=== PATIENT | female | born 1960 | race Caucasian/White ===

== ENCOUNTER 2023-03-24 12:40 | Outpatient (OUT) | payer OTHER, SELFPAY ==
[2023-03-24 17:20] LABS: Free T4 1.27 ng/dL (0.76-1.46)
[2023-03-24 17:22] LABS: Alanine Aminotransferase 15 U/L (14-59); Albumin Globulin Ratio 0.7; Albumin Level 3.2 g/dL (3.4-5.0); Alkaline Phosphatase 167 U/L (46-116); Aspartate Amino Transferase 15 U/L (15-37); Bilirubin Direct 0.1 mg/dL (0.0-0.2); Bilirubin Total 0.4 mg/dL (0.2-1.0); Globulin 4.4 g/dL; Thyroid Stimulating Hormone 2.628 uIU/mL (0.358-3.740); Total Protein 7.6 g/dL (6.4-8.2)
[2023-03-26 05:07] LABS: HBsAg Screen Negative (Negative); HCV Ab Non Reactive (Non Reactive); Hep A Ab, IgM Negative (Negative); Hep B Core Ab, IgM Negative (Negative)
== END 2023-03-24 12:41 | disposition home or self-care (01) ==
PROVIDERS: PCP Nurse Practitioner; Visit Provider Nurse Practitioner
DX: R74.8 Abnormal levels of other serum enzymes (principal); E03.9 Hypothyroidism, unspecified; Z20.5 Contact with and (suspected) exposure to viral hepatitis
CPT/HCPCS: 36415; 80074; 80076; 84439; 84443

== ENCOUNTER 2023-04-05 08:38 | Outpatient (OUT) | payer OTHER, SELFPAY ==
--- NOTE | 2023-04-05 08:41 | US_ITS ---
The [address] [address] Patient Name: FAUSTO KRISHNAMURTHY MRN: [id number] date: 1960 Sex: F Assigned Patient Location: US Current Patient Location: US Accession/Order Number: [id number] Exam Date: 04/05/2023 08:45 Report Date: 04/05/2023 10:21 At the request of: KATINA CORDON Procedure: US right upper quadrant EXAMINATION: US right upper quadrant HISTORY: Elevated Alkaline Phosphatase Level R74.8 COMPARISON: No relevant comparison available. TECHNIQUE: Transabdominal evaluation of the right upper quadrant. FINDINGS: LIVER: Normal size and echotexture. Color Doppler demonstrates patent hepatic veins. PORTAL VEIN: Duplex Doppler demonstrates normal hepatopetal flow pattern with flow velocity averaging 24 cm/s. GALLBLADDER: Cholecystectomy. BILIARY: No abnormal dilation or stones. Common bile duct diameter is within normal limits. PANCREASE: No visible mass, abnormal atrophy, or duct dilation. KIDNEY: No hydronephrosis. No visible mass or stones. Size: 10.2 x 4.7 x 4.9 cm IMPRESSION: 1. Unremarkable post cholecystectomy right upper quadrant ultrasound. Electronically authenticated by: HANNAH MOORE Date: 04/05/2023 10:21
== END 2023-04-05 08:39 | disposition home or self-care (01) ==
LOC: US 08:39
PROVIDERS: PCP Nurse Practitioner; Visit Provider Nurse Practitioner
DX: R74.8 Abnormal levels of other serum enzymes (principal); Z90.49 Acquired absence of other specified parts of digestive tract
CPT/HCPCS: 76705

== ENCOUNTER 2023-06-03 10:10 | Outpatient (REF) | payer OTHER, SELFPAY ==
[2023-06-03 15:14] LABS: SARS-CoV-2 Ag NEGATIVE (NEGATIVE)
[2023-06-03 15:28] LABS: Influenza Virus A Antigen Negative; Influenza Virus B Antigen Negative; Internal Control Within Normal Limits
[2023-06-03 19:03] LABS: SARS-CoV-2 NAA NOT DETECTED (NOT DETECTE)
== END 2023-06-03 10:11 | disposition home or self-care (01) ==
LOC: LAB 10:10
PROVIDERS: PCP Nurse Practitioner; Visit Provider Internal Medicine
DX: R05.1 Acute cough (principal)
CPT/HCPCS: 87635; 87804; 87811; U0003

== ENCOUNTER 2023-09-06 12:44 | Outpatient (REF) | payer OTHER, SELFPAY ==
[2023-09-06 14:27] LABS: SARS-CoV-2 Ag NEGATIVE (NEGATIVE)
[2023-09-06 15:55] LABS: SARS-CoV-2 NAA NOT DETECTED (NOT DETECTE)
--- OUTSIDE RECORDS SUMMARY | 2023-09-15 05:27 | XMS_ITS | CCD ---
Author Name Unknown Address [id number] [place] [address] Organization [facility] Care Team Providers Care Manager Transportation Planning Name Role Phone YANELIS, ESEQUIEL C Unavailable Unavailable ZAID MICHAELS Unavailable Unavail able YANELIS, ESEQUIEL C Unavailable Unavailable YANELIS, ESEQUIEL C Unavailable Unavailable YANELIS, ESEQUIEL C Unavailable Unavailable IVAN HYDE) Unavailable Unavail able IVAN HYDE) Unavailable Unavail able RIVERA PATRICIA) Unavailable Unavailable YANELIS, ESEQUIEL C Unavailable Unavailable YANELIS, ESEQUIEL C Unavailable Unavailable THOMAS DELGADILLO Unavailable Unavailable IMCA Unavailable Unavailable THOMAS DELGADILLO Unavailable Unavailable IMCA Unavailable Unavailable Aguila Malagon Unavailable Unavailable THOMAS DELGADILLO Unavailable Unavailable THOMAS DELGADILLO Unavailable Unavailable Aguila Malagon Unavailable Unavailable THOMAS DELGADILLO Unavailable Unavailmaddie Mills MD, [facility] Primary Care Provider ROSS, DARA Primary Care Unavailable ROSS, DARA Primary Care Unavailable ROSS, DARA Primary Care Unavailable ROSS, DARA Primary Care Unavailable ROSS, DARA Primary Care Unavailable RAFAEL WASHINGTON Referring Unavailab le ROSS, DARA Primary Care Unavailable ROSS, DARA Primary Care Unavailable ROSS, DARA Primary Care Unavailable ROSS, DARA Primary Care Unavailable ROSS, DARA Primary Care Unavailable ROSS, DARA Primary Care Unavailable ROSS, DARA Primary Care Unavailable ROSS, DARA Primary Care Unavailable ROSS, DARA Primary Care Unavailable ROSS, DARA Primary Care Unavailable ROSS, DARA Primary Care Unavailable ROSS, DARA Primary Care Unavailable ROSS, DARA Primary Care Unavailable ROSS, DARA Primary Care Unavailable ROSS, DARA Primary Care Unavailable ROSS, DARA Primary Care Unavailable ROSS, DARA Primary Care Unavailable ROSS, DARA Primary Care Unavailable RAFAEL WASHINGTON Referring Unavailab le ROSS, DARA Primary Care Unavailable ROSS, DARA Primary Care Unavailable Dara Mills Unavailable Unavailable Unavailable Aichholkali, Veronique Randee Unavailable Felix, Dr. Rafael Acevedo Attending [place], Dr. Rafael Acevedo Referring [place], Dr. Dara Chino Primary Care Unavailab citlalli [place], Dr. Rafael Acevedo Attending [place], Dr. Dara Chino Primary Care Unavailab citlalli [place], Dr. Rafael Acevedo Attending [facility] pablo [place], Dr. Rafael Acevedo Referring [place], Dr. Dara Chino Primary Care Unavailab le SAMSA ., OLIVER Admitting Unavailable SAMSA ., OLIVER Attending Unavailable AICHHOLZ, ACCOUNTANT SYSTEMS VERONIQUE Primary Care Unavailable DR HANNAH MOORE Consulting Unavailable SAMSA ., OLIVER Consulting Unavailable AICHHOLZ, ACCOUNTANT SYSTEMS VERONIQUE Admitting Unavailable AICHHOLZ, ACCOUNTANT SYSTEMS VERONIQUE Attending Unavailable AICHHOLZ, ACCOUNTANT SYSTEMS VERONIQUE Primary Care Unavailable AICHHOLZ, ACCOUNTANT SYSTEMS VERONIQUE Consulting Unavailable AICHHOLZ, ACCOUNTANT SYSTEMS VERONIQUE Admitting Unavailable AICHHOLZ, ACCOUNTANT SYSTEMS VERONIQUE Attending Unavailable AICHHOLZ, ACCOUNTANT SYSTEMS VERONIQUE Primary Care Unavailable AICHHOLZ, ACCOUNTANT SYSTEMS VERONIQUE Consulting Unavailable AICHHOLZ, ACCOUNTANT SYSTEMS VERONIQUE Primary Care Unavailable MARIANO SAAB Admitting Unavailable MARIANO SAAB Attending Unavailable SHILA CALLOWAY Consulting Unavailabl e Allergies Allergy Classification Reported Allergen(s) Allergy Type Date of Onset Reaction(s) Facility Sulfonamides (antibiotic) (6 sources) Sulfonamides (Antibiotic) Drug Allergy 1 [facility] (3 sources) Sulfonamides (Antibiotic); Translations: [SULFA (SULFONAMIDE ANTIBIOTICS)] Propensity to adverse reactions to drug (disorder) 7 [facility] Repository (13 sources) Sulfonamides (Antibiotic) Propensity to adverse reactions to drug 1 [facility] (4 sources) Sulfamethoxazole; Translations: [sulfa] Drug Allergy Itching [facility] 250 DO Work Phone: (1 source) Sulfonamides (Antibiotic) Drug allergy (disorder) 3 [place] Repository Medications Current Medications Medication Drug Class(es) Dates Sig (Normalized) Sig (Original) dicyclomine hydrochloride 10 mg oral capsule (19 sources) Anticholinergic Start: 03-19-2021 dicyclomine (BENTYL) 10 MG capsule 10 mg every 6 hours as needed 0 03/19/2021 Active 24 hr nicotine 0.583 mg/hr transdermal system (19 sources) Cholinergic Nicotinic Agonist apply 1 dose transdermal route every twenty-four hours nicotine (NICODERM CQ) 14 MG/24HR Place 1 patch onto the skin every 24 hours 0 Active predniSONE 20 mg oral tablet (19 sources) take 1 tablet by mouth once daily predniSONE (DELTASONE) 20 MG tablet Take 20 mg by mouth daily 3 tabs for 3 days, 2 tabs for 3 days, then 1 tab for 3 days 0 Active ticagrelor 90 mg oral tablet (19 sources) Start: 03-21-2021 take 1 tablet by mouth twice daily ticagrelor (BRILINTA) 90 MG TABS tablet Take 90 mg by mouth 2 times daily 0 03/21/2021 Active Completed/Discontinued Medications Medication Drug Class(es) Dates Sig (Normalized) Sig (Original) [id number] 200 actuat albuterol 0.09 mg/actuat metered dose inhaler (20 sources) beta2-Adrenergic Agonist Start: 07-03-2021 take 2 puff(s) by inhalation every four hours as needed Albuterol Sulfate HFA 108 (90 Base) MCG/ACT Inhalation Aerosol Solution INHALE 2 PUFFS EVERY 4 HOURS NEEDED FOR SHORTNESS OF BREATH Quantity: 18 Refills: 0 Ordered: 03-Jul-2021 DO Start : 03-Jul-2021 Active Start: 07-03-2021 take 2 puff(s) by in halation every four hours as needed Albuterol Sulfate HFA 108 (90 Base) MCG/ACT Inhalation Aerosol Solution INHALE 2 PUFFS EVERY 4 HOURS NEEDED FOR SHORTNESS OF BREATH Quantity: 18 Refills: 0 Ordered: 03-Jul-2021 DO Start : 03-Jul-2021 Active Start: 07-04-2020 Albuterol Sulf ate (2.5 MG/3ML) 0.083% Inhalation Nebulization Solution USE ONE VIAL IN NEBULIZER 4 TIMES DAILY Quantity: 360 Refills: 0 Ordered: 30-Jun-2021 DO Start : 04-Jul-2020 Active take 2 puff(s) by in halation every six hours as needed for wheezing albuterol sulfate HFA 108 (90 Base) MCG/ACT inhaler Inhale 2 puffs into the lungs every 6 hours as needed for Wheezing 0 Active aspirin 81 mg delayed release oral tablet (20 sources) Platelet Aggregation Inhibitor, Nonsteroidal Anti-inflammatory Drug take 1 tablet by mouth once daily Aspirin EC 81 MG Oral Tablet Delayed Release TAKE 1 TABLET DAILY. Quantity: 90 Refills: 3 Ordered: 06-Oct-2022 Rafael [place] DO Active atorvastatin 80 mg oral tablet (20 sources) HMG-CoA Reductase Inhibitor Start: take 1 tablet by mouth at bedtime Atorvastatin Calcium 80 MG Oral Tablet TAKE 1 TABLET Bedtime Quantity: 30 Refills: 0 Ordered: 06-Oct-2022 Rafael [place] DO Start : 21-Mar-2021 Active 60 actuat budesonide 0.16 mg/actuat / formoterol fumarate 0.0045 mg/actuat metered dose inhaler (20 sources) Corticosteroid, beta2-Adrenergic Agonist Start: take 2 puff(s) by mouth twice daily Symbicort 160-4.5 MCG/ACT Inhalation Aerosol INHALE 2 PUFFS TWICE A DAY -RINSE MOUTH AFTER USE Quantity: 10 Refills: 0 Ordered: 03-Jul-2021 DO Start : 03-Jul-2021 Active cimetidine 200 mg oral tablet (20 sources) Histamine-2 Receptor Antagonist Start: take 1 tablet by mouth twice daily as needed Cimetidine 200 MG Oral Tablet TAKE 1 TABLET TWICE DAILY NEEDED. Quantity: 0 Refills: 0 Ordered: 16-Jun-2021 DO Start : 25-Feb-2021 Active Start: 06-17-2020 take 1 tablet by kirill th once daily cimetidine (TAGAMET) 200 MG tablet Take 200 mg by mouth daily 0 06/17/2020 Active clopidogrel 75 mg oral tablet (2 sources) P2Y12 Platelet Inhibitor Start: 10-16-2021 take 1 tablet by mouth once daily Clopidogrel Bisulfate 75 MG Oral Tablet TAKE 1 TABLET Daily Quantity: 30 Refills: 0 Ordered: 29-Sep-2022 Daria Bolton Start : 16-Oct-2021 Active empagliflozin 25 mg oral tablet (20 sources) Sodium-Glucose Cotransporter 2 Inhibitor Start: 07-02-2022 take 1 tablet by mouth once daily Jardiance 25 MG Oral Tablet TAKE ONE TABLET BY MOUTH ONCE DAILY Quantity: 28 Refills: 0 Ordered: 04-Aug-2022 DO Start : 02-Jul-2022 Active Start: 03-19-2021 take 1 tablet by kirill th once daily Jardiance 10 MG Oral Tablet TAKE ONE TABLET BY MOUTH DAILY Quantity: 28 Refills: 0 Ordered: 07-Jul-2021 DO Start : 06-May-2021 Active levothyroxine sodium 0.125 mg oral tablet (20 sources) l-Thyroxine Start: 06-18-2022 take 1 tablet by mouth once daily in the morning Levothyroxine Sodium 125 MCG Oral Tablet TAKE ONE TABLET BY MOUTH ONCE DAILY IN THE MORNING 2 HOURS PRIOR TO ANY OTHER FOOD, DRINK, OR MEDICINE Quantity: 28 Refills: 0 Ordered: 04-Aug-2022 DO Start : 18-Jun-2022 Active Start: 10-08-2021 take 1 tablet by kirill th once daily Levothyroxine Sodium 112 MCG Oral Tablet TAKE ONE TABLET BY MOUTH DAILY Quantity: 19 Refills: 0 Ordered: 10-Oct-2021 DO Start : 08-Oct-2021 Active Start: 03-19-2021 levothyroxine (SYNTHROID) 100 MCG tablet Take 112 mcg by mouth daily 0 03/19/2021 Active lisinopril 2.5 mg oral tablet (20 sources) Angiotensin Converting Enzyme Inhibitor Start: 03-21-2021 take 1 tablet by mouth once daily Lisinopril 2.5 MG Oral Tablet TAKE 1 TABLET Daily Quantity: 30 Refills: 0 Ordered: 06-Oct-2022 Rafael [place] DO Start : 21-Mar-2021 Active metoprolol tartrate 25 mg oral tablet (20 sources) beta-Adrenergic Gary Start: 03-21-2021 take 1 tablet by mouth twice daily Metoprolol Tartrate 25 MG Oral Tablet TAKE 1 TABLET Twice daily Quantity: 60 Refills: 0 Ordered: 06-Oct-2022 Rafael [place] DO Start : 21-Mar-2021 Active Start: 03-21-2021 take 1 tablet by kirill th once daily metoprolol tartrate (LOPRESSOR) 25 MG tablet Take 25 mg by mouth daily 0 03/21/2021 Active montelukast 10 mg oral tablet (20 sources) Leukotriene Receptor Antagonist Start: 07-07-2022 take 1 tablet by mouth once daily Montelukast Sodium 10 MG Oral Tablet TAKE ONE TABLET BY MOUTH DAILY Quantity: 28 Refills: 0 Ordered: 31-Aug-2022 DO Start : 07-Jul-2022 Active Start: 03-19-2021 take 1 tablet by kirill th once daily montelukast (SINGULAIR) 10 MG tablet Take 10 mg by mouth daily 0 03/19/2021 Active nitroglycerin 0.4 mg sublingual tablet (20 sources) Nitrate Vasodilator Start: 03-21-2021 Nitroglycerin 0.4 MG Sublingual Tablet Sublingual PLACE 1 TABLET UNDER YOUR TONGUE EVERY 5 MINUTES NEEDED FOR CHEST PAIN FOR 3 DOSES ONLY. IF NO RELIEF, CALL 911 Quantity: 25 Refills: 0 Ordered: 21-Mar-2021 DO Start : 21-Mar-2021 Active pantoprazole 40 mg delayed release oral tablet (20 sources) Proton Pump Inhibitor Start: 07-30-2022 take 1 tablet by mouth every twelve hours Pantoprazole Sodium 40 MG Oral Tablet Delayed Release TAKE ONE TABLET BY MOUTH EVERY 12 HOURS Quantity: 56 Refills: 0 Ordered: 31-Aug-2022 DO Start : 30-Jul-2022 Active Start: 03-19-2021 take 1 tablet by kirill th twice daily pantoprazole (PROTONIX) 40 MG tablet Take 40 mg by mouth 2 times daily 0 03/19/2021 Active pioglitazone 15 mg oral tablet (4 sources) Peroxisome Proliferator Receptor alpha Agonist, Peroxisome Proliferator Receptor gamma Agonist, Thiazolidinedione Start: 10-08-2021 take 1 tablet by mouth once daily Pioglitazone HCl - 15 MG Oral Tablet TAKE ONE TABLET BY MOUTH ONCE DAILY Quantity: 19 Refills: 0 Ordered: 10-Oct-2021 DO Start : 08-Oct-2021 Active sucralfate 1000 mg oral tablet (20 sources) Aluminum Complex Start: 03-19-2021 take 1 tablet by mouth three times daily Sucralfate 1 GM Oral Tablet TAKE ONE TABLET BY MOUTH THREE TIMES A DAY Quantity: 84 Refills: 0 Ordered: 04-Aug-2021 DO Start : 30-Jul-2021 Active Problems Active Problems Problem Classification Problem Date Documented Date Episodic/Chronic Acute myocardial infarction (3 sources) Myocardial infarction; Translations: [Acute myocardial infarction of unspecified site, episode of care unspecified] Chronic Chronic obstructive pulmonary disease and bronchiectasis (5 sources) Chronic obstructive pulmonary disease, unspecified; Translations: [Chronic obstructive lung disease] Onset: 07-26-2017 Chronic Coronary atherosclerosis and other heart disease (5 sources) Coronary arteriosclerosis; Translations: [Coronary atherosclerosis of unspecified type of vessel, douglas or graft] Chronic Diabetes mellitus without complication (5 sources) Diabetes mellitus; Translations: [Diabetes mellitus without mention of complication, type II or unspecified type, not stated as uncontrolled] Onset: 01-20-2023 Chronic Disorders of lipid metabolism (4 sources) Hyperlipidemia; Translations: [Other and unspecified hyperlipidemia] Chronic Disorders of teeth and jaw (5 sources) Dental abscess; Translations: [Periapical abscess without sinus] Onset: 01-19-2023 Episodic Esophageal disorders (1 source) Gastro-esophageal reflux disease without esophagitis; Translations: [GERD WITHOUT ESOPHAGITIS] Onset: 01-20-2023 Chronic Essential hypertension (4 sources) Benign essential hypertension; Translations: [Benign essential hypertension] Chronic Menopausal disorders (1 source) Hormone replacement therapy; Translations: [HORMONE REPLACEMENT THERAPY] Onset: 01-20-2023 Episodic Osteoarthritis (1 source) Primary osteoarthritis, right ankle and foot; Translations: [Primary osteoarthritis, right ankle and foot] Onset: 03-17-2018 Chronic Other aftercare (1 source) Other casino cage manager (current) drug therapy; Translations: [OTH GARMENT TAG STRINGER CURRENT DRUG THERAPY] Onset: 01-20-2023 Episodic Other connective tissue disease (1 source) Peroneal tendinitis, right leg; Translations: [Peroneal tendinitis, right leg] Onset: 03-17-2018 Episodic Other female genital disorders (1 source) 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; Translations: [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] Onset: 07-26-2017 Chronic Other nervous system disorders (1 source) Atypical facial pain; Translations: [ATYPICAL FACIAL PAIN] Onset: 01-20-2023 Episodic Other nutritional; endocrine; and metabolic disorders (3 sources) Obesity; Translations: [Obesity, unspecified] Chronic Other nutritional; endocrine; and metabolic disorders (1 source) Overweight in adulthood with body mass index of 25 or more but less than 30; Translations: [Overweight] Episodic Substance-related disorders (8 sources) Smokes tobacco daily; Translations: [Tobacco use disorder] Onset: 09-01-2022 Chronic Comment on above: 6 CIGS A DAY; Thyroid disorders (9 sources) Hypothyroidism; Translations: [Unspecified acquired hypothyroidism] Onset: 06-17-2022 Ch ronic Unclassified (2 sources) Unknown / UNK(Unknown) Onset: 06-07-2017 Past or Other Problems Problem Classification Problem Date Documented Da te Episodic/Chronic Unclassified (1 source) Peroneal tendinitis, right leg Onset: 03-17-2018 Results Test Name Value Interpretation Reference Range Facil ity Office Visit (Cardiology)on 10-06-2022 Follow-up visit Diagnoses/Problems Assessed History of PTCA (V45.82) (Z98.61) CAD (coronary artery disease) (414.00) (I25.10) Hyperlipidemia (272.4) (E78.5) Diabetes mellitus (250.00) (E11.9) COPD (chronic obstructive pulmonary disease) (496) (J44.9) Overweight with body mass index (BMI) of 29 to 29.9 in adult (278.02,V85.25) (E66.3,Z68.29) Current every day smoker (305.1) (F17.200) 6 CIGS A DAY History of AK (myocardial infarction) (412) (I25.2) Benign essential hypertension (401.1) (I10) Dental abscess (522.5) (K04.7) Orders Benign essential hypertension Renew: Lisinopril 2.5 MG Oral Tablet; TAKE 1 TABLET Daily Benign essential hypertension, CAD (coronary artery disease) Renew: Metoprolol Tartrate 25 MG Oral Tablet; TAKE 1 TABLET Twice daily CAD (coronary artery disease) Renew: Aspirin EC 81 MG Oral Tablet Delayed Release; TAKE 1 TABLET DAILY Hyperlipidemia Renew: Atorvastatin Calcium 80 MG Oral Tablet; TAKE 1 TABLET Bedtime Overweight with body mass index (BMI) of 29 to 29.9 in adult Healthy Weight Tips; Status:Complete - Retrospective Authorization; Done: 06Oct2022 Some eating tips that can help you lose weight.; Status:Complete - Retrospective Authorization; Done: 06Oct2022 SocHx: Current every day smoker You need to stop smoking. Though it is not easy, more than half of all adult smokers have quit. We encourage you to write down all the reasons you should quit smoking and set a quit date for yourself. Ask us how we can help. You may also call 6-358-ZXNH-NOW for free resources and assistance.; Status:Complete - Retrospective Authorization; Done: 06Oct2022 Tobacco Use Screening; Status:Complete; Done: 06Oct2022 Patient Instructions Please bring all medicines, vitamins, and herbal supplements with you when you come to the office. Prescriptions will not be filled unless you are compliant with your follow up appointments or have a follow up appointment scheduled as per instruction of your physician. Refills should be requested at the time of your visit. Patient is cleared for an oral procedure from a cardiac standpoint. Follow up in 1 year Chief Complaint FAUSTO CORRIGAN is being seen for a 6 month follow-up of. Patient is a 62-year-old female returns for follow-up and doing well other than issues with ongoing dental abscess and the need for removal of 5 teeth. She has a history of previous inferior AK in February 2021 (late presenting AK) with PCI of the RCA at that time. She also has underlying diabetes, hypertension, hyperlipidemia, obesity and ongoing tobacco counseled her for 3 to 5 minutes today on tobacco cessation and importantly regards to healing and dental hygiene. She has no angina, hospitalizations or heart failure Remains on appropriate guideline directed medical therapies however at this time would be most appropriate to come off her clopidogrel as its been over a year and a half. Will follow-up in 1 year, recommend tobacco cessation strongly, discontinue clopidogrel Surgical History Problems History of Appendectomy History of Cardiac catheterization with stent placement History of Cholecystectomy History of Complete colonoscopy History of Foot surgery History of Hysterectomy History of Kidney surgery History of Knee surgery Current Meds Medication NameInstruction Albuterol Sulfate (2.5 MG/3ML) 0.083% Inhalation Nebulization SolutionUSE ONE VIAL IN NEBULIZER 4 TIMES DAILY Albuterol Sulfate HFA 108 (90 Base) MCG/ACT Inhalation Aerosol SolutionINHALE 2 PUFFS EVERY 4 HOURS NEEDED FOR SHORTNESS OF BREATH Aspirin EC 81 MG Oral Tablet Delayed ReleaseTAKE 1 TABLET DAILY. Atorvastatin Calcium 80 MG Oral TabletTAKE 1 TABLET Bedtime Cimetidine 200 MG Oral TabletTAKE 1 TABLET TWICE DAILY NEEDED. Clopidogrel Bisulfate 75 MG Oral TabletTAKE 1 TABLET Daily Jardiance 25 MG Oral TabletTAKE ONE TABLET BY MOUTH ONCE DAILY Levothyroxine Sodium 125 MCG Oral TabletTAKE ONE TABLET BY MOUTH ONCE DAILY IN THE MORNING 2 HOURS PRIOR TO ANY OTHER FOOD, DRINK, OR MEDICINE Lisinopril 2.5 MG Oral TabletTAKE 1 TABLET Daily Metoprolol Tartrate 25 MG Oral TabletTAKE 1 TABLET Twice daily Montelukast Sodium 10 MG Oral TabletTAKE ONE TABLET BY MOUTH DAILY Nitroglycerin 0.4 [address]t Sub[address]ual[address] 1 TABLET UNDER YOUR TONGUE EVERY 5 MINUTES NEEDED FOR CHEST PAIN FOR 3 DOSES ONLY. IF NO RELIEF, CALL 911 Pantoprazole Sodium 40 MG Oral Tablet Delayed ReleaseTAKE ONE TABLET BY MOUTH EVERY 12 HOURS Pioglitazone HCl - 15 MG Oral TabletTAKE ONE TABLET BY MOUTH ONCE DAILY Sucralfate 1 GM Oral TabletTAKE ONE TABLET BY MOUTH THREE TIMES A DAY Symbicort 160-4.5 MCG/ACT Inhalation AerosolINHALE 2 PUFFS TWICE A DAY -RINSE MOUTH AFTER USE Patient did not bring medication list or bottles. Updated verbally with patient Allergies Medication sulfa Allergy; Itching; Updated By: Elsa Ambrocio; 10/06/2022 1:37:01 PM Social History Problems Caffeine use (V49.89) (Z78.9) POP DAILY Current (more content not included)... Normal [employer] Tobacco Screening.on 023 Adult depression screening assessment No -[facility] 250 DO Work Phone: Fall risk assessment c) Not medically indicated [facility] 250 DO Work Phone: Tobacco use status [facility] a) Yes [facility] 250 DO Work Phone: Tobacco Screening. Yes [facility] 250 DO Work Phone: CT LUNG CANCER SCREENINGon 1 11-02-2021 CT LUNG CANCER SCREENING EXAMINATION: CT LUNG CANCER SCREENING HISTORY: Nicotine dependence COMPARISON: CT chest 09/04/2021 TECHNIQUE: Axial, Coronal, and Sagittal images were created without the administration of IV contrast material. Dose reduction techniques were achieved by using automated exposure control and/or adjustment of mA and/or kV according to patient size and/or use of iterative reconstruction technique. FINDINGS: LUNGS: Mild emphysematous changes and a few scattered areas of mild scarring. No mass, suspicious nodules, or infiltrates. PLEURA: No mass, effusion, or pneumothorax. VASCULATURE: No abnormality. LARRY: No mass or pathologic adenopathy. MEDIASTINUM: No mass or pathologic adenopathy. CARDIAC: No enlargement, pericardial thickening, or significant calcification. AORTA: No aneurysm or dissection. CHEST WALL: No mass or axillary adenopathy BONES: No bone lesion or fracture. LIMITED ABDOMEN: No suspicious findings. Limited images of the upper abdomen. OTHER: Negative. IMPRESSION: 1. Lung-RADS 2- Benign Appearance or Behavior. Nodules with a very low likelihood of becoming a clinically active cancer due to size or lack of growth. Follow-up CT Chest in 1 year. Electronically authenticated by: HANNAH MOORE Date: 2022-09-01 10:57 Normal [facility] l CBC AUTO DIFFon 06-17-2022 BASO # 0.1 103/ul Normal 0.0-0.1 [facility] Comment on above: Performed By: #### C BC #### [facility] [address] [place] [address] Dr. Oneal Vieyra Basophils/100 WBC (Bld) 0.5 % Normal 0.2-2.0 [facility] Comment on above: Performed By: #### C BC #### [facility] [address] [address] [address] Oneal Vieyra EO # 0.1 103/ul Normal 0.0-0.7 [facility] Comment on above: Performed By: #### C BC #### [facility] [address] [place] [address] Dr. Oneal Vieyra Eosinophils/100 WBC (Bld) 1.3 % Normal 0.9-7.0 [place] Comment on above: Performed By: #### C BC #### [facility] [address] [address] [address] Oneal Vieyra Erythrocyte distribution wid th (RBC) [Ratio] 13.4 % Normal 11.0-15.0 [facility] Comment on above: Performed By: #### C BC #### [facility] [address] [place] [address] Dr. Oneal Vieyra Hematocrit (Bld) [Volume fraction] 51.8 % Critically high 36.0-48.0 [facility] Comment on above: Performed By: #### C BC #### [facility] [address] [address] [address] Oneal Vieyra Hemoglobin (Bld) [Mass/Vol] 16.1 g/dL Critically high 12. 0-16.0 [place] Comment on above: Performed By: #### C BC #### [facility] [address] [address] [address] Oneal Vieyra IG # 0.03 10e3/ul Normal 0.00-0.03 [place] Comment on above: Performed By: #### C BC #### [facility] [address] [address] [address] Oneal Vieyra IG % 0.3 % Normal 0.0-0.5 [facility] Comment on above: Performed By: #### C BC #### [facility] [address] [place] [address] Dr. Oneal Vieyra LYMPH # 3.7 103/ul Normal 1.2-3.8 [facility] Comment on above: Performed By: #### C BC #### [facility] [address] [place] [address] Dr. Oneal Vieyra Lymphocytes/100 WBC (Bld) 34.5 % Normal 20.5-60.0 [place] Comment on above: Performed By: #### C BC #### [facility] [address] [place] [address] Dr. Oneal Vieyra MANUAL DIFF REQ NO Normal [facility] Comment on above: Performed By: #### C BC #### [facility] [address] [place] [address] Dr. Oneal Vieyra MCH (RBC) [Entitic mass] 29.7 pg Normal 26.7-34.0 [facility] Comment on above: Performed By: #### C BC #### [facility] [address] [place] [address] Dr. Oneal Vieyra MCHC (RBC) [Mass/Vol] 31.1 g/dL Normal 29.9-35.2 [facility] Comment on above: Performed By: #### C BC #### [facility] [address] [place] [address] Dr. Oneal Vieyra MCV (RBC) [Entitic vol] 95.6 fL Normal 81.0-99.0 [facility] Comment on above: Performed By: #### C BC #### [facility] [address] [place] [address] Dr. Oneal Vieyra MONO # 0.8 103/ul Normal 0.3-0.[address] [facility] Comment on above: Performed By: #### C BC #### [facility] [address] [place] [address] Dr. Oneal Vieyra Monocytes/100 WBC (Bld) 7.6 % Normal 1.7-12.0 [facility] Comment on above: Performed By: #### C BC #### [facility] [address] [place] [address] Dr. Oneal Vieyra NEUT # 5.9 103/ul Normal 1.4-6.[address] [facility] Comment on above: Performed By: #### C BC #### [facility] [address] [place] [address] Dr. Oneal Vieyra Neutrophils/100 WBC (Bld) 55.8 % Normal 43.0-75.0 [place] Comment on above: Performed By: #### C BC #### [facility] [address] [place] [address] Dr. Oneal Vieyra Platelet mean volume (Bld) [ Entitic vol] 12.1 fL Normal 9.5-13.5 [facility] Comment on above: Performed By: #### C BC #### [facility] [address] [place] [address] Dr. Oneal Vieyra PLT 224 103/ul Normal 150-450 [facility] Comment on above: Performed By: #### C BC #### [facility] [address] [place] [address] Dr. Oneal Vieyra RBC 5.42 106/ul Critically high 4.20-5.40 [facility] Comment on above: Performed By: #### C BC #### [facility] [address] [place] [address] Dr. Oneal Vieyra WBC 10.6 103/ul Normal 4.0-11.0 [place] Comment on above: Performed By: #### C BC #### [facility] [address] [place] [address] Dr. Oneal Vieyra FREE T4on 06-17-2022 Free T4 [Mass/Vol] 0.98 ng/dL Normal 0.76-1.46 [facility] Comment on above: Performed By: #### F T4 #### [facility] [address] [place] [address] Dr. Oneal Vieyra GLYCOHEMOGLOBIN A1Con 2021 ADA RECOMMENDATION SEE BELOW Normal [facility] Comment on above: Result Comment: ADA RECOMMENDED LIMIT 4.0 - 6.0 ADA THERAPEUTIC TARGET < 7.0 ACTION SUGGESTED > 7.0 Performed By: #### A 1C #### [facility] [address] [place] [address] Dr. Oneal Vieyra Glucose [Mass/Vol] 146 mg/dL Normal [facility] Comment on above: Performed By: #### A 1C #### [facility] [address] [place] [address] Dr. Oneal Vieyra HbA1c (Bld) [Mass fraction] 6.7 % Critically high 4.5 -6.2 [place] Comment on above: Performed By: #### A 1C #### [facility] [address] [place] [address] Dr. Oneal Vieyra LIPID PROFILEon 06-17-2022 CHOL-HDL RATIO NORM SEE BELOW Normal [facility] Comment on above: Result Comment: 3.3 - 4.4 LOW RISK 4.4 - 7.1 AVERAGE RISK 7.1 - 11.0 MODERATE RISK >11.0 HIGH RISK Performed By: #### L IPID, TSH, CMP #### [facility] [address] [place] [address] Dr. Oneal Vieyra Cholesterol [Mass/Vol] 161 mg/dL Normal <=200 [facility] Comment on above: Performed By: #### L IPID, TSH, CMP #### [facility] [address] [address] [address] Oneal Vieyra Cholesterol in HDL [Mass/Vol] 33 mg/dL Critically low 40 -60 [place] Comment on above: Performed By: #### L IPID, TSH, CMP #### [facility] [address] [address] [address] Oneal Vieyra Cholesterol in LDL [Mass/Vol] 63.8 mg/dL Normal [facility] Comment on above: Performed By: #### L IPID, TSH, CMP #### [facility] [address] [address] [address] Oneal Vieyra Cholesterol.total/Cholestero l in HDL [Mass ratio] 4.9 {ratio} Normal [facility] Comment on above: Performed By: #### L IPID, TSH, CMP #### [facility] [address] [address] [address] Oneal Vieyra HDL NORMAL > or = 60 mg/dl - LO W CARDIOVASCULAR RISK <40 mg/dl - HIGH CARDIOVASCULAR RISK Normal [place] Comment on above: Performed By: #### L IPID, TSH, CMP #### [facility] [address] [address] [address] Oneal Vieyra LDL CALC NORMAL SEE BELOW Normal [facility] Comment on above: Result Comment: <100 mg/dl OPTIMAL 100 - 129 mg/dl NEAR OR ABOVE OPTIMAL 130 - 159 mg/dl BORDERLINE HIGH 160 - 189 mg/dl HIGH >190 mg/dl VERY HIGH Performed By: #### L IPID, TSH, CMP #### [facility] [address] [address] [address] Oneal Vieyra Triglyceride [Mass/Vol] 321 mg/dL Critically high <=150 [facility] Comment on above: Performed By: #### L IPID, TSH, CMP #### [facility] [address] [address] [address] Oneal Vieyra VLDL CALC 64.2 mg/dL Normal [facility] Comment on above: Performed By: #### L IPID, TSH, CMP #### [facility] [address] [address] [address] Oneal Vieyra PROF 14(COMP METB)on 022 Albumin [Mass/Vol] 3.7 g/dL Normal 3.4-5.0 [facility] Comment on above: Performed By: #### L IPID, TSH, CMP #### [facility] [address] [address] [address] Oneal Vieyra Albumin/Globulin [Mass ratio] 0.9 {ratio} Normal [place] Comment on above: Performed By: #### L IPID, TSH, CMP #### [facility] [address] [address] [address] Oneal Vieyra ALP [Catalytic activity/Vol] 171 U/L Critically high 46 -116 [place] Comment on above: Performed By: #### L IPID, TSH, CMP #### [facility] [address] [address] [address] Oneal Vieyra ALT [Catalytic activity/Vol] 19 U/L Normal 14-59 [place] Comment on above: Performed By: #### L IPID, TSH, CMP #### [facility] [address] [address] [address] Oneal Vieyra Anion gap [Moles/Vol] 5.6 mmol/L Normal [place] Comment on above: Performed By: #### L IPID, TSH, CMP #### [facility] [address] [address] [address] Oneal Vieyra AST [Catalytic activity/Vol] 13 U/L Critically low 15- 37 [place] Comment on above: Performed By: #### L IPID, TSH, CMP #### [facility] [address] [address] [address] Oneal Vieyra Bilirubin [Mass/Vol] 0.5 mg/dL Normal 0.2-1.0 [place] Comment on above: Performed By: #### L IPID, TSH, CMP #### [facility] [address] [address] [address] Oneal Vieyra Calcium [Mass/Vol] 9.1 mg/dL Normal 8.5-10.1 [facility] Comment on above: Performed By: #### L IPID, TSH, CMP #### [facility] [address] [address] [address] Oneal Vieyra Chloride [Moles/Vol] 105 mmol/L Normal 98-107 [place] Comment on above: Performed By: #### L IPID, TSH, CMP #### [facility] [address] [place] [address] Dr. Oneal Vieyra CO2 [Moles/Vol] 35.3 mmol/L Critically high 21.0-32.0 [place] Comment on above: Performed By: #### L IPID, TSH, CMP #### [facility] [address] [place] [address] Dr. Oneal Vieyra Creatinine [Mass/Vol] 0.88 mg/dL Normal 0.55-1.02 [place] Comment on above: Performed By: #### L IPID, TSH, CMP #### [facility] [address] [place] [address] Dr. Oneal Vieyra EGFR-AF LAO >60 Normal >=60 [facility] Comment on above: Performed By: #### L IPID, TSH, CMP #### [facility] [address] [place] [address] Dr. Oneal Vieyra EGFR-NON AF LAO >60 Normal >=60 [place] Comment on above: Performed By: #### L IPID, TSH, CMP #### [facility] [address] [place] [address] Dr. Oneal Vieyra Globulin (S) [Mass/Vol] 4.3 g/dL Normal [facility] Comment on above: Performed By: #### L IPID, TSH, CMP #### [facility] [address] [place] [address] Dr. Oneal Vieyra Glucose [Mass/Vol] 93 mg/dL Normal 74-106 [facility] Comment on above: Performed By: #### L IPID, TSH, CMP #### [facility] [address] [place] [address] Dr. Oneal Vieyra Potassium [Moles/Vol] 3.9 mmol/L Normal 3.5-5.1 [facility] Comment on above: Performed By: #### L IPID, TSH, CMP #### [facility] [address] [place] [address] Dr. Oneal Vieyra Protein [Mass/Vol] 8.0 g/dL Normal 6.4-8.2 [facility] Comment on above: Performed By: #### L IPID, TSH, CMP #### [facility] [address] [place] [address] Dr. Oneal Vieyra Sodium [Moles/Vol] 142 mmol/L Normal 136-145 [facility] Comment on above: Performed By: #### L IPID, TSH, CMP #### [facility] [address] [place] [address] Dr. Oneal Vieyra Urea nitrogen [Mass/Vol] 15.0 mg/dL Normal 7.0-18.0 [place] Comment on above: Performed By: #### L IPID, TSH, CMP #### [facility] [address] [place] [address] Dr. Oneal Vieyra Urea nitrogen/Creatinine [Mass ratio] 17.0 mg/mg Normal [place] Comment on above: Performed By: #### L IPID, TSH, CMP #### [facility] [address] [place] [address] Dr. Oneal Vieyra TSHon 06-17-2022 TSH 9.403 uIU/mL Critically high 0.358-3.740 [facility] Comment on above: Performed By: #### L IPID, TSH, CMP #### [facility] [address] [place] [address] Dr. Oneal Vieyra UA RANDOM W/MICROSCOPICon BACTERIA NONE SEEN Normal NONE SEEN [facility] Comment on above: Performed By: #### U AMIC #### [facility] [address] [place] [address] Dr. Oneal Vieyra Bilirubin Ql (U) Negative Normal NEGATIVE [facility] Comment on above: Performed By: #### U AMIC #### [facility] [address] [address] [address] Oneal Vieyra CAST NONE SEEN Normal NONE SEEN [facility] Comment on above: Performed By: #### U AMIC #### [facility] [address] [address] [address] Oneal Vieyra Clarity (U) CLEAR Normal CLEAR [facility] Comment on above: Performed By: #### U AMIC #### [facility] [address] [address] [address] Oneal Vieyra Color (U) LT. YELLOW Normal YELLOW [facility] Comment on above: Performed By: #### U AMIC #### [facility] [address] [place] [address] Dr. Oneal Vieyra Crystals LM Nom (Urine sed) NONE SEEN Normal NONE SEE N [facility] Comment on above: Performed By: #### U AMIC #### [facility] [address] [place] [address] Dr. Oneal Vieyra Epithelial cells LM Ql (Urine sed) FEW Abnormal N ONE SEEN /RARE [facility] Comment on above: Performed By: #### U AMIC #### [facility] [address] [place] [address] Dr. Oneal Vieyra Glucose Ql (U) >1000 Abnormal NEGATIVE [facility] Comment on above: Performed By: #### U AMIC #### [facility] [address] [place] [address] Dr. Oneal Vieyra Hemoglobin Ql (U) SMALL Abnormal NEGATIVE [facility] Comment on above: Performed By: #### U AMIC #### [facility] [address] [place] [address] Dr. Oneal Vieyra Ketones Ql (U) Negative Normal NEGATIVE [facility] Comment on above: Performed By: #### U AMIC #### [facility] [address] [place] [address] Dr. Oneal Vieyra LEUKOCYTES Negative Normal NEGATIVE [facility] Comment on above: Performed By: #### U AMIC #### [facility] [address] [place] [address] Dr. Oneal Vieyra MUCOUS NONE SEEN Normal NONE SEEN [facility] Comment on above: Performed By: #### U AMIC #### [facility] [address] [place] [address] Dr. Oneal Vieyra Nitrite Ql (U) Negative Normal NEGATIVE [facility] Comment on above: Performed By: #### U AMIC #### [facility] [address] [place] [address] Dr. Oneal Vieyra pH (U) 6.0 [pH] Normal 5-9 [facility] Comment on above: Performed By: #### U AMIC #### [facility] [address] [place] [address] Dr. Oneal Vieyra RBC 0-2 Normal 0-2 [facility] Comment on above: Performed By: #### U AMIC #### [facility] [address] [place] [address] Dr. Oneal Vieyra SPEC GRAVITY <=1.005 Abnormal 1.005-<=1.025 [facility] Comment on above: Performed By: #### U AMIC #### [facility] [address] [place] [address] Dr. Oneal Vieyra UA PROTEIN Negative Normal NEGATIVE/ TRACE [facility] Comment on above: Performed By: #### U AMIC #### [facility] [address] [place] [address] Dr. Oneal Vieyra Urobilinogen Qn (U) 0.2 {Ashwini'U}/dL Normal 0.2 - 1. 0 [facility] Comment on above: Performed By: #### U AMIC #### [facility] [address] [place] [address] Dr. Oneal Vieyra WBC NONE SEEN Normal NONE SEEN [facility] Comment on above: Performed By: #### U AMIC #### [facility] [address] [place] [address] Dr. Oneal Vieyra MICROALBUMIN, RAND URon 06-1 mALB <1.3 Normal <=30.[address] [facility] Comment on above: Performed By: #### M ALBR #### [facility] [address] [place] [address] Dr. Oneal Vieyra UA RANDOM W/MICROSCOPICon BACTERIA NONE SEEN Normal NONE SEEN [facility] Comment on above: Performed By: #### U AMIC #### [facility] [address] [place] [address] Dr. Oneal Vieyra Bilirubin Ql (U) Negative Normal NEGATIVE [facility] Comment on above: Performed By: #### U AMIC #### [facility] [address] [place] [address] Dr. Oneal Vieyra CAST NONE SEEN Normal NONE SEEN [facility] Comment on above: Performed By: #### U AMIC #### [facility] [address] [place] [address] Dr. Oneal Vieyra Clarity (U) CLEAR Normal CLEAR [facility] Comment on above: Performed By: #### U AMIC #### [facility] [address] [place] [address] Dr. Oneal Vieyra Color (U) YELLOW Normal YELLOW [facility] Comment on above: Performed By: #### U AMIC #### [facility] [address] [place] [address] Dr. Oneal Vieyra Crystals LM Nom (Urine sed) NONE SEEN Normal NONE SEE N [facility] Comment on above: Performed By: #### U AMIC #### [facility] [address] [place] [address] Dr. Oneal Vieyra Epithelial cells LM Ql (Urine sed) FEW Abnormal N ONE SEEN /RARE [facility] Comment on above: Performed By: #### U AMIC #### [facility] [address] [place] [address] Dr. Oneal Vieyra Glucose Ql (U) >1000 Abnormal NEGATIVE [facility] Comment on above: Performed By: #### U AMIC #### [facility] [address] [place] [address] Dr. Oneal Vieyra Hemoglobin Ql (U) SMALL Abnormal NEGATIVE [facility] Comment on above: Performed By: #### U AMIC #### [facility] [address] [address] [address] Oneal Vieyra Ketones Ql (U) Negative Normal NEGATIVE [facility] Comment on above: Performed By: #### U AMIC #### [facility] [address] [place] [address] Dr. Oneal Vieyra LEUKOCYTES Negative Normal NEGATIVE [facility] Comment on above: Performed By: #### U AMIC #### [facility] [address] [address] [address] Oneal Vieyra MUCOUS NONE SEEN Normal NONE SEEN [facility] Comment on above: Performed By: #### U AMIC #### [facility] [address] [place] [address] Dr. Oneal Vieyra Nitrite Ql (U) Negative Normal NEGATIVE [facility] Comment on above: Performed By: #### U AMIC #### [facility] [address] [place] [address] Dr. Oneal Vieyra pH (U) 5.5 [pH] Normal 5-[address] [facility] Comment on above: Performed By: #### U AMIC #### [facility] [address] [place] [address] Dr. Oneal Vieyra RBC 0-2 Normal 0-[address] [facility] Comment on above: Performed By: #### U AMIC #### [facility] [address] [place] [address] Dr. Oneal Vieyra SPEC GRAVITY 1.020 Normal 1.005-<=1.025 [facility] Comment on above: Performed By: #### U AMIC #### [facility] [address] [place] [address] Dr. Oneal Vieyra UA PROTEIN Negative Normal NEGATIVE/ TRACE [facility] Comment on above: Performed By: #### U AMIC #### [facility] [address] [place] [address] Dr. Oneal Vieyra Urobilinogen Qn (U) 0.2 {Ashwini'U}/dL Normal 0.2 - 1. 0 [facility] Comment on above: Performed By: #### U AMIC #### [facility] [address] [place], [place] [address] Dr. Oneal Vieyra WBC NONE SEEN Normal NONE SEEN [facility] Comment on above: Performed By: #### U AMIC #### [facility] [address] [place], [place] [address] Dr. Oneal Vieyra Office Visit (Cardiology)on 10-16-2021 Follow-up visit Diagnoses/Problems Assessed CAD (coronary artery disease) (414.00) (I25.10) STEMI (ST elevation myocardial infarction) (410.90) (I21.3) Hyperlipidemia (272.4) (E78.5) Benign essential hypertension (401.1) (I10) Current every day smoker (305.1) (F17.200) 6 CIGS A DAY Class 1 obesity with body mass index (BMI) of 30.0 to 30.9 in adult (278.00,V85.30) (E66.9,Z68.30) Orders CAD (coronary artery disease) Start: Clopidogrel Bisulfate 75 MG Oral Tablet (Plavix); TAKE 1 TABLET DAILY. ( first dose is 300 mg a total of 4 tablets) Class 1 obesity with body mass index (BMI) of 30.0 to 30.9 in adult Healthy Weight Tips; Status:Complete - Retrospective Authorization; Done: 16Oct2021 SocHx: Current every day smoker Tobacco Use Screening; Status:Complete; Done: 16Oct2021 QUITTING SMOKING OR TOBACCO USE - PATIENT AND FAMILY EDUCATION; Status:Active - Retrospective Authorization; Requested for:16Oct2021; Tobacco Use Screening; Status:Complete; Done: 16Oct2021 Unlinked Stop: Brilinta 90 MG Oral Tablet Patient Instructions By signing my name below, I, Carlos Fan LPN, attest that this documentation has been prepared under the direction and in the presence of Dr. Rafael Washington DO. All medical record entries made by the Manuelibsathya were at my direction and personally dictated by me. I have reviewed the chart and agree that the record accurately reflects my personal performance of the history, physical exam, discussion and plan. Please bring all medicines, vitamins, and herbal supplements with you when you come to the office. Prescriptions will not be filled unless you are compliant with your follow up appointments or have a follow up appointment scheduled as per instruction of your physician. Refills should be requested at the time of your visit. Follow up in 6 months Chief Complaint FAUSTO CORRIGAN is being seen for a 6 month follow-up of. Patient is a 61-year-old female who returns for follow-up. She had inferior ST elevation [place] with primary revascularization of the RCA in February 2021. This is my first time seeing her back since her event she did see nurse practitioner once. She does have issues with Brilinta associated dyspnea/shortness of breath. She has underlying hypertension, diabetes mellitus, hyperlipidemia, obesity and current smoker approximately 2 to 3 cigarettes daily. We counseled her for 3 minutes in smoking cessation. She otherwise remains relatively sedentary, she has 8 sessions of cardiac rehab left. Recommendations, continue current therapies, switch from Brilinta to clopidogrel given her significant dyspnea, we will follow-up in 6 months Surgical History Problems History of Appendectomy History of Cardiac catheterization with stent placement History of Cholecystectomy History of Complete colonoscopy History of Foot surgery History of Hysterectomy History of Kidney surgery History of Knee surgery Current Meds Medication NameInstruction Albuterol Sulfate (2.5 MG/3ML) 0.083% Inhalation Nebulization SolutionUSE ONE VIAL IN NEBULIZER 4 TIMES DAILY Albuterol Sulfate HFA 108 (90 Base) MCG/ACT Inhalation Aerosol SolutionINHALE 2 PUFFS EVERY 4 HOURS NEEDED FOR SHORTNESS OF BREATH Aspirin EC 81 MG Oral Tablet Delayed ReleaseTAKE 1 TABLET DAILY. Atorvastatin Calcium 80 MG Oral TabletTAKE ONE TABLET BY MOUTH IN THE EVENING FOR 30 DAYS Brilinta 90 MG Oral TabletTAKE1 ONE TABLET BY MOUTH TWICE A DAY FOR 90 DAYS Cimetidine 200 MG Oral TabletTAKE 1 TABLET TWICE DAILY NEEDED. Jardiance 10 MG Oral TabletTAKE ONE TABLET BY MOUTH DAILY Levothyroxine Sodium 112 MCG Oral TabletTAKE ONE TABLET BY MOUTH DAILY Lisinopril 2.5 MG Oral TabletTAKE ONE TABLET BY MOUTH DAILY FOR 30 DAYS Metoprolol Tartrate 25 MG Oral TabletTAKE ONE TABLET BY MOUTH TWICE A DAY FOR 30 DAYS Nitroglycerin 0.4 MG Sublingual Tablet SublingualPLACE 1 TABLET UNDER YOUR TONGUE EVERY 5 MINUTES NEEDED FOR CHEST PAIN FOR 3 DOSES ONLY. IF NO RELIEF, CALL 911 Pioglitazone HCl - 15 MG Oral TabletTAKE ONE TABLET BY MOUTH ONCE DAILY Sucralfate 1 GM Oral TabletTAKE ONE TABLET BY MOUTH THREE TIMES A DAY Symbicort 160-4.5 MCG/ACT Inhalation AerosolINHALE 2 PUFFS TWICE A DAY -RINSE MOUTH AFTER USE Allergies Medication sulfa Allergy; Recorded By: Nelson Marquez; 09/03/2021 11:27:12 AM Social History Problems Caffeine use (V49.89) (Z78.9) POP DAILY Current every day smoker (305.1) (F17.200) 6 CIGS A DAY No alcohol use No illicit drug use Vitals Vital Signs Recorded: 16Oct2021 11:41AM Heart Rate65, L Brachial Artery [id number], LUE, Sitting [id number], LUE, Sitting Height5 ft 1 in Mirljz753 lb BMI Ovmebpdmte25.04 kg/m2 BSA Calculated1.71 Tobacco Usea) Yes Patient encouraged to stop using tobacco productsYes Fall Screeningc) Not medically indicated Physical Exam Constitutional: alert and in no acute distress. Neck: neck is supple, symmetric, trachea midline, no masses and no thyromegaly . (more content not included)... Normal [employer] Tobacco Screening.on 022 Fall risk assessment c) Not medically indicated -[facility] [employer] DO Work Phone: Tobacco use status [facility] a) Yes [facility] DO Work Phone: Tobacco Screening. Yes -[facility] [employer] DO Work Phone: Basic Metabolic Panelon 02-26 Calcium [Mass/Vol] 8.6 mg/dL Normal 8.2-10.2 [facility] Comment on above: Performed By: #### C K, BMP, SCAN CBC, PTT, BNP, PT, TROP #### [facility] [address] [place] [address] [place] Chloride [Moles/Vol] 105 mmol/L Normal 95-114 [facility] Comment on above: Performed By: #### C K, BMP, SCAN CBC, PTT, BNP, PT, TROP #### [facility] [address] [place] [address] [place] CO2 [Moles/Vol] 21.2 mmol/L Low 22.0-30.0 [facility] Comment on above: Performed By: #### C K, BMP, SCAN CBC, PTT, BNP, PT, TROP #### [facility] [address] Creatinine [Mass/Vol] 1.26 mg/dL High 0.44-1.03 [facility] Comment on above: Performed By: #### C K, BMP, SCAN CBC, PTT, BNP, PT, TROP #### [address] Creatinine Clr Calc Pharmacy 43.69 [facility] Comment on above: Result Comment: PERF ORMED BY: [place] [address] PATHOLOGIST PEANUT SALTER GIA SHAH M.D. Performed By: #### C K, BMP, SCAN CBC, PTT, BNP, PT, TROP #### [address] Estimated GFR ( [place] 53 [facility] Comment on above: Result Comment: GFR estimated reference range: According to KDOQI guidelines, <60 ml/min/1.73m2 is sufficient to diagnose a patient with chronic kidney disease. Performed By: #### C K, BMP, SCAN CBC, PTT, BNP, PT, TROP #### [address] Estimated GFR (Non- Am 44 [facility] Comment on above: Performed By: #### C K, BMP, SCAN CBC, PTT, BNP, PT, TROP #### [address] Glucose [Mass/Vol] 116 mg/dL High 70-100 [facility] Comment on above: Result Comment: [place] om Glucose Reference Range is dependent on time and content of last meal. Glucose of more than 200 mg/dL in a nonstressed, ambulatory subject supports the diagnosis of Diabetes Mellitus. ADA recommended reference range Performed By: #### C K, BMP, SCAN CBC, PTT, BNP, PT, TROP #### [facility] [address] Potassium [Moles/Vol] 3.3 mmol/L Low 3.5-5.1 [facility] Comment on above: Performed By: #### C K, BMP, SCAN CBC, PTT, BNP, PT, TROP #### [facility] [address] Sodium [Moles/Vol] 139 mmol/L Normal 136-146 [facility] Comment on above: Performed By: #### C K, BMP, SCAN CBC, PTT, BNP, PT, TROP #### [facility] [address] Urea nitrogen [Mass/Vol] 20 mg/dL Normal 9-23 [facility] Comment on above: Performed By: #### C K, BMP, SCAN CBC, PTT, BNP, PT, TROP #### [facility] [address] Creatine Kinaseon 03-21-2021 CK [Catalytic activity/Vol] 87 U/L Normal 22-269 [facility] Comment on above: Performed By: #### C K, BMP, SCAN CBC, PTT, BNP, PT, TROP #### [address] Creatinine Kinase MBon 03-21 CK.MB [Mass/Vol] 1.6 ng/mL Normal 0.6-6.3 [facility] Comment on above: Performed By: #### C K, BMP, SCAN CBC, PTT, BNP, PT, TROP #### [address] CKMB Relative Index 1.8 % Normal 0.00-2.50 [facility] Comment on above: Performed By: #### C K, BMP, SCAN CBC, PTT, BNP, PT, TROP #### [facility] 1[address] [place] [address] [place] ECG 12 lead ECGon 03-21-2021 ECG 12 lead ECG [facility] [place] [address] [place] [address] Electrocardiograph Report Signed Patient: Fausto Corrigan MR#: [id number] 0 : 1960 Acct:[id number] Age/Sex: 60 / F ADM Date: 03/19/21 Loc: Room: [address] [place] [address] Type: DIS IN Attending Dr: Kal Kellogg MD Ordering Provider: Sofia Washington DO Date of Service: 03/21/21 ECG/ECG 12 lead ECG: Post Angioplasty Procedure in AM Copies to: Test Reason : Blood Pressure : / mmHG Vent. Rate : 061 BPM Atrial Rate : 061 BPM P-R Int : 198 ms QRS Dur : 082 ms QT Int : 454 ms P-R-T Axes : 048 017 -32 degrees QTc Int : 457 ms Normal sinus rhythm Possible Inferior infarct (cited on or before 19-MAR-2021) T wave abnormality, consider anterior ischemia Abnormal ECG When compared with ECG of 20-MAR-2021 14:36, (Unconfirmed) ID interval has decreased Confirmed by CHRISTA BAEZA DO ([id number]) on 03/21/2021 4:10:41 PM Referred By: Electronically Signed By:CHRISTA BAEZA DO Transcribed By: MUS Dictated By: Christa Baeza DO 03/21/21 0802 Signed By: 03/21/21 1610 Normal [facility] Scan and CBCon 03-21-2021 Basophils (Bld) [#/Vol] 0.1 10*3/uL Normal 0.0-0.2 [facility] Comment on above: Performed By: #### C K, BMP, SCAN CBC, PTT, BNP, PT, TROP #### [facility] [address] [place] [id number] [place] Basophils/100 WBC (Bld) 0.5 % Normal . [facility] Comment on above: Performed By: #### C K, BMP, SCAN CBC, PTT, BNP, PT, TROP #### [facility] [address] [place] [address] [place] Eosinophils (Bld) [#/Vol] 0.3 10*3/uL Normal 0.0-0.45 [facility] Comment on above: Performed By: #### C K, BMP, SCAN CBC, PTT, BNP, PT, TROP #### [address] Eosinophils/100 WBC (Bld) 2.6 % Normal . [facility] Comment on above: Performed By: #### C K, BMP, SCAN CBC, PTT, BNP, PT, TROP #### [address] Erythrocyte distribution wid th (RBC) [Ratio] 13.3 % Normal 11.9-15.3 [facility] Comment on above: Performed By: #### C K, BMP, SCAN CBC, PTT, BNP, PT, TROP #### [address] Hematocrit (Bld) [Volume fraction] 39.1 % Normal 34.0-46.4 [facility] Comment on above: Performed By: #### C K, BMP, SCAN CBC, PTT, BNP, PT, TROP #### [address] Hemoglobin (Bld) [Mass/Vol] 13.2 g/dL Normal 11.8-15. 4 [facility] Comment on above: Performed By: #### C K, BMP, SCAN CBC, PTT, BNP, PT, TROP #### [address] Lymphocytes (Bld) [#/Vol] 4.6 10*3/uL Normal 1.00-4.8 [facility] Comment on above: Performed By: #### C K, BMP, SCAN CBC, PTT, BNP, PT, TROP #### [address] Lymphocytes/100 WBC (Bld) 37.3 % Normal . [facility] Comment on above: Performed By: #### C K, BMP, SCAN CBC, PTT, BNP, PT, TROP #### [address] MCH (RBC) [Entitic mass] 31.1 pg Normal 24.7-34.3 [facility] Comment on above: Performed By: #### C K, BMP, SCAN CBC, PTT, BNP, PT, TROP #### [address] MCV (RBC) [Entitic vol] 92.2 fL Normal 80-100 [facility] Comment on above: Performed By: #### C K, BMP, SCAN CBC, PTT, BNP, PT, TROP #### [address] Mean Corpuscular HGB Conc 33.8 g/dL Normal 32.0-35.0 [facility] Comment on above: Performed By: #### C K, BMP, SCAN CBC, PTT, BNP, PT, TROP #### [address] Monocytes (Bld) [#/Vol] 1.0 10*3/uL High 0.0-0.8 [facility] Comment on above: Performed By: #### C K, BMP, SCAN CBC, PTT, BNP, PT, TROP #### [address] Monocytes/100 WBC (Bld) 8.0 % Normal . [facility] Comment on above: Performed By: #### C K, BMP, SCAN CBC, PTT, BNP, PT, TROP #### [address] Neutrophils (Bld) [#/Vol] 6.4 10*3/uL Normal 1.8-7.7 [facility] Comment on above: Performed By: #### C K, BMP, SCAN CBC, PTT, BNP, PT, TROP #### [address] Neutrophils/100 WBC (Bld) 51.6 % Normal . [facility] Comment on above: Performed By: #### C K, BMP, SCAN CBC, PTT, BNP, PT, TROP #### [address] Nucleated RBC/100 WBC (Bld) [Ratio] 0.2 % Normal 0-0.5 [facility] Comment on above: Performed By: #### C K, BMP, SCAN CBC, PTT, BNP, PT, TROP #### [address] Platelet Estimate Normal Normal Normal [facility] Comment on above: Performed By: #### C K, BMP, SCAN CBC, PTT, BNP, PT, TROP #### [address] Platelet mean volume (Bld) [Entitic vol] 9.3 fL Normal 6.3-10.7 [facility] Comment on above: Performed By: #### C K, BMP, SCAN CBC, PTT, BNP, PT, TROP #### [address] Platelet Morphology Normal Normal Normal [facility] Comment on above: Result Comment: PERF ORMED BY: [place] [address] PATHOLOGIST PEANUT SALTER GIA SHAH M.D. Performed By: #### C K, BMP, SCAN CBC, PTT, BNP, PT, TROP #### [address] Platelets (Bld) [#/Vol] 250 10*3/uL Normal 150-450 [facility] Comment on above: Performed By: #### C K, BMP, SCAN CBC, PTT, BNP, PT, TROP #### [address] RBC (Bld) [#/Vol] 4.24 10*6/uL Normal 3.60-5.00 [facility] Comment on above: Performed By: #### C K, BMP, SCAN CBC, PTT, BNP, PT, TROP #### [address] RBC morphology finding Nom (Bld) Normal Normal [facility] Comment on above: Performed By: #### C K, BMP, SCAN CBC, PTT, BNP, PT, TROP #### [address] [place] [address] [place] WBC (Bld) [#/Vol] 12.3 10*3/uL High 4.5-11.0 [facility] Comment on above: Performed By: #### C K, BMP, SCAN CBC, PTT, BNP, PT, TROP #### [address] Troponin I(TnI)on 03-21-2021 Troponin I.cardiac [Mass/Vol] 3.93 ng/mL Off scale high 0-0.02 [facility] Comment on above: Result Comment: [place] Cut off value > or equal to 0.03 ng/mL in conjunction with clinical conditions of myocardial infarction. (www.escardio.org/guidelines) PERFORMED BY: [place] [address] PATHOLOGIST PEANUT SALTER GIA SHAH M.D. Performed By: #### C K, BMP, SCAN CBC, PTT, BNP, PT, TROP #### [address] Troponin I.cardiac [Mass/Vol] 3.98 ng/mL Off scale high 0-0.02 [facility] Comment on above: Result Comment: [place] Cut off value > or equal to 0.03 ng/mL in conjunction with clinical conditions of myocardial infarction. (www.escardio.org/guidelines) PERFORMED BY: [place] [address] PATHOLOGIST PEANUT SALTER GIA SHAH M.D. Performed By: #### C K, BMP, SCAN CBC, PTT, BNP, PT, TROP #### [address] Basic Metabolic Panelon 02-26 Calcium [Mass/Vol] 9.1 mg/dL Normal 8.2-10.2 [facility] Comment on above: Performed By: #### C K, BMP, SCAN CBC, PTT, BNP, PT, TROP #### [address] Chloride [Moles/Vol] 102 mmol/L Normal 95-114 [facility] Comment on above: Performed By: #### C K, BMP, SCAN CBC, PTT, BNP, PT, TROP #### [facility] [address] CO2 [Moles/Vol] 23.3 mmol/L Normal 22.0-30.0 [facility] Comment on above: Performed By: #### C K, BMP, SCAN CBC, PTT, BNP, PT, TROP #### [facility] [address] Creatinine [Mass/Vol] 1.15 mg/dL High 0.44-1.03 [facility] Comment on above: Performed By: #### C K, BMP, SCAN CBC, PTT, BNP, PT, TROP #### [facility] [address] Creatinine Clr Calc Pharmacy 47.09 [facility] Comment on above: Performed By: #### C K, BMP, SCAN CBC, PTT, BNP, PT, TROP #### [facility] [address] Estimated GFR ( [place] 59 [facility] Comment on above: Result Comment: GFR estimated reference range: According to KDOQI guidelines, <60 ml/min/1.73m2 is sufficient to diagnose a patient with chronic kidney disease. Performed By: #### C K, BMP, SCAN CBC, PTT, BNP, PT, TROP #### [facility] [address] [place] [address] Estimated GFR (Non- Am 48 [facility] Comment on above: Performed By: #### C K, BMP, SCAN CBC, PTT, BNP, PT, TROP #### [facility] [address] Glucose [Mass/Vol] 161 mg/dL High 70-100 [facility] Comment on above: Result Comment: [place] Glucose Reference Range is dependent on time and content of last meal. Glucose of more than 200 mg/dL in a nonstressed, ambulatory subject supports the diagnosis of Diabetes Mellitus. ADA recommended reference range Performed By: #### C K, BMP, SCAN CBC, PTT, BNP, PT, TROP #### [address] Potassium [Moles/Vol] 3.1 mmol/L Low 3.5-5.1 [facility] Comment on above: Performed By: #### C K, BMP, SCAN CBC, PTT, BNP, PT, TROP #### [address] Sodium [Moles/Vol] 136 mmol/L Normal 136-146 [facility] Comment on above: Performed By: #### C K, BMP, SCAN CBC, PTT, BNP, PT, TROP #### [address] Urea nitrogen [Mass/Vol] 26 mg/dL High 9-23 [facility] Comment on above: Performed By: #### C K, BMP, SCAN CBC, PTT, BNP, PT, TROP #### [address] Coagulation Profileon 2020 aPTT Coag (Bld) [Time] 37.6 s High 25.1-36.5 [facility] Comment on above: Result Comment: PERF ORMED BY: [place] [address] PATHOLOGIST PEANUT SALTER GIA SHAH M.D. Performed By: #### C K, BMP, SCAN CBC, PTT, BNP, PT, TROP #### [address] INR Coag (PPP) [Relative time] 1.1 {INR} Normal [facility] Comment on above: Result Comment: INR Therapeutic Range A) Pre- and Peroperative OAT started two weeks before surgery. NOT HIP SURGERY: 1.5 - 2.5 HIP SURGERY: 2 - 3 B) Primary and secondary prevention of venous THROMBOSIS: 2 - 3 C) Active venous thrombosis, pulmonary embolism and prevention of recurrent venous thrombosis: 2 - 3 D) Prevention of arterial thromboembolism including patients with mechanical heart valves: 3 - 4.5 Performed By: #### C K, BMP, SCAN CBC, PTT, BNP, PT, TROP #### [address] PT Coag (PPP) [Time] 12.2 s Normal 9.0-12.9 [facility] Comment on above: Performed By: #### C K, BMP, SCAN CBC, PTT, BNP, PT, TROP #### [address] Creatine Kinaseon 03-20-2021 CK [Catalytic activity/Vol] 91 U/L Normal 22-269 [facility] Comment on above: Order Comment: NOTIF IED,[id number] Performed By: #### C K, BMP, SCAN CBC, PTT, BNP, PT, TROP #### [address] CK [Catalytic activity/Vol] 108 U/L Normal -269 [facility] Comment on above: Performed By: #### C K, BMP, SCAN CBC, PTT, BNP, PT, TROP #### [address] CK [Catalytic activity/Vol] 101 U/L Normal -[address] [place] [address] Comment on above: Performed By: #### C K, BMP, SCAN CBC, PTT, BNP, PT, TROP #### [address] Creatinine Kinase MBon 03-20 CK.MB [Mass/Vol] 1.9 ng/mL Normal 0.6-6.3 [facility] Comment on above: Order Comment: NOTIF IED,[id number] Performed By: #### C K, BMP, SCAN CBC, PTT, BNP, PT, TROP #### [place] [address] [place] CKMB Relative Index 2.0 % Normal 0.00-2.50 [facility] Comment on above: Order Comment: NOTIF IED,[id number] Performed By: #### C K, BMP, SCAN CBC, PTT, BNP, PT, TROP #### [place] [address] [place] CK.MB [Mass/Vol] 2.5 ng/mL Normal 0.6-6.3 [facility] Comment on above: Performed By: #### C K, BMP, SCAN CBC, PTT, BNP, PT, TROP #### [facility] [address] CKMB Relative Index 2.3 % Normal 0.00-2.50 [facility] Comment on above: Performed By: #### C K, BMP, SCAN CBC, PTT, BNP, PT, TROP #### [facility] [address] CK.MB [Mass/Vol] 3.1 ng/mL Normal 0.6-6.3 [facility] Comment on above: Performed By: #### C K, BMP, SCAN CBC, PTT, BNP, PT, TROP #### [facility] [address] CKMB Relative Index 3.0 % High 0.00-2.50 [facility] Comment on above: Performed By: #### C K, BMP, SCAN CBC, PTT, BNP, PT, TROP #### [facility] [address] ECG 12 lead ECGon 03-20-2021 ECG 12 lead ECG [facility] [place] [address] Electrocardiograph Report Signed Patient: Fausto Corrigan MR#: [id number] 0 : 1960 Acct:[id number] Age/Sex: 60 / F ADM Date: 03/19/21 Loc: Room: [address] [place] [address] Type: DIS IN Attending Dr: Kal Kellogg MD Ordering Provider: Kal Kellogg MD Date of Service: 03/20/21 ECG/ECG 12 lead ECG: pt evalulation Copies to: Test Reason : Blood Pressure : / mmHG Vent. Rate : 077 BPM Atrial Rate : 077 BPM P-R Int : 246 ms QRS Dur : 076 ms QT Int : 438 ms P-R-T Axes : 040 006 -27 degrees QTc Int : 495 ms Sinus rhythm with 1st degree AV block Possible Inferior infarct , age undetermined T wave abnormality, consider anterior ischemia Abnormal ECG No previous ECGs available Confirmed by CHRISTA BAEZA DO ([id number]) on 03/22/2021 5:05:35 PM Referred By: Electronically Signed By:CHRISTA BAEZA DO Transcribed By: MUS Dictated By: Christa Baeza DO 03/20/21 1436 Signed By: 03/22/21 1705 Normal [facility] Magnesiumon 03-20-2021 Magnesium [Mass/Vol] 2.0 mg/dL Normal 1.6-2.6 [facility] Comment on above: Result Comment: PERF ORMED BY: [place] [address] PATHOLOGIST PEANUT SALTER GIA SHAH M.D. Performed By: #### C K, BMP, SCAN CBC, PTT, BNP, PT, TROP #### [address] Partial Thromboplastin Timeo n 03-20-2021 aPTT Coag (Bld) [Time] 44.7 s High 25.1-36.5 [facility] Comment on above: Order Comment: List the anticoagulant: HEPARIN, UNFRACTIONATED Result Comment: PERF ORMED BY: [place] [address] PATHOLOGIST PEANUT SALTER GIA SHAH M.D. Performed By: #### C K, BMP, SCAN CBC, PTT, BNP, PT, TROP #### [facility] [address] [place] [address] Scan and CBCon 03-20-2021 Basophils (Bld) [#/Vol] 0.1 10*3/uL Normal 0.0-0.2 [facility] Comment on above: Performed By: #### C K, BMP, SCAN CBC, PTT, BNP, PT, TROP #### [facility] [address] [place] [address] Basophils/100 WBC (Bld) 0.6 % Normal . [facility] Comment on above: Performed By: #### C K, BMP, SCAN CBC, PTT, BNP, PT, TROP #### [address] Eosinophils (Bld) [#/Vol] 0.3 10*3/uL Normal 0.0-0.45 [facility] Comment on above: Performed By: #### C K, BMP, SCAN CBC, PTT, BNP, PT, TROP #### [address] Eosinophils/100 WBC (Bld) 1.8 % Normal . [facility] Comment on above: Performed By: #### C K, BMP, SCAN CBC, PTT, BNP, PT, TROP #### [address] Erythrocyte distribution wid th (RBC) [Ratio] 13.2 % Normal 11.9-15.3 [facility] Comment on above: Performed By: #### C K, BMP, SCAN CBC, PTT, BNP, PT, TROP #### [address] Hematocrit (Bld) [Volume fraction] 42.5 % Normal 34.0-46.4 [facility] Comment on above: Performed By: #### C K, BMP, SCAN CBC, PTT, BNP, PT, TROP #### [address] Hemoglobin (Bld) [Mass/Vol] 14.5 g/dL Normal 11.8-15. 4 [facility] Comment on above: Performed By: #### C K, BMP, SCAN CBC, PTT, BNP, PT, TROP #### [address] Lymphocytes (Bld) [#/Vol] 5.2 10*3/uL High 1.00-4.8 [facility] Comment on above: Performed By: #### C K, BMP, SCAN CBC, PTT, BNP, PT, TROP #### [address] Lymphocytes/100 WBC (Bld) 31.5 % Normal . [facility] Comment on above: Performed By: #### C K, BMP, SCAN CBC, PTT, BNP, PT, TROP #### [address] MCH (RBC) [Entitic mass] 31.1 pg Normal 24.7-34.3 [facility] Comment on above: Performed By: #### C K, BMP, SCAN CBC, PTT, BNP, PT, TROP #### [address] MCV (RBC) [Entitic vol] 90.8 fL Normal 80-100 [facility] Comment on above: Performed By: #### C K, BMP, SCAN CBC, PTT, BNP, PT, TROP #### [address] Mean Corpuscular HGB Conc 34.2 g/dL Normal 32.0-35.0 [facility] Comment on above: Performed By: #### C K, BMP, SCAN CBC, PTT, BNP, PT, TROP #### [address] Monocytes (Bld) [#/Vol] 1.1 10*3/uL High 0.0-0.8 [facility] Comment on above: Performed By: #### C K, BMP, SCAN CBC, PTT, BNP, PT, TROP #### [place] [address] [place] Monocytes/100 WBC (Bld) 6.7 % Normal . [facility] Comment on above: Performed By: #### C K, BMP, SCAN CBC, PTT, BNP, PT, TROP #### [place] [address] [place] Neutrophils (Bld) [#/Vol] 9.8 10*3/uL High 1.8-7.7 [facility] Comment on above: Performed By: #### C K, BMP, SCAN CBC, PTT, BNP, PT, TROP #### [place] [address] [place] Neutrophils/100 WBC (Bld) 59.4 % Normal . [facility] Comment on above: Performed By: #### C K, BMP, SCAN CBC, PTT, BNP, PT, TROP #### [facility] [address] [place] [address] [place] Nucleated RBC/100 WBC (Bld) [Ratio] 0.2 % Normal 0-0.5 [facility] Comment on above: Performed By: #### C K, BMP, SCAN CBC, PTT, BNP, PT, TROP #### [facility] [address] Platelet Estimate Normal Normal Normal [facility] Comment on above: Performed By: #### C K, BMP, SCAN CBC, PTT, BNP, PT, TROP #### [facility] [address] Platelet mean volume (Bld) [Entitic vol] 9.4 fL Normal 6.3-10.7 [facility] Comment on above: Performed By: #### C K, BMP, SCAN CBC, PTT, BNP, PT, TROP #### [facility] [address] Platelet Morphology Normal Normal Normal [facility] Comment on above: Result Comment: PERF ORMED BY: [place] [address] PATHOLOGIST PEANUT SALTER GIA SHAH M.D. Performed By: #### C K, BMP, SCAN CBC, PTT, BNP, PT, TROP #### [facility] [address] [place] [address] [place] Platelets (Bld) [#/Vol] 305 10*3/uL Normal 150-450 [facility] Comment on above: Performed By: #### C K, BMP, SCAN CBC, PTT, BNP, PT, TROP #### [facility] [address] [place] [address] [place] RBC (Bld) [#/Vol] 4.68 10*6/uL Normal 3.60-5.00 [facility] Comment on above: Performed By: #### C K, BMP, SCAN CBC, PTT, BNP, PT, TROP #### [facility] [address] RBC morphology finding Nom (Bld) Normal Normal [facility] Comment on above: Performed By: #### C K, BMP, SCAN CBC, PTT, BNP, PT, TROP #### [facility] [address] WBC (Bld) [#/Vol] 16.5 10*3/uL High 4.5-11.0 [facility] Comment on above: Performed By: #### C K, BMP, SCAN CBC, PTT, BNP, PT, TROP #### [facility] [address] Troponin I(TnI)on 03-20-2021 Troponin I.cardiac [Mass/Vol] 4.57 ng/mL Off scale high 0-0.02 [facility] Comment on above: Order Comment: NOTIF IED,[id number],[id number] Result Comment: [place] Cut off value > or equal to 0.03 ng/mL in conjunction with clinical conditions of myocardial infarction. (www.escardio.org/guidelines) PERFORMED BY: [place] [address] PATHOLOGIST PEANUT SALTER GIA SHAH M.D. Performed By: #### C K, BMP, SCAN CBC, PTT, BNP, PT, TROP #### [address] Troponin I.cardiac [Mass/Vol] 5.16 ng/mL Off scale high 0-0.02 [facility] Comment on above: Result Comment: [place] Cut off value > or equal to 0.03 ng/mL in conjunction with clinical conditions of myocardial infarction. (www.escardio.org/guidelines) PERFORMED BY: [place] [address] PATHOLOGIST PEANUT SALTER GIA SHAH M.D. Performed By: #### C K, BMP, SCAN CBC, PTT, BNP, PT, TROP #### [facility] [address] Troponin I.cardiac [Mass/Vol] 4.93 ng/mL Off scale high 0-0.02 [facility] Comment on above: Result Comment: [place] Cut off value > or equal to 0.03 ng/mL in conjunction with clinical conditions of myocardial infarction. (www.escardio.org/guidelines) PERFORMED BY: [place] [address] PATHOLOGIST PEANUT SALTER GIA SHAH M.D. Performed By: #### C K, BMP, SCAN CBC, PTT, BNP, PT, TROP #### [address] XR chest 1V portableon 03-20 XR chest 1V portable [facility] [place] [address] [place] [address] XRay Report Signed Patient: Fausto Corrigan MR#: [id number] 0 : 1960 Acct:[id number] Age/Sex: 60 / F ADM Date: 03/19/21 Loc: Room: [address] [place] [address] Type: ADM IN Attending Dr: Kal Kellogg MD Ordering Provider: Layne Simon DO Date of Service: 03/19/21 XR/XR chest 1V portable: Recheck/Abnormal Lab/Rx Copies to: DO Kal Young MD Plain film chestsingle view HISTORY:Elevated cardiac enzymes. COMPARISON:None FINDINGS: The cardiac, mediastinal and hilar silhouettes are within normal limits. No acute lung process, pleural effusion or pneumothorax identified. Bony structures are intact. XR/XR chest 1V portable IMPRESSION: No acute process. Impression dictated by: Robel Roland M.D.03/20/2021 8:58 AM Dictation Location: [place] [address] Transcribed By: [facility] 03/20/21857 Dictated By: Robel Roland DO 03/20/21856 Signed By: 03/20/2158 Normal [facility] B-Type Natriuretic Peptideon 03-19-2021 Natriuretic peptide B (Bld) [Mass/Vol] 117.0 pg/mL High 5-100 [facility] Comment on above: Result Comment: PERF ORMED BY: [place] [address] PATHOLOGIST PEANUT SALTER GIA SHAH M.D. Performed By: #### C K, BMP, SCAN CBC, PTT, BNP, PT, TROP #### [facility] [address] Basic Metabolic Panelon 02-26 Calcium [Mass/Vol] 9.9 mg/dL Normal 8.2-10.2 [facility] Comment on above: Performed By: #### C K, BMP, SCAN CBC, PTT, BNP, PT, TROP #### [facility] [address] Chloride [Moles/Vol] 95 mmol/L Normal 95-114 [facility] Comment on above: Performed By: #### C K, BMP, SCAN CBC, PTT, BNP, PT, TROP #### [facility] [address] CO2 [Moles/Vol] 28.2 mmol/L Normal 22.0-30.0 [facility] Comment on above: Performed By: #### C K, BMP, SCAN CBC, PTT, BNP, PT, TROP #### [facility] [address] Creatinine [Mass/Vol] 1.41 mg/dL High 0.44-1.03 [facility] Comment on above: Performed By: #### C K, BMP, SCAN CBC, PTT, BNP, PT, TROP #### [facility] [address] Creatinine Clr Calc Pharmacy 38.52 Normal [facility] Comment on above: Result Comment: PERF ORMED BY: [place] [address] PATHOLOGIST PEANUT SALTER GIA SHAH M.D. Performed By: #### C K, BMP, SCAN CBC, PTT, BNP, PT, TROP #### [address] [address] [place] Estimated GFR ( [place] 46 [facility] Comment on above: Result Comment: GFR estimated reference range: According to KDOQI guidelines, <60 ml/min/1.73m2 is sufficient to diagnose a patient with chronic kidney disease. Performed By: #### C K, BMP, SCAN CBC, PTT, BNP, PT, TROP #### [facility] [address] Estimated GFR (Non- Am 38 [facility] Comment on above: Performed By: #### C K, BMP, SCAN CBC, PTT, BNP, PT, TROP #### [facility] [address] Glucose [Mass/Vol] 143 mg/dL High 70-100 [facility] Comment on above: Result Comment: [place] Glucose Reference Range is dependent on time and content of last meal. Glucose of more than 200 mg/dL in a nonstressed, ambulatory subject supports the diagnosis of Diabetes Mellitus. ADA recommended reference range Performed By: #### C K, BMP, SCAN CBC, PTT, BNP, PT, TROP #### [facility] [address] Potassium [Moles/Vol] 3.4 mmol/L Low 3.5-5.1 [facility] Comment on above: Performed By: #### C K, BMP, SCAN CBC, PTT, BNP, PT, TROP #### [facility] [address] Sodium [Moles/Vol] 139 mmol/L Normal 136-146 [facility] Comment on above: Performed By: #### C K, BMP, SCAN CBC, PTT, BNP, PT, TROP #### [facility] [address] Urea nitrogen [Mass/Vol] 28 mg/dL High - [facility] Comment on above: Performed By: #### C K, BMP, SCAN CBC, PTT, BNP, PT, TROP #### [facility] [address] COVID-19 Antigenon 1 COVID-19 Antigen Healthcare Worker?: N Kristan Reference Kristan Reference Negative SARS-CoV+SARS-CoV-2 (COVID-19) Ag [Presence] in Respiratory specimen by Rapid immunoassay Negative for SARS Antigen by KOLTON COVID19 Blank Space Kristan Disclaimer Negative results, from patients with symptom Kristan Disclaimer onset beyond five days, should be treated as Kristan Disclaimer presumptive and confirmation with a molecular Kristan Disclaimer assay, if necessary, for patient management, Kristan Disclaimer may be performed. Negative results do not rule Kristan Disclaimer out COVID-19 and should not be used as the sole Kristan Disclaimer basis for treatment or patient management Kristan Disclaimer decisions, including infection control decisions. Kristan Disclaimer Negative results should be considered in the Kristan Disclaimer context of a patient's recent exposures, history Kristan Disclaimer and the presence of clinical signs and symptoms Kristan Disclaimer consistent with COVID-19. COVID19 Blank Space Kristan Disclaimer The Kristan SARS Antigen KOLTON does not differentiate Kristan Disclaimer between SARS-CoV and SARS-CoV-2. COVID19 Blank Space Kristan Disclaimer This test was developed and its performance Kristan Disclaimer characteristic determined by [employer] and Kristan Disclaimer validated at [facility]. This Kristan Disclaimer test has not been FDA cleared or approved. This Kristan Disclaimer test has been authorized by FDA under an Emergency Use Kristan Disclaimer Authorization (EUA). This test has been validated Kristan Disclaimer in accordance with the FDA's Guidance Document (Policy Kristan Disclaimer for Diagnostics Testing in Laboratories Certified to Kristan Disclaimer Perform High Complexity Testing under CLIA prior to Kristan Disclaimer Emergency Use Authorization for Coronavirus Kristan Disclaimer isease-2018 during the Public Health Emergency) Kristan Disclaimer issued on December 28, 2019. This test is only authorized Kristan Disclaimer for the duration of time the declaration that Kristan Disclaimer circumstances exist justifying the authorization of Kristan Disclaimer the emergency use of in vitro diagnostic tests for Kristan Disclaimer detection of SARS-CoV-2 virus and/or diagnosis of Kristan Disclaimer COVID-19 infection under section 564(b)(1) of the Kristan Disclaimer Act, 21 U.S.C. 360bbb-3(b)(1), unless the Kristan Disclaimer authorization is terminated or revoked sooner. PERFORMED BY: [place] [address] PATHOLOGIST PEANUT SALTER GIA SHAH M.D. Normal [facility] Comment on above: Performed By: #### C OVID 19 [facility] [place], COVID-19 KRISTAN #### [address] COVID-19 [facility] SARS-CoV-2 (COVID-19) RNA SHERRIE+probe Ql (Unsp spec) Negative Normal Negative [facility] Comment on above: Order Comment: Healt hcare Worker?: N Result Comment: Testing for SARS-CoV-2 by RT-PCR This test was developed and its performance characteristics determined by [employer] and validated at the [facility]. This test has not been FDA cleared or approved. This test has been authorized by FDA under an Emergency Use Authorization (EUA). This test has been validated in accordance with the FDA's Guidance Document (Policy for Diagnostics Testing in Laboratories Certified to Perform High Complexity Testing under CLIA prior to Emergency Use Authorization for Coronavirus Disease-2019 during the Public Health Emergency) issued on December 28, 2019. This test is only authorized for the duration of time the declaration that circumstances exist justifying the authorization of the emergency use of in vitro diagnostic tests for detection of SARS-CoV-2 virus and/or diagnosis of COVID-19 infection under section 564(b)(1) of the Act, 21 U.S.C. 360bbb-3(b)(1), unless the authorization is terminated or revoked sooner. PERFORMED BY: [place] [address] PATHOLOGIST PEANUT SALTER GIA SHAH M.D. Performed By: #### C OVID 19 [facility] [place], COVID-19 KRISTAN #### [address] Creatine Kinaseon 03-19-2021 CK [Catalytic activity/Vol] 123 U/L Normal 22-269 [facility] Comment on above: Performed By: #### C K, BMP, SCAN CBC, PTT, BNP, PT, TROP #### [facility] [address] [place] [address] ECG 12 lead ECGon 03-19-2021 ECG 12 lead ECG [facility] Main [place] [address] [place] [address] Electrocardiograph Report Signed Patient: Fausto Corrigan MR#: [id number] 0 : 1960 Acct:[id number] Age/Sex: 60 / F ADM Date: 03/19/21 Loc: Room: [address] [place] [address] Type: ADM IN Attending Dr: Kal Kellogg MD Ordering Provider: Chano Lawton Jr, MD Date of Service: 03/19/21 ECG/ECG 12 lead ECG: Recheck/Abnormal Lab/Rx Copies to: Test Reason : Blood Pressure : / mmHG Vent. Rate : 067 BPM Atrial Rate : 067 BPM P-R Int : 178 ms QRS Dur : 080 ms QT Int : 404 ms P-R-T Axes : 052 020 050 degrees QTc Int : 426 ms Normal sinus rhythm Inferior infarct , possibly acute ACUTE AK / STEMI Consider right ventricular involvement in acute inferior infarct Abnormal ECG When compared with ECG of 19-MAR-2021 20:15, (Unconfirmed) No significant change was found Confirmed by LAYNE SIMON DO ([id number]) on 03/20/2021 2:13:27 AM Referred By: Electronically Signed By:LAYNE SIMON DO Transcribed By: LAURA Dictated By: Layne Simon DO 03/19/212021 Signed By: 03/20/21212 [facility] ECG 12 lead ECG [facility] Main [address] [address] Electrocardiograph Report Signed Patient: Fausto Corrigan MR#: [id number] 0 : 1960 Acct:[id number] Age/Sex: 60 / F ADM Date: 03/19/21 Loc: Room: [address] [place] [address] Type: ADM IN Attending Dr: Kal Kellogg MD Ordering Provider: Layne Simon DO Date of Service: 03/19/21 ECG/ECG 12 lead ECG: Recheck/Abnormal Lab/Rx Copies to: Test Reason : Blood Pressure : 136/065 mmHG Vent. Rate : 067 BPM Atrial Rate : 067 BPM P-R Int : 178 ms QRS Dur : 080 ms QT Int : 442 ms P-R-T Axes : 048 027 037 degrees QTc Int : 467 ms Normal sinus rhythm ST elevation, consider inferior injury or acute infarct ACUTE AK / STEMI Consider right ventricular involvement in acute inferior infarct Abnormal ECG No previous ECGs available Confirmed by LAYNE SIMON DO ([id number]) on 03/20/2021 2:13:27 AM Referred By: Electronically Signed By:LAYNE SIMON DO Transcribed By: LAURA Dictated By: Layne Simon DO 03/19/212014 Signed By: 03/20/21212 [facility] Partial Thromboplastin Timeo n 03-19-2021 aPTT Coag (Bld) [Time] 29.7 s Normal 25.1-36.5 [facility] Comment on above: Result Comment: PERF ORMED BY: [place] [id number] PATHOLOGIST PEANUT SALTER GIA SHHA M.D. Performed By: #### C K, BMP, SCAN CBC, PTT, BNP, PT, TROP #### [address] Prothrombin Time INRon 03-19 INR Coag (PPP) [Relative time] 1.1 {INR} Normal [facility] Comment on above: Result Comment: INR Therapeutic Range A) Pre- and Peroperative OAT started two weeks before surgery. NOT HIP SURGERY: 1.5 - 2.5 HIP SURGERY: 2 - 3 B) Primary and secondary prevention of venous THROMBOSIS: 2 - 3 C) Active venous thrombosis, pulmonary embolism and prevention of recurrent venous thrombosis: 2 - 3 D) Prevention of arterial thromboembolism including patients with mechanical heart valves: 3 - 4.5 Performed By: #### C K, BMP, SCAN CBC, PTT, BNP, PT, TROP #### [address] PT Coag (PPP) [Time] 12.2 s Normal 9.0-12.9 [facility] Comment on above: Performed By: #### C K, BMP, SCAN CBC, PTT, BNP, PT, TROP #### [address] Scan and CBCon 03-19-2021 Basophils (Bld) [#/Vol] 0.2 10*3/uL Normal 0.0-0.2 [facility] Comment on above: Performed By: #### C K, BMP, SCAN CBC, PTT, BNP, PT, TROP #### [address] Basophils/100 WBC (Bld) 0.9 % Normal . [facility] Comment on above: Performed By: #### C K, BMP, SCAN CBC, PTT, BNP, PT, TROP #### [address] Eosinophils (Bld) [#/Vol] 0.4 10*3/uL Normal 0.0-0.45 [facility] Comment on above: Performed By: #### C K, BMP, SCAN CBC, PTT, BNP, PT, TROP #### [address] Eosinophils/100 WBC (Bld) 2.1 % Normal . [facility] Comment on above: Performed By: #### C K, BMP, SCAN CBC, PTT, BNP, PT, TROP #### [address] Erythrocyte distribution wid th (RBC) [Ratio] 13.3 % Normal 11.9-15.3 [facility] Comment on above: Performed By: #### C K, BMP, SCAN CBC, PTT, BNP, PT, TROP #### [address] Hematocrit (Bld) [Volume fraction] 46.2 % Normal 34.0-46.4 [facility] Comment on above: Performed By: #### C K, BMP, SCAN CBC, PTT, BNP, PT, TROP #### [address] Hemoglobin (Bld) [Mass/Vol] 15.7 g/dL High 11.8-15. 4 [facility] Comment on above: Performed By: #### C K, BMP, SCAN CBC, PTT, BNP, PT, TROP #### [address] Lymphocytes (Bld) [#/Vol] 5.0 10*3/uL High 1.00-4.8 [facility] Comment on above: Performed By: #### C K, BMP, SCAN CBC, PTT, BNP, PT, TROP #### [address] Lymphocytes/100 WBC (Bld) 27.2 % Normal . [facility] Comment on above: Performed By: #### C K, BMP, SCAN CBC, PTT, BNP, PT, TROP #### [address] MCH (RBC) [Entitic mass] 31.2 pg Normal 24.7-34.3 [facility] Comment on above: Performed By: #### C K, BMP, SCAN CBC, PTT, BNP, PT, TROP #### [facility] [address] MCV (RBC) [Entitic vol] 91.8 fL Normal 80-100 [facility] Comment on above: Performed By: #### C K, BMP, SCAN CBC, PTT, BNP, PT, TROP #### [address] Mean Corpuscular HGB Conc 34.0 g/dL Normal 32.0-35.0 [facility] Comment on above: Performed By: #### C K, BMP, SCAN CBC, PTT, BNP, PT, TROP #### [address] Monocytes (Bld) [#/Vol] 1.4 10*3/uL High 0.0-0.8 [facility] Comment on above: Performed By: #### C K, BMP, SCAN CBC, PTT, BNP, PT, TROP #### [address] Monocytes/100 WBC (Bld) 7.5 % Normal . [facility] Comment on above: Performed By: #### C K, BMP, SCAN CBC, PTT, BNP, PT, TROP #### [address] Neutrophils (Bld) [#/Vol] 11.5 10*3/uL High 1.8-7.7 [facility] Comment on above: Performed By: #### C K, BMP, SCAN CBC, PTT, BNP, PT, TROP #### [address] Neutrophils/100 WBC (Bld) 62.3 % Normal . [facility] Comment on above: Performed By: #### C K, BMP, SCAN CBC, PTT, BNP, PT, TROP #### [address] Nucleated RBC/100 WBC (Bld) [Ratio] 0.2 % Normal 0-0.5 [facility] Comment on above: Performed By: #### C K, BMP, SCAN CBC, PTT, BNP, PT, TROP #### [facility] [address] Platelet Estimate Normal Normal Normal [facility] Comment on above: Performed By: #### C K, BMP, SCAN CBC, PTT, BNP, PT, TROP #### [facility] [address] Platelet mean volume (Bld) [Entitic vol] 9.6 fL Normal 6.3-10.7 [facility] Comment on above: Performed By: #### C K, BMP, SCAN CBC, PTT, BNP, PT, TROP #### [facility] [address] Platelet Morphology Normal Normal Normal [facility] Comment on above: Result Comment: PERF ORMED BY: [place] [address] PATHOLOGIST PEANUT SALTER GIA SHAH M.D. Performed By: #### C K, BMP, SCAN CBC, PTT, BNP, PT, TROP #### [facility] [address] Platelets (Bld) [#/Vol] 313 10*3/uL Normal 150-450 [facility] Comment on above: Performed By: #### C K, BMP, SCAN CBC, PTT, BNP, PT, TROP #### [facility] [address] RBC (Bld) [#/Vol] 5.03 10*6/uL High 3.60-5.00 [facility] Comment on above: Performed By: #### C K, BMP, SCAN CBC, PTT, BNP, PT, TROP #### [facility] [address] RBC morphology finding Nom (Bld) Normal Normal [facility] Comment on above: Performed By: #### C K, BMP, SCAN CBC, PTT, BNP, PT, TROP #### [facility] [address] WBC (Bld) [#/Vol] 18.4 10*3/uL High 4.5-11.0 [facility] Comment on above: Performed By: #### C K, BMP, SCAN CBC, PTT, BNP, PT, TROP #### [facility] [address] [place] [id number] [facility] Kristan Ag Negativeon 03-19-20 Kristan Ag Negative Negative Normal Negative [facility] Comment on above: Result Comment: This is a duplicate Kristan SARS Antigen (KOLTON) result to be used for statistical tracking purpose only. PERFORMED BY: [place] [address] PATHOLOGIST PEANUT SALTER GIA SHAH M.D. Performed By: #### C OVID 19 [facility] [place], COVID-19 KRISTAN #### [address] Troponin I(TnI)on 03-19-2021 Troponin I.cardiac [Mass/Vol] 4.25 ng/mL Off scale high 0-0.02 [facility] Comment on above: Result Comment: Crit ical value result called at 2209 on 03/19/21 [place] Cut off value > or equal to 0.03 ng/mL in conjunction with clinical conditions of myocardial infarction. ([email or web address].org/guidelines) PERFORMED BY: [place] [address] PATHOLOGIST PEANUT SALTER GIA SHAH M.D. Performed By: #### C K, BMP, SCAN CBC, PTT, BNP, PT, TROP #### [place] [id number] [facility] Gastroenterology Office/Clin ic Noteon 02-26-2021 Gastroenterology Office/Clinic Note Chief Complaint Sick call - Diarrhea, sharp pains in intestines HPI Staff This is a 60 year old female who presents today for a sick call for diarrhea and sharp pain in intestines. History of Present Illness The patient or their guardian verbally consented to allow [facility] Joanne to record this visit. The 60-year-old white female presents today for a sick call. She was last seen in 05/2020 for heartburn which was not improving with Tagamet and antacids. She was to have an EGD performed, but she improved and cancelled the EGD. Today the patient is complaining because she was placed on metformin and she reports that every time she eats and takes the metformin, her ulcer will flair up. The patient describes burning pain in the epigastric area and diarrhea that is painful. The patient states she if she stops the metformin with symptoms subside. She also notes bright red blood in her stool after taking Imodium to try and stop the diarrhea. She denies dysphagia. The patient also had a screening colonoscopy done at an outside facility. The patient was placed on Carafate in the past. Review of Systems PHQ Score Initial Depression Screen Score: 0 Constitutional: no fever, no chills, no sweats, no weakness Skin: no Jaundice, no rash, no lesions, no petechiae ENMT: no ear pain, no sore throat, no congestion, no hoarseness Respiratory: no shortness of breath, no cough, no orthopnea, no wheezing Cardiovascular: no chest pain, no palpitations, no edema Gastrointestinal: no nausea, no vomiting, no diarrhea, no constipation, no GI bleeding, no abdominal pain, no dysphagia, no bloating, no heartburn Genitourinary: no dysuria, no hematuria, no discharge, no pain Musculoskeletal: no back pain, no trauma Neurologic: no numbness, no sleeping problems Additional ROS info: Except as noted in the above Review of Systems and in the History of Present Illness all other systems have been reviewed and are negative or noncontributory. Physical Exam Vitals & Measurements T: 36 ?C (Temporal Artery) HR: 65(Peripheral) RR: 18 BP: 119/76 HT: 154 cm HT: 154.0 cm WT: 75.4 kg WT: 75.4 kg BMI: 31.79 Constitutional: Appearance: well developed Skin: Inspection: no rashes, ulcers, icterus, or telangiectasias. Eyes: Conjunctivae/lids: normal conjunctivae and lids. ENMT: Hearing: within normal limits. Lips/Teeth/Gums: normal oral mucosa Neck: Neck: normal motion, central trachea Respiratory: Percussion: thorax normoresonant. Auscultation: normal breath sounds; no rubs, wheezes, rale or ronchi. Cardiovascular: Auscultation: normal rhythm, S1 and S2; no rubs, murmurs or gallop. Peripheral: no edema Gastrointestinal/Abdomen: Abdomen: normal consistency and bowel sounds; no tenderness or masses. Liver/Spleen: normal size and consistency, not palpable. Rectal: deferred Musculoskeletal: Gait/station: normal gait Assessment/Plan 1. Epigastric pain (R10.13: Epigastric pain) Patient was advised to discontinue the use of metformin and speak with her PCP about other options. 2. Heartburn (R12: Heartburn) See #1 3. Diarrhea (R19.7: Diarrhea, unspecified) I will order a stool test to rule out infection. She will follow up in 2 weeks. 4. Rectal bleed (K62.5: Hemorrhage of anus and rectum) See #3 ATTESTATION: Documentation services were performed by ARMEN after patient consented to recording for virtual bilingual customer service specialist and provider reviewed before signing. ARMEN: Lianne Jensen Follow-up With When Contact Information ROM RENNER, JOSE Graham, LASHAY Within 2 weeks [facility] [address] [place] [address] [place] [address]- Additional Instructions: Problem List/Past Medical History Ongoing Smoker Historical No qualifying data Procedure/Surgical History Colonoscopy, EGD - Esophagogastroduodenoscopy, Gall bladder, Hysterectomy. Medications atorvastatin, Oral, Daily cimetidine 200 mg oral tablet, 200 mg= 1 tab(s), Oral, BID, 11 refills Lipitor, Oral, Daily metformin, Oral Percocet 2.5 mg-325 mg oral tablet, Oral, q6hr Allergies sulfa drugs (Hives) Social History Tobacco 4 or less cigarettes(less than 1/4 pack)/day in last 30 days, Smoker, current status unknown Tobacco Use:. Cigarettes, Yes, 02/25/2021 Family History Diabetes mellitus type 1: Mother and Father. Primary malignant neoplasm of prostate: Father. Normal [facility] Comment on above: Result Comment: Elec tronically Signed By: Lianne Jensen\.br\Date and Time Signed: 02/25/21 15:53 EDT\.br\Electronically Co-Signed By: Gladys CUETO MD\.br\Date and Time Co-Signed: 02/26/21 12:32 EDT Ambulatory Clinical Summaryo n 02-25-2021 Ambulatory Clinical Summary {[id number] Zaira kilgore [facility] Coding Summary.on 07-15-2020 Coding Summary. CODING DATE: 020 FINAL [facility] DSC STATUS: Home (Routine DC) PAYOR: Medicaid ADMIT DX: REASON FOR VISIT DX: Z01.812 Encounter for preprocedural laboratory examination FINAL DX: PRINCIPAL: Z01.812 Encounter for preprocedural laboratory examination SECONDARY: Z11.59 Encounter for screening for other viral diseases R12 Heartburn PYMT PROC APC STAT DESCRIPTION DOCTOR NAME DATE NOTE: The code number assigned matches the documented diagnosis and / or procedure in the patient's chart. However, the narrative phrase printed from the coding software may appear abbreviated, or result in slightly different terminology. Coded By: Saima Hayes CphT Date Saved: 07/15/2020 12:25 pm Normal [facility] Priority Order-Isra 2019 Priority Order-STAT Comment Invalid Interpretation Code [facility] Comment on above: Result Comment: Rece ived Performed at: [facility] [place] [id number] MD Fredy Larson Performed By: #### S ARS-CoV-2, SHERRIE, [id number] #### [facility] [address] [place] [address] SARS-CoV-2, NAAon 06-25-2020 SARS-CoV-2 (COVID-19) RNA SHERRIE+probe Ql (Resp) Not detected Invalid Interpretation Code Not Detected [facility] Comment on above: Result Comment: This nucleic acid amplification test was developed and its performance characteristics determined by [employer]. Nucleic acid amplification tests include PCR and TMA. This test has not been FDA cleared or approved. This test has been authorized by FDA under an Emergency Use Authorization (EUA). This test is only authorized for the duration of time the declaration that circumstances exist justifying the authorization of the emergency use of in vitro diagnostic tests for detection of SARS-CoV-2 virus and/or diagnosis of COVID-19 infection under section 564(b)(1) of the Act, 21 U.S.C. 360bbb-3(b) (1), unless the authorization is terminated or revoked sooner. When diagnostic testing is negative, the possibility of a false negative result should be considered in the context of a patient's recent exposures and the presence of clinical signs and symptoms consistent with COVID-19. An individual without symptoms of COVID-19 and who is not shedding SARS-CoV-2 virus would expect to have a negative (not detected) result in this assay. Performed at: [facility] [address] [place] [id number] MD Fredy Larson Performed By: #### S ARS-CoV-2, SHERRIE, [id number] #### [facility] [address] [place] [address] [place] 06-20-2020 Consent [id number] CD:127 Normal [facility] Pre-Certification Formon Pre-Certification Form [id number]:127 [facility] Physician Orderon 06-19-2020 Physician Order [id number]:127 Normal [facility] Ambulatory Clinical Summaryo n 06-17-2020 Ambulatory Clinical Summary {[id number]}CD:[id number] Zaira kilgore [facility] Gastroenterology Office/Clin ic Noteon 06-17-2020 Gastroenterology Office/Clinic Note Chief Complaint GERD HPI Staff This is a 59 year old female who presents today for a referral from [place] for GERD. History of Present Illness 59 years old white female was referred to me to be evaluated for heartburn and reflux symptoms, her heartburn did not respond to any of the PPI but into improved with Tagamet, reports no dysphagia, no melena, occasional rectal bleeding, no fever chills, she had last colonoscopy done at outside facility few years ago and she was told that she is not due for it yet, no fever chills, no melena, occasional rectal bleeding Review of Systems PHQ Score Initial Depression Screen Score: 0 Constitutional: no fever, no chills, no sweats, no weakness Skin: no Jaundice, no rash, no lesions, no petechiae ENMT: no ear pain, no sore throat, no congestion, no hoarseness Respiratory: no shortness of breath, no cough, no orthopnea, no wheezing Cardiovascular: no chest pain, no palpitations, no edema Gastrointestinal: no nausea, no vomiting, no diarrhea, no Constipation noGI bleeding no abd pain no dysphagia no bloating no heartburn Genitourinary: no dysuria, no hematuria, no discharge, no pain Musculoskeletal: no back pain, no trauma Neurologic: no numbness, no sleeping problems Additional ROS info: Except as noted in the above Review of Systems and in the History of Present Illness all other systems have been reviewed and are negative or noncontributory. Physical Exam Vitals & Measurements T: 35.9 ?C (Temporal Artery) HR: 75(Peripheral) RR: 16 BP: 139/90 HT: 154.0 cm HT: 154 cm WT: 71.9 kg WT: 71.9 kg BMI: 30.32 Constitutional: Appearance: well developed Skin: Inspection: no rashes, ulcers, icterus , or telangiectasias. Eyes: Conjunctivae/lids: normal conjunctivae and lids. ENMT: Hearing: within normal limits. Lips/Teeth/Gums: normal oral mucosa Neck: Neck: normal motion, central trachea. Respiratory: Percussion: thorax normoresonant. Auscultation: normal breath sounds; no rubs, wheezes, rale or ronchi. Cardiovascular: Auscultation: normal rhythm, S1 and S2; no rubs, murmurs or gallop. Peripheral: no edema Gastrointestinal/Abdomen: Abdomen: normal consistency and bowel sounds; no tenderness or masses. Liver/Spleen: normal size and consistency, not palpable. Rectal: deferred Musculoskeletal: Gait/station: normal gait Assessment/Plan 1. Heartburn (R12: Heartburn) Not improving with BARAK, better with Tagamet, will proceed with EGD given her prior history of ulcer disease and will take samples of gastric mucosa to evaluate for H. pylori Ordered: EGD Endoscopy (Hospital Procedure) 2. Screen for colon cancer (Z12.11: Encounter for screening for malignant neoplasm of colon) Done at outside facility, not due 3. Smoker (F17.200: Nicotine dependence, unspecified, uncomplicated) We strongly recommend to quit tobacco use. Cigarette smoking harms nearly every organ of the body, causes many diseases, and reduces the health of smokers in general. Quitting smoking lowers your risk for smoking-related diseases and can add years to your life. We encourage you to visit www.smokefree.gov access to helpful resources including free telephone support. If you decide on prescription treatment to help you quit, we would be happy to provide these. Orders: cimetidine, 200 mg = 1 tab(s), Oral, BID, # 60 tab(s), Refills(s) 11, Pharmacy: [id number], 154, cm, 06/17/20 12:27:00 EDT, Height/Length Dosing, 71.9, kg, 06/17/20 12:27:00 EDT, Weight Dosing Follow-up With When Contact Information Gladys CUETO MD Within 2 weeks [facility] [address] [place] [address]- Additional Instructions: Patient Education Heartburn Problem List/Past Medical History Ongoing Smoker Historical No qualifying data Procedure/Surgical History Colonoscopy, EGD - Esophagogastroduodenoscopy, Gall bladder, Hysterectomy. Medications atorvastatin, Oral, Daily cimetidine 200 mg oral tablet, 200 mg= 1 tab(s), Oral, BID, 11 refills Lipitor, Oral, Daily Percocet 2.5 mg-325 mg oral tablet, Oral, q6hr Allergies sulfa drugs (Hives) Social History Tobacco 4 or less cigarettes(less than 1/4 pack)/day in last 30 days, Smoker, current status unknown Tobacco Use:. Cigarettes, Yes, 06/17/2020 Family History Diabetes mellitus type 1: Mother and Father. Primary malignant neoplasm of prostate: Father. Normal [facility] Comment on above: Result Comment: Elec tronically Signed By: Gladys CUETO MD\.br\Date and Time Signed: 06/17/20 13:06 EDT Patient Educationon 06-17-20 20 Patient Education Family Medicine Heartburn Heartburn is a painful, burning sensation in the chest. It may feel worse in certain positions, such as lying down or bending over. It is caused by stomach acid backing up into the tube that carries food from the mouth down to the stomach (lower esophagus ). CAUSES ? Large meals. ? Certain foods and drinks. ? Exercise. ? Increased acid production. ? Being overweight or obese. ? Certain medicines. SYMPTOMS ? Burning pain in the chest or lower throat. ? Bitter taste in the mouth. ? Coughing. DIAGNOSIS If the usual treatments for heartburn do not improve your symptoms, then tests may be done to see if there is another condition present. Possible tests may include: ? X-rays. ? Endoscopy. This is when a tube with a light and a camera on the end is used to examine the esophagus and the stomach. ? A test to measure the amount of acid in the esophagus (pH test). ? A test to see if the esophagus is working properly (esophageal manometry). ? Blood, breath, or stool tests to check for bacteria that cause ulcers. TREATMENT ? Your caregiver may tell you to use certain vwnb-xuq-apqtrjh medicines (antacids, acid reducers) for mild heartburn. ? Your caregiver may prescribe medicines to decrease the acid in your stomach or protect your stomach lining. ? Your caregiver may recommend certain diet changes. ? For severe cases, your caregiver may recommend that the head of your bed be elevated on blocks. (Sleeping with more pillows is not an effective treatment as it only changes the position of your head and does not improve the main problem of stomach acid refluxing into the esophagus.) HOME CARE INSTRUCTIONS ? Take all medicines as directed by your caregiver. ? Raise the head of your bed by putting blocks under the legs if instructed to by your caregiver. ? Do not exercise right after eating. ? Avoid eating 2 or 3 hours before bed. Do not lie down right after eating. ? Eat small meals throughout the day instead of 3 large meals. ? Stop smoking if you smoke. ? Maintain a healthy weight. ? Identify foods and beverages that make your symptoms worse and avoid them. Foods you may want to avoid include: ? Peppers. ? Chocolate. ? High-fat foods, including fried foods. ? Spicy foods. ? Garlic and onions. ? [place] fruits, including oranges, grapefruit, jacqui, and limes. ? Food containing tomatoes or tomato products. ? Mint. ? Carbonated drinks, caffeinated drinks, and alcohol. ? Vinegar. SEEK IMMEDIATE MEDICAL CARE IF: ? You have severe chest pain that goes down your arm or into your jaw or neck. ? You feel sweaty, dizzy, or lightheaded. ? You are short of breath. ? You vomit blood. ? You have difficulty or pain with swallowing. ? You have bloody or black, tarry stools. ? You have episodes of heartburn more than 3 times a week for more than 2 weeks. MAKE SURE YOU: ? Understand these instructions. ? Will watch your condition. ? Will get help right away if you are not doing well or get worse. Document Released: 01/30/2010 Document Revised: 12/05/2012 Document Reviewed: 02/28/2012 ExitCare? Patient Information ?2013 [employer]. [facility] Formson 06-12-2020 Forms [id number]: 127 [facility] CNOVon 03-17-2018 [facility] Office Visit (AGHWW1) --------FAUSTO CORRIGAN ([id number]) 1960 [facility] Time Provider Department03/17/18 1:30 PM THOMAS DELGADILLO AGHWW1 During your visit today, we recorded the following information about you: Respiration Weight Height 12/minute 73 kg 1.499 Juan A Delgadillo DPM 04/17/2018 9:37 AM SignedCC: Ankle pain right ankleHPI: This 57 year old female with PMH indicated below presents complaining ofright ankle pain x 1 year. States that the outside of the ankle hurts. Patientadmits to feelings of instability. Patient admits to history of ankle sprainsin the past. Patient denies popping and clicking sensations. Patient admits toto taking any analgesics. States that pain is greatest to the outside of theankle, and rated as 6/10 and worst after prolonged WB. No acute trauma.Patient denies any catching or locking of the ankle. Patient states she had acalcaneal fracture about 6 years ago and was told she may need further surgeryin the future. Denies any other pedal complaints.PAST MEDICAL HISTORYDiagnosis Date- COPD (chronic obstructive pulmonary disease) (HCC)- Diverticulitis- Fistula- GERD (gastroesophageal reflux disease)- HTN (hypertension)- Hyperthyroidism- PUD (peptic ulcer disease)Current Outpatient Prescriptions:albuterol HFA (PROVENTIL HFA, VENTOLIN HFA) 90 mcg/actuation inhaler Inhale 1-2Puffs as instructed every 4 hours as needed for Wheezing/Shortness of Breath.Disp: 1 Inhaler Rfl: 2albuterol (PROVENTIL) 2.5 mg /3 mL (0.083 %) nebulizer solution inhale contentsof 1 vial in nebulizer four times a day if needed Disp: Rfl: 0doxycycline hyclate (VIBRAMYCIN) 100 mg capsule Take 100 mg by mouth twicedaily. Disp: Rfl: 0predniSONE (DELTASONE) 10 mg tablet take 4 tablets by mouth once daily for 3days then 3 tablets once... (REFER TO PRESCRIPTION NOTES). Disp: Rfl: 0atenolol-chlorthalidone (TENORETIC) 50-25 mg per tablet Take 1 tablet by mouthonce daily. Disp: Rfl: 0fluticasone-salmeterol (ADVAIR) 500-50 mcg/dose dsdv Inhale 1 Puff asinstructed twice daily. Rinse mouth out after use Disp: 1 Inhaler Rfl: 11albuterol HFA (PROVENTIL HFA) 90 mcg/actuation inhaler Inhale 2 Puffs asinstructed every 4 hours as needed (for shortness of breath and wheezing.).Disp: 1 Inhaler Rfl: 5oxyCODONE-acetaminophen (PERCOCET) 5-325 mg tablet Take 1 tablet by mouth every4 hours as needed. Disp: Rfl:acetaminophen (TYLENOL EXTRA STRENGTH) 500 mg tablet Take 1,000 mg by mouthevery 8 hours as needed. Disp: Rfl:ranitidine (ZANTAC) 150 mg tablet Take 150 mg by mouth twice daily. Disp: Rfl:docusate sodium (STOOL SOFTENER) 100 mg capsule Take 100 mg by mouth threetimes daily. Disp: Rfl:No current facility-administered medications for this visit.ALLERGIESAllergen Reactions- Sulfa (Sulfonamide * Hives, AnaphylaxisPAST SURGICAL HISTORYProcedure Laterality Date- PAST SURGICAL HISTORY OF CHERI- PAST SURGICAL HISTORY OF gullbladder removed- PAST SURGICAL HISTORY OF rt rotator cuff repair- PAST SURGICAL HISTORY OF appendix removed- PAST SURGICAL HISTORY OF wisdom teeth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 hours as needed. Disp: Rfl:acetaminophen (TYLENOL EXTRA STRENGTH) 500 mg tablet Take 1,000 mg by mouthevery 8 hours as needed. Disp: Rfl:ranitidine (ZANTAC) 150 mg tablet Take 150 mg by mouth twice daily. Disp: Rfl:docusate sodium (STOOL SOFTENER) 100 mg capsule Take 100 mg by mouth threetimes daily. Disp: Rfl:No current facility-administered medications for this visit.ALLERGIESAllergen Reactions- Sulfa (Sulfonamide * Hives, AnaphylaxisREVIEW OF SYSTEMSGeneral: No weight loss, malaise or fevers.Neuro: No history of TIA's, stroke, VEGETABLE WORKER tumor, impaired sensorium, hemiplegia,paraplegia or quadriplegia. No neurological symptoms or problems.Respiratory: COPD on nebulizersCardiovascular: No history of HTN requiring medication, no history of angina,CHF, AK, cardiac surgery or stents. Denies rest pain, gangrene orrevascularization/amputation for PVD. No history of cardiovascular symptoms orproblems.GI: Peptic Ulcer Disease on ZantacGU: No history of UTI in past 6 weeks. No history of renal failure. Notcurrently on or requiring dialysis. No history of symptoms or problems.ADOLESCENT COORDINATOR: No vaginal bleeding due to menopause and no abnormal vaginal discharge.,LMP: N/AEndocrine: No history of diabetes. Has not taken steroids within the past 30days. No history of endocrinological symptoms or problems.Hematology: No history of bleeding or clotting disorder. No history ofhematological symptoms or problems.Oncology: No history of CA metastasis, chemo within 30 days, or radiotherapywithin 90 days. No history of oncological symptoms or problems.Psych: No history of psychiatric symptoms or problems.Skin: Negative for lesions, rash, and itching.PHYSICAL EXAMVITALS: BP 120/69 Pulse 75 Temp (Src) 97.6 (Oral) Ht 5' 0ANDquot; (1.52m) Wt 161 lb (73.0kg) SpO2 96% BMI 31.44 kg/(m2).General: Alert and orientedSkin: Normal color, no rash, no lesions.HEENT: EOM, pupils equal, round and reactive.Cardiovascular: Normal S1 ANDamp; S2, no rubs, murmurs or gallops. No JVD. Pulseregular.Lungs: Normal breath sounds, no wheezes or crackles.Abdomen: Soft, non-tender, no rigidity.Extremities: No deformity, no edema or tenderness, no joint swelling orclubbing.Neurological: Normal cognition and motor skills.Pulses: Carotid and radial pulses normal +2.ASSESSMENTMsChrista Corrigan is a 57 year old female referred to me for preoperative evaluation.Patient has the following medical comorbidities which might affect theperioperative course:COPD- on PrednisoneRecent URI -HTNDiverticulitisPatient's RCRI (Revised Cardiac Risk Index: CAD/CHF/Stroke or TIA/SCrANDgt;2/DMon Insulin/High Risk Surgery) score is 0 and is at low risk for major adversecardiac events in the perioperative period.Diagnostic tests reviewed for today's visit:Most recent labsPLAN/RECOMMENDATIONSCARDIAC: Patient is at optimal cardiac condition for scheduled surgery / procedure.PULMONARY: Patient is at optimal Pulmonary status for scheduled surgery / procedure.Slightly higher risk of pulmonary complications because of COPDVASCULAR/ANTICOAGULATION: VTE prophylaxis as deemed appropriate by the surgical service.ENDOCRINOLOGY - On Prednisone now and had a course of steroids recently -recommend stress dose steroids - Hydrocortisone 50 mg IV before induction andQ8 for 24 hoursEKG- Normal Sinus RhythmPatient is optimally prepared for surgery.ADDENDUM: Labs are back - reviewed - WBC count 13.36 - pt on Steroids.Otherwise labs unremarkable- pt is optimally prepared for SurgeryPatient Instructions: As per patient instructions section.I have discussed the above recommendations with the patient in detail, in frankand lay terms, and provided a written summary of instructions as needed. Wehave discussed that no surgery is without risk, but that the goal ofpreoperative assessment is to optimize that risk, and that was clearlyunderstood by the patient. I have given ample opportunity for the patient toask questions, and answered all questions to their stated satisfaction.SIGNATURE: Rivera Patricia MD PATIENT NAME: Fausto Salcido: July 25, 2017 : 1:49 Sarah Kirkpatrick MACHINE ENGINEER 07/26/2017 4:05 PM Beni Corrigan is a 57 year old female here today for visit in IMPACTReferring Surgeon: Dr. Fernandez of Surgery: 08/03/2017Planned Surgery/Procedure: Sigmoid Colectomy w/ Treverergies have been reviewed and verified. They include the following:Sulfa (Sulfonamide Antibiotics)Social HistorySubstance Use Topics- Smoking status: Former Smoker Years: 20.00 Types: Cigarettes Start date: 06/07/1997 Quit date: 06/26/2017- Smokeless tobacco: Never Used Comment: smokes 3-4 daily- Alcohol use NoMedications reviewed and updated: Armida Patricia MD 07/26/2017 4:05 PM Signed [facility]Patient Instructions for SurgeryFOOD INSTRUCTIONS:NO solid food or non-clear liquids for 8 hours prior to the arrival time foryour surgery. Unless you are instructed otherwise, you are allowed to drink upto 12 ounces of clear liquids (e.g. water, black tea/coffee, fruit juicewithout pulp, Chelsie Rossy, etc.) up until 2 hours prior to the arrival time forsurgery.MEDICATION INSTRUCTIONS: Prior to Surgery:Do not take the following medications for 7 days prior to surgery: - any NSAID's (e.g. Motrin, Aleve, Arthrotec, Naproxen,etc) - any herbal preparations - Aspirin or aspirin containing products - PlavixDo not take any Vitamin E / multivitamins for 10-14 days before surgeryYou are allowed to take Tylenol if needed until the day of surgery.MEDICATION INSTRUCTIONS: Day/Morning of Surgery:Do not take any medications.If you have any questions or concerns regarding today's visit please do nothesitate to contact the [facility] at [phone] or [phone], [phone].Signature: Rivera Patricia MDDate: July 26, 2017Referring Provider: ESEQUIEL THOMAS [[id number]]Allergies As of Date: 07/26/2017 Noted Allergy ReactionSULFA (SULFONAMIDE ANTIBIOTICS) 06/07/2017 4 - Hives 10 - AnaphylaxisDate Reviewed: 07/26/2017Reviewed by: Sis Kirkpatrick LPN - Fully AssessedPrimary Visit Diagnosis:Chronic obstructive pulmonary disease, unspecified COPD type ([facility]) [J44.9] Other Visit Diagnoses:Pre-operative examination [Z01.818] Upper respiratory tract infection, unspecified type [J06.9] PUD (peptic ulcer disease) [K27.9]Prescriptions as of 07/26/2017 Sig: ALBUTEROL SULFATE 2.5 MG/3 ML* inhale contents of 1 vial in * DOXYCYCLINE HYCLATE 100 MG CA* Take 100 mg by mouth twice da* PREDNISONE 10 MG TABLET take 4 tablets by mouth once * ATENOLOL 50 MG- CHLORTHALIDONE* Take 1 tablet by mouth once d* FLUTICASONE 500 MCG-SALMETERO* Inhale 1 Puff as instructed t* ALBUTEROL SULFATE HFA 90 MCG/* Inhale 2 Puffs as instructed * OXYCODONE-ACETAMINOPHEN 5 MG-* Take 1 tablet by mouth every * ACETAMINOPHEN 500 MG TABLET Take 1,000 mg by mouth every * RANITIDINE 150 MG TABLET Take 150 mg by mouth twice da* DOCUSATE SODIUM 100 MG CAPSULE Take 100 mg by mouth three ti*Medication notes this encounter DOXYCYCLINE HYCLATE 100 MG CAPSULE >> Sis Kirkpatrick [facility] 07/26/2017 3:41 PM >> SIS JOSUE* WedJul 26, 2017 3:41 PM PREDNISONE 10 MG TABLET >> Sis Kirkpatrick [facility] 07/26/2017 3:41 PM >> SIS JOSUE* WedJul 26, 2017 3:41 PM ATENOLOL 50 MG-CHLORTHALIDONE 25 MG TABLET >> Sis Kirkpatrick [facility] 07/26/2017 3:41 PM >> SIS JOSUE WedJul 26, 2017 3:41 PM OXYCODONE-ACETAMINOPHEN 5 MG-325 MG TABLET >> Sis Kirkpatrick [facility] 07/26/2017 3:41 PM >> SIS JOSUE* WedJul 26, 2017 3:41 PM DOCUSATE SODIUM 100 MG CAPSULE >> Sis Kirkpatrick [facility] 07/26/2017 3:41 PM >> SIS JOSUE WedJul 26, 2017 3:41 PMProblem List As Of Date 07/26/2017 Noted Resolved 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 Other instructions from your clinician: [facility] Patient Instructions for Surgery FOOD INSTRUCTIONS: NO solid food or non-clear liquids for 8 hours prior to the arrival time for your surgery. Unless you are instructed otherwise, you are allowed to drink up to 12 ounces of clear liquids (e.g. water, black tea/coffee, fruit juice without pulp, Chelsie Rossy, etc.) up until 2 hours prior to the arrival time for surgery. MEDICATION INSTRUCTIONS: Prior to Surgery: Do not take the following medications for 7 days prior to surgery: - any NSAID's (e.g. Motrin, Aleve, Arthrotec, Naproxen,etc) - any herbal preparations - Aspirin or aspirin containing products - Plavix Do not take any Vitamin E / multivitamins for 10-14 days before surgery You are allowed to take Tylenol if needed until the day of surgery. MEDICATION INSTRUCTIONS: Day/Morning of Surgery: Do not take any medications. If you have any questions or concerns regarding today's visit please do not hesitate to contact the [facility] center at [phone] or [phone], ext [phone]. Signature: Rivera Patricia MD Date: July 26, 2017Encounter Number: [id number] Status:Closed by RIVERA PATRICIA MD on 07/26/17 Normal [facility] CNOV Office Visit (ENDOMN) --------FAUSTO CORRIGAN ([id number]) 1960 [facility] Time Provider Vzaysnqbfs82/30/17 1:20 PM IVAN HYDE) ENDOMN During your visit today, we recorded the following information about you: Weight 73 kgToshia Javed, RN, RN 07/26/2017 2:21 PM SignedThank you for choosing the [facility] Department of Endocrinology,Diabetes and Metabolism. Being able to provide excellent health care hasallowed us to be # 3 in the country according to USNews ANDamp; World Report.Did you know that you need to call 48 hours in advance of your scheduled visit,if you are unable to make your appointment? The [facility]In[facility] thanks you for your commitment, because patients not showing to theirappointment results in a lost opportunity for patients to receive [facility] care at the [facility].To Cancel an appointment, please choose one of the following: - Call the Appointment Call Center at [phone] - From [facility], Go to Appointments ? Cancel ApptsIf cancelling, consider your need to reschedule to prevent further delays inyour care.To Schedule an appointment, please choose one of the following: - Call the Appointment Call Center at [phone] - From [facility], Go to Appointments ? Request an Samara Hyde MD 07/27/2017 11:34 PM SignedDIABETES INITIAL CONSULTPATIENT NAME: Fausto CorriganMRN: [id number] DATE: 07/26/2017SERVICE TIME:REASON FOR CONSULT: DM Type 2REQUESTING PHYSICIAN:Ivan Hyde MD[address] [address]YABYXBD CARE PHYSICIAN: No PcpSUBJECTIVEHISTORY OF PRESENT ILLNESS: Ms. Corrigan is a 57 year old female presenting as anew patient to me regarding DM Type 2. She was initially diagnosed withprediabetes in 2008 . She does have a family history of diabetes mellitus inher Mother. The patient has no known microvascular complications of diabetes.Fausto has no know macrovascular complications of diabetes.. She is notcurrently on pharmacologic therapy for diabetes. She had been treated withmetformin. Regarding symptoms of hyperglycemia, she is not experiencing anysymptoms such as polyuria, polydipsia, nocturia or rapid weight loss or blurryvision.She is taking a tapering course of prednisonepredniSONE (DELTASONE) 10 mg tablet 0 06/28/2017 ?? Sig: take 4 tablets by mouth once daily for 3 days then 3 tablets oncePAST MEDICAL HISTORYDiagnosis Date- COPD (chronic obstructive pulmonary disease) (HCC)- Diverticulitis- Fistula- GERD (gastroesophageal reflux disease)- HTN (hypertension)- Hyperthyroidism- PUD (peptic ulcer disease)PAST SURGICAL HISTORYProcedure Laterality Date- PAST SURGICAL HISTORY OF CHERI- PAST SURGICAL HISTORY OF gullbladder removed- PAST SURGICAL HISTORY OF rt rotator cuff repair- PAST SURGICAL HISTORY OF appendix removed- PAST SURGICAL HISTORY OF wisdom teeth removed- PAST SURGICAL HISTORY OF Right knee repair and foot repair, MVAFAMILY HISTORYProblem Relation Age of Onset- Cancer Father- Heart Disease [OTHER] Father- HTN [OTHER] Father- Cancer Mother- heart disease [OTHER] MotherSocial HistorySubstance Use Topics- Smoking status: Former Smoker Years: 20.00 Types: Cigarettes Start date: 06/07/1997 Quit date: 06/26/2017- Smokeless tobacco: Never Used Comment: smokes 3-4 daily- Alcohol use NoCURRENT MEDICATION:Current Outpatient Prescriptions:albuterol (PROVENTIL) 2.5 mg /3 mL (0.083 %) nebulizer solution inhale contentsof 1 vial in nebulizer four times a day if needed Disp: Rfl: 0doxycycline hyclate (VIBRAMYCIN) 100 mg capsule Take 100 mg by mouth twicedaily. Disp: Rfl: 0predniSONE (DELTASONE) 10 mg tablet take 4 tablets by mouth once daily for 3days then 3 tablets once... (REFER TO PRESCRIPTION NOTES). Disp: Rfl: 0atenolol-chlorthalidone (TENORETIC) 50-25 mg per tablet Take 1 tablet by mouthonce daily. Disp: Rfl: 0fluticasone-salmeterol (ADVAIR) 500-50 mcg/dose dsdv Inhale 1 Puff asinstructed twice daily. Rinse mouth out after use Disp: 1 Inhaler Rfl: 11albuterol HFA (PROVENTIL HFA) 90 mcg/actuation inhaler Inhale 2 Puffs asinstructed every 4 hours as needed (for shortness of breath and wheezing.).Disp: 1 Inhaler Rfl: 5oxyCODONE-acetaminophen (PERCOCET) 5-325 mg tablet Take 1 tablet by mouth every4 hours as needed. Disp: Rfl:acetaminophen (TYLENOL EXTRA STRENGTH) 500 mg tablet Take 1,000 mg by mouthevery 8 hours as needed. Disp: Rfl:ranitidine (ZANTAC) 150 mg tablet Take 150 mg by mouth twice daily. Disp: Rfl:docusate sodium (STOOL SOFTENER) 100 mg capsule Take 100 mg by mouth threetimes daily. Disp: Rfl:No current facility- administered medications for this visit.Allergies As of Date: 07/26/2017Allergen Noted ReactionSULFA (SULFONAMIDE ANTIBIOTICS) 06/07/2017 Hives and AnaphylaxisFully Assessed 07/26/2017General: no fever, chills or acute changes in weight in the last 6 monthsSkin: no rashes, pruritis or dry skinEyes: no blurred or double vision or eye painCardiac: denies chest pain, heart palpitations or orthopneaPulmonary: dyspneaGI: denies nausea, vomiting, diarrhea or constipationNeuro: denies numbnes/tingling in hands or feet and denies seizuresMusc: denies history of upper or lower extremity weaknessEndocrine: denies polyuria, polydipsia, nocturia, blurry vision or excessivefatigueHematology: Negative for anemia, easy bleeding and bruising.OBJECTIVEPHYSICAL EXAM:Wt 73 kg (161 lb) BMI 31.61 kg/t3Qmryahp: Well appearing, alert, in no acute distress, well-hydrated, wellnourished.Skin: skin color, texture, turgor normal, no rashes or lesions.Head: normocephalic, no masses, lesions, tenderness or abnormalities.Eyes: Anicteric sclera. Pupils are equally round and reactive to light.Extraocular movements are intact.Oropharynx: Lips, mucosa, and tongue normal, teeth and gums normal, oropharynxnormalNeck: Supple, no adenopathy; thyroid symmetric, normal size, no bruitsHeart: RRR without murmur, gallop, or rubs. No ectopyAbdomen: soft, non-tender, positive bowel soundsExtremities: no edema, no calluses or ulcers present.Peripheral Pulses: posterior tibial and doralis pedis pulses 2+ and symmetricalDATA:Diagnostic tests reviewed for today's visit:Results for FAUSTO CORRIGAN ( ) as of 07/27/2017 23:27 Ref. Range 07/26/2017 10:48Sodium Latest Ref Range: 136 - 144 mmol/L 139Potassium Latest Ref Range: 3.7 - 5.1 mmol/L 3.9Chloride Latest Ref Range: 97 - 105 mmol/L 96 (L)CO2 Latest Ref Range: 22 - 30 mmol/L 25BUN Latest Ref Range: 7 - 21 mg/dL 20Creatinine Latest Ref Range: 0.58 - 0.96 mg/dL 0.98 (H)Glucose Latest Ref Range: 74 - 99 mg/dL 133 (H)Protein, Total Latest Ref Range: 6.3 - 8.0 g/dL 7.5Calcium Latest Ref Range: 8.5 - 10.2 mg/dL 9.8Albumin Latest Ref Range: 3.9 - 4.9 g/dL 4.3Bilirubin, Total Latest Ref Range: 0.2 - 1.3 mg/dL 0.2Alkaline Phosphatase Latest Ref Range: 32 - 117 U/L 96ALT Latest Ref Range: 7 - 38 U/L 19AST Latest Ref Range: 13 - 35 U/L 16Anion Gap Latest Ref Range: 9 - 18 mmol/L 18eGFR- Unknown ANDgt;60eGFR-All Other Races Latest Units: . 59IMPRESSION/RECOMMENDATIONSFausto Corrigan is a very pleasant 57 year old yo female with hx of:1.- DMT2 for the last 8 years. She will start taking it again metformin 500mg twice a day. She has medication at home. Of importance is that today herfasting blood sugar was 1 33 mg/dL. We ordered a hemoglobin A1c which has notbeen done. We will see her back in 6 weeks a repeat hemoglobin A1c. Her bloodsugars should improve once she is off steroids.SIGNATURE: BIJU AlmanzarATE: July 26, 2017TIME: 2:32 PMReferring Provider: IVAN HYDE) [[id number]]Allergies As of Date: 07/26/2017 Noted Allergy ReactionSULFA (SULFONAMIDE ANTIBIOTICS) 06/07/2017 4 - Hives 10 - AnaphylaxisDate Reviewed: 07/26/2017Reviewed by: Sis Kirkpatrick [facility] - Fully AssessedReason for Visit: Diabetes [34]Primary Visit Diagnosis:Uncontrolled type 2 diabetes mellitus without complication, without long-term current use of insulin ([facility]) [E11.65]Order(s):HB A1C B/O [9751430] Order #: [id number] TSH BLD [SQTSH] Order #: [id number] FUTUREPrescriptions as of 07/26/2017 Sig: ALBUTEROL SULFATE 2.5 MG/3 ML* inhale contents of 1 vial in * DOXYCYCLINE HYCLATE 100 MG CA* Take 100 mg by mouth twice da* PREDNISONE 10 MG TABLET take 4 tablets by mouth once * ATENOLOL 50 MG-CHLORTHALIDONE* Take 1 tablet by mouth once d* FLUTICASONE 500 MCG-SALMETERO* Inhale 1 Puff as instructed t* ALBUTEROL SULFATE HFA 90 MCG/* Inhale 2 Puffs as instructed * OXYCODONE-ACETAMINOPHEN 5 MG-* Take 1 tablet by mouth every * ACETAMINOPHEN 500 MG TABLET Take 1,000 mg by mouth every * RANITIDINE 150 MG TABLET Take 150 mg by mouth twice da* DOCUSATE SODIUM 100 MG CAPSULE Take 100 mg by mouth three ti*Problem List As Of Date 07/26/2017 Noted Resolved 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 Other instructions from your clinician: Thank you for choosing the [facility] Department of Endocrinology, Diabetes and Metabolism. Being able to provide excellent health care has allowed us to be # 3 in the country according to [employer]. Did you know that you need to call 48 hours in advance of your scheduled visit, if you are unable to make your appointment? The Endocrinology and Metabolism [place] thanks you for your commitment, because patients not showing to their appointment results in a lost opportunity for patients to receive [employer] health care at the [facility]. To Cancel an appointment, please choose one of the following: - Call the Appointment Call Center at [phone] - From [place], Go to Appointments ? Cancel Appts If cancelling, consider your need to reschedule to prevent further delays in your care. To Schedule an appointment, please choose one of the following: - Call the Appointment Call Center at [phone] - From [place], Go to Appointments ? Request an ApptEncounter Number: [id number] Status:Closed by IVAN HYDE MD on 07/27/17 Normal [facility] CNOV Office Visit (LUCIA) --------FAUSTO CORRIGAN ([id number]) 1960 [facility] Time Provider Ubttcpurqk92/30/17 9:50 AM AIMEE HERNANDEZ During your visit today, we recorded the following information about you: Temperature Pulse Respiration Blood pressure 98.5 degrees 74/minute 20/minute 116/67 Weight Height 73 kg 1.524 Jo Hernandez MD 07/26/2017 3:23 PM SignedRespiratory InstitutePulmonary ConsultationCC: Pre- operative evaluationConsultation requested by Dr. Thomas for a pre-operative pulmonary evaluation.My final recommendations will be communicated to the requesting health careprovider by way of the shared medical record for internal providers or lettervia the [facility] for external providers.HISTORY OF PRESENT ILLNESSFausto Corrigan is a 57 year old female with a history of COPD who presents for apre-op evaluation for a sigmoid colectomy w/ colorectal anastomosis for repairof colovaginal fistula.Pt previously has had her COPD treated by her family physician. Not on anyinhalers currently but been on different ones before. Recently notes she has 4grandchildren and gets infections from them a lot. Recent bronchitis started amonth ago. Was just prescribed course of steroid/antibiotic for the bronchitis.Was given a course about a month ago as well but didn't get better. Usuallygets bronchitis 2x a year especially when the weather changes. Surgery waspostponed to August 24 due to the illness.Previously been on inhalers which include advair, symbicort, spiriva and saidthey helped. Also has history of asthma as a child. Gets bronchitis 2 a year.Gets sinus infections too with bad postnasal gtt. Takes OTC zyrtec for sinuses.Has tried nasal sprays before but doesn't have good response. She notesallergies to pollen, possibly dust. Never been tested before. Doesn't want nick tested today. She has a dog but denies that she is allergic.Changes in the seasons really bother her breathing. Also has GERD - on zantacNebulizer using 2 times a day just started because sick. Not on inhalerscurrently right now but been on them before and felt like that helpedHistory pneumonia 14 years ago requiring hospitalization. Up to date onpneumonia shots. Declines flu shot today.PAST MEDICAL/SURGICAL/SOCIAL HISTORYPAST MEDICAL HISTORYDiagnosis Date- COPD (chronic obstructive pulmonary disease) (HCC)- Diverticulitis- Fistula- GERD (gastroesophageal reflux disease)- HTN (hypertension)- Hyperthyroidism- PUD (peptic ulcer disease)PAST SURGICAL HISTORYProcedure Laterality Date- PAST SURGICAL HISTORY OF CHERI- PAST SURGICAL HISTORY OF gullbladder removed- PAST SURGICAL HISTORY OF rt rotator cuff repair- PAST SURGICAL HISTORY OF appendix removed- PAST SURGICAL HISTORY OF wisdom teeth removed- PAST SURGICAL HISTORY OF Right knee repair and foot repair, MVAFAMILY HISTORYProblem Relation Age of Onset- Cancer Father- Heart Disease [OTHER] Father- HTN [OTHER] Father- Cancer Mother- heart disease [OTHER] MotherMom - pancreatic cancer, never smoker but had emphysemaAunt - breast cancerFather - bladder cancer, had emphysemaSister - house fire, got emphysemaSocial History Marital status: Spouse name: Years of education: Number of children:Social History Main Topics Smoking status: Former Smoker Packs/day: 0.00 Years: 20.00 Types: Cigarettes Start date: 06/07/1997 Quit date: 06/26/2017 Smokeless status: Never Used Comment: smokes 3-4 daily Alcohol use: No Drug use: NoPrivate home paraprofessional for elderly peopleGets sick a lot from themPreviously 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 Disp: Rfl: 0predniSONE (DELTASONE) 10 mg tablet take 4 tablets by mouth once daily for 3days then 3 tablets once... (REFER TO PRESCRIPTION NOTES). Disp: Rfl: 0atenolol-chlorthalidone (TENORETIC) 50-25 mg per tablet Take 1 tablet by mouthonce daily. Disp: Rfl: 0oxyCODONE-acetaminophen (PERCOCET) 5-325 mg tablet Take 1 tablet by mouth every4 hours as needed. Disp: Rfl:acetaminophen (TYLENOL EXTRA STRENGTH) 500 mg tablet Take 1,000 mg by mouthevery 8 hours as needed. Disp: Rfl:ranitidine (ZANTAC) 150 mg tablet Take 150 mg by mouth twice daily. Disp: Rfl:docusate sodium (STOOL SOFTENER) 100 mg capsule Take 100 mg by mouth threetimes daily. Disp: Rfl:fluticasone-salmeterol (ADVAIR) 500-50 mcg/dose dsdv Inhale 1 Puff asinstructed twice daily. Rinse mouth out after use Disp: 1 Inhaler Rfl: 11albuterol HFA (PROVENTIL HFA) 90 mcg/actuation inhaler Inhale 2 Puffs asinstructed every 4 hours as needed (for shortness of breath and wheezing.).Disp: 1 Inhaler Rfl: 5No current facility- administered medications for this visit.ALLERGIESAllergen Reactions- Sulfa (Sulfonamide * Hives, AnaphylaxisREVIEW OF SYSTEMSReview of SystemsGENERAL:Negative for malaise, significant weight loss and feverHEENT:Negative for frequent or significant headaches, significant changes invision or vision problems, significant ear problems or hearing loss, see HPINECK:Negative for lumps, goiter, pain and significant neck swellingRESPIRATORY: see HPICARDIOVASCULAR: Negative for chest pain, leg swelling and palpitationsGASTROINTESTINAL: Negative for abdominal discomfort, change in bowel habitsGENITOURINARY: Negative for dysuria, frequency and incontinenceMUSCULOSKELETAL: Negative for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 or rubs. No ectopyAbdomen: soft, non-tender, positive bowel soundsExtremities: no edema, no calluses or ulcers present.Peripheral Pulses: posterior tibial and doralis pedis pulses 2+ andsymmetricalDATA:Diagnostic tests reviewed for today's visit:Results for FAUSTO CORRIGAN ( ) as of 07/27/2017 23:27 Ref. Range 07/26/2017 10:48Sodium Latest Ref Range: 136 - 144 mmol/L 139Potassium Latest Ref Range: 3.7 - 5.1 mmol/L 3.9Chloride Latest Ref Range: 97 - 105 mmol/L 96 (L)CO2 Latest Ref Range: 22 - 30 mmol/L 25BUN Latest Ref Range: 7 - 21 mg/dL 20Creatinine Latest Ref Range: 0.58 - 0.96 mg/dL 0.98 (H)Glucose Latest Ref Range: 74 - 99 mg/dL 133 (H)Protein, Total Latest Ref Range: 6.3 - 8.0 g/dL 7.5Calcium Latest Ref Range: 8.5 - 10.2 mg/dL 9.8Albumin Latest Ref Range: 3.9 - 4.9 g/dL 4.3Bilirubin, Total Latest Ref Range: 0.2 - 1.3 mg/dL 0.2Alkaline Phosphatase Latest Ref Range: 32 - 117 U/L 96ALT Latest Ref Range: 7 - 38 U/L 19AST Latest Ref Range: 13 - 35 U/L 16Anion Gap Latest Ref Range: 9 - 18 mmol/L 18eGFR- Unknown >60eGFR-All Other Races Latest Units: . 59IMPRESSION/RECOMMENDATIONSFausto Corrigan is a very pleasant 57 year old yo female with hx of:1.- DMT2 for the last 8 years. She will start taking it again [id number] mg twice a day. She has medication at home. Of importance is thattoday her fasting blood sugar was 1 33 mg/dL. We ordered a hemoglobin A7rcpxyw has not been done. We will see her back in 6 weeks a repeathemoglobin A1c. Her blood sugars should improve once she is off steroids.SIGNATURE: Ivan Hyde, MDDATE: July 26, 2017TIME: 2:32 PM Normal [facility] PROGRESS HNO ID: [id number] thor: Cristina Vernon RtService: (none)Author Type: (none)Type: Progress NotesFiled: 07/26/2017 1:40 PMNote Text: Radiology Service Progress NotePATIENT NAME: Fausto CorriganMRN: [id number] OF SERVICE: July 26, 2017TIME: 1:40 PMPATIENT IDENTITY VERIFICATION COMPLETED USING TWO (2) METHODS: Patientconfirmed name verbally and Date of .PATIENT GENDER DATA: MalePATIENT RELEVANT IMPLANT DATA REVIEWED: Not ApplicableRADIOLOGY DEPARTMENT: General X-ray: Exam(s) Completed: Chest X-RayPERIPHERAL IV DATA: Not applicableSIGNED BY: Cristina Vernon RtOct2016 1:40 PM Normal [facility] PROGRESS HNO ID: [id number] thor: Aimee Gonzalez: (none)Author Type: PhysicianType: Progress NotesFiled: 07/26/2017 3:23 PMNote Text:Respiratory InstitutePulmonary ConsultationCC: Pre-operative evaluationConsultation requested by Dr. Thomas for a pre-operative pulmonaryevaluation. My final recommendations will be communicated to city hospital care provider by way of the shared medical record forinternal providers or letter via the [employer] forexternal providers.HISTORY OF PRESENT ILLNESSFausto Corrigan is a 57 year old female with a history of COPD who presentsfor a pre-op evaluation for a sigmoid colectomy w/ colorectal anastomosisfor repair of colovaginal fistula.Pt previously has had her COPD treated by her family physician. Not on anyinhalers currently but been on different ones before. Recently notes shehas 4 grandchildren and gets infections from them a lot. Recent bronchitisstarted a month ago. Was just prescribed course of steroid/antibiotic forthe bronchitis. Was given a course about a month ago as well but didn'tget better. Usually gets bronchitis 2x a year especially when the weatherchanges. Surgery was postponed to August 24 due to the illness.Previously been on inhalers which include advair, symbicort, spiriva andsaid they helped. Also has history of asthma as a child. Gets bronchitis 2a year. Gets sinus infections too with bad postnasal gtt. Takes OTC zyrtecfor sinuses. Has tried nasal sprays before but doesn't have good response.She notes allergies to pollen, possibly dust. Never been tested before.Doesn't want to be tested today. She has a dog but denies that she isallergic.Changes in the seasons really bother her breathing. Also has GERD - onzantacNebulizer using 2 times a day just started because sick. Not on inhalerscurrently right now but been on them before and felt like that helpedHistory pneumonia 14 years ago requiring hospitalization. Up to date onpneumonia shots. Declines flu shot today.PAST MEDICAL/SURGICAL/SOCIAL HISTORYPAST MEDICAL HISTORYDiagnosis Date- COPD (chronic obstructive pulmonary disease) (HCC)- Diverticulitis- Fistula- GERD (gastroesophageal reflux disease)- HTN (hypertension)- Hyperthyroidism- PUD (peptic ulcer disease)PAST SURGICAL HISTORYProcedure Laterality Date- PAST SURGICAL HISTORY OF CHERI- PAST SURGICAL HISTORY OF gullbladder removed- PAST SURGICAL HISTORY OF rt rotator cuff repair- PAST SURGICAL HISTORY OF appendix removed- PAST SURGICAL HISTORY OF wisdom teeth removed- PAST SURGICAL HISTORY OF Right knee repair and foot repair, MVAFAMILY HISTORYProblem Relation Age of Onset- Cancer Father- Heart Disease [OTHER] Father- HTN [OTHER] Father- Cancer Mother- heart disease [OTHER] MotherMom - pancreatic cancer, never smoker but had emphysemaAunt - breast cancerFather - bladder cancer, had emphysemaSister - house fire, got emphysemaSocial History Marital status: Spouse name: Years of education: Number of children:Social History Main Topics Smoking status: Former Smoker Packs/day: 0.00 Years: 20.00 Types: Cigarettes Start date: 06/07/1997 Quit date: 06/26/2017 Smokeless status: Never Used Comment: smokes 3-4 daily Alcohol use: No Drug use: NoPrivate home paraprofessional for elderly peopleGets sick a lot from themPreviously 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 Disp: Rfl: 0predniSONE (DELTASONE) 10 mg tablet take 4 tablets by mouth once daily for3 days then 3 tablets once... (REFER TO PRESCRIPTION NOTES). Disp: Rfl:0atenolol-chlorthalidone (TENORETIC) 50-25 mg per tablet Take 1 tablet bymouth once daily. Disp: Rfl: 0oxyCODONE-acetaminophen (PERCOCET) 5-325 mg tablet Take 1 tablet by mouthevery 4 hours as needed. Disp: Rfl:acetaminophen (TYLENOL EXTRA STRENGTH) 500 mg tablet Take 1,000 mg bymouth every 8 hours as needed. Disp: Rfl:ranitidine (ZANTAC) 150 mg tablet Take 150 mg by mouth twice daily. Disp:Rfl:docusate sodium (STOOL SOFTENER) 100 mg capsule Take 100 mg by mouth threetimes daily. Disp: Rfl:fluticasone-salmeterol (ADVAIR) 500-50 mcg/dose dsdv Inhale 1 Puff asinstructed twice daily. Rinse mouth out after use Disp: 1 Inhaler Rfl: 11albuterol HFA (PROVENTIL HFA) 90 mcg/actuation inhaler Inhale 2 Puffs asinstructed every 4 hours as needed (for shortness of breath andwheezing.). Disp: 1 Inhaler Rfl: 5No current facility-administered medications for this visit.ALLERGIESAllergen Reactions- Sulfa (Sulfonamide * Hives, AnaphylaxisREVIEW OF SYSTEMSReview of SystemsGENERAL:Negative for malaise, significant weight loss and feverHEENT:Negative for frequent or significant headaches, significant changesin vision or vision problems, significant ear problems or hearing loss,see HPINECK:Negative for lumps, goiter, pain and significant neck swellingRESPIRATORY: see HPICARDIOVASCULAR: Negative for chest pain, leg swelling and palpitationsGASTROINTESTINAL: Negative for abdominal discomfort, change in bowelhabitsGENITOURINARY: Negative for dysuria, frequency and incontinenceMUSCULOSKELETAL: Negative for small joint pain or swelling, notes chronicback painNEUROLOGIC:Negative for focal numbness or weakness, headaches anddizziness.SKIN:Negative for lesions, rash, and itching.PSYCHIATRIC: Negative for sleep disturbance, mood disorder and recentpsychosocial stressors.HEMATOLOGIC/LYMPHATIC/IMMUNOLOGIC: Negative for prolonged bleeding,bruising easily, and swollen nodes.ENDOCRINE: Negative for cold or heat intolerance, polyuria, polydipsia andgoiter.PHYSICAL EXAMBP 116/67 Pulse 74 Temp (Src) 98.5 (Temporal Artery) Resp 20 Ht 5'0 (1.52m) Wt 161 lb (73.0kg) SpO2 93% BMI 31.44 kg/(m2).Physical ExamGeneral appearance: cooperative, in no acute distress, alertSkin: Skin color, texture, turgor normal. No rashes or lesionsHead: Normocephalic. No masses, lesions, tenderness or abnormalitiesEyes: Conjunctivae/corneas clear. Pupils are equally round and reactive tolight. Extraocular movements are intact.Nose/Sinuses: negativeOropharynx: Lips, mucosa, and tongue normal. Teeth and gums normal.Oropharynx normal.Neck: Neck supple, no adenopathy; thyroid symmetric, normal sizeLungs: Mild bibasilar crackles, no wheezing or rhonchi, decreased breathsounds bilaterallyHeart: negative. RRR without murmur, gallop, or rubs. No ectopy.Abdomen: Abdomen soft, non-tender. Bowel sounds normal. No masses,organomegalyExtremities: Extremities normal. No deformities, edema, or skindiscoloration. Good capillary refill.Peripheral pulses: NormalNeuro: Gait normal. Reflexes normal and symmetric. Sensation grosslyintact.DIAGNOSTIC REVIEWI personally reviewed the labs, PFTs and radiographsRadiology:PFT:SPIROMETRY WITH DILATOR IF OBSTRUCTED ([id number]) - ordered on 07/26/17 [facility] [address] [place] [address] Test Date: 0299-98-68Ljp Name: FAUSTO CORRIGAN Department: Room:Gender: Female Green Ware Caster: DIO VDOB: 1960 Requested By:Order Number: [id number] Reading MD: Interpretive StatementsTest no. 2 07/26/2017 12:14:11PM PRE/POST- ATS acceptability andrepeatabilitystandards for spirometry met.Medications and Allergies were reviewed forpossibledrug interactions per policy MM-102. No contraindications orsensitivities werenoted. Respiratory meds taken in past 72H: Albuterol / 16 hours beforetesting. 4 puffs albuterol (360 mcg) delivered by MDI via valved holding chamber, HRpre=80/min, HRpost= 72/min. /JAQUAN//DIO nguyen??IMPRESSION: [facility] Respiratory [place] Pulmonary Function Lab Pred LLN ULN Pre % Post % %chgDate [id number] 11:44AM 12:10PM Heig ht 152.4 152.4Weight 72.6 72.6 FVC 2.96 2.35 3.57 2.11 71 2.13 72 1FEV 1 2.32 1.80 2.83 1.43 62 1.53 66 7FEV1%F 79.12 69.33 88.92 67.67 86 71.55 90 6FEV 2 2.33 1.59 3.07 1.65 71 1.75 75 6FEV 3 2.58 1.96 3.20 1.78 69 1.88 73 5FEV3%E 94.92 89.56 100.3 84.50 89 87.97 93 4MEF 50 3.10 1.93 4.28 1.06 34 1.36 4429FIF 50 1.99 2.7179B64/75 2.34 1.25 3.42 0.67 29 0.84 3625FE%FIF 53.13 61.7834UQI2 1.95 2.05 5PEF 5.36 3.63 7.09 4.30 80 5.37 76360BTW 10.82 10.59-2FETPEF 0.08 0.04-56VBe%FV 4.39 3.07 -30VBEex 0.09 0.07-29 VC MAX 2.96 2.35 3.57 2.11 71 2.13 72 1 Cardiac:DUONG WHITFIELD AND Ab Shekhar is a 57 year old female with:(Z01.818) Pre-op evaluation (primary encounter diagnosis)(J44.9) COPD with chronic bronchitis (HCC)(J30.9) Allergic rhinitis, unspecified chronicity, unspecifiedseasonality, unspecified trigger(Z87.891) Former smoker(N82.4) Colovaginal fistula1) Preoperative Risk Calculation:The features of this patient's history that contribute to the pulmonaryrisk assessment include: age, COPD, general anesthesia, surgery >2 hoursShe has an intermediate risk (44 points) of post-operative pulmonarycomplications based on the ARISCAT Index. The validated risk calculatorprovides a risk estimate of post-op pulmonary complications and isanticipated to aid in surgical decision-making and informed patientconsent. However risk can be accepted given the potential benefit of thisintervention and it is not prohibitive. The absolute assessment ofrisk/benefit of the procedure is deferred to the primary team'sevaluation.0 to 25 points: Low risk: 1.6% pulmonary complication rate26 to 44 points: Intermediate risk: 13.3% pulmonary complication rate45 to 123 points: High risk: 42.1% pulmonary complication rateGiven the type of surgery and the patient's history of comorbidconditions, the patient has a 4.2%% chance of postoperative respiratoryfailure (Gurinder Respiratoray Failure Index. OLAF Fairchild. Nancie Afel4558; 232: 242). THaving a respiratory infection within the past month increases the risk. Iagree with postponing surgery until Aug 24 to reduce her risk.RECOMMENDATIONS:In order to minimize the risk of complications and optimize pulmonarystatus, we recommend the following:-Encourage aggressive incentive spirometry hourly both ayse-operativelyand post-operatively as tolerated-Early ambulation and physical therapy as tolerated eict-olrcbmnswkj-Hexsbbty narcotics as much as possible-Bronchodilators as needed for wheezing or shortness of breath-Ideally we recommend smoking cessation for >4 weeks before anyintervention-Please feel free to call the Pulmonary Consultation service to assist inthe postoperative pulmonary care if needed.2) COPD, grade C FEV1 62% - No comorbid diastolic dysfunction that she is aware of - Prescribed Advair given her hx of allergic rhinitis and hx of asthma asa child - Continue ASCENCION nebulizer prn - Prescribed rescue inhaler - Up to date on pneumonia shots - Pt declines flu shot today3) Allergic rhinitis - Discussed nasal sprays / rinses and RAST testing. Pt declined allergytesting today. Will continue to take OTC treatment. - Frequent episodes of bronchitis / sinusitis - will consider humoralimmune panel testing in future4) Former smoker - Encouraged continued cessation5) Lung cancer screening - Discussed with her consideration of lung cancer screening. Pt is notinterested today.Discussed with the patient who agrees to the plan.Will follow up day prior to her surgery Aug 23 to make sure she'sfeeling better and recovered from illnessAmy Santana, MDPulmonary and Critical Care MedicineRespiratory InstituteGrand Lake Joint Township [facility] Type and SCR (30D)on 017 ABO/RH(D) Positive Normal [facility] Comment on above: Performed By: #### T SCR30 ####[facility] [address] [place], [place] [phone] Antibody Screen Negative Normal [facility] Comment on above: Performed By: #### T SCR30 ####[facility] [address] [place], [place] [phone] XR CHEST 2V FRONTAL/LATon XR CHEST 2V FRONTAL/LAT * * *Final Report* * *DATE OF EXAM: Jul 26 2017 12:26PM AOX 5291 - XR CHEST 2V FRONTAL/LAT / REASON: Chronic obstructive pulmonary disease, unspecified * * * * Physician Interpretation * * * * EXAMINATION: CHEST RADIOGRAPH (2 VIEW FRONTAL and LATERAL)Clinical History: Chronic obstructive pulmonary disease, unspecifiedM: XC2_3Comparison: CT abdomen and pelvis 04/15/2017RESULT:Lines, tubes, and devices: None.Lungs and pleura: No focal consolidation. There is mild prominence of the interstitial markings of the lungs bilaterally, which may be due to airway inflammatory changes. No pneumothorax or pleural effusion.Cardiomediastinal silhouette: Normal cardiomediastinal silhouette.Other: Mild degenerative changes of the thoracic spine. Surgical clips in the upper abdomen suggest prior cholecystectomy.IMPRESSION:No acute radiographic abnormality.Wire Stitcher Operator: PAUL Transcribe Date/Time: Jul 26 2017 2:28PDictated by : FABY SWANSON MDThigrady examination was interpreted and the report reviewed and electronically signed by: CORNELIUS BEAR MD on Jul 26 2017 4:55PM [id number] Normal [facility] HISTORY PHYSICALon HISTORY PHYSICAL HNO ID: [id number] thor: Rivera Mcgovern) BhallaService: (none)Author Type: PhysicianType: HANDPFiled: 07/26/2017 8:42 PMNote Text:HISTORY AND PHYSICAL EXAMINATION (IMPACT)SERVICE DATE: 07/25/2017SERVICE TIME: 1:49 PMPRIMARY CARE PHYSICIAN: No PcpCHIEF COMPLAINT/HISTORY OF PRESENT ILLNESS:Ms. Corrigan is a 57 year old female referred to me for preoperativeevaluation. My final recommendations will be communicated back to therequesting physician/surgeon by the way of the shared medical record.Referring Surgeon: Dr. Esequiel Fernandez of Surgery: 08/03/2017Planned Surgery/Procedure:COLECTOMY SIGMOID W/ COLORECTAL ANASTOMOSISIndication for Planned Surgery / Procedure: Diverticulitis large intestinew perforation and colovaginal fistulaRefer to Assessment section for details of any comorbidities.Patient is Able to Perform the Following Physical Activity:Climb a flight of stairs or walk up a hill (5.50 METs)Patient denies any chest pain or undue shortness of breath with the abovephysical activity.Patient's functional class is II based on self-reported physical activity.Significant Anesthesia Considerations: None. PAST MEDICAL/SURGICAL/FAMILY/SOCIAL HISTORYPAST MEDICAL HISTORYDiagnosis Date- COPD (chronic obstructive pulmonary disease) (HCC)- Diverticulitis- Fistula- GERD (gastroesophageal reflux disease)- HTN (hypertension)- Hyperthyroidism- PUD (peptic ulcer disease)PAST SURGICAL HISTORYProcedure Laterality Date- PAST SURGICAL HISTORY OF CHERI- PAST SURGICAL HISTORY OF gullbladder removed- PAST SURGICAL HISTORY OF rt rotator cuff repair- PAST SURGICAL HISTORY OF appendix removed- PAST SURGICAL HISTORY OF wisdom teeth removed- PAST SURGICAL HISTORY OF Right knee repair and foot repair, MVAFAMILY HISTORYProblem Relation Age of Onset- Cancer Father- Heart Disease [OTHER] Father- HTN [OTHER] Father- Cancer Mother- heart disease [OTHER] MotherSOCIAL HISTORYSocial History Marital status: Spouse name: Years of education: Number of children:Social History Main Topics Smoking status: Former Smoker Packs/day: 0.00 Years: 20.00 Types: Cigarettes Start date: 06/07/1997 Quit date: 06/26/2017 Smokeless status: Never Used Comment: smokes 3-4 daily Alcohol use: No Drug use: NoMEDICATIONS/ALLERGIESCurrent Outpatient Prescriptions:albuterol (PROVENTIL) 2.5 mg /3 mL (0.083 %) nebulizer solution inhalecontents of 1 vial in nebulizer four times a day if needed Disp: Rfl: 0doxycycline hyclate (VIBRAMYCIN) 100 mg capsule Take 100 mg by mouth twicedaily. Disp: Rfl: 0predniSONE (DELTASONE) 10 mg tablet take 4 tablets by mouth once daily for3 days then 3 tablets once... (REFER TO PRESCRIPTION NOTES). Disp: Rfl:0atenolol-chlorthalidone (TENORETIC) 50-25 mg per tablet Take 1 tablet bymouth once daily. Disp: Rfl: 0fluticasone-salmeterol (ADVAIR) 500-50 mcg/dose dsdv Inhale 1 Puff asinstructed twice daily. Rinse mouth out after use Disp: 1 Inhaler Rfl: 11albuterol HFA (PROVENTIL HFA) 90 mcg/actuation inhaler Inhale 2 Puffs asinstructed every 4 hours as needed (for shortness of breath andwheezing.). Disp: 1 Inhaler Rfl: 5oxyCODONE-acetaminophen (PERCOCET) 5-325 mg tablet Take 1 tablet by mouthevery 4 hours as needed. Disp: Rfl:acetaminophen (TYLENOL EXTRA STRENGTH) 500 mg tablet Take 1,000 mg bymouth every 8 hours as needed. Disp: Rfl:ranitidine (ZANTAC) 150 mg tablet Take 150 mg by mouth twice daily. Disp:Rfl:docusate sodium (STOOL SOFTENER) 100 mg capsule Take 100 mg by mouth threetimes daily. Disp: Rfl:No current facility-administered medications for this visit.ALLERGIESAllergen Reactions- Sulfa (Sulfonamide * Hives, AnaphylaxisREVIEW OF SYSTEMSGeneral: No weight loss, malaise or fevers.Neuro: No history of TIA's, stroke, VEGETABLE WORKER tumor, impaired sensorium,hemiplegia, paraplegia or quadriplegia. No neurological symptoms orproblems.Respiratory: COPD on nebulizersCardiovascular: No history of HTN requiring medication, no history ofangina, CHF, AK, cardiac surgery or stents. Denies rest pain, gangrene orrevascularization/amputation for PVD. No history of cardiovascularsymptoms or problems.GI: Peptic Ulcer Disease on ZantacGU: No history of UTI in past 6 weeks. No history of renal failure. Notcurrently on or requiring dialysis. No history of symptoms or problems.ADOLESCENT COORDINATOR: No vaginal bleeding due to menopause and no abnormal vaginaldischarge., LMP: N/AEndocrine: No history of diabetes. Has not taken steroids within the past30 days. No history of endocrinological symptoms or problems.Hematology: No history of bleeding or clotting disorder. No history ofhematological symptoms or problems.Oncology: No history of CA metastasis, chemo within 30 days, orradiotherapy within 90 days. No history of oncological symptoms orproblems.Psych: No history of psychiatric symptoms or problems.Skin: Negative for lesions, rash, and itching.PHYSICAL EXAMVITALS: BP 120/69 Pulse 75 Temp (Src) 97.6 (Oral) Ht 5' 0 (1.52m) Wt 161 lb (73.0kg) SpO2 96% BMI 31.44 kg/(m2).General: Alert and orientedSkin: Normal color, no rash, no lesions.HEENT: EOM, pupils equal, round and reactive.Cardiovascular: Normal S1 AND S2, no rubs, murmurs or gallops. No JVD. Pulseregular.Lungs: Normal breath sounds, no wheezes or crackles.Abdomen: Soft, non-tender, no rigidity.Extremities: No deformity, no edema or tenderness, no joint swelling orclubbing.Neurological: Normal cognition and motor skills.Pulses: Carotid and radial pulses normal +2.ASSESSMENTMsChrista Corrigan is a 57 year old female referred to me for preoperativeevaluation. Patient has the following medical comorbidities which mightaffect the perioperative course:COPD- on PrednisoneRecent URI -HTNDiverticulitisPatient's RCRI (Revised Cardiac Risk Index: CAD/CHF/Stroke or TIA/SCr>2/DMon Insulin/High Risk Surgery) score is 0 and is at low risk for majoradverse cardiac events in the perioperative period.Diagnostic tests reviewed for today's visit:Most recent labsPLAN/RECOMMENDATIONSCARDIAC: Patient is at optimal cardiac condition for scheduled surgery /procedure.PULMONARY: Patient is at optimal Pulmonary status for scheduled surgery /procedure.Slightly higher risk of pulmonary complications because of COPDVASCULAR/ANTICOAGULATION: VTE prophylaxis as deemed appropriate by the surgical service.ENDOCRINOLOGY - On Prednisone now and had a course of steroids recently -recommend stress dose steroids - Hydrocortisone 50 mg IV before inductionand Q8 for 24 hoursEKG- Normal Sinus RhythmPatient is optimally prepared for surgery.ADDENDUM: Labs are back - reviewed - WBC count 13.36 - pt on Steroids.Otherwise labs unremarkable- pt is optimally prepared for SurgeryPatient Instructions: As per patient instructions section.I have discussed the above recommendations with the patient in detail, infrank and lay terms, and provided a written summary of instructions asneeded. We have discussed that no surgery is without risk, but that thegoal of preoperative assessment is to optimize that risk, and that wasclearly understood by the patient. I have given ample opportunity for thepatient to ask questions, and answered all questions to their statedsatisfaction.SIGNATURE: Rivera Patricia MD PATIENT NAME: Fausto CorriganDATE: July 25, 2017 : 1:49 PM Normal [facility] 06-08-2017 HOSP Patient Update (CORSMN) --------FAUSTO CORRIGAN ([id number]) 1960 FDate Time Provider Department06/08/17 ESEQUIEL THOMAS During your visit today, we recorded the following information about you:Allergies As of Date: 06/08/2017 Noted Allergy ReactionSULFA (SULFONAMIDE ANTIBIOTICS) 06/07/2017 4 - Hives 10 - AnaphylaxisDate Reviewed: 06/07/2017Reviewed by: Nicolle (Josr) JOSR Moncada - Fully AssessedPrimary Visit Diagnosis: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]Order(s):SURGICAL REQUEST - ELECTIVE [[id number]] Order #: [id number]: 1 PER WHAT TO EXPECT DURING YOUR HOSPITAL STAY [[id number]] Order #: [id number]: 1 CBC [SQCBC] Order #: [id number] FUTURE COMP METABOLIC PANEL [SQCMP] Order #: [id number] FUTURE CONFIRM BLOOD TYPE [SQCONABO] Order #: [id number] FUTURE TYPE + SCREEN,30 DAY [AJGMLY23] Order #: [id number] FUTURE ECG COMPLETE W INTERPRETATION [ECG01] Order #: [id number] FUTURE REFER FOR ADMIT INTERVIEW [6467769] Order #: [id number] HANDP FOR SURGERY [Z2120LLH] Order #: [id number] CONSULT TO PATIENT EDUCATION [180689] Order #: [id number]: 1 CONSULT TO ANESTHESIOLOGY [9002] Order #: [id number]: 1 CONSULT TO INT MED-IMPACT [[id number]] Order #: [id number]: 1 CONSULT TO PULMONARY MEDICINE [1881515] Order #: [id number]: 1 CONSULT TO ENDOCRINOLOGY [9007] Order #: [id number]: 1Prescriptions as of 06/08/2017 Sig: OXYCODONE-ACETAMINOPHEN 5 MG-* Take 1 tablet by mouth every * ACETAMINOPHEN 500 MG TABLET Take 1,000 mg by mouth every * RANITIDINE 150 MG TABLET Take 150 mg by mouth twice da* DOCUSATE SODIUM 100 MG CAPSULE Take 100 mg by mouth three ti*Problem List As Of Date 06/08/2017 Noted Resolved 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Follow-up and Disposition History RecordedEncounter Number: [id number] Status:Closed by ESEQUIEL THOMAS MD, FACS on 06/09/17 [facility] CNOVon 06-07-2017 CNOV Office Visit (TOMAS) --------FAUSTO CORRIGAN ([id number]) 1960 [facility] Time Provider Department06/07/17 1:20 PM ESEQUIEL THOMAS During your visit today, we recorded the following information about you: Temperature Pulse Blood pressure Weight 97.8 degrees 79/minute 119/76 73.5 kg Height 1.537 Geovany Thomas MD FACS 06/07/2017 3:44 PM SignedNew Patient ConsultREASON FOR Rafia Corrigan is a 56 year old female who is scheduled for a consult at [facility] for Consult (Colovaginal Fistula). My finalrecommendations will be communicated back to the requesting physician by theway of the shared medical record, fax, or via [place] MailHistory of Present Illness:56 year old female with yellow/brown colored drainage from vagina x 2 months.She has a history of diverticular disease and recently developed a pelvicabscess followed by colonoscopy and CT scan which still demonstrated theabscess and free intraperitoneal air.She is taking stool softener's tid. Bowel function is once every 3 days, softformed stool. 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 is a user of tobacco also. He does not use a filter.FUNCTIONAL STATUS: Do moderate work around the house such as vacuuming,sweeping floors, or carrying in groceries (3.50 METs)PAST MEDICAL HISTORYDiagnosis Date- Diverticulitis- Fistula- GERD (gastroesophageal reflux disease)- HyperthyroidismPAST SURGICAL HISTORYProcedure Laterality Date- PAST SURGICAL HISTORY OF CHERI- PAST SURGICAL HISTORY OF gullbladder removed- PAST SURGICAL HISTORY OF rt rotator cuff repair- PAST SURGICAL HISTORY OF appendix removed- PAST SURGICAL HISTORY OF wisdom teeth removedFAMILY HISTORYProblem Relation Age of Onset- Cancer Father- Heart Disease [OTHER] Father- HTN [OTHER] Father- Cancer Mother- heart disease [OTHER] MotherSocial HistorySubstance Use Topics- Smoking status: Current Every Day Smoker Years: 20.00 Types: Cigarettes Start date: 06/07/1997- Smokeless tobacco: Never Used Comment: smokes 3-4 daily- Alcohol use NoThe patient has the following:Problem List (None)MEDICATIONSCurrent Outpatient Prescriptions:oxyCODONE-acetaminophen (PERCOCET) 5-325 mg tablet Take 1 tablet by mouth every4 hours as needed. Disp: Rfl:acetaminophen (TYLENOL EXTRA STRENGTH) 500 mg tablet Take 1,000 mg by mouthevery 8 hours as needed. Disp: Rfl:ranitidine (ZANTAC) 150 mg tablet Take 150 mg by mouth twice daily. Disp: Rfl:No current facility- administered medications for this visit.CURRENT ALLERGIESALLERGIESAllergen Reactions- Sulfa (Sulfonamide * Hives, AnaphylaxisREVIEW OF SYSTEMSPAIN ASSESSMENT: PainPain Score: 4/10Pain Location: AbdomenDescription: SoreDuration Amount of Time: 3Duration Units: MonthsFrequency: IntermittentIntervention: RepositionGeneral: MalaiseNeuro: No history of TIA's, stroke, VEGETABLE WORKER tumor, impaired sensorium, hemiplegia,paraplegia or quadraplegia. No neurological symptoms or problems.Respiratory: COPDCardiovascular: Hx HTNGI: Positive for GERD, PUD, Heartburn, Abdominal pain, Diverticulitis, Historyof polypsGU: No history of UTI in past 6 weeks. No history of renal failure. Notcurrently on or requiring dialysis. No history of symptoms or problems.ADOLESCENT COORDINATOR: yellow/brown drainage from vagina x2 months : N/AEndocrine: Diabetes Mellitus with diet controlHematology: No history of bleeding or clotting disorder. Pt is not takinganti-coagulation or platelet medications. No history of hematological symptomsor problems.Oncology: No history of CA metastasis, chemo within 30 days, or radiotherapywithin 90 days. Has not lost 10% of body wt in 6 months. No history ofoncological symptoms or problems.Psych: No history of psychiatric symptoms or problems.Musculoskeletal: Back painSkin: Negative for lesions, rash and itching.Anemia: NoPHYSICAL EXAMINATIONBP 119/76 Pulse 79 Temp (Src) 97.8 (Oral) Ht 5' .5ANDquot; (1.54m) Wt 162lb (73.5kg) SpO2 95% BMI 31.11 kg/(m2).General Appearance: OverweightSkin: Skin color, texture, turgor normal, no suspicious rashes or lesionsHead: Normocephalic, no masses, lesions, tenderness or abnormalitiesOropharynx: Dentures and Lips, mucosa, and tongue normal, teeth and gumsnormal, oropharynx normalNeck: Supple, no adenopathy; thyroid symmetric, normal size, no bruitsLungs: Shortness of breath:Heart: Not examinedExtremities: No deformities, edema, skin discoloration, clubbing or cyanosis.Good capillary refill.Neuro: DeferredAbdomen: Normal abdominal examAnorectal: She would not tolerate anorectal examination or endoscopy.Anoscopy:The patient was placed in left lateral position. After digital exam with alubricated finger, the scope was easily inserted.Diagnostic tests reviewed for today's visit:Colonoscopy Report . She wasexamined to 30 cm when with stricturing and tortuosity. The scope could not beadvanced further.CT imaging evidence of severe sigmoid diverticular disease with perforation andattachment to the vagina.AssessmentASSESSMENTSigmoid diverticular disease with fistulization into the vagina.RECOMMENDATIONAfter preoperative preparation, she needs a sigmoid colectomy and colorectalanastomosis and possibly a temporary diverting ostomy. . She will need preoperative assessment of lungs by the pulmonary doctors andshe should be seen by anesthesia preoperatively.Esequiel Thomas MD FACSDATE: 06/07/17TIME: 2:32 PMReferring Provider: ZAID MICHAELS [[id number]]Allergies As of Date: 06/07/2017 Noted Allergy ReactionSULFA (SULFONAMIDE ANTIBIOTICS) 06/07/2017 4 - Hives 10 - AnaphylaxisDate Reviewed: 06/07/2017Reviewed by: Nicolle (Josr) JOSR Moncada - Fully AssessedReason for Visit: Consult [173] Cmt: Colovaginal FistulaPrimary Visit Diagnosis:Diverticulitis large intestine w perforation and colovaginal fistula [K57.32]Prescriptions as of 06/07/2017 Sig: OXYCODONE-ACETAMINOPHEN 5 MG-* Take 1 tablet by mouth every * ACETAMINOPHEN 500 MG TABLET Take 1,000 mg by mouth every * RANITIDINE 150 MG TABLET Take 150 mg by mouth twice da* DOCUSATE SODIUM 100 MG CAPSULE Take 100 mg by mouth three ti*Problem List As Of Date: 06/07/2017(None) Status:Closed by ESEQUIEL THOMAS MD, FACS on 06/07/17 [facility] HISTORY PHYSICALon HISTORY PHYSICAL HNO ID: [id number] thor: Esequiel Goodwin: (none)Author Type: PhysicianType: HANDPFiled: 06/07/2017 3:44 PMNote Text:New Patient ConsultREASON FOR Rafia Corrigan is a 56 year old female who is scheduled for a consult at [facility] for Consult (Colovaginal Fistula). Myfinal recommendations will be communicated back to the requestingphysician by the way of the shared medical record, fax, or via [place] MailHistory of Present Illness:56 year old female with yellow/brown colored drainage from vagina x 2months.She has a history of diverticular disease and recently developed a pelvicabscess followed by colonoscopy and CT scan which still demonstrated theabscess and free intraperitoneal air.She is taking stool softener's tid. Bowel function is once every 3 days,soft formed stool. Denies rectal bleeding.She had a hysterectomy a long time ago.She has no urinary symptoms and has no history of urinary symptoms.C/o abdominal pain during BMs.She does have COPD from halfway smoking, but says she only has 3-4cigarettes a day at the present time. is a user of tobacco also. He does not use a filter.FUNCTIONAL STATUS: Do moderate work around the house such as vacuuming,sweeping floors, or carrying in groceries (3.50 METs)PAST MEDICAL HISTORYDiagnosis Date- Diverticulitis- Fistula- GERD (gastroesophageal reflux disease)- HyperthyroidismPAST SURGICAL HISTORYProcedure Laterality Date- PAST SURGICAL HISTORY OF CHERI- PAST SURGICAL HISTORY OF gullbladder removed- PAST SURGICAL HISTORY OF rt rotator cuff repair- PAST SURGICAL HISTORY OF appendix removed- PAST SURGICAL HISTORY OF wisdom teeth removedFAMILY HISTORYProblem Relation Age of Onset- Cancer Father- Heart Disease [OTHER] Father- HTN [OTHER] Father- Cancer Mother- heart disease [OTHER] MotherSocial HistorySubstance Use Topics- Smoking status: Current Every Day Smoker Years: 20.00 Types: Cigarettes Start date: 06/07/1997- Smokeless tobacco: Never Used Comment: smokes 3-4 daily- Alcohol use NoThe patient has the following:Problem List (None)MEDICATIONSCurrent Outpatient Prescriptions:oxyCODONE-acetaminophen (PERCOCET) 5-325 mg tablet Take 1 tablet by mouthevery 4 hours as needed. Disp: Rfl:acetaminophen (TYLENOL EXTRA STRENGTH) 500 mg tablet Take 1,000 mg bymouth every 8 hours as needed. Disp: Rfl:ranitidine (ZANTAC) 150 mg tablet Take 150 mg by mouth twice daily. Disp:Rfl:No current facility-administered medications for this visit.CURRENT ALLERGIESALLERGIESAllergen Reactions- Sulfa (Sulfonamide * Hives, AnaphylaxisREVIEW OF SYSTEMSPAIN ASSESSMENT: PainPain Score: 4/10Pain Location: AbdomenDescription: SoreDuration Amount of Time: 3Duration Units: MonthsFrequency: IntermittentIntervention: RepositionGeneral: MalaiseNeuro: No history of TIA's, stroke, VEGETABLE WORKER tumor, impaired sensorium,hemiplegia, paraplegia or quadraplegia. No neurological symptoms orproblems.Respiratory: COPDCardiovascular: Hx HTNGI: Positive for GERD, PUD, Heartburn, Abdominal pain, Diverticulitis,History of polypsGU: No history of UTI in past 6 weeks. No history of renal failure. Notcurrently on or requiring dialysis. No history of symptoms or problems.ADOLESCENT COORDINATOR: yellow/brown drainage from vagina x2 months : N/AEndocrine: Diabetes Mellitus with diet controlHematology: No history of bleeding or clotting disorder. Pt is not takinganti-coagulation or platelet medications. No history of hematologicalsymptoms or problems.Oncology: No history of CA metastasis, chemo within 30 days, orradiotherapy within 90 days. Has not lost 10% of body wt in 6 months. Nohistory of oncological symptoms or problems.Psych: No history of psychiatric symptoms or problems.Musculoskeletal: Back painSkin: Negative for lesions, rash and itching.Anemia: NoPHYSICAL EXAMINATIONBP 119/76 Pulse 79 Temp (Src) 97.8 (Oral) Ht 5' .5 (1.54m) Wt 162lb (73.5kg) SpO2 95% BMI 31.11 kg/(m2).General Appearance: OverweightSkin: Skin color, texture, turgor normal, no suspicious rashes or lesionsHead: Normocephalic, no masses, lesions, tenderness or abnormalitiesOropharynx: Dentures and Lips, mucosa, and tongue normal, teeth and gumsnormal, oropharynx normalNeck: Supple, no adenopathy; thyroid symmetric, normal size, no bruitsLungs: Shortness of breath:Heart: Not examinedExtremities: No deformities, edema, skin discoloration, clubbing orcyanosis. Good capillary refill.Neuro: DeferredAbdomen: Normal abdominal examAnorectal: She would not tolerate anorectal examination or endoscopy.Anoscopy:The patient was placed in left lateral position. After digital exam witha lubricated finger, the scope was easily inserted.Diagnostic tests reviewed for today's visit:Colonoscopy Report . She wasexamined to 30 cm when with stricturing and tortuosity. The scope couldnot be advanced further.CT imaging evidence of severe sigmoid diverticular disease withperforation and attachment to the vagina.AssessmentASSESSMENTSigmoid diverticular disease with fistulization into the vagina.RECOMMENDATIONAfter preoperative preparation, she needs a sigmoid colectomy andcolorectal anastomosis and possibly a temporary diverting ostomy. . She will need preoperative assessment of lungs by the pulmonary doctorsand she should be seen by anesthesia preoperatively.Esequiel Thomas MD FACSDATE: 06/07/17TIME: 2:32 PM Normal [facility] SR-CT ABD/PELVIS W CON IMPOR Ton 04-15-2017 SR-CT ABD/PELVIS W CON IMPORT Images were obtained outside of [facility] [id number] Normal [facility] Vital Signs Date Time Vital Sign Value Performing Clinician Todd bishop 10-06-2022 13:45-0500 Body height 154.94 cm Veronique Jeff Vicentemaria teresakali Work Phone: [facility] [employer] DO Work Phone: 10-06-2022 13:45-0500 Body mass index (BMI) [Ratio] 29.29 kg/m2 Veronique Harris Work Phone: [facility] [employer] 250 DO Work Phone: 10-06-2022 13:45-0500 Body surface area Derived from formula 1.7 m2 Veronique Harris Work Phone: [facility] [employer] 250 DO Work Phone: 10-06-2022 13:45-0500 Body weight 70.31 kg Veronique Harris Work Phone: [facility] 250 DO Work Phone: 10-06-2022 13:45-0500 Diastolic blood pressure 80 mm[Hg] Veronique Jeff Vicentemaria teresakali Work Phone: [facility] [facility] 250 DO Work Phone: 10-06-2022 13:45-0500 Heart rate 72 /min Veronique Randee Zhangdontezana Work Phone: [facility] 250 DO Work Phone: 10-06-2022 13:45-0500 Systolic blood pressure 142 mm[Hg] Veronique Harris Work Phone: [facility] 250 DO Work Phone: 10-16-2021 11:41-0500 Body height 154.94 cm Dara Mills Work Phone: [facility] 250 DO Work Phone: 10-16-2021 11:41-0500 Body mass index (BMI) [Ratio] 30.04 kg/m2 Dara Mills Work Phone: [facility] 250 DO Work Phone: 10-16-2021 11:41-0500 Body surface area Derived from formula 1.71 m2 Dara Mills Work Phone: [facility] 250 DO Work Phone: 10-16-2021 11:41-0500 Body weight 72.12 kg Dara Mills Work Phone: [facility] 250 DO Work Phone: 10-16-2021 11:41-0500 Diastolic blood pressure 82 mm[Hg] Dara Mills Work Phone: [facility] 250 DO Work Phone: 10-16-2021 11:41-0500 Heart rate 65 /min Dara Mills Work Phone: [facility] 250 DO Work Phone: 10-16-2021 11:41-0500 Systolic blood pressure 136 mm[Hg] Dara Mills Work Phone: [facility] 250 DO Work Phone: 04-08-2021 11:18-0400 Body height 152.4 cm [facility] [employer] Work Phone: 04-08-2021 11:18-0400 Body mass index (BMI) [Ratio] 30.66 kg/m2 [facility] [employer] Phone: 04-08-2021 11:18-0400 Body weight 71.22 kg [facility] [employer] Work Phone: 04-08-2021 11:18-0400 Diastolic blood pressure 82 mm[Hg] [facility] [employer] Phone: 04-08-2021 11:18-0400 Heart rate 64 /min [facility] [employer] Phone: 04-08-2021 11:18-0400 Respiratory rate 18 /min [facility] [employer] Work Phone: 04-08-2021 11:18-0400 SaO2% (BldA) [Mass fraction] 97 % [facility] [employer] Phone: 04-08-2021 11:18-0400 Systolic blood pressure 144 mm[Hg] [facility] [employer] Phone: Encounters Encounter Date Encounter Type Care Provider Facility Start: 01-19-2023 End: 01-19-2023 ambulatory BORA HARRIS Facility:[facility] Start: 10-06-2022 Office outpatient vi sit 25 minutes [facility] Work Phone: Start: 10-06-[address] Rafael Washington Facility: Start: 09-23-2022 Rx Renewal [facility] Work [facility]: Start: 09-01-2022 End: 09-02-2022 ambulatory OLIVER ALVARADO . Facility:[facility] Start: 10-12-[address] Rafael Washington Facility: Start: 06-17-2022 End: 06-18-2022 ambulatory [employer] VERONIQUE HARRIS Facility:[facility] Start: 03-12-2022 End: 03-13-2022 ambulatory [employer] VERONIQUE HARRIS Facility:[facility] Start: 10-16-[address] Rafael Washington Facility: Start: 10-16-2021 Office outpatient vi sit 15 minutes Dara Sathya Mills Work Phone: [facility] 250 DO Work Phone: Start: 08-18-2021 End: 08-19-2021 [facility] Start: 07-31-2021 End: 08-01-2021 [facility]ulatory [facility] Start: 07-31-2021 End: 07-31-2021 Subsequent hospital visit by physician [facility] Rm 1 [facility] Comment on above: Arrived Start: 07-30-2021 End: 07-31-2021 ambulatory [facility] Start: 07-30-2021 End: 07-30-2021 Subsequent hospital visit by physician [facility] Comment on above: Arrived Start: 07-21-2021 End: 07-22-2021 ambulatory [facility] Start: 07-21-2021 End: 07-21-2021 Subsequent hospital visit by physician [facility] Rm 1 [facility] Comment on above: Arrived Start: 07-17-2021 End: 07-18-2021 ambulatory [facility] Start: 07-17-2021 End: 07-17-2021 Subsequent hospital visit by physician [facility] Rm 1 [facility] Comment on above: Arrived Start: 07-10-2021 End: 07-11-2021 [facility]ulatory [facility] Start: 07-10-2021 End: 07-10-2021 Subsequent hospital visit by physician [facility] Cardiop[facility] Rm 1 [facility] Comment on above: Arrived Start: 07-09-2021 End: 07-10-2021 ambulatory [facility] Start: 07-09-2021 End: 07-09-2021 Subsequent hospital visit by physician [facility] Cardiop[facility] Rehab Rm 1 [facility] Comment on above: Arrived Start: 07-07-2021 End: 07-07-2021 Subsequent hospital visit by physician [facility]iop[facility] Re[facility] Rm 1 [facility] Comment on above: Arrived Start: 07-02-2021 End: 07-03-2021 ambulatory [facility] Start: 07-02-2021 End: 07-02-2021 Subsequent hospital visit by physician [facility] R[facility] Comment on above: Arrived Start: 05-29-2021 End: 05-30-2021 ambulatory [facility] Start: 05-28-2021 End: 05-29-2021 ambulatory [facility] Start: 05-28-2021 End: 05-28-2021 Subsequent hospital visit by physician [facility] Comment on above: Arrived Start: 05-26-2021 End: 05-27-2021 ambulatory [facility] Start: 05-26-2021 End: 05-26-2021 Subsequent hospital visit by physician [facility] Rm [facility] Comment on above: Arrived Start: 05-22-2021 End: 05-23-2021 ambulatory [facility] Start: 05-22-2021 End: 05-22-2021 Subsequent hospital visit by physician [facility] Re[facility] Rm 2 [facility] Comment on above: Arrived Start: 05-19-2021 End: 05-20-2021 ambulatory [facility] Start: 05-19-2021 End: 05-19-2021 Subsequent hospital visit by physician [facility] Rm 2 [facility] Comment on above: Arrived Start: 05-15-2021 End: 05-16-2021 ambulatory [facility] Start: 05-15-2021 End: 05-15-2021 Subsequent hospital visit by physician [facility] Cardiop[facility] Re[facility] Rm 2 [facility] Comment on above: Arrived Start: 05-12-2021 End: 05-13-2021 ambulatory [facility] Start: 05-08-2021 End: 05-09-2021 ambulatory [facility] Start: 05-08-2021 End: 05-08-2021 Subsequent hospital visit by physician [facility] Rm 2 [facility] Comment on above: Arrived Start: 05-07-2021 End: 05-08-2021 ambulatory [facility] Start: 05-05-2021 End: 05-06-2021 ambulatory [facility] Start: 05-01-2021 End: 05-02-2021 ambulatory [facility] Start: 04-28-2021 End: 04-29-2021 ambulatory [facility] Start: 04-28-2021 End: 04-28-2021 Subsequent hospital visit by physician [facility] Rm 2 [facility] Comment on above: Arrived Start: 04-23-2021 End: 04-24-2021 ambulatory [facility] Start: 04-23-2021 End: 04-23-2021 Subsequent hospital visit by physician [facility]iop[facility] Rm 2 [facility] Comment on above: Arrived Start: 04-21-2021 End: 04-22-2021 ambulatory [facility] Start: 04-21-2021 End: 04-21-2021 Subsequent hospital visit by physician [facility]iop[facility] Rm 2 [facility] Comment on above: Arrived Start: 04-14-2021 End: 04-15-2021 ambulatory [facility] Start: 04-14-2021 End: 04-14-2021 Subsequent hospital visit by physician [facility] Cardiop[facility] Re[facility] Rm 2 [facility] Comment on above: Arrived Start: 04-10-2021 End: 04-11-2021 ambulatory [facility] Start: 04-08-2021 End: 04-09-2021 ambulatory [facility] Start: 04-08-2021 End: 04-08-2021 Subsequent hospital visit by physician Josue [facility] Cardiac Rehab Comment on above: Arrived Start: 05-19-2018 Patient encounter THOMAS DELGADILLO Facility:[facility] Start: 03-17-2018 End: 03-17-2018 Patient encounter THOMAS DELGADILLO Facility:[facility] Start: 02-03-2018 Patient encounter THOMAS DELGADILLO Facility:[facility] Start: 07-26-2017 End: 07-26-2017 Ambulatory ESEQUIEL C YANELIS [facility] Start: 07-26-2017 End: 07-26-2017 Ambulatory IVAN MCGOVERN) BARRETT [facility] Start: 07-26-2017 End: 07-27-2017 Ambulatory ESEQUIEL C YANELIS [facility] Start: 07-26-2017 End: 07-26-2017 Ambulatory ESEQUIEL C YANELIS [facility] [place] Start: 06-07-2017 End: 06-07-2017 Ambulatory ESEQUIEL C YANELIS [facility] [place] Procedures Date Procedure Procedure Detail Performing Clinician Appendectomy Dara Mills Work Phone: Cardiac catheterization Amelia Mills Work Phone: Cholecystectomy Dara rasmussen Work Phone: History of percutane ous transluminal coronary angioplasty History of PTCA Dara Mills Work Phone: Hysterectomy Dara Mills Work Phone: Kidney operation Dara martinez Work Phone: Operative procedure on foot Dara Mills Work Phone: Operative procedure on knee Dara Mills Work Phone: Total colonoscopy Dara boyce Work Phone: Plan of Treatment Date Care Activity Detail Author Start: 10-06-2023 FUV, Provider: Rafael Washington, Status: Pen, Time: 10:30 AM FUV, Provider: Rafael Washington, Status: Pen, Time: 10:30 AM [facility] 250 DO Work Phone: Start: 10-06-2022 FUV, Provider: Rafael Washington, Status: Pen, Time: 1:20 PM FUV, Provider: Rafael Washington, Status: Pen, Time: 1:20 PM [facility] 250 DO Work Phone: Start: 04-14-2022 FUV, Provider: Rafael Washington, Status: Pen, Time: 11:20 AM FUV, Provider: Rafael Washington, Status: Pen, Time: 11:20 AM [facility] 250 DO Work Phone: Start: 08-18-2021 End: 08-18-2021 Patient encounter procedure 08/18/2021 Appointment Cardiac Rehabilitation [facility] Start: 08-18-2021 End: 08-18-2021 Patient encounter procedure 08/18/2021 Appointment Cardiac Rehabilitation [facility] Start: 08-14-2021 End: 08-14-2021 Patient encounter procedure 08/14/2021 Appointment Cardiac Rehabilitation [facility] Start: 08-14-2021 End: 08-14-2021 Patient encounter procedure 08/14/2021 Appointment Cardiac Rehabilitation [facility] Start: 08-13-2021 End: 08-13-2021 Patient encounter procedure 08/13/2021 Appointment Cardiac Rehabilitation [facility] Start: 08-13-2021 End: 08-13-2021 Patient encounter procedure 08/13/2021 Appointment Cardiac Rehabilitation [facility] Start: 08-11-2021 End: 08-11-2021 Patient encounter procedure 08/11/2021 Appointment Cardiac Rehabilitation [facility] Start: 08-11-2021 End: 08-11-2021 Patient encounter procedure 08/11/2021 Appointment Cardiac Rehabilitation [facility] Start: 08-07-2021 End: 08-07-2021 Patient encounter procedure 08/07/2021 Appointment Cardiac Rehabilitation [facility] Start: 08-07-2021 End: 08-07-2021 Patient encounter procedure 08/07/2021 Appointment Cardiac Rehabilitation [facility] Start: 08-06-2021 End: 08-06-2021 Patient encounter procedure 08/06/2021 Appointment Cardiac Rehabilitation [facility] Start: 08-06-2021 End: 08-06-2021 Patient encounter procedure 08/06/2021 Appointment Cardiac Rehabilitation [facility] Start: 08-04-2021 End: 08-04-2021 Patient encounter procedure 08/04/2021 Appointment Cardiac Rehabilitation [facility] Start: 08-04-2021 End: 08-04-2021 Patient encounter procedure 08/04/2021 Appointment Cardiac Rehabilitation [facility] Start: 07-31-2021 End: 07-31-2021 Patient encounter procedure 07/31/2021 Appointment Cardiac Rehabilitation [facility] Start: 07-31-2021 End: 07-31-2021 Patient encounter procedure 07/31/2021 Appointment Cardiac Rehabilitation [facility] Start: 07-30-2021 End: 07-30-2021 Patient encounter procedure 07/30/2021 Appointment Cardiac Rehabilitation [facility] Start: 07-30-2021 End: 07-30-2021 Patient encounter procedure 07/30/2021 Appointment Cardiac Rehabilitation [facility] Start: 07-28-2021 End: 07-28-2021 Patient encounter procedure 07/28/2021 Appointment Cardiac Rehabilitation [facility] Start: 07-28-2021 End: 07-28-2021 Patient encounter procedure 07/28/2021 Appointment Cardiac Rehabilitation [facility] Start: 2021 End: 2021 Patient encounter procedure 2021 Appointment Cardiac Rehabilitation [facility] Start: 2021 End: 2021 Patient encounter procedure 2021 Appointment Cardiac Rehabilitation [facility] Start: 07-23-2021 End: 07-23-2021 Patient encounter procedure 07/23/2021 Appointment Cardiac Rehabilitation [facility] Start: 07-23-2021 End: 07-23-2021 Patient encounter procedure 07/23/2021 Appointment Cardiac Rehabilitation [facility] Start: 07-21-2021 End: 07-21-2021 Patient encounter procedure 07/21/2021 Appointment Cardiac Rehabilitation [facility] Start: 07-17-2021 End: 07-17-2021 Patient encounter procedure 07/17/2021 Appointment Cardiac Rehabilitation [facility] Start: 07-16-2021 End: 07-16-2021 Patient encounter procedure 07/16/2021 Appointment Cardiac Rehabilitation [facility] Start: 07-14-2021 End: 07-14-2021 Patient encounter procedure 07/14/2021 Appointment Cardiac Rehabilitation [facility] Start: 07-10-2021 End: 07-10-2021 Patient encounter procedure 07/10/2021 Appointment Cardiac Rehabilitation [facility] Start: 07-09-2021 End: 07-09-2021 Patient encounter procedure 07/09/2021 Appointment Cardiac Rehabilitation [facility] Start: 07-07-2021 End: 07-07-2021 Patient encounter procedure 07/07/2021 Appointment Cardiac Rehabilitation [facility] Start: 07-03-2021 End: 07-03-2021 Patient encounter procedure 07/03/2021 Appointment Cardiac Rehabilitation [facility] Start: 07-02-2021 End: 07-02-2021 Patient encounter procedure 07/02/2021 Appointment Cardiac Rehabilitation [facility] Start: 06-30-2021 End: 06-30-2021 Patient encounter procedure 06/30/2021 Appointment Cardiac Rehabilitation [facility] Start: 06-26-2021 End: 06-26-2021 Patient encounter procedure 06/26/2021 Appointment Cardiac Rehabilitation [facility] Start: 06-25-2021 End: 06-25-2021 Patient encounter procedure 06/25/2021 Appointment Cardiac Rehabilitation [facility] Start: 06-23-2021 End: 06-23-2021 Patient encounter procedure 06/23/2021 Appointment Cardiac Rehabilitation [facility] Start: 06-19-2021 End: 06-19-2021 Patient encounter procedure 06/19/2021 Appointment Cardiac Rehabilitation [facility] Start: 06-18-2021 End: 06-18-2021 Patient encounter procedure 06/18/2021 Appointment Cardiac Rehabilitation [facility] Start: 06-16-2021 End: 06-16-2021 Patient encounter procedure 06/16/2021 Appointment Cardiac Rehabilitation [facility] Start: 06-12-2021 End: 06-12-2021 Patient encounter procedure 06/12/2021 Appointment Cardiac Rehabilitation [facility] Start: 06-11-2021 End: 06-11-2021 Patient encounter procedure 06/11/2021 Appointment Cardiac Rehabilitation [facility] Start: 06-09-2021 End: 06-09-2021 Patient encounter procedure 06/09/2021 Appointment Cardiac Rehabilitation [facility] Start: 06-05-2021 End: 06-05-2021 Patient encounter procedure 06/05/2021 Appointment Cardiac Rehabilitation [facility] Start: 06-04-2021 End: 06-04-2021 Patient encounter procedure 06/04/2021 Appointment Cardiac Rehabilitation [facility] Start: 06-02-2021 End: 06-02-2021 Patient encounter procedure 06/02/2021 Appointment Cardiac Rehabilitation [facility] Start: 05-29-2021 End: 05-29-2021 Patient encounter procedure 05/29/2021 Appointment Cardiac Rehabilitation [facility] Start: 05-28-2021 Influenza vaccination Flu vaccine (#1) [employer] Phone: Start: 05-28-2021 End: 05-28-2021 Patient encounter procedure 05/28/2021 Appointment Cardiac Rehabilitation [facility] Start: 05-26-2021 End: 05-26-2021 Patient encounter procedure 05/26/2021 Appointment Cardiac Rehabilitation [facility] Start: 05-22-2021 End: 05-22-2021 Patient encounter procedure 05/22/2021 Appointment Cardiac Rehabilitation [facility] Start: 05-21-2021 End: 05-21-2021 Patient encounter procedure 05/21/2021 Appointment Cardiac Rehabilitation [facility] Start: 05-19-2021 End: 05-19-2021 Patient encounter procedure 05/19/2021 Appointment Cardiac Rehabilitation [facility] Start: 05-15-2021 End: 05-15-2021 Patient encounter procedure 05/15/2021 Appointment Cardiac Rehabilitation [facility] Start: 05-14-2021 End: 05-14-2021 Patient encounter procedure 05/14/2021 Appointment Cardiac Rehabilitation [facility] Start: 05-12-2021 End: 05-12-2021 Patient encounter procedure 05/12/2021 Appointment Cardiac Rehabilitation [facility] Start: 05-08-2021 End: 05-08-2021 Patient encounter procedure 05/08/2021 Appointment Cardiac Rehabilitation [facility] Start: 05-07-2021 End: 05-07-2021 Patient encounter procedure 05/07/2021 Appointment Cardiac Rehabilitation [facility] Start: 05-05-2021 End: 05-05-2021 Patient encounter procedure 05/05/2021 Appointment Cardiac Rehabilitation [facility] Start: 05-01-2021 End: 05-01-2021 Patient encounter procedure 05/01/2021 Appointment Cardiac Rehabilitation [facility] Start: 04-30-2021 End: 04-30-2021 Patient encounter procedure 04/30/2021 Appointment Cardiac Rehabilitation [facility] Start: 04-28-2021 End: 04-28-2021 Patient encounter procedure 04/28/2021 Appointment Cardiac Rehabilitation [facility] Start: 04-24-2021 End: 04-24-2021 Patient encounter procedure 04/24/2021 Appointment Cardiac Rehabilitation [facility] Start: 04-23-2021 End: 04-23-2021 Patient encounter procedure 04/23/2021 Appointment Cardiac Rehabilitation [facility] Start: 04-21-2021 End: 04-21-2021 Patient encounter procedure 04/21/2021 Appointment Cardiac Rehabilitation [facility] Start: 04-17-2021 End: 04-17-2021 Patient encounter procedure 04/17/2021 Appointment Cardiac Rehabilitation [facility] Start: 04-16-2021 End: 04-16-2021 Patient encounter procedure 04/16/2021 Appointment Cardiac Rehabilitation [facility] Start: 04-14-2021 End: 04-14-2021 Patient encounter procedure 04/14/2021 Appointment Cardiac Rehabilitation [facility] Start: 04-10-2021 End: 04-10-2021 Patient encounter procedure 04/10/2021 Appointment Cardiac Rehabilitation [facility] Start: 2012 Screening for malignant neoplasm of breast Breast cancer screen [employer] Phone: Start: 2012 Shingles Vaccine (1 of 2) Shingles Vaccine (1 of 2) [employer] Phone: Start: 2007 Screening for malignant neoplasm of colon Colon cancer screen colonoscopy [employer] Phone: Start: 2002 Diabetes screen Diabetes screen [employer] Phone: Start: 1992 Screening for malignant neoplasm of cervix [employer] Phone: Start: 1983 Screening for malignant neoplasm of cervix [employer] Phone: Start: 1981 DTaP/Tdap/Td vaccine (1 - Tdap) DTaP/Tdap/Td vaccine (1 - Tdap) [employer] Phone: Start: 1977 HIV screening HIV screen [employer] Phone: Start: 1974 COVID-19 Vaccine (1) COVID-19 Vaccine (1) [employer] Phone: Start: 1972 Lipid panel Lipid screen [employer] Phone: Start: 1968 Pneumococcal 0-64 years Vaccine (1 of 2 - PPSV23) Pneumococcal 0-64 years Vaccine (1 of 2 - PPSV23) [employer] Phone: Start: 1962 Creatinine measurement Creatinine monitoring [employer] Phone: Start: 1960 Hepatitis C screening Hepatitis C screen [employer] Phone: Start: 1960 Potassium monitoring Potassium monitoring [employer] Phone: CARDIAC PHASE II [employer] Phone: Comment on above: Ordered: 05/26/2021 Ordered: 05/28/2021 Ordered: 07/02/2021 Payers Date Payer Category Payer Unknown [id number] 2.16.8 40.1.352350.3.579.2.173 1962 Unknown [id number] 2.16.8 40.1.037980.3.579.2.173 1962 Unknown [id number] 2.16.8 40.1.404398.3.579.2.173 1962 Unknown [id number] 2.16.8 40.1.892612.3.579.2.173 1962 Unknown [id number] 2.16.8 40.1.491072.3.579.2.173 1962 Unknown [id number] 2.16.8 40.1.640383.3.579.2.173 1962 Unknown [id number] 2.16.8 40.1.642619.3.579.2.173 1962 Unknown [id number] 2.16.8 40.1.406304.3.579.2.173 1962 Unknown [id number] 2.16.8 40.1.051739.3.579.2.173 1962 Unknown [id number] 2.16.8 40.1.604815.3.579.2.173 1962 Unknown [id number] 2.16.8 40.1.974061.3.579.2.173 1962 Unknown [id number] 2.16.8 40.1.193726.3.579.2.173 1962 Unknown [id number] 2.16.8 40.1.278624.3.579.2.173 1962 Unknown [id number] 2.16.8 40.1.835809.3.579.2.173 1962 Unknown [id number] 2.16.8 40.1.351748.3.579.2.173 1962 Unknown [id number] 2.16.8 40.1.686190.3.579.2.173 1962 Unknown [id number] 2.16.8 40.1.938474.3.579.2.173 1962 Unknown [id number] 2.16.8 40.1.207134.3.579.2.173 1962 Unknown [id number] 2.16.8 40.1.883096.3.579.2.173 1962 Unknown [id number] 2.16.8 40.1.442209.3.579.2.173 1962 Unknown [id number] 2.16.8 40.1.864221.3.579.2.173 1962 Unknown [id number] 2.16.8 40.1.831017.3.579.2.173 1962 Unknown [id number] 2.16.8 40.1.046931.3.579.2.173 1962 Unknown [id number] 2.16.8 40.1.438065.3.579.2.173 1962 Unknown [id number] 2.16.8 40.1.157429.3.579.2.173 1962 Unknown [id number] 2.16. 840.1.430213.3.579.2.356 1962 Unknown [id number] 2.16. 840.1.926248.3.579.2.356 1962 Unknown [id number] 2.16. 840.1.068001.3.579.2.356 1962 Unknown [id number] 2.16.84 0.1.613885.3.579.2.593 1962 Unknown [id number] 2.16.84 0.1.363018.3.579.2.593 1962 Unknown [id number] 2.16.84 0.1.300474.3.579.2.593 1962 Unknown [id number] 2.16.84 0.1.208684.3.579.2.593 1959 Medicaid [id number] 1959 Unknown [id number] Unknown Social History Date Type Detail Facility Start: 04-08-2021 [facility] [employer] Phone: History of tobacco use Cigarette Smoker M [employer] Start: 04-08-2021 Cigarettes smoked current (pack per day) - Reported [employer] Phone: Comment on above: POP DAILY; 6 CIGS A DAY; Start: 04-08-2021 Tobacco use and exposure Never used [employer] Start: 04-08-2021 Alcohol intake Ex-drinker (finding) [employer] Phone: Start: 04-08-2021 Tobacco Comment 2 cigs a day [email or web address] Phone: Start: 1960 Sex Assigned At Not on file [email or web address] Phone: History of Present illness Narrative 04-08-2021 Dana Romero RN - 04/08/2021 11:00 AM EDT Note Date & Type Note Facility 04-08-2021 History of Present illness Narrative Cardiac Rehab Initial History and Assessment Fausto Corrigan 1960 04/08/2021 Primary Diagnosis: s/p PTCA Living Will: No On File: N/A Durable Power of Peg Driver:No Medical History Past Medical History: Diagnosis Date Arthritis Asthma Back injury CAD (coronary artery disease) COPD (chronic obstructive pulmonary disease) (HCC) Diabetes mellitus (HCC) Hyperlipidemia Hypertension STEMI (ST elevation myocardial infarction) (HCC) Thyroid disease Past Surgical History: Procedure Laterality Date APPENDECTOMY CARDIAC SURGERY 03/20/2021 PTCA CHOLECYSTECTOMY FRACTURE SURGERY HYSTERECTOMY Family History History reviewed. No pertinent family history. Symptoms: 1. Angina [x] None [] Tightness [] Shortness of Breath [] Pressure [] Nausea [] Sharp, Stabbing [] Pallor [] Indigestion, Heartburn [] Sweaty Where was discomfort located? Precipitating Factors? Relieved by: 2. Arrhythmia [x] None [] Irregular Beats (skips) [] Pacer [] Atrial Fibrillation [] AICD On any Medications? 3. Congestive Heart Failure [x] None [] Pedal Edema [] Unusual weight gain [] SOB with mild exertion [] Fatigue 4. Vascular [x] None [] Carotid Narrowing [] R [] L [] Peripheral claudication [] R [] L 5. Musculoskeletal [] None [x] Back Pain Where? Lumbar spine [x] Joint discomfort Where? Rt foot/ ankle Socio-Economic Marital Status: Nutrition Appetite: [] Too Good [x] Good [] Poor Diet: heart healthy diet but does not follow Eating out 0 times/wk Alcohol Consumption: [] Yes [x] No Type: Frequency: Caffeine: [x] Yes [] No Type: soda Amount: 2 per day Water intake per day: little Vitamins/Natural herbal products: none Psychological [] Depression [] Tearful [] Fearful [] Cheerful [x] Anxious [] Motivated [x] Overwhelmed Treatment: none Diabetes [x] Yes [] No How lon+ years Latest BS: does not check Frequency of Checks: does not check Medication: jardiance Stress Source: caregiver, health, family issues Relaxation techniques: watch TV Hobbies: on-line games; baking Level of Education [] 8th Grade [] Associates [] Masters [x] High School [] Bachelor [] Other: Depression Screening: NONE [] Have you been feeling sad...down in the dumps? [] Have you lost interest in your job, sports, hobbies, friends? [] Do you often feel tired? [] Do you have trouble sleeping or do you sleep too much? [] Have you been gaining or losing weight? [] Do you often feel down on yourself, that everything is your fault? [] Do you have troubled making decisions or concentrating on your work? [] Do you often feel agitated or like you can barely move? [] Do you ever feel that life isn't worth living? *If greater than 5 symptoms listed, aids social worker notified. Cardiac Rehab Pre - Test 1. The heart is a muscle that acts like a pump to deliver oxygen and blood to the rest of the body. [x] True [] False 2. Healing from the damage of a heart attach is complete in two weeks. [] True [x] False 3. Smoking has no direct effect on the heart - it only effects your lungs. [x] True [] False 4. Using all the salt you want is acceptable for all heart patients. [x] True [] False 5. Chest pain that is relieved by rest or nitroglycerine is called Angina. [x] True [] False 6. Shortness of breath, indigestion, sweating, tightness or pain in your chest are symptoms of a heart attack. [x] True [] False 7. Swelling of the feet and ankles only means you've been on your feet too much. [] True [x] False 8. Saturated fats raised your blood cholesterol level more than anything else in your diet. [x] True [] False 9. High Blood pressure can take care of itself by rest alone. [] True [x] False 10. Walking is one of the best exercises for heart attack patients. [x] True [] False Physical Findings BP: (!) 144/82 Pulse: 64 Resp: 18 SpO2: 97 % Lungs clear. Heart tones regular. Denies chest pain. Reports dyspnea with exertion. Goals: -increased stamina/strength to 30-50 total exercise by increasing 1-2 level/wk and 1-2 min/wk to achieve THR and RPE 12-16 on Emili RPE scale -introduce weights/ therabands 2-4# for 5-10 reps -manage BP better -improved cholesterol and Triglycerides -develop regular exercise 30 min daily -smoking cessation documented in this encounter [employer] Phone: Summary Purpose Family History No Family History Records FoundUnknown Family Member Name Dates Details FH: diabetes mellitus: Mikele r, Father(V18.0, Z83.3) Status:Active Family history of malignant neoplasm: Mother, Father(V16.9, Z80.9) Status:Active Heart problem: Mother, Fathe r Status:Active Unknown Family Member Name Dates Details FH: diabetes mellitus: Mikele r, Father(V18.0, Z83.3) Status:Active Family history of malignant neoplasm: Mother, Father(V16.9, Z80.9) Status:Active Heart problem: Mother, Fathe r Status:Active Unknown Family Member Name Dates Details FH: diabetes mellitus: Eva lopez, Father(V18.0, Z83.3) Status:Active Family history of malignant neoplasm: Mother, Father(V16.9, Z80.9) Status:Active Heart problem: Anel Lyons r Status:Active Unknown Family Member Name Dates Details FH: diabetes mellitus: Eva r, Father(V18.0, Z83.3) Status:Active Family history of malignant neoplasm: Mother, Father(V16.9, Z80.9) Status:Active Heart problem: Anel Lyons r Status:Active Advance Directives No Advanced Directives Records FoundNo Advanced Directives Records FoundNo Advanced Directives Records FoundNo Advanced Directives Records FoundNo Advanced Directives Records FoundNo Advanced Directives Records FoundNo Advanced Directives Records FoundNo Advanced Directives Records FoundNo Advanced Directives Records Found Chief Complaint * FAUSTO CORRIGAN is being seen for a 6 month follow-up of. * Patient is a 61-year-old female who returns for follow-up. She had inferior ST elevation AK with primary revascularization of the RCA in February 2021. This is my first time seeing her back since her event she did see nurse practitioner once. She does have issues with Brilinta associated dyspnea/shortness of breath. * She has underlying hypertension, diabetes mellitus, hyperlipidemia, obesity and current smoker approximately 2 to 3 cigarettes daily. We counseled her for 3 minutes in smoking cessation. * She otherwise remains relatively sedentary, she has 8 sessions of cardiac rehab left. * Recommendations, continue current therapies, switch from Brilinta to clopidogrel given her significant dyspnea, we will follow-up in 6 months * FAUSTO CORRIGAN is being seen for a 6 month follow-up of. * Patient is a 62-year-old female returns for follow-up and doing well other than issues with ongoingdental abscess and the need for removal of 5 teeth. She has a history of previous inferior AK in February 2021 (late presenting AK) with PCI of the RCA at that time. She also has underlying diabetes, hype rtension, hyperlipidemia, obesity and ongoing tobacco counseled her for 3 to 5 minutes today on tobacco cessation and importantly regards to healing and dental hygiene. * She has no angina, hospitalizations or heart failure * Remains on appropriate guideline directed medical therapies however at this time would be most appropriate to come off her clopidogrel as its been over a year and a half. * Will follow-up in 1 year, recommend tobacco cessation strongly, discontinue clopidogrel Additional Source Comments INFORMATION SOURCE (unrecogn ized section and content) DATE CREATED AUTHOR 03/22/2018 [facility] DATE CREATED AUTHOR AUTHOR'S ORGANIZ ATION 04/18/2018 [facility] DATE CREATED AUTHOR AUTHOR'S ORGANIZ ATION 04/18/2018 [facility] DATE CREATED AUTHOR AUTHOR'S ORGANIZ ATION 04/08/2021 [facility] DATE CREATED AUTHOR AUTHOR'S ORGANIZ ATION 08/21/2021 [facility] DATE CREATED AUTHOR AUTHOR'S ORGANIZ ATION 10/19/2021 [facility] DATE CREATED AUTHOR AUTHOR'S ORGANIZ ATION 10/06/2022 [facility] DATE CREATED AUTHOR AUTHOR'S ORGANIZ ATION 10/07/2022 [employer] DATE CREATED AUTHOR AUTHOR'S ORGANIZ ATION 01/21/2023 [facility] FOR RECORDS PERTAINING TO PATIENTS WHO ARE OR HAVE BEEN ENROLLED IN A CHEMICAL DEPENDENCY/SUBSTANCEABUSE PROGRAM, SOME INFORMATION MAY BE OMITTED. This clinical summary was aggregated from multiple sources. Caution should be exercised in using it in the provision of clinical care. This summary normalizes information from multiple sources, and as a consequence, information in this document may materially change the coding, format and clinical context of patient data. In addition, data may be omitted in some cases. CLINICAL DECISIONS SHOULD BE BASED ON THE PRIMARY CLINICAL RECORDS. [employer] provides no warranty or guarantee of the accuracy or completeness of information in this document.
== END 2023-09-06 12:45 | disposition home or self-care (01) ==
LOC: LAB 12:44
PROVIDERS: PCP Nurse Practitioner; Visit Provider Nurse Practitioner
DX: Z20.822 Contact with and (suspected) exposure to COVID-19 (principal)
CPT/HCPCS: 87635; 87811

== ENCOUNTER 2023-09-10 10:15 | Outpatient (OUT) | payer OTHER, SELFPAY ==
--- NOTE | 2023-09-10 10:34 | CT_ITS ---
[address] [address] Patient Name: FAUSTO KRISHNAMURTHY MRN: [id number] date: 1960 Sex: F Assigned Patient Location: CT Current Patient Location: Accession/Order Number: [id number] Exam Date: 09/10/2023 10:28 Report Date: 09/13/2023 09:44 At the request of: OLIVER ALVARADO Procedure: CT lung screening low-dose EXAMINATION: CT lung screening low-dose HISTORY: Screening For Respiratory Malignancy Z12.2, Nicotine Depende COMPARISON: 09/01/2022 TECHNIQUE: Axial, Coronal, and Sagittal images were created without the administration of IV contrast material. Dose reduction techniques were achieved by using automated exposure control and/or adjustment of mA and/or kV according to patient size and/or use of iterative reconstruction technique. FINDINGS: LUNGS: Mild stable emphysematous changes with an apical predominance. Again demonstrated are multiple areas of patchy solid and semisolid opacities scattered throughout both lungs the largest being ill-defined groundglass opacities in the left lower lobe measuring 5.2 x 5.4 cm on axial image #88. There is been interval development of a new 1.3 cm solid/semisolid nodule in the right lower lobe axial image #77 PLEURA: No mass, effusion, or pneumothorax. VASCULATURE: No abnormality. LARRY: No mass or pathologic adenopathy. MEDIASTINUM: No mass or pathologic adenopathy. CARDIAC: No enlargement. No pericardial effusion. Mild to moderate coronary atherosclerosis AORTA: No aortic aneurysm CHEST WALL: No mass or axillary adenopathy BONES: No bone lesion or fracture. LIMITED ABDOMEN: Clips from cholecystectomy OTHER: Negative. CT/CT lung screening low-dose IMPRESSION: 1.3 cm right lower lobe nodule. Further evaluation required LUNG SCREENING: Lung-RADS Category 4B- Suspicious. Findings for which additional diagnostic testing and/ or tissue sampling is recommended. Chest CT with or without contrast, PET/CT and/ or tissue sampling depending on the * probability of malignancy and comorbidities. PET/CT may be used when there is a >= 8 mm solid component. Electronically authenticated by: LEV CARDONA Date: 09/13/2023 09:44
== END 2023-09-10 10:16 | disposition home or self-care (01) ==
LOC: CT 10:15
PROVIDERS: PCP Nurse Practitioner; Visit Provider Internal Medicine
DX: R91.1 Solitary pulmonary nodule (principal); F17.219 Nicotine dependence, cigarettes, with unspecified nicotine-induced disorders; Z12.2 Encounter for screening for malignant neoplasm of respiratory organs
CPT/HCPCS: 71271

== ENCOUNTER 2023-11-24 10:21 | Outpatient (OUT) | payer OTHER, SELFPAY ==
--- OUTSIDE RECORDS SUMMARY | 2023-11-24 10:34 | XMS_ITS | CCD ---
Author Name Unknown Address [id number] [place] [address] Organization [facility] Care Team Providers Care Chestnut Tanner Name Role Phone YANELIS, ESEQUIEL C Unavailable [...] Unavailable Unavailmaddie Mills MD, [facility] Primary Care Provider ROSS, DARA Primary Care [...] Care Unavailable RAFAEL WASHINGTON Referring Unavailab le PARISH, DARA Primary Care Unavailable PARISH, DARA Primary Care Unavailable Dara Mills E Unavailable Unavailable Unavailable Aichholz, Veronique Randee Unavailable Felix, Dr. Rafael Acevedo Attending Pelon Washington, Dr. Rafael Acevedo Referring Pelon Mills, Dr. Draa Chino Primary Care Unavailab citlalli Washington, Dr. Rafael Acevedo Attending Unava ilshay Mills, Dr. Dara Chino Primary Care Unavailab citlalli Washington, Dr. Rafael Acevedo Attending Unava pablo Washington, Dr. Rafael Acevedo Referring Unava pablo Mills, Dr. Dara Chino Primary Care Unavailab le SAMSA ., OLIVER Admitting Unavailable SAMSA ., OLIVER Attending Unavailable AICHHOLZ, PACK CHANGER VERONIQUE Primary Care Unavailable ZIEBDIEGO, DR HANNAH [employer] Unavailable SAMSA ., OLIVER Consulting Unavailable AICHHOLZ, PACK CHANGER VERONIQUE Admitting Unavailable AICHHOLZ, PACK CHANGER VERONIQUE Attending Unavailable AICHHOLZ, PACK CHANGER VERONIQUE Primary Care Unavailable AICHHOLZ, PACK CHANGER VERONIQUE Consulting Unavailable AICHHOLZ, PACK CHANGER VERONIQUE Admitting Unavailable AICHHOLZ, PACK CHANGER VERONIQUE Attending Unavailable AICHHOLZ, PACK CHANGER VERONIQUE Primary Care Unavailable AICHHOLZ, PACK CHANGER VERONIQUE Consulting Unavailable AICHHOLZ, PACK CHANGER VERONIQUE Primary Care Unavailable KAISER, MARIANO Admitting Unavailable KAISER, MARIANO Attending Unavailable JANET .SHILA Consulting Unavailabl e Allergies Allergy Classification Reported Allergen(s) Allergy Type Date of Onset Reaction(s) Facility Sulfonamides (antibiotic) (6 sources) Sulfonamides (Antibiotic) Drug Allergy 1 [facility] (3 sources) Sulfonamides (Antibiotic); Translations: [SULFA (SULFONAMIDE ANTIBIOTICS)] Propensity to adverse reactions to drug (disorder) 7 [facility] (13 sources) Sulfonamides (Antibiotic) Propensity to adverse reactions to drug 1 [facility] (4 sources) Sulfamethoxazole; Translations: [sulfa] Drug Allergy Itching [place] [address] DO Work Phone: (1 source) Sulfonamides (Antibiotic) Drug allergy (disorder) 3 [facility] Repository Medications Current Medications Medication Drug Class(es) [...] Drug Class(es) Dates Sig (Normalized) Sig (Original) [id number] 200 actuat albuterol 0.09 mg/actuat metered dose [...] Daily Quantity: 30 Refills: 0 Ordered: 29-Sep-2022 Lawrence Catalan APRN-Daria SAHNI Start : 16-Oct-2021 Active empagliflozin 25 mg [...] [Coronary atherosclerosis of unspecified type of vessel, [place] or graft] Chronic Diabetes mellitus without complication [...] 03-17-2018 Chronic Other aftercare (1 source) 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; Translations: [OTH RETIREMENT CURRENT DRUG THERAPY] Onset: 01-20-2023 Episodic Other [...] Hypothyroidism; Translations: [Unspecified acquired hypothyroidism] Onset: 06-17-2022 Chronic Unclassified (2 sources) Unknown / UNK(Unknown) Onset: 06-07-2017 Past or Other Problems Problem Classification Problem Date Documented Da te Episodic/Chronic Unclassified (1 source) Peroneal tendinitis, right leg Onset: 03-17-2018 Results Test Name Value Interpretation Reference Range Facility Office Visit (Cardiology)on 10-06-2022 Follow-up visit Diagnoses/Problems Assessed History of PTCA (V45.82) (Z98.61) CAD (coronary artery disease) (414.00) (I25.10) Hyperlipidemia (272.4) (E78.5) Diabetes mellitus (250.00) (E11.9) COPD (chronic obstructive pulmonary disease) (496) (J44.9) Overweight with body mass index (BMI) of 29 to 29.9 in adult (278.02,V85.25) (E66.3,Z68.29) Current every day smoker (305.1) (F17.200) 6 CIGS A DAY History of WI (myocardial infarction) (412) (I25.2) Benign essential hypertension [...] we can help. You may also call 8-458-HSCE-NOW for free resources and assistance.; Status:Complete - [...] She has a history of previous inferior WI in February 2021 (late presenting WI) with PCI of the RCA at that [...] DAILY Current (more content not included)... Normal [facility] Scre[facility].on 023 Adult depression screening assessment No -[facility] [address] DO Work Phone: Fall risk assessment c) Not medically indicated MP-No rth [place] [facility] [employer] 250 DO Work Phone: Tobacco use status CP a) Yes -[facility] [place] [address] DO Work Phone: Tobacco Screening. Yes [facility] [place] 250 DO Work Phone: CT LUNG CANCER [...] HANNAH MOORE Date: 2022-09-01 10:57 Normal [facility] CBC AUTO DIFFon 06-17-2022 BASO # 0.1 103/ul Normal 0.0-0.1 [facility] Comment on above: Performed By: #### C BC #### [facility] [address] [place] [address] Dr. Oneal Vieyra Basophils/100 WBC (Bld) 0.5 % Normal 0.2-2.0 [facility] Comment on above: Performed By: #### C BC #### [facility] [address] [address] [address] Oneal Vieyra EO # 0.1 103/ul Normal 0.0-0.7 [facility] Comment on above: Performed By: #### C BC #### [facility] [address] [place] [address] Dr. Oneal Vieyra Eosinophils/100 WBC (Bld) 1.3 % Normal 0.9-7.0 [facility] Comment on above: Performed By: #### C BC #### [facility] [address] [place] [address] Dr. Oneal Vieyra Erythrocyte distribution width (RBC) [Ratio] 13.4 % Normal 11.0-15.0 [facility] Comment on above: Performed By: #### C BC #### [facility] [address] [place] [address] Dr. Oneal Vieyra Hematocrit (Bld) [Volume fraction] 51.8 % Critically high 36.0-48.0 [facility] Comment on above: Performed By: #### C BC #### [facility] [address] [place] [address] Dr. Oneal Vieyra Hemoglobin (Bld) [Mass/Vol] 16.1 g/dL Critically high 12.0-16.0 [facility] Comment on above: Performed By: #### C BC #### [facility] [address] [place] [address] Dr. Oneal Vieyra IG # 0.03 10e3/ul Normal 0.00-0.03 [facility] Comment on above: Performed By: #### C BC #### [facility] [address] [place] [address] Dr. Oneal Vieyra IG % 0.3 % Normal 0.0-0.5 [facility] Comment on above: Performed By: #### C BC #### [facility] [address] [place] [address] Dr. Oneal Vieyra LYMPH # 3.7 103/ul Normal 1.2-3.8 [facility] Comment on above: Performed By: #### C BC #### [facility] [address] [place] [address] Dr. Oneal Vieyra Lymphocytes/100 WBC (Bld) 34.5 % Normal 20.5-60.0 [facility] Comment on above: Performed By: #### C BC #### [facility] [address] [place] [address] Dr. Oneal Vieyra MANUAL DIFF REQ NO Normal [facility] Comment on above: Performed By: #### C BC #### [facility] [address] [place] [address] Dr. Oneal Vieyra MCH (RBC) [Entitic mass] 29.7 pg Normal 26.7-34.0 [facility] Comment on above: Performed By: #### C BC #### [facility] [address] [place] [address] Dr. Oneal Vieyra MCHC (RBC) [Mass/Vol] 31.1 g/dL Normal 29.9-35.2 [facility] Comment on above: Performed By: #### C BC #### [facility] [address] [address] [address] Oneal Vieyra MCV (RBC) [Entitic vol] 95.6 fL Normal 81.0-99.0 [facility] Comment on above: Performed By: #### C BC #### [facility] [address] [address] [address] Oneal Vieyra MONO # 0.8 103/ul Normal 0.3-0.8 [facility] Comment on above: Performed By: #### C BC #### [facility] [address] [address] [address] Oneal Vieyra Monocytes/100 WBC (Bld) 7.6 % Normal 1.7-12.0 [facility] Comment on above: Performed By: #### C BC #### [facility] [address] [place] [address] Dr. Oneal Vieyra NEUT # 5.9 103/ul Normal 1.4-6.5 [facility] Comment on above: Performed By: #### C BC #### [facility] [address] [place] [address] Dr. Oneal Vieyra Neutrophils/100 WBC (Bld) 55.8 % Normal 43.0-75.0 [facility] Comment on above: Performed By: #### C BC #### [facility] [address] [place] [address] Dr. Oneal Vieyra Platelet mean volume (Bld) [Entitic vol] 12.1 fL Normal 9.5-13.5 [facility] Comment on above: Performed By: #### C BC #### [facility] [address] [place] [address] Dr. Oneal Vieyra PLT 224 103/ul Normal 150-450 [facility] Comment on above: Performed By: #### C BC #### [facility] [address] [place] [address] Dr. Oneal Vieyra RBC 5.42 106/ul Critically high 4.20-5.40 [facility] Comment on above: Performed By: #### C BC #### [facility] [address] [place] [address] Dr. Oneal Vieyra WBC 10.6 103/ul Normal 4.0-11.0 [facility] Comment on above: Performed By: #### C BC #### [facility] [address] [place] [address] Dr. Oneal Vieyra FREE T4on 06-17-2022 Free T4 [Mass/Vol] 0.98 ng/dL Normal 0.76-1.46 [facility] Comment on above: Performed By: #### F T4 #### [facility] [address] [place] [address] Dr. Oneal Vieyra GLYCOHEMOGLOBIN A1Con 2021 ADA RECOMMENDATION SEE BELOW Normal [facility] Comment on above: Result Comment: ADA RECOMMENDED LIMIT 4.0 - 6.0 ADA THERAPEUTIC TARGET < 7.0 ACTION SUGGESTED > 7.0 Performed By: #### A 1C #### [facility] [address] [place] [address] Dr. Oneal Vieyra Glucose [Mass/Vol] 146 mg/dL Normal [facility] Comment on above: Performed By: #### A 1C #### [facility] [address] [place] [address] Dr. Oneal Vieyra HbA1c (Bld) [Mass fraction] 6.7 % Critically high 4.5-6.2 [facility] Comment on above: Performed By: #### A 1C #### [facility] [address] [place] [address] Dr. Oneal Vieyra LIPID PROFILEon 06-17-2022 CHOL-HDL RATIO NORM SEE BELOW Normal [facility] Comment on above: Result Comment: 3.3 - 4.4 LOW RISK 4.4 - 7.1 AVERAGE RISK 7.1 - 11.0 MODERATE RISK >11.0 HIGH RISK Performed By: #### L IPID, TSH, CMP #### [facility] [address] [place] [address] Dr. Oneal Vieyra Cholesterol [Mass/Vol] 161 mg/dL Normal <=200 [facility] Comment on above: Performed By: #### L IPID, TSH, CMP #### [facility] [address] [place] [address] Dr. Oneal Vieyra Cholesterol in HDL [Mass/Vol] 33 mg/dL Critically low 40-60 [facility] Comment on above: Performed By: #### L IPID, TSH, CMP #### [facility] [address] [address] [address] Oneal Vieyra Cholesterol in LDL [Mass/Vol] 63.8 mg/dL Normal [facility] Comment on above: Performed By: #### L IPID, TSH, CMP #### [facility] [address] [address] [address] Oneal Vieyra Cholesterol.total/ Cholesterol in HDL [Mass ratio] 4.9 {ratio} Normal [facility] Comment on above: Performed By: #### L IPID, TSH, CMP #### [facility] [address] [place] [address] Dr. Oneal Vieyra HDL NORMAL > or = 60 mg/dl - LO W CARDIOVASCULAR RISK <40 mg/dl - HIGH CARDIOVASCULAR RISK Normal [facility] Comment on above: Performed By: #### L IPID, TSH, CMP #### [facility] [address] [place] [address] Dr. Oneal Vieyra LDL CALC NORMAL SEE BELOW Normal [facility] Comment on above: Result Comment: <100 mg/dl OPTIMAL 100 - 129 mg/dl NEAR OR ABOVE OPTIMAL 130 - 159 mg/dl BORDERLINE HIGH 160 - 189 mg/dl HIGH >190 mg/dl VERY HIGH Performed By: #### L IPID, TSH, CMP #### [facility] [address] [address] [address] Oneal Vieyra Triglyceride [Mass/Vol] 321 mg/dL Critically high <=150 [facility] Comment on above: Performed By: #### L IPID, TSH, CMP #### [facility] [address] [place] [address] Dr. Oneal Vieyra VLDL CALC 64.2 mg/dL Normal [facility] Comment on above: Performed By: #### L IPID, TSH, CMP #### [facility] [address] [place] [address] Dr. Oneal Vieyra PROF 14(COMP METB)on 022 Albumin [Mass/Vol] 3.7 g/dL Normal 3.4-5.0 [facility] Comment on above: Performed By: #### L IPID, TSH, CMP #### [facility] [address] [address] [address] Oneal Vieyra Albumin/Globulin [Mass ratio] 0.9 {ratio} Normal [facility] Comment on above: Performed By: #### L IPID, TSH, CMP #### [facility] [address] [address] [address] Oneal Vieyra ALP [Catalytic activity/Vol] 171 U/L Critically high 46-116 [facility] Comment on above: Performed By: #### L IPID, TSH, CMP #### [facility] [address] [place] [address] Dr. Oneal Vieyra ALT [Catalytic activity/Vol] 19 U/L Normal 14-59 [facility] Comment on above: Performed By: #### L IPID, TSH, CMP #### [facility] [address] [address] [address] Oneal Vieyra Anion gap [Moles/Vol] 5.6 mmol/L Normal [facility] Comment on above: Performed By: #### L IPID, TSH, CMP #### [facility] [address] [place] [address] Dr. Oneal Vieyra AST [Catalytic activity/Vol] 13 U/L Critically low 15-37 [facility] Comment on above: Performed By: #### L IPID, TSH, CMP #### [facility] [address] [place] [address] Dr. Oneal Vieyra Bilirubin [Mass/Vol] 0.5 mg/dL Normal 0.2-1.0 [facility] Comment on above: Performed By: #### L IPID, TSH, CMP #### [facility] [address] [place] [address] Dr. Oneal Vieyra Calcium [Mass/Vol] 9.1 mg/dL Normal 8.5-10.1 [facility] Comment on above: Performed By: #### L IPID, TSH, CMP #### [facility] [address] [address] [address] Oneal Vieyra Chloride [Moles/Vol] 105 mmol/L Normal 98-107 [facility] Comment on above: Performed By: #### L IPID, TSH, CMP #### [facility] [address] [address] [address] Oneal Vieyra CO2 [Moles/Vol] 35.3 mmol/L Critically high 21.0-32.0 [facility] Comment on above: Performed By: #### L IPID, TSH, CMP #### [facility] [address] [address] [address] Oneal Vieyra Creatinine [Mass/Vol] 0.88 mg/dL Normal 0.55-1.02 [facility] Comment on above: Performed By: #### L IPID, TSH, CMP #### [facility] [address] [address] [address] Oneal Vieyra EGFR-AF SCOTTISH >60 Normal >=60 [facility] Comment on above: Performed By: #### L IPID, TSH, CMP #### [facility] [address] [address] [address] Oneal Vieyra EGFR-NON AF SCOTTISH >60 Normal >=60 [facility] Comment on above: Performed By: #### L IPID, TSH, CMP #### [facility] [address] [address] [address] Oneal Vieyra Globulin (S) [Mass/Vol] 4.3 g/dL Normal [facility] Comment on above: Performed By: #### L IPID, TSH, CMP #### [facility] [address] [address] [address] Oneal Vieyra Glucose [Mass/Vol] 93 mg/dL Normal 74-106 [facility] Comment on above: Performed By: #### L IPID, TSH, CMP #### [facility] [address] [address] [address] Oneal Vieyra Potassium [Moles/Vol] 3.9 mmol/L Normal 3.5-5.1 [facility] Comment on above: Performed By: #### L IPID, TSH, CMP #### [facility] [address] [place] [address] Dr. Oneal Vieyra Protein [Mass/Vol] 8.0 g/dL Normal 6.4-8.2 [facility] Comment on above: Performed By: #### L IPID, TSH, CMP #### [facility] [address] [place] [address] Dr. Oneal Vieyra Sodium [Moles/Vol] 142 mmol/L Normal 136-145 [facility] Comment on above: Performed By: #### L IPID, TSH, CMP #### [facility] [address] [place] [address] Dr. Oneal Vieyra Urea nitrogen [Mass/Vol] 15.0 mg/dL Normal 7.0-18.0 [facility] Comment on above: Performed By: #### L IPID, TSH, CMP #### [facility] [address] [place] [address] Dr. Oneal Vieyra Urea nitrogen/Creatinin e [Mass ratio] 17.0 mg/mg Normal [facility] Comment on above: Performed By: #### L IPID, TSH, CMP #### [facility] [address] [place] [address] Dr. Oneal Vieyra TSHon 06-17-2022 TSH 9.403 uIU/mL Critically high 0.358-3.740 [facility] Comment on above: Performed By: #### L IPID, TSH, CMP #### [facility] [address] [place] [address] Dr. Oneal Vieyra UA RANDOM W/MICROSCOPICon BACTERIA NONE SEEN Normal NONE SEEN [facility] Comment on above: Performed By: #### U AMIC #### [facility] [address] [place] [address] Dr. Oneal Vieyra Bilirubin Ql (U) Negative Normal NEGATIVE [facility] Comment on above: Performed By: #### U AMIC #### [facility] [address] [place] [address] Dr. Oneal Vieyra CAST NONE SEEN Normal NONE SEEN [facility] Comment on above: Performed By: #### U AMIC #### [facility] [address] [address] [address] Oneal Vieyra Clarity (U) CLEAR Normal CLEAR [facility] Comment on above: Performed By: #### U AMIC #### [facility] [address] [address] [address] Oneal Vieyra Color (U) LT. YELLOW Normal YELLOW [facility] Comment on above: Performed By: #### U AMIC #### [facility] [address] [address] [address] Oneal Vieyra Crystals LM Nom (Urine sed) NONE SEEN Normal NONE SEEN [facility] Comment on above: Performed By: #### U AMIC #### [facility] [address] [place] [address] Dr. Oneal Vieyra Epithelial cells LM Ql (Urine sed) FEW Abnormal NONE SEEN /RARE [facility] Comment on above: Performed By: #### U AMIC #### [facility] [address] [address] [address] Oneal Vieyra Glucose Ql (U) >1000 Abnormal NEGATIVE [facility] Comment on above: Performed By: #### U AMIC #### [facility] [address] [address] [address] Oneal Vieyra Hemoglobin Ql (U) SMALL Abnormal NEGATIVE [facility] Comment on above: Performed By: #### U AMIC #### [facility] [address] [address] [address] Oneal Vieyra Ketones Ql (U) Negative Normal NEGATIVE [facility] Comment on above: Performed By: #### U AMIC #### [facility] [address] [address] [address] Oneal Vieyra LEUKOCYTES Negative Normal NEGATIVE [facility] Comment on above: Performed By: #### U AMIC #### [facility] [address] [address] [address] Oneal Vieyra MUCOUS NONE SEEN Normal NONE SEEN [facility] Comment on above: Performed By: #### U AMIC #### [facility] [address] [address] [address] Oneal Vieyra Nitrite Ql (U) Negative Normal NEGATIVE [facility] Comment on above: Performed By: #### U AMIC #### [facility] [address] [place] [address] Dr. Oneal Vieyra pH (U) 6.0 [pH] Normal 5-9 [facility] Comment on above: Performed By: #### U AMIC #### [facility] [address] [place] [address] Dr. Oneal Vieyra RBC 0-2 Normal 0-2 [facility] Comment on above: Performed By: #### U AMIC #### [facility] [address] [place] [address] Dr. Oneal Vieyra SPEC GRAVITY <=1.005 Abnormal 1.005-<=1.0 25 [facility] Comment on above: Performed By: #### U AMIC #### [facility] [address] [place] [address] Dr. Oneal Vieyra UA PROTEIN Negative Normal NEGATIVE/ TRACE [facility] Comment on above: Performed By: #### U AMIC #### [facility] [address] [place] [address] Dr. Oneal Vieyra Urobilinogen Qn (U) 0.2 {Ashwini'U}/dL Normal 0.2 - 1.0 [facility] Comment on above: Performed By: #### U AMIC #### [facility] [address] [place] [address] Dr. Oneal Vieyra WBC NONE SEEN Normal NONE SEEN [facility] Comment on above: Performed By: #### U AMIC #### [facility] [address] [place] [address] Dr. Oneal Vieyra MICROALBUMIN, RAND URon 02-25 mALB <1.3 Normal <=30.0 [facility] Comment on above: Performed By: #### M ALBR #### [facility] [address] [place] [address] Dr. Oneal Vieyra UA RANDOM W/MICROSCOPICon BACTERIA NONE SEEN Normal NONE SEEN [facility] Comment on above: Performed By: #### U AMIC #### [facility] [facility] [address] [address] [address] Oneal Vieyra Bilirubin Ql (U) Negative Normal NEGATIVE [facility] Comment on above: Performed By: #### U AMIC #### [facility] [address] [address] [address] Oneal Vieyra CAST NONE SEEN Normal NONE SEEN [facility] Comment on above: Performed By: #### U AMIC #### [facility] [address] [address] [address] Oneal Vieyra Clarity (U) CLEAR Normal CLEAR [facility] Comment on above: Performed By: #### U AMIC #### [facility] [address] [place] [address] Dr. Oneal Vieyra Color (U) YELLOW Normal YELLOW [facility] Comment on above: Performed By: #### U AMIC #### [facility] [address] [address] [address] Oneal Vieyra Crystals LM Nom (Urine sed) NONE SEEN Normal NONE SEEN [facility] Comment on above: Performed By: #### U AMIC #### [facility] [address] [address] [address] Oneal Vieyra Epithelial cells LM Ql (Urine sed) FEW Abnormal NONE SEEN /RARE [facility] Comment on above: Performed By: #### U AMIC #### [facility] [address] [address] [address] Oneal Vieyra Glucose Ql (U) >1000 Abnormal NEGATIVE [facility] Comment on above: Performed By: #### U AMIC #### [facility] [address] [address] [address] Oneal Vieyra Hemoglobin Ql (U) SMALL Abnormal NEGATIVE [facility] Comment on above: Performed By: #### U AMIC #### [facility] [address] [place] [address] Dr. Oneal Vieyra Ketones Ql (U) Negative Normal NEGATIVE [facility] Comment on above: Performed By: #### U AMIC #### [facility] [address] [address] [address] Oneal Vieyra LEUKOCYTES Negative Normal NEGATIVE [facility] Comment on above: Performed By: #### U AMIC #### [facility] [address] [place] [address] Dr. Oneal Vieyra MUCOUS NONE SEEN Normal NONE SEEN [facility] Comment on above: Performed By: #### U AMIC #### [facility] [address] [address] [address] Oneal Vieyra Nitrite Ql (U) Negative Normal NEGATIVE [facility] Comment on above: Performed By: #### U AMIC #### [facility] [address] [place] [address] Dr. Oneal Vieyra pH (U) 5.5 [pH] Normal 5-9 [facility] Comment on above: Performed By: #### U AMIC #### [facility] [address] [place] [address] Dr. Oneal Vieyra RBC 0-2 Normal 0-2 [facility] Comment on above: Performed By: #### U AMIC #### [facility] [address] [place] [address] Dr. Oneal Vieyra SPEC GRAVITY 1.020 Normal 1.005-<=1.0 25 [facility] Comment on above: Performed By: #### U AMIC #### [facility] [address] [place] [address] Dr. Oneal Vieyra UA PROTEIN Negative Normal NEGATIVE/ TRACE [facility] Comment on above: Performed By: #### U AMIC #### [facility] [address] [place] [address] Dr. Oneal Vieyra Urobilinogen Qn (U) 0.2 {Ashwini'U}/dL Normal 0.2 - 1.0 [facility] Comment on above: Performed By: #### U AMIC #### [facility] [address] [place] [address] Dr. Oneal Vieyra WBC NONE SEEN Normal NONE SEEN [facility] Comment on above: Performed By: #### U AMIC #### [facility] [address] [address] [address] Oneal Vieyra Office Visit (Cardiology)on 10-16-2021 [...] Instructions By signing my name below, I, Manuel Fan LPNibsathya, attest that this documentation has been prepared under the direction and in the presence of Dr. Rafael Washington DO. All medical record entries made by the Scribe were at my direction and personally dictated [...] for follow-up. She had inferior ST elevation [place] with primary revascularization of the RCA in [...] 16Oct2021 11:41AM Heart Rate65, L Brachial Artery Astpbdsy025, LUE, Sitting Gjltswqjf62, LUE, Sitting Height5 ft 1 in Rthuvo455 lb BMI Eefnfzzwmp51.04 kg/m2 BSA Calculated1.71 Tobacco Usea) Yes Patient encouraged to stop using tobacco productsYes Fall Screeningc) Not medically indicated Physical Exam Constitutional: alert and in no acute distress. Neck: neck is supple, symmetric, trachea midline, no masses and no thyromegaly . (more content not included)... Normal [employer] Tobacco Screening.on 022 Fall risk assessment c) Not medically indicated MP-[facility] [place] [employer] 250 DO Work Phone: Tobacco use status CP a) Yes [facility] [employer] [place] 250 DO Work Phone: Tobacco Screening. Yes MP-[facility] [employer] [place] 250 DO Work Phone: Basic Metabolic Panelon 02-26 Calcium [Mass/Vol] 8.6 mg/dL Normal 8.2-10.2 [facility] Comment on above: Performed By: #### C K, BMP, SCAN CBC, PTT, BNP, PT, TROP #### [facility] [address] [id number] [place] Chloride [Moles/Vol] 105 mmol/L Normal 95-114 [facility] Comment on above: Performed By: #### C K, BMP, SCAN CBC, PTT, BNP, PT, TROP #### [facility] [address] [place] [address] [place] CO2 [Moles/Vol] 21.2 mmol/L Low 22.0-30.0 [facility] Comment on above: Performed By: #### C K, BMP, SCAN CBC, PTT, BNP, PT, TROP #### [facility] [address] [id number] [place] Creatinine [Mass/Vol] 1.26 mg/dL High 0.44-1.03 [facility] Comment on above: Performed By: #### C K, BMP, SCAN CBC, PTT, BNP, PT, TROP #### [facility] [address] Creatinine Clr Calc Pharmacy 43.69 [facility] Comment on above: Result Comment: PERF ORMED BY: [place] [address] PATHOLOGIST TRANSFER AND LINE UP WORKER GIA SHAH M.D. Performed By: #### C K, BMP, SCAN CBC, PTT, BNP, PT, TROP #### [facility] [address] Estimated GFR ( [place] 53 [facility] Comment on above: Result Comment: GFR estimated reference range: According to KDOQI guidelines, <60 ml/min/1.73m2 is sufficient to diagnose a patient with chronic kidney disease. Performed By: #### C K, BMP, SCAN CBC, PTT, BNP, PT, TROP #### [facility] [address] Estimated GFR (Non- Am 44 [facility] Comment on above: Performed By: #### C K, BMP, SCAN CBC, PTT, BNP, PT, TROP #### [address] Glucose [Mass/Vol] 116 mg/dL High 70-100 [facility] Comment on above: Result Comment: [place] Glucose Reference Range is dependent on time and content of last meal. Glucose of more than 200 mg/dL in a nonstressed, ambulatory subject supports the diagnosis of Diabetes Mellitus. ADA recommended reference range Performed By: #### C K, BMP, SCAN CBC, PTT, BNP, PT, TROP #### [address] Potassium [Moles/Vol] 3.3 mmol/L Low 3.5-5.1 [facility] Comment on above: Performed By: #### C K, BMP, SCAN CBC, PTT, BNP, PT, TROP #### [facility] [address] Sodium [Moles/Vol] 139 mmol/L Normal 136-146 [facility] Comment on above: Performed By: #### C K, BMP, SCAN CBC, PTT, BNP, PT, TROP #### [address] Urea nitrogen [Mass/Vol] 20 mg/dL Normal 9-23 [facility] Comment on above: Performed By: #### C K, BMP, SCAN CBC, PTT, BNP, PT, TROP #### [address] Creatine Kinaseon 03-21-2021 CK [Catalytic activity/Vol] 87 U/L Normal 22-269 [facility] Comment on above: Performed By: #### C K, BMP, SCAN CBC, PTT, BNP, PT, TROP #### [address] Creatinine Kinase MBon 03-21 CK.MB [Mass/Vol] 1.6 ng/mL Normal 0.6-6.3 [facility] Comment on above: Performed By: #### C K, BMP, SCAN CBC, PTT, BNP, PT, TROP #### [address] CKMB Relative Index 1.8 % Normal 0.00-2.50 [facility] Comment on above: Performed By: #### C K, BMP, SCAN CBC, PTT, BNP, PT, TROP #### [address] ECG 12 lead ECGon 03-21-2021 ECG 12 lead ECG [facility] [place] [address] [place] [address] Electrocardiograph Report Signed Patient: Fausto Corrigan MR#: [id number] 0 : 1960 Acct:[id number] Age/Sex: 60 / F ADM Date: 03/19/21 Loc: Room: [address] [place] [address] Type: DIS IN Attending Dr: Kal Kellogg [...] compared with ECG of 20-MAR-2021 14:36, (Unconfirmed) [place] interval has decreased Confirmed by CHRISTA BAEZA DO ([id number]) on 03/21/2021 4:10:41 PM Referred By: Electronically Signed By:CHRISTA BAEZA DO Transcribed By: MUS Dictated By: Christa Baeza DO 03/21/21 0802 Signed By: 03/21/21 1610 Normal [facility] Scan and CBCon 03-21-2021 Basophils (Bld) [#/Vol] 0.1 10*3/uL Normal 0.0-0.2 [facility] Comment on above: Performed By: #### C K, BMP, SCAN CBC, PTT, BNP, PT, TROP #### [facility] [address] [place] [address] Basophils/100 WBC (Bld) 0.5 % Normal . [facility] Comment on above: Performed By: #### C K, BMP, SCAN CBC, PTT, BNP, PT, TROP #### [facility] [address] [place] [address] Eosinophils (Bld) [#/Vol] 0.3 10*3/uL Normal 0.0-0.45 [facility] Comment on above: Performed By: #### C K, BMP, SCAN CBC, PTT, BNP, PT, TROP #### [facility] [address] [place] [address] Eosinophils/100 WBC (Bld) 2.6 % Normal . [facility] Comment on above: Performed By: #### C K, BMP, SCAN CBC, PTT, BNP, PT, TROP #### [address] Erythrocyte distribution width (RBC) [Ratio] 13.3 % Normal 11.9-15.3 [facility] Comment on above: Performed By: #### C K, BMP, SCAN CBC, PTT, BNP, PT, TROP #### [address] Hematocrit (Bld) [Volume fraction] 39.1 % Normal 34.0-46.4 [facility] Comment on above: Performed By: #### C K, BMP, SCAN CBC, PTT, BNP, PT, TROP #### [address] Hemoglobin (Bld) [Mass/Vol] 13.2 g/dL Normal 11.8-15.4 [facility] Comment on above: Performed By: #### C K, BMP, SCAN CBC, PTT, BNP, PT, TROP #### [address] Lymphocytes (Bld) [#/Vol] 4.6 10*3/uL Normal 1.00-4.8 [facility] Comment on above: Performed By: #### C K, BMP, SCAN CBC, PTT, BNP, PT, TROP #### [address] Lymphocytes/100 WBC (Bld) 37.3 % Normal . [facility] Comment on above: Performed By: #### C K, BMP, SCAN CBC, PTT, BNP, PT, TROP #### [address] MCH (RBC) [Entitic mass] 31.1 pg Normal 24.7-34.3 [facility] Comment on above: Performed By: #### C K, BMP, SCAN CBC, PTT, BNP, PT, TROP #### [address] MCV (RBC) [Entitic vol] 92.2 fL Normal 80-100 [facility] Comment on above: Performed By: #### C K, BMP, SCAN CBC, PTT, BNP, PT, TROP #### [address] Mean Corpuscular HGB Conc 33.8 g/dL Normal 32.0-35.0 [facility] Comment on above: Performed By: #### C K, BMP, SCAN CBC, PTT, BNP, PT, TROP #### [address] Monocytes (Bld) [#/Vol] 1.0 10*3/uL High 0.0-0.8 [facility] Comment on above: Performed By: #### C K, BMP, SCAN CBC, PTT, BNP, PT, TROP #### [address] Monocytes/100 WBC (Bld) 8.0 % Normal . [facility] Comment on above: Performed By: #### C K, BMP, SCAN CBC, PTT, BNP, PT, TROP #### [address] Neutrophils (Bld) [#/Vol] 6.4 10*3/uL Normal 1.8-7.7 [facility] Comment on above: Performed By: #### C K, BMP, SCAN CBC, PTT, BNP, PT, TROP #### [address] Neutrophils/100 WBC (Bld) 51.6 % Normal . [facility] Comment on above: Performed By: #### C K, BMP, SCAN CBC, PTT, BNP, PT, TROP #### [address] Nucleated RBC/100 WBC (Bld) [Ratio] 0.2 % Normal 0-0.5 [facility] Comment on above: Performed By: #### C K, BMP, SCAN CBC, PTT, BNP, PT, TROP #### [address] Platelet Estimate Normal Normal Normal [facility] Comment on above: Performed By: #### C K, BMP, SCAN CBC, PTT, BNP, PT, TROP #### [address] Platelet mean volume (Bld) [Entitic vol] 9.3 fL Normal 6.3-10.7 [facility] Comment on above: Performed By: #### C K, BMP, SCAN CBC, PTT, BNP, PT, TROP #### [address] Platelet Morphology Normal Normal Normal [facility] Comment on above: Result Comment: PERF ORMED BY: [place] [address] PATHOLOGIST TRANSFER AND LINE UP WORKER GIA SHAH M.D. Performed By: #### C K, BMP, SCAN CBC, PTT, BNP, PT, TROP #### [address] Platelets (Bld) [#/Vol] 250 10*3/uL Normal 150-450 [facility] Comment on above: Performed By: #### C K, BMP, SCAN CBC, PTT, BNP, PT, TROP #### [address] RBC (Bld) [#/Vol] 4.24 10*6/uL Normal 3.60-5.00 [facility] Comment on above: Performed By: #### C K, BMP, SCAN CBC, PTT, BNP, PT, TROP #### [address] RBC morphology finding Nom (Bld) Normal Normal [facility] Comment on above: Performed By: #### C K, BMP, SCAN CBC, PTT, BNP, PT, TROP #### [address] WBC (Bld) [#/Vol] 12.3 10*3/uL High 4.5-11.0 [facility] Comment on above: Performed By: #### C K, BMP, SCAN CBC, PTT, BNP, PT, TROP #### [address] Troponin I(TnI)on 03-21-2021 Troponin I.cardiac [Mass/Vol] 3.93 ng/mL Off scale high 0-0.02 [facility] Comment on above: Result Comment: [place] Cut off value > or equal to 0.03 ng/mL in conjunction with clinical conditions of myocardial infarction. (www.escardio.org/guidelines) PERFORMED BY: [place] [address] PATHOLOGIST TRANSFER AND LINE UP WORKER GIA SHAH M.D. Performed By: #### C K, BMP, SCAN CBC, PTT, BNP, PT, TROP #### [address] Troponin I.cardiac [Mass/Vol] 3.98 ng/mL Off scale high 0-0.02 [facility] Comment on above: Result Comment: [place] Cut off value > or equal to 0.03 ng/mL in conjunction with clinical conditions of myocardial infarction. (www.escardio.org/guidelines) PERFORMED BY: [place] [address] PATHOLOGIST TRANSFER AND LINE UP WORKER GIA SHAH M.D. Performed By: #### C K, BMP, SCAN CBC, PTT, BNP, PT, TROP #### [address] Basic Metabolic Panelon 02-26 Calcium [Mass/Vol] 9.1 mg/dL Normal 8.2-10.2 [facility] Comment on above: Performed By: #### C K, BMP, SCAN CBC, PTT, BNP, PT, TROP #### [address] Chloride [Moles/Vol] 102 mmol/L Normal 95-114 [facility] Comment on above: Performed By: #### C K, BMP, SCAN CBC, PTT, BNP, PT, TROP #### [address] CO2 [Moles/Vol] 23.3 mmol/L Normal 22.0-30.0 [facility] Comment on above: Performed By: #### C K, BMP, SCAN CBC, PTT, BNP, PT, TROP #### [facility] [address] Creatinine [Mass/Vol] 1.15 mg/dL High 0.44-1.03 [facility] Comment on above: Performed By: #### C K, BMP, SCAN CBC, PTT, BNP, PT, TROP #### [facility] [address] [place] [address] [place] Creatinine Clr Calc Pharmacy 47.09 [facility] Comment on above: Performed By: #### C K, BMP, SCAN CBC, PTT, BNP, PT, TROP #### [facility] [address] Estimated GFR ( [place] 59 [facility] Comment on above: Result Comment: GFR estimated reference range: According to KDOQI guidelines, <60 ml/min/1.73m2 is sufficient to diagnose a patient with chronic kidney disease. Performed By: #### C K, BMP, SCAN CBC, PTT, BNP, PT, TROP #### [facility] [address] Estimated GFR (Non- Am 48 [facility] Comment on above: Performed By: #### C K, BMP, SCAN CBC, PTT, BNP, PT, TROP #### [address] Glucose [Mass/Vol] 161 mg/dL High 70-100 [facility] Comment on above: Result Comment: [place] om Glucose Reference Range is dependent on time and content of last meal. Glucose of more than 200 mg/dL in a nonstressed, ambulatory subject supports the diagnosis of Diabetes Mellitus. ADA recommended reference range Performed By: #### C K, BMP, SCAN CBC, PTT, BNP, PT, TROP #### [address] Potassium [Moles/Vol] 3.1 mmol/L Low 3.5-5.1 [facility] Comment on above: Performed By: #### C K, BMP, SCAN CBC, PTT, BNP, PT, TROP #### [address] Sodium [Moles/Vol] 136 mmol/L Normal 136-146 [facility] Comment on above: Performed By: #### C K, BMP, SCAN CBC, PTT, BNP, PT, TROP #### [facility] [address] Urea nitrogen [Mass/Vol] 26 mg/dL High 9-23 [facility] Comment on above: Performed By: #### C K, BMP, SCAN CBC, PTT, BNP, PT, TROP #### [facility] [address] Coagulation Profileon 2020 aPTT Coag (Bld) [Time] 37.6 s High 25.1-36.5 [facility] Comment on above: Result Comment: PERF ORMED BY: [place] [address] PATHOLOGIST TRANSFER AND LINE UP WORKER GIA SHAH M.D. Performed By: #### C K, BMP, SCAN CBC, PTT, BNP, PT, TROP #### [address] INR Coag (PPP) [Relative time] 1.1 {INR} Normal [facility] Comment on above: Result Comment: INR [...] SCAN CBC, PTT, BNP, PT, TROP #### [facility] [address] PT Coag (PPP) [Time] 12.2 s Normal 9.0-12.9 [facility] Comment on above: Performed By: #### C K, BMP, SCAN CBC, PTT, BNP, PT, TROP #### [address] Creatine Kinaseon 03-20-2021 CK [Catalytic activity/Vol] 91 U/L Normal -[address] [place] [address] Comment on above: Order Comment: NOTIF IEDNAZ Performed By: #### C K, BMP, SCAN CBC, PTT, BNP, PT, TROP #### [facility] [address] [place] [address] [place] CK [Catalytic activity/Vol] 108 U/L Normal [address] [place] [address] Comment on above: Performed By: #### C K, BMP, SCAN CBC, PTT, BNP, PT, TROP #### [facility] [address] [place] [address] [place] CK [Catalytic activity/Vol] 101 U/L Normal [address] [place] [address] Comment on above: Performed By: #### C K, BMP, SCAN CBC, PTT, BNP, PT, TROP #### [facility] [address] [place] [address] [place] Creatinine Kinase MBon 03-20 CK.MB [Mass/Vol] 1.9 ng/mL Normal 0.6-6.3 [facility] Comment on above: Order Comment: NOTIF IEDNAZ Performed By: #### C K, BMP, SCAN CBC, PTT, BNP, PT, TROP #### [facility] [address] [place] [address] [place] CKMB Relative Index 2.0 % Normal 0.00-2.50 [facility] Comment on above: Order Comment: NOTIF IEDNAZ Performed By: #### C K, BMP, SCAN CBC, PTT, BNP, PT, TROP #### [facility] [address] [place] [address] [place] CK.MB [Mass/Vol] 2.5 ng/mL Normal 0.6-6.3 [facility] Comment on above: Performed By: #### C K, BMP, SCAN CBC, PTT, BNP, PT, TROP #### [place] [id number] [place] CKMB Relative Index 2.3 % Normal 0.00-2.50 [facility] Comment on above: Performed By: #### C K, BMP, SCAN CBC, PTT, BNP, PT, TROP #### [facility] [address] CK.MB [Mass/Vol] 3.1 ng/mL Normal 0.6-6.3 [facility] Comment on above: Performed By: #### C K, BMP, SCAN CBC, PTT, BNP, PT, TROP #### [facility] [address] CKMB Relative Index 3.0 % High 0.00-2.50 [facility] Comment on above: Performed By: #### C K, BMP, SCAN CBC, PTT, BNP, PT, TROP #### [facility] [address] ECG 12 lead ECGon 03-20-2021 ECG 12 lead ECG [facility] [place] [address] [place] [address] Electrocardiograph Report Signed Patient: Fausto Corrigan MR#: [id number] 0 : 1960 Acct:[id number] Age/Sex: 60 / F ADM Date: 03/19/21 Loc: Room: [address] [place] [address] Type: DIS IN Attending Dr: Kal Kellogg [...] 03/20/21 1436 Signed By: 03/22/21 1705 Normal [facility] Magnesiumon 03-20-2021 Magnesium [Mass/Vol] 2.0 mg/dL Normal 1.6-2.6 [facility] Comment on above: Result Comment: PERF ORMED BY: [place] [address] PATHOLOGIST TRANSFER AND LINE UP WORKER GIA SHAH M.D. Performed By: #### C K, BMP, SCAN CBC, PTT, BNP, PT, TROP #### [address] Partial Thromboplastin Timeo n 03-20-2021 aPTT Coag (Bld) [Time] 44.7 s High 25.1-36.5 [facility] Comment on above: Order Comment: List the anticoagulant: HEPARIN, UNFRACTIONATED Result Comment: PERF ORMED BY: [place] [address] PATHOLOGIST TRANSFER AND LINE UP WORKER GIA SHAH M.D. Performed By: #### C K, BMP, SCAN CBC, PTT, BNP, PT, TROP #### [address] Scan and CBCon 03-20-2021 Basophils (Bld) [#/Vol] 0.1 10*3/uL Normal 0.0-0.2 [facility] Comment on above: Performed By: #### C K, BMP, SCAN CBC, PTT, BNP, PT, TROP #### [address] Basophils/100 WBC (Bld) 0.6 % Normal . [facility] Comment on above: Performed By: #### C K, BMP, SCAN CBC, PTT, BNP, PT, TROP #### [address] Eosinophils (Bld) [#/Vol] 0.3 10*3/uL Normal 0.0-0.45 [facility] Comment on above: Performed By: #### C K, BMP, SCAN CBC, PTT, BNP, PT, TROP #### [place] [id number] [place] Eosinophils/100 WBC (Bld) 1.8 % Normal . [facility] Comment on above: Performed By: #### C K, BMP, SCAN CBC, PTT, BNP, PT, TROP #### [address] Erythrocyte distribution width (RBC) [Ratio] 13.2 % Normal 11.9-15.3 [facility] Comment on above: Performed By: #### C K, BMP, SCAN CBC, PTT, BNP, PT, TROP #### [address] Hematocrit (Bld) [Volume fraction] 42.5 % Normal 34.0-46.4 [facility] Comment on above: Performed By: #### C K, BMP, SCAN CBC, PTT, BNP, PT, TROP #### [address] Hemoglobin (Bld) [Mass/Vol] 14.5 g/dL Normal 11.8-15.4 [facility] Comment on above: Performed By: #### C K, BMP, SCAN CBC, PTT, BNP, PT, TROP #### [address] Lymphocytes (Bld) [#/Vol] 5.2 10*3/uL High 1.00-4.8 [facility] Comment on above: Performed By: #### C K, BMP, SCAN CBC, PTT, BNP, PT, TROP #### [address] Lymphocytes/100 WBC (Bld) 31.5 % Normal . [facility] Comment on above: Performed By: #### C K, BMP, SCAN CBC, PTT, BNP, PT, TROP #### [address] MCH (RBC) [Entitic mass] 31.1 pg Normal 24.7-34.3 [facility] Comment on above: Performed By: #### C K, BMP, SCAN CBC, PTT, BNP, PT, TROP #### [address] MCV (RBC) [Entitic vol] 90.8 fL Normal 80-100 [facility] Comment on above: Performed By: #### C K, BMP, SCAN CBC, PTT, BNP, PT, TROP #### [address] Mean Corpuscular HGB Conc 34.2 g/dL Normal 32.0-35.0 [facility] Comment on above: Performed By: #### C K, BMP, SCAN CBC, PTT, BNP, PT, TROP #### [address] Monocytes (Bld) [#/Vol] 1.1 10*3/uL High 0.0-0.8 [facility] Comment on above: Performed By: #### C K, BMP, SCAN CBC, PTT, BNP, PT, TROP #### [address] Monocytes/100 WBC (Bld) 6.7 % Normal . [facility] Comment on above: Performed By: #### C K, BMP, SCAN CBC, PTT, BNP, PT, TROP #### [address] Neutrophils (Bld) [#/Vol] 9.8 10*3/uL High 1.8-7.7 [facility] Comment on above: Performed By: #### C K, BMP, SCAN CBC, PTT, BNP, PT, TROP #### [address] Neutrophils/100 WBC (Bld) 59.4 % Normal . [facility] Comment on above: Performed By: #### C K, BMP, SCAN CBC, PTT, BNP, PT, TROP #### [place] [id number] [place] Nucleated RBC/100 WBC (Bld) [Ratio] 0.2 % Normal 0-0.5 [facility] Comment on above: Performed By: #### C K, BMP, SCAN CBC, PTT, BNP, PT, TROP #### [place] [address] Platelet Estimate Normal Normal Normal [facility] Comment on above: Performed By: #### C K, BMP, SCAN CBC, PTT, BNP, PT, TROP #### [address] Platelet mean volume (Bld) [Entitic vol] 9.4 fL Normal 6.3-10.7 [facility] Comment on above: Performed By: #### C K, BMP, SCAN CBC, PTT, BNP, PT, TROP #### [address] Platelet Morphology Normal Normal Normal [facility] Comment on above: Result Comment: PERF ORMED BY: [place] [address] PATHOLOGIST TRANSFER AND LINE UP WORKER GIA SHAH M.D. Performed By: #### C K, BMP, SCAN CBC, PTT, BNP, PT, TROP #### [address] Platelets (Bld) [#/Vol] 305 10*3/uL Normal 150-450 [facility] Comment on above: Performed By: #### C K, BMP, SCAN CBC, PTT, BNP, PT, TROP #### [address] RBC (Bld) [#/Vol] 4.68 10*6/uL Normal 3.60-5.00 [facility] Comment on above: Performed By: #### C K, BMP, SCAN CBC, PTT, BNP, PT, TROP #### [address] RBC morphology finding Nom (Bld) Normal Normal [facility] Comment on above: Performed By: #### C K, BMP, SCAN CBC, PTT, BNP, PT, TROP #### [address] WBC (Bld) [#/Vol] 16.5 10*3/uL High 4.5-11.0 [facility] Comment on above: Performed By: #### C K, BMP, SCAN CBC, PTT, BNP, PT, TROP #### [facility] [address] Troponin I(TnI)on 03-20-2021 Troponin I.cardiac [Mass/Vol] 4.57 ng/mL Off scale high 0-0.02 [facility] Comment on above: Order Comment: NOTIF IED,KAH,1455 Result Comment: [place] Cut off value > or equal to 0.03 ng/mL in conjunction with clinical conditions of myocardial infarction. (www.escardio.org/guidelines) PERFORMED BY: [place] [address] PATHOLOGIST TRANSFER AND LINE UP WORKER GIA SHAH M.D. Performed By: #### C K, BMP, SCAN CBC, PTT, BNP, PT, TROP #### [place] [id number] [place] Troponin I.cardiac [Mass/Vol] 5.16 ng/mL Off scale high 0-0.02 [facility] Comment on above: Result Comment: [place] Cut off value > or equal to 0.03 ng/mL in conjunction with clinical conditions of myocardial infarction. (www.escardio.org/guidelines) PERFORMED BY: [place] [address] PATHOLOGIST TRANSFER AND LINE UP WORKER GIA SHAH M.D. Performed By: #### C K, BMP, SCAN CBC, PTT, BNP, PT, TROP #### [place] [address] [place] Troponin I.cardiac [Mass/Vol] 4.93 ng/mL Off scale high 0-0.02 [facility] Comment on above: Result Comment: [place] Cut off value > or equal to 0.03 ng/mL in conjunction with clinical conditions of myocardial infarction. (www.escardio.org/guidelines) PERFORMED BY: [place] [address] PATHOLOGIST TRANSFER AND LINE UP WORKER GIA SHAH M.D. Performed By: #### C K, BMP, SCAN CBC, PTT, BNP, PT, TROP #### [facility] [address] [place], [place] [id number] [facility] XR chest 1V portableon 03-20 XR chest 1V portable [facility] Main [place] [address] [place], [place] [id number] XRay Report Signed Patient: Fausto Corrigan MR#: [id number] 0 : 1960 Acct:[id number] Age/Sex: 60 / F ADM Date: 03/19/21 Loc: Room: [address] [place] [address] Type: ADM IN Attending Dr: Kal Kellogg [...] Robel Roland M.D.03/20/2021 8:58 AM Dictation Location: [place] [address] Transcribed By: [facility] 03/20/21 0858 Dictated By: Robel Roland DO 03/20/21 0857 Signed By: 03/20/21 0858 Normal [facility] B-Type Natriuretic Peptideon 03-19-2021 Natriuretic peptide B (Bld) [Mass/Vol] 117.0 pg/mL High 5-100 [facility] Comment on above: Result Comment: PERF ORMED BY: [place] [address] PATHOLOGIST TRANSFER AND LINE UP WORKER GIA SHAH M.D. Performed By: #### C K, BMP, SCAN CBC, PTT, BNP, PT, TROP #### [facility] [address] [place], [place] [id number] [facility] Basic Metabolic Panelon 02-26 Calcium [Mass/Vol] 9.9 mg/dL Normal 8.2-10.2 [facility] Comment on above: Performed By: #### C K, BMP, SCAN CBC, PTT, BNP, PT, TROP #### [address] Chloride [Moles/Vol] 95 mmol/L Normal 95-114 [facility] Comment on above: Performed By: #### C K, BMP, SCAN CBC, PTT, BNP, PT, TROP #### [address] CO2 [Moles/Vol] 28.2 mmol/L Normal 22.0-30.0 [facility] Comment on above: Performed By: #### C K, BMP, SCAN CBC, PTT, BNP, PT, TROP #### [address] Creatinine [Mass/Vol] 1.41 mg/dL High 0.44-1.03 [facility] Comment on above: Performed By: #### C K, BMP, SCAN CBC, PTT, BNP, PT, TROP #### [address] Creatinine Clr Calc Pharmacy 38.52 [facility] Comment on above: Result Comment: PERF ORMED BY: [place] [address] PATHOLOGIST TRANSFER AND LINE UP WORKER GIA SHAH M.D. Performed By: #### C K, BMP, SCAN CBC, PTT, BNP, PT, TROP #### [address] Estimated GFR ( [place] 46 [facility] Comment on above: Result Comment: GFR estimated reference range: According to KDOQI guidelines, <60 ml/min/1.73m2 is sufficient to diagnose a patient with chronic kidney disease. Performed By: #### C K, BMP, SCAN CBC, PTT, BNP, PT, TROP #### [address] Estimated GFR (Non- Am 38 [facility] Comment on above: Performed By: #### C K, BMP, SCAN CBC, PTT, BNP, PT, TROP #### [facility] [address] Glucose [Mass/Vol] 143 mg/dL High 70-100 [facility] Comment on above: Result Comment: [place] Glucose Reference Range is dependent on time and content of last meal. Glucose of more than 200 mg/dL in a nonstressed, ambulatory subject supports the diagnosis of Diabetes Mellitus. ADA recommended reference range Performed By: #### C K, BMP, SCAN CBC, PTT, BNP, PT, TROP #### [facility] [address] Potassium [Moles/Vol] 3.4 mmol/L Low 3.5-5.1 [facility] Comment on above: Performed By: #### C K, BMP, SCAN CBC, PTT, BNP, PT, TROP #### [address] Sodium [Moles/Vol] 139 mmol/L Normal 136-146 [facility] Comment on above: Performed By: #### C K, BMP, SCAN CBC, PTT, BNP, PT, TROP #### [facility] [address] Urea nitrogen [Mass/Vol] 28 mg/dL High 9-23 [facility] Comment on above: Performed By: #### C K, BMP, SCAN CBC, PTT, BNP, PT, TROP #### [address] COVID-19 Antigenon 1 COVID-19 Antigen Healthcare [...] its performance Kristan Disclaimer characteristic determined by [employer] and Kristan Disclaimer validated at [facility]. This Kristan Disclaimer test has not [...] Emergency Use Authorization for Coronavirus Kristan Disclaimer iseas during the Public Health Emergency) Kristan Disclaimer [...] is terminated or revoked sooner. PERFORMED BY: [facility] [address] [facility] [place] [id number] PATHOLOGIST TRANSFER AND LINE UP WORKER GIA SHAH M.D. Normal [facility] Comment on above: Performed By: #### C OVID 19 FR, SOFIANEG, COVID-19 KRISTAN #### [facility] [address] [place] [address] [facility] COVID-19 [facility] 03-19-2021 SARS-CoV-2 (COVID-19) RNA SHERRIE+probe Ql (Unsp spec) Negative Normal Negative [facility] Comment on above: Order Comment: Healt hcare Worker?: N Result Comment: Testing for SARS-CoV-2 by RT-PCR This test was developed and its performance characteristics determined by [employer]) and validated at the [facility]. This test has not been FDA [...] is terminated or revoked sooner. PERFORMED BY: [facility] [address] [facility] [place] [address] PATHOLOGIST TRANSFER AND LINE UP WORKER GIA SHAH M.D. Performed By: #### C OVID 19 [facility], SOFIANEG, COVID-19 KRISTAN #### [facility] [address] [place] [id number] [place] Creatine Kinaseon 03-19-2021 CK [Catalytic activity/Vol] 123 U/L Normal 22-269 [facility] Comment on above: Performed By: #### C K, BMP, SCAN CBC, PTT, BNP, PT, TROP #### [facility] [address] [place] [id number] [place] ECG 12 lead ECGon 03-19-2021 ECG 12 lead ECG [place] [address] Electrocardiograph Report Signed Patient: Fausto Corrigan MR#: [id number] 0 : 1960 Acct:[id number] Age/Sex: 60 / F ADM Date: 03/19/21 Loc: Room: [address] [place] [address] Type: ADM IN Attending Dr: Kal Kellogg [...] rhythm Inferior infarct , possibly acute ACUTE WI / STEMI Consider right ventricular involvement in acute inferior infarct Abnormal ECG When compared with ECG of 19-MAR-2021 20:15, (Unconfirmed) No significant change was found Confirmed by LAYNE SIMON DO ([id number]) on 03/20/2021 2:13:27 AM Referred By: Electronically Signed By:LAYNE SIMON DO Transcribed By: MUS Dictated By: Layne Simon DO 03/19/212021 Signed By: 03/20/21 0213 Normal [facility] ECG 12 lead ECG [facility] Main [place] [id number] Electrocardiograph Report Signed Patient: Fausto Corrigan MR#: [id number] 0 : 1960 Acct:[id number] Age/Sex: 60 / F ADM Date: 03/19/21 Loc: Room: [address] [place] [address] Type: ADM IN Attending Dr: Kal Kellogg [...] consider inferior injury or acute infarct ACUTE WI / STEMI Consider right ventricular involvement in acute inferior infarct Abnormal ECG No previous ECGs available Confirmed by LAYNE SIMON DO ([id number]) on 03/20/2021 2:13:27 AM Referred By: Electronically Signed By:LAYNE SIMON DO Transcribed By: MUS Dictated By: Layne Simon DO 03/19/212014 Signed By: 03/20/21 0213 [facility] Partial Thromboplastin Timeo n 03-19-2021 aPTT Coag (Bld) [Time] 29.7 s Normal 25.1-36.5 [facility] Comment on above: Result Comment: PERF ORMED BY: [place] [address] PATHOLOGIST TRANSFER AND LINE UP WORKER GIA SHAH M.D. Performed By: #### C K, BMP, SCAN CBC, PTT, BNP, PT, TROP #### [facility] [address] Prothrombin Time INRon 03-19 INR Coag (PPP) [Relative time] 1.1 {INR} Normal [facility] Comment on above: Result Comment: INR [...] SCAN CBC, PTT, BNP, PT, TROP #### [address] PT Coag (PPP) [Time] 12.2 s Normal 9.0-12.9 [facility] Comment on above: Performed By: #### C K, BMP, SCAN CBC, PTT, BNP, PT, TROP #### [address] Scan and CBCon 03-19-2021 Basophils (Bld) [#/Vol] 0.2 10*3/uL Normal 0.0-0.2 [facility] Comment on above: Performed By: #### C K, BMP, SCAN CBC, PTT, BNP, PT, TROP #### [address] Basophils/100 WBC (Bld) 0.9 % Normal . [facility] Comment on above: Performed By: #### C K, BMP, SCAN CBC, PTT, BNP, PT, TROP #### [address] Eosinophils (Bld) [#/Vol] 0.4 10*3/uL Normal 0.0-0.45 [facility] Comment on above: Performed By: #### C K, BMP, SCAN CBC, PTT, BNP, PT, TROP #### [address] Eosinophils/100 WBC (Bld) 2.1 % Normal . [facility] Comment on above: Performed By: #### C K, BMP, SCAN CBC, PTT, BNP, PT, TROP #### [address] Erythrocyte distribution width (RBC) [Ratio] 13.3 % Normal 11.9-15.3 [facility] Comment on above: Performed By: #### C K, BMP, SCAN CBC, PTT, BNP, PT, TROP #### [address] Hematocrit (Bld) [Volume fraction] 46.2 % Normal 34.0-46.4 [facility] Comment on above: Performed By: #### C K, BMP, SCAN CBC, PTT, BNP, PT, TROP #### [address] Hemoglobin (Bld) [Mass/Vol] 15.7 g/dL High 11.8-15.4 [facility] Comment on above: Performed By: #### C K, BMP, SCAN CBC, PTT, BNP, PT, TROP #### [address] Lymphocytes (Bld) [#/Vol] 5.0 10*3/uL High 1.00-4.8 [facility] Comment on above: Performed By: #### C K, BMP, SCAN CBC, PTT, BNP, PT, TROP #### [address] Lymphocytes/100 WBC (Bld) 27.2 % Normal . [facility] Comment on above: Performed By: #### C K, BMP, SCAN CBC, PTT, BNP, PT, TROP #### [address] MCH (RBC) [Entitic mass] 31.2 pg Normal 24.7-34.3 [facility] Comment on above: Performed By: #### C K, BMP, SCAN CBC, PTT, BNP, PT, TROP #### [address] MCV (RBC) [Entitic vol] 91.8 fL Normal 80-100 [facility] Comment on above: Performed By: #### C K, BMP, SCAN CBC, PTT, BNP, PT, TROP #### [address] Mean Corpuscular HGB Conc 34.0 g/dL Normal 32.0-35.0 [facility] Comment on above: Performed By: #### C K, BMP, SCAN CBC, PTT, BNP, PT, TROP #### [facility] [address] Monocytes (Bld) [#/Vol] 1.4 10*3/uL High 0.0-0.8 [facility] Comment on above: Performed By: #### C K, BMP, SCAN CBC, PTT, BNP, PT, TROP #### [address] Monocytes/100 WBC (Bld) 7.5 % Normal . [facility] Comment on above: Performed By: #### C K, BMP, SCAN CBC, PTT, BNP, PT, TROP #### [address] Neutrophils (Bld) [#/Vol] 11.5 10*3/uL High 1.8-7.7 [facility] Comment on above: Performed By: #### C K, BMP, SCAN CBC, PTT, BNP, PT, TROP #### [address] Neutrophils/100 WBC (Bld) 62.3 % Normal . [facility] Comment on above: Performed By: #### C K, BMP, SCAN CBC, PTT, BNP, PT, TROP #### [address] Nucleated RBC/100 WBC (Bld) [Ratio] 0.2 % Normal 0-0.5 [facility] Comment on above: Performed By: #### C K, BMP, SCAN CBC, PTT, BNP, PT, TROP #### [address] Platelet Estimate Normal Normal Normal [facility] Comment on above: Performed By: #### C K, BMP, SCAN CBC, PTT, BNP, PT, TROP #### [address] Platelet mean volume (Bld) [Entitic vol] 9.6 fL Normal 6.3-10.7 [facility] Comment on above: Performed By: #### C K, BMP, SCAN CBC, PTT, BNP, PT, TROP #### [address] Platelet Morphology Normal Normal Normal [facility] Comment on above: Result Comment: PERF ORMED BY: [place] [address] PATHOLOGIST TRANSFER AND LINE UP WORKER GIA SHAH M.D. Performed By: #### C K, BMP, SCAN CBC, PTT, BNP, PT, TROP #### [address] Platelets (Bld) [#/Vol] 313 10*3/uL Normal 150-450 [facility] Comment on above: Performed By: #### C K, BMP, SCAN CBC, PTT, BNP, PT, TROP #### [address] RBC (Bld) [#/Vol] 5.03 10*6/uL High 3.60-5.00 [facility] Comment on above: Performed By: #### C K, BMP, SCAN CBC, PTT, BNP, PT, TROP #### [address] RBC morphology finding Nom (Bld) Normal Normal [facility] Comment on above: Performed By: #### C K, BMP, SCAN CBC, PTT, BNP, PT, TROP #### [address] WBC (Bld) [#/Vol] 18.4 10*3/uL High 4.5-11.0 [facility] Comment on above: Performed By: #### C K, BMP, SCAN CBC, PTT, BNP, PT, TROP #### [address] Kristan Ag Negativeon 03-19-20 21 Kristan Ag Negative Negative Normal Negative [facility] Comment on above: Result Comment: This is a duplicate Kristan SARS Antigen ([place]) result to be used for statistical tracking purpose only. PERFORMED BY: [place] [address] PATHOLOGIST TRANSFER AND LINE UP WORKER GIA SHAH M.D. Performed By: #### C OVID 19 [facility], [place], COVID-19 KRISTAN #### [facility] [address] [place] [id number] [facility] Troponin I(TnI)on 03-19-2021 Troponin I.cardiac [Mass/Vol] 4.25 ng/mL Off scale high 0-0.02 [facility] Comment on above: Result Comment: Crit ical value result called at 2209 on 03/19/21 [place] Cut off value > or equal to 0.03 ng/mL in conjunction with clinical conditions of myocardial infarction. (www.escardio.org/guidelines) PERFORMED BY: [facility] [address] [place] [address] PATHOLOGIST TRANSFER AND LINE UP WORKER GIA SHAH M.D. Performed By: #### C K, BMP, SCAN CBC, PTT, BNP, PT, TROP #### [facility] [address] [place] [id number] [facility] Gastroenterology Office/Clin ic Noteon 02-26-2021 Gastroenterology Office/Clinic Note Chief Complaint Sick call - Diarrhea, sharp pains in intestines HPI Staff This is a 60 year old female who presents today for a sick call for diarrhea and sharp pain in intestines. History of Present Illness The patient or their guardian verbally consented to allow Yolande Rubio to record this visit. The 60-year-old white [...] after patient consented to recording for virtual clinical appeals specialist and provider reviewed before signing. ARMEN: Lianne Jensen Follow-up With When Contact Information ROM RENNER, Gladys, JOSE, LASHAY Within 2 weeks [facility] [address] [place] [address]- Additional Instructions: Problem List/Past Medical History Ongoing [...] Primary malignant neoplasm of prostate: Father. Normal [facility] Comment on above: Result Comment: Elec tronically Signed By: Lianne Jensen\.br\Date and Time Signed: 02/25/21 15:53 EDT\.br\Electronically Co-Signed By: Gladys CUETO MD\.br\Date and Time Co-Signed: 02/26/21 12:32 EDT Ambulatory Clinical Summaryo n 02-25-2021 Ambulatory Clinical Summary {[id number]}CD:[id number] [facility] Coding Summary.on 07-15-2020 Coding Summary. CODING DATE: 020 FINAL [facility] STATUS: Home (Routine DC) PAYOR: Medicaid ADMIT [...] CphT Date Saved: 07/15/2020 12:25 pm Normal [facility] Priority Order-Isra 2019 Priority Order-STAT Comment Invalid Interpretation Code [facility] Comment on above: Result Comment: Rece ived Performed at: [facility] [address] [place], [place] [id number] MD Fredy Larson Performed By: #### S ARS-CoV-2, SHERRIE, [id number] #### [facility] [address] [place] [address] SARS-CoV-2, NAAon 06-25-2020 SARS-CoV-2 (COVID-19) RNA SHERRIE+probe Ql (Resp) Not detected Invalid Interpretation Code Not Detected [facility] Comment on above: Result Comment: This nucleic acid amplification test was developed and its performance characteristics determined by [employer]. Nucleic acid amplification tests include PCR and [...] detected) result in this assay. Performed at: [facility] [address] [facility] [place] [id number] MD Fredy Larson Performed By: #### S ARS-CoV-2, SHERRIE, [id number] #### [facility] [address] [place] [address] [place] 06-20-2020 Consent [id number]:127 Normal [facility] Pre-Certification Formon Pre-Certification Form [id number]#1.00CD:127 Normal [facility] Physician Orderon 06-19-2020 Physician Order [id number]#1.00CD:127 Normal [facility] Ambulatory Clinical Summaryo n 06-17-2020 Ambulatory Clinical Summary {[id number]}CD:[id number] 68 Normal [facility] Gastroenterology Office/Clin ic Noteon 06-17-2020 Gastroenterology Office/Clinic [...] BID, # 60 tab(s), Refills(s) 11, Pharmacy: [facility], 154, cm, 06/17/20 12:27:00 EDT, Height/Length Dosing, 71.9, kg, 06/17/20 12:27:00 EDT, Weight Dosing Follow-up With When Contact Information Gladys CUETO MD Within 2 weeks [facility] [address] [place] [address]- Additional Instructions: Patient Education Heartburn Problem List/Past [...] Primary malignant neoplasm of prostate: Father. Normal [facility] Comment on above: Result Comment: Elec tronically [...] caregiver may tell you to use certain tqlf-ehx-smeqell medicines (antacids, acid reducers) for mild heartburn. [...] Spicy foods. ? Garlic and onions. ? Yancey fruits, including oranges, grapefruit, jacqui, and limes. [...] Document Reviewed: 02/28/2012 ExitCare? Patient Information ?2013 [employer], [employer]. [facility] Formson 06-12-2020 Forms [id number]#1.00CD:127 [facility] CNOVon 03-17-2018 CNOV Office Visit (AGHWW1) ----FAUSTO CORRIGAN ([id number]) 1960 FDate Time Provider Department03/17/18 1:30 PM THOMAS DELGADILLO [...] 3-4 daily Alcohol use: No Drug use: John OF [employer] noteMSK: + as noted in HPI.Physical Examination:On [...] Protective sensation intact at all pedalsites via Esmond Gabrielle 5.07 monofilament bilateral. Proprioception intactat the hallux bilateral. No clonus noted. Babinski reflex not elicitedbilateral.Derm: Skin texture and turgor within normal limits. Toenails normal inappearance. Webspaces 1-4 clean, dry, intact bilateral. No rashes,subcutaneous nodules, or open lesions noted. No ecchymosis. No fractureblisters. No cellulitis, no lymphangitis, no SSI. 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]Order(s):XR FOOT GENERAL 3V AP/LAT/OBL RT [[id number]] Order #: [id number] CONSULT TO ORTHOTIC/PROSTHETIC [[id number]] Order #: [id number]: 1Prescriptions as of 03/17/2018 Sig: ALBUTEROL SULFATE [...] (around 05/17/2018).Follow-up and Disposition History RecordedEncounter Number: [id number] Status:Closed by THOMAS DELGADILLO DPM on 04/17/18 [facility] PROGRESSon 03-17-2018 Protein HNO ID: [id number] thor: Thomas Jiang: (none)Author Type: PhysicianType: Progress [...] 3-4 daily Alcohol use: No Drug use: John OF [employer] noteMSK: + as noted in HPI.Physical Examination:On General Observation: Patient is a pleasant, cooperative, well wosksfrwc76 year oldadult female. The patient is alert [...] Protective sensation intact at allpedal sites via Esmond Gabrielle 5.07 monofilament bilateral.Proprioception intact at the hallux bilateral. No clonus noted. Babinskireflex not elicited bilateral.Derm: Skin texture and turgor within normal limits. Toenails normal inappearance. Webspaces 1-4 clean, dry, intact bilateral. No rashes,subcutaneous nodules, or open lesions noted. No ecchymosis. No fractureblisters. No cellulitis, no lymphangitis, no SSI. No hyperkeratotictissue.Musculo skeletal/Orthopaedic:Positiv e pain noted to palpation along the peroneal [...] anticipated course of treatment.Rx for SAAFO from [facility] was given, patient to obtain and use to see [facility] pain Follow up in 2 monthsYosi Yu DPM PGY2I personally saw and evaluated the patient. I reviewed the resident'snote. I agree with the resident's assessment and plan unless otherwisenoted.Thomas Delgadillo DPM, FACFAS Normal [facility] Migue 09-01-2017 CNPN Telephone (PULMMN) ----FAUSTO CORRIGAN ([id number]) 1960 [facility] Time Provider Xjfdtvryny66/6/17 AIMEE HERNANDEZ During your visit today, we recorded the following information about you:Krista Wojciech 09/01/2017 10:30 AM SignedPatient called to tell [...] - AnaphylaxisDate Reviewed: 07/26/2017Reviewed by: Sis Kirkpatrick [facility] - Fully AssessedReason for Visit: Insurance Authorization [[id number]] Cmt: pt called requesting prior auth for [...] Breath. Status:Closed by KRISTA LAGOS on 09/01/17 [facility] 08-18-2017 CNCO Letter TextNovember 2016Fausto Corrigan[address] [address]Qwrq Ms. Fausto Corrigan,It was a pleasure to see you in the Department of Pulmonary Medicine on07/26/2017.Attached please find a copy of your Visit Summary.I appreciate having the opportunity to see you. If I can be of furtherassistance to you, or if you have any questions regarding this report, pleasefeel free to contact my office.Sincerely,NATE Chaparro/Aidenment: Visit Summary Normal [facility] CBCon 07-26-2017 Erythrocyte distribution width Auto Ratio (RBC) 12.9 % Normal 11.5-15.0 [facility] Comment on above: Performed By: #### C BC, CMP ####[facility], [place] [phone] Erythrocytes (RBC) 10*6/uL Normal <0.01 [facility] Comment on above: Performed By: #### C BC, CMP ####[facility], [place] [phone] Erythrocytes (RBC) 5.08 10*6/uL Normal 3.90-5.20 [facility] Comment on above: Performed By: #### C BC, CMP ####[facility] [address]CW[address], [place] [phone] Hematocrit (HCT) 47.7 % High 36.0-46.0 [facility] Comment on above: Performed By: #### C BC, CMP ####[facility] [address]CWilder, [place] [phone] Hemoglobin mass conc (Bld) 15.3 g/dL Normal 11.5-15.5 [facility] Comment on above: Performed By: #### C BC, CMP ####[facility], [place] [phone] MCH 30.1 pG Normal 26.0-34.0 [facility] Comment on above: Performed By: #### C MAYANK, CMP ####[facility], [place] [phone] MCHC mass conc (RBC) 32.1 g/dL Normal 30.5-36.0 [facility] Comment on above: Performed By: #### C MAYANK, CMP ####[place] [address], [place] [phone] MCV 93.9 fL Normal 80.0-100.0 [facility] Comment on above: Performed By: #### C MAYANK, CMP ####[facility], [place] [phone] Platelet mean volume (PMV) 11.9 fL Normal 9.0-12.7 [facility] Comment on above: Performed By: #### C MAYANK, CMP ####[address] [place] [phone] Platelets 283 10*3/uL Normal 150-400 [facility] Comment on above: Performed By: #### C MAYANK, CMP ####[place] [address] [place] [phone] WBC (Leukocytes) 13.36 10*3/uL High 3.70-11.[address] [facility] Comment on above: Performed By: #### Andrzej TALLEY, CMP ####[facility] [place] [address] Av[place] [phone] CNOVon 07-26-2017 CNOV Office Visit (PSSCMN) ----FAUSTO CORRIGAN ([id number]) 1960 FDate Time Provider Ibvjkvxdlg20/30/17 3:30 PM [facility] PSSCMN During your visit today, we recorded the following information about you: Pulse Blood pressure Weight Height 75/minute 120/69 73 kg 1.52 Shannan Sosa DO 07/26/2017 5:18 PM SignedANESTHESIA PRE-OPERATIVE ASSESSMENT (PACE)SERVICE DATE: 07/26/2017SERVICE TIME: 4:56 PMASSESSMENT ANDamp; PLAN:Fausto Corrigan is a 57 year old female scheduled for sigmoid colectomy w/ BLADE BONER perSurgery Request Case in MAIN on 08/03/17.PMH:COPD [...] lb 15 oz) SpO2 96% BMI 31.6 kg/r4Ufots signs completed by: IMPACTWeight acquired: per HANDamp;P. [...] 4:26 PM PAGER/CONTACT #:Referring Provider: ESEQUIEL THOMAS [[id number]]Allergies As of Date: 07/26/2017 Noted Allergy ReactionSULFA (SULFONAMIDE ANTIBIOTICS) 06/07/2017 4 - Hives 10 - AnaphylaxisDate Reviewed: 07/26/2017Reviewed by: Sis [facility] - Fully AssessedPrimary Visit Diagnosis:Pre-op evaluation [Z01.818]Prescriptions [...] Cosign Required by: James Vogel III[] Normal [facility] CNOV Office Visit (IMPAMN) ----FAUSTO CORRIGAN ([id number]) 1960 FDate Time Provider Qrvjdshrvk17/30/17 2:15 PM RIVERA PATRICIA) IMPAMN During your visit today, we recorded the following information about you: Temperature Pulse Blood pressure Weight 97.6 degrees 75/minute 120/69 73 kg Height 1.524 Alejandra Patricia MD 07/26/2017 8:42 PM AddendumHISTORY AND PHYSICAL EXAMINATION (IMPACT)SERVICE DATE: 07/25/2017SERVICE TIME: 1:49 PMPRIMARY CARE PHYSICIAN: Yamileth PcpCHIEF COMPLAINT/HISTORY OF PRESENT ILLNESS:Ms. Corrigan is [...] self-reported physical activity.Significant Anesthesia Considerations: None. PAST MEDICAL/SURGICAL/FAMILY/SOCI AL HISTORYPAST MEDICAL HISTORYDiagnosis Date- COPD (chronic obstructive [...] 3-4 daily Alcohol use: No Drug use: NoMEDICATIONS/ALLERGIESCurre nt Outpatient Prescriptions:albuterol (PROVENTIL) 2.5 mg /3 mL [...] or fevers.Neuro: No history of TIA's, stroke, TANK TESTER tumor, impaired sensorium, hemiplegia,paraplegia or quadriplegia. No neurological symptoms or problems.Respiratory: COPD on nebulizersCardiovascular: No history of HTN requiring medication, no history of angina,CHF, WI, cardiac surgery or stents. Denies rest pain, gangrene orrevascularization/amputati on for PVD. No history of cardiovascular symptoms orproblems.GI: Peptic Ulcer Disease on ZantacGU: No history of UTI in past 6 weeks. No history of renal failure. Notcurrently on or requiring dialysis. 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 due to menopause and [...] period.Diagnostic tests reviewed for today's visit:Most recent labsPLAN/RECOMMENDATIONSCARD IAC: Patient is at optimal cardiac condition for scheduled surgery / procedure.PULMONARY: Patient is at optimal Pulmonary status for scheduled surgery / procedure.Slightly higher risk of pulmonary complications because of COPDVASCULAR/ANTICOAGULATION : VTE prophylaxis as deemed appropriate by the [...] July 25, 2017 : 1:49 Sarah Kirkpatrick LPN 07/26/2017 4:05 PM SignedFausto Corrigan is a 57 year old female here today for visit in [facility] Surgeon: Dr. Fernandez of Surgery: 08/03/2017Planned Surgery/Procedure: Sigmoid Colectomy w/ CRAAllergies have been reviewed and verified. They include the following:Sulfa (Sulfonamide Antibiotics)Social HistorySubstance Use Topics- Smoking status: Former Smoker Years: 20.00 Types: Cigarettes Start date: 06/07/1997 Quit date: 06/26/2017- Smokeless tobacco: Never Used Comment: smokes 3-4 daily- Alcohol use NoMedications reviewed and updated: Armida Patricia MD 07/26/2017 4:05 PM Signed [facility] Instructions for SurgeryFOOD INSTRUCTIONS:NO solid food or [...] visit please do nothesitate to contact the [facility] at [phone] or [phone], [phone].Signature: Rivera Patricia MDDate: July 26, 2017Referring Provider: ESEQUIEL THOMAS [[id number]]Allergies As of Date: 07/26/2017 Noted Allergy ReactionSULFA (SULFONAMIDE ANTIBIOTICS) 06/07/2017 4 - Hives 10 - AnaphylaxisDate Reviewed: 07/26/2017Reviewed by: Sis Kirkpatrick LPN - Fully AssessedPrimary Visit Diagnosis:Chronic obstructive pulmonary disease, unspecified COPD type ([facility]) [J44.9] Other Visit Diagnoses:Pre-operative examination [Z01.818] Upper [...] HYCLATE 100 MG CAPSULE >> Sis Kirkpatrick LPN 07/26/2017 3:41 PM >> SIS JOSUE Jul 26, 2017 3:41 PM PREDNISONE 10 MG TABLET >> Sis Kirkpatrick CONCRETE ANALYST 07/26/2017 3:41 PM >> SIS JOSUE L* WedJul 26, 2017 3:41 PM ATENOLOL 50 MG-CHLORTHALIDONE 25 MG TABLET >> Sis Kirkpatrick CONCRETE ANALYST 07/26/2017 3:41 PM >> SIS JOSUE L* WedJul 26, 2017 3:41 PM OXYCODONE-ACETAMINOPHEN 5 MG-325 MG TABLET >> Sis D Samira Kirkpatrick CONCRETE ANALYST 07/26/2017 3:41 PM >> SIS JOSUE D L* WedJul 26, 2017 3:41 PM DOCUSATE SODIUM 100 MG CAPSULE >> Sis Kirkpatrick CONCRETE ANALYST 07/26/2017 3:41 PM >> SIS JOSUE L* WedJul 26, 2017 3:41 PMProblem List As Of Date 07/26/2017 Noted Resolved 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 Other instructions from your clinician: [facility] Patient Instructions for Surgery FOOD INSTRUCTIONS: NO solid food or non-clear liquids for 8 hours prior to the arrival time for your surgery. Unless you are instructed otherwise, you are allowed to drink up to 12 ounces of clear liquids (e.g. water, black tea/coffee, fruit juice without pulp, Chelsei Rossy, etc.) up until 2 hours prior [...] please do not hesitate to contact the [facility] at [phone] or [phone], ext [phone]. Signature: Rivera Patricia MD Date: July 26, 2017Encounter Number: [id number] Status:Closed by RIVERA PATRICIA MD on 07/26/17 [facility] CNOV Office Visit (ENDOMN) ----FAUSTO CORRIGAN ([id number]) 1960 FDate Time Provider Efkupnclzm14/30/17 1:20 PM IVAN HYDE) ENDOMN During your visit today, we recorded the following information about you: Weight 73 kgToshia Javed, RN, RN 07/26/2017 2:21 PM SignedThank you for choosing the [facility] Department of Endocrinology,Diabetes and Metabolism. Being [...] a lost opportunity for patients to receive [facility] care at the [facility].To Cancel an appointment, please choose one of the following: - Call the Appointment Call Center at [phone] - From Karaz, Go to Appointments ? Cancel ApptsIf cancelling, consider your need to reschedule to prevent further delays inyour care.To Schedule an appointment, please choose one of the following: - Call the Appointment Call Center at [phone] - From Karaz, Go to Appointments ? Request an Samara Hyde MD 07/27/2017 11:34 PM SignedDIABERICHI INITIAL CONSULTPATIENT NAME: Fausto CorriganMRN: [id number] DATE: 07/26/2017SERVICE TIME:REASON FOR CONSULT: DM Type 2REQUESTING PHYSICIAN:Ivan Hyde MD[address] [address]JAIRCOV CARE PHYSICIAN: No PcpSUBJECTIVEHISTORY OF PRESENT ILLNESS: [...] EXAM:Wt 73 kg (161 lb) BMI 31.61 kg/e2Vrvuizy: Well appearing, alert, in no acute distress, [...] Unknown ANDgt;60eGFR-All Other Races Latest Units: . 59IMPRESSION/RECOMMENDATIONS Fausto Corrigan is a very pleasant 57 year [...] 26, 2017TIME: 2:32 PMReferring Provider: IVAN HYDE) [[id number]]Allergies As of Date: 07/26/2017 Noted Allergy ReactionSULFA (SULFONAMIDE ANTIBIOTICS) 06/07/2017 4 - Hives 10 - AnaphylaxisDate Reviewed: 07/26/2017Reviewed by: Sis [facility] - Fully AssessedReason for Visit: Diabetes [34]Primary Visit Diagnosis:Uncontrolled type 2 diabetes mellitus without complication, without long-term current use of insulin ([facility]) [E11.65]Order(s):HB A1C B/O [9205434] Order #: [id number] TSH BLD [SQTSH] Order #: [id number] FUTUREPrescriptions as of 07/26/2017 Sig: ALBUTEROL SULFATE [...] your clinician: Thank you for choosing the [facility] Department of Endocrinology, Diabetes and Metabolism. Being able to provide excellent health care has allowed us to be # 3 in the country according to [employer]. Did you know that you need to call 48 hours in advance of your scheduled visit, if you are unable to make your appointment? The Endocrinology and Metabolism Allison thanks you for your commitment, because patients not showing to their appointment results in a lost opportunity for patients to receive [facility] care at the [facility]. To Cancel an appointment, please choose one of the following: - Call the Appointment Call Center at [phone] - From Karaz, Go to Appointments ? Cancel Appts If cancelling, consider your need to reschedule to prevent further delays in your care. To Schedule an appointment, please choose one of the following: - Call the Appointment Call Center at [phone] - From Karaz, Go to Appointments ? Request an ApptEncounter Number: [id number] Status:Closed by IVAN HYDE MD on 07/27/17 [facility] CNOV Office Visit (PULMMN) ----FAUSTO CORRIGAN ([id number]) 1960 [facility] Time Provider Ujfgbehnir63/30/17 9:50 AM AIMEE HERNANDEZ During your visit today, we recorded the following information about you: Temperature Pulse Respiration Blood pressure 98.5 degrees 74/minute 20/minute 116/67 Weight Height 73 kg 1.524 Jo Hernandez MD 07/26/2017 3:23 PM SignedSanta Fe Indian Hospitaliratory InstitutePulmonary ConsultationCC: Pre-operative evaluationConsultation requested by Dr. Thomas for a pre-operative pulmonary evaluation.My final recommendations will be communicated to the requesting health careprovider by way of the shared medical record for internal providers or lettervia the [employer] for external providers.HISTORY OF PRESENT ILLNESSFausto [...] Alcohol use: No Drug use: NoPrivate home connect lpn for elderly peopleGets sick a lot from themPreviously worked in [employer], making plastic parts, [place] plasticwith some occupational exposure from thatOff an on [...] and wheezing.).Disp: 1 Inhaler Rfl: 5No current facility-administered medications for this visit.ALLERGIESAllergen Reactions- Sulfa (Sulfonamide * Hives, AnaphylaxisREVIEW OF SYSTEMSReview of SystemsGENERAL:Negative for malaise, significant weight loss and feverHEENT:Negative for frequent or significant headaches, significant changes invision or vision problems, significant ear problems or hearing loss, see HPINECK:Negative for lumps, goiter, pain and significant neck swellingRESPIRATORY: see HPICARDIOVASCULAR: Negative for chest pain, leg swelling and palpitationsGASTROINTESTINAL : Negative for abdominal discomfort, change in bowel habitsGENITOURINARY: Negative for dysuria, frequency and incontinenceMUSCULOSKELETAL: Negative for small joint pain or swelling, notes chronic backpainNEUROLOGIC:Negative for focal numbness or weakness, headaches and dizziness.SKIN:Negative for lesions, rash, and itching.PSYCHIATRIC: Negative for sleep disturbance, mood disorder and recentpsychosocial stressors.HEMATOLOGIC/LYMPHA TIC/IMMUNOLOGIC:Negative for prolonged bleeding, bruisingeasily, and swollen nodes.ENDOCRINE: [...] REVIEWI personally reviewed the labs, PFTs and radiographsRadiology:PFT:SPI ROMETRY WITH DILATOR IF OBSTRUCTED ([id number]) - ordered on 07/26/17 [facility] [address], [address] [place] [address] Test Date: [id number] Name: FAUSTO CORRIGAN Department: Room: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 2 07/26/2017 12:14:11PM PRE/POST- ATS acceptability and repeatabilitystandards for spirometry met.Medications and Allergies were reviewed forpossibledrug interactions per policy MM-102. No contraindications or sensitivities werenoted. Respiratory meds taken in past 72H: Albuterol / 16 hours before testing. 4 puffs albuterol (360 mcg) delivered by MDI via valved holding chamber, HRpre=80/min, HRpost= 72/min. /JAQUAN//DIO nguyen??IMPRESSION: [facility] Respiratory Allison Pulmonary Function Lab Pred LLN ULN Pre % Post % % chgDate [id number] 11:44AM 12:10PM Height 152.4 152.4Weight 72.6 72.6 FVC 2.96 2.35 [...] 2.35 3.57 2.11 71 2.13 72 1 Cardia c:EKG - NSRASSESSMENT AND PLANViola Corrigan is a 57 year old female [...] of postoperative respiratory failure (GurinderRespiratoray Failure Index. OLAF [place]. Nancie Surg 2000; 232: 242). THaving a respiratory infection within the past month increases the risk. Iagree with postponing surgery until Aug 24 to reduce her risk.RECOMMENDATIONS:In order to minimize the risk of complications and optimize pulmonary status,we recommend the following:-Encourage aggressive incentive spirometry hourly both ayse-operatively andpost-operatively as tolerated-Early ambulation and physical therapy as tolerated oncz-ktahuovwgrs-Srfxcebf narcotics as much as possible-Bronchodilators as needed [...] make sure she's feelingbetter and recovered from illnessMARIO ALBERTO Chaparroulmonary and Critical Care MedicineSanta Fe Indian Hospitaliratory InstituteOhiohealth [facility] HospitalAimee Hernandez MD 07/26/2017 1:35 PM AddendumConsider lung cancer screening in the futureI would like to see you the day before your surgery to make sure you're feelingbetterPlease get the 6 minute walk test the same dayReferring Provider: ESEQUIEL THOMAS [[id number]]Allergies As of Date: 07/26/2017 Noted Allergy ReactionSULFA (SULFONAMIDE ANTIBIOTICS) 06/07/2017 4 - Hives 10 - AnaphylaxisDate Reviewed: 07/26/2017Reviewed by: Toshia (Rn) TIA Javed - Fully AssessedReason for Visit: Consult [502]Primary Visit Diagnosis:Pre-op evaluation [Z01.818] Other Visit Diagnoses:COPD with chronic bronchitis (HCC) [J44.9] Allergic rhinitis, unspecified chronicity, unspecified seasonality, unspecified trigger [J30.9] Former smoker [Z87.891] 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]Order(s):fluticasone- salmeterol (ADVAIR) 500-50 mcg/dose dsdvInhale 1 Puff as instructed twice daily. Rinse mouth out after useDisp: 1 InhalerRfl: 11 albuterol HFA (PROVENTIL HFA) 90 mcg/actuation inhalerInhale 2 Puffs as instructed every 4 hours as needed (for shortness of breath and wheezing.).Disp: 1 InhalerRfl: 5 SIX MINUTE WALK [[id number]] Order #: [id number] FUTUREPrescriptions as of 07/26/2017 Sig: ALBUTEROL SULFATE [...] %) SOLUTION FOR NEBULIZATION >> Gabby Spears TREVOR 07/26/2017 12:51 PM >> CHUYITA MURRAY GABBY [facility] Jul 26, 2017 12:51 PM Received from: External Pharmacy DOXYCYCLINE HYCLATE 100 MG CAPSULE >> Gabby Spears TREVOR 07/26/2017 12:51 PM >> CHUYITA MURRAY GABBY [facility] Jul 26, 2017 12:51 PM Received from: External Pharmacy Received Sig: take 1 capsule by mouth twicea day PREDNISONE 10 MG TABLET >> Gabby Shresthagrady MURRAY 07/26/2017 12:51 PM >> SPEARS TREVORGABBY Jul 26, 2017 12:51 PM Received from: External Pharmacy ATENOLOL 50 MG-CHLORTHALIDONE 25 MG TABLET >> Gabby Shresthagrady MURRAY 07/26/2017 12:52 PM >> SPEARS TREVORGABBY Jul 26, 2017 12:52 PM Received from: External Pharmacy Received Sig: take 1 tablet by mouth oncedaily OXYCODONE-ACETAMINOPHEN 5 MG-325 MG TABLET >> Gabby Shresthagrady MURRAY 07/26/2017 12:50 PM >> SPEARS TREVORGABBY Jul 26, 2017 12:50 PM Pt. Takes as needed DOCUSATE SODIUM 100 MG CAPSULE >> Gabby Spears TREVOR 07/26/2017 12:49 PM >> GABBY SPEARS MA [...] (on 08/23/2017).Follow-up and Disposition History RecordedEncounter Number: [id number] Status:Closed by AIMEE HERNANDEZ MD on 07/26/17 Normal [facility] Comp Metabolic Panelon 07-26 Alanine aminotransferase (ALT) 19 U/L Normal 7-38 [facility] Comment on above: Performed By: #### C BC, CMP ####[facility] [phone] Albumin 4.3 g/dL Normal 3.9-4.9 [facility] Comment on above: Performed By: #### C BC, CMP ####[place] [address] [place] [phone] Alkaline phosphatase (ALP) 96 U/L Normal 32-117 [facility] Comment on above: Performed By: #### C BC, CMP ####[facility] [place] [phone] Anion gap 18 mmol/L Normal 9-18 [facility] Comment on above: Performed By: #### C BC, CMP ####[facility] [place] [phone] Aspartate aminotransferase (AST) 16 U/L Normal 13-35 [facility] Comment on above: Performed By: #### C BC, CMP ####[facility] [address] AvJeff[place], [place] [phone] Bilirubin (total) 0.2 mg/dL Normal 0.2-1.3 [facility] Comment on above: Performed By: #### C BC, CMP ####[facility]Jeff[place], [place] [phone] Calcium 9.8 mg/dL Normal 8.5-10.2 [facility] Comment on above: Performed By: #### C BC, CMP ####[facility], [place] [phone] Chloride 96 mmol/L Low 97-105 [facility] Comment on above: Performed By: #### C BC, CMP ####[facility], [place] [phone] CO2 25 mmol/L Normal 22-30 [facility] Comment on above: Performed By: #### C BC, CMP ####[facility], [place] [phone] Creatinine 0.98 mg/dL High 0.58-0.96 [facility] Comment on above: Performed By: #### C BC, CMP ####[place] [address] [address], [place] [phone] eGFR (non-black) 59 . Normal [facility] Comment on above: Result Comment: eGFR [...] GFR. Performed By: #### C BC, CMP ####[place] [address]CW[address], [place] [phone] eGFR (non-black) mL/min/{1.73_m2} Normal [facility] Comment on above: Performed By: #### C BC, CMP ####[facility], [place] [phone] Glucose mass conc 133 mg/dL High 74-99 [facility] Comment on above: Result Comment: The [place] Diabetes Association (ADA) provides guidance for cutoff [...] Standards of Medical Care in Diabetes 2016, [place] Diabetes Association. Diabetes Care. 2016.39(Suppl 1). Performed By: #### C BC, CMP ####[place] [phone] Potassium molar conc 3.9 mmol/L Normal 3.7-5.1 [facility] Comment on above: Performed By: #### C BC, CMP ####[place] [address] [address] [place] [phone] Protein 7.5 g/dL Normal 6.3-8.0 [facility] Comment on above: Performed By: #### C BC, CMP ####[place] [address] [place] [phone] Sodium 139 mmol/L Normal 136-144 [facility] Comment on above: Performed By: #### C BC, CMP ####[place] [address] [place] [phone] Urea nitrogen 20 mg/dL Normal 7-21 [facility] Comment on above: Performed By: #### C BC, CMP ####[place] [address] [place] [phone] Confirm Blood Typeon 017 ABO/RH(D) Positive Normal [facility] Comment on above: Performed By: #### C ONABO ####[facility] [place], [place] [phone] OBSOLETEon 07-26-2017 OBSOLETE Procedure (PULLMN) ----FAUSTO CORRIGAN ([id number]) 1960 FDate Time Provider Kzjyxizhfz12/30/17 9:00 AM PULM FCT LAB MAIN 6 ADDON PULLMN During your visit today, we recorded the following information about you:Referring Provider: ESEQUIEL THOMAS [[id number]]Allergies As of Date: 07/26/2017 Noted Allergy ReactionSULFA (SULFONAMIDE ANTIBIOTICS) 06/07/2017 4 - Hives 10 - AnaphylaxisDate Reviewed: 06/07/2017Reviewed by: Nicolle (Josr) JOSR Moncada - Fully AssessedReason for Visit: Spirometry [191]Primary Visit Diagnosis:Dyspnea, unspecified type [R06.00] Other Visit Diagnosis:Chronic obstructive pulmonary disease, unspecified COPD type (HCC) [J44.9]Order(s):SPIROMETRY WITH DILATOR IF OBSTRUCTED [[id number]] Order #: [id number]. #:[id number] ons as of 07/26/2017 Sig: OXYCODONE-ACETAMINOPHEN 5 MG-* [...] More... Status:Closed by ABIMAEL KENDALL on 07/26/17 [facility] PROGRESSon 07-26-2017 PROGRESS HNO ID: [id number] thor: Geoffrey (Star) NicholeuvenService: (none)Author Type: ResidentType: Progress NotesFiled: 07/26/2017 5:18 [...] lb 15 oz) SpO2 96% BMI 31.6 kg/v2Ygzpf signs completed by: IMPACTWeight acquired: per HANDP. [...] pulm recommendations so pulmonary status can be furtheroptimized.OPTIMIZATIO N STATUS: Pt currently not optimized per pulmonary. Pulmrecommends postponing surgery till and cont prednisone, doxy andinhaler use. Pulm to re-eval day before surgery. Agree with pulmonaryrecommendations. Pt is at higher risk of pulmonary complications post opincluding possibility of difficult extubation.SIGNATURE: Geoffrey Sosa DO PATIENT NAME: Fausto CorriganDATE: July 26, 2017 : 4:26 PM PAGER/CONTACT #: [facility] PROGRESS HNO ID: [id number] thor: Sis Hogan [facility] HospitalNService: (none)Author Type: (none)Type: Progress NotesFiled: 07/26/2017 4:05 [...] Alcohol use NoMedications reviewed and updated: Armida [facility] Normal [facility] PROGRESS HNO ID: [id number] thor: Ivan Sheffield) Dontrell: (none)Author Type: PhysicianType: Progress NotesFiled: 07/27/2017 11:34 PMNote Text:DIABETES INITIAL CONSULTPATIENT NAME: Fausto CorriganMRN: [id number] DATE: 07/26/2017SERVICE TIME:REASON FOR CONSULT: DM Type 2REQUESTING PHYSICIAN:Ivan Hyde MD[address] [facility] [id number] [address]IJUTLVI CARE PHYSICIAN: No PcpSUBJECTIVEHISTORY OF PRESENT ILLNESS: [...] EXAM:Wt 73 kg (161 lb) BMI 31.61 kg/d7Bqkshgn: Well appearing, alert, in no acute distress, [...] posterior tibial and doralis pedis pulses 2+ andsymmetricalDATA:Diagnosti c tests reviewed for today's visit:Results for FAUSTO [...] Unknown >60eGFR-All Other Races Latest Units: . 59IMPRESSION/RECOMMENDATIONS Fausto Corrigan is a very pleasant 57 year old yo female with hx of:1.- DMT2 for the last 8 years. She will start taking it again pyjkmuwnc916 mg twice a day. She has medication at home. Of importance is thattoday her fasting blood sugar was 1 33 mg/dL. We ordered a hemoglobin S9jrpdut has not been done. We will see her back in 6 weeks a repeathemoglobin A1c. Her blood sugars should improve once she is off steroids.SIGNATURE: Ivan Hyde, MDDATE: July 26, 2017TIME: 2:32 PM [facility] PROGRESS HNO ID: [id number] thor: Cristina Vernon RtService: (none)Author Type: (none)Type: Progress NotesFiled: 07/26/2017 1:40 PMNote Text: Radiology Service Progress NotePATIENT NAME: Fausto CorriganMRN: [id number] OF SERVICE: July 26, 2017TIME: 1:40 PMPATIENT IDENTITY VERIFICATION COMPLETED USING TWO (2) METHODS: Patientconfirmed name verbally and Date of .PATIENT GENDER DATA: MalePATIENT RELEVANT IMPLANT DATA REVIEWED: Not ApplicableRADIOLOGY DEPARTMENT: General X-ray: Exam(s) Completed: Chest X-RayPERIPHERAL IV DATA: Not applicableSIGNED BY: Cristina Vernon RtOctober 2016 1:40 PM [facility] PRO[facility]ESS HNO ID: [id number] thor: Aimee Gonzalez: (none)Author Type: PhysicianType: Progress NotesFiled: 07/26/2017 3:23 PMNote Text:Respiratory InstitutePulmonary ConsultationCC: Pre-operative evaluationConsultation requested by Dr. Thomas for a pre-operative pulmonaryevaluation. 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, [employer] with some occupational exposure from thatOff an [...] Negative for chest pain, leg swelling and palpitationsGASTROINTESTINAL : Negative for abdominal discomfort, change in bowelhabitsGENITOURINARY: Negative for dysuria, frequency and incontinenceMUSCULOSKELETAL: Negative for small joint pain or swelling, notes chronicback painNEUROLOGIC:Negative for focal numbness or weakness, headaches anddizziness.SKIN:Negative for lesions, rash, and itching.PSYCHIATRIC: Negative for sleep disturbance, mood disorder and recentpsychosocial stressors.HEMATOLOGIC/LYMPHA TIC/IMMUNOLOGIC:Negative for prolonged bleeding,bruising easily, and swollen nodes.ENDOCRINE: [...] Abdomen soft, non-tender. Bowel sounds normal. No masses,organomegalyExtremiti es: Extremities normal. No deformities, edema, or skindiscoloration. Good capillary refill.Peripheral pulses: NormalNeuro: Gait normal. Reflexes normal and symmetric. 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 2 07/26/2017 12:14:11PM PRE/POST- ATS acceptability andrepeatabilitystandards for spirometry met.Medications and Allergies were reviewed forpossibledrug interactions per policy MM-102. No contraindications orsensitivities werenoted. Respiratory meds taken in past 72H: Albuterol / 16 hours beforetesting. 4 puffs albuterol (360 mcg) delivered by MDI via valved holding chamber, HRpre=80/min, HRpost= 72/min. /JAQUAN//DIO i??IMPRESSION: [facility] Respiratory Allison Pulmonary Function Lab Pred LLN ULN Pre % Post % %chgDate [id number] 862351Oomz 11:44AM 12:10PM Height 152.4 152.4Weight 72.6 72.6 FVC 2.96 2.35 [...] 4.28 1.06 34 1.36 4429FIF 50 1.99 2.7792E52/75 2.34 1.25 3.42 0.67 29 0.84 3625FE%FIF 53.13 61.0047ZEL3 1.95 2.05 5PEF 5.36 3.63 7.09 4.30 80 5.37 28826VQQ 10.82 10.59-2FETPEF 0.08 0.04-56VBe%FV 4.39 3.07 -30VBEex 0.09 0.07-29 VC MAX 2.96 2.35 3.57 2.11 71 2.13 72 1 Luiz c:EKG - NSRASSEKINJAL AND Scarrose Shekhar is a 57 year old female [...] of postoperative respiratoryfailure (Gurinder Respiratoray Failure Index. Gurinder, AM. Nancie Tqeg0729; 232: 242). THaving a respiratory infection within the past month increases the risk. Iagree with postponing surgery until Aug 24 to reduce her risk.RECOMMENDATIONS:In order to minimize the risk of complications and optimize pulmonarystatus, we recommend the following:-Encourage aggressive incentive spirometry hourly both ayse-operativelyand post-operatively as tolerated-Early ambulation and physical therapy as tolerated cgrc-dlbgrxlssda-Savfzocx narcotics as much as possible-Bronchodilators as needed [...] illnessAmy Santana, MDPulmonary and Critical Care MedicineRespiratory InstituteOhiohealth Mansfield Hospital Normal [facility] Type and SCR (30D)on 017 ABO/RH(D) Positive [facility] Comment on above: Performed By: #### T SCR30 ####[facility] [address] [place], [place] [phone] Antibody Screen Negative Normal [facility] Comment on above: Performed By: #### T SCR30 ####[facility] [address] [place], [place] [phone] XR CHEST 2V FRONTAL/LATon XR CHEST 2V [...] clips in the upper abdomen suggest prior cholecystectomy.IMPRESSION:N o acute radiographic abnormality.Customer Operations Intern : PSCB Transcribe Date/Time: Jul 26 2017 2:28PDictated by : FABY SWANSON MDThigrady examination was interpreted and the report reviewed and electronically signed by: CORNELIUS BEAR MD on Jul 26 2017 4:55PM [id number] Normal [facility] HISTORY PHYSICALon HISTORY PHYSICAL HNO ID: [id number] thor: Rivera Sheffield) BhallaService: (none)Author Type: PhysicianType: HANDPFiled: 07/26/2017 8:42 [...] self-reported physical activity.Significant Anesthesia Considerations: None. PAST MEDICAL/SURGICAL/FAMILY/SOCI AL HISTORYPAST MEDICAL HISTORYDiagnosis Date- COPD (chronic obstructive [...] 3-4 daily Alcohol use: No Drug use: NoMEDICATIONS/ALLERGIESCurre nt Outpatient Prescriptions:albuterol (PROVENTIL) 2.5 mg /3 mL [...] or fevers.Neuro: No history of TIA's, stroke, TANK TESTER tumor, impaired sensorium,hemiplegia, paraplegia or quadriplegia. No neurological symptoms orproblems.Respiratory: COPD on nebulizersCardiovascular: No history of HTN requiring medication, no history ofangina, CHF, WI, cardiac surgery or stents. Denies rest pain, gangrene orrevascularization/amputati on for PVD. No history of cardiovascularsymptoms or problems.GI: Peptic Ulcer Disease on ZantacGU: No history of UTI in past 6 weeks. No history of renal failure. Notcurrently on or requiring dialysis. 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 due to menopause and [...] period.Diagnostic tests reviewed for today's visit:Most recent labsPLAN/RECOMMENDATIONSCARD IAC: Patient is at optimal cardiac condition for scheduled surgery /procedure.PULMONARY: Patient is at optimal Pulmonary status for scheduled surgery /procedure.Slightly higher risk of pulmonary complications because of COPDVASCULAR/ANTICOAGULATION : VTE prophylaxis as deemed appropriate by the [...] questions, and answered all questions to their statedsatisfaction.SIGNATURE : Rivera Patricia MD PATIENT NAME: Fausto CorriganDATE: July 25, 2017 : 1:49 PM [facility] HOSPon 06-08-2017 HOSP Patient Update (CORN) ----FAUSTO CORRIGAN ([id number]) 1960 FDate Time Provider Department06/08/17 ESEQUIEL THOMAS During your visit today, we recorded the following information about you:Allergies As of Date: 06/08/2017 Noted Allergy ReactionSULFA (SULFONAMIDE ANTIBIOTICS) 06/07/2017 4 - Hives 10 - AnaphylaxisDate Reviewed: 06/07/2017Reviewed by: Nicolle (Josr) JOSR Moncada - Fully AssessedPrimary Visit Diagnosis: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]Order(s):SURGICAL REQUEST - ELECTIVE [[id number]] Order #: [id number]: 1 PER WHAT TO EXPECT DURING YOUR HOSPITAL STAY [4240130] Order #: [id number]: 1 CBC [SQCBC] Order #: [id number] FUTURE COMP METABOLIC PANEL [SQCMP] Order #: [id number] FUTURE CONFIRM BLOOD TYPE [SQCONABO] Order #: [id number] FUTURE TYPE + SCREEN,30 DAY [RXJFDW06] Order #: [id number] FUTURE ECG COMPLETE W INTERPRETATION [ECG01] Order #: [id number] FUTURE REFER FOR ADMIT INTERVIEW [9868137] Order #: [id number] HANDP FOR SURGERY [Q2415PCB] Order #: [id number] CONSULT TO PATIENT EDUCATION [19991031] Order #: [id number]: 1 CONSULT TO ANESTHESIOLOGY [9001] Order #: [id number]: 1 CONSULT TO INT MED-IMPACT [5349863] Order #: [id number]: 1 CONSULT TO PULMONARY MEDICINE [2956192] Order #: [id number]: 1 CONSULT TO ENDOCRINOLOGY [9006] Order #: [id number]: 1Prescriptions as of 06/08/2017 Sig: OXYCODONE-ACETAMINOPHEN 5 [...] FOR* More...Follow-up and Disposition History RecordedEncounter Number: [id number] Status:Closed by ESEQUIEL THOMAS MD, FACS on 06/09/17 [facility] CNOVon 06-07-2017 CNOV Office Visit (TOMAS) ----FAUSTO CORRIGAN ([id number]) 1960 FDate Time Provider Department06/07/17 1:20 PM ESEQUIEL THOMAS During your visit today, we recorded the following information about you: Temperature Pulse Blood pressure Weight 97.8 degrees 79/minute 119/76 73.5 kg Height 1.537 Geovany Thomas MD FACS 06/07/2017 3:44 PM SignedNew Patient ConsultREASON FOR Rafia Corrigan is a 56 year old female who is scheduled for a consult at [facility] for Consult (Colovaginal Fistula). 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 Disp: Rfl:acetaminophen (TYLENOL EXTRA STRENGTH) 500 mg tablet Take 1,000 mg by mouthevery 8 hours as needed. Disp: Rfl:ranitidine (ZANTAC) 150 mg tablet Take 150 mg by mouth twice daily. Disp: Rfl:No current facility-administered medications for this visit.CURRENT ALLERGIESALLERGIESAllergen Reactions- Sulfa (Sulfonamide * Hives, AnaphylaxisREVIEW OF SYSTEMSPAIN ASSESSMENT: PainPain Score: 4/10Pain Location: AbdomenDescription: SoreDuration Amount of Time: 3Duration Units: MonthsFrequency: IntermittentIntervention: RepositionGeneral: MalaiseNeuro: No history of TIA's, stroke, TANK TESTER tumor, impaired sensorium, hemiplegia,paraplegia or quadraplegia. No neurological symptoms or problems.Respiratory: COPDCardiovascular: Hx HTNGI: Positive for GERD, PUD, Heartburn, Abdominal pain, Diverticulitis, Historyof polypsGU: No history of UTI in past 6 weeks. No history of renal failure. Notcurrently on or requiring dialysis. 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 . She will need preoperative assessment of lungs by the pulmonary doctors andshe should be seen by anesthesia preoperatively.Esequiel Thomas MD FACSDATE: 06/07/17TIME: 2:32 PMReferring Provider: [facility] [[id number]]Allergies As of Date: 06/07/2017 Noted Allergy ReactionSULFA (SULFONAMIDE ANTIBIOTICS) 06/07/2017 4 - Hives 10 - AnaphylaxisDate Reviewed: 06/07/2017Reviewed by: Nicolle GoinsJosr) JOSR Moncada - Fully AssessedReason for Visit: [...] by ESEQUIEL THOMAS MD, FACS on 06/07/17 [facility] HISTORY PHYSICALon HISTORY PHYSICAL HNO ID: [id number] thor: Esequiel Goodwin: (none)Author Type: PhysicianType: HANDPFiled: 06/07/2017 3:44 PMNote Text:New Patient ConsultREASON FOR Rafia Corrigan is a 56 year old female who is scheduled for a consult at [facility] for Consult (Colovaginal Fistula). [...] pain during BMs.She does have COPD from correction smoking, but says she only has 3-4cigarettes [...] patient has the following:Problem List (None)MEDICATIONSCurrent Outpatient Prescriptions:oxyCODONE-acet aminophen (PERCOCET) 5-325 mg tablet Take 1 tablet [...] RepositionGeneral: MalaiseNeuro: No history of TIA's, stroke, TANK TESTER tumor, impaired sensorium,hemiplegia, paraplegia or quadraplegia. No neurological symptoms orproblems.Respiratory: COPDCardiovascular: Hx HTNGI: Positive for GERD, PUD, Heartburn, Abdominal pain, Diverticulitis,History of polypsGU: No history of UTI in past 6 weeks. No history of renal failure. Notcurrently on or requiring dialysis. 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 . She will need preoperative assessment of lungs by the pulmonary doctorsand she should be seen by anesthesia preoperatively.Esequiel Thomas MD FACSDATE: 06/07/17TIME: 2:32 PM [facility] SR-CT ABD/PELVIS W CON IMPOR Ton 04-15-2017 SR-CT ABD/PELVIS W CON IMPORT Images were obtained outside of [facility] [id number] Normal [facility] Vital Signs Date Time Vital Sign Value Performing Clinician Faci lity 10-06-2022 13:45-0500 Body height 154.94 cm Veronique Harris Work Phone: [facility] DO Work Phone: 10-06-2022 13:45-0500 Body mass index (BMI) [Ratio] 29.29 kg/m2 Veronique Mosherholkali Work Phone: [facility] DO Work Phone: 10-06-2022 13:45-0500 Body surface area Derived from formula 1.7 m2 Veronique Mosherholkali Work Phone: [facility] DO Work Phone: 10-06-2022 13:45-0500 Body weight 70.31 kg Veronique Mosherholkali Work Phone: [facility] DO Work Phone: 10-06-2022 13:45-0500 Diastolic blood pressure 80 mm[Hg] Veronique Mosherholkali Work Phone: [facility] DO Work Phone: 10-06-2022 13:45-0500 Heart rate 72 /min Veronique Mosherholkali Work Phone: [facility] DO Work Phone: 10-06-2022 13:45-0500 Systolic blood pressure 142 mm[Hg] Veronique Mosherholkali Work Phone: [facility] DO Work Phone: 10-16-2021 11:41-0500 Body height 154.94 cm Dara Mills Work Phone: [facility] DO Work Phone: 10-16-2021 11:41-0500 Body mass index (BMI) [Ratio] 30.04 kg/m2 Dara Mills Work Phone: [facility] DO Work Phone: 10-16-2021 11:41-0500 Body surface area Derived from formula 1.71 m2 Dara Mills Work Phone: [facility] DO Work Phone: 10-16-2021 11:41-0500 Body weight 72.12 kg Dara Mills Work Phone: [facility] DO Work Phone: 10-16-2021 11:41-0500 Diastolic blood pressure 82 mm[Hg] Dara Mills Work Phone: [facility] DO Work Phone: 10-16-2021 11:41-0500 Heart rate 65 /min Dara Mills Work Phone: [facility] DO Work Phone: 10-16-2021 11:41-0500 Systolic blood pressure 136 mm[Hg] Dara Mills Work Phone: [facility] DO Work Phone: 04-08-2021 11:18-0400 [facility]: 04-08-2021 11:18-0400 Body mass index (BMI) [Ratio] 30.66 kg/m2 [facility] Work [facility]: 04-08-2021 11:18-0400 Body weight 71.22 kg [facility] Work Phone: 04-08-2021 11:18-0400 Diastolic blood pressure 82 mm[Hg] [facility] Work [facility]: 04-08-2021 11:18-0400 Heart rate 64 /min [facility] Work Phone: 04-08-2021 11:18-0400 Respiratory rate 18 /min [facility] Work Phone: 04-08-2021 11:18-0400 SaO2% (BldA) [Mass fraction] 97 % [facility] Work Phone: 04-08-2021 11:18-0400 Systolic blood pressure 144 mm[Hg] [facility] Work Phone: Encounters Encounter Date Encounter Type Care Provider Facility Start: 01-19-2023 End: 01-19-2023 ambulatory BORA HARRIS Facility:[facility] Start: 10-06-2022 Office outpatient vi sit 25 minutes Veronique Harris Work Phone: [facility] DO Work Phone: Start: 10-06-[address] Rafael Washington Facility: Start: 09-23-2022 Rx Renewal Dara Mills Work Phone: [facility] DO Work Phone: Start: 09-01-2022 End: 09-02-2022 ambulatory OLIVER ALVARADO . Facility:[facility] Start: 07-08-[address] Rafael Washington Facility: Start: 06-17-2022 End: 06-18-2022 ambulatory PACK CHANGER VERONIQUE TIAGOChongDANNI Facility:[facility] Start: 03-12-2022 End: 03-13-2022 ambulatory BORA AMBRIZ TIAGOChongDANNI Facility:[facility] Start: 10-16-[address] Rafael Washington Facility: Start: 10-16-2021 Office outpatient vi sit 15 minutes Dara Mills Work Phone: [facility] DO Work Phone: Start: 08-18-2021 End: 08-19-2021 [facility]ulatory [facility] Start: 07-31-2021 End: 08-01-2021 ambulatory [facility] Start: 07-31-2021 End: 07-31-2021 Subsequent hospital visit by physician [facility] Rm 1 [facility] Comment on above: Arrived Start: 07-30-2021 End: 07-31-2021 ambulatory [facility] Start: 07-30-2021 End: 07-30-2021 Subsequent hospital visit by physician [facility] Rm 1 [facility] Comment on above: Arrived Start: 07-21-2021 End: 07-22-2021 ambulatory [facility] Start: 07-21-2021 End: 07-21-2021 Subsequent hospital visit by physician [facility] Rm 1 [facility] Comment on above: Arrived Start: 07-17-2021 End: 07-18-2021 ambulatory [facility] Start: 07-17-2021 End: 07-17-2021 Subsequent hospital visit by physician [facility] Rm 1 [facility] Comment on above: Arrived Start: 07-10-2021 End: 07-11-2021 ambulatory [facility] Start: 07-10-2021 End: 07-10-2021 Subsequent hospital visit by physician [facility] Rm 1 [facility] Comment on above: Arrived Start: 07-09-2021 End: 07-10-2021 ambulatory [facility] Start: 07-09-2021 End: 07-09-2021 Subsequent hospital visit by physician [facility] Rm 1 [facility] Comment on above: Arrived Start: 07-07-2021 End: 07-07-2021 Subsequent hospital visit by physician [facility] Rm 1 [facility] Comment on above: Arrived Start: 07-02-2021 End: 07-03-2021 ambulatory [facility] Start: 07-02-2021 End: 07-02-2021 Subsequent hospital visit by physician [facility] Rm 2 [facility] Comment on above: Arrived Start: 05-29-2021 End: 05-30-2021 ambulatory [facility] Start: 05-28-2021 End: 05-29-2021 ambulatory [facility] Start: 05-28-2021 End: 05-28-2021 Subsequent hospital visit by physician [facility] Rm 2 [facility] Comment on above: Arrived Start: 05-26-2021 End: 05-27-2021 ambulatory [facility] Start: 05-26-2021 End: 05-26-2021 Subsequent hospital visit by physician [facility] Rm 2 [facility] Card[facility] Comment on above: Arrived Start: 05-22-2021 End: 05-23-2021 ambulatory [facility] Start: 05-22-2021 End: 05-22-2021 Subsequent hospital visit by physician [facility] Rm 2 [facility] Comment on above: Arrived Start: 05-19-2021 End: 05-20-2021 ambulatory [facility] Start: 05-19-2021 End: 05-19-2021 Subsequent hospital visit by physician [facility] Rm 2 [facility] Card[facility] Comment on above: Arrived Start: 05-15-2021 End: 05-16-2021 ambulatory [facility] Start: 05-15-2021 End: 05-15-2021 Subsequent hospital visit by physician [facility] Rm 2 [facility] Card[facility] Comment on above: Arrived Start: 05-12-2021 End: 05-13-2021 ambulatory [facility] Start: 05-08-2021 End: 05-09-2021 ambulatory [facility] Start: 05-08-2021 End: 05-08-2021 Subsequent hospital visit by physician [facility] Rm 2 [facility] Card[facility] Re[facility] Comment on above: Arrived Start: 05-07-2021 End: 05-08-2021 ambulatory [facility] Start: 05-05-2021 End: 05-06-2021 ambulatory [facility] Start: 05-01-2021 End: 05-02-2021 ambulatory [facility] Start: 04-28-2021 End: 04-29-2021 ambulatory [facility] Start: 04-28-2021 End: 04-28-2021 Subsequent hospital visit by physician [facility] Rm 2 [facility] Card[facility] Comment on above: Arrived Start: 04-23-2021 End: 04-24-2021 ambulatory [facility] Start: 04-23-2021 End: 04-23-2021 Subsequent hospital visit by physician [facility] on above: Arrived Start: 04-21-2021 End: 04-22-2021 ambulatory [facility] Start: 04-21-2021 End: 04-21-2021 Subsequent hospital visit by physician [facility] Comment on above: Arrived Start: 04-14-2021 End: 04-15-2021 [facility]ulatory [facility] Start: 04-14-2021 End: 04-14-2021 Subsequent hospital visit by physician [facility] Cardiopulm Rehab Rm 2 [facility] Comment on above: Arrived Start: 04-10-2021 End: 04-11-2021 ambulatory [facility] Start: 04-08-2021 End: 04-09-2021 ambulatory [facility] Start: 04-08-2021 End: 04-08-2021 Subsequent hospital visit by physician [facility] Cr Education Room [facility] Card[facility] Re[facility] Comment on above: Arrived Start: 05-19-2018 Patient encounter THOMAS DELGADILLO Facility:[facility] Start: 03-17-2018 End: 03-17-2018 Patient encounter THOMAS DELGADILLO Facility:[facility] Start: 02-03-2018 Patient encounter THOMAS DELGADILLO Facility:[facility] Start: 07-26-2017 End: 07-26-2017 Ambulatory ESEQUIEL THOMAS [facility] Start: 07-26-2017 End: 07-26-2017 Ambulatory IVAN HYDE [facility] Start: 07-26-2017 End: 07-27-2017 Ambulatory ESEQUIEL THOMAS [facility] Start: 07-26-2017 End: 07-26-2017 Ambulatory ESEQUIEL THOMAS [facility] Start: 06-07-2017 End: 06-07-2017 Ambulatory ESEQUIEL Donnelly YANELIS [facility] Procedures Date Procedure Procedure Detail Performing Clinician Appendectomy Dara Mills Work Phone: Cardiac catheterization [facility] Work Phone: Cholecystectomy Dara Morris s Work Phone: History of percutane ous transluminal coronary angioplasty History of PTCA Dara Mills Work Phone: Hysterectomy Dara Mills Work Phone: Kidney operation Dara Cook ss Work Phone: Operative procedure on foot Dara Mills Work Phone: Operative procedure on knee Dara Mills Work Phone: Total colonoscopy Dara E R oss Work Phone: Plan of Treatment Date Care Activity Detail Author Start: 10-06-2023 FUV, Provider: Rafael Washington, Status: Pen, Time: 10:30 AM FUV, Provider: Rafael Washington, Status: Pen, Time: 10:30 AM [facility] DO Work Phone: Start: 10-06-2022 FUV, Provider: Rafael Washington, Status: Pen, Time: 1:20 PM FUV, Provider: Rafael Washington, Status: Pen, Time: 1:20 PM [facility] 250 DO Work Phone: Start: 04-14-2022 FUV, Provider: Rafael Washington, Status: Pen, Time: 11:20 AM FUV, Provider: Rafael Washington, Status: Pen, Time: 11:20 AM [facility] 250 DO Work Phone: Start: 08-18-2021 End: 08-18-2021 Patient encounter procedure 08/18/2021 Appointment Cardiac Rehabilitation [facility] Cardiac Rehab Start: 08-18-2021 End: 08-18-2021 Patient encounter procedure 08/18/2021 Appointment Cardiac Rehabilitation [facility] Cardiac Rehab Start: 08-14-2021 End: 08-14-2021 Patient encounter procedure 08/14/2021 Appointment [facility] Rehabilitation [facility] Cardiac Rehab Start: 08-14-2021 End: 08-14-2021 Patient encounter procedure 08/14/2021 Appointment [facility]iac Rehabilitation [facility] Cardiac Rehab Start: 08-13-2021 End: 08-13-2021 Patient encounter procedure 08/13/2021 Appointment Cardiac Rehabilitation [facility] Cardiac Rehab Start: 08-13-2021 End: 08-13-2021 Patient encounter procedure 08/13/2021 Appointment [facility]iac Rehabilitation [facility] Cardiac Rehab Start: 08-11-2021 End: 08-11-2021 Patient encounter procedure 08/11/2021 Appointment [facility]iac Rehabilitation [facility] Cardiac Rehab Start: 08-11-2021 End: 08-11-2021 Patient encounter procedure 08/11/2021 Appointment [facility]iac Rehabilitation [facility] Cardiac Rehab Start: 08-07-2021 End: 08-07-2021 Patient encounter procedure 08/07/2021 Appointment Cardiac Rehabilitation [facility] Cardiac Rehab Start: 08-07-2021 End: 08-07-2021 Patient encounter procedure 08/07/2021 Appointment Cardiac Rehabilitation [facility] Cardiac Rehab Start: 08-06-2021 End: 08-06-2021 Patient encounter procedure 08/06/2021 Appointment [facility] Rehabilitation [facility] Cardiac Rehab Start: 08-06-2021 End: 08-06-2021 Patient encounter procedure 08/06/2021 Appointment [facility] Card[facility] Re[facility] Start: 08-04-2021 End: 08-04-2021 Patient encounter procedure 08/04/2021 Appointment [facility] Rehabilitation [facility] Cardiac Rehab Start: 08-04-2021 End: 08-04-2021 Patient encounter procedure 08/04/2021 Appointment [facility] Rehabilitation [facility] Cardiac Rehab Start: 07-31-2021 End: 07-31-2021 Patient encounter procedure 07/31/2021 Appointment [facility] Rehabilitation [facility] Cardiac Rehab Start: 07-31-2021 End: 07-31-2021 Patient encounter procedure 07/31/2021 Appointment [facility] Cardiac Rehab Start: 07-30-2021 End: 07-30-2021 Patient encounter procedure 07/30/2021 Appointment [facility] Rehabilitation [facility] Cardiac Rehab Start: 07-30-2021 End: 07-30-2021 Patient encounter procedure 07/30/2021 Appointment [facility]iac Rehabilitation [facility] Cardiac Rehab Start: 07-28-2021 End: 07-28-2021 Patient encounter procedure 07/28/2021 Appointment [facility] Cardiac Re[facility] Start: 07-28-2021 End: 07-28-2021 Patient encounter procedure 07/28/2021 Appointment [facility] Cardiac Rehab Start: 2021 End: 2021 Patient encounter procedure 2021 Appointment [facility] Cardiac Rehab Start: 2021 End: 2021 Patient encounter procedure 2021 Appointment [facility] Card[facility] Re[facility] Start: 07-23-2021 End: 07-23-2021 Patient encounter procedure 07/23/2021 Appointment [facility] Card[facility] Re[facility] Start: 07-23-2021 End: 07-23-2021 Patient encounter procedure 07/23/2021 Appointment [facility] Card[facility] Start: 07-21-2021 End: 07-21-2021 Patient encounter procedure 07/21/2021 Appointment [facility] Card[facility] Re[facility] Start: 07-17-2021 End: 07-17-2021 Patient encounter procedure 07/17/2021 Appointment [facility] Card[facility] Re[facility] Start: 07-16-2021 End: 07-16-2021 Patient encounter procedure 07/16/2021 Appointment [facility] Rehabilitation [facility] Card[facility] Re[facility] Start: 07-14-2021 End: 07-14-2021 Patient encounter procedure 07/14/2021 Appointment [facility]iac Rehabilitation [facility] Card[facility] Re[facility] Start: 07-10-2021 End: 07-10-2021 Patient encounter procedure 07/10/2021 Appointment [facility]iac Rehabilitation [facility] Card[facility] Re[facility] Start: 07-09-2021 End: 07-09-2021 Patient encounter procedure 07/09/2021 Appointment [facility]iac Rehabilitation [facility] Cardiac Re[facility] Start: 07-07-2021 End: 07-07-2021 Patient encounter procedure 07/07/2021 Appointment [facility]iac Rehabilitation [facility] Cardiac Rehab Start: 07-03-2021 End: 07-03-2021 Patient encounter procedure 07/03/2021 Appointment [facility] Rehabilitation [facility] Cardiac Re[facility] Start: 07-02-2021 End: 07-02-2021 Patient encounter procedure 07/02/2021 Appointment [facility] Card[facility] Re[facility] Start: 06-30-2021 End: 06-30-2021 Patient encounter procedure 06/30/2021 Appointment [facility]iac Rehabilitation [facility] Card[facility] Re[facility] Start: 06-26-2021 End: 06-26-2021 Patient encounter procedure 06/26/2021 Appointment [facility]iac Rehabilitation [facility] Card[facility] Re[facility] Start: 06-25-2021 End: 06-25-2021 Patient encounter procedure 06/25/2021 Appointment [facility]iac Rehabilitation [facility] Card[facility] Re[facility] Start: 06-23-2021 End: 06-23-2021 Patient encounter procedure 06/23/2021 Appointment [facility] Card[facility] Start: 06-19-2021 End: 06-19-2021 Patient encounter procedure 06/19/2021 Appointment [facility] Card[facility] Re[facility] Start: 06-18-2021 End: 06-18-2021 Patient encounter procedure 06/18/2021 Appointment [facility] Card[facility] Start: 06-16-2021 End: 06-16-2021 Patient encounter procedure 06/16/2021 Appointment [facility] Card[facility] Re[facility] Start: 06-12-2021 End: 06-12-2021 Patient encounter procedure 06/12/2021 Appointment [facility] Card[facility] Start: 06-11-2021 End: 06-11-2021 Patient encounter procedure 06/11/2021 Appointment [facility] Card[facility] Re[facility] Start: 06-09-2021 End: 06-09-2021 Patient encounter procedure 06/09/2021 Appointment [facility] Card[facility] Re[facility] Start: 06-05-2021 End: 06-05-2021 Patient encounter procedure 06/05/2021 Appointment [facility] Card[facility] Re[facility] Start: 06-04-2021 End: 06-04-2021 Patient encounter procedure 06/04/2021 Appointment [facility] Card[facility] Re[facility] Start: 06-02-2021 End: 06-02-2021 Patient encounter procedure 06/02/2021 Appointment [facility] Card[facility] Re[facility] Start: 05-29-2021 End: 05-29-2021 Patient encounter procedure 05/29/2021 Appointment [facility] Card[facility] Re[facility] Start: 05-28-2021 Influenza vaccination Flu vaccine (# 1) [employer] Phone: Start: 05-28-2021 End: 05-28-2021 Patient encounter procedure 05/28/2021 Appointment [facility] Cardiac Rehab Start: 05-26-2021 End: 05-26-2021 Patient encounter procedure 05/26/2021 Appointment [facility] Card[facility] Re[facility] Start: 05-22-2021 End: 05-22-2021 Patient encounter procedure 05/22/2021 Appointment [facility] Card[facility] Re[facility] Start: 05-21-2021 End: 05-21-2021 Patient encounter procedure 05/21/2021 Appointment [facility] Card[facility] Re[facility] Start: 05-19-2021 End: 05-19-2021 Patient encounter procedure 05/19/2021 Appointment [facility] Card[facility] Re[facility] Start: 05-15-2021 End: 05-15-2021 Patient encounter procedure 05/15/2021 Appointment [facility] Card[facility] Re[facility] Start: 05-14-2021 End: 05-14-2021 Patient encounter procedure 05/14/2021 Appointment [facility] Card[facility] Re[facility] Start: 05-12-2021 End: 05-12-2021 Patient encounter procedure 05/12/2021 Appointment [facility] Card[facility] Re[facility] Start: 05-08-2021 End: 05-08-2021 Patient encounter procedure 05/08/2021 Appointment [facility] Card[facility] Start: 05-07-2021 End: 05-07-2021 Patient encounter procedure 05/07/2021 Appointment [facility] Card[facility] Re[facility] Start: 05-05-2021 End: 05-05-2021 Patient encounter procedure 05/05/2021 Appointment [facility] Card[facility] Start: 05-01-2021 End: 05-01-2021 Patient encounter procedure 05/01/2021 Appointment [facility] Card[facility] Start: 04-30-2021 End: 04-30-2021 Patient encounter procedure 04/30/2021 Appointment [facility] Card[facility] Start: 04-28-2021 End: 04-28-2021 Patient encounter procedure 04/28/2021 Appointment [facility] Rehabilitation [facility] Card[facility] Start: 04-24-2021 End: 04-24-2021 Patient encounter procedure 04/24/2021 Appointment [facility] Card[facility] Start: 04-23-2021 End: 04-23-2021 Patient encounter procedure 04/23/2021 Appointment Cardiac Rehabilitation [facility] Card[facility] Re[facility] Start: 04-21-2021 End: 04-21-2021 Patient encounter procedure 04/21/2021 Appointment Cardiac Rehabilitation [facility] Card[facility] Re[facility] Start: 04-17-2021 End: 04-17-2021 Patient encounter procedure 04/17/2021 Appointment Card[facility] Rehabilitation [facility] Card[facility] Re[facility] Start: 04-16-2021 End: 04-16-2021 Patient encounter procedure 04/16/2021 Appointment Cardiac Rehabilitation [facility] Card[facility] Re[facility] Start: 04-14-2021 End: 04-14-2021 Patient encounter procedure 04/14/2021 Appointment Cardiac Rehabilitation [facility] Cardiac Re[facility] Start: 04-10-2021 End: 04-10-2021 Patient encounter procedure 04/10/2021 Appointment [facility] Cardiac Rehab Start: 2012 Screening for malign ant neoplasm of breast Breast cancer screen [employer] Phone: Start: 2012 Shingles Vaccine (1 of 2) Shingles Vaccine (1 of 2) [employer] Phone: Start: 2007 Screening for malign ant neoplasm of colon Colon cancer screen colonoscopy [employer] Phone: Start: 2002 Diabetes screen Diabetes screen [employer] Phone: Start: 1992 Screening for malign ant neoplasm of cervix [employer] Phone: Start: 1983 Screening for malign ant neoplasm of cervix [employer] Phone: Start: 1981 DTaP/Tdap/Td vaccine (1 - Tdap) DTaP/Tdap/Td vaccine (1 - Tdap) [facility] [email or web address] Phone: Start: 1977 HIV screening HIV screen [facility] Work Phone: Start: 1974 COVID-19 Vaccine (1) COVID-19 Vaccin e (1) [facility] [email or web address] Phone: Start: 1972 Lipid panel Lipid screen [facility] Work Phone: Start: 1968 Pneumococcal 0-64 ye ars Vaccine (1 of 2 - PPSV23) Pneumococcal 0-64 years Vaccine (1 of 2 - PPSV23) [facility] [email or web address] Phone: Start: 1962 Creatinine measurement Creatinine mo nitoring [facility] [email or web address] Phone: Start: 1962 Hepatitis C screening Hepatitis C sc reen [facility] [email or web address] Phone: Start: 1962 Potassium monitoring Potassium monit oring [facility] [email or web address] Phone: CARDIAC PHASE II [facility] Work Phone: Comment on above: Ordered: 05/26/2021 Ordered: 05/28/2021 Ordered: 07/02/2021 Payers Date Payer Category Payer Unknown [id number] 2.16.8 [id number] 1960 Unknown [id number] 2.16.8 40.1.300741.3.579.2.173 1962 Unknown [id number] 2.16.8 40.1.796909.3.579.2.173 1962 Unknown [id number] 2.16.8 40.1.010330.3.579.2.173 1962 Unknown [id number] 2.16.8 40.1.561238.3.579.2.173 1962 Unknown [id number] 2.16.8 40.1.379908.3.579.2.173 1962 Unknown [id number] 2.16.8 40.1.208158.3.579.2.173 1962 Unknown [id number] 2.16.8 40.1.517228.3.579.2.173 1962 Unknown [id number] 2.16.8 40.1.882816.3.579.2.173 1962 Unknown [id number] 2.16.8 40.1.618662.3.579.2.173 1962 Unknown [id number] 2.16.8 40.1.304948.3.579.2.173 1962 Unknown [id number] 2.16.8 40.1.424213.3.579.2.173 1962 Unknown [id number] 2.16.8 40.1.527271.3.579.2.173 1962 Unknown [id number] 2.16.8 40.1.442913.3.579.2.173 1962 Unknown [id number] 2.16.8 40.1.843557.3.579.2.173 1962 Unknown [id number] 2.16.8 40.1.968854.3.579.2.173 1962 Unknown [id number] 2.16.8 40.1.239372.3.579.2.173 1962 Unknown [id number] 2.16.8 40.1.395522.3.579.2.173 1962 Unknown [id number] 2.16.8 40.1.714356.3.579.2.173 1962 Unknown [id number] 2.16.8 40.1.738405.3.579.2.173 1962 Unknown [id number] 2.16.8 40.1.919171.3.579.2.173 1962 Unknown [id number] 2.16.8 40.1.911238.3.579.2.173 1962 Unknown [id number] 2.16.8 40.1.785748.3.579.2.173 1962 Unknown [id number] 2.16.8 40.1.754426.3.579.2.173 1962 Unknown [id number] 2.16.8 40.1.533640.3.579.2.173 1962 Unknown [id number] 2.16. 840.1.606602.3.579.2.356 1962 Unknown [id number] 2.16. 840.1.928592.3.579.2.356 1962 Unknown [id number] 2.16. 840.1.980759.3.579.2.356 1962 Unknown [id number] 2.16.84 0.1.910355.3.579.2.593 1962 Unknown [id number] 2.16.84 0.1.252864.3.579.2.593 1962 Unknown [id number] 2.16.84 0.1.841103.3.579.2.593 1962 Unknown [id number] 2.16.84 0.1.959233.3.579.2.593 1959 Medicaid [id number] 1959 Unknown [id number] Unknown Social History Date Type Detail Facility Start: 04-08-2021 [facility] day [facility]oker [employer] Phone: History of tobacco use Cigarette Smoker [employer] Start: 04-08-2021 Cigarettes smoked current (pack per day) - Reported [employer] Phone: Comment on above: POP DAILY; 6 CIGS A DAY; Start: 04-08-2021 Tobacco use and exposure Never used [facility] Start: 04-08-2021 Alcohol intake Ex-drinker (finding) [employer] Work Phone: Start: 04-08-2021 Tobacco Comment 2 cigs a day [facility] Work Phone: Start: 1960 Sex Assigned At Not on file [facility] Phone: History of Present illness Narrative 04-08-2021 Dana Romero RN - 04/08/2021 11:00 AM EDT Note Date & Type Note Facility 04-08-2021 History of Present illness Narrative Cardiac Rehab Initial History and Assessment Fausto Shekhar 1960 04/08/2021 Primary Diagnosis: s/p PTCA Living Will: No On File: N/A 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 *If greater than 5 symptoms listed, child protective services social worker notified. Cardiac Rehab Pre - [...] daily -smoking cessation documented in this encounter [employer] Phone: Summary Purpose Family History No Family History Records FoundUnknown Family Member Name Dates Details FH: diabetes mellitus: Eva r, Father(V18.0, Z83.3) Status:Active Family history of malignant neoplasm: Mother, Father(V16.9, Z80.9) Status:Active Heart problem: MotherAnel r Status:Active Unknown Family Member Name Dates Details FH: diabetes mellitus: Mikele r, Father(V18.0, Z83.3) Status:Active Family history of malignant neoplasm: Mother, Father(V16.9, Z80.9) Status:Active Heart problem: Mother Fatbryant r Status:Active Unknown Family Member Name Dates Details FH: diabetes mellitus: Mikele r, Father(V18.0, Z83.3) Status:Active Family history of malignant neoplasm: Mother, Father(V16.9, Z80.9) Status:Active Heart problem: Mother, Fathe r Status:Active Unknown Family Member Name Dates Details FH: diabetes mellitus: Mikele r, Father(V18.0, Z83.3) Status:Active Family history of malignant neoplasm: Mother, Father(V16.9, Z80.9) Status:Active Heart problem: Mother, Fathe r Status:Active Advance Directives No Advanced Directives [...] for follow-up. She had inferior ST elevation [place] with primary revascularization of the RCA in [...] She has a history of previous inferior [place] in February 2021 (late presenting [place]) with PCI of the RCA at that [...] section and content) DATE CREATED AUTHOR 03/22/2018 [facility] DATE CREATED AUTHOR AUTHOR'S ORGANIZ ATION 04/18/2018 [facility] DATE CREATED AUTHOR AUTHOR'S ORGANIZ ATION 04/18/[address] [facility] [place] [facility] DATE CREATED AUTHOR AUTHOR'S ORGANIZ ATION 04/08/2021 [facility] DATE CREATED AUTHOR AUTHOR'S ORGANIZ ATION 08/21/2021 [facility] DATE CREATED AUTHOR AUTHOR'S ORGANIZ ATION 10/19/2021 [facility] DATE CREATED AUTHOR AUTHOR'S ORGANIZ ATION 10/06/2022 [facility] DATE CREATED AUTHOR AUTHOR'S ORGANIZ ATION 10/07/2022 [employer] DATE CREATED AUTHOR AUTHOR'S ORGANIZ ATION 01/21/2023 [facility] FOR RECORDS PERTAINING TO PATIENTS [...] BE BASED ON THE PRIMARY CLINICAL RECORDS. [facility]. provides no warranty or guarantee of the accuracy or completeness of information in this document.
[2023-11-24 10:43] LABS: Basophils Percent Auto 0.4 % (0.2-2.0); Eosinophils Absolute Auto 0.1 10^3/uL (0.0-0.7); Eosinophils Percent Auto 1.1 % (0.9-7.0); Hematocrit 47.2 % (36.0-48.0); Hemoglobin 14.9 g/dL (12.0-16.0); Immature Granulocytes Abs Auto 0.03 10^3/uL (0.00-0.03); Immature Granulocytes Pct Auto 0.3 % (0.0-0.5); Lymphocytes Absolute Auto 2.6 10^3/uL (1.2-3.8); Lymphocytes Percent Auto 28.8 % (20.5-60.0); Mean Corpuscular HGB Conc 31.6 g/dL (29.9-35.2); Mean Corpuscular Hemoglobin 29.9 pg (26.7-34.0); Mean Corpuscular Volume 94.8 fL (81.0-99.0); Mean Platelet Volume 11.4 fL (9.5-13.5); Monocytes Absolute Auto 0.9 10^3/uL (0.3-0.8); Monocytes Percent Auto 10.1 % (1.7-12.0); Neutrophils Absolute Auto 5.3 10^3/uL (1.4-6.5); Neutrophils Percent Auto 59.3 % (43.0-75.0); Platelet Count 243 10^3/uL (150-450); Red Blood Count 4.98 10^6/uL (4.20-5.40)
[2023-11-24 11:11] LABS: Bilirubin Urine NEGATIVE (NEGATIVE); Blood Urine LARGE (NEGATIVE); Clarity Urine CLEAR (CLEAR); Glucose Urine UA >=1000 mg/dL (NEGATIVE); Ketones Urine NEGATIVE (NEGATIVE); Leukocyte Esterase Urine SMALL (NEGATIVE); Nitrite Urine NEGATIVE (NEGATIVE); Protein Urine TRACE mg/dL (NEG/TRACE); Specific Gravity Urine 1.015 (1.005-1.025); pH Urine 6.5 (5.0-9.0)
[2023-11-24 11:16] LABS: Color Urine YELLOW (YELLOW); Urine Microscopic Indicated YES
[2023-11-24 11:19] LABS: Bacteria Urine SMALL #/HPF (NONE SEEN); Mucus Urine NONE SEEN (NONE SEEN); RBC Urine 20-50 #/HPF (0-2); Squamous Epithelial Cell Urine FEW #/LPF (NONE/RARE)
[2023-11-24 11:20] LABS: Cast Seen? NONE SEEN #/LPF (NONE SEEN); Crystals Seen? None Seen #/HPF (None Seen)
[2023-11-24 12:13] LABS: Creatinine Urine Random 177.03 mg/dL (20.00-300.00); Microalbum Creatinine Ratio Ur 25.4 mg/g (0.0-29.9); Microalbumin Urine Random 4.5 mg/dL (<=30.0)
[2023-11-24 12:21] LABS: Alanine Aminotransferase 24 U/L (14-59); Albumin Globulin Ratio 0.6; Albumin Level 2.9 g/dL (3.4-5.0); Alkaline Phosphatase 182 U/L (46-116); Anion Gap 10.1; Aspartate Amino Transferase 21 U/L (15-37); BUN Creatinine Ratio 17.6; Bilirubin Total 0.6 mg/dL (0.2-1.0); Calcium 8.8 mg/dL (8.5-10.1); Carbon Dioxide 31.8 mmol/L (21.0-32.0); Chloride 102 mmol/L (98-107); Chol HDL Ratio 4.2; Cholesterol 157 mg/dL (<=200); Estimated GFR (African America >60 (>=60); Estimated GFR (Non-African Ame >60 (>=60); Globulin 4.9 g/dL; Glucose 112 mg/dL (74-106); HDL Cholesterol 37 mg/dL (40-60); Sodium 141 mmol/L (136-145); TSH W/ REFLEX FT4 1.955 uIU/mL (0.358-3.740); Total Protein 7.8 g/dL (6.4-8.2); Triglycerides 107 mg/dL (<=150); VLDL CHOLESTEROL 21.4 mg/dL
[2023-11-24 13:21] LABS: Estimated Average Glucose 137 mg/dL; Glycohemoglobin A1C 6.4 % (4.5-6.2)
[2023-11-24 14:40] LABS: Potassium 2.9 mmol/L (3.5-5.1)
== END 2023-11-24 10:22 | disposition home or self-care (01) ==
LOC: LAB 10:22
PROVIDERS: PCP Nurse Practitioner; Visit Provider Nurse Practitioner
DX: K21.9 Gastro-esophageal reflux disease without esophagitis (principal); E11.9 Type 2 diabetes mellitus without complications; E03.8 Other specified hypothyroidism; I25.10 Atherosclerotic heart disease of native coronary artery without angina pectoris
CPT/HCPCS: 36415; 80053; 80061; 81001; 82043; 82570; 83036; 84443; 85025

== ENCOUNTER 2024-03-09 11:33 | Outpatient (OUT) | payer OTHER, SELFPAY ==
--- OUTSIDE RECORDS SUMMARY | 2024-03-09 11:54 | XMS_ITS | CCD ---
Author Organization [facility] Care Team Providers Care Steel Manager Name Role Phone YANELIS, ESEQUIEL C Unavailable [...] Unavailable THOMAS DELGADILLO Unavailable Unavailmaddie Mills MD, [facility] Primary Care Provider ROSS, DARA [...] Care Unavailable ROSS, DARA Primary Care Unavailable Ross, Dara E Unavailable Unavailable Unavailable Aichholz, Veronique Randee Unavailable Felix, Dr. Rafael Acevedo Attending Pelon [place], Dr. Rafael Acevedo Referring [place], Dr. Dara Chino Primary Care Unavailab citlalli [place], Dr. Rafael Acevedo Attending [place], Dr. Dara Chino Primary Care Unavailab citlalli [place], Dr. Rafael Acevedo Attending [place], Dr. Rafael Acevedo Referring [place], Dr. Dara Chino Primary Care Unavailab le SAMSA ., OLIVER Admitting Unavailable SAMSA ., OLIVER Attending Unavailable AICHHOLZ, BAND EDGER VERONIQUE Primary Care Unavailable DR HANNAH MOORE Consulting Unavailable SAMSA ., OLIVER Consulting Unavailable AICHHOLZ, BAND EDGER VERONIQUE Admitting Unavailable AICHHOLZ, BAND EDGER VERONIQUE Attending Unavailable AICHHOLZ, BAND EDGER VERONIQUE Primary Care Unavailable AICHHOLZ, BAND EDGER VERONIQUE Consulting Unavailable AICHHOLZ, BAND EDGER VERONIQUE Admitting Unavailable AICHHOLZ, BAND EDGER VERONIQUE Attending Unavailable AICHHOLZ, BAND EDGER VERONIQUE Primary Care Unavailable AICHHOLZ, BAND EDGER VERONIQUE Consulting Unavailable AICHHOLZ, BAND EDGER VERONIQUE Primary Care Unavailable MARIANO SAAB Admitting Unavailable MARIANO SAAB Attending Unavailable SHILA CALLOWAY Consulting Unavailabl e PROVIDER, UNKNOWN Admitting Unavailable LILLIAN QUICK Attending Unavailable Allergies Allergy Classification Reported Allergen(s) Allergy Type Date of Onset Reaction(s) Facility Sulfonamides (antibiotic) (6 sources) Sulfonamides (Antibiotic) Drug Allergy 1 [facility] (3 sources) Sulfonamides (Antibiotic); Translations: [SULFA (SULFONAMIDE ANTIBIOTICS)] Propensity to adverse reactions to drug (disorder) 7 [facility] Repository (13 sources) Sulfonamides (Antibiotic) Propensity to adverse reactions to drug 1 [facility] (4 sources) Sulfamethoxazole; Translations: [sulfa] Drug Allergy Itching [facility] 250 DO Work Phone: (1 source) Sulfonamides (Antibiotic) Drug allergy (disorder) 3 [facility] Repository Medications Current Medications Medication Drug Class(es) [...] Drug Class(es) Dates Sig (Normalized) Sig (Original) [id number] 200 actuat albuterol 0.09 mg/actuat metered dose [...] [Coronary atherosclerosis of unspecified type of vessel, [place] or graft] Chronic Diabetes mellitus without complication [...] 03-17-2018 Chronic Other aftercare (1 source) Other snf (current) drug therapy; Translations: [OTH WOOL HAT FLANGER CURRENT DRUG THERAPY] Onset: 01-20-2023 Episodic Other [...] (F17.200) 6 CIGS A DAY History of [place] (myocardial infarction) (412) (I25.2) Benign essential hypertension [...] we can help. You may also call 5-117-UJFU-NOW for free resources and assistance.; Status:Complete - Retrospective Authorization; Done: [id number] Tobacco Use Screening; Status:Complete; Done: [id number] Patient Instructions Please bring all medicines, vitamins, [...] She has a history of previous inferior [place] in February 2021 (late presenting [place]) with PCI of the RCA at that [...] DAILY Current (more content not included)... [facility] Tobacco Screening.on 023 Adult depression screening assessment No [facility] 250 DO Work Phone: Fall risk assessment c) Not medically indicated [facility] [place] [facility] 250 DO Work Phone: Tobacco use status [facility] a) Yes -[facility] 250 DO Work Phone: Tobacco Screening. Yes [facility] 250 DO Work Phone: CT LUNG CANCER [...] HANNAH MOORE Date: 2022-09-01 10:57 Normal [facility] CBC AUTO DIFFon 06-17-2022 BASO # 0.1 103/ul Normal 0.0-0.1 [facility] Comment on above: Performed By: #### C BC #### [facility] [address] [place] [address] Dr. Oneal Vieyra Basophils/100 WBC (Bld) 0.5 % Normal 0.2-2.0 [facility] Comment on above: Performed By: #### C BC #### [facility] [address] [place] [address] Dr. Oneal Vieyra EO # 0.1 103/ul Normal 0.0-0.7 [facility] Comment on above: Performed By: #### C BC #### [facility] [address] [place] [address] Dr. Oneal Vieyra Eosinophils/100 WBC (Bld) 1.3 % Normal 0.9-7.0 [facility] Comment on above: Performed By: #### C BC #### [facility] [address] [place] [address] Dr. Oneal Vieyra Erythrocyte distribution width (RBC) [Ratio] 13.4 % Normal 11.0-15.0 [facility] Comment on above: Performed By: #### C BC #### [facility] [address] [place] [address] Dr. Oneal Vieyra Hematocrit (Bld) [Volume fraction] 51.8 % Critically high 36.0-48.0 [facility] Comment on above: Performed By: #### C BC #### [facility] [address] [place] [address] Dr. Oneal Vieyra Hemoglobin (Bld) [Mass/Vol] 16.1 g/dL Critically high 12.0-16.0 [facility] Comment on above: Performed By: #### C BC #### [facility] [address] [place] [address] Dr. Oneal Vieyra IG # 0.03 10e3/ul Normal 0.00-0.03 [facility] Comment on above: Performed By: #### C BC #### [facility] [address] [place] [address] Dr. Oneal Vieyra IG % 0.3 % Normal 0.0-0.5 [facility] Comment on above: Performed By: #### C BC #### [facility] [address] [place] [address] Dr. Oneal Vieyra LYMPH # 3.7 103/ul Normal 1.2-3.8 [facility] Comment on above: Performed By: #### C BC #### [facility] [address] [place] [address] Dr. Oneal Vieyra Lymphocytes/100 WBC (Bld) 34.5 % Normal 20.5-60.0 [facility] Comment on above: Performed By: #### C BC #### [facility] [address] [place] [address] Dr. Oneal Vieyra MANUAL DIFF REQ NO Normal [facility] Comment on above: Performed By: #### C BC #### [facility] [address] [place] [address] Dr. Oneal Vieyra MCH (RBC) [Entitic mass] 29.7 pg Normal 26.7-34.0 [facility] Comment on above: Performed By: #### C BC #### [facility] [address] [place] [address] Dr. Oneal Vieyra MCHC (RBC) [Mass/Vol] 31.1 g/dL Normal 29.9-35.2 [facility] Comment on above: Performed By: #### C BC #### [facility] [address] [place] [address] Dr. Oneal Vieyra MCV (RBC) [Entitic vol] 95.6 fL Normal 81.0-99.0 [facility] Comment on above: Performed By: #### C BC #### [facility] [address] [place] [address] Dr. Oneal Vieyra MONO # 0.8 103/ul Normal 0.3-0.8 [facility] Comment on above: Performed By: #### C BC #### [facility] [address] [address] [address] Oneal Vieyra Monocytes/100 WBC (Bld) 7.6 % Normal 1.7-12.0 [facility] Comment on above: Performed By: #### C BC #### [facility] [address] [place] [address] Dr. Oneal Vieyra NEUT # 5.9 103/ul Normal 1.4-6.5 [facility] Comment on above: Performed By: #### C BC #### [facility] [address] [place] [address] Dr. Oneal Vieyra Neutrophils/100 WBC (Bld) 55.8 % Normal 43.0-75.0 [facility] Comment on above: Performed By: #### C BC #### [facility] [address] [place] [address] Dr. Oneal Vieyra Platelet mean volume (Bld) [Entitic vol] 12.1 fL Normal 9.5-13.5 [facility] Comment on above: Performed By: #### C BC #### [facility] [address] [place] [address] Dr. Oneal Vieyra PLT 224 103/ul Normal 150-450 [facility] Comment on above: Performed By: #### C BC #### [facility] [address] [place], [place] [id number] Dr. Oneal Vieyra RBC 5.42 106/ul Critically high 4.20-5.40 [facility] Comment on above: Performed By: #### C BC #### [facility] [address] [place] [address] Dr. Oneal Vieyra WBC 10.6 103/ul Normal 4.0-11.0 [facility] Comment on above: Performed By: #### C BC #### [facility] [address] [address] [address] Oneal Vieyra FREE T4on 06-17-2022 Free T4 [Mass/Vol] 0.98 ng/dL Normal 0.76-1.46 [facility] Comment on above: Performed By: #### F T4 #### [facility] [address] [address] [address] Oneal Vieyra GLYCOHEMOGLOBIN A1Con 2021 ADA RECOMMENDATION SEE BELOW Normal [facility] Comment on above: Result Comment: ADA RECOMMENDED LIMIT 4.0 - 6.0 ADA THERAPEUTIC TARGET < 7.0 ACTION SUGGESTED > 7.0 Performed By: #### A 1C #### [facility] [address] [place] [address] Dr. Oneal Vieyra Glucose [Mass/Vol] 146 mg/dL Normal [facility] Comment on above: Performed By: #### A 1C #### [facility] [address] [place] [address] Dr. Oneal Vieyra HbA1c (Bld) [Mass fraction] 6.7 % Critically high 4.5-6.2 [facility] Comment on above: Performed By: #### A 1C #### [facility] [address] [place] [address] Dr. Oneal Vieyra LIPID PROFILEon 06-17-2022 CHOL-HDL RATIO NORM SEE BELOW Normal [facility] Comment on above: Result Comment: 3.3 - 4.4 LOW RISK 4.4 - 7.1 AVERAGE RISK 7.1 - 11.0 MODERATE RISK >11.0 HIGH RISK Performed By: #### L IPID, TSH, CMP #### [facility] [address] [place] [address] Dr. Oneal Vieyra Cholesterol [Mass/Vol] 161 mg/dL Normal <=200 [facility] Comment on above: Performed By: #### L IPID, TSH, CMP #### [facility] [address] [place] [address] Dr. Oneal Vieyra Cholesterol in HDL [Mass/Vol] 33 mg/dL Critically low 40-60 [facility] Comment on above: Performed By: #### L IPID, TSH, CMP #### [facility] [address] [address] [address] Oneal Vieyra Cholesterol in LDL [Mass/Vol] 63.8 mg/dL Normal [facility] Comment on above: Performed By: #### L IPID, TSH, CMP #### [facility] [address] [address] [address] Oneal Vieyra Cholesterol.total/ Cholesterol in HDL [Mass ratio] 4.9 {ratio} Normal [facility] Comment on above: Performed By: #### L IPID, TSH, CMP #### [facility] [address] [place] [address] Dr. Oneal Vieyra HDL NORMAL > or = 60 mg/dl - LO W CARDIOVASCULAR RISK <40 mg/dl - HIGH CARDIOVASCULAR RISK Normal [facility] Comment on above: Performed By: #### L IPID, TSH, CMP #### [facility] [address] [place] [address] Dr. Oneal Vieyra LDL CALC NORMAL SEE BELOW Normal [facility] Comment on above: Result Comment: <100 mg/dl OPTIMAL 100 - 129 mg/dl NEAR OR ABOVE OPTIMAL 130 - 159 mg/dl BORDERLINE HIGH 160 - 189 mg/dl HIGH >190 mg/dl VERY HIGH Performed By: #### L IPID, TSH, CMP #### [facility] [address] [address] [address] Oneal Vieyra Triglyceride [Mass/Vol] 321 mg/dL Critically high <=150 [facility] Comment on above: Performed By: #### L IPID, TSH, CMP #### [facility] [address] [address] [address] Oneal Vieyra VLDL CALC 64.2 mg/dL Normal [facility] Comment on above: Performed By: #### L IPID, TSH, CMP #### [facility] [address] [address] [address] Oneal Vieyra PROF 14(COMP METB)on 022 Albumin [Mass/Vol] 3.7 g/dL Normal 3.4-5.0 [facility] Comment on above: Performed By: #### L IPID, TSH, CMP #### [facility] [address] [place] [address] Dr. Oneal Vieyra Albumin/Globulin [Mass ratio] 0.9 {ratio} Normal [facility] Comment on above: Performed By: #### L IPID, TSH, CMP #### [facility] [address] [place] [address] Dr. Oneal Vieyra ALP [Catalytic activity/Vol] 171 U/L Critically high 46-116 [facility] Comment on above: Performed By: #### L IPID, TSH, CMP #### [facility] [address] [place] [address] Dr. Oneal Vieyra ALT [Catalytic activity/Vol] 19 U/L Normal 14-59 [facility] Comment on above: Performed By: #### L IPID, TSH, CMP #### [facility] [address] [place] [address] Dr. Oneal Vieyra Anion gap [Moles/Vol] 5.6 mmol/L Normal [facility] Comment on above: Performed By: #### L IPID, TSH, CMP #### [facility] [address] [place] [address] Dr. Oneal Vieyra AST [Catalytic activity/Vol] 13 U/L Critically low 15-37 [facility] Comment on above: Performed By: #### L IPID, TSH, CMP #### [facility] [address] [place] [address] Dr. Oneal Vieyra Bilirubin [Mass/Vol] 0.5 mg/dL Normal 0.2-1.0 [facility] Comment on above: Performed By: #### L IPID, TSH, CMP #### [facility] [address] [place] [address] Dr. Oneal Vieyra Calcium [Mass/Vol] 9.1 mg/dL Normal 8.5-10.1 [facility] Comment on above: Performed By: #### L IPID, TSH, CMP #### [facility] [address] [place] [address] Dr. Oneal Vieyra Chloride [Moles/Vol] 105 mmol/L Normal 98-107 [facility] Comment on above: Performed By: #### L IPID, TSH, CMP #### [facility] [address] [address] [address] Oneal Vieyra CO2 [Moles/Vol] 35.3 mmol/L Critically high 21.0-32.0 [facility] Comment on above: Performed By: #### L IPID, TSH, CMP #### [facility] [address] [address] [address] Oneal Vieyra Creatinine [Mass/Vol] 0.88 mg/dL Normal 0.55-1.02 [facility] Comment on above: Performed By: #### L IPID, TSH, CMP #### [facility] [address] [address] [address] Oneal iVeyra EGFR-AF PAKISTANI >60 Normal >=60 [facility] Comment on above: Performed By: #### L IPID, TSH, CMP #### [facility] [address] [address] [address] Oneal Vieyra EGFR-NON AF PAKISTANI >60 Normal >=60 [facility] Comment on above: Performed By: #### L IPID, TSH, CMP #### [facility] [address] [address] [address] Oneal Vieyra Globulin (S) [Mass/Vol] 4.3 g/dL Normal [facility] Comment on above: Performed By: #### L IPID, TSH, CMP #### [facility] [address] [address] [address] Oneal Vieyra Glucose [Mass/Vol] 93 mg/dL Normal 74-106 [facility] Comment on above: Performed By: #### L IPID, TSH, CMP #### [facility] [address] [address] [address] Oneal iVeyra Potassium [Moles/Vol] 3.9 mmol/L Normal 3.5-5.1 [facility] Comment on above: Performed By: #### L IPID, TSH, CMP #### [facility] [address] [place] [address] Dr. Oneal Vieyra Protein [Mass/Vol] 8.0 g/dL Normal 6.4-8.2 [facility] Comment on above: Performed By: #### L IPID, TSH, CMP #### [facility] [address] [place] [address] Dr. Oneal Vieyra Sodium [Moles/Vol] 142 mmol/L Normal 136-145 [facility] Comment on above: Performed By: #### L IPID, TSH, CMP #### [facility] [address] [place] [address] Dr. Oneal Vieyra Urea nitrogen [Mass/Vol] 15.0 mg/dL Normal 7.0-18.0 [facility] Comment on above: Performed By: #### L IPID, TSH, CMP #### [facility] [address] [place] [address] Dr. Oneal Vieyra Urea nitrogen/Creatinin e [Mass ratio] 17.0 mg/mg Normal [facility] Comment on above: Performed By: #### L IPID, TSH, CMP #### [facility] [address] [place] [address] Dr. Oneal Vieyra TSHon 06-17-2022 TSH 9.403 uIU/mL Critically high 0.358-3.740 [facility] Comment on above: Performed By: #### L IPID, TSH, CMP #### [facility] [address] [place] [address] Dr. Oneal Vieyra UA RANDOM W/MICROSCOPICon BACTERIA NONE SEEN Normal NONE SEEN [facility] Comment on above: Performed By: #### U AMIC #### [facility] [address] [place] [address] Dr. Oneal Vieyra Bilirubin Ql (U) Negative Normal NEGATIVE [facility] Comment on above: Performed By: #### U AMIC #### [facility] [address] [place] [address] Dr. Oneal Vieyra CAST NONE SEEN Normal NONE SEEN [facility] Comment on above: Performed By: #### U AMIC #### [facility] [address] [address] [address] Oneal Vieyra Clarity (U) CLEAR Normal CLEAR [facility] Comment on above: Performed By: #### U AMIC #### [facility] [address] [place] [address] Dr. Oneal Vieyra Color (U) LT. YELLOW Normal YELLOW [facility] Comment on above: Performed By: #### U AMIC #### [facility] [address] [address] [address] Oneal Vieyra Crystals LM Nom (Urine sed) NONE SEEN Normal NONE SEEN [facility] Comment on above: Performed By: #### U AMIC #### [facility] [address] [place] [address] Dr. Oneal Vieyra Epithelial cells LM Ql (Urine sed) FEW Abnormal NONE SEEN /RARE [facility] Comment on above: Performed By: #### U AMIC #### [facility] [address] [address] [address] Oneal Vieyra Glucose Ql (U) >1000 Abnormal NEGATIVE [facility] Comment on above: Performed By: #### U AMIC #### [facility] [address] [place] [address] Dr. Oneal Vieyra Hemoglobin Ql (U) SMALL Abnormal NEGATIVE [facility] Comment on above: Performed By: #### U AMIC #### [facility] [address] [address] [address] Oneal Vieyra Ketones Ql (U) Negative Normal NEGATIVE [facility] Comment on above: Performed By: #### U AMIC #### [facility] [address] [place] [address] Dr. Oneal Vieyra LEUKOCYTES Negative Normal NEGATIVE [facility] Comment on above: Performed By: #### U AMIC #### [facility] [address] [place] [address] Dr. Oneal Vieyra MUCOUS NONE SEEN Normal NONE SEEN [facility] Comment on above: Performed By: #### U AMIC #### [facility] [address] [place] [address] Dr. Oneal Vieyra Nitrite Ql (U) Negative Normal NEGATIVE [facility] Comment on above: Performed By: #### U AMIC #### [facility] [address] [place] [address] Dr. Oneal Vieyra pH (U) 6.0 [pH] Normal 5-9 [facility] Comment on above: Performed By: #### U AMIC #### [facility] [address] [place] [address] Dr. Oneal Vieyra RBC 0-2 Normal 0-2 [facility] Comment on above: Performed By: #### U AMIC #### [facility] [address] [place] [address] Dr. Oneal Vieyra SPEC GRAVITY <=1.005 Abnormal 1.005-<=1.0 25 [facility] Comment on above: Performed By: #### U AMIC #### [facility] [address] [place] [address] Dr. Oneal Vieyra UA PROTEIN Negative Normal NEGATIVE/ TRACE [facility] Comment on above: Performed By: #### U AMIC #### [facility] [address] [place] [address] Dr. Oneal Vieyra Urobilinogen Qn (U) 0.2 {Ashwini'U}/dL Normal 0.2 - 1.0 [facility] Comment on above: Performed By: #### U AMIC #### [facility] [address] [place] [address] Dr. Oneal Vieyra WBC NONE SEEN Normal NONE SEEN [facility] Comment on above: Performed By: #### U AMIC #### [facility] [address] [place] [address] Dr. Oneal Vieyra MICROALBUMIN, RAND URon - mALB <1.3 Normal <=30.0 [facility] Comment on above: Performed By: #### M ALBR #### [facility] [address] [place] [address] Dr. Oneal Vieyra UA RANDOM W/MICROSCOPICon BACTERIA NONE SEEN Normal NONE SEEN [facility] Comment on above: Performed By: #### U AMIC #### [facility] [address] [address] [address] Oneal Vieyra Bilirubin Ql (U) Negative Normal NEGATIVE [facility] Comment on above: Performed By: #### U AMIC #### [facility] [address] [address] [address] Oneal Vieyra CAST NONE SEEN Normal NONE SEEN [facility] Comment on above: Performed By: #### U AMIC #### [facility] [address] [address] [address] Oneal Vieyra Clarity (U) CLEAR Normal CLEAR [facility] Comment on above: Performed By: #### U AMIC #### [facility] [address] [address] [address] Oneal Vieyra Color (U) YELLOW Normal YELLOW [facility] Comment on above: Performed By: #### U AMIC #### [facility] [address] [address] [address] Oneal Vieyra Crystals LM Nom (Urine sed) NONE SEEN Normal NONE SEEN [facility] Comment on above: Performed By: #### U AMIC #### [facility] [address] [address] [address] Oneal Vieyra Epithelial cells LM Ql (Urine sed) FEW Abnormal NONE SEEN /RARE [facility] Comment on above: Performed By: #### U AMIC #### [facility] [address] [address] [address] Oneal Vieyra Glucose Ql (U) >1000 Abnormal NEGATIVE [facility] Comment on above: Performed By: #### U AMIC #### [facility] [address] [address] [address] Oneal Vieyra Hemoglobin Ql (U) SMALL Abnormal NEGATIVE [facility] Comment on above: Performed By: #### U AMIC #### [facility] [address] [address] [address] Oneal Vieyra Ketones Ql (U) Negative Normal NEGATIVE [facility] Comment on above: Performed By: #### U AMIC #### [facility] [address] [address] [address] Oneal Vieyra LEUKOCYTES Negative Normal NEGATIVE [facility] Comment on above: Performed By: #### U AMIC #### [facility] [address] [place] [address] Dr. Oneal Vieyra MUCOUS NONE SEEN Normal NONE SEEN [facility] Comment on above: Performed By: #### U AMIC #### [facility] [address] [place] [address] Dr. Oneal Vieyra Nitrite Ql (U) Negative Normal NEGATIVE [facility] Comment on above: Performed By: #### U AMIC #### [facility] [address] [place] [address] Dr. Oneal Vieyra pH (U) 5.5 [pH] Normal 5-9 [facility] Comment on above: Performed By: #### U AMIC #### [facility] [address] [place] [address] Dr. Oneal Vieyra RBC 0-2 Normal 0-2 [facility] Comment on above: Performed By: #### U AMIC #### [facility] [address] [place] [address] Dr. Oneal Vieyra SPEC GRAVITY 1.020 Normal 1.005-<=1.0 25 [facility] Comment on above: Performed By: #### U AMIC #### [facility] [address] [place] [address] Dr. Oneal Vieyra UA PROTEIN Negative Normal NEGATIVE/ TRACE [facility] Comment on above: Performed By: #### U AMIC #### [facility] [address] [place] [address] Dr. Oneal Vieyra Urobilinogen Qn (U) 0.2 {Ashwini'U}/dL Normal 0.2 - 1.0 [facility] Comment on above: Performed By: #### U AMIC #### [facility] [address] [place] [address] Dr. Oneal Vieyra WBC NONE SEEN Normal NONE SEEN [facility] Comment on above: Performed By: #### U AMIC #### [facility] [address] [place] [address] Dr. Oneal Vieyra Office Visit (Cardiology)on 10-16-2021 [...] Instructions By signing my name below, I, Eldon Anthony LPNScribe, attest that this documentation has been prepared [...] for follow-up. She had inferior ST elevation [place] with primary revascularization of the RCA in [...] 16Oct2021 11:41AM Heart Rate65, L Brachial Artery Afebrwkb652, LUE, Sitting Dqinsrvvy09, LUE, Sitting Height5 ft 1 in Gvmxlz850 lb BMI Jwozfvpsaa31.04 kg/m2 BSA Calculated1.71 Tobacco Usea) Yes Patient encouraged to stop using tobacco productsYes Fall Screeningc) Not medically indicated Physical Exam Constitutional: alert and in no acute distress. Neck: neck is supple, symmetric, trachea midline, no masses and no thyromegaly . (more content not included)... Normal [facility] Tobacco Screening.on 022 Fall risk assessment c) Not medically indicated [facility] [place] [facility] [place] [address] DO Work Phone: Tobacco use status CPHS a) Yes [facility] [address] DO Work Phone: Tobacco Screening. Yes [facility] [address] DO Work Phone: Basic Metabolic Panelon 02-26 Calcium [Mass/Vol] 8.6 mg/dL Normal 8.2-10.2 [facility] Comment on above: Performed By: #### C K, BMP, SCAN CBC, PTT, BNP, PT, TROP #### [facility] [address] Chloride [Moles/Vol] 105 mmol/L Normal 95-114 [facility] Comment on above: Performed By: #### C K, BMP, SCAN CBC, PTT, BNP, PT, TROP #### [facility] [address] [id number] [place] CO2 [Moles/Vol] 21.2 mmol/L Low 22.0-30.0 [facility] Comment on above: Performed By: #### C K, BMP, SCAN CBC, PTT, BNP, PT, TROP #### [facility] [address] [id number] [facility] Creatinine [Mass/Vol] 1.26 mg/dL High 0.44-1.03 [facility] Comment on above: Performed By: #### C K, BMP, SCAN CBC, PTT, BNP, PT, TROP #### [facility] [address] Creatinine Clr Calc Pharmacy 43.69 [facility] Comment on above: Result Comment: PERF ORMED BY: [place] [address] PATHOLOGIST MANAGER HOSPITAL[employer] GIA SHAH M.D. Performed By: #### C K, BMP, SCAN CBC, PTT, BNP, PT, TROP #### [facility] [address] Estimated GFR ( [place] 53 [facility] Comment on above: Result Comment: GFR estimated reference range: According to KDOQI guidelines, <60 ml/min/1.73m2 is sufficient to diagnose a patient with chronic kidney disease. Performed By: #### C K, BMP, SCAN CBC, PTT, BNP, PT, TROP #### [facility] [address] Estimated GFR (Non- Am 44 [facility] Comment on above: Performed By: #### C K, BMP, SCAN CBC, PTT, BNP, PT, TROP #### [address] Glucose [Mass/Vol] 116 mg/dL High 70-100 [facility] Comment on above: Result Comment: [place] om Glucose Reference Range is dependent on time and content of last meal. Glucose of more than 200 mg/dL in a nonstressed, ambulatory subject supports the diagnosis of Diabetes Mellitus. ADA recommended reference range Performed By: #### C K, BMP, SCAN CBC, PTT, BNP, PT, TROP #### [address] Potassium [Moles/Vol] 3.3 mmol/L Low 3.5-5.1 [facility] Comment on above: Performed By: #### C K, BMP, SCAN CBC, PTT, BNP, PT, TROP #### [facility] [address] Sodium [Moles/Vol] 139 mmol/L Normal 136-146 [facility] Comment on above: Performed By: #### C K, BMP, SCAN CBC, PTT, BNP, PT, TROP #### [facility] [address] Urea nitrogen [Mass/Vol] 20 mg/dL Normal 9-23 [facility] Comment on above: Performed By: #### C K, BMP, SCAN CBC, PTT, BNP, PT, TROP #### [facility] [address] Creatine Kinaseon 03-21-2021 CK [Catalytic activity/Vol] 87 U/L Normal 22-269 [facility] Comment on above: Performed By: #### C K, BMP, SCAN CBC, PTT, BNP, PT, TROP #### [facility] [address] Creatinine Kinase MBon 03-21 CK.MB [Mass/Vol] 1.6 ng/mL Normal 0.6-6.3 [facility] Comment on above: Performed By: #### C K, BMP, SCAN CBC, PTT, BNP, PT, TROP #### [facility] [address] CKMB Relative Index 1.8 % Normal 0.00-2.50 [facility] Comment on above: Performed By: #### C K, BMP, SCAN CBC, PTT, BNP, PT, TROP #### [facility] [address] ECG 12 lead ECGon 03-21-2021 ECG 12 lead ECG [facility] [place] [address] Electrocardiograph Report Signed Patient: Fausto Corrigan MR#: [id number] 0 : 1960 Acct:[id number] Age/Sex: 60 / F ADM Date: 03/19/21 Loc: Room: [address] [place] [address] Type: DIS IN Attending Dr: Kal Kellogg [...] compared with ECG of 20-MAR-2021 14:36, (Unconfirmed) ND interval has decreased Confirmed by CHRISTA BAEZA DO ([id number]) on 03/21/2021 4:10:41 PM Referred By: Electronically Signed By:CHRISTA BAEZA DO Transcribed By: MUS Dictated By: Christa Baeza DO 03/21/21 0802 Signed By: 03/21/21 1610 Normal [facility] Scan and CBCon 03-21-2021 Basophils (Bld) [#/Vol] 0.1 10*3/uL Normal 0.0-0.2 [facility] Comment on above: Performed By: #### C K, BMP, SCAN CBC, PTT, BNP, PT, TROP #### [facility] [address] Basophils/100 WBC (Bld) 0.5 % Normal . [facility] Comment on above: Performed By: #### C K, BMP, SCAN CBC, PTT, BNP, PT, TROP #### [facility] [address] Eosinophils (Bld) [#/Vol] 0.3 10*3/uL Normal 0.0-0.45 [facility] Comment on above: Performed By: #### C K, BMP, SCAN CBC, PTT, BNP, PT, TROP #### [facility] [address] [place] [address] [place] Eosinophils/100 WBC (Bld) 2.6 % Normal . [facility] Comment on above: Performed By: #### C K, BMP, SCAN CBC, PTT, BNP, PT, TROP #### [facility] [address] [place] [address] [place] Erythrocyte distribution width (RBC) [Ratio] 13.3 % Normal 11.9-15.3 [facility] Comment on above: Performed By: #### C K, BMP, SCAN CBC, PTT, BNP, PT, TROP #### [address] Hematocrit (Bld) [Volume fraction] 39.1 % Normal 34.0-46.4 [facility] Comment on above: Performed By: #### C K, BMP, SCAN CBC, PTT, BNP, PT, TROP #### [address] Hemoglobin (Bld) [Mass/Vol] 13.2 g/dL Normal 11.8-15.4 [facility] Comment on above: Performed By: #### C K, BMP, SCAN CBC, PTT, BNP, PT, TROP #### [address] Lymphocytes (Bld) [#/Vol] 4.6 10*3/uL Normal 1.00-4.8 [facility] Comment on above: Performed By: #### C K, BMP, SCAN CBC, PTT, BNP, PT, TROP #### [address] Lymphocytes/100 WBC (Bld) 37.3 % Normal . [facility] Comment on above: Performed By: #### C K, BMP, SCAN CBC, PTT, BNP, PT, TROP #### [address] MCH (RBC) [Entitic mass] 31.1 pg Normal 24.7-34.3 [facility] Comment on above: Performed By: #### C K, BMP, SCAN CBC, PTT, BNP, PT, TROP #### [address] MCV (RBC) [Entitic vol] 92.2 fL Normal 80-100 [facility] Comment on above: Performed By: #### C K, BMP, SCAN CBC, PTT, BNP, PT, TROP #### [address] Mean Corpuscular HGB Conc 33.8 g/dL Normal 32.0-35.0 [facility] Comment on above: Performed By: #### C K, BMP, SCAN CBC, PTT, BNP, PT, TROP #### [facility] [address] Monocytes (Bld) [#/Vol] 1.0 10*3/uL High 0.0-0.8 [facility] Comment on above: Performed By: #### C K, BMP, SCAN CBC, PTT, BNP, PT, TROP #### [address] Monocytes/100 WBC (Bld) 8.0 % Normal . [facility] Comment on above: Performed By: #### C K, BMP, SCAN CBC, PTT, BNP, PT, TROP #### [address] Neutrophils (Bld) [#/Vol] 6.4 10*3/uL Normal 1.8-7.7 [facility] Comment on above: Performed By: #### C K, BMP, SCAN CBC, PTT, BNP, PT, TROP #### [address] Neutrophils/100 WBC (Bld) 51.6 % Normal . [facility] Comment on above: Performed By: #### C K, BMP, SCAN CBC, PTT, BNP, PT, TROP #### [place] [address] [place] Nucleated RBC/100 WBC (Bld) [Ratio] 0.2 % Normal 0-0.5 [facility] Comment on above: Performed By: #### C K, BMP, SCAN CBC, PTT, BNP, PT, TROP #### [address] Platelet Estimate Normal Normal Normal [facility] Comment on above: Performed By: #### C K, BMP, SCAN CBC, PTT, BNP, PT, TROP #### [place] [address] [place] Platelet mean volume (Bld) [Entitic vol] 9.3 fL Normal 6.3-10.7 [facility] Comment on above: Performed By: #### C K, BMP, SCAN CBC, PTT, BNP, PT, TROP #### [address] Platelet Morphology Normal Normal Normal [facility] Comment on above: Result Comment: PERF ORMED BY: [place] [address] PATHOLOGIST MANAGER HOSPITAL[employer] GIA SHAH M.D. Performed By: #### C K, BMP, SCAN CBC, PTT, BNP, PT, TROP #### [address] Platelets (Bld) [#/Vol] 250 10*3/uL Normal 150-450 [facility] Comment on above: Performed By: #### C K, BMP, SCAN CBC, PTT, BNP, PT, TROP #### [address] RBC (Bld) [#/Vol] 4.24 10*6/uL Normal 3.60-5.00 [facility] Comment on above: Performed By: #### C K, BMP, SCAN CBC, PTT, BNP, PT, TROP #### [address] RBC morphology finding Nom (Bld) Normal Normal [facility] Comment on above: Performed By: #### C K, BMP, SCAN CBC, PTT, BNP, PT, TROP #### [address] WBC (Bld) [#/Vol] 12.3 10*3/uL High 4.5-11.0 [facility] Comment on above: Performed By: #### C K, BMP, SCAN CBC, PTT, BNP, PT, TROP #### [address] Troponin I(TnI)on 03-21-2021 Troponin I.cardiac [Mass/Vol] 3.93 ng/mL Off scale high 0-0.02 [facility] Comment on above: Result Comment: [place] Cut off value > or equal to 0.03 ng/mL in conjunction with clinical conditions of myocardial infarction. (www.escardio.org/guidelines) PERFORMED BY: [place] [address] PATHOLOGIST MANAGER HOS[employer]ITAL[employer] GIA SHAH M.D. Performed By: #### C K, BMP, SCAN CBC, PTT, BNP, PT, TROP #### [address] Troponin I.cardiac [Mass/Vol] 3.98 ng/mL Off scale high 0-0.02 [facility] Comment on above: Result Comment: [place] Cut off value > or equal to 0.03 ng/mL in conjunction with clinical conditions of myocardial infarction. (www.escardio.org/guidelines) PERFORMED BY: [place] [address] PATHOLOGIST MANAGER HOSPITAL[employer] GIA SHAH M.D. Performed By: #### C K, BMP, SCAN CBC, PTT, BNP, PT, TROP #### [address] Basic Metabolic Panelon 06-2 Calcium [Mass/Vol] 9.1 mg/dL Normal 8.2-10.2 [facility] Comment on above: Performed By: #### C K, BMP, SCAN CBC, PTT, BNP, PT, TROP #### [address] Chloride [Moles/Vol] 102 mmol/L Normal 95-114 [facility] Comment on above: Performed By: #### C K, BMP, SCAN CBC, PTT, BNP, PT, TROP #### [address] CO2 [Moles/Vol] 23.3 mmol/L Normal 22.0-30.0 [facility] Comment on above: Performed By: #### C K, BMP, SCAN CBC, PTT, BNP, PT, TROP #### [address] [place] [address] [place] Creatinine [Mass/Vol] 1.15 mg/dL High 0.44-1.03 [facility] Comment on above: Performed By: #### C K, BMP, SCAN CBC, PTT, BNP, PT, TROP #### [facility] [address] Creatinine Clr Calc Pharmacy 47.09 [facility] Comment on above: Performed By: #### C K, BMP, SCAN CBC, PTT, BNP, PT, TROP #### [facility] [address] Estimated GFR ( [place] 59 [facility] Comment on above: Result Comment: GFR estimated reference range: According to KDOQI guidelines, <60 ml/min/1.73m2 is sufficient to diagnose a patient with chronic kidney disease. Performed By: #### C K, BMP, SCAN CBC, PTT, BNP, PT, TROP #### [address] Estimated GFR (Non- Am 48 [facility] Comment on above: Performed By: #### C K, BMP, SCAN CBC, PTT, BNP, PT, TROP #### [address] Glucose [Mass/Vol] 161 mg/dL High 70-100 [facility] Comment on above: Result Comment: [place] om Glucose Reference Range is dependent on time and content of last meal. Glucose of more than 200 mg/dL in a nonstressed, ambulatory subject supports the diagnosis of Diabetes Mellitus. ADA recommended reference range Performed By: #### C K, BMP, SCAN CBC, PTT, BNP, PT, TROP #### [address] Potassium [Moles/Vol] 3.1 mmol/L Low 3.5-5.1 [facility] Comment on above: Performed By: #### C K, BMP, SCAN CBC, PTT, BNP, PT, TROP #### [facility] [address] Sodium [Moles/Vol] 136 mmol/L Normal 136-146 [facility] Comment on above: Performed By: #### C K, BMP, SCAN CBC, PTT, BNP, PT, TROP #### [address] Urea nitrogen [Mass/Vol] 26 mg/dL High 9-23 [facility] Comment on above: Performed By: #### C K, BMP, SCAN CBC, PTT, BNP, PT, TROP #### [address] Coagulation Profileon 2020 aPTT Coag (Bld) [Time] 37.6 s High 25.1-36.5 [facility] Comment on above: Result Comment: PERF ORMED BY: [place] [address] PATHOLOGIST MANAGER HOSPITAL[employer] GIA SHAH M.D. Performed By: #### C K, BMP, SCAN CBC, PTT, BNP, PT, TROP #### [address] INR Coag (PPP) [Relative time] 1.1 {INR} Normal [facility] Comment on above: Result Comment: INR [...] SCAN CBC, PTT, BNP, PT, TROP #### [address] PT Coag (PPP) [Time] 12.2 s Normal 9.0-12.9 [facility] Comment on above: Performed By: #### C K, BMP, SCAN CBC, PTT, BNP, PT, TROP #### [address] Creatine Kinaseon 03-20-2021 CK [Catalytic activity/Vol] 91 U/L Normal 22-269 [facility] Comment on above: Order Comment: NOTIF IED,KAH,[id number] Performed By: #### C K, BMP, SCAN CBC, PTT, BNP, PT, TROP #### [facility] [address] [place] [address] [place] CK [Catalytic activity/Vol] 108 U/L Normal 22-[address] [place] [address] Comment on above: Performed By: #### C K, BMP, SCAN CBC, PTT, BNP, PT, TROP #### [facility] [address] CK [Catalytic activity/Vol] 101 U/L Normal [address] [place] [address] Comment on above: Performed By: #### C K, BMP, SCAN CBC, PTT, BNP, PT, TROP #### [place] [address] [place] Creatinine Kinase MBon 03-20 CK.MB [Mass/Vol] 1.9 ng/mL Normal 0.6-6.3 [facility] Comment on above: Order Comment: NOTIF IED,KAH,[id number] Performed By: #### C K, BMP, SCAN CBC, PTT, BNP, PT, TROP #### [facility] [address] [place] [address] CKMB Relative Index 2.0 % Normal 0.00-2.50 [facility] Comment on above: Order Comment: NOTIF IED,KAH,[id number] Performed By: #### C K, BMP, SCAN CBC, PTT, BNP, PT, TROP #### [facility] [address] [place] [address] [place] CK.MB [Mass/Vol] 2.5 ng/mL Normal 0.6-6.3 [facility] Comment on above: Performed By: #### C K, BMP, SCAN CBC, PTT, BNP, PT, TROP #### [address] CKMB Relative Index 2.3 % Normal 0.00-2.50 [facility] Comment on above: Performed By: #### C K, BMP, SCAN CBC, PTT, BNP, PT, TROP #### [place] [address] CK.MB [Mass/Vol] 3.1 ng/mL Normal 0.6-6.3 [facility] Comment on above: Performed By: #### C K, BMP, SCAN CBC, PTT, BNP, PT, TROP #### [facility] [address] CKMB Relative Index 3.0 % High 0.00-2.50 [facility] Comment on above: Performed By: #### C K, BMP, SCAN CBC, PTT, BNP, PT, TROP #### [facility] [address] ECG 12 lead ECGon 03-20-2021 ECG 12 lead ECG [facility] [place] [address] [place] [address] Electrocardiograph Report Signed Patient: Fausto Corrigan MR#: [id number] 0 : 1960 Acct:[id number] Age/Sex: 60 / F ADM Date: 03/19/21 Loc: Room: [address] [place] [address] Type: DIS IN Attending Dr: Kal Kellogg [...] ECG No previous ECGs available Confirmed by CHIRSTA BAEZA DO ([id number]) on 03/22/2021 5:05:35 PM Referred By: Electronically Signed By:CHRISTA BAEZA DO Transcribed By: MUS Dictated By: Christa Baeza DO 03/20/21 1436 Signed By: 03/22/21 1701 Normal [facility] Magnesiumon 03-20-2021 Magnesium [Mass/Vol] 2.0 mg/dL Normal 1.6-2.6 [facility] Comment on above: Result Comment: PERF ORMED BY: [place] [address] PATHOLOGIST MANAGER [employer]OS[employer]ITAL[employer] GIA SHAH M.D. Performed By: #### C K, BMP, SCAN CBC, PTT, BNP, PT, TROP #### [address] Partial Thromboplastin Timeo n 03-20-2021 aPTT Coag (Bld) [Time] 44.7 s High 25.1-36.5 [facility] Comment on above: Order Comment: List the anticoagulant: HEPARIN, UNFRACTIONATED Result Comment: PERF ORMED BY: [place] [address] PATHOLOGIST MANAGER [facility]OSPITAL[employer] GIA SHAH M.D. Performed By: #### C K, BMP, SCAN CBC, PTT, BNP, PT, TROP #### [address] Scan and CBCon 03-20-2021 Basophils (Bld) [#/Vol] 0.1 10*3/uL Normal 0.0-0.2 [facility] Comment on above: Performed By: #### C K, BMP, SCAN CBC, PTT, BNP, PT, TROP #### [address] Basophils/100 WBC (Bld) 0.6 % Normal . [facility] Comment on above: Performed By: #### C K, BMP, SCAN CBC, PTT, BNP, PT, TROP #### [address] Eosinophils (Bld) [#/Vol] 0.3 10*3/uL Normal 0.0-0.45 [facility] Comment on above: Performed By: #### C K, BMP, SCAN CBC, PTT, BNP, PT, TROP #### [address] Eosinophils/100 WBC (Bld) 1.8 % Normal . [facility] Comment on above: Performed By: #### C K, BMP, SCAN CBC, PTT, BNP, PT, TROP #### [address] Erythrocyte distribution width (RBC) [Ratio] 13.2 % Normal 11.9-15.3 [facility] Comment on above: Performed By: #### C K, BMP, SCAN CBC, PTT, BNP, PT, TROP #### [address] Hematocrit (Bld) [Volume fraction] 42.5 % Normal 34.0-46.4 [facility] Comment on above: Performed By: #### C K, BMP, SCAN CBC, PTT, BNP, PT, TROP #### [address] Hemoglobin (Bld) [Mass/Vol] 14.5 g/dL Normal 11.8-15.4 [facility] Comment on above: Performed By: #### C K, BMP, SCAN CBC, PTT, BNP, PT, TROP #### [address] Lymphocytes (Bld) [#/Vol] 5.2 10*3/uL High 1.00-4.8 [facility] Comment on above: Performed By: #### C K, BMP, SCAN CBC, PTT, BNP, PT, TROP #### [address] Lymphocytes/100 WBC (Bld) 31.5 % Normal . [facility] Comment on above: Performed By: #### C K, BMP, SCAN CBC, PTT, BNP, PT, TROP #### [address] MCH (RBC) [Entitic mass] 31.1 pg Normal 24.7-34.3 [facility] Comment on above: Performed By: #### C K, BMP, SCAN CBC, PTT, BNP, PT, TROP #### [address] MCV (RBC) [Entitic vol] 90.8 fL Normal 80-100 [facility] Comment on above: Performed By: #### C K, BMP, SCAN CBC, PTT, BNP, PT, TROP #### [address] Mean Corpuscular HGB Conc 34.2 g/dL Normal 32.0-35.0 [facility] Comment on above: Performed By: #### C K, BMP, SCAN CBC, PTT, BNP, PT, TROP #### [address] Monocytes (Bld) [#/Vol] 1.1 10*3/uL High 0.0-0.8 [facility] Comment on above: Performed By: #### C K, BMP, SCAN CBC, PTT, BNP, PT, TROP #### [address] Monocytes/100 WBC (Bld) 6.7 % Normal . [facility] Comment on above: Performed By: #### C K, BMP, SCAN CBC, PTT, BNP, PT, TROP #### [address] Neutrophils (Bld) [#/Vol] 9.8 10*3/uL High 1.8-7.7 [facility] Comment on above: Performed By: #### C K, BMP, SCAN CBC, PTT, BNP, PT, TROP #### [address] Neutrophils/100 WBC (Bld) 59.4 % Normal . [facility] Comment on above: Performed By: #### C K, BMP, SCAN CBC, PTT, BNP, PT, TROP #### [place] [address] [place] Nucleated RBC/100 WBC (Bld) [Ratio] 0.2 % Normal 0-0.5 [facility] Comment on above: Performed By: #### C K, BMP, SCAN CBC, PTT, BNP, PT, TROP #### [address] Platelet Estimate Normal Normal Normal [facility] Comment on above: Performed By: #### C K, BMP, SCAN CBC, PTT, BNP, PT, TROP #### [address] Platelet mean volume (Bld) [Entitic vol] 9.4 fL Normal 6.3-10.7 [facility] Comment on above: Performed By: #### C K, BMP, SCAN CBC, PTT, BNP, PT, TROP #### [address] Platelet Morphology Normal Normal Normal [facility] Comment on above: Result Comment: PERF ORMED BY: [place] [address] PATHOLOGIST MANAGER [employer]ITAL[employer] GIA SHAH M.D. Performed By: #### C K, BMP, SCAN CBC, PTT, BNP, PT, TROP #### [address] Platelets (Bld) [#/Vol] 305 10*3/uL Normal 150-450 [facility] Comment on above: Performed By: #### C K, BMP, SCAN CBC, PTT, BNP, PT, TROP #### [address] RBC (Bld) [#/Vol] 4.68 10*6/uL Normal 3.60-5.00 [facility] Comment on above: Performed By: #### C K, BMP, SCAN CBC, PTT, BNP, PT, TROP #### [address] RBC morphology finding Nom (Bld) Normal Normal [facility] Comment on above: Performed By: #### C K, BMP, SCAN CBC, PTT, BNP, PT, TROP #### [address] WBC (Bld) [#/Vol] 16.5 10*3/uL High 4.5-11.0 [facility] Comment on above: Performed By: #### C K, BMP, SCAN CBC, PTT, BNP, PT, TROP #### [address] Troponin I(TnI)on 03-20-2021 Troponin I.cardiac [Mass/Vol] 4.57 ng/mL Off scale high 0-0.02 [facility] Comment on above: Order Comment: NAZ GONZALEZ,[id number] Result Comment: [place] Cut off value > or equal to 0.03 ng/mL in conjunction with clinical conditions of myocardial infarction. (www.escardio.org/guidelines) PERFORMED BY: [place] [address] PATHOLOGIST MANAGER [employer]OSPITAL[employer] GIA SHAH M.D. Performed By: #### C K, BMP, SCAN CBC, PTT, BNP, PT, TROP #### [address] Troponin I.cardiac [Mass/Vol] 5.16 ng/mL Off scale high 0-0.02 [facility] Comment on above: Result Comment: [place] Cut off value > or equal to 0.03 ng/mL in conjunction with clinical conditions of myocardial infarction. (www.escardio.org/guidelines) PERFORMED BY: [place] [address] PATHOLOGIST MANAGER HOSPITAL[employer] GIA SHAH M.D. Performed By: #### C K, BMP, SCAN CBC, PTT, BNP, PT, TROP #### [address] Troponin I.cardiac [Mass/Vol] 4.93 ng/mL Off scale high 0-0.02 [facility] Comment on above: Result Comment: [place] Cut off value > or equal to 0.03 ng/mL in conjunction with clinical conditions of myocardial infarction. (www.escardio.org/guidelines) PERFORMED BY: [place] [address] PATHOLOGIST MANAGER HOSPITALITY GIA SHAH M.D. Performed By: #### C K, BMP, SCAN CBC, PTT, BNP, PT, TROP #### [address] XR chest 1V portableon 03-20 XR chest 1V portable [facility] Main [place] [address] [id number] XRay Report Signed Patient: Fausto Corrigan MR#: [id number] 0 : 1960 Acct:[id number] Age/Sex: 60 / F ADM Date: 03/19/21 Loc: Room: [address] [place] [address] Type: ADM IN Attending Dr: Kal Kellogg [...] Robel Roland M.D.03/20/2021 8:58 AM Dictation Location: [place] [address] Transcribed By: [facility] 03/20/21 0858 Dictated By: Robel Roland DO 03/20/21 0857 Signed By: 03/20/21 0858 Normal [facility] B-Type Natriuretic Peptideon 03-19-2021 Natriuretic peptide B (Bld) [Mass/Vol] 117.0 pg/mL High 5-100 [facility] Comment on above: Result Comment: PERF ORMED BY: [place] [address] PATHOLOGIST MANAGER HOSPITALITY GIA SHAH M.D. Performed By: #### C K, BMP, SCAN CBC, PTT, BNP, PT, TROP #### [place] [id number] [facility] Basic Metabolic Panelon 02-26 Calcium [Mass/Vol] 9.9 mg/dL Normal 8.2-10.2 [facility] Comment on above: Performed By: #### C K, BMP, SCAN CBC, PTT, BNP, PT, TROP #### [address] Chloride [Moles/Vol] 95 mmol/L Normal 95-114 [facility] Comment on above: Performed By: #### C K, BMP, SCAN CBC, PTT, BNP, PT, TROP #### [address] CO2 [Moles/Vol] 28.2 mmol/L Normal 22.0-30.0 [facility] Comment on above: Performed By: #### C K, BMP, SCAN CBC, PTT, BNP, PT, TROP #### [address] Creatinine [Mass/Vol] 1.41 mg/dL High 0.44-1.03 [facility] Comment on above: Performed By: #### C K, BMP, SCAN CBC, PTT, BNP, PT, TROP #### [address] Creatinine Clr Calc Pharmacy 38.52 [facility] Comment on above: Result Comment: PERF ORMED BY: [place] [address] PATHOLOGIST MANAGER HOSPITALITY GIA SHAH M.D. Performed By: #### C K, BMP, SCAN CBC, PTT, BNP, PT, TROP #### [address] Estimated GFR ( [place] 46 [facility] Comment on above: Result Comment: GFR estimated reference range: According to KDOQI guidelines, <60 ml/min/1.73m2 is sufficient to diagnose a patient with chronic kidney disease. Performed By: #### C K, BMP, SCAN CBC, PTT, BNP, PT, TROP #### [address] Estimated GFR (Non- Am 38 [facility] Comment on above: Performed By: #### C K, BMP, SCAN CBC, PTT, BNP, PT, TROP #### [address] Glucose [Mass/Vol] 143 mg/dL High 70-100 [facility] Comment on above: Result Comment: [facility] Glucose Reference Range is dependent on time and content of last meal. Glucose of more than 200 mg/dL in a nonstressed, ambulatory subject supports the diagnosis of Diabetes Mellitus. ADA recommended reference range Performed By: #### C K, BMP, SCAN CBC, PTT, BNP, PT, TROP #### [facility] [address] Potassium [Moles/Vol] 3.4 mmol/L Low 3.5-5.1 [facility] Comment on above: Performed By: #### C K, BMP, SCAN CBC, PTT, BNP, PT, TROP #### [address] Sodium [Moles/Vol] 139 mmol/L Normal 136-146 [facility] Comment on above: Performed By: #### C K, BMP, SCAN CBC, PTT, BNP, PT, TROP #### [address] Urea nitrogen [Mass/Vol] 28 mg/dL High 9-23 [facility] Comment on above: Performed By: #### C K, BMP, SCAN CBC, PTT, BNP, PT, TROP #### [address] COVID-19 Antigenon 1 COVID-19 Antigen Healthcare [...] Kristan Disclaimer decisions, including infection control decisions. Krsitan Disclaimer Negative results should be considered in [...] its performance Kristan Disclaimer characteristic determined by [employer] and Kristan Disclaimer validated at [facility]. This Kristan Disclaimer test has not [...] is terminated or revoked sooner. PERFORMED BY: [address] [place] [address] PATHOLOGIST MANAGER HOSPITALITY GIA SHAH M.D. Normal [facility] Comment on above: Performed By: #### C OVID 19 [facility] [place] [place], [place], COVID-19 KRISTAN #### [address] [address] [facility] COVID-19 FRon 03-19-2021 SARS-CoV-2 (COVID-19) RNA SHERRIE+probe Ql (Unsp spec) Negative Normal Negative [facility] Comment on above: Order Comment: Healt hcare Worker?: N Result Comment: Testing for SARS-CoV-2 by RT-PCR This test was developed and its performance characteristics determined by [employer] and validated at the [facility]. This test has not been FDA [...] is terminated or revoked sooner. PERFORMED BY: [address] [address] PATHOLOGIST MANAGER HOSPITALITY GIA SHAH M.D. Performed By: #### C OVID 19 [facility] [place] [place], [place], COVID-19 KRISTAN #### [address] [place] [address] [facility] Creatine Kinaseon 03-19-2021 CK [Catalytic activity/Vol] 123 U/L Normal 22-269 [facility] Comment on above: Performed By: #### C K, BMP, SCAN CBC, PTT, BNP, PT, TROP #### [facility] [address] [place], [place] [phone] [facility] ECG 12 lead ECGon 03-19-2021 ECG 12 lead ECG [facility] [place] [address] Electrocardiograph Report Signed Patient: Fausto Corrigan MR#: [id number] 0 : 1960 Acct:[id number] Age/Sex: 60 / F ADM Date: 03/19/21 Loc: Room: [address] [place] [address] Type: ADM IN Attending Dr: Kal Kellogg [...] rhythm Inferior infarct , possibly acute ACUTE [place] / STEMI Consider right ventricular involvement in acute inferior infarct Abnormal ECG When compared with ECG of 19-MAR-2021 20:15, (Unconfirmed) No significant change was found Confirmed by LAYNE SIMON DO ([id number]) on 03/20/2021 2:13:27 AM Referred By: Electronically Signed By:LAYNE SIMON DO Transcribed By: MUS Dictated By: Layne Simon DO 03/19/212021 Signed By: 03/20/21 0213 Normal [facility] ECG 12 lead ECG [facility] Main [place] [id number] Electrocardiograph Report Signed Patient: Fausto Corrigan MR#: [id number] 0 : 1960 Acct:[id number] Age/Sex: 60 / F ADM Date: 03/19/21 Loc: Room: [address] [place] [address] Type: ADM IN Attending Dr: Kal Kellogg [...] consider inferior injury or acute infarct ACUTE WV / STEMI Consider right ventricular involvement in acute inferior infarct Abnormal ECG No previous ECGs available Confirmed by LAYNE SIMON DO ([id number]) on 03/20/2021 2:13:27 AM Referred By: Electronically Signed By:LAYNE SIMON DO Transcribed By: MUS Dictated By: Layne Simon DO 03/19/212014 Signed By: 03/20/21 0213 Normal [facility] Partial Thromboplastin Timeo n 03-19-2021 aPTT Coag (Bld) [Time] 29.7 s Normal 25.1-36.5 [facility] Comment on above: Result Comment: PERF ORMED BY: [place] [address] PATHOLOGIST MANAGER HOSPITALITY GIA SHAH M.D. Performed By: #### C K, BMP, SCAN CBC, PTT, BNP, PT, TROP #### [facility] [address] [place] [address] Prothrombin Time INRon 03-19 INR Coag (PPP) [Relative time] 1.1 {INR} Normal [facility] Comment on above: Result Comment: INR [...] SCAN CBC, PTT, BNP, PT, TROP #### [address] PT Coag (PPP) [Time] 12.2 s Normal 9.0-12.9 [facility] Comment on above: Performed By: #### C K, BMP, SCAN CBC, PTT, BNP, PT, TROP #### [address] Scan and CBCon 03-19-2021 Basophils (Bld) [#/Vol] 0.2 10*3/uL Normal 0.0-0.2 [facility] Comment on above: Performed By: #### C K, BMP, SCAN CBC, PTT, BNP, PT, TROP #### [address] Basophils/100 WBC (Bld) 0.9 % Normal . [facility] Comment on above: Performed By: #### C K, BMP, SCAN CBC, PTT, BNP, PT, TROP #### [address] Eosinophils (Bld) [#/Vol] 0.4 10*3/uL Normal 0.0-0.45 [facility] Comment on above: Performed By: #### C K, BMP, SCAN CBC, PTT, BNP, PT, TROP #### [address] Eosinophils/100 WBC (Bld) 2.1 % Normal . [facility] Comment on above: Performed By: #### C K, BMP, SCAN CBC, PTT, BNP, PT, TROP #### [address] Erythrocyte distribution width (RBC) [Ratio] 13.3 % Normal 11.9-15.3 [facility] Comment on above: Performed By: #### C K, BMP, SCAN CBC, PTT, BNP, PT, TROP #### [address] Hematocrit (Bld) [Volume fraction] 46.2 % Normal 34.0-46.4 [facility] Comment on above: Performed By: #### C K, BMP, SCAN CBC, PTT, BNP, PT, TROP #### [address] Hemoglobin (Bld) [Mass/Vol] 15.7 g/dL High 11.8-15.4 [facility] Comment on above: Performed By: #### C K, BMP, SCAN CBC, PTT, BNP, PT, TROP #### [address] Lymphocytes (Bld) [#/Vol] 5.0 10*3/uL High 1.00-4.8 [facility] Comment on above: Performed By: #### C K, BMP, SCAN CBC, PTT, BNP, PT, TROP #### [address] Lymphocytes/100 WBC (Bld) 27.2 % Normal . [facility] Comment on above: Performed By: #### C K, BMP, SCAN CBC, PTT, BNP, PT, TROP #### [address] MCH (RBC) [Entitic mass] 31.2 pg Normal 24.7-34.3 [facility] Comment on above: Performed By: #### C K, BMP, SCAN CBC, PTT, BNP, PT, TROP #### [address] MCV (RBC) [Entitic vol] 91.8 fL Normal 80-100 [facility] Comment on above: Performed By: #### C K, BMP, SCAN CBC, PTT, BNP, PT, TROP #### [address] Mean Corpuscular HGB Conc 34.0 g/dL Normal 32.0-35.0 [facility] Comment on above: Performed By: #### C K, BMP, SCAN CBC, PTT, BNP, PT, TROP #### [address] [address] [place] Monocytes (Bld) [#/Vol] 1.4 10*3/uL High 0.0-0.8 [facility] Comment on above: Performed By: #### C K, BMP, SCAN CBC, PTT, BNP, PT, TROP #### [address] Monocytes/100 WBC (Bld) 7.5 % Normal . [facility] Comment on above: Performed By: #### C K, BMP, SCAN CBC, PTT, BNP, PT, TROP #### [address] Neutrophils (Bld) [#/Vol] 11.5 10*3/uL High 1.8-7.7 [facility] Comment on above: Performed By: #### C K, BMP, SCAN CBC, PTT, BNP, PT, TROP #### [address] Neutrophils/100 WBC (Bld) 62.3 % Normal . [facility] Comment on above: Performed By: #### C K, BMP, SCAN CBC, PTT, BNP, PT, TROP #### [address] Nucleated RBC/100 WBC (Bld) [Ratio] 0.2 % Normal 0-0.5 [facility] Comment on above: Performed By: #### C K, BMP, SCAN CBC, PTT, BNP, PT, TROP #### [address] Platelet Estimate Normal Normal Normal [facility] Comment on above: Performed By: #### C K, BMP, SCAN CBC, PTT, BNP, PT, TROP #### [address] Platelet mean volume (Bld) [Entitic vol] 9.6 fL Normal 6.3-10.7 [facility] Comment on above: Performed By: #### C K, BMP, SCAN CBC, PTT, BNP, PT, TROP #### [address] Platelet Morphology Normal Normal Normal [facility] Comment on above: Result Comment: PERF ORMED BY: [place] [address] PATHOLOGIST MANAGER HOSPITALITY GIA SHAH M.D. Performed By: #### C K, BMP, SCAN CBC, PTT, BNP, PT, TROP #### [address] Platelets (Bld) [#/Vol] 313 10*3/uL Normal 150-450 [facility] Comment on above: Performed By: #### C K, BMP, SCAN CBC, PTT, BNP, PT, TROP #### [address] RBC (Bld) [#/Vol] 5.03 10*6/uL High 3.60-5.00 [facility] Comment on above: Performed By: #### C K, BMP, SCAN CBC, PTT, BNP, PT, TROP #### [address] RBC morphology finding Nom (Bld) Normal Normal [facility] Comment on above: Performed By: #### C K, BMP, SCAN CBC, PTT, BNP, PT, TROP #### [address] WBC (Bld) [#/Vol] 18.4 10*3/uL High 4.5-11.0 [facility] Comment on above: Performed By: #### C K, BMP, SCAN CBC, PTT, BNP, PT, TROP #### [address] Kristan Ag Negativeon 03-19-20 21 Kristan Ag Negative Negative Normal Negative [facility] Comment on above: Result Comment: This is a duplicate Kristan SARS Antigen (KOLTON) result to be used for statistical tracking purpose only. PERFORMED BY: [place] [address] PATHOLOGIST MANAGER HOSPITALITY GIA SHAH M.D. Performed By: #### C OVID 19 [facility], [place], COVID-19 KRISTAN #### [facility] [address] [id number] [facility] Troponin I(TnI)on 03-19-2021 Troponin I.cardiac [Mass/Vol] 4.25 ng/mL Off scale high 0-0.02 [facility] Comment on above: Result Comment: Crit ical value result called at 2209 on 03/19/21 [place] Cut off value > or equal to 0.03 ng/mL in conjunction with clinical conditions of myocardial infarction. (www.escardio.org/guidelines) PERFORMED BY: [facility] [address] [facility] [address] PATHOLOGIST MANAGER HOSPITALITY GIA SHAH M.D. Performed By: #### C K, BMP, SCAN CBC, PTT, BNP, PT, TROP #### [facility] [address] [place] [address] [facility] Gastroenterology Office/Clin ic Noteon 02-26-2021 Gastroenterology Office/Clinic [...] after patient consented to recording for virtual internal controls specialist and provider reviewed before signing. ARMEN: Lianne Jensen Follow-up With When Contact Information ROM RENNER, JOSE Graham, LASHAY Within 2 weeks [facility] [address] [place] [address]- Additional Instructions: Problem List/Past Medical History Ongoing [...] Father. Primary malignant neoplasm of prostate: Father. [facility] Comment on above: Result Comment: Elec tronically Signed By: Lianne Jensen\.br\Date and Time Signed: 02/25/21 15:53 EDT\.br\Electronically Co-Signed By: Gladys CUETO MD\.br\Date and Time Co-Signed: 02/26/21 12:32 EDT Ambulatory Clinical Summaryo n 02-25-2021 Ambulatory Clinical Summary {[id number]}CD:6143 68 [facility] Coding Summary.on 07-15-2020 Coding Summary. CODING DATE: 020 [facility] STATUS: Home (Routine DC) PAYOR: Medicaid ADMIT [...] CphT Date Saved: 07/15/2020 12:25 pm Normal [facility] Priority Order-Isra 2019 Priority Order-STAT Comment Invalid Interpretation Code [facility] Comment on above: Result Comment: Rece ived Performed at: [facility] [address] [place], [place] [id number] MD Fredy Larson Performed By: #### S ARS-CoV-2, SHERRIE, [id number] #### [facility] [address] [place] [address] SARS-CoV-2, NAAon 06-25-2020 SARS-CoV-2 (COVID-19) RNA SHERRIE+probe Ql (Resp) Not detected Invalid Interpretation Code Not Detected [facility] Comment on above: Result Comment: This nucleic acid amplification test was developed and its performance characteristics determined by [employer]. Nucleic acid amplification tests include PCR and [...] detected) result in this assay. Performed at: [facility] [address] [facility] [place] [id number] MD Fredy Larson Performed By: #### S ARS-CoV-2, SHERRIE, [id number] #### [facility] [address] [place] [place] [address] Consenton 06-20-2020 Consent [id number]:127 Normal [facility] Pre-Certification Formon Pre-Certification Form [id number]#[id number]:127 Normal [facility] Physician Orderon 06-19-2020 Physician Order [id number]#1.00CD:127 Normal [facility] Ambulatory Clinical Summaryo n 06-17-2020 Ambulatory Clinical Summary {[id number]}CD:6143 68 Normal [facility] Gastroenterology Office/Clin ic Noteon 06-17-2020 [...] Information Gladys CUETO MD Within 2 weeks [facility] [address] [place] [address]- Additional Instructions: Patient Education Heartburn Problem List/Past [...] Primary malignant neoplasm of prostate: Father. Normal [facility] Comment on above: Result Comment: Elec tronically Signed By: Gladys CUETO MD\.br\Date and Time Signed: 06/17/20 13:06 EDT Patient Educationon 06-17-20 Patient Education Family Medicine Heartburn Heartburn is [...] caregiver may tell you to use certain syir-qie-iubmxhy medicines (antacids, acid reducers) for mild heartburn. [...] Spicy foods. ? Garlic and onions. ? [place]acao fruits, including oranges, grapefruit, jacqui, and limes. [...] Document Reviewed: 02/28/2012 ExitCare? Patient Information ?2013 [employer]. [facility] Formson 06-12-2020 Forms [id number]#1.00CD:127 [facility] CNOVon 03-17-2018 CNOV Office Visit (AGHWW1) ----FAUSTO CORRIGAN ([id number]) 1960 FDate Time Provider Department03/17/18 1:30 PM [...] Alcohol use: No Drug use: John OF [place] - It's what's in store noteMSK: + as noted in HPI.Physical Examination:On [...] Protective sensation intact at all pedalsites via Aurora Gabrielle 5.07 monofilament bilateral. 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]Order(s):XR FOOT GENERAL 3V AP/LAT/OBL RT [[id number]] Order #: [id number] CONSULT TO ORTHOTIC/PROSTHETIC [[id number]] Order #: [id number]: 1Prescriptions as of 03/17/2018 Sig: ALBUTEROL SULFATE [...] (around 05/17/2018).Follow-up and Disposition History RecordedEncounter Number: [id number] Status:Closed by THOMAS DELGADILLO DPM on 04/17/18 Normal [facility] PROGRESSon 03-17-2018 Protein HNO ID: [id number] thor: Thomas Jiang: (none)Author Type: PhysicianType: Progress [...] 3-4 daily Alcohol use: No Drug use: [facility] OF [place] - It's what's in store noteMSK: + as noted in HPI.Physical Examination:On General Observation: Patient is a pleasant, cooperative, well uumtlodpj15 year oldadult female. The patient is alert [...] Protective sensation intact at allpedal sites via Aurora Gabrielle 5.07 monofilament bilateral.Proprioception intact at the [...] anticipated course of treatment.Rx for SAAFO from [employer] was given, patient to obtain and use to see [facility] Follow up in 2 monthsYosi Yu DPM PGY2I personally saw and evaluated the patient. I reviewed the resident'snote. I agree with the resident's assessment and plan unless otherwisenoted.Thomas Delgadillo DPM, FACFAS Normal [facility] 09-01-2017 CNPN Telephone (PULMMN) ----FAUSTO CORRIGAN ([id number]) 1960 [facility] Time Provider Unxdvmfoim62/6/17 AIMEE HERNANDEZ During your visit today, we [...] 07/26/2017Reviewed by: Sis Kirkpatrick LPN - Fully AssessedReason for Visit: Insurance Authorization [[id number]] Cmt: pt called requesting prior auth for [...] Breath. Status:Closed by KRISTA LAGOS on 09/01/17 [facility] CNCO Letter TextNov2016[place] [address] [place] [address]Rfab Ms. Fausto Corrigan,It was a pleasure to see you in the Department of Pulmonary Medicine on07/26/2017.Attached please find a copy of your Visit Summary.I appreciate having the opportunity to see you. If I can be of furtherassistance to you, or if you have any questions regarding this report, pleasefeel free to contact my office.Sincerely,NATE Chaparro/Aidenment: Visit Summary Normal [facility] CBCon 07-26-2017 Erythrocyte distribution width Auto Ratio (RBC) 12.9 % Normal 11.5-15.0 [facility] Comment on above: Performed By: #### C BC, CMP ####[place] [address] [address], [place] [phone] Erythrocytes (RBC) 10*6/uL Normal <0.01 [facility] Comment on above: Performed By: #### C BC, CMP ####[place] [address] [address], [place] [phone] Erythrocytes (RBC) 5.08 10*6/uL Normal 3.90-5.20 [facility] Comment on above: Performed By: #### C BC, CMP ####[place] [address] [place], [place] [phone] Hematocrit (HCT) 47.7 % High 36.0-46.0 [facility] Comment on above: Performed By: #### C BC, CMP ####[facility] [place], [place] [phone] Hemoglobin mass conc (Bld) 15.3 g/dL Normal 11.5-15.5 [facility] Comment on above: Performed By: #### C BC, CMP ####[place] [address]CF[address], [place] [phone] MCH 30.1 pG Normal 26.0-34.0 [facility] Comment on above: Performed By: #### C BC, CMP ####[place] [address] [address]BijanFlor[address], [place] [phone] MCHC mass conc (RBC) 32.1 g/dL Normal 30.5-36.0 [facility] Comment on above: Performed By: #### C MAYANK, CMP ####[place] [address] [address] [place], [place] [phone] MCV 93.9 fL Normal 80.0-100.0 [facility] Comment on above: Performed By: #### C MAYANK, CMP ####[address], [place] [phone] Platelet mean volume (PMV) 11.9 fL Normal 9.0-12.7 [facility] Comment on above: Performed By: #### C MAYANK, CMP ####[facility] [place] [address] [phone] Platelets 283 10*3/uL Normal 150-400 [facility] Comment on above: Performed By: #### C MAYANK, CMP ####[facility] [place], [place] [phone] WBC (Leukocytes) 13.36 10*3/uL High 3.70-11.00 [facility] Comment on above: Performed By: #### Andrzej TALLEY, CMP ####[facility] [place], [place] [phone] CNOVon 07-26-2017 CNOV Office Visit (PSSCMN) ----FAUSTO CORRIGAN ([id number]) 1960 FDate Time Provider Dlpkmpsftp66/30/17 3:30 PM [facility] PSSCM[facility] During your visit today, we recorded the following information about you: Pulse Blood pressure Weight Height 75/minute 120/69 73 kg 1.52 Shannan Sosa DO 07/26/2017 5:18 PM SignedANESTHESIA PRE-OPERATIVE ASSESSMENT (PACE)SERVICE DATE: 07/26/2017SERVICE TIME: 4:56 PMASSESSMENT ANDamp; PLAN:Fausto Corrigan is a 57 year old female scheduled for sigmoid colectomy w/ 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 [...] 4:26 PM PAGER/CONTACT #:Referring Provider: ESEQUIEL THOMAS [[id number]]Allergies As of Date: 07/26/2017 Noted Allergy ReactionSULFA (SULFONAMIDE ANTIBIOTICS) 06/07/2017 4 - Hives 10 - AnaphylaxisDate Reviewed: 07/26/2017Reviewed by: Sis Kirkpatrick FUSE COILER - Fully AssessedPrimary Visit Diagnosis:Pre-op evaluation [Z01.818]Prescriptions [...] Cosign Required by: James Vogel III[] Normal [facility] CNOV Office Visit (IMPAMN) ----FAUSTO CORRIGAN ([id number]) 1960 [facility] Time Provider Iwkothztmu26/30/17 2:15 PM RIVERA PATRICIA) IMPAMN During your [...] or fevers.Neuro: No history of TIA's, stroke, LASER TECHNICIAN tumor, impaired sensorium, hemiplegia,paraplegia or quadriplegia. No neurological symptoms or problems.Respiratory: COPD on nebulizersCardiovascular: No history of HTN requiring medication, no history of angina,CHF, [place], cardiac surgery or stents. Denies rest pain, gangrene orrevascularization/amputati on for PVD. No history of cardiovascular symptoms orproblems.GI: Peptic Ulcer Disease on ZantacGU: No history of UTI in past 6 weeks. No history of renal failure. Notcurrently on or requiring dialysis. No history of symptoms or problems.OPERATIONS ENGINEER: No vaginal bleeding due to menopause and [...] old [facility] Sur[facility]: Dr. Fernandez of Surgery: 08/03/2017Planned Surgery/Procedure: Sigmoid Colectomy w/ CRAAllergies have been reviewed and verified. They include the following:Sulfa (Sulfonamide Antibiotics)Social HistorySubstance Use Topics- Smoking status: Former Smoker Years: 20.00 Types: Cigarettes Start date: 06/07/1997 Quit date: 06/26/2017- Smokeless tobacco: Never Used Comment: smokes 3-4 daily- Alcohol use NoMedications reviewed and updated: Armida Patricia MD 07/26/2017 4:05 PM Signed [facility]Patient Instructions for SurgeryFOOD INSTRUCTIONS:NO solid food [...] visit please do nothesitate to contact the [facility] at [phone] or [phone], [phone].Signature: Rivera Patricia MDDate: July 26, 2017Referring Provider: ESEQUIEL THOMAS [[id number]]Allergies As of Date: 07/26/2017 Noted Allergy ReactionSULFA (SULFONAMIDE ANTIBIOTICS) 06/07/2017 4 - Hives 10 - AnaphylaxisDate Reviewed: 07/26/2017Reviewed by: Sis Kirkpatrick LPN - Fully AssessedPrimary Visit Diagnosis:Chronic obstructive pulmonary disease, unspecified COPD type ([facility]) [J44.9] Other Visit Diagnoses:Pre-operative examination [Z01.818] [...] PREDNISONE 10 MG TABLET >> Sis Kirkpatrick LPN 07/26/2017 3:41 PM >> SIS JOSUE L* WedJul 26, 2017 3:41 PM ATENOLOL 50 MG-CHLORTHALIDONE 25 MG TABLET >> Sis Kirkpatrick FUSE COILER 07/26/2017 3:41 PM >> SIS JOSUE D L* WedJul 26, 2017 3:41 PM OXYCODONE-ACETAMINOPHEN 5 MG-325 MG TABLET >> Sis Mcleanter FUSE COILER 07/26/2017 3:41 PM >> SIS JOSUE D L* WedJul 26, 2017 3:41 PM DOCUSATE SODIUM 100 MG CAPSULE >> Sis Kirkpatrick FUSE COILER 07/26/2017 3:41 PM >> SIS JOSUE L* WedJul 26, 2017 3:41 PMProblem List As Of Date 07/26/2017 Noted Resolved 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 Other instructions from your clinician: [facility] Patient Instructions for Surgery FOOD INSTRUCTIONS: [...] please do not hesitate to contact the [facility] at [phone] or [phone], ext [phone]. Signature: Rivera Patricia MD Date: July 26, 2017Encounter Number: [id number] Status:Closed by RIVERA PATRICIA MD on 07/26/17 [facility] CNOV Office Visit (ENDOMN) ----[facility]UST[facility] CORRIGAN ([id number]) 1960 [facility] Vpqlcuhmdw54/30/17 1:20 PM IVAN HYDE) ENDOMN During your visit today, we recorded the following information about you: Weight 73 kgToshia Javed, RN, RN 07/26/2017 2:21 PM SignedThank you for choosing the [facility] Department of Endocrinology,Diabetes and Metabolism. Being [...] a lost opportunity for patients to receive [facility] care at the [facility].To Cancel an appointment, please choose one of the following: - Call the Appointment Call Center at [phone] - From [employer], Go to Appointments ? Cancel ApptsIf cancelling, consider your need to reschedule to prevent further delays inyour care.To Schedule an appointment, please choose one of the following: - Call the Appointment Call Center at [phone] - From [employer], Go to Appointments ? Request an Samara Hyde MD 07/27/2017 11:34 PM SignedDIABETES INITIAL CONSULTPATIENT NAME: Fausto CorriganMRN: [id number] DATE: 07/26/2017SERVICE TIME:REASON FOR CONSULT: DM Type 2REQUESTING PHYSICIAN:Ivan Hyde MD[address] [address]URHCHTQ CARE PHYSICIAN: No PcpSUBJECTIVEHISTORY OF PRESENT ILLNESS: [...] EXAM:Wt 73 kg (161 lb) BMI 31.61 kg/s8Rhdnvkn: Well appearing, alert, in no acute distress, [...] improve once she is off steroids.SIGNATURE: Ivan Hyde MDDATE: July 26, 2017TIME: 2:32 PMReferring Provider: IVAN HYDE) [[id number]]Allergies As of Date: 07/26/2017 Noted Allergy ReactionSULFA (SULFONAMIDE ANTIBIOTICS) 06/07/2017 4 - Hives 10 - AnaphylaxisDate Reviewed: 07/26/2017Reviewed by: Sis [facility] - Fully AssessedReason for Visit: Diabetes [34]Primary Visit Diagnosis:Uncontrolled type 2 diabetes mellitus without complication, without long-term current use of insulin ([facility]) [E11.65]Order(s):HB A1C B/O [7812514] Order #: [id number] TSH BLD [SQTSH] Order #: [id number] FUTUREPrescriptions as of 07/26/2017 Sig: ALBUTEROL SULFATE [...] your clinician: Thank you for choosing the [facility] Department of Endocrinology, Diabetes and Metabolism. Being able to provide excellent health care has allowed us to be # 3 in the country according to [employer]. Did you know that you need to call 48 hours in advance of your scheduled visit, if you are unable to make your appointment? The Endocrinology and Metabolism [place] thanks you for your commitment, because patients not showing to their appointment results in a lost opportunity for patients to receive [facility] health care at the [facility]. To Cancel an appointment, please choose one of the following: - Call the Appointment Call Center at [phone] - From [place], Go to Appointments ? Cancel Appts If cancelling, consider your need to reschedule to prevent further delays in your care. To Schedule an appointment, please choose one of the following: - Call the Appointment Call Center at [phone] - From [place], Go to Appointments ? Request an ApptEncounter Number: [id number] Status:Closed by IVAN HYDE MD on 07/27/17 [facility] CNOV Office Visit (PULMMN) ----FAUSTO CORRIGAN ([id number]) 1960 [facility] Time Provider Tjpqhekgif61/30/17 9:50 AM AIMEE HERNANDEZ During your visit today, we recorded the following information about you: Temperature Pulse Respiration Blood pressure 98.5 degrees 74/minute 20/minute 116/67 Weight Height 73 kg 1.524 Jo Hernandez MD 07/26/2017 3:23 PM SignedAdvanced Care Hospital Of Southern New Mexicoiratory InstitutePulmonary ConsultationCC: Pre-operative evaluationConsultation requested by Dr. 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 2 07/26/2017 12:14:11PM PRE/POST- ATS acceptability and repeatabilitystandards for spirometry met.Medications and Allergies were reviewed forpossibledrug interactions per policy MM-102. No contraindications or sensitivities werenoted. Respiratory meds taken in past 72H: Albuterol / 16 hours before testing. 4 puffs albuterol (360 mcg) delivered by MDI via valved holding chamber, HRpre=80/min, HRpost= 72/min. /JAQUAN//DIO nguyen??IMPRESSION: [facility] [place] Pulmonary Function Lab Pred LLN ULN Pre % Post % % chgDate 920076 627809Vncn 11:44AM 12:10PM Height 152.4 152.4Weight 72.6 72.6 [...] tolerated-Early ambulation and physical therapy as tolerated mrmo-tggepzybdww-Qblvzxlk narcotics as much as possible-Bronchodilators as needed [...] make sure she's feelingbetter and recovered from illnessAmy Santana, MDPulmonary and Critical Care MedicineRespiratory InstituteMorrow County HospitalAimee Hernandez MD 07/26/2017 1:35 PM AddendumConsider lung cancer screening in the futureI would like to see you the day before your surgery to make sure you're feelingbetterPlease get the 6 minute walk test the same dayReferring Provider: ESEQUIEL THOMAS [[id number]]Allergies As of Date: 07/26/2017 Noted Allergy ReactionSULFA [...] wheezing.).Disp: 1 InhalerRfl: 5 SIX MINUTE WALK [3912217] Order #: [id number] FUTUREPrescriptions as of 07/26/2017 Sig: ALBUTEROL SULFATE [...] Gabby Spears TREVOR 07/26/2017 12:51 PM >> GABBY SPEARS MA Jul 26, 2017 12:51 PM Received from: External Pharmacy DOXYCYCLINE HYCLATE 100 MG CAPSULE >> Gabby Spears TREVOR 07/26/2017 12:51 PM >> GABBY SPEARS MA Jul 26, 2017 12:51 PM Received from: External Pharmacy Received Sig: take 1 capsule by mouth twicea day PREDNISONE 10 MG TABLET >> Gabby Shresthagrady MURRAY 07/26/2017 12:51 PM >> CHUYITA TREVORGABBY Jul 26, 2017 12:51 PM Received from: External Pharmacy ATENOLOL 50 MG-CHLORTHALIDONE 25 MG TABLET >> Gabby Spears TREVOR 07/26/2017 12:52 PM >> SPEARS TREVORGABBY Jul 26, 2017 12:52 PM Received from: External Pharmacy Received Sig: take 1 tablet by mouth oncedaily OXYCODONE-ACETAMINOPHEN 5 MG-325 MG TABLET >> Gabby Spears TREVOR 07/26/2017 12:50 PM >> SPEARS TREVORGABBY Jul [...] (on 08/23/2017).Follow-up and Disposition History RecordedEncounter Number: [id number] Status:Closed by AIMEE HERNANDEZ MD on 07/26/17 [facility] Comp Metabolic Panelon 07-26 Alanine aminotransferase (ALT) 19 U/L Normal 7-38 [facility] Comment on above: Performed By: #### C BC, CMP ####[facility] [place], [place] [phone] Albumin 4.3 g/dL Normal 3.9-4.9 [facility] Comment on above: Performed By: #### C BC, CMP ####[place] [address] [address] [place], [place] [phone] Alkaline phosphatase (ALP) 96 U/L Normal 32-117 [facility] Comment on above: Performed By: #### C BC, CMP ####[place] [address] [address] [place], [place] [phone] Anion gap 18 mmol/L Normal 9-18 [facility] Comment on above: Performed By: #### C BC, CMP ####[place] [address] [address] [place], [place] [phone] Aspartate aminotransferase (AST) 16 U/L Normal 13-35 [facility] Comment on above: Performed By: #### C BC, CMP ####[facility] [place] [phone] Bilirubin (total) 0.2 mg/dL Normal 0.2-1.3 [facility] Comment on above: Performed By: #### C BC, CMP ####[facility]CF[address], [place] [phone] Calcium 9.8 mg/dL Normal 8.5-10.2 [facility] Comment on above: Performed By: #### C BC, CMP ####[place] [address], [place] [phone] Chloride 96 mmol/L Low 97-105 [facility] Comment on above: Performed By: #### C MAYANK, CMP ####[address] [phone] CO2 25 mmol/L Normal 22-30 [facility] Comment on above: Performed By: #### C MAYANK, CMP ####[address] [phone] Creatinine 0.98 mg/dL High 0.58-0.96 [facility] Comment on above: Performed By: #### C MAYANK, CMP ####[address] [phone] eGFR (non-black) 59 . Normal [facility] Comment on above: Result Comment: eGFR (Estimated [...] reflect actual GFR. Performed By: #### C MAYANK, CMP ####[address] [phone] eGFR (non-black) mL/min/{1.73_m2} Normal [facility] Comment on above: Performed By: #### C MAYANK, CMP ####[address] [phone] Glucose mass conc 133 mg/dL High 74-99 [facility] Comment on above: Result Comment: The [place] Diabetes Association (ADA) provides guidance for cutoff [...] Standards of Medical Care in Diabetes 2016, [place] Diabetes Association. Diabetes Care. 2016.39(Suppl 1). Performed By: #### C BC, CMP ####[place] [address] [address] [place] [phone] Potassium molar conc 3.9 mmol/L Normal 3.7-5.1 [facility] Comment on above: Performed By: #### C MAYANK, CMP ####[place] [address] [address] [place] [phone] Protein 7.5 g/dL Normal 6.3-8.0 [facility] Comment on above: Performed By: #### C BC, CMP ####[place] [address] [place] [phone] Sodium 139 mmol/L Normal 136-144 [facility] Comment on above: Performed By: #### C BC, CMP ####[place] [address] [address] [place], [place] [phone] Urea nitrogen 20 mg/dL Normal 7-21 [facility] Comment on above: Performed By: #### C BC, CMP ####[place] [address] [place] [phone] Confirm Blood Typeon 017 ABO/RH(D) Positive Normal [facility] Comment on above: Performed By: #### C ONABO ####[facility] [place], [place] [phone] OBSOLETEon 07-26-2017 OBSOLETE Procedure (PULLMN) ----FAUSTO CORRIGAN ([id number]) 1960 FDate Time Provider Bkbdwjwrbe22/30/17 9:00 AM PULM FCT LAB MAIN 6 ADDON PULLMN During your visit today, we recorded the following information about you:Referring Provider: ESEQUIEL THOMAS [[id number]]Allergies As of Date: 07/26/2017 Noted Allergy ReactionSULFA (SULFONAMIDE ANTIBIOTICS) 06/07/2017 4 - Hives 10 - AnaphylaxisDate Reviewed: 06/07/2017Reviewed by: Nicolle (Josr) JOSR Moncada - Fully AssessedReason for Visit: Spirometry [191]Primary Visit Diagnosis:Dyspnea, unspecified type [R06.00] Other Visit Diagnosis:Chronic obstructive pulmonary disease, unspecified COPD type (HCC) [J44.9]Order(s):SPIROMETRY WITH DILATOR IF OBSTRUCTED [[id number]] Order #: [id number]. #:[id number] ons as of 07/26/2017 Sig: OXYCODONE-ACETAMINOPHEN 5 [...] More... Status:Closed by ABIMAEL KENDALL on 07/26/17 [facility] PROGRESSon 07-26-2017 PROGRESS HNO ID: [id number] thor: Geoffrey (Res) JasonenService: (none)Author Type: ResidentType: [...] lb 15 oz) SpO2 96% BMI 31.6 kg/z6Xqumq signs completed by: IMPACTWeight acquired: per HANDP. [...] 26, 2017 : 4:26 PM PAGER/CONTACT #: Kendra [facility] PROGRESS HNO ID: [id number] thor: Sis Kirkpatrick NService: (none)Author Type: (none)Type: Progress NotesFiled: 07/26/2017 4:05 [...] Alcohol use NoMedications reviewed and updated: [facility] PROGRESS HNO ID: [id number] thor: Ivan Sheffield) Dontrell: (none)Author Type: PhysicianType: Progress NotesFiled: 07/27/2017 11:34 PMNote Text:DIABETES INITIAL CONSULTPATIENT NAME: Fausto CorriganMRN: [id number] DATE: 07/26/2017SERVICE TIME:REASON FOR CONSULT: DM Type 2REQUESTING PHYSICIAN:Ivan Hyde MD[address] [facility] [place] [address]ZRNKBON CARE PHYSICIAN: No PcpSUBJECTIVEHISTORY OF PRESENT ILLNESS: [...] EXAM:Wt 73 kg (161 lb) BMI 31.61 kg/b2Pdjksje: Well appearing, alert, in no acute distress, [...] years. She will start taking it again zowwllzzz786 mg twice a day. She has medication at home. Of importance is thattoday her fasting blood sugar was 1 33 mg/dL. We ordered a hemoglobin Q2fvpugb has not been done. We will see her back in 6 weeks a repeathemoglobin A1c. Her blood sugars should improve once she is off steroids.SIGNATURE: Ivan Hyde, MDDATE: July 26, 2017TIME: 2:32 PM [facility] PROGRESS HNO ID: [id number] thor: Cristina Vernon RtService: (none)Author Type: (none)Type: Progress NotesFiled: 07/26/2017 1:40 PMNote Text: Radiology Service Progress NotePATIENT NAME: Fausto CorriganMRN: [id number] OF SERVICE: July 26, 2017TIME: 1:40 PMPATIENT IDENTITY VERIFICATION COMPLETED USING TWO (2) METHODS: Patientconfirmed name verbally and Date of .PATIENT GENDER DATA: MalePATIENT RELEVANT IMPLANT DATA REVIEWED: Not ApplicableRADIOLOGY DEPARTMENT: General X-ray: Exam(s) Completed: Chest X-RayPERIPHERAL IV DATA: Not applicableSIGNED BY: Cristina Vernon RtOct2016 1:40 PM [facility] PROGRESS HNO ID: [id number] thor: Aimee Gonzalez: (none)Author Type: PhysicianType: Progress NotesFiled: 07/26/2017 3:23 PMNote Text:Respiratory InstitutePulmonary ConsultationCC: Pre-operative evaluationConsultation requested by Dr. Thomas for a pre-operative pulmonaryevaluation. 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 2 07/26/2017 12:14:11PM PRE/POST- ATS acceptability andrepeatabilitystandards for spirometry met.Medications and Allergies were reviewed forpossibledrug interactions per policy MM-102. No contraindications orsensitivities werenoted. Respiratory meds taken in past 72H: Albuterol / 16 hours beforetesting. 4 puffs albuterol (360 mcg) delivered by MDI via valved holding chamber, HRpre=80/min, HRpost= 72/min. /JAQUAN//DIO i??IMPRESSION: [facility] Respiratory [place] Pulmonary Function Lab Pred LLN ULN Pre % Post % %chgDate 433901 770189Tozd 11:44AM 12:10PM Height 152.4 152.4Weight 72.6 72.6 [...] 4.28 1.06 34 1.36 4429FIF 50 1.99 2.3791B12/75 2.34 1.25 3.42 0.67 29 0.84 3625FE%FIF 53.13 61.8862WEB1 1.95 2.05 5PEF 5.36 3.63 7.09 4.30 80 5.37 36776KGW 10.82 10.59-2FETPEF 0.08 0.04-56VBe%FV 4.39 3.07 -30VBEex 0.09 0.07-29 VC MAX 2.96 2.35 3.57 2.11 71 2.13 72 1 Luiz c:EKG - NSRASSESSMENT AND Ab Corrigan is a 57 year old female [...] (Gurinder Respiratoray Failure Index. Gurinder, AM. Nancie Sjwj5176; 232: 242). THaving a respiratory infection within the past month increases the risk. Iagree with postponing surgery until Aug 24 to reduce her risk.RECOMMENDATIONS:In order to minimize the risk of complications and optimize pulmonarystatus, we recommend the following:-Encourage aggressive incentive spirometry hourly both ayse-operativelyand post-operatively as tolerated-Early ambulation and physical therapy as tolerated kmgi-hxdcpvrkouh-Psllikbf narcotics as much as possible-Bronchodilators as needed [...] illnessAmy Santana, MDPulmonary and Critical Care MedicineRespiratory InstituteMorrow County Hospital [facility] Type and SCR (30D)on 017 ABO/RH(D) Positive [facility] Comment on above: Performed By: #### T SCR30 ####[facility] [address] [place], [place] [phone] Antibody Screen Negative Normal [facility] Comment on above: Performed By: #### T SCR30 ####[facility] [address] [place], [place] [phone] XR CHEST 2V FRONTAL/LATon XR CHEST 2V [...] abdomen suggest prior cholecystectomy.IMPRESSION:N o acute radiographic abnormality.Fire And Explosion Investigator : PAUL Transcribe Date/Time: Jul 26 2017 2:28PDictated by : FABY SWANSON MDThigrady examination was interpreted and the report reviewed and electronically signed by: CORNELIUS BEAR MD on Jul 26 2017 4:55PM [id number] Normal [facility] HISTORY PHYSICALon HISTORY PHYSICAL HNO ID: [id number] thor: Rivera Sheffield) CassiaaService: (none)Author Type: PhysicianType: HANDPFiled: 07/26/2017 8:42 PMNote [...] or fevers.Neuro: No history of TIA's, stroke, LASER TECHNICIAN tumor, impaired sensorium,hemiplegia, paraplegia or quadriplegia. No neurological symptoms orproblems.Respiratory: COPD on nebulizersCardiovascular: No history of HTN requiring medication, no history ofangina, CHF, [place], cardiac surgery or stents. Denies rest pain, gangrene orrevascularization/amputati on for PVD. No history of cardiovascularsymptoms or problems.GI: Peptic Ulcer Disease on ZantacGU: No history of UTI in past 6 weeks. No history of renal failure. Notcurrently on or requiring dialysis. 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]Order(s):SURGICAL REQUEST - ELECTIVE [[id number]] Order #: [id number]: 1 PER WHAT TO EXPECT DURING YOUR HOSPITAL STAY [1127775] Order #: [id number]: 1 CBC [SQCBC] Order #: [id number] FUTURE COMP METABOLIC PANEL [SQCMP] Order #: [id number] FUTURE CONFIRM BLOOD TYPE [SQCONABO] Order #: [id number] FUTURE TYPE + SCREEN,30 DAY [WQLRCR26] Order #: [id number] FUTURE ECG COMPLETE W INTERPRETATION [ECG01] Order #: [id number] FUTURE REFER FOR ADMIT INTERVIEW [7774571] Order #: [id number] HANDP FOR SURGERY [Q9751QNN] Order #: [id number] CONSULT TO PATIENT EDUCATION [19991031] Order #: [id number]: 1 CONSULT TO ANESTHESIOLOGY [9001] Order #: [id number]: 1 CONSULT TO INT MED-IMPACT [7629147] Order #: [id number]: 1 CONSULT TO PULMONARY MEDICINE [4217773] Order #: [id number]: 1 CONSULT TO ENDOCRINOLOGY [9006] Order #: [id number]: 1Prescriptions as of 06/08/2017 Sig: OXYCODONE-ACETAMINOPHEN 5 [...] FOR* More...Follow-up and Disposition History RecordedEncounter Number: [id number] Status:Closed by ESEQUIEL THOMAS MD, FACS on 06/09/17 [facility] CNOVon 06-07-2017 CNOV Office Visit (TOMAS) ----FAUSTO CORRIGAN ([id number]) 1960 FDa Time Provider Department06/07/17 1:20 PM ESEQUIEL THOMAS During your visit today, we recorded the following information about you: Temperature Pulse Blood pressure Weight 97.8 degrees 79/minute 119/76 73.5 kg Height 1.537 Geovany Thomas MD FACS 06/07/2017 3:44 PM SignedNew Patient ConsultREASON FOR Rafia Corrigan is a 56 year old female who is scheduled for a consult at [facility] of [facility]aid Michaels for Consult (Colovaginal [...] pain during BMs.She does have COPD from snf smoking, but says she only has 3-4 [...] RepositionGeneral: MalaiseNeuro: No history of TIA's, stroke, LASER TECHNICIAN tumor, impaired sensorium, hemiplegia,paraplegia or quadraplegia. No neurological symptoms or problems.Respiratory: COPDCardiovascular: Hx HTNGI: Positive for GERD, PUD, Heartburn, Abdominal pain, Diverticulitis, Historyof polypsGU: No history of UTI in past 6 weeks. No history of renal failure. Notcurrently on or requiring dialysis. No history of symptoms or problems.OPERATIONS ENGINEER: yellow/brown drainage from vagina x2 months : [...] FACSDATE: 06/07/17TIME: 2:32 PMReferring Provider: ZAID MICHAELS [[id number]]Allergies As of Date: 06/07/2017 Noted Allergy ReactionSULFA (SULFONAMIDE ANTIBIOTICS) 06/07/2017 4 - Hives 10 - AnaphylaxisDate Reviewed: 06/07/2017Reviewed by: Nicolle Lamb) JOSR Moncada - Fully AssessedReason for Visit: [...] ESEQUIEL THOMAS MD, FACS on 06/07/17 Normal [facility] HISTORY PHYSICALon HISTORY PHYSICAL HNO ID: [id number] thor: Esequiel Goodwin: (none)Author Type: PhysicianType: HANDPFiled: 06/07/2017 3:44 PMNote Text:New Patient ConsultREASON FOR Rafia Corrigan is a 56 year old female who is scheduled for a consult at [facility] of [facility]aid Michaels for Consult (Colovaginal [...] pain during BMs.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 No neurological symptoms orproblems.Respiratory: COPDCardiovascular: Hx HTNGI: Positive for GERD, PUD, Heartburn, Abdominal pain, Diverticulitis,History of polypsGU: No history of UTI in past 6 weeks. No history of renal failure. Notcurrently on or requiring dialysis. No history of symptoms or problems.OPERATIONS ENGINEER: yellow/brown drainage from vagina x2 months : [...] Thomas MD FACSDATE: 06/07/17TIME: 2:32 PM [facility] SR-CT ABD/PELVIS W CON IMPOR Ton 04-15-2017 SR-CT ABD/PELVIS W CON IMPORT Images were obtained outside of [facility] [id number] [facility] Vital Signs Date Time Vital Sign Value Performing Clinician Faci alfonsoy 01-10-2023 13:45-0500 Body height 154.94 cm Veronique Zhanghholnorma Work Phone: [facility] 250 DO Work Phone: 10-06-2022 13:45-0500 Body mass index (BMI) [Ratio] 29.29 kg/m2 Veronique Jeff Aichholz Work Phone: [facility] 250 DO Work Phone: 10-06-2022 13:45-0500 Body surface area Derived from formula 1.7 m2 Veronique Jeff Aichholz Work Phone: [facility] 250 DO Work Phone: 10-06-2022 13:45-0500 Body weight 70.31 kg Veronique Zhanghholz Work Phone: [facility] 250 DO Work Phone: 10-06-2022 13:45-0500 Diastolic blood pressure 80 mm[Hg] Veronique Zhanghholz Work Phone: [facility] 250 DO Work Phone: 10-06-2022 13:45-0500 Heart rate 72 /min Veronique Zhanghholz Work Phone: [facility] 250 DO Work Phone: 10-06-2022 13:45-0500 Systolic blood pressure 142 mm[Hg] Veronique Jeff Aichholz Work Phone: [facility] 250 DO Work Phone: 10-16-2021 11:41-0500 Body height 154.94 cm Dara Mills Work Phone: [facility] 250 DO Work Phone: 10-16-2021 11:41-0500 Body mass index (BMI) [Ratio] 30.04 kg/m2 Dara Mills Work Phone: [facility] 250 DO Work Phone: 10-16-2021 11:41-0500 Body surface area Derived from formula 1.71 m2 Dara Mills Work Phone: [facility] 250 DO Work Phone: 10-16-2021 11:41-0500 Body weight 72.12 kg Dara Mills Work Phone: [facility] 250 DO Work Phone: 10-16-2021 11:41-0500 Diastolic blood pressure 82 mm[Hg] Dara Mills Work Phone: [facility] 250 DO Work Phone: 10-16-2021 11:41-0500 Heart rate 65 /min Dara Mills Work Phone: [facility] 250 DO Work Phone: 10-16-2021 11:41-0500 Systolic blood pressure 136 mm[Hg] Dara Mills Work Phone: [facility] 250 DO Work Phone: 04-08-2021 11:18-0400 Body height 152.4 cm [facility] Work Phone: 04-08-2021 11:18-0400 Body mass index (BMI) [Ratio] 30.66 kg/m2 [facility] Work Phone: 04-08-2021 11:18-0400 Body weight 71.22 kg [facility] Work Phone: 04-08-2021 11:18-0400 Diastolic blood pressure 82 mm[Hg] [facility] Work Phone: 04-08-2021 11:18-0400 Heart rate 64 /min [facility] Work Phone: 04-08-2021 11:18-0400 Respiratory rate 18 /min [facility] Work Phone: 04-08-2021 11:18-0400 SaO2% (BldA) [Mass fraction] 97 % [facility] Work Phone: 04-08-2021 11:18-0400 Systolic blood pressure 144 mm[Hg] [facility] Work Phone: Encounters Encounter Date Encounter Type Care Provider Facility Start: 01-17-2024 ambulatory UNKNOWN PROVIDER Facili ty:[facility] Start: 01-19-2023 End: 01-19-2023 ambulatory BORA ZAMANSAVANNAHNorma Facility:[facility] Start: 10-06-2022 Office outpatient vi sit 25 minutes Veronique ZhangJust Eatdanni Work Phone: [facility] 250 DO Work Phone: Start: 10-06-[address] Rafael Washington Facility: Start: 09-23-2022 Rx Renewal Dara Mills Work Phone: [facility] 250 DO Work Phone: Start: 09-01-2022 End: 09-02-2022 ambulatory OLIVER ALVARADO . Facility:[facility] Start: 07-08-[address] Rafael Washington Facility: Start: 06-17-2022 End: 06-18-2022 ambulatory BAND EDGER VERONIQUE CORDON Facility:[facility] Start: 03-12-2022 End: 03-13-2022 ambulatory BORA AMBRIZ TIAGOChongDANNI Facility:[facility] Start: 10-16-[address] Rafael Washington Facility: Start: 10-16-2021 Office outpatient vi sit 15 minutes Dara Mills Work Phone: [facility] 250 DO Work Phone: Start: 08-18-2021 End: 08-19-2021 ambulatory [facility] Start: 07-31-2021 End: 08-01-2021 ambulatory [facility] Start: 07-31-2021 End: 07-31-2021 Subsequent hospital visit by physician [facility] Comment on above: Arrived Start: 07-30-2021 End: 07-31-2021 ambulatory [facility] Start: 07-30-2021 End: 07-30-2021 Subsequent hospital visit by physician [facility] Rm 1 [facility] Comment on above: Arrived Start: 07-21-2021 End: 07-22-2021 ambulatory [facility] Start: 07-21-2021 End: 07-21-2021 Subsequent hospital visit by physician [facility] Rm 1 [facility] Comment on above: Arrived Start: 07-17-2021 End: 07-18-2021 ambulatory [facility] Start: 07-17-2021 End: 07-17-2021 Subsequent hospital visit by physician [facility] Rm 1 [facility] Comment on above: Arrived Start: 07-10-2021 End: 07-11-2021 ambulatory [facility] Start: 07-10-2021 End: 07-10-2021 Subsequent hospital visit by physician [facility] Rm 1 [facility] Comment on above: Arrived Start: 07-09-2021 End: 07-10-2021 ambulatory [facility] Start: 07-09-2021 End: 07-09-2021 Subsequent hospital visit by physician [facility] Rm 1 [facility] Comment on above: Arrived Start: 07-07-2021 End: 07-07-2021 Subsequent hospital visit by physician [facility] Rm 1 [facility] Comment on above: Arrived Start: 07-02-2021 End: 07-03-2021 ambulatory [facility] Start: 07-02-2021 End: 07-02-2021 Subsequent hospital visit by physician [facility] Rm 2 [facility] Card[facility] Re[facility] Comment on above: Arrived Start: 05-29-2021 End: 05-30-2021 ambulatory [facility] Start: 05-28-2021 End: 05-29-2021 ambulatory [facility] Start: 05-28-2021 End: 05-28-2021 Subsequent hospital visit by physician [facility] Rm 2 [facility] Cardiac Rehab Comment on above: Arrived Start: 05-26-2021 End: 05-27-2021 ambulatory [facility] Start: 05-26-2021 End: 05-26-2021 Subsequent hospital visit by physician [facility] Rm 2 [facility] Card[facility] Re[facility] Comment on above: Arrived Start: 05-22-2021 End: 05-23-2021 ambulatory [facility] Start: 05-22-2021 End: 05-22-2021 Subsequent hospital visit by physician [facility] Rm 2 [facility] Card[facility] Re[facility] Comment on above: Arrived Start: 05-19-2021 End: 05-20-2021 ambulatory [facility] Start: 05-19-2021 End: 05-19-2021 Subsequent hospital visit by physician [facility] Rm 2 [facility] Cardiac Rehab Comment on above: Arrived Start: 05-15-2021 End: 05-16-2021 ambulatory [facility] Start: 05-15-2021 End: 05-15-2021 Subsequent hospital visit by physician [facility] Rm 2 [facility] Cardiac Rehab Comment on above: Arrived Start: 05-12-2021 End: 05-13-2021 ambulatory [facility] Start: 05-08-2021 End: 05-09-2021 ambulatory [facility] Start: 05-08-2021 End: 05-08-2021 Subsequent hospital visit by physician [facility] Rm 2 [facility] Cardiac Rehab Comment on above: Arrived Start: 05-07-2021 End: 05-08-2021 ambulatory [facility] Start: 05-05-2021 End: 05-06-2021 ambulatory [facility] Start: 05-01-2021 End: 05-02-2021 ambulatory [facility] Start: 04-28-2021 End: 04-29-2021 ambulatory [facility] Start: 04-28-2021 End: 04-28-2021 Subsequent hospital visit by physician [facility] Rm 2 [facility] Cardiac Rehab Comment on above: Arrived Start: 04-23-2021 End: 04-24-2021 ambulatory [facility] Start: 04-23-2021 End: 04-23-2021 Subsequent hospital visit by physician [facility]m 2 [facility] Comment on above: Arrived Start: 04-21-2021 End: 04-22-2021 ambulatory [facility] Start: 04-21-2021 End: 04-21-2021 Subsequent hospital visit by physician [facility] Rm 2 [facility] Comment on above: Arrived Start: 04-14-2021 End: 04-15-2021 ambulatory [facility] Start: 04-14-2021 End: 04-14-2021 Subsequent hospital visit by physician [facility] Rm 2 [facility] Comment on above: Arrived Start: 04-10-2021 End: 04-11-2021 ambulatory [facility] Start: 04-08-2021 End: 04-09-2021 ambulatory [facility] Start: 04-08-2021 End: 04-08-2021 Subsequent hospital visit by physician [facility] Cr Education Room [facility] Comment on above: Arrived Start: 05-19-2018 Patient encounter THOMAS DELGADILLO Facility:[facility] Start: 03-17-2018 End: 03-17-2018 Patient encounter THOMAS DELGADILLO Facility:[facility] Start: 02-03-2018 Patient encounter THOMAS DELGADILLO Facility:[facility] Start: 07-26-2017 End: 07-26-2017 Ambulatory ESEQUIEL THOMAS [facility] Start: 07-26-2017 End: 07-26-2017 Ambulatory IVAN HYDE [facility] Start: 07-26-2017 End: 07-27-2017 Ambulatory ESEQUIEL THOMAS [facility] Start: 07-26-2017 End: 07-26-2017 Ambulatory ESEQUIEL THOMAS [facility] Start: 06-07-2017 End: 06-07-2017 Ambulatory ESEQUIEL Donnelly YANELIS [facility] Procedures Date Procedure Procedure Detail Performing Clinician [...] Rafael Washington, Status: Pen, Time: 10:30 AM [facility] 250 DO Work Phone: Start: 10-06-2022 FUV, Provider: Rafael Washington, Status: Pen, Time: 1:20 PM FUV, Provider: Rafael Washington, Status: Pen, Time: 1:20 PM [facility] 250 DO Work Phone: Start: 04-14-2022 FUV, Provider: Rafael Washington, Status: Pen, Time: 11:20 AM [facility], Provider: Rafael Washington, Status: Pen, Time: 11:20 AM [facility] 250 DO Work Phone: Start: 08-18-2021 End: 08-18-2021 Patient encounter procedure 08/18/2021 Appointment Cardiac Rehabilitation [facility] Start: 08-18-2021 End: 08-18-2021 Patient encounter procedure 08/18/2021 Appointment Cardiac Rehabilitation [facility] Start: 08-14-2021 End: 08-14-2021 Patient encounter procedure 08/14/2021 Appointment Cardiac Rehabilitation [facility] Start: 08-14-2021 End: 08-14-2021 Patient encounter procedure 08/14/2021 Appointment Cardiac Rehabilitation [facility] Start: 08-13-2021 End: 08-13-2021 Patient encounter procedure 08/13/2021 Appointment Cardiac Rehabilitation [facility] Start: 08-13-2021 End: 08-13-2021 Patient encounter procedure 08/13/2021 Appointment Cardiac Rehabilitation [facility] Start: 08-11-2021 End: 08-11-2021 Patient encounter procedure 08/11/2021 Appointment Cardiac Rehabilitation [facility] Start: 08-11-2021 End: 08-11-2021 Patient encounter procedure 08/11/2021 Appointment Cardiac Rehabilitation [facility] Start: 08-07-2021 End: 08-07-2021 Patient encounter procedure 08/07/2021 Appointment Cardiac Rehabilitation [facility] Start: 08-07-2021 End: 08-07-2021 Patient encounter procedure 08/07/2021 Appointment Cardiac Rehabilitation [facility] Start: 08-06-2021 End: 08-06-2021 Patient encounter procedure 08/06/2021 Appointment Cardiac Rehabilitation [facility] Start: 08-06-2021 End: 08-06-2021 Patient encounter procedure 08/06/2021 Appointment Cardiac Rehabilitation [facility] Start: 08-04-2021 End: 08-04-2021 Patient encounter procedure 08/04/2021 Appointment Cardiac Rehabilitation [facility] Start: 08-04-2021 End: 08-04-2021 Patient encounter procedure 08/04/2021 Appointment [facility]iac Rehabilitation [facility] Start: 07-31-2021 End: 07-31-2021 Patient encounter procedure 07/31/2021 Appointment Cardiac Rehabilitation [facility] Start: 07-31-2021 End: 07-31-2021 Patient encounter procedure 07/31/2021 Appointment Cardiac Rehabilitation [facility] Start: 07-30-2021 End: 07-30-2021 Patient encounter procedure 07/30/2021 Appointment [facility]iac Rehabilitation [facility] Start: 07-30-2021 End: 07-30-2021 Patient encounter procedure 07/30/2021 Appointment [facility]iac Rehabilitation [facility] Start: 07-28-2021 End: 07-28-2021 Patient encounter procedure 07/28/2021 Appointment Cardiac Rehabilitation [facility] Start: 07-28-2021 End: 07-28-2021 Patient encounter procedure 07/28/2021 Appointment [facility]iac Rehabilitation [facility] Start: 2021 End: 2021 Patient encounter procedure 2021 Appointment [facility]iac [facility] Start: 2021 End: 2021 Patient encounter procedure 2021 Appointment Cardiac Rehabilitation [facility] Start: 07-23-2021 End: 07-23-2021 Patient encounter procedure 07/23/2021 Appointment Cardiac Rehabilitation [facility] Start: 07-23-2021 End: 07-23-2021 Patient encounter procedure 07/23/2021 Appointment Cardiac Rehabilitation [facility] Start: 07-21-2021 End: 07-21-2021 Patient encounter procedure 07/21/2021 Appointment Cardiac Rehabilitation [facility] Start: 07-17-2021 End: 07-17-2021 Patient encounter procedure 07/17/2021 Appointment Cardiac Rehabilitation [facility] Start: 07-16-2021 End: 07-16-2021 Patient encounter procedure 07/16/2021 Appointment Cardiac Rehabilitation [facility] Start: 07-14-2021 End: 07-14-2021 Patient encounter procedure 07/14/2021 Appointment Cardiac Rehabilitation [facility] Start: 07-10-2021 End: 07-10-2021 Patient encounter procedure 07/10/2021 Appointment Cardiac Rehabilitation [facility] Start: 07-09-2021 End: 07-09-2021 Patient encounter procedure 07/09/2021 Appointment Cardiac Rehabilitation [facility] Start: 07-07-2021 End: 07-07-2021 Patient encounter procedure 07/07/2021 Appointment Cardiac Rehabilitation [facility] Start: 07-03-2021 End: 07-03-2021 Patient encounter procedure 07/03/2021 Appointment Cardiac Rehabilitation [facility] Start: 07-02-2021 End: 07-02-2021 Patient encounter procedure 07/02/2021 Appointment Cardiac Rehabilitation [facility] Start: 06-30-2021 End: 06-30-2021 Patient encounter procedure 06/30/2021 Appointment Cardiac Rehabilitation [facility] Start: 06-26-2021 End: 06-26-2021 Patient encounter procedure 06/26/2021 Appointment Cardiac Rehabilitation [facility] Start: 06-25-2021 End: 06-25-2021 Patient encounter procedure 06/25/2021 Appointment Cardiac Rehabilitation [facility] Start: 06-23-2021 End: 06-23-2021 Patient encounter procedure 06/23/2021 Appointment Cardiac Rehabilitation [facility] Start: 06-19-2021 End: 06-19-2021 Patient encounter procedure 06/19/2021 Appointment Cardiac Rehabilitation [facility] Start: 06-18-2021 End: 06-18-2021 Patient encounter procedure 06/18/2021 Appointment Cardiac Rehabilitation [facility] Start: 06-16-2021 End: 06-16-2021 Patient encounter procedure 06/16/2021 Appointment Cardiac Rehabilitation [facility] Start: 06-12-2021 End: 06-12-2021 Patient encounter procedure 06/12/2021 Appointment Cardiac Rehabilitation [facility] Start: 06-11-2021 End: 06-11-2021 Patient encounter procedure 06/11/2021 Appointment Cardiac Rehabilitation [facility] Start: 06-09-2021 End: 06-09-2021 Patient encounter procedure 06/09/2021 Appointment Cardiac Rehabilitation [facility] Start: 06-05-2021 End: 06-05-2021 Patient encounter procedure 06/05/2021 Appointment Cardiac Rehabilitation [facility] Start: 06-04-2021 End: 06-04-2021 Patient encounter procedure 06/04/2021 Appointment Cardiac Rehabilitation [facility] Start: 06-02-2021 End: 06-02-2021 Patient encounter procedure 06/02/2021 Appointment Cardiac Rehabilitation [facility] Start: 05-29-2021 End: 05-29-2021 Patient encounter procedure 05/29/2021 Appointment Cardiac Rehabilitation [facility] Start: 05-28-2021 Influenza vaccination Flu vaccine (# 1) [facility] Phone: Start: 05-28-2021 End: 05-28-2021 Patient encounter procedure 05/28/2021 Appointment Cardiac Rehabilitation [facility] Start: 05-26-2021 End: 05-26-2021 Patient encounter procedure 05/26/2021 Appointment Cardiac Rehabilitation [facility] Start: 05-22-2021 End: 05-22-2021 Patient encounter procedure 05/22/2021 Appointment Cardiac Rehabilitation [facility] Start: 05-21-2021 End: 05-21-2021 Patient encounter procedure 05/21/2021 Appointment Cardiac Rehabilitation [facility] Start: 05-19-2021 End: 05-19-2021 Patient encounter procedure 05/19/2021 Appointment Cardiac Rehabilitation [facility] Start: 05-15-2021 End: 05-15-2021 Patient encounter procedure 05/15/2021 Appointment Cardiac Rehabilitation [facility] Start: 05-14-2021 End: 05-14-2021 Patient encounter procedure 05/14/2021 Appointment Cardiac Rehabilitation [facility] Start: 05-12-2021 End: 05-12-2021 Patient encounter procedure 05/12/2021 Appointment Cardiac Rehabilitation [facility] Start: 05-08-2021 End: 05-08-2021 Patient encounter procedure 05/08/2021 Appointment Cardiac Rehabilitation [facility] Start: 05-07-2021 End: 05-07-2021 Patient encounter procedure 05/07/2021 Appointment Cardiac Rehabilitation [facility] Start: 05-05-2021 End: 05-05-2021 Patient encounter procedure 05/05/2021 Appointment Cardiac Rehabilitation [facility] Start: 05-01-2021 End: 05-01-2021 Patient encounter procedure 05/01/2021 Appointment Cardiac Rehabilitation [facility] Start: 04-30-2021 End: 04-30-2021 Patient encounter procedure 04/30/2021 Appointment Cardiac Rehabilitation [facility] Start: 04-28-2021 End: 04-28-2021 Patient encounter procedure 04/28/2021 Appointment Cardiac Rehabilitation [facility] Start: 04-24-2021 End: 04-24-2021 Patient encounter procedure 04/24/2021 Appointment Cardiac Rehabilitation [facility] Start: 04-23-2021 End: 04-23-2021 Patient encounter procedure 04/23/2021 Appointment Cardiac Rehabilitation [facility] Start: 04-21-2021 End: 04-21-2021 Patient encounter procedure 04/21/2021 Appointment Cardiac Rehabilitation [facility] Start: 04-17-2021 End: 04-17-2021 Patient encounter procedure 04/17/2021 Appointment Cardiac Rehabilitation [facility] Start: 04-16-2021 End: 04-16-2021 Patient encounter procedure 04/16/2021 Appointment Cardiac Rehabilitation [facility] Start: 04-14-2021 End: 04-14-2021 Patient encounter procedure 04/14/2021 Appointment Cardiac Rehabilitation [facility] Start: 04-10-2021 End: 04-10-2021 Patient encounter procedure 04/10/2021 Appointment Cardiac Rehabilitation [facility] Start: 2012 Screening for malign ant neoplasm of breast Breast cancer screen [facility] Phone: Start: 2012 Shingles Vaccine (1 of 2) Shingles Vaccine (1 of 2) [facility] Phone: Start: 2007 Screening for malign ant neoplasm of colon Colon cancer screen colonoscopy [facility] Phone: Start: 2002 Diabetes screen Diabetes screen [facility] Phone: Start: 1992 Screening for malign ant neoplasm of cervix [facility] Phone: Start: 1983 Screening for malign ant neoplasm of cervix [facility] Phone: Start: 1981 DTaP/Tdap/Td vaccine (1 - Tdap) DTaP/Tdap/Td vaccine (1 - Tdap) [facility] [address] Phone: Start: 1977 HIV screening HIV screen [facility] Work Phone: Start: 1974 COVID-19 Vaccine (1) COVID-19 Vaccin e (1) [facility] [address] Phone: Start: 1972 Lipid panel Lipid screen [facility] Work Phone: Start: 1968 Pneumococcal 0-64 ye ars Vaccine (1 of 2 - PPSV23) Pneumococcal 0-64 years Vaccine (1 of 2 - PPSV23) [facility] [address] Phone: Start: 1962 Creatinine measurement Creatinine mo nitoring [facility] [address] Phone: Start: 1962 Hepatitis C screening Hepatitis C sc reen [facility] [address] Phone: Start: 1962 Potassium monitoring Potassium monit oring [facility] [address] Phone: CARDIAC PHASE II [facility] Work Phone: Comment on above: Ordered: 05/26/2021 Ordered: 05/28/2021 Ordered: 07/02/2021 Payers Date Payer Category Payer Unknown [id number] 2.16.8 [id number] 1962 Unknown [id number] 2.16.8 [id number] 1962 Unknown [id number] 2.16.8 40.1.909751.3.579.2.173 1962 Unknown [id number] 2.16.8 40.1.533246.3.579.2.173 1962 Unknown [id number] 2.16.8 40.1.690650.3.579.2.173 1962 Unknown [id number] 2.16.8 40.1.354008.3.579.2.173 1962 Unknown [id number] 2.16.8 40.1.752508.3.579.2.173 1962 Unknown [id number] 2.16.8 40.1.784920.3.579.2.173 1962 Unknown [id number] 2.16.8 40.1.066868.3.579.2.173 1962 Unknown [id number] 2.16.8 40.1.019624.3.579.2.173 1962 Unknown [id number] 2.16.8 40.1.935706.3.579.2.173 1962 Unknown [id number] 2.16.8 40.1.503818.3.579.2.173 1962 Unknown [id number] 2.16.8 40.1.371710.3.579.2.173 1962 Unknown [id number] 2.16.8 40.1.434573.3.579.2.173 1962 Unknown [id number] 2.16.8 40.1.813082.3.579.2.173 1962 Unknown [id number] 2.16.8 40.1.471362.3.579.2.173 1962 Unknown [id number] 2.16.8 40.1.437401.3.579.2.173 1962 Unknown [id number] 2.16.8 40.1.885440.3.579.2.173 1962 Unknown [id number] 2.16.8 40.1.743277.3.579.2.173 1962 Unknown [id number] 2.16.8 40.1.101988.3.579.2.173 1962 Unknown [id number] 2.16.8 40.1.817002.3.579.2.173 1962 Unknown [id number] 2.16.8 40.1.614380.3.579.2.173 1962 Unknown [id number] 2.16.8 40.1.888252.3.579.2.173 1962 Unknown [id number] 2.16.8 40.1.107709.3.579.2.173 1962 Unknown [id number] 2.16.8 40.1.595415.3.579.2.173 1962 Unknown [id number] 2.16. 840.1.702759.3.579.2.356 1962 Unknown [id number] 2.16. 840.1.991261.3.579.2.356 1962 Unknown [id number] 2.16. 840.1.002051.3.579.2.356 1962 Unknown [id number] 2.16.84 0.1.481208.3.579.2.593 1962 Unknown [id number] 2.16.84 0.1.053895.3.579.2.593 1962 Unknown [id number] 2.16.84 0.1.731902.3.579.2.593 1962 Unknown [id number] 2.16.84 0.1.484422.3.579.2.593 1962 Unknown [id number] 2.16. 840.1.415995.3.579.2.732 1959 Medicaid [id number] 1959 Unknown [id number] Unknown Social History Date Type Detail Facility Start: 04-08-2021 Tobacco smoking stat [facility] Current every day smoker [facility] Phone: History of tobacco use Cigarette Smoker [facility] [employer] Start: 04-08-2021 Cigarettes smoked current (pack per day) - Reported [facility] Phone: Comment on above: POP DAILY; 6 CIGS A DAY; Start: 04-08-2021 Tobacco use and exposure Never used [employer] Start: 04-08-2021 Alcohol intake Ex-drinker (finding) [employer] Work Phone: Start: 04-08-2021 Tobacco Comment 2 cigs a day [employer] Work Phone: Start: 1960 Sex Assigned At Not on file M [employer] Work Phone: History of Present illness Narrative 04-08-2021 Dana Romero RN - 04/08/2021 11:00 AM EDT Note Date & Type Note Facility 04-08-2021 History of Present illness Narrative Cardiac Rehab Initial History and Assessment Fausto Amayates 1960 04/08/2021 Primary Diagnosis: s/p PTCA Living Will: No On File: N/A Durable Power of Stacker:No Medical History Past Medical History: Diagnosis Date [...] living? *If greater than 5 symptoms listed, psychotherapist social worker notified. Cardiac Rehab Pre - [...] daily -smoking cessation documented in this encounter [employer] Phone: Summary Purpose Family History No Family [...] Mother, Father(V16.9, Z80.9) Status:Active Heart problem: MotherAnel Status:Active Advance Directives No Advanced Directives Records [...] for follow-up. She had inferior ST elevation [place] with primary revascularization of the RCA in [...] She has a history of previous inferior [place] in February 2021 (late presenting [place]) with PCI of the RCA at that [...] section and content) DATE CREATED AUTHOR 03/22/2018 [facility] DATE CREATED AUTHOR AUTHOR'S ORGANIZ ATION 04/18/2018 [facility] DATE CREATED AUTHOR AUTHOR'S ORGANIZ ATION 04/18/2018 [facility] DATE CREATED AUTHOR AUTHOR'S ORGANIZ ATION 04/08/2021 Douglas Montoya [facility] DATE CREATED AUTHOR AUTHOR'S ORGANIZ ATION 08/21/2021 [facility] DATE CREATED AUTHOR AUTHOR'S ORGANIZ ATION 10/19/2021 [facility] DATE CREATED AUTHOR AUTHOR'S ORGANIZ ATION 10/06/2022 [facility] DATE CREATED AUTHOR AUTHOR'S ORGANIZ ATION 10/07/2022 [employer] DATE CREATED AUTHOR AUTHOR'S ORGANIZ ATION 01/21/2023 [facility] DATE CREATED AUTHOR AUTHOR'S ORGANIZ ATION 01/18/2024 [employer] FOR RECORDS PERTAINING TO PATIENTS WHO ARE [...] BE BASED ON THE PRIMARY CLINICAL RECORDS. [facility]. provides no warranty or guarantee of the accuracy or completeness of information in this document.
[2024-03-09 12:14] LABS: Alanine Aminotransferase 18 U/L (14-59); Albumin Globulin Ratio 0.7; Alkaline Phosphatase 146 U/L (46-116); Anion Gap 11.2; Aspartate Amino Transferase 11 U/L (15-37); BUN Creatinine Ratio 15.6; Bilirubin Total 0.5 mg/dL (0.2-1.0); Calcium 8.7 mg/dL (8.5-10.1); Carbon Dioxide 29.5 mmol/L (21.0-32.0); Chloride 105 mmol/L (98-107); Estimated GFR (African America >60 (>=60); Estimated GFR (Non-African Ame 59 (>=60); Globulin 4.4 g/dL; Glucose 121 mg/dL (74-106); Potassium 3.7 mmol/L (3.5-5.1); Sodium 142 mmol/L (136-145); Total Protein 7.4 g/dL (6.4-8.2)
== END 2024-03-09 11:34 | disposition home or self-care (01) ==
LOC: LAB 11:34
PROVIDERS: PCP Nurse Practitioner; Visit Provider Nurse Practitioner
DX: R74.8 Abnormal levels of other serum enzymes (principal); E87.6 Hypokalemia
CPT/HCPCS: 36415; 80053

== ENCOUNTER 2024-04-06 22:02 | Emergency (ER) | payer OTHER, SELFPAY ==
[2024-04-06 22:09] VITALS: BP 167/71; PULSE 78; TEMP 36.6; O2SAT 97; BMI 24.4
--- NOTE | 2024-04-06 22:35 | ED_ITS ---
HPI HPI - Extremity Injury (Upper) General Chief Complaint: Extremity Injury, Upper Stated Complaint: upper extremity injury Time Seen by Provider: 04/06/24 22:21 Source: patient Mode of arrival: walk-in Limitations: no limitations History of Present Illness HPI narrative: presents complaining of pain right shoulder for past month. Not able to recall any specific injury. Able to use the shoulder but has most of the pain when pulling on the shoulder. no numbness or weakness. No other complaint. Related Data Allergies Allergy/AdvReac Type Severity Reaction Status Date / Time Sulfa (Sulfonamide Allergy Anaphylaxis Verified 04/06/24 22:08 Antibiotics) Opioid HPI Opioid Management Most Recent Pain and Opioid Data: No Data to Display Review of Systems ROS Status of ROS 10 or more systems reviewed and unremark able except as noted in history and below Exam Constitutional Vital Signs, click to edit/add: Last Vital Signs Temp 97.8 F 04/06/24 22:09 Pulse 78 04/06/24 22:09 Resp 18 04/06/24 22:09 BP 167/71 H 04/06/24 22:09 Pulse Ox 97 04/06/24 22:09 O2 Del Method Room Air 04/06/24 22:09 Common normals: no apparent distress, average body habitus, oriented x3, no limitations, healthy appearing, alert and well nourished [facility] Common normals: normocephalic and head/scalp atraumatic Eye Common normals: EOMs intact bilaterally and conjunctivae normal Respiratory Common normals: normal respiratory effort, no retractions, no use of accessory muscles and clear to auscultation bilaterally Cardio Common normals: regular rate, regular rhythm and S1 normal heart sound Extremity Common normals: normal to inspection Other: mild tenderness right shoulder. No deformity. FROM Neuro Common normals: oriented x3, CN's II-XII intact bilaterally, moves all extremities and no focal motor deficits Psych Appearance: grossly normal Course Vital Signs Vital signs: Vital Signs Temperature 97.8 F 04/06/24 22:09 Pulse Rate 78 04/06/24 22:09 Respiratory Rate 18 04/06/24 22:09 Blood Pressure 167/71 H 04/06/24 22:09 Pulse Oximetry 97 04/06/24 22:09 Oxygen Delivery Method Room Air 04/06/24 22:09 Temperature 97.8 F 04/06/24 22:09 Pulse Rate 78 04/06/24 22:09 Respiratory Rate 18 04/06/24 22:09 Blood Pressure 167/71 H 04/06/24 22:09 Pulse Oximetry 97 04/06/24 22:09 Oxygen Delivery Method Room Air 04/06/24 22:09 MDM - Extremity Injury (Upper) MDM Narrative Medical decision making narrative: presents with ongoing pain right shoulder for past month. not able to recall injury. Able to use the shoulder but uncomfortable. xray with evidence of DJD. Patient informed of the diagnosis and advised to follow up with ortho due to her ongoing complaint of pain Imaging Data Abdominal x-ray: Radiologist's impression: N: [id number] date: 1960 Sex: F Assigned Patient Location: ER Current Patient Location: ER Accession/Order Number: [id number] Exam Date: 04/06/2024 22:48 Report Date: 04/06/2024 23:19 At the request of: MARIANO SAAB Procedure: XR shoulder RT min 2V EXAM: XR shoulder RT min 2V HISTORY: pain COMPARISON: None. FINDINGS/IMPRESSION: 1. No acute fracture or dislocation. 2. Mild degeneration of the acromioclavicular joint. 3. Visualized portion of the right lung is clear. Electronically authenticated by: GIBRAN VAZQUEZ Date: 04/06/2024 23:19 Discharge Plan Discharge Stand Alone Forms: Portal Instructions Chief Complaint: Extremity Injury, Upper Clinical Impression: Arthritis of shoulder Patient Disposition: Home, Self-Care Print Language: American Instructions: Arthritis (ED) Additional Instructions: follow up with Dr shaw Referrals: Veronique Harris NP [Primary Care Provider] - 1 week
--- NOTE | 2024-04-06 22:35 | XR_ITS ---
[address] [address] Patient Name: FAUSTO KRISHNAMURTHY MRN: [id number] date: 1960 Sex: F Assigned Patient Location: ER Current Patient Location: ER Accession/Order Number: [id number] Exam Date: 04/06/2024 22:48 Report Date: 04/06/2024 23:19 At the request of: MARIANO SABA Procedure: XR shoulder RT min 2V EXAM: XR shoulder RT min 2V HISTORY: pain COMPARISON: None. FINDINGS/IMPRESSION: 1. No acute fracture or dislocation. 2. Mild degeneration of the acromioclavicular joint. 3. Visualized portion of the right lung is clear. Electronically authenticated by: GIBRAN VAZQUEZ Date: 04/06/2024 23:19
== END 2024-04-06 23:42 | disposition home or self-care (01) ==
PROVIDERS: Emergency Provider Internal Medicine; PCP Nurse Practitioner
DX: M19.011 Primary osteoarthritis, right shoulder (principal)
CPT/HCPCS: 73030; 99283

== ENCOUNTER 2024-04-12 11:40 | Outpatient (OUT) | payer OTHER, SELFPAY ==
--- OUTSIDE RECORDS SUMMARY | 2024-04-12 11:58 | XMS_ITS | CCD ---
Author Organization 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 Role Phone YANELIS, ESEQUIEL C Unavailable [...] Unavailable THOMAS DELGADILLO Unavailable Unavailmaddie Mills MD, [facility] Primary Care Provider [phone] ROSS, DARA Primary Care Unavailable ROSS, DARA [...] Unavailable SAMSA ., OLIVER Attending Unavailable AICHHOLZ, SALES ASSISTANT VERONIQUE Primary Care Unavailable DR HANNAH MOORE Consulting Unavailable SAMSA ., OLIVER Consulting Unavailable AICHHOLZ, SALES ASSISTANT VERONIQUE Admitting Unavailable AICHHOLZ, SALES ASSISTANT VERONIQUE Attending Unavailable AICHHOLZ, SALES ASSISTANT VERONIQUE Primary Care Unavailable AICHHOLZ, SALES ASSISTANT VERONIQUE Consulting Unavailable AICHHOLZ, SALES ASSISTANT VERONIQUE Admitting Unavailable AICHHOLZ, SALES ASSISTANT VERONIQUE Attending Unavailable AICHHOLZ, SALES ASSISTANT VERONIQUE Primary Care Unavailable AICHHOLZ, SALES ASSISTANT VERONIQUE Consulting Unavailable AICHHOLZ, SALES ASSISTANT VERONIQUE Primary Care Unavailable MARIANO SAAB Admitting Unavailable MARIANO SAAB Attending Unavailable SHILA CALLOWAY Consulting Unavailabl e PROVIDER, UNKNOWN Admitting Unavailable LILLIAN QUICK Attending Unavailable AICHHOLZ, VERONIQUE Attending Unavailable Allergies Allergy Classification Reported Allergen(s) Allergy Type Date of Onset Reaction(s) Facility Sulfonamides (antibiotic) (6 sources) Sulfonamides (Antibiotic) Drug Allergy 1 [facility] (3 sources) Sulfonamides (Antibiotic); Translations: [SULFA (SULFONAMIDE ANTIBIOTICS)] Propensity to adverse reactions to drug (disorder) 7 [facility] (13 sources) Sulfonamides (Antibiotic) Propensity to adverse reactions to drug 1 [facility] (4 sources) Sulfamethoxazole; Translations: [sulfa] Drug Allergy Itching [place] [address] DO Work Phone: (1 source) Sulfonamides (Antibiotic) Drug allergy (disorder) 3 [facility] Repository Medications Current Medications Medication Drug Class(es) [...] Drug Class(es) Dates Sig (Normalized) Sig (Original) [id number] 200 actuat albuterol 0.09 mg/actuat metered dose [...] [Coronary atherosclerosis of unspecified type of vessel, [place] or graft] Chronic Diabetes mellitus without complication [...] 03-17-2018 Chronic Other aftercare (1 source) Other terminologist (current) drug therapy; Translations: [OTH HALF-WAY CURRENT DRUG THERAPY] Onset: 01-20-2023 Episodic Other [...] (F17.200) 6 CIGS A DAY History of NM (myocardial infarction) (412) (I25.2) Benign essential hypertension [...] we can help. You may also call 3-533-XKKL-NOW for free resources and assistance.; Status:Complete - Retrospective Authorization; Done: [id number] Tobacco Use Screening; Status:Complete; Done: [id number] Patient Instructions Please bring all medicines, vitamins, [...] She has a history of previous inferior NM in February 2021 (late presenting NM) with PCI of the RCA at that [...] DAILY Current (more content not included)... Normal [email or web address] Tobacco Screening.on 023 Adult depression screening assessment No -[facility] [employer] 250 DO Work Phone: Fall risk assessment c) Not medically indicated MP-No rth [facility] 250 DO Work Phone: Tobacco use status CPHS a) Yes -[facility] [employer] [place] 250 DO Work Phone: Tobacco Screening. Yes [facility] 250 DO Work Phone: [...] HANNAH MOORE Date: 2022-09-01 10:57 Normal [facility] CBC AUTO DIFFon 06-17-2022 BASO # 0.1 103/ul Normal 0.0-0.1 [facility] Comment on above: Performed By: #### C BC #### [facility] Laboratory [address] [place] [address] Dr. Oneal Vieyra Basophils/100 WBC (Bld) 0.5 % Normal 0.2-2.0 [facility] Comment on above: Performed By: #### C BC #### [facility] Laboratory [address] [address] [address] Oneal Vieyra EO # 0.1 103/ul Normal 0.0-0.7 [facility] Comment on above: Performed By: #### C BC #### [facility] Laboratory [address] [place] [address] Dr. Oneal Vieyra Eosinophils/100 WBC (Bld) 1.3 % Normal 0.9-7.0 [facility] Comment on above: Performed By: #### C BC #### [facility] [address] [place] [address] Dr. Oneal Vieyra Erythrocyte distribution width (RBC) [Ratio] 13.4 % Normal 11.0-15.0 [facility] Comment on above: Performed By: #### C BC #### [facility] Laboratory [address] [place] [address] Dr. Oneal Vieyra Hematocrit (Bld) [Volume fraction] 51.8 % Critically high 36.0-48.0 [facility] Comment on above: Performed By: #### C BC #### [facility] Laboratory [address] [place] [address] Dr. Oneal Vieyra Hemoglobin (Bld) [Mass/Vol] 16.1 g/dL Critically high 12.0-16.0 [facility] Comment on above: Performed By: #### C BC #### [facility] [address] [place] [address] Dr. Oneal Vieyra IG # 0.03 10e3/ul Normal 0.00-0.03 [facility] Comment on above: Performed By: #### C BC #### [facility] [address] [place] [address] Dr. Oneal Vieyra IG % 0.3 % Normal 0.0-0.5 [facility] Comment on above: Performed By: #### C BC #### [facility] [address] [place] [address] Dr. Oneal Vieyra LYMPH # 3.7 103/ul Normal 1.2-3.8 [facility] Comment on above: Performed By: #### C BC #### [facility] [address] [place] [address] Dr. Oneal Vieyra Lymphocytes/100 WBC (Bld) 34.5 % Normal 20.5-60.0 [facility] Comment on above: Performed By: #### C BC #### [facility] [address] [place] [address] Dr. Oneal Vieyra MANUAL DIFF REQ NO Normal [facility] Comment on above: Performed By: #### C BC #### [facility] [address] [place] [address] Dr. Oneal Vieyra MCH (RBC) [Entitic mass] 29.7 pg Normal 26.7-34.0 [facility] Comment on above: Performed By: #### C BC #### [facility] [address] [place] [address] Dr. Oneal Vieyra MCHC (RBC) [Mass/Vol] 31.1 g/dL Normal 29.9-35.2 [facility] Comment on above: Performed By: #### C BC #### [facility] [address] [place] [address] Dr. Oneal Vieyra MCV (RBC) [Entitic vol] 95.6 fL Normal 81.0-99.0 [facility] Comment on above: Performed By: #### C BC #### [facility] [address] [place] [address] Dr. Oneal Vieyra MONO # 0.8 103/ul Normal 0.3-0.8 [facility] Comment on above: Performed By: #### C BC #### [facility] [address] [place] [address] Dr. Oneal Vieyra Monocytes/100 WBC (Bld) 7.6 % Normal 1.7-12.0 [facility] Comment on above: Performed By: #### C BC #### [facility] [address] [place] [address] Dr. Oneal Vieyra NEUT # 5.9 103/ul Normal 1.4-6.5 [facility] Comment on above: Performed By: #### C BC #### [facility] [address] [place] [address] Dr. Oneal Vieyra Neutrophils/100 WBC (Bld) 55.8 % Normal 43.0-75.0 [facility] Comment on above: Performed By: #### C BC #### [facility] [address] [place] [address] Dr. Oneal Vieyra Platelet mean volume (Bld) [Entitic vol] 12.1 fL Normal 9.5-13.5 [facility] Comment on above: Performed By: #### C BC #### [facility] [address] [place] [address] Dr. Oneal Vieyra PLT 224 103/ul Normal 150-450 [facility] Comment on above: Performed By: #### C BC #### [facility] [address] [place] [address] Dr. Oneal Vieyra RBC 5.42 106/ul Critically high 4.20-5.40 [facility] Comment on above: Performed By: #### C BC #### [facility] [address] [place] [address] Dr. Oneal Vieyra WBC 10.6 103/ul Normal 4.0-11.0 [facility] Comment on above: Performed By: #### C BC #### [facility] [address] [place] [address] Dr. Oneal Vieyra FREE T4on 06-17-2022 Free T4 [Mass/Vol] 0.98 ng/dL Normal 0.76-1.46 [facility] Comment on above: Performed By: #### F T4 #### [facility] [address] [place] [address] Dr. Oneal Vieyra GLYCOHEMOGLOBIN A1Con 2021 ADA RECOMMENDATION SEE BELOW Normal [facility] Comment on above: Result Comment: ADA RECOMMENDED LIMIT 4.0 - 6.0 ADA THERAPEUTIC TARGET < 7.0 ACTION SUGGESTED > 7.0 Performed By: #### A 1C #### [facility] [address] [place] [address] Dr. Oneal Vieyra Glucose [Mass/Vol] 146 mg/dL Normal [facility] Comment on above: Performed By: #### A 1C #### [facility] [address] [place] [address] Dr. Oneal Vieyra HbA1c (Bld) [Mass fraction] 6.7 % Critically high 4.5-6.2 [facility] Comment on above: Performed By: #### A 1C #### [facility] [address] [place] [address] Dr. Oneal Vieyra LIPID PROFILEon 06-17-2022 CHOL-HDL RATIO NORM SEE BELOW Normal [facility] Comment on above: Result Comment: 3.3 - 4.4 LOW RISK 4.4 - 7.1 AVERAGE RISK 7.1 - 11.0 MODERATE RISK >11.0 HIGH RISK Performed By: #### L IPID, TSH, CMP #### [facility] [address] [place] [address] Dr. Oneal Vieyra Cholesterol [Mass/Vol] 161 mg/dL Normal <=200 [facility] Comment on above: Performed By: #### L IPID, TSH, CMP #### [facility] [address] [place] [address] Dr. Oneal Vieyra Cholesterol in HDL [Mass/Vol] 33 mg/dL Critically low 40-60 [facility] Comment on above: Performed By: #### L IPID, TSH, CMP #### [facility] [address] [address] [address] Oneal Vieyra Cholesterol in LDL [Mass/Vol] 63.8 mg/dL Normal [facility] Comment on above: Performed By: #### L IPID, TSH, CMP #### [facility] [address] [address] [address] Oneal Vieyra Cholesterol.total/ Cholesterol in HDL [Mass ratio] 4.9 {ratio} Normal [facility] Comment on above: Performed By: #### L IPID, TSH, CMP #### [facility] [address] [address] [address] Oneal Vieyra HDL NORMAL > or = 60 mg/dl - LO W CARDIOVASCULAR RISK <40 mg/dl - HIGH CARDIOVASCULAR RISK Normal [facility] Comment on above: Performed By: #### L IPID, TSH, CMP #### [facility] [address] [address] [address] Oneal Vieyra LDL CALC NORMAL SEE BELOW Normal [facility] Comment on above: Result Comment: <100 mg/dl OPTIMAL 100 - 129 mg/dl NEAR OR ABOVE OPTIMAL 130 - 159 mg/dl BORDERLINE HIGH 160 - 189 mg/dl HIGH >190 mg/dl VERY HIGH Performed By: #### L IPID, TSH, CMP #### [facility] [address] [address] [address] Oneal Vieyra Triglyceride [Mass/Vol] 321 mg/dL Critically high <=150 [facility] Comment on above: Performed By: #### L IPID, TSH, CMP #### [facility] [address] [address] [address] Oneal Vieyra VLDL CALC 64.2 mg/dL Normal [facility] Comment on above: Performed By: #### L IPID, TSH, CMP #### [facility] [address] [address] [address] Oneal Vieyra PROF 14(COMP METB)on 09-21-2 022 Albumin [Mass/Vol] 3.7 g/dL Normal 3.4-5.0 [facility] Comment on above: Performed By: #### L IPID, TSH, CMP #### [facility] [address] [address] [address] Oneal Vieyra Albumin/Globulin [Mass ratio] 0.9 {ratio} Normal [facility] Comment on above: Performed By: #### L IPID, TSH, CMP #### [facility] [address] [address] [address] Oneal Vieyra ALP [Catalytic activity/Vol] 171 U/L Critically high 46-116 [facility] Comment on above: Performed By: #### L IPID, TSH, CMP #### [facility] [address] [place] [address] Dr. Oneal Vieyra ALT [Catalytic activity/Vol] 19 U/L Normal 14-59 [facility] Comment on above: Performed By: #### L IPID, TSH, CMP #### [facility] [address] [place] [address] Dr. Oneal Vieyra Anion gap [Moles/Vol] 5.6 mmol/L Normal [facility] Comment on above: Performed By: #### L IPID, TSH, CMP #### [facility] [address] [place] [address] Dr. Oneal Vieyra AST [Catalytic activity/Vol] 13 U/L Critically low 15-37 [facility] Comment on above: Performed By: #### L IPID, TSH, CMP #### [facility] [address] [place] [address] Dr. Oneal Vieyra Bilirubin [Mass/Vol] 0.5 mg/dL Normal 0.2-1.0 [facility] Comment on above: Performed By: #### L IPID, TSH, CMP #### [facility] [address] [place] [address] Dr. Oneal Vieyra Calcium [Mass/Vol] 9.1 mg/dL Normal 8.5-10.1 [facility] Comment on above: Performed By: #### L IPID, TSH, CMP #### [facility] [address] [address] [address] Oneal Vieyra Chloride [Moles/Vol] 105 mmol/L Normal 98-107 [facility] Comment on above: Performed By: #### L IPID, TSH, CMP #### [facility] [address] [address] [address] Oneal Vieyra CO2 [Moles/Vol] 35.3 mmol/L Critically high 21.0-32.0 [facility] Comment on above: Performed By: #### L IPID, TSH, CMP #### [facility] [address] [address] [address] Oneal Vieyra Creatinine [Mass/Vol] 0.88 mg/dL Normal 0.55-1.02 [facility] Comment on above: Performed By: #### L IPID, TSH, CMP #### [facility] [address] [place] [address] Dr. Oneal Vieyra EGFR-AF SAMMARINESE >60 Normal >=60 [facility] Comment on above: Performed By: #### L IPID, TSH, CMP #### [facility] [address] [place] [address] Dr. Oneal Vieyra EGFR-NON AF SAMMARINESE >60 Normal >=60 [facility] Comment on above: Performed By: #### L IPID, TSH, CMP #### [facility] [address] [place] [address] Dr. Oneal Vieyra Globulin (S) [Mass/Vol] 4.3 g/dL Normal [facility] Comment on above: Performed By: #### L IPID, TSH, CMP #### [facility] [address] [address] [address] Oneal Vieyra Glucose [Mass/Vol] 93 mg/dL Normal 74-106 [facility] Comment on above: Performed By: #### L IPID, TSH, CMP #### [facility] [address] [address] [address] Oneal Vieyra Potassium [Moles/Vol] 3.9 mmol/L Normal 3.5-5.1 [facility] Comment on above: Performed By: #### L IPID, TSH, CMP #### [facility] [address] [place] [address] Dr. Oneal Vieyra Protein [Mass/Vol] 8.0 g/dL Normal 6.4-8.2 [facility] Comment on above: Performed By: #### L IPID, TSH, CMP #### [facility] [address] [place] [address] Dr. Oneal Vieyra Sodium [Moles/Vol] 142 mmol/L Normal 136-145 [facility] Comment on above: Performed By: #### L IPID, TSH, CMP #### [facility] [address] [place] [address] Dr. Oneal Vieyra Urea nitrogen [Mass/Vol] 15.0 mg/dL Normal 7.0-18.0 [facility] Comment on above: Performed By: #### L IPID, TSH, CMP #### [facility] [address] [place] [address] Dr. Oneal Vieyra Urea nitrogen/Creatinin e [Mass ratio] 17.0 mg/mg Normal [facility] Comment on above: Performed By: #### L IPID, TSH, CMP #### [facility] [address] [place] [address] Dr. Oneal Vieyra TSHon 06-17-2022 TSH 9.403 uIU/mL Critically high 0.358-3.740 [facility] Comment on above: Performed By: #### L IPID, TSH, CMP #### [facility] [address] [place] [address] Dr. Oneal Vieyra UA RANDOM W/MICROSCOPICon BACTERIA NONE SEEN Normal NONE SEEN [facility] Comment on above: Performed By: #### U AMIC #### [facility] [address] [place] [address] Dr. Oneal Vieyra Bilirubin Ql (U) Negative Normal NEGATIVE [facility] Comment on above: Performed By: #### U AMIC #### [facility] [address] [place] [address] Dr. Oneal Vieyra CAST NONE SEEN Normal NONE SEEN [facility] Comment on above: Performed By: #### U AMIC #### [facility] [address] [address] [address] Oneal Vieyra Clarity (U) CLEAR Normal CLEAR [facility] Comment on above: Performed By: #### U AMIC #### [facility] [address] [address] [address] Oneal Vieyra Color (U) LT. YELLOW Normal YELLOW [facility] Comment on above: Performed By: #### U AMIC #### [facility] [address] [address] [address] Oneal Vieyra Crystals LM Nom (Urine sed) NONE SEEN Normal NONE SEEN [facility] Comment on above: Performed By: #### U AMIC #### [facility] [address] [place] [address] Dr. Oneal Vieyra Epithelial cells LM Ql (Urine sed) FEW Abnormal NONE SEEN /RARE [facility] Comment on above: Performed By: #### U AMIC #### [facility] [address] [place] [address] Dr. Oneal Vieyra Glucose Ql (U) >1000 Abnormal NEGATIVE [facility] Comment on above: Performed By: #### U AMIC #### [facility] [address] [address] [address] Oneal Vieyra Hemoglobin Ql (U) SMALL Abnormal NEGATIVE [facility] Comment on above: Performed By: #### U AMIC #### [facility] [address] [address] [address] Oneal Vieyra Ketones Ql (U) Negative Normal NEGATIVE [facility] Comment on above: Performed By: #### U AMIC #### [facility] [address] [address] [address] Oneal Vieyra LEUKOCYTES Negative Normal NEGATIVE [facility] Comment on above: Performed By: #### U AMIC #### [facility] [address] [place] [address] Dr. Oneal Vieyra MUCOUS NONE SEEN Normal NONE SEEN [facility] Comment on above: Performed By: #### U AMIC #### [facility] [address] [address] [address] Oneal Vieyra Nitrite Ql (U) Negative Normal NEGATIVE [facility] Comment on above: Performed By: #### U AMIC #### [facility] [address] [place] [address] Dr. Oneal Vieyra pH (U) 6.0 [pH] Normal 5-9 [facility] Comment on above: Performed By: #### U AMIC #### [facility] [address] [address] [address] Oneal Vieyra RBC 0-2 Normal 0-2 [facility] Comment on above: Performed By: #### U AMIC #### [facility] [address] [place] [address] Dr. Oneal Vieyra SPEC GRAVITY <=1.005 Abnormal 1.005-<=1.0 25 [facility] Comment on above: Performed By: #### U AMIC #### [facility] [address] [place] [address] Dr. Oneal Vieyra UA PROTEIN Negative Normal NEGATIVE/ TRACE [facility] Comment on above: Performed By: #### U AMIC #### [facility] [address] [place] [address] Dr. Oneal Vieyra Urobilinogen Qn (U) 0.2 {Ashwini'U}/dL Normal 0.2 - 1.0 [facility] Comment on above: Performed By: #### U AMIC #### [facility] [address] [place] [address] Dr. Oneal Vieyra WBC NONE SEEN Normal NONE SEEN [facility] Comment on above: Performed By: #### U AMIC #### [facility] [address] [place] [address] Dr. Oneal Vieyra MICROALBUMIN, RAND URon 02-25 mALB <1.3 Normal <=30.0 [facility] Comment on above: Performed By: #### M ALBR #### [facility] [address] [place] [address] Dr. Oneal Vieyra UA RANDOM W/MICROSCOPICon BACTERIA NONE SEEN Normal NONE SEEN [facility] Comment on above: Performed By: #### U AMIC #### [facility] [address] [address] [address] Oneal Vieyra Bilirubin Ql (U) Negative Normal NEGATIVE [facility] Comment on above: Performed By: #### U AMIC #### [facility] [address] [address] [address] Oneal Vieyra CAST NONE SEEN Normal NONE SEEN [facility] Comment on above: Performed By: #### U AMIC #### [facility] [address] [address] [address] Oneal Vieyra Clarity (U) CLEAR Normal CLEAR [facility] Comment on above: Performed By: #### U AMIC #### [facility] [address] [place] [address] Dr. Oneal Vieyra Color (U) YELLOW Normal YELLOW [facility] Comment on above: Performed By: #### U AMIC #### [facility] [address] [address] [address] Oneal Vieyra Crystals LM Nom (Urine sed) NONE SEEN Normal NONE SEEN [facility] Comment on above: Performed By: #### U AMIC #### [facility] [address] [address] [address] Oneal Vieyra Epithelial cells LM Ql (Urine sed) FEW Abnormal NONE SEEN /RARE [facility] Comment on above: Performed By: #### U AMIC #### [facility] [address] [address] [address] Oneal Vieyra Glucose Ql (U) >1000 Abnormal NEGATIVE [facility] Comment on above: Performed By: #### U AMIC #### [facility] [address] [address] [address] Oneal Vieyra Hemoglobin Ql (U) SMALL Abnormal NEGATIVE [facility] Comment on above: Performed By: #### U AMIC #### [facility] [address] [address] [address] Oneal Vieyra Ketones Ql (U) Negative Normal NEGATIVE [facility] Comment on above: Performed By: #### U AMIC #### [facility] [address] [address] [address] Oneal Vieyra LEUKOCYTES Negative Normal NEGATIVE [facility] Comment on above: Performed By: #### U AMIC #### [facility] [address] [address] [address] Oneal Vieyra MUCOUS NONE SEEN Normal NONE SEEN [facility] Comment on above: Performed By: #### U AMIC #### [facility] [address] [address] [address] Oneal Vieyra Nitrite Ql (U) Negative Normal NEGATIVE [facility] Comment on above: Performed By: #### U AMIC #### [facility] [address] [address] [address] Oneal Vieyra pH (U) 5.5 [pH] Normal 5-9 [facility] Comment on above: Performed By: #### U AMIC #### [facility] [address] [place] [address] Dr. Oneal Vieyra RBC 0-2 Normal 0-2 [facility] Comment on above: Performed By: #### U AMIC #### [facility] [address] [place] [address] Dr. Oneal Vieyra SPEC GRAVITY 1.020 Normal 1.005-<=1.0 25 [facility] Comment on above: Performed By: #### U AMIC #### [facility] [address] [place] [address] Dr. Oneal Vieyra UA PROTEIN Negative Normal NEGATIVE/ TRACE [facility] Comment on above: Performed By: #### U AMIC #### [facility] [address] [place] [address] Dr. Oneal Vieyra Urobilinogen Qn (U) 0.2 {Ashwini'U}/dL Normal 0.2 - 1.0 [facility] Comment on above: Performed By: #### U AMIC #### [facility] [address] [place] [address] Dr. Oneal Vieyra WBC NONE SEEN Normal NONE SEEN [facility] Comment on above: Performed By: #### U AMIC #### [facility] [address] [place], [place] [address] Dr. Oneal Vieyra Office Visit (Cardiology)on 10-16-2021 [...] for follow-up. She had inferior ST elevation NM with primary revascularization of the RCA in [...] 16Oct2021 11:41AM Heart Rate65, L Brachial Artery Nssjtxxy180, LUE, Sitting Fwqnnqerv20, LUE, Sitting Height5 ft 1 in Glkxyd744 lb BMI Dxdqxnkmpl93.04 kg/m2 BSA Calculated1.71 Tobacco Usea) Yes Patient encouraged to stop using tobacco productsYes Fall Screeningc) Not medically indicated Physical Exam Constitutional: alert and in no acute distress. Neck: neck is supple, symmetric, trachea midline, no masses and no thyromegaly . (more content not included)... Normal [employer] Tobacco Screening.on 022 Fall risk assessment c) Not medically indicated [facility] [facility] [place] [facility] [place] [address] [place] Work Phone: Tobacco use status CPHS a) Yes -[facility] [place] [address] [place] Work Phone: Tobacco Screening. Yes MP-[facility] [address] DO Work Phone: Basic Metabolic Panelon 02-26 Calcium [Mass/Vol] 8.6 mg/dL Normal 8.2-10.2 [facility] Comment on above: Performed By: #### C K, BMP, SCAN CBC, PTT, BNP, PT, TROP #### [facility] [address] [id number] [place] Chloride [Moles/Vol] 105 mmol/L Normal 95-114 [facility] Comment on above: Performed By: #### C K, BMP, SCAN CBC, PTT, BNP, PT, TROP #### [facility] [address] [place] [address] [place] CO2 [Moles/Vol] 21.2 mmol/L Low 22.0-30.0 [facility] Comment on above: Performed By: #### C K, BMP, SCAN CBC, PTT, BNP, PT, TROP #### [facility] [address] [id number] [place] Creatinine [Mass/Vol] 1.26 mg/dL High 0.44-1.03 [facility] Comment on above: Performed By: #### C K, BMP, SCAN CBC, PTT, BNP, PT, TROP #### [facility] [address] Creatinine Clr Calc Pharmacy 43.69 [facility] Comment on above: Result Comment: PERF ORMED BY: [place] [address] PATHOLOGIST SERVICE WORKER HELPER GIA SHAH M.D. Performed By: #### C K, BMP, SCAN CBC, PTT, BNP, PT, TROP #### [facility] [address] Estimated GFR ( [place] 53 [facility] Comment on above: Result Comment: GFR estimated reference range: According to KDOQI guidelines, <60 ml/min/1.73m2 is sufficient to diagnose a patient with chronic kidney disease. Performed By: #### C K, BMP, SCAN CBC, PTT, BNP, PT, TROP #### [facility] [address] Estimated GFR (Non- Am 44 [facility] Comment on above: Performed By: #### C K, BMP, SCAN CBC, PTT, BNP, PT, TROP #### [address] Glucose [Mass/Vol] 116 mg/dL High 70-100 [facility] Comment on above: Result Comment: Wendel Glucose Reference Range is dependent on time and content of last meal. Glucose of more than 200 mg/dL in a nonstressed, ambulatory subject supports the diagnosis of Diabetes Mellitus. ADA recommended reference range Performed By: #### C K, BMP, SCAN CBC, PTT, BNP, PT, TROP #### [address] Potassium [Moles/Vol] 3.3 mmol/L Low 3.5-5.1 [facility] Comment on above: Performed By: #### C K, BMP, SCAN CBC, PTT, BNP, PT, TROP #### [facility] [address] Sodium [Moles/Vol] 139 mmol/L Normal 136-146 [facility] Comment on above: Performed By: #### C K, BMP, SCAN CBC, PTT, BNP, PT, TROP #### [facility] [address] Urea nitrogen [Mass/Vol] 20 mg/dL Normal 9-23 [facility] Comment on above: Performed By: #### C K, BMP, SCAN CBC, PTT, BNP, PT, TROP #### [facility] [address] Creatine Kinaseon 03-21-2021 CK [Catalytic activity/Vol] 87 U/L Normal 22-269 [facility] Comment on above: Performed By: #### C K, BMP, SCAN CBC, PTT, BNP, PT, TROP #### [facility] [address] Creatinine Kinase MBon 03-21 CK.MB [Mass/Vol] 1.6 ng/mL Normal 0.6-6.3 [facility] Comment on above: Performed By: #### C K, BMP, SCAN CBC, PTT, BNP, PT, TROP #### [facility] [address] CKMB Relative Index 1.8 % Normal 0.00-2.50 [facility] Comment on above: Performed By: #### C K, BMP, SCAN CBC, PTT, BNP, PT, TROP #### [place] [address] [place] ECG 12 lead ECGon 03-21-2021 ECG 12 lead ECG [facility] [place] [address] [place] [address] Electrocardiograph Report Signed Patient: Fausto Corrigan MR#: [id number] 0 : 1960 Acct:[id number] Age/Sex: 60 / F ADM Date: 03/19/21 Loc: Room: [address] [place] [address] Type: DIS IN Attending Dr: Kal Kellogg [...] 03/21/21 0802 Signed By: 03/21/21 1610 Normal [facility] Scan and CBCon 03-21-2021 Basophils (Bld) [#/Vol] 0.1 10*3/uL Normal 0.0-0.2 [facility] Comment on above: Performed By: #### C K, BMP, SCAN CBC, PTT, BNP, PT, TROP #### [facility] [address] [place] [address] Basophils/100 WBC (Bld) 0.5 % Normal . [facility] Comment on above: Performed By: #### C K, BMP, SCAN CBC, PTT, BNP, PT, TROP #### [facility] [address] [place] [address] Eosinophils (Bld) [#/Vol] 0.3 10*3/uL Normal 0.0-0.45 [facility] Comment on above: Performed By: #### C K, BMP, SCAN CBC, PTT, BNP, PT, TROP #### [facility] [address] [place] [address] Eosinophils/100 WBC (Bld) 2.6 % Normal . [facility] Comment on above: Performed By: #### C K, BMP, SCAN CBC, PTT, BNP, PT, TROP #### [facility] [address] [place] [address] [place] Erythrocyte distribution width (RBC) [Ratio] 13.3 % Normal 11.9-15.3 [facility] Comment on above: Performed By: #### C K, BMP, SCAN CBC, PTT, BNP, PT, TROP #### [address] Hematocrit (Bld) [Volume fraction] 39.1 % Normal 34.0-46.4 [facility] Comment on above: Performed By: #### C K, BMP, SCAN CBC, PTT, BNP, PT, TROP #### [address] Hemoglobin (Bld) [Mass/Vol] 13.2 g/dL Normal 11.8-15.4 [facility] Comment on above: Performed By: #### C K, BMP, SCAN CBC, PTT, BNP, PT, TROP #### [address] Lymphocytes (Bld) [#/Vol] 4.6 10*3/uL Normal 1.00-4.8 [facility] Comment on above: Performed By: #### C K, BMP, SCAN CBC, PTT, BNP, PT, TROP #### [address] Lymphocytes/100 WBC (Bld) 37.3 % Normal . [facility] Comment on above: Performed By: #### C K, BMP, SCAN CBC, PTT, BNP, PT, TROP #### [address] MCH (RBC) [Entitic mass] 31.1 pg Normal 24.7-34.3 [facility] Comment on above: Performed By: #### C K, BMP, SCAN CBC, PTT, BNP, PT, TROP #### [address] MCV (RBC) [Entitic vol] 92.2 fL Normal 80-100 [facility] Comment on above: Performed By: #### C K, BMP, SCAN CBC, PTT, BNP, PT, TROP #### [address] [place] [address] [place] Mean Corpuscular HGB Conc 33.8 g/dL Normal 32.0-35.0 [facility] Comment on above: Performed By: #### C K, BMP, SCAN CBC, PTT, BNP, PT, TROP #### [address] Monocytes (Bld) [#/Vol] 1.0 10*3/uL High 0.0-0.8 [facility] Comment on above: Performed By: #### C K, BMP, SCAN CBC, PTT, BNP, PT, TROP #### [address] Monocytes/100 WBC (Bld) 8.0 % Normal . [facility] Comment on above: Performed By: #### C K, BMP, SCAN CBC, PTT, BNP, PT, TROP #### [address] Neutrophils (Bld) [#/Vol] 6.4 10*3/uL Normal 1.8-7.7 [facility] Comment on above: Performed By: #### C K, BMP, SCAN CBC, PTT, BNP, PT, TROP #### [address] Neutrophils/100 WBC (Bld) 51.6 % Normal . [facility] Comment on above: Performed By: #### C K, BMP, SCAN CBC, PTT, BNP, PT, TROP #### [address] Nucleated RBC/100 WBC (Bld) [Ratio] 0.2 % Normal 0-0.5 [facility] Comment on above: Performed By: #### C K, BMP, SCAN CBC, PTT, BNP, PT, TROP #### [address] Platelet Estimate Normal Normal Normal [facility] Comment on above: Performed By: #### C K, BMP, SCAN CBC, PTT, BNP, PT, TROP #### [address] [id number] [place] Platelet mean volume (Bld) [Entitic vol] 9.3 fL Normal 6.3-10.7 [facility] Comment on above: Performed By: #### C K, BMP, SCAN CBC, PTT, BNP, PT, TROP #### [address] Platelet Morphology Normal Normal Normal [facility] Comment on above: Result Comment: PERF ORMED BY: [place] [address] PATHOLOGIST SERVICE WORKER HELPER GIA SHAH M.D. Performed By: #### C K, BMP, SCAN CBC, PTT, BNP, PT, TROP #### [address] Platelets (Bld) [#/Vol] 250 10*3/uL Normal 150-450 [facility] Comment on above: Performed By: #### C K, BMP, SCAN CBC, PTT, BNP, PT, TROP #### [address] RBC (Bld) [#/Vol] 4.24 10*6/uL Normal 3.60-5.00 [facility] Comment on above: Performed By: #### C K, BMP, SCAN CBC, PTT, BNP, PT, TROP #### [address] RBC morphology finding Nom (Bld) Normal Normal [facility] Comment on above: Performed By: #### C K, BMP, SCAN CBC, PTT, BNP, PT, TROP #### [address] WBC (Bld) [#/Vol] 12.3 10*3/uL High 4.5-11.0 [facility] Comment on above: Performed By: #### C K, BMP, SCAN CBC, PTT, BNP, PT, TROP #### [address] Troponin I(TnI)on 03-21-2021 Troponin I.cardiac [Mass/Vol] 3.93 ng/mL Off scale high 0-0.02 [facility] Comment on above: Result Comment: MILLA NM Cut off value > or equal to 0.03 ng/mL in conjunction with clinical conditions of myocardial infarction. (www.escardio.org/guidelines) PERFORMED BY: [place] [address] PATHOLOGIST SERVICE WORKER HELPER GIA SHAH M.D. Performed By: #### C K, BMP, SCAN CBC, PTT, BNP, PT, TROP #### [address] Troponin I.cardiac [Mass/Vol] 3.98 ng/mL Off scale high 0-0.02 [facility] Comment on above: Result Comment: MILLA NM Cut off value > or equal to 0.03 ng/mL in conjunction with clinical conditions of myocardial infarction. (www.escardio.org/guidelines) PERFORMED BY: [place] [address] PATHOLOGIST SERVICE WORKER HELPER GIA SHAH M.D. Performed By: #### C K, BMP, SCAN CBC, PTT, BNP, PT, TROP #### [address] Basic Metabolic Panelon 06-2 Calcium [Mass/Vol] 9.1 mg/dL Normal 8.2-10.2 [facility] Comment on above: Performed By: #### C K, BMP, SCAN CBC, PTT, BNP, PT, TROP #### [address] Chloride [Moles/Vol] 102 mmol/L Normal 95-114 [facility] Comment on above: Performed By: #### C K, BMP, SCAN CBC, PTT, BNP, PT, TROP #### [address] CO2 [Moles/Vol] 23.3 mmol/L Normal 22.0-30.0 [facility] Comment on above: Performed By: #### C K, BMP, SCAN CBC, PTT, BNP, PT, TROP #### [facility] [address] Creatinine [Mass/Vol] 1.15 mg/dL High 0.44-1.03 [facility] Comment on above: Performed By: #### C K, BMP, SCAN CBC, PTT, BNP, PT, TROP #### [facility] [address] Creatinine Clr Calc Pharmacy 47.09 [facility] Comment on above: Performed By: #### C K, BMP, SCAN CBC, PTT, BNP, PT, TROP #### [facility] [address] Estimated GFR ( [place] 59 [facility] Comment on above: Result Comment: GFR estimated reference range: According to KDOQI guidelines, <60 ml/min/1.73m2 is sufficient to diagnose a patient with chronic kidney disease. Performed By: #### C K, BMP, SCAN CBC, PTT, BNP, PT, TROP #### [facility] [address] Estimated GFR (Non- Am 48 [facility] Comment on above: Performed By: #### C K, BMP, SCAN CBC, PTT, BNP, PT, TROP #### [address] Glucose [Mass/Vol] 161 mg/dL High 70-100 [facility] Comment on above: Result Comment: Wendel Glucose Reference Range is dependent on time and content of last meal. Glucose of more than 200 mg/dL in a nonstressed, ambulatory subject supports the diagnosis of Diabetes Mellitus. ADA recommended reference range Performed By: #### C K, BMP, SCAN CBC, PTT, BNP, PT, TROP #### [facility] [address] Potassium [Moles/Vol] 3.1 mmol/L Low 3.5-5.1 [facility] Comment on above: Performed By: #### C K, BMP, SCAN CBC, PTT, BNP, PT, TROP #### [facility] [address] [place] [address] [place] Sodium [Moles/Vol] 136 mmol/L Normal 136-146 [facility] Comment on above: Performed By: #### C K, BMP, SCAN CBC, PTT, BNP, PT, TROP #### [facility] [address] Urea nitrogen [Mass/Vol] 26 mg/dL High 9-23 [facility] Comment on above: Performed By: #### C K, BMP, SCAN CBC, PTT, BNP, PT, TROP #### [address] Coagulation Profileon 2020 aPTT Coag (Bld) [Time] 37.6 s High 25.1-36.5 [facility] Comment on above: Result Comment: PERF ORMED BY: [place] [address] PATHOLOGIST SERVICE WORKER HELPER GIA SHAH M.D. Performed By: #### C K, BMP, SCAN CBC, PTT, BNP, PT, TROP #### [address] INR Coag (PPP) [Relative time] 1.1 {INR} Normal [facility] Comment on above: Result Comment: INR Therapeutic [...] SCAN CBC, PTT, BNP, PT, TROP #### [address] PT Coag (PPP) [Time] 12.2 s Normal 9.0-12.9 [facility] Comment on above: Performed By: #### C K, BMP, SCAN CBC, PTT, BNP, PT, TROP #### [address] Creatine Kinaseon 03-20-2021 CK [Catalytic activity/Vol] 91 U/L Normal -269 [facility] Comment on above: Order Comment: NOTIF IED,KAH,[id number] Performed By: #### C K, BMP, SCAN CBC, PTT, BNP, PT, TROP #### [address] CK [Catalytic activity/Vol] 108 U/L Normal 22-269 [facility] Comment on above: Performed By: #### C K, BMP, SCAN CBC, PTT, BNP, PT, TROP #### [address] CK [Catalytic activity/Vol] 101 U/L Normal 22-269 [facility] Comment on above: Performed By: #### C K, BMP, SCAN CBC, PTT, BNP, PT, TROP #### [place] [address] [place] Creatinine Kinase MBon 03-20 CK.MB [Mass/Vol] 1.9 ng/mL Normal 0.6-6.3 [facility] Comment on above: Order Comment: NOTIF IED,,1455 Performed By: #### C K, BMP, SCAN CBC, PTT, BNP, PT, TROP #### [place] [address] [place] CKMB Relative Index 2.0 % Normal 0.00-2.50 [facility] Comment on above: Order Comment: NOTIF IED,KAH,[id number] Performed By: #### C K, BMP, SCAN CBC, PTT, BNP, PT, TROP #### [place] [address] [place] CK.MB [Mass/Vol] 2.5 ng/mL Normal 0.6-6.3 [facility] Comment on above: Performed By: #### C K, BMP, SCAN CBC, PTT, BNP, PT, TROP #### [place] [address] [place] CKMB Relative Index 2.3 % Normal 0.00-2.50 [facility] Comment on above: Performed By: #### C K, BMP, SCAN CBC, PTT, BNP, PT, TROP #### [facility] [address] CK.MB [Mass/Vol] 3.1 ng/mL Normal 0.6-6.3 [facility] Comment on above: Performed By: #### C K, BMP, SCAN CBC, PTT, BNP, PT, TROP #### [facility] [address] CKMB Relative Index 3.0 % High 0.00-2.50 [facility] Comment on above: Performed By: #### C K, BMP, SCAN CBC, PTT, BNP, PT, TROP #### [facility] [address] ECG 12 lead ECGon 03-20-2021 ECG 12 lead ECG [facility] [place] [address] [place] [address] Electrocardiograph Report Signed Patient: Fausto Corrigan MR#: [id number] 0 : 1960 Acct:[id number] Age/Sex: 60 / F ADM Date: 03/19/21 Loc: Room: [address] [place] [address] Type: DIS IN Attending Dr: Kal Kellogg [...] 03/20/21 1436 Signed By: 03/22/21 1705 Normal [facility] Magnesiumon 03-20-2021 Magnesium [Mass/Vol] 2.0 mg/dL Normal 1.6-2.6 [facility] Comment on above: Result Comment: PERF ORMED BY: [place] [address] PATHOLOGIST SERVICE WORKER HELPER GIA SHAH M.D. Performed By: #### C K, BMP, SCAN CBC, PTT, BNP, PT, TROP #### [address] Partial Thromboplastin Timeo n 03-20-2021 aPTT Coag (Bld) [Time] 44.7 s High 25.1-36.5 [facility] Comment on above: Order Comment: List the anticoagulant: HEPARIN, UNFRACTIONATED Result Comment: PERF ORMED BY: [place] [address] PATHOLOGIST SERVICE WORKER HELPER GIA SHAH M.D. Performed By: #### C K, BMP, SCAN CBC, PTT, BNP, PT, TROP #### [address] Scan and CBCon 03-20-2021 Basophils (Bld) [#/Vol] 0.1 10*3/uL Normal 0.0-0.2 [facility] Comment on above: Performed By: #### C K, BMP, SCAN CBC, PTT, BNP, PT, TROP #### [address] Basophils/100 WBC (Bld) 0.6 % Normal . [facility] Comment on above: Performed By: #### C K, BMP, SCAN CBC, PTT, BNP, PT, TROP #### [place] [address] [place] Eosinophils (Bld) [#/Vol] 0.3 10*3/uL Normal 0.0-0.45 [facility] Comment on above: Performed By: #### C K, BMP, SCAN CBC, PTT, BNP, PT, TROP #### [place] [address] [place] Eosinophils/100 WBC (Bld) 1.8 % Normal . [facility] Comment on above: Performed By: #### C K, BMP, SCAN CBC, PTT, BNP, PT, TROP #### [address] Erythrocyte distribution width (RBC) [Ratio] 13.2 % Normal 11.9-15.3 [facility] Comment on above: Performed By: #### C K, BMP, SCAN CBC, PTT, BNP, PT, TROP #### [address] Hematocrit (Bld) [Volume fraction] 42.5 % Normal 34.0-46.4 [facility] Comment on above: Performed By: #### C K, BMP, SCAN CBC, PTT, BNP, PT, TROP #### [address] Hemoglobin (Bld) [Mass/Vol] 14.5 g/dL Normal 11.8-15.4 [facility] Comment on above: Performed By: #### C K, BMP, SCAN CBC, PTT, BNP, PT, TROP #### [address] Lymphocytes (Bld) [#/Vol] 5.2 10*3/uL High 1.00-4.8 [facility] Comment on above: Performed By: #### C K, BMP, SCAN CBC, PTT, BNP, PT, TROP #### [address] Lymphocytes/100 WBC (Bld) 31.5 % Normal . [facility] Comment on above: Performed By: #### C K, BMP, SCAN CBC, PTT, BNP, PT, TROP #### [address] MCH (RBC) [Entitic mass] 31.1 pg Normal 24.7-34.3 [facility] Comment on above: Performed By: #### C K, BMP, SCAN CBC, PTT, BNP, PT, TROP #### [address] MCV (RBC) [Entitic vol] 90.8 fL Normal 80-100 [facility] Comment on above: Performed By: #### C K, BMP, SCAN CBC, PTT, BNP, PT, TROP #### [address] Mean Corpuscular HGB Conc 34.2 g/dL Normal 32.0-35.0 [facility] Comment on above: Performed By: #### C K, BMP, SCAN CBC, PTT, BNP, PT, TROP #### [address] Monocytes (Bld) [#/Vol] 1.1 10*3/uL High 0.0-0.8 [facility] Comment on above: Performed By: #### C K, BMP, SCAN CBC, PTT, BNP, PT, TROP #### [address] Monocytes/100 WBC (Bld) 6.7 % Normal . [facility] Comment on above: Performed By: #### C K, BMP, SCAN CBC, PTT, BNP, PT, TROP #### [address] Neutrophils (Bld) [#/Vol] 9.8 10*3/uL High 1.8-7.7 [facility] Comment on above: Performed By: #### C K, BMP, SCAN CBC, PTT, BNP, PT, TROP #### [address] Neutrophils/100 WBC (Bld) 59.4 % Normal . [facility] Comment on above: Performed By: #### C K, BMP, SCAN CBC, PTT, BNP, PT, TROP #### [place] [address] [place] Nucleated RBC/100 WBC (Bld) [Ratio] 0.2 % Normal 0-0.5 [facility] Comment on above: Performed By: #### C K, BMP, SCAN CBC, PTT, BNP, PT, TROP #### [address] Platelet Estimate Normal Normal Normal [facility] Comment on above: Performed By: #### C K, BMP, SCAN CBC, PTT, BNP, PT, TROP #### [address] Platelet mean volume (Bld) [Entitic vol] 9.4 fL Normal 6.3-10.7 [facility] Comment on above: Performed By: #### C K, BMP, SCAN CBC, PTT, BNP, PT, TROP #### [address] Platelet Morphology Normal Normal Normal [facility] Comment on above: Result Comment: PERF ORMED BY: [place] [address] PATHOLOGIST SERVICE WORKER HELPER GIA SHAH M.D. Performed By: #### C K, BMP, SCAN CBC, PTT, BNP, PT, TROP #### [address] Platelets (Bld) [#/Vol] 305 10*3/uL Normal 150-450 [facility] Comment on above: Performed By: #### C K, BMP, SCAN CBC, PTT, BNP, PT, TROP #### [address] RBC (Bld) [#/Vol] 4.68 10*6/uL Normal 3.60-5.00 [facility] Comment on above: Performed By: #### C K, BMP, SCAN CBC, PTT, BNP, PT, TROP #### [address] RBC morphology finding Nom (Bld) Normal Normal [facility] Comment on above: Performed By: #### C K, BMP, SCAN CBC, PTT, BNP, PT, TROP #### [address] WBC (Bld) [#/Vol] 16.5 10*3/uL High 4.5-11.0 [facility] Comment on above: Performed By: #### C K, BMP, SCAN CBC, PTT, BNP, PT, TROP #### [place] [address] [place] Troponin I(TnI)on 03-20-2021 Troponin I.cardiac [Mass/Vol] 4.57 ng/mL Off scale high 0-0.02 [facility] Comment on above: Order Comment: NOTIF IED,KAH,[id number] Result Comment: MILLA NM Cut off value > or equal to 0.03 ng/mL in conjunction with clinical conditions of myocardial infarction. (www.escardio.org/guidelines) PERFORMED BY: [place] [address] PATHOLOGIST SERVICE WORKER HELPER GIA SHAH M.D. Performed By: #### C K, BMP, SCAN CBC, PTT, BNP, PT, TROP #### [place] [address] [place] Troponin I.cardiac [Mass/Vol] 5.16 ng/mL Off scale high 0-0.02 [facility] Comment on above: Result Comment: MILLA NM Cut off value > or equal to 0.03 ng/mL in conjunction with clinical conditions of myocardial infarction. (www.escardio.org/guidelines) PERFORMED BY: [place] [address] PATHOLOGIST SERVICE WORKER HELPER GIA SHAH M.D. Performed By: #### C K, BMP, SCAN CBC, PTT, BNP, PT, TROP #### [place] [address] [place] Troponin I.cardiac [Mass/Vol] 4.93 ng/mL Off scale high 0-0.02 [facility] Comment on above: Result Comment: MILLA NM Cut off value > or equal to 0.03 ng/mL in conjunction with clinical conditions of myocardial infarction. (www.escardio.org/guidelines) PERFORMED BY: [place] [address] PATHOLOGIST SERVICE WORKER HELPER GIA SHAH M.D. Performed By: #### C K, BMP, SCAN CBC, PTT, BNP, PT, TROP #### [address] [place] [address] [facility] XR chest 1V portableon 03-20 XR chest 1V portable [facility] Main [place] [address] [place], [place] [id number] XRay Report Signed Patient: Fausto Corrigan MR#: [id number] 0 : 1960 Acct:[id number] Age/Sex: 60 / F ADM Date: 03/19/21 Loc: Room: [address] [place] [address] Type: ADM IN Attending Dr: Kal Kellogg [...] Robel Roland M.D.03/20/2021 8:58 AM Dictation Location: [place] [address] Transcribed By: [facility] 03/20/21 0858 Dictated By: Robel Roland DO 03/20/21 0857 Signed By: 03/20/21 0858 Normal [facility] B-Type Natriuretic Peptideon 03-19-2021 Natriuretic peptide B (Bld) [Mass/Vol] 117.0 pg/mL High 5-100 [facility] Comment on above: Result Comment: PERF ORMED BY: [place] [address] PATHOLOGIST SERVICE WORKER HELPER GIA SHAH M.D. Performed By: #### C K, BMP, SCAN CBC, PTT, BNP, PT, TROP #### [facility] [address] [place], [place] [phone] [facility] Basic Metabolic Panelon 02-26 Calcium [Mass/Vol] 9.9 mg/dL Normal 8.2-10.2 [facility] Comment on above: Performed By: #### C K, BMP, SCAN CBC, PTT, BNP, PT, TROP #### [address] Chloride [Moles/Vol] 95 mmol/L Normal 95-114 [facility] Comment on above: Performed By: #### C K, BMP, SCAN CBC, PTT, BNP, PT, TROP #### [address] CO2 [Moles/Vol] 28.2 mmol/L Normal 22.0-30.0 [facility] Comment on above: Performed By: #### C K, BMP, SCAN CBC, PTT, BNP, PT, TROP #### [address] Creatinine [Mass/Vol] 1.41 mg/dL High 0.44-1.03 [facility] Comment on above: Performed By: #### C K, BMP, SCAN CBC, PTT, BNP, PT, TROP #### [address] Creatinine Clr Calc Pharmacy 38.52 [facility] Comment on above: Result Comment: PERF ORMED BY: [place] [address] PATHOLOGIST SERVICE WORKER HELPER GIA SHAH M.D. Performed By: #### C K, BMP, SCAN CBC, PTT, BNP, PT, TROP #### [address] Estimated GFR ( [place] 46 [facility] Comment on above: Result Comment: GFR estimated reference range: According to KDOQI guidelines, <60 ml/min/1.73m2 is sufficient to diagnose a patient with chronic kidney disease. Performed By: #### C K, BMP, SCAN CBC, PTT, BNP, PT, TROP #### [address] Estimated GFR (Non- Am 38 [facility] Comment on above: Performed By: #### C K, BMP, SCAN CBC, PTT, BNP, PT, TROP #### [facility] [address] Glucose [Mass/Vol] 143 mg/dL High 70-100 [facility] Comment on above: Result Comment: [facility] Glucose Reference Range is dependent on time and content of last meal. Glucose of more than 200 mg/dL in a nonstressed, ambulatory subject supports the diagnosis of Diabetes Mellitus. ADA recommended reference range Performed By: #### C K, BMP, SCAN CBC, PTT, BNP, PT, TROP #### [facility] [address] Potassium [Moles/Vol] 3.4 mmol/L Low 3.5-5.1 [facility] Comment on above: Performed By: #### C K, BMP, SCAN CBC, PTT, BNP, PT, TROP #### [facility] [address] Sodium [Moles/Vol] 139 mmol/L Normal 136-146 [facility] Comment on above: Performed By: #### C K, BMP, SCAN CBC, PTT, BNP, PT, TROP #### [facility] [address] Urea nitrogen [Mass/Vol] 28 mg/dL High 9-23 [facility] Comment on above: Performed By: #### C K, BMP, SCAN CBC, PTT, BNP, PT, TROP #### [address] COVID-19 Antigenon 1 COVID-19 Antigen Healthcare [...] its performance Kristan Disclaimer characteristic determined by [employer] and Kristan Disclaimer validated at [facility]. This Kristan Disclaimer test has not been [...] is terminated or revoked sooner. PERFORMED BY: [facility] 1111 [facility] [place] [address] PATHOLOGIST SERVICE WORKER HELPER GIA SHAH M.D. Normal [facility] Comment on above: Performed By: #### C OVID 19 FR, SOFIANEG, COVID-19 KRISTAN #### [facility] [address] [place] [address] [facility]-19-2021 SARS-CoV-2 (COVID-19) RNA SHERRIE+probe Ql (Unsp spec) Negative Normal Negative [facility] Comment on above: Order Comment: Healt hcare Worker?: N Result Comment: Testing for SARS-CoV-2 by RT-PCR This test was developed and its performance characteristics determined by [employer]) and validated at the [facility]. This test has not been FDA cleared [...] is terminated or revoked sooner. PERFORMED BY: [facility] 1111 [facility] INSANEDaw[place] [address] PATHOLOGIST SERVICE WORKER HELPER GIA SHAH M.D. Performed By: #### C OVID 19 [facility], SOFIANEG, COVID-19 KRISTAN #### [facility] [address] [place] [phone] [place] Creatine Kinaseon 03-19-2021 CK [Catalytic activity/Vol] 123 U/L Normal 22-269 [facility] Comment on above: Performed By: #### C K, BMP, SCAN CBC, PTT, BNP, PT, TROP #### [facility] [address] [place] [phone] [place] ECG 12 lead ECGon 03-19-2021 ECG 12 lead ECG [facility] [place] [address] Electrocardiograph Report Signed Patient: Fausto Corrigan MR#: [id number] 0 : 1960 Acct:[id number] Age/Sex: 60 / F ADM Date: 03/19/21 Loc: Room: [address] [place] [address] Type: ADM IN Attending Dr: Kal Kellogg [...] rhythm Inferior infarct , possibly acute ACUTE NM / STEMI Consider right ventricular involvement in acute inferior infarct Abnormal ECG When compared with ECG of 19-MAR-2021 20:15, (Unconfirmed) No significant change was found Confirmed by LAYNE SIMON DO ([id number]) on 03/20/2021 2:13:27 AM Referred By: Electronically Signed By:LAYNE SIMON DO Transcribed By: MUS Dictated By: Layne Simon DO 03/19/212021 Signed By: 03/20/21 0213 [facility] ECG 12 lead ECG [facility] Main [place] [id number] Electrocardiograph Report Signed Patient: Fausto Corrigan MR#: [id number] 0 : 1960 Acct:[id number] Age/Sex: 60 / F ADM Date: 03/19/21 Loc: Room: [address] [place] [address] Type: ADM IN Attending Dr: Kal Kellogg [...] consider inferior injury or acute infarct ACUTE NM / STEMI Consider right ventricular involvement in acute inferior infarct Abnormal ECG No previous ECGs available Confirmed by LAYNE SIMON DO ([id number]) on 03/20/2021 2:13:27 AM Referred By: Electronically Signed By:LAYNE SIMON DO Transcribed By: MUS Dictated By: Layne Simon DO 03/19/212014 Signed By: 03/20/21 0213 [facility] Partial Thromboplastin Timeo n 03-19-2021 aPTT Coag (Bld) [Time] 29.7 s Normal 25.1-36.5 [facility] Comment on above: Result Comment: PERF ORMED BY: [place] [address] PATHOLOGIST SERVICE WORKER HELPER GIA SHAH M.D. Performed By: #### C K, BMP, SCAN CBC, PTT, BNP, PT, TROP #### [facility] [address] [place] [address] Prothrombin Time INRon 03-19 INR Coag (PPP) [Relative time] 1.1 {INR} Normal [facility] Comment on above: Result Comment: INR Therapeutic [...] SCAN CBC, PTT, BNP, PT, TROP #### [address] PT Coag (PPP) [Time] 12.2 s Normal 9.0-12.9 [facility] Comment on above: Performed By: #### C K, BMP, SCAN CBC, PTT, BNP, PT, TROP #### [address] Scan and CBCon 03-19-2021 Basophils (Bld) [#/Vol] 0.2 10*3/uL Normal 0.0-0.2 [facility] Comment on above: Performed By: #### C K, BMP, SCAN CBC, PTT, BNP, PT, TROP #### [address] Basophils/100 WBC (Bld) 0.9 % Normal . [facility] Comment on above: Performed By: #### C K, BMP, SCAN CBC, PTT, BNP, PT, TROP #### [address] Eosinophils (Bld) [#/Vol] 0.4 10*3/uL Normal 0.0-0.45 [facility] Comment on above: Performed By: #### C K, BMP, SCAN CBC, PTT, BNP, PT, TROP #### [address] Eosinophils/100 WBC (Bld) 2.1 % Normal . [facility] Comment on above: Performed By: #### C K, BMP, SCAN CBC, PTT, BNP, PT, TROP #### [address] Erythrocyte distribution width (RBC) [Ratio] 13.3 % Normal 11.9-15.3 [facility] Comment on above: Performed By: #### C K, BMP, SCAN CBC, PTT, BNP, PT, TROP #### [place] [address] Hematocrit (Bld) [Volume fraction] 46.2 % Normal 34.0-46.4 [facility] Comment on above: Performed By: #### C K, BMP, SCAN CBC, PTT, BNP, PT, TROP #### [address] Hemoglobin (Bld) [Mass/Vol] 15.7 g/dL High 11.8-15.4 [facility] Comment on above: Performed By: #### C K, BMP, SCAN CBC, PTT, BNP, PT, TROP #### [address] Lymphocytes (Bld) [#/Vol] 5.0 10*3/uL High 1.00-4.8 [facility] Comment on above: Performed By: #### C K, BMP, SCAN CBC, PTT, BNP, PT, TROP #### [address] Lymphocytes/100 WBC (Bld) 27.2 % Normal . [facility] Comment on above: Performed By: #### C K, BMP, SCAN CBC, PTT, BNP, PT, TROP #### [address] MCH (RBC) [Entitic mass] 31.2 pg Normal 24.7-34.3 [facility] Comment on above: Performed By: #### C K, BMP, SCAN CBC, PTT, BNP, PT, TROP #### [address] MCV (RBC) [Entitic vol] 91.8 fL Normal 80-100 [facility] Comment on above: Performed By: #### C K, BMP, SCAN CBC, PTT, BNP, PT, TROP #### [address] Mean Corpuscular HGB Conc 34.0 g/dL Normal 32.0-35.0 [facility] Comment on above: Performed By: #### C K, BMP, SCAN CBC, PTT, BNP, PT, TROP #### [address] Monocytes (Bld) [#/Vol] 1.4 10*3/uL High 0.0-0.8 [facility] Comment on above: Performed By: #### C K, BMP, SCAN CBC, PTT, BNP, PT, TROP #### [address] Monocytes/100 WBC (Bld) 7.5 % Normal . [facility] Comment on above: Performed By: #### C K, BMP, SCAN CBC, PTT, BNP, PT, TROP #### [address] Neutrophils (Bld) [#/Vol] 11.5 10*3/uL High 1.8-7.7 [facility] Comment on above: Performed By: #### C K, BMP, SCAN CBC, PTT, BNP, PT, TROP #### [address] Neutrophils/100 WBC (Bld) 62.3 % Normal . [facility] Comment on above: Performed By: #### C K, BMP, SCAN CBC, PTT, BNP, PT, TROP #### [address] Nucleated RBC/100 WBC (Bld) [Ratio] 0.2 % Normal 0-0.5 [facility] Comment on above: Performed By: #### C K, BMP, SCAN CBC, PTT, BNP, PT, TROP #### [address] Platelet Estimate Normal Normal Normal [facility] Comment on above: Performed By: #### C K, BMP, SCAN CBC, PTT, BNP, PT, TROP #### [address] Platelet mean volume (Bld) [Entitic vol] 9.6 fL Normal 6.3-10.7 [facility] Comment on above: Performed By: #### C K, BMP, SCAN CBC, PTT, BNP, PT, TROP #### [address] Platelet Morphology Normal Normal Normal [facility] Comment on above: Result Comment: PERF ORMED BY: [place] [address] PATHOLOGIST SERVICE WORKER HELPER GIA SHAH M.D. Performed By: #### C K, BMP, SCAN CBC, PTT, BNP, PT, TROP #### [address] Platelets (Bld) [#/Vol] 313 10*3/uL Normal 150-450 [facility] Comment on above: Performed By: #### C K, BMP, SCAN CBC, PTT, BNP, PT, TROP #### [address] RBC (Bld) [#/Vol] 5.03 10*6/uL High 3.60-5.00 [facility] Comment on above: Performed By: #### C K, BMP, SCAN CBC, PTT, BNP, PT, TROP #### [address] RBC morphology finding Nom (Bld) Normal Normal [facility] Comment on above: Performed By: #### C K, BMP, SCAN CBC, PTT, BNP, PT, TROP #### [address] WBC (Bld) [#/Vol] 18.4 10*3/uL High 4.5-11.0 [facility] Comment on above: Performed By: #### C K, BMP, SCAN CBC, PTT, BNP, PT, TROP #### [address] Kristan Ag Negativeon 03-19-20 21 Kristan Ag Negative Negative Normal Negative [facility] Comment on above: Result Comment: This is a duplicate Kristan SARS Antigen (KOLTON) result to be used for statistical tracking purpose only. PERFORMED BY: [place] [address] PATHOLOGIST SERVICE WORKER HELPER GIA SHAH M.D. Performed By: #### C OVID 19 [facility], SOFIANEG, COVID-19 KRISTAN #### [facility] [address] [place] [phone] [facility] Troponin I(TnI)on 03-19-2021 Troponin I.cardiac [Mass/Vol] 4.25 ng/mL Off scale high 0-0.02 [facility] Comment on above: Result Comment: Crit ical value result called at 2209 on 03/19/21 MILLA NM Cut off value > or equal to 0.03 ng/mL in conjunction with clinical conditions of myocardial infarction. (www.escardio.org/guidelines) PERFORMED BY: [facility] [address] [facility] [place] [address] PATHOLOGIST SERVICE WORKER HELPER GIA SHAH M.D. Performed By: #### C K, BMP, SCAN CBC, PTT, BNP, PT, TROP #### [facility] [address] [place] [phone] [facility] Gastroenterology Office/Clin ic Noteon 02-26-2021 Gastroenterology [...] after patient consented to recording for virtual credit operations specialist and provider reviewed before signing. ARMEN: Lianne Jensen Follow-up With When Contact Information ROM RENNER, Gladys, JOSE, MED Within [address] [facility] [address] [place] [address]- Additional Instructions: Problem List/Past Medical History Ongoing [...] Primary malignant neoplasm of prostate: Father. Normal [facility] Comment on above: Result Comment: Elec tronically Signed By: Lianne Jensen\.br\Date and Time Signed: 02/25/21 15:53 EDT\.br\Electronically Co-Signed By: Gladys CUETO MD\.br\Date and Time Co-Signed: 02/26/21 12:32 EDT Ambulatory Clinical Summaryo n 02-25-2021 Ambulatory Clinical Summary {[id number]}CD:6143 68 Normal [facility] Coding Summary.on 07-15-2020 Coding Summary. CODING DATE: 020 FINAL [facility] DSC STATUS: Home (Routine DC) PAYOR: [...] CphT Date Saved: 07/15/2020 12:25 pm Normal [facility] Priority Order-Isra 2019 Priority Order-STAT Comment Invalid Interpretation Code [facility] Comment on above: Result Comment: Rece ived Performed at: [facility] [address] [place], [place] [id number] MD Fredy Larson Performed By: #### S ARS-CoV-2, SHERRIE, [id number] #### [facility] [address] [place] [address] SARS-CoV-2, NAAon 06-25-2020 SARS-CoV-2 (COVID-19) RNA SHERRIE+probe Ql (Resp) Not detected Invalid Interpretation Code Not Detected [facility] Comment on above: Result Comment: This nucleic acid amplification test was developed and its performance characteristics determined by [employer]. Nucleic acid amplification tests include PCR and [...] detected) result in this assay. Performed at: [facility] [address] [facility] [place] [id number] MD Fredy Larson Performed By: #### S ARS-CoV-2, SHERRIE, [id number] #### [facility] [address] [place] [address] Consenton 06-20-2020 Consent [id number]#1.00CD:127 Normal [facility] Pre-Certification Formon Pre-Certification Form [id number]#1.00CD:127 Normal [facility] Physician Orderon 06-19-2020 Physician Order [id number]#1.00CD:127 Normal [facility] Ambulatory Clinical Summaryo n 06-17-2020 Ambulatory Clinical Summary {[id number]}CD:6143 68 Normal [facility] Gastroenterology Office/Clin ic Noteon 06-17-2020 Gastroenterology Office/Clinic Note Chief Complaint GERD HPI Staff This is a 59 year old female who presents today for a referral from [facility] for GERD. History of Present Illness [...] 60 tab(s), Refills(s) 11, Pharmacy: [facility], 154, cm, 06/17/20 12:27:00 EDT, Height/Length Dosing, 71.9, kg, 06/17/20 12:27:00 EDT, Weight Dosing Follow-up With When Contact Information Gladys CUETO MD Within [address] [facility] [address] [place] [address]- Additional Instructions: Patient Education Heartburn Problem List/Past [...] Primary malignant neoplasm of prostate: Father. Normal [facility] Comment on above: Result Comment: Elec [...] caregiver may tell you to use certain qwbz-bmb-oknkiao medicines (antacids, acid reducers) for mild heartburn. [...] Spicy foods. ? Garlic and onions. ? [place] fruits, including oranges, grapefruit, jacqui, and limes. [...] 12/05/2012 Document Reviewed: 02/28/2012 [employer]Care? Patient Information ?2014 [employer] [facility] Formson 06-12-2020 Forms [id number]#1.00CD:127 [facility] CNOVon 03-17-2018 CNOV Office Visit (AGHWW1) ----FAUSTO CORRIGAN ([id number]) 1960 FDate Time Provider Department03/17/18 1:30 PM [...] Alcohol use: No Drug use: John OF Gusto noteMSK: + as noted in HPI.Physical Examination:On [...] Protective sensation intact at all pedalsites via [place] Gabrielle 5.07 monofilament bilateral. 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]Order(s):XR FOOT GENERAL 3V AP/LAT/OBL RT [[id number]] Order #: [id number] CONSULT TO ORTHOTIC/PROSTHETIC [[id number]] Order #: [id number]: 1Prescriptions as of 03/17/2018 Sig: ALBUTEROL SULFATE [...] (around 05/17/2018).Follow-up and Disposition History RecordedEncounter Number: [id number] Status:Closed by THOMAS DELGADILLO DPM on 04/17/18 [facility] PROGRESSon 03-17-2018 Protein HNO ID: [id number] thor: Thomas Jiang: (none)Author Type: PhysicianType: Progress [...] Alcohol use: No Drug use: John OF Gusto noteMSK: + as noted in HPI.Physical Examination:On General Observation: Patient is a pleasant, cooperative, well elrsygbcl69 year oldadult female. The patient is alert [...] Protective sensation intact at allpedal sites via [place] Gabrielle 5.07 monofilament bilateral.Proprioception intact at the [...] anticipated course of treatment.Rx for SAAFO from [facility] was given, patient to obtain and use to see [facility] pain Follow up in 2 monthsYosi Yu DPM PGY2I personally saw and evaluated the patient. I reviewed the resident'snote. I agree with the resident's assessment and plan unless otherwisenoted.Thomas Delgadillo DPM, FACFAS [facility] ----FAUSTO CORRIGAN ([id number]) 1960 [facility] Time Provider Eiglpnnhno02/6/17 AIMEE HERNANDEZ During your visit today, we recorded the following information about you:Krista Lagos 09/01/2017 10:30 AM SignedPatient called to tell us that her pharmacist told her to get a prior auth forher Provenleonila.Krista Lagos 09/01/2017 11:00 AM SignedSpoke to Pharmacy. [...] - AnaphylaxisDate Reviewed: 07/26/2017Reviewed by: Sis Kirkpatrick SEVERITY OF ILLNESS COORDINATOR - Fully AssessedReason for Visit: Insurance Authorization [[id number]] Cmt: pt called requesting prior auth for [...] Breath. Status:Closed by KRISTA LAGOS on 09/01/17 [facility] 08-18-2017 CNCO Letter TextNovember 2016Fausto Corrigan8196 [facility] [address] [address]Unvj Ms. Fausto Corrigan,It was a pleasure to see you in the Department of Pulmonary Medicine on07/26/2017.Attached please find a copy of your Visit Summary.I appreciate having the opportunity to see you. If I can be of furtherassistance to you, or if you have any questions regarding this report, pleasefeel free to contact my office.Sincerely,NATE Chaparro/Aidenment: Visit Summary Normal [facility] CBCon 07-26-2017 Erythrocyte distribution width Auto Ratio (RBC) 12.9 % Normal 11.5-15.0 [facility] Comment on above: Performed By: #### C BC, CMP ####[facility], [place] [phone] Erythrocytes (RBC) 10*6/uL Normal <0.01 [facility] Comment on above: Performed By: #### C BC, CMP ####[facility], [place] [phone] Erythrocytes (RBC) 5.08 10*6/uL Normal 3.90-5.20 [facility] Comment on above: Performed By: #### C BC, CMP ####[facility] [address], [place] [phone] Hematocrit (HCT) 47.7 % High 36.0-46.0 [facility] Comment on above: Performed By: #### C BC, CMP ####[facility] [address], [place] [phone] Hemoglobin mass conc (Bld) 15.3 g/dL Normal 11.5-15.5 [facility] Comment on above: Performed By: #### C BC, CMP ####[facility] [address], [place] [phone] MCH 30.1 pG Normal 26.0-34.0 [facility] Comment on above: Performed By: #### C BC, CMP ####[facility], [place] [phone] MCHC mass conc (RBC) 32.1 g/dL Normal 30.5-36.0 [facility] Comment on above: Performed By: #### C MAYANK, CMP ####[facility], [place] [phone] MCV 93.9 fL Normal 80.0-100.0 [facility] Comment on above: Performed By: #### C MAYANK, CMP ####[facility], [place] [phone] Platelet mean volume (PMV) 11.9 fL Normal 9.0-12.7 [facility] Comment on above: Performed By: #### Andrzej TALLEY, CMP ####[place] [address], [place] [phone] Platelets 283 10*3/uL Normal 150-400 [facility] Comment on above: Performed By: #### C MAYANK, CMP ####[facility], [place] [phone] WBC (Leukocytes) 13.36 10*3/uL High 3.70-11.00 [facility] Comment on above: Performed By: #### Andrzej TALLEY, CMP ####[facility], [place] [phone] CNOVon 07-26-2017 CNOV Office Visit (PSSCMN) ----FAUSTO CORRIGAN ([id number]) 1960 FDate Time Provider Vxvhepnavj33/30/17 3:30 PM [facility] MAIN PSSCMN During your visit today, we recorded the following information about you: Pulse Blood pressure Weight Height 75/minute 120/69 73 kg 1.52 Shannan Sosa DO 07/26/2017 5:18 PM SignedANESTHESIA PRE-OPERATIVE ASSESSMENT (PACE)SERVICE DATE: 07/26/2017SERVICE TIME: 4:56 PMASSESSMENT ANDamp; PLAN:Fausto Corrigan is a 57 year old female scheduled for sigmoid colectomy w/ CAREER CENTER ADVISOR perSurgery Request Case in MAIN on 08/03/17.PMH:COPD [...] lb 15 oz) SpO2 96% BMI 31.6 kg/d5Ookdd signs completed by: IMPACTWeight acquired: per HANDamp;P. [...] 2017 : 4:26 PM PAGER/CONTACT #:Referring Provider: ESEQUEIL THOMAS [[id number]]Allergies As of Date: 07/26/2017 Noted Allergy ReactionSULFA (SULFONAMIDE ANTIBIOTICS) 06/07/2017 4 - Hives 10 - AnaphylaxisDate Reviewed: 07/26/2017Reviewed by: Sis Hogan [facility] - Fully AssessedPrimary Visit Diagnosis:Pre-op evaluation [Z01.818]Prescriptions [...] Cosign Required by: James Vogel III[] Normal [facility] CNOV Office Visit (IMPAMN) ----FAUSTO CORRIGAN ([id number]) 1960 [facility] Qlhjglksrx85/30/17 2:15 PM RIVERA PATRICIA) IMPAMN During your [...] or fevers.Neuro: No history of TIA's, stroke, FAILURE ANALYSIS TECHNICIAN tumor, impaired sensorium, hemiplegia,paraplegia or quadriplegia. No neurological symptoms or problems.Respiratory: COPD on nebulizersCardiovascular: No history of HTN requiring medication, no history of angina,CHF, NM, cardiac surgery or stents. Denies rest pain, gangrene orrevascularization/amputati on for PVD. No history of cardiovascular symptoms orproblems.GI: Peptic Ulcer Disease on ZantacGU: No history of UTI in past 6 weeks. No history of renal failure. Notcurrently on or requiring dialysis. No history of symptoms or problems.RISK MANAGER: No vaginal bleeding due to menopause and [...] old [facility]: Dr. Fernandez of Surgery: 08/03/2017Planned Surgery/Procedure: Sigmoid Colectomy w/ CRAAllergies have been reviewed and verified. They include the following:Sulfa (Sulfonamide Antibiotics)Social HistorySubstance Use Topics- Smoking status: Former Smoker Years: 20.00 Types: Cigarettes Start date: 06/07/1997 Quit date: 06/26/2017- Smokeless tobacco: Never Used Comment: smokes 3-4 daily- Alcohol use NoMedications reviewed and updated: Armida Patricia MD 07/26/2017 4:05 PM Signed [facility]Patient Instructions for SurgeryFOOD INSTRUCTIONS:NO solid food [...] visit please do nothesitate to contact the [facility] at [phone] or [phone], [phone].Signature: Rivera Patricia MDDate: July 26, 2017Referring Provider: ESEQUIEL THOMAS [[id number]]Allergies As of Date: 07/26/2017 Noted Allergy ReactionSULFA (SULFONAMIDE ANTIBIOTICS) 06/07/2017 4 - Hives 10 - AnaphylaxisDate Reviewed: 07/26/2017Reviewed by: Sis Kirkpatrick LPN - Fully AssessedPrimary Visit Diagnosis:Chronic obstructive pulmonary disease, unspecified COPD type ([facility]) [J44.9] Other Visit Diagnoses:Pre-operative examination [Z01.818] [...] PM PREDNISONE 10 MG TABLET >> Sis D Samira Kirkpatrick SEVERITY OF ILLNESS COORDINATOR 07/26/2017 3:41 PM >> DIEGO JOSUEICA D L* WedJul 26, 2017 3:41 PM ATENOLOL 50 MG-CHLORTHALIDONE 25 MG TABLET >> Sis D Samira Mcleanter SEVERITY OF ILLNESS COORDINATOR 07/26/2017 3:41 PM >> SAMIRA RADHA SIS D L* WedJul 26, 2017 3:41 PM OXYCODONE-ACETAMINOPHEN 5 MG-325 MG TABLET >> Sis D Samira Mcleanter SEVERITY OF ILLNESS COORDINATOR 07/26/2017 3:41 PM >> SAMIRA RADHA SIS D L* WedJul 26, 2017 3:41 PM DOCUSATE SODIUM 100 MG CAPSULE >> Sis D Samira Kirkpatrick SEVERITY OF ILLNESS COORDINATOR 07/26/2017 3:41 PM >> SAMIRA DIEGO KIRKPATRICKICA D L* WedJul 26, 2017 3:41 PMProblem List As Of Date 07/26/2017 Noted Resolved 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 Other instructions from your clinician: [facility] Patient Instructions for Surgery FOOD INSTRUCTIONS: [...] please do not hesitate to contact the [facility] at [phone] or [phone], ext [phone]. Signature: Rivera Patricia MD Date: July 26, 2017Encounter Number: [id number] Status:Closed by RIVERA PATRICIA MD on 07/26/17 Normal [facility] CNOV Office Visit (ENDOMN) ----FAUSTO CORRIGAN ([id number]) 1960 FDate Time Provider Wwkxedjodr68/30/17 1:20 PM IVAN HYDE) ENDOMN During your visit today, we recorded the following information about you: Weight 73 kgToshia Javed, RN, RN 07/26/2017 2:21 PM SignedThank you for choosing the [facility] Department of Endocrinology,Diabetes and Metabolism. Being able [...] a lost opportunity for patients to receive [facility] care at the [facility].To Cancel an appointment, please choose one of the following: - Call the Appointment Call Center at [phone] - From [employer], Go to Appointments ? Cancel ApptsIf cancelling, consider your need to reschedule to prevent further delays inyour care.To Schedule an appointment, please choose one of the following: - Call the Appointment Call Center at [phone] - From [employer], Go to Appointments ? Request an Samara Hyde MD 07/27/2017 11:34 PM SignedDIABETES INITIAL CONSULTPATIENT NAME: Fausto CorriganMRN: [id number] DATE: 07/26/2017SERVICE TIME:REASON FOR CONSULT: DM Type 2REQUESTING PHYSICIAN:Ivan Hyde MD[address] [address]WPYDUTI CARE PHYSICIAN: No PcpSUBJECTIVEHISTORY OF PRESENT ILLNESS: [...] EXAM:Wt 73 kg (161 lb) BMI 31.61 kg/u8Kpnlumm: Well appearing, alert, in no acute distress, [...] 26, 2017TIME: 2:32 PMReferring Provider: IVAN HYDE) [[id number]]Allergies As of Date: 07/26/2017 Noted Allergy ReactionSULFA (SULFONAMIDE ANTIBIOTICS) 06/07/2017 4 - Hives 10 - AnaphylaxisDate Reviewed: 07/26/2017Reviewed by: Sis Kirkpatrick [facility] - Fully AssessedReason for Visit: Diabetes [34]Primary Visit Diagnosis:Uncontrolled type 2 diabetes mellitus without complication, without long-term current use of insulin ([facility]) [E11.65]Order(s):HB A1C B/O [5032086] Order #: [id number] TSH BLD [SQTSH] Order #: [id number] FUTUREPrescriptions as of 07/26/2017 Sig: ALBUTEROL SULFATE [...] your clinician: Thank you for choosing the [facility] Department of Endocrinology, Diabetes and Metabolism. Being able to provide excellent health care has allowed us to be # 3 in the country according to [employer]. Did you know that you need to call 48 hours in advance of your scheduled visit, if you are unable to make your appointment? The [facility]inology [facility] [place] thanks you for your commitment, because patients not showing to their appointment results in a lost opportunity for patients to receive [facility] health care at the [facility]. To Cancel an appointment, please choose one of the following: - Call the Appointment Call Center at [phone] - From [facility], Go to Appointments ? Cancel Appts If cancelling, consider your need to reschedule to prevent further delays in your care. To Schedule an appointment, please choose one of the following: - Call the Appointment Call Center at [phone] - From [facility], Go to Appointments ? Request an ApptEncounter Number: [id number] Status:Closed by IVAN HYDE MD on 07/27/17 Normal [facility] CNOV Office Visit (PULMMN) ----FAUSTO CORRIGAN ([id number]) 1960 [facility] Time Provider Magfpqgbng00/30/17 9:50 AM AIMEE HERNANDEZ During your visit today, we recorded the following information about you: Temperature Pulse Respiration Blood pressure 98.5 degrees 74/minute 20/minute 116/67 Weight Height 73 kg 1.524 Jo Hernandez MD 07/26/2017 3:23 PM SignedCarlsbad Medical Centeriratory InstitutePulmonary ConsultationCC: Pre-operative evaluationConsultation requested by Dr. 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 2 07/26/2017 12:14:11PM PRE/POST- ATS acceptability and repeatabilitystandards for spirometry met.Medications and Allergies were reviewed forpossibledrug interactions per policy MM-102. No contraindications or sensitivities werenoted. Respiratory meds taken in past 72H: Albuterol / 16 hours before testing. 4 puffs albuterol (360 mcg) delivered by MDI via valved holding chamber, HRpre=80/min, HRpost= 72/min. /JAQUAN//DIO nguyen??IMPRESSION: [facility] [place] Pulmonary Function Lab Pred LLN JUAN Pre % Post % % chgDate 991299 993356Snqr 11:44AM 12:10PM Height 152.4 152.4Weight 72.6 72.6 [...] 72 1 Cardia c:EKG - NSRASSESSMENT AND PLANFausto Amayates is a 57 year old female with:(Z01.818) [...] tolerated-Early ambulation and physical therapy as tolerated qhge-dnbdyhortfn-Eltyrjzk narcotics as much as possible-Bronchodilators as needed [...] from illnessMARIO ALBERTO Chaparroulmonary and Critical Care MedicineRespiratory InstituteRegency Hospital [facility] WestAimee Hernandez MD 07/26/2017 1:35 PM AddendumConsider lung cancer screening in the futureI would like to see you the day before your surgery to make sure you're feelingbetterPlease get the 6 minute walk test the same dayReferring Provider: ESEQUIEL THOMAS [[id number]]Allergies As of Date: 07/26/2017 Noted Allergy ReactionSULFA [...] wheezing.).Disp: 1 InhalerRfl: 5 SIX MINUTE WALK [6120148] Order #: [id number] FUTUREPrescriptions as of 07/26/2017 Sig: ALBUTEROL SULFATE [...] 07/26/2017 12:51 PM >> GABBY SPEARS MA [facility] Jul 26, 2017 12:51 PM Received from: External Pharmacy Received Sig: take 1 capsule by mouth twicea day PREDNISONE 10 MG TABLET >> Gabby Spears TREVOR 07/26/2017 12:51 PM >> SPEARS TREVORGABBY Jul 26, 2017 12:51 PM Received from: External Pharmacy ATENOLOL 50 MG-CHLORTHALIDONE 25 MG TABLET >> Gabby Spears TREVOR 07/26/2017 12:52 PM >> CHUYITA MURRAYGABBY [facility] Jul 26, 2017 12:52 PM Received from: External Pharmacy Received Sig: take 1 tablet by mouth oncedaily OXYCODONE-ACETAMINOPHEN 5 MG-325 MG TABLET >> Gabby Spears TREVOR 07/26/2017 12:50 PM >> SPEARS TREVORGABBY Jul 26, 2017 12:50 PM Pt. Takes as needed DOCUSATE SODIUM 100 MG CAPSULE >> Gabby Spears TREVOR 07/26/2017 12:49 PM >> CHUYITA MURRAY GABBY [facility] Jul 26, 2017 12:49 PM Pt. Taking [...] (on 08/23/2017).Follow-up and Disposition History RecordedEncounter Number: [id number] Status:Closed by AIMEE HERNANDEZ MD on 07/26/17 Normal [facility] Comp Metabolic Panelon 07-26 Alanine aminotransferase (ALT) 19 U/L Normal 7-38 [facility] Comment on above: Performed By: #### C BC, CMP ####[facility] [place] [phone] Albumin 4.3 g/dL Normal 3.9-4.9 [facility] Comment on above: Performed By: #### C MAYANK, CMP ####[facility] [place] [phone] Alkaline phosphatase (ALP) 96 U/L Normal 32-117 [facility] Comment on above: Performed By: #### C BC, CMP ####[facility] [place] [phone] Anion gap 18 mmol/L Normal 9-18 [facility] Comment on above: Performed By: #### C BC, CMP ####[facility] [address]CCynthia [place] [phone] Aspartate aminotransferase (AST) 16 U/L Normal 13-35 [facility] Comment on above: Performed By: #### C BC, CMP ####[facility] [address]CCynthia V[place] [phone] Bilirubin (total) 0.2 mg/dL Normal 0.2-1.3 [facility] Comment on above: Performed By: #### C BC, CMP ####[facility] [address] AveCPolaris, [place] [phone] Calcium 9.8 mg/dL Normal 8.5-10.2 [facility] Comment on above: Performed By: #### C BC, CMP ####[facility], [place] [phone] Chloride 96 mmol/L Low 97-105 [facility] Comment on above: Performed By: #### C BC, CMP ####[facility], [place] [phone] CO2 25 mmol/L Normal 22-30 [facility] Comment on above: Performed By: #### C MAYANK, CMP ####[place] [address] [address], [place] [phone] Creatinine 0.98 mg/dL High 0.58-0.96 [facility] Comment on above: Performed By: #### C MAYANK, CMP ####[place] [address] [address], [place] [phone] eGFR (non-black) 59 . Normal [facility] Comment on above: Result Comment: [...] GFR. Performed By: #### C MAYANK, CMP ####[facility], [place] [phone] eGFR (non-black) mL/min/{1.73_m2} Normal [facility] Comment on above: Performed By: #### C BC, CMP ####[address] [phone] Glucose mass conc 133 mg/dL High 74-99 [facility] Comment on above: Result Comment: The [place] Diabetes Association (ADA) provides guidance for cutoff [...] Standards of Medical Care in Diabetes 2016, [place] Diabetes Association. Diabetes Care. 2016.39(Suppl 1). Performed By: #### C BC, CMP ####[facility] [phone] Potassium molar conc 3.9 mmol/L Normal 3.7-5.1 [facility] Comment on above: Performed By: #### C BC, CMP ####[place] [address] [address] [phone] Protein 7.5 g/dL Normal 6.3-8.0 [facility] Comment on above: Performed By: #### C BC, CMP ####[facility] [place] [phone] Sodium 139 mmol/L Normal 136-144 [facility] Comment on above: Performed By: #### C BC, CMP ####[facility] [phone] Urea nitrogen 20 mg/dL Normal 7-21 [facility] Comment on above: Performed By: #### C BC, CMP ####[facility] [phone] Confirm Blood Typeon 017 ABO/RH(D) Positive Normal [facility] Comment on above: Performed By: #### C ONABO ####[facility] [phone] OBSOLETEon 07-26-2017 OBSOLETE Procedure (PULLMN) ----YESSYFAUSTO ([id number]) 1960 FDate Time Provider Ajfjruqffv95/30/17 9:00 AM PULM FCT LAB MAIN 6 ADDON PULLMN During your visit today, we recorded the following information about you:Referring Provider: ESEQUIEL THOMAS [[id number]]Allergies As of Date: 07/26/2017 Noted Allergy ReactionSULFA (SULFONAMIDE ANTIBIOTICS) 06/07/2017 4 - Hives 10 - AnaphylaxisDate Reviewed: 06/07/2017Reviewed by: Nicolle (Spray Drier Operator) JOSR Moncada - Fully AssessedReason for Visit: Spirometry [191]Primary Visit Diagnosis:Dyspnea, unspecified type [R06.00] Other Visit Diagnosis:Chronic obstructive pulmonary disease, unspecified COPD type ([facility]) [J44.9]Order(s):SPIROMETRY WITH DILATOR IF OBSTRUCTED [1208632] Order #: [id number]. #:[id number] ons as of 07/26/2017 Sig: OXYCODONE-ACETAMINOPHEN 5 [...] More... Status:Closed by ABIMAEL KENDALL on 07/26/17 [facility] PROGRESSon 07-26-2017 PROGRESS HNO ID: [id number] thor: Geoffrey (Res) NicholeuvenService: (none)Author Type: ResidentType: Progress NotesFiled: 07/26/2017 [...] lb 15 oz) SpO2 96% BMI 31.6 kg/j3Mrabq signs completed by: IMPACTWeight acquired: per HANDP. [...] 2017 : 4:26 PM PAGER/CONTACT #: Kendra [facility] PROGRESS HNO ID: [id number] thor: Sis [facility] County HospitalNService: (none)Author Type: (none)Type: Progress NotesFiled: 07/26/2017 [...] use NoMedications reviewed and updated: Armida Kirkpatrick SEVERITY OF ILLNESS COORDINATOR Normal [facility] PROGRESS HNO ID: [id number] thor: Ivan Sheffield) Dontrell: (none)Author Type: PhysicianType: Progress NotesFiled: 07/27/2017 11:34 PMNote Text:DIABETES INITIAL CONSULTPATIENT NAME: Fausto CorriganMRN: [id number] DATE: 07/26/2017SERVICE TIME:REASON FOR CONSULT: DM Type 2REQUESTING PHYSICIAN:Ivan Hyde MD[address]K[place]BPVTKS [place] [address]QURPMGG CARE PHYSICIAN: No PcpSUBJECTIVEHISTORY OF PRESENT ILLNESS: [...] EXAM:Wt 73 kg (161 lb) BMI 31.61 kg/e2Amgalym: Well appearing, alert, in no acute distress, [...] years. She will start taking it again mnbagsdwf817 mg twice a day. She has medication at home. Of importance is thattoday her fasting blood sugar was 1 33 mg/dL. We ordered a hemoglobin W6mnvuju has not been done. We will see her back in 6 weeks a repeathemoglobin A1c. Her blood sugars should improve once she is off steroids.SIGNATURE: Ivan Hyde, MDDATE: July 26, 2017TIME: 2:32 PM Normal [facility] PROGRESS HNO ID: [id number] thor: Cristina Vernon RtService: (none)Author Type: (none)Type: Progress NotesFiled: 07/26/2017 1:40 PMNote Text: Radiology Service Progress NotePATIENT NAME: Fausto CorriganMRN: [id number] OF SERVICE: July 26, 2017TIME: 1:40 PMPATIENT IDENTITY VERIFICATION COMPLETED USING TWO (2) METHODS: Patientconfirmed name verbally and Date of .PATIENT GENDER DATA: MalePATIENT RELEVANT IMPLANT DATA REVIEWED: Not ApplicableRADIOLOGY DEPARTMENT: General X-ray: Exam(s) Completed: Chest X-RayPERIPHERAL IV DATA: Not applicableSIGNED BY: Cristina Vernon RtOctober 2016 1:40 PM Normal [facility] PROGRESS HNO ID: [id number] thor: Aimee Gonzalez: (none)Author Type: PhysicianType: Progress NotesFiled: 07/26/2017 3:23 PMNote Text:Respiratory InstitutePulmonary ConsultationCC: Pre-operative evaluationConsultation requested by Dr. Thomas for a pre-operative pulmonaryevaluation. 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 2 07/26/2017 12:14:11PM PRE/POST- ATS acceptability andrepeatabilitystandards for spirometry met.Medications and Allergies were reviewed forpossibledrug interactions per policy MM-102. No contraindications orsensitivities werenoted. Respiratory meds taken in past 72H: Albuterol / 16 hours beforetesting. 4 puffs albuterol (360 mcg) delivered by MDI via valved holding chamber, HRpre=80/min, HRpost= 72/min. /JAQUAN//DIO nguyen??IMPRESSION: [facility] [place] Pulmonary Function Lab Pred LLN ULN Pre % Post % %chgDate 947647 096203Dzfg 11:44AM 12:10PM Height 152.4 152.4Weight 72.6 72.6 [...] 4.28 1.06 34 1.36 4429FIF 50 1.99 2.8875G48/75 2.34 1.25 3.42 0.67 29 0.84 3625FE%FIF 53.13 61.1998SVE5 1.95 2.05 5PEF 5.36 3.63 7.09 4.30 80 5.37 08041VAU 10.82 10.59-2FETPEF 0.08 0.04-56VBe%FV 4.39 3.07 -30VBEex 0.09 0.07-29 VC MAX 2.96 2.35 3.57 2.11 71 2.13 72 1 Luiz c:EKG - NSRASSEKINJAL AND Ab Corrigan is a 57 year [...] (Gurinder Respiratoray Failure Index. Gurinder, AM. Nancie [id number]; 232: 242). THaving a respiratory infection within the past month increases the risk. Iagree with postponing surgery until Aug 24 to reduce her risk.RECOMMENDATIONS:In order to minimize the risk of complications and optimize pulmonarystatus, we recommend the following:-Encourage aggressive incentive spirometry hourly both ayse-operativelyand post-operatively as tolerated-Early ambulation and physical therapy as tolerated hljc-eylvzegpnrl-Ozwddipm narcotics as much as possible-Bronchodilators as needed [...] illnessAmy Santana, MDPulmonary and Critical Care MedicineRespiratory InstituteRegency Hospital [facility] Normal [facility] Type and SCR (30D)on 017 ABO/RH(D) Positive Normal [facility] Comment on above: Performed By: #### T SCR30 ####[facility] [place], [place] [phone] Antibody Screen Negative Normal [facility] Comment on above: Performed By: #### T SCR30 ####[facility] [place], [place] [phone] XR CHEST 2V FRONTAL/LATon XR CHEST 2V [...] abdomen suggest prior cholecystectomy.IMPRESSION:N o acute radiographic abnormality.Natural Gas Basis Trader : PAUL Transcribe Date/Time: Jul 26 2017 2:28PDictated by : FABY SWANSON MDThis examination was interpreted and the report reviewed and electronically signed by: CORNELIUS BEAR MD on Jul 26 2017 4:55PM [id number] Normal [facility] HISTORY PHYSICALon HISTORY PHYSICAL HNO ID: [id number] thor: Rivera Sheffield) BhallaService: (none)Author Type: PhysicianType: [...] or fevers.Neuro: No history of TIA's, stroke, FAILURE ANALYSIS TECHNICIAN tumor, impaired sensorium,hemiplegia, paraplegia or quadriplegia. No neurological symptoms orproblems.Respiratory: COPD on nebulizersCardiovascular: No history of HTN requiring medication, no history ofangina, CHF, NM, cardiac surgery or stents. Denies rest pain, gangrene orrevascularization/amputati on for PVD. No history of cardiovascularsymptoms or problems.GI: Peptic Ulcer Disease on ZantacGU: No history of UTI in past 6 weeks. No history of renal failure. Notcurrently on or requiring dialysis. No history of symptoms or problems.RISK MANAGER: No vaginal bleeding due to menopause and [...] July 25, 2017 : 1:49 PM Normal [facility] HOSPon 06-08-2017 HOSP Patient Update (CORSMN) ----CORRIGANFAUSTO STODDARD ([id number]) 1960 FDate Time Provider Department06/08/17 ESEQUIEL THOMAS During your visit today, we recorded the following information about you:Allergies As of Date: 06/08/2017 Noted Allergy ReactionSULFA (SULFONAMIDE ANTIBIOTICS) 06/07/2017 4 - Hives 10 - AnaphylaxisDate Reviewed: 06/07/2017Reviewed by: Nicolle (Josr) JOSR Moncada - Fully AssessedPrimary Visit Diagnosis: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]Order(s):SURGICAL REQUEST - ELECTIVE [7847997] Order #: [id number]: 1 PER WHAT TO EXPECT DURING YOUR HOSPITAL STAY [4602517] Order #: [id number]: 1 CBC [SQCBC] Order #: [id number] FUTURE COMP METABOLIC PANEL [SQCMP] Order #: [id number] FUTURE CONFIRM BLOOD TYPE [SQCONABO] Order #: [id number] FUTURE TYPE + SCREEN,30 DAY [PXLIFA52] Order #: [id number] FUTURE ECG COMPLETE W INTERPRETATION [ECG01] Order #: [id number] FUTURE REFER FOR ADMIT INTERVIEW [9823141] Order #: [id number] HANDP FOR SURGERY [Y4546OTH] Order #: [id number] CONSULT TO PATIENT EDUCATION [19991031] Order #: [id number]: 1 CONSULT TO ANESTHESIOLOGY [9001] Order #: [id number]: 1 CONSULT TO INT MED-IMPACT [0024605] Order #: [id number]: 1 CONSULT TO PULMONARY MEDICINE [9210530] Order #: [id number]: 1 CONSULT TO ENDOCRINOLOGY [9006] Order #: [id number]: 1Prescriptions as of 06/08/2017 Sig: OXYCODONE-ACETAMINOPHEN 5 [...] FOR* More...Follow-up and Disposition History RecordedEncounter Number: [id number] Status:Closed by ESEQUIEL THOMAS MD, FACS on 06/09/17 [facility] CNOVon 06-07-2017 CNOV Office Visit (TOMAS) ----FAUSTO CORRIGAN ([id number]) 1960 FDate Time Provider Department06/07/17 1:20 PM ESEQUIEL THOMAS During your visit today, we recorded the following information about you: Temperature Pulse Blood pressure Weight 97.8 degrees 79/minute 119/76 73.5 kg Height 1.537 Geovany Thomas MD FACS 06/07/2017 3:44 PM SignedNew Patient ConsultREASON FOR Rafia Corrigan is a 56 year old female who is scheduled for a consult at [facility] for Consult [...] pain during BMs.She does have COPD from terminologist smoking, but says she only has 3-4 [...] RepositionGeneral: MalaiseNeuro: No history of TIA's, stroke, FAILURE ANALYSIS TECHNICIAN tumor, impaired sensorium, hemiplegia,paraplegia or quadraplegia. No neurological symptoms or problems.Respiratory: COPDCardiovascular: Hx HTNGI: Positive for GERD, PUD, Heartburn, Abdominal pain, Diverticulitis, Historyof polypsGU: No history of UTI in past 6 weeks. No history of renal failure. Notcurrently on or requiring dialysis. No history of symptoms or problems.RISK MANAGER: yellow/brown drainage from vagina x2 months : [...] FACSDATE: 06/07/17TIME: 2:32 PMReferring Provider: ZAID MICHAELS [[id number]]Allergies As of Date: 06/07/2017 Noted Allergy ReactionSULFA [...] ESEQUIEL THOMAS MD, FACS on 06/07/17 Normal [facility] HISTORY PHYSICALon HISTORY PHYSICAL HNO ID: [id number] thor: Esequiel Goodwin: (none)Author Type: PhysicianType: HANDPFiled: 06/07/2017 3:44 PMNote Text:New Patient ConsultREASON FOR Rafia Corrigan is a 56 year old female who is scheduled for a consult at [facility] of Zaid Michaels for Consult [...] pain during BMs.She does have COPD from senior care smoking, but says she only has 3-4cigarettes [...] RepositionGeneral: MalaiseNeuro: No history of TIA's, stroke, FAILURE ANALYSIS TECHNICIAN tumor, impaired sensorium,hemiplegia, paraplegia or quadraplegia. No neurological symptoms orproblems.Respiratory: COPDCardiovascular: Hx HTNGI: Positive for GERD, PUD, Heartburn, Abdominal pain, Diverticulitis,History of polypsGU: No history of UTI in past 6 weeks. No history of renal failure. Notcurrently on or requiring dialysis. No history of symptoms or problems.RISK MANAGER: yellow/brown drainage from vagina x2 months : [...] Thomas MD FACSDATE: 06/07/17TIME: 2:32 PM Normal [facility] SR-CT ABD/PELVIS W CON IMPOR Ton 04-15-2017 SR-CT ABD/PELVIS W CON IMPORT Images were obtained outside of [facility] [id number] Normal [facility] Vital Signs Date Time Vital Sign Value Performing Clinician Todd bishop 10-06-2022 13:45-0500 Body height 154.94 cm Veronique Jeff Vicentechongholkali Work Phone: [facility] DO Work Phone: 10-06-2022 13:45-0500 Body mass index (BMI) [Ratio] 29.29 kg/m2 Veronique Jeff Vicentehholz Work Phone: [facility] DO Work Phone: 10-06-2022 13:45-0500 Body surface area Derived from formula 1.7 m2 Veronique Jeff Vicentehholkali Work Phone: [facility] DO Work Phone: 10-06-2022 13:45-0500 Body weight 70.31 kg Veronique Jeff Vicentechongholz Work Phone: [facility] DO Work Phone: 10-06-2022 13:45-0500 Diastolic blood pressure 80 mm[Hg] Veronique Jeff Vicentehholkali Work Phone: [facility] DO Work Phone: 10-06-2022 13:45-0500 Heart rate 72 /min Veronique Jeff Vicentehholz Work Phone: [facility] DO Work Phone: 10-06-2022 13:45-0500 Systolic blood pressure 142 mm[Hg] Veronique Zhanghholz Work Phone: [facility] DO Work Phone: 10-16-2021 11:41-0500 Body height 154.94 cm Dara Mills Work Phone: [facility] DO Work Phone: 10-16-2021 11:41-0500 Body mass index (BMI) [Ratio] 30.04 kg/m2 Dara Mills Work Phone: [facility] DO Work Phone: 10-16-2021 11:41-0500 Body surface area Derived from formula 1.71 m2 Dara Mills Work Phone: [facility] DO Work Phone: 10-16-2021 11:41-0500 Body weight 72.12 kg Dara Mills Work Phone: [facility] DO Work Phone: 10-16-2021 11:41-0500 Diastolic blood pressure 82 mm[Hg] Dara Mills Work Phone: [facility] DO Work Phone: 10-16-2021 11:41-0500 Heart rate 65 /min Dara Mills Work Phone: [facility] DO Work Phone: 10-16-2021 11:41-0500 Systolic blood pressure 136 mm[Hg] Dara Mills Work Phone: [facility] DO Work Phone: 04-08-2021 11:18-0400 Body height 152.4 cm [facility] Work Phone: 04-08-2021 11:18-0400 Body mass index (BMI) [Ratio] 30.66 kg/m2 [facility] Work Phone: 04-08-2021 11:18-0400 Body weight 71.22 kg [facility] Work Phone: 04-08-2021 11:18-0400 Diastolic blood pressure 82 mm[Hg] [facility] Work Phone: 04-08-2021 11:18-0400 Heart rate 64 /min [facility] Work Phone: 04-08-2021 11:18-0400 Respiratory rate 18 /min [facility] Work Phone: 04-08-2021 11:18-0400 SaO2% (BldA) [Mass fraction] 97 % [facility] Work Phone: 04-08-2021 11:18-0400 Systolic blood pressure 144 mm[Hg] [facility] Work Phone: Encounters Encounter Date Encounter Type Care Provider Facility Start: 03-20-2024 End: 03-20-2024 ambulatory VERONIQUE VICENTEChongDANNI Not Available Start: 01-17-2024 ambulatory UNKNOWN PROVIDER Facili ty:[facility] Start: 01-19-2023 End: 01-19-2023 ambulatory BORA AMBRIZ VICENTEChongDANNI Facility:[facility] Start: 10-06-2022 Office outpatient vi sit 25 minutes Veronique Jeff Vicentechongamaurykali Work Phone: [facility] DO Work Phone: Start: 10-06-[address] Rafael Washington Facility: Start: 09-23-2022 Rx Renewal Dara Mills Work Phone: [facility] DO Work Phone: Start: 09-01-2022 End: 09-02-2022 ambulatory OLIVER ALVARADO . Facility:[facility] Start: 07-08-[address] 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 Rafael Washington Facility: Start: 10-16-2021 Office outpatient vi sit 15 minutes Dara Mills Work Phone: [facility] DO Work Phone: Start: 08-18-2021 End: 08-19-2021 ambulatory [facility] Start: 07-31-2021 End: 08-01-2021 ambulatory [facility] Start: 07-31-2021 End: 07-31-2021 Subsequent hospital visit by physician [facility] R[facility] Comment on above: Arrived Start: 07-30-2021 End: 07-31-2021 ambulatory [facility] Start: 07-30-2021 End: 07-30-2021 Subsequent hospital visit by physician [facility] Rm 1 [facility] Comment on above: Arrived Start: 07-21-2021 End: 07-22-2021 ambulatory [facility] Start: 07-21-2021 End: 07-21-2021 Subsequent hospital visit by physician [facility] Rm 1 [facility] Comment on above: Arrived Start: 07-17-2021 End: 07-18-2021 ambulatory [facility] Start: 07-17-2021 End: 07-17-2021 Subsequent hospital visit by physician [facility] Rm 1 [facility] Comment on above: Arrived Start: 07-10-2021 End: 07-11-2021 ambulatory [facility] Start: 07-10-2021 End: 07-10-2021 Subsequent hospital visit by physician [facility] Rm 1 [facility] Comment on above: Arrived Start: 07-09-2021 End: 07-10-2021 ambulatory [facility] Start: 07-09-2021 End: 07-09-2021 Subsequent hospital visit by physician [facility] Rm 1 [facility] Comment on above: Arrived Start: 07-07-2021 End: 07-07-2021 Subsequent hospital visit by physician [facility] Rm 1 [facility] Comment on above: Arrived Start: 07-02-2021 End: 07-03-2021 ambulatory [facility] Start: 07-02-2021 End: 07-02-2021 Subsequent hospital visit by physician [facility] Cardiop[facility] Re[facility] Rm 2 [facility] Re[facility] Comment on above: Arrived Start: 05-29-2021 End: 05-30-2021 ambulatory [facility] Start: 05-28-2021 End: 05-29-2021 ambulatory [facility] Start: 05-28-2021 End: 05-28-2021 Subsequent hospital visit by physician [facility] Rm 2 [facility] Re[facility] Comment on above: Arrived Start: 05-26-2021 End: 05-27-2021 ambulatory [facility] Start: 05-26-2021 End: 05-26-2021 Subsequent hospital visit by physician [facility] Rm 2 [facility] Comment on above: Arrived Start: 05-22-2021 End: 05-23-2021 ambulatory [facility] Start: 05-22-2021 End: 05-22-2021 Subsequent hospital visit by physician [facility] Rm 2 [facility] Comment on above: Arrived Start: 05-19-2021 End: 05-20-2021 ambulatory [facility] Start: 05-19-2021 End: 05-19-2021 Subsequent hospital visit by physician [facility] Rm 2 [facility] Comment on above: Arrived Start: 05-15-2021 End: 05-16-2021 ambulatory [facility] Start: 05-15-2021 End: 05-15-2021 Subsequent hospital visit by physician [facility] Rm 2 [facility] Comment on above: Arrived Start: 05-12-2021 End: 05-13-2021 ambulatory [facility] Start: 05-08-2021 End: 05-09-2021 ambulatory [facility] Start: 05-08-2021 End: 05-08-2021 Subsequent hospital visit by physician [facility] Rm 2 [facility] Comment on above: Arrived Start: 05-07-2021 End: 05-08-2021 ambulatory [facility] Start: 05-05-2021 End: 05-06-2021 ambulatory [facility] Start: 05-01-2021 End: 05-02-2021 ambulatory [facility] Start: 04-28-2021 End: 04-29-2021 ambulatory [facility] Start: 04-28-2021 End: 04-28-2021 Subsequent hospital visit by physician [facility] Rm 2 [facility] Comment on above: Arrived Start: 04-23-2021 End: 04-24-2021 ambulatory [facility] Start: 04-23-2021 End: 04-23-2021 Subsequent hospital visit by physician [facility] Card[facility] Rm 2 [facility] Comment on above: Arrived Start: 04-21-2021 End: 04-22-2021 ambulatory [facility] Start: 04-21-2021 End: 04-21-2021 Subsequent hospital visit by physician [facility] Card[facility] Rm 2 [facility] Comment on above: Arrived Start: 04-14-2021 End: 04-15-2021 ambulatory [facility] Start: 04-14-2021 End: 04-14-2021 Subsequent hospital visit by physician [facility] Card[facility] Rm 2 [facility] Comment on above: Arrived Start: 04-10-2021 End: 04-11-2021 ambulatory [facility] Start: 04-08-2021 End: 04-09-2021 ambulatory [facility] Start: 04-08-2021 End: 04-08-2021 Subsequent hospital visit by physician [facility] Comment on above: Arrived Start: 05-19-2018 Patient encounter THOMAS DELGADILLO Facility:[facility] Start: 03-17-2018 End: 03-17-2018 Patient encounter THOMAS DELGADILLO Facility:[facility] Start: 02-03-2018 Patient encounter THOMAS DELGADILLO Facility:[facility] Start: 07-26-2017 End: 07-26-2017 Ambulatory ESEQUIEL THOMAS [facility] Start: 07-26-2017 End: 07-26-2017 Ambulatory IVAN HYDE [facility] Start: 07-26-2017 End: 07-27-2017 Ambulatory ESEQUIEL THOMAS [facility] Start: 07-26-2017 End: 07-26-2017 Ambulatory ESEQUIEL Andrzej THOMAS [facility] Start: 06-07-2017 End: 06-07-2017 Ambulatory ESEQUIEL Donnelly YANELIS [facility] Procedures Date Procedure Procedure Detail Performing Clinician [...] Start: 10-06-2023 FUV, Provider: Rafael Washington, Status: Julio, Time: 10:30 AM FUV, Provider: Rafael Washington, Status: Pen, Time: 10:30 AM [facility] DO Work Phone: Start: 10-06-2022 FUV, Provider: Rafael Washington, Status: Julio, Time: 1:20 PM FUV, Provider: Rafael Washington, Status: Julio, Time: 1:20 PM [facility] DO Work Phone: Start: 04-14-2022 FUV, Provider: Rafael Washington, Status: Pen, Time: 11:20 AM FUV, Provider: Rafael Washington, Status: Julio, Time: 11:20 AM [facility] DO Work Phone: Start: 08-18-2021 End: 08-18-2021 Patient encounter procedure 08/18/2021 Appointment Cardiac Rehabilitation [facility] Cardiac Re[facility] Start: 08-18-2021 End: 08-18-2021 Patient encounter procedure 08/18/2021 Appointment Cardiac Rehabilitation [facility] Card[facility] Start: 08-14-2021 End: 08-14-2021 Patient encounter procedure 08/14/2021 Appointment Cardiac Rehabilitation [facility] Card[facility] Start: 08-14-2021 End: 08-14-2021 Patient encounter procedure 08/14/2021 Appointment Cardiac Rehabilitation [facility] Card[facility] Start: 08-13-2021 End: 08-13-2021 Patient encounter procedure 08/13/2021 Appointment Cardiac Rehabilitation [facility] Card[facility] Start: 08-13-2021 End: 08-13-2021 Patient encounter procedure 08/13/2021 Appointment Cardiac Rehabilitation [facility] Start: 08-11-2021 End: 08-11-2021 Patient encounter procedure 08/11/2021 Appointment Cardiac Rehabilitation [facility] Start: 08-11-2021 End: 08-11-2021 Patient encounter procedure 08/11/2021 Appointment Cardiac Rehabilitation [facility] Start: 08-07-2021 End: 08-07-2021 Patient encounter procedure 08/07/2021 Appointment Cardiac Rehabilitation [facility] Start: 08-07-2021 End: 08-07-2021 Patient encounter procedure 08/07/2021 Appointment Cardiac Rehabilitation [facility] Card[facility] Start: 08-06-2021 End: 08-06-2021 Patient encounter procedure 08/06/2021 Appointment Cardiac Rehabilitation [facility] Start: 08-06-2021 End: 08-06-2021 Patient encounter procedure 08/06/2021 Appointment Cardiac Rehabilitation [facility] Start: 08-04-2021 End: 08-04-2021 Patient encounter procedure 08/04/2021 Appointment Cardiac Rehabilitation [facility] Start: 08-04-2021 End: 08-04-2021 Patient encounter procedure 08/04/2021 Appointment Cardiac Rehabilitation [facility] Start: 07-31-2021 End: 07-31-2021 Patient encounter procedure 07/31/2021 Appointment Cardiac Rehabilitation [facility] Start: 07-31-2021 End: 07-31-2021 Patient encounter procedure 07/31/2021 Appointment Cardiac Rehabilitation [facility] Start: 07-30-2021 End: 07-30-2021 Patient encounter procedure 07/30/2021 Appointment Cardiac Rehabilitation [facility] Start: 07-30-2021 End: 07-30-2021 Patient encounter procedure 07/30/2021 Appointment Cardiac Rehabilitation [facility] Card[facility] Start: 07-28-2021 End: 07-28-2021 Patient encounter procedure 07/28/2021 Appointment Cardiac Rehabilitation [facility] Start: 07-28-2021 End: 07-28-2021 Patient encounter procedure 07/28/2021 Appointment Cardiac Rehabilitation [facility] Start: 2021 End: 2021 Patient encounter procedure 2021 Appointment Cardiac Rehabilitation [facility] Card[facility] Start: 2021 End: 2021 Patient encounter procedure 2021 Appointment Cardiac Rehabilitation [facility] Start: 07-23-2021 End: 07-23-2021 Patient encounter procedure 07/23/2021 Appointment Cardiac Rehabilitation [facility] Start: 07-23-2021 End: 07-23-2021 Patient encounter procedure 07/23/2021 Appointment Cardiac Rehabilitation [facility] Start: 07-21-2021 End: 07-21-2021 Patient encounter procedure 07/21/2021 Appointment Cardiac Rehabilitation [facility] Start: 07-17-2021 End: 07-17-2021 Patient encounter procedure 07/17/2021 Appointment Cardiac Rehabilitation [facility] Start: 07-16-2021 End: 07-16-2021 Patient encounter procedure 07/16/2021 Appointment Cardiac Rehabilitation [facility] Start: 07-14-2021 End: 07-14-2021 Patient encounter procedure 07/14/2021 Appointment Cardiac Rehabilitation [facility] Start: 07-10-2021 End: 07-10-2021 Patient encounter procedure 07/10/2021 Appointment Cardiac Rehabilitation [facility] Start: 07-09-2021 End: 07-09-2021 Patient encounter procedure 07/09/2021 Appointment Cardiac Rehabilitation [facility] Start: 07-07-2021 End: 07-07-2021 Patient encounter procedure 07/07/2021 Appointment Cardiac Rehabilitation [facility] Start: 07-03-2021 End: 07-03-2021 Patient encounter procedure 07/03/2021 Appointment Cardiac Rehabilitation [facility] Start: 07-02-2021 End: 07-02-2021 Patient encounter procedure 07/02/2021 Appointment Cardiac Rehabilitation [facility] Start: 06-30-2021 End: 06-30-2021 Patient encounter procedure 06/30/2021 Appointment Cardiac Rehabilitation [facility] Start: 06-26-2021 End: 06-26-2021 Patient encounter procedure 06/26/2021 Appointment Cardiac Rehabilitation [facility] Start: 06-25-2021 End: 06-25-2021 Patient encounter procedure 06/25/2021 Appointment Cardiac Rehabilitation [facility] Start: 06-23-2021 End: 06-23-2021 Patient encounter procedure 06/23/2021 Appointment Cardiac Rehabilitation [facility] Start: 06-19-2021 End: 06-19-2021 Patient encounter procedure 06/19/2021 Appointment Cardiac Rehabilitation [facility] Start: 06-18-2021 End: 06-18-2021 Patient encounter procedure 06/18/2021 Appointment Cardiac Rehabilitation [facility] Start: 06-16-2021 End: 06-16-2021 Patient encounter procedure 06/16/2021 Appointment Cardiac Rehabilitation [facility] Start: 06-12-2021 End: 06-12-2021 Patient encounter procedure 06/12/2021 Appointment Cardiac Rehabilitation [facility] Start: 06-11-2021 End: 06-11-2021 Patient encounter procedure 06/11/2021 Appointment Cardiac Rehabilitation [facility] Start: 06-09-2021 End: 06-09-2021 Patient encounter procedure 06/09/2021 Appointment Cardiac Rehabilitation [facility] Start: 06-05-2021 End: 06-05-2021 Patient encounter procedure 06/05/2021 Appointment Cardiac Rehabilitation [facility] Start: 06-04-2021 End: 06-04-2021 Patient encounter procedure 06/04/2021 Appointment Cardiac Rehabilitation [facility] Start: 06-02-2021 End: 06-02-2021 Patient encounter procedure 06/02/2021 Appointment Cardiac Rehabilitation [facility] Start: 05-29-2021 End: 05-29-2021 Patient encounter procedure 05/29/2021 Appointment Cardiac Rehabilitation [facility] Start: 05-28-2021 Influenza vaccination Flu vaccine (# 1) [facility] Phone: Start: 05-28-2021 End: 05-28-2021 Patient encounter procedure 05/28/2021 Appointment Cardiac Rehabilitation [facility] Start: 05-26-2021 End: 05-26-2021 Patient encounter procedure 05/26/2021 Appointment Cardiac Rehabilitation [facility] Start: 05-22-2021 End: 05-22-2021 Patient encounter procedure 05/22/2021 Appointment Cardiac Rehabilitation [facility] Start: 05-21-2021 End: 05-21-2021 Patient encounter procedure 05/21/2021 Appointment Cardiac Rehabilitation [facility] Start: 05-19-2021 End: 05-19-2021 Patient encounter procedure 05/19/2021 Appointment Cardiac Rehabilitation [facility] Start: 05-15-2021 End: 05-15-2021 Patient encounter procedure 05/15/2021 Appointment Cardiac Rehabilitation [facility] Start: 05-14-2021 End: 05-14-2021 Patient encounter procedure 05/14/2021 Appointment Cardiac Rehabilitation [facility] Start: 05-12-2021 End: 05-12-2021 Patient encounter procedure 05/12/2021 Appointment Cardiac Rehabilitation [facility] Start: 05-08-2021 End: 05-08-2021 Patient encounter procedure 05/08/2021 Appointment Cardiac Rehabilitation [facility] Start: 05-07-2021 End: 05-07-2021 Patient encounter procedure 05/07/2021 Appointment Cardiac Rehabilitation [facility] Start: 05-05-2021 End: 05-05-2021 Patient encounter procedure 05/05/2021 Appointment Cardiac Rehabilitation [facility] Start: 05-01-2021 End: 05-01-2021 Patient encounter procedure 05/01/2021 Appointment Cardiac Rehabilitation [facility] Start: 04-30-2021 End: 04-30-2021 Patient encounter procedure 04/30/2021 Appointment Cardiac Rehabilitation [facility] Start: 04-28-2021 End: 04-28-2021 Patient encounter procedure 04/28/2021 Appointment Cardiac Rehabilitation [facility] Start: 04-24-2021 End: 04-24-2021 Patient encounter procedure 04/24/2021 Appointment Cardiac Rehabilitation [facility] Start: 04-23-2021 End: 04-23-2021 Patient encounter procedure 04/23/2021 Appointment Cardiac Rehabilitation [facility] Start: 04-21-2021 End: 04-21-2021 Patient encounter procedure 04/21/2021 Appointment Cardiac Rehabilitation [facility] Start: 04-17-2021 End: 04-17-2021 Patient encounter procedure 04/17/2021 Appointment Cardiac Rehabilitation [facility] Start: 04-16-2021 End: 04-16-2021 Patient encounter procedure 04/16/2021 Appointment Cardiac Rehabilitation [facility] Start: 04-14-2021 End: 04-14-2021 Patient encounter procedure 04/14/2021 Appointment Cardiac Rehabilitation [facility] Start: 04-10-2021 End: 04-10-2021 Patient encounter procedure 04/10/2021 Appointment Cardiac Rehabilitation [facility] Start: 2012 Screening for malign ant neoplasm of breast Breast cancer screen [employer] Phone: Start: 2012 Shingles Vaccine (1 of 2) Shingles Vaccine (1 of 2) [employer] Phone: Start: 2007 Screening for malign ant neoplasm of colon Colon cancer screen colonoscopy [facility] Phone: Start: 2002 Diabetes screen Diabetes screen [facility] Phone: Start: 1992 Screening for malign ant neoplasm of cervix [employer] Phone: Start: 1983 Screening for malign ant neoplasm of cervix [employer] Phone: Start: 1981 DTaP/Tdap/Td vaccine (1 - Tdap) DTaP/Tdap/Td vaccine (1 - Tdap) [facility] Start: 1977 HIV screening HIV screen [facility] Work Phone: Start: 1974 COVID-19 Vaccine (1) COVID-19 Vaccin e (1) [employer] Work Phone: Start: 1972 Lipid panel Lipid screen [facility] Work Phone: Start: 1968 Pneumococcal 0-64 ye ars Vaccine (1 of 2 - PPSV23) Pneumococcal 0-64 years Vaccine (1 of 2 - PPSV23) [facility]: Start: 1962 Creatinine measurement Creatinine mo [facility]: Start: 1962 Hepatitis C screening Hepatitis C sc reen [employer] Phone: Start: 1962 Potassium monitoring Potassium monit oring [employer] Phone: CARDIAC PHASE II [facility] Work Phone: Comment on above: Ordered: 05/26/2021 Ordered: 05/28/2021 Ordered: 07/02/2021 Payers Date Payer Category Payer Unknown [id number] 2.16.8 [id number] 1962 Unknown [id number] 2.16.8 [id number] 1962 Unknown [id number] 2.16.8 [id number] 1962 Unknown [id number] 2.16.8 [id number] 1962 Unknown [id number] 2.16.8 [id number] 1962 Unknown [id number] 2.16.8 [id number] 1962 Unknown [id number] 2.16.8 [id number] 1962 Unknown [id number] 2.16.8 [id number] 1962 Unknown [id number] 2.16.8 [id number] 1962 Unknown [id number] 2.16.8 40.1.068017.3.579.2.173 1960 Unknown [id number] 2.16.8 40.1.947990.3.579.2.173 1962 Unknown [id number] 2.16.8 40.1.500003.3.579.2.173 1962 Unknown [id number] 2.16.8 40.1.014525.3.579.2.173 1962 Unknown [id number] 2.16.8 40.1.755346.3.579.2.173 1962 Unknown [id number] 2.16.8 40.1.711051.3.579.2.173 1962 Unknown [id number] 2.16.8 40.1.040794.3.579.2.173 1962 Unknown [id number] 2.16.8 40.1.056686.3.579.2.173 1962 Unknown [id number] 2.16.8 40.1.552133.3.579.2.173 1962 Unknown [id number] 2.16.8 40.1.239431.3.579.2.173 1962 Unknown [id number] 2.16.8 40.1.293932.3.579.2.173 1962 Unknown [id number] 2.16.8 40.1.176399.3.579.2.173 1962 Unknown [id number] 2.16.8 40.1.644745.3.579.2.173 1962 Unknown [id number] 2.16.8 40.1.066341.3.579.2.173 1962 Unknown [id number] 2.16.8 40.1.596406.3.579.2.173 1962 Unknown [id number] 2.16.8 40.1.500752.3.579.2.173 1962 Unknown [id number] 2.16. 840.1.170436.3.579.2.356 1962 Unknown [id number] 2.16. 840.1.815691.3.579.2.356 1962 Unknown [id number] 2.16. 840.1.710409.3.579.2.356 1962 Unknown [id number] 2.16.84 0.1.799704.3.579.2.593 1962 Unknown [id number] 2.16.84 0.1.354055.3.579.2.593 1962 Unknown [id number] 2.16.84 0.1.353122.3.579.2.593 1962 Unknown [id number] 2.16.84 0.1.742259.3.579.2.593 1962 Unknown [id number] 2.16. 840.1.295919.3.579.2.732 1962 Unknown [id number] 2.16.84 0.1.959973.3.579.2.1259 1959 Medicaid [id number] 1959 Unknown [id number] Unknown Social History Date Type Detail Facility Start: 04-08-2021 Tobacco smoking stat [facility] Current every day smoker [employer] Phone: History of tobacco use Cigarette Smoker [facility] [employer] Start: 04-08-2021 Cigarettes smoked current (pack per day) - Reported [employer] Phone: Comment on above: POP DAILY; 6 CIGS A DAY; Start: 04-08-2021 Tobacco use and exposure Never used [employer] Start: 04-08-2021 Alcohol intake Ex-drinker (finding) [employer] Phone: Start: 04-08-2021 Tobacco Comment 2 cigs a day [employer] Phone: Start: 1960 Sex Assigned At Not on file [facility] [employer] Phone: History of Present illness Narrative 04-08-2021 Dana Romero RN - 04/08/2021 11:00 AM EDT Note Date & Type Note Facility 04-08-2021 History of Present illness Narrative Cardiac Rehab Initial History and Assessment Fausto Corrigan 1960 04/08/2021 Primary Diagnosis: s/p PTCA Living Will: No On File: N/A Durable Power of School Social Worker:No Medical History Past Medical History: Diagnosis Date [...] living? *If greater than 5 symptoms listed, long term care social worker notified. Cardiac Rehab Pre - [...] daily -smoking cessation documented in this encounter [employer] Phone: Summary Purpose Family History No Family [...] Mother, Father(V16.9, Z80.9) Status:Active Heart problem: Mother, Anel r Status:Active Unknown Family Member Name Dates Details FH: diabetes mellitus: Eva r, Father(V18.0, Z83.3) Status:Active Family history of malignant neoplasm: Mother, Father(V16.9, Z80.9) Status:Active Heart problem: MotherAnel r Status:Active Advance Directives No Advanced Directives [...] for follow-up. She had inferior ST elevation NM with primary revascularization of the RCA in [...] She has a history of previous inferior NM in February 2021 (late presenting NM) with PCI of the RCA at that [...] section and content) DATE CREATED AUTHOR 03/22/2018 [facility] DATE CREATED AUTHOR AUTHOR'S ORGANIZ ATION 04/18/2018 [facility] DATE CREATED AUTHOR AUTHOR'S ORGANIZ ATION 04/18/2018 [facility] DATE CREATED AUTHOR AUTHOR'S ORGANIZ ATION 04/08/2021 [facility] DATE CREATED AUTHOR AUTHOR'S ORGANIZ ATION 08/21/2021 [facility] DATE CREATED AUTHOR AUTHOR'S ORGANIZ ATION 10/19/2021 [facility] DATE CREATED AUTHOR AUTHOR'S ORGANIZ ATION 10/06/2022 [facility] DATE CREATED AUTHOR AUTHOR'S ORGANIZ ATION 10/07/2022 [employer] DATE CREATED AUTHOR AUTHOR'S ORGANIZ ATION 01/21/2023 [facility] DATE CREATED AUTHOR AUTHOR'S ORGANIZ ATION 01/18/2024 [facility] DATE CREATED AUTHOR AUTHOR'S ORGANIZ ATION 03/20/2024 [facility] FOR RECORDS PERTAINING TO PATIENTS WHO ARE [...] BE BASED ON THE PRIMARY CLINICAL RECORDS. [employer] provides no warranty or guarantee of the accuracy or completeness of information in this document.
[2024-04-12 15:10] LABS: Bilirubin Urine NEGATIVE (NEGATIVE); Blood Urine MODERATE (NEGATIVE); Clarity Urine CLEAR (CLEAR); Color Urine LT. YELLOW (YELLOW); Glucose Urine UA >=1000 mg/dL (NEGATIVE); Ketones Urine NEGATIVE (NEGATIVE); Leukocyte Esterase Urine TRACE (NEGATIVE); Nitrite Urine NEGATIVE (NEGATIVE); Protein Urine NEGATIVE (NEG/TRACE); Specific Gravity Urine <=1.005 (1.005-1.025)
[2024-04-12 15:25] LABS: Urine Microscopic Indicated YES
[2024-04-12 16:08] LABS: Bacteria Urine TRACE #/HPF (NONE SEEN); Cast Seen? NONE SEEN #/LPF (NONE SEEN); Crystals Seen? None Seen #/HPF (None Seen); Mucus Urine NONE SEEN (NONE SEEN); Squamous Epithelial Cell Urine FEW #/LPF (NONE/RARE); Urine Culture Indicated YES
== END 2024-04-12 11:41 | disposition home or self-care (01) ==
LOC: LAB 11:42
PROVIDERS: PCP Nurse Practitioner; Visit Provider Nurse Practitioner
DX: N18.31 Chronic kidney disease, stage 3a (principal); R31.29 Other microscopic hematuria; E11.9 Type 2 diabetes mellitus without complications; E87.6 Hypokalemia
CPT/HCPCS: 81001; 82977; 83036; 87086; 87150; 87186

== ENCOUNTER 2024-06-21 21:39 | Outpatient (REF) | payer OTHER, SELFPAY ==
--- OUTSIDE RECORDS SUMMARY | 2024-06-21 21:44 | XMS_ITS | CCD ---
Author Organization [facility] Care Team Providers Care Behavioral Instructor Name Role Phone YANELIS, ESEQUIEL C Unavailable [...] Unavailable THOMAS DELGADILLO Unavailable Unavailmaddie Mills MD, [facility] Primary Care Provider ROSS, DARA Primary [...] Unavailable SAMSA ., OLIVER Attending Unavailable AICHHOLZ, AUTOMOBILE LIGHTS ASSEMBLER VERONIQUE Primary Care Unavailable DR HANNAH MOORE Consulting Unavailable SAMSA ., OLIVER Consulting Unavailable AICHHOLZ, AUTOMOBILE LIGHTS ASSEMBLER VERONIQUE Admitting Unavailable AICHHOLZ, AUTOMOBILE LIGHTS ASSEMBLER VERONIQUE Attending Unavailable AICHHOLZ, AUTOMOBILE LIGHTS ASSEMBLER VERONIQUE Primary Care Unavailable AICHHOLZ, AUTOMOBILE LIGHTS ASSEMBLER VERONIQUE Consulting Unavailable AICHHOLZ, AUTOMOBILE LIGHTS ASSEMBLER VERONIQUE Admitting Unavailable AICHHOLZ, AUTOMOBILE LIGHTS ASSEMBLER VERONIQUE Attending Unavailable AICHHOLZ, AUTOMOBILE LIGHTS ASSEMBLER VERONIQUE Primary Care Unavailable AICHHOLZ, AUTOMOBILE LIGHTS ASSEMBLER VERONIQUE Consulting Unavailable AICHHOLZ, AUTOMOBILE LIGHTS ASSEMBLER VERONIQUE Primary Care Unavailable MARIANO SAAB Admitting Unavailable MARIANO SAAB Attending Unavailable SHILA CALLOWAY Consulting Unavailabl e PROVIDER, UNKNOWN Admitting Unavailable LILLIAN QUICK Attending Unavailable AICHHOLZ, VERONIQUE Attending Unavailable Allergies Allergy Classification Reported Allergen(s) Allergy Type Date of Onset Reaction(s) Facility Sulfonamides (antibiotic) (6 sources) Sulfonamides (Antibiotic) Drug Allergy 1 [facility] (3 sources) Sulfonamides (Antibiotic); Translations: [SULFA (SULFONAMIDE ANTIBIOTICS)] Propensity to adverse reactions to drug (disorder) 7 [facility] Repository (13 sources) Sulfonamides (Antibiotic) Propensity to adverse reactions to drug 1 [facility] (4 sources) Sulfamethoxazole; Translations: [sulfa] Drug Allergy Itching [place] [address] DO Work Phone: (1 source) Sulfonamides (Antibiotic) Drug allergy (disorder) 3 [facility] Repository Medications Current Medications Medication Drug [...] Drug Class(es) Dates Sig (Normalized) Sig (Original) [id number] 200 actuat albuterol 0.09 mg/actuat metered dose [...] [Coronary atherosclerosis of unspecified type of vessel, rincon or graft] Chronic Diabetes mellitus without complication [...] 03-17-2018 Chronic Other aftercare (1 source) Other group home (current) drug therapy; Translations: [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 You may also call 1-830-CCMN-NOW for free resources and assistance.; Status:Complete - Retrospective Authorization; Done: [id number] Tobacco Use Screening; Status:Complete; Done: [id number] Patient Instructions Please bring all medicines, vitamins, [...] She has a history of previous inferior SC in February 2021 (late presenting SC) with PCI of the RCA at that [...] DAILY Current (more content not included)... Normal Negotiant Tobacco Screening.on 023 Adult depression screening assessment No -[facility] [place] [address] DO Work Phone: Fall risk assessment c) Not medically indicated MP-No r[facility] 250 DO Work Phone: Tobacco use status CPHS a) Yes -[facility] [employer] [place] [address] DO Work Phone: Tobacco Screening. Yes [facility] [facility] DO Work Phone: [...] HANNAH MOORE Date: 2022-09-01 10:[address] [facility] CBC AUTO DIFFon 06-17-2022 BASO # 0.1 103/ul Normal 0.0-0.[address] [facility] Comment on above: Performed By: #### C BC #### [facility] [address] [place] [address] Dr. Oneal Vieyra Basophils/100 WBC (Bld) 0.5 % Normal 0.2-2.0 [facility] Comment on above: Performed By: #### C BC #### [facility] [address] [address] [address] Oneal Vieyra EO # 0.1 103/ul Normal 0.0-0.[address] [facility] Comment on above: Performed By: #### C BC #### [facility] [address] [place] [address] Dr. Oneal Vieyra Eosinophils/100 WBC (Bld) 1.3 % Normal 0.9-7.[address] [facility] Comment on above: Performed By: #### C BC #### [facility] [address] [place] [address] Dr. Oneal Vieyra Erythrocyte distribution width (RBC) [Ratio] 13.4 % Normal 11.0-15.[address] [facility] Comment on above: Performed By: #### C BC #### [facility] [address] [place] [address] Dr. Oneal Vieyra Hematocrit (Bld) [Volume fraction] 51.8 % Critically high 36.0-48.0 [facility] Comment on above: Performed By: #### C BC #### [facility] [address] [place] [address] Dr. Oneal Vieyra Hemoglobin (Bld) [Mass/Vol] 16.1 g/dL Critically high 12.0-16.0 [facility] Comment on above: Performed By: #### C BC #### [facility] [address] [place] [address] Dr. Oneal Vieyra IG # 0.03 10e3/ul Normal 0.00-0.03 [facility] Comment on above: Performed By: #### C BC #### [facility] [address] [place] [address] Dr. Onael Vieyra IG % 0.3 % Normal 0.0-0.5 [facility] Comment on above: Performed By: #### C BC #### [facility] [address] [place] [address] Dr. Oneal Vieyra LYMPH # 3.7 103/ul Normal 1.2-3.[address] [facility] Comment on above: Performed By: #### C BC #### [facility] [address] [place] [address] Dr. Oneal Vieyra Lymphocytes/100 WBC (Bld) 34.5 % Normal 20.5-60.0 [facility] Comment on above: Performed By: #### C BC #### [facility] [address] [place] [address] Dr. Oneal Vieyra MANUAL DIFF REQ NO Normal [facility] Comment on above: Performed By: #### C BC #### [facility] [address] [place] [address] Dr. Oneal Vieyra MCH (RBC) [Entitic mass] 29.7 pg Normal 26.7-34.0 [facility] Comment on above: Performed By: #### C BC #### [facility] [address] [place] [address] Dr. Oneal Vieyra MCHC (RBC) [Mass/Vol] 31.1 g/dL Normal 29.9-35.[address] [facility] Comment on above: Performed By: #### C BC #### [facility] [address] [place] [address] Dr. Oneal Vieyra MCV (RBC) [Entitic vol] 95.6 fL Normal 81.0-99.[address] [facility] Comment on above: Performed By: #### C BC #### [facility] [address] [place] [address] Dr. Oneal Vieyra MONO # 0.8 103/ul Normal 0.3-0.[address] [facility] Comment on above: Performed By: #### C BC #### [facility] [address] [place] [address] Dr. Oneal Vieyra Monocytes/100 WBC (Bld) 7.6 % Normal 1.7-12.[address] [facility] Comment on above: Performed By: #### C BC #### [facility] [address] [place] [address] Dr. Oneal Vieyra NEUT # 5.9 103/ul Normal 1.4-6.[address] [facility] Comment on above: Performed By: #### C BC #### [facility] [address] [place] [address] Dr. Oneal Vieyra Neutrophils/100 WBC (Bld) 55.8 % Normal 43.0-75.[address] [facility] Comment on above: Performed By: #### C BC #### [facility] [address] [place] [address] Dr. Oneal Vieyra Platelet mean volume (Bld) [Entitic vol] 12.1 fL Normal 9.5-13.[address] [facility] Comment on above: Performed By: #### C BC #### [facility] [address] [place] [address] Dr. Oneal Vieyra PLT 224 103/ul Normal 150-[address] [facility] Comment on above: Performed By: #### C BC #### [facility] [address] [place] [address] Dr. Oneal Vieyra RBC 5.42 106/ul Critically high 4.20-5.40 [facility] Comment on above: Performed By: #### C BC #### [facility] [address] [place] [address] Dr. Oneal Vieyra WBC 10.6 103/ul Normal 4.0-11.0 [facility] Comment on above: Performed By: #### C BC #### [facility] [address] [place] [address] Dr. Oneal Vieyra FREE T4on 06-17-2022 Free T4 [Mass/Vol] 0.98 ng/dL Normal 0.76-1.46 [facility] Comment on above: Performed By: #### F T4 #### [facility] [address] [place] [address] Dr. Oneal Vieyra GLYCOHEMOGLOBIN A1Con 2021 ADA RECOMMENDATION SEE BELOW Normal [facility] Comment on above: Result Comment: ADA RECOMMENDED LIMIT 4.0 - 6.0 ADA THERAPEUTIC TARGET < 7.0 ACTION SUGGESTED > 7.0 Performed By: #### A 1C #### [facility] [address] [place] [address] Dr. Oneal Vieyra Glucose [Mass/Vol] 146 mg/dL Normal [facility] Comment on above: Performed By: #### A 1C #### [facility] [address] [place] [address] Dr. Oneal Vieyra HbA1c (Bld) [Mass fraction] 6.7 % Critically high 4.5-6.2 [facility] Comment on above: Performed By: #### A 1C #### [facility] [address] [place] [address] Dr. Oneal Vieyra LIPID PROFILEon 06-17-2022 CHOL-HDL RATIO NORM SEE BELOW Normal [facility] Comment on above: Result Comment: 3.3 - 4.4 LOW RISK 4.4 - 7.1 AVERAGE RISK 7.1 - 11.0 MODERATE RISK >11.0 HIGH RISK Performed By: #### L IPID, TSH, CMP #### [facility] [address] [place] [address] Dr. Oneal Vieyra Cholesterol [Mass/Vol] 161 mg/dL Normal <=200 [facility] Comment on above: Performed By: #### L IPID, TSH, CMP #### [facility] [address] [place] [address] Dr. Oneal Vieyra Cholesterol in HDL [Mass/Vol] 33 mg/dL Critically low 40-[address] [facility] Comment on above: Performed By: #### L IPID, TSH, CMP #### [facility] [address] [address] [address] Oneal Vieyra Cholesterol in LDL [Mass/Vol] 63.8 mg/dL Normal [facility] Comment on above: Performed By: #### L IPID, TSH, CMP #### [facility] [address] [address] [address] Oneal Vieyra Cholesterol.total/ Cholesterol in HDL [Mass ratio] 4.9 {ratio} Normal [facility] Comment on above: Performed By: #### L IPID, TSH, CMP #### [facility] [address] [address] [address] Oneal Vieyra HDL NORMAL > or = 60 mg/dl - LO W CARDIOVASCULAR RISK <40 mg/dl - HIGH CARDIOVASCULAR RISK Normal [facility] Comment on above: Performed By: #### L IPID, TSH, CMP #### [facility] [address] [address] [address] Oneal Vieyra LDL CALC NORMAL SEE BELOW Normal [facility] Comment on above: Result Comment: <100 mg/dl OPTIMAL 100 - 129 mg/dl NEAR OR ABOVE OPTIMAL 130 - 159 mg/dl BORDERLINE HIGH 160 - 189 mg/dl HIGH >190 mg/dl VERY HIGH Performed By: #### L IPID, TSH, CMP #### [facility] [address] [address] [address] Oneal Vieyra Triglyceride [Mass/Vol] 321 mg/dL Critically high <=[address] [facility] Comment on above: Performed By: #### L IPID, TSH, CMP #### [facility] [address] [address] [address] Oneal Vieyra VLDL CALC 64.2 mg/dL Normal [facility] Comment on above: Performed By: #### L IPID, TSH, CMP #### [facility] [address] [address] [address] Oneal Vieyra PROF 14(COMP METB)on 09-21-2 022 Albumin [Mass/Vol] 3.7 g/dL Normal 3.4-5.[address] [facility] Comment on above: Performed By: #### L IPID, TSH, CMP #### [facility] [address] [address] [address] Oneal Vieyra Albumin/Globulin [Mass ratio] 0.9 {ratio} Normal [facility] Comment on above: Performed By: #### L IPID, TSH, CMP #### [facility] [address] [address] [address] Oneal Vieyra ALP [Catalytic activity/Vol] 171 U/L Critically high 46-116 [facility] Comment on above: Performed By: #### L IPID, TSH, CMP #### [facility] [address] [place] [address] Dr. Oneal Vieyra ALT [Catalytic activity/Vol] 19 U/L Normal 14-59 [facility] Comment on above: Performed By: #### L IPID, TSH, CMP #### [facility] [address] [place] [address] Dr. Oneal Vieyra Anion gap [Moles/Vol] 5.6 mmol/L Normal [facility] Comment on above: Performed By: #### L IPID, TSH, CMP #### [facility] [address] [place] [address] Dr. Oneal Vieyra AST [Catalytic activity/Vol] 13 U/L Critically low 15-37 [facility] Comment on above: Performed By: #### L IPID, TSH, CMP #### [facility] [address] [place] [address] Dr. Oneal Vieyra Bilirubin [Mass/Vol] 0.5 mg/dL Normal 0.2-1.0 [facility] Comment on above: Performed By: #### L IPID, TSH, CMP #### [facility] [address] [place] [address] Dr. Oneal Vieyra Calcium [Mass/Vol] 9.1 mg/dL Normal 8.5-10.[address] [facility] Comment on above: Performed By: #### L IPID, TSH, CMP #### [facility] [address] [address] [address] Oneal Vieyra Chloride [Moles/Vol] 105 mmol/L Normal 98-[address] [facility] Comment on above: Performed By: #### L IPID, TSH, CMP #### [facility] [address] [address] [address] Oneal Vieyra CO2 [Moles/Vol] 35.3 mmol/L Critically high 21.0-32.0 [facility] Comment on above: Performed By: #### L IPID, TSH, CMP #### [facility] [address] [address] [address] Oneal Vieyra Creatinine [Mass/Vol] 0.88 mg/dL Normal 0.55-1.02 [facility] Comment on above: Performed By: #### L IPID, TSH, CMP #### [facility] [address] [place] [address] Dr. Oneal Vieyra EGFR-AF CITIZEN OF [place] >60 Normal >=[address] [facility] Comment on above: Performed By: #### L IPID, TSH, CMP #### [facility] [address] [place] [address] Dr. Oneal Vieyra EGFR-NON AF CITIZEN OF [place] >60 Normal >=60 [facility] Comment on above: Performed By: #### L IPID, TSH, CMP #### [facility] [address] [place] [address] Dr. Oneal Vieyra Globulin (S) [Mass/Vol] 4.3 g/dL Normal [facility] Comment on above: Performed By: #### L IPID, TSH, CMP #### [facility] [address] [address] [address] Oneal Vieyra Glucose [Mass/Vol] 93 mg/dL Normal 74-[address] [facility] Comment on above: Performed By: #### L IPID, TSH, CMP #### [facility] [address] [address] [address] Oneal Vieyra Potassium [Moles/Vol] 3.9 mmol/L Normal 3.5-5.1 [facility] Comment on above: Performed By: #### L IPID, TSH, CMP #### [facility] [address] [place] [address] Dr. Oneal Vieyra Protein [Mass/Vol] 8.0 g/dL Normal 6.4-8.2 [facility] Comment on above: Performed By: #### L IPID, TSH, CMP #### [facility] [address] [place] [address] Dr. Oneal Vieyra Sodium [Moles/Vol] 142 mmol/L Normal 136-145 [facility] Comment on above: Performed By: #### L IPID, TSH, CMP #### [facility] [address] [place] [address] Dr. Oneal Vieyra Urea nitrogen [Mass/Vol] 15.0 mg/dL Normal 7.0-18.0 [facility] Comment on above: Performed By: #### L IPID, TSH, CMP #### [facility] [address] [place] [address] Dr. Oneal Vieyra Urea nitrogen/Creatinin e [Mass ratio] 17.0 mg/mg Normal [facility] Comment on above: Performed By: #### L IPID, TSH, CMP #### [facility] [address] [place] [address] Dr. Oneal Vieyra TSHon 06-17-2022 TSH 9.403 uIU/mL Critically high 0.358-3.740 [facility] Comment on above: Performed By: #### L IPID, TSH, CMP #### [facility] [address] [place] [address] Dr. Oneal Vieyra UA RANDOM W/MICROSCOPICon BACTERIA NONE SEEN Normal NONE SEEN [facility] Comment on above: Performed By: #### U AMIC #### [facility] [address] [place] [address] Dr. Oneal Vieyra Bilirubin Ql (U) Negative Normal NEGATIVE [facility] Comment on above: Performed By: #### U AMIC #### [facility] [address] [place] [address] Dr. Oneal Vieyra CAST NONE SEEN Normal NONE SEEN [facility] Comment on above: Performed By: #### U AMIC #### [facility] [address] [address] [address] Oneal Vieyra Clarity (U) CLEAR Normal CLEAR [facility] Comment on above: Performed By: #### U AMIC #### [facility] [address] [address] [address] Oneal Vieyra Color (U) LT. YELLOW Normal YELLOW [facility] Comment on above: Performed By: #### U AMIC #### [facility] [address] [address] [address] Oneal Vieyra Crystals LM Nom (Urine sed) NONE SEEN Normal NONE SEEN [facility] Comment on above: Performed By: #### U AMIC #### [facility] [address] [place] [address] Dr. Oneal Vieyra Epithelial cells LM Ql (Urine sed) FEW Abnormal NONE SEEN /RARE [facility] Comment on above: Performed By: #### U AMIC #### [facility] [address] [place] [address] Dr. Oneal Vieyra Glucose Ql (U) >1000 Abnormal NEGATIVE [facility] Comment on above: Performed By: #### U AMIC #### [facility] [address] [address] [address] nOeal Vieyra Hemoglobin Ql (U) SMALL Abnormal NEGATIVE [facility] Comment on above: Performed By: #### U AMIC #### [facility] [address] [address] [address] Oneal Vieyra Ketones Ql (U) Negative Normal NEGATIVE [facility] Comment on above: Performed By: #### U AMIC #### [facility] [address] [address] [address] Oneal Vieyra LEUKOCYTES Negative Normal NEGATIVE [facility] Comment on above: Performed By: #### U AMIC #### [facility] [address] [place] [address] Dr. Oneal Vieyra MUCOUS NONE SEEN Normal NONE SEEN [facility] Comment on above: Performed By: #### U AMIC #### [facility] [address] [address] [address] Oneal Vieyra Nitrite Ql (U) Negative Normal NEGATIVE [facility] Comment on above: Performed By: #### U AMIC #### [facility] [address] [place] [address] Dr. Oneal Vieyra pH (U) 6.0 [pH] Normal 5-9 [facility] Comment on above: Performed By: #### U AMIC #### [facility] [address] [address] [address] Oneal Vieyra RBC 0-2 Normal 0-2 [facility] Comment on above: Performed By: #### U AMIC #### [facility] [address] [place] [address] Dr. Oneal Vieyra SPEC GRAVITY <=1.005 Abnormal 1.005-<=1.0 25 [facility] Comment on above: Performed By: #### U AMIC #### [facility] [address] [place] [address] Dr. Oneal Vieyra UA PROTEIN Negative Normal NEGATIVE/ TRACE [facility] Comment on above: Performed By: #### U AMIC #### [facility] [address] [place] [address] Dr. Oneal Vieyra Urobilinogen Qn (U) 0.2 {Ashwini'U}/dL Normal 0.2 - 1.0 [facility] Comment on above: Performed By: #### U AMIC #### [facility] [address] [place] [address] Dr. Oneal Vieyra WBC NONE SEEN Normal NONE SEEN [facility] Comment on above: Performed By: #### U AMIC #### [facility] [address] [place] [address] Dr. Oneal Vieyra MICROALBUMIN, RAND URon 02-25 mALB <1.3 Normal <=30.0 [facility] Comment on above: Performed By: #### M ALBR #### [facility] [address] [place] [address] Dr. Oneal Vieyra UA RANDOM W/MICROSCOPICon BACTERIA NONE SEEN Normal NONE SEEN [facility] Comment on above: Performed By: #### U AMIC #### [facility] [address] [address] [address] Oneal Vieyra Bilirubin Ql (U) Negative Normal NEGATIVE [facility] Comment on above: Performed By: #### U AMIC #### [facility] [address] [address] [address] Oneal Vieyra CAST NONE SEEN Normal NONE SEEN [facility] Comment on above: Performed By: #### U AMIC #### [facility] [address] [address] [address] Oneal Vieyra Clarity (U) CLEAR Normal CLEAR [facility] Comment on above: Performed By: #### U AMIC #### [facility] [address] [place] [address] Dr. Oneal Vieyra Color (U) YELLOW Normal YELLOW [facility] Comment on above: Performed By: #### U AMIC #### [facility] [address] [address] [address] Oneal Vieyra Crystals LM Nom (Urine sed) NONE SEEN Normal NONE SEEN [facility] Comment on above: Performed By: #### U AMIC #### [facility] [address] [address] [address] Oneal Vieyra Epithelial cells LM Ql (Urine sed) FEW Abnormal NONE SEEN /RARE [facility] Comment on above: Performed By: #### U AMIC #### [facility] [address] [address] [address] Oneal Vieyra Glucose Ql (U) >1000 Abnormal NEGATIVE [facility] Comment on above: Performed By: #### U AMIC #### [facility] [address] [address] [address] Oneal Vieyra Hemoglobin Ql (U) SMALL Abnormal NEGATIVE [facility] Comment on above: Performed By: #### U AMIC #### [facility] [address] [address] [address] Oneal Vieyra Ketones Ql (U) Negative Normal NEGATIVE [facility] Comment on above: Performed By: #### U AMIC #### [facility] [address] [address] [address] Oneal Vieyra LEUKOCYTES Negative Normal NEGATIVE [facility] Comment on above: Performed By: #### U AMIC #### [facility] [address] [address] [address] Oneal Vieyra MUCOUS NONE SEEN Normal NONE SEEN [facility] Comment on above: Performed By: #### U AMIC #### [facility] [address] [address] [address] Oneal Vieyra Nitrite Ql (U) Negative Normal NEGATIVE [facility] Comment on above: Performed By: #### U AMIC #### [facility] [address] [address] [address] Oneal Vieyra pH (U) 5.5 [pH] Normal 5-9 [facility] Comment on above: Performed By: #### U AMIC #### [facility] [address] [place] [address] Dr. Oneal Vieyra RBC 0-2 Normal 0-2 [facility] Comment on above: Performed By: #### U AMIC #### [facility] [address] [place] [address] Dr. Oneal Vieyra SPEC GRAVITY 1.020 Normal 1.005-<=1.0 25 [facility] Comment on above: Performed By: #### U AMIC #### [facility] [address] [place] [address] Dr. Oneal Vieyra UA PROTEIN Negative Normal NEGATIVE/ TRACE [facility] Comment on above: Performed By: #### U AMIC #### [facility] [address] [place] [address] Dr. Oneal Vieyra Urobilinogen Qn (U) 0.2 {Ashwini'U}/dL Normal 0.2 - 1.0 [facility] [facility] Comment on above: Performed By: #### U AMIC #### [facility] [address] [place] [address] Dr. Oneal Vieyra WBC NONE SEEN Normal NONE SEEN [facility] Comment on above: Performed By: #### U AMIC #### [facility] [address], [place] [address] Dr. Oneal Vieyra Office Visit (Cardiology)on 10-16-2021 [...] for follow-up. She had inferior ST elevation SC with primary revascularization of the RCA in [...] 16Oct2021 11:41AM Heart Rate65, L Brachial Artery Tavqbkri209, LUE, Sitting Tpglhjnno55, LUE, Sitting Height5 ft 1 in Vckudt975 lb BMI Jhwaejkfnt03.04 kg/m2 BSA Calculated1.71 Tobacco Usea) Yes Patient encouraged to stop using tobacco productsYes Fall Screeningc) Not medically indicated Physical Exam Constitutional: alert and in no acute distress. Neck: neck is supple, symmetric, trachea midline, no masses and no thyromegaly . (more content not included)... Normal [employer] Tobacco Screening.on 022 Fall risk assessment c) Not medically indicated MP-[place] [facility] [place] [facility] [place] [address] DO Work Phone: Tobacco use status CPHS a) Yes -[facility] [place] Work Phone: Tobacco Screening. Yes MP-[facility] [address] [place] Work Phone: Basic Metabolic Panelon 02-26 Calcium [Mass/Vol] 8.6 mg/dL Normal 8.2-10.2 [facility] Comment on above: Performed By: #### C K, BMP, SCAN CBC, PTT, BNP, PT, TROP #### [facility] [address] [place] [id number] [place] Chloride [Moles/Vol] 105 mmol/L Normal 95-[address] [facility] Comment on above: Performed By: #### C K, BMP, SCAN CBC, PTT, BNP, PT, TROP #### [facility] [address] [place] [address] [place] CO2 [Moles/Vol] 21.2 mmol/L Low 22.0-30.0 [facility] Comment on above: Performed By: #### C K, BMP, SCAN CBC, PTT, BNP, PT, TROP #### [facility] [address] [place] [id number] [place] Creatinine [Mass/Vol] 1.26 mg/dL High 0.44-1.[address] [facility] Comment on above: Performed By: #### C K, BMP, SCAN CBC, PTT, BNP, PT, TROP #### [facility] [address] Creatinine Clr Calc Pharmacy 43.69 [facility] Comment on above: Result Comment: PERF ORMED BY: [place] [address] PATHOLOGIST WELL SERVICES OPERATOR GIA SHAH M.D. Performed By: #### C K, BMP, SCAN CBC, PTT, BNP, PT, TROP #### [facility] [address] Estimated GFR ( [place] 53 [facility] Comment on above: Result Comment: GFR estimated reference range: According to KDOQI guidelines, <60 ml/min/1.73m2 is sufficient to diagnose a patient with chronic kidney disease. Performed By: #### C K, BMP, SCAN CBC, PTT, BNP, PT, TROP #### [facility] [address] Estimated GFR (Non- Am 44 [facility] Comment on above: Performed By: #### C K, BMP, SCAN CBC, PTT, BNP, PT, TROP #### [address] Glucose [Mass/Vol] 116 mg/dL High 70-100 [facility] Comment on above: Result Comment: [place] Glucose Reference Range is dependent on time and content of last meal. Glucose of more than 200 mg/dL in a nonstressed, ambulatory subject supports the diagnosis of Diabetes Mellitus. ADA recommended reference range Performed By: #### C K, BMP, SCAN CBC, PTT, BNP, PT, TROP #### [address] Potassium [Moles/Vol] 3.3 mmol/L Low 3.5-5.[address] [facility] Comment on above: Performed By: #### C K, BMP, SCAN CBC, PTT, BNP, PT, TROP #### [facility] [address] Sodium [Moles/Vol] 139 mmol/L Normal 136-146 [facility] Comment on above: Performed By: #### C K, BMP, SCAN CBC, PTT, BNP, PT, TROP #### [facility] [address] Urea nitrogen [Mass/Vol] 20 mg/dL Normal 9-[address] [facility] Comment on above: Performed By: #### C K, BMP, SCAN CBC, PTT, BNP, PT, TROP #### [facility] [address] Creatine Kinaseon 03-21-2021 CK [Catalytic activity/Vol] 87 U/L Normal 22-[address] [facility] Comment on above: Performed By: #### C K, BMP, SCAN CBC, PTT, BNP, PT, TROP #### [facility] [address] Creatinine Kinase MBon 03-21 CK.MB [Mass/Vol] 1.6 ng/mL Normal 0.6-6.3 [facility] Comment on above: Performed By: #### C K, BMP, SCAN CBC, PTT, BNP, PT, TROP #### [facility] [address] CKMB Relative Index 1.8 % Normal 0.00-2.[address] [facility] Comment on above: Performed By: #### C K, BMP, SCAN CBC, PTT, BNP, PT, TROP #### [place] [address] [place] ECG 12 lead ECGon 03-21-2021 ECG 12 lead ECG [facility] [place] [address] [place] [address] Electrocardiograph Report Signed Patient: Fausto Corrigan MR#: [id number] 0 : 1960 Acct:[id number] Age/Sex: 60 / F ADM Date: 03/19/21 Loc: Room: [address] [place] [address] Type: DIS IN Attending Dr: Kal Kellogg [...] compared with ECG of 20-MAR-2021 14:36, (Unconfirmed) SC interval has decreased Confirmed by CHRISTA BAEZA DO ([id number]) on 03/21/2021 4:10:41 PM Referred By: Electronically Signed By:CHRISTA BAEZA DO Transcribed By: MUS Dictated By: Christa Baeza DO 03/21/21 0802 Signed By: 03/21/21 [address] [facility] Scan and CBCon 03-21-2021 Basophils (Bld) [#/Vol] 0.1 10*3/uL Normal 0.0-0.[address] [facility] Comment on above: Performed By: #### C K, BMP, SCAN CBC, PTT, BNP, PT, TROP #### [facility] [address] [place] [address] Basophils/100 WBC (Bld) 0.5 % Normal . [facility] Comment on above: Performed By: #### C K, BMP, SCAN CBC, PTT, BNP, PT, TROP #### [facility] [address] [place] [address] Eosinophils (Bld) [#/Vol] 0.3 10*3/uL Normal 0.0-0.[address] [facility] Comment on above: Performed By: #### C K, BMP, SCAN CBC, PTT, BNP, PT, TROP #### [facility] [address] [place] [address] Eosinophils/100 WBC (Bld) 2.6 % Normal . [facility] Comment on above: Performed By: #### C K, BMP, SCAN CBC, PTT, BNP, PT, TROP #### [facility] [address] [place] [address] [place] Erythrocyte distribution width (RBC) [Ratio] 13.3 % Normal 11.9-15.[address] [facility] Comment on above: Performed By: #### C K, BMP, SCAN CBC, PTT, BNP, PT, TROP #### [address] Hematocrit (Bld) [Volume fraction] 39.1 % Normal 34.0-46.[address] [facility] Comment on above: Performed By: #### C K, BMP, SCAN CBC, PTT, BNP, PT, TROP #### [address] Hemoglobin (Bld) [Mass/Vol] 13.2 g/dL Normal 11.8-15.[address] [facility] Comment on above: Performed By: #### C K, BMP, SCAN CBC, PTT, BNP, PT, TROP #### [address] Lymphocytes (Bld) [#/Vol] 4.6 10*3/uL Normal 1.00-4.[address] [facility] Comment on above: Performed By: #### C K, BMP, SCAN CBC, PTT, BNP, PT, TROP #### [address] Lymphocytes/100 WBC (Bld) 37.3 % Normal . [facility] Comment on above: Performed By: #### C K, BMP, SCAN CBC, PTT, BNP, PT, TROP #### [address] MCH (RBC) [Entitic mass] 31.1 pg Normal 24.7-34.[address] [facility] Comment on above: Performed By: #### C K, BMP, SCAN CBC, PTT, BNP, PT, TROP #### [address] MCV (RBC) [Entitic vol] 92.2 fL Normal 80-[address] [facility] Comment on above: Performed By: #### C K, BMP, SCAN CBC, PTT, BNP, PT, TROP #### [address] [place] [address] [place] Mean Corpuscular HGB Conc 33.8 g/dL Normal 32.0-35.[address] [facility] Comment on above: Performed By: #### C K, BMP, SCAN CBC, PTT, BNP, PT, TROP #### [address] Monocytes (Bld) [#/Vol] 1.0 10*3/uL High 0.0-0.[address] [facility] Comment on above: Performed By: #### C K, BMP, SCAN CBC, PTT, BNP, PT, TROP #### [address] Monocytes/100 WBC (Bld) 8.0 % Normal . [facility] Comment on above: Performed By: #### C K, BMP, SCAN CBC, PTT, BNP, PT, TROP #### [address] Neutrophils (Bld) [#/Vol] 6.4 10*3/uL Normal 1.8-7.[address] [facility] Comment on above: Performed By: #### C K, BMP, SCAN CBC, PTT, BNP, PT, TROP #### [address] Neutrophils/100 WBC (Bld) 51.6 % Normal . [facility] Comment on above: Performed By: #### C K, BMP, SCAN CBC, PTT, BNP, PT, TROP #### [address] Nucleated RBC/100 WBC (Bld) [Ratio] 0.2 % Normal 0-0.[address] [facility] Comment on above: Performed By: #### C K, BMP, SCAN CBC, PTT, BNP, PT, TROP #### [address] Platelet Estimate Normal Normal Normal [facility] Comment on above: Performed By: #### C K, BMP, SCAN CBC, PTT, BNP, PT, TROP #### [place] [id number] [place] Platelet mean volume (Bld) [Entitic vol] 9.3 fL Normal 6.3-10.[address] [facility] Comment on above: Performed By: #### C K, BMP, SCAN CBC, PTT, BNP, PT, TROP #### [address] Platelet Morphology Normal Normal Normal [facility] Comment on above: Result Comment: PERF ORMED BY: [place] [address] PATHOLOGIST WELL SERVICES OPERATOR GIA SHAH M.D. Performed By: #### C K, BMP, SCAN CBC, PTT, BNP, PT, TROP #### [address] Platelets (Bld) [#/Vol] 250 10*3/uL Normal 150-[address] [facility] Comment on above: Performed By: #### C K, BMP, SCAN CBC, PTT, BNP, PT, TROP #### [address] RBC (Bld) [#/Vol] 4.24 10*6/uL Normal 3.60-5.00 [facility] Comment on above: Performed By: #### C K, BMP, SCAN CBC, PTT, BNP, PT, TROP #### [address] RBC morphology finding Nom (Bld) Normal Normal [facility] Comment on above: Performed By: #### C K, BMP, SCAN CBC, PTT, BNP, PT, TROP #### [address] WBC (Bld) [#/Vol] 12.3 10*3/uL High 4.5-11.0 [facility] Comment on above: Performed By: #### C K, BMP, SCAN CBC, PTT, BNP, PT, TROP #### [address] Troponin I(TnI)on 03-21-2021 Troponin I.cardiac [Mass/Vol] 3.93 ng/mL Off scale high 0-0.[address] [facility] Comment on above: Result Comment: [place] Cut off value > or equal to 0.03 ng/mL in conjunction with clinical conditions of myocardial infarction. (www.escardio.org/guidelines) PERFORMED BY: [place] [address] PATHOLOGIST WELL SERVICES OPERATOR GIA SHAH M.D. Performed By: #### C K, BMP, SCAN CBC, PTT, BNP, PT, TROP #### [address] Troponin I.cardiac [Mass/Vol] 3.98 ng/mL Off scale high 0-0.[address] [facility] Comment on above: Result Comment: [place] Cut off value > or equal to 0.03 ng/mL in conjunction with clinical conditions of myocardial infarction. (www.escardio.org/guidelines) PERFORMED BY: [place] [address] PATHOLOGIST WELL SERVICES OPERATOR GIA SHAH M.D. Performed By: #### C K, BMP, SCAN CBC, PTT, BNP, PT, TROP #### [address] Basic Metabolic Panelon 06-2 Calcium [Mass/Vol] 9.1 mg/dL Normal 8.2-10.2 [facility] Comment on above: Performed By: #### C K, BMP, SCAN CBC, PTT, BNP, PT, TROP #### [address] Chloride [Moles/Vol] 102 mmol/L Normal 95-[address] [facility] Comment on above: Performed By: #### C K, BMP, SCAN CBC, PTT, BNP, PT, TROP #### [address] CO2 [Moles/Vol] 23.3 mmol/L Normal 22.0-30.0 [facility] Comment on above: Performed By: #### C K, BMP, SCAN CBC, PTT, BNP, PT, TROP #### [facility] [address] Creatinine [Mass/Vol] 1.15 mg/dL High 0.44-1.[address] [facility] Comment on above: Performed By: #### C K, BMP, SCAN CBC, PTT, BNP, PT, TROP #### [facility] [address] Creatinine Clr Calc Pharmacy 47.09 [facility] Comment on above: Performed By: #### C K, BMP, SCAN CBC, PTT, BNP, PT, TROP #### [facility] [address] Estimated GFR ( [place] 59 [facility] Comment on above: Result Comment: GFR estimated reference range: According to KDOQI guidelines, <60 ml/min/1.73m2 is sufficient to diagnose a patient with chronic kidney disease. Performed By: #### C K, BMP, SCAN CBC, PTT, BNP, PT, TROP #### [facility] [address] Estimated GFR (Non- Am 48 [facility] Comment on above: Performed By: #### C K, BMP, SCAN CBC, PTT, BNP, PT, TROP #### [address] Glucose [Mass/Vol] 161 mg/dL High 70-100 [facility] Comment on above: Result Comment: [place] Glucose Reference Range is dependent on time and content of last meal. Glucose of more than 200 mg/dL in a nonstressed, ambulatory subject supports the diagnosis of Diabetes Mellitus. ADA recommended reference range Performed By: #### C K, BMP, SCAN CBC, PTT, BNP, PT, TROP #### [facility] [address] Potassium [Moles/Vol] 3.1 mmol/L Low 3.5-5.[address] [facility] Comment on above: Performed By: #### C K, BMP, SCAN CBC, PTT, BNP, PT, TROP #### [facility] [address] [place] [address] [place] Sodium [Moles/Vol] 136 mmol/L Normal 136-146 [facility] Comment on above: Performed By: #### C K, BMP, SCAN CBC, PTT, BNP, PT, TROP #### [facility] [address] Urea nitrogen [Mass/Vol] 26 mg/dL High 9-[address] [facility] Comment on above: Performed By: #### C K, BMP, SCAN CBC, PTT, BNP, PT, TROP #### [address] Coagulation Profileon 2020 aPTT Coag (Bld) [Time] 37.6 s High 25.1-36.[address] [facility] Comment on above: Result Comment: PERF ORMED BY: [place] [address] PATHOLOGIST WELL SERVICES OPERATOR GIA SHAH M.D. Performed By: #### C K, BMP, SCAN CBC, PTT, BNP, PT, TROP #### [address] INR Coag (PPP) [Relative time] 1.1 {INR} Normal [facility] Comment on above: Result Comment: INR Therapeutic [...] SCAN CBC, PTT, BNP, PT, TROP #### [address] PT Coag (PPP) [Time] 12.2 s Normal 9.0-12.[address] [facility] Comment on above: Performed By: #### C K, BMP, SCAN CBC, PTT, BNP, PT, TROP #### [address] Creatine Kinaseon 03-20-2021 CK [Catalytic activity/Vol] 91 U/L Normal -[address] [facility] Comment on above: Order Comment: NOTIF IED,KAH,[id number] Performed By: #### C K, BMP, SCAN CBC, PTT, BNP, PT, TROP #### [address] CK [Catalytic activity/Vol] 108 U/L Normal 22-[address] [facility] Comment on above: Performed By: #### C K, BMP, SCAN CBC, PTT, BNP, PT, TROP #### [address] CK [Catalytic activity/Vol] 101 U/L Normal 22-[address] [facility] Comment on above: Performed By: #### C K, BMP, SCAN CBC, PTT, BNP, PT, TROP #### [place] [address] [place] Creatinine Kinase MBon 03-20 CK.MB [Mass/Vol] 1.9 ng/mL Normal 0.6-6.3 [facility] Comment on above: Order Comment: NOTIF IED,,1455 Performed By: #### C K, BMP, SCAN CBC, PTT, BNP, PT, TROP #### [place] [address] [place] CKMB Relative Index 2.0 % Normal 0.00-2.[address] [facility] Comment on above: Order Comment: NOTIF IED,KAH,1455 Performed By: #### C K, BMP, SCAN CBC, PTT, BNP, PT, TROP #### [place] [address] [place] CK.MB [Mass/Vol] 2.5 ng/mL Normal 0.6-6.3 [facility] Comment on above: Performed By: #### C K, BMP, SCAN CBC, PTT, BNP, PT, TROP #### [place] [address] [place] CKMB Relative Index 2.3 % Normal 0.00-2.[address] [facility] Comment on above: Performed By: #### C K, BMP, SCAN CBC, PTT, BNP, PT, TROP #### [facility] [address] CK.MB [Mass/Vol] 3.1 ng/mL Normal 0.6-6.3 [facility] Comment on above: Performed By: #### C K, BMP, SCAN CBC, PTT, BNP, PT, TROP #### [facility] [address] CKMB Relative Index 3.0 % High 0.00-2.[address] [facility] Comment on above: Performed By: #### C K, BMP, SCAN CBC, PTT, BNP, PT, TROP #### [facility] [address] ECG 12 lead ECGon 03-20-2021 ECG 12 lead ECG [facility] [place] [address] [place] [address] Electrocardiograph Report Signed Patient: Fausto Corrigan MR#: [id number] 0 : 1960 Acct:[id number] Age/Sex: 60 / F ADM Date: 03/19/21 Loc: Room: [address] [place] [address] Type: DIS IN Attending Dr: Kal Kellogg [...] 03/20/21 1436 Signed By: 03/22/21 [address] [facility] Magnesiumon 03-20-2021 Magnesium [Mass/Vol] 2.0 mg/dL Normal 1.6-2.[address] [facility] Comment on above: Result Comment: PERF ORMED BY: [place] [address] PATHOLOGIST WELL SERVICES OPERATOR GIA SHAH M.D. Performed By: #### C K, BMP, SCAN CBC, PTT, BNP, PT, TROP #### [address] Partial Thromboplastin Timeo n 03-20-2021 aPTT Coag (Bld) [Time] 44.7 s High 25.1-36.[address] [facility] Comment on above: Order Comment: List the anticoagulant: HEPARIN, UNFRACTIONATED Result Comment: PERF ORMED BY: [place] [address] PATHOLOGIST WE[employer] SERVICES OPERATOR GIA SHAH M.D. Performed By: #### C K, BMP, SCAN CBC, PTT, BNP, PT, TROP #### [address] Scan and CBCon 03-20-2021 Basophils (Bld) [#/Vol] 0.1 10*3/uL Normal 0.0-0.[address] [facility] Comment on above: Performed By: #### C K, BMP, SCAN CBC, PTT, BNP, PT, TROP #### [address] Basophils/100 WBC (Bld) 0.6 % Normal . [facility] Comment on above: Performed By: #### C K, BMP, SCAN CBC, PTT, BNP, PT, TROP #### [place] [address] [place] Eosinophils (Bld) [#/Vol] 0.3 10*3/uL Normal 0.0-0.[address] [facility] Comment on above: Performed By: #### C K, BMP, SCAN CBC, PTT, BNP, PT, TROP #### [place] [address] [place] Eosinophils/100 WBC (Bld) 1.8 % Normal . [facility] Comment on above: Performed By: #### C K, BMP, SCAN CBC, PTT, BNP, PT, TROP #### [address] Erythrocyte distribution width (RBC) [Ratio] 13.2 % Normal 11.9-15.[address] [facility] Comment on above: Performed By: #### C K, BMP, SCAN CBC, PTT, BNP, PT, TROP #### [address] Hematocrit (Bld) [Volume fraction] 42.5 % Normal 34.0-46.[address] [facility] Comment on above: Performed By: #### C K, BMP, SCAN CBC, PTT, BNP, PT, TROP #### [address] Hemoglobin (Bld) [Mass/Vol] 14.5 g/dL Normal 11.8-15.[address] [facility] Comment on above: Performed By: #### C K, BMP, SCAN CBC, PTT, BNP, PT, TROP #### [address] Lymphocytes (Bld) [#/Vol] 5.2 10*3/uL High 1.00-4.[address] [facility] Comment on above: Performed By: #### C K, BMP, SCAN CBC, PTT, BNP, PT, TROP #### [address] Lymphocytes/100 WBC (Bld) 31.5 % Normal . [facility] Comment on above: Performed By: #### C K, BMP, SCAN CBC, PTT, BNP, PT, TROP #### [address] MCH (RBC) [Entitic mass] 31.1 pg Normal 24.7-34.[address] [facility] Comment on above: Performed By: #### C K, BMP, SCAN CBC, PTT, BNP, PT, TROP #### [address] MCV (RBC) [Entitic vol] 90.8 fL Normal 80-[address] [facility] Comment on above: Performed By: #### C K, BMP, SCAN CBC, PTT, BNP, PT, TROP #### [address] Mean Corpuscular HGB Conc 34.2 g/dL Normal 32.0-35.[address] [facility] Comment on above: Performed By: #### C K, BMP, SCAN CBC, PTT, BNP, PT, TROP #### [address] Monocytes (Bld) [#/Vol] 1.1 10*3/uL High 0.0-0.[address] [facility] Comment on above: Performed By: #### C K, BMP, SCAN CBC, PTT, BNP, PT, TROP #### [address] Monocytes/100 WBC (Bld) 6.7 % Normal . [facility] Comment on above: Performed By: #### C K, BMP, SCAN CBC, PTT, BNP, PT, TROP #### [address] Neutrophils (Bld) [#/Vol] 9.8 10*3/uL High 1.8-7.[address] [facility] Comment on above: Performed By: #### C K, BMP, SCAN CBC, PTT, BNP, PT, TROP #### [address] Neutrophils/100 WBC (Bld) 59.4 % Normal . [facility] Comment on above: Performed By: #### C K, BMP, SCAN CBC, PTT, BNP, PT, TROP #### [place] [address] [place] Nucleated RBC/100 WBC (Bld) [Ratio] 0.2 % Normal 0-0.[address] [facility] Comment on above: Performed By: #### C K, BMP, SCAN CBC, PTT, BNP, PT, TROP #### [address] Platelet Estimate Normal Normal Normal [facility] Comment on above: Performed By: #### C K, BMP, SCAN CBC, PTT, BNP, PT, TROP #### [address] Platelet mean volume (Bld) [Entitic vol] 9.4 fL Normal 6.3-10.[address] [facility] Comment on above: Performed By: #### C K, BMP, SCAN CBC, PTT, BNP, PT, TROP #### [address] Platelet Morphology Normal Normal Normal [facility] Comment on above: Result Comment: PERF ORMED BY: [place] [address] PATHOLOGIST WELL SERVICES OPERATOR GIA SHAH M.D. Performed By: #### C K, BMP, SCAN CBC, PTT, BNP, PT, TROP #### [address] Platelets (Bld) [#/Vol] 305 10*3/uL Normal 150-[address] [facility] Comment on above: Performed By: #### C K, BMP, SCAN CBC, PTT, BNP, PT, TROP #### [address] RBC (Bld) [#/Vol] 4.68 10*6/uL Normal 3.60-5.00 [facility] Comment on above: Performed By: #### C K, BMP, SCAN CBC, PTT, BNP, PT, TROP #### [address] RBC morphology finding Nom (Bld) Normal Normal [facility] Comment on above: Performed By: #### C K, BMP, SCAN CBC, PTT, BNP, PT, TROP #### [address] WBC (Bld) [#/Vol] 16.5 10*3/uL High 4.5-11.0 [facility] Comment on above: Performed By: #### C K, BMP, SCAN CBC, PTT, BNP, PT, TROP #### [place] [address] [place] Troponin I(TnI)on 03-20-2021 Troponin I.cardiac [Mass/Vol] 4.57 ng/mL Off scale high 0-0.[address] [facility] Comment on above: Order Comment: NOTIF IED,KAH,1455 Result Comment: [place] Cut off value > or equal to 0.03 ng/mL in conjunction with clinical conditions of myocardial infarction. (www.escardio.org/guidelines) PERFORMED BY: [place] [address] PATHOLOGIST WELL SERVICES OPERATOR GIA SHAH M.D. Performed By: #### C K, BMP, SCAN CBC, PTT, BNP, PT, TROP #### [place] [address] [place] Troponin I.cardiac [Mass/Vol] 5.16 ng/mL Off scale high 0-0.[address] [facility] Comment on above: Result Comment: [place] Cut off value > or equal to 0.03 ng/mL in conjunction with clinical conditions of myocardial infarction. (www.escardio.org/guidelines) PERFORMED BY: [place] [address] PATHOLOGIST WELL SERVICES OPERATOR GIA SHAH M.D. Performed By: #### C K, BMP, SCAN CBC, PTT, BNP, PT, TROP #### [place] [address] [place] Troponin I.cardiac [Mass/Vol] 4.93 ng/mL Off scale high 0-0.[address] [facility] Comment on above: Result Comment: [place] Cut off value > or equal to 0.03 ng/mL in conjunction with clinical conditions of myocardial infarction. (www.escardio.org/guidelines) PERFORMED BY: [place] [address] PATHOLOGIST WELL SERVICES OPERATOR GIA SHAH M.D. Performed By: #### C K, BMP, SCAN CBC, PTT, BNP, PT, TROP #### [address] [place] [address] [facility] XR chest 1V portableon 03-20 XR chest 1V portable [facility] [place] [address] [place], [place] [id number] XRay Report Signed Patient: Fausto Corrigan MR#: [id number] 0 : 1960 Acct:[id number] Age/Sex: 60 / F ADM Date: 03/19/21 Loc: Room: [address] [place] [address] Type: ADM IN Attending Dr: Kal Kellogg [...] Robel Roland M.D.03/20/2021 8:58 AM Dictation Location: [place] [address] Transcribed By: [facility] 03/20/21 0858 Dictated By: Robel Roland DO 03/20/21 0857 Signed By: 03/20/21 [address] [facility] B-Type Natriuretic Peptideon 03-19-2021 Natriuretic peptide B (Bld) [Mass/Vol] 117.0 pg/mL High 5-[address] [facility] Comment on above: Result Comment: PERF ORMED BY: [place] [address] PATHOLOGIST WELL SERVICES OPERATOR GIA SHAH M.D. Performed By: #### C K, BMP, SCAN CBC, PTT, BNP, PT, TROP #### [facility] [address] [place], [place] [id number] [facility] Basic Metabolic Panelon 02-26 Calcium [Mass/Vol] 9.9 mg/dL Normal 8.2-10.2 [facility] Comment on above: Performed By: #### C K, BMP, SCAN CBC, PTT, BNP, PT, TROP #### [address] Chloride [Moles/Vol] 95 mmol/L Normal 95-[address] [facility] Comment on above: Performed By: #### C K, BMP, SCAN CBC, PTT, BNP, PT, TROP #### [address] CO2 [Moles/Vol] 28.2 mmol/L Normal 22.0-30.0 [facility] Comment on above: Performed By: #### C K, BMP, SCAN CBC, PTT, BNP, PT, TROP #### [address] Creatinine [Mass/Vol] 1.41 mg/dL High 0.44-1.[address] [facility] Comment on above: Performed By: #### C K, BMP, SCAN CBC, PTT, BNP, PT, TROP #### [address] Creatinine Clr Calc Pharmacy 38.52 [facility] Comment on above: Result Comment: PERF ORMED BY: [place] [address] PATHOLOGIST WELL SERVICES OPERATOR GIA SHAH M.D. Performed By: #### C K, BMP, SCAN CBC, PTT, BNP, PT, TROP #### [address] Estimated GFR ( [place] 46 [facility] Comment on above: Result Comment: GFR estimated reference range: According to KDOQI guidelines, <60 ml/min/1.73m2 is sufficient to diagnose a patient with chronic kidney disease. Performed By: #### C K, BMP, SCAN CBC, PTT, BNP, PT, TROP #### [address] Estimated GFR (Non- Am 38 [facility] Comment on above: Performed By: #### C K, BMP, SCAN CBC, PTT, BNP, PT, TROP #### [facility] [address] Glucose [Mass/Vol] 143 mg/dL High 70-100 [facility] Comment on above: Result Comment: [facility] Glucose Reference Range is dependent on time and content of last meal. Glucose of more than 200 mg/dL in a nonstressed, ambulatory subject supports the diagnosis of Diabetes Mellitus. ADA recommended reference range Performed By: #### C K, BMP, SCAN CBC, PTT, BNP, PT, TROP #### [facility] [address] Potassium [Moles/Vol] 3.4 mmol/L Low 3.5-5.[address] [facility] Comment on above: Performed By: #### C K, BMP, SCAN CBC, PTT, BNP, PT, TROP #### [facility] [address] Sodium [Moles/Vol] 139 mmol/L Normal 136-146 [facility] Comment on above: Performed By: #### C K, BMP, SCAN CBC, PTT, BNP, PT, TROP #### [facility] [address] Urea nitrogen [Mass/Vol] 28 mg/dL High 9-[address] [facility] Comment on above: Performed By: #### C K, BMP, SCAN CBC, PTT, BNP, PT, TROP #### [address] COVID-19 Antigenon 1 COVID-19 [facility] [...] its performance Kristan Disclaimer characteristic determined by [employer] and Kristan Disclaimer validated at [facility]. This Kristan Disclaimer test has not been [...] is terminated or revoked sooner. PERFORMED BY: [facility] [address] [place] [address] PATHOLOGIST WELL SERVICES OPERATOR GIA SHAH M.D. Normal [facility] Comment on above: Performed By: #### C OVID 19 FR, SOFIANEG, COVID-19 KRISTAN #### [facility] [address] [place] [address] [facility] SARS-CoV-2 (COVID-19) RNA SHERRIE+probe Ql (Unsp spec) Negative Normal Negative [facility] Comment on above: Order Comment: Healt hcare Worker?: N Result Comment: Testing for SARS-CoV-2 by RT-PCR This test was developed and its performance characteristics determined by [employer]) and validated at the [facility]. This test has not been FDA cleared [...] is terminated or revoked sooner. PERFORMED BY: [facility] [address] [facility] [address] PATHOLOGIST WELL SERVICES OPERATOR GIA SHAH M.D. Performed By: #### C OVID 19 [facility], SOFIANEG, COVID-19 KRISTAN #### [facility] [address] [place] [id number] [place] Creatine Kinaseon 03-19-2021 CK [Catalytic activity/Vol] 123 U/L Normal 22-[address] [facility] Comment on above: Performed By: #### C K, BMP, SCAN CBC, PTT, BNP, PT, TROP #### [facility] [address] [place] [id number] [place] ECG 12 lead ECGon 03-19-2021 ECG 12 lead ECG [place] [address] Electrocardiograph Report Signed Patient: Fausto Corrigan MR#: [id number] 0 : 1960 Acct:[id number] Age/Sex: 60 / F ADM Date: 03/19/21 Loc: Room: [address] [place] [address] Type: ADM IN Attending Dr: Kal Kellogg [...] rhythm Inferior infarct , possibly acute ACUTE SC / STEMI Consider right ventricular involvement in acute inferior infarct Abnormal ECG When compared with ECG of 19-MAR-2021 20:15, (Unconfirmed) No significant change was found Confirmed by LAYNE SIMON DO ([id number]) on 03/20/2021 2:13:27 AM Referred By: Electronically Signed By:LAYNE SIMON DO Transcribed By: MUS Dictated By: Layne Simon DO 03/19/212021 Signed By: 03/20/21 0213 [facility] ECG 12 lead ECG [facility] Main [place] [id number] Electrocardiograph Report Signed Patient: Fausto Corrigan MR#: [id number] 0 : 1960 Acct:[id number] Age/Sex: 60 / F ADM Date: 03/19/21 Loc: Room: [address] [place] [address] Type: ADM IN Attending Dr: Kal Kellogg [...] consider inferior injury or acute infarct ACUTE SC / STEMI Consider right ventricular involvement in acute inferior infarct Abnormal ECG No previous ECGs available Confirmed by LAYNE SIMON DO ([id number]) on 03/20/2021 2:13:27 AM Referred By: Electronically Signed By:LAYNE SIMON DO Transcribed By: MUS Dictated By: Layne Simon DO 03/19/212014 Signed By: 03/20/21 0213 [facility] Partial Thromboplastin Timeo n 03-19-2021 aPTT Coag (Bld) [Time] 29.7 s Normal 25.1-36.[address] [facility] Comment on above: Result Comment: PERF ORMED BY: [place] [address] PATHOLOGIST WELL SERVICES OPERATOR GIA SHAH M.D. Performed By: #### C K, BMP, SCAN CBC, PTT, BNP, PT, TROP #### [facility] [address] [place] [address] Prothrombin Time INRon 03-19 INR Coag (PPP) [Relative time] 1.1 {INR} Normal [facility] Comment on above: Result Comment: INR Therapeutic [...] SCAN CBC, PTT, BNP, PT, TROP #### [address] PT Coag (PPP) [Time] 12.2 s Normal 9.0-12.[address] [facility] Comment on above: Performed By: #### C K, BMP, SCAN CBC, PTT, BNP, PT, TROP #### [address] Scan and CBCon 03-19-2021 Basophils (Bld) [#/Vol] 0.2 10*3/uL Normal 0.0-0.[address] [facility] Comment on above: Performed By: #### C K, BMP, SCAN CBC, PTT, BNP, PT, TROP #### [address] Basophils/100 WBC (Bld) 0.9 % Normal . [facility] Comment on above: Performed By: #### C K, BMP, SCAN CBC, PTT, BNP, PT, TROP #### [address] Eosinophils (Bld) [#/Vol] 0.4 10*3/uL Normal 0.0-0.[address] [facility] Comment on above: Performed By: #### C K, BMP, SCAN CBC, PTT, BNP, PT, TROP #### [address] Eosinophils/100 WBC (Bld) 2.1 % Normal . [facility] Comment on above: Performed By: #### C K, BMP, SCAN CBC, PTT, BNP, PT, TROP #### [address] Erythrocyte distribution width (RBC) [Ratio] 13.3 % Normal 11.9-15.[address] [facility] Comment on above: Performed By: #### C K, BMP, SCAN CBC, PTT, BNP, PT, TROP #### [place] [address] Hematocrit (Bld) [Volume fraction] 46.2 % Normal 34.0-46.[address] [facility] Comment on above: Performed By: #### C K, BMP, SCAN CBC, PTT, BNP, PT, TROP #### [address] Hemoglobin (Bld) [Mass/Vol] 15.7 g/dL High 11.8-15.[address] [facility] Comment on above: Performed By: #### C K, BMP, SCAN CBC, PTT, BNP, PT, TROP #### [address] Lymphocytes (Bld) [#/Vol] 5.0 10*3/uL High 1.00-4.[address] [facility] Comment on above: Performed By: #### C K, BMP, SCAN CBC, PTT, BNP, PT, TROP #### [address] Lymphocytes/100 WBC (Bld) 27.2 % Normal . [facility] Comment on above: Performed By: #### C K, BMP, SCAN CBC, PTT, BNP, PT, TROP #### [address] MCH (RBC) [Entitic mass] 31.2 pg Normal 24.7-34.[address] [facility] Comment on above: Performed By: #### C K, BMP, SCAN CBC, PTT, BNP, PT, TROP #### [address] MCV (RBC) [Entitic vol] 91.8 fL Normal 80-[address] [facility] Comment on above: Performed By: #### C K, BMP, SCAN CBC, PTT, BNP, PT, TROP #### [address] Mean Corpuscular HGB Conc 34.0 g/dL Normal 32.0-35.[address] [facility] Comment on above: Performed By: #### C K, BMP, SCAN CBC, PTT, BNP, PT, TROP #### [address] Monocytes (Bld) [#/Vol] 1.4 10*3/uL High 0.0-0.[address] [facility] Comment on above: Performed By: #### C K, BMP, SCAN CBC, PTT, BNP, PT, TROP #### [address] Monocytes/100 WBC (Bld) 7.5 % Normal . [facility] Comment on above: Performed By: #### C K, BMP, SCAN CBC, PTT, BNP, PT, TROP #### [address] Neutrophils (Bld) [#/Vol] 11.5 10*3/uL High 1.8-7.[address] [facility] Comment on above: Performed By: #### C K, BMP, SCAN CBC, PTT, BNP, PT, TROP #### [address] Neutrophils/100 WBC (Bld) 62.3 % Normal . [facility] Comment on above: Performed By: #### C K, BMP, SCAN CBC, PTT, BNP, PT, TROP #### [address] Nucleated RBC/100 WBC (Bld) [Ratio] 0.2 % Normal 0-0.[address] [facility] Comment on above: Performed By: #### C K, BMP, SCAN CBC, PTT, BNP, PT, TROP #### [address] Platelet Estimate Normal Normal Normal [facility] Comment on above: Performed By: #### C K, BMP, SCAN CBC, PTT, BNP, PT, TROP #### [address] Platelet mean volume (Bld) [Entitic vol] 9.6 fL Normal 6.3-10.[address] [facility] Comment on above: Performed By: #### C K, BMP, SCAN CBC, PTT, BNP, PT, TROP #### [address] Platelet Morphology Normal Normal Normal [facility] Comment on above: Result Comment: PERF ORMED BY: [place] [address] PATHOLOGIST WELL SERVICES OPERATOR GIA SHAH M.D. Performed By: #### C K, BMP, SCAN CBC, PTT, BNP, PT, TROP #### [address] Platelets (Bld) [#/Vol] 313 10*3/uL Normal 150-[address] [facility] Comment on above: Performed By: #### C K, BMP, SCAN CBC, PTT, BNP, PT, TROP #### [address] RBC (Bld) [#/Vol] 5.03 10*6/uL High 3.60-5.00 [facility] Comment on above: Performed By: #### C K, BMP, SCAN CBC, PTT, BNP, PT, TROP #### [address] RBC morphology finding Nom (Bld) Normal Normal [facility] Comment on above: Performed By: #### C K, BMP, SCAN CBC, PTT, BNP, PT, TROP #### [address] WBC (Bld) [#/Vol] 18.4 10*3/uL High 4.5-11.0 [facility] Comment on above: Performed By: #### C K, BMP, SCAN CBC, PTT, BNP, PT, TROP #### [address] Kristan Ag Negativeon 03-19-20 21 Kristan Ag Negative Negative Normal Negative [facility] Comment on above: Result Comment: This is a duplicate Kristan SARS Antigen (KOLTON) result to be used for statistical tracking purpose only. PERFORMED BY: [place] [address] PATHOLOGIST WELL SERVICES OPERATOR GIA SHAH M.D. Performed By: #### C OVID 19 [facility], SOFIANEG, COVID-19 KRISTAN #### [facility] [address] [place] [id number] [facility] Troponin I(TnI)on 03-19-2021 Troponin I.cardiac [Mass/Vol] 4.25 ng/mL Off scale high 0-0.[address] [facility] Comment on above: Result Comment: Crit ical value result called at 2209 on 03/19/21 MILLA SC Cut off value > or equal to 0.03 ng/mL in conjunction with clinical conditions of myocardial infarction. (www.escardio.org/guidelines) PERFORMED BY: [facility] [address] [place] [address] PATHOLOGIST WELL SERVICES OPERATOR GIA SHAH M.D. Performed By: #### C K, BMP, SCAN CBC, PTT, BNP, PT, TROP #### [facility] [address] [place] [id number] [facility] Gastroenterology Office/Clin ic Noteon 02-26-2021 Gastroenterology [...] after patient consented to recording for virtual promotion specialist and provider reviewed before signing. ARMEN: Lianne Jensen Follow-up With When Contact Information ROM RNENER, Gladys, JOSE, MED Within 2 weeks [facility] [address] [place] [address]- Additional Instructions: Problem List/Past Medical History Ongoing [...] Primary malignant neoplasm of prostate: Father. Normal [facility] Comment on above: Result Comment: Elec tronically Signed By: Lianen Jensen\.br\Date and Time Signed: 02/25/21 15:53 EDT\.br\Electronically Co-Signed By: Gladys CUETO MD\.br\Date and Time Co-Signed: 02/26/21 12:32 EDT Ambulatory Clinical Summaryo n 02-25-2021 Ambulatory Clinical Summary {[id number]}CD:6143 68 Normal [facility] Coding Summary.on 07-15-2020 Coding Summary. CODING DATE: 020 FINAL [facility] DSC STATUS: Home (Routine DC) PAYOR: Medicaid [...] CphT Date Saved: 07/15/2020 12:25 pm Normal [facility] Priority Order-Isra 2019 Priority Order-STAT Comment Invalid Interpretation Code [facility] Comment on above: Result Comment: Rece ived Performed at: [facility] [address] [place], [place] [id number] MD Fredy Larson Performed By: #### S ARS-CoV-2, SHERRIE, [id number] #### [facility] [address] [place] [address] SARS-CoV-2, NAAon 06-25-2020 SARS-CoV-2 (COVID-19) RNA SHERRIE+probe Ql (Resp) Not detected Invalid Interpretation Code Not Detected [facility] Comment on above: Result Comment: This nucleic acid amplification test was developed and its performance characteristics determined by [employer]. Nucleic acid amplification tests include PCR and [...] detected) result in this assay. Performed at: [facility] [address] [facility] [place] [id number] MD Fredy Larson Performed By: #### S ARS-CoV-2, SHERRIE, [id number] #### [facility] [address] [place] [address] [place]enton 06-20-2020 Consent [id number]#[id number]:127 Normal [facility] Pre-Certification Formon Pre-Certification Form [id number]#1.00CD:127 Normal [facility] Physician Orderon 06-19-2020 Physician Order [id number]#1.00CD:127 Normal [facility] Ambulatory Clinical Summaryo n 06-17-2020 Ambulatory Clinical Summary {[id number]}CD:6143 68 Normal [facility] Gastroenterology Office/Clin ic Noteon 06-17-2020 Gastroenterology [...] 60 tab(s), Refills(s) 11, Pharmacy: [facility], 154, cm, 06/17/20 12:27:00 EDT, Height/Length Dosing, 71.9, kg, 06/17/20 12:27:00 EDT, Weight Dosing Follow-up With When Contact Information Gladys CUETO MD Within 2 weeks [facility] [address] [place] [address]- Additional Instructions: Patient Education Heartburn Problem List/Past [...] Primary malignant neoplasm of prostate: Father. Normal [facility] Comment on above: Result Comment: Elec [...] caregiver may tell you to use certain rjxq-ylr-hmpxsbu medicines (antacids, acid reducers) for mild heartburn. [...] Spicy foods. ? Garlic and onions. ? [place] fruits, including oranges, grapefruit, jacqui, and limes. [...] 02/28/2012 ExitCare? Patient Information ?2014 [employer] [facility] Formson 06-12-2020 Forms [id number]#1.00CD:127 [facility] CNOVon 03-17-2018 CNOV Office Visit (AGHWW1) ----FAUSTO CORRIGNA ([id number]) 1960 FDate Time Provider Department03/17/18 1:30 PM [...] Alcohol use: No Drug use: John OF [employer] noteMSK: + as noted in HPI.Physical Examination:On [...] Protective sensation intact at all pedalsites via [place] Gabrielle 5.07 monofilament bilateral. 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]Order(s):XR FOOT GENERAL 3V AP/LAT/OBL RT [[id number]] Order #: [id number] CONSULT TO ORTHOTIC/PROSTHETIC [524704] Order #: [id number]: 1Prescriptions as of 03/17/2018 Sig: ALBUTEROL SULFATE [...] (around 05/17/2018).Follow-up and Disposition History RecordedEncounter Number: [id number] Status:Closed by THOMAS DELGADILLO DPM on 04/17/18 [facility] PROGRESSon 03-17-2018 Protein HNO ID: [id number] thor: Thomas Jiang: (none)Author Type: PhysicianType: Progress [...] Alcohol use: No Drug use: John OF [employer] noteMSK: + as noted in HPI.Physical Examination:On General Observation: Patient is a pleasant, cooperative, well aszteuwol89 year oldadult female. The patient is alert [...] Protective sensation intact at allpedal sites via [place] Gabrielle 5.07 monofilament bilateral.Proprioception intact at the [...] anticipated course of treatment.Rx for SAAFO from [employer] was given, patient to obtain and use to see [facility] pain Follow up in 2 monthsYosi Yu DPM PGY2I personally saw and evaluated the patient. I reviewed the resident'snote. I agree with the resident's assessment and plan unless otherwisenoted.Thomas Delgadillo DPM, FACFAS [facility]) ----FAUSTO CORRIGAN ([id number]) 1960 [facility] Time Provider Bdqgxgmbgu81/6/17 AIMEE HERNANDEZ During your visit today, we [...] - AnaphylaxisDate Reviewed: 07/26/2017Reviewed by: Sis Kirkpatrick SOURCE WATER PROTECTION SPECIALIST - Fully AssessedReason for Visit: Insurance Authorization [[id number]] Cmt: pt called requesting prior auth for [...] Breath. Status:Closed by KRISTA LAGOS on 09/01/17 [facility] 08-18-2017 CNCO Letter TextNovember 2016Fausto Corrigan[address] [facility] [address], [place] [address]ju Ms. Fausto Corrigan,It was a pleasure to see you in the Department of Pulmonary Medicine on07/26/2017.Attached please find a copy of your Visit Summary.I appreciate having the opportunity to see you. If I can be of furtherassistance to you, or if you have any questions regarding this report, pleasefeel free to contact my office.Sincerely,NATE Chaparro/Aidenment: Visit Summary Normal [facility] CBCon 07-26-2017 Erythrocyte distribution width Auto Ratio (RBC) 12.9 % Normal 11.5-15.0 [facility] Comment on above: Performed By: #### C BC, CMP ####[facility], [place] [phone] Erythrocytes (RBC) 10*6/uL Normal <0.01 [facility] Comment on above: Performed By: #### C BC, CMP ####[facility], [place] [phone] Erythrocytes (RBC) 5.08 10*6/uL Normal 3.90-5.20 [facility] Comment on above: Performed By: #### C BC, CMP ####[facility] [address]CBlo[address], [place] [phone] Hematocrit (HCT) 47.7 % High 36.0-46.0 [facility] Comment on above: Performed By: #### C BC, CMP ####[facility] [address]lo[address], [place] [phone] Hemoglobin mass conc (Bld) 15.3 g/dL Normal 11.5-15.5 [facility] Comment on above: Performed By: #### C BC, CMP ####[facility] [address]CBlo[address], [place] [phone] MCH 30.1 pG Normal 26.0-34.0 [facility] Comment on above: Performed By: #### C BC, CMP ####[facility], [place] [phone] MCHC mass conc (RBC) 32.1 g/dL Normal 30.5-36.0 [facility] Comment on above: Performed By: #### C MAYANK, CMP ####[facility], [place] [phone] MCV 93.9 fL Normal 80.0-100.0 [facility] Comment on above: Performed By: #### C MAYANK, CMP ####[facility] [place], [place] [phone] Platelet mean volume (PMV) 11.9 fL Normal 9.0-12.7 [facility] Comment on above: Performed By: #### Andrzej TALLEY, CMP ####[place] [address] [place], [place] [phone] Platelets 283 10*3/uL Normal 150-400 [facility] Comment on above: Performed By: #### C MAYANK, CMP ####[facility] [place], [place] [phone] WBC (Leukocytes) 13.36 10*3/uL High 3.70-11.[address] [facility] Comment on above: Performed By: #### Andrzej TALLEY, CMP ####[facility] [place], [place] [phone] CNOVon 07-26-2017 CNOV Office Visit (PSSCMN) ----FAUSTO CORRIGAN ([id number]) 1960 FDate Time Provider Izwvpgjnen79/30/17 3:30 PM [facility] PSSCMN During your visit today, we recorded the following information about you: Pulse Blood pressure Weight Height 75/minute 120/69 73 kg 1.52 Shannan Sosa DO 07/26/2017 5:18 PM SignedANESTHESIA PRE-OPERATIVE ASSESSMENT (PACE)SERVICE DATE: 07/26/2017SERVICE TIME: 4:56 PMASSESSMENT ANDamp; PLAN:Fausto Corrigan is a 57 year old female scheduled for sigmoid colectomy w/ SOCIAL MEDIA CONTENT MANAGER perSurgery Request Case in MAIN on 08/03/17.PMH:COPD [...] lb 15 oz) SpO2 96% BMI 31.6 kg/e9Sqvqx signs completed by: IMPACTWeight acquired: per HANDamp;P. [...] 4:26 PM PAGER/CONTACT #:Referring Provider: ESEQUIEL THOMAS [[id number]]Allergies As of Date: 07/26/2017 Noted Allergy ReactionSULFA (SULFONAMIDE ANTIBIOTICS) 06/07/2017 4 - Hives 10 - AnaphylaxisDate Reviewed: 07/26/2017Reviewed by: Sis Hogan [facility] - Fully AssessedPrimary Visit Diagnosis:Pre-op evaluation [...] Cosign Required by: James Vogel III[] Normal [facility] CNOV Office Visit (IMPAMN) ----FAUSTO CORRIGAN ([id number]) 1960 [facility] Provider Cqpdlrvxjo75/30/17 2:15 PM IRVERA PATRICIA) IMPAMN During your visit today, we [...] or fevers.Neuro: No history of TIA's, stroke, SHERIFF'S OFFICER tumor, impaired sensorium, hemiplegia,paraplegia or quadriplegia. No neurological symptoms or problems.Respiratory: COPD on nebulizersCardiovascular: No history of HTN requiring medication, no history of angina,CHF, SC, cardiac surgery or stents. Denies rest pain, gangrene orrevascularization/amputati on for PVD. No history of cardiovascular symptoms orproblems.GI: Peptic Ulcer Disease on ZantacGU: No history of UTI in past 6 weeks. No history of renal failure. Notcurrently on or requiring dialysis. 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 Fernandez of Surgery: 08/03/2017Planned Surgery/Procedure: Sigmoid Colectomy w/ CRAAllergies have been reviewed and verified. They include the following:Sulfa (Sulfonamide Antibiotics)Social HistorySubstance Use Topics- Smoking status: Former Smoker Years: 20.00 Types: Cigarettes Start date: 06/07/1997 Quit date: 06/26/2017- Smokeless tobacco: Never Used Comment: smokes 3-4 daily- Alcohol use NoMedications reviewed and updated: Armida Patricia MD 07/26/2017 4:05 PM Signed [facility]ITALPatient Instructions for SurgeryFOOD INSTRUCTIONS:NO solid food [...] visit please do nothesitate to contact the [facility] at [phone] or [phone], [phone].Signature: Rivera Patricia MDDate: July 26, 2017Referring Provider: ESEQUIEL THOMAS [[id number]]Allergies As of Date: 07/26/2017 Noted Allergy ReactionSULFA (SULFONAMIDE ANTIBIOTICS) 06/07/2017 4 - Hives 10 - AnaphylaxisDate Reviewed: 07/26/2017Reviewed by: Sis Kirkpatrick LPN - Fully AssessedPrimary Visit Diagnosis:Chronic obstructive pulmonary disease, unspecified COPD type ([facility]) [J44.9] Other Visit Diagnoses:Pre-operative examination [Z01.818] Upper [...] MG TABLET >> Sis D Samira Kirkpatrick SOURCE WATER PROTECTION SPECIALIST 07/26/2017 3:41 PM >> DIEGO JOSUEICA D L* WedJul 26, 2017 3:41 PM ATENOLOL 50 MG-CHLORTHALIDONE 25 MG TABLET >> Sis D Samira Mcleanter SOURCE WATER PROTECTION SPECIALIST 07/26/2017 3:41 PM >> SAMIRA RADHA SIS D L* WedJul 26, 2017 3:41 PM OXYCODONE-ACETAMINOPHEN 5 MG-325 MG TABLET >> Sis D Samira Mcleanter SOURCE WATER PROTECTION SPECIALIST 07/26/2017 3:41 PM >> SAMIRA RADHA SIS D L* WedJul 26, 2017 3:41 PM DOCUSATE SODIUM 100 MG CAPSULE >> Sis D Samira Kirkpatrick SOURCE WATER PROTECTION SPECIALIST 07/26/2017 3:41 PM >> SAMIRA DIEGO KIRKPATRICKICA D L* WedJul 26, 2017 3:41 PMProblem List As Of Date 07/26/2017 Noted Resolved 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 Other instructions from your clinician: [facility] Patient Instructions for Surgery FOOD INSTRUCTIONS: [...] please do not hesitate to contact the [facility] at [phone] or [phone], ext [phone]. Signature: Rivera Patricia MD Date: July 26, 2017Encounter Number: [id number] Status:Closed by RIVERA PATRICIA MD on 07/26/17 Normal [facility] CNOV Office Visit (ENDOMN) ----FAUSTO CORRIGAN ([id number]) 1960 FDate Time Provider Yuslygmffj52/30/17 1:20 PM IVAN HYDE) ENDOMN During your visit today, we recorded the following information about you: Weight 73 kgToshia Javed, RN, RN 07/26/2017 2:21 PM SignedThank you for choosing the [facility] Department of Endocrinology,Diabetes and Metabolism. Being able [...] lost opportunity for patients to receive [facility] care at the [facility].To Cancel an appointment, please choose one of the following: - Call the Appointment Call Center at [phone] - From Neighbor.ly, Go to Appointments ? Cancel ApptsIf cancelling, consider your need to reschedule to prevent further delays inyour care.To Schedule an appointment, please choose one of the following: - Call the Appointment Call Center at [phone] - From Neighbor[employer], Go to Appointments ? Request an Samara Hyde MD 07/27/2017 11:34 PM SignedDIABETES INITIAL CONSULTPATIENT NAME: Fausto CorriganMRN: [id number] DATE: 07/26/2017SERVICE TIME:REASON FOR CONSULT: DM Type 2REQUESTING PHYSICIAN:Ivan Hyde MD[address] [address]BUAIXNE CARE PHYSICIAN: No PcpSUBJECTIVEHISTORY OF PRESENT ILLNESS: [...] EXAM:Wt 73 kg (161 lb) BMI 31.61 kg/r7Nrhffec: Well appearing, alert, in no acute distress, [...] 26, 2017TIME: 2:32 PMReferring Provider: IVAN HYDE) [[id number]]Allergies As of Date: 07/26/2017 Noted Allergy ReactionSULFA (SULFONAMIDE ANTIBIOTICS) 06/07/2017 4 - Hives 10 - AnaphylaxisDate Reviewed: 07/26/2017Reviewed by: Sis Kirkpatrick [facility] - Fully AssessedReason for Visit: Diabetes [34]Primary Visit Diagnosis:Uncontrolled type 2 diabetes mellitus without complication, without long-term current use of insulin ([facility]) [E11.65]Order(s):HB A1C B/O [6434703] Order #: [id number] TSH BLD [SQTSH] Order #: [id number] FUTUREPrescriptions as of 07/26/2017 Sig: ALBUTEROL SULFATE [...] your clinician: Thank you for choosing the [facility] Department of Endocrinology, Diabetes and Metabolism. Being able to provide excellent health care has allowed us to be # 3 in the country according to [employer]. Did you know that you need to call 48 hours in advance of your scheduled visit, if you are unable to make your appointment? The Endocrinology and Metabolism [place] thanks you for your commitment, because patients not showing to their appointment results in a lost opportunity for patients to receive [facility] health care at the [facility]. To Cancel an appointment, please choose one of the following: - Call the Appointment Call Center at [phone] - From Neighbor[employer]ly, Go to Appointments ? Cancel Appts If cancelling, consider your need to reschedule to prevent further delays in your care. To Schedule an appointment, please choose one of the following: - Call the Appointment Call Center at [phone] - From Neighbor[employer]ly, Go to Appointments ? Request an ApptEncounter Number: [id number] Status:Closed by IVAN HYDE MD on 07/27/17 Normal [facility] CNOV Office Visit (PULMMN) ----FAUSTO CORRIGAN ([id number]) 1960 [facility] Time Provider Qhpaytrrsa18/30/17 9:50 AM AIMEE HERNANDEZ During your visit today, we recorded the following information about you: Temperature Pulse Respiration Blood pressure 98.5 degrees 74/minute 20/minute 116/67 Weight Height 73 kg 1.524 Jo Hernandez MD 07/26/2017 3:23 PM SignedPresbyterian Santa Fe Medical Centeriratory InstitutePulmonary ConsultationCC: Pre-operative evaluationConsultation requested by Dr. Thomas for a pre-operative pulmonary evaluation.My final recommendations will be communicated to the requesting health careprovider by way of the shared medical record for internal providers or lettervia the [employer] Postal Service for external providers.HISTORY OF PRESENT [...] Alcohol use: No Drug use: NoPrivate home restoration service cleaner for elderly peopleGets sick a lot from themPreviously worked in [employer], making plastic parts, [place] plasticwith some occupational exposure from thatOff an [...] and radiographsRadiology:PFT:SPI ROMETRY WITH DILATOR IF OBSTRUCTED ([id number]) - ordered on 07/26/17 [facility] [address] [place] [address] Test Date: 2949-41-23Fss Name: FAUSTO CORRIGAN Department: Room:Gender: Female Dialysis Biomed Technician: DIO VDOB: 1960 Requested By:Order Number: [id number] Reading MD: Interpretive StatementsTest no. 2 07/26/2017 12:14:11PM PRE/POST- ATS acceptability and repeatabilitystandards for spirometry met.Medications and Allergies were reviewed forpossibledrug interactions per policy MM-102. No contraindications or sensitivities werenoted. Respiratory meds taken in past 72H: Albuterol / 16 hours before testing. 4 puffs albuterol (360 mcg) delivered by MDI via valved holding chamber, HRpre=80/min, HRpost= 72/min. /JAQUAN//DIO nguyen??IMPRESSION: [facility] Respiratory [place] Pulmonary Function Lab Pred LLN JUAN Pre % Post % % chgDate [id number] 11:44AM 12:10PM Height 152.4 152.4Weight 72.6 72.6 [...] tolerated-Early ambulation and physical therapy as tolerated tzim-jdwqstsklgu-Ufrbzbhj narcotics as much as possible-Bronchodilators as needed [...] illnessMARIO ALBERTO Chaparroulmonary and Critical Care MedicineRespiratory InstituteWright-Patterson Medical CenterAimee Hernandez MD 07/26/2017 1:35 PM AddendumConsider lung cancer screening in the futureI would like to see you the day before your surgery to make sure you're feelingbetterPlease get the 6 minute walk test the same dayReferring Provider: ESEQUIEL THOMAS [[id number]]Allergies As of Date: 07/26/2017 Noted Allergy ReactionSULFA [...] wheezing.).Disp: 1 InhalerRfl: 5 SIX MINUTE WALK [5679239] Order #: [id number] FUTUREPrescriptions as of 07/26/2017 Sig: ALBUTEROL SULFATE [...] 07/26/2017 12:51 PM >> GABBY SPEARS MA [facility] Jul 26, 2017 12:51 PM Received from: External Pharmacy Received Sig: take 1 capsule by mouth twicea day PREDNISONE 10 MG TABLET >> Gabby Spears TREVOR 07/26/2017 12:51 PM >> SPEARS TREVORGABBY Jul 26, 2017 12:51 PM Received from: External Pharmacy ATENOLOL 50 MG-CHLORTHALIDONE 25 MG TABLET >> Gabby Spears TREVOR 07/26/2017 12:52 PM >> CHUYITA MURRAYGABBY [facility] Jul 26, 2017 12:52 PM Received from: External Pharmacy Received Sig: take 1 tablet by mouth oncedaily OXYCODONE-ACETAMINOPHEN 5 MG-325 MG TABLET >> Gabby Spears TREVOR 07/26/2017 12:50 PM >> SPEARS TREVORGABBY Jul 26, 2017 12:50 PM Pt. Takes as needed DOCUSATE SODIUM 100 MG CAPSULE >> Gabby Spears TREVOR 07/26/2017 12:49 PM >> CHUYITA MURRAY GABBY [facility] Jul 26, 2017 12:49 PM Pt. Taking [...] (on 08/23/2017).Follow-up and Disposition History RecordedEncounter Number: [id number] Status:Closed by AIMEE HERNANDEZ MD on 07/26/17 Normal [facility] Comp Metabolic Panelon 07-26 Alanine aminotransferase (ALT) 19 U/L Normal 7-38 [facility] Comment on above: Performed By: #### C BC, CMP ####[facility] [place] [phone] Albumin 4.3 g/dL Normal 3.9-4.9 [facility] Comment on above: Performed By: #### C MAYANK, CMP ####[facility] [place] [phone] Alkaline phosphatase (ALP) 96 U/L Normal 32-117 [facility] Comment on above: Performed By: #### C BC, CMP ####[facility] [place] [phone] Anion gap 18 mmol/L Normal 9-18 [facility] Comment on above: Performed By: #### C BC, CMP ####[facility] [address]CTiffany [place] [phone] Aspartate aminotransferase (AST) 16 U/L Normal 13-35 [facility] Comment on above: Performed By: #### C BC, CMP ####[facility] [address]CTiffany [place] [phone] Bilirubin (total) 0.2 mg/dL Normal 0.2-1.3 [facility] Comment on above: Performed By: #### C BC, CMP ####[facility] [address]CBloom[place], [place] [phone] Calcium 9.8 mg/dL Normal 8.5-10.2 [facility] Comment on above: Performed By: #### C BC, CMP ####[facility]lo[address], [place] [phone] Chloride 96 mmol/L Low 97-105 [facility] Comment on above: Performed By: #### C BC, CMP ####[facility]lo[address], [place] [phone] CO2 25 mmol/L Normal 22-30 [facility] Comment on above: Performed By: #### C MAYANK, CMP ####[place] [address] [place], [place] [phone] Creatinine 0.98 mg/dL High 0.58-0.96 [facility] Comment on above: Performed By: #### C MAYANK, CMP ####[place] [address] [address] [place], [place] [phone] eGFR (non-black) 59 . Normal [facility] Comment on above: Result Comment: eGFR (Estimated [...] GFR. Performed By: #### C MAYANK, CMP ####[facility] [place], [place] [phone] eGFR (non-black) mL/min/{1.73_m2} Normal [facility] Comment on above: Performed By: #### C BC, CMP ####[address] [phone] Glucose mass conc 133 mg/dL High 74-99 [facility] Comment on above: Result Comment: The [place] Diabetes Association (ADA) provides guidance for cutoff [...] Standards of Medical Care in Diabetes 2016, [place] Diabetes Association. Diabetes Care. 2016.39(Suppl 1). Performed By: #### C BC, CMP ####[facility] [phone] Potassium molar conc 3.9 mmol/L Normal 3.7-5.1 [facility] Comment on above: Performed By: #### C BC, CMP ####[place] [address] [address] [place] [phone] Protein 7.5 g/dL Normal 6.3-8.0 [facility] Comment on above: Performed By: #### C BC, CMP ####[facility] [place] [phone] Sodium 139 mmol/L Normal 136-144 [facility] Comment on above: Performed By: #### C BC, CMP ####[facility] [place] [phone] Urea nitrogen 20 mg/dL Normal 7-21 [facility] Comment on above: Performed By: #### C BC, CMP ####[facility] [phone] Confirm Blood Typeon 017 ABO/RH(D) Positive Normal [facility] Comment on above: Performed By: #### C ONABO ####[facility] [phone] OBSOLETEon 07-26-2017 OBSOLETE Procedure (PULLMN) ----YESSYFAUSTO ([id number]) 1960 FDate Time Provider Gtugusvkia77/30/17 9:00 AM PULM FCT LAB MAIN 6 ADDON PULLMN During your visit today, we recorded the following information about you:Referring Provider: ESEQUIEL THOMAS [[id number]]Allergies As of Date: 07/26/2017 Noted Allergy ReactionSULFA (SULFONAMIDE ANTIBIOTICS) 06/07/2017 4 - Hives 10 - AnaphylaxisDate Reviewed: 06/07/2017Reviewed by: Nicolle (Farm Demonstrator) JOSR Moncada - Fully AssessedReason for Visit: Spirometry [191]Primary Visit Diagnosis:Dyspnea, unspecified type [R06.00] Other Visit Diagnosis:Chronic obstructive pulmonary disease, unspecified COPD type ([facility]) [J44.9]Order(s):SPIROMETRY WITH DILATOR IF OBSTRUCTED [7174800] Order #: [id number]. #:[id number] ons as of 07/26/2017 Sig: OXYCODONE-ACETAMINOPHEN 5 [...] More... Status:Closed by ABIMAEL KENDALL on 07/26/17 [facility] PROGRESSon 07-26-2017 PROGRESS HNO ID: [id number] thor: Geoffrey (Res) NicholeuvenService: (none)Author Type: ResidentType: Progress NotesFiled: 07/26/2017 5:18 PMNote Text:ANESTHESIA PRE-OPERATIVE ASSESSMENT (PACE)SERVICE DATE: 07/26/2017SERVICE TIME: 4:56 PMASSESSMENT AND PLAN:Fasuto Corrigan is a 57 year old female [...] lb 15 oz) SpO2 96% BMI 31.6 kg/g8Miqsr signs completed by: IMPACTWeight acquired: per HANDP. 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 She will start taking it again mg twice a day. She has medication at home. Of importance is thattoday her fasting blood sugar was 1 33 mg/dL. We ordered a hemoglobin E1ueiqtp has not been done. We will see her back in 6 weeks a repeathemoglobin A1c. Her blood sugars should improve once she is off steroids.SIGNATURE: Ivan Hyde, MDDATE: July 26, 2017TIME: 2:32 PM Normal [facility] PROGRESS HNO ID: [id number] thor: Cristina Vernon RtService: (none)Author Type: (none)Type: Progress NotesFiled: 07/26/2017 1:40 PMNote Text: Radiology Service Progress NotePATIENT NAME: Fausto oCrriganMRN: [id number] OF SERVICE: July 26, 2017TIME: 1:40 PMPATIENT IDENTITY VERIFICATION COMPLETED USING TWO (2) METHODS: Patientconfirmed name verbally and Date of .PATIENT GENDER DATA: MalePATIENT RELEVANT IMPLANT DATA REVIEWED: Not ApplicableRADIOLOGY DEPARTMENT: General X-ray: Exam(s) Completed: Chest X-RayPERIPHERAL IV DATA: Not applicableSIGNED BY: Cristina Vernon RtOctober 2016 1:40 PM [facility] PROGRESS HNO ID: [id number] thor: Aimee Gonzalez: (none)Author Type: PhysicianType: Progress NotesFiled: 07/26/2017 3:23 PMNote Text:Respiratory InstitutePulmonary ConsultationCC: Pre-operative evaluationConsultation requested by Dr. Thomas for a pre-operative pulmonaryevaluation. 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 2 07/26/2017 12:14:11PM PRE/POST- ATS acceptability andrepeatabilitystandards for spirometry met.Medications and Allergies were reviewed forpossibledrug interactions per policy MM-102. No contraindications orsensitivities werenoted. Respiratory meds taken in past 72H: Albuterol / 16 hours beforetesting. 4 puffs albuterol (360 mcg) delivered by MDI via valved holding chamber, HRpre=80/min, HRpost= 72/min. /JAQUAN//DIO nguyen??IMPRESSION: [facility] Respiratory [place] Pulmonary Function Lab Pred LLN ULN Pre % Post % %chgDate 072753 036004Rgow 11:44AM 12:10PM Height 152.4 152.4Weight 72.6 72.6 [...] 4.28 1.06 34 1.36 4429FIF 50 1.99 2.2913O46/75 2.34 1.25 3.42 0.67 29 0.84 3625FE%FIF 53.13 61.8140HKT3 1.95 2.05 5PEF 5.36 3.63 7.09 4.30 80 5.37 96877LTK 10.82 10.59-2FETPEF 0.08 0.04-56VBe%FV 4.39 3.07 -30VBEex [...] (Gurinder Respiratoray Failure Index. Gurinder, AM. Nancie [id number]; 232: 242). THaving a respiratory infection within the past month increases the risk. Iagree with postponing surgery until Aug 24 to reduce her risk.RECOMMENDATIONS:In order to minimize the risk of complications and optimize pulmonarystatus, we recommend the following:-Encourage aggressive incentive spirometry hourly both ayse-operativelyand post-operatively as tolerated-Early ambulation and physical therapy as tolerated xozb-iqsmccthzfy-Bhbrvhvt narcotics as much as possible-Bronchodilators as needed [...] illnessAmy Santana, MDPulmonary and Critical Care MedicineRespiratory InstituteWright-[facility] Normal [facility] Type and SCR (30D)on 017 ABO/RH(D) Positive Normal [facility] Comment on above: Performed By: #### T SCR30 ####[facility] [place], [place] [phone] Antibody Screen Negative Normal [facility] Comment on above: Performed By: #### T SCR30 ####[facility] [place], [place] [phone] XR CHEST 2V FRONTAL/LATon XR CHEST 2V [...] abdomen suggest prior cholecystectomy.IMPRESSION:N o acute radiographic abnormality.Oil 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 No neurological symptoms orproblems.Respiratory: COPD on nebulizersCardiovascular: No history of HTN requiring medication, no history ofangina, CHF, SC, cardiac surgery or stents. Denies rest pain, gangrene orrevascularization/amputati on for PVD. No history of cardiovascularsymptoms or problems.GI: Peptic Ulcer Disease on ZantacGU: No history of UTI in past 6 weeks. No history of renal failure. Notcurrently on or requiring dialysis. 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: No vaginal bleeding due to menopause [...] : Rivera Patricia MD PATIENT NAME: Fausto CorriagnDATE: July 25, 2017 : 1:49 PM Normal [facility] HOSPon 06-08-2017 HOSP Patient Update (CORSMN) ----CORRIGANFAUSTO STODDARD ([id number]) 1960 FDate Time Provider Department06/08/17 ESEQUIEL THOMAS During your visit today, we recorded the following information about you:Allergies As of Date: 06/08/2017 Noted Allergy ReactionSULFA (SULFONAMIDE ANTIBIOTICS) 06/07/2017 4 - Hives 10 - AnaphylaxisDate Reviewed: 06/07/2017Reviewed by: Nicolle (Josr) JOSR Moncada - Fully AssessedPrimary Visit Diagnosis: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]Order(s):SURGICAL REQUEST - ELECTIVE [0839599] Order #: [id number]: 1 PER WHAT TO EXPECT DURING YOUR HOSPITAL STAY [9533788] Order #: [id number]: 1 CBC [SQCBC] Order #: [id number] FUTURE COMP METABOLIC PANEL [SQCMP] Order #: [id number] FUTURE CONFIRM BLOOD TYPE [SQCONABO] Order #: [id number] FUTURE TYPE + SCREEN,30 DAY [QFEISN00] Order #: [id number] FUTURE ECG COMPLETE W INTERPRETATION [ECG01] Order #: [id number] FUTURE REFER FOR ADMIT INTERVIEW [2414239] Order #: [id number] HANDP FOR SURGERY [T4703AOY] Order #: [id number] CONSULT TO PATIENT EDUCATION [19991031] Order #: [id number]: 1 CONSULT TO ANESTHESIOLOGY [9001] Order #: [id number]: 1 CONSULT TO INT MED-IMPACT [6414680] Order #: [id number]: 1 CONSULT TO PULMONARY MEDICINE [5273605] Order #: [id number]: 1 CONSULT TO ENDOCRINOLOGY [9006] Order #: [id number]: 1Prescriptions as of 06/08/2017 Sig: OXYCODONE-ACETAMINOPHEN 5 [...] FOR* More...Follow-up and Disposition History RecordedEncounter Number: [id number] Status:Closed by ESEQUIEL THOMAS MD, FACS on 06/09/17 [facility] CNOVon 06-07-2017 CNOV Office Visit (TOMAS) ----FAUSTO CORRIGAN ([id number]) 1960 FDate Time Provider Department06/07/17 1:20 PM ESEQUIEL THOMAS During your visit today, we recorded the following information about you: Temperature Pulse Blood pressure Weight 97.8 degrees 79/minute 119/76 73.5 kg Height 1.537 Geovany Thomas MD FACS 06/07/2017 3:44 PM SignedNew Patient ConsultREASON FOR Rafia Corrigan is a 56 year old female who is scheduled for a consult at [facility] for Consult (Colovaginal Fistula). [...] pain during BMs.She does have COPD from group home smoking, but says she only has 3-4 [...] RepositionGeneral: MalaiseNeuro: No history of TIA's, stroke, SHERIFF'S OFFICER tumor, impaired sensorium, hemiplegia,paraplegia or quadraplegia. No neurological symptoms or problems.Respiratory: COPDCardiovascular: Hx HTNGI: Positive for GERD, PUD, Heartburn, Abdominal pain, Diverticulitis, Historyof polypsGU: No history of UTI in past 6 weeks. No history of renal failure. Notcurrently on or requiring dialysis. 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 [...] pain during BMs.She does have COPD from vest baster smoking, but says she only has 3-4cigarettes [...] RepositionGeneral: MalaiseNeuro: No history of TIA's, stroke, SHERIFF'S OFFICER tumor, impaired sensorium,hemiplegia, paraplegia or quadraplegia. No neurological symptoms orproblems.Respiratory: COPDCardiovascular: Hx HTNGI: Positive for GERD, PUD, Heartburn, Abdominal pain, Diverticulitis,History of polypsGU: No history of UTI in past 6 weeks. No history of renal failure. Notcurrently on or requiring dialysis. 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: yellow/brown drainage from vagina x2 months [...] Thomas MD FACSDATE: 06/07/17TIME: 2:32 PM Normal [facility] SR-CT ABD/PELVIS W CON IMPOR Ton 04-15-2017 SR-CT ABD/PELVIS W CON IMPORT Images were obtained outside of [facility] [id number] Normal [facility] Vital Signs Date Time Vital Sign Value Performing Clinician Todd bishop 10-06-2022 13:45-0500 Body height 154.94 cm Veronique Jeff Vicentechongholkali Work Phone: [facility] DO Work Phone: 10-06-2022 13:45-0500 Body mass index (BMI) [Ratio] 29.29 kg/m2 Veronique Jeff Vicentehholz Work Phone: [facility] DO Work Phone: 10-06-2022 13:45-0500 Body surface area Derived from formula 1.7 m2 Veronique Jeff Vicentehholkali Work Phone: [facility] DO Work Phone: 10-06-2022 13:45-0500 Body weight 70.31 kg Veronique Jeff Vicentechongholz Work Phone: [facility] DO Work Phone: 10-06-2022 13:45-0500 Diastolic blood pressure 80 mm[Hg] Veronique Jeff Vicentehholkali Work Phone: [facility] DO Work Phone: 10-06-2022 13:45-0500 Heart rate 72 /min Veronique Jeff Vicentehholz Work Phone: [facility] DO Work Phone: 10-06-2022 13:45-0500 Systolic blood pressure 142 mm[Hg] Veronique Zhanghholz Work Phone: [facility] DO Work Phone: 10-16-2021 11:41-0500 Body height 154.94 cm Dara Mills Work Phone: [facility] DO Work Phone: 10-16-2021 11:41-0500 Body mass index (BMI) [Ratio] 30.04 kg/m2 Dara Mills Work Phone: [facility] DO Work Phone: 10-16-2021 11:41-0500 Body surface area Derived from formula 1.71 m2 Dara Mills Work Phone: [facility] DO Work Phone: 10-16-2021 11:41-0500 Body weight 72.12 kg Dara Mills Work Phone: [facility] DO Work Phone: 10-16-2021 11:41-0500 Diastolic blood pressure 82 mm[Hg] Dara Mills Work Phone: [facility] DO Work Phone: 10-16-2021 11:41-0500 Heart rate 65 /min Dara Mills Work Phone: [facility] DO Work Phone: 10-16-2021 11:41-0500 Systolic blood pressure 136 mm[Hg] Dara Mills Work Phone: [facility] DO Work Phone: 04-08-2021 11:18-0400 Body height 152.4 cm [facility] Work Phone: 04-08-2021 11:18-0400 Body mass index (BMI) [Ratio] 30.66 kg/m2 [facility] Work Phone: 04-08-2021 11:18-0400 Body weight 71.22 kg [facility] Work Phone: 04-08-2021 11:18-0400 Diastolic blood pressure 82 mm[Hg] [facility] Work Phone: 04-08-2021 11:18-0400 Heart rate 64 /min [facility] Work Phone: 04-08-2021 11:18-0400 Respiratory rate 18 /min [facility] Work Phone: 04-08-2021 11:18-0400 SaO2% (BldA) [Mass fraction] 97 % [facility] Work Phone: 04-08-2021 11:18-0400 Systolic blood pressure 144 mm[Hg] [facility] Work Phone: Encounters Encounter Date Encounter Type Care Provider Facility Start: 03-20-2024 End: 03-20-2024 ambulatory VERONIQUE VICENTEChongDANNI Not Available Start: 01-17-2024 ambulatory UNKNOWN PROVIDER Facili ty:[facility] Start: 01-19-2023 End: 01-19-2023 ambulatory BORA AMBRIZ VICENTEChongDANNI Facility:[facility] Start: 10-06-2022 Office outpatient vi sit 25 minutes Veronique Jeff Vicentechongamaurykali Work Phone: [facility] DO Work Phone: Start: 10-06-[address] Rafael Washington Facility: Start: 09-23-2022 Rx Renewal Dara Mills Work Phone: [facility] DO Work Phone: Start: 09-01-2022 End: 09-02-2022 ambulatory OLIVER ALVARADO . Facility:[facility] Start: 07-08-[address] Rafael Washington Facility: Start: 06-17-2022 End: 06-18-2022 ambulatory BORA CORDON Facility:[facility] Start: 03-12-2022 End: 03-13-2022 ambulatory [employer] VERONIQUE VICENTEChongDANNI Facility:[facility] Start: 10-16-[address] Rafael Washington Facility: Start: 10-16-2021 Office outpatient vi sit 15 minutes Dara Mills Work Phone: [facility] DO Work Phone: Start: 08-18-2021 End: 08-19-2021 [facility]ulatory [facility] Start: 07-31-2021 End: 08-01-2021 ambulatory [facility] Start: 07-31-2021 End: 07-31-2021 Subsequent hospital visit by [facility] Comment on above: Arrived Start: 07-30-2021 End: 07-31-2021 ambulatory [facility] Start: 07-30-2021 End: 07-30-2021 Subsequent hospital visit by physician [facility] Comment on above: Arrived Start: 07-21-2021 End: 07-22-2021 ambulatory [facility] Start: 07-21-2021 End: 07-21-2021 Subsequent hospital visit by physician [facility] Comment on above: Arrived Start: 07-17-2021 End: 07-18-2021 ambulatory [facility] Start: 07-17-2021 End: 07-17-2021 Subsequent hospital visit by physician [facility] Comment on above: Arrived Start: 07-10-2021 End: 07-11-2021 ambulatory [facility] Start: 07-10-2021 End: 07-10-2021 Subsequent hospital visit by physician [facility] Comment on above: Arrived Start: 07-09-2021 End: 07-10-2021 ambulatory [facility] Start: 07-09-2021 End: 07-09-2021 Subsequent hospital visit by physician [facility] Comment on above: Arrived Start: 07-07-2021 End: 07-07-2021 Subsequent hospital visit by physician [facility] Comment on above: Arrived Start: 07-02-2021 End: 07-03-2021 ambulatory [facility] Start: 07-02-2021 End: 07-02-2021 Subsequent hospital visit by physician [facility] Comment on above: Arrived Start: 05-29-2021 End: 05-30-2021 ambulatory [facility] Start: 05-28-2021 End: 05-29-2021 ambulatory [facility] Start: 05-28-2021 End: 05-28-2021 Subsequent hospital visit by physician [facility] Comment on above: Arrived Start: 05-26-2021 End: 05-27-2021 ambulatory [facility] Start: 05-26-2021 End: 05-26-2021 Subsequent hospital visit by physician [facility] Comment on above: Arrived Start: 05-22-2021 End: 05-23-2021 ambulatory [facility] Start: 05-22-2021 End: 05-22-2021 Subsequent hospital visit by physician [facility] Comment on above: Arrived Start: 05-19-2021 End: 05-20-2021 ambulatory [facility] Start: 05-19-2021 End: 05-19-2021 Subsequent hospital visit by physician [facility] Comment on above: Arrived Start: 05-15-2021 End: 05-16-2021 ambulatory [facility] Start: 05-15-2021 End: 05-15-2021 Subsequent hospital visit by physician [facility] Comment on above: Arrived Start: 05-12-2021 End: 05-13-2021 ambulatory [facility] Start: 05-08-2021 End: 05-09-2021 ambulatory [facility] Start: 05-08-2021 End: 05-08-2021 Subsequent hospital visit by physician [facility] Comment on above: Arrived Start: 05-07-2021 End: 05-08-2021 ambulatory [facility] Start: 05-05-2021 End: 05-06-2021 ambulatory [facility] Start: 05-01-2021 End: 05-02-2021 ambulatory [facility] Start: 04-28-2021 End: 04-29-2021 ambulatory [facility] Start: 04-28-2021 End: 04-28-2021 Subsequent hospital visit by physician [facility] Comment on above: Arrived Start: 04-23-2021 End: 04-24-2021 ambulatory [facility] Start: 04-23-2021 End: 04-23-2021 Subsequent hospital visit by physician [facility] Comment on above: Arrived Start: 04-21-2021 End: 04-22-2021 ambulatory [facility] Start: 04-21-2021 End: 04-21-2021 Subsequent hospital visit by physician [facility] Comment on above: Arrived Start: 04-14-2021 End: 04-15-2021 ambulatory [facility] Start: 04-14-2021 End: 04-14-2021 Subsequent hospital visit by physician [facility] Comment on above: Arrived Start: 04-10-2021 End: 04-11-2021 ambulatory [facility] Start: 04-08-2021 End: 04-09-2021 ambulatory [facility] Start: 04-08-2021 End: 04-08-2021 Subsequent hospital visit by physician [facility] Comment on above: Arrived Start: 05-19-2018 Patient encounter THOMAS DELGADILLO Facility:[facility] Start: 03-17-2018 End: 03-17-2018 Patient encounter THOMAS DELGADILLO Facility:[facility] Start: 02-03-2018 Patient encounter THOMAS DELGADILLO Facility:[facility] Start: 07-26-2017 End: 07-26-2017 Ambulatory ESEQUIEL THOMAS [facility] Start: 07-26-2017 End: 07-26-2017 Ambulatory IVAN HYDE [facility] Start: 07-26-2017 End: 07-27-2017 Ambulatory ESEQUIEL THOMAS [facility] Start: 07-26-2017 End: 07-26-2017 Ambulatory ESEQUIEL Andrzej THOMAS [facility] Start: 06-07-2017 End: 06-07-2017 Ambulatory ESEQUIEL Donnelly YANELIS [facility] Procedures Date Procedure Procedure Detail Performing Clinician Appendectomy Dara Mills Work Phone: Cardiac catheterization Amelia Mills Work Phone: Cholecystectomy Draa rasmussen Work Phone: History of percutane ous [...] Rafael Washington, Status: Pen, Time: 10:30 AM [facility] DO Work Phone: Start: 10-06-2022 FUV, Provider: Rafael Washington, Status: Julio, Time: 1:20 PM FUV, Provider: Rafael Washington, Status: Julio, Time: 1:20 PM [facility] DO Work Phone: Start: 04-14-2022 FUV, Provider: Rafael Washington, Status: Pen, Time: 11:20 AM FUV, Provider: Rafael Washington, Status: Julio, Time: 11:20 AM -[facility] 250 DO Work Phone: Start: 08-18-2021 End: 08-18-2021 Patient encounter procedure 08/18/2021 Appointment Cardiac Rehabilitation [facility] Start: 08-18-2021 End: 08-18-2021 Patient encounter procedure 08/18/2021 Appointment Cardiac Rehabilitation [facility] Start: 08-14-2021 End: 08-14-2021 Patient encounter procedure 08/14/2021 Appointment Cardiac Rehabilitation [facility] Start: 08-14-2021 End: 08-14-2021 Patient encounter procedure 08/14/2021 Appointment Cardiac Rehabilitation [facility] Start: 08-13-2021 End: 08-13-2021 Patient encounter procedure 08/13/2021 Appointment Cardiac Rehabilitation [facility] Start: 08-13-2021 End: 08-13-2021 Patient encounter procedure 08/13/2021 Appointment Cardiac Rehabilitation [facility] Start: 08-11-2021 End: 08-11-2021 Patient encounter procedure 08/11/2021 Appointment Cardiac Rehabilitation [facility] Start: 08-11-2021 End: 08-11-2021 Patient encounter procedure 08/11/2021 Appointment Cardiac Rehabilitation [facility] Start: 08-07-2021 End: 08-07-2021 Patient encounter procedure 08/07/2021 Appointment Cardiac Rehabilitation [facility] Start: 08-07-2021 End: 08-07-2021 Patient encounter procedure 08/07/2021 Appointment Cardiac Rehabilitation [facility] Start: 08-06-2021 End: 08-06-2021 Patient encounter procedure 08/06/2021 Appointment Cardiac Rehabilitation [facility] Start: 08-06-2021 End: 08-06-2021 Patient encounter procedure 08/06/2021 Appointment Cardiac Rehabilitation [facility] Start: 08-04-2021 End: 08-04-2021 Patient encounter procedure 08/04/2021 Appointment Cardiac Rehabilitation [facility] Start: 08-04-2021 End: 08-04-2021 Patient encounter procedure 08/04/2021 Appointment Cardiac Rehabilitation [facility] Start: 07-31-2021 End: 07-31-2021 Patient encounter procedure 07/31/2021 Appointment Cardiac Rehabilitation [facility] Start: 07-31-2021 End: 07-31-2021 Patient encounter procedure 07/31/2021 Appointment Cardiac Rehabilitation [facility] Start: 07-30-2021 End: 07-30-2021 Patient encounter procedure 07/30/2021 Appointment Cardiac Rehabilitation [facility] Start: 07-30-2021 End: 07-30-2021 Patient encounter procedure 07/30/2021 Appointment Cardiac Rehabilitation [facility] Start: 07-28-2021 End: 07-28-2021 Patient encounter procedure 07/28/2021 Appointment Cardiac Rehabilitation [facility] Start: 07-28-2021 End: 07-28-2021 Patient encounter procedure 07/28/2021 Appointment Cardiac Rehabilitation [facility] Start: 2021 End: 2021 Patient encounter procedure 2021 Appointment Cardiac Rehabilitation [facility] Start: 2021 End: 2021 Patient encounter procedure 2021 Appointment Cardiac Rehabilitation [facility] Start: 07-23-2021 End: 07-23-2021 Patient encounter procedure 07/23/2021 Appointment Cardiac Rehabilitation [facility] Start: 07-23-2021 End: 07-23-2021 Patient encounter procedure 07/23/2021 Appointment Cardiac Rehabilitation [facility] Start: 07-21-2021 End: 07-21-2021 Patient encounter procedure 07/21/2021 Appointment Cardiac Rehabilitation [facility] Start: 07-17-2021 End: 07-17-2021 Patient encounter procedure 07/17/2021 Appointment Cardiac Rehabilitation [facility] Start: 07-16-2021 End: 07-16-2021 Patient encounter procedure 07/16/2021 Appointment Cardiac Rehabilitation [facility] Start: 07-14-2021 End: 07-14-2021 Patient encounter procedure 07/14/2021 Appointment Cardiac Rehabilitation [facility] Start: 07-10-2021 End: 07-10-2021 Patient encounter procedure 07/10/2021 Appointment Cardiac Rehabilitation [facility] Start: 07-09-2021 End: 07-09-2021 Patient encounter procedure 07/09/2021 Appointment Cardiac Rehabilitation [facility] Start: 07-07-2021 End: 07-07-2021 Patient encounter procedure 07/07/2021 Appointment Cardiac Rehabilitation [facility] Start: 07-03-2021 End: 07-03-2021 Patient encounter procedure 07/03/2021 Appointment Cardiac Rehabilitation [facility] Start: 07-02-2021 End: 07-02-2021 Patient encounter procedure 07/02/2021 Appointment Cardiac Rehabilitation [facility] Start: 06-30-2021 End: 06-30-2021 Patient encounter procedure 06/30/2021 Appointment Cardiac Rehabilitation [facility] Start: 06-26-2021 End: 06-26-2021 Patient encounter procedure 06/26/2021 Appointment Cardiac Rehabilitation [facility] Start: 06-25-2021 End: 06-25-2021 Patient encounter procedure 06/25/2021 Appointment Cardiac Rehabilitation [facility] Start: 06-23-2021 End: 06-23-2021 Patient encounter procedure 06/23/2021 Appointment Cardiac Rehabilitation [facility] Start: 06-19-2021 End: 06-19-2021 Patient encounter procedure 06/19/2021 Appointment Cardiac Rehabilitation [facility] Start: 06-18-2021 End: 06-18-2021 Patient encounter procedure 06/18/2021 Appointment Cardiac Rehabilitation [facility] Start: 06-16-2021 End: 06-16-2021 Patient encounter procedure 06/16/2021 Appointment Cardiac Rehabilitation [facility] Start: 06-12-2021 End: 06-12-2021 Patient encounter procedure 06/12/2021 Appointment Cardiac Rehabilitation [facility] Start: 06-11-2021 End: 06-11-2021 Patient encounter procedure 06/11/2021 Appointment Cardiac Rehabilitation [facility] Start: 06-09-2021 End: 06-09-2021 Patient encounter procedure 06/09/2021 Appointment Cardiac Rehabilitation [facility] Start: 06-05-2021 End: 06-05-2021 Patient encounter procedure 06/05/2021 Appointment Cardiac Rehabilitation [facility] Start: 06-04-2021 End: 06-04-2021 Patient encounter procedure 06/04/2021 Appointment Cardiac Rehabilitation [facility] Start: 06-02-2021 End: 06-02-2021 Patient encounter procedure 06/02/2021 Appointment Cardiac Rehabilitation [facility] Start: 05-29-2021 End: 05-29-2021 Patient encounter procedure 05/29/2021 Appointment Cardiac Rehabilitation [facility] Start: 05-28-2021 Influenza vaccination Flu vaccine (# 1) [facility] Phone: Start: 05-28-2021 End: 05-28-2021 Patient encounter procedure 05/28/2021 Appointment Cardiac Rehabilitation [facility] Start: 05-26-2021 End: 05-26-2021 Patient encounter procedure 05/26/2021 Appointment Cardiac Rehabilitation [facility] Start: 05-22-2021 End: 05-22-2021 Patient encounter procedure 05/22/2021 Appointment Cardiac Rehabilitation [facility] Start: 05-21-2021 End: 05-21-2021 Patient encounter procedure 05/21/2021 Appointment Cardiac Rehabilitation [facility] Start: 05-19-2021 End: 05-19-2021 Patient encounter procedure 05/19/2021 Appointment Cardiac Rehabilitation [facility] Start: 05-15-2021 End: 05-15-2021 Patient encounter procedure 05/15/2021 Appointment Cardiac Rehabilitation [facility] Start: 05-14-2021 End: 05-14-2021 Patient encounter procedure 05/14/2021 Appointment Cardiac Rehabilitation [facility] Start: 05-12-2021 End: 05-12-2021 Patient encounter procedure 05/12/2021 Appointment Cardiac Rehabilitation [facility] Start: 05-08-2021 End: 05-08-2021 Patient encounter procedure 05/08/2021 Appointment Cardiac Rehabilitation [facility] Start: 05-07-2021 End: 05-07-2021 Patient encounter procedure 05/07/2021 Appointment Cardiac Rehabilitation [facility] Start: 05-05-2021 End: 05-05-2021 Patient encounter procedure 05/05/2021 Appointment Cardiac Rehabilitation [facility] Start: 05-01-2021 End: 05-01-2021 Patient encounter procedure 05/01/2021 Appointment Cardiac Rehabilitation [facility] Start: 04-30-2021 End: 04-30-2021 Patient encounter procedure 04/30/2021 Appointment Cardiac Rehabilitation [facility] Start: 04-28-2021 End: 04-28-2021 Patient encounter procedure 04/28/2021 Appointment Cardiac Rehabilitation [facility] Start: 04-24-2021 End: 04-24-2021 Patient encounter procedure 04/24/2021 Appointment Cardiac Rehabilitation [facility] Start: 04-23-2021 End: 04-23-2021 Patient encounter procedure 04/23/2021 Appointment Cardiac Rehabilitation [facility] Start: 04-21-2021 End: 04-21-2021 Patient encounter procedure 04/21/2021 Appointment Cardiac Rehabilitation [facility] Start: 04-17-2021 End: 04-17-2021 Patient encounter procedure 04/17/2021 Appointment Cardiac Rehabilitation [facility] Start: 04-16-2021 End: 04-16-2021 Patient encounter procedure 04/16/2021 Appointment Cardiac Rehabilitation [facility] Start: 04-14-2021 End: 04-14-2021 Patient encounter procedure 04/14/2021 Appointment Cardiac Rehabilitation [facility] Start: 04-10-2021 End: 04-10-2021 Patient encounter procedure 04/10/2021 Appointment Cardiac Rehabilitation [facility] Start: 2012 Screening for malign ant neoplasm of breast Breast cancer screen [facility] Phone: Start: 2012 Shingles Vaccine (1 of 2) Shingles Vaccine (1 of 2) [employer] Phone: Start: 2007 Screening for malign ant neoplasm of colon Colon cancer screen colonoscopy [facility] Phone: Start: 2002 Diabetes screen Diabetes screen [place] Phone: Start: 1992 Screening for malign ant neoplasm of cervix [facility] Phone: Start: 1983 Screening for malign ant neoplasm of cervix [facility] Phone: Start: 1981 DTaP/Tdap/Td vaccine (1 - Tdap) DTaP/Tdap/Td vaccine (1 - Tdap) [facility] Phone: Start: 1977 HIV screening HIV screen [facility] Work Phone: Start: 1974 COVID-19 Vaccine (1) COVID-19 Vaccin e (1) [employer] Work Phone: Start: 1972 Lipid panel Lipid screen [facility] Work Phone: Start: 1968 Pneumococcal 0-64 ye ars Vaccine (1 of 2 - PPSV23) Pneumococcal 0-64 years Vaccine (1 of 2 - PPSV23) [facility] Phone: Start: 1962 Creatinine measurement Creatinine mo nitoring [facility] Phone: Start: 1962 Hepatitis C screening Hepatitis C sc reen [facility] Phone: Start: 1962 Potassium monitoring Potassium monit oring [facility] Phone: CARDIAC PHASE II [facility] Work Phone: Comment on above: Ordered: 05/26/2021 Ordered: 05/28/2021 Ordered: 07/02/2021 Payers Date Payer Category Payer Unknown [id number] 2.16.8 [id number] 1962 Unknown [id number] 2.16.8 [id number] 1962 Unknown [id number] 2.16.8 [id number] 1962 Unknown [id number] 2.16.8 [id number] 1962 Unknown [id number] 2.16.8 [id number] 1962 Unknown [id number] 2.16.8 40.1.107007.3.579.2.173 1962 Unknown [id number] 2.16.8 40.1.159418.3.579.2.173 1962 Unknown [id number] 2.16.8 40.1.189268.3.579.2.173 1962 Unknown [id number] 2.16.8 40.1.689410.3.579.2.173 1962 Unknown [id number] 2.16.8 40.1.702526.3.579.2.173 1962 Unknown [id number] 2.16.8 40.1.527097.3.579.2.173 1962 Unknown [id number] 2.16.8 40.1.974541.3.579.2.173 1962 Unknown [id number] 2.16.8 40.1.365830.3.579.2.173 1962 Unknown [id number] 2.16.8 40.1.353511.3.579.2.173 1962 Unknown [id number] 2.16.8 40.1.365137.3.579.2.173 1962 Unknown [id number] 2.16.8 40.1.294359.3.579.2.173 1962 Unknown [id number] 2.16.8 40.1.027031.3.579.2.173 1962 Unknown [id number] 2.16.8 40.1.328811.3.579.2.173 1962 Unknown [id number] 2.16.8 40.1.308480.3.579.2.173 1962 Unknown [id number] 2.16.8 40.1.401065.3.579.2.173 1962 Unknown [id number] 2.16.8 40.1.939618.3.579.2.173 1962 Unknown [id number] 2.16.8 40.1.843840.3.579.2.173 1962 Unknown [id number] 2.16.8 40.1.073950.3.579.2.173 1962 Unknown [id number] 2.16.8 40.1.671491.3.579.2.173 1962 Unknown [id number] 2.16.8 40.1.269209.3.579.2.173 1962 Unknown [id number] 2.16. [id number] 1960 Unknown [id number] 2.16. [id number] 1960 Unknown [id number] 2.16. [id number] 1960 Unknown [id number] 2.16.84 [id number] 1960 Unknown [id number] 2.16.84 [id number] 1960 Unknown [id number] 2.16.84 [id number] 1960 Unknown [id number] 2.16.84 [id number] 1960 Unknown [id number] 2.16. [id number] 1960 Unknown [id number] 2.16.84 [id number] 1957 Medicaid [id number] 1957 Unknown [id number] Unknown Social History Date Type Detail Facility Start: 04-08-2021 Tobacco smoking stat us [facility] Current every day smoker [facility] Phone: History of tobacco use Cigarette Smoker [employer] Start: 04-08-2021 Cigarettes smoked current (pack per day) - Reported [facility] Phone: Comment on above: POP DAILY; 6 CIGS A DAY; Start: 04-08-2021 Tobacco use and exposure Never used [employer] Start: 04-08-2021 Alcohol intake Ex-drinker (finding) [facility] Phone: Start: 04-08-2021 Tobacco Comment 2 cigs a day [email or web address] Phone: Start: 1960 Sex Assigned At Not on file [employer] Phone: History of Present illness Narrative 04-08-2021 Dana Romero RN - 04/08/2021 11:00 AM EDT Note Date & Type Note Facility 04-08-2021 History of Present illness Narrative Cardiac Rehab Initial History and Assessment Fausto Corrigan 1960 04/08/2021 Primary Diagnosis: s/p PTCA Living Will: No On File: N/A Durable Power of Barrel Raiser Helper:No Medical History Past Medical History: Diagnosis Date [...] living? *If greater than 5 symptoms listed, forensic social worker notified. Cardiac Rehab Pre - [...] daily -smoking cessation documented in this encounter [employer] Phone: Summary Purpose Family History No Family [...] for follow-up. She had inferior ST elevation SC with primary revascularization of the RCA in [...] She has a history of previous inferior SC in February 2021 (late presenting SC) with PCI of the RCA at that [...] section and content) DATE CREATED AUTHOR 03/22/2018 [facility] DATE CREATED AUTHOR AUTHOR'S ORGANIZ ATION 04/18/2018 [facility] DATE CREATED AUTHOR AUTHOR'S ORGANIZ ATION 04/18/2018 [facility] DATE CREATED AUTHOR AUTHOR'S ORGANIZ ATION 04/08/2021 [facility] ical Center DATE CREATED AUTHOR AUTHOR'S ORGANIZ ATION 08/21/2021 [facility] DATE CREATED AUTHOR AUTHOR'S ORGANIZ ATION 10/19/2021 [facility] DATE CREATED AUTHOR AUTHOR'S ORGANIZ ATION 10/06/2022 [facility] ical Center DATE CREATED AUTHOR AUTHOR'S ORGANIZ ATION 10/07/2022 [employer] DATE CREATED AUTHOR AUTHOR'S ORGANIZ ATION 01/21/2023 [facility] DATE CREATED AUTHOR AUTHOR'S ORGANIZ ATION 01/18/2024 [facility] DATE CREATED AUTHOR AUTHOR'S ORGANIZ ATION 03/20/2024 [facility] dical Specialists [facility] FOR RECORDS PERTAINING TO PATIENTS [...] BE BASED ON THE PRIMARY CLINICAL RECORDS. [employer] provides no warranty or guarantee of the accuracy or completeness of information in this document.
[2024-06-27 12:10] LABS: Age Gdln ACOG Testing Note (.); HPV Aptima Negative (Negative); IGP, Aptima HPV, rfx 16/18,45 Note (.)
== END 2024-06-21 21:40 | disposition home or self-care (01) ==
LOC: LAB 21:39
PROVIDERS: PCP Nurse Practitioner; Visit Provider Nurse Practitioner
DX: N93.9 Abnormal uterine and vaginal bleeding, unspecified (principal)
CPT/HCPCS: 88175

== ENCOUNTER 2025-04-05 11:22 | Outpatient (OUT) | payer OTHER, SELFPAY ==
[2025-04-05 12:06] LABS: Microalbum Creatinine Ratio Ur 14.2 mg/g (0.0-29.9)
[2025-04-05 12:07] LABS: Hematocrit 47.0 % (36.0-48.0); Hemoglobin 15.3 g/dL (12.0-16.0); Immature Granulocytes Abs Auto 0.02 10^3/uL (0.00-0.03); Immature Granulocytes Pct Auto 0.2 % (0.0-0.5); Lymphocytes Absolute Auto 3.4 10^3/uL (1.2-3.8); Mean Corpuscular HGB Conc 32.6 g/dL (29.9-35.2); Mean Corpuscular Hemoglobin 30.2 pg (26.7-34.0); Mean Corpuscular Volume 92.9 fL (81.0-99.0); Platelet Count 205 10^3/uL (150-450); Red Blood Count 5.06 10^6/uL (4.20-5.40); White Blood Count 9.5 10^3/uL (4.0-11.0)
[2025-04-05 12:25] LABS: Glucose Urine UA 500 mg/dL (NEGATIVE)
[2025-04-05 12:33] LABS: Cast Seen? NONE SEEN #/LPF (NONE SEEN); Crystals Seen? None Seen #/HPF (None Seen)
[2025-04-05 12:45] LABS: Alanine Aminotransferase 22 U/L (14-59); Albumin Globulin Ratio 0.7; Albumin Level 3.0 g/dL (3.4-5.0); Alkaline Phosphatase 153 U/L (46-116); Anion Gap 9.5; Aspartate Amino Transferase 19 U/L (15-37); Blood Urea Nitrogen 16.0 mg/dL (7.0-18.0); Calcium 9.0 mg/dL (8.5-10.1); Carbon Dioxide 31.4 mmol/L (21.0-32.0); Chloride 105 mmol/L (98-107); Cholesterol 142 mg/dL (<=200); Estimated GFR (African America >60 (>=60 mL/min/1.73m^2); Estimated GFR (Non-African Ame >60 (>=60 mL/min/1.73m^2); Gamma Glutamyl Transpeptidase 12 U/L (8-55); Globulin 4.6 g/dL; Glucose 105 mg/dL (74-106); HDL Cholesterol 38 mg/dL (40-60); Sodium 143 mmol/L (136-145); Total Protein 7.6 g/dL (6.4-8.2); Triglycerides 173 mg/dL (<=150); VLDL CHOLESTEROL 34.6 mg/dL
[2025-04-05 13:03] LABS: Potassium 2.9 mmol/L (3.5-5.1)
== END 2025-04-05 11:23 | disposition home or self-care (01) ==
LOC: LAB 11:25
PROVIDERS: PCP Nurse Practitioner; Visit Provider Nurse Practitioner
DX: I12.9 Hypertensive chronic kidney disease with stage 1 through stage 4 chronic kidney disease, or unspecified chronic kidney disease (principal); N18.31 Chronic kidney disease, stage 3a; E88.01 Alpha-1-antitrypsin deficiency; J44.9 Chronic obstructive pulmonary disease, unspecified; I25.10 Atherosclerotic heart disease of native coronary artery without angina pectoris; K21.9 Gastro-esophageal reflux disease without esophagitis; E11.9 Type 2 diabetes mellitus without complications; R74.8 Abnormal levels of other serum enzymes
CPT/HCPCS: 36415; 80053; 80061; 81001; 82043; 82306; 82570; 82977; 85025

== ENCOUNTER 2025-05-09 08:45 | Inpatient (IN) | payer OTHER, SELFPAY ==
--- OUTSIDE RECORDS SUMMARY | 2023-12-08 06:43 | XMS_ITS ---
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 Name Role Phone Veronique Harris CNP Primary Care Provider Jimbo Lo Unavailable [phone] REASON FOR VISIT PET Scan No Shows Encounters Encounter Location Date Provider Diagnosis Pulmonary Medicine [place] [address] [place] [address] 12/08/2023 Jimbo Lock Plan Of Treatment No Information Progress Notes * Em CORRIGAN MDOB:1960 (63 yo F)Acc No.[id number]:12/08/2023 Patient: Anni shipmanEm :1960 A ge:63 Y S ex:Female Address:[address] [place] [address] [address], [place], [address] * true * Date: Generated for Ruddy arredondo/Chastity/eTransmitting on: 0 05/09/2025 08:50 AM EDT
--- OUTSIDE RECORDS SUMMARY | 2024-04-06 09:43 | XMS_ITS ---
Author Organization [facility] in [place] Address [address] [place] [address] Care Team Providers Care Personnel Manager Name Role Phone Veronique Harris CNP Primary Care Provider Jimbo Lo Unavailable [phone] REASON FOR VISIT Appointment Reschedule Encounters Encounter Location Date Provider Diagnosis Pulmonary Medicine [place] [address] [place] [address] 04/06/2024 Jimbo oLck Plan Of Treatment No Information Progress Notes * Em CORRIGAN MDOB:1960 (63 yo F)Acc No.[id number]:04/06/2024 Patient: Anni ECHEVERRIAEm :1960 A ge:63 Y S ex:Female Address:[address] [place] [address] [address], [place], [address] * true * Date: Generated for Ruddy arredondo/Chastity/eTransmitting on: 0 05/09/2025 08:51 AM EDT
--- OUTSIDE RECORDS SUMMARY | 2024-08-07 06:20 | XMS_ITS ---
Author Organization [facility] [place] Address [address] [place] [address] Care Team Providers Care Jig Box Operator Name Role Phone Veronique Harris CNP Primary Care Provider Jimbo Lo Unavailable [phone] REASON FOR VISIT 1YEAR-COPD Encounters Encounter Location Date Provider Diagnosis Pulmonary Medicine [place] [address] [place] [address] 08/07/2024 Jimbo Lock Plan Of Treatment No Information Progress Notes * Em CORRIGAN MDOB:1960 (64 yo F)Acc No.[id number]:08/07/2024 UNLOCKED PROGRESS NOTE Follow Up Patient: Em BRAND Provider: Jaiden Lock DO :1960 A ge:64 Y S ex:Female Date:08/07/2024 Address:[address] [place], [place] [address] Pcp:Veronique Harris CNP Subjective: * Chief Complaints: * 1 . 1YEAR-COPD. * Medical History: Objective: * Vitals: Assessment: Plan: * Treatment: * * Electronic signature of Angela Lock DO on 05/09/2025 at 08:50 AM EDT Sign off status: Pending Visit Status: O FF CANC (OFFICE CANCEL) * Provider: Jaiden Lock DO Date: 10/07/2023 Generated for Printi ng/Faxing/eTransmitting on: 0 05/09/2025 08:50 AM EDT
[2025-05-09] VITALS (8 sets, daily range): BP systolic 100–154; BP diastolic 51–77; PULSE 87–94; TEMP 36.4–38.1; O2SAT 82–97; BMI 27.3; BMI 25.2
--- OUTSIDE RECORDS SUMMARY | 2025-05-09 08:50 | XMS_ITS | Encounter Summary ---
Author Organization [facility] Address [address] [place] [address] Care Team Providers Care Parts Analyst Name Role Phone Stuart Deluca MD Primary Care Provider [phone] Veronique Harris ROTARY DERRICK OPERATOR Unavailable [phone] ParveenJany venegas JEWELLERY DESIGNER Unavailable [phone] Marta Doll ENGINEERING PRODUCTION WORKER Unavailable Jb Valdez MA Unavailable [phone] Reason for Visit * Reason Onset Date Comments Med Refill ER Follow-up 04/06/2024 Encounter Details Date Type Department Care Team (Late st Contact Info) Description 04/06/2024 Refill [facility] [address] [place] [address] Veronique Harris NP [address] [place] [address] Controlled type 2 diabetes mellitus without complication, without long-term current use of insulin ([facility]); Primary hypertension ; Gastroesophageal reflux disease without esophagitis; Other specified hypothyroidism ; Mixed hyperlipidemia Social History Tobacco Use Types Packs/Day Years Used Date Smoking Tobacco: Every Day Cigarettes Alcohol Use Standard Drinks/Week Comments Not Currently 0 (1 standard drink = 0.6 oz pur e alcohol) caffeine 2-3 cups per day Comments Unknown Sex and Gender Information Value Date Recorded Sex Assigned at Not on file Legal Sex Female 7:47 PM EDT Gender Identity Not on file Sexual Orientation Not on file documented as of this encounter Miscellaneous Notes * Telephone Encounter - Carmel Thompson - 04/10/2024 8:26 AM EDT Patient does not want an ER follow up appointment. 04/10/24 JN documented in this encounter Plan of Treatment Upcoming Encounters Date Type Department Care Team (Late st Contact Info) Description 07/11/2025 9:40 AM EDT Office Visit [facility] [address] [place] [address] Veronique Harris NP [address] [place] [address] documented as of this encounter Visit Diagnoses Diagnosis Controlled type 2 diabetes mellitus without complication, without long-term current use of insulin (HCC) Primary hypertension Unspecified essential hypertension Gastroesophageal reflux disease without esophagitis Esophageal reflux Other specified hypothyroidism Mixed hyperlipidemia Mixed hyperlipidemia documented in this encounter Care Teams Parts Analyst Relationship Specialty Start Date End Date Stuart Deluca MD [address] [place] [address] PCP - General Family Medicine 03/17/23 Veronique Harris NP [address] [place] [address] PCP - [facility] 03/27/24 Jany Saini LSW [address] [place] [address] Career Services Representative Family Medicine 07/25/24 07/27/24 Marta Doll LPN [address] [place] [address] Licensed Practical Nurse Family Medicine 07/27/2406/29 Jb Valdez, DE [address] [place] [address] Family Medicine 07/27/24 documented as of this encounter
--- OUTSIDE RECORDS SUMMARY | 2025-05-09 08:50 | XMS_ITS | Encounter Summary ---
Author Organization [facility] Address [address] [place] [address] Care Team Providers Care Hvac Journeyman Name Role Phone Stuart Deluca MD Primary Care Provider Veronique Harris NP Unavailable [phone] Jany Saini POLICE DISTRICT SWITCHBOARD OPERATOR Unavailable [phone] Sharmila Marta COAL PULVERIZER OPERATOR Unavailable Jb Valdez MA Unavailable [phone] Encounter Details Date Type Department Care Team (Late Contact Info) Description 04/10/2024 Orders Only [facility] [address] [place] [address] Veronique Harris, ANNA [address] [place] [address] Social History Tobacco Use Types Packs/Day Years [...] on file documented as of this encounter Plan of Treatment Upcoming Encounters Date Type Department Care Team (Late Contact Info) Description 07/11/2025 9:40 AM EDT Office Visit [facility] [address] [place] [address] Veronique Harris, ANNA [address] [place] [address] documented as of this encounter Procedures Procedure Name Priority Date/Time Associated Diagnosis Comments XR SHOULDER RT 2V OR > Routine 04/10/2024 9:12 AM EDT documented in this encounter Results * XR SHOULDER RT 2V OR > (04/10/2024 9:12 AM EDT) Anatomical Region Laterality Modality Radiographic Latisha ging Veronique Harris MEDIA PROMOTER IMG XR PROCEDURES Final Result documented in this encounter Visit Diagnoses Not on filedocumented in this encounter Care Teams Hvac Journeyman Relationship Specialty Start Date End Date Stuart Deluca MD [address] [place] [address] PCP - General Family Medicine 03/17/23 Veronique Harris NP [address] [place] [address] PCP - [facility] 03/27/24 Jany Saini, JADE [address] [place] [address] Systems Programmer Family Medicine 07/25/24 07/27/24 Marta Doll LPN [address] [place] [address] Licensed Practical Nurse Family Medicine 07/27/2406/29 Jb Valdez, TREVOR [address] [place] [address] Family Medicine 07/27/24 documented as of this encounter
--- OUTSIDE RECORDS SUMMARY | 2025-05-09 08:50 | XMS_ITS | Encounter Summary ---
Author Organization [facility] Address [address] [place] [address] Care Team Providers Care Printing Machine Mechanic Name Role Phone Stuart Deluca MD Primary Care Provider [phone] Veronique Harris ENGINE HEAD REPAIRER Unavailable [phone] Parveen Jany HEALTH CARE RECRUITER Unavailable [phone] Marta Doll SENSITIZER Unavailable Jb Valdez MA Unavailable [phone] Encounter Details Date Type Department Care Team (Late st Contact Info) Description 03/20/2024 Orders Only [facility] [address] [place] [address] Veronique Harris NP [address] [place] [address] Social History Tobacco Use Types Packs/Day Years [...] on file documented as of this encounter Functional Status * Over the past 2 weeks, how often have you been bothered by any of the following problems? Question Answer Date of Assessment Author Little interest or pleasure in doing things Not at all 03/20/2024 10:09 AM EDT NATALIA AMEZQUITA Feeling down, depressed, or hopeless Not at all 03/20/2024 10:09 AM EDT NATALIA AMEZQUITA Patient Health Questionnaire -2 Score 0 03/20/2024 10:09 AM EDT NATALIA AMEZQUITA documented as of this encounter Plan of Treatment Upcoming Encounters Date Type Department Care Team (Late st Contact Info) Description 07/11/2025 9:40 AM EDT Office Visit [facility] [address] [place] [address] Veronique Harris NP [address] [place] [address] documented as of this encounter Procedures Procedure Name Priority Date/Time Associated Diagnosis Comments COLONOSCOPY Routine 03/20/2024 5:31 PM EDT documented in this encounter Results * Colonoscopy (03/20/2024 5:31 PM EDT) Anatomical Region Laterality Modality Endoscopy Veronique Harris ENGINE HEAD REPAIRER ENDOSCOPY PROCEDURE ORDERABLES Final Result documented in this encounter Visit Diagnoses Not on filedocumented in this encounter Care Teams Printing Machine Mechanic Relationship Specialty Start Date End Date Stuart Deluca MD [address] [place] [address] PCP - General Family Medicine 03/17/23 Veronique Harris NP [address] [place] [address] PCP - [facility] 03/27/24 Jany Saini LSW [address] [place] [address] Swim Coach Family Medicine 07/25/24 07/27/24 Marta Doll LPN [address] [place] [address] Licensed Practical Nurse Family Medicine 07/27/2406/29 Jb Valdez, MA [address] [place] [address] Family Medicine 07/27/24 documented as of this encounter
--- OUTSIDE RECORDS SUMMARY | 2025-05-09 08:50 | XMS_ITS | Encounter Summary ---
Author Organization [facility] Address [address] [place] [address] Care Team Providers Care Barrel Rifler Name Role Phone Stuart Deluca MD Primary Care Provider Veronique Harris NP Unavailable [phone] Jany Saini DIRECTOR OF DIRECT MARKETING Unavailable Sharmila Marta ACTIVITY THERAPY TEACHER Unavailable Jb Valdez MA Unavailable [phone] Encounter Details Date Type Department Care Team (Late Contact Info) Description 04/18/2024 Orders Only [facility] [address] [place] [address] Veronique Harris, ANNA [address] [place] [address] Social History Tobacco Use Types [...] 07/11/2025 9:40 AM EDT Office Visit [facility] [address] [place] [address] Veronique Harris, ANNA [address] [place] [address] documented as of this encounter Procedures Procedure Name Priority Date/Time Associated Diagnosis Comments SCANNED LABS Routine 04/18/2024 12:57 PM EDT documented in this encounter Results * SCANNED LABS (04/18/2024 12:57 PM EDT) Veronique Harris PRODUCTION CONTROL ANALYST LAB CHG PERFORMABLES Final Resu lt documented in this encounter Visit Diagnoses Not on filedocumented in this encounter Care Teams Barrel Rifler Relationship Specialty Start Date End Date Stuart Deluca MD [address] [place] [address] PCP - General Family Medicine 03/17/23 Veronique Harris NP [address] [place] [address] PCP - [facility] 03/27/24 Jany Saini, JADE [address] [place] [address] Student Services Director Family Medicine 07/25/24 07/27/24 Marta Doll LPN [address] [place] [address] Licensed Practical Nurse Family Medicine 07/27/2406/29 Jb Valdez MA [address] [place] [address] Family Medicine 07/27/24 documented as of this encounter
--- OUTSIDE RECORDS SUMMARY | 2025-05-09 08:50 | XMS_ITS | Encounter Summary ---
Author Organization [facility] Address [address] [place] [address] Care Team Providers Care Glove Turner And Former Name Role Phone Stuart Deluca MD Primary Care Provider [phone] Veronique Harris NP Unavailable [phone] Jany Saini DIE CASTING MACHINE SETTER Unavailable [phone] Sharmila Marta SILK SCREEN REPAIRER Unavailable Jb Valdez MA Unavailable [phone] Encounter Details Date Type Department Care Team (Late Contact Info) Description 02/14/2024 Orders Only [facility] [address] [place] [address] Veronique Harris, ANNA [address] [place] [address] Social History Tobacco Use Types [...] 07/11/2025 9:40 AM EDT Office Visit [facility] [address] [place] [address] Veronique Harris, ANNA [address] [place] [address] documented as of this encounter Procedures Procedure Name Priority Date/Time Associated Diagnosis Comments MAMMOGRAM, BILATERAL, SCREEN:* Routine 02/14/2024 8:54 AM EDT documented in this encounter Results * MAMMOGRAM, BILATERAL, SCREEN:* (02/14/2024 8:54 AM EDT) Anatomical Region Laterality Modality Radiographic Latisha ging Veronique Harris SCREEN AND CYCLONE REPAIRER IMG XR PROCEDURES Final Result documented in this encounter Visit Diagnoses Not on filedocumented in this encounter Care Teams Glove Turner And Former Relationship Specialty Start Date End Date Stuart Deluca MD [address] [place] [address] PCP - General Family Medicine 03/17/23 Veronique Harris NP [address] [place] [address] PCP - [facility] 03/27/24 Jany Saini, JADE [address] [place] [address] Cash Management Specialist Family Medicine 07/25/24 07/27/24 Marta Doll LPN [address] [place] [address] Licensed Practical Nurse Family Medicine 07/27/2406/29 Jb Valdez MA [address] [place] [address] Family Medicine 07/27/24 documented as of this encounter
--- OUTSIDE RECORDS SUMMARY | 2025-05-09 08:50 | XMS_ITS | Clinical Summary ---
Author Organization [facility] tem Address [id number] [address] [place] [address] Care Team Providers Care Joint Terminal Attack Controller Name Role Phone Veronique Harris LIV-COLOR CHECKER Primary Care Provider Allergies Active Allergy Reactions Criticality Noted Date Comments Sulfa (Sulfonamide Antibiotics) 06/28 Medications aspirin 81 mg Take 1 tablet (81 mg total) by mouth in the morning. Active cyclobenzaprine (FLEXERIL) 10 mg tablet Take 1 tablet (10 mg total) by mouth 2 (two) times a day as needed for muscle spasms. 10 tablet 07/20/2024 Active Social History Tobacco Use Types Packs/Day Years Used Date Smoking Tobacco: Every Day Cigarettes Smokeless Tobacco: Never Tobacco Cessation:Ready to Q uit: Not Asked; Counseling Given: Not Answered Alcohol Use Standard Drinks/Week Comments Never 0 (1 standard drink = 0.6 oz pur e alcohol) Childcare Answer Date Recorded Childcare Unknown 03/08/2019 Employment Answer Date Recorded Employment Unknown 03/08/2019 Comments Unknown Sex and Gender Information Value Date Recorded Sex Assigned at Not on file Legal Sex Female 11:22 AM EDT Gender Identity Not on file Sexual Orientation Not on file Last Filed Vital Signs Vital Sign Reading Time Taken Comments Blood Pressure 149/81 07/20/2024 6:59 PM EDT Pulse 77 07/20/2024 6:59 PM EDT Temperature 37 C (98.6 F) 07/20/2024 6:59 PM EDT Respiratory Rate 20 07/20/2024 6:59 PM EDT Oxygen Saturation 99% 07/20/2024 6:59 PM EDT Inhaled Oxygen Concentration - - Weight 59 kg (130 lb) 07/20/2024 6:59 PM EDT Height 158.8 cm (5' 2.5 ) 07/20/2024 6:59 PM EDT Body Mass Index 23.4 07/20/2024 6:59 PM EDT Plan of Treatment Health Maintenance Due Date Last Done Comments Tobacco Counseling 1960 Depression Screening 1974 DTaP,Tdap and Td Vaccines (1 - Tdap) 1981 Pap Smear 1983 Zoster (Shingles) Vaccine (1 of 2) 2012 Influenza Vaccine 05/28/2025 Adult BMI Screening 07/20/2025 07/20/2024 Tobacco Screening 07/20/2025 07/20/2024 Medical Devices Not on file Insurance [facility] MEDICAID AUTO INSURANCE [facility] MEDICAID Care Teams Joint Terminal Attack Controller Relationship Specialty Start Date End Date Veronique Harris, SUPERVISOR METER SHOP-COLOR CHECKER PCP - General Nurse Practitioner 07/20/24
--- OUTSIDE RECORDS SUMMARY | 2025-05-09 08:50 | XMS_ITS | Encounter Summary ---
Author Organization [facility] Address [address] [place] [address] Care Team Providers Care Global Safety Officer Name Role Phone Stuart Deluca MD Primary Care Provider [phone] Veronique Harris NP Unavailable [phone] Jany Saini THEATRE ARTS PROFESSOR Unavailable [phone] SharmilaMarta TUGGER OPERATOR Unavailable Jb Valdez MA Unavailable [phone] Reason for Visit * Reason Comments Med Refill Encounter Details Date Type Department Care Team (Late Contact Info) Description 02/29/2024 Refill [facility] [address] [place] [address] Veronique Harris NP [address] [place] [address] Social History Tobacco Use Types [...] 07/11/2025 9:40 AM EDT Office Visit [facility] [address] [place] [address] Veronique Harris, ANNA [address] [place] [address] documented as of this encounter Visit Diagnoses Not on filedocumented in this encounter Care Teams Global Safety Officer Relationship Specialty Start Date End Date Stuart Deluca MD [address] [place] [address] PCP - General Family Medicine 03/17/23 Veronique Harris NP [address] [place] [address] PCP - [facility] 03/27/24 Jany Saini LSW [address] [place], [place] [address] Veterinary Livestock Inspector Family Medicine 07/25/24 07/27/24 Marta Doll LPN [address] [place] [address] Licensed Practical Nurse Family Medicine 07/27/2406/29 Jb Valdez, MA [address] [place] [address] Family Medicine 07/27/24 documented as of this encounter
--- OUTSIDE RECORDS SUMMARY | 2025-05-09 08:50 | XMS_ITS | Encounter Summary ---
Author Organization [facility] Address [address] [place] [address] Care Team Providers Care Bullet Assembly Press Operator Name Role Phone Stuart Deluca MD Primary Care Provider [phone] Veronique Harris SMUDGER Unavailable [phone] Jany Saini WATCH ASSEMBLER Unavailable [phone] SharmilaMarta MANAGER RADIATION Unavailable Jb Valdez MA Unavailable [phone] Reason for Visit * Reason Comments Med Refill Encounter Details Date Type Department Care Team ([facility] Contact Info) Description 02/29/2024 Refill [facility] [address] [place] [address] Veronique Harris NP [address] [place] [address] Mixed hyperlipidemia ; Controlled type 2 diabetes mellitus without complication, without long-term current use of insulin (HCC); Other specified hypothyroidism ; Primary hypertension Social History Tobacco Use Types Packs/Day Years [...] Upcoming Encounters Date Type Department Care Team ([facility] Contact Info) Description 07/11/2025 9:40 AM EDT Office Visit [facility] [address] [place] [address] Veronique Harris NP [address] [place] [address] documented as of this encounter Visit Diagnoses Diagnosis Mixed hyperlipidemia Mixed hyperlipidemia Controlled type 2 diabetes mellitus without complication, without long-term current use of insulin (HCC) Other specified hypothyroidism Primary hypertension Unspecified essential hypertension documented in this encounter Care Teams Bullet Assembly Press Operator Relationship Specialty Start Date End Date Stuart Deluca MD [address] [place] [address] PCP - General Family Medicine 03/17/23 Veronique Harris NP [address] [place] [address] PCP - [facility] 03/27/24 Jany Saini, JADE [address] [place] [address] Security Patrol Driver Family Medicine 07/25/24 07/27/24 Marta Doll LPN [address] [place] [address] Licensed Practical Nurse Family Medicine 07/27/2406/29 Jb Valdez, TREVOR [address] [place] [address] Family Medicine 07/27/24 documented as of this encounter
--- OUTSIDE RECORDS SUMMARY | 2025-05-09 08:51 | XMS_ITS | Encounter Summary ---
Author Organization [facility] Address [address] [place] [address] Phone Care Team Providers Care Director Of Consulting Services Name Role Phone Dandre Mills MD Primary Care Provider [phone] Veronique Harris Primary Care Provider Encounter Details Date Type Department Care Team (Late st Contact Info) Description 06/17/2022 Orders Only [facility] [address] [place] [address] Conversion, Onbase Social History Tobacco Use Types Packs/Day Years Used Date Smoking Tobacco: Never Assessed Comments Unknown Sex and Gender Information Value Date Recorded Sex Assigned at Not on file Legal Sex Female 11:16 AM EST Gender Identity Not on file Sexual Orientation Not on file documented as of this encounter Plan of Treatment Upcoming Encounters Date Type Department Care Team (Late st Contact Info) Description 05/10/2025 2:45 PM EDT Office Visit [place] [id number] [facility] [address] [place] [address] Curtis Wiggins MD [address] [facility] [address] [place] [address] Scheduled Orders Name Type Priority Associated Diagnoses Orde r Schedule OUTSIDE LAB SCAN Lab Ordered: 06/17/2022 documented as of this encounter Visit Diagnoses Not on filedocumented in this encounter Care Teams Director Of Consulting Services Relationship Specialty Start Date End Date Dandre Mills MD [address] [facility] [place] [address] PCP - General 04/16/21 10/05/22 Veronique Harris, VACUUM EVAPORATION OPERATOR-SLIME PLANT OPERATOR HELPER [address] [place] [address] PCP - General 10/06/22 documented as of this encounter
--- OUTSIDE RECORDS SUMMARY | 2025-05-09 08:51 | XMS_ITS | Encounter Summary ---
Author Organization [facility] Address [address] [place] [address] Care Team Providers Care Umbrella Frame Maker Name Role Phone Stuart Deluca MD Primary Care Provider Veronique Harris NP Unavailable [phone] Jb Valdez MA Unavailable [phone] Encounter Details Date Type Department Care Team ([facility] Contact Info) Description 11/09/2024 Orders Only [facility] [address] [place] [address] Veronique Harris NP [address] [place] [address] Social History Tobacco Use Types Packs/Day Years [...] 07/11/2025 9:40 AM EDT Office Visit [facility] [address] [place] [address] Veronique Harris NP [address] [place] [address] documented as of this encounter Procedures Procedure Name Priority Date/Time Associated Diagnosis Comments SCANNED LABS Routine 11/09/2024 9:53 AM EST documented in this encounter Results * SCANNED LABS (11/09/2024 9:53 AM EST) Veronique Harris AUTOMOBILE BODY CUSTOMIZER LAB CHG PERFORMABLES Final Resu lt documented in this encounter Visit Diagnoses Not on filedocumented in this encounter Care Teams Umbrella Frame Maker Relationship Specialty Start Date End Date Stuart Deluca MD [address] [place] [address] PCP - General Family Medicine 03/17/23 Veronique Harris NP [address] [place] [address] PCP - [facility] 03/27/24 Jb Valdez MA [address] [place] [address] Family Medicine 07/27/24 documented as of this encounter
--- OUTSIDE RECORDS SUMMARY | 2025-05-09 08:51 | XMS_ITS ---
Author Organization [facility] Address [address] [place] [address] Care Team Providers Care Assembler Dc Field Yoke Name Role Phone Stuart Deluca MD Primary Care Provider [phone] Veronique Harris NP Unavailable [phone] Jb Valdez MA Unavailable [phone] Chronic Care Management (CCM) Status:Enrolled (Active) Start date:07/25/2024 Enrollment date:07/27/2024 Enrollment reason:Identified from transitional care managment Overview Please assess for Care Management needs. 07/27/24, 10:55 AM - Jb Valdez MA- Patient gives verbal consent to be enrolled in CCM Program and understands there could be a bill for this service. Case Team Name Relationship Phone Jb Valdez MA(Responsible Staff) [phone] Continued Care and Services Coordination
--- OUTSIDE RECORDS SUMMARY | 2025-05-09 08:51 | XMS_ITS | Patient Health Record ---
Author Organization [facility] [place] Address [address] [place] [address] Care Team Providers Care Armature Varnisher Name Role Phone Veronique Harris CNP Primary Care Provider Unavail able Jimbo Lock Unavailable [phone] Allergies Allergen (clinical drug ingredient) Drug/Non Drug Allergy documented on EMR Reaction Allergy Type Onset Date Status Levaquin Unknown Drug Allergy Active Substance with sulfonamide structure and antibacterial mechanism of action (substance) Sulfa Antibiotics rash Drug Allergy Active Reason For Referral No Information Medications Medication SIG (Take, Route, Frequency, Duration) Notes Start Date End Date Status Albuterol Sulfate (2.5 MG/3ML) 0.083% 3mL Inhalation QID for 30 days Active Atorvastatin Calcium 80 MG Oral for 28 Days Active Jardiance 25 MG Oral for 28 Days Active Levothyroxine Sodium 125 MCG Oral for 28 Days Active Lisinopril 10 MG Oral for 28 Days Active Metoprolol Tartrate 25 MG Oral for 28 Days Active Ventolin HFA 108 (90 Base) MCG/ACT 2 puffs as needed for SOB Inhalation Q4H for 90 days Active Symbicort 160-4.5 MCG/ACT 2 puffs Inhala tion BID for 90 days Active Nitroglycerin 0.4 MG as directed Sublingual 2022 Active Pantoprazole Sodium 40 MG Oral for 28 Days Active Montelukast Sodium 10 MG 1 tablet Oral Q D for 90 days Active Pioglitazone HCl 15 MG Oral for 28 Days Active Sucralfate 1 GM Oral for 28 Days Active Social History Tobacco Use: Social History Observation Description Date Details (start date - stop date) Current Smoker NA - NA Tobacco Use/Smoking Question Answer Notes Patient is a current smoker How often do you smoke cigarettes? every day How many cigarettes a day do you smoke? 5 or les s Additional Findings: Tobacco User Light cigarett e smoker ((1-9 cigs/day) Problems Problem Type SNOMED Code ICD Code Onset Dates Problem Status W/U Status Risk Notes Problem 759077209 Obesity, unspecified (E66.9) Active confirmed Problem Allergic rhinitis caused by pollen (disorder) (77725158) Allergic rhinitis due to pollen (J30.1) Active confirmed Problem Centrilobular emphysema (33330552) Centrilobular emphysema (J43.2) Active confirmed Problem Long-term current use of inhaled steroid (231066559) long-term (current) use of inhaled steroids (Z79.51) Active confirmed Problem Diabetes mellitus type 2 (disorder) (94329098) DM2 (diabetes mellitus, type 2) (E11.9) Active confirmed Problem 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) Cigarette nicotine dependence with nicotine-induced disorder (F17.219) Active confirmed Problem Multiple pulmonary nodules (538053787) Multiple pulmonary nodules (R91.8) Active confirmed Problem 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 Plan Of Treatment No Information Insurance Providers Payer Name Payer Address Payer Phone Subscriber Number Group Number Insured Name Patient Relationship to Insured Coverage Start Date Coverage End Date [employer] [place] MEDICAID [address] [place] [address] [id number] Em Corrigan Self - patient is the insured Medical (General) History Medical History History ICD Code Centrilobular emphysema J43.2 AAT (gweca-5-phfzvegeutb) deficiency E88 .01 CAD (coronary artery disease) I25.10 Allergic rhinitis due to pollen J30.1 Cigarette nicotine dependence with nicot ine-induced disorder F17.219 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
--- OUTSIDE RECORDS SUMMARY | 2025-05-09 08:51 | XMS_ITS | Encounter Summary ---
Author Organization [facility] Address [address] [place] [address] Care Team Providers Care Coil Connector Name Role Phone Stuart Deluca MD Primary Care Provider Veronique Harris NP Unavailable [phone] Jb Valdez MA Unavailable [phone] Encounter Details Date Type Department Care Team ([facility] Contact Info) Description 01/05/2025 Orders Only [facility] [address] [place] [address] Veronique Harris NP [address] [place] [address] Social History Tobacco Use Types Packs/Day Years Used Date Smoking Tobacco: Every Day Cigarettes 0.3 20 Alcohol Use Standard Drinks/Week Comments Not Currently [...] 07/11/2025 9:40 AM EDT Office Visit [facility] [address] [place] [address] Veronique Harris, ANNA [address] [place] [address] documented as of this encounter Visit Diagnoses Not on filedocumented in this encounter Care Teams Coil Connector Relationship Specialty Start Date End Date Stuart Deluca MD [address] [place] [address] PCP - General Family Medicine 03/17/23 Veronique Harris NP [address] [place] [address] PCP - [facility] 03/27/24 Jb Valdez MA [address] [place] [address] Family Medicine 07/27/24 documented as of this encounter
--- OUTSIDE RECORDS SUMMARY | 2025-05-09 08:51 | XMS_ITS | Clinical Summary ---
Author Organization [facility] Address [address] [place], [place] [address] Care Team Providers Care Inspector Casing Name Role Phone Aguila Malagon Charli Primary Care Provider [phone] Allergies Active Allergy Reactions Criticality Noted Date Comments Sulfa (Sulfonamide Antibiotics) Hives,Anaphylaxis 06/07/2017 Medications oxyCODONE-aceta minophen (PERCOCET) 5-325 mg tablet Take 1 tablet by mouth every 4 hours as needed. Active acetaminophen (TYLENOL EXTRA STRENGTH) 500 mg tablet Take 1,000 mg by mouth every 8 hours as needed. Active ranitidine (ZANTAC) 150 mg tablet Take 150 mg by mouth twice daily. Active docusate sodium (STOOL SOFTENER) 100 mg capsule Take 100 mg by mouth three times daily. Active albuterol (PROVENTIL) 2.5 mg /3 mL (0.083 %) nebulizer solution inhale contents of 1 vial in nebulizer four times a day if needed 0 7 Active doxycycline hyclate (VIBRAMYCIN) 100 mg capsule Take 100 mg by mouth twice daily. 0 7 Active predniSONE (DELTASONE) 10 mg tablet take 4 tablets by mouth once daily for 3 days then 3 tablets once... (REFER TO PRESCRIPTION NOTES). 0 7 Active atenolol-chlort halidone (TENORETIC) 50-25 mg per tablet Take 1 tablet by mouth once daily. 0 7 Active fluticasone-rose marie meterol (ADVAIR) 500-50 mcg/dose dsdv Inhale 1 Puff as instructed twice daily. Rinse mouth out after use 1 Inhaler 11 7 Active albuterol HFA (PROVENTIL HFA) 90 mcg/actuation inhaler Inhale 2 Puffs as instructed every 4 hours as needed (for shortness of breath and wheezing.). 1 Inhaler 5 7 Active albuterol HFA (PROVENTIL HFA, VENTOLIN HFA) 90 mcg/actuation inhaler Inhale 1-2 Puffs as instructed every 4 hours as needed for Wheezing/Shortne ss of Breath. 1 Inhaler 2 7 Active Active Problems Problem Noted Date Diagnosed Date Colovaginal fistula 06/08/2017 Overview (06/08/2017): Added automatically from request for surgery [id number] Family History Medical History Relation Comments Cancer Father HTN Father Heart Disease Father Cancer Mother heart disease Mother Relation Status Comments Father Mother Social History Tobacco Use Types Packs/Day Years Used Date Smoking Tobacco: Former Cigarettes 0 06/07/1997 - 06/26/2017 Smokeless Tobacco: Never Comments:smokes 3-4 daily Alcohol Use Standard Drinks/Week Comments No 0 (1 standard drink = 0.6 oz pur e alcohol) Area Deprivation Index Answer Date Baron rded National Score (1-100), lower number is lower ri sk Not on file 09/04/2020 State Score (1-10), lower number is lower risk N ot on file 09/04/2020 Data from: https://www.neighborhoodatlas.medicine.[facility].edu/. Last address used for calculation Not on file 09/04/2020 Comments No Sex and Gender Information Value Date Recorded Sex Assigned at Not on file Legal Sex Female 1:29 PM EDT Gender Identity Not on file Sexual Orientation Not on file Last Filed Vital Signs Vital Sign Reading Time Taken Comments Blood Pressure 120/69 07/26/2017 5:02 PM EDT Pulse 75 07/26/2017 5:02 PM EDT Temperature 36.4 C (97.6 F) 07/26/2017 3:41 PM EDT Respiratory Rate 12 03/17/2018 12:55 PM EDT Oxygen Saturation 96% 07/26/2017 5:02 PM EDT Inhaled Oxygen Concentration - - Weight 73 kg (161 lb) 03/17/2018 12:55 PM EDT Height 149.9 cm (4' 11 ) 03/17/2018 12:55 PM EDT Body Mass Index 32.52 03/17/2018 12:55 PM EDT Plan of Treatment Health Maintenance Due Date Last Done Comments Anxiety Screening 1980 Depression Screening 1980 HIV Screening 1980 Hepatitis C Screening 1980 DTaP,Tdap,Td Vaccine (1 - Tdap) 1981 Cervical Cancer Screening [address] Colonography 2007 Cologuard (FIT-DNA) 2007 Colonoscopy 2007 Colorectal Cancer Screening 2007 Fecal Occult Blood 2007 Lipid Screening 2007 Sigmoidoscopy 2007 Pneumococcal Vaccine: 50+ (1 of 1 - PCV) 2012 Shingrix Vaccine (1 of 2) 2012 Diabetes Screening 07/26/2020 07/26/2017 Influenza Vaccine (#1) 2025 7 (Patient/Parent/Guardian Counseled and Declines) RSV Vaccine (1 - 1-dose 75+ series) 2037 Procedures Procedure Name Priority Date/Time Associated Diagnosis Comments COMPREHENSIVE METABOLIC PANEL Routine 07/26/2017 10:48 AM EDT Colovaginal fistula from Last 3 Months or Most Recently Relevant to Health Maintenance Results * (ABNORMAL) COMP METABOLIC PANEL (07/26/2017 10:48 AM EDT) Protein, Total 7.5 6.3 - 8.0 g/dL 07/26/2017 1:40 PM EDT [facility] Albumin 4.3 3.9 - 4.9 g/dL 07/26/2017 1:40 PM EDT [facility] Calcium 9.8 8.5 - 10.2 mg/dL 07/26/2017 1:40 PM EDT [facility] Bilirubin, Total 0.2 0.2 - 1.3 mg/dL 07/26/2017 1:40 PM EDT [facility] Alkaline Phosphatase 96 32 - 117 U/L 07/26/2017 1:40 PM EDT [facility] AST 16 13 - 35 U/L 07/26/2017 1:40 PM EDT [facility] Glucose 133(H) 74 - 99 mg/dL 07/26/2017 1:40 PM [facility] Comment: The [place] Diabetes Association (ADA) provides guidance for cutoff values for fasting glucose and random glucose. The ADA defines fasting as no caloric intake for at least 8 hours. Fasting plasma glucose results between 100 to 125 mg/dL indicate increased risk for diabetes (prediabetes). Fasting plasma glucose results greater than or equal to 126 mg/dL meet the criteria for diagnosis of diabetes. In the absence of unequivocal hyperglycemia, results should be confirmed by repeat testing. In a patient with classic symptoms of hyperglycemia or hyperglycemic crisis, random plasma glucose results greater than or equal to 200 mg/dL meet the criteria for diagnosis of diabetes. Reference: Standards of Medical Care in Diabetes 2016, [place] Diabetes Association. Diabetes Care. 2016.39(Suppl 1). BUN 20 7 - 21 mg/dL 07/26/2017 1:40 PM [facility] Creatinine 0.98(H) 0.58 - 0.96 mg/dL 07/26/2017 1:40 PM [facility] Sodium 139 136 - 144 mmol/L 07/26/2017 1:40 PM [facility] Potassium 3.9 3.7 - 5.1 mmol/L 07/26/2017 1:40 PM [facility] Chloride 96(L) 97 - 105 mmol/L 07/26/2017 1:40 PM [facility] CO2 25 22 - 30 mmol/L 07/26/2017 1:40 PM [facility] Anion Gap 18 9 - 18 mmol/L 07/26/2017 1:40 PM [facility] ALT 19 7 - 38 U/L 07/26/2017 1:40 PM [facility] eGFR- >60 07/26/2017 1:40 PM [facility] eGFR-All Other Races 59 . 07/26/2017 1:40 PM [facility] Comment: eGFR (Estimated GFR) Units of measure: mL/min/1.73 meters squared eGFR is derived from the reexpressed MDRD Study equation using the following parameters: serum creatinine, age, gender and race. The creatinine assay has been calibrated to be traceable to IDMS. An eGFR <60 mL/min/1.73m2 for >3 months is consistent with chronic kidney disease. Refer to KDOQI guidelines for clinical interpretation. In patients with unstable renal function, e.g. those with acute kidney injury, the eGFR may not accurately reflect actual GFR. Blood specimen (specimen) BLOOD SPECIMEN / Unknown 07/26/2017 10:48 AM EDT 07/26/2017 10:50 AM EDT us Jordon Donnelly (Hist) [facility] Final Result [facility] [address] [place] [address] from Last 3 Months or Most Recently Relevant to Health Maintenance Insurance [address] [place] [address] [facility] [employer] MEDICAID OF [place] Advance Directives Documents on File Type Date Recorded Patient Coo Expl anation Advance Directive(s) 07/26/2017 5:22 PM Care Teams Inspector Casing Relationship Specialty Start Date End Date Aguila Malagon [address] [place] [address] PCP - General Physical Medicine and Rehab 02/03/18
--- OUTSIDE RECORDS SUMMARY | 2025-05-09 08:51 | XMS_ITS | Clinical Summary ---
Author Organization [facility] Address [address], [address] [place] [address] Care Team Providers Care Black And White Printer Operator Name Role Phone Dandre Mills MD Primary Care Provider [phone] Allergies Active Allergy Reactions Criticality Noted Date Comments Sulfa Antibiotics 04/08/2021 Medications dicyclomine (BENTYL) 10 MG capsule 10 mg every 6 hours as needed 03/19/2021 Active cimetidine (TAGAMET) 200 MG tablet Take 200 mg by mouth daily 06/17/2020 Active levothyroxine (SYNTHROID) 100 MCG tablet Take 112 mcg by mouth daily 03/19/2021 Active sucralfate (CARAFATE) 1 GM tablet Take 1 g by mouth 3 times daily 03/19/2021 Active nitroGLYCERIN (NITROSTAT) 0.[address] 0.4 mg under the tongue 03/21/2021 Active ticagrelor (BRILINTA) 90 MG TABS tablet Take 90 mg by mouth 2 times daily 03/21/2021 Active montelukast (SINGULAIR) 10 MG tablet Take 10 mg by mouth daily 03/19/2021 Active empagliflozin (JARDIANCE) 10 MG tablet Take 10 mg by mouth daily 03/19/2021 Active metoprolol tartrate (LOPRESSOR) 25 MG tablet Take 25 mg by mouth daily 03/21/2021 Active lisinopril (PRINIVIL;ZESTR IL) 2.5 MG tablet Take 2.5 mg by mouth daily 03/21/2021 Active atorvastatin (LIPITOR) 80 MG tablet Take 80 mg by mouth daily 03/21/2021 Active pantoprazole (PROTONIX) 40 MG tablet Take 40 mg by mouth 2 times daily 03/19/2021 Active aspirin 81 MG EC tablet Take 81 mg by mouth daily Active predniSONE (DELTASONE) 20 MG tablet Take 20 mg by mouth daily 3 tabs for 3 days, 2 tabs for 3 days, then 1 tab for 3 days Active albuterol sulfate HFA 108 (90 Base) MCG/ACT inhaler Inhale 2 puffs into the lungs every 6 hours as needed for Wheezing Active budesonide-form oterol (SYMBICORT) 160-4.5 MCG/ACT AERO Inhale 2 puffs into the lungs 2 times daily Active nicotine (NICODERM CQ) 14 MG/24HR Place 1 patch onto the skin every 24 hours Active Social History Tobacco Use Types Packs/Day Years Used Date Smoking Tobacco: Every Day Cigarettes Smokeless Tobacco: Never Tobacco Cessation:Ready to Q uit: Yes; Counseling Given: Yes Comments:2 cigs a day Alcohol Use Standard Drinks/Week Comments Not Currently 0 (1 standard drink = 0.6 oz pur e alcohol) Comments Unknown Sex and Gender Information Value Date Recorded Sex Assigned at Not on file Legal Sex Female 4:16 PM EDT Gender Identity Not on file Sexual Orientation Not on file Last Filed Vital Signs Vital Sign Reading Time Taken Comments Blood Pressure 144/82 04/08/2021 11:18 AM EDT Pulse 64 04/08/2021 11:18 AM EDT Temperature - - Respiratory Rate 18 04/08/2021 11:1 8 AM EDT Oxygen Saturation 97% 04/08/2021 11: 18 AM EDT Inhaled Oxygen Concentration - - Weight 72.1 kg (158 lb 14.4 oz) 021 12:51 PM EDT Height 152.4 cm (5') 04/10/2021 12:51 PM EDT Body Mass Index 31.03 04/10/2021 12:51 PM EDT Plan of Treatment Not on file Insurance [facility] [place] Care Teams Black And White Printer Operator Relationship Specialty Start Date End Date Dandre Mills MD PCP - General 04/08/21
--- OUTSIDE RECORDS SUMMARY | 2025-05-09 08:51 | XMS_ITS | Encounter Summary ---
Author Organization [facility] Address [address] [place] [address] Care Team Providers Care Hygiene Coordinator Name Role Phone Stuart Deluca MD Primary Care Provider [phone] Veronique Harris NP Unavailable [phone] Jb Valdez MA Unavailable [phone] Encounter Details Date Type Department Care Team (Late Contact Info) Description 04/30/2025 Telephone [facility] [address] [place] [address] Veronique Harris, CONTROL CLERK SUBASSEMBLY [address] [place] [phone] Social History Tobacco Use Types Packs/Day Years [...] encounter Miscellaneous Notes * Telephone Encounter - GABRIELA AMEZQUITA - 04/30/2025 11:59 AM EDT Pt called and left vm documented in this encounter Plan of Treatment Upcoming Encounters Date Type Department Care Team (Late Contact Info) Description 07/11/2025 9:40 AM EDT Office Visit [facility] [address] [place] [address] Veronique Harris NP [address] [place] [address] documented as of this encounter Visit Diagnoses Not on filedocumented in this encounter Care Teams Hygiene Coordinator Relationship Specialty Start Date End Date Stuart Deluca MD [address] [place] [address] PCP - General Family Medicine 03/17/23 Veronique Harris NP [address] [place] [address] PCP - [facility] 03/27/24 Jb Valdez MA [address] [place] [address] Family Medicine 07/27/24 documented as of this encounter
--- OUTSIDE RECORDS SUMMARY | 2025-05-09 08:51 | XMS_ITS | Clinical Summary ---
Author Organization [facility] Address [address] [place] [address] Phone Care Team Providers Care Meter Installer Name Role Phone StevenVeronique Randee RADIO FREQUENCY DESIGN ENGINEER-BEARING MACHINE OPERATOR Primary Care Provider Allergies Active Allergy Reactions Criticality Noted Date Comments Sulfamethoxazole Itching 09/24/2023 Medications albuterol 2.5 mg /3 mL (0.083 %) nebulizer solution Take 3 mL (2.5 mg) by nebulization every 6 hours if needed for wheezing or shortness of breath. 0 Active albuterol 90 mcg/actuation inhaler Inhale 2 puffs every 6 hours if needed for wheezing or shortness of breath. 1 Active aspirin 81 mg EC tablet Take 1 tablet (81 mg) by mouth once daily. Active atorvastatin (Lipitor) 80 mg tablet Take 1 tablet (80 mg) by mouth once daily at bedtime. 1 Active budesonide-form oteroL (Symbicort) 160-4.5 mcg/actuation inhaler Inhale 2 puffs 2 times a day. 1 Active cimetidine (Tagamet) 200 mg tablet Take 1 tablet (200 mg) by mouth 2 times a day as needed. 1 Active empagliflozin (Jardiance) 10 mg Take 1 tablet (10 mg) by mouth once daily. 1 Active levothyroxine (Synthroid, Levoxyl) 112 mcg tablet Take 1 tablet (112 mcg) by mouth once daily. 2 Active lisinopril 2.5 mg tablet Take 1 tablet (2.5 mg) by mouth once daily. 1 Active metoprolol tartrate (Lopressor) 25 mg tablet Take 1 tablet (25 mg) by mouth 2 times a day. 1 Active nitroglycerin (Nitrostat) 0.[address] 1 tablet (0.4 mg) under the tongue every 5 minutes if needed for chest pain. Report to ER or call 911 after third dose. 1 Active pioglitazone (Actos) 15 mg tablet Take 1 tablet (15 mg) by mouth once daily. 2 Active sucralfate (Carafate) 1 gram tablet Take 1 tablet (1 g) by mouth 3 times a day. 1 Active Active Problems Problem Noted Date Diagnosed Date Benign essential hypertension 09/24/2023 CAD (coronary artery disease) 09/24/2023 COPD (chronic obstructive pulmonary disease) (Mu lti) 09/24/2023 Diabetes mellitus (Multi) 09/24/2023 History of PTCA 09/24/2023 Hyperlipidemia 09/24/2023 Hypothyroidism 09/24/2023 STEMI (ST elevation myocardial infarction) (Mult i) 09/24/2023 Family History Medical History Relation Name Comments Diabetes Father Heart disease Father malignant neoplasm Father Diabetes Mother Heart disease Mother malignant neoplasm Mother Relation Name Status Comments Father Mother Social History Tobacco Use Types Packs/Day Years Used Date Smoking Tobacco: Every Day Cigarettes Tobacco Cessation:Ready to Q uit: Not Asked; [...] Sign Reading Time Taken Comments Blood Pressure 142/80 10/06/2022 1:45 PM EST Pulse 72 10/06/2022 1:45 PM EST Temperature - - Respiratory Rate - - Oxygen Saturation - - Inhaled Oxygen Concentration - - Weight 70.3 kg (155 lb) 10/06/2022 1:45 PM EST Height 154.9 cm (5' 1 ) 10/06/2022 1:45 PM EST Body Mass Index 29.29 10/06/2022 1:45 PM EST Plan of Treatment Upcoming Encounters Date Type Department Care Team (Late Contact Info) Description 05/10/2025 2:45 PM EDT Office Visit [facility] [address] [facility] [address] [place] [address] Curtis Wiggins MD [address] [facility] [address] [place] [address] Health Maintenance Due Date Last Done Comments CT Colonography 1962 Diabetes: Hemoglobin A1C 1962 Diabetes: Urine Protein Screening 1962 FIT-DNA (Cologuard) 1962 FIT 1962 HIV Screening 1962 Lipid Panel 1962 Sigmoidoscopy 1962 TSH Level 1962 Yearly Adult Physical 1962 MMR Vaccines (1 of 1 - Stand pankaj series) 1963 Diabetes: Retinopathy Screening 1972 Hepatitis C Screening 1980 Hepatitis A Vaccines (1 of 2 - Risk 2-dose series) 1981 Pneumococcal Vaccine (1 of 2 - PCV) 1981 Cervical Cancer Screening 1983 HPV/Cotest 1983 Pap Smear 1983 DTaP/Tdap/Td Vaccines (1 - Tdap) 1984 Mammogram 2002 Zoster Vaccines (1 of 2) 2012 Hepatitis B Vaccines (1 of 3 - Risk 3-dose series) 2022 RSV High Risk: (Elderly (60+ ) or Population) (1 - Risk 60-74 years 1-dose series) 2022 COVID-19 Vaccine (1 - 2023-2 5 season) 2024 Influenza Vaccine (#1) 2025 Colonoscopy 03/20/2034 03/20/2024 Colorectal Cancer Screening 03/20/2034 HIB Vaccines Aged Out No longer eligi ble based on patient's age to complete this topic HPV Vaccines Aged Out No longer eligi ble based on patient's age to complete this topic IPV Vaccines Aged Out No longer eligi ble based on patient's age to complete this topic Meningococcal Vaccine Aged Out No reina rosendo eligible based on patient's age to complete this topic Rotavirus Vaccines Aged Out No longer eligible based on patient's age to complete this topic Insurance [facility] PLAN [facility] PLAN Care Teams Meter Installer Relationship Specialty Start Date End Date Veronique Harris, RADIO FREQUENCY DESIGN ENGINEER-BEARING MACHINE OPERATOR [address] [place] [phone] PCP - General 10/06/22
--- OUTSIDE RECORDS SUMMARY | 2025-05-09 08:51 | XMS_ITS | Patient Health Record ---
Author Organization [facility] Address [address] [place] [address] Care Team Providers Care Regional Intermodal Truck Driver Name Role Phone Dr. Rupert Iqbal Primary Care Provider Reason For Referral No Information Medications Medication SIG (Take, Route, Fr equency, Duration) Notes Start Date End Date Status Ibuprofen 800 MG 1 tablet with food o r milk as needed Orally Three times a day 08/06/2022 Active Ibuprofen 800 MG 1 tablet with food o r milk as needed Orally Three times a day 07/10/2022 Active Ibuprofen 800 MG 1 tablet with food o r milk as needed Orally Three times a day 03/03/2022 Active Plan Of Treatment No Information Insurance Providers Payer Name Payer Address Payer Phone Subscriber Number Group Number Insured Name Patient Relationship to Insured Coverage Start Date Coverage End Date [employer] [place] [employer] [address] [place] [address] [id number] FAUSTO KRISHNAMURTHY Self - patient is the insured 3 Wrap ABD [facility] [address] [place] [phone] [id number] FAUSTO KRISHNAMURTHY Self - patient is the insured 3 zDENTAL DQ [facility] [place]-termed 22 [address] [place] [address] [id number] FAUSTO KRISHNAMURTHY Self - patient is the insured 2 3 zDental Medicaid ABD after [facility] CHP-terme d 22 [address] [place] [address] [id number] FAUSTO KRISHNAMURTHY Self - patient is the insured 2 3 [facility] [address] [place] [address] [id number] FAUSTO KRISHNAMURTHY Self - patient is the insured 2 3 zMEDICAID CFC after [facility] CHP-terme d 22 [address] [place] [address] [id number] FAUSTO KRISHNAMURTHY Self - patient is the insured 2 3 zDental UHC [place] Medicaid [address] [place] [address] [id number] FAUSTO KRISHNAMURTHY Self - patient is the insured 3 Dental Wrap ABD [facility] [address] [place] [address] [id number] FAUSTO KRISHNAMURTHY Self - patient is the insured 3
--- OUTSIDE RECORDS SUMMARY | 2025-05-09 08:51 | XMS_ITS | Encounter Summary ---
Author Organization [facility] Address [address] [place] [address] Care Team Providers Care Cash Management Specialist Name Role Phone Stuart Deluca MD Primary Care Provider Veronique Harris NP Unavailable [phone] Jb Valdez MA Unavailable [phone] Reason for Visit * Reason Onset Date Comments Med Refill 04/30/2025 Encounter Details Date Type Department Care Team ([facility] Contact Info) Description 04/30/2025 Refill [facility] [address] [place] [phone] Veronique Harris, ANNA [address] [place] [address] Social History Tobacco Use Types Packs/Day Years [...] Upcoming Encounters Date Type Department Care Team ([facility] Contact Info) Description 07/11/2025 9:40 AM EDT Office Visit [facility] [address] [place] [phone] Veronique Harris, ANNA [address] [place] [address] documented as of this encounter Visit Diagnoses Not on filedocumented in this encounter Care Teams Cash Management Specialist Relationship Specialty Start Date End Date Stuart Deluca MD [address] [place] [phone] PCP - General Family Medicine 03/17/23 Veronique Harris NP [address] [place] [address] PCP - [facility] 03/27/24 Jb Valdez MA [address] [place] [address] Family Medicine 07/27/24 documented as of this encounter
--- OUTSIDE RECORDS SUMMARY | 2025-05-09 08:51 | XMS_ITS | Encounter Summary ---
Author Organization [facility] Address [address] [place] [address] Phone Care Team Providers Care Assistant Executive Housekeeper Name Role Phone Veronique Harris ELECTRICIAN SUPERVISOR AIRPLANE-TUCKING MACHINE OPERATOR Primary Care Provider Encounter Details Date Type Department Care Team (Late st Contact Info) Description 08/09/2023 Scanned Document [facility] [address] [place] [phone] Scanning, Generic Provider Social History Tobacco Use Types Packs/Day Years [...] Description 05/10/2025 2:45 PM EDT Office Visit [facility] [address] [facility] [address] [place] [address] Curtis Wiggins MD [address] [facility] [address] [place] [address] documented as of this encounter Visit Diagnoses Not on filedocumented in this encounter Care Teams Assistant Executive Housekeeper Relationship Specialty Start Date End Date Veronique Harris APRN-TUCKING MACHINE OPERATOR [address] [place] [phone] PCP - General 10/06/22 documented as of this encounter
--- OUTSIDE RECORDS SUMMARY | 2025-05-09 08:52 | XMS_ITS | Encounter Summary ---
Author Organization [facility] Address [address] [place] [address] Phone Care Team Providers Care Senior Staff Specialized Employment Name Role Phone Dandre Mills MD Primary Care Provider [phone] Veronique Harris Primary Care Provider Encounter Details Date Type Department Care Team (Late st Contact Info) Description 10/08/2021 Orders Only [facility] [address] [place] [address] Conversion, Onbase Social History Tobacco Use Types [...] Description 05/10/2025 2:45 PM EDT Office Visit [place] [id number] [facility] [address] [place] [address] Curtis Wiggins MD [address] [facility] [address] [place] [address] Scheduled Orders Name Type Priority Associated Diagnoses Orde r Schedule OUTSIDE LAB SCAN Lab Ordered: 10/08/2021 documented as of this encounter Visit Diagnoses Not on filedocumented in this encounter Care Teams Senior Staff Specialized Employment Relationship Specialty Start Date End Date Dandre Mills MD [address] [facility] [place] [address] PCP - General 04/16/21 10/05/22 Veronique Harris, DRYWALL HANGER-DESIGN ENGINEER [address] [place] [phone] PCP - General 10/06/22 documented as of this encounter
--- OUTSIDE RECORDS SUMMARY | 2025-05-09 08:52 | XMS_ITS | Encounter Summary ---
Author Organization [facility] Address [address] [place] [address] Care Team Providers Care Commissary Clerk Name Role Phone Stuart Deluca MD Primary Care Provider [phone] Veronique Harris NP Unavailable [phone] Jb Valdez MA Unavailable [phone] Reason for Referral * Consultation (Routine) - Authorized Specialty Diagnoses / Procedures Referred By Contelana t Referred To Contact Gastroenterology Diagnoses Gastroesophageal reflux disease without esophagitis Procedures [place] OFFICE/OUTPATIENT [facility] 60 MINUTES Veronique Harris NP [address] [place] [address] Phone: tel: fax: Hossein Salcido MD [address] [place] [address], [address], [address] [address] Phone: tel: fax: Referral ID Status Reason Start Date Expiration Date Visits Requested Visits Authorized [id number] Authorized Specialty Services Required 05/02/2025 10/29/2025 1 1 Encounter Details Date Type Department Care Team (Late st Contact Info) Description 05/02/2025 Refill [facility] [address] [place] [phone] Veronique Harris NP [address] [place] [address] Gastroesophageal reflux disease without esophagitis (Primary Dx); Nausea and vomiting, unspecified vomiting type Social History Tobacco Use Types Packs/Day Years [...] Office Visit [facility] [address] [place] [address] Veronique Harris NP [address] [place] [address] Scheduled Referrals Name Type Priority Associated Diagnoses Order Schedule Ambulatory referral to Gastroenterology Outpatient Referral Routine Gastroesophageal reflux disease without esophagitis Expected: 05/02/2025 (Approximate), Expires: 11/02/2025 documented as of this encounter Visit Diagnoses Diagnosis Gastroesophageal reflux disease without esophagitis- Primary Esophageal reflux Nausea and vomiting, unspecified vomiting type documented in this encounter Care Teams Commissary Clerk Relationship Specialty Start Date End Date Stuart Deluca MD [address] [place] [address] PCP - General Family Medicine 03/17/23 Veronique Harris NP [address] [place] [address] PCP - [facility] 03/27/24 Jb Valdez MA [address] [place] [address] Family Medicine 07/27/24 documented as of this encounter
--- OUTSIDE RECORDS SUMMARY | 2025-05-09 08:52 | XMS_ITS | Encounter Summary ---
Author Organization [facility] Address [address] [place] [address] Phone Care Team Providers Care Statistical Programmer Analyst Name Role Phone Dandre Mills MD Primary Care Provider [phone] Veronique Harris Primary Care Provider Encounter Details Date Type Department Care Team (Late st Contact Info) Description 03/21/2021 Orders Only [facility] [address] [place] [address] Conversion, Onbase Social History Tobacco Use Types [...] Description 05/10/2025 2:45 PM EDT Office Visit [place] [id number] [facility] [address] [place] [address] Curtis Wiggins MD [address] [facility] [address] [place] [address] Scheduled Orders Name Type Priority Associated Diagnoses Orde r Schedule OUTSIDE LAB SCAN Lab Ordered: 03/21/2021 documented as of this encounter Visit Diagnoses Not on filedocumented in this encounter Care Teams Statistical Programmer Analyst Relationship Specialty Start Date End Date Dandre Mills MD [address] [facility] [place] [address] PCP - General 04/16/21 10/05/22 Veronique Harris, GANG WORKER-MANUFACTURING QUALITY INSPECTOR [address] [place] [phone] PCP - General 10/06/22 documented as of this encounter
--- OUTSIDE RECORDS SUMMARY | 2025-05-09 08:52 | XMS_ITS | Clinical Summary ---
Author Organization [facility] Address [address] [place] [address] Care Team Providers Care Scrap Hooker Name Role Phone Stuart Deluca MD Primary Care Provider [phone] Veronique Harris NP Unavailable [phone] Jb Valdez MA Unavailable [phone] Allergies Active Allergy Reactions Criticality Noted Date Comments Levofloxacin Itching 09/09/2023 Sulfa Antibiotics 09/09/2023 Medications albuterol (2.5 MG/3ML) 0.083% nebulizer solution Take 2.5 mg by nebulization in the morning and 2.5 mg at noon and 2.5 mg in the evening and 2.5 mg before bedtime. Active nitroglycerin (Nitrostat) 0.[address] 0.4 mg under the tongue every 5 (five) minutes if needed for chest pain Active ASPIRIN 81 PO Take 81 mg by mouth Daily Active albuterol HFA 90 mcg/act inhalerIndications :Chronic obstructive pulmonary disease, unspecified COPD type (HCC) Inhale 2 puffs every 6 (six) hours if needed for wheezing 18 g 1 01/10/20 25 Active dicyclomine (Bentyl) 10 MG capsule TAKE 1 CAPSULE (10 MG) BY MOUTH 4 (FOUR) TIMES A DAY NEEDED (ABDOMINAL PAIN OR CRAMPS) 03/28/20 25 Active atorvastatin (Lipitor) 80 MG tabletIndications: Mixed hyperlipidemia Take 1 tablet (80 mg) by mouth at bedtime 90 tablet 1 04/05/20 25 025 Active budesonide-formote rol (Symbicort) 160-4.5 MCG/ACT inhalerIndications :Chronic obstructive pulmonary disease, unspecified COPD type (HCC) Inhale 2 puffs in the morning and 2 puffs before bedtime. Rinse mouth after use. 30.6 g 04/05/20 Active empagliflozin (Jardiance) 25 MGIndications:Cont rolled type 2 diabetes mellitus without complication, without long-term current use of insulin (HCC) Take 1 tablet (25 mg) by mouth Daily 90 tablet 04/05/20 Active levothyroxine (Synthroid, Levoxyl) 125 MCG tabletIndications: Other specified hypothyroidism Take 1 tablet (125 mcg) by mouth in the morning. Take before meals. 90 tablet 04/05/20 Active montelukast (Singulair) 10 MG tabletIndications: Seasonal allergic rhinitis due to pollen Take 1 tablet (10 mg) by mouth at bedtime 90 tablet 04/05/20 Active pantoprazole (ProtoNix) 40 MG EC tabletIndications: Gastroesophageal reflux disease without esophagitis Take 1 tablet (40 mg) by mouth in the morning and 1 tablet (40 mg) before bedtime. 180 tablet 04/05/20 Active pioglitazone (Actos) 15 MG tabletIndications: Type 2 Diabetes Mellitus Take 1 tablet (15 mg) by mouth Daily 90 tablet 04/05/20 Active lisinopril 40 MG tabletIndications: Primary hypertension Take 1 tablet (40 mg) by mouth Daily 90 tablet 04/05/20 Active metoprolol tartrate (Lopressor) 25 MG tabletIndications: Primary hypertension Take 1 tablet (25 mg) by mouth in the morning and 1 tablet (25 mg) before bedtime. 180 tablet 04/05/20 Active cholecalciferol (Vitamin D-3) 50 MCG (2000 UT) tabletIndications: Vitamin D deficiency Take 1 tablet (50 mcg) by mouth Daily 90 tablet 04/05/20 Active cimetidine (Tagamet) 200 MG tabletIndications: Gastroesophageal reflux disease without esophagitis Take 1 tablet (200 mg) by mouth in the morning and 1 tablet (200 mg) at noon and 1 tablet (200 mg) in the evening and 1 tablet (200 mg) before bedtime. 120 tablet 1 04/30/20 25 025 Active ondansetron ODT (Zofran-ODT) 4 MG disintegrating tabletIndications: Gastroesophageal reflux disease without esophagitis,Nausea and vomiting, unspecified vomiting type Take 1 tablet (4 mg) by mouth every 8 (eight) hours if needed for vomiting or nausea for up to 10 days 30 tablet 05/02/20 25 025 Active potassium chloride CR (Klor-Con M10) 10 MEQ ER tabletIndications: Hypokalemia Take 1 tablet (10 mEq) by mouth in the morning and 1 tablet (10 mEq) before bedtime. Do all this for 7 days. Do not crush or chew. 14 tablet 04/05/20 25 025 Active Problems Problem Noted Date Diagnosed Date Nausea and vomiting 05/02/2025 Vitamin D deficiency 04/05/2025 Medical non-compliance 01/01/2025 Assessment & Plan (04/05/2025 10:21 AM EDT): Has not gotten labs completed from 12/19, did not go to [facility] appt either I have explained that labs are needed to safely prescribe meds no meds until labs Explained reason for [facility] [facility], # given Will resend low dose CT chest and mammogram to [facility] Type 2 diabetes mellitus with diabetic polyneuro alisson 11/30/2024 Assessment & Plan (01/04/2025 7:23 AM EDT): No medications for this Control blood sugars Assessment & Plan (11/30/2024 7:21 AM EST): No medications for this Control blood sugars Lower abdominal pain 11/30/2024 Assessment & Plan (11/30/2024 4:52 PM EST): See HPI, `bowels moving no dysuria Check CT scan abd/pelvis Hx of rectal vaginal fistula Screening for lung cancer 08/15/2024 Assessment & Plan (08/16/2024 5:27 PM EST): Patient meets requirements for low dose CT scan for lung cancer screening: age 55-80, patient is a current smoker or has quit in the last 15 years. Smoking history is > or equal to 30 pack-year. If needed the patient is able or willing to receive treatment. The patient is not currently exhibiting any s/s of lung cancer. We have discussed the benefits as well as harms of screening, follow up testing if needed, false positive rates. We have also discussed that this type of CT scan has less radiation exposure than a traditional lung CT scan. We have also discussed that it is important to follow with annual screening for this. The patient has also been counseled on the importance of smoking cessation. . Does NOT want lung cancer screening Type 2 diabetes mellitus wit h diabetic chronic kidney disease 07/27/2024 Assessment & Plan (04/05/2025 10:20 AM EDT): Check blood sugars daily, notify if <70 or >200. Take medications (pills or insulin) as directed. Monitor for s/s of hypoglycemia (sweaty, dizziness, nausea, vomiting, or shakiness). Watch for increase in thirst, urination, or appetite. Inspect feet frequently monitoring for open wounds , and also recommend yearly eye exam. Pt should attempt to remain as physically active as chronic conditions allow, as well as trying to follow a diet low in carbohydrates, and simple sugars. Current meds: asa, statin, jardiance, pioglitazone A1c: 6.7% 04/05/25 Assessment & Plan (01/04/2025 7:24 AM EDT): Control sugar and bp, on [facility] Assessment & Plan (11/30/2024 7:25 AM EST): Control sugar and bp, on [facility] Assessment & Plan (07/27/2024 6:25 AM EDT): Control sugar and bp Qskuh-4-ejmyjrfdehz deficiency 07/27/2024 Assessment & Plan (11/30/2024 7:21 AM EST): Per pulmonary Assessment & Plan (07/27/2024 6:24 AM EDT): Per pulmonary Abdominal aortic pulsation 07/27/2024 Assessment & Plan (08/16/2024 8:04 AM EST): Ordered vascular US at last appt, not completed as of today's date Acute bilateral low back pain without sciatica 1 Assessment & Plan (08/16/2024 5:34 PM EST): Overall is feeling better No further interventions Assessment & Plan (07/27/2024 10:18 AM EDT): Icy hot and freeze bomb prn Try tizanidine, stop flexeril Bacterial vaginosis 06/22/2024 Vaginal bleeding 06/21/2024 Assessment & Plan (04/05/2025 10:19 AM EDT): Insurance denied CT Pt was referred to [facility], according to chart note entry pt was scheduled with dr abarca on 02/14/25 Phone number given for her to reach out to call At this point I have explained to the patient that unexplained vag bleeding may be related to a cancer diagnosis and that is why we want her to see [facility] She is urged to make an appt, although she states no further episodes since last visit Assessment & Plan (11/30/2024 4:54 PM EST): Check CT Assessment & Plan (06/21/2024 12:56 PM EDT): Will order culture health trx PAP obtained Malpositioned ureter with drainage via vagina Vaginal discharge 06/21/2024 Assessment & Plan (06/21/2024 6:44 PM EDT): Health trx [id number] EXP: 09/26/24 LOT # [id number]* Acute cystitis without hematuria 04/19/2024 Assessment & Plan (06/21/2024 12:46 PM EDT): Unclear if blood is coming from urine or vaginal, will have her check UA with micro as well as culture Hx of colonoscopy with polypectomy 03/20/2024 Assessment & Plan (03/20/2024 10:52 AM EDT): Had colonoscopy with polypectomy in 02/2017 Will send for updated colonoscopy See report for specifics on scope and CT scan as well Cigarette nicotine dependenc e with nicotine-induced disorder 12/09/2023 Assessment & Plan (04/05/2025 6:22 AM EDT): The patient has been advised of the risks of continued smoking: stroke, MD, all forms of cancer, lung disease, and . Options for quitting smoking include: cold turkey, hypnosis, acupuncture, nicotine replacement meds (gum, lozenges, and patches), Buproprion, and Varenicline. At this time pt is encouraged to evaluate their goals for wanting to quit smoking, and reach out to provider when ready to start this process Assessment & Plan (01/04/2025 7:23 AM EDT): The patient has been advised of the risks of continued smoking: stroke, MD, all forms of cancer, lung disease, and . Options for quitting smoking include: cold turkey, hypnosis, acupuncture, nicotine replacement meds (gum, lozenges, and patches), Buproprion, and Varenicline. At this time pt is encouraged to evaluate their goals for wanting to quit smoking, and reach out to provider when ready to start this process Assessment & Plan (11/30/2024 7:27 AM EST): The patient has been advised of the risks of continued smoking: stroke, MD, all forms of cancer, lung disease, and . Options for quitting smoking include: cold turkey, hypnosis, acupuncture, nicotine replacement meds (gum, lozenges, and patches), Buproprion, and Varenicline. At this time pt is encouraged to evaluate their goals for wanting to quit smoking, and reach out to provider when ready to start this process Assessment & Plan (08/16/2024 8:04 AM EST): The patient has been advised of the risks of continued smoking: stroke, MD, all forms of cancer, lung disease, and . Options for quitting smoking include: cold turkey, hypnosis, acupuncture, nicotine replacement meds (gum, lozenges, and patches), Buproprion, and Varenicline. At this time pt is encouraged to evaluate their goals for wanting to quit smoking, and reach out to provider when ready to start this process Chronic kidney disease, stage 3a 12/09/2023 Assessment & Plan (04/05/2025 6:18 AM EDT): Check labs yearly and prn Control BP and DM On jardiance Assessment & Plan (01/04/2025 7:24 AM EDT): Check labs yearly and prn Control BP and DM On jardiance Assessment & Plan (11/30/2024 7:24 AM EST): Check labs yearly and prn Control BP and DM On jardiance Postmenopausal postcoital bleeding 12/09/2023 Seasonal allergic rhinitis due to pollen 024 Hypokalemia 11/24/2023 Microscopic hematuria 11/24/2023 Assessment & Plan (03/20/2024 10:50 AM EDT): Check urine Elevated alkaline phosphatase level 11/24/2023 Assessment & Plan (11/30/2024 7:26 AM EST): Continue to monitor w labs Assessment & Plan (03/20/2024 10:51 AM EDT): Check GGT Diverticulitis 11/16/2023 Chronic obstructive pulmonary disease 09/30/2023 Assessment & Plan (11/30/2024 7:22 AM EST): Rare use of albuterol, and uses ICS/LABA prn Continues with tobacco, urged to quit Cont with pulmonology Assessment & Plan (07/27/2024 9:57 AM EDT): Rare use of albuterol, and uses ICS/LABA prn Continues with tobacco Assessment & Plan (06/21/2024 12:45 PM EDT): Rare use of albuterol, and uses ICS/LABA prn Continues with tobacco Assessment & Plan (03/20/2024 10:47 AM EDT): Continue with dr alvarez, I have reviewed with pt that she was non compliant with getting PET scan completed. She stated she has been busy, I explained the importance of getting scan completed to r/o malignancy and instructed her to contact Ashvin's office to schedule Also she is urged to quit smoking and she is also to continue with her prescribed treatment Coronary artery disease 09/30/2023 Assessment & Plan (04/05/2025 6:16 AM EDT): Current meds: asa, statin, b karon, jardiance, noah Assessment & Plan (11/30/2024 7:22 AM EST): Current meds: asa, statin, b karon, jardiance, noah Assessment & Plan (07/27/2024 9:58 AM EDT): Continue w current meds Assessment & Plan (06/21/2024 12:45 PM EDT): No current symptoms Assessment & Plan (03/20/2024 10:48 AM EDT): Cont statin, quit smoking HTN (hypertension) 09/30/2023 Assessment & Plan (04/05/2025 10:18 AM EDT): Please check blood pressure daily and record DASH diet Limit caffeine Take medication as directed Contact office if chest pain, pressure, dizziness, shortness of breath, swelling legs Recommend slow position changes Current med: b karon and noah Not at goal, however I have explained that she must have labs completed prior to any other med adjustments Once I receive the labs I will make adjustments Assessment & Plan (01/04/2025 7:23 AM EDT): Please check blood pressure daily and record DASH diet Limit caffeine Take medication as directed Contact office if chest pain, pressure, dizziness, shortness of breath, swelling legs Recommend slow position changes Current med: b karon and noah At last appt we increased dose on lisinopril Assessment & Plan (11/30/2024 4:53 PM EST): Please check blood pressure daily and record DASH diet Limit caffeine Take medication as directed Contact office if chest pain, pressure, dizziness, shortness of breath, swelling legs Recommend slow position changes Current med: b karon and noah Not at goal, will increase her lisinopril to 20mg daily Fu in 4 weeks for recheck Assessment & Plan (08/16/2024 5:38 PM EST): Please check blood pressure daily and record DASH diet Limit caffeine Take medication as directed Contact office if chest pain, pressure, dizziness, shortness of breath, swelling legs Recommend slow position changes Has been out of blood pressure meds for 3 days, just picked them up today Assessment & Plan (07/27/2024 9:58 AM EDT): Please check blood pressure daily and record DASH diet Limit caffeine Take medication as directed Contact office if chest pain, pressure, dizziness, shortness of breath, swelling legs Recommend slow position changes Assessment & Plan (06/21/2024 12:46 PM EDT): Elevated today in office, however she is crying and is upset with life stressors Assessment & Plan (03/20/2024 10:48 AM EDT): At goal, no med dose changes Breast cancer screening by mammogram 09/30/2023 STEMI (ST elevation myocardial infarction) 09/24 Hyperlipidemia 09/24/2023 Assessment & Plan (11/30/2024 7:27 AM EST): On statin Check labs yearly and prn dose changes Other specified hypothyroidism 09/16/2023 Assessment & Plan (04/05/2025 10:20 AM EDT): On levothyroxine Check labs yearly, and prn dose change or changes in sxs Gastroesophageal reflux disease without esophagi tis 09/16/2023 Assessment & Plan (01/04/2025 7:26 AM EDT): Recommendations: freq small meals, nothing to eat or drink at least 2 hours prior to bed, limit caffeine, alcohol, as well as spicy foods Meds to limit or avoid if possible: NSAIDS Elevate HOB if possible Current meds: anti spasmodic, pantoprazole Last appt we stopped her tagament and started anti spasmoidic Assessment & Plan (11/30/2024 4:53 PM EST): Recommendations: freq small meals, nothing to eat or drink at least 2 hours prior to bed, limit caffeine, alcohol, as well as spicy foods Meds to limit or avoid if possible: NSAIDS Elevate HOB if possible Current meds: tagamet, pantoprazole Will have her stop the tagament, she describes using this more for burning/cramping in abd region. We will trial bentyl Assessment & Plan (06/21/2024 12:44 PM EDT): Continue current meds No changes Assessment & Plan (03/20/2024 10:50 AM EDT): Continue current meds Will also refer to GI: all meds necessary? Also will need a colonoscopy Generalized abdominal pain 08/31/2023 Colovaginal fistula 06/08/2017 Overview (11/16/2023): Added automatically from request for surgery [id number] Assessment & Plan (01/04/2025 3:52 PM EDT): Has not had fu on that, not sure if this is related to abd pain w vaginal bleeding At last appt we ordered a CT abd/pelvis with, to date has not been completed, pt states insurance declined We will send more information Also refer to [facility] Assessment & Plan (11/30/2024 4:54 PM EST): Has not had fu on that, not sure if this is related to abd pain w vaginal bleeding Will start with CT abd/pelvis with Perforated diverticulum 09/27/2016 Overview (12/09/2023): perforated diverticuli Resolved Problems Problem Noted Date Diagnosed Date Resolved Date Chronic kidney disease, stage 2 (mild) 07/27/2024 04/05/2025 Assessment & Plan (07/27/2024 6:25 AM EDT): Monitor labs periodically Control glucose and blood pressure UTI symptoms 06/21/2024 04/05/2025 Overview (11/06/2024): Unbabel [id number] LOT # [id number] EXP: 12/26/2026 Assessment & Plan (11/06/2024 5:49 PM EST): Hx of UTI, urine dip no acute UTI findings, however sxs suggestive of this Will start atb, send for culture, change if needed Xliwh-5-oqxqilrsvbqtaems deficiency 12/09/2023 11/30/2024 Assessment & Plan (03/20/2024 10:50 AM EDT): Continue with Pulmonary Dental infection 12/09/2023 04/05/2025 Current smoker 11/16/2023 08/15/2024 Overview (11/16/2023): Added secondary to documentation in Social History. Assessment & Plan (03/20/2024 10:51 AM EDT): The patient has been advised of the risks of continued smoking: stroke, MD, all forms of cancer, lung disease, and . Options for quitting smoking include: cold turkey, hypnosis, acupuncture, nicotine replacement meds (gum, lozenges, and patches), Buproprion, and Varenicline. At this time pt is encouraged to evaluate their goals for wanting to quit smoking, and reach out to provider when ready to start this process 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 11/16/2023 11/30/2024 Assessment & Plan (11/06/2024 5:51 PM EST): The patient has been advised of the risks of continued smoking: stroke, MD, all forms of cancer, lung disease, and . Options for quitting smoking include: cold turkey, hypnosis, acupuncture, nicotine replacement meds (gum, lozenges, and patches), Buproprion, and Varenicline. At this time pt is encouraged to evaluate their goals for wanting to quit smoking, and reach out to provider when ready to start this process Assessment & Plan (08/16/2024 5:28 PM EST): The patient has been advised of the risks of continued smoking: stroke, MD, all forms of cancer, lung disease, and . Options for quitting smoking include: cold turkey, hypnosis, acupuncture, nicotine replacement meds (gum, lozenges, and patches), Buproprion, and Varenicline. At this time pt is encouraged to evaluate their goals for wanting to quit smoking, and reach out to provider when ready to start this process Assessment & Plan (07/27/2024 6:28 AM EDT): The patient has been advised of the risks of continued smoking: stroke, MD, all forms of cancer, lung disease, and . Options for quitting smoking include: cold turkey, hypnosis, acupuncture, nicotine replacement meds (gum, lozenges, and patches), Buproprion, and Varenicline. At this time pt is encouraged to evaluate their goals for wanting to quit smoking, and reach out to provider when ready to start this process Diabetes type 2, controlled 09/30/2023 04/05/2025 Assessment & Plan (11/30/2024 4:55 PM EST): Check blood sugars daily, notify if <70 or >200. Take medications (pills or insulin) as directed. Monitor for s/s of hypoglycemia (sweaty, dizziness, nausea, vomiting, or shakiness). Watch for increase in thirst, urination, or appetite. Inspect feet frequently monitoring for open wounds , and also recommend yearly eye exam. Pt should attempt to remain as physically active as chronic conditions allow, as well as trying to follow a diet low in carbohydrates, and simple sugars. Needs eye exam Current meds: asa, statin, jardiance, noah, A1c; 5.6% 11/30/24 Assessment & Plan (07/27/2024 10:09 AM EDT): A1c 6.5% Check blood sugars daily, notify if <70 or >200. Take medications (pills or insulin) as directed. Monitor for s/s of hypoglycemia (sweaty, dizziness, nausea, vomiting, or shakiness). Watch for increase in thirst, urination, or appetite. Inspect feet frequently monitoring for open wounds , and also recommend yearly eye exam. Pt should attempt to remain as physically active as chronic conditions allow, as well as trying to follow a diet low in carbohydrates, and simple sugars. Needs eye exam Assessment & Plan (06/21/2024 12:47 PM EDT): Check A1c Needs eye exam Fu in 3 months Assessment & Plan (03/20/2024 10:50 AM EDT): Check blood sugars daily, notify if <70 or >200. Take medications (pills or insulin) as directed. Monitor for s/s of hypoglycemia (sweaty, dizziness, nausea, vomiting, or shakiness). Watch for increase in thirst, urination, or appetite. Inspect feet frequently monitoring for open wounds , and also recommend yearly eye exam. Pt should attempt to remain as physically active as chronic conditions allow, as well as trying to follow a diet low in carbohydrates, and simple sugars. Check a1c Encounters Date Type Department Care Team Description 05/02/2025 Refill [facility] [address] [place] [id number] Veronique Harris NP Gastroesophageal reflux disease without esophagitis (Primary Dx); Nausea and vomiting, unspecified vomiting type 05/02/2025 Telephone [facility] [address] [place] [phone] Veronique Harris NP 04/30/2025 Refill [facility] [address] [place] [phone] Veronique Harris NP Gastroesophageal reflux disease without esophagitis (Primary Dx) 04/30/2025 Telephone [facility] [address] [place] [phone] Veronique Harris, ANNA 04/30/2025 Refill [facility] [address] [place] [phone] Veronique Harris, ANNA 04/30/2025 Telephone [facility] [address] [place] [phone] Veronique Harris, MUD ANALYSIS [employer] 04/11/2025 Telephone [facility] [address] [place] [address] Bao Noble, DPEitan No Shows (Recent History of No Shows) 04/09/2025 Travel 04/05/2025 9:40 AM EDT Office Visit [facility] [address] [place] [phone] Veronique Harris, ANNA Type 2 diabetes mellitus with chronic kidney disease, without long-term current use of insulin, unspecified CKD stage (HCC) (Primary Dx); Primary hypertension ; Coronary artery disease involving [place] coronary artery of [place] heart without angina pectoris ; Vaginal bleeding; Chronic kidney disease, stage 3a ([facility]-HCC); Controlled type 2 diabetes mellitus without complication, without long-term current use of insulin (HCC); Medical non-compliance; Breast cancer screening by mammogram; Cigarette nicotine dependence with nicotine-induced disorder; Other specified hypothyroidism 04/05/2025 Orders Only [facility] [address] [place] [phone] Veronique Harris, ANNA Microscopic hematuria (Primary Dx); Colovaginal fistula; Elevated alkaline phosphatase level 04/05/2025 Refill [facility] [address] [place] [phone] Veronique Harris, ANNA Primary hypertension (Primary Dx); Mixed hyperlipidemia ; Chronic obstructive pulmonary disease, unspecified COPD type (HCC); Controlled type 2 diabetes mellitus without complication, without long-term current use of insulin (HCC); Other specified hypothyroidism ; Seasonal allergic rhinitis due to pollen; Gastroesophageal reflux disease without esophagitis; Vitamin D deficiency; Hypokalemia 04/05/2025 Telephone [facility] [address] [place] [phone] Veronique Harris NP 04/05/2025 Clinisync Result Encounter [facility] External Department Unsolicited Veronique Harris NP 04/05/2025 Bamboo flowsheet [facility] [address] [place] [phone] Veronique Harris NP 04/04/2025 Refill [facility] [address] [place] [phone] Veronique Harris NP Primary hypertension from Last 3 Months Family History Medical History Relation Name Comments Cancer Father Heart disease Father Hypertension Father Cancer Mother Diabetes Mother Heart disease Mother Hypertension Mother Skin cancer Sister Relation Name Status Comments Father Mother Sister Social History Tobacco Use Types Packs/Day Years Used Date Smoking Tobacco: Every Day Cigarettes 0.3 20 Tobacco Cessation:Ready to Q uit: Not Asked; Counseling Given: Not Answered Alcohol Use Standard Drinks/Week Comments Not Currently [...] Sign Reading Time Taken Comments Blood Pressure 160/84 04/05/2025 9:45 AM EDT Pulse 67 04/05/2025 9:45 AM EDT Temperature 36.4 C (97.5 F) 04/05/2025 9:45 AM EDT Respiratory Rate 18 04/05/2025 9:45 AM EDT Oxygen Saturation 97% 04/05/2025 9:45 AM EDT Inhaled Oxygen Concentration - - Weight 63 kg (139 lb) 04/05/2025 9:45 AM EDT Height 156.2 cm (5' 1.5 ) 01/08/2025 1:36 PM EDT Body Mass Index 25.84 01/08/2025 1:36 PM EDT Plan of Treatment Upcoming Encounters Date Type Department Care Team (Late st Contact Info) Description 07/11/2025 9:40 AM EDT Office Visit [facility] [address] [place] [address] Veronique Harris, MUD ANALYSIS WELL LOGGING CAPTAIN [address] [place] [address] Health Maintenance Due Date Last Done Comments CT Colonography 1960 FIT-DNA 1962 FIT 1960 FOBT 1960 Sigmoidoscopy 1960 Diabetes: Retinopathy Screening 1972 Mammogram 02/13/2025 02/14/2024, 12/22/2021 Diabetes: Hemoglobin A1C 10/06/2025 025, 04/05/2025, 11/30/2024, Additional history exists Diabetes: Urine Protein Screening 04/05/2026 025, 11/24/2023 Colonoscopy 03/20/2034 03/20/2024 Colorectal Cancer Screening 03/20/2034 Influenza Vaccine Discontinued Procedures Procedure Name Priority Date/Time Associated Diagnosis Comments TBH VITAMIN D 25 [place] Routine 04/05/2025 1 1:47 AM EDT ALL LIPID PROFILE (FASTING) Routine 04/05/2025 11:47 AM EDT ALL GAMMA GLUTAMYL TRANSPEPTIDASE Routine 04/05/2025 11:47 AM EDT [facility] CMP (CMP) (FOR REMOTE [facility] USE) Routine 04/05/2025 11:47 AM EDT ALL CBC WITH AUTO DIFF Routine 11:47 AM EDT TBH URINE MICROSCOPIC ONLY Routine 04/05/2025 11:34 AM EDT TBH UA (CLEAN/CATCH) MICROSCOPIC IF INDICATE Routine 04/05/2025 11:34 AM EDT TBH MICROALB CREAT RATIO RANDOM Routine 04/05/2025 11:34 AM EDT POCT GLYCOSYLATED HEMOGLOBIN (HGB A1C) Routine 04/05/2025 10:23 AM EDT Controlled type 2 diabetes mellitus without complication, without long-term current use of insulin (HCC) COLONOSCOPY Routine 03/20/2024 5:31 PM EDT MAMMOGRAM, BILATERAL, SCREEN:* Routine 02/14/2024 8:54 AM EDT from Last 3 Months or Most Recently Relevant to Health Maintenance Results * TBH VITAMIN D 25 [place] (04/05/2025 11:47 AM EDT) VITAMIN D 23.7 ng/mL TB Comment: <20 ng/mL Vit D deficient 20-<30 ng/mL Vit D insufficient 30-100 ng/mL Vit D sufficient >100 ng/mL Potential Toxicity 04/05/2025 11:4 7 AM EDT 04/05/2025 11:54 AM EDT Narrative CLINISYNC - 04/05/2025 1:06 PM EDT us Veronique Harris NP [facility] ([facility]AL) [facility] CMP (CMP) (FOR REMOTE [facility] USE) (04/05/2025 11:47 AM EDT) SODIUM 143 136 - 145 mmol/L TBH POTASSIUM 2.9(LL) 3.5 - 5.1 mmol/L TBH Comment:RESULTS CALLED TO CHLORIDE 105 98 - 107 mmol/L TBH CARBON DIOXIDE 31.4 21.0 - 32.0 mmol/L TBH ANION GAP 9.5 TBH GLUCOSE 105 74 - 106 mg/dL TBH BLOOD UREA NITROGEN 16.0 7.0 - 18.0 mg/dL TBH CREATININE 0.87 0.55 - 1.02 mg/dL TBH TBH EGFR-AF MALAYSIAN >60 >=60 mL/min/1. 73m 2 TBH TBH EGFR-NON AF MALAYSIAN >60 >=60 mL/min/1. 73m 2 TBH BUN CREATININE RATIO 18.4 TBH CALCIUM 9.0 8.5 - 10.1 mg/dL TBH BILIRUBIN TOTAL 0.4 0.2 - 1.0 mg/dL TBH ASPARTATE AMINO TRANSFERASE 19 15 - 37 U/L TBH ALANINE AMINOTRANSFERASE 22 14 - 59 U/L TBH ALKALINE PHOSPHATASE 153(H) 46 - 116 U/L TBH TOTAL PROTEIN 7.6 6.4 - 8.2 g/dL TBH ALBUMIN LEVEL 3.0(L) 3.4 - 5.0 g/dL TBH GLOBULIN 4.6 g/dL TBH ALBUMIN GLOBULIN RATIO 0.7 TBH 04/05/2025 11:4 7 AM EDT 04/05/2025 11:54 AM EDT Narrative CLINISYNC - 04/05/2025 1:03 PM EDT us Veronique Harris NP CLINISYNC Final Result [facility] * (ABNORMAL) ALL LIPID PROFILE (FASTING) (04/05/2025 11:47 AM EDT) TRIGLYCERIDES 173(H) <=150 mg/dL TBH CHOLESTEROL 142 <=200 mg/dL TBH HDL CHOLESTEROL 38(L) 40 - 60 mg/dL TB Comment: > or =60 mg/dl - LOW CARDIOVASCULAR RISK <40 mg/dl - HIGH CARDIOVASCULAR RISK LDL CHOLESTEROL CALCULATED 70.0 mg/dL TB Comment: <100 mg/dl OPTIMAL 100-129 mg/dl NEAR OR ABOVE OPTIMAL 130-159 mg/dl BORDERLINE HIGH 160-189 mg/dl HIGH >190 mg/dl VERY HIGH VLDL CHOLESTEROL 34.6 mg/dL TB CHOL HDL RATIO 3.7 TB Comment: 3.3 - 4.4 LOW RISK 4.4 - 7.1 AVERAGE RISK 7.1 - 11.0 MODERATE RISK >11.0 HIGH RISK 04/05/2025 11:4 7 AM EDT 04/05/2025 11:54 AM EDT Narrative CLINISYNC - 04/05/2025 1:03 PM EDT Veronique Harris MUD ANALYSIS WELL LOGGING CAPTAIN CLINISYNC Final Result CLINISYNC TB * ALL GAMMA GLUTAMYL TRANSPEPTIDASE (04/05/2025 11:47 AM EDT) GAMMA GLUTAMYL TRANSPEPTIDASE 12 8 - 55 U/L TB 04/05/2025 11:4 7 AM EDT 04/05/2025 11:54 AM EDT Narrative CLINISYNC - 04/05/2025 1:03 PM EDT Veronique Harris MUD ANALYSIS WELL LOGGING CAPTAIN CLINISYNC Final Result Performing Organization Address [facility] Co de Phone Number CLINISYNC TB * ALL CBC WITH AUTO DIFF (04/05/2025 11:47 AM EDT) Pathologist [facility] TB WBC 9.5 4.0 - 11.0 10 3/uL TBH TB RBC 5.06 4.20 - 5.40 10 6/uL TBH TB HGB 15.3 12.0 - 16.0 g/dL TB TB HCT 47.0 36.0 - 48.0 % TB TB MCV 92.9 81.0 - 99.0 fL TB TB MCH 30.2 26.7 - 34.0 pg TBH TB MCHC 32.6 29.9 - 35.2 g/dL TB TB RDW 13.4 11.0 - 15.0 % TB TB PLT 205 150 - 450 10 3/uL TB TB MPV 12.4 9.5 - 13.5 fL TBH NEUTROPHILS PERCENT AUTO 54.3 43.0 - 75.0 % TBH LYMPHOCYTES PERCENT AUTO 36.1 20.5 - 60.0 % TBH MONOCYTES PERCENT AUTO 7.5 1.7 - 12.0 % TBH TBH EO % 1.6 0.9 - 7.0 % TBH BASOPHILS PERCENT AUTO 0.3 0.2 - 2.0 % TBH IMMATURE GRANULOCYTES PCT AUTO 0.2 0.0 - 0.5 % TB NEUTROPHILS ABSOLUTE AUTO 5.2 1.4 - 6.5 10 3/uL TBH LYMPHOCYTES ABSOLUTE AUTO 3.4 1.2 - 3.8 10 3/uL TBH MONOCYTES ABSOLUTE AUTO 0.7 0.3 - 0.8 10 3/uL TBH TBH EO # 0.2 0.0 - 0.7 10 3/uL TBH BASOPHILS ABSOLUTE AUTO 0.0 0.0 - 0.1 10 3/uL TBH IMMATURE GRANULOCYTES ABS AUTO 0.02 0.00 - 0.03 10 3/uL TBH 04/05/2025 11:4 7 AM EDT 04/05/2025 11:54 AM EDT Narrative CLINISYNC - 04/05/2025 12:09 PM EDT Veronique Harris NP CLINISYNC Final Result Performing Organization Address [facility] de Phone Number CLINISYNC TBH * (ABNORMAL) TBH URINE MICROSCOPIC ONLY (04/05/2025 11:34 AM EDT) TBH WBC 2-5(A) NONE SEEN #/HPF TBH TBH RBC 0-2 0 - 2 #/HPF TBH BACTERIA URINE TRACE(A) NONE SEEN #/HPF TBH MUCUS URINE NONE SEEN NONE SEEN TBH SQUAMOUS EPITHELIAL CELL URINE FEW(A) NONE/RARE #/LPF TBH CRYSTALS SEEN? None Seen None Seen #/HPF TBH CAST SEEN? NONE SEEN NONE SEEN #/LPF TBH 04/05/2025 11:3 4 AM EDT 04/05/2025 11:54 AM EDT Narrative CLINISYNC - 04/05/2025 12:33 PM EDT Veronique Harris NP CLINISYNC Final Result Performing Organization Address [facility] Co de Phone Number CLINISYNC TBH * (ABNORMAL) TBH UA (CLEAN/CATCH) MICROSCOPIC IF INDICATE (04/05/2025 11:34 AM EDT) COLOR URINE YELLOW YELLOW TBH CLARITY URINE CLEAR CLEAR TBH SPECIFIC GRAVITY URINE 1.010 1.005 - 1.025 TBH PH URINE 6.0 5.0 - 9.0 TBH PROTEIN URINE NEGATIVE NEG/TRACE mg/dL TB GLUCOSE URINE UA 500(A) NEGATIVE mg/dL TBH BILIRUBIN URINE NEGATIVE NEGATIVE TBH KETONES URINE TRACE(A) NEGATIVE mg/dL TBH BLOOD URINE TRACE-I NEGATIVE TBH NITRITE URINE NEGATIVE NEGATIVE TBH UROBILINOGEN URINE 1.0 0.2 - 1.0 EU/dL TBH LEUKOCYTE ESTERASE URINE NEGATIVE NEGATIVE TBH URINE MICROSCOPIC INDICATED YES TBH 04/05/2025 11:3 4 AM EDT 04/05/2025 11:54 AM EDT Narrative CLINISYNC - 04/05/2025 12:33 PM EDT Veronique Harris NP [facility] * TB MICROALB CREAT RATIO RANDOM (04/05/2025 11:34 AM EDT) MICROALBUMIN URINE RANDOM 2.2 <=30.0 mg/dL TB CREATININE URINE RANDOM 154.75 20.00 - 300.00 mg/dL TB MICROALBUM CREATININE RATIO UR 14.2 0.0 - 29.9 mg/g TB Comment: NO MICROALBUMINURIA 0-29 MG/G CLINICAL MICROALBUMINURIA 30-300 MG/G MACROALBUMINURIA >300 MG/G 04/05/2025 11:3 4 AM EDT 04/05/2025 11:54 AM EDT Narrative CLINISYNC - 04/05/2025 12:25 PM EDT Veronique Harris NP [facility] Final [facility] * ([facility]NORMAL) POCT glycosylated hemoglobin (Hb A1C) docked device (04/05/2025 10:23 AM EDT) Hemoglobin A1C 6.7 Blood Venous blood specimen / Unknown 04/05/2025 10:23 AM EDT Veronique Harris NP POINT OF CARE TEST ENTER/EDIT O RDERABLES Final Result * Colonoscopy (03/20/2024 5:31 PM EDT) Anatomical Region Laterality Modality Endoscopy Veronique Harris NP ENDOSCOPY PROCEDURE ORDERABLES Final Result * MAMMOGRAM, BILATERAL, SCREEN:* (02/14/2024 8:54 AM EDT) Anatomical Region Laterality Modality Radiographic Latisha ging Veronique Harris MUD ANALYSIS WELL LOGGING CAPTAIN IMG XR PROCEDURES Final Result from Last 3 Months or Most Recently Relevant to Health Maintenance Insurance [employer] MEDICAID Care Teams Scrap Hooker Relationship Specialty Start Date End Date Stuart Deluca MD [address] [place] [address] PCP - General Family Medicine 03/17/23 Veronique Harris NP [address] [place] [address] PCP - [facility] 03/27/24 Jb Valdez MA [address] [place] [address] Family Medicine 07/27/24
--- OUTSIDE RECORDS SUMMARY | 2025-05-09 08:52 | XMS_ITS | Encounter Summary ---
Author Organization [facility] Address [address], [address] [place] [address] Care Team Providers Care Space Operations Name Role Phone Dandre Mills MD Primary Care Provider [phone] Encounter Details Date Type Department Care Team (Late st Contact Info) Description 04/01/2021 Transcribe Orders [facility] [address] [place] [address] Rafael Washington, DO [address], [address] [place] [address] Social History Tobacco Use Types Packs/Day Years Used Date Smoking Tobacco: Never Assessed Comments Unknown Sex and Gender Information Value Date Recorded Sex Assigned at Not on file Legal Sex Female 4:16 PM EDT Gender Identity Not on file Sexual Orientation Not on file documented as of this encounter Plan of Treatment Not on file documented as of this encounter Visit Diagnoses Not on filedocumented in this encounter Care Teams Space Operations Relationship Specialty Start Date End Date Dandre Mills MD PCP - General 04/08/21 documented as of this encounter
--- OUTSIDE RECORDS SUMMARY | 2025-05-09 08:52 | XMS_ITS | Encounter Summary ---
Author Organization [facility] Address [address] [place] [address] Care Team Providers Care Home Health Care Case Manager Name Role Phone Stuart Deluca MD Primary Care Provider Veronique Harris NP Unavailable [phone] Jb Valdez MA Unavailable [phone] Encounter Details Date Type Department Care Team (Late Contact Info) Description 05/02/2025 Telephone [facility] [address] [place] [address] Veronique Harris, ANNA [address] [place] [address] Social History Tobacco Use Types Packs/Day Years [...] * Telephone Encounter - GABRIELA AMEZQUITA - 05/02/2025 6:34 PM EDT call documented in this encounter Plan of Treatment Upcoming Encounters Date Type Department Care Team ([facility] Contact Info) Description 07/11/2025 9:40 AM EDT Office Visit [facility] [address] [place] [address] Veronique Harris NP [address] [place] [address] documented as of this encounter Visit Diagnoses Not on filedocumented in this encounter Care Teams Home Health Care Case Manager Relationship Specialty Start Date End Date Stuart Deluca MD [address] [place] [address] PCP - General Family Medicine 03/17/23 Veronique Harris NP [address] [place] [address] PCP - [facility] 03/27/24 Jb Valdez MA [address] [place] [address] Family Medicine 07/27/24 documented as of this encounter
--- OUTSIDE RECORDS SUMMARY | 2025-05-09 08:52 | XMS_ITS | Encounter Summary ---
Author Organization [facility] Address [address] [place] [address] Care Team Providers Care Electrical Designer Drafter Name Role Phone Stuart Deluca MD Primary Care Provider Veronique Harris NP Unavailable [phone] Jb Valdez MA Unavailable [phone] Encounter Details Date Type Department Care Team ([facility] Contact Info) Description 04/30/2025 Refill [facility] [address] [place] [address] Veronique Harris NP [address] [place] [address] Gastroesophageal reflux disease without esophagitis (Primary Dx) Social History Tobacco Use Types Packs/Day Years [...] Upcoming Encounters Date Type Department Care Team ([facility] Contact Info) Description 07/11/2025 9:40 AM EDT Office Visit [facility] [address] [facility] [place] [address] Veronique Harris NP [address] [place] [address] documented as of this encounter Visit Diagnoses Diagnosis Gastroesophageal reflux disease without esophagitis- Primary Esophageal reflux documented in this encounter Care Teams Electrical Designer Drafter Relationship Specialty Start Date End Date Stuart Deluca MD [address] [place] [address] PCP - General Family Medicine 03/17/23 Veronique Harris NP [address] [place] [address] PCP - [facility] 03/27/24 Jb Valdez MA [address] [place] [address] Family Medicine 07/27/24 documented as of this encounter
--- OUTSIDE RECORDS SUMMARY | 2025-05-09 08:52 | XMS_ITS | Encounter Summary ---
Author Organization [facility] Address [address] [place] [address] Care Team Providers Care Leader Writer Name Role Phone Stuart Deluca MD Primary Care Provider Veronique Harris NP Unavailable [phone] Jb Valdez MA Unavailable [phone] Encounter Details Date Type Department Care Team (Late Contact Info) Description 04/30/2025 [facility]phone [facility] [address] [place] [address] Veronique Harris, DIRECTOR MOTION PICTURE [address] [place] [address] Social History Tobacco Use Types Packs/Day Years [...] Telephone Encounter - GABRIELA AMEZQUITA - 04/30/2025 4:20 PM EDT 2nd phone call documented in this encounter Plan of Treatment Upcoming Encounters Date Type Department Care Team ([facility] Contact Info) Description 07/11/2025 9:40 AM EDT Office Visit [facility] [address] [place] [address] Veronique Harris NP [address] [place] [address] documented as of this encounter Visit Diagnoses Not on filedocumented in this encounter Care Teams Leader Writer Relationship Specialty Start Date End Date Stuart Deluca MD [address] [place] [address] PCP - General Family Medicine 03/17/23 Veronique Harris NP [address] [place] [address] PCP - [facility] 03/27/24 Jb Valdez MA [address] [place] [address] Family Medicine 07/27/24 documented as of this encounter
--- OUTSIDE RECORDS SUMMARY | 2025-05-09 08:52 | XMS_ITS | Encounter Summary ---
Author Organization [facility] Address [address] [place] [address] Care Team Providers Care Flavor Maker Name Role Phone Stuart Deluca MD Primary Care Provider [phone] Veronique Harris NP Unavailable [phone] Jany Saini HOURLY SALES STAFF Unavailable [phone] SharmilaMarta SOCIAL MEDIA DEVELOPER Unavailable Jb Valdez MA Unavailable [phone] Encounter Details Date Type Department Care Team ([facility] Contact Info) Description 09/08/2023 Abstract [facility] [address] [place] [address] Veronique Harris, ANNA [address] [place] [address] Social History Tobacco Use Types [...] Upcoming Encounters Date Type Department Care Team ([facility] Contact Info) Description 07/11/2025 9:40 AM EDT Office Visit [facility] [address] [place] [address] Veronique Harris, ANNA [address] [place] [address] documented as of this encounter Visit Diagnoses Not on filedocumented in this encounter Care Teams Flavor Maker Relationship Specialty Start Date End Date Stuart Deluca MD [address] [place] [address] PCP - General Family Medicine 03/17/23 Veronique Harris NP [address] [place] [address] PCP - [facility] 03/27/24 Jany Saini, JADE [address] [place] [address] Communication Studies Professor Family Medicine 07/25/24 07/27/24 Marta Doll LPN [address] [place] [address] Licensed Practical Nurse Family Medicine 07/27/2406/29 Jb Valdez, TREVOR [address] [place] [address] Family Medicine 07/27/24 documented as of this encounter
--- OUTSIDE RECORDS SUMMARY | 2025-05-09 08:52 | XMS_ITS | Encounter Summary ---
Author Organization [facility] Address [address] [place] [address] Care Team Providers Care Green Feed Attendant Name Role Phone Stuart Deluca MD Primary Care Provider [phone] Veronique Harris NP Unavailable [phone] Parveen Jany HOUSEKEEPER MANAGER Unavailable [phone] Marta Doll ASSOCIATE QUALITY ENGINEER Unavailable Jb Valdez MA Unavailable [phone] Encounter Details Date Type Department Care Team (Late Contact Info) Description 09/13/2023 Clinisync Result Encounter [facility] External Department Unsolicited Provider, Generic External Data Social History Tobacco Use Types Packs/Day Years [...] 07/11/2025 9:40 AM EDT Office Visit [facility] [address] [place] [address] Veronique Harris NP [address] [place] [address] documented as of this encounter Procedures Procedure Name Priority Date/Time Associated Diagnosis Comments CT LUNG SCREENING LOW DOSE 09/13/2023 9:44 AM EST documented in this encounter Results * CT LUNG SCREENING LOW DOSE (09/13/2023 9:44 AM EST) Anatomical Region Laterality Modality Other 09/13/2023 9:44 AM EST Narrative 09/13/2023 9:46 AM EST [address] [address] [address] Scan Report Signed Patient: FAUSTO CORRIGAN MR#: [id number] : 1960 Acct:[id number] Age/Sex: 63 / F ADM Date: 09/10/23 Loc: CT Attending Dr: Oliver Alvarado D.O. Ordering Physician: Oliver Alvarado D.O. Date of Service: 09/10/23 Procedure(s): CT lung screening low-dose Accession Number(s): [id number] cc: Veronique Harris NP [place] [address] Patient Name: FAUSTO CORRIGAN MRN: [id number] date: 1960 Sex: F Assigned Patient Location: CT Current Patient Location: Accession/Order Number: [id number] Exam Date: 09/10/2023 10:28 Report Date: 09/13/2023 09:44 At the request of: OLIVER ALVARADO Procedure: CT lung screening low-dose EXAMINATION: CT lung screening low-dose HISTORY: Screening For Respiratory Malignancy Z12.2, Nicotine Depende COMPARISON: 09/01/2022 TECHNIQUE: Axial, Coronal, and Sagittal images were created without the administration of IV contrast material. Dose reduction techniques were achieved by using automated exposure control and/or adjustment of mA and/or kV according to patient size and/or use of iterative reconstruction technique. FINDINGS: LUNGS: Mild stable emphysematous changes with an apical predominance. Again demonstrated are multiple areas of patchy solid and semisolid opacities scattered throughout both lungs the largest being ill-defined groundglass opacities in the left lower lobe measuring 5.2 x 5.4 cm on axial image #88. There is been interval development of a new 1.3 cm solid/semisolid nodule in the right lower lobe axial image #77 PLEURA: No mass, effusion, or pneumothorax. VASCULATURE: No abnormality. LARRY: No mass or pathologic adenopathy. MEDIASTINUM: No mass or pathologic adenopathy. CARDIAC: No enlargement. No pericardial effusion. Mild to moderate coronary atherosclerosis AORTA: No aortic aneurysm CHEST WALL: No mass or axillary adenopathy BONES: No bone lesion or fracture. LIMITED ABDOMEN: Clips from cholecystectomy OTHER: Negative. CT/CT lung screening low-dose IMPRESSION: 1.3 cm right lower lobe nodule. Further evaluation required LUNG SCREENING: Lung-RADS Category 4B- Suspicious. Findings for which additional diagnostic testing and/ or tissue sampling is recommended. Chest CT with or without contrast, PET/CT and/ or tissue sampling depending on the * probability of malignancy and comorbidities. PET/CT may be used when there is a >= 8 mm solid component. Electronically authenticated by: LEV CARDONA Date: 09/13/2023 09:44 Dictated By: Lev Cardona M.D. Signed By: 09/13/23945 DD/ 3 TD/TT: Elementary School Tutor: Procedure Note Radiology, Radiologist, MD - 09/13/2023 [place] [address] CT Scan Report Signed Patient: FAUSTO CORRIGAN MMR#: [id number] : 1960cct:[id number] Age/Sex: 63 / FADM Date: 09/10/23 Loc: CT Attending Dr: Oliver Alvarado D.O. Ordering Physician: Oliver Alvarado D.O. Date of Service: 09/10/23 Procedure(s): CT lung screening low-dose Accession Number(s): [id number] cc: Veronique Harris NP [facility] [place] [id number] Patient Name: FAUSTO CORRIGAN MRN: [id number] date: 1960 Sex: F Assigned Patient Location: CT Current Patient Location: Accession/Order Number: [id number] Exam Date: 09/10/2023 10:28 Report Date: 09/13/2023 09:44 At the request of: OLIVER ALVARADO Procedure: CT lung screening low-dose EXAMINATION: CT lung screening low-dose HISTORY: Screening For Respiratory Malignancy Z12.2, Nicotine Depende COMPARISON: 09/01/2022 TECHNIQUE: Axial, Coronal, and Sagittal images were created without the administration of IV contrast material. Dose reduction techniques were achieved by using automated exposure control and/or adjustment of mA and/or kV according to patient size and/or use of iterative reconstruction technique. FINDINGS: LUNGS: Mild stable emphysematous changes with an apical predominance.Again demonstrated are multiple areas of patchy solid and semisolid opacities scattered throughout both lungs the largest being ill-defined groundglass opacities in the left lower lobe measuring 5.2 x 5.4 cm on axial image#88. There is been interval development of a new 1.3 cm solid/semisolid nodulein the right lower lobe axial image #77 PLEURA: No mass, effusion, or pneumothorax. VASCULATURE: No abnormality. LARRY: No mass or pathologic adenopathy. MEDIASTINUM: No mass or pathologic adenopathy. CARDIAC: No enlargement. No pericardial effusion. Mild to moderatecoronary atherosclerosis AORTA: No aortic aneurysm CHEST WALL: No mass or axillary adenopathy BONES: No bone lesion or fracture. LIMITED ABDOMEN: Clips from cholecystectomy OTHER: Negative. CT/CT lung screening low-dose IMPRESSION: 1.3 cm right lower lobe nodule. Further evaluation required LUNG SCREENING: Lung-RADS Category 4B- Suspicious. Findings for which additional diagnostic testing and/ or tissue sampling is recommended.Chest CT with or without contrast, PET/CT and/ or tissue sampling depending on the* probability of malignancy and comorbidities. PET/CT may be used when thereis a >= 8 mm solid component. Electronically authenticated by: LEV CARDONA Date: 09/13/2023 09:44 Dictated By: Lev Cardona M.D. Signed By:09/13/23945 DD/ 3 TD/TT: Elementary School Tutor: Generic External Data Provider [facility] Final Result documented in this encounter Visit Diagnoses Not on filedocumented in this encounter Care Teams Green Feed Attendant Relationship Specialty Start Date End Date Stuart Deluca MD [address] [place] [address] PCP - General Family Medicine 03/17/23 Veronique Harris NP [address] [place] [address] PCP - [facility] 03/27/24 Jany Saini, HOUSEKEEPER MANAGER [address] [place], [place] [phone] Steel Wool Machine Operator Family Medicine 07/25/24 07/27/24 Marta Doll LPN [address] [place] [address] Licensed Practical Nurse Family Medicine 07/27/2406/29 Jb Valdez, TREVOR [address] [place] [address] Family Medicine 07/27/24 documented as of this encounter
--- OUTSIDE RECORDS SUMMARY | 2025-05-09 08:53 | XMS_ITS | CCD ---
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 Comment on above: Performed By: #### U AMIC #### [facility] [address] [place] [address] Dr. Oneal Vieyra Color (U) YELLOW Normal YELLOW [facility] Comment on above: Performed By: #### U AMIC #### [facility] [address] [address] [address] Oneal Vieyra Crystals LM Nom (Urine sed) NONE SEEN Normal NONE SEEN [facility] Comment on above: Performed By: #### U AMIC #### [facility] [address] [place] [address] Dr. Oneal Vieyra Epithelial cells LM Ql (Urine sed) FEW Abnormal NONE SEEN /RARE [facility] Comment on above: Performed By: #### U AMIC #### [facility] [address] [place] [address] Dr. Oneal Vieyra Glucose Ql (U) >1000 Abnormal NEGATIVE [facility] Comment on above: Performed By: #### U AMIC #### [facility] [address] [place] [address] Dr. Oneal Vieyra Hemoglobin Ql (U) SMALL Abnormal NEGATIVE [facility] Comment on above: Performed By: #### U AMIC #### [facility] [address] [place] [address] Dr. Oneal Vieyra Ketones Ql (U) Negative Normal NEGATIVE [facility] Comment on above: Performed By: #### U AMIC #### [facility] [address] [address] [address] Oneal Vieyra LEUKOCYTES Negative Normal NEGATIVE [facility] Comment on above: Performed By: #### U AMIC #### [facility] [address] [address] [address] Oneal Vieyra MUCOUS NONE SEEN Normal NONE SEEN [facility] Comment on above: Performed By: #### U AMIC #### [facility] [address] [address] [address] Oneal Vieyra Nitrite Ql (U) Negative Normal NEGATIVE [facility] Comment on above: Performed By: #### U AMIC #### [facility] [address] [place] [address] Dr. Oneal Vieyra pH (U) 5.5 [pH] Normal 5-9 [facility] Comment on above: Performed By: #### U AMIC #### [facility] [address] [place] [address] Dr. Oneal Vieyra RBC 0-2 Normal 0-2 [facility] Comment on above: Performed By: #### U AMIC #### [facility] [address] [place] [address] Dr. Oneal Vieyra SPEC GRAVITY 1.020 Normal 1.005-<=1.0 25 [facility] Comment on above: Performed By: #### U AMIC #### [facility] [address] [place] [address] Dr. Oneal Vieyra UA PROTEIN Negative Normal NEGATIVE/ TRACE [facility] Comment on above: Performed By: #### U AMIC #### [facility] [address] [place] [address] Dr. Oneal Vieyra Urobilinogen Qn (U) 0.2 {Ashwini'U}/dL Normal 0.2 - 1.0 [facility] Comment on above: Performed By: #### U AMIC #### [facility] [address] [place] [address] Dr. Oneal Vieyra WBC NONE SEEN Normal NONE SEEN [facility] Comment on above: Performed By: #### U AMIC #### [facility] [address] [place] [address] Dr. Oneal Vieyra Office Visit (Cardiology)on 10-16-2021 [...] for follow-up. She had inferior ST elevation AL with primary revascularization of the RCA in [...] 16Oct2021 11:41AM Heart Rate65, L Brachial Artery [id number], LUE, Sitting Iveqsreqc42, LUE, Sitting Height5 ft 1 in Rbbkop197 lb BMI Vqfacgncbb55.04 kg/m2 BSA Calculated1.71 Tobacco Usea) Yes Patient encouraged to stop using tobacco productsYes Fall Screeningc) Not medically indicated Physical Exam Constitutional: alert and in no acute distress. Neck: neck is supple, symmetric, trachea midline, no masses and no thyromegaly . (more content not included)... Normal [employer] Tobacco Screening.on 022 Fall risk assessment c) Not medically indicated [facility] [address] DO Work Phone: Tobacco use status CPHS a) Yes [facility] [address] DO Work Phone: Tobacco Screening. Yes -[facility] [address] DO Work Phone: Basic Metabolic Panelon 02-26 Calcium [Mass/Vol] 8.6 mg/dL Normal 8.2-10.2 [facility] Comment on above: Performed By: #### C K, BMP, SCAN CBC, PTT, BNP, PT, TROP #### [facility] [address] Chloride [Moles/Vol] 105 mmol/L Normal 95-114 [facility] Comment on above: Performed By: #### C K, BMP, SCAN CBC, PTT, BNP, PT, TROP #### [facility] [address] CO2 [Moles/Vol] 21.2 mmol/L Low 22.0-30.0 [facility] Comment on above: Performed By: #### C K, BMP, SCAN CBC, PTT, BNP, PT, TROP #### [facility] [address] [place] [address] [place] Creatinine [Mass/Vol] 1.26 mg/dL High 0.44-1.03 [facility] Comment on above: Performed By: #### C K, BMP, SCAN CBC, PTT, BNP, PT, TROP #### [facility] [address] [id number] [place] Creatinine Clr Calc Pharmacy 43.69 Normal [facility] Comment on above: Result Comment: PERF ORMED BY: [place] [address] PATHOLOGIST INSTRUCTOR [employer] GIA SHAH M.D. Performed By: #### C K, BMP, SCAN CBC, PTT, BNP, PT, TROP #### [facility] [address] Estimated GFR ( [place] 53 Normal [facility] Comment on above: Result Comment: GFR estimated reference range: According to KDOQI guidelines, <60 ml/min/1.73m2 is sufficient to diagnose a patient with chronic kidney disease. Performed By: #### C K, BMP, SCAN CBC, PTT, BNP, PT, TROP #### [facility] [address] Estimated GFR (Non- Am 44 [facility] Comment on above: Performed By: #### C K, BMP, SCAN CBC, PTT, BNP, PT, TROP #### [address] Glucose [Mass/Vol] 116 mg/dL High 70-100 [facility] Comment on above: Result Comment: [place] Glucose Reference Range is dependent on time and content of last meal. Glucose of more than 200 mg/dL in a nonstressed, ambulatory subject supports the diagnosis of Diabetes Mellitus. ADA recommended reference range Performed By: #### C K, BMP, SCAN CBC, PTT, BNP, PT, TROP #### [address] Potassium [Moles/Vol] 3.3 mmol/L Low 3.5-5.1 [facility] Comment on above: Performed By: #### C K, BMP, SCAN CBC, PTT, BNP, PT, TROP #### [facility] [address] Sodium [Moles/Vol] 139 mmol/L Normal 136-146 [facility] Comment on above: Performed By: #### C K, BMP, SCAN CBC, PTT, BNP, PT, TROP #### [facility] [address] Urea nitrogen [Mass/Vol] 20 mg/dL Normal 9-23 [facility] Comment on above: Performed By: #### C K, BMP, SCAN CBC, PTT, BNP, PT, TROP #### [facility] [address] Creatine Kinaseon 03-21-2021 CK [Catalytic activity/Vol] 87 U/L Normal 22-269 [facility] Comment on above: Performed By: #### C K, BMP, SCAN CBC, PTT, BNP, PT, TROP #### [facility] [address] Creatinine Kinase MBon 03-21 CK.MB [Mass/Vol] 1.6 ng/mL Normal 0.6-6.3 [facility] Comment on above: Performed By: #### C K, BMP, SCAN CBC, PTT, BNP, PT, TROP #### [facility] [address] CKMB Relative Index 1.8 % Normal 0.00-2.50 [facility] Comment on above: Performed By: #### C K, BMP, SCAN CBC, PTT, BNP, PT, TROP #### [facility] [address] ECG 12 lead ECGon 03-21-2021 ECG 12 lead ECG [place] [address] Electrocardiograph Report Signed Patient: Fausto Corrigan MR#: [id number] 0 : 1960 Acct:[id number] Age/Sex: 60 / F ADM Date: 03/19/21 Loc: Room: [address] [place] [address] Type: DIS IN Attending Dr: Kal Kellogg [...] compared with ECG of 20-MAR-2021 14:36, (Unconfirmed) [place] interval has decreased Confirmed by CHRISTA BAEZA DO ([id number]) on 03/21/2021 4:10:41 PM Referred By: Electronically Signed By:CHRISTA BAEZA DO Transcribed By: MUS Dictated By: Christa Baeza DO 03/21/21 0802 Signed By: 03/21/21 1610 Normal [facility] Scan and CBCon 03-21-2021 Basophils (Bld) [#/Vol] 0.1 10*3/uL Normal 0.0-0.2 [facility] Comment on above: Performed By: #### C K, BMP, SCAN CBC, PTT, BNP, PT, TROP #### [facility] [address] [place] [address] Basophils/100 WBC (Bld) 0.5 % Normal . [facility] Comment on above: Performed By: #### C K, BMP, SCAN CBC, PTT, BNP, PT, TROP #### [facility] [address] Eosinophils (Bld) [#/Vol] 0.3 10*3/uL Normal 0.0-0.45 [facility] Comment on above: Performed By: #### C K, BMP, SCAN CBC, PTT, BNP, PT, TROP #### [facility] [address] Eosinophils/100 WBC (Bld) 2.6 % Normal . [facility] Comment on above: Performed By: #### C K, BMP, SCAN CBC, PTT, BNP, PT, TROP #### [facility] [address] Erythrocyte distribution width (RBC) [Ratio] 13.3 % Normal 11.9-15.3 [facility] Comment on above: Performed By: #### C K, BMP, SCAN CBC, PTT, BNP, PT, TROP #### [facility] [address] Hematocrit (Bld) [Volume fraction] 39.1 % Normal 34.0-46.4 [facility] Comment on above: Performed By: #### C K, BMP, SCAN CBC, PTT, BNP, PT, TROP #### [address] Hemoglobin (Bld) [Mass/Vol] 13.2 g/dL Normal 11.8-15.4 [facility] Comment on above: Performed By: #### C K, BMP, SCAN CBC, PTT, BNP, PT, TROP #### [address] Lymphocytes (Bld) [#/Vol] 4.6 10*3/uL Normal 1.00-4.8 [facility] Comment on above: Performed By: #### C K, BMP, SCAN CBC, PTT, BNP, PT, TROP #### [address] Lymphocytes/100 WBC (Bld) 37.3 % Normal . [facility] Comment on above: Performed By: #### C K, BMP, SCAN CBC, PTT, BNP, PT, TROP #### [address] MCH (RBC) [Entitic mass] 31.1 pg Normal 24.7-34.3 [facility] Comment on above: Performed By: #### C K, BMP, SCAN CBC, PTT, BNP, PT, TROP #### [address] MCV (RBC) [Entitic vol] 92.2 fL Normal 80-100 [facility] Comment on above: Performed By: #### C K, BMP, SCAN CBC, PTT, BNP, PT, TROP #### [address] Mean Corpuscular HGB Conc 33.8 g/dL Normal 32.0-35.0 [facility] Comment on above: Performed By: #### C K, BMP, SCAN CBC, PTT, BNP, PT, TROP #### [address] [place] [id number] [place] Monocytes (Bld) [#/Vol] 1.0 10*3/uL High 0.0-0.8 [facility] Comment on above: Performed By: #### C K, BMP, SCAN CBC, PTT, BNP, PT, TROP #### [address] Monocytes/100 WBC (Bld) 8.0 % Normal . [facility] Comment on above: Performed By: #### C K, BMP, SCAN CBC, PTT, BNP, PT, TROP #### [address] Neutrophils (Bld) [#/Vol] 6.4 10*3/uL Normal 1.8-7.7 [facility] Comment on above: Performed By: #### C K, BMP, SCAN CBC, PTT, BNP, PT, TROP #### [address] Neutrophils/100 WBC (Bld) 51.6 % Normal . [facility] Comment on above: Performed By: #### C K, BMP, SCAN CBC, PTT, BNP, PT, TROP #### [address] Nucleated RBC/100 WBC (Bld) [Ratio] 0.2 % Normal 0-0.5 [facility] Comment on above: Performed By: #### C K, BMP, SCAN CBC, PTT, BNP, PT, TROP #### [address] Platelet Estimate Normal Normal Normal [facility] Comment on above: Performed By: #### C K, BMP, SCAN CBC, PTT, BNP, PT, TROP #### [address] Platelet mean volume (Bld) [Entitic vol] 9.3 fL Normal 6.3-10.7 [facility] Comment on above: Performed By: #### C K, BMP, SCAN CBC, PTT, BNP, PT, TROP #### [address] Platelet Morphology Normal Normal Normal [facility] Comment on above: Result Comment: PERF ORMED BY: [place] [address] PATHOLOGIST INSTRUCTOR [employer] GIA SHAH M.D. Performed By: #### C K, BMP, SCAN CBC, PTT, BNP, PT, TROP #### [address] Platelets (Bld) [#/Vol] 250 10*3/uL Normal 150-450 [facility] Comment on above: Performed By: #### C K, BMP, SCAN CBC, PTT, BNP, PT, TROP #### [address] RBC (Bld) [#/Vol] 4.24 10*6/uL Normal 3.60-5.00 [facility] Comment on above: Performed By: #### C K, BMP, SCAN CBC, PTT, BNP, PT, TROP #### [address] RBC morphology finding Nom (Bld) Normal Normal [facility] Comment on above: Performed By: #### C K, BMP, SCAN CBC, PTT, BNP, PT, TROP #### [address] WBC (Bld) [#/Vol] 12.3 10*3/uL High 4.5-11.0 [facility] Comment on above: Performed By: #### C K, BMP, SCAN CBC, PTT, BNP, PT, TROP #### [address] Troponin I(TnI)on 03-21-2021 Troponin I.cardiac [Mass/Vol] 3.93 ng/mL Off scale high 0-0.02 [facility] Comment on above: Result Comment: [place] Cut off value > or equal to 0.03 ng/mL in conjunction with clinical conditions of myocardial infarction. (www.escardio.org/guidelines) PERFORMED BY: [place] [address] PATHOLOGIST INSTRUCTOR [employer]FF[employer]AFET[employer] GIA SHAH M.D. Performed By: #### C K, BMP, SCAN CBC, PTT, BNP, PT, TROP #### [address] Troponin I.cardiac [Mass/Vol] 3.98 ng/mL Off scale high 0-0.02 [facility] Comment on above: Result Comment: [place] Cut off value > or equal to 0.03 ng/mL in conjunction with clinical conditions of myocardial infarction. (www.escardio.org/guidelines) PERFORMED BY: [place] [address] PATHOLOGIST INSTRUCTOR [employer]FFIC [employer]AF[employer] GIA SHAH M.D. Performed By: #### C K, BMP, SCAN CBC, PTT, BNP, PT, TROP #### [address] Basic Metabolic Panelon 06-2 Calcium [Mass/Vol] 9.1 mg/dL Normal 8.2-10.2 [facility] Comment on above: Performed By: #### C K, BMP, SCAN CBC, PTT, BNP, PT, TROP #### [address] Chloride [Moles/Vol] 102 mmol/L Normal 95-114 [facility] Comment on above: Performed By: #### C K, BMP, SCAN CBC, PTT, BNP, PT, TROP #### [address] CO2 [Moles/Vol] 23.3 mmol/L Normal 22.0-30.0 [facility] Comment on above: Performed By: #### C K, BMP, SCAN CBC, PTT, BNP, PT, TROP #### [address] Creatinine [Mass/Vol] 1.15 mg/dL High 0.44-1.03 [facility] Comment on above: Performed By: #### C K, BMP, SCAN CBC, PTT, BNP, PT, TROP #### [address] [place] [address] [place] Creatinine Clr Calc Pharmacy 47.09 [facility] Comment on above: Performed By: #### C K, BMP, SCAN CBC, PTT, BNP, PT, TROP #### [facility] [address] Estimated GFR ( [place] 59 [facility] Comment on above: Result Comment: GFR estimated reference range: According to KDOQI guidelines, <60 ml/min/1.73m2 is sufficient to diagnose a patient with chronic kidney disease. Performed By: #### C K, BMP, SCAN CBC, PTT, BNP, PT, TROP #### [facility] [address] Estimated GFR (Non- Am 48 [facility] Comment on above: Performed By: #### C K, BMP, SCAN CBC, PTT, BNP, PT, TROP #### [facility] [address] Glucose [Mass/Vol] 161 mg/dL High 70-100 [facility] Comment on above: Result Comment: [facility] Glucose Reference Range is dependent on time and content of last meal. Glucose of more than 200 mg/dL in a nonstressed, ambulatory subject supports the diagnosis of Diabetes Mellitus. ADA recommended reference range Performed By: #### C K, BMP, SCAN CBC, PTT, BNP, PT, TROP #### [facility] [address] Potassium [Moles/Vol] 3.1 mmol/L Low 3.5-5.1 [facility] Comment on above: Performed By: #### C K, BMP, SCAN CBC, PTT, BNP, PT, TROP #### [facility] [address] Sodium [Moles/Vol] 136 mmol/L Normal 136-146 [facility] Comment on above: Performed By: #### C K, BMP, SCAN CBC, PTT, BNP, PT, TROP #### [facility] [address] Urea nitrogen [Mass/Vol] 26 mg/dL High 9-23 [facility] Comment on above: Performed By: #### C K, BMP, SCAN CBC, PTT, BNP, PT, TROP #### [address] Coagulation Profileon 2020 aPTT Coag (Bld) [Time] 37.6 s High 25.1-36.5 [facility] Comment on above: Result Comment: PERF ORMED BY: [place] [address] PATHOLOGIST INSTRUCTOR TRAFFIC SAFET[employer] GIA SHAH M.D. Performed By: #### C K, BMP, SCAN CBC, PTT, BNP, PT, TROP #### [address] INR Coag (PPP) [Relative time] 1.1 {INR} Normal [facility] Comment on above: Result [...] SCAN CBC, PTT, BNP, PT, TROP #### [address] PT Coag (PPP) [Time] 12.2 s Normal 9.0-12.9 [facility] Comment on above: Performed By: #### C K, BMP, SCAN CBC, PTT, BNP, PT, TROP #### [facility] [address] Creatine Kinaseon 03-20-2021 CK [Catalytic activity/Vol] 91 U/L Normal 22-269 [facility] Comment on above: Order Comment: NOTIF [id number],[id number] Performed By: #### C K, BMP, SCAN CBC, PTT, BNP, PT, TROP #### [address] CK [Catalytic activity/Vol] 108 U/L Normal 22-269 [facility] Comment on above: Performed By: #### C K, BMP, SCAN CBC, PTT, BNP, PT, TROP #### [address] CK [Catalytic activity/Vol] 101 U/L Normal 22-269 [facility] Comment on above: Performed By: #### C K, BMP, SCAN CBC, PTT, BNP, PT, TROP #### [address] Creatinine Kinase MBon 03-20 CK.MB [Mass/Vol] 1.9 ng/mL Normal 0.6-6.3 [facility] Comment on above: Order Comment: NOTIF IEDNAZ,145 Performed By: #### C K, BMP, SCAN CBC, PTT, BNP, PT, TROP #### [address] CKMB Relative Index 2.0 % Normal 0.00-2.50 [facility] Comment on above: Order Comment: NOTIF IEDNAZ,145 Performed By: #### C K, BMP, SCAN CBC, PTT, BNP, PT, TROP #### [address] CK.MB [Mass/Vol] 2.5 ng/mL Normal 0.6-6.3 [facility] Comment on above: Performed By: #### C K, BMP, SCAN CBC, PTT, BNP, PT, TROP #### [address] CKMB Relative Index 2.3 % Normal 0.00-2.50 [facility] Comment on above: Performed By: #### C K, BMP, SCAN CBC, PTT, BNP, PT, TROP #### [address] CK.MB [Mass/Vol] 3.1 ng/mL Normal 0.6-6.3 [facility] Comment on above: Performed By: #### C K, BMP, SCAN CBC, PTT, BNP, PT, TROP #### [facility] [address] CKMB Relative Index 3.0 % High 0.00-2.50 [facility] Comment on above: Performed By: #### C K, BMP, SCAN CBC, PTT, BNP, PT, TROP #### [facility] [address] ECG 12 lead ECGon 03-20-2021 ECG 12 lead ECG [facility] Main [place] [address] [place] [address] Electrocardiograph Report Signed Patient: Fausto Corrigan MR#: [id number] 0 : 1960 Acct:[id number] Age/Sex: 60 / F ADM Date: 03/19/21 Loc: Room: [address] [place] [address] Type: DIS IN Attending Dr: Kal Kellogg [...] 03/20/21 1436 Signed By: 03/22/21 1705 Normal [facility] Magnesiumon 03-20-2021 Magnesium [Mass/Vol] 2.0 mg/dL Normal 1.6-2.6 [facility] Comment on above: Result Comment: PERF ORMED BY: [place] [address] PATHOLOGIST INSTRUCTOR TRAFFIC SAFETY GIA SHAH M.D. Performed By: #### C K, BMP, SCAN CBC, PTT, BNP, PT, TROP #### [address] Partial Thromboplastin Timeo n 03-20-2021 aPTT Coag (Bld) [Time] 44.7 s High 25.1-36.5 [facility] Comment on above: Order Comment: List the anticoagulant: HEPARIN, UNFRACTIONATED Result Comment: PERF ORMED BY: [place] [address] PATHOLOGIST INSTRUCTOR [employer]FFIC SAFET[employer] GIA SHAH M.D. Performed By: #### C K, BMP, SCAN CBC, PTT, BNP, PT, TROP #### [address] Scan and CBCon 03-20-2021 Basophils (Bld) [#/Vol] 0.1 10*3/uL Normal 0.0-0.2 [facility] Comment on above: Performed By: #### C K, BMP, SCAN CBC, PTT, BNP, PT, TROP #### [address] Basophils/100 WBC (Bld) 0.6 % Normal . [facility] Comment on above: Performed By: #### C K, BMP, SCAN CBC, PTT, BNP, PT, TROP #### [address] Eosinophils (Bld) [#/Vol] 0.3 10*3/uL Normal 0.0-0.45 [facility] Comment on above: Performed By: #### C K, BMP, SCAN CBC, PTT, BNP, PT, TROP #### [address] Eosinophils/100 WBC (Bld) 1.8 % Normal . [facility] Comment on above: Performed By: #### C K, BMP, SCAN CBC, PTT, BNP, PT, TROP #### [address] Erythrocyte distribution width (RBC) [Ratio] 13.2 % Normal 11.9-15.3 [facility] Comment on above: Performed By: #### C K, BMP, SCAN CBC, PTT, BNP, PT, TROP #### [address] Hematocrit (Bld) [Volume fraction] 42.5 % Normal 34.0-46.4 [facility] Comment on above: Performed By: #### C K, BMP, SCAN CBC, PTT, BNP, PT, TROP #### [address] Hemoglobin (Bld) [Mass/Vol] 14.5 g/dL Normal 11.8-15.4 [facility] Comment on above: Performed By: #### C K, BMP, SCAN CBC, PTT, BNP, PT, TROP #### [address] Lymphocytes (Bld) [#/Vol] 5.2 10*3/uL High 1.00-4.8 [facility] Comment on above: Performed By: #### C K, BMP, SCAN CBC, PTT, BNP, PT, TROP #### [address] Lymphocytes/100 WBC (Bld) 31.5 % Normal . [facility] Comment on above: Performed By: #### C K, BMP, SCAN CBC, PTT, BNP, PT, TROP #### [address] MCH (RBC) [Entitic mass] 31.1 pg Normal 24.7-34.3 [facility] Comment on above: Performed By: #### C K, BMP, SCAN CBC, PTT, BNP, PT, TROP #### [address] MCV (RBC) [Entitic vol] 90.8 fL Normal 80-100 [facility] Comment on above: Performed By: #### C K, BMP, SCAN CBC, PTT, BNP, PT, TROP #### [address] Mean Corpuscular HGB Conc 34.2 g/dL Normal 32.0-35.0 [facility] Comment on above: Performed By: #### C K, BMP, SCAN CBC, PTT, BNP, PT, TROP #### [facility] [address] [place] [address] [place] Monocytes (Bld) [#/Vol] 1.1 10*3/uL High 0.0-0.8 [facility] Comment on above: Performed By: #### C K, BMP, SCAN CBC, PTT, BNP, PT, TROP #### [facility] [address] Monocytes/100 WBC (Bld) 6.7 % Normal . [facility] Comment on above: Performed By: #### C K, BMP, SCAN CBC, PTT, BNP, PT, TROP #### [facility] [address] [place] [address] [place] Neutrophils (Bld) [#/Vol] 9.8 10*3/uL High 1.8-7.7 [facility] Comment on above: Performed By: #### C K, BMP, SCAN CBC, PTT, BNP, PT, TROP #### [facility] [address] [place] [address] [place] Neutrophils/100 WBC (Bld) 59.4 % Normal . [facility] Comment on above: Performed By: #### C K, BMP, SCAN CBC, PTT, BNP, PT, TROP #### [facility] [address] [place] [address] [place] Nucleated RBC/100 WBC (Bld) [Ratio] 0.2 % Normal 0-0.5 [facility] Comment on above: Performed By: #### C K, BMP, SCAN CBC, PTT, BNP, PT, TROP #### [facility] [address] [place] [address] [place] Platelet Estimate Normal Normal Normal [facility] Comment on above: Performed By: #### C K, BMP, SCAN CBC, PTT, BNP, PT, TROP #### [facility] [address] [place] [address] [place] Platelet mean volume (Bld) [Entitic vol] 9.4 fL Normal 6.3-10.7 [facility] Comment on above: Performed By: #### C K, BMP, SCAN CBC, PTT, BNP, PT, TROP #### [address] Platelet Morphology Normal Normal Normal [facility] Comment on above: Result Comment: PERF ORMED BY: [place] [address] PATHOLOGIST INSTRUCTOR TRAFFIC SAFETY GIA SHAH M.D. Performed By: #### C K, BMP, SCAN CBC, PTT, BNP, PT, TROP #### [address] Platelets (Bld) [#/Vol] 305 10*3/uL Normal 150-450 [facility] Comment on above: Performed By: #### C K, BMP, SCAN CBC, PTT, BNP, PT, TROP #### [address] RBC (Bld) [#/Vol] 4.68 10*6/uL Normal 3.60-5.00 [facility] Comment on above: Performed By: #### C K, BMP, SCAN CBC, PTT, BNP, PT, TROP #### [address] RBC morphology finding Nom (Bld) Normal Normal [facility] Comment on above: Performed By: #### C K, BMP, SCAN CBC, PTT, BNP, PT, TROP #### [address] WBC (Bld) [#/Vol] 16.5 10*3/uL High 4.5-11.0 [facility] Comment on above: Performed By: #### C K, BMP, SCAN CBC, PTT, BNP, PT, TROP #### [address] Troponin I(TnI)on 03-20-2021 Troponin I.cardiac [Mass/Vol] 4.57 ng/mL Off scale high 0-0.02 [facility] Comment on above: Order Comment: NOTIF NAZ WHITESIDE,[id number] Result Comment: [place] Cut off value > or equal to 0.03 ng/mL in conjunction with clinical conditions of myocardial infarction. (www.escardio.org/guidelines) PERFORMED BY: [place] [address] PATHOLOGIST INSTRUCTOR TRAFFIC SAFETY GIA SHAH M.D. Performed By: #### C K, BMP, SCAN CBC, PTT, BNP, PT, TROP #### [facility] [address] [place] [address] Troponin I.cardiac [Mass/Vol] 5.16 ng/mL Off scale high 0-0.02 [facility] Comment on above: Result Comment: [place] Cut off value > or equal to 0.03 ng/mL in conjunction with clinical conditions of myocardial infarction. (www.escardio.org/guidelines) PERFORMED BY: [place] [address] PATHOLOGIST INSTRUCTOR TRAFFIC SAFETY GIA SHAH M.D. Performed By: #### C K, BMP, SCAN CBC, PTT, BNP, PT, TROP #### [address] Troponin I.cardiac [Mass/Vol] 4.93 ng/mL Off scale high 0-0.02 [facility] Comment on above: Result Comment: [place] Cut off value > or equal to 0.03 ng/mL in conjunction with clinical conditions of myocardial infarction. (www.escardio.org/guidelines) PERFORMED BY: [place] [address] PATHOLOGIST INSTRUCTOR TRAFFIC SAFETY GIA SHAH M.D. Performed By: #### C K, BMP, SCAN CBC, PTT, BNP, PT, TROP #### [facility] [address] [place] [address] [place] XR chest 1V portableon 03-20 XR chest 1V portable [facility] Main [place] [address] [place] [address] XRay Report Signed Patient: Fausto Corrigan MR#: [id number] 0 : 1960 Acct:[id number] Age/Sex: 60 / F ADM Date: 03/19/21 Loc: Room: [address] [place] [address] Type: ADM IN Attending Dr: Kal Kellogg [...] Robel Roland M.D.03/20/2021 8:58 AM Dictation Location: [place] [address] Transcribed By: [facility] 03/20/21 0858 Dictated By: Robel Roland DO 03/20/21 0857 Signed By: 03/20/21 0858 Normal [facility] B-Type Natriuretic Peptideon 03-19-2021 Natriuretic peptide B (Bld) [Mass/Vol] 117.0 pg/mL High 5-100 [facility] Comment on above: Result Comment: PERF ORMED BY: [place] [address] PATHOLOGIST INSTRUCTOR TRAFFIC SAFETY GIA SHAH M.D. Performed By: #### C K, BMP, SCAN CBC, PTT, BNP, PT, TROP #### [facility] [address] [place] [address] Basic Metabolic Panelon 02-26 Calcium [Mass/Vol] 9.9 mg/dL Normal 8.2-10.2 [facility] Comment on above: Performed By: #### C K, BMP, SCAN CBC, PTT, BNP, PT, TROP #### [facility] [address] [place] [address] Chloride [Moles/Vol] 95 mmol/L Normal 95-114 [facility] Comment on above: Performed By: #### C K, BMP, SCAN CBC, PTT, BNP, PT, TROP #### [address] CO2 [Moles/Vol] 28.2 mmol/L Normal 22.0-30.0 [facility] Comment on above: Performed By: #### C K, BMP, SCAN CBC, PTT, BNP, PT, TROP #### [facility] [address] Creatinine [Mass/Vol] 1.41 mg/dL High 0.44-1.03 [facility] Comment on above: Performed By: #### C K, BMP, SCAN CBC, PTT, BNP, PT, TROP #### [address] Creatinine Clr Calc Pharmacy 38.52 [facility] Comment on above: Result Comment: PERF ORMED BY: [place] [address] PATHOLOGIST INSTRUCTOR TRAFFIC SAFETY GIA SHAH M.D. Performed By: #### C K, BMP, SCAN CBC, PTT, BNP, PT, TROP #### [address] Estimated GFR ( [place] 46 [facility] Comment on above: Result Comment: GFR estimated reference range: According to KDOQI guidelines, <60 ml/min/1.73m2 is sufficient to diagnose a patient with chronic kidney disease. Performed By: #### C K, BMP, SCAN CBC, PTT, BNP, PT, TROP #### [address] Estimated GFR (Non- Am 38 [facility] Comment on above: Performed By: #### C K, BMP, SCAN CBC, PTT, BNP, PT, TROP #### [address] Glucose [Mass/Vol] 143 mg/dL High 70-100 [facility] Comment on above: Result Comment: [place] Glucose Reference Range is dependent on time and content of last meal. Glucose of more than 200 mg/dL in a nonstressed, ambulatory subject supports the diagnosis of Diabetes Mellitus. ADA recommended reference range Performed By: #### C K, BMP, SCAN CBC, PTT, BNP, PT, TROP #### [facility] [address] Potassium [Moles/Vol] 3.4 mmol/L Low 3.5-5.1 [facility] Comment on above: Performed By: #### C K, BMP, SCAN CBC, PTT, BNP, PT, TROP #### [facility] [address] Sodium [Moles/Vol] 139 mmol/L Normal 136-146 [facility] Comment on above: Performed By: #### C K, BMP, SCAN CBC, PTT, BNP, PT, TROP #### [facility] [address] Urea nitrogen [Mass/Vol] 28 mg/dL High 9-23 [facility] Comment on above: Performed By: #### C K, BMP, SCAN CBC, PTT, BNP, PT, TROP #### [facility] [address] COVID-19 Antigenon 1 COVID-19 [facility] [...] its performance Kristan Disclaimer characteristic determined by [employer] and Kristan Disclaimer validated at [facility]. This Kristan Disclaimer test has [...] Emergency Use Authorization for Coronavirus Kristan Disclaimer is during the Public Health Emergency) Kristan Disclaimer [...] is terminated or revoked sooner. PERFORMED BY: [place] [id number] PATHOLOGIST INSTRUCTOR TRAFFIC SAFETY GIA SHAH M.D. Normal [facility] Comment on above: Performed By: #### C OVID 19 [facility] [place], COVID-19 KRISTAN #### [facility] [address] [place] [id number] [facility] COVID-19 FRMCon 03-19-2021 SARS-CoV-2 (COVID-19) RNA SHERRIE+probe Ql (Unsp spec) Negative Normal Negative [facility] Comment on above: Order Comment: Healt hcare Worker?: N Result Comment: Testing for SARS-CoV-2 by RT-PCR This test was developed and its performance characteristics determined by [employer] and validated at the [facility]. This test has not been [...] is terminated or revoked sooner. PERFORMED BY: [place] [id number] PATHOLOGIST INSTRUCTOR TRAFFIC SAFETY GIA SHAH M.D. Performed By: #### C OVID 19 [facility] [place], COVID-19 KRISTAN #### [facility] [address] [place], [place] [id number] [facility] Creatine Kinaseon 03-19-2021 CK [Catalytic activity/Vol] 123 U/L Normal 22-269 [facility] Comment on above: Performed By: #### C K, BMP, SCAN CBC, PTT, BNP, PT, TROP #### [place] [id number] [facility] ECG 12 lead ECGon 03-19-2021 ECG 12 lead ECG [facility] [address] Electrocardiograph Report Signed Patient: Fausto Corrigan MR#: [id number] 0 : 1960 Acct:[id number] Age/Sex: 60 / F ADM Date: 03/19/21 Loc: 4C Room: [address] [place] [address] Type: ADM IN Attending Dr: Kal Kellogg [...] rhythm Inferior infarct , possibly acute ACUTE AL / STEMI Consider right ventricular involvement in acute inferior infarct Abnormal ECG When compared with ECG of 19-MAR-2021 20:15, (Unconfirmed) No significant change was found Confirmed by LAYNE SIMON DO ([id number]) on 03/20/2021 2:13:27 AM Referred By: Electronically Signed By:LAYNE SIMON DO Transcribed By: MUS Dictated By: Layne Simon DO 03/19/212021 Signed By: 03/20/21 0213 [facility] ECG 12 lead ECG [facility] Main [place] [id number] Electrocardiograph Report Signed Patient: Fausto Corrigan MR#: [id number] 0 : 1960 Acct:[id number] Age/Sex: 60 / F ADM Date: 03/19/21 Loc: 4C Room: [address] [place] [address] Type: ADM IN Attending Dr: Kal Kellogg [...] consider inferior injury or acute infarct ACUTE AL / STEMI Consider right ventricular involvement in acute inferior infarct Abnormal ECG No previous ECGs available Confirmed by LAYNE SIMON DO ([id number]) on 03/20/2021 2:13:27 AM Referred By: Electronically Signed By:LAYNE SIMON DO Transcribed By: MUS Dictated By: Layne Simon DO 03/19/212014 Signed By: 03/20/21 0213 [facility] Partial Thromboplastin Timeo n 03-19-2021 aPTT Coag (Bld) [Time] 29.7 s Normal 25.1-36.5 [facility] Comment on above: Result Comment: PERF ORMED BY: [place] [address] PATHOLOGIST INSTRUCTOR TRAFFIC SAFETY GIA SHAH M.D. Performed By: #### C K, BMP, SCAN CBC, PTT, BNP, PT, TROP #### [facility] [address] [place] [address] Prothrombin Time INRon 03-19 INR Coag (PPP) [Relative time] 1.1 {INR} [facility] Comment on above: Result Comment: INR [...] SCAN CBC, PTT, BNP, PT, TROP #### [facility] [address] [place] [address] PT Coag (PPP) [Time] 12.2 s Normal 9.0-12.9 [facility] Comment on above: Performed By: #### C K, BMP, SCAN CBC, PTT, BNP, PT, TROP #### [address] Scan and CBCon 03-19-2021 Basophils (Bld) [#/Vol] 0.2 10*3/uL Normal 0.0-0.2 [facility] Comment on above: Performed By: #### C K, BMP, SCAN CBC, PTT, BNP, PT, TROP #### [address] Basophils/100 WBC (Bld) 0.9 % Normal . [facility] Comment on above: Performed By: #### C K, BMP, SCAN CBC, PTT, BNP, PT, TROP #### [address] Eosinophils (Bld) [#/Vol] 0.4 10*3/uL Normal 0.0-0.45 [facility] Comment on above: Performed By: #### C K, BMP, SCAN CBC, PTT, BNP, PT, TROP #### [address] Eosinophils/100 WBC (Bld) 2.1 % Normal . [facility] Comment on above: Performed By: #### C K, BMP, SCAN CBC, PTT, BNP, PT, TROP #### [address] Erythrocyte distribution width (RBC) [Ratio] 13.3 % Normal 11.9-15.3 [facility] Comment on above: Performed By: #### C K, BMP, SCAN CBC, PTT, BNP, PT, TROP #### [address] Hematocrit (Bld) [Volume fraction] 46.2 % Normal 34.0-46.4 [facility] Comment on above: Performed By: #### C K, BMP, SCAN CBC, PTT, BNP, PT, TROP #### [address] Hemoglobin (Bld) [Mass/Vol] 15.7 g/dL High 11.8-15.4 [facility] Comment on above: Performed By: #### C K, BMP, SCAN CBC, PTT, BNP, PT, TROP #### [address] Lymphocytes (Bld) [#/Vol] 5.0 10*3/uL High 1.00-4.8 [facility] Comment on above: Performed By: #### C K, BMP, SCAN CBC, PTT, BNP, PT, TROP #### [address] Lymphocytes/100 WBC (Bld) 27.2 % Normal . [facility] Comment on above: Performed By: #### C K, BMP, SCAN CBC, PTT, BNP, PT, TROP #### [address] MCH (RBC) [Entitic mass] 31.2 pg Normal 24.7-34.3 [facility] Comment on above: Performed By: #### C K, BMP, SCAN CBC, PTT, BNP, PT, TROP #### [address] MCV (RBC) [Entitic vol] 91.8 fL Normal 80-100 [facility] Comment on above: Performed By: #### C K, BMP, SCAN CBC, PTT, BNP, PT, TROP #### [address] Mean Corpuscular HGB Conc 34.0 g/dL Normal 32.0-35.0 [facility] Comment on above: Performed By: #### C K, BMP, SCAN CBC, PTT, BNP, PT, TROP #### [address] Monocytes (Bld) [#/Vol] 1.4 10*3/uL High 0.0-0.8 [facility] Comment on above: Performed By: #### C K, BMP, SCAN CBC, PTT, BNP, PT, TROP #### [facility] [address] [place] [address] [place] Monocytes/100 WBC (Bld) 7.5 % Normal . [facility] Comment on above: Performed By: #### C K, BMP, SCAN CBC, PTT, BNP, PT, TROP #### [facility] [address] Neutrophils (Bld) [#/Vol] 11.5 10*3/uL High 1.8-7.7 [facility] Comment on above: Performed By: #### C K, BMP, SCAN CBC, PTT, BNP, PT, TROP #### [address] Neutrophils/100 WBC (Bld) 62.3 % Normal . [facility] Comment on above: Performed By: #### C K, BMP, SCAN CBC, PTT, BNP, PT, TROP #### [address] Nucleated RBC/100 WBC (Bld) [Ratio] 0.2 % Normal 0-0.5 [facility] Comment on above: Performed By: #### C K, BMP, SCAN CBC, PTT, BNP, PT, TROP #### [address] Platelet Estimate Normal Normal Normal [facility] Comment on above: Performed By: #### C K, BMP, SCAN CBC, PTT, BNP, PT, TROP #### [address] Platelet mean volume (Bld) [Entitic vol] 9.6 fL Normal 6.3-10.7 [facility] Comment on above: Performed By: #### C K, BMP, SCAN CBC, PTT, BNP, PT, TROP #### [address] Platelet Morphology Normal Normal Normal [facility] Comment on above: Result Comment: PERF ORMED BY: [place] [address] PATHOLOGIST INSTRUCTOR TRAFFIC SAFETY GIA SHAH M.D. Performed By: #### C K, BMP, SCAN CBC, PTT, BNP, PT, TROP #### [facility] [address] Platelets (Bld) [#/Vol] 313 10*3/uL Normal 150-450 [facility] Comment on above: Performed By: #### C K, BMP, SCAN CBC, PTT, BNP, PT, TROP #### [facility] [address] RBC (Bld) [#/Vol] 5.03 10*6/uL High 3.60-5.00 [facility] Comment on above: Performed By: #### C K, BMP, SCAN CBC, PTT, BNP, PT, TROP #### [facility] [address] RBC morphology finding Nom (Bld) Normal Normal [facility] Comment on above: Performed By: #### C K, BMP, SCAN CBC, PTT, BNP, PT, TROP #### [address] WBC (Bld) [#/Vol] 18.4 10*3/uL High 4.5-11.0 [facility] Comment on above: Performed By: #### C K, BMP, SCAN CBC, PTT, BNP, PT, TROP #### [address] Kristan Ag Negativeon 03-19-20 21 Kristan Ag Negative Negative Normal Negative [facility] Comment on above: Result Comment: This is a duplicate Kristan SARS Antigen (KOLTON) result to be used for statistical tracking purpose only. PERFORMED BY: [place] [address] PATHOLOGIST INSTRUCTOR TRAFFIC SAFETY GIA SHAH M.D. Performed By: #### C OVID 19 [facility] [place], COVID-19 KRISTAN #### [address] Troponin I(TnI)on 03-19-2021 Troponin I.cardiac [Mass/Vol] 4.25 ng/mL Off scale high 0-0.02 [facility] Comment on above: Result Comment: Crit ical value result called at 2209 on 03/19/21 [place] Cut off value > or equal to 0.03 ng/mL in conjunction with clinical conditions of myocardial infarction. (www.escardio.org/guidelines) PERFORMED BY: [facility] [address] [place] [address] PATHOLOGIST INSTRUCTOR TRAFFIC SAFETY GIA SHAH M.D. Performed By: #### C K, BMP, SCAN CBC, PTT, BNP, PT, TROP #### [facility] [address] [place] [id number] [facility] CNOVon 03-17-2018 CNOV Office Visit (AGHWW1) ----FAUSTO CORRIGAN ([id number]) 1960 [facility] Time Provider Department03/17/18 1:30 PM THOMAS DELGADILLO [...] Alcohol use: No Drug use: NoREVIEW OF ZipMatch noteMSK: + as noted in HPI.Physical Examination:On [...] Protective sensation intact at all pedalsites via [place] Gabrielle 5.07 monofilament bilateral. 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]Order(s):XR FOOT GENERAL 3V AP/LAT/OBL RT [[id number]] Order #: [id number] CONSULT TO ORTHOTIC/PROSTHETIC [[id number]] Order #: [id number]: 1Prescriptions as of 03/17/2018 Sig: ALBUTEROL SULFATE [...] (around 05/17/2018).Follow-up and Disposition History RecordedEncounter Number: [id number] Status:Closed by THOMAS DELGADILLO DPM on 04/17/18 [facility] PROGRESSon 03-17-2018 Protein HNO ID: [id number] thor: Thomas Jiang: (none)Author Type: PhysicianType: Progress [...] Alcohol use: No Drug use: NoREVIEW OF ZipMatch noteMSK: + as noted in HPI.Physical Examination:On General Observation: Patient is a pleasant, cooperative, well year oldadult female. The patient is alert [...] Protective sensation intact at allpedal sites via [place] Gabrielle 5.07 monofilament bilateral.Proprioception intact at the [...] patient to obtain and use to see [facility] Follow up in 2 monthsYosi Yu DPM PGY2I personally saw and evaluated the patient. I reviewed the resident'snote. I agree with the resident's assessment and plan unless otherwisenoted.Thomas Delgadillo DPM, FACFAS Normal [facility] Migue 09-01-2017 OMAR Telephone (LUCIA) ----FAUSTO CORRIGAN ([id number]) 1960 [facility] Time Provider Zimdtlqcqi21/6/17 AIMEE HERNANDEZ During your visit today, we recorded the following information about you:Krista Lagos 09/01/2017 10:30 AM SignedPatient called to tell us that her pharmacist told her to get a prior auth forher Welsh.Krista Lagos 09/01/2017 11:00 AM SignedSpoke to Pharmacy. [...] - AnaphylaxisDate Reviewed: 07/26/2017Reviewed by: Sis [facility] - Fully AssessedReason for Visit: Insurance Authorization [[id number]] Cmt: pt called requesting prior auth for [...] Status:Closed by KRISTA LAGOS on 09/01/17 Normal [facility] CNCOon 08-18-2017 CNCO Letter TextNov2016Fausto Corrigan[address] [address]Tpio Ms. Fausto Corrigan,It was a pleasure to see you in the Department of Pulmonary Medicine on07/26/2017.Attached please find a copy of your Visit Summary.I appreciate having the opportunity to see you. If I can be of furtherassistance to you, or if you have any questions regarding this report, pleasefeel free to contact my office.Sincerely,NATE Chaparro/Xinchment: Visit Summary Normal [facility] CBCon 07-26-2017 Erythrocyte distribution width Auto Ratio (RBC) 12.9 % Normal 11.5-15.0 [facility] Comment on above: Performed By: #### C BC, CMP ####[facility] [address] [place], [place] [phone] Erythrocytes (RBC) 10*6/uL Normal <0.01 [facility] Comment on above: Performed By: #### C BC, CMP ####[facility] [address] [place], [place] [phone] Erythrocytes (RBC) 5.08 10*6/uL Normal 3.90-5.20 [facility] Comment on above: Performed By: #### C BC, CMP ####[facility] [address] [place], [place] [phone] Hematocrit (HCT) 47.7 % High 36.0-46.0 [facility] Comment on above: Performed By: #### C BC, CMP ####[facility] [address] [place], [place] [phone] Hemoglobin mass conc (Bld) 15.3 g/dL Normal 11.5-15.5 [facility] Comment on above: Performed By: #### Andrzej TALLEY, CMP ####[place] [address] [place] [address], [place] [phone] MCH 30.1 pG Normal 26.0-34.0 [facility] Comment on above: Performed By: #### Andrzej TALLEY, CMP ####[address] [place], [place] [phone] MCHC mass conc (RBC) 32.1 g/dL Normal 30.5-36.0 [facility] Comment on above: Performed By: #### Andrzej TALLEY, CMP ####[address] [phone] MCV 93.9 fL Normal 80.0-100.0 [facility] Comment on above: Performed By: #### Andrzej TALLEY, CMP ####[address] [phone] Platelet mean volume (PMV) 11.9 fL Normal 9.0-12.7 [facility] Comment on above: Performed By: #### Andrzej TALLEY, CMP ####[address] [phone] Platelets 283 10*3/uL Normal 150-400 [facility] Comment on above: Performed By: #### Andrzej TALLEY, CMP ####[address] [phone] WBC (Leukocytes) 13.36 10*3/uL High 3.70-11.00 [facility] Comment on above: Performed By: #### Andrzej TALLEY, CMP ####[facility] [place] [address] [place], [place] [phone] CNOVon 07-26-2017 CNOV Office Visit (PSSCMN) ----FAUSTO CORRIGAN ([id number]) 1960 FDate Time Provider Abjhyupuvb26/30/17 3:30 PM [facility] PSSCMN During your visit today, we recorded the following information about you: Pulse Blood pressure Weight Height 75/minute 120/69 73 kg 1.52 Shannan Sosa DO 07/26/2017 5:18 PM SignedANESTHESIA PRE-OPERATIVE ASSESSMENT (PACE)SERVICE DATE: 07/26/2017SERVICE TIME: 4:56 PMASSESSMENT ANDamp; PLAN:Fausto Corrigan is a 57 year old female scheduled for sigmoid colectomy 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 [...] Vogel in regards to postponing case till pulm recommendations so pulmonary status can be [...] 4:26 PM PAGER/CONTACT #:Referring Provider: ESEQUIEL THOMAS [[id number]]Allergies As of Date: 07/26/2017 Noted Allergy ReactionSULFA (SULFONAMIDE ANTIBIOTICS) 06/07/2017 4 - Hives 10 - AnaphylaxisDate Reviewed: 07/26/2017Reviewed by: Sis Kirkpatrick [facility] - Fully AssessedPrimary Visit Diagnosis:Pre-op evaluation [Z01.818]Prescriptions [...] Cosign Required by: James Vogel III[] Normal [facility] CNOV Office Visit (IMPAMN) ----FAUSTO CORRIGAN ([id number]) 1960 FDate Time Provider Wnmulczkjw17/30/17 2:15 PM RIVERA PATRICIA) JULIO C During your visit today, we recorded the [...] the shared medical record.Referring Surgeon: Dr. Esequiel Gaineste of Surgery: 08/03/2017Planned Surgery/Procedure:COLECTOMY SIGMOID W/ COLORECTAL [...] or fevers.Neuro: No history of TIA's, stroke, VETERINARY TECHNOLOGY INSTRUCTOR tumor, impaired sensorium, hemiplegia,paraplegia or quadriplegia. No neurological symptoms or problems.Respiratory: COPD on nebulizersCardiovascular: No history of HTN requiring medication, no history of angina,CHF, AL, cardiac surgery or stents. Denies rest pain, gangrene orrevascularization/amputati on for PVD. No history of cardiovascular symptoms orproblems.GI: Peptic Ulcer Disease on ZantacGU: No history of UTI in past 6 weeks. No history of renal failure. Notcurrently on or requiring dialysis. 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 Fernandez of Surgery: 08/03/2017Planned Surgery/Procedure: Sigmoid Colectomy w/ Treverergies have been reviewed and verified. They include the following:Sulfa (Sulfonamide Antibiotics)Social HistorySubstance Use Topics- Smoking status: Former Smoker Years: 20.00 Types: Cigarettes Start date: 06/07/1997 Quit date: 06/26/2017- Smokeless tobacco: Never Used Comment: smokes 3-4 daily- Alcohol use NoMedications reviewed and updated: Armida Patricia MD 07/26/2017 4:05 PM Signed [facility]Patient Instructions for SurgeryFOOD INSTRUCTIONS:NO solid [...] visit please do nothesitate to contact the [facility] at [phone] or [phone], [phone].Signature: Rivera Patricia MDDate: July 26, 2017Referring Provider: ESEQUIEL THOMAS [[id number]]Allergies As of Date: 07/26/2017 Noted Allergy ReactionSULFA (SULFONAMIDE ANTIBIOTICS) 06/07/2017 4 - Hives 10 - AnaphylaxisDate Reviewed: 07/26/2017Reviewed by: Sis [facility] - Fully AssessedPrimary Visit Diagnosis:Chronic obstructive pulmonary disease, unspecified COPD type ([facility]) [J44.9] Other Visit Diagnoses:Pre-operative examination [Z01.818] [...] HYCLATE 100 MG CAPSULE >> Sis Kirkpatrick [facility] 07/26/2017 3:41 PM >> SIS JOSUE WedJul 26, 2017 3:41 PM PREDNISONE 10 MG TABLET >> Sis Kirkpatrick [facility] 07/26/2017 3:41 PM >> SIS JOSUE WedJul 26, 2017 3:41 PM ATENOLOL 50 MG-CHLORTHALIDONE 25 MG TABLET >> Sis Kirkpatrick [facility] 07/26/2017 3:41 PM >> SIS JOSUE WedJul 26, 2017 3:41 PM OXYCODONE-ACETAMINOPHEN 5 MG-325 MG TABLET >> Sis Kirkpatrick [facility] 07/26/2017 3:41 PM >> SIS JOSUE WedJul 26, 2017 3:41 PM DOCUSATE SODIUM 100 MG CAPSULE >> Sis Kirkpatrick [facility] 07/26/2017 3:41 PM >> SIS JOSUE WedJul 26, 2017 3:41 PMProblem List As Of Date 07/26/2017 Noted Resolved 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 Other instructions from your clinician: [facility] Patient Instructions for Surgery FOOD [...] to contact the [facility] center at [phone] or [phone], ext [phone]. Signature: Rivera Patricia MD Date: July 26, 2017Encounter Number: [id number] Status:Closed by RIVERA PATRICIA MD on 07/26/17 Normal [facility] CNOV Office Visit (ENDOMN) ----FAUSTO CORRIGAN ([id number]) 1960 [facility] Time Provider Uyrbbjrhqm11/30/17 1:20 PM IVAN HYDE) ENDOMN During your visit today, we recorded the following information about you: Weight 73 kgToshia Javed, RN, RN 07/26/2017 2:21 PM SignedThank you for choosing the [facility] Department of Endocrinology,Diabetes and Metabolism. Being [...] lost opportunity for patients to receive [facility] care at the [facility].To Cancel an appointment, please choose one of the following: - Call the Appointment Call Center at [phone] - From [employer], Go to Appointments ? Cancel ApptsIf cancelling, consider your need to reschedule to prevent further delays inyour care.To Schedule an appointment, please choose one of the following: - Call the Appointment Call Center at [phone] - From MyChart, Go to Appointments ? Request an AppSeth Hyde MD 07/27/2017 11:34 PM SignedDIABETES INITIAL CONSULTPATIENT NAME: Fausto CorriganMRN: [id number] DATE: 07/26/2017SERVICE TIME:REASON FOR CONSULT: DM Type 2REQUESTING PHYSICIAN:Ivan Hyde MD[address] [address]TZDIIYC CARE PHYSICIAN: No PcpSUBJECTIVEHISTORY OF PRESENT ILLNESS: [...] EXAM:Wt 73 kg (161 lb) BMI 31.61 kg/s3Napagzd: Well appearing, alert, in no acute distress, [...] 26, 2017TIME: 2:32 PMReferring Provider: IVAN HYDE) [[id number]]Allergies As of Date: 07/26/2017 Noted Allergy ReactionSULFA (SULFONAMIDE ANTIBIOTICS) 06/07/2017 4 - Hives 10 - AnaphylaxisDate Reviewed: 07/26/2017Reviewed by: Sis Kirkpatrick [facility] - Fully AssessedReason for Visit: Diabetes [34]Primary Visit Diagnosis:Uncontrolled type 2 diabetes mellitus without complication, without long-term current use of insulin (HCC) [E11.65]Order(s):HB A1C B/O [[id number]] Order #: [id number] TSH BLD [SQTSH] Order #: [id number] FUTUREPrescriptions as of 07/26/2017 Sig: ALBUTEROL SULFATE [...] your clinician: Thank you for choosing the [facility] Department of Endocrinology, Diabetes and Metabolism. Being able to provide excellent health care has allowed us to be # 3 in the country according to [employer] World [employer]. Did you know that you need to call 48 hours in advance of your scheduled visit, if you are unable to make your appointment? The [facility] [place] thanks you for your commitment, because patients not showing to their appointment results in a lost opportunity for patients to receive world class health care at the [facility]. To Cancel an appointment, please choose one of the following: - Call the Appointment Call Center at [phone] - From [employer], Go to Appointments ? Cancel Appts If cancelling, consider your need to reschedule to prevent further delays in your care. To Schedule an appointment, please choose one of the following: - Call the Appointment Call Center at [phone] - From [employer], Go to Appointments ? Request an ApptEncounter Number: [id number] Status:Closed by IVAN HYDE MD on 07/27/17 Normal [facility] CNOV Office Visit (PULMMN) ----FAUSTO CORRIGAN ([id number]) 1960 [facility] Time Provider Fgyumckeuj83/30/17 9:50 AM AIMEE HERNANDEZ During your visit today, we recorded the following information about you: Temperature Pulse Respiration Blood pressure 98.5 degrees 74/minute 20/minute 116/67 Weight Height 73 kg 1.524 Jo Hernandez MD 07/26/2017 3:23 PM SignedRespiratory InstitutePulmonary ConsultationCC: Pre-operative evaluationConsultation requested by Dr. Thomas for a pre-operative pulmonary evaluation.My final recommendations will be communicated to the requesting health careprovider by way of the shared medical record for internal providers or lettervia the [employer] for external providers.HISTORY OF PRESENT ILLNESSFausto [...] daily Alcohol use: No Drug use: NoPrivate rn homecare for elderly peopleGets sick a lot from themPreviously worked in [employer], making plastic parts, [place] plasticwith some occupational exposure from thatOff an [...] and radiographsRadiology:PFT:SPI ROMETRY WITH DILATOR IF OBSTRUCTED ([id number]) - ordered on 07/26/17 [facility] [address] [place] [address] Test Date: 6251-24-42Ibg Name: FAUSTO CORRIGAN Department: Room:Gender: Female 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 2 07/26/2017 12:14:11PM PRE/POST- ATS acceptability and repeatabilitystandards for spirometry met.Medications and Allergies were reviewed forpossibledrug interactions per policy MM-102. No contraindications or sensitivities werenoted. Respiratory meds taken in past 72H: Albuterol / 16 hours before testing. 4 puffs albuterol (360 mcg) delivered by MDI via valved holding chamber, HRpre=80/min, HRpost= 72/min. /JAQUAN//DIO nguyen??IMPRESSION: [facility] Respiratory [place] Pulmonary Function Lab Pred LLN ULN Pre % Post % % chgDate [id number] 11:44AM 12:10PM Height 152.4 152.4Weight 72.6 72.6 [...] 3.57 2.11 71 2.13 72 1 Cardia c:DUY - ROSEANN AND Ab Shekhar is a 57 year [...] a 4.2%% chance of postoperative respiratory failure (GuridnerRespiratoray Failure Index. OLAF Fair[place]. Nancie Surg 2000; 232: 242). THaving a respiratory infection within the past month increases the risk. Mariegree with postponing surgery until Aug 24 to reduce her risk.RECOMMENDATIONS:In order to minimize the risk of complications and optimize pulmonary status,we recommend the following:-Encourage aggressive incentive spirometry hourly both ayse-operatively andpost-operatively as tolerated-Early ambulation and physical therapy as tolerated mdzo-xanlzsndrfw-Lcffojno narcotics as much as possible-Bronchodilators as needed [...] illnessMARIO ALBERTO Chaparroulmonary and Critical Care MedicineRespiratory InstituteAshtabula General HospitalAimee Hernandez MD 07/26/2017 1:35 PM AddendumConsider lung cancer screening in the futureI would like to see you the day before your surgery to make sure you're feelingbetterPlease get the 6 minute walk test the same dayReferring Provider: ESEQUIEL THOMAS [[id number]]Allergies As of Date: 07/26/2017 Noted Allergy ReactionSULFA [...] wheezing.).Disp: 1 InhalerRfl: 5 SIX MINUTE WALK [[id number]] Order #: [id number] FUTUREPrescriptions as of 07/26/2017 Sig: ALBUTEROL SULFATE [...] (on 08/23/2017).Follow-up and Disposition History RecordedEncounter Number: [id number] Status:Closed by AIMEE HERNANDEZ MD on 07/26/17 Normal [facility] Comp Metabolic Panelon 07-26 Alanine aminotransferase (ALT) 19 U/L Normal 7-38 [facility] Comment on above: Performed By: #### C BC, CMP ####[facility] [place] [phone] Albumin 4.3 g/dL Normal 3.9-4.9 [facility] Comment on above: Performed By: #### C BC, CMP ####[facility] [place] [phone] Alkaline phosphatase (ALP) 96 U/L Normal 32-117 [facility] Comment on above: Performed By: #### C BC, CMP ####[facility] [address] [place] [phone] Anion gap 18 mmol/L Normal 9-18 [facility] Comment on above: Performed By: #### C BC, CMP ####[facility] [address] [place] [phone] Aspartate aminotransferase (AST) 16 U/L Normal 13-35 [facility] Comment on above: Performed By: #### C BC, CMP ####[facility] [place], [place] [phone] Bilirubin (total) 0.2 mg/dL Normal 0.2-1.3 [facility] Comment on above: Performed By: #### C BC, CMP ####[facility] [place], [place] [phone] Calcium 9.8 mg/dL Normal 8.5-10.2 [facility] Comment on above: Performed By: #### C BC, CMP ####[place] [address] [place], [place] [phone] Chloride 96 mmol/L Low 97-105 [facility] Comment on above: Performed By: #### C BC, CMP ####[place] [address] [place] [address] [place] [phone] CO2 25 mmol/L Normal 22-30 [facility] Comment on above: Performed By: #### C BC, CMP ####[place] [address] [place], [place] [phone] Creatinine 0.98 mg/dL High 0.58-0.96 [facility] Comment on above: Performed By: #### C BC, CMP ####[place] [address] [place], [place] [phone] eGFR (non-black) 59 . Normal [facility] Comment on above: Result Comment: eGFR (Estimated [...] GFR. Performed By: #### C BC, CMP ####[place] [address] [place], [place] [phone] eGFR (non-black) mL/min/{1.73_m2} Normal [facility] Comment on above: Performed By: #### C BC, CMP ####[address] [phone] Glucose mass conc 133 mg/dL High 74-99 [facility] Comment on above: Result Comment: The [place] Diabetes Association (ADA) provides guidance for cutoff [...] Standards of Medical Care in Diabetes 2016, [place] Diabetes Association. Diabetes Care. 2016.39(Suppl 1). Performed By: #### C BC, CMP ####[address] [phone] Potassium molar conc 3.9 mmol/L Normal 3.7-5.1 [facility] Comment on above: Performed By: #### C BC, CMP ####[address] [phone] Protein 7.5 g/dL Normal 6.3-8.0 [facility] Comment on above: Performed By: #### C BC, CMP ####[place] [address] [place], [place] [phone] Sodium 139 mmol/L Normal 136-144 [facility] Comment on above: Performed By: #### C BC, CMP ####[place] [address] [place], [place] [phone] Urea nitrogen 20 mg/dL Normal 7-21 [facility] Comment on above: Performed By: #### C BC, CMP ####[address] [phone] Confirm Blood Typeon 017 ABO/RH(D) Positive Normal [facility] Comment on above: Performed By: #### C ONABO ####[facility] [address] [place], [place] [phone] OBSOLETEon 07-26-2017 OBSOLETE Procedure (PULLMN) ----FAUSTO CORRIGAN ([id number]) 1960 FDate Time Provider Byzdfdwlta36/30/17 9:00 AM PULM FCT LAB MAIN 6 ADDON PULLMN During your visit today, we recorded the following information about you:Referring Provider: ESEQUIEL THOMAS [[id number]]Allergies As of Date: 07/26/2017 Noted Allergy ReactionSULFA (SULFONAMIDE ANTIBIOTICS) 06/07/2017 4 - Hives 10 - AnaphylaxisDate Reviewed: 06/07/2017Reviewed by: Nicolle (Josr) JOSR Moncada - Fully AssessedReason for Visit: Spirometry [191]Primary Visit Diagnosis:Dyspnea, unspecified type [R06.00] Other Visit Diagnosis:Chronic obstructive pulmonary disease, unspecified COPD type (HCC) [J44.9]Order(s):SPIROMETRY WITH DILATOR IF OBSTRUCTED [[id number]] Order #: [id number]. #:[id number] ons as of 07/26/2017 Sig: OXYCODONE-ACETAMINOPHEN 5 [...] fistula [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 Status:Closed by [employer], CARMEL L on 07/26/17 Normal [facility] PROGRESSon 07-26-2017 PROGRESS HNO ID: [id number] thor: Geoffrey (Res) Sofiarvice: (none)Author Type: ResidentType: Progress NotesFiled: 07/26/2017 5:18 [...] lb 15 oz) SpO2 96% BMI 31.6 kg/t9Rqdww signs completed by: IMPACTWeight acquired: per HANDP. [...] 26, 2017 : 4:26 PM PAGER/CONTACT #: [facility] PROGRESS HNO ID: [id number] thor: Sis PIERSONervice: (none)Author Type: (none)Type: Progress NotesFiled: 07/26/2017 4:05 PMNote Text:Fausto Corrigan is a 57 year old female [facility]Referring Surgeon: Dr. Fernandez of Surgery: 08/03/2017Planned Surgery/Procedure: Sigmoid Colectomy w/ CRAAllergies have been reviewed and verified. 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 She will start taking it again xwwifrees129 mg twice a day. She has medication at home. Of importance is thattoday her fasting blood sugar was 1 33 mg/dL. We ordered a hemoglobin G2jocmuh has not been done. We will see her back in 6 weeks a repeathemoglobin A1c. Her blood sugars should improve once she is off steroids.SIGNATURE: Ivan Hyde, MDDATE: July 26, 2017TIME: 2:32 PM Normal [facility] PROGRESS HNO ID: [id number] thor: Cristina Vernon RtService: (none)Author Type: (none)Type: Progress NotesFiled: 07/26/2017 1:40 PMNote Text: Radiology Service Progress NotePATIENT NAME: Fausto CorriganMRN: [id number] OF SERVICE: July 26, 2017TIME: 1:40 PMPATIENT IDENTITY VERIFICATION COMPLETED USING TWO (2) METHODS: Patientconfirmed name verbally and Date of .PATIENT GENDER DATA: MalePATIENT RELEVANT IMPLANT DATA REVIEWED: Not ApplicableRADIOLOGY DEPARTMENT: General X-ray: Exam(s) Completed: Chest X-RayPERIPHERAL IV DATA: Not applicableSIGNED BY: Cristina Vernon RtOct2016 1:40 PM [facility] PROGRESS HNO ID: [id number] thor: Aimee Gonzalez: (none)Author Type: PhysicianType: Progress NotesFiled: 07/26/2017 3:23 PMNote Text:Respiratory InstitutePulmonary ConsultationCC: Pre-operative evaluationConsultation requested by Dr. Thomas for a pre-operative pulmonaryevaluation. 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 2 07/26/2017 12:14:11PM PRE/POST- ATS acceptability andrepeatabilitystandards for spirometry met.Medications and Allergies were reviewed forpossibledrug interactions per policy MM-102. No contraindications orsensitivities werenoted. Respiratory meds taken in past 72H: Albuterol / 16 hours beforetesting. 4 puffs albuterol (360 mcg) delivered by MDI via valved holding chamber, HRpre=80/min, HRpost= 72/min. /JAQUAN//DIO nguyen??IMPRESSION: [facility] Respiratory [place] Pulmonary Function Lab Pred KALEE MARTINEZ Pre % Post % %chgDate [id number] 11:44AM 12:10PM Height 152.4 152.4Weight 72.6 72.6 [...] 4.28 1.06 34 1.36 4429FIF 50 1.99 2.1129T47/75 2.34 1.25 3.42 0.67 29 0.84 3625FE%FIF 53.13 61.7161JEK0 1.95 2.05 5PEF 5.36 3.63 7.09 4.30 80 5.37 29179JKP 10.82 10.59-2FETPEF 0.08 0.04-56VBe%FV 4.39 3.07 -30VBEex 0.09 0.07-29 VC MAX 2.96 2.35 3.57 2.11 71 2.13 72 1 Luiz c:EKG - NSRASSRINATH AND Ab Shekhar is a 57 year [...] (Gurinder Respiratoray Failure Index. Gurinder, AM. Nancie [id number]; 232: 242). THaving a respiratory infection within the past month increases the risk. Macarioee with postponing surgery until Aug 24 to reduce her risk.RECOMMENDATIONS:In order to minimize the risk of complications and optimize pulmonarystatus, we recommend the following:-Encourage aggressive incentive spirometry hourly both ayse-operativelyand post-operatively as tolerated-Early ambulation and physical therapy as tolerated xkny-dgpkfylzihe-Orpmluia narcotics as much as possible-Bronchodilators as needed [...] illnessAmy Santana, MDPulmonary and Critical Care MedicineRespiratory InstituteAshtabula General Hospital Normal [facility] Type and SCR (30D)on 017 ABO/RH(D) Positive Normal [facility] Comment on above: Performed By: #### T SCR30 ####[facility] [address] [place], [place] [phone] Antibody Screen Negative Normal [facility] Comment on above: Performed By: #### T SCR30 ####[facility] [address] [place], [place] [phone] XR CHEST 2V FRONTAL/LATon XR CHEST 2V [...] abdomen suggest prior cholecystectomy.IMPRESSION:N o acute radiographic abnormality.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 : PAUL Transcribe Date/Time: Jul 26 2017 2:28PDictated by : FABY SWANSON MDThigrady examination was interpreted and the report reviewed and electronically signed by: CORNELIUS BEAR MD on Jul 26 2017 4:55PM [id number] Normal [facility] HISTORY PHYSICALon HISTORY PHYSICAL HNO ID: [id number] thor: Rivera Sheffield) BhallaService: (none)Author Type: PhysicianType: HANDPFiled: 07/26/2017 8:42 PMNote Text:HISTORY AND PHYSICAL EXAMINATION (IMPACT)SERVICE DATE: 07/25/2017SERVICE TIME: 1:49 PMPRIMARY CARE PHYSICIAN: No PcpCHIEF COMPLAINT/HISTORY OF PRESENT ILLNESS:Ms. Corrigan is a 57 year old female referred to ms for preoperativeevaluation. My final recommendations will be [...] or fevers.Neuro: No history of TIA's, stroke, VETERINARY TECHNOLOGY INSTRUCTOR tumor, impaired sensorium,hemiplegia, paraplegia or quadriplegia. No neurological symptoms orproblems.Respiratory: COPD on nebulizersCardiovascular: No history of HTN requiring medication, no history ofangina, CHF, AL, cardiac surgery or stents. Denies rest pain, gangrene orrevascularization/amputati on for PVD. No history of cardiovascularsymptoms or problems.GI: Peptic Ulcer Disease on ZantacGU: No history of UTI in past 6 weeks. No history of renal failure. Notcurrently on or requiring dialysis. 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 vaginal bleeding due to menopause and [...] July 25, 2017 : 1:49 PM Normal [facility] HOSP 06-08-2017 HOSP Patient Update (CORSMN) ----FAUSTO CORRIGAN ([id number]) 1960 [facility] Time Provider Department06/08/17 ESEQUIEL THOMAS During your visit today, we recorded the following information about you:Allergies As of Date: 06/08/2017 Noted Allergy ReactionSULFA (SULFONAMIDE ANTIBIOTICS) 06/07/2017 4 - Hives 10 - AnaphylaxisDate Reviewed: 06/07/2017Reviewed by: Nicolle (Sas Bi Developer) JOSR Moncada - Fully AssessedPrimary Visit Diagnosis: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]Order(s):SURGICAL REQUEST - ELECTIVE [8816855] Order #: [id number]: 1 PER WHAT TO EXPECT DURING YOUR HOSPITAL STAY [4431154] Order #: [id number]: 1 CBC [SQCBC] Order #: [id number] FUTURE COMP METABOLIC PANEL [SQCMP] Order #: [id number] FUTURE CONFIRM BLOOD TYPE [SQCONABO] Order #: [id number] FUTURE TYPE + SCREEN,30 DAY [ZLNCVH80] Order #: [id number] FUTURE ECG COMPLETE W INTERPRETATION [ECG01] Order #: [id number] FUTURE REFER FOR ADMIT INTERVIEW [6909812] Order #: [id number] HANDP FOR SURGERY [E9081QBO] Order #: [id number] CONSULT TO PATIENT EDUCATION [19991031] Order #: [id number]: 1 CONSULT TO ANESTHESIOLOGY [9001] Order #: [id number]: 1 CONSULT TO INT MED-IMPACT [1203616] Order #: [id number]: 1 CONSULT TO PULMONARY MEDICINE [6223121] Order #: [id number]: 1 CONSULT TO ENDOCRINOLOGY [9006] Order #: [id number]: 1Prescriptions as of 06/08/2017 Sig: OXYCODONE-ACETAMINOPHEN 5 [...] FOR* More...Follow-up and Disposition History RecordedEncounter Number: [id number] Status:Closed by ESEQUIEL THOMAS MD, FACS on 06/09/17 [facility] CNOVon 06-07-2017 CNOV Office Visit (TOMAS) ----FAUSTO CORRIGAN ([id number]) 1960 [facility] Time Provider Department06/07/17 1:20 PM ESEQUIEL THOMAS During your visit today, we recorded the following information about you: Temperature Pulse Blood pressure Weight 97.8 degrees 79/minute 119/76 73.5 kg Height 1.537 Geovany Thomas MD FACS 06/07/2017 3:44 PM SignedNew Patient ConsultREASON FOR Rafia Corrigan is a 56 year old female who is scheduled for a consult at [facility] for Consult (Colovaginal [...] pain during BMs.She does have COPD from jail smoking, but says she only has 3-4 [...] RepositionGeneral: MalaiseNeuro: No history of TIA's, stroke, VETERINARY TECHNOLOGY INSTRUCTOR tumor, impaired sensorium, hemiplegia,paraplegia or quadraplegia. No neurological symptoms or problems.Respiratory: COPDCardiovascular: Hx HTNGI: Positive for GERD, PUD, Heartburn, Abdominal pain, Diverticulitis, Historyof polypsGU: No history of UTI in past 6 weeks. No history of renal failure. Notcurrently on or requiring dialysis. 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: yellow/brown drainage from vagina x2 months : [...] FACSDATE: 06/07/17TIME: 2:32 PMReferring Provider: ZAID MICHAELS [[id number]]Allergies As of Date: 06/07/2017 Noted Allergy ReactionSULFA [...] ESEQUIEL THOMAS MD, FACS on 06/07/17 Normal [facility] HISTORY PHYSICALon HISTORY PHYSICAL HNO ID: [id number] thor: Esequiel Goodwin: (none)Author Type: PhysicianType: HANDPFiled: 06/07/2017 3:44 PMNote Text:New Patient ConsultREASON FOR Rafia Corrigan is a 56 year old female who is scheduled for a consult at [facility] for Consult (Colovaginal [...] pain during BMs.She does have COPD from jail smoking, but says she only has 3-4cigarettes [...] RepositionGeneral: MalaiseNeuro: No history of TIA's, stroke, VETERINARY TECHNOLOGY INSTRUCTOR tumor, impaired sensorium,hemiplegia, paraplegia or quadraplegia. No neurological symptoms orproblems.Respiratory: COPDCardiovascular: Hx HTNGI: Positive for GERD, PUD, Heartburn, Abdominal pain, Diverticulitis,History of polypsGU: No history of UTI in past 6 weeks. No history of renal failure. Notcurrently on or requiring dialysis. 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: yellow/brown drainage from vagina x2 months : [...] Thomas MD FACSDATE: 06/07/17TIME: 2:32 PM Normal [facility] SR-CT ABD/PELVIS W CON IMPOR Ton 04-15-2017 SR-CT ABD/PELVIS W CON IMPORT Images were obtained outside of [facility] [id number] Normal [facility] Vital Signs Date Time Vital Sign Value Performing Clinician Facility 04-05-2025 09:45-0400 Body mass index (BMI) [Ratio] 25.84 kg/m2 Veronique Steven AUTOMOTIVE SERVICE MANAGER Work Phone: [facility] 04-05-2025 09:45-0400 Body temperature 97.5 [degF] Veronique Steven AUTOMOTIVE SERVICE MANAGER Work Phone: [facility] 04-05-2025 09:45-0400 Body weight 63.05 kg Veronique Mosherzana AUTOMOTIVE SERVICE MANAGER Work Phone: [facility] 04-05-2025 09:45-0400 Diastolic blood pressure 84 mm[Hg] Veronique Zhangsharifa AUTOMOTIVE SERVICE MANAGER Work Phone: [facility] 04-05-2025 09:45-0400 Heart rate 67 /min Veronique Vicentemaria teresaz AUTOMOTIVE SERVICE MANAGER Work Phone: [facility] 04-05-2025 09:45-0400 Respiratory rate 18 /min Veronique Mosheramauryz AUTOMOTIVE SERVICE MANAGER Work Phone: [facility] 04-05-2025 09:45-0400 SaO2% (BldA) [Mass fraction] 97 % Veronique Steven AUTOMOTIVE SERVICE MANAGER Work Phone: [facility] 04-05-2025 09:45-0400 Systolic blood pressure 160 mm[Hg] Veronique Pamelaz AUTOMOTIVE SERVICE MANAGER Work Phone: [facility] 01-08-2025 13:36-0400 Body height 156.2 cm Bao Noble DPEitan Work Phone: [facility] 01-08-2025 13:36-0400 Body mass index (BMI) [Ratio] 26.4 kg/m2 Bao Noble DPM Work Phone: [facility] 01-08-2025 13:36-0400 Body weight 64.41 kg Bao Noble DPM Work Phone: [facility] 01-04-2025 15:24-0400 Body height 156.2 cm Veroniqueswati Mosherholz AUTOMOTIVE SERVICE MANAGER Work Phone: [facility] 01-04-2025 15:24-0400 Body mass index (BMI) [Ratio] 26.4 kg/m2 Veronique Vicentehholz AUTOMOTIVE SERVICE MANAGER Work Phone: [facility] 01-04-2025 15:24-0400 Body temperature 98.49 [degF] Veronique Aichholz AUTOMOTIVE SERVICE MANAGER Work Phone: [facility] 01-04-2025 15:24-0400 Body weight 64.41 kg Veronique Vicentehholz AUTOMOTIVE SERVICE MANAGER Work Phone: [facility] 01-04-2025 15:24-0400 Diastolic blood pressure 80 mm[Hg] Veronique Vicentehholz AUTOMOTIVE SERVICE MANAGER Work Phone: [facility] 01-04-2025 15:24-0400 Heart rate 69 /min Veronique Aichholz AUTOMOTIVE SERVICE MANAGER Work Phone: [facility] 01-04-2025 15:24-0400 Respiratory rate 18 /min Veronique Vicentehholz AUTOMOTIVE SERVICE MANAGER Work Phone: [facility] 01-04-2025 15:24-0400 SaO2% (BldA) [Mass fraction] 93 % Veronique Vicentehholz AUTOMOTIVE SERVICE MANAGER Work Phone: [facility] 01-04-2025 15:24-0400 Systolic blood pressure 160 mm[Hg] Veronique Aichholz AUTOMOTIVE SERVICE MANAGER Work Phone: [facility] 11-06-2024 16:20-0500 Body mass index (BMI) [Ratio] 25.8 kg/m2 Veronique Aichholz AUTOMOTIVE SERVICE MANAGER Work Phone: [facility] 11-06-2024 16:20-0500 Body temperature 98.8 [degF] Veronique Mosheramauryz AUTOMOTIVE SERVICE MANAGER Work Phone: [facility] 11-06-2024 16:20-0500 Body weight 62.96 kg Veroniqueswati Mosherholz AUTOMOTIVE SERVICE MANAGER Work Phone: [facility] 11-06-2024 16:20-0500 Diastolic blood pressure 80 mm[Hg] Veronique Vicentehholz AUTOMOTIVE SERVICE MANAGER Work Phone: [facility] 11-06-2024 16:20-0500 Heart rate 58 /min Veronique Vidhiholz AUTOMOTIVE SERVICE MANAGER Work Phone: [facility] 11-06-2024 16:20-0500 Respiratory rate 18 /min Veronique Vidhiholz AUTOMOTIVE SERVICE MANAGER Work Phone: [facility] 11-06-2024 16:20-0500 SaO2% (BldA) [Mass fraction] 94 % Veronique Vicentemaria teresaz AUTOMOTIVE SERVICE MANAGER Work Phone: [facility] 11-06-2024 16:20-0500 Systolic blood pressure 128 mm[Hg] Veronique Vidhiholz AUTOMOTIVE SERVICE MANAGER Work Phone: [facility] 09-18-2024 10:13-0500 Body height 156.2 cm Bao Noble DPM Work Phone: [facility] 09-18-2024 10:13-0500 Body mass index (BMI) [Ratio] 26.62 kg/m2 Bao Noble DPM Work Phone: [facility] 09-18-2024 10:13-0500 Body weight 64.95 kg Bao Noble DPM Work Phone: [facility] 08-16-2024 17:03-0500 Diastolic blood pressure 82 mm[Hg] Veronique Vicentehholz AUTOMOTIVE SERVICE MANAGER Work Phone: [facility] 08-16-2024 17:03-0500 Systolic blood pressure 164 mm[Hg] Veronique Aichholz AUTOMOTIVE SERVICE MANAGER Work Phone: [facility] 08-16-2024 16:55-0500 Body height 156.2 cm Veronique Harris AUTOMOTIVE SERVICE MANAGER Work Phone: [facility] 08-16-2024 16:55-0500 Body mass index (BMI) [Ratio] 26.62 kg/m2 Veroniqueswati Santiagoz AUTOMOTIVE SERVICE MANAGER Work Phone: [facility] 08-16-2024 16:55-0500 Body temperature 98.49 [degF] Veronique Pamelaz AUTOMOTIVE SERVICE MANAGER Work Phone: [facility] 08-16-2024 16:55-0500 Body weight 64.95 kg Veroniqueswati Santiagoz AUTOMOTIVE SERVICE MANAGER Work Phone: [facility] 08-16-2024 16:55-0500 Heart rate 64 /min Veroniqueswati Santiagoz AUTOMOTIVE SERVICE MANAGER Work Phone: [facility] 08-16-2024 16:55-0500 Respiratory rate 20 /min Veronique Pamelaz AUTOMOTIVE SERVICE MANAGER Work Phone: [facility] 08-16-2024 16:55-0500 SaO2% (BldA) [Mass fraction] 94 % Veroniqueswati Santiagoz AUTOMOTIVE SERVICE MANAGER Work Phone: [facility] 07-27-2024 09:36-0400 Body height 156.2 cm Veronique Harris AUTOMOTIVE SERVICE MANAGER Work Phone: [facility] 07-27-2024 09:36-0400 Body mass index (BMI) [Ratio] 25.54 kg/m2 Veroniqueswati Santiagoz AUTOMOTIVE SERVICE MANAGER Work Phone: [facility] 07-27-2024 09:36-0400 Body temperature 98.8 [degF] Veronique Pamelaz AUTOMOTIVE SERVICE MANAGER Work Phone: [facility] 07-27-2024 09:36-0400 Body weight 62.32 kg Veroniqueswati Santiagoz AUTOMOTIVE SERVICE MANAGER Work Phone: [facility] 07-27-2024 09:36-0400 Diastolic blood pressure 86 mm[Hg] Veronique Vidhiholz AUTOMOTIVE SERVICE MANAGER Work Phone: [facility] 07-27-2024 09:36-0400 Heart rate 70 /min Veronique Vicentehholz AUTOMOTIVE SERVICE MANAGER Work Phone: [facility] 07-27-2024 09:36-0400 Respiratory rate 18 /min Veronique Aichholz AUTOMOTIVE SERVICE MANAGER Work Phone: [facility] 07-27-2024 09:36-0400 SaO2% (BldA) [Mass fraction] 94 % Veronique Aichholz AUTOMOTIVE SERVICE MANAGER Work Phone: [facility] 07-27-2024 09:36-0400 Systolic blood pressure 138 mm[Hg] Veronique Aichholz AUTOMOTIVE SERVICE MANAGER Work Phone: [facility] 06-21-2024 10:57-0400 Body height 156.2 cm Veronique Aichholz AUTOMOTIVE SERVICE MANAGER Work Phone: [facility] 06-21-2024 10:57-0400 Body mass index (BMI) [Ratio] 25.62 kg/m2 Veronique Aichholz AUTOMOTIVE SERVICE MANAGER Work Phone: [facility] 06-21-2024 10:57-0400 Body temperature 97.81 [degF] Veronique Aichholz AUTOMOTIVE SERVICE MANAGER Work Phone: [facility] 06-21-2024 10:57-0400 Body weight 62.51 kg Veronique Aichholz AUTOMOTIVE SERVICE MANAGER Work Phone: [facility] 06-21-2024 10:57-0400 Diastolic blood pressure 82 mm[Hg] Veronique Aichholz AUTOMOTIVE SERVICE MANAGER Work Phone: [facility] 06-21-2024 10:57-0400 Heart rate 64 /min Veronique Aichholz AUTOMOTIVE SERVICE MANAGER Work Phone: [facility] 06-21-2024 10:57-0400 Respiratory rate 18 /min Veronique Aichholz AUTOMOTIVE SERVICE MANAGER Work Phone: [facility] 06-21-2024 10:57-0400 SaO2% (BldA) [Mass fraction] 97 % Veronique Aichholz AUTOMOTIVE SERVICE MANAGER Work Phone: [facility] 06-21-2024 10:57-0400 Systolic blood pressure 160 mm[Hg] Veronique Harris AUTOMOTIVE SERVICE MANAGER Work Phone: [facility] 10-06-2022 13:45-0500 Body height 154.94 cm Veronique Mosherholz Work Phone: [facility] [address] DO Work Phone: 10-06-2022 13:45-0500 Body mass index (BMI) [Ratio] 29.29 kg/m2 Veronique Jeff Aichholz Work Phone: [facility] [address] DO Work Phone: 10-06-2022 13:45-0500 Body surface area Derived from formula 1.7 m2 Veronique Jeff Vicentehholz Work Phone: [facility] 250 DO Work Phone: 10-06-2022 13:45-0500 Body weight 70.31 kg Veronique Zhanghholz Work Phone: [facility] [address] DO Work Phone: 10-06-2022 13:45-0500 Diastolic blood pressure 80 mm[Hg] Veronique Zhanghholz Work Phone: [facility] [address] DO Work Phone: 10-06-2022 13:45-0500 Heart rate 72 /min Veronique Jeff Aichholz Work Phone: [facility] DO Work Phone: 10-06-2022 13:45-0500 Systolic blood pressure 142 mm[Hg] Veronique Jeff Aichholz Work Phone: [facility] [address] DO Work Phone: 10-16-2021 11:41-0500 Body height 154.94 cm Dara Mills Work Phone: [facility] [address] DO Work Phone: 10-16-2021 11:41-0500 Body mass index (BMI) [Ratio] 30.04 kg/m2 Dara iMlls Work Phone: [facility] DO Work Phone: 10-16-2021 11:41-0500 Body surface area Derived from formula 1.71 m2 Dara Mills Work Phone: [facility] [employer] 250 DO Work Phone: 10-16-2021 11:41-0500 Body weight 72.12 kg Dara Mills Work Phone: [facility] [employer] [address] DO Work Phone: 10-16-2021 11:41-0500 Diastolic blood pressure 82 mm[Hg] Dara Mills Work Phone: [facility] [employer] [address] DO Work Phone: 10-16-2021 11:41-0500 Heart rate 65 /min Dara Mills Work Phone: [facility] DO Work Phone: 10-16-2021 11:41-0500 Systolic blood pressure 136 mm[Hg] Dara Mills Work Phone: [facility] [employer] [address] DO Work Phone: 04-08-2021 11:18-0400 Body height 152.4 cm [facility] Work Phone: 04-08-2021 11:18-0400 Body mass index (BMI) [Ratio] 30.66 kg/m2 [facility] Work Phone: 04-08-2021 11:18-0400 Body weight 71.22 kg [facility] Work Phone: 04-08-2021 11:18-0400 Diastolic blood pressure 82 mm[Hg] [facility] Work Phone: 04-08-2021 11:18-0400 Heart rate 64 /min [facility] Work Phone: 04-08-2021 11:18-0400 Respiratory rate 18 /min [facility] Work Phone: 04-08-2021 11:18-0400 SaO2% (BldA) [Mass fraction] 97 % [facility] Work Phone: 04-08-2021 11:18-0400 Systolic blood pressure 144 mm[Hg] [facility] Work Phone: Encounters Encounter Date Encounter Type Care Provider Facility Start: 05-17-2025 ambulatory [facility] Facility:[facility] Start: 05-02-2025 End: 05-02-2025 Refill Veronique Harris AUTOMOTIVE SERVICE MANAGER Work Phone: [facility] Comment on above: Gastroesophageal ref lux disease without esophagitis (Primary Dx); Nausea and vomiting, unspecified vomiting type Start: 04-30-2025 End: 05-01-2025 Refill Veronique Harris AUTOMOTIVE SERVICE MANAGER Work Phone: [facility] Comment on above: Gastroesophageal ref lux disease without esophagitis (Primary Dx) Start: 04-11-2025 End: 04-12-2025 Telephone encounter Bao Noble DPM Work Phone: [facility] Comment on above: No Shows (Recent His tory of No Shows) Start: 04-05-2025 End: 04-05-2025 Bamboo flowsheet Veronique Harris AUTOMOTIVE SERVICE MANAGER Work Phone: [facility] Start: 04-05-2025 End: 04-05-2025 Bamboo flowsheet Veronique Harris AUTOMOTIVE SERVICE MANAGER Work Phone: [facility] Start: 04-05-2025 End: 04-05-2025 Clinisync Result Encounter Veroniqueswati Harris AUTOMOTIVE SERVICE MANAGER Work Phone: [facility] External Department Unsolicited Start: 04-05-2025 End: 04-05-2025 Refill Veronique Aicdonteholz AUTOMOTIVE SERVICE MANAGER Work Phone: [facility] Comment on above: Primary hypertension (Primary Dx); Mixed hyperlipidemia ; Chronic obstructive pulmonary disease, unspecified COPD type (HCC); Controlled type 2 diabetes mellitus without complication, without long-term current use of insulin (HCC); Other specified hypothyroidism ; Seasonal allergic rhinitis due to pollen; Gastroesophageal reflux disease without esophagitis; Vitamin D deficiency; Hypokalemia Microscopic hematuri a (Primary Dx); Colovaginal fistula; Elevated alkaline phosphatase level Start: 04-05-2025 End: 04-05-2025 Office outpatient visit 25 minutes Veroniqueswati Harris AUTOMOTIVE SERVICE MANAGER Work Phone: [facility] Comment on above: Type 2 diabetes henrique itus with chronic kidney disease, without long-term current use of insulin, unspecified CKD stage (HCC) (Primary Dx); Primary hypertension ; Coronary artery disease involving [place] coronary artery of [place] heart without angina pectoris ; Vaginal bleeding; Chronic kidney disease, stage 3a (CMS-HCC); Controlled type 2 diabetes mellitus without complication, without long-term current use of insulin (HCC); Medical non-compliance; Breast cancer screening by mammogram; Cigarette nicotine dependence with nicotine-induced disorder; Other specified hypothyroidism Start: 04-04-2025 End: 04-04-2025 Refill Veronique Aicdonteholz AUTOMOTIVE SERVICE MANAGER Work Phone: [facility] Comment on above: Primary hypertension Start: 01-11-2025 End: 01-30-2025 Telephone encounter Rhiannon Abarca DO Work Phone: [facility] Start: 01-09-2025 End: 01-09-2025 Refill Veronique Aichholz AUTOMOTIVE SERVICE MANAGER Work Phone: [facility] Comment on above: Chronic obstructive pulmonary disease, unspecified COPD type (CMS/HCC) (Primary Dx) Start: 01-08-2025 End: 01-08-2025 Office outpatient visit 15 minutes Bao Noble DPM Work Phone: [facility] Comment on above: Onychodystrophy (Nighat jorje Dx); Onychomycosis; Diabetic polyneuropathy associated with type 2 diabetes mellitus ([facility]/HCC) Start: 01-08-2025 End: 01-08-2025 ambulatory BAO NOBLE Not Available Start: 01-04-2025 End: 01-04-2025 ambulatory VERONIQUE AICHHOLNorma Not Available Start: 01-04-2025 End: 01-04-2025 Office outpatient visit 25 minutes Veronique Aicmaria teresaz AUTOMOTIVE SERVICE MANAGER Work Phone: [facility] Comment on above: Colovaginal fistula (Primary Dx); Cigarette nicotine dependence with nicotine-induced disorder; Type 2 diabetes mellitus with diabetic polyneuropathy, without long-term current use of insulin ([facility]); Primary hypertension ([facility]); Chronic kidney disease, stage 3a ([facility]) ([facility]); Type 2 diabetes mellitus with chronic kidney disease, without long-term current use of insulin, unspecified CKD stage ([facility]); Gastroesophageal reflux disease without esophagitis; Mixed hyperlipidemia ([facility]); Chronic obstructive pulmonary disease, unspecified COPD type ([facility]); Controlled type 2 diabetes mellitus without complication, without long-term current use of insulin; Other specified hypothyroidism; Seasonal allergic rhinitis due to pollen Start: 01-04-2025 End: 01-04-2025 Bamboo flowsheet Veronique Aichholz AUTOMOTIVE SERVICE MANAGER Work Phone: [facility] Start: 01-04-2025 End: 01-04-2025 Bamboo flowsheet Veronique Aichholz AUTOMOTIVE SERVICE MANAGER Work Phone: [facility] Start: 01-01-2025 End: 01-01-2025 Refill Veronique Aichholz AUTOMOTIVE SERVICE MANAGER Work Phone: [facility] Comment on above: Primary hypertension ([facility]/HCC) Start: 12-14-2024 End: 12-14-2024 Refill Veronique Aichholz AUTOMOTIVE SERVICE MANAGER Work Phone: [facility] Comment on above: Controlled type 2 di abetes mellitus without complication, without long-term current use of insulin ([facility]/HCC) (Primary Dx) Start: 11-30-2024 End: 11-30-2024 ambulatory VERONIQUE AICHHOLZ Not Available Start: 11-30-2024 End: 11-30-2024 Bamboo flowsheet Veronique Aichholz AUTOMOTIVE SERVICE MANAGER Work Phone: [facility] Start: 11-30-2024 End: 11-30-2024 Bamboo flowsheet Veronique Aichholz AUTOMOTIVE SERVICE MANAGER Work Phone: [facility] Start: 11-10-2024 End: 11-12-2024 Refill Veronique Aichholz AUTOMOTIVE SERVICE MANAGER Work Phone: [facility] Comment on above: Controlled type 2 di abetes mellitus without complication, without long-term current use of insulin ([facility]); Other specified hypothyroidism ([facility]); Gastroesophageal reflux disease without esophagitis; Chronic obstructive pulmonary disease, unspecified COPD type ([facility]) Start: 11-07-2024 End: 11-07-2024 Refill Veronique Aichholz AUTOMOTIVE SERVICE MANAGER Work Phone: [facility] Comment on above: Generalized abdomina l pain (Primary Dx) Start: 11-06-2024 End: 11-06-2024 Office outpatient visit 15 minutes Veronique Aichholz AUTOMOTIVE SERVICE MANAGER Work Phone: [facility] Comment on above: UTI symptoms (Primar y Dx); 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 Start: 11-06-2024 End: 11-06-2024 ambulatory VERONIQUE AICHHOLZ Not Available Start: 11-06-2024 End: 11-09-2024 External Result Encounter Veronique Aichholz AUTOMOTIVE SERVICE MANAGER Work Phone: [facility] External Department Unsolicited Start: 11-06-2024 End: 11-09-2024 External Result Encounter Veronique Aichholz AUTOMOTIVE SERVICE MANAGER Work Phone: [facility] External Department Unsolicited Start: 10-18-2024 End: 10-18-2024 Refill Veronique Aichholz AUTOMOTIVE SERVICE MANAGER Work Phone: [facility] Comment on above: Dental infection (Pr imary Dx) Start: 10-09-2024 End: 10-09-2024 Refill Veronique Steven AUTOMOTIVE SERVICE MANAGER Work Phone: [facility] Comment on above: Gastroesophageal ref lux disease without esophagitis Start: 10-05-2024 End: 10-05-2024 Refill Veronique Steven AUTOMOTIVE SERVICE MANAGER Work Phone: [facility] Comment on above: Gastroesophageal ref lux disease without esophagitis Start: 09-18-2024 End: 09-18-2024 Bamboo flowsheet Bao Noble DPM Work Phone: [facility] Start: 09-18-2024 End: 09-18-2024 Bamboo flowsheet Bao Noble DPM Work Phone: [facility] Start: 09-18-2024 End: 09-18-2024 Office outpatient new 30 minutes Bao Noble DPM Work Phone: [facility] Comment on above: Onychodystrophy (Nighat jorje Dx); Ingrown toenail; Onychomycosis; Diabetic polyneuropathy associated with type 2 diabetes mellitus (CMS/HCC); Left foot pain Start: 09-18-2024 End: 09-18-2024 ambulatory BAO NOBLE Not Available Start: 09-07-2024 End: 09-07-2024 Refill Veronique Steven AUTOMOTIVE SERVICE MANAGER Work Phone: [facility] Comment on above: Gastroesophageal ref lux disease without esophagitis Start: 08-16-2024 End: 08-16-2024 Office outpatient visit 25 minutes Veronique Harris AUTOMOTIVE SERVICE MANAGER Work Phone: [facility] Comment on above: Acute bilateral low back pain without sciatica (Primary Dx); Cigarette nicotine dependence with nicotine-induced disorder; Primary hypertension (CMS/HCC); Abdominal aortic pulsation; Screening for lung cancer; 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 Start: 08-16-2024 End: 08-16-2024 ambulatory VERONIQUE AICSHARIFA Not Available Start: 08-16-2024 End: 08-16-2024 Bamboo flowsheet Veronique Steven AUTOMOTIVE SERVICE MANAGER Work Phone: [facility] Start: 08-16-2024 End: 08-16-2024 Bamboo flowsheet Veronique Steven AUTOMOTIVE SERVICE MANAGER Work Phone: [facility] Start: 07-31-2024 End: 07-31-2024 Orders Only Veronique Steven AUTOMOTIVE SERVICE MANAGER Work Phone: [facility] Comment on above: Abdominal aortic pul sation (Primary Dx) Start: 07-27-2024 End: 07-27-2024 Bamboo flowsheet Veronique Steven AUTOMOTIVE SERVICE MANAGER Work Phone: [facility] Start: 07-27-2024 End: 07-27-2024 Bamboo flowsheet Veronique Steven AUTOMOTIVE SERVICE MANAGER Work Phone: [facility] Start: 07-27-2024 End: 07-27-2024 Office outpatient visit 25 minutes Veronique Steven AUTOMOTIVE SERVICE MANAGER Work Phone: [facility] Comment on above: Controlled type 2 di abetes mellitus without complication, without long-term current use of insulin (CMS/HCC) (Primary Dx); Type 2 diabetes mellitus with diabetic chronic kidney disease (CMS/HCC); Chronic kidney disease, stage 2 (mild); Vldxr-[id number] deficiency (CMS/HCC); Mixed hyperlipidemia (CMS/HCC); Chronic obstructive pulmonary disease, unspecified COPD type (CMS/HCC); Gastroesophageal reflux disease without esophagitis; Other specified hypothyroidism (CMS/HCC); Primary hypertension (CMS/HCC); Seasonal allergic rhinitis due to pollen; 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; Coronary artery disease involving [place] coronary artery of [place] heart without angina pectoris (CMS/HCC); Abdominal aortic pulsation; Acute bilateral low back pain without sciatica Start: 07-27-2024 End: 07-27-2024 ambulatory VERONIQUE HARRIS Not Available Start: 07-20-2024 End: 07-20-2024 Emergency department patient visit VERONIQUE HARRIS [facility] Start: 07-05-2024 End: 07-06-2024 Refill Veronique Steven AUTOMOTIVE SERVICE MANAGER Work Phone: [facility] Comment on above: Bacterial vaginosis Start: 06-22-2024 End: 06-22-2024 Refill Veroinque Vicentehholz AUTOMOTIVE SERVICE MANAGER Work Phone: [facility] Comment on above: Bacterial vaginosis (Primary Dx) Start: 06-21-2024 End: 06-21-2024 Bamboo flowsheet Veronique Steven AUTOMOTIVE SERVICE MANAGER Work Phone: [facility] Start: 06-21-2024 End: 06-21-2024 Bamboo flowsheet Veronique Steven AUTOMOTIVE SERVICE MANAGER Work Phone: [facility] Start: 06-21-2024 End: 06-21-2024 Office outpatient visit 25 minutes Veronique Harris AUTOMOTIVE SERVICE MANAGER Work Phone: [facility] Comment on above: Controlled type 2 di abetes mellitus without complication, without long-term current use of insulin ([facility]) (Primary Dx); UTI symptoms; Acute cystitis without hematuria; Vaginal bleeding; Vaginal discharge; Mixed hyperlipidemia ([facility]); Chronic obstructive pulmonary disease, unspecified COPD type ([facility]); Gastroesophageal reflux disease without esophagitis; Other specified hypothyroidism ([facility]); Primary hypertension ([facility]); Seasonal allergic rhinitis due to pollen Start: 06-21-2024 End: 06-21-2024 ambulatory VERONIQUE STEVEN Not Available Start: 01-17-2024 ambulatory UNKNOWN PROVIDER Facili ty:[facility] Start: 01-19-2023 End: 01-19-2023 ambulatory HISTORICAL RECORDS ADMINISTRATOR VERONIQUE HARRIS Facility:[facility] Start: 10-06-2022 Office outpatient vi sit 25 minutes Veronique Harris Work Phone: [facility] [facility] DO Work Phone: Start: 10-06-[address] Rafael Washington Facility: Start: 09-23-2022 Rx Renewal Dara Mills Work Phone: [facility] 250 DO Work Phone: Start: 09-01-2022 End: 09-02-2022 ambulatory OLIVER ALVARADO . Facility:[facility] Start: 07-08-[address] Rafael Washington Facility: Start: 06-17-2022 End: 06-18-2022 ambulatory HISTORICAL RECORDS ADMINISTRATOR VERONIQUE HARRIS Facility:[facility] Start: 03-12-2022 End: 03-13-2022 ambulatory HISTORICAL RECORDS ADMINISTRATOR VERONIQUE AICHHOLNorma Facility:[facility] Start: 10-16-[address] Rafael Washington Facility: Start: 10-16-2021 Office outpatient vi sit 15 minutes Dara Mills Work Phone: [facility] 250 DO Work Phone: Start: 08-18-2021 End: 08-19-2021 [facility]ulatory [facility] Start: 07-31-2021 End: 08-01-2021 ambulatory [facility] Start: 07-31-2021 End: 07-31-2021 Subsequent hospital visit by physician [facility] Rm 1 [facility] Card[facility] Rehab Comment on above: Arrived Start: 07-30-2021 End: 07-31-2021 ambulatory [facility] Start: 07-30-2021 End: 07-30-2021 Subsequent hospital visit by physician [facility] Rm 1 [facility] Cardiac Rehab Comment on above: Arrived Start: 07-21-2021 End: 07-22-2021 ambulatory [facility] Start: 07-21-2021 End: 07-21-2021 Subsequent hospital visit by physician [facility] Rm 1 [facility] Cardiac Rehab Comment on above: Arrived Start: 07-17-2021 End: 07-18-2021 ambulatory [facility] Start: 07-17-2021 End: 07-17-2021 Subsequent hospital visit by physician [facility] Rm 1 [facility] Cardiac Rehab Comment on above: Arrived Start: 07-10-2021 End: 07-11-2021 ambulatory [facility] Start: 07-10-2021 End: 07-10-2021 Subsequent hospital visit by physician [facility] Comment on above: Arrived Start: 07-09-2021 End: 07-10-2021 ambulatory [facility] Start: 07-09-2021 End: 07-09-2021 Subsequent hospital visit by physician [facility] Rm 1 [facility] Cardiac Rehab Comment on above: Arrived Start: 07-07-2021 End: 07-07-2021 Subsequent hospital visit by physician [facility] Rm 1 [facility] Cardiac Rehab Comment on above: Arrived Start: 07-02-2021 End: 07-03-2021 ambulatory [facility] Start: 07-02-2021 End: 07-02-2021 Subsequent hospital visit by physician [facility] Rm 2 [facility] Cardiac Rehab Comment on above: Arrived Start: 05-29-2021 End: 05-30-2021 ambulatory [facility] Start: 05-28-2021 End: 05-29-2021 ambulatory [facility] Start: 05-28-2021 End: 05-28-2021 Subsequent hospital visit by physician [facility] Rm 2 [facility] Cardiac Rehab Comment on above: Arrived Start: 05-26-2021 End: 05-27-2021 ambulatory [facility] Start: 05-26-2021 End: 05-26-2021 Subsequent hospital visit by physician [facility] Rm 2 [facility] Cardiac Rehab Comment on above: Arrived Start: 05-22-2021 End: 05-23-2021 ambulatory [facility] Start: 05-22-2021 End: 05-22-2021 Subsequent hospital visit by physician [facility] Comment on above: Arrived Start: 05-19-2021 End: 05-20-2021 ambulatory [facility] Start: 05-19-2021 End: 05-19-2021 Subsequent hospital visit by physician [facility] Rm 2 [facility] Comment on above: Arrived Start: 05-15-2021 End: 05-16-2021 ambulatory [facility] Start: 05-15-2021 End: 05-15-2021 Subsequent hospital visit by physician [facility] Rm 2 [facility] Comment on above: Arrived Start: 05-12-2021 End: 05-13-2021 ambulatory [facility] Start: 05-08-2021 End: 05-09-2021 ambulatory [facility] Start: 05-08-2021 End: 05-08-2021 Subsequent hospital visit by physician [facility] Rm 2 [facility] Comment on above: Arrived Start: 05-07-2021 End: 05-08-2021 ambulatory [facility] Start: 05-05-2021 End: 05-06-2021 ambulatory [facility] Start: 05-01-2021 End: 05-02-2021 ambulatory [facility] Start: 04-28-2021 End: 04-29-2021 ambulatory [facility] Start: 04-28-2021 End: 04-28-2021 Subsequent hospital visit by physician [facility] Rm 2 [facility] Comment on above: Arrived Start: 04-23-2021 End: 04-24-2021 ambulatory [facility] Start: 04-23-2021 End: 04-23-2021 Subsequent hospital visit by physician [facility] Rm 2 [facility] Comment on above: Arrived Start: 04-21-2021 End: 04-22-2021 ambulatory [facility] Start: 04-21-2021 End: 04-21-2021 Subsequent hospital visit by physician [facility] Rm 2 [facility] Comment on above: Arrived Start: 04-14-2021 End: 04-15-2021 ambulatory [facility] Start: 04-14-2021 End: 04-14-2021 Subsequent hospital visit by physician [facility] Rm 2 [facility] Comment on above: Arrived Start: 04-10-2021 End: 04-11-2021 ambulatory [facility] Start: 04-08-2021 End: 04-09-2021 ambulatory [facility] Start: 04-08-2021 End: 04-08-2021 Subsequent hospital visit by physician [facility] Cr Education Room [facility] Comment on above: Arrived Start: 05-19-2018 Patient encounter THOMAS DELGADILLO Facility:[facility] Start: 03-17-2018 End: 03-17-2018 Patient encounter THOMAS DELGADILLO Facility:[facility] Start: 02-03-2018 Patient encounter THOMAS DELGADILLO Facility:[facility] Start: 07-26-2017 End: 07-26-2017 Ambulatory ESEQUIEL THOMAS [facility] Start: 07-26-2017 End: 07-26-2017 Ambulatory IVAN HYDE [facility] Start: 07-26-2017 End: 07-27-2017 Ambulatory ESEQUIEL THOMAS [facility] Start: 07-26-2017 End: 07-26-2017 Ambulatory ESEQUIEL THOMAS [facility] Start: 06-07-2017 End: 06-07-2017 Ambulatory ESEQUIEL THOMAS [facility] Procedures Date Procedure Procedure Detail Performing Clinician Start: 04-05-2025 ALL CBC WITH AUTO DIFF Veronique Harris AUTOMOTIVE SERVICE MANAGER Work Phone: Start: 04-05-2025 Hemoglobin glycosylated a1c Veronique Harris AUTOMOTIVE SERVICE MANAGER Work Phone: Start: 11-06-2024 Urnls dip stick/tabl et rgnt non-auto w/o micrscp Veronique Harris AUTOMOTIVE SERVICE MANAGER Work Phone: Start: 11-06-2024 URINARY TRACT INFECT ION (HTRX) Veronique Harris AUTOMOTIVE SERVICE MANAGER Work Phone: Start: 07-27-2024 Hemoglobin glycosylated a1c Veronique Harris AUTOMOTIVE SERVICE MANAGER Work Phone: Start: 03-20-2024 Colonoscopy Veronique rosarionorma AUTOMOTIVE SERVICE MANAGER Work Phone: Start: 02-14-2024 Mammography Veronique rosarionorma AUTOMOTIVE SERVICE MANAGER Work Phone: Appendectomy Dara Mills Work Phone: Cardiac catheterization Kaiseru lul Sathya Gene Work Phone: Cholecystectomy Dara Mcdonnell Alexandra s Work Phone: History of percutane ous transluminal coronary angioplasty History of PTCA Dara Mills Work Phone: Hysterectomy Dara Mcdonnell Gene Work Phone: Kidney operation Dara Sathya Cook ss Work Phone: Operative procedure on foot Daragerardo Mills Work Phone: Operative procedure on knee Dara Mills Work Phone: Total colonoscopy Dara Sathya boyce Work Phone: Plan of Treatment Date Care Activity Detail Author Start: 03-20-2034 Screening for malign ant neoplasm of colon [facility] Start: 04-05-2026 Urine screening for protein Diabetes: Urine Protein Screening [facility] Start: 10-06-2025 Hemoglobin A1c measurement Diabetes: Hemoglobin A1C [facility] Start: 07-20-2025 Adult BMI Screening Adult BMI Screen ing [facility] Start: 07-20-2025 Tobacco Screening Tobacco Screening [facility] Start: 07-11-2025 End: 07-11-2025 Patient encounter procedure 07/11/2025 9:40 AM EDT Office Visit [facility] [address] [place] [address] Veronique Harris NP [address] [place] [address] [facility] Start: 06-02-2025 Hemoglobin A1c measurement Diabetes: Hemoglobin A1C [facility] Start: 09-01-2025 Influenza vaccination Influenza Vacc ine [facility] Start: 04-11-2025 End: 04-11-2025 Patient encounter procedure 04/11/2025 10:15 AM EDT Office Visit [facility] [address] [place] [phone] Bao Noble, DPEitan [address] [place] [address] [facility] Start: 04-05-2025 End: 04-05-2026 Basic metabolic 1998 panel - Serum or Plasma Basic metabolic panel Lab Routine Hypokalemia Expected: 04/05/2025 (Approximate), Expires: 04/05/2026 [facility] Work Phone: Comment on above: Expected: 04/05/2025 (Approximate), Expires: 04/05/2026 Start: 04-05-2025 End: 04-05-2026 CT Abdomen and Pelvis W contrast IV CT abdomen pelvis w IV contrast Imaging Routine Microscopic hematuria Colovaginal fistula Elevated alkaline phosphatase level Expected: 04/05/2025 (Approximate), Expires: 04/05/2026 [facility] Work Phone: Comment on above: Expected: 04/05/2025 (Approximate), Expires: 04/05/2026 Start: 04-05-2025 End: 04-05-2025 Patient encounter procedure 04/05/2025 9:40 AM EDT Office Visit [facility] [address] [place] [address] Veronique Harris NP [address] [place] [address] [facility] Start: 02-14-2025 End: 02-14-2025 Patient encounter procedure 02/14/2025 2:30 PM EDT [facility] [address] [place] [phone] [place] [address] [place] [address] [facility] Start: 02-13-2025 Screening for malign ant neoplasm of breast Mammogram [facility] Start: 01-24-2025 Hemoglobin A1c measurement Diabetes: Hemoglobin A1C [facility] Start: 01-08-2025 End: 01-08-2025 Patient encounter procedure 01/08/2025 1:30 PM EDT Procedure Visit [facility] [address] [place] [phone] Bao Noble DPM [address] [place], [place] [phone] [facility] Start: 01-04-2025 End: 01-04-2025 Patient encounter procedure 01/04/2025 3:00 PM EDT Office Visit [facility] [address] [place] [address] Veronique Harris, AUTOMOTIVE SERVICE MANAGER [address] [place] [phone] [facility] Start: 01-01-2025 End: 01-01-2025 Patient encounter procedure 01/01/2025 9:00 AM EDT Office Visit [facility] [address] [place] [address] Veronique Harris, ANNA [address] [place] [address] [facility] Start: 12-27-2024 End: 12-27-2024 Patient encounter procedure 12/27/2024 9:15 AM EDT Procedure Visit [facility] [address] [place] [phone] Bao Noble DPM [address] [place], [place] [phone] [facility] Start: 11-30-2024 End: 11-30-2024 Patient encounter procedure 11/30/2024 2:40 PM EST Office Visit [facility] [address] [place] [address] Veronique Harris, AUTOMOTIVE SERVICE MANAGER [address] [place] [phone] [facility] Start: 11-24-2024 Urine screening for protein Diabetes: Urine Protein Screening [facility] Start: 11-15-2024 End: 11-15-2024 Patient encounter procedure 11/15/2024 6:00 PM EST Office Visit [facility] [address] [place] [phone] Veronique Harris, AUTOMOTIVE SERVICE MANAGER [address] [place] [phone] [facility] Start: 11-06-2024 End: 11-06-2025 URINARY TRACT INFECTION (HTRX) URINARY TRACT INFECTION (HTRX) Lab Routine UTI symptoms Expected: 11/06/2024 (Approximate), Expires: 11/06/2025 [facility] Work Phone: Comment on above: Expected: 11/06/2024 (Approximate), Expires: 11/06/2025 Start: 09-18-2024 End: 09-18-2024 Patient encounter procedure 09/18/2024 10:15 AM EST Office Visit [facility] [address] [place] [phone] Bao Noble DPM [address] [place] [place] [phone] Arrived [facility] Comment on above: Arrived Start: 08-16-2024 End: 08-16-2024 Patient encounter procedure 08/16/2024 5:00 PM EST Office Visit [facility] [address] [place] [address] Veronique Harris, ANNA [address] [place] [phone] Cigarette nicotine dependence with nicotine-induced disorder (Primary Dx); Primary hypertension (CMS/HCC); Abdominal aortic pulsation; Acute bilateral low back pain without sciatica [facility] Comment on above: Cigarette nicotine d ependence with nicotine-induced disorder (Primary Dx); Primary hypertension (CMS/HCC); Abdominal aortic pulsation; Acute bilateral low back pain without sciatica Start: 08-15-2024 End: 08-15-2024 Patient encounter procedure 08/15/2024 9:40 AM EST Office Visit [facility] [address] [place] [address] Veronique Harris NP [address] [place] [address] [facility] Start: 07-31-2024 End: 07-31-2025 US Abdominal Aorta for screening Vascular US abdominal aorta anuerysm AAA screening Imaging Routine Abdominal aortic pulsation Expected: 07/31/2024 (Approximate), Expires: 07/31/2025 [employer] Work Phone: Comment on above: Expected: 07/31/2024 (Approximate), Expires: 07/31/2025 Start: 07-27-2024 End: 07-27-2025 US.doppler Pelvis vessels limited Vascular US abdomen/pelvis duplex limited Imaging Routine Abdominal aortic pulsation Expected: 07/27/2024, Expires: 07/27/2025 [employer] Work Phone: Comment on above: Expected: 07/27/2024 , Expires: 07/27/2025 Start: 07-27-2024 End: 07-27-2024 Patient encounter procedure 07/27/2024 9:40 AM EDT Office Visit [facility] [address] [place] [address] Veronique Harris, ANNA [address] [place] [phone] Controlled type 2 diabetes mellitus without complication, without long-term current use of insulin (CMS/HCC) (Primary Dx); Type 2 diabetes mellitus with diabetic chronic kidney disease (CMS/HCC); Chronic kidney disease, stage 2 (mild); Crwsn-1-wcpzucrqcho deficiency (CMS/HCC); Mixed hyperlipidemia (CMS/HCC); Chronic obstructive pulmonary disease, unspecified COPD type (CMS/HCC); Gastroesophageal reflux disease without esophagitis; Other specified hypothyroidism (CMS/HCC); Primary hypertension (CMS/HCC); Seasonal allergic rhinitis due to pollen; 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 [facility] Comment on above: Controlled type 2 di abetes mellitus without complication, without long-term current use of insulin (CMS/HCC) (Primary Dx); Type 2 diabetes mellitus with diabetic chronic kidney disease (CMS/HCC); Chronic kidney disease, stage 2 (mild); Lnhrt-8-jjzdnsxsqao deficiency (CMS/HCC); Mixed hyperlipidemia (CMS/HCC); Chronic obstructive pulmonary disease, unspecified COPD type (CMS/HCC); Gastroesophageal reflux disease without esophagitis; Other specified hypothyroidism (CMS/HCC); Primary hypertension (CMS/HCC); Seasonal allergic rhinitis due to pollen; 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 Start: 07-17-2024 End: 07-17-2024 Patient encounter procedure 07/17/2024 9:40 AM EDT Office Visit [facility] [address] [place] [address] Veronique Harris, ANNA [address] [place] [phone] [facility] Start: 06-21-2024 End: 06-21-2025 Bacteria identified in Urine by Culture Urine culture (clean catch) Microbiology Routine UTI symptoms Expected: 06/21/2024 (Approximate), Expires: 06/21/2025 [facility] Comment on above: Expected: 06/21/2024 (Approximate), Expires: 06/21/2025 Start: 06-21-2024 End: 06-21-2025 Urinalysis complete panel - Urine Urinalysis with reflex microscopic (clean catch) Lab Routine UTI symptoms Expected: 06/21/2024 (Approximate), Expires: 06/21/2025 [facility] Work Phone: Comment on above: Expected: 06/21/2024 (Approximate), Expires: 06/21/2025 Start: 06-21-2024 End: 06-21-2025 VAGINITIS (HTRX) VAGINITIS (HTRX) Lab Routine Vaginal bleeding Vaginal discharge Expected: 06/21/2024 (Approximate), Expires: 06/21/2025 [facility] Comment on above: Expected: 06/21/2024 (Approximate), Expires: 06/21/2025 Start: 06-21-2024 End: 06-21-2024 Patient encounter procedure 06/21/2024 11:00 AM EDT Office Visit [facility] [address] [place] [address] Veronique Harris NP [address] [place] [address] Arrived [facility] Comment on above: Arrived Start: 05-24-2024 Hemoglobin A1c measurement Diabetes: Hemoglobin A1C [facility] Start: 03-20-2024 Screening for malign ant neoplasm of colon [facility] Start: 10-06-2023 FUV, Provider: Rafael Washington, Status: Pen, Time: 10:30 AM FUV, Provider: Rafael Washington, Status: Julio, Time: 10:30 AM [facility] [employer] DO Work Phone: Start: 10-06-2022 FUV, Provider: Rafael Washington, Status: Pen, Time: 1:20 PM FUV, Provider: Rafael Washington, Status: Pen, Time: 1:20 PM [facility] [employer] 250 DO Work Phone: Start: 04-14-2022 FUV, Provider: Rafael Washington, Status: Julio, Time: 11:20 AM FUV, Provider: Rafael Washington, Status: Julio, Time: 11:20 AM -[facility]Kamar Graham DO Work Phone: Start: 08-18-2021 End: 08-18-2021 Patient encounter procedure 08/18/2021 Appointment Cardiac Rehabilitation [facility] Start: 08-18-2021 End: 08-18-2021 Patient encounter procedure 08/18/2021 Appointment [facility]iac Rehabilitation [facility] Start: 08-14-2021 End: 08-14-2021 Patient encounter procedure 08/14/2021 Appointment [facility]iac Rehabilitation [facility] Start: 08-14-2021 End: 08-14-2021 Patient encounter procedure 08/14/2021 Appointment [facility] Start: 08-13-2021 End: 08-13-2021 Patient encounter procedure 08/13/2021 Appointment [facility] Start: 08-13-2021 End: 08-13-2021 Patient encounter procedure 08/13/2021 Appointment [facility] Start: 08-11-2021 End: 08-11-2021 Patient encounter procedure 08/11/2021 Appointment [facility] Start: 08-11-2021 End: 08-11-2021 Patient encounter procedure 08/11/2021 Appointment [facility] Start: 08-07-2021 End: 08-07-2021 Patient encounter procedure 08/07/2021 Appointment [facility] Start: 08-07-2021 End: 08-07-2021 Patient encounter procedure 08/07/2021 Appointment [facility] Start: 08-06-2021 End: 08-06-2021 Patient encounter procedure 08/06/2021 Appointment [facility] Start: 08-06-2021 End: 08-06-2021 Patient encounter procedure 08/06/2021 Appointment [facility] Start: 08-04-2021 End: 08-04-2021 Patient encounter procedure 08/04/2021 Appointment [facility] Start: 08-04-2021 End: 08-04-2021 Patient encounter procedure 08/04/2021 Appointment Cardiac Rehabilitation [facility] Card[facility] Re[facility] Start: 07-31-2021 End: 07-31-2021 Patient encounter procedure 07/31/2021 Appointment Cardiac Rehabilitation [facility] Card[facility] Start: 07-31-2021 End: 07-31-2021 Patient encounter procedure 07/31/2021 Appointment [facility]iac Rehabilitation [facility] Card[facility] Start: 07-30-2021 End: 07-30-2021 Patient encounter procedure 07/30/2021 Appointment [facility]iac Rehabilitation [facility] Start: 07-30-2021 End: 07-30-2021 Patient encounter procedure 07/30/2021 Appointment [facility]iac Rehabilitation [facility] Start: 07-28-2021 End: 07-28-2021 Patient encounter procedure 07/28/2021 Appointment [facility]iac Rehabilitation [facility] Start: 07-28-2021 End: 07-28-2021 Patient encounter procedure 07/28/2021 Appointment [facility] Start: 2021 End: 2021 Patient encounter procedure 2021 Appointment [facility] Start: 2021 End: 2021 Patient encounter procedure 2021 Appointment [facility] Start: 07-23-2021 End: 07-23-2021 Patient encounter procedure 07/23/2021 Appointment Cardiac Rehabilitation [facility] Start: 07-23-2021 End: 07-23-2021 Patient encounter procedure 07/23/2021 Appointment [facility]iac Rehabilitation [facility] Start: 07-21-2021 End: 07-21-2021 Patient encounter procedure 07/21/2021 Appointment [facility]iac Rehabilitation [facility] Start: 07-17-2021 End: 07-17-2021 Patient encounter procedure 07/17/2021 Appointment Cardiac Rehabilitation [facility] Start: 07-16-2021 End: 07-16-2021 Patient encounter procedure 07/16/2021 Appointment [facility]iac Rehabilitation [facility] Start: 07-14-2021 End: 07-14-2021 Patient encounter procedure 07/14/2021 Appointment [facility]iac Rehabilitation [facility] Start: 07-10-2021 End: 07-10-2021 Patient encounter procedure 07/10/2021 Appointment [facility]iac Rehabilitation [facility] Start: 07-09-2021 End: 07-09-2021 Patient encounter procedure 07/09/2021 Appointment Cardiac Rehabilitation [facility] Start: 07-07-2021 End: 07-07-2021 Patient encounter procedure 07/07/2021 Appointment Cardiac Rehabilitation [facility] Start: 07-03-2021 End: 07-03-2021 Patient encounter procedure 07/03/2021 Appointment Cardiac Rehabilitation [facility] Start: 07-02-2021 End: 07-02-2021 Patient encounter procedure 07/02/2021 Appointment Cardiac Rehabilitation [facility] Start: 06-30-2021 End: 06-30-2021 Patient encounter procedure 06/30/2021 Appointment Cardiac Rehabilitation [facility] Start: 06-26-2021 End: 06-26-2021 Patient encounter procedure 06/26/2021 Appointment Cardiac Rehabilitation [facility] Start: 06-25-2021 End: 06-25-2021 Patient encounter procedure 06/25/2021 Appointment Cardiac Rehabilitation [facility] Start: 06-23-2021 End: 06-23-2021 Patient encounter procedure 06/23/2021 Appointment Cardiac Rehabilitation [facility] Start: 06-19-2021 End: 06-19-2021 Patient encounter procedure 06/19/2021 Appointment Cardiac Rehabilitation [facility] Start: 06-18-2021 End: 06-18-2021 Patient encounter procedure 06/18/2021 Appointment Cardiac Rehabilitation [facility] Start: 06-16-2021 End: 06-16-2021 Patient encounter procedure 06/16/2021 Appointment Cardiac Rehabilitation [facility] Start: 06-12-2021 End: 06-12-2021 Patient encounter procedure 06/12/2021 Appointment Cardiac Rehabilitation [facility] Start: 06-11-2021 End: 06-11-2021 Patient encounter procedure 06/11/2021 Appointment Cardiac Rehabilitation [facility] Start: 06-09-2021 End: 06-09-2021 Patient encounter procedure 06/09/2021 Appointment Cardiac Rehabilitation [facility] Start: 06-05-2021 End: 06-05-2021 Patient encounter procedure 06/05/2021 Appointment Cardiac Rehabilitation [facility] Start: 06-04-2021 End: 06-04-2021 Patient encounter procedure 06/04/2021 Appointment Cardiac Rehabilitation [facility] Start: 06-02-2021 End: 06-02-2021 Patient encounter procedure 06/02/2021 Appointment Cardiac Rehabilitation [facility] Start: 05-29-2021 End: 05-29-2021 Patient encounter procedure 05/29/2021 Appointment Cardiac Rehabilitation [facility] Start: 05-28-2021 Influenza vaccination Flu vaccine (# 1) [employer] Phone: Start: 05-28-2021 End: 05-28-2021 Patient encounter procedure 05/28/2021 Appointment Cardiac Rehabilitation [facility] Start: 05-26-2021 End: 05-26-2021 Patient encounter procedure 05/26/2021 Appointment Cardiac Rehabilitation [facility] Start: 05-22-2021 End: 05-22-2021 Patient encounter procedure 05/22/2021 Appointment Cardiac Rehabilitation [facility] Start: 05-21-2021 End: 05-21-2021 Patient encounter procedure 05/21/2021 Appointment Cardiac Rehabilitation [facility] Start: 05-19-2021 End: 05-19-2021 Patient encounter procedure 05/19/2021 Appointment Cardiac Rehabilitation [facility] Start: 05-15-2021 End: 05-15-2021 Patient encounter procedure 05/15/2021 Appointment Cardiac Rehabilitation [facility] Start: 05-14-2021 End: 05-14-2021 Patient encounter procedure 05/14/2021 Appointment Cardiac Rehabilitation [facility] Start: 05-12-2021 End: 05-12-2021 Patient encounter procedure 05/12/2021 Appointment Cardiac Rehabilitation [facility] Start: 05-08-2021 End: 05-08-2021 Patient encounter procedure 05/08/2021 Appointment Cardiac Rehabilitation [facility] Start: 05-07-2021 End: 05-07-2021 Patient encounter procedure 05/07/2021 Appointment Cardiac Rehabilitation [facility] Start: 05-05-2021 End: 05-05-2021 Patient encounter procedure 05/05/2021 Appointment Cardiac Rehabilitation [facility] Start: 05-01-2021 End: 05-01-2021 Patient encounter procedure 05/01/2021 Appointment Cardiac Rehabilitation [facility] Start: 04-30-2021 End: 04-30-2021 Patient encounter procedure 04/30/2021 Appointment Cardiac Rehabilitation [facility] Start: 04-28-2021 End: 04-28-2021 Patient encounter procedure 04/28/2021 Appointment Cardiac Rehabilitation [facility] Start: 04-24-2021 End: 04-24-2021 Patient encounter procedure 04/24/2021 Appointment Cardiac Rehabilitation [facility] Start: 04-23-2021 End: 04-23-2021 Patient encounter procedure 04/23/2021 Appointment Cardiac Rehabilitation [facility] Start: 04-21-2021 End: 04-21-2021 Patient encounter procedure 04/21/2021 Appointment Cardiac Rehabilitation [facility] Start: 04-17-2021 End: 04-17-2021 Patient encounter procedure 04/17/2021 Appointment Cardiac Rehabilitation [facility] Start: 04-16-2021 End: 04-16-2021 Patient encounter procedure 04/16/2021 Appointment Cardiac Rehabilitation [facility] Start: 04-14-2021 End: 04-14-2021 Patient encounter procedure 04/14/2021 Appointment Cardiac Rehabilitation [facility] Start: 04-10-2021 End: 04-10-2021 Patient encounter procedure 04/10/2021 Appointment Cardiac Rehabilitation [facility] Start: 2012 Administration of varicella zoster vaccine Zoster (Shingles) Vaccine (1 of 2) [employer] Start: 2012 Screening for malign ant neoplasm of breast Breast cancer screen [employer] Phone: Start: 2012 Shingles Vaccine (1 of 2) Shingles Vaccine (1 of 2) [employer] Phone: Start: 2007 Screening for malign ant neoplasm of colon Colon cancer screen colonoscopy [employer] Phone: Start: 2002 Diabetes screen Diabetes screen [employer] Phone: Start: 1992 Screening for malign ant neoplasm of cervix [facility] [employer] Phone: Start: 1983 Screening for malign ant neoplasm of cervix [facility] Start: 1981 DTaP,Tdap and Td Vaccines (1 - Tdap) DTaP,Tdap and Td Vaccines (1 - Tdap) [facility] Start: 1981 DTaP/Tdap/Td vaccine (1 - Tdap) DTaP/Tdap/Td vaccine (1 - Tdap) [facility] [employer] Phone: Start: 1977 HIV screening HIV screen [facility] Work Phone: Start: 1974 COVID-19 Vaccine (1) COVID-19 Vaccin e (1) [facility] [employer] Phone: Start: 1974 Depression Screening Depression Scre [facility] Start: 1972 Glaucoma screening Diabetes: R etinopathy Screening [facility] [employer] Start: 1972 Lipid panel Lipid screen [facility] Work Phone: Start: 1968 Pneumococcal 0-64 ye ars Vaccine (1 of 2 - PPSV23) Pneumococcal 0-64 years Vaccine (1 of 2 - PPSV23) [facility] [employer] Phone: Start: 1962 Creatinine measurement Creatinine mo nitoring [facility] [employer] Phone: Start: 1962 Hepatitis C screening Hepatitis C sc reen [facility] [employer] Phone: Start: 1962 Potassium monitoring Potassium monit oring [facility] [employer] Phone: Start: 1962 Screening for malign ant neoplasm of colon [facility] [employer] Start: 1962 Tobacco Counseling Tobacco Counselin g [facility] CARDIAC PHASE II [facility] Work Phone: Comment on above: Ordered: 05/26/2021 Ordered: 05/28/2021 Ordered: 07/02/2021 Payers Date Payer Category Payer Unknown [id number] 2023 Medicaid [facility] MEDICAID [id number] 2022 Medicaid [employer] [id number] 2022-Present [address] [place], [place] [address] [id number] 2022 Private Health Insurance [facility] MEDICAID [id number] 1962 Unknown [id number] 2.16.840.1.310710.3.579. 2.173 1962 Unknown [id number] 2.16.840.1.961503.3.579. 2.173 1962 Unknown [id number] 2.16.840.1.346445.3.579. 2.173 1962 Unknown [id number] 2.16.840.1.885024.3.579. 2.173 1962 Unknown [id number] 2.16.840.1.621164.3.579. 2.173 1962 Unknown [id number] 2.16.840.1.658982.3.579. 2.173 1962 Unknown [id number] 2.16.840.1.442027.3.579. 2.173 1962 Unknown [id number] 2.16.840.1.009804.3.579. 2.173 1962 Unknown [id number] 2.16.840.1.707559.3.579. 2.173 1962 Unknown [id number] 2.16.840.1.530306.3.579. 2.173 1962 Unknown [id number] 2.16.840.1.235637.3.579. 2.173 1962 Unknown [id number] 2.16.840.1.245734.3.579. 2.173 1962 Unknown [id number] 2.16.840.1.516084.3.579. 2.173 1962 Unknown [id number] 2.16.840.1.896093.3.579. 2.173 1962 Unknown [id number] 2.16.840.1.787876.3.579. 2.173 1962 Unknown [id number] 2.16.840.1.137076.3.579. 2.173 1962 Unknown [id number] 2.16.840.1.923939.3.579. 2.173 1962 Unknown [id number] 2.16.840.1.541911.3.579. 2.173 1962 Unknown [id number] 2.16.840.1.187641.3.579. 2.173 1962 Unknown [id number] 2.16.840.1.205348.3.579. 2.173 1962 Unknown [id number] 2.16.840.1.745368.3.579. 2.173 1962 Unknown [id number] 2.16.840.1.867740.3.579. 2.173 1962 Unknown [id number] 2.16.840.1.296058.3.579. 2.173 1962 Unknown [id number] 2.16.840.1.588357.3.579. 2.173 1962 Unknown [id number] 2.16.840.1.044462.3.579. 2.173 1962 Unknown [id number] 2.16.840.1.127348.3.579. 2.356 1962 Unknown [id number] 2.16.840.1.844343.3.579. 2.356 1962 Unknown [id number] 2.16.840.1.959316.3.579. 2.356 1962 Unknown [id number] 2.16.840.1.739435.3.579. 2.593 1962 Unknown [id number] 2.16.840.1.299469.3.579. 2.593 1962 Unknown [id number] 2.16.840.1.380079.3.579. 2.593 1962 Unknown [id number] 2.16.840.1.443291.3.579. 2.593 1962 Unknown [id number] 2.16.840.1.488918.3.579. 2.732 1962 Unknown [id number] 2.16.840.1.033368.3.579. 2.1286 1962 Unknown [id number] 2.16.840.1.563357.3.579. 2.1259 1962 Unknown [id number] 2.16.840.1.839062.3.579. 2.1259 1962 Unknown [id number] 2.16.840.1.401702.3.579. 2.1259 1962 Unknown [id number] 2.16.840.1.658567.3.579. 2.9 1962 Unknown [id number] 2.16.840.1.413205.3.579. 2.1259 1962 Unknown [id number] 2.16.840.1.286564.3.579. 2.1259 1962 Unknown [id number] 2.16.840.1.603258.3.579. 2.1259 1962 Unknown [id number] 2.16.840.1.466225.3.579. 2.1259 1962 Unknown [id number] 2.16.840.1.720389.3.579. 2.1259 1962 Unknown [id number] 2.16.840.1.243835.3.579. 2.727 1959 Medicaid [id number] 1959 Unknown [id number] Unknown Social History Date Type Detail Facility Start: 04-08-2021 End: 12-06-2024 Tobacco smoking status KSIS Current every day smoker [employer] Phone: History of tobacco use Cigarette Smoker [employer] Start: 04-08-2021 End: 04-05-2025 Cigarettes smoked current (pack per day) - Reported [employer] Phone: Comment on above: POP DAILY; 6 CIGS A DAY; Start: 04-08-2021 End: 07-20-2024 Tobacco use and exposure Never used [employer] Start: 04-08-2021 End: 04-05-2025 Alcohol intake Ex-drinker (finding) [employer] Phone: Start: 04-08-2021 Tobacco Comment 2 cigs a day [employer] Work Phone: Start: 1960 Sex Assigned At Not on file [facility] [employer] Work Phone: Start: 06-21-2024 End: 04-05-2025 Tobacco use panel [facility] Start: 09-08-2023 Alcohol Comment caffeine 2-3 c ups per day [facility] Start: 07-20-2024 Alcoholic beverage intake Lifetime non-drinker (finding) [facility] Childcare Unknown [facility] Start: 05-02-2015 Sex Female (finding) [facility] Clinical Notes 04-08-2021 to 04-12-2025 Telephone Encounter - Nardaalejandro Gayle - 04/12/2025 9:27 AM EDTTelephone Encounter - Narda Gayle - 04/12/2025 9:27 AM EDTTelephone Encounter - Jaden Sherwood - 04/11/2025 10:35 AM EDT Note Date & Type Note Facility 04-12-2025 Telephone encounter Note Thank you for letting me know Jaden. Next no show no call we will not be able to reschedule another appt. [facility] 04-12-2025 Miscellaneous Notes Thank you for letting me know Jaden. Next no show no call we will not be able to reschedule another appt. Patient no showed her appointment with Dr. Bao Noble today. This is her second no show with our office (12/27/2024 & 04/11/2025). documented in this encounter [facility] 04-11-2025 Telephone encounter Note Patient no showed her appointment with Dr. Bao Noble today. This is her second no show with our office (12/27/2024 & 04/11/2025). [facility] 04-05-2025 History of Present illness Narrative Associated Problem(s): Other specified hypothyroidism On levothyroxine Check labs yearly, and prn dose change or changes in sxs Images from the original note were not included. Fausto Corrigan is a 64 y.o. female presents with chief complaint of Diabetes HPI: Diabetes She presents for her follow-up diabetic visit. She has type 2 diabetes mellitus. Her disease course has been stable. There are no hypoglycemic associated symptoms. Pertinent negatives for hypoglycemia include no dizziness, headaches, nervousness/anxiousness, seizures or tremors. Pertinent negatives for diabetes include no blurred vision, no chest pain, no foot paresthesias, no polydipsia, no polyphagia and no polyuria. There are no hypoglycemic complications. Symptoms are stable. Diabetic complications include heart disease. Pertinent negatives for diabetic complications include no peripheral neuropathy. Risk factors for coronary artery disease include diabetes mellitus, dyslipidemia and hypertension. Current diabetic treatment includes oral agent (dual therapy). She is compliant with treatment most of the time. An NOAH inhibitor/angiotensin II receptor karon is being taken. 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 Hypertension This is a chronic problem. The current episode started more than 1 year ago. The problem has been waxing and waning since onset. The problem is uncontrolled. Pertinent negatives include no blurred vision, chest pain, headaches, palpitations, peripheral edema (occ) or shortness of breath. There are no associated agents to hypertension. Risk factors for coronary artery disease include diabetes mellitus, dyslipidemia and smoking/tobacco exposure. Past treatments include beta blockers and NOAH inhibitors. The current treatment provides moderate improvement. There are no compliance problems. Hypertensive end-organ damage includes CAD/AL. There is no history of heart failure. SUBJECTIVE: MEDICATIONS: Current Outpatient Medications Medication Instructions albuterol HFA 90 mcg/act inhaler 2 puffs, Inhalation, Every 6 hours PRN albuterol 2.5 mg, 4 times daily ASPIRIN 81 PO 81 mg, Daily atorvastatin (LIPITOR) 80 mg, Oral, Nightly budesonide-formoterol (Symbicort) 160-4.5 MCG/ACT inhaler 2 puffs, Inhalation, 2 times daily, Rinse mouth after use dicyclomine (Bentyl) 10 MG capsule TAKE 1 CAPSULE (10 MG) BY MOUTH 4 (FOUR) TIMES A DAY NEEDED (ABDOMINAL PAIN OR CRAMPS) empagliflozin (JARDIANCE) 25 mg, Oral, Daily levothyroxine (SYNTHROID, LEVOXYL) 125 mcg, Oral, Daily before breakfast lisinopril 30 mg, Oral, Daily metoprolol tartrate (LOPRESSOR) 25 mg, Oral, 2 times daily montelukast (SINGULAIR) 10 mg, Oral, Nightly nitroglycerin (NITROSTAT) 0.4 mg, Every 5 min PRN pantoprazole (PROTONIX) 40 mg, Oral, 2 times daily pioglitazone (ACTOS) 15 mg, Oral, Daily ALLERGIES: Allergies Allergen Reactions Levaquin [Levofloxacin] Itching Sulfa Antibiotics REVIEW OF SYMPTOMS: Review of Systems Constitutional: Negative for appetite change, chills and fever. HENT: Negative for congestion, ear pain and sore throat. Eyes: Negative for blurred vision, pain, discharge, redness and visual disturbance. Respiratory: Negative for cough (smokers cough), shortness of breath and wheezing. Cardiovascular: Negative for chest pain, palpitations and leg swelling (occ). Gastrointestinal: Negative for abdominal pain, blood in stool, constipation, diarrhea, nausea and vomiting. Genitourinary: Negative for difficulty urinating, dysuria and frequency. Musculoskeletal: Negative for arthralgias, back pain, joint swelling and myalgias. Skin: Negative for rash and wound. Neurological: Negative for dizziness, tremors, seizures, syncope and headaches. Psychiatric/Behavioral: Negative for behavioral problems, self-injury and suicidal ideas. The patient is not nervous/anxious. Hematological: Does not bruise/bleed easily. Endocrine: Negative for polydipsia, polyphagia and polyuria. Allergic/Immunologic: Negative for environmental allergies and food allergies. PAST MEDICAL HISTORY Past Medical History: Diagnosis Date Abnormal CXR Lzrxg-8-[id number] deficiency 12/09/2023 Atypical mole Chronic obstructive pulmonary disease (HCC) Cigarette nicotine dependence with nicotine-induced disorder 12/09/2023 Coronary artery disease Dental infection 12/09/2023 Diabetes type 2, controlled ([facility]) 09/30/2023 Diverticulitis 11/16/2023 Diverticulosis diverticulosis/diverticulitis Elevated alkaline phosphatase level 11/24/2023 Gastroesophageal reflux disease without esophagitis 09/16/2023 Generalized abdominal pain 08/31/2023 HTN (hypertension) Hypothyroidism Other specified hypothyroidism 09/16/2023 Pain, dental Perforated diverticulum 2017 perforated diverticuli Postmenopausal postcoital bleeding 12/09/2023 Seasonal allergic rhinitis due to pollen 12/09/2023 Stage 3a chronic kidney disease (CKD) ([facility]) 12/09/2023 STEMI (ST elevation myocardial infarction) ([facility]) Stress at home 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 11/16/2023 Past Surgical History: Procedure Laterality Date APPENDECTOMY CARDIAC SURGERY Left heart-ventricular puncture CHOLECYSTECTOMY lap choley COLONOSCOPY 2016 KNEE SURGERY Right arthroscopy ORIF FOOT FRACTURE Right ROTATOR CUFF REPAIR Right TOTAL ABDOMINAL HYSTERECTOMY WISDOM TOOTH EXTRACTION family history includes Cancer in her father and mother; Diabetes in her mother; Heart disease in her father and mother; Hypertension in her father and mother; Skin cancer in her sister. OBJECTIVE: Visit Vitals BP 160/84 (BP Location: Left arm, Patient Position: Sitting, BP Cuff Size: Adult long) Pulse 67 Temp 97.5 F (Temporal) Resp 18 Wt 139 lb SpO2 97% BMI 25.84 kg/m Smoking Status Every Day BSA 1.65 m Physical Exam Vitals and nursing note reviewed. Constitutional: General: She is not in acute distress. Appearance: Normal appearance. HENT: Head: Normocephalic and atraumatic. Right Ear: External ear normal. Left Ear: External ear normal. Nose: Nose normal. Mouth/Throat: Mouth: Mucous membranes are moist. Eyes: Extraocular Movements: Extraocular movements intact. Conjunctiva/sclera: Conjunctivae normal. Neck: Vascular: No carotid bruit. Cardiovascular: Rate and Rhythm: Normal rate and regular rhythm. Pulses: Normal pulses. Heart sounds: Normal heart sounds. No murmur heard. Pulmonary: Effort: Pulmonary effort is normal. Breath sounds: Normal breath sounds. No wheezing or rhonchi. Abdominal: General: Bowel sounds are normal. There is no distension. Palpations: Abdomen is soft. There is no mass. Tenderness: There is no abdominal tenderness. Musculoskeletal: General: Normal range of motion. Cervical back: Normal range of motion and neck supple. Right lower leg: No edema. Left lower leg: No edema. Skin: General: Skin is warm and dry. Capillary Refill: Capillary refill takes 2 to 3 seconds. Findings: No rash. Neurological: General: No focal deficit present. Mental Status: She is alert and oriented to person, place, and time. Psychiatric: Mood and Affect: Mood normal. Behavior: Behavior normal. Thought Content: Thought content normal. Judgment: Judgment normal. ASSESSMENT AND PLAN: No follow-ups on file. Problem List Items Addressed This Visit Coronary artery disease Current meds: asa, statin, b karon, jardiance, noah HTN (hypertension) - Primary Please check blood pressure daily and record DASH diet Limit caffeine Take medication as directed Contact office if chest pain, pressure, dizziness, shortness of breath, swelling legs Recommend slow position changes Current med: b karon and noah RESOLVED: Diabetes type 2, controlled ([facility]) Relevant Orders POCT glycosylated hemoglobin (Hb A1C) docked device Breast cancer screening by mammogram Cigarette nicotine dependence with nicotine-induced disorder The patient has been advised of the risks of continued smoking: stroke, AL, all forms of cancer, lung disease, and . Options for quitting smoking include: cold turkey, hypnosis, acupuncture, nicotine replacement meds (gum, lozenges, and patches), Buproprion, and Varenicline. At this time pt is encouraged to evaluate their goals for wanting to quit smoking, and reach out to provider when ready to start this process Chronic kidney disease, stage 3a ([facility]) Check labs yearly and prn Control BP and DM On jardiance Vaginal bleeding Insurance denied CT Pt was referred to [employer] [facility], according to chart note entry pt was scheduled with dr abarca on 02/14/25 Type 2 diabetes mellitus with diabetic chronic kidney disease (HCC) Check blood sugars daily, notify if <70 [...] sugars. Current meds: asa, statin, jardiance, pioglitazone Medical non-compliance Has not gotten labs completed from 12/19, did not go to [facility] appt either Associated Problem(s): Cigarette nicotine dependence with nicotine-induced disorder The patient has been advised of the risks of continued smoking: stroke, AL, all forms of cancer, lung disease, and . Options for quitting smoking include: cold turkey, hypnosis, acupuncture, nicotine replacement meds (gum, lozenges, and patches), Buproprion, and Varenicline. At this time pt is encouraged to evaluate their goals for wanting to quit smoking, and reach out to provider when ready to start this process Associated Problem(s): Medical non-compliance Has not gotten labs completed from 12/19, did not go to [facility] appt either I have explained that labs are needed to safely prescribe meds no meds until labs Explained reason for [facility], # given Will resend low dose CT chest and mammogram to [facility] Associated Problem(s): Type 2 diabetes mellitus with diabetic chronic kidney disease (HCC) Check blood sugars daily, notify if <70 [...] asa, statin, jardiance, pioglitazone A1c: 6.7% 04/05/25 Associated Problem(s): Chronic kidney disease, stage 3a ([facility]) Check labs yearly and prn Control BP and DM On jardiance Associated Problem(s): Vaginal bleeding Insurance denied CT Pt was referred to [employer] [facility], according to chart note entry pt was scheduled with dr abarca on 02/14/25 Phone number given for her to reach out to call At this point I have explained to the patient that unexplained vag bleeding may be related to a cancer diagnosis and that is why we want her to see [facility] She is urged to make an appt, although she states no further episodes since last visit Associated Problem(s): Coronary artery disease Current meds: asa, statin, b karon, jardiance, noah Associated Problem(s): HTN (hypertension) Please check blood pressure daily and record [...] receive the labs I will make adjustments documented in this encounter [facility] 04-05-2025 Instructions Veronique Harris NP - 04/05/2025 9:40 AM EDT I can not continue to prescribe your medications until you get your labs completed: please do it today A1c is 6.7% Veronique Montez: [facility]: [phone], please call them for an appt, let them know they had a referral from our office I would like you to get mammogram and low dose CT chest completed to , I will fax order to [facility], you can call them to schedule: [phone]- ext [phone] documented in this encounter [facility] 01-11-2025 Miscellaneous Notes Referral received from Veronique Harris CNP to see Pt for post-menopausal bleeding. LVM for Pt to call Office for appointment. Referral scanned into [employer]. Pt scheduled with Dr. Abarca on 02/14/25. documented in this encounter [facility] 01-11-2025 Telephone encounter Note Referral received from Veronique Harris CNP to see Pt for post-menopausal bleeding. LVM for Pt to call Office for appointment. Referral scanned into [employer]. [facility] 01-11-2025 Telephone encounter Note Pt scheduled with Dr. Abarca on 02/14/25. [facility] 01-08-2025 History of Present illness Narrative Images from the original note were not included. Subjective Patient ID: Fausto Corrigan is a 64 y.o. female who presents for DM Foot Care (Pt is here today for diabetic foot care/BS: Doesn't check A1C: 6.5/Lv Dr. Deluca 01-04-2025/SS: 8-8.5). HPI Established patient returns to clinic for diabetic foot evaluation. Review of Systems Constitutional: Negative for activity change and appetite change. Respiratory: Negative for chest tightness and shortness of breath. Cardiovascular: Negative for chest pain and leg swelling. Musculoskeletal: Positive for arthralgias and gait problem. Skin: Negative for color change and wound. Neurological: Negative for weakness and numbness. Psychiatric/Behavioral: Negative for agitation and behavioral problems. Hematological: Does not bruise/bleed easily. Endocrine: Negative for cold intolerance and heat intolerance. Allergic/Immunologic: Negative for immunocompromised state. Past medical History Past Medical History: Diagnosis Date Abnormal CXR Bscam-4-qxsemktuicpwvbid deficiency 12/09/2023 Atypical mole Chronic obstructive pulmonary disease ([facility]) Cigarette nicotine dependence with nicotine-induced disorder 12/09/2023 Coronary artery disease ([facility]) Dental infection 12/09/2023 Diabetes type 2, controlled ([facility]) 09/30/2023 Diverticulitis 11/16/2023 Diverticulosis diverticulosis/diverticulitis Elevated alkaline phosphatase level 11/24/2023 Gastroesophageal reflux disease without esophagitis 09/16/2023 Generalized abdominal pain 08/31/2023 HTN (hypertension) ([facility]) Hypothyroidism ([facility]) Other specified hypothyroidism 09/16/2023 Pain, dental Perforated diverticulum 2017 perforated diverticuli Postmenopausal postcoital bleeding 12/09/2023 Seasonal allergic rhinitis due to pollen 12/09/2023 Stage 3a chronic kidney disease (CKD) ([facility]) 12/09/2023 STEMI (ST elevation myocardial infarction) ([facility]) ([facility]) Stress at home 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 11/16/2023 Medications Current Outpatient Medications: albuterol (2.5 MG/3ML) 0.083% nebulizer solution, Take 2.5 mg by nebulization in the morning and 2.5 mg at noon and 2.5 mg in the evening and 2.5 mg before bedtime., Disp: , Rfl: albuterol HFA 90 mcg/act inhaler, Inhale 2 puffs every 4 (four) hours if needed for wheezing, Disp: , Rfl: ASPIRIN 81 PO, Take 81 mg by mouth Daily, Disp: , Rfl: atorvastatin (Lipitor) 80 MG tablet, Take 1 tablet (80 mg) by mouth at bedtime, Disp: 30 tablet, Rfl: 2 budesonide-formoterol (Symbicort) 160-4.5 MCG/ACT inhaler, Inhale 2 puffs in the morning and 2 puffs before bedtime. Rinse mouth after use., Disp: 10.2 g, Rfl: 2 empagliflozin (Jardiance) 25 MG, Take 1 tablet (25 mg) by mouth Daily, Disp: 30 tablet, Rfl: 2 levothyroxine (Synthroid, Levoxyl) 125 MCG tablet, Take 1 tablet (125 mcg) by mouth in the morning. Take before meals., Disp: 30 tablet, Rfl: 2 lisinopril (Zestril) 30 MG tablet, Take 1 tablet (30 mg) by mouth Daily, Disp: 30 tablet, Rfl: 2 metoprolol tartrate (Lopressor) 25 MG tablet, Take 1 tablet (25 mg) by mouth in the morning and 1 tablet (25 mg) before bedtime., Disp: 60 tablet, Rfl: 2 montelukast (Singulair) 10 MG tablet, Take 1 tablet (10 mg) by mouth at bedtime, Disp: 30 tablet, Rfl: 2 nitroglycerin (Nitrostat) 0.4 MG SL tablet, Place 0.4 mg under the tongue every 5 (five) minutes if needed for chest pain (Patient not taking: Reported on 09/18/2024), Disp: , Rfl: pantoprazole (ProtoNix) 40 MG EC tablet, Take 1 tablet (40 mg) by mouth in the morning and 1 tablet (40 mg) before bedtime., Disp: 180 tablet, Rfl: 1 pioglitazone (Actos) 15 MG tablet, Take 1 tablet (15 mg) by mouth Daily, Disp: 30 tablet, Rfl: 2 Allergies Levaquin [levofloxacin] and Sulfa antibiotics Past Surgical History Past Surgical History: Procedure Laterality Date APPENDECTOMY CARDIAC SURGERY Left heart-ventricular puncture CHOLECYSTECTOMY lap choley COLONOSCOPY 2017 KNEE SURGERY Right arthroscopy ORIF FOOT FRACTURE Right ROTATOR CUFF REPAIR Right TOTAL ABDOMINAL HYSTERECTOMY WISDOM TOOTH EXTRACTION Family History Family History Problem Relation Name Age of Onset Cancer Mother Heart disease Mother Hypertension Mother Diabetes Mother Hypertension Father Heart disease Father Cancer Father Skin cancer Sister Objective Physical Exam Constitutional: General: She is not in acute distress. Comments: Unaccompanied. Cardiovascular: Comments: DP pulse: 1/4 PT pulse: 1/4 Skin temperature is warm to cool Edema: No significant edema bilaterally. Pulmonary: Effort: Pulmonary effort is normal. No respiratory distress. Musculoskeletal: Cervical back: Neck supple. No rigidity. Comments: Pedal deformities: Mild hammertoe contractures bilaterally. Skin: Capillary Refill: Capillary refill takes less than 2 seconds. Comments: Six toenails exhibit clinical mycosis with thickened appearance, yellow/brown discoloration, crumbly texture and subungual debris. All 10 toenails are elongated. Hyperkeratotic tissue: Left foot: None Right foot: None Skin is diffusely thin Hair growth: Scant Neurological: Mental Status: She is alert. Comments: Protective sensation intact at 8/10 pedal sites Vibratory sensation diminished at the 1st MTP bilaterally. Psychiatric: Mood and Affect: Mood normal. Behavior: Behavior normal. Assessment/Plan ICD-10-CM 1. Onychodystrophy L60.3 2. Onychomycosis B35.1 3. Diabetic polyneuropathy associated with type 2 diabetes mellitus (CMS/HCC) E11.42 Patient was examined and evaluated. Ten toenails were debrided in length and thickness today utilizing a nail nipper and electric bur internal grinder set up operator without incident. I have discussed the importance of daily foot examinations and tight blood sugar control. We will follow up in 3 months for at risk diabetic foot evaluation. This note was created with the assistance of a speech recognition program. While intending to generate a timely document that accurately reflects the content of the visit, no guarantee can be provided that every grammatical or spelling mistake has been or will be identified or corrected. Thank you for your understanding. Bao Noble DPM documented in this encounter [facility] 01-04-2025 History of Present illness Narrative Pt has dentist appt. Getting all top teeth pulled. Images from the original note were not included. Fausto Corrigan is a 64 y.o. female presents with chief complaint of No chief complaint on file. HPI: Here for recheck : insurance denied CT abd/pelvis: Dx: abd pain, hx of colorectal fistula, as well as vaginal bleeding. No rectal bleeding. Does get intermittent vaginal discharge, looks like bleeding No recurrent symptoms since I last saw her, but this can be random when it occurs. Appetite is ok, bowel movements normal, no blood no weight loss SUBJECTIVE: MEDICATIONS: Current Outpatient Medications Medication Instructions albuterol HFA 90 mcg/act inhaler 2 puffs, Every 4 hours PRN albuterol 2.5 mg, 4 times daily ASPIRIN 81 PO 81 mg, Daily atorvastatin (LIPITOR) 80 mg, Oral, Nightly budesonide-formoterol (Symbicort) 160-4.5 MCG/ACT inhaler 2 puffs, Inhalation, 2 times daily, Rinse mouth after use dicyclomine (BENTYL) 10 mg, Oral, 4 times daily PRN empagliflozin (JARDIANCE) 25 mg, Oral, Daily levothyroxine (SYNTHROID, LEVOXYL) 125 mcg, Oral, Daily before breakfast lisinopril 20 mg, Oral, Daily metoprolol tartrate (LOPRESSOR) 25 mg, Oral, 2 times daily montelukast (SINGULAIR) 10 mg, Oral, Nightly nitroglycerin (NITROSTAT) 0.4 mg, Every 5 min PRN pantoprazole (PROTONIX) 40 mg, Oral, 2 times daily pioglitazone (ACTOS) 15 mg, Oral, Daily ALLERGIES: Allergies Allergen Reactions Levaquin [Levofloxacin] Itching Sulfa Antibiotics REVIEW OF SYMPTOMS: Review of Systems Constitutional: Negative for appetite change, chills and fever. HENT: Negative for congestion, ear pain and sore throat. Eyes: Negative for pain, discharge, redness and visual disturbance. Respiratory: Negative for cough, shortness of breath and wheezing. Cardiovascular: Negative for chest pain, palpitations and leg swelling. Gastrointestinal: Negative for abdominal pain, blood in stool, constipation, diarrhea, nausea and vomiting. Genitourinary: Positive for flank pain and vaginal bleeding. Negative for difficulty urinating, dysuria and frequency. Musculoskeletal: Negative for arthralgias, back pain, joint swelling and myalgias. Skin: Negative for rash and wound. Neurological: Negative for dizziness, tremors, seizures, syncope and headaches. Psychiatric/Behavioral: Negative for behavioral problems, self-injury and suicidal ideas. The patient is not nervous/anxious. Hematological: Does not bruise/bleed easily. Endocrine: Negative for polydipsia, polyphagia and polyuria. Allergic/Immunologic: Negative for environmental allergies and food allergies. PAST MEDICAL HISTORY Past Medical History: Diagnosis Date Abnormal CXR Wemlj-9-tgufjkvbijkmmako deficiency 12/09/2023 Atypical mole Chronic obstructive pulmonary disease ([facility]) Cigarette nicotine dependence with nicotine-induced disorder 12/09/2023 Coronary artery disease ([facility]) Dental infection 12/09/2023 Diabetes type 2, controlled ([facility]) 09/30/2023 Diverticulitis 11/16/2023 Diverticulosis diverticulosis/diverticulitis Elevated alkaline phosphatase level 11/24/2023 Gastroesophageal reflux disease without esophagitis 09/16/2023 Generalized abdominal pain 08/31/2023 HTN (hypertension) ([facility]) Hypothyroidism ([facility]) Other specified hypothyroidism 09/16/2023 Pain, dental Perforated diverticulum 2016 perforated diverticuli Postmenopausal postcoital bleeding 12/09/2023 Seasonal allergic rhinitis due to pollen 12/09/2023 Stage 3a chronic kidney disease (CKD) ([facility]) 12/09/2023 STEMI (ST elevation myocardial infarction) ([facility]) ([facility]) Stress at home 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 11/16/2023 Past Surgical History: Procedure Laterality Date APPENDECTOMY CARDIAC SURGERY Left heart-ventricular puncture CHOLECYSTECTOMY lap choley COLONOSCOPY 2017 KNEE SURGERY Right arthroscopy ORIF FOOT FRACTURE Right ROTATOR CUFF REPAIR Right TOTAL ABDOMINAL HYSTERECTOMY WISDOM TOOTH EXTRACTION family history includes Cancer in her father and mother; Diabetes in her mother; Heart disease in her father and mother; Hypertension in her father and mother; Skin cancer in her sister. OBJECTIVE: Visit Vitals BP 160/80 (BP Location: Left arm, Patient Position: Sitting, BP Cuff Size: Adult long) Pulse 69 Temp 98.5 F (Temporal) Resp 18 Ht 5' 1.5 Wt 142 lb SpO2 93% BMI 26.40 kg/m Smoking Status Every Day BSA 1.67 m Physical Exam Vitals and nursing note reviewed. Constitutional: General: She is not in acute distress. Appearance: Normal appearance. HENT: Head: Normocephalic and atraumatic. Right Ear: External ear normal. Left Ear: External ear normal. Nose: Nose normal. Mouth/Throat: Mouth: Mucous membranes are moist. Eyes: Extraocular Movements: Extraocular movements intact. Conjunctiva/sclera: Conjunctivae normal. Cardiovascular: Rate and Rhythm: Normal rate and regular rhythm. Pulses: Normal pulses. Heart sounds: Murmur heard. Pulmonary: Effort: Pulmonary effort is normal. Breath sounds: Normal breath sounds. No wheezing or rhonchi. Abdominal: General: Bowel sounds are normal. There is no distension. Palpations: Abdomen is soft. There is no mass. Tenderness: There is no abdominal tenderness. Musculoskeletal: General: Normal range of motion. Cervical back: Normal range of motion and neck supple. Skin: General: Skin is warm and dry. Capillary Refill: Capillary refill takes 2 to 3 seconds. Findings: No rash. Neurological: General: No focal deficit present. Mental Status: She is alert and oriented to person, place, and time. Psychiatric: Mood and Affect: Mood normal. Behavior: Behavior normal. Thought Content: Thought content normal. Judgment: Judgment normal. ASSESSMENT AND PLAN: Follow up in about 3 months (around 04/05/2025) for Recheck. Problem List Items Addressed This Visit Other specified hypothyroidism Relevant Medications levothyroxine (Synthroid, Levoxyl) 125 MCG tablet Gastroesophageal reflux disease without esophagitis Recommendations: freq small meals, nothing to eat or drink at least 2 hours prior to bed, limit caffeine, alcohol, as well as spicy foods Meds to limit or avoid if possible: NSAIDS Elevate HOB if possible Current meds: anti spasmodic, pantoprazole Last appt we stopped her tagament and started anti spasmoidic Relevant Medications pantoprazole (ProtoNix) 40 MG EC tablet Chronic obstructive pulmonary disease (CMS/HCC) Relevant Medications budesonide-formoterol (Symbicort) 160-4.5 MCG/ACT inhaler HTN (hypertension) (CMS/HCC) Please check blood pressure daily and record DASH diet Limit caffeine Take medication as directed Contact office if chest pain, pressure, dizziness, shortness of breath, swelling legs Recommend slow position changes Current med: b karon and noah At last appt we increased dose on lisinopril Relevant Medications lisinopril 20 MG tablet metoprolol tartrate (Lopressor) 25 MG tablet Diabetes type 2, controlled ([facility]) Relevant Medications empagliflozin (Jardiance) 25 MG pioglitazone (Actos) 15 MG tablet Hyperlipidemia ([facility]) Relevant Medications atorvastatin (Lipitor) 80 MG tablet Colovaginal fistula - Primary Has not had fu on that, not sure if this is related to abd pain w vaginal bleeding At last appt we ordered a CT abd/pelvis with, to date has not been completed, pt states insurance declined We will send more information Also refer to JEWEL BEARING BROACHER Relevant Orders Ambulatory referral to Obstetrics / Gynecology Cigarette nicotine dependence with nicotine-induced disorder The patient has been advised of the risks of continued smoking: stroke, AL, all forms of cancer, lung disease, and . Options for quitting smoking include: cold turkey, hypnosis, acupuncture, nicotine replacement meds (gum, lozenges, and patches), Buproprion, and Varenicline. At this time pt is encouraged to evaluate their goals for wanting to quit smoking, and reach out to provider when ready to start this process Chronic kidney disease, stage 3a ([facility]) ([facility]) Check labs yearly and prn Control BP and DM On jardiance Seasonal allergic rhinitis due to pollen Relevant Medications montelukast (Singulair) 10 MG tablet Type 2 diabetes mellitus with diabetic chronic kidney disease ([facility]) Control sugar and bp, on farxiga Type 2 diabetes mellitus with diabetic polyneuropathy ([facility]) No medications for this Control blood sugars Associated Problem(s): Colovaginal fistula Has not had fu on that, not sure if this is related to abd pain w vaginal bleeding At last appt we ordered a CT abd/pelvis with, to date has not been completed, pt states insurance declined We will send more information Also refer to JEWEL BEARING BROACHER Associated Problem(s): Gastroesophageal reflux disease without esophagitis Recommendations: freq small meals, nothing to eat or drink at least 2 hours prior to bed, limit caffeine, alcohol, as well as spicy foods Meds to limit or avoid if possible: NSAIDS Elevate HOB if possible Current meds: anti spasmodic, pantoprazole Last appt we stopped her tagament and started anti spasmoidic Associated Problem(s): Type 2 diabetes mellitus with diabetic chronic kidney disease ([facility]) Control sugar and bp, on farxiga Associated Problem(s): Chronic kidney disease, stage 3a (HCC) ([facility]) Check labs yearly and prn Control BP and DM On jardiance Associated Problem(s): HTN (hypertension) ([facility]) Please check blood pressure daily and record DASH diet Limit caffeine Take medication as directed Contact office if chest pain, pressure, dizziness, shortness of breath, swelling legs Recommend slow position changes Current med: b karon and noah At last appt we increased dose on lisinopril Associated Problem(s): Type 2 diabetes mellitus with diabetic polyneuropathy ([facility]) No medications for this Control blood sugars Associated Problem(s): Cigarette nicotine dependence with nicotine-induced disorder The patient has been advised of the risks of continued smoking: stroke, AL, all forms of cancer, lung disease, and . Options for quitting smoking include: cold turkey, hypnosis, acupuncture, nicotine replacement meds (gum, lozenges, and patches), Buproprion, and Varenicline. At this time pt is encouraged to evaluate their goals for wanting to quit smoking, and reach out to provider when ready to start this process documented in this encounter [facility] 01-04-2025 Instructions Veronique Harris NP - 01/04/2025 3:00 PM EDT Refer to JEWEL BEARING BROACHER, Veronique Montez in [place] documented in this encounter [facility] 01-01-2025 Telephone encounter Note Patient called stating that she got a letter saying her insurance is denying her MRI, and she wanted to let you know. DEVONTE [facility] 01-01-2025 Miscellaneous Notes Patient called stating that she got a letter saying her insurance is denying her MRI, and she wanted to let you know. DEVONET documented in this encounter [facility] 11-07-2024 Telephone encounter Note Pt called asking for a medication she took for bloating and cramping its a small pretty blue pill she use to get it from [facility]. She does not recall the name dose or anything else but she thinks this could help with the issue she currently has. [facility] 11-07-2024 Miscellaneous Notes Pt called asking for a medication she took for bloating and cramping its a small pretty blue pill she use to get it from [facility]. She does not recall the name dose or anything else but she thinks this could help with the issue she currently has. documented in this encounter [facility] 11-06-2024 History of Present illness Narrative Associated Problem(s): 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 The patient has been advised of the risks of continued smoking: stroke, AL, all forms of cancer, lung disease, and . Options for quitting smoking include: cold turkey, hypnosis, acupuncture, nicotine replacement meds (gum, lozenges, and patches), Buproprion, and Varenicline. At this time pt is encouraged to evaluate their goals for wanting to quit smoking, and reach out to provider when ready to start this process Associated Problem(s): UTI symptoms Hx of UTI, urine dip no acute UTI findings, however sxs suggestive of this Will start atb, send for culture, change if needed Pt states she was visiting/ sitting with a family/friend who had the flu. She was with them for 3 weeks however she started a few days ago with random sharp pain in her lower abdomin. Pt states that her urine has a foul smell in the morning. Urine is usually tea color-dark yellow and has increased in frequency. Pt states she there is no blood when wiping, no issues with stream Pt usually drinks 2 glasses of tea, 1 pop, 1 glass of water. Pt is having oral surgery on 11/15 for removal of her top teeth that are broken Images from the original note were not included. Fausto Corrigan is a 64 y.o. female presents with chief complaint of No chief complaint on file. HPI: Pt states she was visiting/ sitting with a family/friend who had the flu. She was with them for 3 weeks however she started a few days ago with random sharp pain in her lower abdomin. Pt states that her urine has a foul smell in the morning. Urine is usually tea color-dark yellow and has increased in frequency. Pt states she there is no blood when wiping, no issues with stream Pt usually drinks 2 glasses of tea, 1 pop, 1 glass of water. Pt UTI This is a new problem. The current episode started 1 to 4 weeks ago. The problem has been waxing and waning since onset. Associated symptoms include pain. Pertinent negatives include no hematuria. The pain is present in the suprapubic region. Risk factors include diabetes. SUBJECTIVE: MEDICATIONS: Current Outpatient Medications Medication Instructions albuterol HFA 90 mcg/act inhaler 2 puffs, Every 4 hours PRN albuterol 2.5 mg, 4 times daily amoxicillin-clavulanate (Augmentin) 875-125 MG tablet 875 mg, Oral, 2 times daily, Take w food ASPIRIN 81 PO 81 mg, Daily atorvastatin (LIPITOR) 80 mg, Oral, Nightly budesonide-formoterol (Symbicort) 160-4.5 MCG/ACT inhaler 2 puffs, Inhalation, 2 times daily, Rinse mouth with water after use to reduce aftertaste and incidence of candidiasis. Do not swallow. cimetidine (TAGAMET) 200 mg, Oral, Every 12 hours PRN empagliflozin (JARDIANCE) 25 mg, Oral, Daily levothyroxine (SYNTHROID, LEVOXYL) 125 mcg, Oral, Daily before breakfast lisinopril 10 mg, Oral, Daily metoprolol tartrate (LOPRESSOR) 25 mg, Oral, 2 times daily montelukast (SINGULAIR) 10 mg, Oral, Nightly nitroglycerin (NITROSTAT) 0.4 mg, Every 5 min PRN pantoprazole (PROTONIX) 40 mg, Oral, 2 times daily pioglitazone (ACTOS) 15 mg, Oral, Daily ALLERGIES: Allergies Allergen Reactions Levaquin [Levofloxacin] Itching Sulfa Antibiotics REVIEW OF SYMPTOMS: Review of Systems Constitutional: Negative for appetite change, chills and fever. HENT: Negative for congestion, ear pain and sore throat. Eyes: Negative for pain, discharge, redness and visual disturbance. Respiratory: Negative for cough, shortness of breath and wheezing. Cardiovascular: Negative for chest pain, palpitations and leg swelling. Gastrointestinal: Negative for abdominal pain, blood in stool, constipation, diarrhea, nausea and vomiting. Genitourinary: Positive for dysuria. Negative for difficulty urinating, frequency and hematuria. Musculoskeletal: Negative for arthralgias, back pain, joint swelling and myalgias. Skin: Negative for rash and wound. Neurological: Negative for dizziness, tremors, seizures, syncope and headaches. Psychiatric/Behavioral: Negative for behavioral problems, self-injury and suicidal ideas. The patient is not nervous/anxious. Hematological: Does not bruise/bleed easily. Endocrine: Negative for polydipsia, polyphagia and polyuria. Allergic/Immunologic: Negative for environmental allergies and food allergies. PAST MEDICAL HISTORY Past Medical History: Diagnosis Date Abnormal CXR Tjfcm-[id number]-qaoaiilwnrpsbtlj deficiency 12/09/2023 Atypical mole Chronic obstructive pulmonary disease ([facility]) Cigarette nicotine dependence with nicotine-induced disorder 12/09/2023 Coronary artery disease ([facility]) Dental infection 12/09/2023 Diabetes type 2, controlled ([facility]) 09/30/2023 Diverticulitis 11/16/2023 Diverticulosis diverticulosis/diverticulitis Elevated alkaline phosphatase level 11/24/2023 Gastroesophageal reflux disease without esophagitis 09/16/2023 Generalized abdominal pain 08/31/2023 HTN (hypertension) ([facility]) Hypothyroidism ([facility]) Other specified hypothyroidism ([facility]) 09/16/2023 Pain, dental Perforated diverticulum 2016 perforated diverticuli Postmenopausal postcoital bleeding 12/09/2023 Seasonal allergic rhinitis due to pollen 12/09/2023 Stage 3a chronic kidney disease (CKD) ([facility]) 12/09/2023 STEMI (ST elevation myocardial infarction) ([facility]) ([facility]) Stress at home 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 11/16/2023 Past Surgical History: Procedure Laterality Date APPENDECTOMY CARDIAC SURGERY Left heart-ventricular puncture CHOLECYSTECTOMY lap choley COLONOSCOPY 2017 KNEE SURGERY Right arthroscopy ORIF FOOT FRACTURE Right ROTATOR CUFF REPAIR Right TOTAL ABDOMINAL HYSTERECTOMY WISDOM TOOTH EXTRACTION family history includes Cancer in her father and mother; Diabetes in her mother; Heart disease in her father and mother; Hypertension in her father and mother; Skin cancer in her sister. OBJECTIVE: Visit Vitals BP 128/80 (BP Location: Left arm, Patient Position: Sitting, BP Cuff Size: Adult long) Pulse 58 Temp 98.8 F (Temporal) Resp 18 Wt 138 lb 12.8 oz SpO2 94% BMI 25.80 kg/m Smoking Status Every Day BSA 1.65 m Physical Exam Vitals and nursing note reviewed. Constitutional: General: She is not in acute distress. Appearance: Normal appearance. HENT: Head: Normocephalic and atraumatic. Right Ear: External ear normal. Left Ear: External ear normal. Nose: Nose normal. Mouth/Throat: Mouth: Mucous membranes are moist. Eyes: Extraocular Movements: Extraocular movements intact. Conjunctiva/sclera: Conjunctivae normal. Cardiovascular: Rate and Rhythm: Normal rate and regular rhythm. Pulses: Normal pulses. Heart sounds: Normal heart sounds. Pulmonary: Effort: Pulmonary effort is normal. Breath sounds: Normal breath sounds. No wheezing. Abdominal: General: Bowel sounds are normal. There is no distension. Palpations: Abdomen is soft. There is no mass. Tenderness: There is no abdominal tenderness (mild suprapubic tenderness). There is no right CVA tenderness or left CVA tenderness. Musculoskeletal: General: Normal range of motion. Cervical back: Normal range of motion and neck supple. Right lower leg: No edema. Left lower leg: No edema. Skin: General: Skin is warm and dry. Capillary Refill: Capillary refill takes 2 to 3 seconds. Findings: No rash. Neurological: General: No focal deficit present. Mental Status: She is alert and oriented to person, place, and time. Psychiatric: Mood and Affect: Mood normal. Behavior: Behavior normal. Thought Content: Thought content normal. Judgment: Judgment normal. ASSESSMENT AND PLAN: No follow-ups on file. Problem List Items Addressed This Visit 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 The patient has been advised of the risks of continued smoking: stroke, AL, all forms of cancer, lung disease, and . Options for quitting smoking include: cold turkey, hypnosis, acupuncture, nicotine replacement meds (gum, lozenges, and patches), Buproprion, and Varenicline. At this time pt is encouraged to evaluate their goals for wanting to quit smoking, and reach out to provider when ready to start this process UTI symptoms - Primary Hx of UTI, urine dip no acute UTI findings, however sxs suggestive of this Will start atb, send for culture, change if needed Relevant Medications amoxicillin-clavulanate (Augmentin) 875-125 MG tablet Other Relevant Orders POCT Urinalysis dipstick (Completed) URINARY TRACT INFECTION (HTRX) documented in this encounter [facility] 09-18-2024 History of Present illness Narrative Images from the original note were not included. Subjective Patient ID: Fausto Corrigan is a 64 y.o. 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 Bothersome for about a month, denies drainage. PCP: Veronique Stratton LV 08/16/24, A1C: 6.0, BS: doesn't check). HPI This is a new patient who presents to clinic with concern of left big toe pain. Patient states that she has an ingrown toenail along the medial border. No drainage or cellulitis. Patient currently active smoker. She is a vgv-mupinaq-iqatvjasm diabetic. She states her most recent hemoglobin A1c about 4-5 months ago was 6 percent per the patient. Review of Systems Constitutional: Negative for activity change and appetite change. Respiratory: Negative for chest tightness and shortness of breath. Cardiovascular: Negative for chest pain and leg swelling. Musculoskeletal: Positive for arthralgias and gait problem. Skin: Negative for color change and wound. Neurological: Negative for weakness and numbness. Psychiatric/Behavioral: Negative for agitation and behavioral problems. Hematological: Does not bruise/bleed easily. Endocrine: Negative for cold intolerance and heat intolerance. Allergic/Immunologic: Negative for immunocompromised state. Past medical History Past Medical History: Diagnosis Date Abnormal CXR Wtmfl-7-xkiqvjfrfzlphuop deficiency 12/09/2023 Atypical mole Chronic obstructive pulmonary disease ([facility]) Cigarette nicotine dependence with nicotine-induced disorder 12/09/2023 Coronary artery disease ([facility]) Dental infection 12/09/2023 Diabetes type 2, controlled ([facility]) 09/30/2023 Diverticulitis 11/16/2023 Diverticulosis diverticulosis/diverticulitis Elevated alkaline phosphatase level 11/24/2023 Gastroesophageal reflux disease without esophagitis 09/16/2023 Generalized abdominal pain 08/31/2023 HTN (hypertension) ([facility]) Hypothyroidism ([facility]) Other specified hypothyroidism ([facility]) 09/16/2023 Pain, dental Perforated diverticulum 2017 perforated diverticuli Postmenopausal postcoital bleeding 12/09/2023 Seasonal allergic rhinitis due to pollen 12/09/2023 Stage 3a chronic kidney disease (CKD) ([facility]) 12/09/2023 STEMI (ST elevation myocardial infarction) ([facility]) ([facility]) Stress at home 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 11/16/2023 Medications Current Outpatient Medications: albuterol (2.5 MG/3ML) 0.083% nebulizer solution, Take 2.5 mg by nebulization in the morning and 2.5 mg at noon and 2.5 mg in the evening and 2.5 mg before bedtime., Disp: , Rfl: albuterol HFA 90 mcg/act inhaler, Inhale 2 puffs every 4 (four) hours if needed for wheezing, Disp: , Rfl: ASPIRIN 81 PO, Take 81 mg by mouth Daily, Disp: , Rfl: atorvastatin (Lipitor) 80 MG tablet, Take 1 tablet (80 mg) by mouth at bedtime, Disp: 30 tablet, Rfl: 2 budesonide-formoterol (Symbicort) 160-4.5 MCG/ACT inhaler, Inhale 2 puffs in the morning and 2 puffs before bedtime. Rinse mouth with water after use to reduce aftertaste and incidence of candidiasis. Do not swallow.., Disp: 1 each, Rfl: 2 cimetidine (Tagamet) 200 MG tablet, Take 1 tablet (200 mg) by mouth every 12 (twelve) hours if needed (acid reflux), Disp: 60 tablet, Rfl: 2 empagliflozin (Jardiance) 25 MG, Take 1 tablet (25 mg) by mouth Daily, Disp: 30 tablet, Rfl: 2 levothyroxine (Synthroid, Levoxyl) 125 MCG tablet, Take 1 tablet (125 mcg) by mouth in the morning. Take before meals., Disp: 30 tablet, Rfl: 2 lisinopril 10 MG tablet, Take 1 tablet (10 mg) by mouth Daily, Disp: 30 tablet, Rfl: 2 metoprolol tartrate (Lopressor) 25 MG tablet, Take 1 tablet (25 mg) by mouth in the morning and 1 tablet (25 mg) before bedtime., Disp: 60 tablet, Rfl: 2 montelukast (Singulair) 10 MG tablet, Take 1 tablet (10 mg) by mouth at bedtime, Disp: 30 tablet, Rfl: 2 pantoprazole (ProtoNix) 40 MG EC tablet, Take 1 tablet (40 mg) by mouth in the morning. Take before meals., Disp: 30 tablet, Rfl: 3 nitroglycerin (Nitrostat) 0.4 MG SL tablet, Place 0.4 mg under the tongue every 5 (five) minutes if needed for chest pain (Patient not taking: Reported on 09/18/2024), Disp: , Rfl: pioglitazone (Actos) 15 MG tablet, Take 1 tablet (15 mg) by mouth Daily (Patient not taking: Reported on 09/18/2024), Disp: 30 tablet, Rfl: 2 tiZANidine (Zanaflex) 4 MG tablet, Take 1 tablet (4 mg) by mouth every 12 (twelve) hours if needed for muscle spasms for up to 10 days (Patient not taking: Reported on 09/18/2024), Disp: 20 tablet, Rfl: 0 Allergies Levaquin [levofloxacin] and Sulfa antibiotics Past Surgical History Past Surgical History: Procedure Laterality Date APPENDECTOMY CARDIAC SURGERY Left heart-ventricular puncture CHOLECYSTECTOMY lap choley COLONOSCOPY 2017 KNEE SURGERY Right arthroscopy ORIF FOOT FRACTURE Right ROTATOR CUFF REPAIR Right TOTAL ABDOMINAL HYSTERECTOMY WISDOM TOOTH EXTRACTION Family History Family History Problem Relation Name Age of Onset Cancer Mother Heart disease Mother Hypertension Mother Diabetes Mother Hypertension Father Heart disease Father Cancer Father Skin cancer Sister Objective Physical Exam Constitutional: General: She is not in acute distress. Comments: Accompanied by her niece. Smells of cigarette smoke. Cardiovascular: Comments: DP pulse: 1/4 PT pulse: 1/4 Skin temperature is warm to cool Edema: No significant edema bilaterally. Pulmonary: Effort: Pulmonary effort is normal. No respiratory distress. Musculoskeletal: Cervical back: Neck supple. No rigidity. Comments: Pedal deformities: Mild hammertoe contractures bilaterally. Skin: Capillary Refill: Capillary refill takes less than 2 seconds. Comments: All 5 toenails of the left foot exhibit clinical mycosis with thickened appearance, yellow/brown discoloration, crumbly texture and subungual debris. There is widening and incurvation with impingement along the medial border of the hallux which is tender to palpation. No drainage or cellulitis. Hyperkeratotic tissue: Left foot: None Right foot: None Skin is diffusely thin Hair growth: Scant Neurological: Mental Status: She is alert. Comments: Protective sensation intact at 8/10 pedal sites Vibratory sensation diminished at the 1st MTP bilaterally. Psychiatric: Mood and Affect: Mood normal. Behavior: Behavior normal. Assessment/Plan ICD-10-CM 1. Onychodystrophy L60.3 2. Ingrown toenail L60.0 3. Onychomycosis B35.1 4. Diabetic polyneuropathy associated with type 2 diabetes mellitus (CMS/HCC) E11.42 5. Left foot pain M79.672 Patient was examined and evaluated. 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 I was able to successfully decompressed the medial border of the left hallux to alleviate patient's symptomatology. I have discussed the importance of daily foot examinations and tight blood sugar control. We will follow up in 3 months for at risk diabetic foot evaluation. This note was created with the assistance of a speech recognition program. While intending to generate a timely document that accurately reflects the content of the visit, no guarantee can be provided that every grammatical or spelling mistake has been or will be identified or corrected. Thank you for your understanding. Bao Noble DPM documented in this encounter [facility] 08-16-2024 History of Present illness Narrative Associated Problem(s): Acute bilateral low back pain without sciatica Overall is feeling better No further interventions Associated Problem(s): 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 The patient has been advised of the risks of continued smoking: stroke, AL, all forms of cancer, lung disease, and . Options for quitting smoking include: cold turkey, hypnosis, acupuncture, nicotine replacement meds (gum, lozenges, and patches), Buproprion, and Varenicline. At this time pt is encouraged to evaluate their goals for wanting to quit smoking, and reach out to provider when ready to start this process Associated Problem(s): Screening for lung cancer Patient meets requirements for low dose CT [...] . Does NOT want lung cancer screening Images from the original note were not included. Fausto Corrigan is a 64 y.o. female presents with chief complaint of No chief complaint on file. HPI: Emphysema: was under the care of dr alvarado, has not seen him around 09/18. Abnormal low dose CT scan. Was supposed to have a PET scan, never worked out with her insurance. +tobacco user: 35 years , less than 1/2 ppd, +cough mucus varies, no hemoptysis, no fever, chills or night sweats, no family hx of lung cancer, no unintentional weight loss. No dyspnea, no wheezing either. SUBJECTIVE: MEDICATIONS: Current Outpatient Medications Medication Instructions albuterol HFA 90 mcg/act inhaler 2 puffs, Every 4 hours PRN albuterol 2.5 mg, 4 times daily ASPIRIN 81 PO 81 mg, Daily atorvastatin (LIPITOR) 80 mg, Oral, Nightly budesonide-formoterol (Symbicort) 160-4.5 MCG/ACT inhaler 2 puffs, Inhalation, 2 times daily, Rinse mouth with water after use to reduce aftertaste and incidence of candidiasis. Do not swallow. cimetidine (TAGAMET) 200 mg, Oral, Every 12 hours PRN empagliflozin (JARDIANCE) 25 mg, Oral, Daily levothyroxine (SYNTHROID, LEVOXYL) 125 mcg, Oral, Daily before breakfast lisinopril 10 mg, Oral, Daily metoprolol tartrate (LOPRESSOR) 25 mg, Oral, 2 times daily montelukast (SINGULAIR) 10 mg, Oral, Nightly nitroglycerin (NITROSTAT) 0.4 mg, Every 5 min PRN pantoprazole (PROTONIX) 40 mg, Oral, Daily before breakfast pioglitazone (ACTOS) 15 mg, Oral, Daily tiZANidine (ZANAFLEX) 4 mg, Oral, Every 12 hours PRN ALLERGIES: Allergies Allergen Reactions Levaquin [Levofloxacin] Itching Sulfa Antibiotics REVIEW OF SYMPTOMS: Review of Systems Constitutional: Negative for appetite change, chills and fever. HENT: Negative for congestion, ear pain and sore throat. Eyes: Negative for pain, discharge, redness and visual disturbance. Respiratory: Positive for cough. Negative for shortness of breath and wheezing. Cardiovascular: Negative for chest pain, palpitations and leg swelling. Gastrointestinal: Negative for abdominal pain, blood in stool, constipation, diarrhea, nausea and vomiting. Genitourinary: Negative for difficulty urinating, dysuria and frequency. Musculoskeletal: Positive for back pain. Negative for arthralgias, joint swelling and myalgias. Skin: Negative for rash and wound. Neurological: Negative for dizziness, tremors, seizures, syncope and headaches. Psychiatric/Behavioral: Negative for behavioral problems, self-injury and suicidal ideas. The patient is not nervous/anxious. Hematological: Does not bruise/bleed easily. Endocrine: Negative for polydipsia, polyphagia and polyuria. Allergic/Immunologic: Negative for environmental allergies and food allergies. PAST MEDICAL HISTORY Past Medical History: Diagnosis Date Abnormal CXR Ansme-3-jvopwzlscpexzzhp deficiency 12/09/2023 Atypical mole Chronic obstructive pulmonary disease ([facility]) Cigarette nicotine dependence with nicotine-induced disorder 12/09/2023 Coronary artery disease ([facility]) Dental infection 12/09/2023 Diabetes type 2, controlled ([facility]) 09/30/2023 Diverticulitis 11/16/2023 Diverticulosis diverticulosis/diverticulitis Elevated alkaline phosphatase level 11/24/2023 Gastroesophageal reflux disease without esophagitis 09/16/2023 Generalized abdominal pain 08/31/2023 HTN (hypertension) ([facility]) Hypothyroidism ([facility]) Other specified hypothyroidism ([facility]) 09/16/2023 Pain, dental Perforated diverticulum 2017 perforated diverticuli Postmenopausal postcoital bleeding 12/09/2023 Seasonal allergic rhinitis due to pollen 12/09/2023 Stage 3a chronic kidney disease (CKD) (CMS/HCC) 12/09/2023 STEMI (ST elevation myocardial infarction) (HCC) ([facility]) Stress at home 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 11/16/2023 Past Surgical History: Procedure Laterality Date APPENDECTOMY CARDIAC SURGERY Left heart-ventricular puncture CHOLECYSTECTOMY lap choley COLONOSCOPY 2017 KNEE SURGERY Right arthroscopy ORIF FOOT FRACTURE Right ROTATOR CUFF REPAIR Right TOTAL ABDOMINAL HYSTERECTOMY WISDOM TOOTH EXTRACTION family history includes Cancer in her father and mother; Diabetes in her mother; Heart disease in her father and mother; Hypertension in her father and mother; Skin cancer in her sister. OBJECTIVE: Visit Vitals BP 164/82 (BP Location: Left arm, Patient Position: Sitting, BP Cuff Size: Adult long) Pulse 64 Temp 98.5 F (Temporal) Resp 20 Ht 5' 1.5 Wt 143 lb 3.2 oz SpO2 94% BMI 26.62 kg/m Smoking Status Every Day BSA 1.68 m Physical Exam Vitals and nursing note reviewed. Constitutional: General: She is not in acute distress. Appearance: Normal appearance. HENT: Head: Normocephalic and atraumatic. Right Ear: External ear normal. Left Ear: External ear normal. Nose: Nose normal. Mouth/Throat: Mouth: Mucous membranes are moist. Eyes: Extraocular Movements: Extraocular movements intact. Conjunctiva/sclera: Conjunctivae normal. Cardiovascular: Rate and Rhythm: Normal rate and regular rhythm. Pulses: Normal pulses. Heart sounds: Normal heart sounds. Pulmonary: Effort: Pulmonary effort is normal. No respiratory distress. Breath sounds: Normal breath sounds. No wheezing or rales. Abdominal: General: Bowel sounds are normal. There is no distension. Palpations: Abdomen is soft. There is no mass. Tenderness: There is no abdominal tenderness. Musculoskeletal: General: Tenderness present. Cervical back: Normal range of motion and neck supple. Right lower leg: No edema. Left lower leg: No edema. Skin: General: Skin is warm and dry. Capillary Refill: Capillary refill takes 2 to 3 seconds. Findings: No rash. Neurological: General: No focal deficit present. Mental Status: She is alert and oriented to person, place, and time. Psychiatric: Mood and Affect: Mood normal. Behavior: Behavior normal. Thought Content: Thought content normal. Judgment: Judgment normal. ASSESSMENT AND PLAN: No follow-ups on file. Problem List Items Addressed This Visit HTN (hypertension) ([facility]) Please check blood pressure daily and record DASH diet Limit caffeine Take medication as directed Contact office if chest pain, pressure, dizziness, shortness of breath, swelling legs Recommend slow position changes 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 The patient has been advised of the risks of continued smoking: stroke, AL, all forms of cancer, lung disease, and . Options for quitting smoking include: cold turkey, hypnosis, acupuncture, nicotine replacement meds (gum, lozenges, and patches), Buproprion, and Varenicline. At this time pt is encouraged to evaluate their goals for wanting to quit smoking, and reach out to provider when ready to start this process Cigarette nicotine dependence with nicotine-induced disorder - Primary The patient has been advised of the risks of continued smoking: stroke, AL, all forms of cancer, lung disease, and . Options for quitting smoking include: cold turkey, hypnosis, acupuncture, nicotine replacement meds (gum, lozenges, and patches), Buproprion, and Varenicline. At this time pt is encouraged to evaluate their goals for wanting to quit smoking, and reach out to provider when ready to start this process Abdominal aortic pulsation Ordered vascular US at last appt, not completed as of today's date Acute bilateral low back pain without sciatica Overall is feeling better No further interventions Screening for lung cancer Patient meets requirements for low dose CT [...] . Does NOT want lung cancer screening Associated Problem(s): Abdominal aortic pulsation Ordered vascular US at last appt, not completed as of today's date Associated Problem(s): HTN (hypertension) (CMS/HCC) Please check blood pressure daily and record DASH diet Limit caffeine Take medication as directed Contact office if chest pain, pressure, dizziness, shortness of breath, swelling legs Recommend slow position changes Has been out of blood pressure meds for 3 days, just picked them up today Associated Problem(s): Cigarette nicotine dependence with nicotine-induced disorder The patient has been advised of the risks of continued smoking: stroke, AL, all forms of cancer, lung disease, and . Options for quitting smoking include: cold turkey, hypnosis, acupuncture, nicotine replacement meds (gum, lozenges, and patches), Buproprion, and Varenicline. At this time pt is encouraged to evaluate their goals for wanting to quit smoking, and reach out to provider when ready to start this process documented in this encounter [facility] 08-16-2024 Instructions Veronique Harris NP - 08/16/2024 5:00 PM EST Restart blood pressures US abd at [facility], if they dont call you in the next 3 days, then call them to schedule : [phone], ext [phone] Get labs done documented in this encounter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 without esophagitis Esophageal reflux Other specified hypothyroidism ([facility]) Primary hypertension ([facility]) Unspecified essential hypertension Seasonal allergic rhinitis due to pollen Controlled type 2 diabetes mellitus without complication, without long-term current use of insulin ([facility])- Primary Type 2 diabetes mellitus with diabetic chronic kidney disease ([facility]) Chronic kidney disease, stage 2 (mild) Vieba-4-ihrurhcnpdu deficiency ([facility]) Pdtva-9-llvfbanozvi deficiency Mixed hyperlipidemia ([facility]) Mixed hyperlipidemia Chronic obstructive pulmonary disease, unspecified COPD type ([facility]) Gastroesophageal reflux disease without esophagitis Esophageal reflux Other specified hypothyroidism ([facility]) Primary hypertension ([facility]) Unspecified essential hypertension Seasonal allergic rhinitis due to pollen 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 Tobacco use disorder Coronary artery disease involving [place] coronary artery of [place] heart without angina pectoris ([facility]) Abdominal aortic pulsation Acute bilateral low back pain without sciatica documented in this encounter [facility] HealthcareEvaluation note* Diagnosis Controlled type 2 diabetes mellitus without complication, without long-term current use of insulin ([facility])- Primary Type 2 diabetes mellitus with diabetic chronic kidney disease ([facility]) Chronic kidney disease, stage 3a (HCC) ([facility]) Chronic obstructive pulmonary disease, unspecified ([facility]) Qdjgh-4-pnbdrhfhvex deficiency ([facility]) Kzjoj-2-vxiqzmchvgn deficiency Centrilobular emphysema ([facility]) Primary hypertension ([facility]) Unspecified essential hypertension Coronary artery disease involving [place] coronary artery of [place] heart without angina pectoris ([facility]) Gastroesophageal reflux disease without esophagitis Esophageal reflux Niguf-8-qaqozkroziapriic deficiency Microscopic hematuria Current smoker Elevated alkaline phosphatase level Hx of colonoscopy with polypectomy Controlled type 2 diabetes mellitus without complication, without long-term current use of insulin ([facility])- Primary UTI symptoms Acute cystitis without hematuria Vaginal bleeding Other specified noninflammatory disorder of vagina Vaginal discharge Leukorrhea, not specified as infective Mixed hyperlipidemia ([facility]) Mixed hyperlipidemia Chronic obstructive pulmonary disease, unspecified COPD type ([facility]) Gastroesophageal reflux disease without esophagitis Esophageal reflux Other specified hypothyroidism (CMS/HCC) Primary hypertension ([facility]/HCC) Unspecified essential hypertension Seasonal allergic rhinitis due to pollen Controlled type 2 diabetes mellitus without complication, without long-term current use of insulin ([facility])- Primary Type 2 diabetes mellitus with diabetic chronic kidney disease ([facility]/HCC) Chronic kidney disease, stage 2 (mild) Xnnms-7-lklpixmkwyy deficiency ([facility]/HCC) Wesut-2-rxvenooogrm deficiency Mixed hyperlipidemia ([facility]/HCC) Mixed hyperlipidemia Chronic obstructive pulmonary disease, unspecified COPD type ([facility]/HCC) Gastroesophageal reflux disease without esophagitis Esophageal reflux Other specified hypothyroidism (CMS/HCC) Primary hypertension ([facility]/HCC) Unspecified essential hypertension Seasonal allergic rhinitis due to pollen 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 Tobacco use disorder Coronary artery disease involving [place] coronary artery of [place] heart without angina pectoris ([facility]) Abdominal aortic pulsation Acute bilateral low back pain without sciatica Abdominal aortic pulsation- Primary documented in this encounter [facility] HealthcareEvaluation note* Diagnosis Controlled type 2 diabetes mellitus without complication, without long-term current use of insulin ([facility])- Primary Type 2 diabetes mellitus with diabetic chronic kidney disease ([facility]/HCC) Chronic kidney disease, stage 3a (HCC) ([facility]) Chronic obstructive pulmonary disease, unspecified ([facility]/HCC) Oprnz-2-tsvqlpfwxnz deficiency ([facility]/HCC) Yksrq-2-pqvurkqbdqq deficiency Centrilobular emphysema ([facility]) Primary hypertension ([facility]) Unspecified essential hypertension Coronary artery disease involving [place] coronary artery of [place] heart without angina pectoris ([facility]) Gastroesophageal reflux disease without esophagitis Esophageal reflux Waenw-2-xrglzfihrfffjyfr deficiency Microscopic hematuria Current smoker Elevated alkaline phosphatase level Hx of colonoscopy with polypectomy Controlled type 2 diabetes mellitus without complication, without long-term current use of insulin ([facility])- Primary UTI symptoms Acute cystitis without hematuria Vaginal bleeding Other specified noninflammatory disorder of vagina Vaginal discharge Leukorrhea, not specified as infective Mixed hyperlipidemia ([facility]/HCC) Mixed hyperlipidemia Chronic obstructive pulmonary disease, unspecified COPD type ([facility]/HCC) Gastroesophageal reflux disease without esophagitis Esophageal reflux Other specified hypothyroidism ([facility]/HCC) Primary hypertension ([facility]/HCC) Unspecified essential hypertension Seasonal allergic rhinitis due to pollen Controlled type 2 diabetes mellitus without complication, without long-term current use of insulin ([facility])- Primary Type 2 diabetes mellitus with diabetic chronic kidney disease (CMS/HCC) Chronic kidney disease, stage 2 (mild) Tfrbp-2-czzpnipbpnj deficiency ([facility]/HCC) Grrex-5-hyggkkgjpwd deficiency Mixed hyperlipidemia ([facility]/HCC) Mixed hyperlipidemia Chronic obstructive pulmonary disease, unspecified COPD type ([facility]/HCC) Gastroesophageal reflux disease without esophagitis Esophageal reflux Other specified hypothyroidism (CMS/HCC) Primary hypertension ([facility]/HCC) Unspecified essential hypertension Seasonal allergic rhinitis due to pollen 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 Tobacco use disorder Coronary artery disease involving [place] coronary artery of [place] heart without angina pectoris (CMS/HCC) Abdominal aortic pulsation Acute bilateral low back pain without sciatica Acute bilateral low back pain without sciatica- Primary Cigarette nicotine dependence with nicotine-induced disorder Primary hypertension ([facility]/HCC) Unspecified essential hypertension Abdominal aortic pulsation Screening for lung cancer 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 Tobacco use disorder documented in this encounter [facility] HealthcareEvaluation note* Diagnosis Controlled type 2 diabetes mellitus without complication, without long-term current use of insulin ([facility])- Primary Type 2 diabetes mellitus with diabetic chronic kidney disease ([facility]/HCC) Chronic kidney disease, stage 3a (HCC) ([facility]/HCC) Chronic obstructive pulmonary disease, unspecified ([facility]/HCC) Xuykn-3-wafnkrksqag deficiency ([facility]/HCC) Nxzlz-2-lqcmkhvfvze deficiency Centrilobular emphysema ([facility]/HCC) Primary hypertension ([facility]) Unspecified essential hypertension Coronary artery disease involving [place] coronary artery of [place] heart without angina pectoris ([facility]/HCC) Gastroesophageal reflux disease without esophagitis Esophageal reflux Tpgqp-2-qoltsqoaswvmvzsk deficiency Microscopic hematuria Current smoker Elevated alkaline phosphatase level Hx of colonoscopy with polypectomy Controlled type 2 diabetes mellitus without complication, without long-term current use of insulin ([facility])- Primary UTI symptoms Acute cystitis without hematuria Vaginal bleeding Other specified noninflammatory disorder of vagina Vaginal discharge Leukorrhea, not specified as infective Mixed hyperlipidemia ([facility]/HCC) Mixed hyperlipidemia Chronic obstructive pulmonary disease, unspecified COPD type ([facility]/HCC) Gastroesophageal reflux disease without esophagitis Esophageal reflux Other specified hypothyroidism ([facility]/HCC) Primary hypertension ([facility]/HCC) Unspecified essential hypertension Seasonal allergic rhinitis due to pollen Controlled type 2 diabetes mellitus without complication, without long-term current use of insulin ([facility])- Primary Type 2 diabetes mellitus with diabetic chronic kidney disease ([facility]/HCC) Chronic kidney disease, stage 2 (mild) Rtkit-5-nhxwwcneasi deficiency ([facility]/HCC) Tizdx-6-iuxnieneluq deficiency Mixed hyperlipidemia ([facility]/HCC) Mixed hyperlipidemia Chronic obstructive pulmonary disease, unspecified COPD type ([facility]/HCC) Gastroesophageal reflux disease without esophagitis Esophageal reflux Other specified hypothyroidism ([facility]/HCC) Primary hypertension ([facility]/HCC) Unspecified essential hypertension Seasonal allergic rhinitis due to pollen 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 Tobacco use disorder Coronary artery disease involving [place] coronary artery of [place] heart without angina pectoris ([facility]/HCC) Abdominal aortic pulsation Acute bilateral low back pain without sciatica Acute bilateral low back pain without sciatica- Primary Cigarette nicotine dependence with nicotine-induced disorder Primary hypertension ([facility]/HCC) Unspecified essential hypertension Abdominal aortic pulsation Screening for lung cancer 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 Tobacco use disorder Gastroesophageal reflux disease without esophagitis Esophageal reflux documented in this encounter [facility] HealthcareEvaluation note* Diagnosis Bacterial vaginosis- Primary Unspecified vaginitis and vulvovaginitis documented in this encounter [facility] HealthcareEvaluation note* Diagnosis Controlled type 2 diabetes mellitus without complication, without long-term current use of insulin ([facility])- Primary UTI symptoms Acute cystitis without hematuria Vaginal bleeding Other specified noninflammatory disorder of vagina Vaginal discharge Leukorrhea, not specified as infective Mixed hyperlipidemia ([facility] [facility]/HCC) Mixed hyperlipidemia Chronic obstructive pulmonary disease, unspecified COPD type ([facility]/HCC) Gastroesophageal reflux disease without esophagitis Esophageal reflux Other specified hypothyroidism ([facility]/HCC) Primary hypertension ([facility]) Unspecified essential hypertension Seasonal allergic rhinitis due to pollen documented in this encounter [facility] HealthcareEvaluation note* Diagnosis Controlled type 2 diabetes mellitus without complication, without long-term current use of insulin ([facility])- Primary Type 2 diabetes mellitus with diabetic chronic kidney disease ([facility]/HCC) Chronic kidney disease, stage 3a (HCC) ([facility]) Chronic obstructive pulmonary disease, unspecified ([facility]/HCC) Erdqo-8-jmvmleuljgj deficiency ([facility]/HCC) Vxzfr-4-vsfnxnldfuy deficiency Centrilobular emphysema ([facility]/HCC) Primary hypertension ([facility]) Unspecified essential hypertension Coronary artery disease involving [place] coronary artery of [place] heart without angina pectoris ([facility]) Gastroesophageal reflux disease without esophagitis Esophageal reflux Givum-7-rlnpzngryqxtrlnf deficiency Microscopic hematuria Current smoker Elevated alkaline phosphatase level Hx of colonoscopy with polypectomy Controlled type 2 diabetes mellitus without complication, without long-term current use of insulin ([facility])- Primary UTI symptoms Acute cystitis without hematuria Vaginal bleeding Other specified noninflammatory disorder of vagina Vaginal discharge Leukorrhea, not specified as infective Mixed hyperlipidemia ([facility]/HCC) Mixed hyperlipidemia Chronic obstructive pulmonary disease, unspecified COPD type ([facility]) Gastroesophageal reflux disease without esophagitis Esophageal reflux Other specified hypothyroidism ([facility]) Primary hypertension ([facility]) Unspecified essential hypertension Seasonal allergic rhinitis due to pollen Controlled type 2 diabetes mellitus without complication, without long-term current use of insulin ([facility])- Primary Type 2 diabetes mellitus with diabetic chronic kidney disease ([facility]) Chronic kidney disease, stage 2 (mild) Zdjjh-4-nxwqrwsyxsa deficiency ([facility]/HCC) Jtrsc-3-lvrjlfhtmyo deficiency Mixed hyperlipidemia ([facility]) Mixed hyperlipidemia Chronic obstructive pulmonary disease, unspecified COPD type ([facility]) Gastroesophageal reflux disease without esophagitis Esophageal reflux Other specified hypothyroidism ([facility]) Primary hypertension ([facility] Unspecified essential hypertension Seasonal allergic rhinitis due to pollen 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 Tobacco use disorder Coronary artery disease involving [place] coronary artery of [place] heart without angina pectoris ([facility]) Abdominal aortic pulsation Acute bilateral low back pain without sciatica Acute bilateral low back pain without sciatica- Primary Cigarette nicotine dependence with nicotine-induced disorder Primary hypertension ([facility]) Unspecified essential hypertension Abdominal aortic pulsation Screening for lung cancer 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 Tobacco use disorder Onychodystrophy- Primary Other specified disease of nail Ingrown toenail Ingrowing nail Onychomycosis Dermatophytosis of nail Diabetic polyneuropathy associated with type 2 diabetes mellitus ([facility]) Left foot pain Pain in soft tissues of limb documented in this encounter [facility] HealthcareEvaluation note* Diagnosis Controlled type 2 diabetes mellitus without complication, without long-term current use of insulin ([facility])- Primary Type 2 diabetes mellitus with diabetic chronic kidney disease ([facility]) Chronic kidney disease, stage 3a (HCC) ([facility]) Chronic obstructive pulmonary disease, unspecified ([facility]) Wlxdx-1-lzyvsmyavxm deficiency ([facility]/HCC) Mlpnu-9-phtfzezcpuf deficiency Centrilobular emphysema ([facility]) Primary hypertension ([facility]) Unspecified essential hypertension Coronary artery disease involving [place] coronary artery of [place] heart without angina pectoris ([facility]) Gastroesophageal reflux disease without esophagitis Esophageal reflux Poxyq-8-twctikejkiyqxeia deficiency Microscopic hematuria Current smoker Elevated alkaline phosphatase level Hx of colonoscopy with polypectomy Controlled type 2 diabetes mellitus without complication, without long-term current use of insulin ([facility]/HCC)- Primary UTI symptoms Acute cystitis without hematuria Vaginal bleeding Other specified noninflammatory disorder of vagina Vaginal discharge Leukorrhea, not specified as infective Mixed hyperlipidemia (CMS/HCC) Mixed hyperlipidemia Chronic obstructive pulmonary disease, unspecified COPD type (CMS/HCC) Gastroesophageal reflux disease without esophagitis Esophageal reflux Other specified hypothyroidism (CMS/HCC) Primary hypertension (CMS/HCC) Unspecified essential hypertension Seasonal allergic rhinitis due to pollen Controlled type 2 diabetes mellitus without complication, without long-term current use of insulin ([facility]/HCC)- Primary Type 2 diabetes mellitus with diabetic chronic kidney disease ([facility]/HCC) Chronic kidney disease, stage 2 (mild) Yfwrw-8-qydvvlucnxi deficiency (CMS/HCC) Xslzd-4-vwypihypdgi deficiency Mixed hyperlipidemia (CMS/HCC) Mixed hyperlipidemia Chronic obstructive pulmonary disease, unspecified COPD type (CMS/HCC) Gastroesophageal reflux disease without esophagitis Esophageal reflux Other specified hypothyroidism (CMS/HCC) Primary hypertension (CMS/HCC) Unspecified essential hypertension Seasonal allergic rhinitis due to pollen 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 Tobacco use disorder Coronary artery disease involving [place] coronary artery of [place] heart without angina pectoris (CMS/HCC) Abdominal aortic pulsation Acute bilateral low back pain without sciatica Acute bilateral low back pain without sciatica- Primary Cigarette nicotine dependence with nicotine-induced disorder Primary hypertension (CMS/HCC) Unspecified essential hypertension Abdominal aortic pulsation Screening for lung cancer 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 Tobacco use disorder Gastroesophageal reflux disease without esophagitis Esophageal reflux documented in this encounter [facility] HealthcareEvaluation note* Diagnosis Controlled type 2 diabetes mellitus without complication, without long-term current use of insulin ([facility]/HCC)- Primary Type 2 diabetes mellitus with diabetic chronic kidney disease (CMS/HCC) Chronic kidney disease, stage 3a (HCC) (CMS/HCC) Chronic obstructive pulmonary disease, unspecified (CMS/HCC) Iehvh-9-xkalrqqgaid deficiency (CMS/HCC) Tltzy-0-fqalagjwszw deficiency Centrilobular emphysema (CMS/HCC) Primary hypertension (CMS/HCC) Unspecified essential hypertension Coronary artery disease involving [place] coronary artery of [place] heart without angina pectoris (CMS/HCC) Gastroesophageal reflux disease without esophagitis Esophageal reflux Iaiqq-8-puubthpfffgzcnnz deficiency Microscopic hematuria Current smoker Elevated alkaline phosphatase level Hx of colonoscopy with polypectomy Controlled type 2 diabetes mellitus without complication, without long-term current use of insulin ([facility]/HCC)- Primary UTI symptoms Acute cystitis without hematuria Vaginal bleeding Other specified noninflammatory disorder of vagina Vaginal discharge Leukorrhea, not specified as infective Mixed hyperlipidemia (CMS/HCC) Mixed hyperlipidemia Chronic obstructive pulmonary disease, unspecified COPD type (CMS/HCC) Gastroesophageal reflux disease without esophagitis Esophageal reflux Other specified hypothyroidism (CMS/HCC) Primary hypertension (CMS/HCC) Unspecified essential hypertension Seasonal allergic rhinitis due to pollen Controlled type 2 diabetes mellitus without complication, without long-term current use of insulin ([facility]/HCC)- Primary Type 2 diabetes mellitus with diabetic chronic kidney disease ([facility]/HCC) Chronic kidney disease, stage 2 (mild) Xudvz-6-avafnimdodk deficiency ([facility]/HCC) Duafs-6-ddwoidbcnhf deficiency Mixed hyperlipidemia (CMS/HCC) Mixed hyperlipidemia Chronic obstructive pulmonary disease, unspecified COPD type (CMS/HCC) Gastroesophageal reflux disease without esophagitis Esophageal reflux Other specified hypothyroidism (CMS/HCC) Primary hypertension ([facility]/HCC) Unspecified essential hypertension Seasonal allergic rhinitis due to pollen 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 Tobacco use disorder Coronary artery disease involving [place] coronary artery of [place] heart without angina pectoris (CMS/HCC) Abdominal aortic pulsation Acute bilateral low back pain without sciatica Acute bilateral low back pain without sciatica- Primary Cigarette nicotine dependence with nicotine-induced disorder Primary hypertension ([facility]/HCC) Unspecified essential hypertension Abdominal aortic pulsation Screening for lung cancer 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 Tobacco use disorder Gastroesophageal reflux disease without esophagitis Esophageal reflux documented in this encounter [facility] HealthcareEvaluation note* Diagnosis Controlled type 2 diabetes mellitus without complication, without long-term current use of insulin ([facility]/HCC)- Primary Type 2 diabetes mellitus with diabetic chronic kidney disease (CMS/HCC) Chronic kidney disease, stage 3a (HCC) ([facility]/HCC) Chronic obstructive pulmonary disease, unspecified (CMS/HCC) Bimvi-7-zjgpysuhzmw deficiency ([facility]/HCC) Pkkri-7-kcmbxhppwck deficiency Centrilobular emphysema (CMS/HCC) Primary hypertension (CMS/HCC) Unspecified essential hypertension Coronary artery disease involving [place] coronary artery of [place] heart without angina pectoris (CMS/HCC) Gastroesophageal reflux disease without esophagitis Esophageal reflux Ahwet-9-phigyvhqznzhdaul deficiency Microscopic hematuria Current smoker Elevated alkaline phosphatase level Hx of colonoscopy with polypectomy Controlled type 2 diabetes mellitus without complication, without long-term current use of insulin ([facility]/HCC)- Primary UTI symptoms Acute cystitis without hematuria Vaginal bleeding Other specified noninflammatory disorder of vagina Vaginal discharge Leukorrhea, not specified as infective Mixed hyperlipidemia (CMS/HCC) Mixed hyperlipidemia Chronic obstructive pulmonary disease, unspecified COPD type (CMS/HCC) Gastroesophageal reflux disease without esophagitis Esophageal reflux Other specified hypothyroidism (CMS/HCC) Primary hypertension ([facility]/HCC) Unspecified essential hypertension Seasonal allergic rhinitis due to pollen Controlled type 2 diabetes mellitus without complication, without long-term current use of insulin ([facility]/HCC)- Primary Type 2 diabetes mellitus with diabetic chronic kidney disease ([facility]/HCC) Chronic kidney disease, stage 2 (mild) Niunm-7-eetknqhopsq deficiency ([facility]/HCC) Bqjey-4-macumlqkjjt deficiency Mixed hyperlipidemia ([facility]/HCC) Mixed hyperlipidemia Chronic obstructive pulmonary disease, unspecified COPD type ([facility]/HCC) Gastroesophageal reflux disease without esophagitis Esophageal reflux Other specified hypothyroidism ([facility]/HCC) Primary hypertension ([facility]/HCC) Unspecified essential hypertension Seasonal allergic rhinitis due to pollen 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 Tobacco use disorder Coronary artery disease involving [place] coronary artery of [place] heart without angina pectoris (CMS/HCC) Abdominal aortic pulsation Acute bilateral low back pain without sciatica Acute bilateral low back pain without sciatica- Primary Cigarette nicotine dependence with nicotine-induced disorder Primary hypertension ([facility]/HCC) Unspecified essential hypertension Abdominal aortic pulsation Screening for lung cancer 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 Tobacco use disorder Dental infection- Primary documented in this encounter [facility] HealthcareEvaluation note* Diagnosis Controlled type 2 diabetes mellitus without complication, without long-term current use of insulin ([facility])- Primary Type 2 diabetes mellitus with diabetic chronic kidney disease ([facility]/HCC) Chronic kidney disease, stage 3a (HCC) ([facility]/HCC) Chronic obstructive pulmonary disease, unspecified ([facility]/HCC) Aaawk-3-cnwusscsxim deficiency ([facility]/HCC) Hlyll-7-wtegyotrngo deficiency Centrilobular emphysema (CMS/HCC) Primary hypertension ([facility]/HCC) Unspecified essential hypertension Coronary artery disease involving [place] coronary artery of [place] heart without angina pectoris (CMS/HCC) Gastroesophageal reflux disease without esophagitis Esophageal reflux Gfaie-1-ijvkaaajctnlmqee deficiency Microscopic hematuria Current smoker Elevated alkaline phosphatase level Hx of colonoscopy with polypectomy Controlled type 2 diabetes mellitus without complication, without long-term current use of insulin ([facility])- Primary UTI symptoms Acute cystitis without hematuria Vaginal bleeding Other specified noninflammatory disorder of vagina Vaginal discharge Leukorrhea, not specified as infective Mixed hyperlipidemia ([facility]) Mixed hyperlipidemia Chronic obstructive pulmonary disease, unspecified COPD type ([facility]) Gastroesophageal reflux disease without esophagitis Esophageal reflux Other specified hypothyroidism ([facility]/HCC) Primary hypertension ([facility]) Unspecified essential hypertension Seasonal allergic rhinitis due to pollen Controlled type 2 diabetes mellitus without complication, without long-term current use of insulin ([facility])- Primary Type 2 diabetes mellitus with diabetic chronic kidney disease ([facility]) Chronic kidney disease, stage 2 (mild) Issxt-0-jgqugksyhwm deficiency ([facility]) Etljl-7-isucfkkawlb deficiency Mixed hyperlipidemia ([facility]) Mixed hyperlipidemia Chronic obstructive pulmonary disease, unspecified COPD type ([facility]) Gastroesophageal reflux disease without esophagitis Esophageal reflux Other specified hypothyroidism ([facility]) Primary hypertension ([facility]) Unspecified essential hypertension Seasonal allergic rhinitis due to pollen 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 Tobacco use disorder Coronary artery disease involving [place] coronary artery of [place] heart without angina pectoris ([facility]) Abdominal aortic pulsation Acute bilateral low back pain without sciatica Acute bilateral low back pain without sciatica- Primary Cigarette nicotine dependence with nicotine-induced disorder Primary hypertension ([facility]) Unspecified essential hypertension Abdominal aortic pulsation Screening for lung cancer 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 Tobacco use disorder UTI symptoms- Primary 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 Tobacco use disorder documented in this encounter [facility] HealthcareEvaluation note* Diagnosis Controlled type 2 diabetes mellitus without complication, without long-term current use of insulin ([facility])- Primary Type 2 diabetes mellitus with diabetic chronic kidney disease ([facility]) Chronic kidney disease, stage 3a (HCC) ([facility]) Chronic obstructive pulmonary disease, unspecified ([facility]) Kpkta-5-okiymredfpg deficiency ([facility]) Hulyn-5-yvgnbeuvhkp deficiency Centrilobular emphysema ([facility] Primary hypertension ([facility]) Unspecified essential hypertension Coronary artery disease involving [place] coronary artery of [place] heart without angina pectoris ([facility]) Gastroesophageal reflux disease without esophagitis Esophageal reflux Yqmfs-5-osqlcbhvozsrstqz deficiency Microscopic hematuria Current smoker Elevated alkaline phosphatase level Hx of colonoscopy with polypectomy Controlled type 2 diabetes mellitus without complication, without long-term current use of insulin ([facility])- Primary UTI symptoms Acute cystitis without hematuria Vaginal bleeding Other specified noninflammatory disorder of vagina Vaginal discharge Leukorrhea, not specified as infective Mixed hyperlipidemia ([facility]) Mixed hyperlipidemia Chronic obstructive pulmonary disease, unspecified COPD type ([facility]) Gastroesophageal reflux disease without esophagitis Esophageal reflux Other specified hypothyroidism ([facility]) Primary hypertension ([facility]) Unspecified essential hypertension Seasonal allergic rhinitis due to pollen Controlled type 2 diabetes mellitus without complication, without long-term current use of insulin ([facility])- Primary Type 2 diabetes mellitus with diabetic chronic kidney disease ([facility]) Chronic kidney disease, stage 2 (mild) Bqugk-5-taiflmldzbs deficiency ([facility]) Ukzot-0-bfpjjeraceb deficiency Mixed hyperlipidemia ([facility]) Mixed hyperlipidemia Chronic obstructive pulmonary disease, unspecified COPD type ([facility]) Gastroesophageal reflux disease without esophagitis Esophageal reflux Other specified hypothyroidism ([facility]) Primary hypertension ([facility]) Unspecified essential hypertension Seasonal allergic rhinitis due to pollen 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 Tobacco use disorder Coronary artery disease involving [place] coronary artery of [place] heart without angina pectoris ([facility]) Abdominal aortic pulsation Acute bilateral low back pain without sciatica Acute bilateral low back pain without sciatica- Primary Cigarette nicotine dependence with nicotine-induced disorder Primary hypertension ([facility]) Unspecified essential hypertension Abdominal aortic pulsation Screening for lung cancer 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 Tobacco use disorder UTI symptoms- Primary 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 Tobacco use disorder Generalized abdominal pain- Primary Abdominal pain, generalized documented in this encounter [facility] HealthcareEvaluation note* Diagnosis Controlled type 2 diabetes mellitus without complication, without long-term current use of insulin ([facility])- Primary Type 2 diabetes mellitus with diabetic chronic kidney disease ([facility]) Chronic kidney disease, stage 3a (HCC) ([facility]) Chronic obstructive pulmonary disease, unspecified ([facility]) Hmzkn-7-bdcwhvpbzoc deficiency ([facility]) Inwoy-2-qephctrrlcc deficiency Centrilobular emphysema ([facility] Primary hypertension ([facility]) Unspecified essential hypertension Coronary artery disease involving [place] coronary artery of [place] heart without angina pectoris ([facility]) Gastroesophageal reflux disease without esophagitis Esophageal reflux Hyioa-9-jycuywbhtpcaqqsp deficiency Microscopic hematuria Current smoker Elevated alkaline phosphatase level Hx of colonoscopy with polypectomy Controlled type 2 diabetes mellitus without complication, without long-term current use of insulin ([facility])- Primary UTI symptoms Acute cystitis without hematuria Vaginal bleeding Other specified noninflammatory disorder of vagina Vaginal discharge Leukorrhea, not specified as infective Mixed hyperlipidemia ([facility]/HCC) Mixed hyperlipidemia Chronic obstructive pulmonary disease, unspecified COPD type ([facility]/HCC) Gastroesophageal reflux disease without esophagitis Esophageal reflux Other specified hypothyroidism ([facility]/HCC) Primary hypertension ([facility]) Unspecified essential hypertension Seasonal allergic rhinitis due to pollen Controlled type 2 diabetes mellitus without complication, without long-term current use of insulin ([facility])- Primary Type 2 diabetes mellitus with diabetic chronic kidney disease ([facility]) Chronic kidney disease, stage 2 (mild) Zdpzk-3-amoanhxzthd deficiency ([facility]/HCC) Pugxz-9-bsssdgtvadb deficiency Mixed hyperlipidemia ([facility]/HCC) Mixed hyperlipidemia Chronic obstructive pulmonary disease, unspecified COPD type ([facility]) Gastroesophageal reflux disease without esophagitis Esophageal reflux Other specified hypothyroidism ([facility]) Primary hypertension ([facility]) Unspecified essential hypertension Seasonal allergic rhinitis due to pollen 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 Tobacco use disorder Coronary artery disease involving [place] coronary artery of [place] heart without angina pectoris ([facility]) Abdominal aortic pulsation Acute bilateral low back pain without sciatica Acute bilateral low back pain without sciatica- Primary Cigarette nicotine dependence with nicotine-induced disorder Primary hypertension ([facility]) Unspecified essential hypertension Abdominal aortic pulsation Screening for lung cancer 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 Tobacco use disorder UTI symptoms- Primary 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 Tobacco use disorder Controlled type 2 diabetes mellitus without complication, without long-term current use of insulin ([facility]) Other specified hypothyroidism ([facility]) Gastroesophageal reflux disease without esophagitis Esophageal reflux Chronic obstructive pulmonary disease, unspecified COPD type ([facility]) documented in this encounter [facility] HealthcareEvaluation note* Diagnosis Controlled type 2 diabetes mellitus without complication, without long-term current use of insulin ([facility])- Primary Type 2 diabetes mellitus with diabetic chronic kidney disease ([facility]) Chronic kidney disease, stage 3a (HCC) ([facility]) Chronic obstructive pulmonary disease, unspecified ([facility]) Fzitl-4-viwmknvpfvd deficiency ([facility]) Eiexs-4-bplhbidzujm deficiency Centrilobular emphysema ([facility]) Primary hypertension ([facility]) Unspecified essential hypertension Coronary artery disease involving [place] coronary artery of [place] heart without angina pectoris ([facility]) Gastroesophageal reflux disease without esophagitis Esophageal reflux Yjnba-5-byymioujvaicoxbl deficiency Microscopic hematuria Current smoker Elevated alkaline phosphatase level Hx of colonoscopy with polypectomy Controlled type 2 diabetes mellitus without complication, without long-term current use of insulin ([facility])- Primary UTI symptoms Acute cystitis without hematuria Vaginal bleeding Other specified noninflammatory disorder of vagina Vaginal discharge Leukorrhea, not specified as infective Mixed hyperlipidemia (CMS/HCC) Mixed hyperlipidemia Chronic obstructive pulmonary disease, unspecified COPD type (CMS/HCC) Gastroesophageal reflux disease without esophagitis Esophageal reflux Other specified hypothyroidism (CMS/HCC) Primary hypertension ([facility]/HCC) Unspecified essential hypertension Seasonal allergic rhinitis due to pollen Controlled type 2 diabetes mellitus without complication, without long-term current use of insulin ([facility])- Primary Type 2 diabetes mellitus with diabetic chronic kidney disease ([facility]) Chronic kidney disease, stage 2 (mild) Rtrfh-4-fgybxcjmbjj deficiency ([facility]/HCC) Fiopv-8-xkpiwyhrbkd deficiency Mixed hyperlipidemia ([facility]/HCC) Mixed hyperlipidemia Chronic obstructive pulmonary disease, unspecified COPD type ([facility]/HCC) Gastroesophageal reflux disease without esophagitis Esophageal reflux Other specified hypothyroidism ([facility]/HCC) Primary hypertension ([facility]/HCC) Unspecified essential hypertension Seasonal allergic rhinitis due to pollen 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 Tobacco use disorder Coronary artery disease involving [place] coronary artery of [place] heart without angina pectoris ([facility]) Abdominal aortic pulsation Acute bilateral low back pain without sciatica Acute bilateral low back pain without sciatica- Primary Cigarette nicotine dependence with nicotine-induced disorder Primary hypertension ([facility]/HCC) Unspecified essential hypertension Abdominal aortic pulsation Screening for lung cancer 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 Tobacco use disorder UTI symptoms- Primary 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 Tobacco use disorder Lower abdominal pain- Primary Abdominal pain, other specified site Type 2 diabetes mellitus with diabetic chronic kidney disease (CMS/HCC) Chronic kidney disease, stage 3a (HCC) ([facility]) Kpkrw-1-ggurvooqjqc deficiency ([facility]/HCC) Fmvlq-5-rkcybvknnvl deficiency Type 2 diabetes mellitus with diabetic polyneuropathy ([facility]/HCC) Chronic obstructive pulmonary disease, unspecified COPD type ([facility]/HCC) Coronary artery disease involving [place] coronary artery of [place] heart without angina pectoris ([facility]/HCC) Primary hypertension ([facility]/HCC) Unspecified essential hypertension Gastroesophageal reflux disease without esophagitis Esophageal reflux Controlled type 2 diabetes mellitus without complication, without long-term current use of insulin ([facility]/HCC) Mixed hyperlipidemia (CMS/HCC) Mixed hyperlipidemia Elevated alkaline phosphatase level Cigarette nicotine dependence with nicotine-induced disorder Vaginal bleeding Other specified noninflammatory disorder of vagina Seasonal allergic rhinitis due to pollen Colovaginal fistula Controlled type 2 diabetes mellitus without complication, without long-term current use of insulin ([facility])- Primary documented in this encounter [facility] HealthcareEvaluation note* Diagnosis Controlled type 2 diabetes mellitus without complication, without long-term current use of insulin- Primary Type 2 diabetes mellitus with diabetic chronic kidney disease (CMS/HCC) Chronic kidney disease, stage 3a (HCC) ([facility]) Chronic obstructive pulmonary disease, unspecified Wcxjz-8-eiypbhycxcw deficiency ([facility]/HCC) Golsl-9-xptnuaupncd deficiency Centrilobular emphysema ([facility]/HCC) Primary hypertension ([facility]) Unspecified essential hypertension Coronary artery disease involving [place] coronary artery of [place] heart without angina pectoris ([facility]) Gastroesophageal reflux disease without esophagitis Esophageal reflux Etnsn-8-ewutxeunngmqkvrb deficiency Microscopic hematuria Current smoker Elevated alkaline phosphatase level Hx of colonoscopy with polypectomy Controlled type 2 diabetes mellitus without complication, without long-term current use of insulin- Primary UTI symptoms Acute cystitis without hematuria Vaginal bleeding Other specified noninflammatory disorder of vagina Vaginal discharge Leukorrhea, not specified as infective Mixed hyperlipidemia ([facility]/HCC) Mixed hyperlipidemia Chronic obstructive pulmonary disease, unspecified COPD type ([facility]/HCC) Gastroesophageal reflux disease without esophagitis Esophageal reflux Other specified hypothyroidism Primary hypertension ([facility]) Unspecified essential hypertension Seasonal allergic rhinitis due to pollen Controlled type 2 diabetes mellitus without complication, without long-term current use of insulin- Primary Type 2 diabetes mellitus with diabetic chronic kidney disease ([facility]/HCC) Chronic kidney disease, stage 2 (mild) Qmtlb-1-ndvvatlimio deficiency ([facility]/HCC) Brrlp-9-evqonqdifoh deficiency Mixed hyperlipidemia ([facility]/HCC) Mixed hyperlipidemia Chronic obstructive pulmonary disease, unspecified COPD type ([facility]/HCC) Gastroesophageal reflux disease without esophagitis Esophageal reflux Other specified hypothyroidism Primary hypertension ([facility]) Unspecified essential hypertension Seasonal allergic rhinitis due to pollen 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 Tobacco use disorder Coronary artery disease involving [place] coronary artery of [place] heart without angina pectoris ([facility]) Abdominal aortic pulsation Acute bilateral low back pain without sciatica Acute bilateral low back pain without sciatica- Primary Cigarette nicotine dependence with nicotine-induced disorder Primary hypertension ([facility]/HCC) Unspecified essential hypertension Abdominal aortic pulsation Screening for lung cancer 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 Tobacco use disorder UTI symptoms- Primary 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 Tobacco use disorder Lower abdominal pain- Primary Abdominal pain, other specified site Type 2 diabetes mellitus with diabetic chronic kidney disease (CMS/HCC) Chronic kidney disease, stage 3a (HCC) ([facility]/HCC) Cuvjo-3-ywqwfispdwk deficiency ([facility]/HCC) Idhpn-7-rdgbzklaqmv deficiency Type 2 diabetes mellitus with diabetic polyneuropathy ([facility]/HCC) Chronic obstructive pulmonary disease, unspecified COPD type ([facility]/HCC) Coronary artery disease involving [place] coronary artery of [place] heart without angina pectoris ([facility]/HCC) Primary hypertension ([facility]/HCC) Unspecified essential hypertension Gastroesophageal reflux disease without esophagitis Esophageal reflux Controlled type 2 diabetes mellitus without complication, without long-term current use of insulin Mixed hyperlipidemia ([facility]/HCC) Mixed hyperlipidemia Elevated alkaline phosphatase level Cigarette nicotine dependence with nicotine-induced disorder Vaginal bleeding Other specified noninflammatory disorder of vagina Seasonal allergic rhinitis due to pollen Colovaginal fistula Primary hypertension ([facility]) Unspecified essential hypertension documented in this encounter [facility] HealthcareEvaluation note* Diagnosis Controlled type 2 diabetes mellitus without complication, without long-term current use of insulin- Primary Type 2 diabetes mellitus with diabetic chronic kidney disease ([facility]/HCC) Chronic kidney disease, stage 3a (HCC) ([facility]) Chronic obstructive pulmonary disease, unspecified Aaqln-2-uywxlwpgsqx deficiency ([facility]/HCC) Mqdjq-1-lbcqkqfotfp deficiency Centrilobular emphysema ([facility]/HCC) Primary hypertension ([facility]) Unspecified essential hypertension Coronary artery disease involving [place] coronary artery of [place] heart without angina pectoris ([facility]) Gastroesophageal reflux disease without esophagitis Esophageal reflux Hogdo-3-jtpncoqydktkyfii deficiency Microscopic hematuria Current smoker Elevated alkaline phosphatase level Hx of colonoscopy with polypectomy Controlled type 2 diabetes mellitus without complication, without long-term current use of insulin- Primary UTI symptoms Acute cystitis without hematuria Vaginal bleeding Other specified noninflammatory disorder of vagina Vaginal discharge Leukorrhea, not specified as infective Mixed hyperlipidemia ([facility]/HCC) Mixed hyperlipidemia Chronic obstructive pulmonary disease, unspecified COPD type ([facility]/HCC) Gastroesophageal reflux disease without esophagitis Esophageal reflux Other specified hypothyroidism Primary hypertension ([facility]/HCC) Unspecified essential hypertension Seasonal allergic rhinitis due to pollen Controlled type 2 diabetes mellitus without complication, without long-term current use of insulin- Primary Type 2 diabetes mellitus with diabetic chronic kidney disease (CMS/HCC) Chronic kidney disease, stage 2 (mild) Qvvtn-0-dwvtasaoxfk deficiency (CMS/HCC) Jyznr-8-mddxjklbuel deficiency Mixed hyperlipidemia (CMS/HCC) Mixed hyperlipidemia Chronic obstructive pulmonary disease, unspecified COPD type (CMS/HCC) Gastroesophageal reflux disease without esophagitis Esophageal reflux Other specified hypothyroidism Primary hypertension (CMS/HCC) Unspecified essential hypertension Seasonal allergic rhinitis due to pollen 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 Tobacco use disorder Coronary artery disease involving [place] coronary artery of [place] heart without angina pectoris (CMS/HCC) Abdominal aortic pulsation Acute bilateral low back pain without sciatica Acute bilateral low back pain without sciatica- Primary Cigarette nicotine dependence with nicotine-induced disorder Primary hypertension (CMS/HCC) Unspecified essential hypertension Abdominal aortic pulsation Screening for lung cancer 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 Tobacco use disorder UTI symptoms- Primary 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 Tobacco use disorder Lower abdominal pain- Primary Abdominal pain, other specified site Type 2 diabetes mellitus with diabetic chronic kidney disease (CMS/HCC) Chronic kidney disease, stage 3a (HCC) (CMS/HCC) Xadlz-2-jerzoptxyzt deficiency (CMS/HCC) Wbvmg-0-cvqxirsfevg deficiency Type 2 diabetes mellitus with diabetic polyneuropathy (CMS/HCC) Chronic obstructive pulmonary disease, unspecified COPD type (CMS/HCC) Coronary artery disease involving [place] coronary artery of [place] heart without angina pectoris (CMS/HCC) Primary hypertension (CMS/HCC) Unspecified essential hypertension Gastroesophageal reflux disease without esophagitis Esophageal reflux Controlled type 2 diabetes mellitus without complication, without long-term current use of insulin Mixed hyperlipidemia (CMS/HCC) Mixed hyperlipidemia Elevated alkaline phosphatase level Cigarette nicotine dependence with nicotine-induced disorder Vaginal bleeding Other specified noninflammatory disorder of vagina Seasonal allergic rhinitis due to pollen Colovaginal fistula Colovaginal fistula- Primary Cigarette nicotine dependence with nicotine-induced disorder Type 2 diabetes mellitus with diabetic polyneuropathy, without long-term current use of insulin (CMS/HCC) Primary hypertension (CMS/HCC) Unspecified essential hypertension Chronic kidney disease, stage 3a (HCC) (CMS/HCC) Type 2 diabetes mellitus with chronic kidney disease, without long-term current use of insulin, unspecified CKD stage (CMS/HCC) Gastroesophageal reflux disease without esophagitis Esophageal reflux Mixed hyperlipidemia (CMS/HCC) Mixed hyperlipidemia Chronic obstructive pulmonary disease, unspecified COPD type (CMS/HCC) Other specified hypothyroidism Seasonal allergic rhinitis due to pollen documented in this encounter [facility] HealthcareEvaluation note* Diagnosis Controlled type 2 diabetes mellitus without complication, without long-term current use of insulin- Primary Type 2 diabetes mellitus with diabetic chronic kidney disease (CMS/HCC) Chronic kidney disease, stage 3a (HCC) (CMS/HCC) Chronic obstructive pulmonary disease, unspecified Vtqbf-1-axpcbasgtqr deficiency (CMS/HCC) Batum-9-diflgtgbjoo deficiency Centrilobular emphysema (CMS/HCC) Primary hypertension (CMS/HCC) Unspecified essential hypertension Coronary artery disease involving [place] coronary artery of [place] heart without angina pectoris (CMS/HCC) Gastroesophageal reflux disease without esophagitis Esophageal reflux Odgcq-3-faeaygoubhvjvmlf deficiency Microscopic hematuria Current smoker Elevated alkaline phosphatase level Hx of colonoscopy with polypectomy Controlled type 2 diabetes mellitus without complication, without long-term current use of insulin- Primary UTI symptoms Acute cystitis without hematuria Vaginal bleeding Other specified noninflammatory disorder of vagina Vaginal discharge Leukorrhea, not specified as infective Mixed hyperlipidemia (CMS/HCC) Mixed hyperlipidemia Chronic obstructive pulmonary disease, unspecified COPD type (CMS/HCC) Gastroesophageal reflux disease without esophagitis Esophageal reflux Other specified hypothyroidism Primary hypertension (CMS/HCC) Unspecified essential hypertension Seasonal allergic rhinitis due to pollen Controlled type 2 diabetes mellitus without complication, without long-term current use of insulin- Primary Type 2 diabetes mellitus with diabetic chronic kidney disease ([facility]/HCC) Chronic kidney disease, stage 2 (mild) [place]-5-aapvhkktsit deficiency ([facility]/HCC) Lfhfn-3-igujcvqpjdw deficiency Mixed hyperlipidemia (CMS/HCC) Mixed hyperlipidemia Chronic obstructive pulmonary disease, unspecified COPD type (CMS/HCC) Gastroesophageal reflux disease without esophagitis Esophageal reflux Other specified hypothyroidism Primary hypertension ([facility]/HCC) Unspecified essential hypertension Seasonal allergic rhinitis due to pollen 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 Tobacco use disorder Coronary artery disease involving [place] coronary artery of [place] heart without angina pectoris (CMS/HCC) Abdominal aortic pulsation Acute bilateral low back pain without sciatica Acute bilateral low back pain without sciatica- Primary Cigarette nicotine dependence with nicotine-induced disorder Primary hypertension (CMS/HCC) Unspecified essential hypertension Abdominal aortic pulsation Screening for lung cancer 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 Tobacco use disorder UTI symptoms- Primary 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 Tobacco use disorder Lower abdominal pain- Primary Abdominal pain, other specified site Type 2 diabetes mellitus with diabetic chronic kidney disease (CMS/HCC) Chronic kidney disease, stage 3a (HCC) (CMS/HCC) Klwhu-9-oibqkatybjy deficiency ([facility]/HCC) Xmlea-7-ojlshpskjhb deficiency Type 2 diabetes mellitus with diabetic polyneuropathy ([facility]) Chronic obstructive pulmonary disease, unspecified COPD type ([facility]) Coronary artery disease involving [place] coronary artery of [place] heart without angina pectoris ([facility]) Primary hypertension ([facility]) Unspecified essential hypertension Gastroesophageal reflux disease without esophagitis Esophageal reflux Controlled type 2 diabetes mellitus without complication, without long-term current use of insulin Mixed hyperlipidemia ([facility]) Mixed hyperlipidemia Elevated alkaline phosphatase level Cigarette nicotine dependence with nicotine-induced disorder Vaginal bleeding Other specified noninflammatory disorder of vagina Seasonal allergic rhinitis due to pollen Colovaginal fistula Colovaginal fistula- Primary Cigarette nicotine dependence with nicotine-induced disorder Type 2 diabetes mellitus with diabetic polyneuropathy, without long-term current use of insulin ([facility]) Primary hypertension ([facility]) Unspecified essential hypertension Chronic kidney disease, stage 3a (HCC) ([facility]) Type 2 diabetes mellitus with chronic kidney disease, without long-term current use of insulin, unspecified CKD stage ([facility]) Gastroesophageal reflux disease without esophagitis Esophageal reflux Mixed hyperlipidemia ([facility]) Mixed hyperlipidemia Chronic obstructive pulmonary disease, unspecified COPD type ([facility]) Other specified hypothyroidism Seasonal allergic rhinitis due to pollen Onychodystrophy- Primary Other specified disease of nail Onychomycosis Dermatophytosis of nail Diabetic polyneuropathy associated with type 2 diabetes mellitus ([facility]) documented in this encounter [facility] HealthcareEvaluation note* Diagnosis Controlled type 2 diabetes mellitus without complication, without long-term current use of insulin- Primary Type 2 diabetes mellitus with diabetic chronic kidney disease ([facility]/HCC) Chronic kidney disease, stage 3a (HCC) ([facility]) Chronic obstructive pulmonary disease, unspecified Ijqkb-5-llnalzsabtv deficiency ([facility]) Qzjql-0-szpyyxgqzyz deficiency Centrilobular emphysema ([facility]) Primary hypertension ([facility]) Unspecified essential hypertension Coronary artery disease involving [place] coronary artery of [place] heart without angina pectoris ([facility]) Gastroesophageal reflux disease without esophagitis Esophageal reflux Phtaa-3-lnosabaqetkvzgjw deficiency Microscopic hematuria Current smoker Elevated alkaline phosphatase level Hx of colonoscopy with polypectomy Controlled type 2 diabetes mellitus without complication, without long-term current use of insulin- Primary UTI symptoms Acute cystitis without hematuria Vaginal bleeding Other specified noninflammatory disorder of vagina Vaginal discharge Leukorrhea, not specified as infective Mixed hyperlipidemia ([facility]/HCC) Mixed hyperlipidemia Chronic obstructive pulmonary disease, unspecified COPD type ([facility]) Gastroesophageal reflux disease without esophagitis Esophageal reflux Other specified hypothyroidism Primary hypertension ([facility]) Unspecified essential hypertension Seasonal allergic rhinitis due to pollen Controlled type 2 diabetes mellitus without complication, without long-term current use of insulin- Primary Type 2 diabetes mellitus with diabetic chronic kidney disease ([facility]) Chronic kidney disease, stage 2 (mild) Qyiyx-5-frvxygtqghv deficiency ([facility]) Skarb-1-uaflmsjxqiu deficiency Mixed hyperlipidemia ([facility]) Mixed hyperlipidemia Chronic obstructive pulmonary disease, unspecified COPD type ([facility]) Gastroesophageal reflux disease without esophagitis Esophageal reflux Other specified hypothyroidism Primary hypertension ([facility]) Unspecified essential hypertension Seasonal allergic rhinitis due to pollen 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 Tobacco use disorder Coronary artery disease involving [place] coronary artery of [place] heart without angina pectoris ([facility]) Abdominal aortic pulsation Acute bilateral low back pain without sciatica Acute bilateral low back pain without sciatica- Primary Cigarette nicotine dependence with nicotine-induced disorder Primary hypertension ([facility]) Unspecified essential hypertension Abdominal aortic pulsation Screening for lung cancer 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 Tobacco use disorder UTI symptoms- Primary 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 Tobacco use disorder Lower abdominal pain- Primary Abdominal pain, other specified site Type 2 diabetes mellitus with diabetic chronic kidney disease ([facility]) Chronic kidney disease, stage 3a (HCC) ([facility]) Uapcy-1-qjndzukxdnv deficiency ([facility]) Nuwoh-4-vkreopdhsuf deficiency Type 2 diabetes mellitus with diabetic polyneuropathy ([facility]) Chronic obstructive pulmonary disease, unspecified COPD type ([facility]) Coronary artery disease involving [place] coronary artery of [place] heart without angina pectoris ([facility]) Primary hypertension ([facility]) Unspecified essential hypertension Gastroesophageal reflux disease without esophagitis Esophageal reflux Controlled type 2 diabetes mellitus without complication, without long-term current use of insulin Mixed hyperlipidemia ([facility]) Mixed hyperlipidemia Elevated alkaline phosphatase level Cigarette nicotine dependence with nicotine-induced disorder Vaginal bleeding Other specified noninflammatory disorder of vagina Seasonal allergic rhinitis due to pollen Colovaginal fistula Colovaginal fistula- Primary Cigarette nicotine dependence with nicotine-induced disorder Type 2 diabetes mellitus with diabetic polyneuropathy, without long-term current use of insulin (CMS/HCC) Primary hypertension (CMS/HCC) Unspecified essential hypertension Chronic kidney disease, stage 3a (HCC) (CMS/HCC) Type 2 diabetes mellitus with chronic kidney disease, without long-term current use of insulin, unspecified CKD stage (CMS/HCC) Gastroesophageal reflux disease without esophagitis Esophageal reflux Mixed hyperlipidemia (CMS/HCC) Mixed hyperlipidemia Chronic obstructive pulmonary disease, unspecified COPD type (CMS/HCC) Other specified hypothyroidism Seasonal allergic rhinitis due to pollen Chronic obstructive pulmonary disease, unspecified COPD type (CMS/HCC)- Primary documented in this encounter [facility] HealthcareEvaluation note* Diagnosis Controlled type 2 diabetes mellitus without complication, without long-term current use of insulin (HCC)- Primary Type 2 diabetes mellitus with diabetic chronic kidney disease (HCC) Chronic kidney disease, stage 3a (CMS-HCC) Chronic obstructive pulmonary disease, unspecified (HCC) Dmgzm-8-tvjvffwmjqd deficiency (HCC) Ewsay-6-vjcktxtpygg deficiency Centrilobular emphysema (HCC) Primary hypertension Unspecified essential hypertension Coronary artery disease involving [place] coronary artery of [place] heart without angina pectoris Gastroesophageal reflux disease without esophagitis Esophageal reflux Uvssx-7-qdpedgzcoffrlkda deficiency Microscopic hematuria Current smoker Elevated alkaline phosphatase level Hx of colonoscopy with polypectomy Controlled type 2 diabetes mellitus without complication, without long-term current use of insulin (HCC)- Primary UTI symptoms Acute cystitis without hematuria Vaginal bleeding Other specified noninflammatory disorder of vagina Vaginal discharge Leukorrhea, not specified as infective Mixed hyperlipidemia Mixed hyperlipidemia Chronic obstructive pulmonary disease, unspecified COPD type (HCC) Gastroesophageal reflux disease without esophagitis Esophageal reflux Other specified hypothyroidism Primary hypertension Unspecified essential hypertension Seasonal allergic rhinitis due to pollen Controlled type 2 diabetes mellitus without complication, without long-term current use of insulin (HCC)- Primary Type 2 diabetes mellitus with diabetic chronic kidney disease (HCC) Chronic kidney disease, stage 2 (mild) Gggxa-2-tqftjqksajo deficiency (HCC) Ernih-8-omsxrcpqbmk deficiency Mixed hyperlipidemia Mixed hyperlipidemia Chronic obstructive pulmonary disease, unspecified COPD type (HCC) Gastroesophageal reflux disease without esophagitis Esophageal reflux Other specified hypothyroidism Primary hypertension Unspecified essential hypertension Seasonal allergic rhinitis due to pollen 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 Tobacco use disorder Coronary artery disease involving [place] coronary artery of [place] heart without angina pectoris Abdominal aortic pulsation Acute bilateral low back pain without sciatica Acute bilateral low back pain without sciatica- Primary Cigarette nicotine dependence with nicotine-induced disorder Primary hypertension Unspecified essential hypertension Abdominal aortic pulsation Screening for lung cancer 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 Tobacco use disorder UTI symptoms- Primary 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 Tobacco use disorder Lower abdominal pain- Primary Abdominal pain, other specified site Type 2 diabetes mellitus with diabetic chronic kidney disease (HCC) Chronic kidney disease, stage 3a (CMS-HCC) Uijaj-3-diffkggqzqo deficiency (HCC) Hmfqy-2-lbhxylhdblx deficiency Type 2 diabetes mellitus with diabetic polyneuropathy (HCC) Chronic obstructive pulmonary disease, unspecified COPD type (HCC) Coronary artery disease involving [place] coronary artery of [place] heart without angina pectoris Primary hypertension Unspecified essential hypertension Gastroesophageal reflux disease without esophagitis Esophageal reflux Controlled type 2 diabetes mellitus without complication, without long-term current use of insulin (HCC) Mixed hyperlipidemia Mixed hyperlipidemia Elevated alkaline phosphatase level Cigarette nicotine dependence with nicotine-induced disorder Vaginal bleeding Other specified noninflammatory disorder of vagina Seasonal allergic rhinitis due to pollen Colovaginal fistula Colovaginal fistula- Primary Cigarette nicotine dependence with nicotine-induced disorder Type 2 diabetes mellitus with diabetic polyneuropathy, without long-term current use of insulin (HCC) Primary hypertension Unspecified essential hypertension Chronic kidney disease, stage 3a (CMS-HCC) Type 2 diabetes mellitus with chronic kidney disease, without long-term current use of insulin, unspecified CKD stage (HCC) Gastroesophageal reflux disease without esophagitis Esophageal reflux Mixed hyperlipidemia Mixed hyperlipidemia Chronic obstructive pulmonary disease, unspecified COPD type (HCC) Other specified hypothyroidism Seasonal allergic rhinitis due to pollen Primary hypertension Unspecified essential hypertension documented in this encounter [facility] HealthcareEvaluation note* Diagnosis Controlled type 2 diabetes mellitus without complication, without long-term current use of insulin (HCC)- Primary Type 2 diabetes mellitus with diabetic chronic kidney disease (HCC) Chronic kidney disease, stage 3a (CMS-HCC) Chronic obstructive pulmonary disease, unspecified (HCC) Qowko-6-sorpmunehkm deficiency (HCC) Dtxez-5-sykjxsdzalw deficiency Centrilobular emphysema (HCC) Primary hypertension Unspecified essential hypertension Coronary artery disease involving [place] coronary artery of [place] heart without angina pectoris Gastroesophageal reflux disease without esophagitis Esophageal reflux Okwbb-0-ajefmxhbflqgjugf deficiency Microscopic hematuria Current smoker Elevated alkaline phosphatase level Hx of colonoscopy with polypectomy Controlled type 2 diabetes mellitus without complication, without long-term current use of insulin (HCC)- Primary UTI symptoms Acute cystitis without hematuria Vaginal bleeding Other specified noninflammatory disorder of vagina Vaginal discharge Leukorrhea, not specified as infective Mixed hyperlipidemia Mixed hyperlipidemia Chronic obstructive pulmonary disease, unspecified COPD type (HCC) Gastroesophageal reflux disease without esophagitis Esophageal reflux Other specified hypothyroidism Primary hypertension Unspecified essential hypertension Seasonal allergic rhinitis due to pollen Controlled type 2 diabetes mellitus without complication, without long-term current use of insulin (HCC)- Primary Type 2 diabetes mellitus with diabetic chronic kidney disease (HCC) Chronic kidney disease, stage 2 (mild) Mpbjp-8-uoiyankarea deficiency (HCC) Tanqu-8-jobqdyrowxf deficiency Mixed hyperlipidemia Mixed hyperlipidemia Chronic obstructive pulmonary disease, unspecified COPD type (HCC) Gastroesophageal reflux disease without esophagitis Esophageal reflux Other specified hypothyroidism Primary hypertension Unspecified essential hypertension Seasonal allergic rhinitis due to pollen 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 Tobacco use disorder Coronary artery disease involving [place] coronary artery of [place] heart without angina pectoris Abdominal aortic pulsation Acute bilateral low back pain without sciatica Acute bilateral low back pain without sciatica- Primary Cigarette nicotine dependence with nicotine-induced disorder Primary hypertension Unspecified essential hypertension Abdominal aortic pulsation Screening for lung cancer 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 Tobacco use disorder Lower abdominal pain- Primary Abdominal pain, other specified site Type 2 diabetes mellitus with diabetic chronic kidney disease (HCC) Chronic kidney disease, stage 3a (CMS-HCC) Ormkt-3-yawfjfzuzse deficiency (HCC) Sonmm-9-iqmqliasylb deficiency Type 2 diabetes mellitus with diabetic polyneuropathy (HCC) Chronic obstructive pulmonary disease, unspecified COPD type (HCC) Coronary artery disease involving [place] coronary artery of [place] heart without angina pectoris Primary hypertension Unspecified essential hypertension Gastroesophageal reflux disease without esophagitis Esophageal reflux Controlled type 2 diabetes mellitus without complication, without long-term current use of insulin (HCC) Mixed hyperlipidemia Mixed hyperlipidemia Elevated alkaline phosphatase level Cigarette nicotine dependence with nicotine-induced disorder Vaginal bleeding Other specified noninflammatory disorder of vagina Seasonal allergic rhinitis due to pollen Colovaginal fistula Colovaginal fistula- Primary Cigarette nicotine dependence with nicotine-induced disorder Type 2 diabetes mellitus with diabetic polyneuropathy, without long-term current use of insulin (HCC) Primary hypertension Unspecified essential hypertension Chronic kidney disease, stage 3a (CMS-HCC) Type 2 diabetes mellitus with chronic kidney disease, without long-term current use of insulin, unspecified CKD stage (HCC) Gastroesophageal reflux disease without esophagitis Esophageal reflux Mixed hyperlipidemia Mixed hyperlipidemia Chronic obstructive pulmonary disease, unspecified COPD type (HCC) Other specified hypothyroidism Seasonal allergic rhinitis due to pollen Type 2 diabetes mellitus with chronic kidney disease, without long-term current use of insulin, unspecified CKD stage (HCC)- Primary Primary hypertension Unspecified essential hypertension Coronary artery disease involving [place] coronary artery of [place] heart without angina pectoris Vaginal bleeding Other specified noninflammatory disorder of vagina Chronic kidney disease, stage 3a ([facility]-HCC) Medical non-compliance Breast cancer screening by mammogram Cigarette nicotine dependence with nicotine-induced disorder Other specified hypothyroidism documented in this encounter [facility] HealthcareEvaluation note* Diagnosis Controlled type 2 diabetes mellitus without complication, without long-term current use of insulin (HCC)- Primary Type 2 diabetes mellitus with diabetic chronic kidney disease (HCC) Chronic kidney disease, stage 3a (CMS-HCC) Chronic obstructive pulmonary disease, unspecified (HCC) Zfwqy-4-dxgolcamngp deficiency (HCC) Jttfp-2-tfinehoesns deficiency Centrilobular emphysema (HCC) Primary hypertension Unspecified essential hypertension Coronary artery disease involving [place] coronary artery of [place] heart without angina pectoris Gastroesophageal reflux disease without esophagitis Esophageal reflux Yzken-2-tvdhjwnwdwukrnei deficiency Microscopic hematuria Current smoker Elevated alkaline phosphatase level Hx of colonoscopy with polypectomy Controlled type 2 diabetes mellitus without complication, without long-term current use of insulin (HCC)- Primary UTI symptoms Acute cystitis without hematuria Vaginal bleeding Other specified noninflammatory disorder of vagina Vaginal discharge Leukorrhea, not specified as infective Mixed hyperlipidemia Mixed hyperlipidemia Chronic obstructive pulmonary disease, unspecified COPD type (HCC) Gastroesophageal reflux disease without esophagitis Esophageal reflux Other specified hypothyroidism Primary hypertension Unspecified essential hypertension Seasonal allergic rhinitis due to pollen Controlled type 2 diabetes mellitus without complication, without long-term current use of insulin (HCC)- Primary Type 2 diabetes mellitus with diabetic chronic kidney disease (HCC) Chronic kidney disease, stage 2 (mild) Kxlst-6-eeqscmihnsy deficiency (HCC) Lnupp-4-hgfzokmhtqx deficiency Mixed hyperlipidemia Mixed hyperlipidemia Chronic obstructive pulmonary disease, unspecified COPD type (HCC) Gastroesophageal reflux disease without esophagitis Esophageal reflux Other specified hypothyroidism Primary hypertension Unspecified essential hypertension Seasonal allergic rhinitis due to pollen 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 Tobacco use disorder Coronary artery disease involving [place] coronary artery of [place] heart without angina pectoris Abdominal aortic pulsation Acute bilateral low back pain without sciatica Acute bilateral low back pain without sciatica- Primary Cigarette nicotine dependence with nicotine-induced disorder Primary hypertension Unspecified essential hypertension Abdominal aortic pulsation Screening for lung cancer 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 Tobacco use disorder Lower abdominal pain- Primary Abdominal pain, other specified site Type 2 diabetes mellitus with diabetic chronic kidney disease (HCC) Chronic kidney disease, stage 3a (CMS-HCC) Psisc-2-gbbwjncammf deficiency (HCC) Miwrs-8-qjloirorxzo deficiency Type 2 diabetes mellitus with diabetic polyneuropathy (HCC) Chronic obstructive pulmonary disease, unspecified COPD type (HCC) Coronary artery disease involving [place] coronary artery of [place] heart without angina pectoris Primary hypertension Unspecified essential hypertension Gastroesophageal reflux disease without esophagitis Esophageal reflux Controlled type 2 diabetes mellitus without complication, without long-term current use of insulin (HCC) Mixed hyperlipidemia Mixed hyperlipidemia Elevated alkaline phosphatase level Cigarette nicotine dependence with nicotine-induced disorder Vaginal bleeding Other specified noninflammatory disorder of vagina Seasonal allergic rhinitis due to pollen Colovaginal fistula Colovaginal fistula- Primary Cigarette nicotine dependence with nicotine-induced disorder Type 2 diabetes mellitus with diabetic polyneuropathy, without long-term current use of insulin (HCC) Primary hypertension Unspecified essential hypertension Chronic kidney disease, stage 3a (CMS-HCC) Type 2 diabetes mellitus with chronic kidney disease, without long-term current use of insulin, unspecified CKD stage (HCC) Gastroesophageal reflux disease without esophagitis Esophageal reflux Mixed hyperlipidemia Mixed hyperlipidemia Chronic obstructive pulmonary disease, unspecified COPD type (HCC) Other specified hypothyroidism Seasonal allergic rhinitis due to pollen Type 2 diabetes mellitus with chronic kidney disease, without long-term current use of insulin, unspecified CKD stage (HCC)- Primary Primary hypertension Unspecified essential hypertension Coronary artery disease involving [place] coronary artery of [place] heart without angina pectoris Vaginal bleeding Other specified noninflammatory disorder of vagina Chronic kidney disease, stage 3a (CMS-HCC) Medical non-compliance Breast cancer screening by mammogram Cigarette nicotine dependence with nicotine-induced disorder Other specified hypothyroidism Primary hypertension- Primary Unspecified essential hypertension Mixed hyperlipidemia Mixed hyperlipidemia Chronic obstructive pulmonary disease, unspecified COPD type (HCC) Controlled type 2 diabetes mellitus without complication, without long-term current use of insulin (HCC) Other specified hypothyroidism Seasonal allergic rhinitis due to pollen Gastroesophageal reflux disease without esophagitis Esophageal reflux Vitamin D deficiency Hypokalemia Hypopotassemia documented in this encounter [facility] HealthcareEvaluation note* Diagnosis Controlled type 2 diabetes mellitus without complication, without long-term current use of insulin (HCC)- Primary Type 2 diabetes mellitus with diabetic chronic kidney disease (HCC) Chronic kidney disease, stage 3a (CMS-HCC) Chronic obstructive pulmonary disease, unspecified (HCC) Frkkq-9-yakwqisnpvr deficiency (HCC) Ejrsw-6-atzcjlxpbpl deficiency Centrilobular emphysema (HCC) Primary hypertension Unspecified essential hypertension Coronary artery disease involving [place] coronary artery of [place] heart without angina pectoris Gastroesophageal reflux disease without esophagitis Esophageal reflux Bgulw-8-txpxnxmbfzrtkumb deficiency Microscopic hematuria Current smoker Elevated alkaline phosphatase level Hx of colonoscopy with polypectomy Controlled type 2 diabetes mellitus without complication, without long-term current use of insulin (HCC)- Primary UTI symptoms Acute cystitis without hematuria Vaginal bleeding Other specified noninflammatory disorder of vagina Vaginal discharge Leukorrhea, not specified as infective Mixed hyperlipidemia Mixed hyperlipidemia Chronic obstructive pulmonary disease, unspecified COPD type (HCC) Gastroesophageal reflux disease without esophagitis Esophageal reflux Other specified hypothyroidism Primary hypertension Unspecified essential hypertension Seasonal allergic rhinitis due to pollen Controlled type 2 diabetes mellitus without complication, without long-term current use of insulin ([facility])- Primary Type 2 diabetes mellitus with diabetic chronic kidney disease (HCC) Chronic kidney disease, stage 2 (mild) Heiud-1-msvvfdbewko deficiency (HCC) Pwjna-1-tkbibnmavgk deficiency Mixed hyperlipidemia Mixed hyperlipidemia Chronic obstructive pulmonary disease, unspecified COPD type (HCC) Gastroesophageal reflux disease without esophagitis Esophageal reflux Other specified hypothyroidism Primary hypertension Unspecified essential hypertension Seasonal allergic rhinitis due to pollen 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 Tobacco use disorder Coronary artery disease involving [place] coronary artery of [place] heart without angina pectoris Abdominal aortic pulsation Acute bilateral low back pain without sciatica Acute bilateral low back pain without sciatica- Primary Cigarette nicotine dependence with nicotine-induced disorder Primary hypertension Unspecified essential hypertension Abdominal aortic pulsation Screening for lung cancer 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 Tobacco use disorder Lower abdominal pain- Primary Abdominal pain, other specified site Type 2 diabetes mellitus with diabetic chronic kidney disease (HCC) Chronic kidney disease, stage 3a (CMS-HCC) Jbkjm-2-tdmedevfumi deficiency (HCC) Bqgsk-5-erkveglifgq deficiency Type 2 diabetes mellitus with diabetic polyneuropathy (HCC) Chronic obstructive pulmonary disease, unspecified COPD type (HCC) Coronary artery disease involving [place] coronary artery of [place] heart without angina pectoris Primary hypertension Unspecified essential hypertension Gastroesophageal reflux disease without esophagitis Esophageal reflux Controlled type 2 diabetes mellitus without complication, without long-term current use of insulin (HCC) Mixed hyperlipidemia Mixed hyperlipidemia Elevated alkaline phosphatase level Cigarette nicotine dependence with nicotine-induced disorder Vaginal bleeding Other specified noninflammatory disorder of vagina Seasonal allergic rhinitis due to pollen Colovaginal fistula Colovaginal fistula- Primary Cigarette nicotine dependence with nicotine-induced disorder Type 2 diabetes mellitus with diabetic polyneuropathy, without long-term current use of insulin (HCC) Primary hypertension Unspecified essential hypertension Chronic kidney disease, stage 3a (CMS-HCC) Type 2 diabetes mellitus with chronic kidney disease, without long-term current use of insulin, unspecified CKD stage (HCC) Gastroesophageal reflux disease without esophagitis Esophageal reflux Mixed hyperlipidemia Mixed hyperlipidemia Chronic obstructive pulmonary disease, unspecified COPD type (HCC) Other specified hypothyroidism Seasonal allergic rhinitis due to pollen Type 2 diabetes mellitus with chronic kidney disease, without long-term current use of insulin, unspecified CKD stage (HCC)- Primary Primary hypertension Unspecified essential hypertension Coronary artery disease involving [place] coronary artery of [place] heart without angina pectoris Vaginal bleeding Other specified noninflammatory disorder of vagina Chronic kidney disease, stage 3a (CMS-HCC) Medical non-compliance Breast cancer screening by mammogram Cigarette nicotine dependence with nicotine-induced disorder Other specified hypothyroidism Microscopic hematuria- Primary Colovaginal fistula Elevated alkaline phosphatase level documented in this encounter [facility] HealthcareEvaluation note* Diagnosis Controlled type 2 diabetes mellitus without complication, without long-term current use of insulin (HCC)- Primary Type 2 diabetes mellitus with diabetic chronic kidney disease (HCC) Chronic kidney disease, stage 3a (CMS-HCC) Chronic obstructive pulmonary disease, unspecified (HCC) Kubcs-0-ivvtnyedtpz deficiency (HCC) Vnkmv-1-zfpdkqhljhy deficiency Centrilobular emphysema (HCC) Primary hypertension Unspecified essential hypertension Coronary artery disease involving [place] coronary artery of [place] heart without angina pectoris Gastroesophageal reflux disease without esophagitis Esophageal reflux Ewqob-7-xeuipebcdhbwbczw deficiency Microscopic hematuria Current smoker Elevated alkaline phosphatase level Hx of colonoscopy with polypectomy Controlled type 2 diabetes mellitus without complication, without long-term current use of insulin (HCC)- Primary UTI symptoms Acute cystitis without hematuria Vaginal bleeding Other specified noninflammatory disorder of vagina Vaginal discharge Leukorrhea, not specified as infective Mixed hyperlipidemia Mixed hyperlipidemia Chronic obstructive pulmonary disease, unspecified COPD type (HCC) Gastroesophageal reflux disease without esophagitis Esophageal reflux Other specified hypothyroidism Primary hypertension Unspecified essential hypertension Seasonal allergic rhinitis due to pollen Controlled type 2 diabetes mellitus without complication, without long-term current use of insulin (HCC)- Primary Type 2 diabetes mellitus with diabetic chronic kidney disease (HCC) Chronic kidney disease, stage 2 (mild) Lfwcu-8-xcbwaqlhrdj deficiency (HCC) Hhzut-2-rpixrihrrbe deficiency Mixed hyperlipidemia Mixed hyperlipidemia Chronic obstructive pulmonary disease, unspecified COPD type (HCC) Gastroesophageal reflux disease without esophagitis Esophageal reflux Other specified hypothyroidism Primary hypertension Unspecified essential hypertension Seasonal allergic rhinitis due to pollen 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 Tobacco use disorder Coronary artery disease involving [place] coronary artery of [place] heart without angina pectoris Abdominal aortic pulsation Acute bilateral low back pain without sciatica Acute bilateral low back pain without sciatica- Primary Cigarette nicotine dependence with nicotine-induced disorder Primary hypertension Unspecified essential hypertension Abdominal aortic pulsation Screening for lung cancer 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 Tobacco use disorder Lower abdominal pain- Primary Abdominal pain, other specified site Type 2 diabetes mellitus with diabetic chronic kidney disease (HCC) Chronic kidney disease, stage 3a (CMS-HCC) Upqpl-1-hmrrbcbehwl deficiency (HCC) Ionzm-4-jqtzyqzbxqx deficiency Type 2 diabetes mellitus with diabetic polyneuropathy (HCC) Chronic obstructive pulmonary disease, unspecified COPD type (HCC) Coronary artery disease involving [place] coronary artery of [place] heart without angina pectoris Primary hypertension Unspecified essential hypertension Gastroesophageal reflux disease without esophagitis Esophageal reflux Controlled type 2 diabetes mellitus without complication, without long-term current use of insulin (HCC) Mixed hyperlipidemia Mixed hyperlipidemia Elevated alkaline phosphatase level Cigarette nicotine dependence with nicotine-induced disorder Vaginal bleeding Other specified noninflammatory disorder of vagina Seasonal allergic rhinitis due to pollen Colovaginal fistula Colovaginal fistula- Primary Cigarette nicotine dependence with nicotine-induced disorder Type 2 diabetes mellitus with diabetic polyneuropathy, without long-term current use of insulin (HCC) Primary hypertension Unspecified essential hypertension Chronic kidney disease, stage 3a (CMS-HCC) Type 2 diabetes mellitus with chronic kidney disease, without long-term current use of insulin, unspecified CKD stage (HCC) Gastroesophageal reflux disease without esophagitis Esophageal reflux Mixed hyperlipidemia Mixed hyperlipidemia Chronic obstructive pulmonary disease, unspecified COPD type (HCC) Other specified hypothyroidism Seasonal allergic rhinitis due to pollen Type 2 diabetes mellitus with chronic kidney disease, without long-term current use of insulin, unspecified CKD stage (HCC)- Primary Primary hypertension Unspecified essential hypertension Coronary artery disease involving [place] coronary artery of [place] heart without angina pectoris Vaginal bleeding Other specified noninflammatory disorder of vagina Chronic kidney disease, stage 3a (CMS-HCC) Medical non-compliance Breast cancer screening by mammogram Cigarette nicotine dependence with nicotine-induced disorder Other specified hypothyroidism Gastroesophageal reflux disease without esophagitis- Primary Esophageal reflux documented in this encounter [facility] HealthcareEvaluation note* Diagnosis Controlled type 2 diabetes mellitus without complication, without long-term current use of insulin (HCC)- Primary Type 2 diabetes mellitus with diabetic chronic kidney disease (HCC) Chronic kidney disease, stage 3a (CMS-HCC) Chronic obstructive pulmonary disease, unspecified (HCC) Nyvmw-4-utwlsvzrxpf deficiency (HCC) Hajcj-9-tqiwkbsvewl deficiency Centrilobular emphysema (HCC) Primary hypertension Unspecified essential hypertension Coronary artery disease involving [place] coronary artery of [place] heart without angina pectoris Gastroesophageal reflux disease without esophagitis Esophageal reflux Gsrep-9-eyxamqvckiycwoco deficiency Microscopic hematuria Current smoker Elevated alkaline phosphatase level Hx of colonoscopy with polypectomy Controlled type 2 diabetes mellitus without complication, without long-term current use of insulin (HCC)- Primary UTI symptoms Acute cystitis without hematuria Vaginal bleeding Other specified noninflammatory disorder of vagina Vaginal discharge Leukorrhea, not specified as infective Mixed hyperlipidemia Mixed hyperlipidemia Chronic obstructive pulmonary disease, unspecified COPD type (HCC) Gastroesophageal reflux disease without esophagitis Esophageal reflux Other specified hypothyroidism Primary hypertension Unspecified essential hypertension Seasonal allergic rhinitis due to pollen Controlled type 2 diabetes mellitus without complication, without long-term current use of insulin (HCC)- Primary Type 2 diabetes mellitus with diabetic chronic kidney disease (HCC) Chronic kidney disease, stage 2 (mild) Hjysx-2-bawdnoupmxz deficiency (HCC) Bfdfp-7-wnvigadyhkg deficiency Mixed hyperlipidemia Mixed hyperlipidemia Chronic obstructive pulmonary disease, unspecified COPD type (HCC) Gastroesophageal reflux disease without esophagitis Esophageal reflux Other specified hypothyroidism Primary hypertension Unspecified essential hypertension Seasonal allergic rhinitis due to pollen 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 Tobacco use disorder Coronary artery disease involving [place] coronary artery of [place] heart without angina pectoris Abdominal aortic pulsation Acute bilateral low back pain without sciatica Acute bilateral low back pain without sciatica- Primary Cigarette nicotine dependence with nicotine-induced disorder Primary hypertension Unspecified essential hypertension Abdominal aortic pulsation Screening for lung cancer 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 Tobacco use disorder Lower abdominal pain- Primary Abdominal pain, other specified site Type 2 diabetes mellitus with diabetic chronic kidney disease (HCC) Chronic kidney disease, stage 3a (CMS-HCC) Paqhl-0-xojqpqnifml deficiency (HCC) Rialp-2-iujhapgtguk deficiency Type 2 diabetes mellitus with diabetic polyneuropathy (HCC) Chronic obstructive pulmonary disease, unspecified COPD type (HCC) Coronary artery disease involving [place] coronary artery of [place] heart without angina pectoris Primary hypertension Unspecified essential hypertension Gastroesophageal reflux disease without esophagitis Esophageal reflux Controlled type 2 diabetes mellitus without complication, without long-term current use of insulin (HCC) Mixed hyperlipidemia Mixed hyperlipidemia Elevated alkaline phosphatase level Cigarette nicotine dependence with nicotine-induced disorder Vaginal bleeding Other specified noninflammatory disorder of vagina Seasonal allergic rhinitis due to pollen Colovaginal fistula Colovaginal fistula- Primary Cigarette nicotine dependence with nicotine-induced disorder Type 2 diabetes mellitus with diabetic polyneuropathy, without long-term current use of insulin (HCC) Primary hypertension Unspecified essential hypertension Chronic kidney disease, stage 3a (CMS-HCC) Type 2 diabetes mellitus with chronic kidney disease, without long-term current use of insulin, unspecified CKD stage (HCC) Gastroesophageal reflux disease without esophagitis Esophageal reflux Mixed hyperlipidemia Mixed hyperlipidemia Chronic obstructive pulmonary disease, unspecified COPD type (HCC) Other specified hypothyroidism Seasonal allergic rhinitis due to pollen Type 2 diabetes mellitus with chronic kidney disease, without long-term current use of insulin, unspecified CKD stage (HCC)- Primary Primary hypertension Unspecified essential hypertension Coronary artery disease involving [place] coronary artery of [place] heart without angina pectoris Vaginal bleeding Other specified noninflammatory disorder of vagina Chronic kidney disease, stage 3a (CMS-HCC) Medical non-compliance Breast cancer screening by mammogram Cigarette nicotine dependence with nicotine-induced disorder Other specified hypothyroidism Gastroesophageal reflux disease without esophagitis- Primary Esophageal reflux Nausea and vomiting, unspecified vomiting type documented in this encounter [facility]ructionsNot on filedocumented [facility] Purpose Family History No Family History Records FoundUnknown Family Member Name Dates Details FH: diabetes mellitus: Mothe r, Father(V18.0, Z83.3) Status:Active Family history of malignant neoplasm: Mother, Father(V16.9, Z80.9) Status:Active Heart problem: Mother, Fathe r Status:Active Unknown Family Member Name Dates Details FH: diabetes mellitus: Mothe r, Father(V18.0, Z83.3) Status:Active Family history of malignant neoplasm: Mother, Father(V16.9, Z80.9) Status:Active Heart problem: Mother, Fathe r Status:Active Unknown Family Member Name Dates Details FH: diabetes mellitus: Mothe r, Father(V18.0, Z83.3) Status:Active Family history of malignant neoplasm: Mother, Father(V16.9, Z80.9) Status:Active Heart problem: Mother, Fathe r Status:Active Unknown Family Member Name Dates Details FH: diabetes mellitus: Eva lopez, Father(V18.0, Z83.3) Status:Active Family history of malignant neoplasm: Mother, Father(V16.9, Z80.9) Status:Active Heart problem: Anel Lyons Status:Active Advance Directives No Advanced Directives Records [...] for follow-up. She had inferior ST elevation AL with primary revascularization of the RCA in [...] She has a history of previous inferior AL in February 2021 (late presenting AL) with PCI of the RCA at that [...] year, recommend tobacco cessation strongly, discontinue clopidogrel Reason for Referral Specialty Diagnoses / Procedures Referred By Wil valencia Referred To Contact Diagnoses Chronic obstructive pulmonary disease, unspecified COPD type (CMS/HCC) Veronique Harris, ANNA [address] [place] [address] Referral ID Status Reason Start Date Expiration Date V isits Requested Visits Authorized [id number] Pending Review 1 1 Additional Source Comments INFORMATION SOURCE (unrecogn ized section and content) DATE CREATED AUTHOR 03/22/2018 [facility] DATE CREATED AUTHOR AUTHOR'S ORGANIZ ATION 04/18/2018 [facility] DATE CREATED AUTHOR AUTHOR'S ORGANIZ ATION [facility]/18/[facility] DATE CREATED AUTHOR AUTHOR'S ORGANIZ ATION 08/21/2021 [facility] DATE CREATED AUTHOR AUTHOR'S ORGANIZ ATION 10/19/2021 [facility] DATE CREATED AUTHOR AUTHOR'S ORGANIZ ATION 10/06/[address] [facility] DATE CREATED AUTHOR AUTHOR'S ORGANIZ ATION 10/07/2022 [facility] DATE CREATED AUTHOR AUTHOR'S ORGANIZ ATION 01/21/2023 [facility] DATE CREATED AUTHOR AUTHOR'S ORGANIZ ATION 01/18/2024 [facility] DATE CREATED AUTHOR AUTHOR'S ORGANIZ ATION 07/22/2024 [facility] DATE CREATED AUTHOR AUTHOR'S ORGANIZ ATION 04/09/2025 [facility] EPIC DATE CREATED AUTHOR AUTHOR'S ORGANIZ ATION 05/06/2025 [facility] Reason for Visit (unrecogniz ed section and content) Reason Onset Date Comments Med Refill 07/05/2024 Reason Comments Med Refill Reason Comments 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 Bothersome for about a month, denies drainage. PCP: Veronique Stratton LV 08/16/24, A1C: 6.0, BS: doesn't check Reason Onset Date Comments Med Refill Results 01/01/2025 Denial of MRI Reason Comments DM Foot Care Pt is here today for diabetic foot careBS: Doesn't check A1C: 6.5Lv Dr. Deluca 01-04-2025SS: 8-8.5 Reason Comments Diabetes Reason Onset Date Comments No Shows 04/11/2025 Recent History o f No Shows Care Teams (unrecognized sec tion and content) Tool Engine Lathe Set Up Operator Relationship Specialty Start Date End Date Stuart Deluca MD [address] [place] [phone] PCP - General Family Medicine 03/17/23 Veronique Harris, ANNA [address] [place] [address] PCP - [facility] 03/27/24 Tool Engine Lathe Set Up Operator Relationship Specialty Start Date End Date Stuart Deluca MD [address] [place] [address] PCP - General Family Medicine 03/17/23 Veronique Harris NP [address] [place] [phone] PCP - [facility] 03/27/24 Jany Saini LSW Mailing Manager Family Medicine 07/25/24 07/27/24 Marta Doll LPN [address] [place] [address] Licensed Practical Nurse Family Medicine 07/27/24 Tool Engine Lathe Set Up Operator Relationship Specialty Start Date End Date Stuart Deluca MD [address] [place] [address] PCP - General Family Medicine 03/17/23 Veronique Harris NP [address] [place] [address] PCP - [facility] 03/27/24 Jany Saini, JADE Mailing Manager Family Medicine 07/25/24 07/27/24 Marta Doll, COIL MACHINE OPERATOR [address] [place] [address] Licensed Practical Nurse Family Medicine 07/27/24 Tool Engine Lathe Set Up Operator Relationship Specialty Start Date End Date Stuart Deluca MD [address] [place] [address] PCP - General Family Medicine 03/17/23 Veronique Harris NP [address] [place] [address] PCP - [facility] 03/27/24 Jb Valdez MA Family Medicine 07/27/24 Tool Engine Lathe Set Up Operator Relationship Specialty Start Date End Date Stuart Deluca MD [address] [place] [address] PCP - General Family Medicine 03/17/23 Veronique Harris NP [address] [place] [address] PCP - [facility] 03/27/24 Jb Valdez MA Family Medicine 07/27/24 Tool Engine Lathe Set Up Operator Relationship Specialty Start Date End Date Stuart Deluca MD [address] [place] [address] PCP - General Family Medicine 03/17/23 Veronique Harris NP [address] [place] [address] PCP - [facility] 03/27/24 Jb Valdez MA Family [facility] 07/27/24 Tool Engine Lathe Set Up Operator Relationship Specialty Start Date End Date Stuart Deluca MD [address] [place] [address] PCP - [facility] 03/17/23 Veronique Harris NP [address] [place] [address] PCP - [facility] 03/27/24 Jb Valdez MA Family Medicine 07/27/24 Tool Engine Lathe Set Up Operator Relationship Specialty Start Date End Date Stuart Deluca MD [address] [place] [address] PCP - [facility] 03/17/23 Veronique Harris NP [address] [place] [address] PCP - [facility] 03/27/24 Tool Engine Lathe Set Up Operator Relationship Specialty Start Date End Date Stuart Deluca MD [address] [place] [address] PCP - [facility] 03/17/23 Veronique Harris NP [address] [place] [address] PCP - [facility] 03/27/24 Tool Engine Lathe Set Up Operator Relationship Specialty Start Date End Date Stuart Deluca MD [address] [place] [address] PCP - General Family Medicine 03/17/23 Veronique Harris NP [address] [place] [address] PCP - [facility] 03/27/24 Tool Engine Lathe Set Up Operator Relationship Specialty Start Date End Date Sutart Deluca MD [address] [place] [address] PCP - General Family Medicine 03/17/23 Veronique Harris NP [address] [place] [address] PCP - [facility] 03/27/24 Jb Valdez MA Family Medicine 07/27/24 Tool Engine Lathe Set Up Operator Relationship Specialty Start Date End Date Stuart Deluca MD [address] [place] [address] PCP - General Family Medicine 03/17/23 Veronique Harris NP [address] [place] [address] PCP - [facility] 03/27/24 Jb Valdez MA Family Medicine 07/27/24 Tool Engine Lathe Set Up Operator Relationship Specialty Start Date End Date Stuart Deluca MD [address] [place] [address] PCP - General Family Medicine 03/17/23 Veronique Harris NP [address] [place] [address] PCP - [facility] 03/27/24 Jb Valdez MA Family Medicine 07/27/24 Tool Engine Lathe Set Up Operator Relationship Specialty Start Date End Date Stuart Deluca MD [address] [place] [address] PCP - General Family Medicine 03/17/23 Veronique Harris NP [address] [place] [address] PCP - [facility] 03/27/24 Jb Valdez MA [facility] 07/27/24 Tool Engine Lathe Set Up Operator Relationship Specialty Start Date End Date Stuart Deluca MD [address] [place] [address] PCP - [facility] 03/17/23 Veronique Harris NP [address] [place] [address] PCP - [facility] 03/27/24 Jb Valdez MA Family Medicine 07/27/24 Tool Engine Lathe Set Up Operator Relationship Specialty Start Date End Date Stuart Deluca MD [address] [place] [address] PCP - General Family [facility] 03/17/23 Veronique Harris NP [address] [place] [address] PCP - [facility] 03/27/24 Jb Valdez MA Family Medicine 07/27/24 Tool Engine Lathe Set Up Operator Relationship Specialty Start Date End Date Stuart Deluca MD [address] [place] [address] PCP - General Family Medicine 03/17/23 Veronique Harris NP [address] [place] [address] PCP - [facility] 03/27/24 Jb Valdez MA Family [facility] 07/27/24 Tool Engine Lathe Set Up Operator Relationship Specialty Start Date End Date Stuart Deluca MD [address] [place] [address] PCP - [facility] 03/17/23 Veronique Harris NP [address] [place] [address] PCP - [facility] 03/27/24 Jb Valdez MA Family [facility] 07/27/24 Tool Engine Lathe Set Up Operator Relationship Specialty Start Date End Date Stuart Deluca MD [address] [place] [address] PCP - General Family Medicine 03/17/23 Veronique Harris NP [address] [place] [address] PCP - [facility] 03/27/24 Jb Valdez MA Family [facility] 07/27/24 Tool Engine Lathe Set Up Operator Relationship Specialty Start Date End Date Stuart Deluca MD [address] [place] [address] PCP - General Family Medicine 03/17/23 Vernoique Harris NP [address] [place] [address] PCP - [facility] 03/27/24 Jb Valdez MA Family [facility] 07/27/24 Tool Engine Lathe Set Up Operator Relationship Specialty Start Date End Date Stuart Deluca MD [address] [place] [address] PCP - General Family [facility] 03/17/23 Veronique Harris NP [address] [place] [address] PCP - [facility] 03/27/24 Jb Valdez MA Family [facility] 07/27/24 Tool Engine Lathe Set Up Operator Relationship Specialty Start Date End Date Stuart Deluca MD [address] [place] [address] PCP - General Family Medicine 03/17/23 Veronique Harris NP [address] [place] [address] PCP - [facility] 03/27/24 Jb Valdez MA Family Medicine 07/27/24 Tool Engine Lathe Set Up Operator Relationship Specialty Start Date End Date Stuart Deluca MD [address] [place] [address] PCP - General Family Medicine 03/17/23 Veronique Harris NP [address] [place] [address] PCP - [facility] 03/27/24 Jb Valdez MA Family Medicine 07/27/24 Tool Engine Lathe Set Up Operator Relationship Specialty Start Date End Date Veronique Harris, TEMPERER-HISTORICAL RECORDS ADMINISTRATOR PCP - General Nurse Practitioner 07/20/24 Tool Engine Lathe Set Up Operator Relationship Specialty Start Date End Date Stuart Deluca MD [address] [place] [address] PCP - General Family Medicine 03/17/23 Veronique Harris NP [address] [place] [address] PCP - [facility] 03/27/24 Jb Valdez [place] [address] [place] [address] Family Medicine 07/27/24 Tool Engine Lathe Set Up Operator Relationship Specialty Start Date End Date Stuart Deluca MD [address] [place] [address] PCP - General Family Medicine 03/17/23 Veronique Harris NP [address] [place] [address] PCP - [facility] 03/27/24 Jb Valdez PR [address] [place] [address] Family Medicine 07/27/24 Tool Engine Lathe Set Up Operator Relationship Specialty Start Date End Date Stuart Deluca MD [address] [place] [address] PCP - General Family Medicine 03/17/23 Veronique Harris NP [address] [place] [address] PCP - [facility] 03/27/24 Jb Valdez MA [address] [place] [address] Family Medicine 07/27/24 Tool Engine Lathe Set Up Operator Relationship Specialty Start Date End Date Stuart Deluca MD [address] [place] [address] PCP - General Family [facility] 03/17/23 Veronique Harris NP [address] [place] [address] PCP - [facility] 03/27/24 Jb Valdez MA [address] [place] [address] Family Medicine 07/27/24 Tool Engine Lathe Set Up Operator Relationship Specialty Start Date End Date Stuart Deluca MD [address] [place] [address] PCP - General Family [facility] 03/17/23 Veronique Harris NP [address] [place] [address] PCP - [facility] 03/27/24 Jb Valdez MA [address] [place] [address] Family Medicine 07/27/24 Tool Engine Lathe Set Up Operator Relationship Specialty Start Date End Date Stuart Deluca MD [address] [place] [address] PCP - General Family Medicine 03/17/23 Veronique Harris NP [address] [place] [address] PCP - [facility] 03/27/24 Jb Valdez MA [address] [place] [address] Family Medicine 07/27/24 Tool Engine Lathe Set Up Operator Relationship Specialty Start Date End Date Stuart Deluca MD [address] [place] [address] PCP - General Family Medicine 03/17/23 Veronique Harris NP [address] [place] [address] PCP - [facility] 03/27/24 Jb Valdez MA [address] [place] [address] Family Medicine 07/27/24 Tool Engine Lathe Set Up Operator Relationship Specialty Start Date End Date Stuart Deluca MD [address] [place] [address] PCP - General Family Medicine 03/17/23 Veronique Harris NP [address] [place] [address] PCP - [facility] 03/27/24 Jb Valdez MA [address] [place] [address] Family Medicine 07/27/24 Tool Engine Lathe Set Up Operator Relationship Specialty Start Date End Date Stuart Deluca MD [address] [place] [address] PCP - General Family Medicine 03/17/23 Veronique Harris NP [address] [place] [address] PCP - [facility] 03/27/24 Jb Valdez MA [address] [place] [address] Family [facility] 07/27/24 FOR RECORDS PERTAINING TO PATIENTS WHO ARE [...] BE BASED ON THE PRIMARY CLINICAL RECORDS. [facility]. provides no warranty or guarantee of the accuracy or completeness of information in this document.
--- NOTE | 2025-05-09 09:02 | CT_ITS ---
The [address] [address] Patient Name: FAUSTO KRISHNAMURTHY MRN: [id number] date: 1960 Sex: F Assigned Patient Location: ER Current Patient Location: ER Accession/Order Number: [id number] Exam Date: 05/09/2025 10:13 Report Date: 05/09/2025 10:18 At the request of: RENY CHAIDEZ MD Procedure: CT abdomen pelvis wo con CT ABDOMEN AND PELVIS WITHOUT INTRAVENOUS CONTRAST: CLINICAL HISTORY: vomit/diarrhea, history of rectovaginal fistula COMPARISON: CT abdomen and pelvis 06/21/2019 TECHNIQUE: Spiral images were obtained through the abdomen and pelvis without intravenous contrast. This CT exam was performed using one or more following dose reduction techniques: Automated exposure control, adjustment of the mA and/or kV according to patient size, or use of iterative reconstruction technique. FINDINGS: Lung Bases: [Bibasilar atelectasis.] Organs:Suboptimal evaluation due to lack of IV contrast. Liver spleen pancreas and adrenal glands all appear unremarkable. Gallbladder has been removed. Kidneys demonstrate no stone or hydronephrosis. Abdominal aorta appears normal in caliber.[ GI: Stomach is grossly unremarkable. Small bowel appears nondilated. Wall thickening involving the distal small bowel. There is diffuse wall thickening involving the colon suggestive of colitis.[ Pelvis:[Urinary bladder appears unremarkable. Uterus has been removed. Peritoneum/Retroperitoneum:No free air or free fluid or lymphadenopathy.[ Abd wall/Bones:Abdominal wall demonstrate no acute findings. Osseous structures demonstrate degenerative change.[ CT/CT abdomen pelvis wo con IMPRESSION: Wall thickening involving the distal small bowel and colon suspicious for ileitis/colitis. No obstruction. Impression dictated by: Rupert Paez Jr., D.O. 05/09/2025 10:18 AM Dictation Location: [email or web address] Electronically authenticated by: [id number] Y Date: 05/09/2025 10:18
--- NOTE | 2025-05-09 09:05 | ED.GENADUL1 ---
HPI HPI - General Adult General Chief complaint: Nausea/Vomiting/Diarrhea Stated complaint: DIARRHEA VOMITING WEAKNESS Time Seen by Provider: 05/09/25 08:52 Source: patient Mode of arrival: walk-in Limitations: no limitations History of Present Illness HPI narrative: 64-year-old female presented to the emergency department for vomiting and diarrhea. She states she has been having this every day for 3 weeks. She has a history of a rectovaginal fistula and states recently some stool is coming out her vagina. No melena or hematochezia or hematemesis and she has not had a fever. Related Data Home Medications ?Medication ?Instructions ?Recorded ?Confirmed atorvastatin 80 mg tablet 80 mg PO DAILY 05/09/25 05/09/25 cholecalciferol (vitamin D3) 50 50 mcg PO DAILY 05/09/25 05/09/25 mcg (2,000 unit) tablet cimetidine 200 mg tablet 200 mg PO Q12H 05/09/25 05/09/25 empagliflozin 25 mg tablet 25 mg PO DAILY 05/09/25 05/09/25 (Jardiance) levothyroxine 125 mcg tablet 125 mcg PO DAILY 05/09/25 05/09/25 lisinopril 40 mg tablet 40 mg PO DAILY 05/09/25 05/09/25 metoprolol tartrate 25 mg tablet 25 mg PO BID 05/09/25 05/09/25 montelukast 10 mg tablet 10 mg PO .QHS 05/09/25 05/09/25 ondansetron 4 mg disintegrating 4 mg PO Q6H PRN nausea and vomiting 05/09/25 05/09/25 tablet pantoprazole 40 mg tablet,delayed 40 mg PO Q12H 05/09/25 05/09/25 release pioglitazone 15 mg tablet 15 mg PO DAILY 05/09/25 05/09/25 Allergies Allergy/AdvReac Type Severity Reaction Status Date / Time Sulfa (Sulfonamide Allergy Anaphylaxis Verified 05/09/25 08:55 Antibiotics) Opioid HPI Opioid Management Most Recent Opioid Data: Last Pain Scale 9 Today, 08:51 Review of Systems ROS Narrative A ten point review of systems is negative except as noted above. PFSH PFSH Social History Little interest or pleasure in doing things: not at all Feeling down, depressed, or hopeless: not at all Exam Narrative Exam Narrative: Nurses note and vital signs reviewed and patient is not hypoxic. General: The patient appears in no apparent distress. Skin: Warm, dry, no pallor noted. There is no rash noted. Head: Normocephalic, atraumatic Eye: Normal conjunctiva, no drainage Ears, Nose, Mouth, and Throat: oral mucosa is moist. Nares patent. Cardiovascular: Regular Rate and Rhythm Respiratory: Patient is in no distress, no accessory muscle use, lungs are clear to auscultation, no wheezing, rales or rhonchi Back: non-tender GI: Soft and nondistended. Musculoskeletal: The patient has no evidence of calf tenderness, no pitting edema, symmetrical pulses noted bilaterally Neurological: A&O, normal speech Psychiatric: Cooperative Constitutional Vital Signs, click to edit/add: Last Vital Signs Temp 97.5 F L 05/09/25 08:51 Pulse 94 H 05/09/25 08:51 Resp 18 05/09/25 08:51 BP 100/57 05/09/25 08:51 Pulse Ox 92 L 05/09/25 08:51 O2 Del Method Room Air 05/09/25 08:51 Course Vital Signs Vital signs: Vital Signs Temperature 97.5 F L 05/09/25 08:51 Pulse Rate 94 H 05/09/25 08:51 Respiratory Rate 18 05/09/25 08:51 Blood Pressure 100/57 05/09/25 08:51 Pulse Oximetry 92 L 05/09/25 08:51 Oxygen Delivery Method Room Air 05/09/25 08:51 Temperature 97.5 F L 05/09/25 08:51 Pulse Rate 94 H 05/09/25 08:51 Respiratory Rate 18 05/09/25 08:51 Blood Pressure 100/57 05/09/25 08:51 Pulse Oximetry 92 L 05/09/25 08:51 Oxygen Delivery Method Room Air 05/09/25 08:51 Medical Decision Making MDM Narrative Medical decision making narrative: The patient has acute kidney injury and CAT scan per radiologist shows colitis and ileitis. There appeared to be no complications from her rectovaginal fistula, no abscess. She was given IV fluids and is feeling improved and she was given IV Cipro and Flagyl and is being admitted. Treatment diagnosis and disposition were discussed with the patient. Differential Diagnosis Differential Diagnosis: Acute kidney injury, diverticulitis, abscess Lab Data Lab results reviewed: Yes I reviewed the patient's lab results Labs: Lab Results 05/09/25 Range/Units 09:04 WBC 9.7 (4.0-11.0) 10^3/uL RBC 5.26 (4.20-5.40) 10^6/uL Hgb 15.8 (12.0-16.0) g/dL Hct 47.1 (36.0-48.0) % MCV 89.5 (81.0-99.0) fL MCH 30.0 (26.7-34.0) pg MCHC 33.5 (29.9-35.2) g/dL RDW 13.5 (11.0-15.0) % Plt Count 249 (150-450) 10^3/uL MPV 12.4 (9.5-13.5) fL Seg Neuts % (Manual) 34.0 L (43.0-75.0) Band Neutrophils % 17.0 H (0-5) % Lymphocytes % (Manual) 19.0 L (20.5-60.0) % Monocytes % (Manual) 28.0 H (1.7-12.0) % Eosinophils % (Manual) 2.0 (0.9-7.0) % Basophils % (Manual) 0.0 L (0.2-2.0) % Neutrophils # (Manual) 3.29 (1.4-6.5) 10^3/uL Band Neutrophils # 1.6 H (0.0-0.3) 10^3/uL Lymphocytes # (Manual) 1.84 (1.20-3.80) 10^3/uL Monocytes # (Manual) 2.71 H (0.30-0.80) 10^3/uL Eosinophils # (Manual) 0.19 (0.00-0.70) 10^3/uL Basophils # (Manual) 0.00 (0.00-0.10) 10^3/uL Sodium 133 L (136-145) mmol/L Potassium 2.9 L* (3.5-5.1) mmol/L Chloride 94 L (98-107) mmol/L Carbon Dioxide 24.6 (21.0-32.0) mmol/L Anion Gap 17.3 BUN 55.0 H (7.0-18.0) mg/dL Creatinine 2.21 H (0.55-1.02) mg/dL Est GFR ( Amer) 27 L (>=60 mL/min/1.73m^2) Est GFR (Non-Af Amer) 22 L (>=60 mL/min/1.73m^2) BUN/Creatinine Ratio 24.9 Glucose 145 H (74-106) mg/dL Calcium 8.9 (8.5-10.1) mg/dL Imaging Data CT scan - abdomen: Radiologist's impression: ITS Impressions Abdomen/Pelvis CT 05/09/25 09:02 IMPRESSION: Wall thickening involving the distal small bowel and colon suspicious for ileitis/colitis. No obstruction. Impression dictated by: Girish Stock Jr.OChrista 05/09/2025 10:18 AM Dictation Location: [email or web address] Electronically authenticated by: [id number] Y Date: 05/09/2025 10:18 Discharge Plan Discharge Chief Complaint: Nausea/Vomiting/Diarrhea Clinical Impression: Acute kidney injury, Colitis, Ileitis Patient Disposition: Admitted As Inpatient Time of Disposition Decision: 10:41 Condition: Fair
[2025-05-09 09:15] LABS: Hematocrit 47.1 % (36.0-48.0); Hemoglobin 15.8 g/dL (12.0-16.0); Mean Corpuscular HGB Conc 33.5 g/dL (29.9-35.2); Mean Corpuscular Hemoglobin 30.0 pg (26.7-34.0); Mean Corpuscular Volume 89.5 fL (81.0-99.0); Platelet Count 249 10^3/uL (150-450); Red Blood Count 5.26 10^6/uL (4.20-5.40); White Blood Count 9.7 10^3/uL (4.0-11.0)
[2025-05-09] MEDS: 0.9 % SODIUM CHLORIDE 1,000 ML 1000 ML IV (09:18)
[2025-05-09 09:26] LABS: Anion Gap 17.3; Blood Urea Nitrogen 55.0 mg/dL (7.0-18.0); Calcium 8.9 mg/dL (8.5-10.1); Carbon Dioxide 24.6 mmol/L (21.0-32.0); Chloride 94 mmol/L (98-107); Estimated GFR (African America 27 (>=60 mL/min/1.73m^2); Estimated GFR (Non-African Ame 22 (>=60 mL/min/1.73m^2); Glucose 145 mg/dL (74-106); Sodium 133 mmol/L (136-145)
[2025-05-09 09:27] LABS: Potassium 2.9 mmol/L (3.5-5.1)
[2025-05-09 09:36] LABS: Band Neutrophils Absolute 1.6 10^3/uL (0.0-0.3); Basophils Abs Manual 0.00 10^3/uL (0.00-0.10); Basophils Percent Manual 0.0 % (0.2-2.0); Eosinophils Absolute Manual 0.19 10^3/uL (0.00-0.70); Eosinophils Percent Manual 2.0 % (0.9-7.0); Lymphocytes Absolute Manual 1.84 10^3/uL (1.20-3.80); Lymphocytes Percent Manual 19.0 % (20.5-60.0); Monocytes Absolute Manual 2.71 10^3/uL (0.30-0.80); Monocytes Percent Manual 28.0 % (1.7-12.0); Segmented Neut Absolute Manual 3.29 10^3/uL (1.4-6.5); Segmented Neutrophils % Manual 34.0 (43.0-75.0)
--- NOTE | 2025-05-09 09:53 | PC.NURSE ---
pt states she's had N/V/D mostly diarrhea. states at one point she thinks she was vomiting stool and that at another point stool was coming out of her vagina. does state she's got a rectovaginal fistula.
[2025-05-09] MEDS: CIPROFLOXACIN IN 5 % DEXTROSE 400 MG/200 ML PREMIX 200 MG IV (11:12)
[2025-05-09] MEDS: 0.9 % SODIUM CHLORIDE 1,000 ML 200 ML IV (11:15)
--- OUTSIDE RECORDS SUMMARY | 2025-05-09 11:50 | XMS_ITS | CCD ---
Author Organization [facility] Inform ion [facility] Care Team Providers Care 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 Name Role Phone YANELIS, ESEQUIEL C Unavailable [...] Unavailable THOMAS DELGADILLO Unavailable Unavailmaddie Mills MD, [facility] Primary Care Provider ROSS, DARA [...] Dr. Dara Chino Primary Care Unavailab citlalli [place], Dr. Rafael Acevedo Attending [place], Dr. Dara Chino Primary Care Unavailab citlalli [place], Dr. Rafael Acevedo Attending [place], Dr. Rafael Acevedo Referring [place], Dr. Dara Chino Primary Care Unavailab le SAMSA ., OLIVER Admitting Unavailable SAMSA ., OLIVER Attending Unavailable AICHHOLZ, REVENUE LIAISON VERONIQUE Primary Care Unavailable DR HANNAH MOORE Consulting Unavailable SAMSA ., OLIVER Consulting Unavailable AICHHOLZ, REVENUE LIAISON VERONIQUE Admitting Unavailable AICHHOLZ, REVENUE LIAISON VERONIQUE Attending Unavailable AICHHOLZ, REVENUE LIAISON VERONIQUE Primary Care Unavailable AICHHOLZ, REVENUE LIAISON VERONIQUE Consulting Unavailable AICHHOLZ, REVENUE LIAISON VERONIQUE Admitting Unavailable AICHHOLZ, REVENUE LIAISON VERONIQUE Attending Unavailable AICHHOLZ, REVENUE LIAISON VERONIQUE Primary Care Unavailable AICHHOLZ, REVENUE LIAISON VERONIQUE Consulting Unavailable AICHHOLZ, REVENUE LIAISON VERONIQUE Primary Care Unavailable MARIANO SAAB Admitting Unavailable MARIANO SAAB Attending Unavailable SHILA CALLOWAY Consulting Unavailabl e PROVIDER, UNKNOWN Admitting Unavailable LILLIAN QUICK Attending Unavailable Stuart Deluca MD Primary Care Provider Aicsharifa CASTING FINISHER, Veronique Unavailable VERONIQUE HARRIS J Primary Care Unavailable Parveen BUTTER WRAPPER, Jany Unavailable [place] CASING FLUID TENDER, Marta Unavailable Jb Valdez MA Unavailable Unavailable Aichholz PHARMACIST IN CHARGE OWNER-REVENUE LIAISON, Veronique J Primary Care Provider Jb Valdez [...] (6 sources) Sulfonamides (Antibiotic) Drug Allergy 1 [facility] (5 sources) Sulfonamides (Antibiotic); Translations: [SULFA (SULFONAMIDE ANTIBIOTICS)] Propensity to adverse reactions to drug (disorder) 7 [facility] (13 sources) Sulfonamides (Antibiotic) Propensity to adverse reactions to drug 1 [facility] (4 sources) Sulfamethoxazole; Translations: [sulfa] Drug Allergy Itching [facility] 250 DO Work Phone: (1 source) Sulfonamides (Antibiotic) Drug allergy (disorder) 3 [facility] (20 sources) levoFLOXacin Drug Allergy 3 Itching [facility] (20 sources) Sulfonamides (Antibiotic) Propensity to adverse reactions 3 [facility] (1 source) Sulfonamides (Antibiotic); Translations: [sulfa drugs] Propensity to adverse reactions (disorder) [facility] Repository Medications Current Medications Medication Drug Class(es) Dates Sig (Normalized) Sig (Original) [id number] 200 actuat albuterol 0.09 mg/actuat metered dose [...] [Coronary atherosclerosis of unspecified type of vessel, kalispel or graft] Onset: 09-30-2023 09-30-2023 Chronic Diabetes [...] 03-17-2018 Chronic Other aftercare (1 source) 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; Translations: [OTH [facility] CURRENT DRUG THERAPY] Onset: 01-20-2023 Episodic Other [...] nutritional; endocrine; and metabolic disorders (20 sources) Jcrpb-3-bbatuhlukhn deficiency; 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 deficiency] Onset: 07-27-2024 07-27-2024 Chronic Other nutritional; [...] endocrine; and metabolic disorders (20 sources) Antichymotrypsin [id number]; Translations: [Other disorders of plasma-protein metabolism, not [...] WITH AUTO DIFFon BASOPHILS ABSOLUTE AUTO 0 [facility] Basophils/100 WBC (Bld) 0.3 % 0.2 - 2.0 % [facility] Eosinophils/100 WBC (Bld) 1.6 % 0.9 - 7.0 % [facility] Erythrocyte distribution width (RBC) [Ratio] 13.4 % 11.0 - 15.0 % [facility] Hematocrit (Bld) [Volume fraction] 47 % 36.0 - 48.0 % [facility] Hemoglobin (Bld) [Mass/Vol] 15.3 g/dL 12.0 - 16.0 g/dL [facility] IMMATURE GRANULOCYTES ABS AUTO 0.02 [facility] Immature granulocytes/100 WBC (Bld) 0.2 % 0.0 - 0.5 % [facility] LYMPHOCYTES ABSOLUTE AUTO 3.4 [facility] Lymphocytes/100 WBC (Bld) 36.1 % 20.5 - 60.0 % [facility] MCH (RBC) [Entitic mass] 30.2 pg 26.7 - 34.0 pg [facility] MCHC (RBC) [Mass/Vol] 32.6 g/dL 29.9 - 35.2 g/dL [facility] MCV (RBC) [Entitic vol] 92.9 fL 81.0 - 99.0 fL [facility] MONOCYTES ABSOLUTE AUTO 0.7 [facility] Monocytes/100 WBC (Bld) 7.5 % 1.7 - 12.0 % [facility] NEUTROPHILS ABSOLUTE AUTO 5.2 [facility] Neutrophils/100 WBC (Bld) 54.3 % 43.0 - 75.0 % [facility] Platelet mean volume (Bld) [Entitic vol] 12.4 fL 9.5 - 13.5 fL [facility] TBH EO # 0.2 [facility] TBH PLT 205 [facility] TB RBC 5.06 [facility] TB WBC 9.5 [facility] HbA1c (Bld) [Mass fraction]o n 04-05-2025 Interpretation and review of laboratory results Abnormal [facility] - Hematology and Cell countson 04-05-2025 HbA1c (Bld) [Mass fraction] 6.7 % [facility] No Panel Informationon 11-09 STAPHYLOCOCCUS EPIDERMIDIS, HAEMOLYTICUS, LUGDUNENSIS, SAPROPHYTICUS (URINA 0 [facility] STAPHYLOCOCCUS EPIDERMIDIS, HAEMOLYTICUS, LUGDUNENSIS, SAPROPHYTICUS (URINA Not detected [facility] URINARY TRACT INFECTION (HTR X)on 11-09-2024 [facility]ER [facility]II [facility] BAUMANII Not detected [facility] NAHEED ALBICANS, PARAPSILOSIS, TROPICALIS 0 [facility] NAHEED ALBICANS, PARAPSILOSIS, TROPICALIS Not detected [facility] NAHEED GLABRATA 0 [facility] NAHEED GLABRATA Not detected [facility] NAHEED KRUSEI 0 [facility] NAHEED KRUSEI Not detected [facility] CITROBACTER FREUNDII 0 [facility] CITROBACTER FREUNDII Not detected [facility] ENTEROBACTER AEROGENES, CLOACAE 0 [facility] ENTEROBACTER AEROGENES, CLOACAE Not detected [facility] ENTEROCOCCUS FAECALIS, FAECIUM 0 [facility] ENTEROCOCCUS FAECALIS, FAECIUM Not detected [facility] ESCHERICHIA COLI 0 [facility] ESCHERICHIA COLI Not detected [facility] KLEBSIELLA PNEUMONIAE, OXYTOCA 0 [facility] KLEBSIELLA PNEUMONIAE, OXYTOCA Not detected [facility] MORGANELLA MORGANII 0 [facility] MORGANELLA MORGANII Not detected [facility] PROTEUS MIRABILIS, VULGARIS 0 [facility] PROTEUS MIRABILIS, VULGARIS Not detected [facility] PSEUDOMONAS AERUGINOSA 0 [facility] PSEUDOMONAS AERUGINOSA Not detected [facility] SERRATIA MARCESCENS 0 [facility] SERRATIA MARCESCENS Not detected [facility] STAPHYLOCOCCUS AUREUS 0 [facility] STAPHYLOCOCCUS AUREUS Not detected [facility] STREPTOCOCCUS AGALACTIAE (GROUP B STREP) 0 [facility] STREPTOCOCCUS AGALACTIAE (GROUP B STREP) Not detected [facility] STREPTOCOCCUS PYOGENES (GROUP A STREP) 0 [facility] STREPTOCOCCUS PYOGENES (GROUP A STREP) Not [facility] macro (dipstick) panel (U)on 11-06-2024 Bilirubin, UA Negative Negative - 4(70) +++ mg/dL [facility] Blood, UA Positive Negative - 50 Alvin/mcL [facility] Clarity, UA Turbid [facility] Color, UA Viola [facility] Glucose, UA Negative Negative - 1999(110) ++++ mg/dL [facility] Interpretation and review of laboratory results Abnormal [facility] Ketones, UA Negative Negative - 160(16) ++++ mg/dL [facility] Leukocytes, UA Negative Negative - 500+++ Blair/mcL [facility] Nitrite, UA Negative Negative - Positive [facility] pH, UA 5 5 - 9 [facility] Protein, UA Negative Negative - 2000(20) ++++ mg/dL [facility] Spec Grav, UA 1.025 1 - 1.03 [facility] Urobilinogen, UA 1.0 0.2 - 12 mg/dL [facility] HbA1c (Bld) [Mass fraction]o n 07-27-2024 Interpretation and review of laboratory results Abnormal [facility] - Hematology and Cell countson 07-27-2024 HbA1c (Bld) [Mass fraction] 6.5 % [facility] XR ANKLE RT MIN 3 VWSon [...] Cano MD on 07/20/2024 8:13 PM Normal [facility] XR SPINE LUMBAR 2 OR 3 VWSon [...] Baeza MD on 07/20/2024 8:11 PM Normal [facility] Office Visit (Cardiology)on 10-06-2022 Follow-up visit Diagnoses/Problems Assessed History of PTCA (V45.82) (Z98.61) CAD (coronary artery disease) (414.00) (I25.10) Hyperlipidemia (272.4) (E78.5) Diabetes mellitus (250.00) (E11.9) COPD (chronic obstructive pulmonary disease) (496) (J44.9) Overweight with body mass index (BMI) of 29 to 29.9 in adult (278.02,V85.25) (E66.3,Z68.29) Current every day smoker (305.1) (F17.200) 6 CIGS A DAY History of CT (myocardial infarction) (412) (I25.2) Benign essential hypertension [...] we can help. You may also call 7-145-SEXP-NOW for free resources and assistance.; Status:Complete - [...] She has a history of previous inferior CT in February 2021 (late presenting CT) with PCI of the RCA at that [...] DAILY Current (more content not included)... Normal [employer] Tobacco Screening.on 023 Adult depression screening assessment No [facility] 250 DO Work Phone: Fall risk assessment c) Not medically indicated [facility] Work Phone: Tobacco use status CPHS a) Yes -[facility] 250 DO Work Phone: Tobacco Screening. Yes [facility] 250 DO Work Phone: CT LUNG CANCER [...] Date: 2022-09-01 10:57 Normal [facility] CBC AUTO DIFFon 06-17-2022 BASO # 0.1 103/ul Normal 0.0-0.1 [facility] Comment on above: Performed By: #### C BC #### [facility] [address] [address] [address] Oneal Vieyra Basophils/100 WBC (Bld) 0.5 % Normal 0.2-2.0 [facility] Comment on above: Performed By: #### C BC #### [facility] [address] [place] [address] Dr. Oneal Vieyra EO # 0.1 103/ul Normal 0.0-0.7 [facility] Comment on above: Performed By: #### C BC #### [facility] [address] [address] [address] Oneal Vieyra Eosinophils/100 WBC (Bld) 1.3 % Normal 0.9-7.0 [facility] Comment on above: Performed By: #### C BC #### [facility] [address] [place] [address] Dr. Oneal Vieyra Erythrocyte distribution width (RBC) [Ratio] 13.4 % Normal 11.0-15.0 [facility] Comment on above: Performed By: #### C BC #### [facility] [address] [place] [address] Dr. Oneal Vieyra Hematocrit (Bld) [Volume fraction] 51.8 % Critically high 36.0-48.0 [facility] Comment on above: Performed By: #### C BC #### [facility] [address] [place] [address] Dr. Oneal Vieyra Hemoglobin (Bld) [Mass/Vol] 16.1 g/dL Critically high 12.0-16.0 [facility] Comment on above: Performed By: #### C BC #### [facility] [address] [place] [address] Dr. nOeal Vieyra IG # 0.03 10e3/ul Normal 0.00-0.03 [facility] Comment on above: Performed By: #### C BC #### [facility] [address] [place] [address] Dr. Oneal Vieyra IG % 0.3 % Normal 0.0-0.5 [facility] Comment on above: Performed By: #### C BC #### [facility] [address] [place] [address] Dr. Oneal Vieyra LYMPH # 3.7 103/ul Normal 1.2-3.8 [facility] Comment on above: Performed By: #### C BC #### [facility] [address] [place] [address] Dr. Oneal Vieyra Lymphocytes/100 WBC (Bld) 34.5 % Normal 20.5-60.0 [facility] Comment on above: Performed By: #### C BC #### [facility] [address] [place] [address] Dr. Oneal Vieyra MANUAL DIFF REQ NO Normal [facility] Comment on above: Performed By: #### C BC #### [facility] [address] [place] [address] Dr. Oneal Vieyra MCH (RBC) [Entitic mass] 29.7 pg Normal 26.7-34.0 [facility] Comment on above: Performed By: #### C BC #### [facility] [address] [place] [address] Dr. Oneal Vieyra MCHC (RBC) [Mass/Vol] 31.1 g/dL Normal 29.9-35.2 [facility] Comment on above: Performed By: #### C BC #### [facility] [address] [place] [address] Dr. Oneal Vieyra MCV (RBC) [Entitic vol] 95.6 fL Normal 81.0-99.0 [facility] Comment on above: Performed By: #### C BC #### [facility] [address] [place] [address] Dr. Oneal Vieyra MONO # 0.8 103/ul Normal 0.3-0.8 [facility] Comment on above: Performed By: #### C BC #### [facility] [address] [place] [address] Dr. Oneal Vieyra Monocytes/100 WBC (Bld) 7.6 % Normal 1.7-12.0 [facility] Comment on above: Performed By: #### C BC #### [facility] [address] [place] [address] Dr. Oneal Vieyra NEUT # 5.9 103/ul Normal 1.4-6.5 [facility] Comment on above: Performed By: #### C BC #### [facility] [address] [place] [address] Dr. Oneal Vieyra Neutrophils/100 WBC (Bld) 55.8 % Normal 43.0-75.0 [facility] Comment on above: Performed By: #### C BC #### [facility] [address] [place] [address] Dr. Oneal Vieyra Platelet mean volume (Bld) [Entitic vol] 12.1 fL Normal 9.5-13.5 [facility] Comment on above: Performed By: #### C BC #### [facility] [address] [place] [address] Dr. Oneal Vieyra PLT 224 103/ul Normal 150-450 [facility] Comment on above: Performed By: #### C BC #### [facility] [address] [place] [address] Dr. Oneal Vieyra RBC 5.42 106/ul Critically high 4.20-5.40 [facility] Comment on above: Performed By: #### C BC #### [facility] [address] [place] [address] Dr. Oneal Vieyra WBC 10.6 103/ul Normal 4.0-11.0 [facility] Comment on above: Performed By: #### C BC #### [facility] [address] [place] [address] Dr. Oneal Vieyra FREE T4on 06-17-2022 Free T4 [Mass/Vol] 0.98 ng/dL Normal 0.76-1.46 [facility] Comment on above: Performed By: #### F T4 #### [facility] [address] [address] [address] Oneal Vieyra GLYCOHEMOGLOBIN A1Con 2021 ADA RECOMMENDATION SEE BELOW Normal [facility] Comment on above: Result Comment: ADA RECOMMENDED LIMIT 4.0 - 6.0 ADA THERAPEUTIC TARGET < 7.0 ACTION SUGGESTED > 7.0 Performed By: #### A 1C #### [facility] [address] [place] [address] Dr. Oneal Vieyra Glucose [Mass/Vol] 146 mg/dL Normal [facility] Comment on above: Performed By: #### A 1C #### [facility] [address] [place] [address] Dr. Oneal Vieyra HbA1c (Bld) [Mass fraction] 6.7 % Critically high 4.5-6.2 [facility] Comment on above: Performed By: #### A 1C #### [facility] [address] [place] [address] Dr. Oneal Vieyra LIPID PROFILEon 06-17-2022 CHOL-HDL RATIO NORM SEE BELOW Normal [facility] Comment on above: Result Comment: 3.3 - 4.4 LOW RISK 4.4 - 7.1 AVERAGE RISK 7.1 - 11.0 MODERATE RISK >11.0 HIGH RISK Performed By: #### L IPID, TSH, CMP #### [facility] [address] [place] [address] Dr. Oneal Vieyra Cholesterol [Mass/Vol] 161 mg/dL Normal <=200 [facility] Comment on above: Performed By: #### L IPID, TSH, CMP #### [facility] [address] [address] [address] Oneal Vieyra Cholesterol in HDL [Mass/Vol] 33 mg/dL Critically low 40-60 [facility] Comment on above: Performed By: #### L IPID, TSH, CMP #### [facility] [address] [address] [address] Oneal Vieyra Cholesterol in LDL [Mass/Vol] 63.8 mg/dL Normal [facility] Comment on above: Performed By: #### L IPID, TSH, CMP #### [facility] [address] [address] [address] Oneal Vieyra Cholesterol.total/ Cholesterol in HDL [Mass ratio] 4.9 {ratio} Normal [facility] Comment on above: Performed By: #### L IPID, TSH, CMP #### [facility] [address] [address] [address] Oneal Vieyra HDL NORMAL > or = 60 mg/dl - LO W CARDIOVASCULAR RISK <40 mg/dl - HIGH CARDIOVASCULAR RISK Normal [facility] Comment on above: Performed By: #### L IPID, TSH, CMP #### [facility] [address] [address] [address] Oneal Vieyra LDL CALC NORMAL SEE BELOW Normal [facility] Comment on above: Result Comment: <100 mg/dl OPTIMAL 100 - 129 mg/dl NEAR OR ABOVE OPTIMAL 130 - 159 mg/dl BORDERLINE HIGH 160 - 189 mg/dl HIGH >190 mg/dl VERY HIGH Performed By: #### L IPID, TSH, CMP #### [facility] [address] [address] [address] Oneal Vieyra Triglyceride [Mass/Vol] 321 mg/dL Critically high <=150 [facility] Comment on above: Performed By: #### L IPID, TSH, CMP #### [facility] [address] [address] [address] Oneal Vieyra VLDL CALC 64.2 mg/dL Normal [facility] Comment on above: Performed By: #### L IPID, TSH, CMP #### [facility] [address] [address] [address] Oneal Vieyra PROF 14(COMP METB)on 022 Albumin [Mass/Vol] 3.7 g/dL Normal 3.4-5.0 [facility] Comment on above: Performed By: #### L IPID, TSH, CMP #### [facility] [address] [address] [address] Oneal Vieyra Albumin/Globulin [Mass ratio] 0.9 {ratio} Normal [facility] Comment on above: Performed By: #### L IPID, TSH, CMP #### [facility] [address] [address] [address] Oneal Vieyra ALP [Catalytic activity/Vol] 171 U/L Critically high 46-116 [facility] Comment on above: Performed By: #### L IPID, TSH, CMP #### [facility] [address] [address] [address] Oneal Vieyra ALT [Catalytic activity/Vol] 19 U/L Normal 14-59 [facility] Comment on above: Performed By: #### L IPID, TSH, CMP #### [facility] [address] [address] [address] Oneal Vieyra Anion gap [Moles/Vol] 5.6 mmol/L Normal [facility] Comment on above: Performed By: #### L IPID, TSH, CMP #### [facility] [address] [place] [address] Dr. Oneal Vieyra AST [Catalytic activity/Vol] 13 U/L Critically low 15-37 [facility] Comment on above: Performed By: #### L IPID, TSH, CMP #### [facility] [address] [place] [address] Dr. Oneal Vieyra Bilirubin [Mass/Vol] 0.5 mg/dL Normal 0.2-1.0 [facility] Comment on above: Performed By: #### L IPID, TSH, CMP #### [facility] [address] [place] [address] Dr. Oneal Vieyra Calcium [Mass/Vol] 9.1 mg/dL Normal 8.5-10.1 [facility] Comment on above: Performed By: #### L IPID, TSH, CMP #### [facility] [address] [place] [address] Dr. Oneal Vieyra Chloride [Moles/Vol] 105 mmol/L Normal 98-107 [facility] Comment on above: Performed By: #### L IPID, TSH, CMP #### [facility] [address] [place] [address] Dr. Oneal Vieyra CO2 [Moles/Vol] 35.3 mmol/L Critically high 21.0-32.0 [facility] Comment on above: Performed By: #### L IPID, TSH, CMP #### [facility] [address] [address] [address] Oneal Vieyra Creatinine [Mass/Vol] 0.88 mg/dL Normal 0.55-1.02 [facility] Comment on above: Performed By: #### L IPID, TSH, CMP #### [facility] [address] [address] [address] Oneal Vieyra EGFR-AF JORDANIAN >60 Normal >=60 [facility] Comment on above: Performed By: #### L IPID, TSH, CMP #### [facility] [address] [address] [address] Oneal Vieyra EGFR-NON AF JORDANIAN >60 Normal >=60 [facility] Comment on above: Performed By: #### L IPID, TSH, CMP #### [facility] [address] [address] [address] Oneal Vieyra Globulin (S) [Mass/Vol] 4.3 g/dL Normal [facility] Comment on above: Performed By: #### L IPID, TSH, CMP #### [facility] [address] [address] [address] Oneal Vieyra Glucose [Mass/Vol] 93 mg/dL Normal 74-106 [facility] Comment on above: Performed By: #### L IPID, TSH, CMP #### [facility] [address] [address] [address] Oneal Vieyra Potassium [Moles/Vol] 3.9 mmol/L Normal 3.5-5.1 [facility] Comment on above: Performed By: #### L IPID, TSH, CMP #### [facility] [address] [address] [address] Oneal Vieyra Protein [Mass/Vol] 8.0 g/dL Normal 6.4-8.2 [facility] Comment on above: Performed By: #### L IPID, TSH, CMP #### [facility] [address] [place] [address] Dr. Oneal Vieyra Sodium [Moles/Vol] 142 mmol/L Normal 136-145 [facility] [facility] Comment on above: Performed By: #### L IPID, TSH, CMP #### [facility] [address] [place] [address] Dr. Oneal Vieyra Urea nitrogen [Mass/Vol] 15.0 mg/dL Normal 7.0-18.0 [facility] Comment on above: Performed By: #### L IPID, TSH, CMP #### [facility] [address] [place] [address] Dr. Oneal Vieyra Urea nitrogen/Creatinin e [Mass ratio] 17.0 mg/mg Normal [facility] Comment on above: Performed By: #### L IPID, TSH, CMP #### [facility] [address] [place] [address] Dr. Oneal Vieyra TSHon 06-17-2022 TSH 9.403 uIU/mL Critically high 0.358-3.740 [facility] Comment on above: Performed By: #### L IPID, TSH, CMP #### [facility] [address] [place] [address] Dr. Oneal Vieyra UA RANDOM W/MICROSCOPICon BACTERIA NONE SEEN Normal NONE SEEN [facility] Comment on above: Performed By: #### U AMIC #### [facility] [address] [place] [address] Dr. Oneal Vieyra Bilirubin Ql (U) Negative Normal NEGATIVE [facility] Comment on above: Performed By: #### U AMIC #### [facility] [address] [place] [address] Dr. Oneal Vieyra CAST NONE SEEN Normal NONE SEEN [facility] Comment on above: Performed By: #### U AMIC #### [facility] [address] [place] [address] Dr. Oneal Vieyra Clarity (U) CLEAR Normal CLEAR [facility] Comment on above: Performed By: #### U AMIC #### [facility] [address] [place] [address] Dr. Oneal Vieyra Color (U) LT. YELLOW Normal YELLOW [facility] Comment on above: Performed By: #### U AMIC #### [facility] [address] [address] [address] Oneal Vieyra Crystals LM Nom (Urine sed) NONE SEEN Normal NONE SEEN [facility] Comment on above: Performed By: #### U AMIC #### [facility] [address] [address] [address] Oneal Vieyra Epithelial cells LM Ql (Urine sed) FEW Abnormal NONE SEEN /RARE [facility] Comment on above: Performed By: #### U AMIC #### [facility] [address] [address] [address] Oneal Vieyra Glucose Ql (U) >1000 Abnormal NEGATIVE [facility] Comment on above: Performed By: #### U AMIC #### [facility] [address] [address] [address] Oneal Vieyra Hemoglobin Ql (U) SMALL Abnormal NEGATIVE [facility] Comment on above: Performed By: #### U AMIC #### [facility] [address] [address] [address] Oneal Vieyra Ketones Ql (U) Negative Normal NEGATIVE [facility] Comment on above: Performed By: #### U AMIC #### [facility] [address] [address] [address] Oneal Vieyra LEUKOCYTES Negative Normal NEGATIVE [facility] Comment on above: Performed By: #### U AMIC #### [facility] [address] [address] [address] Oneal Vieyra MUCOUS NONE SEEN Normal NONE SEEN [facility] Comment on above: Performed By: #### U AMIC #### [facility] [address] [address] [address] Oneal Vieyra Nitrite Ql (U) Negative Normal NEGATIVE [facility] Comment on above: Performed By: #### U AMIC #### [facility] [address] [address] [address] Oneal Vieyra pH (U) 6.0 [pH] Normal 5-9 [facility] Comment on above: Performed By: #### U AMIC #### [facility] [address] [address] [address] Oneal Vieyra RBC 0-2 Normal 0-2 [facility] Comment on above: Performed By: #### U AMIC #### [facility] [address] [address] [address] Oneal Vieyra SPEC GRAVITY <=1.005 Abnormal 1.005-<=1.0 25 [facility] Comment on above: Performed By: #### U AMIC #### [facility] [address] [address] [address] Oneal Vieyra UA PROTEIN Negative Normal NEGATIVE/ TRACE [facility] Comment on above: Performed By: #### U AMIC #### [facility] [address] [place] [address] Dr. Oneal Vieyra Urobilinogen Qn (U) 0.2 {Ashwini'U}/dL Normal 0.2 - 1.0 [facility] Comment on above: Performed By: #### U AMIC #### [facility] [address] [place] [address] Dr. Oneal Vieyra WBC NONE SEEN Normal NONE SEEN [facility] Comment on above: Performed By: #### U AMIC #### [facility] [address] [place] [address] Dr. Oneal Vieyra MICROALBUMIN, RAND URon - mALB <1.3 Normal <=30.0 [facility] Comment on above: Performed By: #### M ALBR #### [facility] [address] [place] [address] Dr. Oneal Vieyra UA RANDOM W/MICROSCOPICon BACTERIA NONE SEEN Normal NONE SEEN [facility] Comment on above: Performed By: #### U AMIC #### [facility] [address] [place] [address] Dr. Oneal Vieyra Bilirubin Ql (U) Negative Normal NEGATIVE [facility] Comment on above: Performed By: #### U AMIC #### [facility] [address] [address] [address] Oneal Vieyra CAST NONE SEEN Normal NONE SEEN [facility] Comment on above: Performed By: #### U AMIC #### [facility] [address] [address] [address] Oneal Vieyra Clarity (U) CLEAR Normal CLEAR [facility] Comment on above: Performed By: #### U AMIC #### [facility] [address] [place] [address] Dr. Oneal Vieyra Color (U) YELLOW Normal YELLOW [facility] Comment on above: Performed By: #### U AMIC #### [facility] [address] [address] [address] Oneal Vieyra Crystals LM Nom (Urine sed) NONE SEEN Normal NONE SEEN [facility] Comment on above: Performed By: #### U AMIC #### [facility] [address] [place] [address] Dr. Oneal Vieyra Epithelial cells LM Ql (Urine sed) FEW Abnormal NONE SEEN /RARE [facility] Comment on above: Performed By: #### U AMIC #### [facility] [address] [place] [address] Dr. Oneal Vieyra Glucose Ql (U) >1000 Abnormal NEGATIVE [facility] Comment on above: Performed By: #### U AMIC #### [facility] [address] [place] [address] Dr. Oneal Vieyra Hemoglobin Ql (U) SMALL Abnormal NEGATIVE [facility] Comment on above: Performed By: #### U AMIC #### [facility] [address] [place] [address] Dr. Oneal Vieyra Ketones Ql (U) Negative Normal NEGATIVE [facility] Comment on above: Performed By: #### U AMIC #### [facility] [address] [address] [address] Oneal Vieyra LEUKOCYTES Negative Normal NEGATIVE [facility] Comment on above: Performed By: #### U AMIC #### [facility] [address] [address] [address] Oneal Vieyra MUCOUS NONE SEEN Normal NONE SEEN [facility] Comment on above: Performed By: #### U AMIC #### [facility] [address] [address] [address] Oneal Vieyra Nitrite Ql (U) Negative Normal NEGATIVE [facility] Comment on above: Performed By: #### U AMIC #### [facility] [address] [place] [address] Dr. Oneal Vieyra pH (U) 5.5 [pH] Normal 5-9 [facility] Comment on above: Performed By: #### U AMIC #### [facility] [address] [place] [address] Dr. Oneal Vieyra RBC 0-2 Normal 0-2 [facility] Comment on above: Performed By: #### U AMIC #### [facility] [address] [place] [address] Dr. Oneal Vieyra SPEC GRAVITY 1.020 Normal 1.005-<=1.0 25 [facility] Comment on above: Performed By: #### U AMIC #### [facility] [address] [place] [address] Dr. Oneal Vieyra UA PROTEIN Negative Normal NEGATIVE/ TRACE [facility] Comment on above: Performed By: #### U AMIC #### [facility] [address] [place] [address] Dr. Oneal Vieyra Urobilinogen Qn (U) 0.2 {Ashwini'U}/dL Normal 0.2 - 1.0 [facility] Comment on above: Performed By: #### U AMIC #### [facility] [address] [place] [address] Dr. Oneal Vieyra WBC NONE SEEN Normal NONE SEEN [facility] Comment on above: Performed By: #### U AMIC #### [facility] [address] [place] [address] Dr. Oneal Vieyra Office Visit (Cardiology)on 10-16-2021 [...] for follow-up. She had inferior ST elevation CT with primary revascularization of the RCA in [...] 16Oct2021 11:41AM Heart Rate65, L Brachial Artery Vxejsfri753, LUE, Sitting Lzueobvcf39, LUE, Sitting Height5 ft 1 in Domgko469 lb BMI Zapxwlfwje54.04 kg/m2 BSA Calculated1.71 Tobacco Usea) Yes Patient encouraged to stop using tobacco productsYes Fall Screeningc) Not medically indicated Physical Exam Constitutional: alert and in no acute distress. Neck: neck is supple, symmetric, trachea midline, no masses and no thyromegaly . (more content not included)... Normal [facility] Tobacco Screening.on 022 Fall risk assessment c) Not medically indicated [facility] [address] DO Work Phone: Tobacco use status CPHS a) Yes MP-[facility] [address] DO Work Phone: Tobacco Screening. Yes -[facility] [address] DO Work Phone: Basic Metabolic Panelon 02-26 Calcium [Mass/Vol] 8.6 mg/dL Normal 8.2-10.2 [facility] Comment on above: Performed By: #### C K, BMP, SCAN CBC, PTT, BNP, PT, TROP #### [facility] [address] Chloride [Moles/Vol] 105 mmol/L Normal 95-114 [facility] Comment on above: Performed By: #### C K, BMP, SCAN CBC, PTT, BNP, PT, TROP #### [facility] [address] CO2 [Moles/Vol] 21.2 mmol/L Low 22.0-30.0 [facility] Comment on above: Performed By: #### C K, BMP, SCAN CBC, PTT, BNP, PT, TROP #### [facility] [address] [place] [address] [place] Creatinine [Mass/Vol] 1.26 mg/dL High 0.44-1.03 [facility] Comment on above: Performed By: #### C K, BMP, SCAN CBC, PTT, BNP, PT, TROP #### [facility] [address] [id number] [place] Creatinine Clr Calc Pharmacy 43.69 Normal [facility] Comment on above: Result Comment: PERF ORMED BY: [place] [address] PATHOLOGIST [employer]ALL[employer] MACHINE GIA SHAH M.D. Performed By: #### C K, BMP, SCAN CBC, PTT, BNP, PT, TROP #### [facility] [address] Estimated GFR ( [place] 53 Normal [facility] Comment on above: Result Comment: GFR estimated reference range: According to KDOQI guidelines, <60 ml/min/1.73m2 is sufficient to diagnose a patient with chronic kidney disease. Performed By: #### C K, BMP, SCAN CBC, PTT, BNP, PT, TROP #### [facility] [address] Estimated GFR (Non- Am 44 [facility] Comment on above: Performed By: #### C K, BMP, SCAN CBC, PTT, BNP, PT, TROP #### [address] Glucose [Mass/Vol] 116 mg/dL High 70-100 [facility] Comment on above: Result Comment: [place] Glucose Reference Range is dependent on time and content of last meal. Glucose of more than 200 mg/dL in a nonstressed, ambulatory subject supports the diagnosis of Diabetes Mellitus. ADA recommended reference range Performed By: #### C K, BMP, SCAN CBC, PTT, BNP, PT, TROP #### [address] Potassium [Moles/Vol] 3.3 mmol/L Low 3.5-5.1 [facility] Comment on above: Performed By: #### C K, BMP, SCAN CBC, PTT, BNP, PT, TROP #### [facility] [address] Sodium [Moles/Vol] 139 mmol/L Normal 136-146 [facility] Comment on above: Performed By: #### C K, BMP, SCAN CBC, PTT, BNP, PT, TROP #### [facility] [address] Urea nitrogen [Mass/Vol] 20 mg/dL Normal 9-23 [facility] Comment on above: Performed By: #### C K, BMP, SCAN CBC, PTT, BNP, PT, TROP #### [facility] [address] Creatine Kinaseon 03-21-2021 CK [Catalytic activity/Vol] 87 U/L Normal 22-269 [facility] Comment on above: Performed By: #### C K, BMP, SCAN CBC, PTT, BNP, PT, TROP #### [facility] [address] Creatinine Kinase MBon 03-21 CK.MB [Mass/Vol] 1.6 ng/mL Normal 0.6-6.3 [facility] Comment on above: Performed By: #### C K, BMP, SCAN CBC, PTT, BNP, PT, TROP #### [facility] [address] CKMB Relative Index 1.8 % Normal 0.00-2.50 [facility] Comment on above: Performed By: #### C K, BMP, SCAN CBC, PTT, BNP, PT, TROP #### [facility] [address] ECG 12 lead ECGon 03-21-2021 ECG 12 lead ECG [facility] [place] [address] Electrocardiograph Report Signed Patient: Fausto Corrigan MR#: [id number] 0 : 1960 Acct:[id number] Age/Sex: 60 / F ADM Date: 03/19/21 Loc: Room: [address] [place] [address] Type: DIS IN Attending Dr: Kal Kellogg [...] compared with ECG of 20-MAR-2021 14:36, (Unconfirmed) MI interval has decreased Confirmed by CHRISTA BEAZA DO ([id number]) on 03/21/2021 4:10:41 PM Referred By: Electronically Signed By:CHRISTA BAEZA DO Transcribed By: MUS Dictated By: Christa Baeza DO 03/21/21 0802 Signed By: 03/21/21 1610 Normal [facility] Scan and CBCon 03-21-2021 Basophils (Bld) [#/Vol] 0.1 10*3/uL Normal 0.0-0.2 [facility] Comment on above: Performed By: #### C K, BMP, SCAN CBC, PTT, BNP, PT, TROP #### [facility] [address] [place] [address] Basophils/100 WBC (Bld) 0.5 % Normal . [facility] Comment on above: Performed By: #### C K, BMP, SCAN CBC, PTT, BNP, PT, TROP #### [facility] [address] Eosinophils (Bld) [#/Vol] 0.3 10*3/uL Normal 0.0-0.45 [facility] Comment on above: Performed By: #### C K, BMP, SCAN CBC, PTT, BNP, PT, TROP #### [facility] [address] Eosinophils/100 WBC (Bld) 2.6 % Normal . [facility] Comment on above: Performed By: #### C K, BMP, SCAN CBC, PTT, BNP, PT, TROP #### [facility] [address] Erythrocyte distribution width (RBC) [Ratio] 13.3 % Normal 11.9-15.3 [facility] Comment on above: Performed By: #### C K, BMP, SCAN CBC, PTT, BNP, PT, TROP #### [facility] [address] Hematocrit (Bld) [Volume fraction] 39.1 % Normal 34.0-46.4 [facility] Comment on above: Performed By: #### C K, BMP, SCAN CBC, PTT, BNP, PT, TROP #### [address] Hemoglobin (Bld) [Mass/Vol] 13.2 g/dL Normal 11.8-15.4 [facility] Comment on above: Performed By: #### C K, BMP, SCAN CBC, PTT, BNP, PT, TROP #### [address] Lymphocytes (Bld) [#/Vol] 4.6 10*3/uL Normal 1.00-4.8 [facility] Comment on above: Performed By: #### C K, BMP, SCAN CBC, PTT, BNP, PT, TROP #### [address] Lymphocytes/100 WBC (Bld) 37.3 % Normal . [facility] Comment on above: Performed By: #### C K, BMP, SCAN CBC, PTT, BNP, PT, TROP #### [address] MCH (RBC) [Entitic mass] 31.1 pg Normal 24.7-34.3 [facility] Comment on above: Performed By: #### C K, BMP, SCAN CBC, PTT, BNP, PT, TROP #### [address] MCV (RBC) [Entitic vol] 92.2 fL Normal 80-100 [facility] Comment on above: Performed By: #### C K, BMP, SCAN CBC, PTT, BNP, PT, TROP #### [address] Mean Corpuscular HGB Conc 33.8 g/dL Normal 32.0-35.0 [facility] Comment on above: Performed By: #### C K, BMP, SCAN CBC, PTT, BNP, PT, TROP #### [address] [id number] [place] Monocytes (Bld) [#/Vol] 1.0 10*3/uL High 0.0-0.8 [facility] Comment on above: Performed By: #### C K, BMP, SCAN CBC, PTT, BNP, PT, TROP #### [address] Monocytes/100 WBC (Bld) 8.0 % Normal . [facility] Comment on above: Performed By: #### C K, BMP, SCAN CBC, PTT, BNP, PT, TROP #### [address] Neutrophils (Bld) [#/Vol] 6.4 10*3/uL Normal 1.8-7.7 [facility] Comment on above: Performed By: #### C K, BMP, SCAN CBC, PTT, BNP, PT, TROP #### [address] Neutrophils/100 WBC (Bld) 51.6 % Normal . [facility] Comment on above: Performed By: #### C K, BMP, SCAN CBC, PTT, BNP, PT, TROP #### [address] Nucleated RBC/100 WBC (Bld) [Ratio] 0.2 % Normal 0-0.5 [facility] Comment on above: Performed By: #### C K, BMP, SCAN CBC, PTT, BNP, PT, TROP #### [address] Platelet Estimate Normal Normal Normal [facility] Comment on above: Performed By: #### C K, BMP, SCAN CBC, PTT, BNP, PT, TROP #### [address] Platelet mean volume (Bld) [Entitic vol] 9.3 fL Normal 6.3-10.7 [facility] Comment on above: Performed By: #### C K, BMP, SCAN CBC, PTT, BNP, PT, TROP #### [address] Platelet Morphology Normal Normal Normal [facility] Comment on above: Result Comment: PERF ORMED BY: [place] [address] PATHOLOGIST [employer]ACHINE GIA SHAH M.D. Performed By: #### C K, BMP, SCAN CBC, PTT, BNP, PT, TROP #### [address] Platelets (Bld) [#/Vol] 250 10*3/uL Normal 150-450 [facility] Comment on above: Performed By: #### C K, BMP, SCAN CBC, PTT, BNP, PT, TROP #### [address] RBC (Bld) [#/Vol] 4.24 10*6/uL Normal 3.60-5.00 [facility] Comment on above: Performed By: #### C K, BMP, SCAN CBC, PTT, BNP, PT, TROP #### [address] RBC morphology finding Nom (Bld) Normal Normal [facility] Comment on above: Performed By: #### C K, BMP, SCAN CBC, PTT, BNP, PT, TROP #### [address] WBC (Bld) [#/Vol] 12.3 10*3/uL High 4.5-11.0 [facility] Comment on above: Performed By: #### C K, BMP, SCAN CBC, PTT, BNP, PT, TROP #### [address] Troponin I(TnI)on 03-21-2021 Troponin I.cardiac [Mass/Vol] 3.93 ng/mL Off scale high 0-0.02 [facility] Comment on above: Result Comment: MILLA CT Cut off value > or equal to 0.03 ng/mL in conjunction with clinical conditions of myocardial infarction. (www.escardio.org/guidelines) PERFORMED BY: [place] [address] PATHOLOGIST [employer]ALL[employer] MACHINE GIA SHAH M.D. Performed By: #### C K, BMP, SCAN CBC, PTT, BNP, PT, TROP #### [address] Troponin I.cardiac [Mass/Vol] 3.98 ng/mL Off scale high 0-0.02 [facility] Comment on above: Result Comment: MILLA CT Cut off value > or equal to 0.03 ng/mL in conjunction with clinical conditions of myocardial infarction. (www.escardio.org/guidelines) PERFORMED BY: [place] [address] PATHOLOGIST SCALLOP CUTTER MACHINE GIA SHAH M.D. Performed By: #### C K, BMP, SCAN CBC, PTT, BNP, PT, TROP #### [address] Basic Metabolic Panelon 06-2 Calcium [Mass/Vol] 9.1 mg/dL Normal 8.2-10.2 [facility] Comment on above: Performed By: #### C K, BMP, SCAN CBC, PTT, BNP, PT, TROP #### [address] Chloride [Moles/Vol] 102 mmol/L Normal 95-114 [facility] Comment on above: Performed By: #### C K, BMP, SCAN CBC, PTT, BNP, PT, TROP #### [address] CO2 [Moles/Vol] 23.3 mmol/L Normal 22.0-30.0 [facility] Comment on above: Performed By: #### C K, BMP, SCAN CBC, PTT, BNP, PT, TROP #### [address] Creatinine [Mass/Vol] 1.15 mg/dL High 0.44-1.03 [facility] Comment on above: Performed By: #### C K, BMP, SCAN CBC, PTT, BNP, PT, TROP #### [address] [place] [address] [place] Creatinine Clr Calc Pharmacy 47.09 [facility] Comment on above: Performed By: #### C K, BMP, SCAN CBC, PTT, BNP, PT, TROP #### [facility] [address] Estimated GFR ( [place] 59 [facility] Comment on above: Result Comment: GFR estimated reference range: According to KDOQI guidelines, <60 ml/min/1.73m2 is sufficient to diagnose a patient with chronic kidney disease. Performed By: #### C K, BMP, SCAN CBC, PTT, BNP, PT, TROP #### [facility] [address] Estimated GFR (Non- Am 48 [facility] Comment on above: Performed By: #### C K, BMP, SCAN CBC, PTT, BNP, PT, TROP #### [facility] [address] Glucose [Mass/Vol] 161 mg/dL High 70-100 [facility] Comment on above: Result Comment: [facility] Glucose Reference Range is dependent on time and content of last meal. Glucose of more than 200 mg/dL in a nonstressed, ambulatory subject supports the diagnosis of Diabetes Mellitus. ADA recommended reference range Performed By: #### C K, BMP, SCAN CBC, PTT, BNP, PT, TROP #### [facility] [address] Potassium [Moles/Vol] 3.1 mmol/L Low 3.5-5.1 [facility] Comment on above: Performed By: #### C K, BMP, SCAN CBC, PTT, BNP, PT, TROP #### [facility] [address] Sodium [Moles/Vol] 136 mmol/L Normal 136-146 [facility] Comment on above: Performed By: #### C K, BMP, SCAN CBC, PTT, BNP, PT, TROP #### [facility] [address] Urea nitrogen [Mass/Vol] 26 mg/dL High 9-23 [facility] Comment on above: Performed By: #### C K, BMP, SCAN CBC, PTT, BNP, PT, TROP #### [address] Coagulation Profileon 2020 aPTT Coag (Bld) [Time] 37.6 s High 25.1-36.5 [facility] Comment on above: Result Comment: PERF ORMED BY: [place] [address] PATHOLOGIST [employer]ALL[employer]ACHINE GIA SHAH M.D. Performed By: #### C K, BMP, SCAN CBC, PTT, BNP, PT, TROP #### [address] INR Coag (PPP) [Relative time] 1.1 {INR} Normal [facility] Comment on [...] SCAN CBC, PTT, BNP, PT, TROP #### [address] PT Coag (PPP) [Time] 12.2 s Normal 9.0-12.9 [facility] Comment on above: Performed By: #### C K, BMP, SCAN CBC, PTT, BNP, PT, TROP #### [facility] [address] Creatine Kinaseon 03-20-2021 CK [Catalytic activity/Vol] 91 U/L Normal 22-269 [facility] Comment on above: Order Comment: NOTIF IED,KAH,[id number] Performed By: #### C K, BMP, SCAN CBC, PTT, BNP, PT, TROP #### [address] CK [Catalytic activity/Vol] 108 U/L Normal 22-269 [facility] Comment on above: Performed By: #### C K, BMP, SCAN CBC, PTT, BNP, PT, TROP #### [address] CK [Catalytic activity/Vol] 101 U/L Normal 22-269 [facility] Comment on above: Performed By: #### C K, BMP, SCAN CBC, PTT, BNP, PT, TROP #### [address] Creatinine Kinase MBon 03-20 CK.MB [Mass/Vol] 1.9 ng/mL Normal 0.6-6.3 [facility] Comment on above: Order Comment: NOTIF IEDNAZ,145 Performed By: #### C K, BMP, SCAN CBC, PTT, BNP, PT, TROP #### [address] CKMB Relative Index 2.0 % Normal 0.00-2.50 [facility] Comment on above: Order Comment: NOTIF IEDNAZ,145 Performed By: #### C K, BMP, SCAN CBC, PTT, BNP, PT, TROP #### [address] CK.MB [Mass/Vol] 2.5 ng/mL Normal 0.6-6.3 [facility] Comment on above: Performed By: #### C K, BMP, SCAN CBC, PTT, BNP, PT, TROP #### [address] CKMB Relative Index 2.3 % Normal 0.00-2.50 [facility] Comment on above: Performed By: #### C K, BMP, SCAN CBC, PTT, BNP, PT, TROP #### [address] CK.MB [Mass/Vol] 3.1 ng/mL Normal 0.6-6.3 [facility] Comment on above: Performed By: #### C K, BMP, SCAN CBC, PTT, BNP, PT, TROP #### [facility] [address] CKMB Relative Index 3.0 % High 0.00-2.50 [facility] Comment on above: Performed By: #### C K, BMP, SCAN CBC, PTT, BNP, PT, TROP #### [facility] [address] ECG 12 lead ECGon 03-20-2021 ECG 12 lead ECG [facility] Main [place] [address] [place] [address] Electrocardiograph Report Signed Patient: Fausto Corrigan MR#: [id number] 0 : 1960 Acct:[id number] Age/Sex: 60 / F ADM Date: 03/19/21 Loc: Room: [address] [place] [address] Type: DIS IN Attending Dr: Kal Kellogg [...] 03/20/21 1436 Signed By: 03/22/21 1705 Normal [facility] Magnesiumon 03-20-2021 Magnesium [Mass/Vol] 2.0 mg/dL Normal 1.6-2.6 [facility] Comment on above: Result Comment: PERF ORMED BY: [place] [address] PATHOLOGIST SCALLOP CUTTER MACHINE GIA SHAH M.D. Performed By: #### C K, BMP, SCAN CBC, PTT, BNP, PT, TROP #### [address] Partial Thromboplastin Timeo n 03-20-2021 aPTT Coag (Bld) [Time] 44.7 s High 25.1-36.5 [facility] Comment on above: Order Comment: List the anticoagulant: HEPARIN, UNFRACTIONATED Result Comment: PERF ORMED BY: [place] [address] PATHOLOGIST SCALL[employer] CUTTER MACHINE GIA SHAH M.D. Performed By: #### C K, BMP, SCAN CBC, PTT, BNP, PT, TROP #### [address] Scan and CBCon 03-20-2021 Basophils (Bld) [#/Vol] 0.1 10*3/uL Normal 0.0-0.2 [facility] Comment on above: Performed By: #### C K, BMP, SCAN CBC, PTT, BNP, PT, TROP #### [address] Basophils/100 WBC (Bld) 0.6 % Normal . [facility] Comment on above: Performed By: #### C K, BMP, SCAN CBC, PTT, BNP, PT, TROP #### [address] Eosinophils (Bld) [#/Vol] 0.3 10*3/uL Normal 0.0-0.45 [facility] Comment on above: Performed By: #### C K, BMP, SCAN CBC, PTT, BNP, PT, TROP #### [address] Eosinophils/100 WBC (Bld) 1.8 % Normal . [facility] Comment on above: Performed By: #### C K, BMP, SCAN CBC, PTT, BNP, PT, TROP #### [address] Erythrocyte distribution width (RBC) [Ratio] 13.2 % Normal 11.9-15.3 [facility] Comment on above: Performed By: #### C K, BMP, SCAN CBC, PTT, BNP, PT, TROP #### [address] Hematocrit (Bld) [Volume fraction] 42.5 % Normal 34.0-46.4 [facility] Comment on above: Performed By: #### C K, BMP, SCAN CBC, PTT, BNP, PT, TROP #### [address] Hemoglobin (Bld) [Mass/Vol] 14.5 g/dL Normal 11.8-15.4 [facility] Comment on above: Performed By: #### C K, BMP, SCAN CBC, PTT, BNP, PT, TROP #### [address] Lymphocytes (Bld) [#/Vol] 5.2 10*3/uL High 1.00-4.8 [facility] Comment on above: Performed By: #### C K, BMP, SCAN CBC, PTT, BNP, PT, TROP #### [address] Lymphocytes/100 WBC (Bld) 31.5 % Normal . [facility] Comment on above: Performed By: #### C K, BMP, SCAN CBC, PTT, BNP, PT, TROP #### [address] MCH (RBC) [Entitic mass] 31.1 pg Normal 24.7-34.3 [facility] Comment on above: Performed By: #### C K, BMP, SCAN CBC, PTT, BNP, PT, TROP #### [address] MCV (RBC) [Entitic vol] 90.8 fL Normal 80-100 [facility] Comment on above: Performed By: #### C K, BMP, SCAN CBC, PTT, BNP, PT, TROP #### [address] Mean Corpuscular HGB Conc 34.2 g/dL Normal 32.0-35.0 [facility] Comment on above: Performed By: #### C K, BMP, SCAN CBC, PTT, BNP, PT, TROP #### [facility] [address] [place] [address] [place] Monocytes (Bld) [#/Vol] 1.1 10*3/uL High 0.0-0.8 [facility] Comment on above: Performed By: #### C K, BMP, SCAN CBC, PTT, BNP, PT, TROP #### [facility] [address] Monocytes/100 WBC (Bld) 6.7 % Normal . [facility] Comment on above: Performed By: #### C K, BMP, SCAN CBC, PTT, BNP, PT, TROP #### [facility] [address] [place] [address] [place] Neutrophils (Bld) [#/Vol] 9.8 10*3/uL High 1.8-7.7 [facility] Comment on above: Performed By: #### C K, BMP, SCAN CBC, PTT, BNP, PT, TROP #### [facility] [address] [place] [address] [place] Neutrophils/100 WBC (Bld) 59.4 % Normal . [facility] Comment on above: Performed By: #### C K, BMP, SCAN CBC, PTT, BNP, PT, TROP #### [facility] [address] [place] [address] [place] Nucleated RBC/100 WBC (Bld) [Ratio] 0.2 % Normal 0-0.5 [facility] Comment on above: Performed By: #### C K, BMP, SCAN CBC, PTT, BNP, PT, TROP #### [facility] [address] [place] [address] [place] Platelet Estimate Normal Normal Normal [facility] Comment on above: Performed By: #### C K, BMP, SCAN CBC, PTT, BNP, PT, TROP #### [facility] [address] [place] [address] [place] Platelet mean volume (Bld) [Entitic vol] 9.4 fL Normal 6.3-10.7 [facility] Comment on above: Performed By: #### C K, BMP, SCAN CBC, PTT, BNP, PT, TROP #### [address] Platelet Morphology Normal Normal Normal [facility] Comment on above: Result Comment: PERF ORMED BY: [place] [address] PATHOLOGIST SCALLOP CUTTER MACHINE GIA SHAH M.D. Performed By: #### C K, BMP, SCAN CBC, PTT, BNP, PT, TROP #### [address] Platelets (Bld) [#/Vol] 305 10*3/uL Normal 150-450 [facility] Comment on above: Performed By: #### C K, BMP, SCAN CBC, PTT, BNP, PT, TROP #### [address] RBC (Bld) [#/Vol] 4.68 10*6/uL Normal 3.60-5.00 [facility] Comment on above: Performed By: #### C K, BMP, SCAN CBC, PTT, BNP, PT, TROP #### [address] RBC morphology finding Nom (Bld) Normal Normal [facility] Comment on above: Performed By: #### C K, BMP, SCAN CBC, PTT, BNP, PT, TROP #### [address] WBC (Bld) [#/Vol] 16.5 10*3/uL High 4.5-11.0 [facility] Comment on above: Performed By: #### C K, BMP, SCAN CBC, PTT, BNP, PT, TROP #### [address] Troponin I(TnI)on 03-20-2021 Troponin I.cardiac [Mass/Vol] 4.57 ng/mL Off scale high 0-0.02 [facility] Comment on above: Order Comment: NOTIF NAZ WHITESIDE,[id number] Result Comment: MILLA CT Cut off value > or equal to 0.03 ng/mL in conjunction with clinical conditions of myocardial infarction. (www.escardio.org/guidelines) PERFORMED BY: [place] [address] PATHOLOGIST SCALLOP CUTTER MACHINE GIA SHAH M.D. Performed By: #### C K, BMP, SCAN CBC, PTT, BNP, PT, TROP #### [facility] [address] [place] [address] Troponin I.cardiac [Mass/Vol] 5.16 ng/mL Off scale high 0-0.02 [facility] Comment on above: Result Comment: MILLA CT Cut off value > or equal to 0.03 ng/mL in conjunction with clinical conditions of myocardial infarction. (www.escardio.org/guidelines) PERFORMED BY: [place] [address] PATHOLOGIST SCALLOP CUTTER MACHINE GIA SHAH M.D. Performed By: #### C K, BMP, SCAN CBC, PTT, BNP, PT, TROP #### [address] Troponin I.cardiac [Mass/Vol] 4.93 ng/mL Off scale high 0-0.02 [facility] Comment on above: Result Comment: MILLA CT Cut off value > or equal to 0.03 ng/mL in conjunction with clinical conditions of myocardial infarction. (www.escardio.org/guidelines) PERFORMED BY: [place] [address] PATHOLOGIST SCALLOP CUTTER MACHINE GIA SHAH M.D. Performed By: #### C K, BMP, SCAN CBC, PTT, BNP, PT, TROP #### [facility] [address] [place] [address] [place] XR chest 1V portableon 03-20 XR chest 1V portable [facility] Main [place] [address] [place] [address] XRay Report Signed Patient: Fausto Corrigan MR#: [id number] 0 : 1960 Acct:[id number] Age/Sex: 60 / F ADM Date: 03/19/21 Loc: Room: [address] [place] [address] Type: ADM IN Attending Dr: Kal Kellogg [...] Robel Roland M.D.03/20/2021 8:58 AM Dictation Location: [place] [address] Transcribed By: [facility] 03/20/21 0858 Dictated By: Robel Roland DO 03/20/21 0857 Signed By: 03/20/21 0858 Normal [facility] B-Type Natriuretic Peptideon 03-19-2021 Natriuretic peptide B (Bld) [Mass/Vol] 117.0 pg/mL High 5-100 [facility] Comment on above: Result Comment: PERF ORMED BY: [place] [address] PATHOLOGIST SCALLOP CUTTER MACHINE GIA SHAH M.D. Performed By: #### C K, BMP, SCAN CBC, PTT, BNP, PT, TROP #### [facility] [address] [place] [address] Basic Metabolic Panelon 02-26 Calcium [Mass/Vol] 9.9 mg/dL Normal 8.2-10.2 [facility] Comment on above: Performed By: #### C K, BMP, SCAN CBC, PTT, BNP, PT, TROP #### [facility] [address] [place] [address] Chloride [Moles/Vol] 95 mmol/L Normal 95-114 [facility] Comment on above: Performed By: #### C K, BMP, SCAN CBC, PTT, BNP, PT, TROP #### [address] CO2 [Moles/Vol] 28.2 mmol/L Normal 22.0-30.0 [facility] Comment on above: Performed By: #### C K, BMP, SCAN CBC, PTT, BNP, PT, TROP #### [facility] [address] Creatinine [Mass/Vol] 1.41 mg/dL High 0.44-1.03 [facility] Comment on above: Performed By: #### C K, BMP, SCAN CBC, PTT, BNP, PT, TROP #### [address] Creatinine Clr Calc Pharmacy 38.52 [facility] Comment on above: Result Comment: PERF ORMED BY: [place] [address] PATHOLOGIST SCALLOP CUTTER MACHINE GIA SHAH M.D. Performed By: #### C K, BMP, SCAN CBC, PTT, BNP, PT, TROP #### [address] Estimated GFR ( [place] 46 [facility] Comment on above: Result Comment: GFR estimated reference range: According to KDOQI guidelines, <60 ml/min/1.73m2 is sufficient to diagnose a patient with chronic kidney disease. Performed By: #### C K, BMP, SCAN CBC, PTT, BNP, PT, TROP #### [address] Estimated GFR (Non- Am 38 [facility] Comment on above: Performed By: #### C K, BMP, SCAN CBC, PTT, BNP, PT, TROP #### [address] Glucose [Mass/Vol] 143 mg/dL High 70-100 [facility] Comment on above: Result Comment: [place] Glucose Reference Range is dependent on time and content of last meal. Glucose of more than 200 mg/dL in a nonstressed, ambulatory subject supports the diagnosis of Diabetes Mellitus. ADA recommended reference range Performed By: #### C K, BMP, SCAN CBC, PTT, BNP, PT, TROP #### [facility] [address] Potassium [Moles/Vol] 3.4 mmol/L Low 3.5-5.1 [facility] Comment on above: Performed By: #### C K, BMP, SCAN CBC, PTT, BNP, PT, TROP #### [facility] [address] Sodium [Moles/Vol] 139 mmol/L Normal 136-146 [facility] Comment on above: Performed By: #### C K, BMP, SCAN CBC, PTT, BNP, PT, TROP #### [facility] [address] Urea nitrogen [Mass/Vol] 28 mg/dL High 9-23 [facility] Comment on above: Performed By: #### C K, BMP, SCAN CBC, PTT, BNP, PT, TROP #### [facility] [address] COVID-19 Antigenon 1 COVID-19 [facility]igen [facility] [...] its performance Kristan Disclaimer characteristic determined by [employer] and Kristan Disclaimer validated at [facility]. This Kristan Disclaimer test has [...] is terminated or revoked sooner. PERFORMED BY: [place] [id number] PATHOLOGIST SCALLOP CUTTER MACHINE GIA SHAH M.D. Normal [facility] Comment on above: Performed By: #### C OVID 19 [facility] [place] [place], COVID-19 KRISTAN #### [facility] [address] [place] [id number] [facility] COVID-19 FRMCon 03-19-2021 SARS-CoV-2 (COVID-19) RNA SHERRIE+probe Ql (Unsp spec) Negative Normal Negative [facility] Comment on above: Order Comment: Healt hcare Worker?: N Result Comment: Testing for SARS-CoV-2 by RT-PCR This test was developed and its performance characteristics determined by [employer] and validated at the [facility]. This test has not been [...] is terminated or revoked sooner. PERFORMED BY: [place] [id number] PATHOLOGIST SCALLOP CUTTER MACHINE GIA SHAH M.D. Performed By: #### C OVID 19 [facility] [place] [place], COVID-19 KRISTAN #### [facility] [address] [place], [place] [id number] [facility] Creatine Kinaseon 03-19-2021 CK [Catalytic activity/Vol] 123 U/L Normal 22-269 [facility] Comment on above: Performed By: #### C K, BMP, SCAN CBC, PTT, BNP, PT, TROP #### [place] [id number] [facility] ECG 12 lead ECGon 03-19-2021 ECG 12 lead ECG [facility] [place] [address] Electrocardiograph Report Signed Patient: Fausto Corrigan MR#: [id number] 0 : 1960 Acct:[id number] Age/Sex: 60 / F ADM Date: 03/19/21 Loc: 4C Room: [address] [place] [address] Type: ADM IN Attending Dr: Kal Kellogg [...] rhythm Inferior infarct , possibly acute ACUTE CT / STEMI Consider right ventricular involvement in acute inferior infarct Abnormal ECG When compared with ECG of 19-MAR-2021 20:15, (Unconfirmed) No significant change was found Confirmed by LAYNE SIMON DO ([id number]) on 03/20/2021 2:13:27 AM Referred By: Electronically Signed By:LAYNE SIMON DO Transcribed By: MUS Dictated By: Layne Simon DO 03/19/212021 Signed By: 03/20/21 0213 [facility] ECG 12 lead ECG [facility] Main [place] [id number] Electrocardiograph Report Signed Patient: Fausto Corrigan MR#: [id number] 0 : 1960 Acct:[id number] Age/Sex: 60 / F ADM Date: 03/19/21 Loc: 4C Room: [address] [place] [address] Type: ADM IN Attending Dr: Kal Kellogg [...] consider inferior injury or acute infarct ACUTE CT / STEMI Consider right ventricular involvement in acute inferior infarct Abnormal ECG No previous ECGs available Confirmed by LAYNE SIMON DO ([id number]) on 03/20/2021 2:13:27 AM Referred By: Electronically Signed By:LAYNE SIMON DO Transcribed By: MUS Dictated By: Layne Simon DO 03/19/212014 Signed By: 03/20/21 0213 [facility] Partial Thromboplastin Timeo n 03-19-2021 aPTT Coag (Bld) [Time] 29.7 s Normal 25.1-36.5 [facility] Comment on above: Result Comment: PERF ORMED BY: [place] [address] PATHOLOGIST SCALLOP CUTTER MACHINE GIA SHAH M.D. Performed By: #### C K, BMP, SCAN CBC, PTT, BNP, PT, TROP #### [facility] [address] [place] [address] Prothrombin Time INRon 03-19 INR Coag (PPP) [Relative time] 1.1 {INR} [facility] Comment on above: Result [...] SCAN CBC, PTT, BNP, PT, TROP #### [facility] [address] [place] [address] PT Coag (PPP) [Time] 12.2 s Normal 9.0-12.9 [facility] Comment on above: Performed By: #### C K, BMP, SCAN CBC, PTT, BNP, PT, TROP #### [address] Scan and CBCon 03-19-2021 Basophils (Bld) [#/Vol] 0.2 10*3/uL Normal 0.0-0.2 [facility] Comment on above: Performed By: #### C K, BMP, SCAN CBC, PTT, BNP, PT, TROP #### [address] Basophils/100 WBC (Bld) 0.9 % Normal . [facility] Comment on above: Performed By: #### C K, BMP, SCAN CBC, PTT, BNP, PT, TROP #### [address] Eosinophils (Bld) [#/Vol] 0.4 10*3/uL Normal 0.0-0.45 [facility] Comment on above: Performed By: #### C K, BMP, SCAN CBC, PTT, BNP, PT, TROP #### [address] Eosinophils/100 WBC (Bld) 2.1 % Normal . [facility] Comment on above: Performed By: #### C K, BMP, SCAN CBC, PTT, BNP, PT, TROP #### [address] Erythrocyte distribution width (RBC) [Ratio] 13.3 % Normal 11.9-15.3 [facility] Comment on above: Performed By: #### C K, BMP, SCAN CBC, PTT, BNP, PT, TROP #### [address] Hematocrit (Bld) [Volume fraction] 46.2 % Normal 34.0-46.4 [facility] Comment on above: Performed By: #### C K, BMP, SCAN CBC, PTT, BNP, PT, TROP #### [address] Hemoglobin (Bld) [Mass/Vol] 15.7 g/dL High 11.8-15.4 [facility] Comment on above: Performed By: #### C K, BMP, SCAN CBC, PTT, BNP, PT, TROP #### [address] Lymphocytes (Bld) [#/Vol] 5.0 10*3/uL High 1.00-4.8 [facility] Comment on above: Performed By: #### C K, BMP, SCAN CBC, PTT, BNP, PT, TROP #### [address] Lymphocytes/100 WBC (Bld) 27.2 % Normal . [facility] Comment on above: Performed By: #### C K, BMP, SCAN CBC, PTT, BNP, PT, TROP #### [address] MCH (RBC) [Entitic mass] 31.2 pg Normal 24.7-34.3 [facility] Comment on above: Performed By: #### C K, BMP, SCAN CBC, PTT, BNP, PT, TROP #### [address] MCV (RBC) [Entitic vol] 91.8 fL Normal 80-100 [facility] Comment on above: Performed By: #### C K, BMP, SCAN CBC, PTT, BNP, PT, TROP #### [address] Mean Corpuscular HGB Conc 34.0 g/dL Normal 32.0-35.0 [facility] Comment on above: Performed By: #### C K, BMP, SCAN CBC, PTT, BNP, PT, TROP #### [address] Monocytes (Bld) [#/Vol] 1.4 10*3/uL High 0.0-0.8 [facility] Comment on above: Performed By: #### C K, BMP, SCAN CBC, PTT, BNP, PT, TROP #### [facility] [address] [place] [address] [place] Monocytes/100 WBC (Bld) 7.5 % Normal . [facility] Comment on above: Performed By: #### C K, BMP, SCAN CBC, PTT, BNP, PT, TROP #### [facility] [address] Neutrophils (Bld) [#/Vol] 11.5 10*3/uL High 1.8-7.7 [facility] Comment on above: Performed By: #### C K, BMP, SCAN CBC, PTT, BNP, PT, TROP #### [address] Neutrophils/100 WBC (Bld) 62.3 % Normal . [facility] Comment on above: Performed By: #### C K, BMP, SCAN CBC, PTT, BNP, PT, TROP #### [address] Nucleated RBC/100 WBC (Bld) [Ratio] 0.2 % Normal 0-0.5 [facility] Comment on above: Performed By: #### C K, BMP, SCAN CBC, PTT, BNP, PT, TROP #### [address] Platelet Estimate Normal Normal Normal [facility] Comment on above: Performed By: #### C K, BMP, SCAN CBC, PTT, BNP, PT, TROP #### [address] Platelet mean volume (Bld) [Entitic vol] 9.6 fL Normal 6.3-10.7 [facility] Comment on above: Performed By: #### C K, BMP, SCAN CBC, PTT, BNP, PT, TROP #### [address] Platelet Morphology Normal Normal Normal [facility] Comment on above: Result Comment: PERF ORMED BY: [place] [address] PATHOLOGIST SCALLOP CUTTER MACHINE GIA SHAH M.D. Performed By: #### C K, BMP, SCAN CBC, PTT, BNP, PT, TROP #### [facility] [address] Platelets (Bld) [#/Vol] 313 10*3/uL Normal 150-450 [facility] Comment on above: Performed By: #### C K, BMP, SCAN CBC, PTT, BNP, PT, TROP #### [facility] [address] RBC (Bld) [#/Vol] 5.03 10*6/uL High 3.60-5.00 [facility] Comment on above: Performed By: #### C K, BMP, SCAN CBC, PTT, BNP, PT, TROP #### [facility] [address] RBC morphology finding Nom (Bld) Normal Normal [facility] Comment on above: Performed By: #### C K, BMP, SCAN CBC, PTT, BNP, PT, TROP #### [address] WBC (Bld) [#/Vol] 18.4 10*3/uL High 4.5-11.0 [facility] Comment on above: Performed By: #### C K, BMP, SCAN CBC, PTT, BNP, PT, TROP #### [address] Kristan Ag Negativeon 03-19-20 21 Kristan Ag Negative Negative Normal Negative [facility] Comment on above: Result Comment: This is a duplicate Kristan SARS Antigen ([place]OLTON) result to be used for statistical tracking purpose only. PERFORMED BY: [place] [address] PATHOLOGIST SCALLOP CUTTER MACHINE GIA SHAH M.D. Performed By: #### C OVID 19 [facility] [place] [place], COVID-19 KRISTAN #### [address] Troponin I(TnI)on 03-19-2021 Troponin I.cardiac [Mass/Vol] 4.25 ng/mL Off scale high 0-0.02 [facility] Comment on above: Result Comment: Crit ical value result called at 2209 on 03/19/[address] Cut off value > or equal to 0.03 ng/mL in conjunction with clinical conditions of myocardial infarction. (www.escardio.org/guidelines) PERFORMED BY: [facility] [address] [place] [address] PATHOLOGIST SCALLOP CUTTER MACHINE GIA SHAH M.D. Performed By: #### C K, BMP, SCAN CBC, PTT, BNP, PT, TROP #### [facility] [address] [place] [id number] [facility] CNOVon 03-17-2018 CNOV Office Visit ([id number]) ----FAUSTO CORRIGAN ([id number]) 1960 [facility] Time Provider Department03/17/18 1:30 PM THOMAS DELGADILLO [...] Alcohol use: No Drug use: NoREVIEW OF Twist and Shout noteMSK: + as noted in HPI.Physical Examination:On [...] Protective sensation intact at all pedalsites via [place] Gabrielle 5.07 monofilament bilateral. 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]Order(s):XR FOOT GENERAL 3V AP/LAT/OBL RT [[id number]] Order #: [id number] CONSULT TO ORTHOTIC/PROSTHETIC [[id number]] Order #: [id number]: 1Prescriptions as of 03/17/2018 Sig: ALBUTEROL SULFATE [...] (around 05/17/2018).Follow-up and Disposition History RecordedEncounter Number: [id number] Status:Closed by THOMAS DELGADILLO DPM on 04/17/18 [facility] PROGRESSon 03-17-2018 Protein HNO ID: [id number] thor: Thomas Jiang: (none)Author Type: PhysicianType: Progress [...] Alcohol use: No Drug use: NoREVIEW OF Twist and Shout noteMSK: + as noted in HPI.Physical Examination:On General Observation: Patient is a pleasant, cooperative, well awgbviogv4 year oldadult female. The patient is alert [...] Protective sensation intact at allpedal sites via Tsaile Gabrielle 5.07 monofilament bilateral.Proprioception intact at the [...] patient to obtain and use to see noland [facility] Follow up in 2 monthsYosi Yu DPM PGY2I personally saw and evaluated the patient. I reviewed the resident'snote. I agree with the resident's assessment and plan unless otherwisenoted.Thomas Delgadillo DPM, FACFAS Normal [facility] Migue 09-01-2017 OMAR Telephone (LUCIA) ----FAUSTO CORRIGAN ([id number]) 1960 [facility] Time Provider Pblojjaxzy91/6/17 AIMEE HERNANDEZ During your visit today, we [...] - AnaphylaxisDate Reviewed: 07/26/2017Reviewed by: Sis Hogan [facility] - Fully AssessedReason for Visit: Insurance Authorization [[id number]] Cmt: pt called requesting prior auth for [...] Status:Closed by KRISTA LAGOS on 09/01/17 Normal [facility] CNCOon 08-18-2017 CNCO Letter TextNov2016Fausto Corrigan[address] [address]Mqza Ms. Fausto Corrigan,It was a pleasure to see you in the Department of Pulmonary Medicine on07/26/2017.Attached please find a copy of your Visit Summary.I appreciate having the opportunity to see you. If I can be of furtherassistance to you, or if you have any questions regarding this report, pleasefeel free to contact my office.Sincerely,NATE Chaparro/Xinchment: Visit Summary Normal [facility] CBCon 07-26-2017 Erythrocyte distribution width Auto Ratio (RBC) 12.9 % Normal 11.5-15.0 [facility] Comment on above: Performed By: #### C BC, CMP ####[facility] [address] [place], [place] [phone] Erythrocytes (RBC) 10*6/uL Normal <0.01 [facility] Comment on above: Performed By: #### C BC, CMP ####[facility] [address], [place] [phone] Erythrocytes (RBC) 5.08 10*6/uL Normal 3.90-5.20 [facility] Comment on above: Performed By: #### C BC, CMP ####[facility] [address], [place] [phone] Hematocrit (HCT) 47.7 % High 36.0-46.0 [facility] Comment on above: Performed By: #### C BC, CMP ####[facility] [address] [place], [place] [phone] Hemoglobin mass conc (Bld) 15.3 g/dL Normal 11.5-15.5 [facility] Comment on above: Performed By: #### Andrzej TALLEY, CMP ####[place] [address] [address], [place] [phone] MCH 30.1 pG Normal 26.0-34.0 [facility] Comment on above: Performed By: #### Andrzej TALLEY, CMP ####[address] [place], [place] [phone] MCHC mass conc (RBC) 32.1 g/dL Normal 30.5-36.0 [facility] Comment on above: Performed By: #### Andrzej TALLEY, CMP ####[address] [phone] MCV 93.9 fL Normal 80.0-100.0 [facility] Comment on above: Performed By: #### Andrzej TALLEY, CMP ####[address] [phone] Platelet mean volume (PMV) 11.9 fL Normal 9.0-12.7 [facility] Comment on above: Performed By: #### Andrzej TALLEY, CMP ####[address] [phone] Platelets 283 10*3/uL Normal 150-400 [facility] Comment on above: Performed By: #### Andrzej TALLEY, CMP ####[address] [phone] WBC (Leukocytes) 13.36 10*3/uL High 3.70-11.00 [facility] Comment on above: Performed By: #### Andrzej TALLEY, CMP ####[facility] [place] [address] [place], [place] [phone] CNOVon 07-26-2017 CNOV Office Visit (PSSCMN) ----FAUSTO CORRIGAN ([id number]) 1960 FDate Time Provider Vfvlopympk98/30/17 3:30 PM [facility] PSSCMN During your visit today, we recorded the following information about you: Pulse Blood pressure Weight Height 75/minute 120/69 73 kg 1.52 Shannan Sosa DO 07/26/2017 5:18 PM SignedANESTHESIA PRE-OPERATIVE ASSESSMENT (PACE)SERVICE DATE: 07/26/2017SERVICE TIME: 4:56 PMASSESSMENT ANDamp; PLAN:Fausto Corrigan is a 57 year old female scheduled for sigmoid colectomy w/ MIXER RUNNER perSurgery Request Case in MAIN on 08/03/17.PMH:COPD [...] lb 15 oz) SpO2 96% BMI 31.6 kg/b7Zfxvv signs completed by: IMPACTWeight acquired: per HANDamp;P. [...] 4:26 PM PAGER/CONTACT #:Referring Provider: ESEQUIEL THOMAS [[id number]]Allergies As of Date: 07/26/2017 Noted Allergy ReactionSULFA (SULFONAMIDE ANTIBIOTICS) 06/07/2017 4 - Hives 10 - AnaphylaxisDate Reviewed: 07/26/2017Reviewed by: Sis Kirkpatrick [facility] - Fully AssessedPrimary Visit Diagnosis:Pre-op evaluation [Z01.818]Prescriptions [...] Cosign Required by: James Vogel III[] Normal [facility] CNOV Office Visit (IMPAMN) ----FAUSTO CORRIGAN ([id number]) 1960 FDate Time Provider Biowmpyzvb69/30/17 2:15 PM RIVERA PATRICIA) JULIO C During [...] or fevers.Neuro: No history of TIA's, stroke, SISAL PICKER tumor, impaired sensorium, hemiplegia,paraplegia or quadriplegia. No neurological symptoms or problems.Respiratory: COPD on nebulizersCardiovascular: No history of HTN requiring medication, no history of angina,CHF, CT, cardiac surgery or stents. Denies rest pain, gangrene orrevascularization/amputati on for PVD. No history of cardiovascular symptoms orproblems.GI: Peptic Ulcer Disease on ZantacGU: No history of UTI in past 6 weeks. No history of renal failure. Notcurrently on or requiring dialysis. No history of symptoms or problems.PATIENT COORDINATOR FRONT DESK: No vaginal bleeding due to menopause and [...] Fausto CorriganDATE: July 25, 2017 : 1:49 Saarh Kirkpatrick LPN 07/26/2017 4:05 PM SignedFausto Corrigan is a 57 year old female [facility] Surgeon: Dr. Fernandez of Surgery: 08/03/2017Planned Surgery/Procedure: Sigmoid Colectomy w/ Treverergies have been reviewed and verified. They include the following:Sulfa (Sulfonamide Antibiotics)Social HistorySubstance Use Topics- Smoking status: Former Smoker Years: 20.00 Types: Cigarettes Start date: 06/07/1997 Quit date: 06/26/2017- Smokeless tobacco: Never Used Comment: smokes 3-4 daily- Alcohol use NoMedications reviewed and updated: Armida Patricia MD 07/26/2017 4:05 PM Signed [facility] Instructions for SurgeryFOOD INSTRUCTIONS:NO solid food [...] visit please do nothesitate to contact the [facility] at [phone] or [phone], [phone].Signature: Rivera Patricia MDDate: July 26, 2017Referring Provider: ESEQUIEL THOMAS [[id number]]Allergies As of Date: 07/26/2017 Noted Allergy ReactionSULFA (SULFONAMIDE ANTIBIOTICS) 06/07/2017 4 - Hives 10 - AnaphylaxisDate Reviewed: 07/26/2017Reviewed by: Sis Hogan [facility] - Fully AssessedPrimary Visit Diagnosis:Chronic obstructive pulmonary disease, unspecified COPD type ([facility]) [J44.9] Other Visit Diagnoses:Pre-operative examination [...] HYCLATE 100 MG CAPSULE >> Sis Kirkpatrick [facility] 07/26/2017 3:41 PM >> SIS JOSUE WedJul 26, 2017 3:41 PM PREDNISONE 10 MG TABLET >> Sis Kirkpatrick [facility] 07/26/2017 3:41 PM >> SIS JOSUE WedJul 26, 2017 3:41 PM ATENOLOL 50 MG-CHLORTHALIDONE 25 MG TABLET >> Sis Kirkpatrick [facility] 07/26/2017 3:41 PM >> SIS JOSUE WedJul 26, 2017 3:41 PM OXYCODONE-ACETAMINOPHEN 5 MG-325 MG TABLET >> Sis Kirkpatrick [facility] 07/26/2017 3:41 PM >> SIS JOSUE WedJul 26, 2017 3:41 PM DOCUSATE SODIUM 100 MG CAPSULE >> Sis Kirkpatrick [facility] 07/26/2017 3:41 PM >> SIS JOSUE WedJul 26, 2017 3:41 PMProblem List As Of Date 07/26/2017 Noted Resolved 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 Other instructions from your clinician: [facility] Patient Instructions for Surgery FOOD INSTRUCTIONS: [...] please do not hesitate to contact the [facility] center at [phone] or [phone], ext [phone]. Signature: Rivera Patricia MD Date: July 26, 2017Encounter Number: [id number] Status:Closed by RIVERA PATRICIA MD on 07/26/17 Normal [facility] CNOV Office Visit (ENDOMN) ----FAUSTO CORRIGAN ([id number]) 1960 [facility] Time Provider Vlikgzsmwq00/30/17 1:20 PM IVAN HYDE) ENDOMN During your visit today, we recorded the following information about you: Weight 73 kgToshia Javed, RN, RN 07/26/2017 2:21 PM SignedThank you for choosing the [facility] Department of Endocrinology,Diabetes and Metabolism. [...] lost opportunity for patients to receive [facility] care at the [facility].To Cancel an appointment, please choose one of the following: - Call the Appointment Call Center at [phone] - From [employer], Go to Appointments ? Cancel ApptsIf cancelling, consider your need to reschedule to prevent further delays inyour care.To Schedule an appointment, please choose one of the following: - Call the Appointment Call Center at [phone] - From MyChart, Go to Appointments ? Request an AppSeth Hyde MD 07/27/2017 11:34 PM SignedDIABETES INITIAL CONSULTPATIENT NAME: Fausto CorriganMRN: [id number] DATE: 07/26/2017SERVICE TIME:REASON FOR CONSULT: DM Type 2REQUESTING PHYSICIAN:Ivan Hyde MD[address] [address]PKKTEET CARE PHYSICIAN: No PcpSUBJECTIVEHISTORY OF PRESENT ILLNESS: [...] EXAM:Wt 73 kg (161 lb) BMI 31.61 kg/i9Szqdqhp: Well appearing, alert, in no acute distress, [...] 26, 2017TIME: 2:32 PMReferring Provider: IVAN HYDE) [[id number]]Allergies As of Date: 07/26/2017 Noted Allergy ReactionSULFA (SULFONAMIDE ANTIBIOTICS) 06/07/2017 4 - Hives 10 - AnaphylaxisDate Reviewed: 07/26/2017Reviewed by: Sis Kirkpatrick [facility] - Fully AssessedReason for Visit: Diabetes [34]Primary Visit Diagnosis:Uncontrolled type 2 diabetes mellitus without complication, without long-term current use of insulin (HCC) [E11.65]Order(s):HB A1C B/O [3529914] Order #: [id number] TSH BLD [SQTSH] Order #: [id number] FUTUREPrescriptions as of 07/26/2017 Sig: ALBUTEROL SULFATE [...] your clinician: Thank you for choosing the [facility] Department of Endocrinology, Diabetes and Metabolism. Being able to provide excellent health care has allowed us to be # 3 in the country according to [employer]. Did you know that you need to call 48 hours in advance of your scheduled visit, if you are unable to make your appointment? The Endocrinology and Metabolism Caroline thanks you for your commitment, because patients not showing to their appointment results in a lost opportunity for patients to receive world class health care at the [facility]. To Cancel an appointment, please choose one of the following: - Call the Appointment Call Center at [phone] - From [employer], Go to Appointments ? Cancel Appts If cancelling, consider your need to reschedule to prevent further delays in your care. To Schedule an appointment, please choose one of the following: - Call the Appointment Call Center at [phone] - From [employer], Go to Appointments ? 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 [address] [place] [address] Test Date: 7209-25-37Kwk Name: FAUSTO CORRIGAN Department: Room:Gender: Female Bar Assistant: DIO VDOB: 1960 Requested By:Order Number: [id number] Reading MD: Interpretive StatementsTest no. 2 07/26/2017 12:14:11PM PRE/POST- ATS acceptability and repeatabilitystandards for spirometry met.Medications and Allergies were reviewed forpossibledrug interactions per policy MM-102. No contraindications or sensitivities werenoted. Respiratory meds taken in past 72H: Albuterol / 16 hours before testing. 4 puffs albuterol (360 mcg) delivered by MDI via valved holding chamber, HRpre=80/min, HRpost= 72/min. /JAQUAN//DIO nguyen??IMPRESSION: [facility] Pulmonary Function Lab Pred LLN ULN Pre % Post % % chgDate [id number] 798078Pdkc 11:44AM 12:10PM Height 152.4 152.4Weight 72.6 72.6 [...] tolerated-Early ambulation and physical therapy as tolerated yvzx-wzemkhaebkz-Zagplfkm narcotics as much as possible-Bronchodilators as needed [...] illnessMARIO ALBERTO Chaparroulmonary and Critical Care MedicineRespiratory InstituteGuernsey Memorial HospitalAimee Hernandez MD 07/26/2017 1:35 PM AddendumConsider lung cancer screening in the futureI would like to see you the day before your surgery to make sure you're feelingbetterPlease get the 6 minute walk test the same dayReferring Provider: ESEQUIEL THOMAS [[id number]]Allergies As of Date: 07/26/2017 Noted Allergy ReactionSULFA [...] wheezing.).Disp: 1 InhalerRfl: 5 SIX MINUTE WALK [2353696] Order #: [id number] FUTUREPrescriptions as of 07/26/2017 Sig: ALBUTEROL SULFATE [...] (on 08/23/2017).Follow-up and Disposition History RecordedEncounter Number: [id number] Status:Closed by AIMEE HERNANDEZ MD on 07/26/17 Normal [facility] Comp Metabolic Panelon 07-26 Alanine aminotransferase (ALT) 19 U/L Normal 7-38 [facility] Comment on above: Performed By: #### C BC, CMP ####[facility] [place] [phone] Albumin 4.3 g/dL Normal 3.9-4.9 [facility] Comment on above: Performed By: #### C BC, CMP ####[facility] [place] [phone] Alkaline phosphatase (ALP) 96 U/L Normal 32-117 [facility] Comment on above: Performed By: #### C BC, CMP ####[facility] [address] [place] [phone] Anion gap 18 mmol/L Normal 9-18 [facility] Comment on above: Performed By: #### C BC, CMP ####[facility] [address] [place] [phone] Aspartate aminotransferase (AST) 16 U/L Normal 13-35 [facility] Comment on above: Performed By: #### C BC, CMP ####[facility] [place], [place] [phone] Bilirubin (total) 0.2 mg/dL Normal 0.2-1.3 [facility] Comment on above: Performed By: #### C BC, CMP ####[facility] [place], [place] [phone] Calcium 9.8 mg/dL Normal 8.5-10.2 [facility] Comment on above: Performed By: #### C BC, CMP ####[place] [address] [address] [place], [place] [phone] Chloride 96 mmol/L Low 97-105 [facility] Comment on above: Performed By: #### C BC, CMP ####[place] [address] [address] [place] [phone] CO2 25 mmol/L Normal 22-30 [facility] Comment on above: Performed By: #### C BC, CMP ####[place] [address] [address], [place] [phone] Creatinine 0.98 mg/dL High 0.58-0.96 [facility] Comment on above: Performed By: #### C BC, CMP ####[place] [address] [address] [place], [place] [phone] eGFR (non-black) 59 . Normal [facility] Comment on above: Result Comment: [...] GFR. Performed By: #### C BC, CMP ####[place] [address] [address] [place], [place] [phone] eGFR (non-black) mL/min/{1.73_m2} Normal [facility] Comment on above: Performed By: #### C BC, CMP ####[address] [phone] Glucose mass conc 133 mg/dL High 74-99 [facility] Comment on above: Result Comment: The [place] Diabetes Association (ADA) provides guidance for cutoff [...] Standards of Medical Care in Diabetes 2016, [place] Diabetes Association. Diabetes Care. 2016.39(Suppl 1). Performed By: #### C BC, CMP ####[address] [phone] Potassium molar conc 3.9 mmol/L Normal 3.7-5.1 [facility] Comment on above: Performed By: #### C BC, CMP ####[address] [phone] Protein 7.5 g/dL Normal 6.3-8.0 [facility] Comment on above: Performed By: #### C BC, CMP ####[place] [address] [place] [place], [place] [phone] Sodium 139 mmol/L Normal 136-144 [facility] Comment on above: Performed By: #### C BC, CMP ####[place] [address] [place], [place] [phone] Urea nitrogen 20 mg/dL Normal 7-21 [facility] Comment on above: Performed By: #### C BC, CMP ####[address] [phone] Confirm Blood Typeon 017 ABO/RH(D) Positive Normal [facility] Comment on above: Performed By: #### C ONABO ####[facility] [address] [place], [place] [phone] OBSOLETEon 07-26-2017 OBSOLETE Procedure (PULLMN) ----FAUSTO CORRIGAN ([id number]) 1960 FDate Time Provider Vzhvgexfya49/30/17 9:00 AM PULM FCT LAB MAIN 6 ADDON PULLMN During your visit today, we recorded the following information about you:Referring Provider: ESEQUIEL THOMAS [[id number]]Allergies As of Date: 07/26/2017 Noted Allergy ReactionSULFA (SULFONAMIDE ANTIBIOTICS) 06/07/2017 4 - Hives 10 - AnaphylaxisDate Reviewed: 06/07/2017Reviewed by: Nicolle (Josr) JOSR [facility] - Fully AssessedReason for Visit: Spirometry [191]Primary Visit Diagnosis:Dyspnea, unspecified type [R06.00] Other Visit Diagnosis:Chronic obstructive pulmonary disease, unspecified COPD type (HCC) [J44.9]Order(s):SPIROMETRY WITH DILATOR IF OBSTRUCTED [2969003] Order #: [id number]. #:[id number] ons as of 07/26/2017 Sig: OXYCODONE-ACETAMINOPHEN 5 [...] fistula [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 Status:Closed by Meddle, CARMEL L on 07/26/17 [facility] PROGRESSon 07-26-2017 PROGRESS HNO ID: [id number] thor: Geoffrey (Res) Sofiarvice: (none)Author Type: ResidentType: [...] lb 15 oz) SpO2 96% BMI 31.6 kg/z6Clviv signs completed by: IMPACTWeight acquired: per HANDP. [...] 26, 2017 : 4:26 PM PAGER/CONTACT #: [facility] PROGRESS HNO ID: [id number] thor: Sis PIERSONervice: (none)Author Type: (none)Type: Progress NotesFiled: 07/26/2017 4:05 PMNote Text:Fausto Corrigan is a 57 year old female [facility]: Dr. Fernandez of Surgery: 08/03/2017Planned Surgery/Procedure: Sigmoid Colectomy w/ CRAAllergies have been reviewed and verified. They include the following:Sulfa (Sulfonamide Antibiotics)Social HistorySubstance Use Topics- Smoking status: Former Smoker Years: 20.00 Types: Cigarettes Start date: 06/07/1997 Quit date: 06/26/2017- Smokeless tobacco: Never Used Comment: smokes 3-4 daily- Alcohol use NoMedications reviewed and updated: Armida Kirkpatrick CASING FLUID TENDER Normal [facility] PROGRESS HNO ID: [id number] thor: Ivan Sheffield) MelitaSer: (none)Author Type: PhysicianType: Progress NotesFiled: 07/27/2017 11:34 PMNote Text:DIABETES INITIAL CONSULTPATIENT NAME: Fausto CorriganMRN: [id number] DATE: 07/26/2017SERVICE TIME:REASON FOR CONSULT: DM Type 2REQUESTING PHYSICIAN:Ivan Hyde MD[address] [place] [id number] [address]ISGHJSU CARE PHYSICIAN: No PcpSUBJECTIVEHISTORY OF PRESENT ILLNESS: [...] EXAM:Wt 73 kg (161 lb) BMI 31.61 kg/b8Qpftnnf: Well appearing, alert, in no acute distress, [...] years. She will start taking it again yabhlesgy262 mg twice a day. She has medication at home. Of importance is thattoday her fasting blood sugar was 1 33 mg/dL. We ordered a hemoglobin M7hmxmnj has not been done. We will see her back in 6 weeks a repeathemoglobin A1c. Her blood sugars should improve once she is off steroids.SIGNATURE: Ivan Hyde, MDDATE: July 26, 2017TIME: 2:32 PM Normal [facility] PROGRESS HNO ID: [id number] thor: Cristina Vernon RtService: (none)Author Type: (none)Type: Progress NotesFiled: 07/26/2017 1:40 PMNote Text: Radiology Service Progress NotePATIENT NAME: Fausto CorriganMRN: [id number] OF SERVICE: July 26, 2017TIME: 1:40 PMPATIENT IDENTITY VERIFICATION COMPLETED USING TWO (2) METHODS: Patientconfirmed name verbally and Date of .PATIENT GENDER DATA: MalePATIENT RELEVANT IMPLANT DATA REVIEWED: Not ApplicableRADIOLOGY DEPARTMENT: General X-ray: Exam(s) Completed: Chest X-RayPERIPHERAL IV DATA: Not applicableSIGNED BY: Cristina Vernon RtOct2016 1:40 PM Normal [facility] PROGRESS HNO ID: [id number] thor: Aimee Gonzalez: (none)Author Type: PhysicianType: Progress NotesFiled: 07/26/2017 3:23 PMNote Text:Respiratory InstitutePulmonary ConsultationCC: Pre-operative evaluationConsultation requested by Dr. Thomas for a pre-operative pulmonaryevaluation. My final recommendations will be communicated to 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 [address] [place] [address] Test Date: 2858-10-85Gzx Name: FAUSTO CORRIGAN Department: Room:Gender: Female Bar Assistant: DIO VDOB: 1960 Requested By:Order Number: [id number] Reading MD: Interpretive StatementsTest no. 2 07/26/2017 12:14:11PM PRE/POST- ATS acceptability andrepeatabilitystandards for spirometry met.Medications and Allergies were reviewed forpossibledrug interactions per policy MM-102. No contraindications orsensitivities werenoted. Respiratory meds taken in past 72H: Albuterol / 16 hours beforetesting. 4 puffs albuterol (360 mcg) delivered by MDI via valved holding chamber, HRpre=80/min, HRpost= 72/min. /JAQUAN//DIO nguyen??IMPRESSION: [facility] Pulmonary Function Lab Pred KALEE MARTINEZ Pre % Post % %chgDate 191933 583233Epmk 11:44AM 12:10PM Height 152.4 152.4Weight 72.6 72.6 [...] 4.28 1.06 34 1.36 4429FIF 50 1.99 2.3707A48/75 2.34 1.25 3.42 0.67 29 0.84 3625FE%FIF 53.13 61.2310XUO2 1.95 2.05 5PEF 5.36 3.63 7.09 4.30 80 5.37 20778DDH 10.82 10.59-2FETPEF 0.08 0.04-56VBe%FV 4.39 3.07 -30VBEex [...] (Gurinder Respiratoray Failure Index. Gurinder, AM. Nancie Pvpk4473; 232: 242). THaving a respiratory infection within the past month increases the risk. Macarioee with postponing surgery until Aug 24 to reduce her risk.RECOMMENDATIONS:In order to minimize the risk of complications and optimize pulmonarystatus, we recommend the following:-Encourage aggressive incentive spirometry hourly both ayse-operativelyand post-operatively as tolerated-Early ambulation and physical therapy as tolerated gzeh-cwmbkghuvrb-Vnipzpze narcotics as much as possible-Bronchodilators as needed [...] illnessAmy Santana, MDPulmonary and Critical Care MedicineRespiratory InstituteGuernsey Memorial Hospital Normal [facility] Type and SCR (30D)on 017 ABO/RH(D) Positive Normal [facility] Comment on above: Performed By: #### T SCR30 ####[facility] [address] [place], [place] [phone] Antibody Screen Negative Normal [facility] Comment on above: Performed By: #### T SCR30 ####[facility] [address] [place], [place] [phone] XR CHEST 2V FRONTAL/LATon XR CHEST 2V [...] abdomen suggest prior cholecystectomy.IMPRESSION:N o acute radiographic abnormality.Military Education Coordinator : PAUL Transcribe Date/Time: Jul 26 2017 2:28PDictated by : FABY SWANSON MDThigrady examination was interpreted and the report reviewed and electronically signed by: CORNELIUS BEAR MD on Jul 26 2017 4:55PM [id number] Normal [facility] HISTORY PHYSICALon HISTORY PHYSICAL HNO ID: [id number] thor: Rivera Sheffield) BhallaService: (none)Author Type: PhysicianType: HANDPFiled: 07/26/2017 8:42 PMNote Text:HISTORY AND PHYSICAL EXAMINATION (IMPACT)SERVICE DATE: 07/25/2017SERVICE TIME: 1:49 PMPRIMARY CARE PHYSICIAN: No PcpCHIEF COMPLAINT/HISTORY OF PRESENT ILLNESS:Ms. Corrigan is a 57 year old [place] preoperative[place]uation. My final recommendations will be [...] or fevers.Neuro: No history of TIA's, stroke, SISAL PICKER tumor, impaired sensorium,hemiplegia, paraplegia or quadriplegia. No neurological symptoms orproblems.Respiratory: COPD on nebulizersCardiovascular: No history of HTN requiring medication, no history ofangina, CHF, CT, cardiac surgery or stents. Denies rest pain, gangrene orrevascularization/amputati on for PVD. No history of cardiovascularsymptoms or problems.GI: Peptic Ulcer Disease on ZantacGU: No history of UTI in past 6 weeks. No history of renal failure. Notcurrently on or requiring dialysis. No history of symptoms or problems.PATIENT COORDINATOR FRONT DESK: No vaginal bleeding due to menopause and [...] July 25, 2017 : 1:49 PM Normal [facility] HOSP 06-08-2017 HOSP Patient Update (CORSMN) ----FAUSTO CORRIGAN ([id number]) 1960 [facility] Time Provider Department06/08/17 ESEQUIEL THOMAS During your visit today, we recorded the following information about you:Allergies As of Date: 06/08/2017 Noted Allergy ReactionSULFA (SULFONAMIDE ANTIBIOTICS) 06/07/2017 4 - Hives 10 - AnaphylaxisDate Reviewed: 06/07/2017Reviewed by: Nicolle (Wood Products Manufacturer) JOSR Moncada - Fully AssessedPrimary Visit Diagnosis: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]Order(s):SURGICAL REQUEST - ELECTIVE [[id number]] Order #: [id number]: 1 PER WHAT TO EXPECT DURING YOUR HOSPITAL STAY [[id number]] Order #: [id number]: 1 CBC [SQCBC] Order #: [id number] FUTURE COMP METABOLIC PANEL [SQCMP] Order #: [id number] FUTURE CONFIRM BLOOD TYPE [SQCONABO] Order #: [id number] FUTURE TYPE + SCREEN,30 DAY [VTEOPN41] Order #: [id number] FUTURE ECG COMPLETE W INTERPRETATION [ECG01] Order #: [id number] FUTURE REFER FOR ADMIT INTERVIEW [[id number]] Order #: [id number] HANDP FOR SURGERY [[id number]] Order #: [id number] CONSULT TO PATIENT EDUCATION [[id number]] Order #: [id number]: 1 CONSULT TO ANESTHESIOLOGY [9001] Order #: [id number]: 1 CONSULT TO INT MED-IMPACT [[id number]] Order #: [id number]: 1 CONSULT TO PULMONARY MEDICINE [[id number]] Order #: [id number]: 1 CONSULT TO ENDOCRINOLOGY [9006] Order #: [id number]: 1Prescriptions as of 06/08/2017 Sig: OXYCODONE-ACETAMINOPHEN 5 [...] FOR* More...Follow-up and Disposition History RecordedEncounter Number: [id number] Status:Closed by ESEQUIEL THOMAS MD, FACS on 06/09/17 [facility] CNOVon 06-07-2017 CNOV Office Visit (TOMAS) ----FAUSTO CORRIGAN ([id number]) 1960 [facility] Time Provider Department06/07/17 1:20 PM ESEQUIEL THOMAS During your visit today, we recorded the following information about you: Temperature Pulse Blood pressure Weight 97.8 degrees 79/minute 119/76 73.5 kg Height 1.537 Geovany Thomas MD FACS 06/07/2017 3:44 PM SignedNew Patient ConsultREASON FOR Rafia Corrigan is a 56 year old female who is scheduled for a consult at [facility] [place] for Consult [...] pain during BMs.She does have COPD from shelter smoking, but says she only has 3-4 [...] RepositionGeneral: MalaiseNeuro: No history of TIA's, stroke, SISAL PICKER tumor, impaired sensorium, hemiplegia,paraplegia or quadraplegia. No neurological symptoms or problems.Respiratory: COPDCardiovascular: Hx HTNGI: Positive for GERD, PUD, Heartburn, Abdominal pain, Diverticulitis, Historyof polypsGU: No history of UTI in past 6 weeks. No history of renal failure. Notcurrently on or requiring dialysis. No history of symptoms or problems.PATIENT COORDINATOR FRONT DESK: yellow/brown drainage from vagina x2 months : [...] FACSDATE: 06/07/17TIME: 2:32 PMReferring Provider: ZAID MICHAELS [[id number]]Allergies As of Date: 06/07/2017 Noted Allergy ReactionSULFA [...] ESEQUIEL THOMAS MD, FACS on 06/07/17 Normal [facility] HISTORY PHYSICALon HISTORY PHYSICAL HNO ID: [id number] thor: Esequiel Goodwin: (none)Author Type: PhysicianType: HANDPFiled: 06/07/2017 3:44 PMNote Text:New Patient ConsultREASON FOR Rafia Corrigan is a 56 year old female who is scheduled for a consult at [facility] [place] for Consult [...] pain during BMs.She does have COPD from shelter smoking, but says she only has 3-4cigarettes [...] RepositionGeneral: MalaiseNeuro: No history of TIA's, stroke, SISAL PICKER tumor, impaired sensorium,hemiplegia, paraplegia or quadraplegia. No neurological symptoms orproblems.Respiratory: COPDCardiovascular: Hx HTNGI: Positive for GERD, PUD, Heartburn, Abdominal pain, Diverticulitis,History of polypsGU: No history of UTI in past 6 weeks. No history of renal failure. Notcurrently on or requiring dialysis. No history of symptoms or problems.PATIENT COORDINATOR FRONT DESK: yellow/brown drainage from vagina x2 months : [...] Thomas MD FACSDATE: 06/07/17TIME: 2:32 PM Normal [facility] SR-CT ABD/PELVIS W CON IMPOR Ton 04-15-2017 SR-CT ABD/PELVIS W CON IMPORT Images were obtained outside of [facility] [id number] Normal [facility] Vital Signs Date Time Vital Sign Value Performing Clinician Facility 04-05-2025 09:45-0400 Body mass index (BMI) [Ratio] 25.84 kg/m2 Veronique Steven CASTING FINISHER Work Phone: [facility] 04-05-2025 09:45-0400 Body temperature 97.5 [degF] Veronique Steven CASTING FINISHER Work Phone: [facility] 04-05-2025 09:45-0400 Body weight 63.05 kg Veronique Mosherzana CASTING FINISHER Work Phone: [facility] 04-05-2025 09:45-0400 Diastolic blood pressure 84 mm[Hg] Veronique Zhangsharifa CASTING FINISHER Work Phone: [facility] 04-05-2025 09:45-0400 Heart rate 67 /min Veronique Vicentemaria teresaz CASTING FINISHER Work Phone: [facility] 04-05-2025 09:45-0400 Respiratory rate 18 /min Veronique Mosheramauryz CASTING FINISHER Work Phone: [facility] 04-05-2025 09:45-0400 SaO2% (BldA) [Mass fraction] 97 % Veronique Steven CASTING FINISHER Work Phone: [facility] 04-05-2025 09:45-0400 Systolic blood pressure 160 mm[Hg] Veronique Pamelaz CASTING FINISHER Work Phone: [facility] 01-08-2025 13:36-0400 Body height 156.2 cm Bao Noble DPEitan Work Phone: [facility] 01-08-2025 13:36-0400 Body mass index (BMI) [Ratio] 26.4 kg/m2 Bao Noble DPM Work Phone: [facility] 01-08-2025 13:36-0400 Body weight 64.41 kg Bao Noble DPM Work Phone: [facility] 01-04-2025 15:24-0400 Body height 156.2 cm Veroniqueswati Mosherholz CASTING FINISHER Work Phone: [facility] 01-04-2025 15:24-0400 Body mass index (BMI) [Ratio] 26.4 kg/m2 Veronique Vicentehholz CASTING FINISHER Work Phone: [facility] 01-04-2025 15:24-0400 Body temperature 98.49 [degF] Veronique Aichholz CASTING FINISHER Work Phone: [facility] 01-04-2025 15:24-0400 Body weight 64.41 kg Veronique Vicentehholz CASTING FINISHER Work Phone: [facility] 01-04-2025 15:24-0400 Diastolic blood pressure 80 mm[Hg] Veronique Vicentehholz CASTING FINISHER Work Phone: [facility] 01-04-2025 15:24-0400 Heart rate 69 /min Veronique Aichholz CASTING FINISHER Work Phone: [facility] 01-04-2025 15:24-0400 Respiratory rate 18 /min Veronique Vicentehholz CASTING FINISHER Work Phone: [facility] 01-04-2025 15:24-0400 SaO2% (BldA) [Mass fraction] 93 % Veronique Vicentehholz CASTING FINISHER Work Phone: [facility] 01-04-2025 15:24-0400 Systolic blood pressure 160 mm[Hg] Veronique Aichholz CASTING FINISHER Work Phone: [facility] 11-06-2024 16:20-0500 Body mass index (BMI) [Ratio] 25.8 kg/m2 Veronique Aichholz CASTING FINISHER Work Phone: [facility] 11-06-2024 16:20-0500 Body temperature 98.8 [degF] Veronique Moshreamauryz CASTING FINISHER Work Phone: [facility] 11-06-2024 16:20-0500 Body weight 62.96 kg Veroniqueswati Mosherholz CASTING FINISHER Work Phone: [facility] 11-06-2024 16:20-0500 Diastolic blood pressure 80 mm[Hg] Veronique Vicentehholz CASTING FINISHER Work Phone: [facility] 11-06-2024 16:20-0500 Heart rate 58 /min Veronique Vidhiholz CASTING FINISHER Work Phone: [facility] 11-06-2024 16:20-0500 Respiratory rate 18 /min Veronique Vidhiholz CASTING FINISHER Work Phone: [facility] 11-06-2024 16:20-0500 SaO2% (BldA) [Mass fraction] 94 % Veronique Vicentemaria teresaz CASTING FINISHER Work Phone: [facility] 11-06-2024 16:20-0500 Systolic blood pressure 128 mm[Hg] Veronique Vidhiholz CASTING FINISHER Work Phone: [facility] 09-18-2024 10:13-0500 Body height 156.2 cm Bao Noble DPM Work Phone: [facility] 09-18-2024 10:13-0500 Body mass index (BMI) [Ratio] 26.62 kg/m2 Bao Noble DPM Work Phone: [facility] 09-18-2024 10:13-0500 Body weight 64.95 kg Bao Noble DPM Work Phone: [facility] 08-16-2024 17:03-0500 Diastolic blood pressure 82 mm[Hg] Veronique Vicentehholz CASTING FINISHER Work Phone: [facility] 08-16-2024 17:03-0500 Systolic blood pressure 164 mm[Hg] Veronique Aichholz CASTING FINISHER Work Phone: [facility] 08-16-2024 16:55-0500 Body height 156.2 cm Veronique Harris CASTING FINISHER Work Phone: [facility] 08-16-2024 16:55-0500 Body mass index (BMI) [Ratio] 26.62 kg/m2 Veroniqueswati Santiagoz CASTING FINISHER Work Phone: [facility] 08-16-2024 16:55-0500 Body temperature 98.49 [degF] Veronique Pamelaz CASTING FINISHER Work Phone: [facility] 08-16-2024 16:55-0500 Body weight 64.95 kg Veroniqueswati Santiagoz CASTING FINISHER Work Phone: [facility] 08-16-2024 16:55-0500 Heart rate 64 /min Veroniqueswati Santiagoz CASTING FINISHER Work Phone: [facility] 08-16-2024 16:55-0500 Respiratory rate 20 /min Veronique Pamelaz CASTING FINISHER Work Phone: [facility] 08-16-2024 16:55-0500 SaO2% (BldA) [Mass fraction] 94 % Veroniqueswati Santiagoz CASTING FINISHER Work Phone: [facility] 07-27-2024 09:36-0400 Body height 156.2 cm Veronique Harris CASTING FINISHER Work Phone: [facility] 07-27-2024 09:36-0400 Body mass index (BMI) [Ratio] 25.54 kg/m2 Veroniqueswati Santiagoz CASTING FINISHER Work Phone: [facility] 07-27-2024 09:36-0400 Body temperature 98.8 [degF] Veronique Pamelaz CASTING FINISHER Work Phone: [facility] 07-27-2024 09:36-0400 Body weight 62.32 kg Veroniqueswati Santiagoz CASTING FINISHER Work Phone: [facility] 07-27-2024 09:36-0400 Diastolic blood pressure 86 mm[Hg] Veronique Vidhiholz CASTING FINISHER Work Phone: [facility] 07-27-2024 09:36-0400 Heart rate 70 /min Veronique Vicentehholz CASTING FINISHER Work Phone: [facility] 07-27-2024 09:36-0400 Respiratory rate 18 /min Veronique Aichholz CASTING FINISHER Work Phone: [facility] 07-27-2024 09:36-0400 SaO2% (BldA) [Mass fraction] 94 % Veronique Aichholz CASTING FINISHER Work Phone: [facility] 07-27-2024 09:36-0400 Systolic blood pressure 138 mm[Hg] Veronique Aichholz CASTING FINISHER Work Phone: [facility] 06-21-2024 10:57-0400 Body height 156.2 cm Veronique Aichholz CASTING FINISHER Work Phone: [facility] 06-21-2024 10:57-0400 Body mass index (BMI) [Ratio] 25.62 kg/m2 Veronique Aichholz CASTING FINISHER Work Phone: [facility] 06-21-2024 10:57-0400 Body temperature 97.81 [degF] Veronique Aichholz CASTING FINISHER Work Phone: [facility] 06-21-2024 10:57-0400 Body weight 62.51 kg Veronique Aichholz CASTING FINISHER Work Phone: [facility] 06-21-2024 10:57-0400 Diastolic blood pressure 82 mm[Hg] Veronique Aichholz CASTING FINISHER Work Phone: [facility] 06-21-2024 10:57-0400 Heart rate 64 /min Veronique Aichholz CASTING FINISHER Work Phone: [facility] 06-21-2024 10:57-0400 Respiratory rate 18 /min Veronique Aichholz CASTING FINISHER Work Phone: [facility] 06-21-2024 10:57-0400 SaO2% (BldA) [Mass fraction] 97 % Veronique Aichholz CASTING FINISHER Work Phone: [facility] 06-21-2024 10:57-0400 Systolic blood pressure 160 mm[Hg] Veronique Harris CASTING FINISHER Work Phone: [facility] 10-06-2022 13:45-0500 Body height 154.94 cm Veronique Mosherholz Work Phone: [facility] [address] DO Work Phone: 10-06-2022 13:45-0500 Body mass index (BMI) [Ratio] 29.29 kg/m2 Veronique Jeff Aichholz Work Phone: [facility] [address] DO Work Phone: 10-06-2022 13:45-0500 Body surface area Derived from formula 1.7 m2 Veronique Jeff Vicentehholz Work Phone: [facility] [address] DO Work Phone: 10-06-2022 13:45-0500 Body weight 70.31 kg Veronique Zhanghholz Work Phone: [facility] [address] DO Work Phone: 10-06-2022 13:45-0500 Diastolic blood pressure 80 mm[Hg] Veronique Zhanghholz Work Phone: [facility] [address] DO Work Phone: 10-06-2022 13:45-0500 Heart rate 72 /min Veronique Jeff Aichholz Work Phone: [facility] [address] DO Work Phone: 10-06-2022 13:45-0500 Systolic blood pressure 142 mm[Hg] Veronique Jeff Aichholz Work Phone: [facility] [address] DO Work Phone: 10-16-2021 11:41-0500 Body height 154.94 cm Dara Mills Work Phone: [facility] [address] DO Work Phone: 10-16-2021 11:41-0500 Body mass index (BMI) [Ratio] 30.04 kg/m2 Dara Mills Work Phone: [facility] [address] DO Work Phone: 10-16-2021 11:41-0500 Body surface area Derived from formula 1.71 m2 Dara Mills Work Phone: [facility] [employer] DO Work Phone: 10-16-2021 11:41-0500 Body weight 72.12 kg Dara Mills Work Phone: [facility] [employer] [employer] DO Work Phone: 10-16-2021 11:41-0500 Diastolic blood pressure 82 mm[Hg] Dara Mills Work Phone: [facility] [employer] DO Work Phone: 10-16-2021 11:41-0500 Heart rate 65 /min Dara Mills Work Phone: [facility] [address] DO Work Phone: 10-16-2021 11:41-0500 Systolic blood pressure 136 mm[Hg] Dara Mills Work Phone: [facility] [employer] [employer] DO Work Phone: 04-08-2021 11:18-0400 [facility] Work Phone: 04-08-2021 11:18-0400 Body mass index (BMI) [Ratio] 30.66 kg/m2 [facility] Work Phone: 04-08-2021 11:18-0400 Body weight 71.22 [facility] Work Phone: 04-08-2021 11:18-0400 Diastolic blood pressure 82 mm[Hg] [facility] Work Phone: 04-08-2021 11:18-0400 Heart rate 64 /min [facility] Work Phone: 04-08-2021 11:18-0400 Respiratory rate 18 /min [facility] Work Phone: 04-08-2021 11:18-0400 SaO2% (BldA) [Mass fraction] 97 % [facility] Work Phone: 04-08-2021 11:18-0400 Systolic blood pressure 144 mm[Hg] [facility] Work Phone: Encounters Encounter Date Encounter Type Care Provider Facility Start: 05-17-2025 ambulatory [facility] Facility:[facility] Start: 05-02-2025 End: 05-02-2025 Refill Veronique Harris CASTING FINISHER Work Phone: [facility] Comment on above: Gastroesophageal ref lux disease without esophagitis (Primary Dx); Nausea and vomiting, unspecified vomiting type Start: 04-30-2025 End: 05-01-2025 Refill Veronique Harris CASTING FINISHER Work Phone: [facility] Comment on above: Gastroesophageal ref lux disease without esophagitis (Primary Dx) Start: 04-11-2025 End: 04-12-2025 Telephone encounter Bao Noble DPM Work Phone: [facility] Comment on above: No Shows (Recent His tory of No Shows) Start: 04-05-2025 End: 04-05-2025 Bamboo flowsheet Veronique Harris CASTING FINISHER Work Phone: [facility] Start: 04-05-2025 End: 04-05-2025 Bamboo flowsheet Veronique Harris CASTING FINISHER Work Phone: [facility] Start: 04-05-2025 End: 04-05-2025 Clinisync Result Encounter Veroniqueswati Harris CASTING FINISHER Work Phone: [facility] External Department Unsolicited Start: 04-05-2025 End: 04-05-2025 Refill Veronique Aicdonteholz CASTING FINISHER Work Phone: [facility] Comment on above: Primary hypertension (Primary Dx); [...] Office outpatient visit 25 minutes Veroniqueswati Harris CASTING FINISHER Work Phone: [facility] Comment on above: Type 2 diabetes henrique itus with chronic kidney disease, without long-term current use of insulin, unspecified CKD stage (HCC) (Primary Dx); Primary hypertension ; Coronary artery disease involving kalispel coronary artery 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 ; Vaginal bleeding; Chronic kidney disease, stage 3a (CMS-HCC); Controlled type 2 diabetes mellitus without complication, without long-term current use of insulin (HCC); Medical non-compliance; Breast cancer screening by mammogram; Cigarette nicotine dependence with nicotine-induced disorder; Other specified hypothyroidism Start: 04-04-2025 End: 04-04-2025 Refill Veronique Aicdonteholz CASTING FINISHER Work Phone: [facility] Comment on above: Primary hypertension Start: 01-11-2025 End: 01-30-2025 Telephone encounter Rhiannon Abarca DO Work Phone: [facility] Start: 01-09-2025 End: 01-09-2025 Refill Veronique Aichholz CASTING FINISHER Work Phone: [facility] Comment on above: Chronic obstructive pulmonary disease, unspecified COPD type (CMS/HCC) (Primary Dx) Start: 01-08-2025 End: 01-08-2025 Office outpatient visit 15 minutes Bao Noble DPM Work Phone: [facility] Comment on above: Onychodystrophy (Nighat jorje Dx); Onychomycosis; Diabetic polyneuropathy associated with type 2 diabetes mellitus ([facility]/HCC) Start: 01-08-2025 End: 01-08-2025 ambulatory BAO NOBLE Not Available Start: 01-04-2025 End: 01-04-2025 ambulatory VERONIQUE AICHHOLNorma Not Available Start: 01-04-2025 End: 01-04-2025 Office outpatient visit 25 minutes Veronique Aicmaria teresaz CASTING FINISHER Work Phone: [facility] Comment on above: Colovaginal fistula (Primary Dx); Cigarette nicotine dependence with nicotine-induced disorder; Type 2 diabetes mellitus with diabetic polyneuropathy, without long-term current use of insulin ([facility]); Primary hypertension ([facility]); Chronic kidney disease, stage 3a ([facility]) ([facility]); Type 2 diabetes mellitus with chronic kidney disease, without long-term current use of insulin, unspecified CKD stage ([facility]); Gastroesophageal reflux disease without esophagitis; Mixed hyperlipidemia ([facility]); Chronic obstructive pulmonary disease, unspecified COPD type ([facility]); Controlled type 2 diabetes mellitus without complication, without long-term current use of insulin; Other specified hypothyroidism; Seasonal allergic rhinitis due to pollen Start: 01-04-2025 End: 01-04-2025 Bamboo flowsheet Veronique Aichholz CASTING FINISHER Work Phone: [facility] Start: 01-04-2025 End: 01-04-2025 Bamboo flowsheet Veronique Aichholz CASTING FINISHER Work Phone: [facility] Start: 01-01-2025 End: 01-01-2025 Refill Veronique Aichholz CASTING FINISHER Work Phone: [facility] Comment on above: Primary hypertension ([facility]/HCC) Start: 12-14-2024 End: 12-14-2024 Refill Veronique Aichholz CASTING FINISHER Work Phone: [facility] Comment on above: Controlled type 2 di abetes mellitus without complication, without long-term current use of insulin ([facility]/HCC) (Primary Dx) Start: 11-30-2024 End: 11-30-2024 ambulatory VERONIQUE AICHHOLZ Not Available Start: 11-30-2024 End: 11-30-2024 Bamboo flowsheet Veronique Aichholz CASTING FINISHER Work Phone: [facility] Start: 11-30-2024 End: 11-30-2024 Bamboo flowsheet Veronique Aichholz CASTING FINISHER Work Phone: [facility] Start: 11-10-2024 End: 11-12-2024 Refill Veronique Aichholz CASTING FINISHER Work Phone: [facility] Comment on above: Controlled type 2 di abetes mellitus without complication, without long-term current use of insulin ([facility]); Other specified hypothyroidism ([facility]); Gastroesophageal reflux disease without esophagitis; Chronic obstructive pulmonary disease, unspecified COPD type ([facility]) Start: 11-07-2024 End: 11-07-2024 Refill Veronique Aichholz CASTING FINISHER Work Phone: [facility] Comment on above: Generalized abdomina l pain (Primary Dx) Start: 11-06-2024 End: 11-06-2024 Office outpatient visit 15 minutes Veronique Aichholz CASTING FINISHER Work Phone: [facility] Comment on above: UTI symptoms (Primar y Dx); 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 Start: 11-06-2024 End: 11-06-2024 ambulatory VERONIQUE AICHHOLZ Not Available Start: 11-06-2024 End: 11-09-2024 External Result Encounter Veronique Aichholz CASTING FINISHER Work Phone: [facility] External Department Unsolicited Start: 11-06-2024 End: 11-09-2024 External Result Encounter Veronique Aichholz CASTING FINISHER Work Phone: [facility] External Department Unsolicited Start: 10-18-2024 End: 10-18-2024 Refill Veronique Aichholz CASTING FINISHER Work Phone: [facility] Comment on above: Dental infection (Pr imary Dx) Start: 10-09-2024 End: 10-09-2024 Refill Veronique Steven CASTING FINISHER Work Phone: [facility] Comment on above: Gastroesophageal ref lux disease without esophagitis Start: 10-05-2024 End: 10-05-2024 Refill Veronique Steven CASTING FINISHER Work Phone: [facility] Comment on above: Gastroesophageal ref lux disease without esophagitis Start: 09-18-2024 End: 09-18-2024 Bamboo flowsheet Bao Noble DPM Work Phone: [facility] Start: 09-18-2024 End: 09-18-2024 Bamboo flowsheet Bao Noble DPM Work Phone: [facility] Start: 09-18-2024 End: 09-18-2024 Office outpatient new 30 minutes Bao Noble DPM Work Phone: [facility] Comment on above: Onychodystrophy (Nighat jorje Dx); Ingrown toenail; Onychomycosis; Diabetic polyneuropathy associated with type 2 diabetes mellitus (CMS/HCC); Left foot pain Start: 09-18-2024 End: 09-18-2024 ambulatory BAO NOBLE Not Available Start: 09-07-2024 End: 09-07-2024 Refill Veronique Steven CASTING FINISHER Work Phone: [facility] Comment on above: Gastroesophageal ref lux disease without esophagitis Start: 08-16-2024 End: 08-16-2024 Office outpatient visit 25 minutes Veronique Harris CASTING FINISHER Work Phone: [facility] Comment on above: Acute bilateral low back pain without sciatica (Primary Dx); Cigarette nicotine dependence with nicotine-induced disorder; Primary hypertension (CMS/HCC); Abdominal aortic pulsation; Screening for lung cancer; 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 Start: 08-16-2024 End: 08-16-2024 ambulatory VERONIQUE AICSHARIFA Not Available Start: 08-16-2024 End: 08-16-2024 Bamboo flowsheet Veronique Steven CASTING FINISHER Work Phone: [facility] Start: 08-16-2024 End: 08-16-2024 Bamboo flowsheet Veronique Steven CASTING FINISHER Work Phone: [facility] Start: 07-31-2024 End: 07-31-2024 Orders Only Veronique Steven CASTING FINISHER Work Phone: [facility] Comment on above: Abdominal aortic pul sation (Primary Dx) Start: 07-27-2024 End: 07-27-2024 Bamboo flowsheet Veronique Steven CASTING FINISHER Work Phone: [facility] Start: 07-27-2024 End: 07-27-2024 Bamboo flowsheet Veronique Steven CASTING FINISHER Work Phone: [facility] Start: 07-27-2024 End: 07-27-2024 Office outpatient visit 25 minutes Veronique Steven CASTING FINISHER Work Phone: [facility] Comment on above: Controlled type 2 di abetes mellitus without complication, without long-term current use of insulin (CMS/HCC) (Primary Dx); Type 2 diabetes mellitus with diabetic chronic kidney disease (CMS/HCC); Chronic kidney disease, stage 2 (mild); Rcspu-2-dblmpyntkzc deficiency (CMS/HCC); Mixed hyperlipidemia (CMS/HCC); Chronic obstructive pulmonary disease, unspecified COPD type (CMS/HCC); Gastroesophageal reflux disease without esophagitis; Other specified hypothyroidism (CMS/HCC); Primary hypertension (CMS/HCC); Seasonal allergic rhinitis due to pollen; 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; Coronary artery disease involving kalispel coronary artery 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 (CMS/HCC); Abdominal aortic pulsation; Acute bilateral low back pain without sciatica Start: 07-27-2024 End: 07-27-2024 ambulatory VERONIQUE HARRIS Not Available Start: 07-20-2024 End: 07-20-2024 Emergency department patient visit VERONIQUE HARRIS [facility] Start: 07-05-2024 End: 07-06-2024 Refill Veronique Steven CASTING FINISHER Work Phone: [facility] Comment on above: Bacterial vaginosis Start: 06-22-2024 End: 06-22-2024 Refill Veronique Vicentehholz CASTING FINISHER Work Phone: [facility] Comment on above: Bacterial vaginosis (Primary Dx) Start: 06-21-2024 End: 06-21-2024 Bamboo flowsheet Veronique Steven CASTING FINISHER Work Phone: [facility] Start: 06-21-2024 End: 06-21-2024 Bamboo flowsheet Veronique Steven CASTING FINISHER Work Phone: [facility] Start: 06-21-2024 End: 06-21-2024 Office outpatient visit 25 minutes Veronique Harris CASTING FINISHER Work Phone: [facility] Comment on above: Controlled type 2 di abetes mellitus without complication, without long-term current use of insulin ([facility]) (Primary Dx); UTI symptoms; Acute cystitis without hematuria; Vaginal bleeding; Vaginal discharge; Mixed hyperlipidemia ([facility]); Chronic obstructive pulmonary disease, unspecified COPD type ([facility]); Gastroesophageal reflux disease without esophagitis; Other specified hypothyroidism ([facility]); Primary hypertension ([facility]); Seasonal allergic rhinitis due to pollen Start: 06-21-2024 End: 06-21-2024 ambulatory VERONIQUE STEVEN Not Available Start: 01-17-2024 ambulatory UNKNOWN PROVIDER Facili ty:[facility] Start: 01-19-2023 End: 01-19-2023 ambulatory REVENUE LIAISON VERONIQUE HARRSI Facility:[facility] Start: 10-06-2022 Office outpatient vi sit 25 minutes Veronique Harris Work Phone: [facility] [facility] DO Work Phone: Start: 10-06-[address] Rafael Washington Facility: Start: 09-23-2022 Rx Renewal Dara Mills Work Phone: [facility] 250 DO Work Phone: Start: 09-01-2022 End: 09-02-2022 ambulatory OLIVER ALVARADO . Facility:[facility] Start: 07-08-[address] Rafael Washington Facility: Start: 06-17-2022 End: 06-18-2022 ambulatory REVENUE LIAISON VERONIQUE HARRIS Facility:[facility] Start: 03-12-2022 End: 03-13-2022 ambulatory REVENUE LIAISON VERONIQUE AICHHOLNorma Facility:[facility] Start: 10-16-[address] Rafael Washington Facility: Start: 10-16-2021 Office outpatient vi sit 15 minutes Dara Mills Work Phone: [facility] 250 DO Work Phone: Start: 08-18-2021 End: 08-19-2021 [facility]ulatory [facility] Start: 07-31-2021 End: 08-01-2021 ambulatory [facility] Start: 07-31-2021 End: 07-31-2021 Subsequent hospital visit by physician [facility] 1 [facility] Card[facility] Re[facility] Comment on above: Arrived Start: 07-30-2021 End: 07-31-2021 ambulatory [facility] Start: 07-30-2021 End: 07-30-2021 Subsequent hospital visit by physician [facility] 1 [facility] Card[facility] Re[facility] Comment on above: Arrived Start: 07-21-2021 End: 07-22-2021 ambulatory [facility] Start: 07-21-2021 End: 07-21-2021 Subsequent hospital visit by physician [facility] 1 [facility] Cardiac Rehab Comment on above: Arrived Start: 07-17-2021 End: 07-18-2021 ambulatory [facility] Start: 07-17-2021 End: 07-17-2021 Subsequent hospital visit by physician [facility]m 1 [facility] Cardiac Rehab Comment on above: Arrived Start: 07-10-2021 End: 07-11-2021 ambulatory [facility] Start: 07-10-2021 End: 07-10-2021 Subsequent hospital visit by physician [facility] Comment on above: Arrived Start: 07-09-2021 End: 07-10-2021 ambulatory [facility] Start: 07-09-2021 End: 07-09-2021 Subsequent hospital visit by physician [facility] 1 [facility] Cardiac Rehab Comment on above: Arrived Start: 07-07-2021 End: 07-07-2021 Subsequent hospital visit by physician [facility] 1 [facility] Cardiac Rehab Comment on above: Arrived Start: 07-02-2021 End: 07-03-2021 ambulatory [facility] Start: 07-02-2021 End: 07-02-2021 Subsequent hospital visit by physician [facility] 2 [facility] Cardiac Rehab Comment on above: Arrived Start: 05-29-2021 End: 05-30-2021 ambulatory [facility] Start: 05-28-2021 End: 05-29-2021 ambulatory [facility] Start: 05-28-2021 End: 05-28-2021 Subsequent hospital visit by physician [facility] 2 [facility] Cardiac Rehab Comment on above: Arrived Start: 05-26-2021 End: 05-27-2021 ambulatory [facility] Start: 05-26-2021 End: 05-26-2021 Subsequent hospital visit by physician [facility] 2 [facility] Cardiac Re[facility] Comment on above: Arrived Start: 05-22-2021 End: 05-23-2021 ambulatory [facility] Start: 05-22-2021 End: 05-22-2021 Subsequent hospital visit by physician [facility] Comment on above: Arrived Start: 05-19-2021 End: 05-20-2021 ambulatory [facility] Start: 05-19-2021 End: 05-19-2021 Subsequent hospital visit by physician [facility] Comment on above: Arrived Start: 05-15-2021 End: 05-16-2021 ambulatory [facility] Start: 05-15-2021 End: 05-15-2021 Subsequent hospital visit by physician [facility] Comment on above: Arrived Start: 05-12-2021 End: 05-13-2021 ambulatory [facility] Start: 05-08-2021 End: 05-09-2021 ambulatory [facility] Start: 05-08-2021 End: 05-08-2021 Subsequent hospital visit by physician [facility] Comment on above: Arrived Start: 05-07-2021 End: 05-08-2021 ambulatory [facility] Start: 05-05-2021 End: 05-06-2021 ambulatory [facility] Start: 05-01-2021 End: 05-02-2021 ambulatory [facility] Start: 04-28-2021 End: 04-29-2021 ambulatory [facility] Start: 04-28-2021 End: 04-28-2021 Subsequent hospital visit by physician [facility] Comment on above: Arrived Start: 04-23-2021 End: 04-24-2021 ambulatory [facility] Start: 04-23-2021 End: 04-23-2021 Subsequent hospital visit by physician [facility] Comment on above: Arrived Start: 04-21-2021 End: 04-22-2021 ambulatory [facility] Start: 04-21-2021 End: 04-21-2021 Subsequent hospital visit by physician [facility] [...] End: 04-08-2021 Subsequent hospital visit by physician [facility] Cr Education Room [facility] Comment on above: Arrived Start: 05-19-2018 Patient encounter THOMAS DELGADILLO Facility:[facility] Start: 03-17-2018 End: 03-17-2018 Patient encounter THOMAS DELGADILLO Facility:[facility] Start: 02-03-2018 Patient encounter THOMAS DELGADILLO Facility:[facility] Start: 07-26-2017 End: 07-26-2017 Ambulatory ESEQUIEL THOMAS [facility] Start: 07-26-2017 End: 07-26-2017 Ambulatory IVAN HYDE [facility] Start: 07-26-2017 End: 07-27-2017 Ambulatory ESEQUIEL THOMAS [facility] Start: 07-26-2017 End: 07-26-2017 Ambulatory ESEQUIEL THOMAS [facility] Start: 06-07-2017 End: 06-07-2017 Ambulatory ESEQUIEL THOMAS [facility] Procedures Date Procedure Procedure Detail Performing Clinician Start: 04-05-2025 ALL CBC WITH AUTO DIFF Veronique Harris CASTING FINISHER Work Phone: Start: 04-05-2025 Hemoglobin glycosylated a1c Veronique Harris CASTING FINISHER Work Phone: Start: 11-06-2024 Urnls dip stick/tabl et rgnt non-auto w/o micrscp Veronique Harris CASTING FINISHER Work Phone: Start: 11-06-2024 URINARY TRACT INFECT ION (HTRX) Veronique Harris CASTING FINISHER Work Phone: Start: 07-27-2024 Hemoglobin glycosylated a1c Veronique Harris CASTING FINISHER Work Phone: Start: 03-20-2024 Colonoscopy Veronique rosarionorma CASTING FINISHER Work Phone: Start: 02-14-2024 Mammography Veronique rosarionorma CASTING FINISHER Work Phone: Appendectomy Dara Mills Work Phone: [...] Screening for malign ant neoplasm of colon [facility] Start: 04-05-2026 Urine screening for protein Diabetes: Urine Protein Screening [facility] Start: 10-06-2025 Hemoglobin A1c measurement Diabetes: Hemoglobin A1C [facility] Start: 07-20-2025 Adult BMI Screening Adult BMI Screen ing [facility] Start: 07-20-2025 Tobacco Screening Tobacco Screening [facility] Start: 07-11-2025 End: 07-11-2025 Patient encounter procedure 07/11/2025 9:40 AM EDT Office Visit [facility] [address] [place] [address] Veronique Harris NP [address] [place] [address] [facility] Start: 06-02-2025 Hemoglobin A1c measurement Diabetes: Hemoglobin A1C [facility] Start: 09-01-2025 Influenza vaccination Influenza Vacc ine [facility] Start: 04-11-2025 End: 04-11-2025 Patient encounter procedure 04/11/2025 10:15 AM EDT Office Visit [facility] [address] [place] [phone] Bao Noble, DPEitan [address] [place] [address] [facility] Start: 04-05-2025 End: 04-05-2026 Basic metabolic 1998 panel - Serum or Plasma Basic metabolic panel Lab Routine Hypokalemia Expected: 04/05/2025 (Approximate), Expires: 04/05/2026 [facility] Work Phone: Comment on above: Expected: 04/05/2025 (Approximate), Expires: 04/05/2026 Start: 04-05-2025 End: 04-05-2026 CT Abdomen and Pelvis W contrast IV CT abdomen pelvis w IV contrast Imaging Routine Microscopic hematuria Colovaginal fistula Elevated alkaline phosphatase level Expected: 04/05/2025 (Approximate), Expires: 04/05/2026 [facility] Work Phone: Comment on above: Expected: 04/05/2025 (Approximate), Expires: 04/05/2026 Start: 04-05-2025 End: 04-05-2025 Patient encounter procedure 04/05/2025 9:40 AM EDT Office Visit [facility] [address] [place] [address] Veronique Harris NP [address] [place] [address] [facility] Start: 02-14-2025 End: 02-14-2025 Patient encounter procedure 02/14/2025 2:30 PM EDT [facility] [address] [place] [phone] [place] [address] [place] [address] [facility]necol[facility] Start: 02-13-2025 Screening for malign ant neoplasm of breast Mammogram [facility] Start: 01-24-2025 Hemoglobin A1c measurement Diabetes: Hemoglobin A1C [facility] Start: 01-08-2025 End: 01-08-2025 Patient encounter procedure 01/08/2025 1:30 PM EDT Procedure Visit [facility] [address] [place] [phone] Bao Noble DPM [address] [place], [place] [phone] [facility] Start: 01-04-2025 End: 01-04-2025 Patient encounter procedure 01/04/2025 3:00 PM EDT Office Visit [facility] [address] [place] [address] Veronique Harris, CASTING FINISHER [address] [place] [phone] [facility] Start: 01-01-2025 End: 01-01-2025 Patient encounter procedure 01/01/2025 9:00 AM EDT Office Visit [facility] [address] [place] [address] Veronique Harris, ANNA [address] [place] [address] [facility] Start: 12-27-2024 End: 12-27-2024 Patient encounter procedure 12/27/2024 9:15 AM EDT Procedure Visit [facility] [address] [place] [phone] Bao Noble DPM [address] [place], [place] [phone] [facility] Start: 11-30-2024 End: 11-30-2024 Patient encounter procedure 11/30/2024 2:40 PM EST Office Visit [facility] [address] [place] [address] Veronique Harris, CASTING FINISHER [address] [place] [phone] [facility] Start: 11-24-2024 Urine screening for protein Diabetes: Urine Protein Screening [facility] Start: 11-15-2024 End: 11-15-2024 Patient encounter procedure 11/15/2024 6:00 PM EST Office Visit [facility] [address] [place] [phone] Veronique Harris, CASTING FINISHER [address] [place] [phone] [facility] Start: 11-06-2024 End: 11-06-2025 URINARY TRACT INFECTION (HTRX) URINARY TRACT INFECTION (HTRX) Lab Routine UTI symptoms Expected: 11/06/2024 (Approximate), Expires: 11/06/2025 [facility] Work Phone: Comment on above: Expected: 11/06/2024 (Approximate), Expires: 11/06/2025 Start: 09-18-2024 End: 09-18-2024 Patient encounter procedure 09/18/2024 10:15 AM EST Office Visit [facility] [address] [place] [phone] Bao Noble DPM [address] [place] [phone] Arrived [facility] Comment on above: Arrived Start: 08-16-2024 End: 08-16-2024 Patient encounter procedure 08/16/2024 5:00 PM EST [facility] [address] [place] [address] Veronique Harris, ANNA [address] [place] [phone] Cigarette nicotine dependence with nicotine-induced disorder (Primary Dx); Primary hypertension (CMS/HCC); Abdominal aortic pulsation; Acute bilateral low back pain without sciatica [facility] Comment on above: Cigarette nicotine d ependence with nicotine-induced disorder (Primary Dx); Primary hypertension (CMS/HCC); Abdominal aortic pulsation; Acute bilateral low back pain without sciatica Start: 08-15-2024 End: 08-15-2024 Patient encounter procedure 08/15/2024 9:40 AM EST Office Visit [facility] [address] [place] [address] Veronique Harris NP [address] [place] [address] [facility] Start: 07-31-2024 End: 07-31-2025 US Abdominal Aorta for screening Vascular US abdominal aorta anuerysm AAA screening Imaging Routine Abdominal aortic pulsation Expected: 07/31/2024 (Approximate), Expires: 07/31/2025 [facility] Work Phone: Comment on above: Expected: 07/31/2024 (Approximate), Expires: 07/31/2025 Start: 07-27-2024 End: 07-27-2025 US.doppler Pelvis vessels limited Vascular US abdomen/pelvis duplex limited Imaging Routine Abdominal aortic pulsation Expected: 07/27/2024, Expires: 07/27/2025 [facility] Work Phone: Comment on above: Expected: 07/27/2024 , Expires: 07/27/2025 Start: 07-27-2024 End: 07-27-2024 Patient encounter procedure 07/27/2024 9:40 AM EDT [facility] [address] [place] [address] Veronique Harris, ANNA [address] [place] [phone] Controlled type 2 diabetes mellitus without complication, without long-term current use of insulin (CMS/HCC) (Primary Dx); Type 2 diabetes mellitus with diabetic chronic kidney disease (CMS/HCC); Chronic kidney disease, stage 2 (mild); Urvjq-7-fbfuhmsumdq deficiency (CMS/HCC); Mixed hyperlipidemia (CMS/HCC); Chronic obstructive pulmonary disease, unspecified COPD type (CMS/HCC); Gastroesophageal reflux disease without esophagitis; Other specified hypothyroidism (CMS/HCC); Primary hypertension (CMS/HCC); Seasonal allergic rhinitis due to pollen; 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 [facility] Comment on above: Controlled type 2 di abetes mellitus without complication, without long-term current use of insulin (CMS/HCC) (Primary Dx); Type 2 diabetes mellitus with diabetic chronic kidney disease (CMS/HCC); Chronic kidney disease, stage 2 (mild); Ocpjy-7-nyncmezlmzv deficiency (CMS/HCC); Mixed hyperlipidemia (CMS/HCC); Chronic obstructive pulmonary disease, unspecified COPD type (CMS/HCC); Gastroesophageal reflux disease without esophagitis; Other specified hypothyroidism (CMS/HCC); Primary hypertension (CMS/HCC); Seasonal allergic rhinitis due to pollen; 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 Start: 07-17-2024 End: 07-17-2024 Patient encounter procedure 07/17/2024 9:40 AM EDT Office Visit [facility] [address] [place] [address] Veronique Harris, ANNA [address] [place] [phone] [facility] Start: 06-21-2024 End: 06-21-2025 Bacteria identified in Urine by Culture Urine culture (clean catch) Microbiology Routine UTI symptoms Expected: 06/21/2024 (Approximate), Expires: 06/21/2025 [facility] Comment on above: Expected: 06/21/2024 (Approximate), Expires: 06/21/2025 Start: 06-21-2024 End: 06-21-2025 Urinalysis complete panel - Urine Urinalysis with reflex microscopic (clean catch) Lab Routine UTI symptoms Expected: 06/21/2024 (Approximate), Expires: 06/21/2025 [facility] Work Phone: Comment on above: Expected: 06/21/2024 (Approximate), Expires: 06/21/2025 Start: 06-21-2024 End: 06-21-2025 VAGINITIS (HTRX) VAGINITIS (HTRX) Lab Routine Vaginal bleeding Vaginal discharge Expected: 06/21/2024 (Approximate), Expires: 06/21/2025 [facility] Comment on above: Expected: 06/21/2024 (Approximate), Expires: 06/21/2025 Start: 06-21-2024 End: 06-21-2024 Patient encounter procedure 06/21/2024 11:00 AM EDT Office Visit [facility] [address] [place] [address] Veronique Harris NP [address] [place] [address] Arrived [facility] Comment on above: Arrived Start: 05-24-2024 Hemoglobin A1c measurement Diabetes: Hemoglobin A1C [facility] Start: 03-20-2024 Screening for malign ant neoplasm of colon [facility] Start: 10-06-2023 FUV, Provider: Rafael Washington, Status: Pen, Time: 10:30 AM FUV, Provider: Rafael Washington, Status: Julio, Time: 10:30 AM [facility] [address] DO Work Phone: Start: 10-06-2022 FUV, Provider: Rafael Washington, Status: Pen, Time: 1:20 PM FUV, Provider: Rafael Washington, Status: Pen, Time: 1:20 PM [facility] 250 DO Work Phone: Start: 04-14-2022 FUV, Provider: Rafael Washington, Status: Julio, Time: 11:20 AM FUV, Provider: Rafael Washington, Status: Julio, Time: 11:20 AM -[facility] Graham DO Work Phone: Start: 08-18-2021 End: 08-18-2021 Patient encounter procedure 08/18/2021 Appointment Cardiac Rehabilitation [facility] Start: 08-18-2021 End: 08-18-2021 Patient encounter procedure 08/18/2021 Appointment Cardiac Rehabilitation [facility] Start: 08-14-2021 End: 08-14-2021 Patient encounter procedure 08/14/2021 Appointment Cardiac Rehabilitation [facility] Start: 08-14-2021 End: 08-14-2021 Patient encounter procedure 08/14/2021 Appointment [facility] Start: 08-13-2021 End: 08-13-2021 Patient encounter procedure 08/13/2021 Appointment Cardiac [facility] Start: 08-13-2021 End: 08-13-2021 Patient encounter procedure 08/13/2021 Appointment Cardiac [facility] Start: 08-11-2021 End: 08-11-2021 Patient encounter procedure 08/11/2021 Appointment Cardiac Rehabilitation [facility] Start: 08-11-2021 End: 08-11-2021 Patient encounter procedure 08/11/2021 Appointment Cardiac Rehabilitation [facility] Start: 08-07-2021 End: 08-07-2021 Patient encounter procedure 08/07/2021 Appointment [facility] Card[facility] Start: 08-07-2021 End: 08-07-2021 Patient encounter procedure 08/07/2021 Appointment [facility] Card[facility] Re[facility] Start: 08-06-2021 End: 08-06-2021 Patient encounter procedure 08/06/2021 Appointment [facility] Card[facility] Start: 08-06-2021 End: 08-06-2021 Patient encounter procedure 08/06/2021 Appointment [facility] Card[facility] Start: 08-04-2021 End: 08-04-2021 Patient encounter procedure 08/04/2021 Appointment [facility] Card[facility] Start: 08-04-2021 End: 08-04-2021 Patient encounter procedure 08/04/2021 Appointment Cardiac Rehabilitation [facility] Cardiac Rehab Start: 07-31-2021 End: 07-31-2021 Patient encounter procedure 07/31/2021 Appointment Cardiac Rehabilitation [facility] Cardiac Rehab Start: 07-31-2021 End: 07-31-2021 Patient encounter procedure 07/31/2021 Appointment [facility]iac Rehabilitation [facility] Cardiac Rehab Start: 07-30-2021 End: 07-30-2021 Patient encounter procedure 07/30/2021 Appointment [facility]iac Rehabilitation [facility] Cardiac Rehab Start: 07-30-2021 End: 07-30-2021 Patient encounter procedure 07/30/2021 Appointment [facility]iac Rehabilitation [facility] Cardiac Rehab Start: 07-28-2021 End: 07-28-2021 Patient encounter procedure 07/28/2021 Appointment [facility] Rehabilitation [facility] Cardiac Rehab Start: 07-28-2021 End: 07-28-2021 Patient encounter procedure 07/28/2021 Appointment [facility] Cardiac Rehab Start: 2021 End: 2021 Patient encounter procedure 2021 Appointment [facility] Cardiac Rehab Start: 2021 End: 2021 Patient encounter procedure 2021 Appointment [facility] Cardiac Rehab Start: 07-23-2021 End: 07-23-2021 Patient encounter procedure 07/23/2021 Appointment [facility] Cardiac Rehab Start: 07-23-2021 End: 07-23-2021 Patient encounter procedure 07/23/2021 Appointment [facility] Rehabilitation [facility] Cardiac Rehab Start: 07-21-2021 End: 07-21-2021 Patient encounter procedure 07/21/2021 Appointment [facility] Cardiac Rehab Start: 07-17-2021 End: 07-17-2021 Patient encounter procedure 07/17/2021 Appointment [facility] Cardiac Rehab Start: 07-16-2021 End: 07-16-2021 Patient encounter procedure 07/16/2021 Appointment [facility] Cardiac Rehab Start: 07-14-2021 End: 07-14-2021 Patient encounter procedure 07/14/2021 Appointment [facility] Cardiac Rehab Start: 07-10-2021 End: 07-10-2021 Patient encounter procedure 07/10/2021 Appointment [facility] Cardiac Rehab Start: 07-09-2021 End: 07-09-2021 Patient encounter procedure 07/09/2021 Appointment [facility] Cardiac Rehab Start: 07-07-2021 End: 07-07-2021 Patient encounter procedure 07/07/2021 Appointment [facility] Cardiac Rehab Start: 07-03-2021 End: 07-03-2021 Patient encounter procedure 07/03/2021 Appointment [facility] Cardiac Rehab Start: 07-02-2021 End: 07-02-2021 Patient encounter procedure 07/02/2021 Appointment [facility] Cardiac Rehab Start: 06-30-2021 End: 06-30-2021 Patient encounter procedure 06/30/2021 Appointment [facility] Cardiac Rehab Start: 06-26-2021 End: 06-26-2021 Patient encounter procedure 06/26/2021 Appointment [facility] Cardiac Rehab Start: 06-25-2021 End: 06-25-2021 Patient encounter procedure 06/25/2021 Appointment [facility] Card[facility] Re[facility] Start: 06-23-2021 End: 06-23-2021 Patient encounter procedure 06/23/2021 Appointment [facility] Card[facility] Re[facility] Start: 06-19-2021 End: 06-19-2021 Patient encounter procedure 06/19/2021 Appointment [facility] Card[facility] Re[facility] Start: 06-18-2021 End: 06-18-2021 Patient encounter procedure 06/18/2021 Appointment [facility] Cardiac Rehab Start: 06-16-2021 End: 06-16-2021 Patient encounter procedure 06/16/2021 Appointment [facility] Card[facility] Rehab Start: 06-12-2021 End: 06-12-2021 Patient encounter procedure 06/12/2021 Appointment [facility] Card[facility] Rehab Start: 06-11-2021 End: 06-11-2021 Patient encounter procedure 06/11/2021 Appointment [facility] Card[facility] Re[facility] Start: 06-09-2021 End: 06-09-2021 Patient encounter procedure 06/09/2021 Appointment [facility] Card[facility] Rehab Start: 06-05-2021 End: 06-05-2021 Patient encounter procedure 06/05/2021 Appointment [facility] Card[facility] Re[facility] Start: 06-04-2021 End: 06-04-2021 Patient encounter procedure 06/04/2021 Appointment [facility] Card[facility] Re[facility] Start: 06-02-2021 End: 06-02-2021 Patient encounter procedure 06/02/2021 Appointment [facility] Card[facility] Re[facility] Start: 05-29-2021 End: 05-29-2021 Patient encounter procedure 05/29/2021 Appointment [facility] Card[facility] Rehab Start: 05-28-2021 Influenza vaccination Flu vaccine (# 1) [employer] Phone: Start: 05-28-2021 End: 05-28-2021 Patient encounter procedure 05/28/2021 Appointment [facility] Card[facility] Rehab Start: 05-26-2021 End: 05-26-2021 Patient encounter procedure 05/26/2021 Appointment [facility] Card[facility] Re[facility] Start: 05-22-2021 End: 05-22-2021 Patient encounter procedure 05/22/2021 Appointment [facility] Card[facility] Rehab Start: 05-21-2021 End: 05-21-2021 Patient encounter procedure 05/21/2021 Appointment [facility] Card[facility] Rehab Start: 05-19-2021 End: 05-19-2021 Patient encounter procedure 05/19/2021 Appointment [facility] Card[facility] Re[facility] Start: 05-15-2021 End: 05-15-2021 Patient encounter procedure 05/15/2021 Appointment [facility] Card[facility] Rehab Start: 05-14-2021 End: 05-14-2021 Patient encounter procedure 05/14/2021 Appointment [facility] Cardiac Rehab Start: 05-12-2021 End: 05-12-2021 Patient encounter procedure 05/12/2021 Appointment [facility] Card[facility] Re[facility] Start: 05-08-2021 End: 05-08-2021 Patient encounter procedure 05/08/2021 Appointment [facility] Card[facility] Rehab Start: 05-07-2021 End: 05-07-2021 Patient encounter procedure 05/07/2021 Appointment [facility] Cardiac Rehab Start: 05-05-2021 End: 05-05-2021 Patient encounter procedure 05/05/2021 Appointment [facility] Cardiac Rehab Start: 05-01-2021 End: 05-01-2021 Patient encounter procedure 05/01/2021 Appointment [facility] Rehabilitation [facility] Cardiac Rehab Start: 04-30-2021 End: 04-30-2021 Patient encounter procedure 04/30/2021 Appointment [facility] Cardiac Rehab Start: 04-28-2021 End: 04-28-2021 Patient encounter procedure 04/28/2021 Appointment [facility] Card[facility] Rehab Start: 04-24-2021 End: 04-24-2021 Patient encounter procedure 04/24/2021 Appointment [facility] Card[facility] Rehab Start: 04-23-2021 End: 04-23-2021 Patient encounter procedure 04/23/2021 Appointment [facility] Card[facility] Rehab Start: 04-21-2021 End: 04-21-2021 Patient encounter procedure 04/21/2021 Appointment [facility] Card[facility] Rehab Start: 04-17-2021 End: 04-17-2021 Patient encounter procedure 04/17/2021 Appointment [facility] Card[facility] Rehab Start: 04-16-2021 End: 04-16-2021 Patient encounter procedure 04/16/2021 Appointment [facility] Card[facility] Rehab Start: 04-14-2021 End: 04-14-2021 Patient encounter procedure 04/14/2021 Appointment Cardiac Rehabilitation [facility] Cardiac Rehab Start: 04-10-2021 End: 04-10-2021 Patient encounter procedure 04/10/2021 Appointment [facility] Rehabilitation [facility] Cardiac Rehab Start: 2012 Administration of varicella zoster vaccine Zoster (Shingles) Vaccine (1 of 2) [employer] Start: 2012 Screening for malign ant neoplasm of breast Breast cancer screen [employer] Phone: Start: 2012 Shingles Vaccine (1 of 2) Shingles Vaccine (1 of 2) [employer] Phone: Start: 2007 Screening for malign ant neoplasm of colon Colon cancer screen colonoscopy [employer] Phone: Start: 2002 Diabetes screen Diabetes screen [employer] Phone: Start: 1992 Screening for malign ant neoplasm of cervix [facility] [employer] Phone: Start: 1983 Screening for malign ant neoplasm of cervix [facility] Start: 1981 DTaP,Tdap and Td Vaccines (1 - Tdap) DTaP,Tdap and Td Vaccines (1 - Tdap) [facility] Start: 1981 DTaP/Tdap/Td vaccine (1 - Tdap) DTaP/Tdap/Td vaccine (1 - Tdap) [facility] [employer] Phone: Start: 1977 HIV screening HIV screen [facility] Work Phone: Start: 1974 COVID-19 Vaccine (1) COVID-19 Vaccin e (1) [facility] [employer] Phone: Start: 1974 Depression Screening Depression Scre [facility] Start: 1972 Glaucoma screening Diabetes: R etinopathy Screening [facility] Start: 1972 Lipid panel Lipid screen [facility] Work Phone: Start: 1968 Pneumococcal 0-64 ye ars Vaccine (1 of 2 - PPSV23) Pneumococcal 0-64 years Vaccine (1 of 2 - PPSV23) [facility] [employer] Phone: Start: 1962 Creatinine measurement Creatinine mo nitoring [facility] [employer] Phone: Start: 1962 Hepatitis C screening Hepatitis C sc reen [facility] [employer] Phone: Start: 1962 Potassium monitoring Potassium monit oring [facility] [employer] Phone: Start: 1962 Screening for malign ant neoplasm of colon [facility] Start: 1962 Tobacco Counseling Tobacco Counselin g [facility] CARDIAC PHASE II [facility] Work Phone: Comment on above: Ordered: 05/26/2021 Ordered: 05/28/2021 Ordered: 07/02/2021 Payers Date Payer Category Payer Unknown [id number] 2023 Medicaid [facility] MEDICAID [id number] 2022 Medicaid [employer] [place] [id number] 2022-Present [address] [place], [place] [id number] [id number] 2022 Private Health Insurance [facility] MEDICAID [id number] 1962 Unknown [id number] 2.16.840.1.901524.3.579. 2.173 1962 Unknown [id number] 2.16.840.1.505425.3.579. 2.173 1962 Unknown [id number] 2.16.840.1.066045.3.579. 2.173 1962 Unknown [id number] 2.16.840.1.899615.3.579. 2.173 1962 Unknown [id number] 2.16.840.1.936977.3.579. 2.173 1962 Unknown [id number] 2.16.840.1.596616.3.579. 2.173 1962 Unknown [id number] 2.16.840.1.436892.3.579. 2.173 1962 Unknown [id number] 2.16.840.1.301698.3.579. 2.173 1962 Unknown [id number] 2.16.840.1.769302.3.579. 2.173 1962 Unknown [id number] 2.16.840.1.093705.3.579. 2.173 1962 Unknown [id number] 2.16.840.1.950181.3.579. 2.173 1962 Unknown [id number] 2.16.840.1.675906.3.579. 2.173 1962 Unknown [id number] 2.16.840.1.323928.3.579. 2.173 1962 Unknown [id number] 2.16.840.1.171583.3.579. 2.173 1962 Unknown [id number] 2.16.840.1.349024.3.579. 2.173 1962 Unknown [id number] 2.16.840.1.724590.3.579. 2.173 1962 Unknown [id number] 2.16.840.1.276353.3.579. 2.173 1962 Unknown [id number] 2.16.840.1.841324.3.579. 2.173 1962 Unknown [id number] 2.16.840.1.367765.3.579. 2.173 1962 Unknown [id number] 2.16.840.1.390884.3.579. 2.173 1962 Unknown [id number] 2.16.840.1.689259.3.579. 2.173 1962 Unknown [id number] 2.16.840.1.949193.3.579. 2.173 1962 Unknown [id number] 2.16.840.1.633288.3.579. 2.173 1962 Unknown [id number] 2.16.840.1.799647.3.579. 2.173 1962 Unknown [id number] 2.16.840.1.852360.3.579. 2.173 1962 Unknown [id number] 2.16.840.1.311982.3.579. 2.356 1962 Unknown [id number] 2.16.840.1.024283.3.579. 2.356 1962 Unknown [id number] 2.16.840.1.916358.3.579. 2.356 1962 Unknown [id number] 2.16.840.1.393468.3.579. 2.593 1962 Unknown [id number] 2.16.840.1.606016.3.579. 2.593 1962 Unknown [id number] 2.16.840.1.176077.3.579. 2.593 1962 Unknown [id number] 2.16.840.1.447567.3.579. 2.593 1962 Unknown [id number] 2.16.840.1.688214.3.579. 2.732 1962 Unknown [id number] 2.16.840.1.813429.3.579. 2.1286 1962 Unknown [id number] 2.16.840.1.351922.3.579. 2.1259 1962 Unknown [id number] 2.16.840.1.852592.3.579. 2.1259 1962 Unknown [id number] 2.16.840.1.218566.3.579. 2.1259 1962 Unknown [id number] 2.16.840.1.834022.3.579. 2.9 1962 Unknown [id number] 2.16.840.1.383215.3.579. 2.1259 1962 Unknown [id number] 2.16.840.1.142878.3.579. 2.1259 1962 Unknown [id number] 2.16.840.1.209799.3.579. 2.1259 1962 Unknown [id number] 2.16.840.1.122822.3.579. 2.1259 1962 Unknown [id number] 2.16.840.1.816401.3.579. 2.1259 1962 Unknown [id number] 2.16.840.1.064877.3.579. 2.727 1959 Medicaid [id number] 1959 Unknown [id number] Unknown Social History Date Type Detail Facility Start: 04-08-2021 End: 12-06-2024 Tobacco smoking status DCIS Current every day smoker [facility] Phone: History of tobacco use Cigarette Smoker [employer] Start: 04-08-2021 End: 04-05-2025 Cigarettes smoked current (pack per day) - Reported [employer] Phone: Comment on above: POP DAILY; 6 CIGS A DAY; Start: 04-08-2021 End: 07-20-2024 Tobacco use and exposure Never used [email or web address] Start: 04-08-2021 End: 04-05-2025 Alcohol intake Ex-drinker (finding) [facility] Phone: Start: 04-08-2021 Tobacco Comment 2 cigs a day [email or web address] Work Phone: Start: 1960 Sex Assigned At Not on file [facility] [employer] Work Phone: Start: 06-21-2024 End: 04-05-2025 Tobacco use panel [facility] Start: 09-08-2023 Alcohol Comment caffeine 2-3 c ups per day [facility] Start: 07-20-2024 Alcoholic beverage intake Lifetime non-drinker (finding) [facility] Childcare Unknown [facility] Start: 05-02-2015 Sex Female (finding) [facility] Clinical Notes 04-08-2021 to 04-12-2025 Telephone Encounter [...] not be able to reschedule another appt. [facility] 04-12-2025 Miscellaneous Notes Thank you for letting me know Jaden. Next no show no call we will not be able to reschedule another appt. Patient no showed her appointment with Dr. Bao Noble today. This is her second no show with our office (12/27/2024 & 04/11/2025). documented in this encounter [facility] 04-11-2025 Telephone encounter Note Patient no showed her appointment with Dr. Bao Noble today. This is her second no show with our office (12/27/2024 & 04/11/2025). [facility] 04-05-2025 History of Present illness Narrative [...] being taken. She does not see a houseman.Eye exam is not current. Hypertension This is [...] no compliance problems. Hypertensive end-organ damage includes CAD/CT. There is no history of heart failure. [...] Past Medical History: Diagnosis Date Abnormal CXR Koaub-5-wknlcrvxrwdgnbwp deficiency 12/09/2023 Atypical mole Chronic obstructive pulmonary disease (HCC) Cigarette nicotine dependence with nicotine-induced disorder 12/09/2023 Coronary artery disease Dental infection 12/09/2023 Diabetes type 2, controlled ([facility]) 09/30/2023 Diverticulitis 11/16/2023 Diverticulosis diverticulosis/diverticulitis Elevated alkaline phosphatase level 11/24/2023 Gastroesophageal reflux disease without esophagitis 09/16/2023 Generalized abdominal pain 08/31/2023 HTN (hypertension) Hypothyroidism Other specified hypothyroidism 09/16/2023 Pain, dental Perforated diverticulum 2017 perforated diverticuli Postmenopausal postcoital bleeding 12/09/2023 Seasonal allergic rhinitis due to pollen 12/09/2023 Stage 3a chronic kidney disease (CKD) ([facility]) 12/09/2023 STEMI (ST elevation myocardial infarction) ([facility]) Stress at home 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 11/16/2023 Past [...] and noah RESOLVED: Diabetes type 2, controlled ([facility]) Relevant Orders POCT glycosylated hemoglobin (Hb A1C) docked device Breast cancer screening by mammogram Cigarette nicotine dependence with nicotine-induced disorder The patient has been advised of the risks of continued smoking: stroke, CT, all forms of cancer, lung disease, and . Options for quitting smoking include: cold turkey, hypnosis, acupuncture, nicotine replacement meds (gum, lozenges, and patches), Buproprion, and Varenicline. At this time pt is encouraged to evaluate their goals for wanting to quit smoking, and reach out to provider when ready to start this process Chronic kidney disease, stage 3a ([facility]) Check labs yearly and prn Control BP and DM On jardiance Vaginal bleeding Insurance denied CT Pt was referred to [employer] Sales Representative, according to chart note entry pt was [...] completed from 12/19, did not go to PATIENT COORDINATOR FRONT DESK appt either Associated Problem(s): Cigarette nicotine dependence with nicotine-induced disorder The patient has been advised of the risks of continued smoking: stroke, CT, all forms of cancer, lung disease, and [...] completed from 12/19, did not go to PATIENT COORDINATOR FRONT DESK appt either I have explained that labs are needed to safely prescribe meds no meds until labs Explained reason for PATIENT COORDINATOR FRONT DESK, # given Will resend low dose CT chest and mammogram to [facility] Associated Problem(s): Type 2 diabetes mellitus with [...] Associated Problem(s): Chronic kidney disease, stage 3a ([facility]) Check labs yearly and prn Control BP and DM On jardiance Associated Problem(s): Vaginal bleeding Insurance denied CT Pt was referred to [employer] Sales Representative, according to chart note entry pt was scheduled with dr abarca on 02/14/25 Phone number given for her to reach out to call At this point I have explained to the patient that unexplained vag bleeding may be related to a cancer diagnosis and that is why we want her to see PATIENT COORDINATOR FRONT DESK She is urged to make an appt, [...] A1c is 6.7% Veronique Montez: [facility]: [phone], please call them for an appt, let them know they had a referral from our office I would like you to get mammogram and low dose CT chest completed to , I will fax order to [facility], you can call them to schedule: [phone]- ext [phone] documented in this encounter [facility] 01-11-2025 Miscellaneous Notes Referral received from Veronique Harris CNP to see Pt for post-menopausal bleeding. LVM for Pt to call Office for appointment. Referral scanned into Human Resource Assistant. Pt scheduled with Dr. Abarca on 02/14/25. documented in this encounter [facility] 01-11-2025 Telephone encounter Note Referral received from Veornique Harris CNP to see Pt for post-menopausal bleeding. LVM for Pt to call Office for appointment. Referral scanned into Human Resource Assistant. [facility] 01-11-2025 Telephone encounter Note Pt scheduled with Dr. Abarca on 02/14/25. [facility] 01-08-2025 History of Present illness Narrative Images [...] Past Medical History: Diagnosis Date Abnormal CXR Yosrw-0-rubpjvjrcsdncatf deficiency 12/09/2023 Atypical mole Chronic obstructive pulmonary disease ([facility]) Cigarette nicotine dependence with nicotine-induced disorder 12/09/2023 Coronary artery disease ([facility]) Dental infection 12/09/2023 Diabetes type 2, controlled ([facility]) 09/30/2023 Diverticulitis 11/16/2023 Diverticulosis diverticulosis/diverticulitis Elevated alkaline phosphatase level 11/24/2023 Gastroesophageal reflux disease without esophagitis 09/16/2023 Generalized abdominal pain 08/31/2023 HTN (hypertension) ([facility]) Hypothyroidism ([facility]) Other specified hypothyroidism 09/16/2023 Pain, dental Perforated diverticulum 2017 perforated diverticuli Postmenopausal postcoital bleeding 12/09/2023 Seasonal allergic rhinitis due to pollen 12/09/2023 Stage 3a chronic kidney disease (CKD) ([facility]) 12/09/2023 STEMI (ST elevation myocardial infarction) ([facility]) ([facility]) Stress at home 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 11/16/2023 Medications [...] utilizing a nail nipper and electric bur disk grinder without incident. I have discussed the importance [...] Bao Noble DPM documented in this encounter [facility] 01-04-2025 History of Present illness Narrative [...] Past Medical History: Diagnosis Date Abnormal CXR Zrceo-4-tqmqklocbjdihzom deficiency 12/09/2023 Atypical mole Chronic obstructive pulmonary disease ([facility]) Cigarette nicotine dependence with nicotine-induced disorder 12/09/2023 Coronary artery disease ([facility]) Dental infection 12/09/2023 Diabetes type 2, controlled ([facility]) 09/30/2023 Diverticulitis 11/16/2023 Diverticulosis diverticulosis/diverticulitis Elevated alkaline phosphatase level 11/24/2023 Gastroesophageal reflux disease without esophagitis 09/16/2023 Generalized abdominal pain 08/31/2023 HTN (hypertension) ([facility]) Hypothyroidism ([facility]) Other specified hypothyroidism 09/16/2023 Pain, dental Perforated diverticulum 2016 perforated diverticuli Postmenopausal postcoital bleeding 12/09/2023 Seasonal allergic rhinitis due to pollen 12/09/2023 Stage 3a chronic kidney disease (CKD) ([facility]) 12/09/2023 STEMI (ST elevation myocardial infarction) ([facility]) ([facility]) Stress at home 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 11/16/2023 Past [...] 25 MG tablet Diabetes type 2, controlled ([facility]) Relevant Medications empagliflozin (Jardiance) 25 MG pioglitazone (Actos) 15 MG tablet Hyperlipidemia ([facility] [facility] Relevant Medications atorvastatin (Lipitor) 80 MG tablet Colovaginal fistula - Primary Has not had fu on that, not sure if this is related to abd pain w vaginal bleeding At last appt we ordered a CT abd/pelvis with, to date has not been completed, pt states insurance declined We will send more information Also refer to PATIENT COORDINATOR FRONT DESK Relevant Orders Ambulatory referral to Obstetrics / Gynecology Cigarette nicotine dependence with nicotine-induced disorder The patient has been advised of the risks of continued smoking: stroke, CT, all forms of cancer, lung disease, and . Options for quitting smoking include: cold turkey, hypnosis, acupuncture, nicotine replacement meds (gum, lozenges, and patches), Buproprion, and Varenicline. At this time pt is encouraged to evaluate their goals for wanting to quit smoking, and reach out to provider when ready to start this process Chronic kidney disease, stage 3a ([facility]) ([facility]) Check labs yearly and prn Control BP and DM On jardiance Seasonal allergic rhinitis due to pollen Relevant Medications montelukast (Singulair) 10 MG tablet Type 2 diabetes mellitus with diabetic chronic kidney disease ([facility]) Control sugar and bp, on farxiga Type 2 diabetes mellitus with diabetic polyneuropathy ([facility]) No medications for this Control blood sugars Associated Problem(s): Colovaginal fistula Has not had fu on that, not sure if this is related to abd pain w vaginal bleeding At last appt we ordered a CT abd/pelvis with, to date has not been completed, pt states insurance declined We will send more information Also refer to PATIENT COORDINATOR FRONT DESK Associated Problem(s): Gastroesophageal reflux disease without esophagitis [...] diabetes mellitus with diabetic chronic kidney disease ([facility]) Control sugar and bp, on farxiga Associated Problem(s): Chronic kidney disease, stage 3a (HCC) ([facility]) Check labs yearly and prn Control BP and DM On jardiance Associated Problem(s): HTN (hypertension) ([facility]) Please check blood pressure daily and record DASH diet Limit caffeine Take medication as directed Contact office if chest pain, pressure, dizziness, shortness of breath, swelling legs Recommend slow position changes Current med: b karon and noha At last appt we increased dose on lisinopril Associated Problem(s): Type 2 diabetes mellitus with diabetic polyneuropathy ([facility]) No medications for this Control blood sugars Associated Problem(s): Cigarette nicotine dependence with nicotine-induced disorder The patient has been advised of the risks of continued smoking: stroke, CT, all forms of cancer, lung disease, and . Options for quitting smoking include: cold turkey, hypnosis, acupuncture, nicotine replacement meds (gum, lozenges, and patches), Buproprion, and Varenicline. At this time pt is encouraged to evaluate their goals for wanting to quit smoking, and reach out to provider when ready to start this process documented in this encounter [facility] 01-04-2025 Instructions Veronique Harris NP - 01/04/2025 3:00 PM EDT Refer to PATIENT COORDINATOR FRONT DESK, Veronique Montez in [place] documented in this encounter [facility] 01-01-2025 Telephone encounter Note Patient called stating that she got a letter saying her insurance is denying her MRI, and she wanted to let you know. DEVONTE [facility] 01-01-2025 Miscellaneous Notes Patient called stating that she got a letter saying her insurance is denying her MRI, and she wanted to let you know. DEVONTE documented in this encounter [facility] 11-07-2024 Telephone encounter Note Pt called asking for a medication she took for bloating and cramping its a small pretty blue pill she [facility] to [facility]. She does not recall the name dose or anything else but she thinks this could help with the issue she currently has. [facility] 11-07-2024 Miscellaneous Notes Pt called asking for a medication she took for bloating and cramping its a small pretty blue pill she [facility] to get it from [facility]. She does not recall the name dose or anything else but she thinks this could help with the issue she currently has. documented in this encounter [facility] 11-06-2024 History of Present illness Narrative Associated Problem(s): 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 The patient has been advised of the risks of continued smoking: stroke, CT, all forms of cancer, lung disease, and [...] Past Medical History: Diagnosis Date Abnormal CXR Puszc-4-hedlwhnzoytihjwm deficiency 12/09/2023 Atypical mole Chronic obstructive pulmonary disease ([facility]) Cigarette nicotine dependence with nicotine-induced disorder 12/09/2023 Coronary artery disease ([facility]) Dental infection 12/09/2023 Diabetes type 2, controlled ([facility]) 09/30/2023 Diverticulitis 11/16/2023 Diverticulosis diverticulosis/diverticulitis Elevated alkaline phosphatase level 11/24/2023 Gastroesophageal reflux disease without esophagitis 09/16/2023 Generalized abdominal pain 08/31/2023 HTN (hypertension) ([facility]) Hypothyroidism ([facility]) Other specified hypothyroidism ([facility]) 09/16/2023 Pain, dental Perforated diverticulum 2016 perforated diverticuli Postmenopausal postcoital bleeding 12/09/2023 Seasonal allergic rhinitis due to pollen 12/09/2023 Stage 3a chronic kidney disease (CKD) ([facility]) 12/09/2023 STEMI (ST elevation myocardial infarction) ([facility]) ([facility]) Stress at home 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 11/16/2023 Past [...] of the risks of continued smoking: stroke, CT, all forms of cancer, lung disease, and [...] TRACT INFECTION (HTRX) documented in this encounter [facility] 09-18-2024 History of Present illness Narrative Images from the original note were not included. Subjective Patient ID: Fausto Corrigan is a 64 y.o.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 bilateral low back pain without sciatica Acute bilateral low back pain without sciatica- Primary Cigarette nicotine dependence with nicotine-induced disorder Primary hypertension ([facility]) Unspecified essential hypertension Abdominal aortic pulsation Screening for lung cancer 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 Tobacco use disorder Onychodystrophy- Primary Other specified disease of nail Ingrown toenail Ingrowing nail Onychomycosis Dermatophytosis of nail Diabetic polyneuropathy associated with type 2 diabetes mellitus ([facility]) Left foot pain Pain in soft tissues of limb documented in this encounter [facility] HealthcareEvaluation note* Diagnosis Controlled type 2 diabetes mellitus without complication, without long-term current use of insulin ([facility])- Primary Type 2 diabetes mellitus with diabetic chronic kidney disease ([facility]) Chronic kidney disease, stage 3a (HCC) ([facility]) Chronic obstructive pulmonary disease, unspecified ([facility]) Noevo-3-xislbmwnbok deficiency ([facility]/HCC) Jxobe-4-ezcqcwcyvbo deficiency Centrilobular emphysema ([facility]) Primary hypertension ([facility]) Unspecified essential hypertension Coronary artery disease involving [place] coronary artery 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 ([facility]) Gastroesophageal reflux disease without esophagitis Esophageal reflux Spqju-5-vwjtvnkjyzrsbyqv deficiency Microscopic hematuria Current smoker Elevated alkaline phosphatase level Hx of colonoscopy with polypectomy Controlled type 2 diabetes mellitus without complication, without long-term current use of insulin ([facility]/HCC)- Primary UTI symptoms Acute cystitis without hematuria [...] complication, without long-term current use of insulin ([facility]/HCC)- Primary Type 2 diabetes mellitus with diabetic chronic kidney disease ([facility]/HCC) Chronic kidney disease, stage 2 (mild) Hygzb-1-dbyamqdxcbw deficiency (CMS/HCC) Zamvj-7-xfedlmhukcc deficiency Mixed hyperlipidemia (CMS/HCC) Mixed hyperlipidemia Chronic obstructive pulmonary disease, unspecified COPD type (CMS/HCC) Gastroesophageal reflux disease without esophagitis Esophageal reflux Other specified hypothyroidism (CMS/HCC) Primary hypertension (CMS/HCC) Unspecified essential hypertension Seasonal allergic rhinitis due to pollen 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 Tobacco use disorder Coronary artery disease involving [place] coronary artery 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 (CMS/HCC) Abdominal aortic pulsation Acute bilateral low back pain without sciatica Acute bilateral low back pain without sciatica- Primary Cigarette nicotine dependence with nicotine-induced disorder Primary hypertension (CMS/HCC) Unspecified essential hypertension Abdominal aortic pulsation Screening for lung cancer 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 Tobacco use disorder Gastroesophageal reflux disease without esophagitis Esophageal reflux documented in this encounter [facility] HealthcareEvaluation note* Diagnosis Controlled type 2 diabetes mellitus without complication, without long-term current use of insulin ([facility]/HCC)- Primary Type 2 diabetes mellitus with diabetic chronic kidney disease (CMS/HCC) Chronic kidney disease, stage 3a (HCC) (CMS/HCC) Chronic obstructive pulmonary disease, unspecified (CMS/HCC) Kurmz-0-eexsdvfdxen deficiency (CMS/HCC) Rfriw-6-xmuyfbfonhn deficiency Centrilobular emphysema (CMS/HCC) Primary hypertension (CMS/HCC) Unspecified essential hypertension Coronary artery disease involving [place] coronary artery 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 (CMS/HCC) Gastroesophageal reflux disease without esophagitis Esophageal reflux Zoytq-1-hfwomfzcspauocjv deficiency Microscopic hematuria Current smoker Elevated alkaline phosphatase level Hx of colonoscopy with polypectomy Controlled type 2 diabetes mellitus without complication, without long-term current use of insulin ([facility]/HCC)- Primary UTI symptoms Acute cystitis without hematuria [...] complication, without long-term current use of insulin ([facility]/HCC)- Primary Type 2 diabetes mellitus with diabetic chronic kidney disease ([facility]/HCC) Chronic kidney disease, stage 2 (mild) Hqhkw-9-tulsqjsapvq deficiency ([facility]/HCC) Dzobw-2-pvjtqgvafbd deficiency Mixed hyperlipidemia (CMS/HCC) Mixed hyperlipidemia Chronic obstructive pulmonary disease, unspecified COPD type (CMS/HCC) Gastroesophageal reflux disease without esophagitis Esophageal reflux Other specified hypothyroidism (CMS/HCC) Primary hypertension ([facility]/HCC) Unspecified essential hypertension Seasonal allergic rhinitis due to pollen 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 Tobacco use disorder Coronary artery disease involving [place] coronary artery 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 (CMS/HCC) Abdominal aortic pulsation Acute bilateral low back pain without sciatica Acute bilateral low back pain without sciatica- Primary Cigarette nicotine dependence with nicotine-induced disorder Primary hypertension ([facility]/HCC) Unspecified essential hypertension Abdominal aortic pulsation Screening for lung cancer 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 Tobacco use disorder Gastroesophageal reflux disease without esophagitis Esophageal reflux documented in this encounter [facility] HealthcareEvaluation note* Diagnosis Controlled type 2 diabetes mellitus without complication, without long-term current use of insulin ([facility]/HCC)- Primary Type 2 diabetes mellitus with diabetic chronic kidney disease (CMS/HCC) Chronic kidney disease, stage 3a (HCC) ([facility]/HCC) Chronic obstructive pulmonary disease, unspecified (CMS/HCC) Iygxl-2-fvfonkptmhu deficiency ([facility]/HCC) Ovcer-1-ytwcvljxrkh deficiency Centrilobular emphysema (CMS/HCC) Primary hypertension (CMS/HCC) Unspecified essential hypertension Coronary artery disease involving [place] coronary artery 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 (CMS/HCC) Gastroesophageal reflux disease without esophagitis Esophageal reflux Xkdyu-3-idorinwyhuohlckf deficiency Microscopic hematuria Current smoker Elevated alkaline phosphatase level Hx of colonoscopy with polypectomy Controlled type 2 diabetes mellitus without complication, without long-term current use of insulin ([facility]/HCC)- Primary UTI symptoms Acute cystitis without hematuria Vaginal bleeding Other specified noninflammatory disorder of vagina Vaginal discharge Leukorrhea, not specified as infective Mixed hyperlipidemia (CMS/HCC) Mixed hyperlipidemia Chronic obstructive pulmonary disease, unspecified COPD type (CMS/HCC) Gastroesophageal reflux disease without esophagitis Esophageal reflux Other specified hypothyroidism (CMS/HCC) Primary hypertension ([facility]/HCC) Unspecified essential hypertension Seasonal allergic rhinitis due to pollen Controlled type 2 diabetes mellitus without complication, without long-term current use of insulin ([facility]/HCC)- Primary Type 2 diabetes mellitus with diabetic chronic kidney disease ([facility]/HCC) Chronic kidney disease, stage 2 (mild) Ydmbw-4-tlewlzpzjrt deficiency ([facility]/HCC) Oqedz-7-huhocgagtpt deficiency Mixed hyperlipidemia ([facility]/HCC) Mixed hyperlipidemia Chronic obstructive pulmonary disease, unspecified COPD type ([facility]/HCC) Gastroesophageal reflux disease without esophagitis Esophageal reflux Other specified hypothyroidism ([facility]/HCC) Primary hypertension ([facility]/HCC) Unspecified essential hypertension Seasonal allergic rhinitis due to pollen 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 Tobacco use disorder Coronary artery disease involving [place] coronary artery 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 (CMS/HCC) Abdominal aortic pulsation Acute bilateral low back pain without sciatica Acute bilateral low back pain without sciatica- Primary Cigarette nicotine dependence with nicotine-induced disorder Primary hypertension ([facility]/HCC) Unspecified essential hypertension Abdominal aortic pulsation Screening for lung cancer 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 Tobacco use disorder Dental infection- Primary documented in this encounter [facility]* Diagnosis Controlled type 2 diabetes mellitus without complication, without long-term current use of insulin ([facility])- Primary Type 2 diabetes mellitus with diabetic chronic kidney disease ([facility]/HCC) Chronic kidney disease, stage 3a (HCC) ([facility]/HCC) Chronic obstructive pulmonary disease, unspecified ([facility]/HCC) Hnorx-6-vmykuwgpdyk deficiency ([facility]/HCC) Oftpl-1-rucmlwnofxx deficiency Centrilobular emphysema (CMS/HCC) Primary hypertension ([facility]/HCC) Unspecified essential hypertension Coronary artery disease involving [place] coronary artery 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 (CMS/HCC) Gastroesophageal reflux disease without esophagitis Esophageal reflux Wphrx-3-fwpvgptstgllwphd deficiency Microscopic hematuria Current smoker Elevated alkaline phosphatase level Hx of colonoscopy with polypectomy Controlled type 2 diabetes mellitus without complication, without long-term current use of insulin ([facility])- Primary UTI symptoms Acute cystitis without hematuria Vaginal bleeding Other specified noninflammatory disorder of vagina Vaginal discharge Leukorrhea, not specified as infective Mixed hyperlipidemia ([facility]) Mixed hyperlipidemia Chronic obstructive pulmonary disease, unspecified COPD type ([facility]) Gastroesophageal reflux disease without esophagitis Esophageal reflux Other specified hypothyroidism ([facility]/HCC) Primary hypertension ([facility]) Unspecified essential hypertension Seasonal allergic rhinitis due to pollen Controlled type 2 diabetes mellitus without complication, without long-term current use of insulin ([facility])- Primary Type 2 diabetes mellitus with diabetic chronic kidney disease ([facility]) Chronic kidney disease, stage 2 (mild) Bzzso-3-dcuiydnikhs deficiency ([facility]) Hvciz-4-rcailzzxcft deficiency Mixed hyperlipidemia ([facility]) Mixed hyperlipidemia Chronic obstructive pulmonary disease, unspecified COPD type ([facility]) Gastroesophageal reflux disease without esophagitis Esophageal reflux Other specified hypothyroidism ([facility]) Primary hypertension ([facility]) Unspecified essential hypertension Seasonal allergic rhinitis due to pollen 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 Tobacco use disorder Coronary artery disease involving [place] coronary artery 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 ([facility]) Abdominal aortic pulsation Acute bilateral low back pain without sciatica Acute bilateral low back pain without sciatica- Primary Cigarette nicotine dependence with nicotine-induced disorder Primary hypertension ([facility]) Unspecified essential hypertension Abdominal aortic pulsation Screening for lung cancer 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 Tobacco use disorder UTI symptoms- Primary 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 Tobacco use disorder documented in this encounter [facility] HealthcareEvaluation note* Diagnosis Controlled type 2 diabetes mellitus without complication, without long-term current use of insulin ([facility])- Primary Type 2 diabetes mellitus with diabetic chronic kidney disease ([facility]) Chronic kidney disease, stage 3a (HCC) ([facility]) Chronic obstructive pulmonary disease, unspecified ([facility]) Smchb-4-rnskrdglbll deficiency ([facility]) Hlgop-0-wgqkjihovmm deficiency Centrilobular emphysema ([facility]) Primary hypertension ([facility]) Unspecified essential hypertension Coronary artery disease involving kal[place]el coronary artery 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 ([facility]) Gastroesophageal reflux disease without esophagitis Esophageal reflux Hnqmf-5-empswrtikgdwwpzs deficiency Microscopic hematuria Current smoker Elevated alkaline phosphatase level Hx of colonoscopy with polypectomy Controlled type 2 diabetes mellitus without complication, without long-term current use of insulin ([facility])- Primary UTI symptoms Acute cystitis without hematuria Vaginal bleeding Other specified noninflammatory disorder of vagina Vaginal discharge Leukorrhea, not specified as infective Mixed hyperlipidemia ([facility]) Mixed hyperlipidemia Chronic obstructive pulmonary disease, unspecified COPD type ([facility]) Gastroesophageal reflux disease without esophagitis Esophageal reflux Other specified hypothyroidism ([facility]) Primary hypertension ([facility]) Unspecified essential hypertension Seasonal allergic rhinitis due to pollen Controlled type 2 diabetes mellitus without complication, without long-term current use of insulin ([facility])- Primary Type 2 diabetes mellitus with diabetic chronic kidney disease ([facility]) Chronic kidney disease, stage 2 (mild) Noqie-4-wuoblpmbzfm deficiency ([facility]) Txfnz-9-ohpfihgdkxr deficiency Mixed hyperlipidemia ([facility]) Mixed hyperlipidemia Chronic obstructive pulmonary disease, unspecified COPD type ([facility]) Gastroesophageal reflux disease without esophagitis Esophageal reflux Other specified hypothyroidism ([facility]) Primary hypertension ([facility]) Unspecified essential hypertension Seasonal allergic rhinitis due to pollen 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 Tobacco use disorder Coronary artery disease involving [place] coronary artery 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 ([facility]) Abdominal aortic pulsation Acute bilateral low back pain without sciatica Acute bilateral low back pain without sciatica- Primary Cigarette nicotine dependence with nicotine-induced disorder Primary hypertension ([facility]) Unspecified essential hypertension Abdominal aortic pulsation Screening for lung cancer 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 Tobacco use disorder UTI symptoms- Primary 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 Tobacco use disorder Generalized abdominal pain- Primary Abdominal pain, generalized documented in this encounter [facility]* Diagnosis Controlled type 2 diabetes mellitus without complication, without long-term current use of insulin ([facility])- Primary Type 2 diabetes mellitus with diabetic chronic kidney disease ([facility]) Chronic kidney disease, stage 3a (HCC) ([facility]) Chronic obstructive pulmonary disease, unspecified ([facility]) Lmyfi-1-fipdsdficom deficiency ([facility]) Zhxjr-1-umhcmwnpbwl deficiency Centrilobular emphysema ([facility]) Primary hypertension ([facility]) Unspecified essential hypertension Coronary artery disease involving [place] coronary artery 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 ([facility]) Gastroesophageal reflux disease without esophagitis Esophageal reflux Oqlmt-5-qftdxscvukoisavn deficiency Microscopic hematuria Current smoker Elevated alkaline phosphatase level Hx of colonoscopy with polypectomy Controlled type 2 diabetes mellitus without complication, without long-term current use of insulin ([facility])- Primary UTI symptoms Acute cystitis without hematuria Vaginal bleeding Other specified noninflammatory disorder of vagina Vaginal discharge Leukorrhea, not specified as infective Mixed hyperlipidemia ([facility]) Mixed hyperlipidemia Chronic obstructive pulmonary disease, unspecified COPD type ([facility]) Gastroesophageal reflux disease without esophagitis Esophageal reflux Other specified hypothyroidism ([facility]) Primary hypertension ([facility]) Unspecified essential hypertension Seasonal allergic rhinitis due to pollen Controlled type 2 diabetes mellitus without complication, without long-term current use of insulin ([facility])- Primary Type 2 diabetes mellitus with diabetic chronic kidney disease ([facility]) Chronic kidney disease, stage 2 (mild) Batyi-9-cufnesdoebq deficiency ([facility]) Zfcla-3-koystoxzbqc deficiency Mixed hyperlipidemia ([facility]) Mixed hyperlipidemia Chronic obstructive pulmonary disease, unspecified COPD type ([facility]) Gastroesophageal reflux disease without esophagitis Esophageal reflux Other specified hypothyroidism ([facility]) Primary hypertension ([facility]) Unspecified essential hypertension Seasonal allergic rhinitis due to pollen 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 Tobacco use disorder Coronary artery disease involving [place] coronary artery 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 ([facility]) Abdominal aortic pulsation Acute bilateral low back pain without sciatica Acute bilateral low back pain without sciatica- Primary Cigarette nicotine dependence with nicotine-induced disorder Primary hypertension ([facility]) Unspecified essential hypertension Abdominal aortic pulsation Screening for lung cancer 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 Tobacco use disorder UTI symptoms- Primary 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 Tobacco use disorder Controlled type 2 diabetes mellitus without complication, without long-term current use of insulin ([facility]) Other specified hypothyroidism ([facility]) Gastroesophageal reflux disease without esophagitis Esophageal reflux Chronic obstructive pulmonary disease, unspecified COPD type ([facility]) documented in this encounter [facility] HealthcareEvaluation note* Diagnosis Controlled type 2 diabetes mellitus without complication, without long-term current use of insulin ([facility])- Primary Type 2 diabetes mellitus with diabetic chronic kidney disease ([facility]) Chronic kidney disease, stage 3a (HCC) ([facility]) Chronic obstructive pulmonary disease, unspecified ([facility]) Dhtqj-9-vimjrqocfqv deficiency ([facility]) Ybsuo-4-webcbddxzrj deficiency Centrilobular emphysema ([facility]) Primary hypertension ([facility]) Unspecified essential hypertension Coronary artery disease involving [place] coronary artery 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 ([facility]) Gastroesophageal reflux disease without esophagitis Esophageal reflux Uxxlx-1-ltwfspabhicapnjl deficiency Microscopic hematuria Current smoker Elevated alkaline phosphatase level Hx of colonoscopy with polypectomy Controlled type 2 diabetes mellitus without complication, without long-term current use of insulin ([facility])- Primary UTI symptoms Acute cystitis without hematuria Vaginal bleeding Other specified noninflammatory disorder of vagina Vaginal discharge Leukorrhea, not specified as infective Mixed hyperlipidemia (CMS/HCC) Mixed hyperlipidemia Chronic obstructive pulmonary disease, unspecified COPD type (CMS/HCC) Gastroesophageal reflux disease without esophagitis Esophageal reflux Other specified hypothyroidism (CMS/HCC) Primary hypertension ([facility]) Unspecified essential hypertension Seasonal allergic rhinitis due to pollen Controlled type 2 diabetes mellitus without complication, without long-term current use of insulin ([facility])- Primary Type 2 diabetes mellitus with diabetic chronic kidney disease ([facility]) Chronic kidney disease, stage 2 (mild) Mozwc-6-nakesbsdsqh deficiency ([facility]) Iqerd-9-cwisyvnxioq deficiency Mixed hyperlipidemia ([facility]) Mixed hyperlipidemia Chronic obstructive pulmonary disease, unspecified COPD type ([facility]) Gastroesophageal reflux disease without esophagitis Esophageal reflux Other specified hypothyroidism ([facility]) Primary hypertension ([facility]) Unspecified essential hypertension Seasonal allergic rhinitis due to pollen 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 Tobacco use disorder Coronary artery disease involving [place] coronary artery 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 ([facility]) Abdominal aortic pulsation Acute bilateral low back pain without sciatica Acute bilateral low back pain without sciatica- Primary Cigarette nicotine dependence with nicotine-induced disorder Primary hypertension ([facility]) Unspecified essential hypertension Abdominal aortic pulsation Screening for lung cancer 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 Tobacco use disorder UTI symptoms- Primary 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 Tobacco use disorder Lower abdominal pain- Primary Abdominal pain, other specified site Type 2 diabetes mellitus with diabetic chronic kidney disease (CMS/HCC) Chronic kidney disease, stage 3a (HCC) ([facility]) Ouhkw-2-njcjimbwoxh deficiency ([facility]) Qreug-4-bgtiuvkrwqf deficiency Type 2 diabetes mellitus with diabetic polyneuropathy ([facility]) Chronic obstructive pulmonary disease, unspecified COPD type ([facility]) Coronary artery disease involving [place] coronary artery 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 ([facility]) Primary hypertension ([facility]) Unspecified essential hypertension Gastroesophageal reflux disease without esophagitis Esophageal reflux Controlled type 2 diabetes mellitus without complication, without long-term current use of insulin ([facility]) Mixed hyperlipidemia (CMS/HCC) Mixed hyperlipidemia Elevated alkaline phosphatase level Cigarette nicotine dependence with nicotine-induced disorder Vaginal bleeding Other specified noninflammatory disorder of vagina Seasonal allergic rhinitis due to pollen Colovaginal fistula Controlled type 2 diabetes mellitus without complication, without long-term current use of insulin ([facility])- Primary documented in this encounter [facility] HealthcareEvaluation note* Diagnosis Controlled type 2 diabetes mellitus without complication, without long-term current use of insulin- Primary Type 2 diabetes mellitus with diabetic chronic kidney disease (CMS/HCC) Chronic kidney disease, stage 3a (HCC) ([facility]) Chronic obstructive pulmonary disease, unspecified Grdzj-7-pyotkziwiuy deficiency ([facility]) Htxgf-6-abvefwnfnoh deficiency Centrilobular emphysema ([facility]) Primary hypertension ([facility]) Unspecified essential hypertension Coronary artery disease involving [place] coronary artery 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 ([facility]) Gastroesophageal reflux disease without esophagitis Esophageal reflux Nquce-9-clktiphnlglnkput deficiency Microscopic hematuria Current smoker Elevated alkaline phosphatase level Hx of colonoscopy with polypectomy Controlled type 2 diabetes mellitus without complication, without long-term current use of insulin- Primary UTI symptoms Acute cystitis without hematuria Vaginal bleeding Other specified noninflammatory disorder of vagina Vaginal discharge Leukorrhea, not specified as infective Mixed hyperlipidemia ([facility]) Mixed hyperlipidemia Chronic obstructive pulmonary disease, unspecified COPD type ([facility]) Gastroesophageal reflux disease without esophagitis Esophageal reflux Other specified hypothyroidism Primary hypertension ([facility]) Unspecified essential hypertension Seasonal allergic rhinitis due to pollen Controlled type 2 diabetes mellitus without complication, without long-term current use of insulin- Primary Type 2 diabetes mellitus with diabetic chronic kidney disease ([facility]) Chronic kidney disease, stage 2 (mild) Ipuhe-3-pkaazizfstx deficiency ([facility]) Fstjn-1-cltdhhopmcr deficiency Mixed hyperlipidemia ([facility]) Mixed hyperlipidemia Chronic obstructive pulmonary disease, unspecified COPD type ([facility]) Gastroesophageal reflux disease without esophagitis Esophageal reflux Other specified hypothyroidism Primary hypertension ([facility]) Unspecified essential hypertension Seasonal allergic rhinitis due to pollen 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 Tobacco use disorder Coronary artery disease involving [place] coronary artery 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 ([facility]) Abdominal aortic pulsation Acute bilateral low back pain without sciatica Acute bilateral low back pain without sciatica- Primary Cigarette nicotine dependence with nicotine-induced disorder Primary hypertension ([facility]) Unspecified essential hypertension Abdominal aortic pulsation Screening for lung cancer 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 Tobacco use disorder UTI symptoms- Primary 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 Tobacco use disorder Lower abdominal pain- Primary Abdominal pain, other specified site Type 2 diabetes mellitus with diabetic chronic kidney disease (CMS/HCC) Chronic kidney disease, stage 3a (HCC) ([facility]) Dxmfc-9-fsukqhpyjbf deficiency ([facility]) Voavk-8-iwftpjmicvv deficiency Type 2 diabetes mellitus with diabetic polyneuropathy ([facility]) Chronic obstructive pulmonary disease, unspecified COPD type ([facility]) Coronary artery disease involving [place] coronary artery 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 ([facility]) Primary hypertension ([facility]) Unspecified essential hypertension Gastroesophageal reflux disease without esophagitis Esophageal reflux Controlled type 2 diabetes mellitus without complication, without long-term current use of insulin Mixed hyperlipidemia ([facility]) Mixed hyperlipidemia Elevated alkaline phosphatase level Cigarette nicotine dependence with nicotine-induced disorder Vaginal bleeding Other specified noninflammatory disorder of vagina Seasonal allergic rhinitis due to pollen Colovaginal fistula Primary hypertension ([facility]) Unspecified essential hypertension documented in this encounter [facility] HealthcareEvaluation note* Diagnosis Controlled type 2 diabetes mellitus without complication, without long-term current use of insulin- Primary Type 2 diabetes mellitus with diabetic chronic kidney disease ([facility]CC) Chronic kidney disease, stage 3a (HCC) ([facility]) Chronic obstructive pulmonary disease, unspecified Zvdzl-9-vgmbdeqagke deficiency ([facility]) Fmadz-0-mowrcicfnuy deficiency Centrilobular emphysema ([facility]) Primary hypertension ([facility]) Unspecified essential hypertension Coronary artery disease involving [place] coronary artery 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 ([facility]) Gastroesophageal reflux disease without esophagitis Esophageal reflux Gwxce-6-unrouofpenfxivny deficiency Microscopic hematuria Current smoker Elevated alkaline phosphatase level Hx of colonoscopy with polypectomy Controlled type 2 diabetes mellitus without complication, without long-term current use of insulin- Primary UTI symptoms Acute cystitis without hematuria Vaginal bleeding Other specified noninflammatory disorder of vagina Vaginal discharge Leukorrhea, not specified as infective Mixed hyperlipidemia ([facility]) Mixed hyperlipidemia Chronic obstructive pulmonary disease, unspecified COPD type ([facility]) Gastroesophageal reflux disease without esophagitis Esophageal reflux Other specified hypothyroidism Primary hypertension ([facility]) Unspecified essential hypertension Seasonal allergic rhinitis due to pollen Controlled type 2 diabetes mellitus without complication, without long-term current use of insulin- Primary Type 2 diabetes mellitus with diabetic chronic kidney disease (CMS/HCC) Chronic kidney disease, stage 2 (mild) Vhxqh-0-mnvysndotyp deficiency (CMS/HCC) Bzbil-2-qtqwwecbefc deficiency Mixed hyperlipidemia (CMS/HCC) Mixed hyperlipidemia Chronic obstructive pulmonary disease, unspecified COPD type (CMS/HCC) Gastroesophageal reflux disease without esophagitis Esophageal reflux Other specified hypothyroidism Primary hypertension (CMS/HCC) Unspecified essential hypertension Seasonal allergic rhinitis due to pollen 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 Tobacco use disorder Coronary artery disease involving [place] coronary artery 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 (CMS/HCC) Abdominal aortic [...] Chronic kidney disease, stage 3a (HCC) (CMS/HCC) Atknc-0-yefbeosbfhu deficiency (CMS/HCC) Wmymy-7-gvtbrxopwfp deficiency Type 2 diabetes mellitus with diabetic polyneuropathy (CMS/HCC) Chronic obstructive pulmonary disease, unspecified COPD type (CMS/HCC) Coronary artery disease involving [place] coronary artery 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 (CMS/HCC) Primary hypertension [...] (HCC) (CMS/HCC) Chronic obstructive pulmonary disease, unspecified Ducuz-3-yehoxyjqxff deficiency (CMS/HCC) Pebtb-8-jwqllbiylbi deficiency Centrilobular emphysema (CMS/HCC) Primary hypertension (CMS/HCC) Unspecified essential hypertension Coronary artery disease involving [place] coronary artery 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 (CMS/HCC) Gastroesophageal reflux disease without esophagitis Esophageal reflux Sflwd-9-cubyttzeqmpqrwfn deficiency Microscopic hematuria Current smoker Elevated alkaline [...] diabetes mellitus with diabetic chronic kidney disease ([facility]CC) Chronic kidney disease, stage 2 (mild) Kvadm-0-cyspxuyuspp deficiency ([facility]) Wqhly-0-foukwusqobi deficiency Mixed hyperlipidemia (CMS/HCC) Mixed hyperlipidemia Chronic obstructive pulmonary disease, unspecified COPD type (CMS/HCC) Gastroesophageal reflux disease without esophagitis Esophageal reflux Other specified hypothyroidism Primary hypertension ([facility]) Unspecified essential hypertension Seasonal allergic rhinitis due to pollen 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 Tobacco use disorder Coronary artery disease involving [place] coronary artery 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 (CMS/HCC) Abdominal aortic [...] Chronic kidney disease, stage 3a (HCC) (CMS/HCC) Fwblq-4-ycakwalpujl deficiency ([facility]) Batpc-6-bnpmdflvsoc deficiency Type 2 diabetes mellitus with diabetic polyneuropathy ([facility]) Chronic obstructive pulmonary disease, unspecified COPD type ([facility]) Coronary artery disease involving [place] coronary artery 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 ([facility]) Primary hypertension ([facility]) Unspecified essential hypertension Gastroesophageal reflux disease without esophagitis Esophageal reflux Controlled type 2 diabetes mellitus without complication, without long-term current use of insulin Mixed hyperlipidemia ([facility]) Mixed hyperlipidemia Elevated alkaline phosphatase level Cigarette nicotine dependence with nicotine-induced disorder Vaginal bleeding Other specified noninflammatory disorder of vagina Seasonal allergic rhinitis due to pollen Colovaginal fistula Colovaginal fistula- Primary Cigarette nicotine dependence with nicotine-induced disorder Type 2 diabetes mellitus with diabetic polyneuropathy, without long-term current use of insulin ([facility]) Primary hypertension ([facility]) Unspecified essential hypertension Chronic kidney disease, stage 3a (HCC) ([facility]) Type 2 diabetes mellitus with chronic kidney disease, without long-term current use of insulin, unspecified CKD stage ([facility]) Gastroesophageal reflux disease without esophagitis Esophageal reflux Mixed hyperlipidemia ([facility]) Mixed hyperlipidemia Chronic obstructive pulmonary disease, unspecified COPD type ([facility]) Other specified hypothyroidism Seasonal allergic rhinitis due to pollen Onychodystrophy- Primary Other specified disease of nail Onychomycosis Dermatophytosis of nail Diabetic polyneuropathy associated with type 2 diabetes mellitus ([facility]) documented in this encounter [facility] HealthcareEvaluation note* Diagnosis Controlled type 2 diabetes mellitus without complication, without long-term current use of insulin- Primary Type 2 diabetes mellitus with diabetic chronic kidney disease ([facility]CC) Chronic kidney disease, stage 3a (HCC) ([facility]) Chronic obstructive pulmonary disease, unspecified Fakep-6-ruofsfyneei deficiency ([facility]) Uhpkz-9-kazsyfetpvi deficiency Centrilobular emphysema ([facility]) Primary hypertension ([facility]) Unspecified essential hypertension Coronary artery disease involving [place] coronary artery 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 ([facility]) Gastroesophageal reflux disease without esophagitis Esophageal reflux Rwask-4-azlhhezzkgyuwywb deficiency Microscopic hematuria Current smoker Elevated alkaline phosphatase level Hx of colonoscopy with polypectomy Controlled type 2 diabetes mellitus without complication, without long-term current use of insulin- Primary UTI symptoms Acute cystitis without hematuria Vaginal bleeding Other specified noninflammatory disorder of vagina Vaginal discharge Leukorrhea, not specified as infective Mixed hyperlipidemia ([facility]/HCC) Mixed hyperlipidemia Chronic obstructive pulmonary disease, unspecified COPD type ([facility]) Gastroesophageal reflux disease without esophagitis Esophageal reflux Other specified hypothyroidism Primary hypertension ([facility]) Unspecified essential hypertension Seasonal allergic rhinitis due to pollen Controlled type 2 diabetes mellitus without complication, without long-term current use of insulin- Primary Type 2 diabetes mellitus with diabetic chronic kidney disease ([facility]) Chronic kidney disease, stage 2 (mild) Zrrku-0-wzdpjktmifm deficiency ([facility]) Pzuhu-2-dnigsrimeav deficiency Mixed hyperlipidemia ([facility]) Mixed hyperlipidemia Chronic obstructive pulmonary disease, unspecified COPD type ([facility]) Gastroesophageal reflux disease without esophagitis Esophageal reflux Other specified hypothyroidism Primary hypertension ([facility]) Unspecified essential hypertension Seasonal allergic rhinitis due to pollen 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 Tobacco use disorder Coronary artery disease involving kalispel coronary artery 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 ([facility]) Abdominal aortic pulsation Acute bilateral low back pain without sciatica Acute bilateral low back pain without sciatica- Primary Cigarette nicotine dependence with nicotine-induced disorder Primary hypertension ([facility]) Unspecified essential hypertension Abdominal aortic pulsation Screening for lung cancer 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 Tobacco use disorder UTI symptoms- Primary 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 Tobacco use disorder Lower abdominal pain- Primary Abdominal pain, other specified site Type 2 diabetes mellitus with diabetic chronic kidney disease ([facility]) Chronic kidney disease, stage 3a (HCC) ([facility]) Suvao-5-uqdylbrgrrc deficiency ([facility]) Nylkc-2-ufrapegvxjf deficiency Type 2 diabetes mellitus with diabetic polyneuropathy ([facility]) Chronic obstructive pulmonary disease, unspecified COPD type ([facility]) Coronary artery disease involving kalispel coronary artery 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 ([facility]) Primary hypertension ([facility]) Unspecified essential hypertension Gastroesophageal reflux disease without esophagitis Esophageal reflux Controlled type 2 diabetes mellitus without complication, without long-term current use of insulin Mixed hyperlipidemia ([facility]) Mixed hyperlipidemia Elevated alkaline phosphatase level Cigarette [...] type (CMS/HCC)- Primary documented in this encounter [facility] HealthcareEvaluation note* Diagnosis Controlled type 2 diabetes mellitus without complication, without long-term current use of insulin (HCC)- Primary Type 2 diabetes mellitus with diabetic chronic kidney disease (HCC) Chronic kidney disease, stage 3a (CMS-HCC) Chronic obstructive pulmonary disease, unspecified (HCC) Dsogc-5-bysyflsowpu deficiency (HCC) Dijlp-3-hldwaxnzpsq deficiency Centrilobular emphysema (HCC) Primary hypertension Unspecified essential hypertension Coronary artery disease involving kalispel coronary artery 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 Gastroesophageal reflux disease without esophagitis Esophageal reflux Eemjz-1-kixdztftzsphrdfo deficiency Microscopic hematuria Current smoker Elevated alkaline [...] (HCC) Chronic kidney disease, stage 2 (mild) Kgdbb-6-uixctwuvfui deficiency (HCC) Huxve-2-ldpjjfndlzv deficiency Mixed hyperlipidemia Mixed hyperlipidemia Chronic obstructive pulmonary disease, unspecified COPD type (HCC) Gastroesophageal reflux disease without esophagitis Esophageal reflux Other specified hypothyroidism Primary hypertension Unspecified essential hypertension Seasonal allergic rhinitis due to pollen 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 Tobacco use disorder Coronary artery disease involving kalispel coronary artery 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 Abdominal aortic pulsation [...] (HCC) Chronic kidney disease, stage 3a (CMS-HCC) Eqvkf-9-pqhcsagzyeq deficiency (HCC) Xiiny-3-vjmrvtwclkl deficiency Type 2 diabetes mellitus with diabetic polyneuropathy (HCC) Chronic obstructive pulmonary disease, unspecified COPD type (HCC) Coronary artery disease involving kalispel coronary artery 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 Primary hypertension Unspecified [...] Unspecified essential hypertension documented in this encounter [facility] HealthcareEvaluation [facility]* Diagnosis Controlled type 2 diabetes mellitus without complication, without long-term current use of insulin (HCC)- Primary Type 2 diabetes mellitus with diabetic chronic kidney disease (HCC) Chronic kidney disease, stage 3a (CMS-HCC) Chronic obstructive pulmonary disease, unspecified (HCC) Yeqaz-9-irqrujcmvdk deficiency (HCC) Dannp-2-gmopxksugfq deficiency Centrilobular emphysema (HCC) Primary hypertension Unspecified essential hypertension Coronary artery disease involving kalispel coronary artery 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 Gastroesophageal reflux disease without esophagitis Esophageal reflux Meitj-9-wzlxbajwsolovmsc deficiency Microscopic hematuria Current smoker Elevated alkaline [...] (HCC) Chronic kidney disease, stage 2 (mild) Ancoe-2-calcjblggzg deficiency (HCC) Flwll-0-pclevunvwgj deficiency Mixed hyperlipidemia Mixed hyperlipidemia Chronic obstructive pulmonary disease, unspecified COPD type (HCC) Gastroesophageal reflux disease without esophagitis Esophageal reflux Other specified hypothyroidism Primary hypertension Unspecified essential hypertension Seasonal allergic rhinitis due to pollen 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 Tobacco use disorder Coronary artery disease involving kalispel coronary artery 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 Abdominal aortic pulsation [...] (HCC) Chronic kidney disease, stage 3a (CMS-HCC) Qvkdu-3-ihnlnarxzbp deficiency (HCC) Tqghx-9-wedtuxscrfw deficiency Type 2 diabetes mellitus with diabetic polyneuropathy (HCC) Chronic obstructive pulmonary disease, unspecified COPD type (HCC) Coronary artery disease involving kalispel coronary artery 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 Primary hypertension Unspecified [...] Unspecified essential hypertension Coronary artery disease involving kalispel coronary artery 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 Vaginal bleeding Other specified noninflammatory disorder of vagina Chronic kidney disease, stage 3a ([facility]-HCC) Medical non-compliance Breast cancer screening by mammogram Cigarette nicotine dependence with nicotine-induced disorder Other specified hypothyroidism documented in this encounter [facility] HealthcareEvaluation note* Diagnosis Controlled type 2 diabetes mellitus without complication, without long-term current use of insulin (HCC)- Primary Type 2 diabetes mellitus with diabetic chronic kidney disease (HCC) Chronic kidney disease, stage 3a (CMS-HCC) Chronic obstructive pulmonary disease, unspecified (HCC) Ccsit-3-xxihylypcxk deficiency (HCC) Fztax-0-vjpzhcngzaq deficiency Centrilobular emphysema (HCC) Primary hypertension Unspecified essential hypertension Coronary artery disease involving kalispel coronary artery 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 Gastroesophageal reflux disease without esophagitis Esophageal reflux Ameot-3-vbjtpkoqcwagzsdp deficiency Microscopic hematuria Current smoker Elevated alkaline [...] (HCC) Chronic kidney disease, stage 2 (mild) Stnhy-4-azfemxgjwmr deficiency (HCC) Bfxzq-9-dofwxxilgai deficiency Mixed hyperlipidemia Mixed hyperlipidemia Chronic obstructive pulmonary disease, unspecified COPD type (HCC) Gastroesophageal reflux disease without esophagitis Esophageal reflux Other specified hypothyroidism Primary hypertension Unspecified essential hypertension Seasonal allergic rhinitis due to pollen 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 Tobacco use disorder Coronary artery disease involving kalispel coronary artery 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 Abdominal aortic pulsation [...] (HCC) Chronic kidney disease, stage 3a (CMS-HCC) Qkfpx-1-twdwyunbukq deficiency (HCC) Ivtmo-4-mjdoqexgtxl deficiency Type 2 diabetes mellitus with diabetic polyneuropathy (HCC) Chronic obstructive pulmonary disease, unspecified COPD type (HCC) Coronary artery disease involving kalispel coronary artery 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 Primary hypertension Unspecified [...] Unspecified essential hypertension Coronary artery disease involving kalispel coronary artery 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 Vaginal bleeding Other [...] deficiency Hypokalemia Hypopotassemia documented in this encounter [facility] HealthcareEvaluation note* Diagnosis Controlled type 2 diabetes mellitus without complication, without long-term current use of insulin (HCC)- Primary Type 2 diabetes mellitus with diabetic chronic kidney disease (HCC) Chronic kidney disease, stage 3a (CMS-HCC) Chronic obstructive pulmonary disease, unspecified (HCC) Imajk-0-ihkktgotpwt deficiency (HCC) Jiiet-5-nddmeeiixab deficiency Centrilobular emphysema (HCC) Primary hypertension Unspecified essential hypertension Coronary artery disease involving kalispel coronary artery 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 Gastroesophageal reflux disease without esophagitis Esophageal reflux Itrfa-9-hjvrrywzjpvgrafj deficiency Microscopic hematuria Current smoker Elevated alkaline [...] complication, without long-term current use of insulin ([facility])- Primary Type 2 diabetes mellitus with diabetic chronic kidney disease (HCC) Chronic kidney disease, stage 2 (mild) Ultov-5-zwlztbmelhm deficiency (HCC) Uzsor-0-jpkjrkslspi deficiency Mixed hyperlipidemia Mixed hyperlipidemia Chronic obstructive pulmonary disease, unspecified COPD type (HCC) Gastroesophageal reflux disease without esophagitis Esophageal reflux Other specified hypothyroidism Primary hypertension Unspecified essential hypertension Seasonal allergic rhinitis due to pollen 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 Tobacco use disorder Coronary artery disease involving kalispel coronary artery 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 Abdominal aortic pulsation [...] (HCC) Chronic kidney disease, stage 3a (CMS-HCC) Ilmxx-1-ocnfdhpdbrz deficiency (HCC) Bxbuh-7-fdiyrchevjl deficiency Type 2 diabetes mellitus with diabetic polyneuropathy (HCC) Chronic obstructive pulmonary disease, unspecified COPD type (HCC) Coronary artery disease involving k[place] coronary artery 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 Primary hypertension Unspecified [...] Unspecified essential hypertension Coronary artery disease involving kalispel coronary artery 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 Vaginal bleeding Other specified noninflammatory disorder of vagina Chronic kidney disease, stage 3a (CMS-HCC) Medical non-compliance Breast cancer screening by mammogram Cigarette nicotine dependence with nicotine-induced disorder Other specified hypothyroidism Microscopic hematuria- Primary Colovaginal fistula Elevated alkaline phosphatase level documented in this encounter [facility] HealthcareEvaluation note* Diagnosis Controlled type 2 diabetes mellitus without complication, without long-term current use of insulin (HCC)- Primary Type 2 diabetes mellitus with diabetic chronic kidney disease (HCC) Chronic kidney disease, stage 3a (CMS-HCC) Chronic obstructive pulmonary disease, unspecified (HCC) Bohlz-2-iynshzihxvr deficiency (HCC) Lqrhm-4-fgnafresknx deficiency Centrilobular emphysema (HCC) Primary hypertension Unspecified essential hypertension Coronary artery disease involving kalispel coronary artery 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 Gastroesophageal reflux disease without esophagitis Esophageal reflux Nekus-3-jkmdvfeohkejgbhr deficiency Microscopic hematuria Current smoker Elevated alkaline [...] (HCC) Chronic kidney disease, stage 2 (mild) Yjewp-3-ijkayirhjpt deficiency (HCC) Wxjkg-3-fujlphitejg deficiency Mixed hyperlipidemia Mixed hyperlipidemia Chronic obstructive pulmonary disease, unspecified COPD type (HCC) Gastroesophageal reflux disease without esophagitis Esophageal reflux Other specified hypothyroidism Primary hypertension Unspecified essential hypertension Seasonal allergic rhinitis due to pollen 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 Tobacco use disorder Coronary artery disease involving kalispel coronary artery 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 Abdominal aortic pulsation [...] (HCC) Chronic kidney disease, stage 3a (CMS-HCC) Qmvcg-5-rbmecamiybo deficiency (HCC) Zejjs-8-zrmrgiyawhp deficiency Type 2 diabetes mellitus with diabetic polyneuropathy (HCC) Chronic obstructive pulmonary disease, unspecified COPD type (HCC) Coronary artery disease involving kalispel coronary artery 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 Primary hypertension Unspecified [...] Unspecified essential hypertension Coronary artery disease involving k[place]ispel coronary artery 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 Vaginal bleeding Other specified noninflammatory disorder of vagina Chronic kidney disease, stage 3a (CMS-HCC) Medical non-compliance Breast cancer screening by mammogram Cigarette nicotine dependence with nicotine-induced disorder Other specified hypothyroidism Gastroesophageal reflux disease without esophagitis- Primary Esophageal reflux documented in this encounter [facility] HealthcareEvaluation note* Diagnosis Controlled type 2 diabetes mellitus without complication, without long-term current use of insulin (HCC)- Primary Type 2 diabetes mellitus with diabetic chronic kidney disease (HCC) Chronic kidney disease, stage 3a (CMS-HCC) Chronic obstructive pulmonary disease, unspecified (HCC) Oabia-8-dsiheofjokz deficiency (HCC) Lhomp-6-iesqooehadv deficiency Centrilobular emphysema (HCC) Primary hypertension Unspecified essential hypertension Coronary artery disease involving k[place]ispel coronary artery 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 Gastroesophageal reflux disease without esophagitis Esophageal reflux Exwgq-8-dytpyryqdimpfchk deficiency Microscopic hematuria Current smoker Elevated alkaline [...] (HCC) Chronic kidney disease, stage 2 (mild) Iuhll-7-llaulewjrhw deficiency (HCC) Dpkww-9-nmshkiyzocp deficiency Mixed hyperlipidemia Mixed hyperlipidemia Chronic obstructive pulmonary disease, unspecified COPD type (HCC) Gastroesophageal reflux disease without esophagitis Esophageal reflux Other specified hypothyroidism Primary hypertension Unspecified essential hypertension Seasonal allergic rhinitis due to pollen 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 Tobacco use disorder Coronary artery disease involving k[place]ispel coronary artery 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 Abdominal aortic pulsation [...] (HCC) Chronic kidney disease, stage 3a (CMS-HCC) Lrjkx-6-hrcaxcgxxfu deficiency (HCC) Hngkf-2-slqxykbnyuu deficiency Type 2 diabetes mellitus with diabetic polyneuropathy (HCC) Chronic obstructive pulmonary disease, unspecified COPD type (HCC) Coronary artery disease involving [place]isp[place] coronary artery 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 Primary hypertension Unspecified [...] Unspecified essential hypertension Coronary artery disease involving [place] coronary artery 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 Vaginal bleeding Other specified noninflammatory disorder of vagina Chronic kidney disease, stage 3a (CMS-HCC) Medical non-compliance Breast cancer screening by mammogram Cigarette nicotine dependence with nicotine-induced disorder Other specified hypothyroidism Gastroesophageal reflux disease without esophagitis- Primary Esophageal reflux Nausea and vomiting, unspecified vomiting type documented in this encounter [facility]Not on filedocumented [facility] Family History No Family History [...] for follow-up. She had inferior ST elevation CT with primary revascularization of the RCA in [...] She has a history of previous inferior CT in February 2021 (late presenting CT) with PCI of the RCA at that [...] (CMS/HCC) Veronique Harris, ANNA [address] [place] [address] Referral ID Status Reason Start Date Expiration Date V isits Requested Visits Authorized [id number] Pending Review 1 1 Additional Source Comments INFORMATION SOURCE (unrecogn ized section and content) DATE CREATED AUTHOR 03/22/2018 [facility] DATE CREATED AUTHOR AUTHOR'S ORGANIZ ATION 04/18/2018 [facility] DATE CREATED AUTHOR AUTHOR'S ORGANIZ ATION [facility] DATE CREATED AUTHOR AUTHOR'S ORGANIZ ATION 08/21/2021 [facility] DATE CREATED AUTHOR AUTHOR'S ORGANIZ ATION 10/19/2021 [facility] DATE CREATED AUTHOR AUTHOR'S ORGANIZ ATION 10/06/2022 [facility] DATE CREATED AUTHOR AUTHOR'S ORGANIZ ATION 10/07/2022 [facility] DATE CREATED AUTHOR AUTHOR'S ORGANIZ ATION 01/21/2023 [facility] DATE CREATED AUTHOR AUTHOR'S ORGANIZ ATION 01/18/2024 [facility] DATE CREATED AUTHOR AUTHOR'S ORGANIZ ATION 07/22/2024 [facility] DATE CREATED AUTHOR AUTHOR'S ORGANIZ ATION 04/09/2025 [facility] EPIC DATE CREATED AUTHOR AUTHOR'S ORGANIZ ATION 05/06/2025 [facility] ical Center Reason for Visit (unrecogniz ed section and content) Reason Onset Date Comments Med Refill 07/05/2024 Reason Comments Med Refill Reason Comments 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 [...] Care Teams (unrecognized sec tion and content) 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 Relationship Specialty Start Date End Date Stuart Deluca MD [address] [place] [phone] PCP - General Family Medicine 03/17/23 Veronique Harris, ANNA [address] [place] [phone] PCP - [facility] 03/27/24 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 Relationship Specialty Start Date End Date Stuatr Deluca MD [address] [place] [phone] PCP - General Family Medicine 03/17/23 Veronique Harris NP [address] [place] [phone] PCP - [facility] 03/27/24 Jany Saini LSW Coating Line Worker Family Medicine 07/25/24 07/27/24 Marta Doll LPN [address] [place] [address] Licensed Practical Nurse Family Medicine 07/27/24 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 Relationship Specialty Start Date End Date Stuart Deluca MD [address] [place] [phone] PCP - General Family Medicine 03/17/23 Veronique Harris NP [address] [place] [phone] PCP - [facility] 03/27/24 Jany Saini, JDAE Coating Line Worker Family Medicine 07/25/24 07/27/24 Marta Doll, CASING FLUID TENDER [address] [place] [address] Licensed Practical Nurse Family Medicine 07/27/24 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 Relationship Specialty Start Date End Date Stuart Deluca MD [address] [place] [phone] PCP - General Family Medicine 03/17/23 Veronique Harris NP [address] [place] [phone] PCP - [facility] 03/27/24 Jb Valdez MA Family Medicine 07/27/24 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 Relationship Specialty Start Date End Date Stuart Deluca MD [address] [place] [phone] PCP - General Family Medicine 03/17/23 Veronique Harris NP [address] [place] [address] PCP - [facility] 03/27/24 Jb Valdez MA Family Medicine 07/27/24 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 Relationship Specialty Start Date End Date Stuart Deluca MD [address] [place] [address] PCP - General Family Medicine 03/17/23 Veronique Harris NP [address] [place] [phone] PCP - [facility] 03/27/24 Jb Valdez MA Family [facility] 07/27/24 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 Relationship Specialty Start Date End Date Stuart Deluca MD [address] [place] [address] PCP - [facility] 03/17/23 Veronique Harris NP [address] [place] [address] PCP - [facility] 03/27/24 Jb Valdez MA Family Medicine 07/27/24 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 Relationship Specialty Start Date End Date Stuart Deluca MD [address] [place] [address] PCP - [facility] 03/17/23 Veronique Harris NP [address] [place] [address] PCP - [facility] 03/27/24 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 Relationship Specialty Start Date End Date Stuart Deluca MD [address] [place] [address] PCP - [facility] 03/17/23 Veronique Harris NP [address] [place] [address] PCP - [facility] 03/27/24 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 Relationship Specialty Start Date End Date Stuart Deluca MD [address] [place] [address] PCP - General Family Medicine 03/17/23 Veronique Harris NP [address] [place] [address] PCP - [facility] 03/27/24 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 Relationship Specialty Start Date End Date Stuart Deluca MD [address] [place] [address] PCP - General Family Medicine 03/17/23 Veronique Harris NP [address] [place] [address] PCP - [facility] 03/27/24 Jb Valdez MA Family Medicine 07/27/24 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 Relationship Specialty Start Date End Date Stuart Deluca MD [address] [place] [phone] PCP - General Family Medicine 03/17/23 Veronique Harris NP [address] [place] [address] PCP - [facility] 03/27/24 Jb Valdez MA Family Medicine 07/27/24 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 Relationship Specialty Start Date End Date Stuart Deluca MD [address] [place] [address] PCP - General Family Medicine 03/17/23 Veronique Harris NP [address] [place] [address] PCP - [facility] 03/27/24 Jb Valdez MA Family Medicine 07/27/24 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 Relationship Specialty Start Date End Date Stuart Deluca MD [address] [place] [address] PCP - General Family Medicine 03/17/23 Veronique Harris NP [address] [place] [address] PCP - [facility] 03/27/24 Jb Valdez MA [facility] 07/27/24 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 Relationship Specialty Start Date End Date Stuart Deluca MD [address] [place] [address] PCP - [facility] 03/17/23 Veronique Harris NP [address] [place] [address] PCP - [facility] 03/27/24 Jb Valdez MA Family Medicine 07/27/24 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 Relationship Specialty Start Date End Date Stuart Deluca MD [address] [place] [address] PCP - General Family [facility] 03/17/23 Veronique Harris NP [address] [place] [address] PCP - [facility] 03/27/24 Jb Valdez MA Family Medicine 07/27/24 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 Relationship Specialty Start Date End Date Stuart Deluca MD [address] [place] [address] PCP - General Family Medicine 03/17/23 Veronique Harris NP [address] [place] [address] PCP - [facility] 03/27/24 Jb Valdez MA Family [facility] 07/27/24 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 Relationship Specialty Start Date End Date Stuart Deluca MD [address] [place] [address] PCP - [facility] 03/17/23 Veronique Harris NP [address] [place] [address] PCP - [facility] [facility] 03/27/24 Jb Valdez MA Family [facility] 07/27/24 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 Relationship Specialty Start Date End Date Stuart Deluca MD [address] [place] [phone] PCP - General Family Medicine 03/17/23 Veronique Harris NP [address] [place] [phone] PCP - [facility] 03/27/24 Jb Valdez MA Family [facility] 07/27/24 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 Relationship Specialty Start Date End Date Stuart Deluca MD [address] [place] [phone] PCP - General Family Medicine 03/17/23 Veronique Harris NP [address] [place] [phone] PCP - [facility] 03/27/24 Jb Valdez MA Family [facility] 07/27/24 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 Relationship Specialty Start Date End Date Stuart Deluca MD [address] [place] [phone] PCP - General Family [facility] 03/17/23 Veronique Harris NP [address] [place] [phone] PCP - [facility] 03/27/24 Jb Valdez MA Family [facility] 07/27/24 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 Relationship Specialty Start Date End Date Stuart Deluca MD [address] [place] [phone] PCP - General Family Medicine 03/17/23 Veronique Harris NP [address] [place] [phone] PCP - [facility] 03/27/24 Jb Valdez MA Family Medicine 07/27/24 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 Relationship Specialty Start Date End Date Stuart Deluca MD [address] [place] [phone] PCP - General Family Medicine 03/17/23 Veronique Harris NP [address] [place] [phone] PCP - [facility] 03/27/24 Jb Valdez MA Family Medicine 07/27/24 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 Relationship Specialty Start Date End Date Veronique Harris, PHARMACIST IN CHARGE [employer]REVENUE [employer]IAISON PCP - General Nurse Practitioner 07/20/24 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 Relationship Specialty Start Date End Date Stuart Deluca MD [address] [place] [phone] PCP - General Family Medicine 03/17/23 Veronique Harris NP [address] [place] [phone] PCP - [facility] 03/27/24 Jb Valdez [place] [address] [place] [address] Family Medicine 07/27/24 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 Relationship Specialty Start Date End Date Stuart Deluca MD [address] [place] [phone] PCP - General Family Medicine 03/17/23 Veronique Harris NP [address] [place] [phone] PCP - [facility] 03/27/24 Jb Valdez [place] [address] [place] [address] Family Medicine 07/27/24 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 Relationship Specialty Start Date End Date Stuart Deluca MD [address] [place] [phone] PCP - General Family Medicine 03/17/23 Veronique Harris NP [address] [place] [address] PCP - [facility] 03/27/24 Jb Valdez MA [address] [place] [address] Family Medicine 07/27/24 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 Relationship Specialty Start Date End Date Stuart Deluca MD [address] [place] [address] PCP - General Family [facility] 03/17/23 Veronique Harris NP [address] [place] [phone] PCP - [facility] 03/27/24 Jb Valdez MA [address] [place] [address] Family Medicine 07/27/24 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 Relationship Specialty Start Date End Date Stuart Deluca MD [address] [place] [phone] PCP - General Family [facility] 03/17/23 Veronique Harris NP [address] [place] [address] PCP - [facility] 03/27/24 Jb Valdez MA [address] [place] [address] Family Medicine 07/27/24 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 Relationship Specialty Start Date End Date Stuart Deluca MD [address] [place] [address] PCP - General Family Medicine 03/17/23 Veronique Harris NP [address] [place] [address] PCP - [facility] 03/27/24 Jb Valdez MA [address] [place] [address] Family Medicine 07/27/24 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 Relationship Specialty Start Date End Date Stuart Deluca MD [address] [place] [phone] PCP - General Family Medicine 03/17/23 Veronique Harris NP [address] [place] [phone] PCP - [facility] 03/27/24 Jb Valdez MA [address] [place] [address] Family Medicine 07/27/24 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 Relationship Specialty Start Date End Date Stuart Deluca MD [address] [place] [phone] PCP - General Family Medicine 03/17/23 Veronique Harris NP [address] [place] [address] PCP - [facility] 03/27/24 Jb Valdez MA [address] [place] [address] Family Medicine 07/27/24 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 Relationship Specialty Start Date End Date Stuart Deluca MD [address] [place] [address] PCP - General Family Medicine 03/17/23 Veronique Harris NP [address] [place] [address] PCP - [facility] 03/27/24 Jb Valdez MA [address] [place] [address] Family [facility] 07/27/24 FOR RECORDS PERTAINING TO PATIENTS [...] BE BASED ON THE PRIMARY CLINICAL RECORDS. [facility]. provides no warranty or guarantee of the accuracy or completeness of information in this document.
[2025-05-09] MEDS: POTASSIUM CHLORIDE 10 MEQ ER TABLET 20 MEQ PO (12:14)
[2025-05-09] MEDS: METRONIDAZOLE/SODIUM CHLORIDE 500 MG/100 ML PREMIX 100 MG IV (12:16)
[2025-05-09] MEDS: PANTOPRAZOLE SODIUM 40 MG TABLET.DR PO ×2 (15:20→21:05)
[2025-05-09] MEDS: PIPERACILLIN SODIUM/TAZOBACTAM 3.375 GM in 0.9 % SODIUM CHLORIDE 50 ML IV (15:21)
[2025-05-09 18:13] LABS: Anion Gap 12.9; Blood Urea Nitrogen 45.0 mg/dL (7.0-18.0); Calcium 8.3 mg/dL (8.5-10.1); Carbon Dioxide 27.9 mmol/L (21.0-32.0); Chloride 99 mmol/L (98-107); Estimated GFR (African America 38 (>=60 mL/min/1.73m^2); Estimated GFR (Non-African Ame 32 (>=60 mL/min/1.73m^2); Glucose 129 mg/dL (74-106); Magnesium 1.5 mg/dL (1.8-2.4); Sodium 137 mmol/L (136-145)
[2025-05-09 18:16] LABS: Potassium 2.8 mmol/L (3.5-5.1)
[2025-05-09 18:48] LABS: C. Difficile PCR NEGATIVE
[2025-05-09] MEDS: POTASSIUM CHLORIDE 10 MEQ ER TABLET 40 MEQ PO (19:28)
[2025-05-09] MEDS: MAGNESIUM SULFATE/D5W 1 GM/100 ML PREMIX IV (19:28)
[2025-05-09] MEDS: ACETAMINOPHEN 325 MG TABLET 650 MG PO (19:29)
[2025-05-09] MEDS: SOD PHOSPHATE,MONOBASIC-DIBAS 15 MMOL in 0.9 % SODIUM CHLORIDE 100 ML 26.25 MMOL IV (21:05)
[2025-05-09] MEDS: ATORVASTATIN CALCIUM 40 MG TABLET 80 MG PO (21:05)
[2025-05-09] MEDS: MONTELUKAST SODIUM 10 MG TABLET PO (21:05)
[2025-05-09] MEDS: METOPROLOL TARTRATE 25 MG TABLET PO (21:05)
[2025-05-10 00:08] VITALS: BP 125/59; PULSE 91; TEMP 37.2; O2SAT 82
[2025-05-10] MEDS: POTASSIUM CHLORIDE 20 MEQ in 0.9 % SODIUM CHLORIDE 250 ML 130 MEQ IV (01:09)
[2025-05-10] MEDS: PIPERACILLIN SODIUM/TAZOBACTAM 3.375 GM in 0.9 % SODIUM CHLORIDE 50 ML IV ×3 (03:31→20:21)
[2025-05-10 03:37] VITALS: BP 121/74; PULSE 91; TEMP 36.9; O2SAT 85
[2025-05-10] MEDS: LEVOTHYROXINE SODIUM 125 MCG TABLET PO (05:40)
[2025-05-10 05:43] LABS: Hematocrit 40.1 % (36.0-48.0); Hemoglobin 13.3 g/dL (12.0-16.0); Immature Granulocytes Abs Auto 0.05 10^3/uL (0.00-0.03); Immature Granulocytes Pct Auto 0.6 % (0.0-0.5); Lymphocytes Absolute Auto 0.8 10^3/uL (1.2-3.8); Mean Corpuscular HGB Conc 33.2 g/dL (29.9-35.2); Mean Corpuscular Hemoglobin 30.4 pg (26.7-34.0); Mean Corpuscular Volume 91.6 fL (81.0-99.0); Platelet Count 200 10^3/uL (150-450); Red Blood Count 4.38 10^6/uL (4.20-5.40); White Blood Count 7.8 10^3/uL (4.0-11.0)
[2025-05-10 06:16] LABS: Alanine Aminotransferase <6 U/L (14-59); Albumin Globulin Ratio 0.5; Albumin Level 2.2 g/dL (3.4-5.0); Alkaline Phosphatase 119 U/L (46-116); Anion Gap 13.0; Aspartate Amino Transferase 17 U/L (15-37); Blood Urea Nitrogen 32.0 mg/dL (7.0-18.0); Calcium 8.1 mg/dL (8.5-10.1); Carbon Dioxide 24.9 mmol/L (21.0-32.0); Chloride 102 mmol/L (98-107); Estimated GFR (African America >60 (>=60 mL/min/1.73m^2); Estimated GFR (Non-African Ame 54 (>=60 mL/min/1.73m^2); Globulin 4.1 g/dL; Glucose 120 mg/dL (74-106); Sodium 137 mmol/L (136-145); Total Protein 6.3 g/dL (6.4-8.2)
[2025-05-10 06:20] LABS: Creatine Kinase 36 U/L (26-192)
[2025-05-10 06:21] LABS: Magnesium 1.9 mg/dL (1.8-2.4)
[2025-05-10 06:26] LABS: Potassium 2.9 mmol/L (3.5-5.1)
[2025-05-10 07:42] VITALS: BP 120/73; PULSE 87; TEMP 36.8; O2SAT 92
--- NOTE | 2025-05-10 07:54 | PC.NURSE ---
unable to recollect stool as it was mixed in urine
--- NOTE | 2025-05-10 07:59 | PC.NURSE ---
Dr. Eckert notified of patients 06/06 abdominal pain. No orders received at this time
[2025-05-10] MEDS: PANTOPRAZOLE SODIUM 40 MG TABLET.DR PO ×2 (09:07→20:20)
[2025-05-10] MEDS: METOPROLOL TARTRATE 25 MG TABLET PO ×2 (09:07→20:20)
[2025-05-10] MEDS: POTASSIUM CHLORIDE 10 MEQ ER TABLET 40 MEQ PO (09:07)
--- NOTE | 2025-05-10 09:30 | PM.HP ---
HPI H&P: HPI History of Present Illness Chief complaint: LIA, COLITIS, ILEITIS Narrative: Mrs. Corrigan is a 64-year-old female who has been having abdominal pain, nausea, vomiting and diarrhea for the last 10 days at least. On and off, fluctuation in intensity and severity. Patient came into the emergency room and was found to have acute kidney failure, significant hypokalemia. CAT scan of the abdomen showed evidence of colitis versus ileitis. Patient denies any hematemesis or melena. No fever or chills. No chest pain. No shortness of breath. 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 Patient reported having intermittent stool smear coming from the vagina. She had followed up with [facility] before and the recommendation was made not to proceed with any intervention according to the patient. Her pain mostly in the upper abdomen and not in the lower abdomen. Opioid HPI Opioid Management Most Recent Pain and Opioid Data: Last Pain Scale 9 Today, 09:00 Last Pain Assessment 05/09/25, 12:00 Last MAR Pain Assessment 05/09/25, 19:29 Last ORT Total Score 0 05/09/25, 11:54 Last ORT Risk Category Low Risk 05/09/25, 11:54 Review of Systems ROS Status of ROS 10 or more systems reviewed and unremarkable except as noted in history and below [facility] Medical History (Updated 05/10/25 @ 09:34 by Tessie Eckert MD) Rectovaginal fistula ?N82.3 - Fistula of vagina to large intestine (ICD-10) Hypothyroidism ?E03.9 - Hypothyroidism, unspecified (ICD-10) High cholesterol ?E78.00 - Pure hypercholesterolemia, unspecified (ICD-10) Gastric acidity ?K31.89 - Other diseases of stomach and duodenum (ICD-10) HTN (hypertension) ?I10 - Essential (primary) hypertension (ICD-10) Surgical History (Updated 05/09/25 @ 13:12 by Jazmin Rodriguez RN) History of lithotripsy ?Z98.890 - Other specified postprocedural states (ICD-10) History of appendectomy ?Z90.49 - Acquired absence of other specified parts of digestive tract (ICD-10) History of hysterectomy ?Z90.710 - Acquired absence of both cervix and uterus (ICD-10) History of cholecystectomy ?Z90.49 - Acquired absence of other specified parts of digestive tract (ICD-10) History of heart artery stent ?Z95.5 - Presence of coronary angioplasty implant and graft (ICD-10) Family History (Updated 05/09/25 @ 11:55 by Jazmin Rodriguez RN) Mother Family history of stroke Family history of myocardial infarction Family history of CHF (congestive heart failure) Family history of diabetes mellitus Family history of COPD (chronic obstructive pulmonary disease) Father Family history of myocardial infarction Family history of hypertension Family history of CHF (congestive heart failure) Family history of cancer Social History (Updated 05/09/25 @ 11:56 by Jazmin Rodriguez RN) Within the past year, how often did you have a drink containing alcohol: never Score interpretation: A score less than 3 is consistent with normal alcohol consumption. Smoking status: Current every day smoker Non-prescribed substance use: denies use Highest level of school completed/degree received: high school graduate Little interest or pleasure in doing things: not at all Feeling down, depressed, or hopeless: not at all Meds Home Medications and Allergies Home Medications ?Medication ?Instructions ?Recorded ?Confirmed ?Type atorvastatin 80 mg tablet 80 mg PO .QHS 05/09/25 05/09/25 History cholecalciferol (vitamin D3) 50 50 mcg PO DAILY 05/09/25 05/09/25 History mcg (2,000 unit) tablet cimetidine 200 mg tablet 200 mg PO ACHS 05/09/25 05/09/25 History empagliflozin 25 mg tablet 25 mg PO DAILY 05/09/25 05/09/25 History (Jardiance) levothyroxine 125 mcg tablet 125 mcg PO .ACB 05/09/25 05/09/25 History lisinopril 40 mg tablet 40 mg PO DAILY 05/09/25 05/09/25 History metoprolol tartrate 25 mg tablet 25 mg PO BID 05/09/25 05/09/25 History montelukast 10 mg tablet 10 mg PO .QHS 05/09/25 05/09/25 History ondansetron 4 mg disintegrating 4 mg PO Q6H PRN nausea and vomiting 05/09/25 05/09/25 History tablet pantoprazole 40 mg tablet,delayed 40 mg PO Q12H 05/09/25 05/09/25 History release pioglitazone 15 mg tablet 15 mg PO DAILY 05/09/25 05/09/25 History Allergies Allergy/AdvReac Type Severity Reaction Status Date / Time Sulfa (Sulfonamide Allergy Anaphylaxis Verified 05/09/25 08:55 Antibiotics) Exam Narrative Exam Narrative: [pt is awake and alert. oriented to place, time and person, dry skin and buccal mucosa. HEENT: [place] conjunctiva and NL buccal mucosa Neck: Supple, no tenderness Endocrine: No Thyromegaly. Vascular: No JVD or carotid bruit. Lymphatic: No cervical lymphadenopathy. Chest: CTA no DTP. Heart RRR, no extra sound or murmur. Abd: Soft, tenderness in the space between epigastric and umbilical area. No guarding, no rebound. No tenderness in the lower abdomen or suprapubic area Neuro: A A O. Nl speech, comprehension and attention. Nl and symetrical motor and tone examination through out. []] Constitutional Vital Signs, click to edit/add: Last Vital Signs Temp 98.3 F 05/10/25 07:42 Pulse 87 05/10/25 07:42 Resp 16 05/10/25 07:42 BP 120/73 05/10/25 07:42 Pulse Ox 92 L 05/10/25 07:42 O2 Del Method Room Air 05/10/25 07:42 O2 Flow Rate 3 05/10/25 03:37 Results Labs Labs: Short CBC 05/10/25 Range/Units 05:10 WBC 7.8 (4.0-11.0) 10^3/uL Hgb 13.3 (12.0-16.0) g/dL Hct 40.1 (36.0-48.0) % Plt Count 200 (150-450) 10^3/uL BMP 05/09/25 05/10/25 17:52 05:10 Sodium 137 137 Potassium 2.8 L* 2.9 L* Chloride 99 102 Carbon Dioxide 27.9 24.9 BUN 45.0 H 32.0 H Creatinine 1.64 H 1.03 H Glucose 129 H 120 H Calcium 8.3 L 8.1 L Cardiac Enzymes 05/10/25 Range/Units 05:10 Total Creatine Kinase 36 (26-192) U/L Liver Function 05/10/25 Range/Units 05:10 Total Bilirubin 0.9 (0.2-1.0) mg/dL AST 17 (15-37) U/L ALT <6 L (14-59) U/L Alkaline Phosphatase 119 H (46-116) U/L Albumin 2.2 L (3.4-5.0) g/dL Assessment and Plan Assessment and Plan (1) Ileitis: (2) Colitis: (3) Acute kidney injury: (4) Hypokalemia: (5) Hypomagnesemia: (6) Hypophosphatemia: (7) Dehydration: Plan Acute kidney injury Dehydration with volume loss caused by GI loss. Patient was admitted to the hospital due to the severity of her kidney failure She was started on IV fluid infusion. Improvement of kidney function since yesterday. UA is pending CAT scan does not show any obstructive uropathy. Continue to hold lisinopril. Hypokalemia, hypomagnesemia and hypophosphatemia Potassium, magnesium and phosphate supplementation Nausea, vomiting, diarrhea, abdominal pain and abnormal CT showing colitis versus ileitis Stool culture is pending. C. difficile is negative. Patient was started on Zosyn. This could be viral ileitis and colitis as well Antiemetics. Volume repletion. At some point, patient may need to have EGD and colonoscopy. No justification for urgent endoscopy. Diabetes Patient is on Actos and Jardiance which is on hold at this time due to LIA and volume depletion Accu-Chek with a sliding scale coverage. Hypothyroidism Resume Synthroid Hypertension Hold lisinopril due to LIA. Reported history of colovaginal fistula Patient had followed up in the past with the [facility]. No recent follow-up. Patient was not recommended to have any surgical intervention Her abdominal pain now is in the upper abdomen and likely not related to her colon vaginal fistula Patient will be encouraged to follow-up with [facility] colorectal team DVT prophylaxis Lovenox subcu Chronic medical conditions not listed above, incidental findings seen on labs and imaging. These would need to be addressed. Could be addressed when time and condition are appropriate. Could be addressed in the outpatient setting by PCP collaboration with other needed outpatient providers.
[2025-05-10] MEDS: POTASSIUM PHOS,M-BASIC-D-BASIC 30 MMOL in 0.9 % SODIUM CHLORIDE 250 ML 43.333 MMOL IV (10:05)
[2025-05-10] MEDS: DIPHENOXYLATE HCL 2.5 MG/ATROPINE 0.025 MG TABLET 1 TAB PO (10:05)
--- NOTE | 2025-05-10 10:12 | PC.NURSE ---
patient requiring much encouragement to take pills
--- NOTE | 2025-05-10 11:07 | SWNOTE1 ---
SW met with pt to discuss dc needs. Pt lives at home with her son. Pt's son in room during assessment. Pt does not use any DME at home and has no services coming in at this time. It is a one story home. Pt denies any needs or concerns at this time. No anticipated discharge needs. SW to follow as needed.
[2025-05-10 12:34] VITALS: BP 135/75; PULSE 85; TEMP 36.8; O2SAT 92
[2025-05-10] MEDS: MORPHINE SULFATE 2 MG/ML SYRINGE 1 MG IV (12:49)
[2025-05-10] MEDS: 0.9 % SODIUM CHLORIDE 1,000 ML 100 ML IV ×2 (12:49→23:02)
[2025-05-10 15:58] VITALS: BP 129/71; PULSE 86; TEMP 36.6; O2SAT 92
--- NOTE | 2025-05-10 16:28 | PC.NURSE ---
Pt agitated and wont allow any pokes after lab techs attempt to obtain 1600 BMP lab work ordered. Pt yelling out while techs in room, telling them to leave after several unsuccessful attempts. Tiget text sent to hospitalist
[2025-05-10] MEDS: MAALOX (MAG HYDROX/ALUMINUM HYD/SIMETH) 30 ML ORAL.SUSP 15 ML PO (18:33)
[2025-05-10 20:00] VITALS: BP 136/72; PULSE 88; TEMP 36.9; O2SAT 94
[2025-05-10] MEDS: PREGABALIN 50 MG CAPSULE PO (20:20)
[2025-05-10] MEDS: MAGNESIUM OXIDE 400 MG TABLET PO (20:20)
[2025-05-10] MEDS: ATORVASTATIN CALCIUM 40 MG TABLET 80 MG PO (22:17)
[2025-05-10] MEDS: MONTELUKAST SODIUM 10 MG TABLET PO (22:17)
[2025-05-11] VITALS (8 sets, daily range): BP systolic 103–142; BP diastolic 52–70; PULSE 75–87; TEMP 36.8–37.3; O2SAT 90–94; BMI 25.2
[2025-05-11] MEDS: BUMETANIDE 1 MG/4 ML VIAL IVP (01:19)
[2025-05-11] MEDS: POTASSIUM CHLORIDE 20 MEQ in 0.9 % SODIUM CHLORIDE 250 ML 130 MEQ IV (01:20)
[2025-05-11] MEDS: PIPERACILLIN SODIUM/TAZOBACTAM 3.375 GM in 0.9 % SODIUM CHLORIDE 50 ML IV ×2 (04:18→20:09)
[2025-05-11] MEDS: ACETAMINOPHEN 325 MG TABLET 650 MG PO (04:31)
[2025-05-11] MEDS: LEVOTHYROXINE SODIUM 125 MCG TABLET PO (05:37)
[2025-05-11 06:53] LABS: Anion Gap 12.7; Blood Urea Nitrogen 19.0 mg/dL (7.0-18.0); Calcium 7.9 mg/dL (8.5-10.1); Carbon Dioxide 23.8 mmol/L (21.0-32.0); Chloride 102 mmol/L (98-107); Estimated GFR (African America >60 (>=60 mL/min/1.73m^2); Estimated GFR (Non-African Ame >60 (>=60 mL/min/1.73m^2); Glucose 114 mg/dL (74-106); Magnesium 1.4 mg/dL (1.8-2.4); Potassium 3.5 mmol/L (3.5-5.1); Sodium 135 mmol/L (136-145)
--- NOTE | 2025-05-11 08:53 | CM.NOTE ---
Rounds made with Dr. Eckert, no discharge today. Pt inpatient status. Dr. Eckert discussed plan of care with pt, will attempt to increase diet today. Awaiting cultures.
--- NOTE | 2025-05-11 09:05 | PM.PN ---
Progress Note: Subjective Subjective Interval history: Patient started to feel better. Resolution of her vomiting. Persistent nausea. Resolution of diarrhea. Improvement of her abdominal pain intensity. No fever or chills. No hematemesis or melena Exam Narrative Exam Narrative: [pt is awake and alert. oriented to place, time and person, dry skin and buccal mucosa. HEENT: [place] conjunctiva and NL buccal mucosa Neck: Supple, no tenderness Endocrine: No Thyromegaly. Vascular: No JVD or carotid bruit. Lymphatic: No cervical lymphadenopathy. Chest: CTA no DTP. Heart RRR, no extra sound or murmur. Abd: Soft, resolution/improvement of the tenderness in the space between epigastric and umbilical area. No guarding, no rebound. No tenderness in the lower abdomen or suprapubic area Neuro: A A O. Nl speech, comprehension and attention. Nl and symetrical motor and tone examination through out. []] Constitutional Vital Signs, click to edit/add: Last Vital Signs Temp 98.4 F 05/11/25 04:00 Pulse 83 05/11/25 04:00 Resp 18 05/11/25 04:00 BP 106/66 05/11/25 04:00 Pulse Ox 90 L 05/11/25 04:22 O2 Del Method Room Air 05/11/25 04:23 O2 Flow Rate 2 05/11/25 04:00 Progress Note: Objective Labs Labs: [facility] 05/11/25 06:23 Sodium 135 L Potassium 3.5 Chloride 102 Carbon Dioxide 23.8 BUN 19.0 H Creatinine 0.81 Glucose 114 H Calcium 7.9 L Progress Note: A&P Assessment and Plan (1) Ileitis: (2) Colitis: (3) Acute kidney injury: (4) Hypokalemia: (5) Hypomagnesemia: (6) Hypophosphatemia: (7) Dehydration: Plan Acute kidney injury, resolved. Dehydration with volume loss caused by GI loss, resolved. Patient was admitted to the hospital due to the severity of her kidney failure She was started on IV fluid infusion. Improvement of kidney function since yesterday. UA does not show any protein or significant RBC to suggest glomerulonephritis CAT scan does not show any obstructive uropathy. Continue to hold lisinopril. Hypokalemia, hypomagnesemia and hypophosphatemia Additional potassium, magnesium and phosphate supplementation Nausea, vomiting, diarrhea, abdominal pain and abnormal CT showing colitis versus ileitis Symptoms much improved since yesterday Stool culture is pending. C. difficile is negative. Patient was started on Zosyn. This could be viral ileitis and colitis as well Antiemetics. Volume repletion. At some point, patient may need to have EGD and colonoscopy. No justification for urgent endoscopy. Diabetes Patient is on Actos and Jardiance which is on hold at this time due to LIA and volume depletion Accu-Chek with a sliding scale coverage. Hypothyroidism Resume Synthroid Hypertension Hold lisinopril due to LIA. Reported history of colovaginal fistula Patient had followed up in the past with the [facility]. No recent follow-up. Patient was not recommended to have any surgical intervention Her abdominal pain now is in the upper abdomen and likely not related to her colon vaginal fistula Patient will be encouraged to follow-up with [facility] colorectal team DVT prophylaxis Lovenox subcu Chronic medical conditions not listed above, incidental findings seen on labs and imaging. These would need to be addressed. Could be addressed when time and condition are appropriate. Could be addressed in the outpatient setting by PCP collaboration with other needed outpatient providers.
[2025-05-11] MEDS: 0.9 % SODIUM CHLORIDE 250 ML 10 ML IV (09:15)
[2025-05-11] MEDS: POTASSIUM PHOS,M-BASIC-D-BASIC 30 MMOL in 0.9 % SODIUM CHLORIDE 250 ML 43.333 MMOL IV (09:18)
[2025-05-11] MEDS: MAGNESIUM OXIDE 400 MG TABLET PO ×3 (09:19→21:30)
[2025-05-11] MEDS: PANTOPRAZOLE SODIUM 40 MG TABLET.DR PO ×2 (09:19→21:30)
[2025-05-11] MEDS: PREGABALIN 50 MG CAPSULE PO ×2 (09:19→21:30)
[2025-05-11] MEDS: TORSEMIDE 20 MG TABLET PO (09:21)
[2025-05-11] MEDS: POTASSIUM CHLORIDE 10 MEQ ER TABLET PO ×2 (13:48→21:30)
[2025-05-11] MEDS: MAGNESIUM SULFATE IN WATER 2 GM/50 ML PREMIX IV (14:56)
[2025-05-11] MEDS: SOD PHOSPHATE,MONOBASIC-DIBAS 15 MMOL in 0.9 % SODIUM CHLORIDE 100 ML 26.25 MMOL IV (20:09)
[2025-05-11] MEDS: ATORVASTATIN CALCIUM 40 MG TABLET 80 MG PO (21:30)
[2025-05-11] MEDS: METOPROLOL TARTRATE 25 MG TABLET PO (21:30)
[2025-05-11] MEDS: MONTELUKAST SODIUM 10 MG TABLET PO (21:30)
[2025-05-11] MEDS: MAALOX (MAG HYDROX/ALUMINUM HYD/SIMETH) 30 ML ORAL.SUSP 15 ML PO (21:34)
[2025-05-11] MEDS: OXYCODONE HCL 5 MG TABLET PO (21:39)
[2025-05-12] VITALS (8 sets, daily range): BP systolic 109–133; BP diastolic 57–77; PULSE 79–97; TEMP 36.6–36.9; O2SAT 84–95
[2025-05-12] MEDS: PIPERACILLIN SODIUM/TAZOBACTAM 3.375 GM in 0.9 % SODIUM CHLORIDE 50 ML IV ×3 (04:45→19:58)
[2025-05-12] MEDS: MAGNESIUM OXIDE 400 MG TABLET PO ×3 (05:44→21:25)
[2025-05-12] MEDS: POTASSIUM CHLORIDE 10 MEQ ER TABLET PO (05:44)
[2025-05-12] MEDS: LEVOTHYROXINE SODIUM 125 MCG TABLET PO (05:44)
[2025-05-12 06:09] LABS: Hematocrit 41.2 % (36.0-48.0); Hemoglobin 13.6 g/dL (12.0-16.0); Mean Corpuscular HGB Conc 33.0 g/dL (29.9-35.2); Mean Corpuscular Hemoglobin 29.8 pg (26.7-34.0); Mean Corpuscular Volume 90.4 fL (81.0-99.0); Platelet Count 229 10^3/uL (150-450); Red Blood Count 4.56 10^6/uL (4.20-5.40); White Blood Count 7.4 10^3/uL (4.0-11.0)
[2025-05-12 06:20] LABS: Anion Gap 10.3; Blood Urea Nitrogen 14.0 mg/dL (7.0-18.0); Calcium 8.0 mg/dL (8.5-10.1); Carbon Dioxide 29.0 mmol/L (21.0-32.0); Chloride 100 mmol/L (98-107); Estimated GFR (African America >60 (>=60 mL/min/1.73m^2); Estimated GFR (Non-African Ame >60 (>=60 mL/min/1.73m^2); Glucose 137 mg/dL (74-106); Potassium 3.3 mmol/L (3.5-5.1); Sodium 136 mmol/L (136-145)
[2025-05-12 06:25] LABS: Magnesium 1.7 mg/dL (1.8-2.4)
[2025-05-12] MEDS: MAALOX (MAG HYDROX/ALUMINUM HYD/SIMETH) 30 ML ORAL.SUSP 15 ML PO (08:05)
[2025-05-12] MEDS: PANTOPRAZOLE SODIUM 40 MG TABLET.DR PO ×2 (08:06→21:25)
[2025-05-12] MEDS: METOPROLOL TARTRATE 25 MG TABLET PO ×2 (08:06→21:25)
[2025-05-12] MEDS: PREGABALIN 50 MG CAPSULE PO ×2 (08:06→21:25)
--- NOTE | 2025-05-12 09:42 | P.PN_ITS ---
Progress Note: Subjective Subjective Interval history: Patient started to feel better. Resolution of her vomiting. Persistent nausea. Resolution of diarrhea. Improvement of her abdominal pain intensity. No fever or chills. No hematemesis or melena Exam Constitutional Vital Signs, click to edit/add: Last Vital Signs Temp 98.5 F 05/12/25 07:53 Pulse 91 H 05/12/25 07:53 Resp 18 05/12/25 07:53 BP 114/66 05/12/25 07:53 Pulse Ox 90 L 05/12/25 04:00 O2 Del Method Room Air 05/12/25 04:00 O2 Flow Rate 2 05/11/25 04:00 Progress Note: Objective Labs Labs: Short CBC 05/12/25 Range/Units 05:44 WBC 7.4 (4.0-11.0) 10^3/uL Hgb 13.6 (12.0-16.0) g/dL Hct 41.2 (36.0-48.0) % Plt Count 229 (150-450) 10^3/uL BMP 05/12/25 05:44 Sodium 136 Potassium 3.3 L Chloride 100 Carbon Dioxide 29.0 BUN 14.0 Creatinine 0.75 Glucose 137 H Calcium 8.0 L Progress Note: A&P Assessment and Plan (1) Ileitis: (2) Colitis: (3) Acute kidney injury: (4) Hypokalemia: (5) Hypomagnesemia: (6) Hypophosphatemia: (7) Dehydration: Plan Acute kidney injury, resolved. Dehydration with volume loss caused by GI loss, resolved. Patient was admitted to the hospital due to the severity of her kidney failure She was started on IV fluid infusion. Improvement of kidney function since yesterday. UA does not show any protein or significant RBC to suggest glomerulonephritis CAT scan does not show any obstructive uropathy. Continue to hold lisinopril. Hypokalemia, hypomagnesemia and hypophosphatemia Additional potassium, magnesium and phosphate supplementation Nausea, vomiting, diarrhea, abdominal pain and abnormal CT showing colitis versus ileitis Symptoms much improved since yesterday Stool culture is pending. C. difficile is negative. Patient was started on Zosyn. This could be viral ileitis and colitis as well Antiemetics. Volume repletion. At some point, patient may need to have EGD and colonoscopy. Will arrange for patient to follow-up with GI service at [facility] No justification for urgent endoscopy. Diabetes Patient is on Actos and Jardiance which is on hold at this time due to LIA and volume depletion Accu-Chek with a sliding scale coverage. Hypothyroidism Resume Synthroid Hypertension Hold lisinopril due to LIA. Reported history of colovaginal fistula Patient had followed up in the past with the [facility]. No recent follow-up. Patient was not recommended to have any surgical intervention Her abdominal pain now is in the upper abdomen and likely not related to her colon vaginal fistula Patient will be encouraged to follow-up with [facility] colorectal team DVT prophylaxis Lovenox subcu Chronic medical conditions not listed above, incidental findings seen on labs and imaging. These would need to be addressed. Could be addressed when time and condition are appropriate. Could be addressed in the outpatient setting by PCP collaboration with other needed outpatient providers.
[2025-05-12] MEDS: POTASSIUM PHOS,M-BASIC-D-BASIC 30 MMOL in 0.9 % SODIUM CHLORIDE 250 ML 43.333 MMOL IV (10:02)
[2025-05-12] MEDS: POTASSIUM CHLORIDE 10 MEQ ER TABLET 20 MEQ PO (10:02)
[2025-05-12] MEDS: OXYCODONE HCL 5 MG TABLET PO (10:06)
[2025-05-12] MEDS: TORSEMIDE 20 MG TABLET PO (10:07)
[2025-05-12] MEDS: MAGNESIUM SULFATE/D5W 1 GM/100 ML PREMIX IV (10:12)
[2025-05-12] MEDS: ACETAMINOPHEN 325 MG TABLET 650 MG PO (19:58)
[2025-05-12] MEDS: ATORVASTATIN CALCIUM 40 MG TABLET 80 MG PO (21:25)
[2025-05-12] MEDS: MONTELUKAST SODIUM 10 MG TABLET PO (21:25)
[2025-05-13 03:58] VITALS: O2SAT 82
[2025-05-13 04:00] VITALS: BP 117/71; PULSE 86; TEMP 36.8; O2SAT 91
[2025-05-13] MEDS: PIPERACILLIN SODIUM/TAZOBACTAM 3.375 GM in 0.9 % SODIUM CHLORIDE 50 ML IV ×2 (04:09→13:11)
[2025-05-13] MEDS: ACETAMINOPHEN 325 MG TABLET 650 MG PO (04:12)
[2025-05-13] MEDS: MAGNESIUM OXIDE 400 MG TABLET PO ×2 (05:52→13:12)
[2025-05-13] MEDS: LEVOTHYROXINE SODIUM 125 MCG TABLET PO (05:52)
[2025-05-13 08:22] VITALS: BP 101/64; PULSE 78; TEMP 36.4; O2SAT 92
[2025-05-13 08:31] VITALS: O2SAT 90
[2025-05-13] MEDS: PANTOPRAZOLE SODIUM 40 MG TABLET.DR PO (09:26)
[2025-05-13] MEDS: PREGABALIN 50 MG CAPSULE PO (09:26)
[2025-05-13] MEDS: METOPROLOL TARTRATE 25 MG TABLET PO (09:26)
[2025-05-13 09:55] VITALS: O2SAT 85; O2SAT 88; O2SAT 92
--- NOTE | 2025-05-13 11:22 | PM.DS1 ---
DS: Providers Provider Date of admission: 05/09/25 11:37 Primary care physician: Veronique Harris NP DS: Diagnosis Discharge Diagnosis (1) Ileitis: (2) Colitis: (3) Acute kidney injury: (4) Hypokalemia: (5) Hypomagnesemia: (6) Hypophosphatemia: (7) Dehydration: (8) COPD (chronic obstructive pulmonary disease): (9) DM type 2 (diabetes mellitus, type 2): (10) Hypoxic respiratory failure: (11) History of solitary pulmonary nodule: (12) Rectovaginal fistula: Plan As listed above and others that are not listed DS: Summary Hospital Course Hospital Course: Mrs. Corrigan is a 64-year-old female who came in with abdominal pain, nausea, vomiting and was found to have the following: Acute kidney injury, resolved. Dehydration with volume loss caused by GI loss, resolved. Patient was admitted to the hospital due to the severity of her kidney failure She was started on IV fluid infusion. Improvement of kidney function since yesterday. UA does not show any protein or significant RBC to suggest glomerulonephritis CAT scan does not show any obstructive uropathy. Patient was on lisinopril 40 mg daily. Her blood pressure systolically is 110. Changed to 5 mg daily. Hypokalemia, hypomagnesemia and hypophosphatemia Status post potassium, magnesium and phosphate supplementation These electrolytes will need to be checked by PCP in the outpatient setting to ensure stability. Nausea, vomiting, diarrhea, abdominal pain and abnormal CT showing colitis versus ileitis Symptoms much improved since yesterday Stool culture is pending. C. difficile is negative. Patient was started on Zosyn. This could be viral ileitis and colitis as well Antiemetics. Volume repletion. At some point, patient may need to have EGD and colonoscopy. Will arrange for patient to follow-up with GI service at [facility]. I will ask patient to follow-up with Dr. Luh Ko. No justification for urgent endoscopy. Diabetes Patient is on Actos and Jardiance which is on hold at this time due to LIA and volume depletion Accu-Chek with a sliding scale coverage. Patient will be discharged home on Jardiance and metformin. Hopefully Jardiance will not cause any further dehydration or kidney failure as long as the patient is not having diarrhea or vomiting. I would recommend the patient to stop taking Jardiance if she continues to have intermittent vomiting and diarrhea putting her at risk having recurrent LIA and dehydration. Hypothyroidism Resume Synthroid Hypertension Hold lisinopril due to LIA. Blood pressure is stable off lisinopril. Resume lisinopril at 5 mg daily instead of 40 mg daily. Adjustment of her lisinopril as well as bisoprolol would need to be addressed by PCP in the outpatient setting. Reported history of colovaginal fistula Patient had followed up in the past with the [facility]. No recent follow-up. Patient was not recommended to have any surgical intervention Her abdominal pain now is in the upper abdomen and likely not related to her colon vaginal fistula Patient will be encouraged to follow-up with [facility] colorectal team. Patient stated that the [facility] is too far from her and does not want a follow-up. I will ask patient to follow-up with Dr. Jose Garzon. COPD Patient requires 1 to 2 L oxygen supplementation Asymptomatic Patient qualifies for home oxygen, 1 L with exertion only. I will ask patient to follow-up with aircraft instrument tester at [facility]'s at Dr. Armendariz Previous history of lung nodule seen on CAT scan completed in January 2023. Patient is at risk having lung cancer due to a previous smoking history. I would recommend repeat CAT scan of the chest to be completed by PCP and for patient to follow-up with pulmonary at [facility] Dr. Armendariz. PCP might need to initiate a referral to see pulmonology. DVT prophylaxis Lovenox subcu Chronic medical conditions not listed above, incidental findings seen on labs and imaging. These would need to be addressed. Could be addressed when time and condition are appropriate. Could be addressed in the outpatient setting by PCP collaboration with other needed outpatient providers. Patient has multiple complex medical issues as listed above and others that are not listed. All appear to be stable. I do not have any clear or strong clinical justification to extend inpatient hospitalization. Patient however will require close and frequent monitoring as well as additional work-up, investigation and therapeutic intervention that could take place from this point on post discharge. That is to prevent relapse, decompensation, rehospitalization and other medical implications. I instructed patient to ask her primary care doctor to obtain [facility] record entirely to address abnormalities seen on labs and imaging that I have and have not addressed during this hospitalization, follow-up on pending blood work, imaging and pathology is if available and to follow-up on needed medical care in the outpatient setting. Time Spent with Patient Time attestation: Total time spent providing and/or coordinating discharge services: Time spent: greater than 30 minutes Exam Constitutional Vital Signs, click to edit/add: Last Vital Signs Temp 97.6 F 05/13/25 08:22 Pulse 78 05/13/25 08:22 Resp 18 05/13/25 08:22 BP 101/64 05/13/25 08:22 Pulse Ox 90 L 05/13/25 08:31 O2 Del Method Room Air 05/13/25 08:31 O2 Flow Rate 3 05/13/25 04:00 DS: Data Data Completed and Pending Labs on day of discharge: Labs from last 24 hours 05/13/25 05/12/25 08:20 16:10 POC Glucose 123 H 117 H Preliminary micro results at discharge 05/09/25 11:05 Blood Culture Result 2 - Preliminary Blood NO GROWTH AT 36-48 HOURS. FINAL TO FOLLOW. 05/09/25 09:04 Blood Culture Result 1 - Preliminary Blood NO GROWTH AT 36-48 HOURS. FINAL TO FOLLOW. Discharge Plan Discharge Disposition: Home, Self-Care Condition: Fair Discharge Medications: New magnesium oxide 400 mg (241.3 mg magnesium) Tablet 400 mg PO DAILY Qty: 30 0RF lisinopril 5 mg tablet 5 mg PO DAILY Qty: 30 1RF metformin 500 mg tablet 500 mg PO BID Qty: 60 1RF amoxicillin-pot clavulanate 875-125 mg tablet 1 tab PO BID Qty: 14 0RF potassium chloride 10 mEq capsule, extended release 10 meq PO DAILY Qty: 14 0RF Continued atorvastatin 80 mg tablet 80 mg PO .QHS cholecalciferol (vitamin D3) 50 mcg (2,000 unit) tablet 50 mcg PO DAILY Jardiance 25 mg tablet 25 mg PO DAILY levothyroxine 125 mcg tablet 125 mcg PO .ACB metoprolol tartrate 25 mg tablet 25 mg PO BID montelukast 10 mg tablet 10 mg PO .QHS ondansetron 4 mg tablet,disintegrating 4 mg PO Q6H PRN (Reason: nausea and vomiting) Changed pantoprazole 40 mg tablet,delayed release (DR/EC) 40 mg PO DAILY Qty: 0 0RF Discontinued cimetidine 200 mg tablet 200 mg PO ACHS lisinopril 40 mg tablet 40 mg PO DAILY pioglitazone 15 mg tablet 15 mg PO DAILY Print Language: Cuban Activity Restrictions/Additional Instructions: I may not have addressed or treated all of your medical illnesses or the abnormal blood work or imaging studies during this hospitalization. Please ask your primary care provider to obtain [facility] records entirely to follow up on all of the abnormal physical, laboratory, and imaging findings that I have not addressed. Please follow-up with Marcello Lozada and Stefani as listed on the follow-up appointment Please follow-up with your primary care doctor or nurse practitioner within 7 days to monitor your condition, adjust your blood pressure medication, adjust your diabetes medication, monitor your volume status, check potassium level ( BMP blood test ) Check your blood sugar 3 times a day before meals. Document these numbers on a blood glucose log and bring them with you to your follow-up appointment with your primary care doctor. Communicate with your primary care doctor or occupancy specialist if your blood sugar is under 100 or above 300 on 2 consecutive checks. Communicate with your primary care doctor or occupancy specialist if you have any questions about your diabetes medications. Signs of a low blood sugar include sweating, racing heart, dizziness and/or weakness. Check your blood sugar if you have any of the symptoms. Please return back to the emergency room or seek medical attention if your symptoms worsen or return. Discharging you from [facility] does not mean that your medical care ends here and now. You may still need additional monitoring, work up, investigation, and treatment plan to be handled from this point on by out patient providers including your primary care provider and specialists. For any medication question, please contact your retail pharmacist or your primary care provider. Thank you. Forms: Portal Instructions Follow Up Appointments: Follow-up with Dr. Shiraz Garzon regrading colon- vagina fistula Phone number Follow-up with Dr. Mitra Ko guarding the need for EGD and colonoscopy stomach and colon scope Phone number Follow-up with Dr. Mani Talbert regarding COPD, lung nodule and needed the lung care Phone number
--- NOTE | 2025-05-13 11:33 | XR_ITS ---
[address] [address] Patient Name: FAUSTO KRISHNAMURTHY MRN: [id number] date: 1960 Sex: F Assigned Patient Location: [place] Current Patient Location: [place] Accession/Order Number: [id number] Exam Date: 05/13/2025 12:50 Report Date: 05/13/2025 12:51 At the request of: SHIMA JOSHI MD Procedure: XR chest 1V Single view chest: CLINICAL HISTORY: COPD, HX lung nodule COMPARISON: None FINDINGS: Heart normal in size. No lung consolidation pneumothorax or pleural effusion. Mild interstitial changes , likely chronic XR/XR chest 1V IMPRESSION: PRESUMED CHRONIC INTERSTITIAL CHANGES. NO CONSOLIDATION TO SUGGEST PNEUMONIA. Impression dictated by: Girish Stock Jr.OChrista 05/13/2025 12:51 PM Dictation Location: [place] [address] Electronically authenticated by: [id number] Y Date: 05/13/2025 12:51
--- NOTE | 2025-05-13 11:33 | PM.EN ---
Event Note Event Note: Patient was noted to have borderline hypoxemia. Oxygen saturation on room air stays above 90% however patient drops her oxygen below 88% with exertion requiring 1 L of oxygen with exertion Likely chronic asymptomatic hypoxic respiratory failure secondary to underlying COPD. Chest x-ray will be ordered. Patient is known to have a lung nodule seen on a CAT scan completed 2 years ago. Not sure if patient followed up on that. I would request repeat chest x-ray and instruct patient to follow-up with pulmonary team at [facility]. PCP might need to initiate a referral.
[2025-05-13] MEDS: OXYCODONE HCL 5 MG TABLET PO (16:07)
--- NOTE | 2025-05-14 10:44 | PC.NURSE ---
Wed. 05/16 @ 9am with Dr. Garzon (gen. surg) [phone] 05/18 @ 10am with Dr. Ko (gastro) [phone] Dr. Talbert's office (pul) will not make a follow up appt. without a referral
--- NOTE | 2025-05-14 14:42 | CM.DCFOLLOWU ---
1st attempt 05/14/25, no answer. Attempted daughter listed as well
--- NOTE | 2025-05-15 14:42 | SWNOTE1 ---
[facility]WA called and made follow up appointment with Veronique Harris for 05/21/25 at 2:00pm. HAWA to call pt back and let her know.
--- NOTE | 2025-05-15 14:42 | SWNOTE1 ---
SW also spoke to Veronique Harris's nurse and requested they send a referral to [facility], Dr Talbert. Fax number provided.
--- NOTE | 2025-05-15 14:59 | CM.NOTE ---
Spoke with pt on telephone about medications, pt had questions when SS did f/u appt. Pt has all her medications in pill dispenser and does not know which pills to remove. After 30 minutes on telephone, pt unable to get medications . Pt will come to hospital in am and RN and pharmacist will assist pt with medications and provide further education.
--- NOTE | 2025-05-15 15:00 | CM.DCFOLLOWU ---
Person spoke with:patient How are you feeling? fine How is your pain?none Did you understand your discharge instructions? yes, questions about medications Do you have any questions about your discharge instructions? medication questions Were you given any prescriptions at discharge?yes Were you able to get your prescriptions filled?yes Do you understand how to take your medications as ordered? No patient had several questions, even called her PCP to ask questions. Spoke to case management and advised pt to come to hospital and we will assist pt with medication education Do you have any questions about your follow up appointment and do you plan to keep your follow up appointment? She called Veronique's office to schedule follow up, waiting supply person back. I advised pt that I will call office and get one scheduled Is there anything else that you would like to discuss? redirecting questions in regards to medications to case management Questions/Comments/Concerns/Other:N/A
--- NOTE | 2025-05-16 10:27 | CM.NOTE ---
Pt arrives today to go over medications, pt confused as to what medications to take. Pt had gone to [facility] and was told to continue 30 day supply and then would change to new medications. Shavon from pharmacy will reach out to [facility] to clarify. All medications removed from packages and accordingly in pill dispenser as prescribed. Explained and educated pt on medications and how she will take at home, pt verbalizes understanding of pill dispenser. Pill dispenser is correctly set up until Wednesday AM for dosing. Pt then will return to medication management to assist with refilling pill dispenser. Pt verbalizes understanding, pt also given written instructions. Pt also had appointment this am with general surgery and went to incorrect appointment. Rescheduled appointment for patient by [facility] physician office secretary and gave patient appointment date and time written out on paper. Explained again to patient reason for appointments.
--- NOTE | 2025-05-16 10:28 | PC.NURSE ---
Rescheduled follow up appt. with Dr. Garzon (gen. surg) 05/21 @ 9:15 am [address], [address], [place] [phone]
--- NOTE | 2025-05-16 15:16 | SWNOTE1 ---
HAWA made follow up call to check and make sure pt and son are aware of follow ups that were re-scheduled today. HAWA spoke to pt and she voiced she does understand her meds better. SW also went over the follow up apt that was rescheduled for Wednesday in [place]. Pt voiced she has it written down. SW asked if her son was there and she voiced yes. SW requested to speak with her son. Pt's son, Gee, came to the phone. He did confirm that pt had a paper with her follow ups appointments writted on them and one is for Wednesday and one is for Wednesday, both in [place]. He did ask if she had a follow up with PCP. HAWA advised that she does and it is on Wednesday as well at 2:00 pm. HAWA let pt's son know that if they have any further questions about medications or appointments, they can always call back to HAWA or case operator and we can assist. He voiced appreciation.
== END 2025-05-13 17:22 | disposition home or self-care (01) | DRG 249 ==
LOC: ER 10:41 → MS 11:42
PROVIDERS: Admitting Provider Internal Medicine; Emergency Provider Emergency Medicine; PCP Nurse Practitioner; Visit Provider Internal Medicine
DX: A08.4 Viral intestinal infection, unspecified (principal); N17.9 Acute kidney failure, unspecified; J96.11 Chronic respiratory failure with hypoxia; J44.9 Chronic obstructive pulmonary disease, unspecified; N82.3 Fistula of vagina to large intestine; E87.6 Hypokalemia; E03.9 Hypothyroidism, unspecified; E78.00 Pure hypercholesterolemia, unspecified; E83.42 Hypomagnesemia; E83.39 Other disorders of phosphorus metabolism; E86.0 Dehydration; I10 Essential (primary) hypertension; R91.1 Solitary pulmonary nodule; Z79.899 Other long term (current) drug therapy; Z79.890 Hormone replacement therapy; Z79.84 Long term (current) use of oral hypoglycemic drugs; Z90.710 Acquired absence of both cervix and uterus; Z95.5 Presence of coronary angioplasty implant and graft; Z82.3 Family history of stroke; Z82.49 Family history of ischemic heart disease and other diseases of the circulatory system; F17.200 Nicotine dependence, unspecified, uncomplicated; Z88.2 Allergy status to sulfonamides
CPT/HCPCS: 36415; 71045; 74176; 80048; 80053; 82550; 82948; 83735; 84100; 85007; 85025; 85027; 87040; 87045; 87046; 87427; 87493; 94761; 96361; 96365; 96375; 99285; 99406; J0744; J1836; J2270; J2405; J2543; J3475; J3480

== ENCOUNTER 2025-07-11 13:40 | Outpatient (OUT) | payer OTHER, SELFPAY ==
--- OUTSIDE RECORDS SUMMARY | 2025-07-11 13:48 | XMS_ITS | CCD ---
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 adult (278.02,V85.25) (E66.3,Z68.29) Current every day smoker (305.1) (F17.200) 6 CIGS A DAY History of 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 You may also call 3-407-ZNWOCitelighterNOW for free resources and assistance.; Status:Complete - [...] She has a history of previous inferior TN in February 2021 (late presenting TN) with PCI of the RCA at that [...] DAILY Current (more content not included)... Normal [employer] Tobacco Screening.on 023 Adult depression screening assessment No -[facility] [employer] [address] DO Work Phone: Fall risk assessment c) Not medically indicated MP-No rth [place] [employer] DO Work Phone: Tobacco use status [facility]PHS a) Yes -[facility] [employer] DO Work Phone: Tobacco Screening. Yes [facility] [place] 250 DO Work Phone: CT LUNG [...] HANNAH MOORE Date: 2022-09-01 10:57 Normal [facility] CBC AUTO DIFFon 06-17-2022 BASO # 0.1 103/ul Normal 0.0-0.1 [facility] Comment on above: Performed By: #### C BC #### [facility] [address] [address] [address] Oneal Vieyra Basophils/100 WBC (Bld) 0.5 % Normal 0.2-2.0 [facility] Comment on above: Performed By: #### C BC #### [facility] [address] [address] [address] Oneal Vieyra EO # 0.1 103/ul Normal 0.0-0.7 [facility] Comment on above: Performed By: #### C BC #### [facility] [address] [address] [address] Oneal Vieyra Eosinophils/100 WBC (Bld) 1.3 % Normal 0.9-7.0 [facility] Comment on above: Performed By: #### C BC #### [facility] [address] [place] [address] Dr. Oneal Vieyra Erythrocyte distribution width (RBC) [Ratio] 13.4 % Normal 11.0-15.0 [facility] Comment on above: Performed By: #### C BC #### [facility] [address] [place] [address] Dr. Oneal Vieyra Hematocrit (Bld) [Volume fraction] 51.8 % Critically high 36.0-48.0 [facility] Comment on above: Performed By: #### C BC #### [facility] [address] [place] [address] Dr. Oneal Vieyra Hemoglobin (Bld) [Mass/Vol] 16.1 g/dL Critically high 12.0-16.0 [facility] Comment on above: Performed By: #### C BC #### [facility] [address] [place] [address] Dr. Oneal Vieyra IG # 0.03 10e3/ul Normal 0.00-0.03 [facility] Comment on above: Performed By: #### C BC #### [facility] [address] [place] [address] Dr. Oneal Vieyra IG % 0.3 % Normal 0.0-0.5 [facility] Comment on above: Performed By: #### C BC #### [facility] [address] [place] [address] Dr. Oneal Vieyra LYMPH # 3.7 103/ul Normal 1.2-3.8 [facility] Comment on above: Performed By: #### C BC #### [facility] [address] [place] [address] Dr. Oneal Vieyra Lymphocytes/100 WBC (Bld) 34.5 % Normal 20.5-60.0 [facility] Comment on above: Performed By: #### C BC #### [facility] [address] [place] [address] Dr. Oneal Vieyra MANUAL DIFF REQ NO Normal [facility] Comment on above: Performed By: #### C BC #### [facility] [address] [place] [address] Dr. Oneal Vieyra MCH (RBC) [Entitic mass] 29.7 pg Normal 26.7-34.0 [facility] Comment on above: Performed By: #### C BC #### [facility] [address] [place] [address] Dr. Oneal Vieyra MCHC (RBC) [Mass/Vol] 31.1 g/dL Normal 29.9-35.2 [facility] Comment on above: Performed By: #### C BC #### [facility] [address] [place] [address] Dr. Oneal Vieyra MCV (RBC) [Entitic vol] 95.6 fL Normal 81.0-99.0 [facility] Comment on above: Performed By: #### C BC #### [facility] [address] [place] [address] Dr. Oneal Vieyra MONO # 0.8 103/ul Normal 0.3-0.8 [facility] Comment on above: Performed By: #### C BC #### [facility] [address] [place] [address] Dr. Oneal Vieyra Monocytes/100 WBC (Bld) 7.6 % Normal 1.7-12.0 [facility] Comment on above: Performed By: #### C BC #### [facility] [address] [place] [address] Dr. Oneal Vieyra NEUT # 5.9 103/ul Normal 1.4-6.5 [facility] Comment on above: Performed By: #### C BC #### [facility] [address] [place] [address] Dr. Oneal Vieyra Neutrophils/100 WBC (Bld) 55.8 % Normal 43.0-75.0 [facility] Comment on above: Performed By: #### C BC #### [facility] [address] [place] [address] Dr. Oneal Vieyra Platelet mean volume (Bld) [Entitic vol] 12.1 fL Normal 9.5-13.5 [facility] Comment on above: Performed By: #### C BC #### [facility] [address] [address] [address] Oneal Vieyra PLT 224 103/ul Normal 150-450 [facility] Comment on above: Performed By: #### C BC #### [facility] [address] [place] [address] Dr. Oneal Vieyra RBC 5.42 106/ul Critically high 4.20-5.40 [facility] Comment on above: Performed By: #### C BC #### [facility] [address] [place] [address] Dr. Oneal Vieyra WBC 10.6 103/ul Normal 4.0-11.0 [facility] Comment on above: Performed By: #### C BC #### [facility] [address] [place] [address] Dr. Oneal Vieyra FREE T4on 06-17-2022 Free T4 [Mass/Vol] 0.98 ng/dL Normal 0.76-1.46 [facility] Comment on above: Performed By: #### F T4 #### [facility] [address] [place] [address] Dr. Oneal Vieyra GLYCOHEMOGLOBIN A1Con 2021 ADA RECOMMENDATION SEE BELOW Normal [facility] Comment on above: Result Comment: ADA RECOMMENDED LIMIT 4.0 - 6.0 ADA THERAPEUTIC TARGET < 7.0 ACTION SUGGESTED > 7.0 Performed By: #### A 1C #### [facility] [address] [place] [address] Dr. Oneal Vieyra Glucose [Mass/Vol] 146 mg/dL Normal [facility] Comment on above: Performed By: #### A 1C #### [facility] [address] [place] [address] Dr. Oneal Vieyra HbA1c (Bld) [Mass fraction] 6.7 % Critically high 4.5-6.2 [facility] Comment on above: Performed By: #### A 1C #### [facility] [address] [place] [address] Dr. Oneal Vieyra LIPID PROFILEon 06-17-2022 CHOL-HDL RATIO NORM SEE BELOW Normal [facility] Comment on above: Result Comment: 3.3 - 4.4 LOW RISK 4.4 - 7.1 AVERAGE RISK 7.1 - 11.0 MODERATE RISK >11.0 HIGH RISK Performed By: #### L IPID, TSH, CMP #### [facility] [address] [address] [address] Oneal Vieyra Cholesterol [Mass/Vol] 161 mg/dL Normal <=200 [facility] Comment on above: Performed By: #### L IPID, TSH, CMP #### [facility] [address] [address] [address] Oneal Vieyra Cholesterol in HDL [Mass/Vol] 33 mg/dL Critically low 40-60 [facility] Comment on above: Performed By: #### L IPID, TSH, CMP #### [facility] [address] [address] [address] Oneal Vieyra Cholesterol in LDL [Mass/Vol] 63.8 mg/dL Normal [facility] Comment on above: Performed By: #### L IPID, TSH, CMP #### [facility] [address] [address] [address] Oneal Vieyra Cholesterol.total/ Cholesterol in HDL [Mass ratio] 4.9 {ratio} Normal [facility] Comment on above: Performed By: #### L IPID, TSH, CMP #### [facility] [address] [place] [address] Dr. Oneal Vieyra HDL NORMAL > or = 60 mg/dl - LO W CARDIOVASCULAR RISK <40 mg/dl - HIGH CARDIOVASCULAR RISK Normal [facility] Comment on above: Performed By: #### L IPID, TSH, CMP #### [facility] [address] [place] [address] Dr. Oneal Vieyra LDL CALC NORMAL SEE BELOW Normal [facility] Comment on above: Result Comment: <100 mg/dl OPTIMAL 100 - 129 mg/dl NEAR OR ABOVE OPTIMAL 130 - 159 mg/dl BORDERLINE HIGH 160 - 189 mg/dl HIGH >190 mg/dl VERY HIGH Performed By: #### L IPID, TSH, CMP #### [facility] [address] [address] [address] Oneal Vieyra Triglyceride [Mass/Vol] 321 mg/dL Critically high <=150 [facility] Comment on above: Performed By: #### L IPID, TSH, CMP #### [facility] [address] [address] [address] Oneal Vieyra VLDL CALC 64.2 mg/dL Normal [facility] Comment on above: Performed By: #### L IPID, TSH, CMP #### [facility] [address] [address] [address] Oneal Vieyra PROF 14(COMP METB)on 022 Albumin [Mass/Vol] 3.7 g/dL Normal 3.4-5.0 [facility] Comment on above: Performed By: #### L IPID, TSH, CMP #### [facility] [address] [place] [address] Dr. Oneal Vieyra Albumin/Globulin [Mass ratio] 0.9 {ratio} Normal [facility] Comment on above: Performed By: #### L IPID, TSH, CMP #### [facility] [address] [address] [address] Oneal Vieyra ALP [Catalytic activity/Vol] 171 U/L Critically high 46-116 [facility] Comment on above: Performed By: #### L IPID, TSH, CMP #### [facility] [address] [place] [address] Dr. Oneal Vieyra ALT [Catalytic activity/Vol] 19 U/L Normal 14-59 [facility] Comment on above: Performed By: #### L IPID, TSH, CMP #### [facility] [address] [address] [address] Oneal Vieyra Anion gap [Moles/Vol] 5.6 mmol/L Normal [facility] Comment on above: Performed By: #### L IPID, TSH, CMP #### [facility] [address] [place] [address] Dr. Oneal Vieyra AST [Catalytic activity/Vol] 13 U/L Critically low 15-37 [facility] Comment on above: Performed By: #### L IPID, TSH, CMP #### [facility] [address] [place] [address] Dr. Oneal Vieyra Bilirubin [Mass/Vol] 0.5 mg/dL Normal 0.2-1.0 [facility] Comment on above: Performed By: #### L IPID, TSH, CMP #### [facility] [address] [address] [address] Oneal Vieyra Calcium [Mass/Vol] 9.1 mg/dL Normal 8.5-10.1 [facility] Comment on above: Performed By: #### L IPID, TSH, CMP #### [facility] [address] [address] [address] Oneal Vieyra Chloride [Moles/Vol] 105 mmol/L Normal 98-107 [facility] Comment on above: Performed By: #### L IPID, TSH, CMP #### [facility] [address] [place] [address] Dr. Oneal Vieyra CO2 [Moles/Vol] 35.3 mmol/L Critically high 21.0-32.0 [facility] Comment on above: Performed By: #### L IPID, TSH, CMP #### [facility] [address] [place] [address] Dr. Oneal Vieyra Creatinine [Mass/Vol] 0.88 mg/dL Normal 0.55-1.02 [facility] Comment on above: Performed By: #### L IPID, TSH, CMP #### [facility] [address] [place] [address] Dr. Oneal Vieyra EGFR-AF SUDANESE >60 Normal >=60 [facility] Comment on above: Performed By: #### L IPID, TSH, CMP #### [facility] [address] [place] [address] Dr. Oneal Vieyra EGFR-NON AF SUDANESE >60 Normal >=60 [facility] Comment on above: Performed By: #### L IPID, TSH, CMP #### [facility] [address] [place] [address] Dr. Oneal Vieyra Globulin (S) [Mass/Vol] 4.3 g/dL Normal [facility] Comment on above: Performed By: #### L IPID, TSH, CMP #### [facility] [address] [address] [address] Oneal Vieyra Glucose [Mass/Vol] 93 mg/dL Normal 74-106 [facility] Comment on above: Performed By: #### L IPID, TSH, CMP #### [facility] [address] [address] [address] Oneal Vieyra Potassium [Moles/Vol] 3.9 mmol/L Normal 3.5-5.1 [facility] Comment on above: Performed By: #### L IPID, TSH, CMP #### [facility] [address] [place] [address] Dr. Oneal Vieyra Protein [Mass/Vol] 8.0 g/dL Normal 6.4-8.2 [facility] Comment on above: Performed By: #### L IPID, TSH, CMP #### [facility] [address] [place] [address] Dr. Oneal Vieyra Sodium [Moles/Vol] 142 mmol/L Normal 136-145 [facility] Comment on above: Performed By: #### L IPID, TSH, CMP #### [facility] [address] [place] [address] Dr. Oneal Vieyra Urea nitrogen [Mass/Vol] 15.0 mg/dL Normal 7.0-18.0 [facility] Comment on above: Performed By: #### L IPID, TSH, CMP #### [facility] [address] [place] [address] Dr. Oneal Vieyra Urea nitrogen/Creatinin e [Mass ratio] 17.0 mg/mg Normal [facility] Comment on above: Performed By: #### L IPID, TSH, CMP #### [facility] [address] [address] [address] Oneal Vieyra TSHon 06-17-2022 TSH 9.403 uIU/mL Critically high 0.358-3.740 [facility] Comment on above: Performed By: #### L IPID, TSH, CMP #### [facility] [address] [place] [address] Dr. Oneal Vieyra UA RANDOM W/MICROSCOPICon BACTERIA NONE SEEN Normal NONE SEEN [facility] Comment on above: Performed By: #### U AMIC #### [facility] [address] [address] [address] Oneal Vieyra Bilirubin Ql (U) Negative Normal NEGATIVE [facility] Comment on above: Performed By: #### U AMIC #### [facility] [address] [address] [address] Oneal Vieyra CAST NONE SEEN Normal NONE SEEN [facility] Comment on above: Performed By: #### U AMIC #### [facility] [address] [address] [address] Oneal Vieyra Clarity (U) CLEAR Normal CLEAR [facility] Comment on above: Performed By: #### U AMIC #### [facility] [address] [place] [address] Dr. Oneal Vieyra Color (U) LT. YELLOW Normal YELLOW [facility] Comment on above: Performed By: #### U AMIC #### [facility] [address] [place] [address] Dr. Oneal Vieyra Crystals LM Nom (Urine sed) NONE SEEN Normal NONE SEEN [facility] Comment on above: Performed By: #### U AMIC #### [facility] [address] [place] [address] Dr. Oneal Vieyra Epithelial cells LM Ql (Urine sed) FEW Abnormal NONE SEEN /RARE [facility] Comment on above: Performed By: #### U AMIC #### [facility] [address] [address] [address] Oneal Vieyra Glucose Ql (U) >1000 Abnormal NEGATIVE [facility] Comment on above: Performed By: #### U AMIC #### [facility] [address] [place] [address] Dr. Oneal Vieyra Hemoglobin Ql (U) SMALL Abnormal NEGATIVE [facility] Comment on above: Performed By: #### U AMIC #### [facility] [address] [place] [address] Dr. Oneal Vieyra Ketones Ql (U) Negative Normal NEGATIVE [facility] Comment on above: Performed By: #### U AMIC #### [facility] [address] [place] [address] Dr. Oneal Vieyra LEUKOCYTES Negative Normal NEGATIVE [facility] Comment on above: Performed By: #### U AMIC #### [facility] [address] [place] [address] Dr. Oneal Vieyra MUCOUS NONE SEEN Normal NONE SEEN [facility] Comment on above: Performed By: #### U AMIC #### [facility] [address] [place] [address] Dr. Oneal Vieyra Nitrite Ql (U) Negative Normal NEGATIVE [facility] Comment on above: Performed By: #### U AMIC #### [facility] [address] [place] [address] Dr. Oneal Vieyra pH (U) 6.0 [pH] Normal 5-9 [facility] Comment on above: Performed By: #### U AMIC #### [facility] [address] [place] [address] Dr. Oneal Vieyra RBC 0-2 Normal 0-2 [facility] Comment on above: Performed By: #### U AMIC #### [facility] [address] [place] [address] Dr. Oneal Vieyra SPEC GRAVITY <=1.005 Abnormal 1.005-<=1.0 25 [facility] Comment on above: Performed By: #### U AMIC #### [facility] [address] [place] [address] Dr. Oneal Vieyra UA PROTEIN Negative Normal NEGATIVE/ TRACE [facility] Comment on above: Performed By: #### U AMIC #### [facility] [address] [place] [address] Dr. Oneal Vieyra Urobilinogen Qn (U) 0.2 {Ashwini'U}/dL Normal 0.2 - 1.0 [facility] Comment on above: Performed By: #### U AMIC #### [facility] [address] [place] [address] Dr. Oneal Vieyra WBC NONE SEEN Normal NONE SEEN [facility] Comment on above: Performed By: #### U AMIC #### [facility] [address] [address] [address] Oneal Vieyra MICROALBUMIN, RAND URon - mALB <1.3 Normal <=30.0 [facility] Comment on above: Performed By: #### M ALBR #### [facility] [address] [address] [address] Oneal Vieyra UA RANDOM W/MICROSCOPICon BACTERIA NONE SEEN Normal NONE SEEN [facility] Comment on above: Performed By: #### U AMIC #### [facility] [address] [address] [address] Oneal Vieyra Bilirubin Ql (U) Negative Normal NEGATIVE [facility] Comment on above: Performed By: #### U AMIC #### [facility] [address] [place] [address] Dr. Oneal Vieyra CAST NONE SEEN Normal NONE SEEN [facility] Comment on above: Performed By: #### U AMIC #### [facility] [address] [address] [address] Oneal Vieyra Clarity (U) CLEAR Normal CLEAR [facility] Comment on above: Performed By: #### U AMIC #### [facility] [address] [address] [address] Oneal Vieyra Color (U) YELLOW Normal YELLOW [facility] Comment on above: Performed By: #### U AMIC #### [facility] [address] [address] [address] Oneal Vieyra Crystals LM Nom (Urine sed) NONE SEEN Normal NONE SEEN [facility] Comment on above: Performed By: #### U AMIC #### [facility] [address] [address] [address] Oneal Vieyra Epithelial cells LM Ql (Urine sed) FEW Abnormal NONE SEEN /RARE [facility] Comment on above: Performed By: #### U AMIC #### [facility] [address] [address] [address] Oneal Vieyra Glucose Ql (U) >1000 Abnormal NEGATIVE [facility] Comment on above: Performed By: #### U AMIC #### [facility] [address] [address] [address] Oneal Vieyra Hemoglobin Ql (U) SMALL Abnormal NEGATIVE [facility] Comment on above: Performed By: #### U AMIC #### [facility] [address] [address] [address] Oneal Vieyra Ketones Ql (U) Negative Normal NEGATIVE [facility] Comment on above: Performed By: #### U AMIC #### [facility] [address] [address] [address] Oneal Vieyra LEUKOCYTES Negative Normal NEGATIVE [facility] Comment on above: Performed By: #### U AMIC #### [facility] [address] [address] [address] Oneal Vieyra MUCOUS NONE SEEN Normal NONE SEEN [facility] Comment on above: Performed By: #### U AMIC #### [facility] [address] [address] [address] Oneal Vieyra Nitrite Ql (U) Negative Normal NEGATIVE [facility] Comment on above: Performed By: #### U AMIC #### [facility] [address] [address] [address] Oneal Vieyra pH (U) 5.5 [pH] Normal 5-9 [facility] Comment on above: Performed By: #### U AMIC #### [facility] [address] [address] [address] Oneal Vieyra RBC 0-2 Normal 0-2 [facility] Comment on above: Performed By: #### U AMIC #### [facility] [address] [address] [address] Oneal Vierya SPEC GRAVITY 1.020 Normal 1.005-<=1.0 25 [facility] Comment on above: Performed By: #### U AMIC #### [facility] [address] [address] [address] Oneal Vieyra UA PROTEIN Negative Normal NEGATIVE/ TRACE [facility] Comment on above: Performed By: #### U AMIC #### [facility] [address] [place], [place] [address] Dr. Oneal Vieyra Urobilinogen Qn (U) 0.2 {Ashwini'U}/dL Normal 0.2 - 1.0 [facility] Comment on above: Performed By: #### U AMIC #### [facility] [address] [place], [place] [address] Dr. Oneal Vieyra WBC NONE SEEN Normal NONE SEEN [facility] Comment on above: Performed By: #### U AMIC #### [facility] [address] [place], [place] [address] Dr. Oneal Vieyra Office Visit (Cardiology)on 10-16-2021 [...] for follow-up. She had inferior ST elevation [place] with primary revascularization of the RCA in [...] 16Oct2021 11:41AM Heart Rate65, L Brachial Artery Fdmaqsps109, LUE, Sitting Nyfckctuv35, LUE, Sitting Height5 ft 1 in Axemxa454 lb BMI Djnfxvqfni95.04 kg/m2 BSA Calculated1.71 Tobacco Usea) Yes Patient encouraged to stop using tobacco productsYes Fall Screeningc) Not medically indicated Physical Exam Constitutional: alert and in no acute distress. Neck: neck is supple, symmetric, trachea midline, no masses and no thyromegaly . (more content not included)... Normal [employer] Tobacco Screening.on 022 Fall risk assessment c) Not medically indicated MP-No rth [employer] 250 DO Work Phone: Tobacco use status CP a) Yes -[facility] [employer] 250 DO Work Phone: Tobacco Screening. Yes [facility] [employer] 250 DO Work Phone: Basic Metabolic Panelon 02-26 Calcium [Mass/Vol] 8.6 mg/dL Normal 8.2-10.2 [facility] Comment on above: Performed By: #### C K, BMP, SCAN CBC, PTT, BNP, PT, TROP #### [facility] [address] [place] [id number] [facility] Chloride [Moles/Vol] 105 mmol/L Normal 95-114 [facility] Comment on above: Performed By: #### C K, BMP, SCAN CBC, PTT, BNP, PT, TROP #### [facility] [address] CO2 [Moles/Vol] 21.2 mmol/L Low 22.0-30.0 [facility] Comment on above: Performed By: #### C K, BMP, SCAN CBC, PTT, BNP, PT, TROP #### [facility] [address] Creatinine [Mass/Vol] 1.26 mg/dL High 0.44-1.03 [facility] Comment on above: Performed By: #### C K, BMP, SCAN CBC, PTT, BNP, PT, TROP #### [address] Creatinine Clr Calc Pharmacy 43.69 [facility] Comment on above: Result Comment: PERF ORMED BY: [place] [address] PATHOLOGIST SOFTWARE SALES REPRESENTATIVE GIA SHAH M.D. Performed By: #### C K, BMP, SCAN CBC, PTT, BNP, PT, TROP #### [address] Estimated GFR ( [place] 53 [facility] Comment on above: Result Comment: GFR estimated reference range: According to KDOQI guidelines, <60 ml/min/1.73m2 is sufficient to diagnose a patient with chronic kidney disease. Performed By: #### C K, BMP, SCAN CBC, PTT, BNP, PT, TROP #### [address] Estimated GFR (Non- Am 44 [facility] Comment on above: Performed By: #### C K, BMP, SCAN CBC, PTT, BNP, PT, TROP #### [address] Glucose [Mass/Vol] 116 mg/dL High 70-100 [facility] Comment on above: Result Comment: [place] Glucose Reference Range is dependent on time and content of last meal. Glucose of more than 200 mg/dL in a nonstressed, ambulatory subject supports the diagnosis of Diabetes Mellitus. ADA recommended reference range Performed By: #### C K, BMP, SCAN CBC, PTT, BNP, PT, TROP #### [address] Potassium [Moles/Vol] 3.3 mmol/L Low 3.5-5.1 [facility] Comment on above: Performed By: #### C K, BMP, SCAN CBC, PTT, BNP, PT, TROP #### [address] Sodium [Moles/Vol] 139 mmol/L Normal 136-146 [facility] Comment on above: Performed By: #### C K, BMP, SCAN CBC, PTT, BNP, PT, TROP #### [address] Urea nitrogen [Mass/Vol] 20 mg/dL Normal 9-23 [facility] Comment on above: Performed By: #### C K, BMP, SCAN CBC, PTT, BNP, PT, TROP #### [address] Creatine Kinaseon 03-21-2021 CK [Catalytic activity/Vol] 87 U/L Normal 22-269 [facility] Comment on above: Performed By: #### C K, BMP, SCAN CBC, PTT, BNP, PT, TROP #### [address] Creatinine Kinase MBon 03-21 CK.MB [Mass/Vol] 1.6 ng/mL Normal 0.6-6.3 [facility] Comment on above: Performed By: #### C K, BMP, SCAN CBC, PTT, BNP, PT, TROP #### [address] CKMB Relative Index 1.8 % Normal 0.00-2.50 [facility] Comment on above: Performed By: #### C K, BMP, SCAN CBC, PTT, BNP, PT, TROP #### [address] ECG 12 lead ECGon 03-21-2021 ECG 12 lead ECG [facility] Main [place] [address] [place] [address] Electrocardiograph Report Signed Patient: Fausto Corrigan MR#: [id number] 0 : 1960 Acct:[id number] Age/Sex: 60 / F ADM Date: 03/19/21 Loc: Room: [address] [place] [address] Type: DIS IN Attending Dr: Kal Kellogg [...] compared with ECG of 20-MAR-2021 14:36, (Unconfirmed) DE interval has decreased Confirmed by CHRISTA BAEZA DO ([id number]) on 03/21/2021 4:10:41 PM Referred By: Electronically Signed By:CHRISTA BAEAZ DO Transcribed By: MUS Dictated By: Christa Baeza DO 03/21/21 0802 Signed By: 03/21/21 1610 Normal [facility] Scan and CBCon 03-21-2021 Basophils (Bld) [#/Vol] 0.1 10*3/uL Normal 0.0-0.2 [facility] Comment on above: Performed By: #### C K, BMP, SCAN CBC, PTT, BNP, PT, TROP #### [facility] [address] [place] [address] [place] Basophils/100 WBC (Bld) 0.5 % Normal . [facility] Comment on above: Performed By: #### C K, BMP, SCAN CBC, PTT, BNP, PT, TROP #### [facility] [address] [place] [address] [place] Eosinophils (Bld) [#/Vol] 0.3 10*3/uL Normal 0.0-0.45 [facility] Comment on above: Performed By: #### C K, BMP, SCAN CBC, PTT, BNP, PT, TROP #### [address] Eosinophils/100 WBC (Bld) 2.6 % Normal . [facility] Comment on above: Performed By: #### C K, BMP, SCAN CBC, PTT, BNP, PT, TROP #### [address] Erythrocyte distribution width (RBC) [Ratio] 13.3 % Normal 11.9-15.3 [facility] Comment on above: Performed By: #### C K, BMP, SCAN CBC, PTT, BNP, PT, TROP #### [address] Hematocrit (Bld) [Volume fraction] 39.1 % Normal 34.0-46.4 [facility] Comment on above: Performed By: #### C K, BMP, SCAN CBC, PTT, BNP, PT, TROP #### [address] Hemoglobin (Bld) [Mass/Vol] 13.2 g/dL Normal 11.8-15.4 [facility] Comment on above: Performed By: #### C K, BMP, SCAN CBC, PTT, BNP, PT, TROP #### [address] Lymphocytes (Bld) [#/Vol] 4.6 10*3/uL Normal 1.00-4.8 [facility] Comment on above: Performed By: #### C K, BMP, SCAN CBC, PTT, BNP, PT, TROP #### [address] Lymphocytes/100 WBC (Bld) 37.3 % Normal . [facility] Comment on above: Performed By: #### C K, BMP, SCAN CBC, PTT, BNP, PT, TROP #### [address] MCH (RBC) [Entitic mass] 31.1 pg Normal 24.7-34.3 [facility] Comment on above: Performed By: #### C K, BMP, SCAN CBC, PTT, BNP, PT, TROP #### [address] MCV (RBC) [Entitic vol] 92.2 fL Normal 80-100 [facility] Comment on above: Performed By: #### C K, BMP, SCAN CBC, PTT, BNP, PT, TROP #### [address] Mean Corpuscular HGB Conc 33.8 g/dL Normal 32.0-35.0 [facility] Comment on above: Performed By: #### C K, BMP, SCAN CBC, PTT, BNP, PT, TROP #### [address] Monocytes (Bld) [#/Vol] 1.0 10*3/uL High 0.0-0.8 [facility] Comment on above: Performed By: #### C K, BMP, SCAN CBC, PTT, BNP, PT, TROP #### [address] Monocytes/100 WBC (Bld) 8.0 % Normal . [facility] Comment on above: Performed By: #### C K, BMP, SCAN CBC, PTT, BNP, PT, TROP #### [address] Neutrophils (Bld) [#/Vol] 6.4 10*3/uL Normal 1.8-7.7 [facility] Comment on above: Performed By: #### C K, BMP, SCAN CBC, PTT, BNP, PT, TROP #### [address] Neutrophils/100 WBC (Bld) 51.6 % Normal . [facility] Comment on above: Performed By: #### C K, BMP, SCAN CBC, PTT, BNP, PT, TROP #### [place] [address] [place] Nucleated RBC/100 WBC (Bld) [Ratio] 0.2 % Normal 0-0.5 [facility] Comment on above: Performed By: #### C K, BMP, SCAN CBC, PTT, BNP, PT, TROP #### [address] Platelet Estimate Normal Normal Normal [facility] Comment on above: Performed By: #### C K, BMP, SCAN CBC, PTT, BNP, PT, TROP #### [address] Platelet mean volume (Bld) [Entitic vol] 9.3 fL Normal 6.3-10.7 [facility] Comment on above: Performed By: #### C K, BMP, SCAN CBC, PTT, BNP, PT, TROP #### [address] Platelet Morphology Normal Normal Normal [facility] Comment on above: Result Comment: PERF ORMED BY: [place] [address] PATHOLOGIST SOFTWARE SALES REPRESENTATIVE GIA SHAH M.D. Performed By: #### C K, BMP, SCAN CBC, PTT, BNP, PT, TROP #### [address] Platelets (Bld) [#/Vol] 250 10*3/uL Normal 150-450 [facility] Comment on above: Performed By: #### C K, BMP, SCAN CBC, PTT, BNP, PT, TROP #### [address] RBC (Bld) [#/Vol] 4.24 10*6/uL Normal 3.60-5.00 [facility] Comment on above: Performed By: #### C K, BMP, SCAN CBC, PTT, BNP, PT, TROP #### [address] RBC morphology finding Nom (Bld) Normal Normal [facility] Comment on above: Performed By: #### C K, BMP, SCAN CBC, PTT, BNP, PT, TROP #### [facility] [address] WBC (Bld) [#/Vol] 12.3 10*3/uL High 4.5-11.0 [facility] Comment on above: Performed By: #### C K, BMP, SCAN CBC, PTT, BNP, PT, TROP #### [facility] [address] Troponin I(TnI)on 03-21-2021 Troponin I.cardiac [Mass/Vol] 3.93 ng/mL Off scale high 0-0.02 [facility] Comment on above: Result Comment: [place] Cut off value > or equal to 0.03 ng/mL in conjunction with clinical conditions of myocardial infarction. (www.escardio.org/guidelines) PERFORMED BY: [place] [address] PATHOLOGIST SOFTWARE SALES REPRESENTATIVE GIA SHAH M.D. Performed By: #### C K, BMP, SCAN CBC, PTT, BNP, PT, TROP #### [address] Troponin I.cardiac [Mass/Vol] 3.98 ng/mL Off scale high 0-0.02 [facility] Comment on above: Result Comment: [place] Cut off value > or equal to 0.03 ng/mL in conjunction with clinical conditions of myocardial infarction. (www.escardio.org/guidelines) PERFORMED BY: [place] [address] PATHOLOGIST SOFTWARE SALES REPRESENTATIVE GIA SHAH M.D. Performed By: #### C K, BMP, SCAN CBC, PTT, BNP, PT, TROP #### [facility] [address] Basic Metabolic Panelon 02-26 Calcium [Mass/Vol] 9.1 mg/dL Normal 8.2-10.2 [facility] Comment on above: Performed By: #### C K, BMP, SCAN CBC, PTT, BNP, PT, TROP #### [address] Chloride [Moles/Vol] 102 mmol/L Normal 95-114 [facility] Comment on above: Performed By: #### C K, BMP, SCAN CBC, PTT, BNP, PT, TROP #### [facility] [address] CO2 [Moles/Vol] 23.3 mmol/L Normal 22.0-30.0 [facility] Comment on above: Performed By: #### C K, BMP, SCAN CBC, PTT, BNP, PT, TROP #### [facility] [address] Creatinine [Mass/Vol] 1.15 mg/dL High 0.44-1.03 [facility] Comment on above: Performed By: #### C K, BMP, SCAN CBC, PTT, BNP, PT, TROP #### [address] Creatinine Clr Calc Pharmacy 47.09 [facility] Comment on above: Performed By: #### C K, BMP, SCAN CBC, PTT, BNP, PT, TROP #### [address] Estimated GFR ( [place] 59 [facility] Comment on above: Result Comment: GFR estimated reference range: According to KDOQI guidelines, <60 ml/min/1.73m2 is sufficient to diagnose a patient with chronic kidney disease. Performed By: #### C K, BMP, SCAN CBC, PTT, BNP, PT, TROP #### [address] Estimated GFR (Non- Am 48 [facility] Comment on above: Performed By: #### C K, BMP, SCAN CBC, PTT, BNP, PT, TROP #### [address] Glucose [Mass/Vol] 161 mg/dL High 70-100 [facility] Comment on above: Result Comment: [place] om Glucose Reference Range is dependent on time and content of last meal. Glucose of more than 200 mg/dL in a nonstressed, ambulatory subject supports the diagnosis of Diabetes Mellitus. ADA recommended reference range Performed By: #### C K, BMP, SCAN CBC, PTT, BNP, PT, TROP #### [address] Potassium [Moles/Vol] 3.1 mmol/L Low 3.5-5.1 [facility] Comment on above: Performed By: #### C K, BMP, SCAN CBC, PTT, BNP, PT, TROP #### [address] Sodium [Moles/Vol] 136 mmol/L Normal 136-146 [facility] Comment on above: Performed By: #### C K, BMP, SCAN CBC, PTT, BNP, PT, TROP #### [address] Urea nitrogen [Mass/Vol] 26 mg/dL High 9-23 [facility] Comment on above: Performed By: #### C K, BMP, SCAN CBC, PTT, BNP, PT, TROP #### [address] Coagulation Profileon 2020 aPTT Coag (Bld) [Time] 37.6 s High 25.1-36.5 [facility] Comment on above: Result Comment: PERF ORMED BY: [place] [address] PATHOLOGIST SOFTWARE SALES REPRESENTATIVE GIA SHAH M.D. Performed By: #### C K, BMP, SCAN CBC, PTT, BNP, PT, TROP #### [address] INR Coag (PPP) [Relative time] 1.1 {INR} Normal [facility] Comment on above: Result Comment: INR [...] SCAN CBC, PTT, BNP, PT, TROP #### [address] PT Coag (PPP) [Time] 12.2 s Normal 9.0-12.9 [facility] Comment on above: Performed By: #### C K, BMP, SCAN CBC, PTT, BNP, PT, TROP #### [address] Creatine Kinaseon 03-20-2021 CK [Catalytic activity/Vol] 91 U/L Normal 22-269 [facility] Comment on above: Order Comment: NOTIF IED,[id number] Performed By: #### C K, BMP, SCAN CBC, PTT, BNP, PT, TROP #### [address] CK [Catalytic activity/Vol] 108 U/L Normal - [facility] Comment on above: Performed By: #### C K, BMP, SCAN CBC, PTT, BNP, PT, TROP #### [address] CK [Catalytic activity/Vol] 101 U/L Normal -[address] [place] [address] Comment on above: Performed By: #### C K, BMP, SCAN CBC, PTT, BNP, PT, TROP #### [place] [address] [place] Creatinine Kinase MBon 03-20 CK.MB [Mass/Vol] 1.9 ng/mL Normal 0.6-6.3 [facility] Comment on above: Order Comment: NOTIF IED,[id number] Performed By: #### C K, BMP, SCAN CBC, PTT, BNP, PT, TROP #### [place] [address] [place] CKMB Relative Index 2.0 % Normal 0.00-2.50 [facility] Comment on above: Order Comment: NOTIF IED,[id number] Performed By: #### C K, BMP, SCAN CBC, PTT, BNP, PT, TROP #### [address] [address] [place] CK.MB [Mass/Vol] 2.5 ng/mL Normal 0.6-6.3 [facility] Comment on above: Performed By: #### C K, BMP, SCAN CBC, PTT, BNP, PT, TROP #### [facility] [address] CKMB Relative Index 2.3 % Normal 0.00-2.50 [facility] Comment on above: Performed By: #### C K, BMP, SCAN CBC, PTT, BNP, PT, TROP #### [facility] [address] CK.MB [Mass/Vol] 3.1 ng/mL Normal 0.6-6.3 [facility] Comment on above: Performed By: #### C K, BMP, SCAN CBC, PTT, BNP, PT, TROP #### [facility] [address] CKMB Relative Index 3.0 % High 0.00-2.50 [facility] Comment on above: Performed By: #### C K, BMP, SCAN CBC, PTT, BNP, PT, TROP #### [address] ECG 12 lead ECGon 03-20-2021 ECG 12 lead ECG [facility] Main [place] [address] [place] [address] Electrocardiograph Report Signed Patient: Fausto Corrigan MR#: [id number] 0 : 1960 Acct:[id number] Age/Sex: 60 / F ADM Date: 03/19/21 Loc: Room: [address] [place] [address] Type: DIS IN Attending Dr: Kal Kellogg [...] Signed By: 03/22/21 1705 Normal [facility] Magnesiumon 03-20-2021 Magnesium [Mass/Vol] 2.0 mg/dL Normal 1.6-2.6 [facility] Comment on above: Result Comment: PERF ORMED BY: [place] [address] PATHOLOGIST SOFTWARE SALES REPRESENTATIVE GIA SHAH M.D. Performed By: #### C K, BMP, SCAN CBC, PTT, BNP, PT, TROP #### [address] Partial Thromboplastin Timeo n 03-20-2021 aPTT Coag (Bld) [Time] 44.7 s High 25.1-36.5 [facility] Comment on above: Order Comment: List the anticoagulant: HEPARIN, UNFRACTIONATED Result Comment: PERF ORMED BY: [place] [address] PATHOLOGIST SOFTWARE SALES REPRESENTATIVE GIA SHAH M.D. Performed By: #### C K, BMP, SCAN CBC, PTT, BNP, PT, TROP #### [address] Scan and CBCon 03-20-2021 Basophils (Bld) [#/Vol] 0.1 10*3/uL Normal 0.0-0.2 [facility] Comment on above: Performed By: #### C K, BMP, SCAN CBC, PTT, BNP, PT, TROP #### [address] Basophils/100 WBC (Bld) 0.6 % Normal . [facility] Comment on above: Performed By: #### C K, BMP, SCAN CBC, PTT, BNP, PT, TROP #### [place] [address] [place] Eosinophils (Bld) [#/Vol] 0.3 10*3/uL Normal 0.0-0.45 [facility] Comment on above: Performed By: #### C K, BMP, SCAN CBC, PTT, BNP, PT, TROP #### [place] [address] [place] Eosinophils/100 WBC (Bld) 1.8 % Normal . [facility] Comment on above: Performed By: #### C K, BMP, SCAN CBC, PTT, BNP, PT, TROP #### [address] Erythrocyte distribution width (RBC) [Ratio] 13.2 % Normal 11.9-15.3 [facility] Comment on above: Performed By: #### C K, BMP, SCAN CBC, PTT, BNP, PT, TROP #### [address] Hematocrit (Bld) [Volume fraction] 42.5 % Normal 34.0-46.4 [facility] Comment on above: Performed By: #### C K, BMP, SCAN CBC, PTT, BNP, PT, TROP #### [address] Hemoglobin (Bld) [Mass/Vol] 14.5 g/dL Normal 11.8-15.4 [facility] Comment on above: Performed By: #### C K, BMP, SCAN CBC, PTT, BNP, PT, TROP #### [address] Lymphocytes (Bld) [#/Vol] 5.2 10*3/uL High 1.00-4.8 [facility] Comment on above: Performed By: #### C K, BMP, SCAN CBC, PTT, BNP, PT, TROP #### [address] Lymphocytes/100 WBC (Bld) 31.5 % Normal . [facility] Comment on above: Performed By: #### C K, BMP, SCAN CBC, PTT, BNP, PT, TROP #### [address] MCH (RBC) [Entitic mass] 31.1 pg Normal 24.7-34.3 [facility] Comment on above: Performed By: #### C K, BMP, SCAN CBC, PTT, BNP, PT, TROP #### [address] MCV (RBC) [Entitic vol] 90.8 fL Normal 80-100 [facility] Comment on above: Performed By: #### C K, BMP, SCAN CBC, PTT, BNP, PT, TROP #### [address] Mean Corpuscular HGB Conc 34.2 g/dL Normal 32.0-35.0 [facility] Comment on above: Performed By: #### C K, BMP, SCAN CBC, PTT, BNP, PT, TROP #### [address] Monocytes (Bld) [#/Vol] 1.1 10*3/uL High 0.0-0.8 [facility] Comment on above: Performed By: #### C K, BMP, SCAN CBC, PTT, BNP, PT, TROP #### [address] Monocytes/100 WBC (Bld) 6.7 % Normal . [facility] Comment on above: Performed By: #### C K, BMP, SCAN CBC, PTT, BNP, PT, TROP #### [address] Neutrophils (Bld) [#/Vol] 9.8 10*3/uL High 1.8-7.7 [facility] Comment on above: Performed By: #### C K, BMP, SCAN CBC, PTT, BNP, PT, TROP #### [address] Neutrophils/100 WBC (Bld) 59.4 % Normal . [facility] Comment on above: Performed By: #### C K, BMP, SCAN CBC, PTT, BNP, PT, TROP #### [address] Nucleated RBC/100 WBC (Bld) [Ratio] 0.2 % Normal 0-0.5 [facility] Comment on above: Performed By: #### C K, BMP, SCAN CBC, PTT, BNP, PT, TROP #### [address] Platelet Estimate Normal Normal Normal [facility] Comment on above: Performed By: #### C K, BMP, SCAN CBC, PTT, BNP, PT, TROP #### [address] Platelet mean volume (Bld) [Entitic vol] 9.4 fL Normal 6.3-10.7 [facility] Comment on above: Performed By: #### C K, BMP, SCAN CBC, PTT, BNP, PT, TROP #### [address] Platelet Morphology Normal Normal Normal [facility] Comment on above: Result Comment: PERF ORMED BY: [place] [address] PATHOLOGIST SOFTWARE SALES REPRESENTATIVE GIA SHAH M.D. Performed By: #### C K, BMP, SCAN CBC, PTT, BNP, PT, TROP #### [address] Platelets (Bld) [#/Vol] 305 10*3/uL Normal 150-450 [facility] Comment on above: Performed By: #### C K, BMP, SCAN CBC, PTT, BNP, PT, TROP #### [place] [address] [place] RBC (Bld) [#/Vol] 4.68 10*6/uL Normal 3.60-5.00 [facility] Comment on above: Performed By: #### C K, BMP, SCAN CBC, PTT, BNP, PT, TROP #### [address] [place] [address] [place] RBC morphology finding Nom (Bld) Normal Normal [facility] Comment on above: Performed By: #### C K, BMP, SCAN CBC, PTT, BNP, PT, TROP #### [facility] [address] [place] [address] [place] WBC (Bld) [#/Vol] 16.5 10*3/uL High 4.5-11.0 [facility] Comment on above: Performed By: #### C K, BMP, SCAN CBC, PTT, BNP, PT, TROP #### [facility] [address] [place] [address] [place] Troponin I(TnI)on 03-20-2021 Troponin I.cardiac [Mass/Vol] 4.57 ng/mL Off scale high 0-0.02 [facility] Comment on above: Order Comment: NOTIF IED,[id number],[id number] Result Comment: [place] Cut off value > or equal to 0.03 ng/mL in conjunction with clinical conditions of myocardial infarction. (www.escardio.org/guidelines) PERFORMED BY: [place] [address] PATHOLOGIST SOFTWARE SALES REPRESENTATIVE GIA SHAH M.D. Performed By: #### C K, BMP, SCAN CBC, PTT, BNP, PT, TROP #### [facility] [address] [place] [address] [place] Troponin I.cardiac [Mass/Vol] 5.16 ng/mL Off scale high 0-0.02 [facility] Comment on above: Result Comment: [place] Cut off value > or equal to 0.03 ng/mL in conjunction with clinical conditions of myocardial infarction. (www.escardio.org/guidelines) PERFORMED BY: [place] [address] PATHOLOGIST SOFTWARE SALES REPRESENTATIVE GIA SHAH M.D. Performed By: #### C K, BMP, SCAN CBC, PTT, BNP, PT, TROP #### [facility] [address] [place] [address] [place] Troponin I.cardiac [Mass/Vol] 4.93 ng/mL Off scale high 0-0.02 [facility] Comment on above: Result Comment: [place] Cut off value > or equal to 0.03 ng/mL in conjunction with clinical conditions of myocardial infarction. (www.escardio.org/guidelines) PERFORMED BY: [place] [address] PATHOLOGIST SOFTWARE SALES REPRESENTATIVE GIA SHAH M.D. Performed By: #### C K, BMP, SCAN CBC, PTT, BNP, PT, TROP #### [address] XR chest 1V portableon 03-20 XR chest 1V portable [facility] Main [place] [address] [place] [address] XRay Report Signed Patient: Fausto Corrigan MR#: [id number] 0 : 1960 Acct:[id number] Age/Sex: 60 / F ADM Date: 03/19/21 Loc: Room: [address] [place] [address] Type: ADM IN Attending Dr: Kal Kellogg [...] Robel Roland M.D.03/20/2021 8:58 AM Dictation Location: [place] [address] Transcribed By: [facility] 03/20/21857 Dictated By: Robel Roland DO 03/20/2157 Signed By: 03/20/2158 Normal [facility] B-Type Natriuretic Peptideon 03-19-2021 Natriuretic peptide B (Bld) [Mass/Vol] 117.0 pg/mL High 5-100 [facility] Comment on above: Result Comment: PERF ORMED BY: [place] [address] PATHOLOGIST SOFTWARE SALES REPRESENTATIVE GIA SHAH M.D. Performed By: #### C K, BMP, SCAN CBC, PTT, BNP, PT, TROP #### [address] Basic Metabolic Panelon 06 Calcium [Mass/Vol] 9.9 mg/dL Normal 8.2-10.2 [facility] Comment on above: Performed By: #### C K, BMP, SCAN CBC, PTT, BNP, PT, TROP #### [address] Chloride [Moles/Vol] 95 mmol/L Normal 95-114 [facility] Comment on above: Performed By: #### C K, BMP, SCAN CBC, PTT, BNP, PT, TROP #### [address] CO2 [Moles/Vol] 28.2 mmol/L Normal 22.0-30.0 [facility] Comment on above: Performed By: #### C K, BMP, SCAN CBC, PTT, BNP, PT, TROP #### [address] Creatinine [Mass/Vol] 1.41 mg/dL High 0.44-1.03 [facility] Comment on above: Performed By: #### C K, BMP, SCAN CBC, PTT, BNP, PT, TROP #### [address] Creatinine Clr Calc Pharmacy 38.52 [facility] Comment on above: Result Comment: PERF ORMED BY: [place] [address] PATHOLOGIST SOFTWARE SALES REPRESENTATIVE GIA SHAH M.D. Performed By: #### C K, BMP, SCAN CBC, PTT, BNP, PT, TROP #### [address] Estimated GFR ( [place] 46 Normal [facility] Comment on above: Result Comment: GFR estimated reference range: According to KDOQI guidelines, <60 ml/min/1.73m2 is sufficient to diagnose a patient with chronic kidney disease. Performed By: #### C K, BMP, SCAN CBC, PTT, BNP, PT, TROP #### [facility] [address] Estimated GFR (Non- Am 38 Normal [facility] Comment on above: Performed By: #### C K, BMP, SCAN CBC, PTT, BNP, PT, TROP #### [facility] [address] Glucose [Mass/Vol] 143 mg/dL High 70-100 [facility] Comment on above: Result Comment: [place] Glucose Reference Range is dependent on time and content of last meal. Glucose of more than 200 mg/dL in a nonstressed, ambulatory subject supports the diagnosis of Diabetes Mellitus. ADA recommended reference range Performed By: #### C K, BMP, SCAN CBC, PTT, BNP, PT, TROP #### [facility] [address] Potassium [Moles/Vol] 3.4 mmol/L Low 3.5-5.1 [facility] Comment on above: Performed By: #### C K, BMP, SCAN CBC, PTT, BNP, PT, TROP #### [facility] [address] [place] [id number] [facility] Sodium [Moles/Vol] 139 mmol/L Normal 136-146 [facility] Comment on above: Performed By: #### C K, BMP, SCAN CBC, PTT, BNP, PT, TROP #### [facility] [address] [place] [id number] [facility] Urea nitrogen [Mass/Vol] 28 mg/dL High 9-23 [facility] Comment on above: Performed By: #### C K, BMP, SCAN CBC, PTT, BNP, PT, TROP #### [facility] [address] COVID-19 Antigenon 1 COVID-19 [facility] [...] its performance Kristan Disclaimer characteristic determined by [employer] and Kristan Disclaimer validated at [facility]. This Kristan Disclaimer test has not [...] is terminated or revoked sooner. PERFORMED BY: [place] [address] PATHOLOGIST SOFTWARE SALES REPRESENTATIVE GIA SHAH M.D. Normal [facility] Comment on above: Performed By: #### C OVID 19 [facility], SOFIANEG, COVID-19 KRISTAN #### [address] COVID-19 [facility] 03-19-2021 SARS-CoV-2 (COVID-19) RNA SHERRIE+probe Ql (Unsp spec) Negative Normal Negative [facility] Comment on above: Order Comment: Healt hcare Worker?: N Result Comment: Testing for SARS-CoV-2 by RT-PCR This test was developed and its performance characteristics determined by [employer], [employer] ([employer]) and validated at the [facility]. This test has not been FDA [...] is terminated or revoked sooner. PERFORMED BY: [place] [address] PATHOLOGIST SOFTWARE SALES REPRESENTATIVE GIA SHAH M.D. Performed By: #### C OVID 19 [facility], SOFIANEG, COVID-19 KRISTAN #### [facility] [address] [place] [address] Creatine Kinaseon 03-19-2021 CK [Catalytic activity/Vol] 123 U/L Normal 22-269 [facility] Comment on above: Performed By: #### C K, BMP, SCAN CBC, PTT, BNP, PT, TROP #### [facility] [address] [place] [address] ECG 12 lead ECGon 03-19-2021 ECG 12 lead ECG [facility] Main [place] [address] [place] [address] Electrocardiograph Report Signed Patient: Fausto Corrigan MR#: [id number] 0 : 1960 Acct:[id number] Age/Sex: 60 / F ADM Date: 03/19/21 Loc: Room: [address] [place] [address] Type: ADM IN Attending Dr: Kal Kellogg [...] rhythm Inferior infarct , possibly acute ACUTE TN / STEMI Consider right ventricular involvement in acute inferior infarct Abnormal ECG When compared with ECG of 19-MAR-2021 20:15, (Unconfirmed) No significant change was found Confirmed by LAYNE SIMON DO ([id number]) on 03/20/2021 2:13:27 AM Referred By: Electronically Signed By:LAYNE ISMON DO Transcribed By: LAURA Dictated By: Layne Simon DO 03/19/212021 Signed By: 03/20/213 [facility] ECG 12 lead ECG [facility] Main [place] [address] [place] [address] Electrocardiograph Report Signed Patient: Fausto Corrigan MR#: [id number] 0 : 1960 Acct:[id number] Age/Sex: 60 / F ADM Date: 03/19/21 Loc: Room: [address] [place] [address] Type: ADM IN Attending Dr: Kal Kellogg [...] consider inferior injury or acute infarct ACUTE TN / STEMI Consider right ventricular involvement in acute inferior infarct Abnormal ECG No previous ECGs available Confirmed by LAYNE SIMON DO ([id number]) on 03/20/2021 2:13:27 AM Referred By: Electronically Signed By:LAYNE SIMON DO Transcribed By: LAURA Dictated By: Layne Simon DO 03/19/212014 Signed By: 03/20/213 [facility] Partial Thromboplastin Timeo n 03-19-2021 aPTT Coag (Bld) [Time] 29.7 s Normal 25.1-36.5 [facility] Comment on above: Result Comment: PERF ORMED BY: [place] [address] PATHOLOGIST SOFTWARE SALES REPRESENTATIVE GIA SHAH M.D. Performed By: #### C K, BMP, SCAN CBC, PTT, BNP, PT, TROP #### [address] Prothrombin Time INRon 03-19 INR Coag (PPP) [Relative time] 1.1 {INR} Normal [facility] Comment on above: Result Comment: INR [...] SCAN CBC, PTT, BNP, PT, TROP #### [address] PT Coag (PPP) [Time] 12.2 s Normal 9.0-12.9 [facility] Comment on above: Performed By: #### C K, BMP, SCAN CBC, PTT, BNP, PT, TROP #### [address] Scan and CBCon 03-19-2021 Basophils (Bld) [#/Vol] 0.2 10*3/uL Normal 0.0-0.2 [facility] Comment on above: Performed By: #### C K, BMP, SCAN CBC, PTT, BNP, PT, TROP #### [address] Basophils/100 WBC (Bld) 0.9 % Normal . [facility] Comment on above: Performed By: #### C K, BMP, SCAN CBC, PTT, BNP, PT, TROP #### [address] Eosinophils (Bld) [#/Vol] 0.4 10*3/uL Normal 0.0-0.45 [facility] Comment on above: Performed By: #### C K, BMP, SCAN CBC, PTT, BNP, PT, TROP #### [address] Eosinophils/100 WBC (Bld) 2.1 % Normal . [facility] Comment on above: Performed By: #### C K, BMP, SCAN CBC, PTT, BNP, PT, TROP #### [address] Erythrocyte distribution width (RBC) [Ratio] 13.3 % Normal 11.9-15.3 [facility] Comment on above: Performed By: #### C K, BMP, SCAN CBC, PTT, BNP, PT, TROP #### [address] Hematocrit (Bld) [Volume fraction] 46.2 % Normal 34.0-46.4 [facility] Comment on above: Performed By: #### C K, BMP, SCAN CBC, PTT, BNP, PT, TROP #### [address] Hemoglobin (Bld) [Mass/Vol] 15.7 g/dL High 11.8-15.4 [facility] Comment on above: Performed By: #### C K, BMP, SCAN CBC, PTT, BNP, PT, TROP #### [address] Lymphocytes (Bld) [#/Vol] 5.0 10*3/uL High 1.00-4.8 [facility] Comment on above: Performed By: #### C K, BMP, SCAN CBC, PTT, BNP, PT, TROP #### [address] Lymphocytes/100 WBC (Bld) 27.2 % Normal . [facility] Comment on above: Performed By: #### C K, BMP, SCAN CBC, PTT, BNP, PT, TROP #### [address] MCH (RBC) [Entitic mass] 31.2 pg Normal 24.7-34.3 [facility] Comment on above: Performed By: #### C K, BMP, SCAN CBC, PTT, BNP, PT, TROP #### [address] MCV (RBC) [Entitic vol] 91.8 fL Normal 80-100 [facility] Comment on above: Performed By: #### C K, BMP, SCAN CBC, PTT, BNP, PT, TROP #### [address] Mean Corpuscular HGB Conc 34.0 g/dL Normal 32.0-35.0 [facility] Comment on above: Performed By: #### C K, BMP, SCAN CBC, PTT, BNP, PT, TROP #### [address] Monocytes (Bld) [#/Vol] 1.4 10*3/uL High 0.0-0.8 [facility] Comment on above: Performed By: #### C K, BMP, SCAN CBC, PTT, BNP, PT, TROP #### [address] Monocytes/100 WBC (Bld) 7.5 % Normal . [facility] Comment on above: Performed By: #### C K, BMP, SCAN CBC, PTT, BNP, PT, TROP #### [address] Neutrophils (Bld) [#/Vol] 11.5 10*3/uL High 1.8-7.7 [facility] Comment on above: Performed By: #### C K, BMP, SCAN CBC, PTT, BNP, PT, TROP #### [address] Neutrophils/100 WBC (Bld) 62.3 % Normal . [facility] Comment on above: Performed By: #### C K, BMP, SCAN CBC, PTT, BNP, PT, TROP #### [address] Nucleated RBC/100 WBC (Bld) [Ratio] 0.2 % Normal 0-0.5 [facility] Comment on above: Performed By: #### C K, BMP, SCAN CBC, PTT, BNP, PT, TROP #### [address] Platelet Estimate Normal Normal Normal [facility] Comment on above: Performed By: #### C K, BMP, SCAN CBC, PTT, BNP, PT, TROP #### [address] Platelet mean volume (Bld) [Entitic vol] 9.6 fL Normal 6.3-10.7 [facility] Comment on above: Performed By: #### C K, BMP, SCAN CBC, PTT, BNP, PT, TROP #### [address] Platelet Morphology Normal Normal Normal [facility] Comment on above: Result Comment: PERF ORMED BY: [place] [address] PATHOLOGIST SOFTWARE SALES REPRESENTATIVE GIA SHAH M.D. Performed By: #### C K, BMP, SCAN CBC, PTT, BNP, PT, TROP #### [address] Platelets (Bld) [#/Vol] 313 10*3/uL Normal 150-450 [facility] Comment on above: Performed By: #### C K, BMP, SCAN CBC, PTT, BNP, PT, TROP #### [address] RBC (Bld) [#/Vol] 5.03 10*6/uL High 3.60-5.00 [facility] Comment on above: Performed By: #### C K, BMP, SCAN CBC, PTT, BNP, PT, TROP #### [address] RBC morphology finding Nom (Bld) Normal Normal [facility] Comment on above: Performed By: #### C K, BMP, SCAN CBC, PTT, BNP, PT, TROP #### [address] WBC (Bld) [#/Vol] 18.4 10*3/uL High 4.5-11.0 [facility] Comment on above: Performed By: #### C K, BMP, SCAN CBC, PTT, BNP, PT, TROP #### [facility] [address] [place] [id number] [facility] Kristan Ag Negativeon 03-19-20 Kristan Ag Negative Negative Normal Negative [facility] Comment on above: Result Comment: This is a duplicate Kristan SARS Antigen ([place]) result to be used for statistical tracking purpose only. PERFORMED BY: [place] [address] PATHOLOGIST SOFTWARE SALES REPRESENTATIVE GIA SHAH M.D. Performed By: #### C OVID 19 [facility], SOFIANEG, COVID-19 KRISTAN #### [address] Troponin I(TnI)on 03-19-2021 Troponin I.cardiac [Mass/Vol] 4.25 ng/mL Off scale high 0-0.02 [facility] Comment on above: Result Comment: Crit ical value result called at 2209 on 03/19/21 [place] Cut off value > or equal to 0.03 ng/mL in conjunction with clinical conditions of myocardial infarction. (www.escardio.org/guidelines) PERFORMED BY: [place] [address] PATHOLOGIST SOFTWARE SALES REPRESENTATIVE GIA SHAH M.D. Performed By: #### C K, BMP, SCAN CBC, PTT, BNP, PT, TROP #### [place] [id number] [facility] CNOVon 03-17-2018 CNOV Office Visit (AGHWW1) ----FAUSTO CORRIGAN ([id number]) 1960 FDate Time Provider Department03/17/18 1:30 PM [...] Alcohol use: No Drug use: NoREVIEW OF Gigturn noteMSK: + as noted in HPI.Physical Examination:On [...] Protective sensation intact at all pedalsites via [place] Gabrielle 5.07 monofilament bilateral. Proprioception intactat the [...] andanticipated course of treatment.Rx for SAAFO from [facility] was given, patient to obtain and use to see if improvepain Follow up in 2 monthsYosi RIVERAM PGY2I personally saw and evaluated the patient. I reviewed the resident's note. 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]Order(s):XR FOOT GENERAL 3V AP/LAT/OBL RT [[id number]] Order #: [id number] CONSULT TO ORTHOTIC/PROSTHETIC [150201] Order #: [id number]: 1Prescriptions as of 03/17/2018 Sig: ALBUTEROL SULFATE [...] (around 05/17/2018).Follow-up and Disposition History RecordedEncounter Number: [id number] Status:Closed by THOMAS DELGADILLO DPM on 04/17/18 [facility] PROGRESSon 03-17-2018 Protein HNO ID: [id number] thor: Thomas DelgadilloSerjaymiee: (none)Author Type: PhysicianType: Progress NotesFiled: 04/17/2018 9:37 [...] Alcohol use: No Drug use: NoREVIEW OF Gigturn noteMSK: + as noted in HPI.Physical Examination:On General Observation: Patient is a pleasant, cooperative, well cwttiamrj89 year oldadult female. The patient is alert [...] Protective sensation intact at allpedal sites via [place] Gabrielle 5.07 monofilament bilateral.Proprioception intact at the [...] ifimprove pain Follow up in 2 monthsYosi RIVERAM PGY2I personally saw and evaluated the patient. I reviewed the resident'snote. I agree with the resident's assessment and plan unless otherwisenoted.Thomas Delgadillo DPM, FACFAS Normal [facility] CNPNon 09-01-2017 CNPN Telephone (PULGEETA) ----FAUSTO CORRIGAN ([id number]) 1960 [facility] Kuarlkjwob04/6/17 AIMEE HERNANDEZ During your visit today, we recorded the following information about you:Krista Perezeliel 09/01/2017 10:30 AM SignedPatient called to tell [...] - AnaphylaxisDate Reviewed: 07/26/2017Reviewed by: Sis Hogan [facility] - Fully AssessedReason for Visit: Insurance [...] Status:Closed by KRISTA LAGOS on 09/01/17 Normal [facility] CNCOon 08-18-2017 CNCO Letter TextNov2016[place] [address] [address]Ukdi Ms. Fausto Corrigan,It was a pleasure to see you in the Department of Pulmonary Medicine on07/26/2017.Attached please find a copy of your Visit Summary.I appreciate having the opportunity to see you. If I can be of furtherassistance to you, or if you have any questions regarding this report, pleasefeel free to contact my office.Sincerely,NATE Chaparro/alainaAttachment: Visit Summary Normal [facility] CBCon 07-26-2017 Erythrocyte distribution width Auto Ratio (RBC) 12.9 % Normal 11.5-15.0 [facility] Comment on above: Performed By: #### C BC, CMP ####[facility] [address] [place], [place] [phone] Erythrocytes (RBC) 10*6/uL Normal <0.01 [facility] Comment on above: Performed By: #### C BC, CMP ####[place] [address] [address] [place] [phone] Erythrocytes (RBC) 5.08 10*6/uL Normal 3.90-5.20 [facility] Comment on above: Performed By: #### C BC, CMP ####[place] [address] [address] [phone] Hematocrit (HCT) 47.7 % High 36.0-46.0 [facility] Comment on above: Performed By: #### C BC, CMP ####[place] [address] [address] [phone] Hemoglobin mass conc (Bld) 15.3 g/dL Normal 11.5-15.5 [facility] Comment on above: Performed By: #### C BC, CMP ####[place] [address] [address] [phone] MCH 30.1 pG Normal 26.0-34.0 [facility] Comment on above: Performed By: #### C BC, CMP ####[place] [address] [address] [phone] MCHC mass conc (RBC) 32.1 g/dL Normal 30.5-36.0 [facility] Comment on above: Performed By: #### C BC, CMP ####[place] [address] [address] [phone] MCV 93.9 fL Normal 80.0-100.0 [facility] Comment on above: Performed By: #### C BC, CMP ####[place] [address] [address] [phone] Platelet mean volume (PMV) 11.9 fL Normal 9.0-12.7 [facility] Comment on above: Performed By: #### C BC, CMP ####[facility] [address] [place], [place] [phone] Platelets 283 10*3/uL Normal 150-400 [facility] Comment on above: Performed By: #### C BC, CMP ####[facility] [place], [place] [phone] WBC (Leukocytes) 13.36 10*3/uL High 3.70-11.00 [facility] Comment on above: Performed By: #### C BC, CMP ####[facility] [address] [place], [place] [phone] CNOVon 07-26-2017 CNOV Office Visit (PSSCMN) ----FAUSTO CORRIGAN ([id number]) 1960 FDate Time Provider Mdcmxliyfx81/30/17 3:30 PM [facility] PSSCMN During your visit today, we recorded the following information about you: Pulse Blood pressure Weight Height 75/minute 120/69 73 kg 1.52 Shannan Sosa DO 07/26/2017 5:18 PM SignedANESTHESIA PRE-OPERATIVE ASSESSMENT (PACE)SERVICE DATE: 07/26/2017SERVICE TIME: 4:56 PMASSESSMENT ANDamp; PLAN:Fausto Corrigan is a 57 year old female scheduled for sigmoid colectomy w/ AUTOMOTIVE DIAGNOSTIC TECHNICIAN perSurgery Request Case in MAIN on 08/03/17.PMH:COPD [...] lb 15 oz) SpO2 96% BMI 31.6 kg/g1Ewred signs completed by: IMPACTWeight acquired: per HANDamp;P. [...] extubation.SIGNATURE: Geoffrey Sosa DO PATIENT NAME: Fausto AmayatesDATE: July 26, 2017 : 4:26 PM PAGER/CONTACT #:Referring Provider: ESEQUIEL THOMAS [[id number]]Allergies As of Date: 07/26/2017 Noted Allergy ReactionSULFA (SULFONAMIDE ANTIBIOTICS) 06/07/2017 4 - Hives 10 - AnaphylaxisDate Reviewed: 07/26/2017Reviewed by: Sis Kirkpatrick [facility] - Fully AssessedPrimary Visit Diagnosis:Pre-op evaluation [Z01.818]Prescriptions [...] Cosign Required by: James Vogel III[] Normal [facility] CNOV Office Visit (IMPAMN) ----FAUSTO CORRIGAN ([id number]) 1960 FDate Time Provider Qripvbadlq37/30/17 2:15 PM RIVERA PATRICIA) IMPAMN During your [...] or fevers.Neuro: No history of TIA's, stroke, [employer] tumor, impaired sensorium, hemiplegia,paraplegia or quadriplegia. No neurological symptoms or problems.Respiratory: COPD on nebulizersCardiovascular: No history of HTN requiring medication, no history of angina,CHF, TN, cardiac surgery or stents. Denies rest pain, gangrene orrevascularization/amputati on for PVD. No history of cardiovascular symptoms orproblems.GI: Peptic Ulcer Disease on ZantacGU: No history of UTI in past 6 weeks. No history of renal failure. Notcurrently on or requiring dialysis. No history of symptoms or problems.SECURITY COMPLIANCE SPECIALIST: No vaginal bleeding due to menopause and [...] Fausto CorriganDATE: July 25, 2017 : 1:49 PMEpaulina Kirkpatrick LPN 07/26/2017 4:05 PM SignedFausto Corrigan is a 57 year old female [facility]erring Surgeon: Dr. Fernandez of Surgery: 08/03/2017Planned Surgery/Procedure: Sigmoid Colectomy w/ CRAAllergies have been reviewed and verified. They include the following:Sulfa (Sulfonamide Antibiotics)Social HistorySubstance Use Topics- Smoking status: Former Smoker Years: 20.00 Types: Cigarettes Start date: 06/07/1997 Quit date: 06/26/2017- Smokeless tobacco: Never Used Comment: smokes 3-4 daily- Alcohol use NoMedications reviewed and updated: Armida Patricia MD 07/26/2017 4:05 PM Signed [facility] Instructions for SurgeryFOOD INSTRUCTIONS:NO solid food [...] visit please do nothesitate to contact the [facility] at [phone] or [phone], [phone].Signature: Rivera Patricia MDDate: July 26, 2017Referring Provider: ESEQUIEL THOMAS [[id number]]Allergies As of Date: 07/26/2017 Noted Allergy ReactionSULFA (SULFONAMIDE ANTIBIOTICS) 06/07/2017 4 - Hives 10 - AnaphylaxisDate Reviewed: 07/26/2017Reviewed by: Sis Kirkpatrick LPN - Fully AssessedPrimary Visit Diagnosis:Chronic obstructive pulmonary disease, unspecified COPD type ([facility]) [J44.9] Other Visit Diagnoses:Pre-operative examination [...] LPN 07/26/2017 3:41 PM >> SIS JOSUE WedJul 26, 2017 3:41 PM PREDNISONE 10 MG TABLET >> Sis Kirkpatrick LPN 07/26/2017 3:41 PM >> SIS JOSUE WedJul 26, 2017 3:41 PM ATENOLOL 50 MG-CHLORTHALIDONE 25 MG TABLET >> Sis Kirkpatrick LPN 07/26/2017 3:41 PM >> SIS JOSUE WedJul 26, 2017 3:41 PM OXYCODONE-ACETAMINOPHEN 5 MG-325 MG TABLET >> Sis Kirkpatrick LPN 07/26/2017 3:41 PM >> SIS JOSUE WedJul 26, 2017 3:41 PM DOCUSATE SODIUM 100 MG CAPSULE >> Sis Kirkpatrick LPN 07/26/2017 3:41 PM >> SSI JOSUE WedJul 26, 2017 3:41 PMProblem List As Of Date 07/26/2017 Noted Resolved 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 Other instructions from your clinician: [facility] Patient Instructions for Surgery FOOD INSTRUCTIONS: [...] please do not hesitate to contact the [facility] at [phone] or [phone], ext [phone]. Signature: Rivera Patricia MD Date: July 26, 2017Encounter Number: [id number] Status:Closed by RIVERA PATRICIA MD on 07/26/17 Normal [facility] CNOV Office Visit (ENDOMN) ----FAUSTO CORRIGAN ([id number]) 1960 [facility] Time Provider Lzrrtzcjcu77/30/17 1:20 PM IVAN HYDE) ENDOMN During your visit today, we recorded the following information about you: Weight 73 kgToshia Javed RN, RN 07/26/2017 2:21 PM SignedThank you for choosing the [facility] Department of Endocrinology,Diabetes and Metabolism. Being able [...] a lost opportunity for patients to receive [facility] care at the [facility].To Cancel an appointment, please choose one of the following: - Call the Appointment Call Center at [phone] - From [employer], Go to Appointments ? Cancel ApptsIf cancelling, consider your need to reschedule to prevent further delays inyour care.To Schedule an appointment, please choose one of the following: - Call the Appointment Call Center at [phone] - From [employer], Go to Appointments ? Request an AppSeth Hyde MD 07/27/2017 11:34 PM SignedDIABETES INITIAL CONSULTPATIENT NAME: Fausto CorriganMRN: [id number] DATE: 07/26/2017SERVICE TIME:REASON FOR CONSULT: DM Type 2REQUESTING PHYSICIAN:Ivan Hyde MD[address]LKPNTIMGE [place] [address]TYXHSQC CARE PHYSICIAN: Yamileth PcpSUBJECTIVEHISTORY OF PRESENT ILLNESS: Ms. Corrigan is [...] EXAM:Wt 73 kg (161 lb) BMI 31.61 kg/o0[place]: Well appearing, alert, in no acute distress, [...] 26, 2017TIME: 2:32 PMReferring Provider: IVAN HYDE) [[id number]]Allergies As of Date: 07/26/2017 Noted Allergy ReactionSULFA (SULFONAMIDE ANTIBIOTICS) 06/07/2017 4 - Hives 10 - AnaphylaxisDate Reviewed: 07/26/2017Reviewed by: Sis Kirkpatrick LPN - Fully AssessedReason for Visit: Diabetes [34]Primary Visit Diagnosis:Uncontrolled type 2 diabetes mellitus without complication, without long-term current use of insulin (HCC) [E11.65]Order(s):HB A1C B/O [[id number]] Order #: [id number] TSH BLD [SQTSH] Order #: [id number] FUTUREPrescriptions as of 07/26/2017 Sig: ALBUTEROL SULFATE [...] your clinician: Thank you for choosing the [facility] Department of Endocrinology, Diabetes and Metabolism. Being able to provide excellent health care has allowed us to be # 3 in the country according to [employer]. Did you know that you need to call 48 hours in advance of your scheduled visit, if you are unable to make your appointment? The Endocrinology and Metabolism [place] thanks you for your commitment, because patients not showing to their appointment results in a lost opportunity for patients to receive world class health care at the [facility]. To Cancel an appointment, please choose one of the following: - Call the Appointment Call Center at [phone] - From [employer], Go to Appointments ? Cancel Appts If cancelling, consider your need to reschedule to prevent further delays in your care. To Schedule an appointment, please choose one of the following: - Call the Appointment Call Center at [phone] - From [employer], Go to Appointments ? Request an ApptEncounter Number: [id number] Status:Closed by IVAN HYDE MD on 07/27/17 Normal [facility] CNOV Office Visit (PULMMN) ----FAUSTO CORRIGAN ([id number]) 1960 FDate Time Provider Ytexeuxahr60/30/17 9:50 AM AIMEE HERNANDEZ During your visit [...] record for internal providers or lettervia the [employer] for external providers.HISTORY OF PRESENT ILLNESSFausto [...] Alcohol use: No Drug use: NoPrivate home furnishings sales representative for elderly peopleGets sick a lot from themPreviously worked in [employer], making plastic parts, [employer] plasticwith some occupational exposure from thatOff an [...] and radiographsRadiology:PFT:SPI ROMETRY WITH DILATOR IF OBSTRUCTED ([id number]) - ordered on 07/26/17 [facility] [place] [address] [place] [address] Test Date: [id number] Name: FAUSTO CORRIGAN Department: Room:Gender: Female Manager Technical Sales: DIO VDOB: 1960 Requested By:Order Number: [id number] Reading MD: Interpretive StatementsTest no. 2 07/26/2017 12:14:11PM PRE/POST- ATS acceptability and repeatabilitystandards for spirometry met.Medications and Allergies were reviewed forpossibledrug interactions per policy MM-102. No contraindications or sensitivities werenoted. Respiratory meds taken in past 72H: Albuterol / 16 hours before testing. 4 puffs albuterol (360 mcg) delivered by MDI via valved holding chamber, HRpre=80/min, HRpost= 72/min. /JAQUAN//DIO nguyen??IMPRESSION: [facility] [place] Pulmonary Function Lab Pred KALEE MARTINEZ Pre % Post % % chgDate [id number] 689495Dwyc 11:44AM 12:10PM Height 152.4 152.4Weight 72.6 72.6 [...] 71 2.13 72 1 Cardia c:EKG - FILIBERTORASSRINATH AND Ab Shekhar is a 57 year [...] tolerated-Early ambulation and physical therapy as tolerated uoid-aehmsgwmwkg-Oykjhuts narcotics as much as possible-Bronchodilators as needed [...] from illnessAimee Hernandez MDPulmonary and Critical Care MedicineUnm Psychiatric Centeriratory InstituteTrinity Health System West CampusAimee Hernandez MD 07/26/2017 1:35 PM AddendumConsider lung cancer screening in the futureI would like to see you the day before your surgery to make sure you're feelingbetterPlease get the 6 minute walk test the same dayReferring Provider: ESEQUIEL THOMAS [[id number]]Allergies As of Date: 07/26/2017 Noted Allergy ReactionSULFA [...] wheezing.).Disp: 1 InhalerRfl: 5 SIX MINUTE WALK [[id number]] Order #: [id number] FUTUREPrescriptions as of 07/26/2017 Sig: ALBUTEROL SULFATE [...] (on 08/23/2017).Follow-up and Disposition History RecordedEncounter Number: [id number] Status:Closed by AIMEE HERNANDEZ MD on 07/26/17 Normal [facility] Comp Metabolic Panelon 07-26 Alanine aminotransferase (ALT) 19 U/L Normal 7-38 [facility] Comment on above: Performed By: #### C MAYANK, CMP ####[facility] [address] [place], [place] [phone] Albumin 4.3 g/dL Normal 3.9-4.9 [facility] Comment on above: Performed By: #### C MAYANK, CMP ####[facility] [address] [place], [place] [phone] Alkaline phosphatase (ALP) 96 U/L Normal 32-117 [facility] Comment on above: Performed By: #### C BC, CMP ####[place] [address] [phone] Anion gap 18 mmol/L Normal 9-18 [facility] Comment on above: Performed By: #### C BC, CMP ####[place] [address] [place] [phone] Aspartate aminotransferase (AST) 16 U/L Normal 13-35 [facility] Comment on above: Performed By: #### C BC, CMP ####[place] [phone] Bilirubin (total) 0.2 mg/dL Normal 0.2-1.3 [facility] Comment on above: Performed By: #### C BC, CMP ####[place] [phone] Calcium 9.8 mg/dL Normal 8.5-10.2 [facility] Comment on above: Performed By: #### C BC, CMP ####[place] [phone] Chloride 96 mmol/L Low 97-105 [facility] Comment on above: Performed By: #### C BC, CMP ####[place] [address] [place] [phone] CO2 25 mmol/L Normal 22-30 [facility] Comment on above: Performed By: #### C BC, CMP ####[place] [address] [address] [phone] Creatinine 0.98 mg/dL High 0.58-0.96 [facility] Comment on above: Performed By: #### C BC, CMP ####[place] [address] [place] [phone] eGFR (non-black) 59 . Normal [facility] Comment on above: Result Comment: eGFR [...] GFR. Performed By: #### C BC, CMP ####[place] [address] [place], [place] [phone] eGFR (non-black) mL/min/{1.73_m2} Normal [facility] Comment on above: Performed By: #### C BC, CMP ####[place] [address] [place], [place] [phone] Glucose mass conc 133 mg/dL High 74-99 [facility] Comment on above: Result Comment: The Indian Diabetes Association (ADA) provides guidance for cutoff [...] Standards of Medical Care in Diabetes 2016, Indian Diabetes Association. Diabetes Care. 2016.39(Suppl 1). Performed By: #### C BC, CMP ####[facility] [place], [place] [phone] Potassium molar conc 3.9 mmol/L Normal 3.7-5.1 [facility] Comment on above: Performed By: #### C BC, CMP ####[place] [address] [place], [place] [phone] Protein 7.5 g/dL Normal 6.3-8.0 [facility] Comment on above: Performed By: #### C BC, CMP ####[address] [phone] Sodium 139 mmol/L Normal 136-144 [facility] Comment on above: Performed By: #### C BC, CMP ####[facility] [place], [place] [phone] Urea nitrogen 20 mg/dL Normal 7-21 [facility] Comment on above: Performed By: #### C BC, CMP ####[address] [phone] Confirm Blood Typeon 017 ABO/RH(D) Positive Normal [facility] Comment on above: Performed By: #### C ONABO ####[facility] [place], [place] [phone] OBSOLETEon 07-26-2017 OBSOLETE Procedure (PULLMN) ----FAUSTO CORRIGAN ([id number]) 1960 FDate Time Provider Qohgoitvss79/30/17 9:00 AM PULM FCT LAB MAIN 6 ADDON PULLMN During your visit today, we recorded the following information about you:Referring Provider: ESEQUIEL THOMAS [[id number]]Allergies As of Date: 07/26/2017 Noted Allergy ReactionSULFA (SULFONAMIDE ANTIBIOTICS) 06/07/2017 4 - Hives 10 - AnaphylaxisDate Reviewed: 06/07/2017Reviewed by: Nicolle (Josr) JOSR Moncada - Fully AssessedReason for Visit: Spirometry [191]Primary Visit Diagnosis:Dyspnea, unspecified type [R06.00] Other Visit Diagnosis:Chronic obstructive pulmonary disease, unspecified COPD type (HCC) [J44.9]Order(s):SPIROMETRY WITH DILATOR IF OBSTRUCTED [[id number]] Order #: [id number]. #:[id number] ons as of 07/26/2017 Sig: OXYCODONE-ACETAMINOPHEN 5 [...] fistula [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 Status:Closed by CARMEL KENDALL on 07/26/17 Normal [facility] PROGRESSon 07-26-2017 PROGRESS HNO ID: [id number] thor: Geoffrey (Res) Sofiarvice: (none)Author Type: ResidentType: [...] lb 15 oz) SpO2 96% BMI 31.6 kg/c6Impdk signs completed by: IMPACTWeight acquired: per HANDP. [...] 26, 2017 : 4:26 PM PAGER/CONTACT #: [facility] PROGRESS HNO ID: [id number] thor: Sis PIERSONervice: (none)Author Type: (none)Type: Progress NotesFiled: 07/26/2017 4:05 PMNote Text:Fausto Corrigan is a 57 year old [facility]erring [facility]: Dr. Fernandez of Surgery: 08/03/2017Planned Surgery/Procedure: Sigmoid Colectomy w/ CRAAllergies have been reviewed and verified. They include the following:Sulfa (Sulfonamide Antibiotics)Social HistorySubstance Use Topics- Smoking status: Former Smoker Years: 20.00 Types: Cigarettes Start date: 06/07/1997 Quit date: 06/26/2017- Smokeless tobacco: Never Used Comment: smokes 3-4 daily- Alcohol use NoMedications reviewed and updated: Armida Kirkpatrick LPN [facility] PROGRESS HNO ID: [id number] thor: Ivan Sheffield) Dontrell: (none)Author Type: PhysicianType: Progress NotesFiled: 07/27/2017 11:34 PMNote Text:DIABETES INITIAL CONSULTPATIENT NAME: Fausto CorriganMRN: [id number] DATE: 07/26/2017SERVICE TIME:REASON FOR CONSULT: DM Type 2REQUESTING PHYSICIAN:Ivan Hyde MD[address]KN[place] [address]FNFXGBO CARE PHYSICIAN: No PcpSUBJECTIVEHISTORY OF PRESENT ILLNESS: [...] EXAM:Wt 73 kg (161 lb) BMI 31.61 kg/k0Yxhsvht: Well appearing, alert, in no acute distress, [...] years. She will start taking it again icfvgqamr224 mg twice a day. She has medication at home. Of importance is thattoday her fasting blood sugar was 1 33 mg/dL. We ordered a hemoglobin J5ehdmft has not been done. We will see her back in 6 weeks a repeathemoglobin A1c. Her blood sugars should improve once she is off steroids.SIGNATURE: Ivan Hyde, MDDATE: July 26, 2017TIME: 2:32 PM Normal [facility] PROGRESS HNO ID: [id number] thor: Cristina Vernon RtService: (none)Author Type: (none)Type: Progress NotesFiled: 07/26/2017 1:40 PMNote Text: Radiology Service Progress NotePATIENT NAME: Fausto CorriganMRN: [id number] OF SERVICE: July 26, 2017TIME: 1:40 PMPATIENT IDENTITY VERIFICATION COMPLETED USING TWO (2) METHODS: Patientconfirmed name verbally and Date of .PATIENT GENDER DATA: MalePATIENT RELEVANT IMPLANT DATA REVIEWED: Not ApplicableRADIOLOGY DEPARTMENT: General X-ray: Exam(s) Completed: Chest X-RayPERIPHERAL IV DATA: Not applicableSIGNED BY: Cristina Vernon RtOct2016 1:40 PM Normal [facility] PROGRESS HNO ID: [id number] thor: Aimee Gonzalez: (none)Author Type: PhysicianType: Progress NotesFiled: 07/26/2017 3:23 PMNote Text:Respiratory InstitutePulmonary ConsultationCC: Pre-operative evaluationConsultation requested by Dr. Thomas for a pre-operative pulmonaryevaluation. My final recommendations will be communicated to [facility] care provider by way of the shared medical record forinternal providers or letter via the [employer] Postal Service forexternal providers.HISTORY OF PRESENT ILLNESSFausto [...] Alcohol use: No Drug use: NoPrivate home furnishings sales representative for elderly peopleGets sick a lot from themPreviously worked in [employer], making plastic parts, [place] with some occupational [...] and radiographsRadiology:PFT:SPI ROMETRY WITH DILATOR IF OBSTRUCTED ([id number]) - ordered on 07/26/17 [facility] [address] [place] [address] Test Date: 7997-41-90Jja Name: FAUSTO CORRIGAN Department: Room:Gender: Female Manager Technical Sales: DIO VDOB: 1960 Requested By:Order Number: [id number] Reading MD: Interpretive StatementsTest no. 2 07/26/2017 12:14:11PM PRE/POST- ATS acceptability andrepeatabilitystandards for spirometry met.Medications and Allergies were reviewed forpossibledrug interactions per policy MM-102. No contraindications orsensitivities werenoted. Respiratory meds taken in past 72H: Albuterol / 16 hours beforetesting. 4 puffs albuterol (360 mcg) delivered by MDI via valved holding chamber, HRpre=80/min, HRpost= 72/min. /JAQUAN//DIO nguyen??IMPRESSION: [facility] Res[facility] [place] Pulmonary Function Lab Pred LLN ULN Pre % Post % %chgDate [id number] 220412Emug 11:44AM 12:10PM Height 152.4 152.4Weight 72.6 72.6 [...] 4.28 1.06 34 1.36 4429FIF 50 1.99 2.4228F81/75 2.34 1.25 3.42 0.67 29 0.84 3625FE%FIF 53.13 61.4119IAU5 1.95 2.05 5PEF 5.36 3.63 7.09 4.30 80 5.37 81230HAD 10.82 10.59-2FETPEF 0.08 0.04-56VBe%FV 4.39 3.07 -30VBEex [...] (Gurinder Respiratoray Failure Index. OLAF [place]. Nancie Dmak0780; 232: 242). THaving a respiratory infection within the past month increases the risk. Iagree with postponing surgery until Aug 24 to reduce her risk.RECOMMENDATIONS:In order to minimize the risk of complications and optimize pulmonarystatus, we recommend the following:-Encourage aggressive incentive spirometry hourly both ayse-operativelyand post-operatively as tolerated-Early ambulation and physical therapy as tolerated anox-ydquhekpdxk-Yxjispgh narcotics as much as possible-Bronchodilators as needed [...] illnessAmy Santana, MDPulmonary and Critical Care MedicineRespiratory InstituteTrinity Health System West Campus Normal [facility] Type and SCR (30D)on 017 ABO/RH(D) Positive Normal [facility] Comment on above: Performed By: #### T SCR30 ####[facility] [address] [place], [place] [phone] Antibody Screen Negative Normal [facility] Comment on above: Performed By: #### T SCR30 ####[facility] [address] [place], [place] [phone] XR CHEST 2V FRONTAL/LATon XR CHEST 2V [...] abdomen suggest prior cholecystectomy.IMPRESSION:N o acute radiographic abnormality.Color Paste Mixer : PSCB Transcribe Date/Time: Jul 26 2017 2:28PDictated by : FABY SWANSON MDThigrady examination was interpreted and the report reviewed and electronically signed by: CORNELIUS BEAR MD on Jul 26 2017 4:55PM [id number] Normal [facility] HISTORY PHYSICALon HISTORY PHYSICAL HNO ID: [id number] thor: Rivera Sheffield) Shahla: (none)Author Type: PhysicianType: HANDPFiled: 07/26/2017 8:42 PMNote [...] or fevers.Neuro: No history of TIA's, stroke, 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 No neurological symptoms orproblems.Respiratory: COPD on nebulizersCardiovascular: No history of HTN requiring medication, no history ofangina, CHF, TN, cardiac surgery or stents. Denies rest pain, gangrene orrevascularization/amputati on for PVD. No history of cardiovascularsymptoms or problems.GI: Peptic Ulcer Disease on ZantacGU: No history of UTI in past 6 weeks. No history of renal failure. Notcurrently on or requiring dialysis. No history of symptoms or problems.SECURITY COMPLIANCE SPECIALIST: No vaginal bleeding due to menopause and [...] : Rivera Patricia MD PATIENT NAME: Fausto ValenzuelaTE: July 25, 2017 : 1:49 PM Normal [facility] 06-08-2017 HOSP Patient Update (TOMAS) ----FAUSTO CORRIGAN ([id number]) 1960 [facility] Time Provider Department06/08/17 ESEQUIEL THOMAS During your visit today, we recorded the following information about you:Allergies As of Date: 06/08/2017 Noted Allergy ReactionSULFA (SULFONAMIDE ANTIBIOTICS) 06/07/2017 4 - Hives 10 - AnaphylaxisDate Reviewed: 06/07/2017Reviewed by: Nicolle Lamb) JOSR Moncada - Fully AssessedPrimary Visit Diagnosis: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]Order(s):SURGICAL REQUEST - ELECTIVE [3013436] Order #: [id number]: 1 PER WHAT TO EXPECT DURING YOUR HOSPITAL STAY [7288093] Order #: [id number]: 1 CBC [SQCBC] Order #: [id number] FUTURE COMP METABOLIC PANEL [SQCMP] Order #: [id number] FUTURE CONFIRM BLOOD TYPE [SQCONABO] Order #: [id number] FUTURE TYPE + SCREEN,30 DAY [XLIDTJ82] Order #: [id number] FUTURE ECG COMPLETE W INTERPRETATION [ECG01] Order #: [id number] FUTURE REFER FOR ADMIT INTERVIEW [0954640] Order #: [id number] HANDP FOR SURGERY [J2492VEZ] Order #: [id number] CONSULT TO PATIENT EDUCATION [19991031] Order #: [id number]: 1 CONSULT TO ANESTHESIOLOGY [9001] Order #: [id number]: 1 CONSULT TO INT MED-IMPACT [0712346] Order #: [id number]: 1 CONSULT TO PULMONARY MEDICINE [6364986] Order #: [id number]: 1 CONSULT TO ENDOCRINOLOGY [9006] Order #: [id number]: 1Prescriptions as of 06/08/2017 Sig: OXYCODONE-ACETAMINOPHEN 5 [...] FOR* More...Follow-up and Disposition History RecordedEncounter Number: [id number] Status:Closed by ESEQUIEL THOMAS MD, FACS on 06/09/17 [facility] CNOVon 06-07-2017 CNOV Office Visit (TOMAS) ----FAUSTO CORRIGAN ([id number]) 1960 FDate Time Provider Department06/07/17 1:20 PM ESEQUIEL THOMAS During your visit today, we recorded the following information about you: Temperature Pulse Blood pressure Weight 97.8 degrees 79/minute 119/76 73.5 kg Height 1.537 Geovany Thomas MD FACS 06/07/2017 3:44 PM SignedNew Patient ConsultREASON FOR Rafia Corrigan is a 56 year old female who is scheduled [facility] for Consult [...] pain during BMs.She does have COPD from mcc smoking, but says she only has 3-4 [...] RepositionGeneral: MalaiseNeuro: No history of TIA's, stroke, FARMWORKER GENERAL tumor, impaired sensorium, hemiplegia,paraplegia or quadraplegia. No neurological symptoms or problems.Respiratory: COPDCardiovascular: Hx HTNGI: Positive for GERD, PUD, Heartburn, Abdominal pain, Diverticulitis, Historyof polypsGU: No history of UTI in past 6 weeks. No history of renal failure. Notcurrently on or requiring dialysis. No history of symptoms or problems.SECURITY COMPLIANCE SPECIALIST: yellow/brown drainage from vagina x2 months : [...] FACSDATE: 06/07/17TIME: 2:32 PMReferring Provider: [facility] [[id number]]Allergies As of Date: 06/07/2017 Noted Allergy ReactionSULFA [...] ESEQUIEL THOMAS MD, FACS on 06/07/17 Normal [facility] HISTORY PHYSICALon HISTORY PHYSICAL HNO ID: [id number] thor: Esequiel Goodwin: (none)Author Type: PhysicianType: HANDPFiled: 06/07/2017 3:44 PMNote Text:New Patient ConsultREASON FOR Rafia Corrigan is a 56 year old female who is scheduled for a consult at [facility] for Consult [...] pain during BMs.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 No neurological symptoms orproblems.Respiratory: COPDCardiovascular: Hx HTNGI: Positive for GERD, PUD, Heartburn, Abdominal pain, Diverticulitis,History of polypsGU: No history of UTI in past 6 weeks. No history of renal failure. Notcurrently on or requiring dialysis. No history of symptoms or problems.SECURITY COMPLIANCE SPECIALIST: yellow/brown drainage from vagina x2 months : [...] Thomas MD FACSDATE: 06/07/17TIME: 2:32 PM Normal [facility] SR-CT ABD/PELVIS W CON IMPOR Ton 04-15-2017 SR-CT ABD/PELVIS W CON IMPORT Images were obtained outside of [facility] [id number] Normal [facility] Vital Signs Date Time Vital Sign Value Performing Clinician Facility 05-21-2025 15:19-0400 Diastolic blood pressure 80 mm[Hg] Veronique Harris BATCH OR CONTINUOUS STILL OPERATOR Work Phone: [facility] 05-21-2025 15:19-0400 Systolic blood pressure 142 mm[Hg] Veronique Harris BATCH OR CONTINUOUS STILL OPERATOR Work Phone: [facility] 05-21-2025 14:33-0400 Body mass index (BMI) [Ratio] 24.02 kg/m2 Veronique Harris BATCH OR CONTINUOUS STILL OPERATOR Work Phone: [facility] 05-21-2025 14:33-0400 Body temperature 97.3 [degF] Veronique Harris BATCH OR CONTINUOUS STILL OPERATOR Work Phone: [facility] 05-21-2025 14:33-0400 Body weight 58.6 kg Veronique Harris BATCH OR CONTINUOUS STILL OPERATOR Work Phone: [facility] 05-21-2025 14:33-0400 Heart rate 65 /min Veronique Steven BATCH OR CONTINUOUS STILL OPERATOR Work Phone: [facility] 05-21-2025 14:33-0400 Respiratory rate 20 /min Veronique Vicentedontezana BATCH OR CONTINUOUS STILL OPERATOR Work Phone: [facility] 05-21-2025 14:33-0400 SaO2% (BldA) [Mass fraction] 96 % Veronique Vicentedontezana BATCH OR CONTINUOUS STILL OPERATOR Work Phone: [facility] 05-21-2025 09:53-0400 Body height 156.2 cm Pantera Yao MD Work Phone: [facility] 05-21-2025 09:53-0400 Body mass index (BMI) [Ratio] 23.79 kg/m2 Pantera Yao MD Work Phone: [facility] 05-21-2025 09:53-0400 Body weight 58.06 kg Pantera Yao MD Work Phone: [facility] 05-21-2025 09:53-0400 Diastolic blood pressure 70 mm[Hg] Pantera Yao MD Work Phone: [facility] 05-21-2025 09:53-0400 Systolic blood pressure 120 mm[Hg] Pantera Yao MD Work Phone: [facility] 05-18-2025 10:19-0400 Body height 153.67 cm Dara Mills MD Work Phone: [facility] 05-18-2025 10:19-0400 Body mass index (BMI) [Ratio] 24.7 kg/m2 Dara Mills MD Work Phone: [facility] 05-18-2025 10:19-0400 Body weight 58.51 kg Dara Mills MD Work Phone: [facility] 04-05-2025 09:45-0400 Body mass index (BMI) [Ratio] 25.84 kg/m2 Veronique Santiagoz BATCH OR CONTINUOUS STILL OPERATOR Work Phone: [facility] 04-05-2025 09:45-0400 Body temperature 97.5 [degF] Veronique Santiagoz BATCH OR CONTINUOUS STILL OPERATOR Work Phone: [facility] 04-05-2025 09:45-0400 Body weight 63.05 kg Veronique Mosherholz BATCH OR CONTINUOUS STILL OPERATOR Work Phone: [facility] 04-05-2025 09:45-0400 Diastolic blood pressure 84 mm[Hg] Veronique Santiagoz BATCH OR CONTINUOUS STILL OPERATOR Work Phone: [facility] 04-05-2025 09:45-0400 Heart rate 67 /min Veronique Mosherholz BATCH OR CONTINUOUS STILL OPERATOR Work Phone: [facility] 04-05-2025 09:45-0400 Respiratory rate 18 /min Veronique Mosherholz BATCH OR CONTINUOUS STILL OPERATOR Work Phone: [facility] 04-05-2025 09:45-0400 SaO2% (BldA) [Mass fraction] 97 % Veronique Santiagoz BATCH OR CONTINUOUS STILL OPERATOR Work Phone: [facility] 04-05-2025 09:45-0400 Systolic blood pressure 160 mm[Hg] Veronique Mosherholz BATCH OR CONTINUOUS STILL OPERATOR Work Phone: [facility] 01-08-2025 13:36-0400 Body height 156.2 cm Bao Rusher DPM Work Phone: [facility] 01-08-2025 13:36-0400 Body mass index (BMI) [Ratio] 26.4 kg/m2 Bao Rusher DPM Work Phone: [facility] 01-08-2025 13:36-0400 Body weight 64.41 kg Bao Rusher DPM Work Phone: [facility] 01-04-2025 15:24-0400 Body height 156.2 cm Veronique Vicentehholz BATCH OR CONTINUOUS STILL OPERATOR Work Phone: [facility] 01-04-2025 15:24-0400 Body mass index (BMI) [Ratio] 26.4 kg/m2 Veronique Vicentehholz BATCH OR CONTINUOUS STILL OPERATOR Work Phone: [facility] 01-04-2025 15:24-0400 Body temperature 98.49 [degF] Veronique Aichholz BATCH OR CONTINUOUS STILL OPERATOR Work Phone: [facility] 01-04-2025 15:24-0400 Body weight 64.41 kg Veronique Aichholz BATCH OR CONTINUOUS STILL OPERATOR Work Phone: [facility] 01-04-2025 15:24-0400 Diastolic blood pressure 80 mm[Hg] Veronique Aichholz BATCH OR CONTINUOUS STILL OPERATOR Work Phone: [facility] 01-04-2025 15:24-0400 Heart rate 69 /min Veronique Aichholz BATCH OR CONTINUOUS STILL OPERATOR Work Phone: [facility] 01-04-2025 15:24-0400 Respiratory rate 18 /min Veronique Aichholz BATCH OR CONTINUOUS STILL OPERATOR Work Phone: [facility] 01-04-2025 15:24-0400 SaO2% (BldA) [Mass fraction] 93 % Veronique Vicentehholz BATCH OR CONTINUOUS STILL OPERATOR Work Phone: [facility] 01-04-2025 15:24-0400 Systolic blood pressure 160 mm[Hg] Veronique Vicentehholz BATCH OR CONTINUOUS STILL OPERATOR Work Phone: [facility] 11-06-2024 16:20-0500 Body mass index (BMI) [Ratio] 25.8 kg/m2 Veronique Aichholz BATCH OR CONTINUOUS STILL OPERATOR Work Phone: [facility] 11-06-2024 16:20-0500 Body temperature 98.8 [degF] Veronique Aichholz BATCH OR CONTINUOUS STILL OPERATOR Work Phone: [facility] 11-06-2024 16:20-0500 Body weight 62.96 kg Veronique Aichholz BATCH OR CONTINUOUS STILL OPERATOR Work Phone: [facility] 11-06-2024 16:20-0500 Diastolic blood pressure 80 mm[Hg] Veronique Aichholz BATCH OR CONTINUOUS STILL OPERATOR Work Phone: [facility] 11-06-2024 16:20-0500 Heart rate 58 /min Veronique Mosherzana BATCH OR CONTINUOUS STILL OPERATOR Work Phone: [facility] [facility] 11-06-2024 16:20-0500 Respiratory rate 18 /min Veronique Harris BATCH OR CONTINUOUS STILL OPERATOR Work Phone: [facility] 11-06-2024 16:20-0500 SaO2% (BldA) [Mass fraction] 94 % Veronique Mosherzana BATCH OR CONTINUOUS STILL OPERATOR Work Phone: [facility] 11-06-2024 16:20-0500 Systolic blood pressure 128 mm[Hg] Veronique Mosherzana BATCH OR CONTINUOUS STILL OPERATOR Work Phone: [facility] 09-18-2024 10:13-0500 Body height 156.2 cm Bao Rus DPM Work Phone: [facility] 09-18-2024 10:13-0500 Body mass index (BMI) [Ratio] 26.62 kg/m2 Bao Noble DPM Work Phone: [facility] 09-18-2024 10:13-0500 Body weight 64.95 kg Bao Rusher DPM Work Phone: [facility] 08-16-2024 17:03-0500 Diastolic blood pressure 82 mm[Hg] Veronique Zhangsaleem BATCH OR CONTINUOUS STILL OPERATOR Work Phone: [facility] 08-16-2024 17:03-0500 Systolic blood pressure 164 mm[Hg] Veronqiue Zhangsaleem BATCH OR CONTINUOUS STILL OPERATOR Work Phone: [facility] 08-16-2024 16:55-0500 Body height 156.2 cm Veronique Zhangmaria teresaz BATCH OR CONTINUOUS STILL OPERATOR Work Phone: [facility] 08-16-2024 16:55-0500 Body mass index (BMI) [Ratio] 26.62 kg/m2 Veronique Zhangmaria teresaz BATCH OR CONTINUOUS STILL OPERATOR Work Phone: [facility] 08-16-2024 16:55-0500 Body temperature 98.49 [degF] Veronique Steven BATCH OR CONTINUOUS STILL OPERATOR Work Phone: [facility] 08-16-2024 16:55-0500 Body weight 64.95 kg Veronique Vidhiholz BATCH OR CONTINUOUS STILL OPERATOR Work Phone: [facility] 08-16-2024 16:55-0500 Heart rate 64 /min Veronique Aichholz BATCH OR CONTINUOUS STILL OPERATOR Work Phone: [facility] 08-16-2024 16:55-0500 Respiratory rate 20 /min Veronique Aichholz BATCH OR CONTINUOUS STILL OPERATOR Work Phone: [facility] 08-16-2024 16:55-0500 SaO2% (BldA) [Mass fraction] 94 % Veronique Aichholz BATCH OR CONTINUOUS STILL OPERATOR Work Phone: [facility] 07-27-2024 09:36-0400 Body height 156.2 cm Veronique Vicentehholz BATCH OR CONTINUOUS STILL OPERATOR Work Phone: [facility] 07-27-2024 09:36-0400 Body mass index (BMI) [Ratio] 25.54 kg/m2 Veronique Vicentehholz BATCH OR CONTINUOUS STILL OPERATOR Work Phone: [facility] 07-27-2024 09:36-0400 Body temperature 98.8 [degF] Veronique Vicentehholz BATCH OR CONTINUOUS STILL OPERATOR Work Phone: [facility] 07-27-2024 09:36-0400 Body weight 62.32 kg Veronique Vidhiholz BATCH OR CONTINUOUS STILL OPERATOR Work Phone: [facility] 07-27-2024 09:36-0400 Diastolic blood pressure 86 mm[Hg] Veronique Vicentehholz BATCH OR CONTINUOUS STILL OPERATOR Work Phone: [facility] 07-27-2024 09:36-0400 Heart rate 70 /min Veronique Aichholz BATCH OR CONTINUOUS STILL OPERATOR Work Phone: [facility] 07-27-2024 09:36-0400 Respiratory rate 18 /min Veronique Aichholz BATCH OR CONTINUOUS STILL OPERATOR Work Phone: [facility] 07-27-2024 09:36-0400 SaO2% (BldA) [Mass fraction] 94 % Veronique Aichholz BATCH OR CONTINUOUS STILL OPERATOR Work Phone: [facility] 07-27-2024 09:36-0400 Systolic blood pressure 138 mm[Hg] Veronique Harris BATCH OR CONTINUOUS STILL OPERATOR Work Phone: [facility] 06-21-2024 10:57-0400 Body height 156.2 cm Veronique Santiagoz BATCH OR CONTINUOUS STILL OPERATOR Work Phone: [facility] 06-21-2024 10:57-0400 Body mass index (BMI) [Ratio] 25.62 kg/m2 Veronique Santiagoz BATCH OR CONTINUOUS STILL OPERATOR Work Phone: [facility] 06-21-2024 10:57-0400 Body temperature 97.81 [degF] Veronique Santiagoz BATCH OR CONTINUOUS STILL OPERATOR Work Phone: [facility] 06-21-2024 10:57-0400 Body weight 62.51 kg Veronique Santiagoz BATCH OR CONTINUOUS STILL OPERATOR Work Phone: [facility] 06-21-2024 10:57-0400 Diastolic blood pressure 82 mm[Hg] Veronique Harris BATCH OR CONTINUOUS STILL OPERATOR Work Phone: [facility] 06-21-2024 10:57-0400 Heart rate 64 /min Veronique Santiagoz BATCH OR CONTINUOUS STILL OPERATOR Work Phone: [facility] 06-21-2024 10:57-0400 Respiratory rate 18 /min Veroniqueswati Harris BATCH OR CONTINUOUS STILL OPERATOR Work Phone: [facility] 06-21-2024 10:57-0400 SaO2% (BldA) [Mass fraction] 97 % Veronique Harris BATCH OR CONTINUOUS STILL OPERATOR Work Phone: [facility] 06-21-2024 10:57-0400 Systolic blood pressure 160 mm[Hg] Veronique Santiagoz BATCH OR CONTINUOUS STILL OPERATOR Work Phone: [facility] 10-06-2022 13:45-0500 Body height 154.94 cm Veronique Randee Harris Work Phone: [facility] DO Work Phone: 10-06-2022 13:45-0500 Body mass index (BMI) [Ratio] 29.29 kg/m2 Veronique Mosherholz Work Phone: [facility] DO Work Phone: 10-06-2022 13:45-0500 Body surface area Derived from formula 1.7 m2 Veronique Zhanghholz Work Phone: [facility] DO Work Phone: 10-06-2022 13:45-0500 Body weight 70.31 kg Veronique Mosherholz Work Phone: [facility] DO Work Phone: 10-06-2022 13:45-0500 Diastolic blood pressure 80 mm[Hg] Veronique Mosherholz Work Phone: [facility] DO Work Phone: 10-06-2022 13:45-0500 Heart rate 72 /min Veronique Mosherholz Work Phone: [facility] DO Work Phone: 10-06-2022 13:45-0500 Systolic blood pressure 142 mm[Hg] Veronique Mosherholz Work Phone: [facility] DO Work Phone: 10-16-2021 11:41-0500 Body height 154.94 cm Dara Mills Work Phone: [facility] DO Work Phone: 10-16-2021 11:41-0500 Body mass index (BMI) [Ratio] 30.04 kg/m2 Dara Mills Work Phone: [facility] DO Work Phone: 10-16-2021 11:41-0500 Body surface area Derived from formula 1.71 m2 Dara Mills Work Phone: [facility] DO Work Phone: 10-16-2021 11:41-0500 Body weight 72.12 kg Daragerardo Mills Work Phone: [facility] DO Work Phone: 10-16-2021 11:41-0500 Diastolic blood pressure 82 mm[Hg] Dara Mills Work Phone: [facility] DO Work Phone: 10-16-2021 11:41-0500 Heart rate 65 /min Dara Mills Work Phone: [facility] 250 DO Work Phone: 10-16-2021 11:41-0500 Systolic blood pressure 136 mm[Hg] Dara Mills Work Phone: [facility] DO Work Phone: 04-08-2021 11:18-0400 [facility] Work Phone: 04-08-2021 11:18-0400 Body mass index (BMI) [Ratio] 30.66 kg/m2 [facility] Work Phone: 04-08-2021 11:18-0400 Body weight 71.22 kg [facility] Work Phone: 04-08-2021 11:18-0400 Diastolic blood pressure 82 mm[Hg] [facility] Work Phone: 04-08-2021 11:18-0400 Heart rate 64 /min [facility] Work Phone: 04-08-2021 11:18-0400 Respiratory rate 18 /min [facility] [employer] Work Phone: 04-08-2021 11:18-0400 SaO2% (BldA) [Mass fraction] 97 % [facility] Work Phone: 04-08-2021 11: Systolic blood pressure 144 mm[Hg] [facility] Work Phone: Encounters Encounter Date Encounter Type Care Provider Facility Start: 05-21-2025 End: 05-21-2025 ambulatory VERONIQUE HARRIS Not Available Start: 05-21-2025 End: 05-21-2025 Patient encounter procedure Veronique Harris BATCH OR CONTINUOUS STILL OPERATOR Work Phone: [facility] Comment on above: LIA (acute kidney in jury) (Primary Dx); Cigarette nicotine dependence with nicotine-induced disorder; Generalized abdominal pain; Hypoxia; Primary hypertension ; Nausea and vomiting, unspecified vomiting type; Gastroesophageal reflux disease without esophagitis; Type 2 diabetes mellitus with chronic kidney disease, without long-term current use of insulin, unspecified CKD stage (HCC); Hypokalemia Start: 05-21-2025 End: 05-21-2025 ambulatory PANTERA GARZON V Not Available Start: 05-21-2025 End: 05-21-2025 Office outpatient new 45 minutes Pantera Garzon MD Work Phone: [facility] Comment on above: Colovaginal fistula (Primary Dx); Generalized abdominal pain; Family history of Crohn's disease Start: 05-18-2025 End: 05-18-2025 ambulatory Dara Mills MD Work Phone: [facility] Work Phone: Start: 05-18-2025 End: 05-18-2025 Patient encounter procedure Mitra Ko DO [facility] Work Phone: Start: 05-16-2025 End: 05-16-2025 Orders Only Veronique Harris BATCH OR CONTINUOUS STILL OPERATOR Work Phone: [facility] Comment on above: Chronic obstructive pulmonary disease, unspecified COPD type (HCC) (Primary Dx); Hypoxia Start: 05-10-2025 End: 05-12-2025 Clinisync Result Encounter Generic External Data Provider [facility] External Department Unsolicited Start: 05-10-2025 End: 05-12-2025 Clinisync Result Encounter Generic External Data Provider [facility] External Department Unsolicited Start: 05-09-2025 End: 05-11-2025 Clinisync Result Encounter Generic External Data Provider [facility] External Department Unsolicited Start: 05-09-2025 End: 05-11-2025 Clinisync Result Encounter Generic External Data Provider [facility] External Department Unsolicited Start: 05-09-2025 End: 05-09-2025 ambulatory Catalanroshni Guzmánmini Facility:[facility] Start: 05-09-2025 End: 05-09-2025 Patient encounter procedure [facility] Start: 05-02-2025 End: 05-02-2025 Refill Veronique Harris BATCH OR CONTINUOUS STILL OPERATOR Work Phone: [facility] Comment on above: Gastroesophageal ref lux disease without esophagitis (Primary Dx); Nausea and vomiting, unspecified vomiting type Start: 04-30-2025 End: 05-01-2025 Refill Veronique Harris BATCH OR CONTINUOUS STILL OPERATOR Work Phone: [facility] Comment on above: Gastroesophageal ref lux disease without esophagitis (Primary Dx) Start: 04-11-2025 End: 04-12-2025 Telephone encounter Bao Noble DPM Work Phone: [facility] Comment on above: No Shows (Recent His tory of No Shows) Start: 04-05-2025 End: 04-05-2025 Bamboo flowsheet Veronique Harris BATCH OR CONTINUOUS STILL OPERATOR Work Phone: [facility] Start: 04-05-2025 End: 04-05-2025 Bamboo flowsheet Veronique Harris BATCH OR CONTINUOUS STILL OPERATOR Work Phone: [facility] Start: 04-05-2025 End: 04-05-2025 Clinisync Result Encounter Veronique Harris NP Work Phone: [facility] External Department Unsolicited Start: 04-05-2025 End: 04-05-2025 Refill Veronique Aichholz BATCH OR CONTINUOUS STILL OPERATOR Work Phone: [facility] Comment on above: Primary hypertension (Primary Dx); [...] End: 04-05-2025 Office outpatient visit 25 minutes Veronique Aichholz BATCH OR CONTINUOUS STILL OPERATOR Work Phone: [facility] Comment on above: Type 2 diabetes henrique itus with chronic kidney disease, without long-term current use of insulin, unspecified CKD stage (HCC) (Primary Dx); Primary hypertension ; Coronary artery disease involving [place] coronary artery of white [place] heart without angina pectoris ; Vaginal bleeding; Chronic kidney disease, stage 3a ([facility]-H[facility]); Controlled type 2 diabetes mellitus without complication, without long-term current use of insulin (HCC); Medical non-compliance; Breast cancer screening by mammogram; Cigarette nicotine dependence with nicotine-induced disorder; Other specified hypothyroidism Start: 04-04-2025 End: 04-04-2025 Refill Veronique Aichholz BATCH OR CONTINUOUS STILL OPERATOR Work Phone: [facility] Comment on above: Primary hypertension Start: 01-11-2025 End: 01-30-2025 Telephone encounter Rhiannon Abarca DO Work Phone: [facility] Start: 01-09-2025 End: 01-09-2025 Refill Veronique Aichholz BATCH OR CONTINUOUS STILL OPERATOR Work Phone: [facility] Comment on above: Chronic obstructive pulmonary disease, unspecified COPD type (CMS/HCC) (Primary Dx) Start: 01-08-2025 End: 01-08-2025 Office outpatient visit 15 minutes Bao RIVERAM Work Phone: [facility] Comment on above: Onychodystrophy ([facility] Dx); Onychomycosis; Diabetic polyneuropathy associated with type 2 diabetes mellitus ([facility]/HCC) Start: 01-08-2025 End: 01-08-2025 ambulatory BAO NOBLE Not Available Start: 01-04-2025 End: 01-04-2025 ambulatory VERONIQUE AICHHOLZ Not Available Start: 01-04-2025 End: 01-04-2025 Office outpatient visit 25 minutes Veronique Aichholz BATCH OR CONTINUOUS STILL OPERATOR Work Phone: [facility] Comment on above: Colovaginal fistula (Primary Dx); Cigarette nicotine dependence with nicotine-induced disorder; Type 2 diabetes mellitus with diabetic polyneuropathy, without long-term current use of insulin ([facility]); Primary hypertension ([facility]); Chronic kidney disease, stage 3a ([facility]) ([facility]); Type 2 diabetes mellitus with chronic kidney disease, without long-term current use of insulin, unspecified CKD stage ([facility]); Gastroesophageal reflux disease without esophagitis; Mixed hyperlipidemia ([facility]); Chronic obstructive pulmonary disease, unspecified COPD type ([facility]); Controlled type 2 diabetes mellitus without complication, without long-term current use of insulin; Other specified hypothyroidism; Seasonal allergic rhinitis due to pollen Start: 01-04-2025 End: 01-04-2025 Bamboo flowsheet Veronique Aichholz BATCH OR CONTINUOUS STILL OPERATOR Work Phone: [facility] Start: 01-04-2025 End: 01-04-2025 Bamboo flowsheet Veronique Aichholz BATCH OR CONTINUOUS STILL OPERATOR Work Phone: [facility] Start: 01-01-2025 End: 01-01-2025 Refill Veronique Aichholz BATCH OR CONTINUOUS STILL OPERATOR Work Phone: [facility] Comment on above: Primary hypertension ([facility]/HCC) Start: 12-14-2024 End: 12-14-2024 Refill Veronique Aichholz BATCH OR CONTINUOUS STILL OPERATOR Work Phone: [facility] Comment on above: Controlled type 2 di abetes mellitus without complication, without long-term current use of insulin ([facility]) (Primary Dx) Start: 11-30-2024 End: 11-30-2024 ambulatory VERONIQUE AICHHOLZ Not Available Start: 11-30-2024 End: 11-30-2024 Bamboo flowsheet Veronique Aichholz BATCH OR CONTINUOUS STILL OPERATOR Work Phone: [facility] Start: 11-30-2024 End: 11-30-2024 Bamboo flowsheet Veronique Aichholz BATCH OR CONTINUOUS STILL OPERATOR Work Phone: [facility] Start: 11-10-2024 End: 11-12-2024 Refill Veronique Aichholz BATCH OR CONTINUOUS STILL OPERATOR Work Phone: [facility] Comment on above: Controlled type 2 di abetes mellitus without complication, without long-term current use of insulin ([facility]); Other specified hypothyroidism ([facility]); Gastroesophageal reflux disease without esophagitis; Chronic obstructive pulmonary disease, unspecified COPD type ([facility]) Start: 11-07-2024 End: 11-07-2024 Refill Veronique Aichholz BATCH OR CONTINUOUS STILL OPERATOR Work Phone: [facility] Comment on above: Generalized abdomina l pain (Primary Dx) Start: 11-06-2024 End: 11-06-2024 Office outpatient visit 15 minutes Veronique Aichholz BATCH OR CONTINUOUS STILL OPERATOR Work Phone: [facility] Comment on above: UTI symptoms (Primar y Dx); 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 Start: 11-06-2024 End: 11-06-2024 ambulatory VERONIQUE AICHHOLZ Not Available Start: 11-06-2024 End: 11-09-2024 External Result Encounter Veronique Aicdonteholz BATCH OR CONTINUOUS STILL OPERATOR Work Phone: [facility] External Department Unsolicited Start: 11-06-2024 End: 11-09-2024 External Result Encounter Veronique Aichholz BATCH OR CONTINUOUS STILL OPERATOR Work Phone: [facility] External Department Unsolicited Start: 10-18-2024 End: 10-18-2024 Refill Veronique Aichholz BATCH OR CONTINUOUS STILL OPERATOR Work Phone: [facility] Comment on above: Dental infection (Pr imary Dx) Start: 10-09-2024 End: 10-09-2024 Refill Veronique Pamelaz BATCH OR CONTINUOUS STILL OPERATOR Work Phone: [facility] Comment on above: Gastroesophageal ref lux disease without esophagitis Start: 10-05-2024 End: 10-05-2024 Refill Veronique Aicmaria teresaz BATCH OR CONTINUOUS STILL OPERATOR Work Phone: [facility] Comment on above: Gastroesophageal ref lux disease without esophagitis Start: 09-18-2024 End: 09-18-2024 Bamboo flowsheet Bao Noble DPM Work Phone: [facility] Start: 09-18-2024 End: 09-18-2024 Bamboo flowsheet Bao Noble DPM Work Phone: [facility] Start: 09-18-2024 End: 09-18-2024 Office outpatient new 30 minutes Bao Noble DPM Work Phone: [facility] Comment on above: Onychodystrophy ([facility] Dx); Ingrown toenail; Onychomycosis; Diabetic polyneuropathy associated with type 2 diabetes mellitus (CMS/HCC); Left foot pain Start: 09-18-2024 End: 09-18-2024 ambulatory BAO NOBLE Not Available Start: 09-07-2024 End: 09-07-2024 Refill Veronique Steven BATCH OR CONTINUOUS STILL OPERATOR Work Phone: [facility] Comment on above: Gastroesophageal ref lux disease without esophagitis Start: 08-16-2024 End: 08-16-2024 Office outpatient visit 25 minutes Veronique Steven BATCH OR CONTINUOUS STILL OPERATOR Work Phone: [facility] Comment on above: Acute bilateral low back pain without sciatica (Primary Dx); Cigarette nicotine dependence with nicotine-induced disorder; Primary hypertension (CMS/HCC); Abdominal aortic pulsation; Screening for lung cancer; 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 Start: 08-16-2024 End: 08-16-2024 ambulatory VERONIQUE AICHHOLZ Not Available Start: 08-16-2024 End: 08-16-2024 Bamboo flowsheet Veronique Steven BATCH OR CONTINUOUS STILL OPERATOR Work Phone: [facility] Start: 08-16-2024 End: 08-16-2024 Bamboo flowsheet Veronique Steven BATCH OR CONTINUOUS STILL OPERATOR Work Phone: [facility] Start: 07-31-2024 End: 07-31-2024 Orders Only Veronique Harris BATCH OR CONTINUOUS STILL OPERATOR Work Phone: [facility] Comment on above: Abdominal aortic pul sation (Primary Dx) Start: 07-27-2024 End: 07-27-2024 Bamboo flowsheet Veronique Steven BATCH OR CONTINUOUS STILL OPERATOR Work Phone: [facility] Start: 07-27-2024 End: 07-27-2024 Bamboo flowsheet Veronique Steven BATCH OR CONTINUOUS STILL OPERATOR Work Phone: [facility] Start: 07-27-2024 End: 07-27-2024 Office outpatient visit 25 minutes Veronique Harris BATCH OR CONTINUOUS STILL OPERATOR Work Phone: [facility] Comment on above: Controlled type 2 di abetes mellitus without complication, without long-term current use of insulin (CMS/HCC) (Primary Dx); Type 2 diabetes mellitus with diabetic chronic kidney disease (CMS/HCC); Chronic kidney disease, stage 2 (mild); [id number] deficiency (CMS/HCC); Mixed hyperlipidemia (CMS/HCC); Chronic obstructive pulmonary disease, unspecified COPD type (CMS/HCC); Gastroesophageal reflux disease without esophagitis; Other specified hypothyroidism (CMS/HCC); Primary hypertension (CMS/HCC); Seasonal allergic rhinitis due to pollen; 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; Coronary artery disease involving [place] coronary artery of [place] heart without angina pectoris (CMS/HCC); Abdominal aortic pulsation; Acute bilateral low back pain without sciatica Start: 07-27-2024 End: 07-27-2024 ambulatory VERONIQUE STEVEN Not Available Start: 07-20-2024 End: 07-20-2024 Emergency department patient visit VERONIQUE HARRIS [facility] Start: 07-05-2024 End: 07-06-2024 Refill Veronique Aichholz BATCH OR CONTINUOUS STILL OPERATOR Work Phone: [facility] Comment on above: Bacterial vaginosis Start: 06-22-2024 End: 06-22-2024 Refill Veronique Aichholz BATCH OR CONTINUOUS STILL OPERATOR Work Phone: [facility] Comment on above: Bacterial vaginosis (Primary Dx) Start: 06-21-2024 End: 06-21-2024 Bamboo flowsheet Veronique Aichholz BATCH OR CONTINUOUS STILL OPERATOR Work Phone: [facility] Start: 06-21-2024 End: 06-21-2024 Bamboo flowsheet Veronique Aichholz BATCH OR CONTINUOUS STILL OPERATOR Work Phone: [facility] Start: 06-21-2024 End: 06-21-2024 Office outpatient visit 25 minutes Veronique Vicentehamauryz BATCH OR CONTINUOUS STILL OPERATOR Work Phone: [facility] Comment on above: Controlled type 2 di abetes mellitus without complication, without long-term current use of insulin ([facility]) (Primary Dx); UTI symptoms; Acute cystitis without hematuria; Vaginal bleeding; Vaginal discharge; Mixed hyperlipidemia ([facility]); Chronic obstructive pulmonary disease, unspecified COPD type ([facility]); Gastroesophageal reflux disease without esophagitis; Other specified hypothyroidism ([facility]); Primary hypertension ([facility]); Seasonal allergic rhinitis due to pollen Start: 06-21-2024 End: 06-21-2024 ambulatory VERONIQUE VICENTEHHOLZ Not Available Start: 01-17-2024 ambulatory UNKNOWN PROVIDER Facili ty:[facility] Start: 01-19-2023 End: 01-19-2023 ambulatory DISPOSAL PLANT OPERATOR VERONIQUE VICENTEHHOLZ Facility:[facility] Start: 10-06-2022 Office outpatient vi sit 25 minutes Veronique Harris Work Phone: [facility] 250 DO Work Phone: Start: 10-06-[address] Rafael [place] Facility: Start: 09-23-2022 Rx Renewal Dara Mills Work Phone: [facility] 250 DO Work Phone: Start: 09-01-2022 End: 09-02-2022 ambulatory OLIVER ALVARADO . Facility:[facility] Start: 07-08-[address] Rafael [place] Facility: Start: 06-17-2022 End: 06-18-2022 ambulatory BORA HARRIS Facility:[facility] Start: 03-12-2022 End: 03-13-2022 ambulatory BORA HARRIS Facility:[facility] Start: 10-16-[address] Rafael [facility] Facility: Start: 10-16-2021 Office outpatient vi sit 15 minutes Dara Sathya Mills Work Phone: [facility] 250 DO Work Phone: Start: 08-18-2021 End: 08-19-2021 ambulatory [facility] Start: 07-31-2021 End: 08-01-2021 ambulatory [facility] Start: 07-31-2021 End: 07-31-2021 Subsequent hospital visit by physician [facility] Comment on above: Arrived Start: 07-30-2021 End: 07-31-2021 ambulatory [facility] Start: 07-30-2021 End: 07-30-2021 Subsequent hospital visit by physician [facility] Comment on above: Arrived Start: 07-21-2021 End: 07-22-2021 ambulatory [facility] Start: 07-21-2021 End: 07-21-2021 Subsequent hospital visit by physician [facility] Comment on above: Arrived Start: 07-17-2021 End: 07-18-2021 ambulatory [facility] Start: 07-17-2021 End: 07-17-2021 Subsequent hospital visit by physician [facility] Rm 1 [facility] Comment on above: Arrived Start: 07-10-2021 End: 07-11-2021 [facility]ulatory [facility] Start: 07-10-2021 End: 07-10-2021 Subsequent hospital visit by physician [facility] Comment on above: Arrived Start: 07-09-2021 End: 07-10-2021 ambulatory [facility] Start: 07-09-2021 End: 07-09-2021 Subsequent hospital visit by physician [facility]m 1 [facility] Comment on above: Arrived Start: 07-07-2021 End: 07-07-2021 Subsequent hospital visit by physician [facility] 1 [facility] Comment on above: Arrived Start: 07-02-2021 End: 07-03-2021 ambulatory [facility] Start: 07-02-2021 End: 07-02-2021 Subsequent hospital visit by physician [facility] 2 [facility] Comment on above: Arrived Start: 05-29-2021 End: 05-30-2021 [facility]ulatory [facility] Start: 05-28-2021 End: 05-29-2021 ambulatory [facility] Start: 05-28-2021 End: 05-28-2021 Subsequent hospital visit by physician [facility] Rm 2 [facility] Cardiac Rehab Comment on above: Arrived Start: 05-26-2021 End: 05-27-2021 ambulatory [facility] Start: 05-26-2021 End: 05-26-2021 Subsequent hospital visit by physician [facility]m 2 [facility] Comment on above: Arrived Start: 05-22-2021 End: 05-23-2021 ambulatory [facility] Start: 05-22-2021 End: 05-22-2021 Subsequent hospital visit by physician [facility] 2 [facility] Comment on above: Arrived Start: 05-19-2021 End: 05-20-2021 ambulatory [facility] Start: 05-19-2021 End: 05-19-2021 Subsequent hospital visit by physician [facility] Rm 2 [facility] Comment on above: Arrived Start: 05-15-2021 End: 05-16-2021 [facility]ulatory [facility] Start: 05-15-2021 End: 05-15-2021 Subsequent hospital visit by physician [facility]m 2 [facility] Comment on above: Arrived Start: 05-12-2021 End: 05-13-2021 [facility]ulatory [facility] Start: 05-08-2021 End: 05-09-2021 ambulatory [facility] Start: 05-08-2021 End: 05-08-2021 Subsequent hospital visit by physician [facility] 2 [facility] Comment on above: Arrived Start: 05-07-2021 End: 05-08-2021 ambulatory [facility] Start: 05-05-2021 End: 05-06-2021 ambulatory [facility] Start: 05-01-2021 End: 05-02-2021 ambulatory [facility] Start: 04-28-2021 End: 04-29-2021 ambulatory [facility] Start: 04-28-2021 End: 04-28-2021 Subsequent hospital visit by physician [facility] 2 [facility] Comment on above: Arrived Start: 04-23-2021 End: 04-24-2021 ambulatory [facility] Start: 04-23-2021 End: 04-23-2021 Subsequent hospital visit by physician [facility]m 2 [facility] Comment on above: Arrived Start: 04-21-2021 End: 04-22-2021 ambulatory [facility] Start: 04-21-2021 End: 04-21-2021 Subsequent hospital visit by physician [facility] 2 [facility] Comment on above: Arrived Start: 04-14-2021 End: 04-15-2021 ambulatory [facility] Start: 04-14-2021 End: 04-14-2021 Subsequent hospital visit by physician Josue [facility]m 2 [facility] Comment on above: Arrived Start: 04-10-2021 End: 04-11-2021 ambulatory [facility] Start: 04-08-2021 End: 04-09-2021 ambulatory [facility] Start: 04-08-2021 End: 04-08-2021 Subsequent hospital visit by physician Josue Cr Education Room [facility] Comment on above: Arrived Start: 05-19-2018 Patient encounter THOMAS DELGADILLO Facility:[facility] Start: 03-17-2018 End: 03-17-2018 Patient encounter THOMAS DELGADILLO Facility:[facility] Start: 02-03-2018 Patient encounter THOMAS Ibrahim ODALIS Facility:[facility] Start: 07-26-2017 End: 07-26-2017 Ambulatory ESEQUIEL C YANELIS [facility] Start: 07-26-2017 End: 07-26-2017 Ambulatory IVAN HYDE [facility] Start: 07-26-2017 End: 07-27-2017 Ambulatory ESEQUIEL C YANELIS [facility] Start: 07-26-2017 End: 07-26-2017 Ambulatory ESEQUIEL C YANELIS [facility] Start: 06-07-2017 End: 06-07-2017 Ambulatory ESEQUIEL C YANELIS [facility] Procedures Date Procedure Procedure Detail Performing Clinician Start: 05-10-2025 E COLI SHIGA TOXIN EIA Generic External Data Provider Start: 05-09-2025 BLOOD CULTURE 2 Generic External Data Provider Start: 05-09-2025 BLOOD CULTURE 1 Generic External Data Provider Start: 04-05-2025 ALL CBC WITH AUTO DIFF Veronique Harris BATCH OR CONTINUOUS STILL OPERATOR Work Phone: Start: 04-05-2025 Hemoglobin glycosylated a1c Veronique bass BATCH OR CONTINUOUS STILL OPERATOR Work Phone: Start: 11-06-2024 Urnls dip stick/tablet rgnt non-auto w/o micrscp Veronique Harris BATCH OR CONTINUOUS STILL OPERATOR Work Phone: Start: 11-06-2024 URINARY TRACT INFECTION (HTRX) Veronique spann BATCH OR CONTINUOUS STILL OPERATOR Work Phone: Start: 07-27-2024 Hemoglobin glycosylated a1c Veronique bass BATCH OR CONTINUOUS STILL OPERATOR Work Phone: Start: 03-20-2024 Colonoscopy Veronique Harris BATCH OR CONTINUOUS STILL OPERATOR Work Phone: Start: 02-14-2024 Mammography Veronique Harris BATCH OR CONTINUOUS STILL OPERATOR Work Phone: Appendectomy Dara Mills Work Phone: Cardiac catheterization Amelia Mills Work Phone: Cholecystectomy Dara Morris s Work Phone: Colonoscopy Catalan Sarmin i Esophagogastroduodenoscopy M uhammad Sarmini Gallbladder structur e (body structure) Catalan Sarmini History of percutane ous transluminal coronary angioplasty History of PTCA Dara Mills Work Phone: Hysterectomy Dara Mills Work Phone: Hysterectomy Catalan Sarmin i Kidney operation Dara martinez Work Phone: Operative procedure on foot Dara Mills Work Phone: Operative procedure on knee Dara Mills Work Phone: Total colonoscopy Dara boyce Work Phone: Plan of Treatment Date Care Activity Detail Author Start: 03-20-2034 Screening for malign ant neoplasm of colon [facility] Start: 04-05-2026 Urine screening for protein Diabetes: Urine Protein Screening [facility] Start: 10-06-2025 Hemoglobin A1c measurement Diabetes: Hemoglobin A1C [facility] Start: 07-20-2025 Adult BMI Screening Adult BMI Screen ing [facility] Start: 07-20-2025 Tobacco Screening Tobacco Screening [facility] Start: 07-11-2025 End: 07-11-2025 Patient encounter procedure 07/11/2025 9:40 AM EDT Office Visit [facility] [address] [place] [address] Veronique Harris NP [address] [place] [phone] [facility] Start: 06-26-2025 End: 06-26-2025 Patient encounter procedure 06/26/2025 1:20 PM EDT Office Visit [facility] [address] [place] [address] Veronique Harris NP [address] [place] [phone] [facility] Start: 06-22-2025 End: 06-22-2025 Patient encounter procedure 06/22/2025 10:15 AM EDT Office Visit [facility] [address] [address] Pantera Garzon MD [address] [facility] [address] [place] [address] [facility] Start: 06-02-2025 Hemoglobin A1c measurement Diabetes: Hemoglobin A1C [facility] Start: 05-28-2025 Influenza vaccination Influenza Vacc [facility] Start: 05-21-2025 End: 05-21-2025 Patient encounter procedure 05/21/2025 2:20 PM EDT Office Visit [facility] [address] [place] [address] Veronique Harris NP [address] [place] [phone] [facility] Start: 05-21-2025 End: 05-21-2026 Basic metabolic 1998 panel - Serum or Plasma Basic metabolic panel Lab Routine Primary hypertension Type 2 diabetes mellitus with chronic kidney disease, without long-term current use of insulin, unspecified CKD stage (HCC) Expected: 05/21/2025 (Approximate), Expires: 05/21/2026 [facility] Work Phone: Comment on above: Expected: 05/21/2025 (Approximate), Expires: 05/21/2026 Start: 05-16-2025 End: 05-16-2025 Patient encounter procedure 05/16/2025 9:[address] [facility] Surgical [facility] [address] [facility] [address] [place] [phone] Pantera Garzon MD [address] [facility] [address] [place] [address] [facility] Start: 04-11-2025 End: 04-11-2025 Patient encounter procedure 04/11/2025 10:15 AM EDT Office Visit [facility] [address] [place] [phone] Bao Noble, DPM [address] [place] [address] [facility] Start: 04-05-2025 End: 04-05-2026 Basic metabolic 1998 panel - Serum or Plasma Basic metabolic panel Lab Routine Hypokalemia Expected: 04/05/2025 (Approximate), Expires: 04/05/2026 [facility] Work Phone: Comment on above: Expected: 04/05/2025 (Approximate), Expires: 04/05/2026 Start: 04-05-2025 End: 04-05-2026 CT Abdomen and Pelvis W contrast IV CT abdomen pelvis w IV contrast Imaging Routine Microscopic hematuria Colovaginal fistula Elevated alkaline phosphatase level Expected: 04/05/2025 (Approximate), Expires: 04/05/2026 [facility] Work Phone: Comment on above: Expected: 04/05/2025 (Approximate), Expires: 04/05/2026 Start: 04-05-2025 End: 04-05-2025 Patient encounter procedure 04/05/2025 9:40 AM EDT Office Visit [facility] [address] [place] [address] Veronique Harris, BATCH OR CONTINUOUS STILL OPERATOR [address] [place] [address] [facility] Start: 02-14-2025 End: 02-14-2025 Patient encounter procedure 02/14/2025 2:30 PM EDT Office Visit [facility] [address] [facility] [place] [phone] Rhiannon Abarca DO [address] [place], [place] [phone] [facility] Start: 02-13-2025 Screening for malign ant neoplasm of breast Mammogram [facility] Start: 01-24-2025 Hemoglobin A1c measurement Diabetes: Hemoglobin A1C [facility] Start: 01-08-2025 End: 01-08-2025 Patient encounter procedure 01/08/2025 1:30 PM EDT Procedure Visit [facility] [address] [place] [phone] Bao Noble, DP [address] [place] [address] [facility] Start: 01-04-2025 End: 01-04-2025 Patient encounter procedure 01/04/2025 3:00 PM EDT Office Visit [facility] [address] [place] [address] Veronique Harris, ANNA [address] [place] [phone] [facility] Start: 01-01-2025 End: 01-01-2025 Patient encounter procedure 01/01/2025 9:00 AM EDT Office Visit [facility] [address] [place] [address] Veronique Harris, ANNA [address] [place] [address] [facility] Start: 12-27-2024 End: 12-27-2024 Patient encounter procedure 12/27/2024 9:15 AM EDT Procedure Visit [facility] [address] [place] [phone] Bao Noble, DP [address] [place], [place] [phone] [facility] Start: 11-30-2024 End: 11-30-2024 Patient encounter procedure 11/30/2024 2:40 PM EST Office Visit [facility] [address] [place] [address] Veronique Harris, ANNA [address] [place] [phone] [facility] Start: 11-24-2024 Urine screening for protein Diabetes: Urine Protein Screening [facility] Start: 11-15-2024 End: 11-15-2024 Patient encounter procedure 11/15/2024 6:00 PM EST Office Visit [facility] [address] [place] [address] Veronique Harris, ANNA [address] [place] [phone] [facility] Start: 11-06-2024 End: 11-06-2025 URINARY TRACT INFECTION (HTRX) URINARY TRACT INFECTION (HTRX) Lab Routine UTI symptoms Expected: 11/06/2024 (Approximate), Expires: 11/06/2025 [facility] Work Phone: Comment on above: Expected: 11/06/2024 (Approximate), Expires: 11/06/2025 Start: 09-18-2024 End: 09-18-2024 Patient encounter procedure 09/18/2024 10:15 AM EST Office Visit [facility] [address] [place] [phone] Bao Noble, DPM [address] [place], [place] [phone] Arrived [facility] Comment on above: Arrived Start: 08-16-2024 End: 08-16-2024 Patient encounter procedure 08/16/2024 5:00 PM EST Office Visit [facility] [address] [place] [phone] Veronique Harris, ANNA [address] [place] [phone] Cigarette nicotine dependence with nicotine-induced disorder (Primary Dx); Primary hypertension (CMS/HCC); Abdominal aortic pulsation; Acute bilateral low back pain without sciatica [facility] Comment on above: Cigarette nicotine d ependence with nicotine-induced disorder (Primary Dx); Primary hypertension (CMS/HCC); Abdominal aortic pulsation; Acute bilateral low back pain without sciatica Start: 08-15-2024 End: 08-15-2024 Patient encounter procedure 08/15/2024 9:40 AM EST Office Visit [facility] [address] [place] [phone] Veronique Harris, BATCH OR CONTINUOUS STILL OPERATOR [address] [place] [phone] [facility] Start: 07-31-2024 End: 07-31-2025 US Abdominal Aorta for screening Vascular US abdominal aorta anuerysm AAA screening Imaging Routine Abdominal aortic pulsation Expected: 07/31/2024 (Approximate), Expires: 07/31/2025 [facility] Work Phone: Comment on above: Expected: 07/31/2024 (Approximate), Expires: 07/31/2025 Start: 07-27-2024 End: 07-27-2025 US.doppler Pelvis vessels limited Vascular US abdomen/pelvis duplex limited Imaging Routine Abdominal aortic pulsation Expected: 07/27/2024, Expires: 07/27/2025 [facility] Work Phone: Comment on above: Expected: 07/27/2024 , Expires: 07/27/2025 Start: 07-27-2024 End: 07-27-2024 Patient encounter procedure 07/27/2024 9:40 AM EDT Office Visit [facility] [address] [place] [address] Veronique Harris NP [address] [place] [phone] Controlled type 2 diabetes mellitus without complication, without long-term current use of insulin (CMS/HCC) (Primary Dx); Type 2 diabetes mellitus with diabetic chronic kidney disease (CMS/HCC); Chronic kidney disease, stage 2 (mild); [id number] deficiency (CMS/HCC); Mixed hyperlipidemia (CMS/HCC); Chronic obstructive pulmonary disease, unspecified COPD type (CMS/HCC); Gastroesophageal reflux disease without esophagitis; Other specified hypothyroidism (CMS/HCC); Primary hypertension (CMS/HCC); Seasonal allergic rhinitis due to pollen; 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 [facility] Comment on above: Controlled type 2 di abetes mellitus without complication, without long-term current use of insulin (CMS/HCC) (Primary Dx); Type 2 diabetes mellitus with diabetic chronic kidney disease (CMS/HCC); Chronic kidney disease, stage 2 (mild); [id number] deficiency (CMS/HCC); Mixed hyperlipidemia (CMS/HCC); Chronic obstructive pulmonary disease, unspecified COPD type (CMS/HCC); Gastroesophageal reflux disease without esophagitis; Other specified hypothyroidism (CMS/HCC); Primary hypertension (CMS/HCC); Seasonal allergic rhinitis due to pollen; 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 Start: 07-17-2024 End: 07-17-2024 Patient encounter procedure 07/17/2024 9:40 AM EDT Office Visit [facility] [address] [place] [address] Veronique Harris NP [address] [place] [phone] [facility] Start: 06-21-2024 End: 06-21-2025 Bacteria identified in Urine by Culture Urine culture (clean catch) Microbiology Routine UTI symptoms Expected: 06/21/2024 (Approximate), Expires: 06/21/2025 [facility] Comment on above: Expected: 06/21/2024 (Approximate), Expires: 06/21/2025 Start: 06-21-2024 End: 06-21-2025 Urinalysis complete panel - Urine Urinalysis with reflex microscopic (clean catch) Lab Routine UTI symptoms Expected: 06/21/2024 (Approximate), Expires: 06/21/2025 [facility] Work Phone: Comment on above: Expected: 06/21/2024 (Approximate), Expires: 06/21/2025 Start: 06-21-2024 End: 06-21-2025 VAGINITIS (HTRX) VAGINITIS (HTRX) Lab Routine Vaginal bleeding Vaginal discharge Expected: 06/21/2024 (Approximate), Expires: 06/21/2025 [facility] Comment on above: Expected: 06/21/2024 (Approximate), Expires: 06/21/2025 Start: 06-21-2024 End: 06-21-2024 Patient encounter procedure 06/21/2024 11:00 AM EDT Office Visit [facility] [address] [place] [address] Veronique Harris NP [address] [place] [phone] Arrived [facility] Comment on above: Arrived Start: 05-24-2024 Hemoglobin A1c measurement Diabetes: Hemoglobin A1C [facility] Start: 03-20-2024 Screening for malign ant neoplasm of colon [facility] Start: 10-06-2023 FUV, Provider: Rafael Washington, Status: Pen, Time: 10:30 AM FUV, Provider: Rafael Washington, Status: Pen, Time: 10:30 AM [facility] 250 DO Work Phone: Start: 10-06-2022 FUV, Provider: Rafael Washington, Status: Pen, Time: 1:20 PM [facility]UV, Provider: Rafael Washington, Status: Pen, Time: 1:20 PM [facility] 250 DO Work Phone: Start: 04-14-2022 FUV, Provider: Rafael Washington, Status: Pen, Time: 11:20 AM [facility]UV, Provider: Rafael Washington, Status: Pen, Time: 11:20 AM [facility] 250 DO Work Phone: Start: 08-18-2021 End: 08-18-2021 Patient encounter procedure 08/18/2021 Appointment Cardiac Rehabilitation [facility] Cardiac Rehab Start: 08-18-2021 End: 08-18-2021 Patient encounter procedure 08/18/2021 Appointment Cardiac Rehabilitation [facility] Cardiac Rehab Start: 08-14-2021 End: 08-14-2021 Patient encounter procedure 08/14/2021 Appointment Cardiac Rehabilitation [facility] Cardiac Rehab Start: 08-14-2021 End: 08-14-2021 Patient encounter procedure 08/14/2021 Appointment Cardiac Rehabilitation [facility] Cardiac Rehab Start: 08-13-2021 End: 08-13-2021 Patient encounter procedure 08/13/2021 Appointment Cardiac Rehabilitation [facility] Cardiac Rehab Start: 08-13-2021 End: 08-13-2021 Patient encounter procedure 08/13/2021 Appointment Cardiac Rehabilitation [facility] Cardiac Rehab Start: 08-11-2021 End: 08-11-2021 Patient encounter procedure 08/11/2021 Appointment Cardiac Rehabilitation [facility] Cardiac Rehab Start: 08-11-2021 End: 08-11-2021 Patient encounter procedure 08/11/2021 Appointment Cardiac Rehabilitation [facility] Cardiac Rehab Start: 08-07-2021 End: 08-07-2021 Patient encounter procedure 08/07/2021 Appointment Cardiac Rehabilitation [facility] Cardiac Rehab Start: 08-07-2021 End: 08-07-2021 Patient encounter procedure 08/07/2021 Appointment Cardiac Rehabilitation [facility] Cardiac Rehab Start: 08-06-2021 End: 08-06-2021 Patient encounter procedure 08/06/2021 Appointment Cardiac Rehabilitation [facility] Cardiac Rehab Start: 08-06-2021 End: 08-06-2021 Patient encounter procedure 08/06/2021 Appointment Cardiac Rehabilitation [facility] Cardiac Rehab Start: 08-04-2021 End: 08-04-2021 Patient encounter procedure 08/04/2021 Appointment Cardiac Rehabilitation [facility] Cardiac Rehab Start: 08-04-2021 End: 08-04-2021 Patient encounter procedure 08/04/2021 Appointment Cardiac Rehabilitation [facility] Cardiac Rehab Start: 07-31-2021 End: 07-31-2021 Patient encounter procedure 07/31/2021 Appointment Cardiac Rehabilitation [facility] Cardiac Rehab Start: 07-31-2021 End: 07-31-2021 Patient encounter procedure 07/31/2021 Appointment Cardiac Rehabilitation [facility] Cardiac Rehab Start: 07-30-2021 End: 07-30-2021 Patient encounter procedure 07/30/2021 Appointment Cardiac Rehabilitation [facility] Cardiac Rehab Start: 07-30-2021 End: 07-30-2021 Patient encounter procedure 07/30/2021 Appointment Cardiac Rehabilitation [facility] Cardiac Rehab Start: 07-28-2021 End: 07-28-2021 Patient encounter procedure 07/28/2021 Appointment Cardiac Rehabilitation [facility] Cardiac Rehab Start: 07-28-2021 End: 07-28-2021 Patient encounter procedure 07/28/2021 Appointment Cardiac Rehabilitation [facility] Card[facility] Rehab Start: 2021 End: 2021 Patient encounter procedure 2021 Appointment Cardiac Rehabilitation [facility] Cardiac Rehab Start: 2021 End: 2021 Patient encounter procedure 2021 Appointment Cardiac Rehabilitation [facility] Card[facility] Rehab Start: 07-23-2021 End: 07-23-2021 Patient encounter procedure 07/23/2021 Appointment Cardiac Rehabilitation [facility] Cardiac Rehab Start: 07-23-2021 End: 07-23-2021 Patient encounter procedure 07/23/2021 Appointment Cardiac Rehabilitation [facility] Cardiac Rehab Start: 07-21-2021 End: 07-21-2021 Patient encounter procedure 07/21/2021 Appointment Cardiac Rehabilitation [facility] Cardiac Rehab Start: 07-17-2021 End: 07-17-2021 Patient encounter procedure 07/17/2021 Appointment Cardiac Rehabilitation [facility] Card[facility] Rehab Start: 07-16-2021 End: 07-16-2021 Patient encounter procedure 07/16/2021 Appointment Cardiac Rehabilitation [facility] Card[facility] Rehab Start: 07-14-2021 End: 07-14-2021 Patient encounter procedure 07/14/2021 Appointment Cardiac Rehabilitation [facility] Cardiac Rehab Start: 07-10-2021 End: 07-10-2021 Patient encounter procedure 07/10/2021 Appointment Cardiac Rehabilitation [facility] Card[facility] Rehab Start: 07-09-2021 End: 07-09-2021 Patient encounter procedure 07/09/2021 Appointment Cardiac Rehabilitation [facility] Card[facility] Rehab Start: 07-07-2021 End: 07-07-2021 Patient encounter procedure 07/07/2021 [facility] [facility] Start: 07-03-2021 End: 07-03-2021 Patient encounter procedure 07/03/2021 Appointment Cardiac Rehabilitation [facility] Cardiac Rehab Start: 07-02-2021 End: 07-02-2021 Patient encounter procedure 07/02/2021 Appointment Cardiac Rehabilitation [facility] Cardiac Rehab Start: 06-30-2021 End: 06-30-2021 Patient encounter procedure 06/30/2021 Appointment Cardiac Rehabilitation [facility] Cardiac Rehab Start: 06-26-2021 End: 06-26-2021 Patient encounter procedure 06/26/2021 Appointment Cardiac Rehabilitation [facility] Cardiac Rehab Start: 06-25-2021 End: 06-25-2021 Patient encounter procedure 06/25/2021 Appointment Cardiac Rehabilitation [facility] Cardiac Rehab Start: 06-23-2021 End: 06-23-2021 Patient encounter procedure 06/23/2021 Appointment Cardiac Rehabilitation [facility] Cardiac Rehab Start: 06-19-2021 End: 06-19-2021 Patient encounter procedure 06/19/2021 Appointment Cardiac Rehabilitation [facility] Cardiac Rehab Start: 06-18-2021 End: 06-18-2021 Patient encounter procedure 06/18/2021 Appointment Cardiac Rehabilitation [facility] Cardiac Rehab Start: 06-16-2021 End: 06-16-2021 Patient encounter procedure 06/16/2021 Appointment Cardiac Rehabilitation [facility] Cardiac Rehab Start: 06-12-2021 End: 06-12-2021 Patient encounter procedure 06/12/2021 Appointment Cardiac Rehabilitation [facility] Cardiac Rehab Start: 06-11-2021 End: 06-11-2021 Patient encounter procedure 06/11/2021 Appointment Cardiac Rehabilitation [facility] Cardiac Rehab Start: 06-09-2021 End: 06-09-2021 Patient encounter procedure 06/09/2021 Appointment Cardiac Rehabilitation [facility] Cardiac Rehab Start: 06-05-2021 End: 06-05-2021 Patient encounter procedure 06/05/2021 Appointment Cardiac Rehabilitation [facility] Cardiac Rehab Start: 06-04-2021 End: 06-04-2021 Patient encounter procedure 06/04/2021 Appointment Cardiac Rehabilitation [facility] Cardiac Rehab Start: 06-02-2021 End: 06-02-2021 Patient encounter procedure 06/02/2021 Appointment Cardiac Rehabilitation [facility] Cardiac Rehab Start: 05-29-2021 End: 05-29-2021 Patient encounter procedure 05/29/2021 Appointment Cardiac Rehabilitation [facility] Cardiac Rehab Start: 05-28-2021 Influenza vaccination Flu vaccine (# 1) [facility] [place] Phone: Start: 05-28-2021 End: 05-28-2021 Patient encounter procedure 05/28/2021 Appointment Cardiac Rehabilitation [facility] Cardiac Rehab Start: 05-26-2021 End: 05-26-2021 Patient encounter procedure 05/26/2021 Appointment Cardiac Rehabilitation [facility] Cardiac Rehab Start: 05-22-2021 End: 05-22-2021 Patient encounter procedure 05/22/2021 Appointment Cardiac Rehabilitation [facility] Cardiac Rehab Start: 05-21-2021 End: 05-21-2021 Patient encounter procedure 05/21/2021 Appointment Cardiac Rehabilitation [facility] Cardiac Rehab Start: 05-19-2021 End: 05-19-2021 Patient encounter procedure 05/19/2021 Appointment Cardiac Rehabilitation [facility] Card[facility] Rehab Start: 05-15-2021 End: 05-15-2021 Patient encounter procedure 05/15/2021 Appointment Cardiac Rehabilitation [facility] Cardiac Rehab Start: 05-14-2021 End: 05-14-2021 Patient encounter procedure 05/14/2021 Appointment Cardiac Rehabilitation [facility] Cardiac Rehab Start: 05-12-2021 End: 05-12-2021 Patient encounter procedure 05/12/2021 Appointment Cardiac Rehabilitation [facility] Cardiac Rehab Start: 05-08-2021 End: 05-08-2021 Patient encounter procedure 05/08/2021 Appointment Cardiac Rehabilitation [facility] Cardiac Rehab Start: 05-07-2021 End: 05-07-2021 Patient encounter procedure 05/07/2021 Appointment Cardiac Rehabilitation [facility] Cardiac Rehab Start: 05-05-2021 End: 05-05-2021 Patient encounter procedure 05/05/2021 Appointment Cardiac Rehabilitation [facility] Cardiac Rehab Start: 05-01-2021 End: 05-01-2021 Patient encounter procedure 05/01/2021 Appointment Cardiac Rehabilitation [facility] Cardiac Rehab Start: 04-30-2021 End: 04-30-2021 Patient encounter procedure 04/30/2021 Appointment Cardiac Rehabilitation [facility] Cardiac Rehab Start: 04-28-2021 End: 04-28-2021 Patient encounter procedure 04/28/2021 Appointment Cardiac Rehabilitation [facility] Cardiac Rehab Start: 04-24-2021 End: 04-24-2021 Patient encounter procedure 04/24/2021 Appointment Cardiac Rehabilitation [facility] Card[facility] Re[facility] Start: 04-23-2021 End: 04-23-2021 Patient encounter procedure 04/23/2021 Appointment Cardiac Rehabilitation [facility] Cardiac Rehab Start: 04-21-2021 End: 04-21-2021 Patient encounter procedure 04/21/2021 Appointment Cardiac Rehabilitation [facility] Cardiac Rehab Start: 04-17-2021 End: 04-17-2021 Patient encounter procedure 04/17/2021 Appointment Cardiac Rehabilitation [facility] Cardiac Rehab Start: 04-16-2021 End: 04-16-2021 Patient encounter procedure 04/16/2021 Appointment Cardiac Rehabilitation [facility] Cardiac Rehab Start: 04-14-2021 End: 04-14-2021 Patient encounter procedure 04/14/2021 Appointment Cardiac Rehabilitation [facility] Card[facility] Rehab Start: 04-10-2021 End: 04-10-2021 Patient encounter procedure 04/10/2021 Appointment Cardiac Rehabilitation [facility] Cardiac Rehab Start: 2012 Administration of varicella zoster vaccine Zoster (Shingles) Vaccine (1 of 2) [employer] Start: 2012 Screening for malign ant neoplasm of breast Breast cancer screen [facility] [place] Phone: Start: 2012 Shingles Vaccine (1 of 2) Shingles Vaccine (1 of 2) [facility] [place] Phone: Start: 2007 Screening for malign ant neoplasm of colon Colon cancer screen colonoscopy [facility] [place] Phone: Start: 2002 Diabetes screen Diabetes screen [facility] Phone: Start: 1992 Screening for malign ant neoplasm of cervix [facility] [place] Phone: Start: 1983 [facility] malign [facility] Start: 1981 DTaP,Tdap and Td Vaccines (1 - Tdap) DTaP,Tdap and Td Vaccines [facility] - [facility]dap[facility]: [facility] DTaP/Tdap/Td vaccine (1 - Tdap) DTaP/Tdap/Td vaccine (1 - Tdap) [facility] [place] Phone: Start: 1977 HIV screening HIV screen [facility] Work Phone: Start: 1974 COVID-19 Vaccine (1) COVID-19 Vaccin e (1) [facility] [employer] Work Phone: Start: 1974 [facility] Start: 1972 Glaucoma screening Diabetes: R etinopathy Screening [facility] Start: 1972 Lipid panel Lipid screen [facility] Work Phone: Start: 1968 Pneumococcal 0-64 ye ars Vaccine (1 of 2 - PPSV23) Pneumococcal 0-64 years Vaccine (1 of 2 - PPSV23) [facility] [employer] Phone: Start: 1962 Creatinine measurement Creatinine mo roxana [facility] [place] Phone: Start: 1962 Hepatitis C screening Hepatitis C sc blanka [facility] [place] Phone: Start: 1962 Potassium monitoring Potassium monit andres [facility] [place] Phone: Start: 1962 Screening for malign ant neoplasm of colon [facility] Start: 1962 Tobacco Counseling Tobacco Counselin [facility] BLOOD CULTURE 1 BLOOD CULTURE 1 Lab Routine 05/09/2025 9:04 AM EDT [facility] BLOOD CULTURE 2 BLOOD CULTURE 2 Lab Routine 05/09/2025 11:05 AM EDT [facility] CARDIAC PHASE II [facility] Work Phone: Comment on above: Ordered: 05/26/2021 Ordered: 05/28/2021 Ordered: 07/02/2021 [facility] Payers Date Payer Category Payer Unknown [id number] 2023 Medicaid HMO [facility] MEDICAID [id number] 2022 Private Health Insurance [facility] MEDICAID Member Subscriber Plan / Payer (Effective 2022-Present) Name: Fausto Corrigan Relation to Subscriber: Self Name: Fausto Corrigan Payer ID: Not on file Group ID: Not on file Type: Not on file Address: [place] [id number] 2020 Medicaid [id number] 1962 Unknown [id number] 2.16.840.1.240288.3.579. 2.173 1962 Unknown [id number] 2.16.840.1.869238.3.579. 2.173 1962 Unknown [id number] 2.16.840.1.839031.3.579. 2.173 1962 Unknown [id number] 2.16.840.1.734063.3.579. 2.173 1962 Unknown [id number] 2.16.840.1.942822.3.579. 2.173 1962 Unknown [id number] 2.16.840.1.100424.3.579. 2.173 1962 Unknown [id number] 2.16.840.1.268974.3.579. 2.173 1962 Unknown [id number] 2.16.840.1.607677.3.579. 2.173 1962 Unknown [id number] 2.16.840.1.954268.3.579. 2.173 1962 Unknown [id number] 2.16.840.1.449414.3.579. 2.173 1962 Unknown [id number] 2.16.840.1.202412.3.579. 2.173 1962 Unknown [id number] 2.16.840.1.501528.3.579. 2.173 1962 Unknown [id number] 2.16.840.1.531205.3.579. 2.173 1962 Unknown [id number] 2.16.840.1.178199.3.579. 2.173 1962 Unknown [id number] 2.16.840.1.948122.3.579. 2.173 1962 Unknown [id number] 2.16.840.1.682971.3.579. 2.173 1962 Unknown [id number] 2.16.840.1.224318.3.579. 2.173 1962 Unknown [id number] 2.16.840.1.166335.3.579. 2.173 1962 Unknown [id number] 2.16.840.1.620562.3.579. 2.173 1962 Unknown [id number] 2.16.840.1.123532.3.579. 2.173 1962 Unknown [id number] 2.16.840.1.770065.3.579. 2.173 1962 Unknown [id number] 2.16.840.1.527634.3.579. 2.173 1962 Unknown [id number] 2.16.840.1.669885.3.579. 2.173 1962 Unknown [id number] 2.16.840.1.345867.3.579. 2.173 1962 Unknown [id number] 2.16.840.1.546625.3.579. 2.173 1962 Unknown [id number] 2.16.840.1.855184.3.579. 2.356 1962 Unknown [id number] 2.16.840.1.536534.3.579. 2.356 1962 Unknown [id number] 2.16.840.1.379717.3.579. 2.356 1962 Unknown [id number] 2.16.840.1.804862.3.579. 2.593 1962 Unknown [id number] 2.16.840.1.351515.3.579. 2.593 1962 Unknown [id number] 2.16.840.1.683228.3.579. 2.593 1962 Unknown [id number] 2.16.840.1.725808.3.579. 2.593 1962 Unknown [id number] 2.16.840.1.980624.3.579. 2.732 1962 Unknown [id number] 2.16.840.1.203965.3.579. 2.1286 1962 Unknown [id number] 2.16.840.1.169334.3.579. 2.727 1962 Unknown [id number] 2.16.840.1.712188.3.579. 2.1259 1962 Unknown [id number] 2.16.840.1.700283.3.579. 2.1259 1962 Unknown [id number] 2.16.840.1.170342.3.579. 2.1259 1962 Unknown [id number] 2.16.840.1.052203.3.579. 2.1259 1962 Unknown [id number] 2.16.840.1.489955.3.579. 2.1259 1962 Unknown [id number] 2.16.840.1.369873.3.579. 2.1259 1962 Unknown [id number] 2.16.840.1.847005.3.579. 2.1259 1962 Unknown [id number] 2.16.840.1.488972.3.579. 2.1259 1962 Unknown [id number] 2.16.840.1.738967.3.579. 2.1259 1962 Unknown [id number] 2.16.840.1.113172.3.579. 2.1259 1962 Unknown [id number] 2.16.840.1.954298.3.579. 2.1259 1959 Medicaid [id number] 1959 Unknown [id number] Unknown Social History Date Type Detail Facility Start: 04-08-2021 End: 12-06-2024 Tobacco smoking status NHIS Current every day smoker [facility] [place] Phone: History of tobacco use Cigarette Smoker [facility] Start: 04-08-2021 End: 05-21-2025 Cigarettes smoked current (pack per day) - Reported [facility] [place] Phone: Comment on above: POP DAILY; 6 CIGS A DAY; Start: 04-08-2021 End: 07-20-2024 Tobacco use and exposure Never used [employer] Start: 04-08-2021 End: 05-21-2025 Alcohol intake Ex-drinker (finding) [facility] [place] Phone: Start: 04-08-2021 Tobacco Comment 2 cigs a day [employer] Phone: Start: 1960 Sex Assigned At Not on file [facility] Phone: Start: 06-21-2024 End: 05-21-[address] [facility] Start: 09-08-2023 Alcohol Comment caffeine 2-[address] [facility] Start: 07-20-2024 Alcoholic beverage intake Lifetime non-drinker (finding) [employer] [facility] Child[facility] Unknown [facility] Start: 05-02-2015 End: 02-10-2019 Sex Female (finding) [facility] Start: 02-25-2021 Tobacco smoking status Light t obacco smoker (finding) [facility] Tobacco smoking status Smoker (finding) F [facility] Sexual Orientation [facility] Start: 1960 Sex Assigned At Female F [facility] Medical Equipment Procedure Code Equipment Code Equipment Origin al Text Equipment Identifier Dates Drug-eluting coronary artery stent, [id number] lymer-coated [id number] FDA Start: 03-20-2021 Clinical Notes 04-08-2021 to 05-21-2025 Veronique Harris NP - 05/21/2025 3:19 PM EDEsthela Harris NP - 05/21/2025 3:18 PM Teetee Harris NP - 05/21/2025 3:18 PM Teetee Harris NP - 05/21/2025 3:18 PM EDTPatient Instructions Note Date & Type Note Facility 05-21-2025 History of Present illness Narrative Associated Problem(s): LIA (acute kidney injury) Recheck labs Remain on lower dose of lisinopril 5mg, stay at that dose Associated Problem(s): Hypokalemia basic Associated Problem(s): Type 2 diabetes mellitus with [...] jardiance, pioglitazone A1c: 6.7% 04/05/25 Associated Problem(s): Gastroesophageal reflux disease without esophagitis Recommendations: freq small meals, nothing to eat or drink at least 2 hours prior to bed, limit caffeine, alcohol, as well as spicy foods Meds to limit or avoid if possible: NSAIDS Elevate HOB if possible Current meds: PPI Associated Problem(s): Nausea and vomiting Resolved Recheck basic Associated Problem(s): Generalized abdominal pain See labs, CT scan Saw GI Associated Problem(s): HTN (hypertension) Please check blood pressure daily and record DASH diet Limit caffeine Take medication as directed Contact office if chest pain, pressure, dizziness, shortness of breath, swelling legs Recommend slow position changes Current med: b karon and noah (lisinopril at 5mg daily) Medication from the hospital is not working-she has 2 days left of the atb, she is still having diarrhea. Pt states she has a week left of potassium left. She is feeling better vs from what she was. Last time pt had emesis was in the hospital. Diarrhea about 4-6x today. Not very watery. No blood (Hemorid are bleeding tho) pt would like cream for those. Pt is still having stomach pain. Pt will be finished on Wednesday with all related medications Pt was sent home with 0.5L of 02 at night due to 02 dropping in the 80s Pt has used it a couple times at night Pt seen gen surgery today- no surgery yet she is getting an upper and lower GI done on 06/12 Images from the original note were not included. Fausto Corrigan is a 64 y.o. female presents with chief complaint of Hospital Follow-up HPI: Hospital fu: 05/09/25-05/13/25 LIA, dehydration, colitis No NV, is having diarrhea 5-6 times daily. Occ blood from hemorrhoids Saw GI: is going to have EGD/Colonoscopy mid May Saw General Surgeon today, re hx colovaginal fistula, will fu with him in 1 month She feels tired, no NV, generalized abd pain, some intermittent burning, is eating soft foods No dizziness or lightheadedness Has been sent home on lower dose of lisinopril, now only at 5mg dose No other new c/o at this time Is finishing her atb as well Was sent home on oxygen and told to follow up with dr armendariz, used to see [place] now left the area SUBJECTIVE: MEDICATIONS: Current Outpatient Medications Medication Instructions albuterol HFA 90 mcg/act inhaler 2 puffs, Inhalation, Every 6 hours PRN albuterol 2.5 mg, 4 times daily amoxicillin-clavulanate (Augmentin) 875-125 MG tablet 1 tablet, 2 times daily ASPIRIN 81 PO 81 mg, [...] 125 mcg, Oral, Daily before breakfast lisinopril 40 mg, Oral, Daily MAGNESIUM OXIDE 400 PO 400 mg, Daily metFORMIN (GLUCOPHAGE) 500 mg, 2 times daily with meals metoprolol tartrate (LOPRESSOR) 25 mg, Oral, 2 times daily montelukast (SINGULAIR) 10 mg, Oral, Nightly pantoprazole (PROTONIX) 40 mg, Oral, 2 times daily pioglitazone (ACTOS) 15 mg, Oral, Daily potassium chloride ER (Micro-K) 10 MEQ ER capsule 10 mEq, Daily ALLERGIES: Allergies Allergen Reactions Levaquin [Levofloxacin] Itching Sulfa Antibiotics REVIEW OF SYMPTOMS: Review of Systems Constitutional: Positive for fatigue and unexpected weight change. Negative for appetite change, chills and fever. HENT: Negative for congestion, ear pain and sore throat. Eyes: Negative for pain, discharge, redness and visual disturbance. Respiratory: Negative for cough, shortness of breath and wheezing. Cardiovascular: Negative for chest pain, palpitations and leg swelling. Gastrointestinal: Positive for abdominal pain and diarrhea. Negative for blood in stool, constipation, nausea and vomiting. 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/2023 Atypical mole Chronic obstructive pulmonary disease ([facility]) Cigarette nicotine dependence with nicotine-induced disorder 12/09/2023 Coronary artery disease Dental infection 12/09/2023 Diabetes type 2, controlled ([facility]) 09/30/2023 Diverticulitis 11/16/2023 Diverticulosis diverticulosis/diverticulitis Elevated alkaline phosphatase level 11/24/2023 Gastroesophageal reflux disease without esophagitis 09/16/2023 Generalized abdominal pain 08/31/2023 HTN (hypertension) Hypothyroidism Other specified hypothyroidism 09/16/2023 Pain, dental Perforated diverticulum 2016 perforated diverticuli Postmenopausal postcoital bleeding 12/09/2023 Seasonal allergic rhinitis due to pollen 12/09/2023 Stage 3a chronic kidney disease (CKD) ([facility]) 12/09/2023 STEMI (ST elevation myocardial infarction) ([facility]) Stress at home 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 11/16/2023 Past Surgical History: Procedure Laterality Date APPENDECTOMY CARDIAC SURGERY Left heart-ventricular puncture- Stent placement CHOLECYSTECTOMY lap eamon COLONOSCOPY 2017 KNEE SURGERY Right arthroscopy LITHOTRIPSY ORIF FOOT FRACTURE Right ROTATOR CUFF REPAIR Right TOTAL ABDOMINAL HYSTERECTOMY WISDOM TOOTH EXTRACTION family history includes Cancer in her father and mother; Diabetes in her mother; Heart disease in her father and mother; Hypertension in her father and mother; Skin cancer in her sister. OBJECTIVE: Visit Vitals BP 142/80 Pulse 65 Temp 97.3 F (Temporal) Resp 20 Wt 129 lb 3.2 oz SpO2 96% BMI 24.02 kg/m Smoking Status Every Day BSA 1.59 m Physical Exam Vitals and nursing note reviewed. Constitutional: General: She is not in acute distress. Appearance: Normal appearance. She is not ill-appearing. HENT: Head: Normocephalic and atraumatic. Right Ear: Tympanic membrane, ear canal and external ear normal. Left Ear: Tympanic membrane, ear canal and external ear normal. Nose: Nose normal. No congestion or rhinorrhea. Mouth/Throat: Mouth: Mucous membranes are moist. Pharynx: No oropharyngeal exudate or posterior oropharyngeal erythema. Eyes: Extraocular Movements: Extraocular movements intact. Conjunctiva/sclera: [...] mass. Tenderness: There is no abdominal tenderness (generalized about entire abd, but soft no guarding). Musculoskeletal: General: Normal range of motion. Cervical back: Normal range of motion and neck supple. Right lower leg: No edema. Left lower leg: No edema. Lymphadenopathy: Cervical: No cervical adenopathy. Skin: General: [...] ASSESSMENT AND PLAN: Follow up in about 4 weeks (around 06/18/2025) for Recheck. Problem List Items Addressed This Visit Generalized abdominal pain See labs, CT scan Saw GI Gastroesophageal reflux disease without esophagitis Recommendations: freq small meals, nothing to eat or drink at least 2 hours prior to bed, limit caffeine, alcohol, as well as spicy foods Meds to limit or avoid if possible: NSAIDS Elevate HOB if possible Current meds: PPI HTN (hypertension) Please check blood pressure daily and record DASH diet Limit caffeine Take medication as directed Contact office if chest pain, pressure, dizziness, shortness of breath, swelling legs Recommend slow position changes Current med: b karon and noah (lisinopril at 5mg daily) Relevant Orders Basic metabolic panel Hypokalemia basic Cigarette nicotine dependence with nicotine-induced disorder - Primary Type 2 diabetes mellitus with diabetic [...] asa, statin, jardiance, pioglitazone A1c: 6.7% 04/05/25 Relevant Orders Basic metabolic panel Nausea and vomiting Resolved Recheck basic Hypoxia LIA (acute kidney injury) Recheck labs Remain on lower dose of lisinopril 5mg, stay at that dose documented in this encounter [facility] 05-21-2025 Instructions Veronique Harris NP - 05/21/2025 2:20 PM EDT Check labs Keep lisinopril at 5mg daily at this time A referral for Dr Armendariz for lung doctor documented in this encounter [facility] 05-21-2025 History of Present illness Narrative Images from the original note were not included. Fausto Laird Shekhar 1960 Fausto Amayates is a 64 y.o. female presents with chief complaint of Consult (Colovaginal fistula/Saw GI next door and will be doing and EGD and colonoscopy. They sent her here for something but does not know why. She is having diarrhea. The GI doctor did say he could see the fistula . Had a CT scan.) HPI: Fausto Corrigan is a 64-year-old female who presents to the office today for diarrhea. She was recntly discharged from a 5-day hospital stay for dehydration, kidney failure, diarrhea, vomiting, and hypokalemia. Patient says that the issues had been occurring for about 1 month before admission. She left the hospital on the April and has felt better apart from continued diarrhea. She describes the diarrhea as constant, liquid with no blood or mucus that worsens when taking her medications as prescribed. Pt admits to mid-epigastric abdominal pain as well that is burning all the time , is worse when lying down, and is unchanged regardless of what she eats. Her diet since discharge has consisted of soft foods included macaroni and cheese, macaroni salad, and milkshakes out of ice. She also described a 2-lb weight loss since discharge from the hospital. PSHx includes appendectomy, cholecystectomy, and hysterectomy; PMHx includes hyperlipidemia, hypertension, and diabetes. She denies anymore vomiting, nausea, constipation. Patient presents with no other complaints. Patient is referred for possible colovaginal fistula. She states years ago, she did have symptoms such as drainage of stool from the vaginal region. Patient was referred to [facility] and apparently did not require any surgery for this. She states these symptoms did resolve and she has not noticed any vaginal drainage recently. Sometimes however because of her diarrhea, she can not tell for sure whether or not there is any vaginal drainage. There is a family history for Crohn's disease. The patient is scheduled for EGD and colonoscopy with Dr. Ko in a few weeks. SUBJECTIVE: MEDICATIONS: ALLERGIES Current Outpatient Medications Medication Instructions albuterol HFA 90 mcg/act inhaler 2 puffs, Inhalation, Every 6 hours PRN albuterol 2.5 mg, 4 times daily amoxicillin-clavulanate (Augmentin) 875-125 MG tablet 1 tablet, 2 times daily ASPIRIN 81 PO 81 mg, [...] 125 mcg, Oral, Daily before breakfast lisinopril 40 mg, Oral, Daily MAGNESIUM OXIDE 400 PO 400 mg, Daily metFORMIN (GLUCOPHAGE) 500 mg, 2 times daily with meals metoprolol tartrate (LOPRESSOR) 25 mg, Oral, 2 times daily montelukast (SINGULAIR) 10 mg, Oral, Nightly pantoprazole (PROTONIX) 40 mg, Oral, 2 times daily pioglitazone (ACTOS) 15 mg, Oral, Daily Allergies Allergen Reactions Levaquin [Levofloxacin] Itching Sulfa Antibiotics PAST MEDICAL HISTORY: SOCIAL HISTORY SURGICAL HISTORY: Past Medical History: Diagnosis Date Abnormal CXR Lvmym-4-kcntbqrbmmfreeie deficiency 12/09/2023 Atypical mole Chronic obstructive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 Visit Other specified hypothyroidism ([facility]) Relevant Medications levothyroxine (Synthroid, Levoxyl) 125 MCG tablet Gastroesophageal reflux disease without esophagitis Relevant Medications cimetidine (Tagamet) 200 MG tablet pantoprazole (ProtoNix) 40 MG EC tablet Chronic obstructive pulmonary disease ([facility]) Rare use of albuterol, and uses ICS/LABA prn Continues with tobacco Relevant Medications budesonide-formoterol (Symbicort) 160-4.5 MCG/ACT inhaler Coronary artery disease ([facility]) Continue w current meds HTN (hypertension) ([facility]) Please check blood pressure daily and record DASH diet Limit caffeine Take medication as directed Contact office if chest pain, pressure, dizziness, shortness of breath, swelling legs Recommend slow position changes Relevant Medications lisinopril 10 MG tablet metoprolol tartrate (Lopressor) 25 MG tablet Diabetes type 2, controlled ([facility]) - Primary A1c 6.5% Check blood sugars [...] hemoglobin (Hb A1C) docked device (Completed) Hyperlipidemia ([facility]) Relevant Medications atorvastatin (Lipitor) 80 MG tablet 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 The patient has been advised of the risks of continued smoking: stroke, [place], all forms of cancer, lung disease, and [...] diabetes mellitus with diabetic chronic kidney disease ([facility]) Control sugar and bp Chronic kidney disease, stage 2 (mild) Monitor labs periodically Control glucose and blood pressure Zckhy-6-yltzhapimkl deficiency (CMS/HCC) Per pulmonary Abdominal aortic pulsation Relevant Orders Vascular US abdomen/pelvis duplex limited Associated Problem(s): 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 The patient has been advised of the risks of continued smoking: stroke, TN, all forms of cancer, lung disease, and [...] mellitus with diabetic chronic kidney disease (CMS/HCC) Control sugar and bp Associated Problem(s): Chronic kidney disease, stage 2 (mild) Monitor labs periodically Control glucose and blood pressure Associated Problem(s): Yvnxv-8-yjyiogawjci deficiency (CMS/HCC) Per pulmonary documented in this encounter [facility] 07-27-2024 Instructions Veronique Harris NP - 07/27/2024 9:40 AM EDT Get labs and urine Check US abd And fu 2 weeks documented in this encounter [facility] 06-21-2024 History of Present illness Narrative Associated [...] life stressors Associated Problem(s): Coronary artery disease ([facility]) No current symptoms Associated Problem(s): Chronic obstructive [...] no compliance problems. Hypertensive end-organ damage includes CAD/TN. Diabetes She presents for her follow-up diabetic [...] Past Medical History: Diagnosis Date Abnormal CXR Xxwyt-5-uwsguzdoccshtabt deficiency 12/09/2023 Atypical mole Chronic obstructive pulmonary disease ([facility]) Cigarette nicotine dependence with nicotine-induced disorder 12/09/2023 Coronary artery disease ([facility]) Dental infection 12/09/2023 Diabetes type 2, controlled ([facility]) 09/30/2023 Diverticulitis 11/16/2023 Diverticulosis diverticulosis/diverticulitis Elevated alkaline phosphatase level 11/24/2023 Gastroesophageal reflux disease without esophagitis 09/16/2023 Generalized abdominal pain 08/31/2023 HTN (hypertension) ([facility]) Hypothyroidism ([facility]) Other specified hypothyroidism ([facility]) 09/16/2023 Pain, dental Perforated diverticulum 2016 perforated diverticuli Postmenopausal postcoital bleeding 12/09/2023 Seasonal allergic rhinitis due to pollen 12/09/2023 Stage 3a chronic kidney disease (CKD) ([facility]) 12/09/2023 STEMI (ST elevation myocardial infarction) ([facility]) ([facility]) Stress at home 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 [...] nursing note reviewed. Exam conducted with a band splitter present. Constitutional: General: She is not in [...] 25 MG tablet Diabetes type 2, controlled (CMS/HCC) - Primary Check A1c Needs eye exam Fu in 3 months Relevant Medications empagliflozin (Jardiance) 25 MG pioglitazone (Actos) 15 MG tablet Hyperlipidemia (CMS/HCC) Relevant Medications atorvastatin (Lipitor) 80 [...] VAGINITIS (HTRX) documented in this encounter [facility] 04-08-2021 History of Present illness Narrative Cardiac Rehab Initial History and Assessment Fausto Corrigan 1960 04/08/2021 Primary Diagnosis: s/p PTCA Living Will: No On File: N/A Durable Power of Aml Analyst:No Medical History Past Medical History: Diagnosis Date [...] living? *If greater than 5 symptoms listed, social organization professor notified. Cardiac Rehab Pre - Test 1. [...] daily -smoking cessation documented in this encounter [employer] [place] Phone: Evaluation + Plan note No data available for this section [facility] Evaluation note Diagnosis Bacterial vaginosis Unspecified vaginitis and vulvovaginitis documented in this encounter [facility] HealthcareEvaluation note* Diagnosis Controlled type 2 diabetes mellitus without complication, without long-term current use of insulin ([facility])- Primary Type 2 diabetes mellitus with diabetic chronic kidney disease ([facility]) Chronic kidney disease, stage 3a (HCC) ([facility]) Chronic obstructive pulmonary disease, unspecified ([facility]) Zhrmj-0-wjqbidnivdv deficiency ([facility]) Xygtr-7-uqvwvvujqcs deficiency Centrilobular emphysema ([facility]) Primary hypertension ([facility]) Unspecified essential hypertension Coronary artery disease involving [place] coronary artery of [place] heart without angina pectoris ([facility]) Gastroesophageal reflux disease without esophagitis Esophageal reflux Upkou-5-zxjuouzisbonbhls deficiency Microscopic hematuria Current smoker Elevated alkaline phosphatase level Hx of colonoscopy with polypectomy Controlled type 2 diabetes mellitus without complication, without long-term current use of insulin ([facility])- Primary UTI symptoms Acute cystitis without hematuria Vaginal bleeding Other specified noninflammatory disorder of vagina Vaginal discharge Leukorrhea, not specified as infective Mixed hyperlipidemia ([facility]) Mixed hyperlipidemia Chronic obstructive pulmonary disease, unspecified COPD type ([facility]) Gastroesophageal reflux disease without esophagitis Esophageal reflux Other specified hypothyroidism ([facility]) Primary hypertension ([facility]) Unspecified essential hypertension Seasonal allergic rhinitis due to pollen Controlled type 2 diabetes mellitus without complication, without long-term current use of insulin ([facility])- Primary Type 2 diabetes mellitus with diabetic chronic kidney disease ([facility]) Chronic kidney disease, stage 2 (mild) Zdwrs-1-idmihnuqmbw deficiency (CMS/HCC) Mxomb-6-ahilktzzjek deficiency Mixed hyperlipidemia (CMS/HCC) Mixed hyperlipidemia Chronic obstructive pulmonary disease, unspecified COPD type (CMS/HCC) Gastroesophageal reflux disease without esophagitis Esophageal reflux Other specified hypothyroidism (CMS/HCC) Primary hypertension (CMS/HCC) Unspecified essential hypertension Seasonal allergic rhinitis due to pollen 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 Tobacco use disorder Coronary artery disease involving [place] coronary artery of [place] heart without angina pectoris (CMS/HCC) Abdominal aortic pulsation Acute bilateral low back pain without sciatica documented in this encounter [facility] HealthcareEvaluation note* Diagnosis Controlled type 2 diabetes mellitus without complication, without long-term current use of insulin ([facility]HCC)- Primary Type 2 diabetes mellitus with diabetic chronic kidney disease (CMS/HCC) Chronic kidney disease, stage 3a (HCC) ([facility]) Chronic obstructive pulmonary disease, unspecified (CMS/HCC) Fzoqx-9-ksxzfeiteai deficiency ([facility]) Jgceq-3-ouvocmuyrsv deficiency Centrilobular emphysema ([facility]) Primary hypertension ([facility]HCC) Unspecified essential hypertension Coronary artery disease involving [place] coronary artery of [place] heart without angina pectoris (CMS/HCC) Gastroesophageal reflux disease without esophagitis Esophageal reflux Rczur-0-nyilcfqyhitrpzaj deficiency Microscopic hematuria Current smoker Elevated alkaline phosphatase level Hx of colonoscopy with polypectomy Controlled type 2 diabetes mellitus without complication, without long-term current use of insulin ([facility])- Primary UTI symptoms Acute cystitis without hematuria Vaginal bleeding Other specified noninflammatory disorder of vagina Vaginal discharge Leukorrhea, not specified as infective Mixed hyperlipidemia (CMS/HCC) Mixed hyperlipidemia Chronic obstructive pulmonary disease, unspecified COPD type (CMS/HCC) Gastroesophageal reflux disease without esophagitis Esophageal reflux Other specified hypothyroidism (CMS/HCC) Primary hypertension ([facility]) Unspecified essential hypertension Seasonal allergic rhinitis due to pollen Controlled type 2 diabetes mellitus without complication, without long-term current use of insulin ([facility])- Primary Type 2 diabetes mellitus with diabetic chronic kidney disease ([facility]) Chronic kidney disease, stage 2 (mild) Umlvm-0-ireuhdcxvni deficiency (CMS/HCC) Aneed-2-btumpsmmgnf deficiency Mixed hyperlipidemia (CMS/HCC) Mixed hyperlipidemia Chronic obstructive pulmonary disease, unspecified COPD type (CMS/HCC) Gastroesophageal reflux disease without esophagitis Esophageal reflux Other specified hypothyroidism (CMS/HCC) Primary hypertension (CMS/HCC) Unspecified essential hypertension Seasonal allergic rhinitis due to pollen 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 Tobacco use disorder Coronary artery disease involving [place] coronary artery of [place] heart without angina pectoris ([facility]) Abdominal aortic pulsation Acute bilateral low back pain without sciatica Abdominal aortic pulsation- Primary documented in this encounter [facility] HealthcareEvaluation note* Diagnosis Controlled type 2 diabetes mellitus without complication, without long-term current use of insulin ([facility])- Primary Type 2 diabetes mellitus with diabetic chronic kidney disease ([facility]) Chronic kidney disease, stage 3a (HCC) ([facility]) Chronic obstructive pulmonary disease, unspecified ([facility]) Fapiz-5-ulebzvmalic deficiency ([facility]) Rkxgu-5-ezoteojnxet deficiency Centrilobular emphysema ([facility]) Primary hypertension ([facility]) Unspecified essential hypertension Coronary artery disease involving [place] coronary artery of [place] heart without angina pectoris ([facility]) Gastroesophageal reflux disease without esophagitis Esophageal reflux Ffrjv-4-ltkmnsecnacmsruj deficiency Microscopic hematuria Current smoker Elevated alkaline phosphatase level Hx of colonoscopy with polypectomy Controlled type 2 diabetes mellitus without complication, without long-term current use of insulin ([facility])- Primary UTI symptoms Acute cystitis without hematuria Vaginal bleeding Other specified noninflammatory disorder of vagina Vaginal discharge Leukorrhea, not specified as infective Mixed hyperlipidemia ([facility]) Mixed hyperlipidemia Chronic obstructive pulmonary disease, unspecified COPD type ([facility]) Gastroesophageal reflux disease without esophagitis Esophageal reflux Other specified hypothyroidism ([facility]) Primary hypertension ([facility]) Unspecified essential hypertension Seasonal allergic rhinitis due to pollen Controlled type 2 diabetes mellitus without complication, without long-term current use of insulin ([facility])- Primary Type 2 diabetes mellitus with diabetic chronic kidney disease ([facility]) Chronic kidney disease, stage 2 (mild) Fotau-5-rkchkmhisnl deficiency ([facility]) Dvgjm-6-weafftcwata deficiency Mixed hyperlipidemia ([facility]) Mixed hyperlipidemia Chronic obstructive pulmonary disease, unspecified COPD type ([facility]) Gastroesophageal reflux disease without esophagitis Esophageal reflux Other specified hypothyroidism ([facility]) Primary hypertension ([facility]) Unspecified essential hypertension Seasonal allergic rhinitis due to pollen 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 Tobacco use disorder Coronary artery disease involving [place] coronary artery of [place] heart without angina pectoris ([facility]) Abdominal aortic pulsation Acute bilateral low back pain without sciatica Acute bilateral low back pain without sciatica- Primary Cigarette nicotine dependence with nicotine-induced disorder Primary hypertension (CMS/HCC) Unspecified essential hypertension Abdominal aortic pulsation Screening for lung cancer 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 Tobacco use disorder documented in this encounter [facility] HealthcareEvaluation note* Diagnosis Controlled type 2 diabetes mellitus without complication, without long-term current use of insulin (CMS/HCC)- Primary Type 2 diabetes mellitus with diabetic chronic kidney disease (CMS/HCC) Chronic kidney disease, stage 3a (HCC) (CMS/HCC) Chronic obstructive pulmonary disease, unspecified (CMS/HCC) Ieddp-4-vfuohxwbngn deficiency (CMS/HCC) Qgbtc-3-blzqmjedakj deficiency Centrilobular emphysema (CMS/HCC) Primary hypertension ([facility]) Unspecified essential hypertension Coronary artery disease involving [place] coronary artery of [place] heart without angina pectoris ([facility]) Gastroesophageal reflux disease without esophagitis Esophageal reflux Grssi-8-odtsglhgombhtmyy deficiency Microscopic hematuria Current smoker Elevated alkaline phosphatase level Hx of colonoscopy with polypectomy Controlled type 2 diabetes mellitus without complication, without long-term current use of insulin ([facility])- Primary UTI symptoms Acute cystitis without hematuria Vaginal bleeding Other specified noninflammatory disorder of vagina Vaginal discharge Leukorrhea, not specified as infective Mixed hyperlipidemia ([facility]) Mixed hyperlipidemia Chronic obstructive pulmonary disease, unspecified COPD type ([facility]) Gastroesophageal reflux disease without esophagitis Esophageal reflux Other specified hypothyroidism ([facility]) Primary hypertension ([facility]) Unspecified essential hypertension Seasonal allergic rhinitis due to pollen Controlled type 2 diabetes mellitus without complication, without long-term current use of insulin ([facility])- Primary Type 2 diabetes mellitus with diabetic chronic kidney disease ([facility]) Chronic kidney disease, stage 2 (mild) Rvums-7-jjgccqmmehq deficiency ([facility]) Rhnrj-2-hvmyxkdeact deficiency Mixed hyperlipidemia (CMS/HCC) Mixed hyperlipidemia Chronic obstructive pulmonary disease, unspecified COPD type (CMS/HCC) Gastroesophageal reflux disease without esophagitis Esophageal reflux Other specified hypothyroidism (CMS/HCC) Primary hypertension ([facility]) Unspecified essential hypertension Seasonal allergic rhinitis due to pollen 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 Tobacco use disorder Coronary artery disease involving [place] coronary artery of [place] heart without angina pectoris (CMS/HCC) Abdominal aortic pulsation Acute bilateral low back pain without sciatica Acute bilateral low back pain without sciatica- Primary Cigarette nicotine dependence with nicotine-induced disorder Primary hypertension (CMS/HCC) Unspecified essential hypertension Abdominal aortic pulsation Screening for lung cancer 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 Tobacco use disorder Gastroesophageal reflux disease without esophagitis Esophageal reflux documented in this encounter [facility] HealthcareEvaluation note* Diagnosis Bacterial vaginosis- Primary Unspecified vaginitis and vulvovaginitis documented in this encounter [facility] HealthcareEvaluation note* Diagnosis Controlled type 2 diabetes mellitus without complication, without long-term current use of insulin ([facility])- Primary UTI symptoms Acute cystitis without hematuria Vaginal bleeding Other specified noninflammatory disorder of vagina Vaginal discharge Leukorrhea, not specified as infective Mixed hyperlipidemia ([facility]) Mixed hyperlipidemia Chronic obstructive pulmonary disease, unspecified COPD type ([facility]) Gastroesophageal reflux disease without esophagitis Esophageal reflux Other specified hypothyroidism ([facility]) Primary hypertension ([facility]) Unspecified essential hypertension Seasonal allergic rhinitis due to pollen documented in this encounter [facility] HealthcareEvaluation note* Diagnosis Controlled type 2 diabetes mellitus without complication, without long-term current use of insulin ([facility])- Primary Type 2 diabetes mellitus with diabetic chronic kidney disease ([facility]) Chronic kidney disease, stage 3a (HCC) ([facility]) Chronic obstructive pulmonary disease, unspecified ([facility]) Gdsrk-3-pbrwlchefiy deficiency ([facility]) Rwyhw-6-hjkcrdvuiin deficiency Centrilobular emphysema ([facility]) Primary hypertension ([facility]) Unspecified essential hypertension Coronary artery disease involving [place] coronary artery of [place] heart without angina pectoris ([facility]) Gastroesophageal reflux disease without esophagitis Esophageal reflux Nirzw-2-fpzbahsuaksemvzj deficiency Microscopic hematuria Current smoker Elevated alkaline phosphatase level Hx of colonoscopy with polypectomy Controlled type 2 diabetes mellitus without complication, without long-term current use of insulin ([facility])- Primary UTI symptoms Acute cystitis without hematuria Vaginal bleeding Other specified noninflammatory disorder of vagina Vaginal discharge Leukorrhea, not specified as infective Mixed hyperlipidemia ([facility]) Mixed hyperlipidemia Chronic obstructive pulmonary disease, unspecified COPD type ([facility]) Gastroesophageal reflux disease without esophagitis Esophageal reflux Other specified hypothyroidism ([facility]) Primary hypertension ([facility]) Unspecified essential hypertension Seasonal allergic rhinitis due to pollen Controlled type 2 diabetes mellitus without complication, without long-term current use of insulin ([facility])- Primary Type 2 diabetes mellitus with diabetic chronic kidney disease ([facility]) Chronic kidney disease, stage 2 (mild) Tmkqv-7-uomvoseiqpw deficiency (CMS/HCC) Rovna-9-chnzhhxknve deficiency Mixed hyperlipidemia (CMS/HCC) Mixed hyperlipidemia Chronic obstructive pulmonary disease, unspecified COPD type (CMS/HCC) Gastroesophageal reflux disease without esophagitis Esophageal reflux Other specified hypothyroidism (CMS/HCC) Primary hypertension (CMS/HCC) Unspecified essential hypertension Seasonal allergic rhinitis due to pollen 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 Tobacco use disorder Coronary artery disease involving [place] coronary artery of [place] heart without angina pectoris (CMS/HCC) Abdominal aortic [...] associated with type 2 diabetes mellitus (CMS/HCC) Left foot pain Pain in soft tissues of limb documented in this encounter [facility] HealthcareEvaluation note* Diagnosis Controlled type 2 diabetes mellitus without complication, without long-term current use of insulin ([facility]/HCC)- Primary Type 2 diabetes mellitus with diabetic chronic kidney disease (CMS/HCC) Chronic kidney disease, stage 3a (HCC) (CMS/HCC) Chronic obstructive pulmonary disease, unspecified (CMS/HCC) Jinsq-2-hkrfgtrgkqt deficiency (CMS/HCC) Pkdsj-3-xequcoroihl deficiency Centrilobular emphysema (CMS/HCC) Primary hypertension ([facility]/HCC) Unspecified essential hypertension Coronary artery disease involving [place] coronary artery of [place] heart without angina pectoris (CMS/HCC) Gastroesophageal reflux disease without esophagitis Esophageal reflux Clubw-9-pgzeqsvsllosfipo deficiency Microscopic hematuria Current smoker Elevated alkaline phosphatase level Hx of colonoscopy with polypectomy Controlled type 2 diabetes mellitus without complication, without long-term current use of insulin ([facility]/HCC)- Primary UTI symptoms Acute cystitis without hematuria [...] long-term current use of insulin (CMS/HCC)- Primary Type 2 diabetes mellitus with diabetic chronic kidney disease (CMS/HCC) Chronic kidney disease, stage 2 (mild) Iyunv-3-ncstzieywzo deficiency (CMS/HCC) Wxirz-3-tctugmejscf deficiency Mixed hyperlipidemia (CMS/HCC) Mixed hyperlipidemia Chronic obstructive pulmonary disease, unspecified COPD type (CMS/HCC) Gastroesophageal reflux disease without esophagitis Esophageal reflux Other specified hypothyroidism (CMS/HCC) Primary hypertension (CMS/HCC) Unspecified essential hypertension Seasonal allergic rhinitis due to pollen 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 Tobacco use disorder Coronary artery disease involving [place] coronary artery of [place] heart without angina pectoris (CMS/HCC) Abdominal aortic pulsation Acute bilateral low back pain without sciatica Acute bilateral low back pain without sciatica- Primary Cigarette nicotine dependence with nicotine-induced disorder Primary hypertension (CMS/HCC) Unspecified essential hypertension Abdominal aortic pulsation Screening for lung cancer 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 Tobacco use disorder Gastroesophageal reflux disease without esophagitis Esophageal reflux documented in this encounter [facility] HealthcareEvaluation note* Diagnosis Controlled type 2 diabetes mellitus without complication, without long-term current use of insulin (CMS/HCC)- Primary Type 2 diabetes mellitus with diabetic chronic kidney disease (CMS/HCC) Chronic kidney disease, stage 3a (HCC) (CMS/HCC) Chronic obstructive pulmonary disease, unspecified (CMS/HCC) Endbc-4-qismsxvviwl deficiency (CMS/HCC) Zpmvm-8-rmipppwcnwa deficiency Centrilobular emphysema (CMS/HCC) Primary hypertension (CMS/HCC) Unspecified essential hypertension Coronary artery disease involving [place] coronary artery of [place] heart without angina pectoris (CMS/HCC) Gastroesophageal reflux disease without esophagitis Esophageal reflux Xriib-4-ullwwsfuifjxyffx deficiency Microscopic hematuria Current smoker Elevated alkaline [...] long-term current use of insulin (CMS/HCC)- Primary Type 2 diabetes mellitus with diabetic chronic kidney disease (CMS/HCC) Chronic kidney disease, stage 2 (mild) Rpiuq-8-wcxcnbnazfc deficiency (CMS/HCC) Thjtq-8-usjkbyfyvlw deficiency Mixed hyperlipidemia (CMS/HCC) Mixed hyperlipidemia Chronic obstructive pulmonary disease, unspecified COPD type (CMS/HCC) Gastroesophageal reflux disease without esophagitis Esophageal reflux Other specified hypothyroidism (CMS/HCC) Primary hypertension (CMS/HCC) Unspecified essential hypertension Seasonal allergic rhinitis due to pollen 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 Tobacco use disorder Coronary artery disease involving [place] coronary artery of [place] heart without angina pectoris (CMS/HCC) Abdominal aortic pulsation Acute bilateral low back pain without sciatica Acute bilateral low back pain without sciatica- Primary Cigarette nicotine dependence with nicotine-induced disorder Primary hypertension ([facility]/HCC) Unspecified essential hypertension Abdominal aortic pulsation Screening for lung cancer 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 Tobacco use disorder Gastroesophageal reflux disease without esophagitis Esophageal reflux documented in this encounter [facility] HealthcareEvaluation note* Diagnosis Controlled type 2 diabetes mellitus without complication, without long-term current use of insulin ([facility]CC)- Primary Type 2 diabetes mellitus with diabetic chronic kidney disease (CMS/HCC) Chronic kidney disease, stage 3a (HCC) (CMS/HCC) Chronic obstructive pulmonary disease, unspecified (CMS/HCC) Uqzpj-6-puzdvdtrgkk deficiency ([facility]/HCC) Evwhr-6-cltnjueblcl deficiency Centrilobular emphysema (CMS/HCC) Primary hypertension ([facility]/HCC) Unspecified essential hypertension Coronary artery disease involving [place] coronary artery of [place] heart without angina pectoris (CMS/HCC) Gastroesophageal reflux disease without esophagitis Esophageal reflux Vlanh-0-kxxhgrlsliecvmmx deficiency Microscopic hematuria Current smoker Elevated alkaline phosphatase level Hx of colonoscopy with polypectomy Controlled type 2 diabetes mellitus without complication, without long-term current use of insulin ([facility]CC)- Primary UTI symptoms Acute cystitis without hematuria [...] complication, without long-term current use of insulin ([facility]CC)- Primary Type 2 diabetes mellitus with diabetic chronic kidney disease (CMS/HCC) Chronic kidney disease, stage 2 (mild) Oiplw-7-hwkdteaidib deficiency (CMS/HCC) Prjxp-9-qucrrcfgsti deficiency Mixed hyperlipidemia (CMS/HCC) Mixed hyperlipidemia Chronic obstructive pulmonary disease, unspecified COPD type (CMS/HCC) Gastroesophageal reflux disease without esophagitis Esophageal reflux Other specified hypothyroidism (CMS/HCC) Primary hypertension (CMS/HCC) Unspecified essential hypertension Seasonal allergic rhinitis due to pollen 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 Tobacco use disorder Coronary artery disease involving [place] coronary artery of [place] heart without angina pectoris (CMS/HCC) Abdominal aortic pulsation Acute bilateral low back pain without sciatica Acute bilateral low back pain without sciatica- Primary Cigarette nicotine dependence with nicotine-induced disorder Primary hypertension (CMS/HCC) Unspecified essential hypertension Abdominal aortic pulsation Screening for lung cancer 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 Tobacco use disorder Dental infection- Primary documented in this encounter [facility] HealthcareEvaluation note* Diagnosis Controlled type 2 diabetes mellitus without complication, without long-term current use of insulin ([facility]CC)- Primary Type 2 diabetes mellitus with diabetic chronic kidney disease (CMS/HCC) Chronic kidney disease, stage 3a (HCC) (CMS/HCC) Chronic obstructive pulmonary disease, unspecified (CMS/HCC) Inuwp-3-vwtsdybvyrd deficiency (CMS/HCC) Pwhyr-2-afysryefbkt deficiency Centrilobular emphysema (CMS/HCC) Primary hypertension ([facility]/HCC) Unspecified essential hypertension Coronary artery disease involving [place] coronary artery of [place] heart without angina pectoris (CMS/HCC) Gastroesophageal reflux disease without esophagitis Esophageal reflux Rfpjb-8-lkcpsvzlwxjdyjcy deficiency Microscopic hematuria Current smoker Elevated alkaline phosphatase level Hx of colonoscopy with polypectomy Controlled type 2 diabetes mellitus without complication, without long-term current use of insulin ([facility])- Primary UTI symptoms Acute cystitis without hematuria [...] complication, without long-term current use of insulin ([facility]/HCC)- Primary Type 2 diabetes mellitus with diabetic chronic kidney disease (CMS/HCC) Chronic kidney disease, stage 2 (mild) Zoseo-6-eocmzdijyak deficiency (CMS/HCC) Foskc-3-kypapxhckjm deficiency Mixed hyperlipidemia (CMS/HCC) Mixed hyperlipidemia Chronic obstructive pulmonary disease, unspecified COPD type (CMS/HCC) Gastroesophageal reflux disease without esophagitis Esophageal reflux Other specified hypothyroidism (CMS/HCC) Primary hypertension (CMS/HCC) Unspecified essential hypertension Seasonal allergic rhinitis due to pollen 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 Tobacco use disorder Coronary artery disease involving [place] coronary artery of [place] heart without angina pectoris (CMS/HCC) Abdominal aortic pulsation Acute bilateral low back pain without sciatica Acute bilateral low back pain without sciatica- Primary Cigarette nicotine dependence with nicotine-induced disorder Primary hypertension (CMS/HCC) Unspecified essential hypertension Abdominal aortic pulsation Screening for lung cancer 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 Tobacco use disorder UTI symptoms- Primary 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 Tobacco use disorder documented in this encounter [facility] HealthcareEvaluation note* Diagnosis Controlled type 2 diabetes mellitus without complication, without long-term current use of insulin ([facility]/HCC)- Primary Type 2 diabetes mellitus with diabetic chronic kidney disease ([facility]HCC) Chronic kidney disease, stage 3a (HCC) ([facility]/HCC) Chronic obstructive pulmonary disease, unspecified (CMS/HCC) Gxjst-5-efgnqnbofhu deficiency (CMS/HCC) Oogyw-3-hfgclwqbdyr deficiency Centrilobular emphysema (CMS/HCC) Primary hypertension ([facility]/HCC) Unspecified essential hypertension Coronary artery disease involving [place] coronary artery of [place] heart without angina pectoris (CMS/HCC) Gastroesophageal reflux disease without esophagitis Esophageal reflux Mwdcs-1-dhncmdffelobjxro deficiency Microscopic hematuria Current smoker Elevated alkaline phosphatase level Hx of colonoscopy with polypectomy Controlled type 2 diabetes mellitus without complication, without long-term current use of insulin ([facility]HCC)- Primary UTI symptoms Acute cystitis without hematuria [...] complication, without long-term current use of insulin ([facility]CC)- Primary Type 2 diabetes mellitus with diabetic chronic kidney disease (CMS/HCC) Chronic kidney disease, stage 2 (mild) Jgikz-2-kyrmyteznif deficiency (CMS/HCC) Gyokv-1-cuncyyejpvo deficiency Mixed hyperlipidemia (CMS/HCC) Mixed hyperlipidemia Chronic obstructive pulmonary disease, unspecified COPD type (CMS/HCC) Gastroesophageal reflux disease without esophagitis Esophageal reflux Other specified hypothyroidism (CMS/HCC) Primary hypertension (CMS/HCC) Unspecified essential hypertension Seasonal allergic rhinitis due to pollen 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 Tobacco use disorder Coronary artery disease involving [place] coronary artery of [place] heart without angina pectoris (CMS/HCC) Abdominal aortic [...] Abdominal pain, generalized documented in this encounter [facility] HealthcareEvaluation note* Diagnosis Controlled type 2 diabetes mellitus without complication, without long-term current use of insulin ([facility]/HCC)- Primary Type 2 diabetes mellitus with diabetic chronic kidney disease (CMS/HCC) Chronic kidney disease, stage 3a (HCC) ([facility]/HCC) Chronic obstructive pulmonary disease, unspecified (CMS/HCC) Aeuqn-7-opvkswwspiu deficiency (CMS/HCC) Rxmoc-7-qpsqxdbgiku deficiency Centrilobular emphysema (CMS/HCC) Primary hypertension ([facility]/HCC) Unspecified essential hypertension Coronary artery disease involving [place] coronary artery of [place] heart without angina pectoris (CMS/HCC) Gastroesophageal reflux disease without esophagitis Esophageal reflux Ncvkg-9-wuembqtcuxnmwjcs deficiency Microscopic hematuria Current smoker Elevated alkaline phosphatase level Hx of colonoscopy with polypectomy Controlled type 2 diabetes mellitus without complication, without long-term current use of insulin ([facility]/HCC)- Primary UTI symptoms Acute cystitis without hematuria [...] complication, without long-term current use of insulin ([facility]/HCC)- Primary Type 2 diabetes mellitus with diabetic chronic kidney disease (CMS/HCC) Chronic kidney disease, stage 2 (mild) Slvzs-0-flllczypzlc deficiency (CMS/HCC) Oimkd-2-tkhslokdspm deficiency Mixed hyperlipidemia (CMS/HCC) Mixed hyperlipidemia Chronic obstructive pulmonary disease, unspecified COPD type (CMS/HCC) Gastroesophageal reflux disease without esophagitis Esophageal reflux Other specified hypothyroidism (CMS/HCC) Primary hypertension (CMS/HCC) Unspecified essential hypertension Seasonal allergic rhinitis due to pollen 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 Tobacco use disorder Coronary artery disease involving [place] coronary artery of [place] heart without angina pectoris (CMS/HCC) Abdominal aortic [...] without long-term current use of insulin (CMS/HCC) Other specified hypothyroidism (CMS/HCC) Gastroesophageal reflux disease without esophagitis Esophageal reflux Chronic obstructive pulmonary disease, unspecified COPD type (CMS/HCC) documented in this encounter [facility] HealthcareEvaluation note* Diagnosis Controlled type 2 diabetes mellitus without complication, without long-term current use of insulin (CMS/HCC)- Primary Type 2 diabetes mellitus with diabetic chronic kidney disease (CMS/HCC) Chronic kidney disease, stage 3a (HCC) (CMS/HCC) Chronic obstructive pulmonary disease, unspecified (CMS/HCC) Wbtuq-7-mzzjnvibmgh deficiency (CMS/HCC) Uvqmh-1-hreflmmhbtb deficiency Centrilobular emphysema (CMS/HCC) Primary hypertension (CMS/HCC) Unspecified essential hypertension Coronary artery disease involving [place] coronary artery of [place] heart without angina pectoris (CMS/HCC) Gastroesophageal reflux disease without esophagitis Esophageal reflux Epeeu-2-fhenekximdwvhque deficiency Microscopic hematuria Current smoker Elevated alkaline [...] long-term current use of insulin (CMS/HCC)- Primary Type 2 diabetes mellitus with diabetic chronic kidney disease (CMS/HCC) Chronic kidney disease, stage 2 (mild) Jcuvk-1-hchyylbklrm deficiency (CMS/HCC) Nhjmi-6-spvxieeexcd deficiency Mixed hyperlipidemia (CMS/HCC) Mixed hyperlipidemia Chronic obstructive pulmonary disease, unspecified COPD type (CMS/HCC) Gastroesophageal reflux disease without esophagitis Esophageal reflux Other specified hypothyroidism (CMS/HCC) Primary hypertension (CMS/HCC) Unspecified essential hypertension Seasonal allergic rhinitis due to pollen 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 Tobacco use disorder Coronary artery disease involving [place] coronary artery of [place] heart without angina pectoris (CMS/HCC) Abdominal aortic [...] Chronic kidney disease, stage 3a (HCC) (CMS/HCC) Jwjgt-2-nzuvswxyqeq deficiency ([facility]CC) Hjoaf-4-xcfiljptlrx deficiency Type 2 diabetes mellitus with diabetic polyneuropathy ([facility]/HCC) Chronic obstructive pulmonary disease, unspecified COPD type ([facility]CC) Coronary artery disease involving [place] coronary artery of [place] heart without angina pectoris (CMS/HCC) Primary hypertension ([facility]/HCC) Unspecified essential hypertension Gastroesophageal reflux disease without esophagitis Esophageal reflux Controlled type 2 diabetes mellitus without complication, without long-term current use of insulin ([facility]CC) Mixed hyperlipidemia ([facility]) Mixed hyperlipidemia Elevated alkaline phosphatase level Cigarette nicotine dependence with nicotine-induced disorder Vaginal bleeding Other specified noninflammatory disorder of vagina Seasonal allergic rhinitis due to pollen Colovaginal fistula Controlled type 2 diabetes mellitus without complication, without long-term current use of insulin ([facility])- Primary documented in this encounter [facility] HealthcareEvaluation note* Diagnosis Controlled type 2 diabetes mellitus without complication, without long-term current use of insulin- Primary Type 2 diabetes mellitus with diabetic chronic kidney disease (CMS/HCC) Chronic kidney disease, stage 3a (HCC) ([facility]CC) Chronic obstructive pulmonary disease, unspecified Ueppg-0-rrlgixwuwnl deficiency (CMS/HCC) Hvyhj-8-cqxgmyuhshi deficiency Centrilobular emphysema (CMS/HCC) Primary hypertension (CMS/HCC) Unspecified essential hypertension Coronary artery disease involving [place] coronary artery of [place] heart without angina pectoris (CMS/HCC) Gastroesophageal reflux disease without esophagitis Esophageal reflux Ejnyd-4-ydqvzrnkaocyiuss deficiency Microscopic hematuria Current smoker Elevated alkaline [...] (CMS/HCC) Chronic kidney disease, stage 2 (mild) Mvjwl-7-xsmxyjwhbet deficiency (CMS/HCC) Ufkpk-4-ubvtrvwftoq deficiency Mixed hyperlipidemia (CMS/HCC) Mixed hyperlipidemia Chronic obstructive pulmonary disease, unspecified COPD type (CMS/HCC) Gastroesophageal reflux disease without esophagitis Esophageal reflux Other specified hypothyroidism Primary hypertension (CMS/HCC) Unspecified essential hypertension Seasonal allergic rhinitis due to pollen 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 Tobacco use disorder Coronary artery disease involving [place] coronary artery of [place] heart without angina pectoris (CMS/HCC) Abdominal aortic [...] Chronic kidney disease, stage 3a (HCC) (CMS/HCC) Oxytl-7-zxyakhyxzqe deficiency (CMS/HCC) Pyubm-9-apxwmhmillu deficiency Type 2 diabetes mellitus with diabetic polyneuropathy (CMS/HCC) Chronic obstructive pulmonary disease, unspecified COPD type (CMS/HCC) Coronary artery disease involving [place] coronary artery of [place] heart without angina pectoris (CMS/HCC) Primary hypertension (CMS/HCC) Unspecified essential hypertension Gastroesophageal reflux disease without esophagitis Esophageal reflux Controlled type 2 diabetes mellitus without complication, without long-term current use of insulin Mixed hyperlipidemia ([facility]/HCC) Mixed hyperlipidemia Elevated alkaline phosphatase level Cigarette nicotine dependence with nicotine-induced disorder Vaginal bleeding Other specified noninflammatory disorder of vagina Seasonal allergic rhinitis due to pollen Colovaginal fistula Primary hypertension ([facility]/HCC) Unspecified essential hypertension documented in this encounter [facility] HealthcareEvaluation note* Diagnosis Controlled type 2 diabetes mellitus without complication, without long-term current use of insulin- Primary Type 2 diabetes mellitus with diabetic chronic kidney disease ([facility]/HCC) Chronic kidney disease, stage 3a (HCC) ([facility]) Chronic obstructive pulmonary disease, unspecified Vuyrk-1-wlxcqnsgpmy deficiency ([facility]/HCC) Xbnie-1-cjykrwwddqu deficiency Centrilobular emphysema ([facility]) Primary hypertension ([facility]) Unspecified essential hypertension Coronary artery disease involving [place] coronary artery of [place] heart without angina pectoris ([facility]) Gastroesophageal reflux disease without esophagitis Esophageal reflux Bgdxh-9-mbeeszkuzzdutpnf deficiency Microscopic hematuria Current smoker Elevated alkaline phosphatase level Hx of colonoscopy with polypectomy Controlled type 2 diabetes mellitus without complication, without long-term current use of insulin- Primary UTI symptoms Acute cystitis without hematuria Vaginal bleeding Other specified noninflammatory disorder of vagina Vaginal discharge Leukorrhea, not specified as infective Mixed hyperlipidemia ([facility]) Mixed hyperlipidemia Chronic obstructive pulmonary disease, unspecified COPD type ([facility]) Gastroesophageal reflux disease without esophagitis Esophageal reflux Other specified hypothyroidism Primary hypertension ([facility]) Unspecified essential hypertension Seasonal allergic rhinitis due to pollen Controlled type 2 diabetes mellitus without complication, without long-term current use of insulin- Primary Type 2 diabetes mellitus with diabetic chronic kidney disease ([facility]) Chronic kidney disease, stage 2 (mild) Cayzb-6-vmwnbzxehlq deficiency ([facility]CC) Kavvw-6-gubtkpvvarp deficiency Mixed hyperlipidemia ([facility]) Mixed hyperlipidemia Chronic obstructive pulmonary disease, unspecified COPD type ([facility]) Gastroesophageal reflux disease without esophagitis Esophageal reflux Other specified hypothyroidism Primary hypertension ([facility]) Unspecified essential hypertension Seasonal allergic rhinitis due to pollen 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 Tobacco use disorder Coronary artery disease involving [place] coronary artery of [place] heart without angina pectoris ([facility]) Abdominal aortic pulsation Acute bilateral [...] Chronic kidney disease, stage 3a (HCC) (CMS/HCC) Quuby-0-bstpxqzmcrs deficiency ([facility]) Jxmud-4-sdhimzxriys deficiency Type 2 diabetes mellitus with diabetic polyneuropathy (CMS/HCC) Chronic obstructive pulmonary disease, unspecified COPD type (CMS/HCC) Coronary artery disease involving [place] coronary artery of [place] heart without angina pectoris (CMS/HCC) Primary hypertension ([facility]/HCC) Unspecified essential hypertension Gastroesophageal reflux disease without esophagitis Esophageal reflux Controlled type 2 diabetes mellitus without complication, without long-term current use of insulin Mixed hyperlipidemia ([facility]/HCC) Mixed hyperlipidemia Elevated alkaline phosphatase level Cigarette nicotine dependence with nicotine-induced disorder Vaginal bleeding Other specified noninflammatory disorder of vagina Seasonal allergic rhinitis due to pollen Colovaginal fistula Colovaginal fistula- Primary Cigarette nicotine dependence with nicotine-induced disorder Type 2 diabetes mellitus with diabetic polyneuropathy, without long-term current use of insulin ([facility]) Primary hypertension ([facility]/HCC) Unspecified essential hypertension Chronic kidney disease, stage 3a (HCC) ([facility]/HCC) Type 2 diabetes mellitus with chronic kidney disease, without long-term current use of insulin, unspecified CKD stage ([facility]) Gastroesophageal reflux disease without esophagitis Esophageal reflux Mixed hyperlipidemia ([facility]/HCC) Mixed hyperlipidemia Chronic obstructive pulmonary disease, unspecified COPD type ([facility]/HCC) Other specified hypothyroidism Seasonal allergic rhinitis due to pollen documented in this encounter [facility] HealthcareEvaluation note* Diagnosis Controlled type 2 diabetes mellitus without complication, without long-term current use of insulin- Primary Type 2 diabetes mellitus with diabetic chronic kidney disease (CMS/HCC) Chronic kidney disease, stage 3a (HCC) ([facility]/HCC) Chronic obstructive pulmonary disease, unspecified Mkrwp-9-lclxfyazkzq deficiency ([facility]/HCC) Imxfd-2-tmibrymtozl deficiency Centrilobular emphysema (CMS/HCC) Primary hypertension ([facility]/HCC) Unspecified essential hypertension Coronary artery disease involving [place] coronary artery of [place] heart without angina pectoris ([facility]/HCC) Gastroesophageal reflux disease without esophagitis Esophageal reflux Modro-0-ozaetxkdpjxqwvsg deficiency Microscopic hematuria Current smoker Elevated alkaline phosphatase level Hx of colonoscopy with polypectomy Controlled type 2 diabetes mellitus without complication, without long-term current use of insulin- Primary UTI symptoms Acute cystitis without hematuria Vaginal bleeding Other specified noninflammatory disorder of vagina Vaginal discharge Leukorrhea, not specified as infective Mixed hyperlipidemia ([facility]/HCC) Mixed hyperlipidemia Chronic obstructive pulmonary disease, unspecified COPD type ([facility]) Gastroesophageal reflux disease without esophagitis Esophageal reflux Other specified hypothyroidism Primary hypertension ([facility]) Unspecified essential hypertension Seasonal allergic rhinitis due to pollen Controlled type 2 diabetes mellitus without complication, without long-term current use of insulin- Primary Type 2 diabetes mellitus with diabetic chronic kidney disease ([facility]) Chronic kidney disease, stage 2 (mild) Zyqai-6-abwoknequmv deficiency ([facility]) Duqxu-7-chnecyspwhp deficiency Mixed hyperlipidemia ([facility]) Mixed hyperlipidemia Chronic obstructive pulmonary disease, unspecified COPD type ([facility]) Gastroesophageal reflux disease without esophagitis Esophageal reflux Other specified hypothyroidism Primary hypertension ([facility]) Unspecified essential hypertension Seasonal allergic rhinitis due to pollen 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 Tobacco use disorder Coronary artery disease involving [place] coronary artery of [place] heart without angina pectoris ([facility]) Abdominal aortic pulsation Acute bilateral low back pain without sciatica Acute bilateral low back pain without sciatica- Primary Cigarette nicotine dependence with nicotine-induced disorder Primary hypertension ([facility]) Unspecified essential hypertension Abdominal aortic pulsation Screening for lung cancer 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 Tobacco use disorder UTI symptoms- Primary 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 Tobacco use disorder Lower abdominal pain- Primary Abdominal pain, other specified site Type 2 diabetes mellitus with diabetic chronic kidney disease ([facility]/HCC) Chronic kidney disease, stage 3a (HCC) ([facility]) Pznjd-3-tjqhhnaqetl deficiency ([facility]/HCC) Jafvu-6-whjkrgdpivy deficiency Type 2 diabetes mellitus with diabetic polyneuropathy ([facility]) Chronic obstructive pulmonary disease, unspecified COPD type ([facility]/HCC) Coronary artery disease involving [place] coronary artery of [place] heart without angina pectoris ([facility]) Primary hypertension ([facility]) Unspecified essential hypertension Gastroesophageal reflux disease without esophagitis Esophageal reflux Controlled type 2 diabetes mellitus without complication, without long-term current use of insulin Mixed hyperlipidemia ([facility]) Mixed hyperlipidemia Elevated alkaline phosphatase level Cigarette nicotine dependence with nicotine-induced disorder Vaginal bleeding Other specified noninflammatory disorder of vagina Seasonal allergic rhinitis due to pollen Colovaginal fistula Colovaginal fistula- Primary Cigarette nicotine dependence with nicotine-induced disorder Type 2 diabetes mellitus with diabetic polyneuropathy, without long-term current use of insulin ([facility]) Primary hypertension ([facility]) Unspecified essential hypertension Chronic kidney disease, stage 3a (HCC) ([facility]) Type 2 diabetes mellitus with chronic kidney disease, without long-term current use of insulin, unspecified CKD stage ([facility]) Gastroesophageal reflux disease without esophagitis Esophageal reflux Mixed hyperlipidemia ([facility]/HCC) Mixed hyperlipidemia Chronic obstructive pulmonary disease, unspecified COPD type ([facility]/HCC) Other specified hypothyroidism Seasonal allergic rhinitis due to pollen Onychodystrophy- Primary Other specified disease of nail Onychomycosis Dermatophytosis of nail Diabetic polyneuropathy associated with type 2 diabetes mellitus ([facility]) documented in this encounter [facility] HealthcareEvaluation note* Diagnosis Controlled type 2 diabetes mellitus without complication, without long-term current use of insulin- Primary Type 2 diabetes mellitus with diabetic chronic kidney disease ([facility]/HCC) Chronic kidney disease, stage 3a (HCC) ([facility]) Chronic obstructive pulmonary disease, unspecified Nrxit-5-vtcikovvifl deficiency ([facility]/HCC) Qeuvw-5-cxbnaoepaka deficiency Centrilobular emphysema ([facility]) Primary hypertension ([facility]) Unspecified essential hypertension Coronary artery disease involving [place] coronary artery of [place] heart without angina pectoris ([facility]) Gastroesophageal reflux disease without esophagitis Esophageal reflux Heuug-5-qpbsqldayxgjwxpt deficiency Microscopic hematuria Current smoker Elevated alkaline phosphatase level Hx of colonoscopy with polypectomy Controlled type 2 diabetes mellitus without complication, without long-term current use of insulin- Primary UTI symptoms Acute cystitis without hematuria Vaginal bleeding Other specified noninflammatory disorder of vagina Vaginal discharge Leukorrhea, not specified as infective Mixed hyperlipidemia ([facility]/HCC) Mixed hyperlipidemia Chronic obstructive pulmonary disease, unspecified COPD type ([facility]/HCC) Gastroesophageal reflux disease without esophagitis Esophageal reflux Other specified hypothyroidism Primary hypertension ([facility]) Unspecified essential hypertension Seasonal allergic rhinitis due to pollen Controlled type 2 diabetes mellitus without complication, without long-term current use of insulin- Primary Type 2 diabetes mellitus with diabetic chronic kidney disease ([facility]/HCC) Chronic kidney disease, stage 2 (mild) Pitlr-9-hzqikmfwrmw deficiency ([facility]/HCC) Olnhb-6-tihwgdhcygy deficiency Mixed hyperlipidemia (CMS/HCC) Mixed hyperlipidemia Chronic obstructive pulmonary disease, unspecified COPD type (CMS/HCC) Gastroesophageal reflux disease without esophagitis Esophageal reflux Other specified hypothyroidism Primary hypertension ([facility]/HCC) Unspecified essential hypertension Seasonal allergic rhinitis due to pollen 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 Tobacco use disorder Coronary artery disease involving [place] coronary artery of [place] heart without angina pectoris (CMS/HCC) Abdominal aortic pulsation Acute bilateral low back pain without sciatica Acute bilateral low back pain without sciatica- Primary Cigarette nicotine dependence with nicotine-induced disorder Primary hypertension ([facility]/HCC) Unspecified essential hypertension Abdominal aortic pulsation Screening for lung cancer 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 Tobacco use disorder UTI symptoms- Primary 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 Tobacco use disorder Lower abdominal pain- Primary Abdominal pain, other specified site Type 2 diabetes mellitus with diabetic chronic kidney disease ([facility]/HCC) Chronic kidney disease, stage 3a (HCC) ([facility]/HCC) Xgobr-7-rhekourtqhw deficiency ([facility]) Akuoq-0-evzuqlcgboq deficiency Type 2 diabetes mellitus with diabetic polyneuropathy ([facility]) Chronic obstructive pulmonary disease, unspecified COPD type ([facility]/HCC) Coronary artery disease involving [place] coronary artery of [place] heart without angina pectoris ([facility]/HCC) Primary hypertension ([facility]/HCC) Unspecified essential hypertension Gastroesophageal reflux disease without esophagitis Esophageal reflux Controlled type 2 diabetes mellitus without complication, without long-term current use of insulin Mixed hyperlipidemia ([facility]) Mixed hyperlipidemia Elevated alkaline phosphatase level Cigarette nicotine dependence with nicotine-induced disorder Vaginal bleeding Other specified noninflammatory disorder of vagina Seasonal allergic rhinitis due to pollen Colovaginal fistula Colovaginal fistula- Primary Cigarette nicotine dependence with nicotine-induced disorder Type 2 diabetes mellitus with diabetic polyneuropathy, without long-term current use of insulin ([facility]) Primary hypertension ([facility]/HCC) Unspecified essential hypertension Chronic kidney disease, stage 3a (HCC) ([facility]) Type 2 diabetes mellitus with chronic kidney disease, without long-term current use of insulin, unspecified CKD stage ([facility]) Gastroesophageal reflux disease without esophagitis Esophageal reflux Mixed hyperlipidemia ([facility]/HCC) Mixed hyperlipidemia Chronic obstructive pulmonary disease, unspecified COPD type ([facility]/HCC) Other specified hypothyroidism Seasonal allergic rhinitis due to pollen Chronic obstructive pulmonary disease, unspecified COPD type (CMS/HCC)- Primary documented in this encounter [facility] HealthcareEvaluation note* Diagnosis Controlled type 2 diabetes mellitus without complication, without long-term current use of insulin (HCC)- Primary Type 2 diabetes mellitus with diabetic chronic kidney disease (HCC) Chronic kidney disease, stage 3a (CMS-HCC) Chronic obstructive pulmonary disease, unspecified (HCC) Wfrwl-1-rlqginclygw deficiency (HCC) Ynypm-6-xuhfqssizza deficiency Centrilobular emphysema (HCC) Primary hypertension Unspecified essential hypertension Coronary artery disease involving [place] coronary artery of [place] heart without angina pectoris Gastroesophageal reflux disease without esophagitis Esophageal reflux Ssbpf-5-crvtuwbafzkdbzpp deficiency Microscopic hematuria Current smoker Elevated alkaline [...] (HCC) Chronic kidney disease, stage 2 (mild) Vabwo-0-jqkassfvdxa deficiency (HCC) Rxmjt-0-uufpairxeqs deficiency Mixed hyperlipidemia Mixed hyperlipidemia Chronic obstructive pulmonary disease, unspecified COPD type (HCC) Gastroesophageal reflux disease without esophagitis Esophageal reflux Other specified hypothyroidism Primary hypertension Unspecified essential hypertension Seasonal allergic rhinitis due to pollen 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 Tobacco use disorder Coronary artery disease involving [place] coronary artery of [place] heart without angina pectoris Abdominal aortic pulsation [...] (HCC) Chronic kidney disease, stage 3a (CMS-HCC) Mhjow-3-svsvphmejum deficiency (HCC) Dwnfr-4-imrzisavqwo deficiency Type 2 diabetes mellitus with diabetic polyneuropathy (HCC) Chronic obstructive pulmonary disease, unspecified COPD type (HCC) Coronary artery disease involving [place] coronary artery of [place] heart without angina pectoris Primary hypertension Unspecified [...] Unspecified essential hypertension documented in this encounter [facility] HealthcareEvaluation note* Diagnosis Controlled type 2 diabetes mellitus without complication, without long-term current use of insulin (HCC)- Primary Type 2 diabetes mellitus with diabetic chronic kidney disease (HCC) Chronic kidney disease, stage 3a (CMS-HCC) Chronic obstructive pulmonary disease, unspecified (HCC) Gakrv-7-uhndqryxgjy deficiency (HCC) Drpji-2-mwluhvrnbrx deficiency Centrilobular emphysema (HCC) Primary hypertension Unspecified essential hypertension Coronary artery disease involving [place] coronary artery of [place] heart without angina pectoris Gastroesophageal reflux disease without esophagitis Esophageal reflux Luxas-6-fcpkthdnniupfpyc deficiency Microscopic hematuria Current smoker Elevated alkaline [...] (HCC) Chronic kidney disease, stage 2 (mild) Tbgjl-9-ncygzzinfjn deficiency (HCC) Uipaw-2-riinlgahojh deficiency Mixed hyperlipidemia Mixed hyperlipidemia Chronic obstructive pulmonary disease, unspecified COPD type (HCC) Gastroesophageal reflux disease without esophagitis Esophageal reflux Other specified hypothyroidism Primary hypertension Unspecified essential hypertension Seasonal allergic rhinitis due to pollen 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 Tobacco use disorder Coronary artery disease involving [place] coronary artery of [place] heart without angina pectoris Abdominal aortic pulsation [...] (HCC) Chronic kidney disease, stage 3a (CMS-HCC) Gysbv-3-wsdhxwbwnzo deficiency (HCC) Vhrcq-7-vmspdtcjgkg deficiency Type 2 diabetes mellitus with diabetic polyneuropathy (HCC) Chronic obstructive pulmonary disease, unspecified COPD type (HCC) Coronary artery disease involving [place] coronary artery of [place] heart without angina pectoris Primary hypertension Unspecified [...] Unspecified essential hypertension Coronary artery disease involving [place] coronary artery of [place] heart without angina pectoris Vaginal bleeding Other specified noninflammatory disorder of vagina Chronic kidney disease, stage 3a (CMS-HCC) Medical non-compliance Breast cancer screening by mammogram Cigarette nicotine dependence with nicotine-induced disorder Other specified hypothyroidism documented in this encounter [facility] HealthcareEvaluation note* Diagnosis Controlled type 2 diabetes mellitus without complication, without long-term current use of insulin (HCC)- Primary Type 2 diabetes mellitus with diabetic chronic kidney disease (HCC) Chronic kidney disease, stage 3a (CMS-HCC) Chronic obstructive pulmonary disease, unspecified (HCC) Ffhcs-6-ezvhltwnyge deficiency (HCC) Wekwq-4-olktiosadka deficiency Centrilobular emphysema (HCC) Primary hypertension Unspecified essential hypertension Coronary artery disease involving [place] coronary artery of [place] heart without angina pectoris Gastroesophageal reflux disease without esophagitis Esophageal reflux Nvloi-8-ccciuqrrkwykkmsc deficiency Microscopic hematuria Current smoker Elevated alkaline [...] (HCC) Chronic kidney disease, stage 2 (mild) Xjhap-8-qemnvhmwcii deficiency (HCC) Ncgkb-3-vspikvnwase deficiency Mixed hyperlipidemia Mixed hyperlipidemia Chronic obstructive pulmonary disease, unspecified COPD type (HCC) Gastroesophageal reflux disease without esophagitis Esophageal reflux Other specified hypothyroidism Primary hypertension Unspecified essential hypertension Seasonal allergic rhinitis due to pollen 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 Tobacco use disorder Coronary artery disease involving [place] coronary artery of [place] heart without angina pectoris Abdominal aortic pulsation [...] (HCC) Chronic kidney disease, stage 3a (CMS-HCC) Pteqw-0-rywplbuoyxb deficiency (HCC) Gzgfj-9-guhyhoncwyq deficiency Type 2 diabetes mellitus with diabetic polyneuropathy (HCC) Chronic obstructive pulmonary disease, unspecified COPD type (HCC) Coronary artery disease involving [place] coronary artery of [place] heart without angina pectoris Primary hypertension Unspecified [...] Unspecified essential hypertension Coronary artery disease involving [place] coronary artery of [place] heart without angina pectoris Vaginal bleeding Other [...] deficiency Hypokalemia Hypopotassemia documented in this encounter [facility] HealthcareEvaluation note* Diagnosis Controlled type 2 diabetes mellitus without complication, without long-term current use of insulin (HCC)- Primary Type 2 diabetes mellitus with diabetic chronic kidney disease (HCC) Chronic kidney disease, stage 3a ([facility]-HCC) Chronic obstructive pulmonary disease, unspecified (HCC) Ehwre-9-bzfdbqjhsaw deficiency (HCC) Notic-1-bpbdroarshq deficiency Centrilobular emphysema (HCC) Primary hypertension Unspecified essential hypertension Coronary artery disease involving [place] coronary artery of [place] heart without angina pectoris Gastroesophageal reflux disease without esophagitis Esophageal reflux [place]-5-jkqbyyazhubyxyuj deficiency Microscopic hematuria Current smoker Elevated alkaline [...] (HCC) Chronic kidney disease, stage 2 (mild) Nokki-8-fbhcmhzodnr deficiency (HCC) Uxisq-2-mfbbskoagkr deficiency Mixed hyperlipidemia Mixed hyperlipidemia Chronic obstructive pulmonary disease, unspecified COPD type (HCC) Gastroesophageal reflux disease without esophagitis Esophageal reflux Other specified hypothyroidism Primary hypertension Unspecified essential hypertension Seasonal allergic rhinitis due to pollen 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 Tobacco use disorder Coronary artery disease involving [place] coronary artery of [place] heart without angina pectoris Abdominal aortic pulsation [...] (HCC) Chronic kidney disease, stage 3a (CMS-HCC) Ujsxt-0-mjhiuloaxeh deficiency (HCC) Mjihq-7-wkyompfvqod deficiency Type 2 diabetes mellitus with diabetic polyneuropathy (HCC) Chronic obstructive pulmonary disease, unspecified COPD type (HCC) Coronary artery disease involving [place] coronary artery of [place] heart without angina pectoris Primary hypertension Unspecified [...] Unspecified essential hypertension Coronary artery disease involving [place] coronary artery of [place] heart without angina pectoris Vaginal bleeding Other specified noninflammatory disorder of vagina Chronic kidney disease, stage 3a ([facility]) Medical non-compliance Breast cancer screening by mammogram Cigarette nicotine dependence with nicotine-induced disorder Other specified hypothyroidism Microscopic hematuria- Primary Colovaginal fistula Elevated alkaline phosphatase level documented in this encounter [facility] HealthcareEvaluation note* Diagnosis Controlled type 2 diabetes mellitus without complication, without long-term current use of insulin (HCC)- Primary Type 2 diabetes mellitus with diabetic chronic kidney disease (HCC) Chronic kidney disease, stage 3a (CMS-HCC) Chronic obstructive pulmonary disease, unspecified (HCC) Bqwxy-1-iovesdgubdq deficiency (HCC) Ykvhg-8-wovvhrhqxey deficiency Centrilobular emphysema (HCC) Primary hypertension Unspecified essential hypertension Coronary artery disease involving [place] coronary artery of [place] heart without angina pectoris Gastroesophageal reflux disease without esophagitis Esophageal reflux Gyelm-7-yyqygjpezdqqjagv deficiency Microscopic hematuria Current smoker Elevated alkaline [...] (HCC) Chronic kidney disease, stage 2 (mild) Pwkxn-6-krcojipkgqa deficiency (HCC) Qzyjt-4-prxmirkhwly deficiency Mixed hyperlipidemia Mixed hyperlipidemia Chronic obstructive pulmonary disease, unspecified COPD type (HCC) Gastroesophageal reflux disease without esophagitis Esophageal reflux Other specified hypothyroidism Primary hypertension Unspecified essential hypertension Seasonal allergic rhinitis due to pollen 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 Tobacco use disorder Coronary artery disease involving [place] coronary artery of [place] heart without angina pectoris Abdominal aortic pulsation [...] disease (HCC) Chronic kidney disease, stage 3a ([facility]-HCC) Npfuj-9-mldfafiiwzs deficiency (HCC) Uquwt-4-otlquqctovu deficiency Type 2 diabetes mellitus with diabetic polyneuropathy (HCC) Chronic obstructive pulmonary disease, unspecified COPD type (HCC) Coronary artery disease involving [place] coronary artery of [place] heart without angina pectoris Primary hypertension Unspecified [...] Unspecified essential hypertension Coronary artery disease involving [place] coronary artery of [place] heart without angina pectoris Vaginal bleeding Other specified noninflammatory disorder of vagina Chronic kidney disease, stage 3a (CMS-HCC) Medical non-compliance Breast cancer screening by mammogram Cigarette nicotine dependence with nicotine-induced disorder Other specified hypothyroidism Gastroesophageal reflux disease without esophagitis- Primary Esophageal reflux documented in this encounter [facility] HealthcareEvaluation note* Diagnosis Controlled type 2 diabetes mellitus without complication, without long-term current use of insulin (HCC)- Primary Type 2 diabetes mellitus with diabetic chronic kidney disease (HCC) Chronic kidney disease, stage 3a (CMS-HCC) Chronic obstructive pulmonary disease, unspecified (HCC) Ebppu-9-dqbqsufbhrt deficiency (HCC) Pvrju-1-osoeafmgxno deficiency Centrilobular emphysema (HCC) Primary hypertension Unspecified essential hypertension Coronary artery disease involving [place] coronary artery of [place] heart without angina pectoris Gastroesophageal reflux disease without esophagitis Esophageal reflux Wzkxf-2-ypzpcokilreivpdh deficiency Microscopic hematuria Current smoker Elevated alkaline [...] (HCC) Chronic kidney disease, stage 2 (mild) Fbeun-4-ugwxqdxnhjd deficiency (HCC) Oignf-6-fzswqhmxdgw deficiency Mixed hyperlipidemia Mixed hyperlipidemia Chronic obstructive pulmonary disease, unspecified COPD type (HCC) Gastroesophageal reflux disease without esophagitis Esophageal reflux Other specified hypothyroidism Primary hypertension Unspecified essential hypertension Seasonal allergic rhinitis due to pollen 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 Tobacco use disorder Coronary artery disease involving white [place] coronary artery of [place] heart without angina pectoris Abdominal aortic pulsation [...] disease (HCC) Chronic kidney disease, stage 3a ([facility]) Vpeli-2-swjyahoxvjl deficiency (HCC) Rvjcw-9-mtugvjvqapt deficiency Type 2 diabetes mellitus with diabetic polyneuropathy (HCC) Chronic obstructive pulmonary disease, unspecified COPD type (HCC) Coronary artery disease involving [place] coronary artery of [place] heart without angina pectoris Primary hypertension Unspecified [...] Unspecified essential hypertension Coronary artery disease involving [place] coronary artery of [place] heart without angina pectoris Vaginal bleeding Other specified noninflammatory disorder of vagina Chronic kidney disease, stage 3a ([facility]) Medical non-compliance Breast cancer screening by mammogram Cigarette nicotine dependence with nicotine-induced disorder Other specified hypothyroidism Gastroesophageal reflux disease without esophagitis- Primary Esophageal reflux Nausea and vomiting, unspecified vomiting type documented in this encounter [facility] HealthcareEvaluation note* Diagnosis Controlled type 2 diabetes mellitus without complication, without long-term current use of insulin (HCC)- Primary Type 2 diabetes mellitus with diabetic chronic kidney disease (HCC) Chronic kidney disease, stage 3a (CMS-HCC) Chronic obstructive pulmonary disease, unspecified (HCC) Sfsgq-0-bzpqcahlscj deficiency (HCC) Njrxg-6-shgxjfajwqs deficiency Centrilobular emphysema (HCC) Primary hypertension Unspecified essential hypertension Coronary artery disease involving [place] coronary artery of [place] heart without angina pectoris Gastroesophageal reflux disease without esophagitis Esophageal reflux Qvoxc-2-tpkzbsvmatskyvhg deficiency Microscopic hematuria Current smoker Elevated alkaline [...] (HCC) Chronic kidney disease, stage 2 (mild) Xntcy-5-wrvplsxzfma deficiency (HCC) Bejzy-4-fejsluwhbiq deficiency Mixed hyperlipidemia Mixed hyperlipidemia Chronic obstructive pulmonary disease, unspecified COPD type (HCC) Gastroesophageal reflux disease without esophagitis Esophageal reflux Other specified hypothyroidism Primary hypertension Unspecified essential hypertension Seasonal allergic rhinitis due to pollen 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 Tobacco use disorder Coronary artery disease involving [place] coronary artery of [place] heart without angina pectoris Abdominal aortic pulsation [...] (HCC) Chronic kidney disease, stage 3a (CMS-HCC) Pmzmf-7-ylklylnhelt deficiency (HCC) Clzpc-0-qtgqtfduflo deficiency Type 2 diabetes mellitus with diabetic polyneuropathy (HCC) Chronic obstructive pulmonary disease, unspecified COPD type (HCC) Coronary artery disease involving [place] coronary artery of [place] heart without angina pectoris Primary hypertension Unspecified [...] Unspecified essential hypertension Coronary artery disease involving [place] coronary artery of [place] heart without angina pectoris Vaginal bleeding Other specified noninflammatory disorder of vagina Chronic kidney disease, stage 3a (CMS-HCC) Medical non-compliance Breast cancer screening by mammogram Cigarette nicotine dependence with nicotine-induced disorder Other specified hypothyroidism Chronic obstructive pulmonary disease, unspecified COPD type (HCC)- Primary Hypoxia Hypoxemia documented in this encounter [facility] HealthcareEvaluation note* Diagnosis Onset Date Resolution Status Admit Date Diarrhea acute May 18, 2 025 10:09am [facility] Work Phone: Evaluation note* Diagnosis Controlled type 2 diabetes mellitus without complication, without long-term current use of insulin (HCC)- Primary Type 2 diabetes mellitus with diabetic chronic kidney disease (HCC) Chronic kidney disease, stage 3a (CMS-HCC) Chronic obstructive pulmonary disease, unspecified (HCC) Ydiku-5-nqoyttpgsso deficiency (HCC) Tdleb-0-csnsscufykx deficiency Centrilobular emphysema (HCC) Primary hypertension Unspecified essential hypertension Coronary artery disease involving [place] coronary artery of [place] heart without angina pectoris Gastroesophageal reflux disease without esophagitis Esophageal reflux Kimvz-4-eyxzpkekjlfgjjsd deficiency Microscopic hematuria Current smoker Elevated alkaline [...] (HCC) Chronic kidney disease, stage 2 (mild) Fadlb-7-jferbhebehs deficiency (HCC) Zwiil-3-njmatulgtem deficiency Mixed hyperlipidemia Mixed hyperlipidemia Chronic obstructive pulmonary disease, unspecified COPD type (HCC) Gastroesophageal reflux disease without esophagitis Esophageal reflux Other specified hypothyroidism Primary hypertension Unspecified essential hypertension Seasonal allergic rhinitis due to pollen 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 Tobacco use disorder Coronary artery disease involving [place] coronary artery of [place] heart without angina pectoris Abdominal aortic pulsation [...] (HCC) Chronic kidney disease, stage 3a (CMS-HCC) Hbwmh-9-dahactrzgeb deficiency (HCC) Grblf-6-snarubkxxrw deficiency Type 2 diabetes mellitus with diabetic polyneuropathy (HCC) Chronic obstructive pulmonary disease, unspecified COPD type (HCC) Coronary artery disease involving [place] coronary artery of [place] heart without angina pectoris Primary hypertension Unspecified [...] essential hypertension Chronic kidney disease, stage 3a ([facility]) Type 2 diabetes mellitus with chronic kidney [...] Unspecified essential hypertension Coronary artery disease involving [place] coronary artery of [place] heart without angina pectoris Vaginal bleeding Other specified noninflammatory disorder of vagina Chronic kidney disease, stage 3a ([facility]) Medical non-compliance Breast cancer screening by mammogram Cigarette nicotine dependence with nicotine-induced disorder Other specified hypothyroidism Colovaginal fistula- Primary Generalized abdominal pain Abdominal pain, generalized Family history of Crohn's disease Family history of other digestive disorders documented in this encounter [facility] HealthcareEvaluation note* Diagnosis Controlled type 2 diabetes mellitus without complication, without long-term current use of insulin (HCC)- Primary Type 2 diabetes mellitus with diabetic chronic kidney disease (HCC) Chronic kidney disease, stage 3a (CMS-HCC) Chronic obstructive pulmonary disease, unspecified (HCC) Psnlq-9-sedesayolux deficiency (HCC) Gejvv-0-ectntsvhohk deficiency Centrilobular emphysema (HCC) Primary hypertension Unspecified essential hypertension Coronary artery disease involving [place] coronary artery of [place] heart without angina pectoris Gastroesophageal reflux disease without esophagitis Esophageal reflux Ugeqz-9-ofrkzkcunzlspryc deficiency Microscopic hematuria Current smoker Elevated alkaline [...] (HCC) Chronic kidney disease, stage 2 (mild) Cfjxv-2-ekmkchgvmir deficiency (HCC) Kuwyu-5-mvdrmhjhdkw deficiency Mixed hyperlipidemia Mixed hyperlipidemia Chronic obstructive pulmonary disease, unspecified COPD type (HCC) Gastroesophageal reflux disease without esophagitis Esophageal reflux Other specified hypothyroidism Primary hypertension Unspecified essential hypertension Seasonal allergic rhinitis due to pollen 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 Tobacco use disorder Coronary artery disease involving [place] coronary artery of [place] heart without angina pectoris Abdominal aortic pulsation [...] (HCC) Chronic kidney disease, stage 3a (CMS-HCC) Nrser-4-bzyvchxzqtr deficiency (HCC) Uxdxk-6-zoenzbefzfs deficiency Type 2 diabetes mellitus with diabetic polyneuropathy (HCC) Chronic obstructive pulmonary disease, unspecified COPD type (HCC) Coronary artery disease involving [place] coronary artery of [place] heart without angina pectoris Primary hypertension Unspecified [...] Unspecified essential hypertension Coronary artery disease involving [place] coronary artery of [place] heart without angina pectoris Vaginal bleeding Other specified noninflammatory disorder of vagina Chronic kidney disease, stage 3a (CMS-HCC) Medical non-compliance Breast cancer screening by mammogram Cigarette nicotine dependence with nicotine-induced disorder Other specified hypothyroidism ILA (acute kidney injury)- Primary Cigarette nicotine dependence with nicotine-induced disorder Generalized abdominal pain Abdominal pain, generalized Hypoxia Hypoxemia Primary hypertension Unspecified essential hypertension Nausea and vomiting, unspecified vomiting type Gastroesophageal reflux disease without esophagitis Esophageal reflux Type 2 diabetes mellitus with chronic kidney disease, without long-term current use of insulin, unspecified CKD stage (HCC) Hypokalemia Hypopotassemia documented in this encounter [facility] Discharge instructions No data available for this section [facility] InstructionsNot on filedocumented in this encounter [facility] No data available for this section [facility] Reason for referral (narrative)No reason for referral information [facility] Work Phone: Summary Purpose Family History Unknown Family Member Name Dates Details FH: [...] Status:Active Heart problem: Mother, Fathe r Status:Active Relationship Condition Age at Onset Recorded Date/T rylee mother Myocardial infarction Unknown Diabetes mellitus Unknown father Diabetes mellitus Unknown Malignant neoplasm of urinary bladder Unk nown Advance Directives Advance Directive Response Recorded Date/ Time Advance Directives No March 19 8:56pm Chief Complaint * FAUSTO CORRIGAN is being seen for a 6 month follow-up of. * Patient is a 61-year-old female who returns for follow-up. She had inferior ST elevation [place] with primary revascularization of the RCA in [...] She has a history of previous inferior [place] in February 2021 (late presenting [place]) with PCI of the RCA at that [...] Referral Specialty Diagnoses / Procedures Referred By Contac t Referred To Contact Diagnoses Chronic obstructive pulmonary disease, unspecified COPD type ([facility]) Veronique Harris, ANNA [address] [place] [address] Referral ID Status Reason Start Date Expiration Date V isits Requested Visits Authorized [id number] Pending Review 09 27 Chief Complaint and Reason for Visit Chief Complaint Admit Date Follow up [facility]H/In Pt/Consult May 18, 2025 10:09am Reason for Visit Admit Date Diarrhea May 18, 2025 10 :09am Additional Source Comments INFORMATION SOURCE (unrecogn ized section and content) DATE CREATED AUTHOR 03/22/2018 [facility] DATE CREATED AUTHOR AUTHOR'S ORGANIZ ATION 04/18/2018 [facility] DATE CREATED AUTHOR AUTHOR'S ORGANIZ ATION 04/18/2018 [facility] DATE CREATED AUTHOR AUTHOR'S ORGANIZ ATION 08/21/2021 [facility] DATE CREATED AUTHOR AUTHOR'S ORGANIZ ATION 10/19/2021 [facility] DATE CREATED AUTHOR AUTHOR'S ORGANIZ ATION 10/06/2022 [facility] DATE CREATED AUTHOR AUTHOR'S ORGANIZ ATION 10/07/2022 [facility] DATE CREATED AUTHOR AUTHOR'S ORGANIZ ATION 01/21/2023 [facility] DATE CREATED AUTHOR AUTHOR'S ORGANIZ ATION 01/18/2024 [facility] DATE CREATED AUTHOR AUTHOR'S ORGANIZ ATION 07/22/2024 [facility] DATE CREATED AUTHOR AUTHOR'S ORGANIZ ATION 05/10/2025 [facility] DATE CREATED AUTHOR AUTHOR'S ORGANIZ ATION 05/22/2025 [facility] Reason for Visit (unrecogniz ed section and content) Reason Onset Date Comments Med Refill 07/05/2024 Reason Comments Med Refill Reason Comments 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 They sent her here for something but does not know why. She is having diarrhea. The GI doctor did say he could see the fistula . Had a CT scan. Reason Comments Hospital Follow-up Care Teams (unrecognized sec tion and content) Senior Engineering Team Leader Relationship Specialty Start Date End Date Stuart Deluca MD [address] [place] [phone] PCP - General Family Medicine 03/17/23 Veronique Harris NP [address] [place] [phone] PCP - [facility] 03/27/24 Senior Engineering Team Leader Relationship Specialty Start Date End Date Stuart Deluca MD [address] [place] [phone] PCP - General Family Medicine 03/17/23 Veronique Harris NP [address] [place] [address] PCP - [facility] 03/27/24 Jany Saini LSW Building Tech Family Medicine 07/25/24 07/27/24 Marta Doll LPN [address] [place] [address] Licensed Practical Nurse Family Medicine 07/27/24 Senior Engineering Team Leader Relationship Specialty Start Date End Date Stuart Deluca MD [address] [place] [phone] PCP - General Family Medicine 03/17/23 Veronique Harris NP [address] [place] [address] PCP - [facility] 03/27/24 Jany Saini LSW Building Tech Family Medicine 07/25/24 07/27/24 Marta Doll, CAFETERIA WORKER [address] [place] [address] Licensed Practical Nurse Family Medicine 07/27/24 Senior Engineering Team Leader Relationship Specialty Start Date End Date Stuart Deluca MD [address] [place] [address] PCP - General [facility] Medicine 03/17/23 Veronique Harris NP [address] [place] [address] PCP - [facility] 03/27/24 Jb Valdez MA Family Medicine 07/27/24 Senior Engineering Team Leader Relationship Specialty Start Date End Date Stuart Deluca MD [address] [place] [address] PCP - General Family Medicine 03/17/23 Veronique Harris NP [address] [place] [address] PCP - [facility] 03/27/24 Jb Valdez MA Family Medicine 07/27/24 Senior Engineering Team Leader Relationship Specialty Start Date End Date Stuart Deluca MD [address] [place] [address] PCP - General Family Medicine 03/17/23 Veronique Harris NP [address] [place] [address] PCP - [facility] 03/27/24 Jb Valdez MA Family Medicine 07/27/24 Senior Engineering Team Leader Relationship Specialty Start Date End Date Stuart Deluca MD [address] [place] [address] PCP - [facility] 03/17/23 Veronique Harris NP [address] [place] [address] PCP - [facility] 03/27/24 Jb Valdez MA Family Medicine 07/27/24 Senior Engineering Team Leader Relationship Specialty Start Date End Date Stuart Deluca MD [address] [place] [address] PCP - [facility] 03/17/23 Veronique Harris NP [address] [place] [address] PCP - [facility] 03/27/24 Senior Engineering Team Leader Relationship Specialty Start Date End Date Stuart Deluca MD [address] [place] [address] PCP - [facility] Family [facility] 03/17/23 Veronique Harris NP [address] [place] [address] PCP - [facility] 03/27/24 Senior Engineering Team Leader Relationship Specialty Start Date End Date Stuart Deluca MD [address] [place] [address] PCP - General Family Medicine 03/17/23 Veronique aHrris NP [address] [place] [address] PCP - [facility] 03/27/24 Senior Engineering Team Leader Relationship Specialty Start Date End Date Stuart Deluca MD [address] [place] [address] PCP - General Family Medicine 03/17/23 Veronique Harris NP [address] [place] [address] PCP - [facility] 03/27/24 Jb Valdez MA Family Medicine 07/27/24 Senior Engineering Team Leader Relationship Specialty Start Date End Date Stuart Deluca MD [address] [place] [address] PCP - General [facility] 03/17/23 Veronique Harris NP [address] [place] [address] PCP - [facility] 03/27/24 Jb Valdez MA Family Medicine 07/27/24 Senior Engineering Team Leader Relationship Specialty Start Date End Date Stuart Deluca MD [address] [place] [address] PCP - General Family Medicine 03/17/23 Veronique Harris NP [address] [place] [phone] PCP - [facility] 03/27/24 Jb Valdez MA Family [facility] 07/27/24 Senior Engineering Team Leader Relationship Specialty Start Date End Date Stuart Deluca MD [address] [place] [address] PCP - General Family Medicine 03/17/23 Veronique Harris NP [address] [place] [address] PCP - [facility] 03/27/24 Jb Valdez MA [facility] 07/27/24 Senior Engineering Team Leader Relationship Specialty Start Date End Date Stuart Deluca MD [address] [place] [address] PCP - General [facility] 03/17/23 Veronique Harris NP [address] [place] [address] PCP - [facility] 03/27/24 Jb Valdez MA Family Medicine 07/27/24 Senior Engineering Team Leader Relationship Specialty Start Date End Date Stuart Deluca MD [address] [place] [address] PCP - General Family Medicine 03/17/23 Veronique aHrris NP [address] [place] [address] PCP - [facility] 03/27/24 Jb Valdez MA Family [facility] 07/27/24 Senior Engineering Team Leader Relationship Specialty Start Date End Date Stuart Deluca MD [address] [place] [address] PCP - General Family Medicine 03/17/23 Veronique Harris NP [address] [place] [address] PCP - [facility] 03/27/24 Jb Valdez MA Family Medicine 07/27/24 Senior Engineering Team Leader Relationship Specialty Start Date End Date Stuart Deluca MD [address] [place] [address] PCP - General Family Medicine 03/17/23 Veronique Harris NP [address] [place] [address] PCP - [facility] 03/27/24 Jb Valdez MA Family [facility] 07/27/24 Senior Engineering Team Leader Relationship Specialty Start Date End Date Stuart Deluca MD [address] [place] [address] PCP - General Family Medicine 03/17/23 Veronique Harris NP [address] [place] [address] PCP - [facility] 03/27/24 Jb Valdez MA Family Medicine 07/27/24 Senior Engineering Team Leader Relationship Specialty Start Date End Date Stuart Deluca MD [address] [place] [address] PCP - General Family Medicine 03/17/23 Veronique Harris NP [address] [place] [address] PCP - [facility] 03/27/24 Jb Valdez MA Family Medicine 07/27/24 Senior Engineering Team Leader Relationship Specialty Start Date End Date Sutart Deluca MD [address] [place] [address] PCP - General Family Medicine 03/17/23 Veronique Harris NP [address] [place] [address] PCP - [facility] 03/27/24 Jb Valdez MA Family Medicine 07/27/24 Senior Engineering Team Leader Relationship Specialty Start Date End Date Stuart Deluca MD [address] [place] [address] PCP - General Family Medicine 03/17/23 Veronique Harris NP [address] [place] [address] PCP - [facility] 03/27/24 Jb Valdez MA Family Medicine 07/27/24 Senior Engineering Team Leader Relationship Specialty Start Date End Date Stuart Deluca MD [address] [place] [address] PCP - General Family Medicine 03/17/23 Veronique Harris NP [address] [place] [address] PCP - [facility] 03/27/24 Jb Valdez MA Family Medicine 07/27/24 Senior Engineering Team Leader Relationship Specialty Start Date End Date Veronique Harris J, IRS AGENT-DISPOSAL PLANT OPERATOR PCP - General Nurse Practitioner 07/20/24 Senior Engineering Team Leader Relationship Specialty Start Date End Date Stuart Deluca MD [address] [place] [address] PCP - General Family Medicine 03/17/23 Veronique Harris NP [address] [place] [address] PCP - [facility] 03/27/24 Jb Valdez MA [address] [place] [address] Family Medicine 07/27/24 Senior Engineering Team Leader Relationship Specialty Start Date End Date Stuart Deluca MD [address] [place] [address] PCP - General Family Medicine 03/17/23 Veronique Harris NP [address] [place] [address] PCP - [facility] 03/27/24 Jb Valdez MA [address] [place] [address] Family Medicine 07/27/24 Senior Engineering Team Leader Relationship Specialty Start Date End Date Stuart Deluca MD [address] [place] [address] PCP - General Family Medicine 03/17/23 Veronique Harris, BATCH OR CONTINUOUS STILL OPERATOR [address] [place] [address] PCP - [facility] 03/27/24 Jb Valdez MA [address] [place] [address] Family Medicine 07/27/24 Senior Engineering Team Leader Relationship Specialty Start Date End Date Stuart Deluca MD [address] [place] [address] PCP - General [facility] 03/17/23 Veronique Harris, ANNA [address] [place] [address] PCP - [facility] 03/27/24 Jb Valdez MA [address] [place], [place] [phone] Family [facility] 07/27/24 Senior Engineering Team Leader Relationship Specialty Start Date End Date Stuart Deluca MD [address] [place] [address] PCP - General [facility] 03/17/23 Veronique Harris, NANA [address] [place] [address] PCP - [facility] 03/27/24 bJ Valdez MA [address] [place] [address] Family Medicine 07/27/24 Senior Engineering Team Leader Relationship Specialty Start Date End Date Stuart Deluca MD [address] [place] [address] PCP - General Family Medicine 03/17/23 Veronique Harris NP [address] [place] [address] PCP - [facility] 03/27/24 Jb Valdez MA [address] [place] [address] Family Medicine 07/27/24 Senior Engineering Team Leader Relationship Specialty Start Date End Date Stuart Deluca MD [address] [place] [address] PCP - General Family [facility] 03/17/23 Veronique Harris NP [address] [place] [address] PCP - [facility] 03/27/24 Jb Valdez MA [address] [place] [address] Family [facility] 07/27/24 Senior Engineering Team Leader Relationship Specialty Start Date End Date Stuart Deluca MD [address] [place] [address] PCP - General Family Medicine 03/17/23 Veronique Harris NP [address] [place] [address] PCP - [facility] 03/27/24 Jb Valdez MA [address] [place] [address] Family Medicine 07/27/24 Senior Engineering Team Leader Relationship Specialty Start Date End Date Stuart Deluca MD [address] [place] [address] PCP - General Family Medicine 03/17/23 Veronique Harris NP [address] [place] [address] PCP - [facility] 03/27/24 Jb Valdez MA [address] [place] [address] Family [facility] 07/27/24 Senior Engineering Team Leader Relationship Specialty Start Date End Date Stuart Deluca MD [address] [place] [address] PCP - General Family Medicine 03/17/23 Veronique Harris NP [address] [place] [address] PCP - [facility] 03/27/24 Jb Valdez MA [address] [place] [address] Family Medicine 07/27/24 Senior Engineering Team Leader Relationship Specialty Start Date End Date Stuart Deluca MD [address] [place] [phone] PCP - General Family Medicine 03/17/23 Veronique Hraris NP [address] [place] [phone] PCP - [facility] 03/27/24 Jb Valdez MA [address] [place] [address] Family Medicine 07/27/24 Senior Engineering Team Leader Relationship Specialty Start Date End Date Stuart Deluca MD [address] [place] [phone] PCP - General [facility] 03/17/23 Veronique Harris, BATCH OR CONTINUOUS STILL OPERATOR [address] [place] [phone] PCP - [facility] 03/27/24 Jb Valdez MA [address] [place] [address] Family [facility] 07/27/24 Team Status: Active Member Role Status Dates Dara Mills MD Primary Care Provider Active Team Status: Inactive Member Role Status Dates Dara Mills MD Primary Care Provider Active Start: May 18, 2025 End: May 18, 2025 Mitra Ko DO Attending Provider Active St art: May 18, 2025 End: May 18, 2025 Senior Engineering Team Leader Relationship Specialty Start Date End Date Stuart Deluca MD [address] [place] [phone] PCP - General Family [facility] 03/17/23 Veronique Harris, BATCH OR CONTINUOUS STILL OPERATOR [address] [place] [phone] PCP - [facility] 03/27/24 Jb Valdez MA [address] [place] [address] Family Medicine 07/27/24 Senior Engineering Team Leader Relationship Specialty Start Date End Date Stuart Deluca MD [address] [place] [phone] PCP - General Family Medicine 03/17/23 Veronique Harris NP [address] [place] [phone] PCP - [facility] 03/27/24 Jb Valdez MA [address] [place] [address] Family Medicine 07/27/24 Goals (unrecognized section and content) Goals may be documented in a n alternate section FOR RECORDS PERTAINING TO PATIENTS WHO ARE [...] BE BASED ON THE PRIMARY CLINICAL RECORDS. [facility]. provides no warranty or guarantee of the accuracy or completeness of information in this document.
--- NOTE | 2025-07-11 14:02 | XR_ITS ---
[address] [address] Patient Name: FAUSTO KRISHNAMURTHY MRN: [id number] date: 1960 Sex: F Assigned Patient Location: LAB Current Patient Location: LAB Accession/Order Number: [id number] Exam Date: 07/11/2025 14:08 Report Date: 07/11/2025 17:22 At the request of: KATINA CORDON NP Procedure: XR chest 2V PA AND LATERAL CHEST: CLINICAL HISTORY: Chronic Obstructive Pulmonary Disease COMPARISON: 05/13/2025 FINDINGS: Unremarkable cardiomediastinal. Lungs clear. No effusion or pneumothorax. Mild accentuation involutional normal thoracic kyphosis, osteopenia XR/XR chest 2V IMPRESSION: NO ACUTE CARDIOPULMONARY ABNORMALITY. Impression dictated by: Braeden Parsons M.D. 07/11/2025 5:22 PM Dictation Location: [place] [address] Electronically authenticated by: [id number] Y Date: 07/11/2025 17:22
[2025-07-11 14:56] LABS: Anion Gap 10.6; Blood Urea Nitrogen 11.0 mg/dL (7.0-18.0); Calcium 8.1 mg/dL (8.5-10.1); Carbon Dioxide 28.7 mmol/L (21.0-32.0); Chloride 109 mmol/L (98-107); Estimated GFR (African America >60 (>=60 mL/min/1.73m^2); Estimated GFR (Non-African Ame >60 (>=60 mL/min/1.73m^2); Glucose 142 mg/dL (74-106); Potassium 3.3 mmol/L (3.5-5.1); Sodium 145 mmol/L (136-145)
[2025-07-11 16:04] LABS: Magnesium 0.9 mg/dL (1.8-2.4)
== END 2025-07-11 13:41 | disposition home or self-care (01) ==
LOC: CARD 13:41 → LAB 13:49
PROVIDERS: PCP Nurse Practitioner; Visit Provider Nurse Practitioner
DX: J44.9 Chronic obstructive pulmonary disease, unspecified (principal); I10 Essential (primary) hypertension; E11.22 Type 2 diabetes mellitus with diabetic chronic kidney disease
CPT/HCPCS: 36415; 71046; 80048; 83735

== ENCOUNTER 2025-09-07 12:52 | Outpatient (OUT) | payer OTHER, SELFPAY ==
--- OUTSIDE RECORDS SUMMARY | 2025-09-07 12:57 | XMS_ITS | CCD ---
Author Organization [facility] CliniSywi Care Team Providers Care Tabulating Clerk Name Role Phone YANELIS, ESEQUIEL C Unavailable [...] Unavailable THOMAS DELGADILLO Unavailable Unavailmaddie Mills MD, Dara Primary Care Provider [phone] ROSS, DARA Primary Care Unavailable ROSS, DARA [...] Unavailable SAMSA ., OLIVER Attending Unavailable AICHHOLZ, LINSEED OIL BOILER VERONIQUE Primary Care Unavailable TERESA, DR HANNAH [employer] Unavailable SAMSA ., OLIVER Consulting Unavailable AICHHOLZ, LINSEED OIL BOILER VERONIQUE Admitting Unavailable AICHHOLZ, LINSEED OIL BOILER VERONIQUE Attending Unavailable AICHHOLZ, LINSEED OIL BOILER VERONIQUE Primary Care Unavailable AICHHOLZ, LINSEED OIL BOILER VERONIQUE Consulting Unavailable AICHHOLZ, LINSEED OIL BOILER VERONIQUE Admitting Unavailable AICHHOLZ, LINSEED OIL BOILER VERONIQUE Attending Unavailable AICHHOLZ, LINSEED OIL BOILER VERONIQUE Primary Care Unavailable AICHHOLZ, LINSEED OIL BOILER VERONIQUE Consulting Unavailable AICHHOLZ, LINSEED OIL BOILER VERONIQUE Primary Care Unavailable KAISER, MARIANO Admitting Unavailable MARIANO SAAB Attending Unavailable SHILA CALLOWAY Consulting [facility] e PROVIDER, UNKNOWN Admitting Unavailable LILLIAN QUICK Attending Unavailable Stuart Deluca MD Primary Care Provider Aichzana SUPPLY PERSON, Veronique Unavailable VERONIQUE HARRIS Primary Care Unavailable Parveen FEATHER EDGER, Jany Unavailable [place] [employer] SUPERVISOR, Marta Unavailable Jb Valdez MA Unavailable Unavailable Steven AUTOMATIC LUMP MAKING MACHINE TENDER-Veronique SAHNI Primary Care Provider Jb Valdez MA Unavailable VERONIQUE HARRIS Primary Care Physician [phone] Hossein Salcido Attending Unavailswati Mills MD, Dara Mcdonnell Primary Care Provider Mitra Ko DO Attending Provider [phone] AICHHOLZ, VERONIQUE Attending Unavailable AICHHOLZ, VERONIQUE Attending Unavailable AICHHOLZ, VERONIQUE Attending Unavailable RUSHER, BAO S Attending Unavailable AICHHOLZ, VERONIQUE Attending Unavailable PANTERA JOHNSTON Attending Unavailable AICHHOLZ, VERONIQUE Attending Unavailable AICHHOLZ, VERONIQUE Attending Unavailable AICHHOLZ, VERONIQUE Attending Unavailable RUSHER, BAO S Attending Unavailable AICHHOLZ, VERONIQUE Attending Unavailable Aichholz SUPPLY PERSON-C, Veronique J Primary Care Provider Aichamauryz SUPPLY PERSON-C, Veronique J Attending Provider Stuart Deluca MD Primary Care Provider [phone] Steven SUPPLY PERSON, Veronique Unavailable Jany Reece Unavailable [place] [employer] SUPERVISOR, Marta Unavailable José Miguel MURRAY, Saebel Unavailable Steven Veronique J Attending Unavailable Aichholz, Veronique J Primary Care Unavailable Vicentehzana, Veronique J Admitting Unavailable Parish RENNER, Dara Mcdonnell Primary Care Provider Mitra Ko DO Attending Provider [phone] Aichholz SUPPLY PERSON-C, Veronique J Primary Care Provider [phone] Aichholkali SUPPLY PERSON-C, Veronique J Attending Provider Allergies Allergy ClassificationReported Allergen(s)Allergy TypeDate of OnsetReaction(s) FacilitySulfonamides (antibiotic) (6 sources)Sulfonamides (Antibiotic)Drug Erhqtmi45-43-5991[facility] (8 sources)Sulfonamides (Antibiotic); Translations: [SULFA (SULFONAMIDE ANTIBIOTICS)]Propensity to adverse reactions to drug (disorder)09-54-9924MCR, [facility] (13 sources)Sulfonamides (Antibiotic)Propensity to adverse reactions to drug 29-18-8935[facility] (4 sources)Sulfamethoxazole; Translations: [sulfa]Drug AllergyUnity[facility] 250 DO Work Phone: (1 source)Sulfonamides (Antibiotic)Drug allergy (disorder)78-50-2559[facility] (20 sources)levoFLOXacinDrug Ktirarv44-74-8545[facility] (20 sources)Sulfonamides (Antibiotic)Propensity to adverse lwvfzizuw80-01-1118 [facility] (2 sources)Sulfonamide; Translations: [sulfa drugs]Drug allergyWeal (disorder) [facility] (1 source)levoFLOXacinDrug Wnuxbuw39-74-2299[facility] Medications Current Medications MedicationDrug Class(es)DatesSig (Normalized)Sig (Original)acetaminophen 325 mg / oxyCODONE hydrochloride 2.5 mg oral tablet (1 source)Opioid AgonistStart: 84-01-8673oyyu 1 tablet by mouth every six hours Percocet 2.5 mg-325 mg oral tablet tab(s), Oral, q6hr, Refill(s) 0, Pain Start Date: 06/17/20 Status: Ordered Repeat number: 1albuterol 0.83 mg/ml inhalation solution (20 sources)beta2-Adrenergic AgonistStart: 52-56-6574zvja 2.5 mg by inhalation every six hours as neededStart: 05-15-4556vknq 1 puff(s) by inhalation every four to six hours as neededStart: 01-09-2025 End: 40-79-4455imhi 2 puff(s) by inhalation every six hours for wheezing albuterol HFA 90 mcg/act inhaler Indications: Chronic obstructive pulmonary disease, unspecified COPD type (HCC) Inhale 2 puffs every 6 (six) hours if needed for wheezing 18 g 1 01/09/2025 ActiveStart: 61-52-1706kkmt 2 puff(s) by inhalation every four hours as neededAlbuterol Sulfate HFA 108 (90 Base) MCG/ACT Inhalation Aerosol Solution INHALE 2 PUFFS EVERY 4 HOURS NEEDED FOR SHORTNESS OF BREATH Quantity: 18 Refills: 0 Ordered: 03-Jul-2021 DO Start : 03-Jul-2021 ActiveStart: 34-45-5534mhhu 2 puff(s) by inhalation every four hours as needed Albuterol Sulfate HFA 108 (90 Base) MCG/ACT Inhalation Aerosol Solution INHALE 2 PUFFS EVERY 4 HOURS NEEDED FOR SHORTNESS OF BREATH Quantity: 18 Refills: 0 Ordered: 03-Jul-2021 DO Start : 03-Jul-2021 ActiveStart: 13-42-4097Zosnoivca Sulfate (2.5 MG/3ML) 0.083% Inhalation Nebulization Solution USE ONE VIAL IN NEBULIZER 4 TIMES DAILY Quantity: 360 Refills: 0 Ordered: 30-Jun-2021 DO Start : 04-Jul-2020 Active End: 07-43-2421qbrv 2 puff(s) by inhalation every four hours for wheezing albuterol HFA 90 mcg/act inhaler Inhale 2 puffs every 4 (four) hours if needed for wheezing 01/09/2025 Discontinuedtake 2 puff(s) by inhalation every six hours as needed for wheezingalbuterol sulfate HFA 108 (90 Base) MCG/ACT inhaler Inhale 2 puffs into the lungs every 6 hours as needed for Wheezing 0 Activeaspirin 81 mg oral tablet (20 sources)Platelet Aggregation Inhibitor, Nonsteroidal Anti-inflammatory Drug Start: 71-02-6652gqhb 1 capsule by mouth once dailytake 81 mg by mouth once dailyASPIRIN 81 PO Take 81 mg by mouth Daily Activetake 1 tablet by mouth in the morningaspirin 81 mg Take 1 tablet (81 mg total) by mouth in the morning. Active atorvastatin 80 mg oral tablet (20 sources)HMG-CoA Reductase InhibitorStart: 03-21-2021 End: 69-81-1292xekf 1 tablet by mouth once daily in the eveningStart: 06-17-2020 Lipitor Oral, Daily, Refills(s) 0 Start Date: 06/17/20 Status: Ordered Repeat number: 1Start: 15-05-9571sumnnvlabqcc Oral, Daily, Refills(s) 0, High cholesterol Start Date: 06/17/20 Status: Ordered Repeatnumber: 1benzonatate 200 mg oral capsule (2 sources)Non-narcotic AntitussiveStart: 86-24-9426wmvo 1 capsule by mouth three times daily as needed for yagsx862 actuat budesonide 0.16 mg/actuat / formoterol fumarate 0.0045 mg/actuat metered dose inhaler (20 sources)Corticosteroid, beta2-Adrenergic AgonistStart: 27-45-8205sjnn 1 puff(s) by inhalation every twelve hoursStart: 04-05-2025 End: 97-50-1433bfzf 2 puff(s) by inhalation in the morningbudesonide-formoterol (Symbicort) 160-4.5 MCG/ACT inhaler Indications: Chronic obstructive pulmonary disease, unspecified COPD type (HCC) Inhale 2 puffs in the morning and 2 puffs before bedtime. Rinse mouth after use. 30.6 g 1 04/05/2025 07/04/2025 Active Start: 11-12-2024 End: 44-41-1226mmuc 2 puff(s) by inhalation in the morningbudesonide-formoterol (Symbicort) 160-4.5 MCG/ACT inhaler Indications: Chronic obstructive pulmonary disease, unspecified COPD type (HCC) Inhale 2 puffs in the morning and 2 puffs before bedtime. Rinse mouth after use. 10.2 g 2 01/04/2025 04/05/2025 Discontinued (Reorder)Start: 04-17-2024 End: 93-61-3707msoa 2 puff(s) by inhalation in the morningbudesonide-formoterol (Symbicort) 160-4.5 MCG/ACT inhaler Indications: Chronic obstructive pulmonary disease, unspecified COPD type (CMS/HCC) Inhale 2 puffs in the morning and 2 puffs before bedtime.Rinse mouth with water after use to reduce aftertaste and incidence of candidiasis. Do not swallow.. 1 each 2 07/27/2024 11/12/2024 DiscontinuedStart: 13-71-5616zjvc 2 puff(s) by mouth twice dailySymbicort 160- 4.5 MCG/ACT Inhalation Aerosol INHALE 2 PUFFS TWICE A DAY -RINSE MOUTH AFTER USE Quantity: 10 Refills: 0 Ordered: 03-Jul-2021 DO Start : 03-Jul-2021 Active cimetidine 200 mg oral tablet (20 sources)Histamine-2 Receptor AntagonistStart: 07-27-2024 End: 19-73-7476bbdj 1 tablet by mouth oncecimetidine (Tagamet) 200 MG tablet Indications: Gastroesophageal reflux disease without esophagitisTake 1 tablet (200 mg) by mouth every 12 (twelve) hours if needed (acid reflux) 60 tablet 1 11/12/2024 12/12/2024 ActiveStart: 02-25-2021 End: 31-95-7160udwp 1 tablet by mouth twice dailyCimetidine 200 mg Tablet Discontinued 200 MG PO Twice daily March 18, 2021 11:00pm May 18, 2025 9:26amStart: 46-54-3339aboy 1 tablet by mouth once dailycimetidine (TAGAMET) 200 MG tablet Take 200 mg by mouth daily 0 06/17/2020 Activecyclobenzaprine hydrochloride 10 mg oral tablet (4 sources)Muscle RelaxantStart: 07-20-2024 End: 58-88-5973axfb 1 tablet by mouth twice daily as needed for muscle spasms cyclobenzaprine (FLEXERIL) 10 mg tablet Take 1 tablet (10 mg total) by mouth 2 (two) times a day asneeded for muscle spasms. 10 tablet 07/20/2024 Active dicyclomine hydrochloride 10 mg oral capsule (20 sources)AnticholinergicStart: 66-21-3732rryn 1 capsule by mouth four times daily as needed for paindicyclomine (Bentyl) 10 MG capsule TAKE 1 CAPSULE (10 MG) BY MOUTH 4 (FOUR) TIMES A DAY NEEDED (ABDOMINAL PAIN OR CRAMPS) 03/28/2025 ActiveStart: 11-30-2024 End: 63-72-0718anqr 1 capsule by mouth four times daily as needed for pain dicyclomine (Bentyl) 10 MG capsule Indications: Lower abdominal pain Take 1 capsule (10 mg) by mouth 4 (four) times a day as needed (abdominal pain or cramps) 120 capsule 1 11/30/2024 01/04/2025 ActiveStart: 11-07-2024 End: 08-95-6111ugzm 1 capsule by mouth every eight hoursdicyclomine (Bentyl) 10 MG capsule Indications: Generalized abdominal pain Take 1 capsule (10 mg) by mouth every 8 (eight) hours if needed (abd cramping) for up to 10 days 30 capsule 11/07/2024 11/17/2024 ActiveStart: 68-37-8403uudqmkdchvb (BENTYL) 10 MG capsule 10 mg every 6 hours as needed 0 03/19/2021 ActiveStart: 03-19-2021 End: 46-31-8229uzbj 1 capsule by mouth three times dailyDicyclomine 10 mg Capsule Discontinued 10 MG PO Three times daily March 18, 2021 11:00pm May 18, 2025 9:26amlevothyroxine sodium 0.125 mg oral tablet (20 sources)l-ThyroxineStart: 04-17-2024 End: 43-53-6484vivq 1 tablet by mouth once dailyStart: 47-11-1365ovmj 1 tablet by mouth once daily in the morningLevothyroxine Sodium 125 MCG Oral Tablet TAKE ONE TABLET BY MOUTH ONCE DAILY IN THE MORNING 2 HOURSPRIOR TO ANY OTHER FOOD, DRINK, OR MEDICINE Quantity: 28 Refills: 0 Ordered: 04-Aug-2022 DO Start : 2 29-May-2022 ActiveStart: 53-96-5487pdfs 1 tablet by mouth once dailyLevothyroxine Sodium 112 MCG Oral Tablet TAKE ONE TABLET BY MOUTH DAILY Quantity: 19 Refills: 0 Ordered: 10-Oct-2021 DO Start : 08-Oct-2021 ActiveStart: 03-19-2021 End: 09-78-9084Htjkoggmoaqyn 100 mcg Tablet Discontinued 125 MCG PO Daily March 18, 2021 11:00pm June 26, 2025 7:03amStart: 43-84-4737ixjsfurnbtvnz (SYNTHROID) 100 MCG tablet Take 112 mcg by mouth daily 0 03/19/2021 Active lisinopril 10 mg oral tablet (20 sources)Angiotensin Converting Enzyme InhibitorStart: 21-21-0813bpee 1 tablet by mouth once dailyStart: 06-26-2025 End: 38-54-3066jcqt 1 tablet by mouth once dailyLisinopril 5 mg tablet Discontinued 5 MG PO Daily June 25, 2025 11:00pm July 11, 2025 9: 25amStart: 05-18-2025 End: 55-22-0007xuwq 2 tablets by mouth once dailyLisinopril 2.5 mg tablet Discontinued 5 MG PO Daily May 18, 2025 9:27am June 26, 2025 7:04am Start: 04-05-2025 End: 17-99-1749zylh 1 tablet by mouth once dailylisinopril 40 MG tablet Indications: Primary hypertension Take 1 tablet (40 mg) by mouth Daily 90 tablet 04/05/2025 07/04/2025 ActiveStart: 01-04-2025 End: 64-22-5732ogjx 1 tablet by mouth once dailylisinopril 30 MG tablet Indications: Primary hypertension Take 1 tablet (30 mg) by mouth Daily 30 tablet 1 04/04/2025 04/05/2025 Discontinued (Therapy completed)Start: 11-30-2024 End: 06-53-4637bhee 1 tablet by mouth once dailylisinopril 20 MG tablet Indications: Primary hypertension (CMS/HCC) Take 1 tablet (20 mg) by mouth Daily 30 tablet 2 01/04/2025 02/03/2025 ActiveStart: 04-17-2024 End: 24-78-5022airq 1 tablet by mouth once dailylisinopril 10 MG tablet Indications: Primary hypertension (CMS/HCC) Take 1 tablet (10 mg) by mouth Daily 30 tablet 2 07/27/2024 ActiveStart: 03-21-2021 End: 51-88-7521wrkc 1 tablet by mouth once dailyLisinopril 2.5 mg Tablet Discontinued 2.5 MG PO Daily March 20, 2021 11:00pm April 9:30ammagnesium oxide 400 mg oral tablet (7 sources)Start: 82-14-6097umum 1 tablet by mouth twice dailyStart: 06-26-2025 End: 24-78-0402qbns 1 tablet by mouth once dailyMagnesium Oxide 400 mg magnesium tablet Discontinued 400 MG PO Daily June 25, 2025 11:00pm July 11, 2025 5:10pmtake 400 mg by mouth once dailyMAGNESIUM OXIDE 400 PO Take 400 mg by mouth Daily Activemetoprolol tartrate 25 mg oral tablet (20 sources)beta-Adrenergic BlockerStart: 04-17-2024 End: 78-42-9179fjij 1 tablet by mouth in the morningmetoprolol tartrate (Lopressor) 25 MG tablet Indications: Primary hypertension Take 1 tablet (25 mg) by mouth in the morning and 1 tablet (25 mg) before bedtime. 180 tablet 1 04/05/2025 07/04/2025 ActiveStart: 31-12-8782lvbc 1 tablet by mouth once daily metoprolol tartrate (LOPRESSOR) 25 MG tablet Take 25 mg by mouth daily 0 03/21/2021 ActiveStart: 34-05-3216vtug 1 tablet by mouth twice dailymontelukast 10 mg oral tablet (20 sources)Leukotriene Receptor AntagonistStart: 03-19-2021 End: 89-14-1945avdz 1 tablet by mouth once daily at hr nicotine 0.583 mg/hr transdermal system (19 sources)Cholinergic Nicotinic Agonistapply 1 dose transdermal route every twenty-four hoursnicotine (NICODERM CQ) 14 MG/24HR Place 1 patch onto the skin every 24 hours 0 Activeondansetron 4 mg disintegrating oral tablet (3 sources)Serotonin-3 Receptor AntagonistStart: 05-02-2025 End: 91-09-7979rfxu 1 tablet by mouth every eight hours for nauseaondansetron ODT (Zofran-ODT) 4 MG disintegrating tablet Indications: Gastroesophageal reflux disease without esophagitis , Nausea and vomiting, unspecified vomiting type Take 1 tablet (4 mg) by mouthevery 8 (eight) hours if needed for vomiting or nausea for up to 10 days 30 tablet 05/02/2025 05/12/2025 Activepantoprazole 40 mg delayed release oral tablet (20 sources)Proton Pump InhibitorStart: 07-27-2024 End: 48-42-2739gnye 1 tablet by mouth in the morningpantoprazole (ProtoNix) 40 MG EC tablet Indications: Gastroesophageal reflux disease without esophagitis Take 1 tablet (40 mg) by mouth in the morning and 1 tablet (40 mg) before bedtime. 180 tablet 1 04/05/2025 07/04/2025 ActiveStart: 23-37-0508occu 1 tablet by mouth every twelve hoursPantoprazole Sodium 40 MG Oral Tablet Delayed Release TAKE ONE TABLET BY MOUTH EVERY 12 HOURS Quantity: 56 Refills: 0 Ordered: 31-Aug-2022 DO Start : 30-Jul-2022 ActiveStart: 26-67-6820vmhr 1 tablet by mouth twice dailypantoprazole (PROTONIX) 40 MG tablet Take 40 mg by mouth 2 times daily 0 03/19/2021 ActiveStart: 03-19-2021 End: 90-82-7682plpi 1 tablet by mouth once dailypioglitazone 15 mg oral tablet (20 sources)Peroxisome Proliferator Receptor alpha Agonist, Peroxisome Proliferator Receptor gamma Agonist, ThiazolidinedioneStart: 10-08-2021 End: 15-83-1992hakt 1 tablet by mouth once dailypioglitazone (Actos) 15 MG tablet Indications: Type 2 Diabetes Mellitus Take 1 tablet (15 mg) by mouth Daily 90 tablet 1 04/05/2025 07/04/2025 Activepolyethylene glycol 3350 97325 mg powder for oral solution (2 sources)Osmotic LaxativeStart: 70-54-0218evgcamvim chloride 10 meq extended release oral capsule (11 sources)Start: 95-08-4365slhf 2 capsules by mouth once daily at mealtime Start: 05-14-2025 End: 15-89-2594frtt 1 capsule by mouth once dailyPotassium Chloride 10 mEq capsule, extended release Discontinued 10 MEQ PO Daily May 17, 2025 11:00pm June 20, 2025 10:26amStart: 04-05-2025 End: 05-90-9720ynad 1 tablet by mouth in the morningpotassium chloride CR (Klor- Con M10) 10 MEQ ER tablet Indications: Hypokalemia Take 1 tablet (10 mEq) by mouth in the morning and 1 tablet (10 mEq) before bedtime. Do all this for 7 days. Do not crush or chew. 14 tablet 04/05/2025 04/12/2025 ActivepredniSONE 20 mg oral tablet (19 sources)take 1 tablet by mouth once dailypredniSONE (DELTASONE) 20 MG tablet Take 20 mg by mouth daily 3 tabs for 3 days, 2 tabs for 3 days,then 1 tab for 3 days 0 ActiveSod Picosulf-Mag Ox-Citric Ac (2 sources)Start: 78-27-7865makb 1 dose by mouth once dailyStart: 59-78-3042ptrx 1 dose by mouth once dailytriamcinolone acetonide 1 mg/ml topical cream (1 source)CorticosteroidStart: 07-11-2025 Completed/Discontinued Medications MedicationDrug Class(es)DatesSig (Normalized)Sig (Original)amoxicillin 875 mg / clavulanate 125 mg oral tablet (11 sources)Penicillin-class AntibacterialStart: 06-13-2025 End: 30-16-4354jxqq 1 tablet by mouth twice daily at mealtimeAmoxicillin-Pot Clavulanate 875-125 mg tablet Discontinued 1 TAB PO Twice daily 14 0 June 12, 2025 11:00pm June 28, 2025 10:59am Acute exacerbation of chronic obstructive pulmonary diseaseChronic obstructive pulmonary disease with (acute) exacerbation take with foodStart: 67-72-8029qgbg 1 tablet by mouth in the morningamoxicillin-clavulanate (Augmentin) 875-125 MG tablet Take 1 tablet by mouth in the morning and 1 tablet before bedtime. 05/14/2025 ActiveStart: 11-06-2024 End: 48-26-2545xkwe 1 tablet by mouth in the morningamoxicillin-clavulanate (Augmentin) 875-125 MG tablet Indications: UTI symptoms Take 1 tablet (875 mg) by mouth in the morning and 1 tablet (875 mg) before bedtime. Do all this for 7 days. Take w food. 14 tablet 11/06/2024 11/13/2024 ActiveStart: 10-18-2024 End: 49-95-5489ywby 1 tablet by mouth in the morningamoxicillin-clavulanate (Augmentin) 875-125 MG tablet Indications: Dental infection Take 1 tablet (875 mg) by mouth in the morning and 1 tablet (875 mg) before bedtime. Do all this for 10 days. Take with food. 20 tablet 10/18/2024 10/28/2024 Activeatenolol 50 mg / chlorthalidone 25 mg oral tablet (3 sources)Thiazide-like Diuretic, beta-Adrenergic BlockerStart: 03-19-2021 End: 04-15-2007hwxc 1 tablet by mouth once dailyAtenolol-Chlorthalidone 50-25 mg Tablet Discontinued 1 TAB PO Daily March 18, 2021 11:00pm March 21, 2021 11:17amcefuroxime 500 mg oral tablet (3 sources)Cephalosporin AntibacterialStart: 03-19-2021 End: 03-24-5432goff 1 tablet by mouth once dailyCefuroxime Axetil 500 mg Tablet Discontinued 500 MG PO Daily March 18, 2021 11:00pm May 18, 2025 9:26am cholecalciferol 0.05 mg oral tablet (11 sources)Vitamin DStart: 04-05-2025 End: 78-95-0161iuwb 1 tablet by mouth once dailycholecalciferol (Vitamin D-3) 50 MCG (2000 UT) tablet Indications: Vitamin D deficiency Take 1 tablet (50 mcg) by mouth Daily 90 tablet 04/05/2025 05/21/2025 Discontinued (Therapy completed) clopidogrel 75 mg oral tablet (2 sources)P2Y12 Platelet InhibitorStart: 10-08-1339dtyq 1 tablet by mouth once dailyClopidogrel Bisulfate 75 MG Oral Tablet TAKE 1 TABLET Daily Quantity: 30 Refills: 0 Ordered: 29-Sep-2022 Lawrence Catalan AUTOMATIC LU[employer] MAKING MACHINE TENDER-BORADaria Start : 16-Oct-2021 Activeempagliflozin 10 mg oral tablet (20 sources)Sodium-Glucose Cotransporter 2 InhibitorStart: 11-12-2024 End: 10-83-0709euix 1 tablet by mouth once dailyStart: 04-17-2024 End: 54-36-7544rfmw 1 tablet by mouth once dailyempagliflozin (Jardiance) 25 MG Indications: Controlled type 2 diabetes mellitus without complication, without long-term current use of insulin ([facility]) Take 1 tablet (25 mg) by mouth Daily 30 tablet 2 07/27/2024 ActiveStart: 53-94-8136xbol 1 tablet by mouth once daily Jardiance 25 MG Oral Tablet TAKE ONE TABLET BY MOUTH ONCE DAILY Quantity: 28 Refills: 0 Ordered: 04-Aug-2022 DO Start : 02-Jul-2022 ActiveStart: 03-19-2021 End: 58-62-2937xbgk 1 tablet by mouth once dailyEmpagliflozin (Jardiance) 10 mg tablet Discontinued 10 MG PO Daily May 18, 2025 9:26am June 01, 2025 9:05ammetFORMIN hydrochloride 500 mg oral tablet (8 sources)BiguanideStart: 05-18-2025 End: 77-81-5300phtg 1 tablet by mouth twice dailyMetformin 500 mg tablet Discontinued 500 MG PO Twice daily May 17, 2025 11:00pm July 11, 2025 9:04amStart: 93-82-7975rmgaocxwg Oral, Refills(s) 0 Start Date: 02/25/21 Status: Ordered Repeat number: 1metroNIDAZOLE 500 mg oral tablet (6 sources)Nitroimidazole AntimicrobialStart: 03-19-2021 End: 61-71-4113sbin 1 tablet by mouth three times dailyMetronidazole 500 mg Tablet Discontinued 500 MG PO Three times daily March 18, 2021 11:00pm May 18, 2025 9:28amnitroglycerin 0.4 mg sublingual tablet (20 sources)Nitrate VasodilatorStart: 03-21-2021 End: 75-94-9658Szqprwvpqnlpx 0.4 mg tablet, sublingual Discontinued 0.4 MG SUBLINGUAL Q5M as needed for chest pain25 30 3 March 20, 2021 11:00pm June 01, 2025 9:06am do not exceed 3 doses per episoderaNITIdine 150 mg oral tablet (2 sources)Histamine-2 Receptor AntagonistStart: 06-01-2025 End: 79-54-7776bmis 1 capsule by mouth once dailyRanitidine Hcl 150 mg capsule Discontinued 150 MG PO Daily May 31, 2025 11:00pm July 11, 2025 9:03amsucralfate 1000 mg oral tablet (20 sources)Aluminum ComplexStart: 03-19-2021 End: 15-69-9092goaz 1 tablet by mouth three times dailySucralfate 1 gram Tablet Discontinued 1 GM PO Three times daily March 18, 2021 11:00pm May 18, 2025 9:28amticagrelor 90 mg oral tablet (20 sources)Start: 03-21-2021 End: 14-78-4235ayak 1 tablet by mouth twice dailyTicagrelor (Brilinta) 90 mg Tablet Discontinued 90 MG PO Twice daily 180 90 March 20, 2021 11:00pm May 18, 2025 9:29amtiZANidine 4 mg oral tablet (15 sources)Central alpha-2 Adrenergic AgonistStart: 07-27-2024 End: 31-98-3228zckk 1 tablet by mouth oncetiZANidine (Zanaflex) 4 MG tablet Indications: Acute bilateral low back pain without sciatica Take 1 tablet (4 mg) by mouth every 12 (twelve) hours if needed for muscle spasms for up to 10 days 20 tablet 07/27/2024 11/06/2024 Discontinued (Therapy completed) Problems Active Problems Problem ClassificationProblemDateDocumented DateEpisodic/ChronicAbdominal pain (20 sources)Generalized abdominal pain; Translations: [Generalized abdominal pain]Onset: [id number] and unspecified renal failure (7 sources)Acute renal failure syndrome; Translations: [Acute kidney failure, unspecified]Onset: [id number] myocardial infarction (20 sources)Myocardial infarction; Translations: [Acute myocardial infarction of unspecified site, episode of care unspecified]Onset: ChronicComment on above:Problem List clean-up per request of Phys. EHR Cmte Allergic reactions (1 source)Inflammatory dermatosis; Translations: [Dermatitis, unspecified] 30-13-3861AemccpbkFpfuoep kidney disease (20 sources)Chronic kidney disease stage 3A ; Translations: [Stage 3a chronic kidney disease (CKD)]Onset: 12-09-2023 Resolved: [id number] obstructive pulmonary disease and bronchiectasis (20 sources)Chronic obstructive pulmonary disease, unspecified; Translations: [Chronic obstructive lung disease]Onset: [id number] on above:Problem List clean-up per request of Phys. EHR CmteCoronary atherosclerosis and other heart disease (20 sources)Coronary arteriosclerosis; Translations: [Coronary atherosclerosis of unspecified type of vessel, [employer] or graft]Onset: ChronicDiabetes mellitus with complications (20 sources)Chronic kidney disease due to type 2 diabetes mellitus; Translations: [Type 2 diabetes mellitus with diabetic chronic kidney disease] Onset: 713187-61-4991JliqnchOmbohblmo of lipid metabolism (20 sources)Hyperlipidemia; Translations: [Other and unspecified hyperlipidemia] Onset: 831660-46-2058EgqtpprHrwcdmi on above:Problem List clean-up per request of Phys. EHR CmteDiverticulosis and diverticulitis (20 sources)Diverticulitis; Translations: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 #### LIPID, TSH, CMP #### [facility] [address] [place] [address] Dr. Oneal Huynh NORMAL> or = 60 mg/dl - LOW CARDIOVASCULAR RISK <40 mg/dl - HIGH CARDIOVASCULAR RISKTriHealth Bethesda North HospitalComment on above:Performed By: #### LIPID, TSH, CMP #### [facility] [address] [place] [address] Dr. Oneal VieyraLDL CALC NORMALSEE Kindred Hospital DaytonComment on above:Result Comment: <100 mg/dl OPTIMAL 100 - 129 mg/dl NEAR OR ABOVE OPTIMAL 130 - 159 mg/dl BORDERLINE HIGH 160 - 189 mg/dl HIGH >190 mg/dl VERY HIGH Performed By: #### LIPID, TSH, CMP #### [facility] [address] [address] [address] Oneal VieyraTriglyceride [Mass/Vol]321 mg/dLCritically high<=150[facility] on above:Performed By: #### LIPID, TSH, CMP #### [facility] [address] [address] [address] Oneal VieyraVLDL CALC64.2 mg/dLNormalThe [facility] CenterComment on above: Performed By: #### LIPID, TSH, CMP #### [facility] [address] [place] [address] Dr. Oneal Maciel 14(COMP METB)on [id number] [Mass/Vol]3.7 g/dLNormal 3.4-5.0[facility] on above:Performed By: #### LIPID, TSH, CMP #### [facility] [address] [place] [address] Dr. Oneal VieyraAlbumin/Globulin [Mass ratio]0.9 {ratio}NormalThe [facility] on above:Performed By: #### LIPID, TSH, CMP #### [facility] [address] [place] [address] Dr. Oneal Holm [Catalytic activity/Vol]171 U/LCritically ihcc74-426Gjf [facility] on above:Performed By: #### LIPID, TSH, CMP #### [facility] [address] [place] [address] Dr. Oneal Zayas [Catalytic activity/Vol]19 U/ICpjcse64-31Fvo [facility] on above:Performed By: #### LIPID, TSH, CMP #### [facility] [address] [place] [address] Dr. Oneal Soto gap [Moles/Vol]5.6 mmol/LNormalThe [facility] CenterComeaton rapids medical center on above:Performed By: #### LIPID, TSH, CMP #### [facility] [address] [place] [address] Dr. Oneal VieyraAST [Catalytic activity/Vol]13 U/LCritically yoz23-90Rog [facility] CenterComment on above:Performed By: #### LIPID, TSH, CMP #### [facility] [address] [address] [address] Oneal VieyraBilirubin [Mass/Vol]0.5 mg/dLNormal0.2-1.0The [facility] Comment on above:Performed By: #### LIPID, TSH, CMP #### [facility] [address] [place] [address] Dr. Oneal VieyraCalcium [Mass/Vol]9.1 mg/dLNormal8.5-10.1The [facility] Comment on above:Performed By: #### LIPID, TSH, CMP #### [facility] [address] [place] [address] Dr. Oneal VieyraChloride [Moles/Vol]105 mmol/WJequpu13-755Lzn [facility] Comment on above:Performed By: #### LIPID, TSH, CMP #### [facility] [address] [place] [address] Dr. Oneal VieyraCO2 [Moles/Vol]35.3 mmol/LCritically high21.0-32.0The [facility] CenterComment on above:Performed By: #### LIPID, TSH, CMP #### [facility] [address] [place] [address] Dr. Oneal VieyraCreatinine [Mass/Vol]0.88 mg/dLNormal0.55-1.02The [facility] CenterComment on above:Performed By: #### LIPID, TSH, CMP #### [facility] [address] [place] [address] Dr. Oneal MartínezGFR-AF MALAWIAN>60Normal>=60The [facility] CenterComment on above:Performed By: #### LIPID, TSH, CMP #### [facility] [address] [address] [address] Oneal MartínezGFR-NON AF MALAWIAN>60Normal>=60The [facility] CenterComment on above:Performed By: #### LIPID, TSH, CMP #### [facility] [address] [address] [address] Oneal VieyraGlobulin (S) [Mass/Vol]4.3 g/dLNormMercy Health Kings Mills HospitalComment on above:Performed By: #### LIPID, TSH, CMP #### [facility] [address] [address] [address] Oneal VieyraGlucose [Mass/Vol]93 mg/vXLdivzm16-685Xxe [facility] Comment on above:Performed By: #### LIPID, TSH, CMP #### [facility] [address] [address] [address] Oneal VieyraPotassium [Moles/Vol]3.9 mmol/LNormal3.5-5.1The [facility] Comment on above:Performed By: #### LIPID, TSH, CMP #### [facility] [address] [address] [address] Oneal VieyraProtein [Mass/Vol]8.0 g/dLNormal6.4-8.2[facility] Comment on above:Performed By: #### LIPID, TSH, CMP #### [facility] [address] [place] [address] Dr. Oneal VieyraSodium [Moles/Vol]142 mmol/SPahdzv297-405UqwOhiohealth Comment on above:Performed By: #### LIPID, TSH, CMP #### [facility] [address] [address] [address] Oneal VieyraUrea nitrogen [Mass/Vol]15.0 mg/dLNormal7.0-18.0The [facility] CenterComment on above:Performed By: #### LIPID, TSH, CMP #### [facility] [address] [place] [address] Dr. Oneal VieyraUrea nitrogen/Creatinine [Mass ratio]17.0 mg/mgNoCleveland Clinic Marymount HospitalComment on above:Performed By: #### LIPID, TSH, CMP #### [facility] [address] [place] [address] Dr. Oneal Cooley 40-40-0925ZHZ4.403 uIU/mLCritically high0.358-3.740OhiohealthComment on above:Performed By: #### LIPID, TSH, CMP #### [facility] [address] [address] [address] Oneal Araiza RANDOM W/MICROSCOPICon [id number] SEENNormalNONE SEENOhiohealthComment on above:Performed By: #### UAMIC #### [facility] [address] [address] [address] Oneal VieyraBilirubin Ql (U)NegativeNormalNEGATIVEMercy Health [facility] on above:Performed By: #### UAMIC #### [facility] [address] [address] [address] Oneal VieyraCASTTWIN SEENNormalNONE SEENOhiohealthComment on above:Performed By: #### UAMIC #### [facility] [address] [address] [address] Oneal VieyraClarity (U)CLEARNormalCLEAROhiohealthComment on above: Performed By: #### UAMIC #### [facility] [address] [address] [address] Oneal Guo (U)LT. YELLOWNormalYTrinity Health System Twin City Medical CenterComment on above:Performed By: #### UAMIC #### [facility] [address] [address] [address] Oneal VieyraCrystals LM Nom (Urine sed)NONE SEENNormalNONE SEENOhiohealthComment on above:Performed By: #### UAMIC #### [facility] [address] [address] [address] No ChangEpithelial cells LM Ql (Urine sed)FEWAbnormalNONE SEEN /RAREThe [facility] CenterComment on above:Performed By: #### UAMIC #### [facility] [address] [place] [address] Dr. Oneal Whippleose Ql (U)>1000AbnormalNEGATIVEOhiohealthComment on above:Performed By: #### UAMIC #### [facility] [address] [address] [address] Oneal VieyraHemoglobin Ql (U)SMALLAbnormalNEGATIVEOhiohealth Comment on above:Performed By: #### UAMIC #### [facility] [address] [address] [address] Oneal VieyraKetones Ql (U)NegativeNormalNEGATIVEOhiohealthComment on above:Performed By: #### UAMIC #### [facility] [address] [address] [address] Oneal VieyraLEUKOCYTESNegativeNormalNEGATIVEOhiohealthComment on above:Performed By: #### UAMIC #### [facility] [address] [address] [address] Oneal VieyraMUCOUSNONE SEENNormalNONE SEENOhiohealthComment on above:Performed By: #### UAMIC #### [facility] [address] [address] [address] Oneal VieyraNitrite Ql (U)NegativeNormalNEGATIVEOhiohealthComment on above:Performed By: #### UAMIC #### [facility] [address] [address] [address] Oneal VieyrapH (U)6.0 [pH]Normal5-9OhiohealthComment on above: Performed By: #### UAMIC #### [facility] [address] [address] [address] Oneal VieyraExadfJTM4-8Lbrybj8-9Fyb [facility] HospitalComment on above:Performed By: #### UAMIC #### [facility] [address] [address] [address] Oneal VieyraSPEC GRAVITY<=1.222Egmnyfqb0.005-<=1.025[facility] Comment on above:Performed By: #### UAMIC #### [facility] [address] [address] [address] Oneal VieyraUA PROTEINNegativeNormalNEGATIVE/ TRACEOhiohealth Comment on above:Performed By: #### UAMIC #### [facility] [address] [place] [address] Dr. Oneal Erwin Qn (U)0.2 {Ashwini'U}/dLNormal0.2 - 1.0OhiohealthComment on above:Performed By: #### UAMIC #### [facility] [address] [place] [address] Dr. Oneal ValentinBCNONSathya SEENNormalNONE SEENOhiohealthComment on above: Performed By: #### UAMIC #### [facility] [address] [place] [address] Dr. Oneal Cain, RAND URon 30-73-7997jFOW<1.3Normal<=30.0The [facility] CenterComment on above:Performed By: #### MALBR #### [facility] [address] [place] [address] Dr. Oneal PA W/MICROSCOPICon 21-33-2132WJMXNWEKDLMR SEENNormalNONE SEENOhiohealthComment on above:Performed By: #### UAMIC #### [facility] [address] [place] [address] Dr. Oneal Miller Ql (U)NegativeNormalNEGATIVEOhiohealth Comment on above:Performed By: #### UAMIC #### [facility] [address] [place] [address] Dr. Oneal Duncan SEENNormalNONE SEENOhiohealthComment on above:Performed By: #### UAMIC #### [facility] [address] [place] [address] Dr. Oneal Negrtee (U)CLEARNormalCLEAROhiohealthComment on above: Performed By: #### UAMIC #### [facility] [address] [place] [address] Dr. Oneal Guo (U)YELLOWNormalYELLOWOhiohealthComment on above: Performed By: #### UAMIC #### [facility] [address] [address] [address] Oneal VieyraCrystals LM Nom (Urine sed)NONE SEENNormalNONE SEENOhiohealthComment on above:Performed By: #### UAMIC #### [facility] [address] [address] [address] No ChangEpithelial cells LM Ql (Urine sed)FEWAbnormalNONE SEEN /RAREThe [facility] CenterComment on above:Performed By: #### UAMIC #### [facility] [address] [address] [address] Oneal VieyraGlucose Ql (U)>1000AbnormalNEGATIVEOhiohealthComment on above:Performed By: #### UAMIC #### [facility] [address] [address] [address] Oneal VieyraHemoglobin Ql (U)SMALLAbnormalNEGATIVEMercy Health [facility] on above:Performed By: #### UAMIC #### [facility] [address] [address] [address] Oneal VieyraKetones Ql (U)NegativeNormalNEGATIVEOhiohealthComment on above:Performed By: #### UAMIC #### [facility] [address] [place] [address] Dr. Oneal VieyraLEUKOCYTESNegativeNormalNEGATIVEOhiohealthComeaton rapids medical center on above:Performed By: #### UAMIC #### [facility] [address] [address] [address] Oneal VieyraMUCOUSNONE SEENNormalNONE SEENOhiohealthComment on above:Performed By: #### UAMIC #### [facility] [address] [address] [address] Oneal VieyraNitrite Ql (U)NegativeNormalNEGATIVEOhiohealthComment on above:Performed By: #### UAMIC #### [facility] [address] [address] [address] Oneal VieyrapH (U)5.5 [pH]Normal5-9The [facility] CenterComment on above: Performed By: #### UAMIC #### [facility] [address] [address] [address] Oneal VieyraOahlwSYW5-0Cpfrrr1-0Riw [facility] CenterComment on above:Performed By: #### UAMIC #### [facility] [address] [address] [address] Oneal VieyraSPEC GRAVITY1.384Uqgtpv4.005-<=1.025The [facility] CenterComment on above:Performed By: #### UAMIC #### [facility] [address] [address] [address] Oneal VieyraUA PROTEINNegativeNormalNEGATIVE/ TRACEThe [facility] Comment on above:Performed By: #### UAMIC #### [facility] [address] [place] [address] Dr. Oneal VieyraUrobilinogen Qn (U)0.2 {Ashwini'U}/dLNormal0.2 - 1.0The [facility] CenterComment on above:Performed By: #### UAMIC #### [facility] [address] [place] [address] Dr. Oneal VieyraWBCNONE SEENNormalNONE SEENThe [facility] CenterComment on above: Performed By: #### UAMIC #### [facility] [address] [place] [address] Dr. Oneal Abebeice Visit (Cardiology)on [id number]-up visit Diagnoses/Problems Assessed CAD (coronary artery disease) [...] signing my name below, I, Manuel Fan LPNibe, attest that this documentation has been prepared under the direction and in the presence of Dr. Rafael Washington DO. All medical record entries made by the Scribe were at my direction and personally dictated by me. Ihave reviewed the chart and agree that the [...] for follow-up. She had inferior ST elevation RI with primary revascularization of the RCA in [...] Inhalation Aerosol SolutionINHALE 2 PUFFS EVERY 4 HOURSAS NEEDED FOR SHORTNESS OF BREATH Aspirin EC [...] 16Oct2021 11:41AM Heart Rate65, L Brachial Artery Sjdcbypp111, LUE, Sitting Kjsomvdtq08, LUE, Sitting Height5 ft 1 in Awopln037 lb BMI Oejelesxia10.04 kg/m2 BSA Calculated1.71 Tobacco Usea) Yes Patient encouraged to stop using tobacco productsYes Fall Screeningc) Not medically indicated Physical Exam Constitutional: alert and in no acute distress. Neck: neck is supple, symmetric, trachea midline, no masses and no thyromegaly . (more content not included)...NormalUH [facility] Screening.on [id number] risk assessmentc) Not medically indicatedNorth[facility] 250 DO Work Phone: Tobacco use status CPHSa) Yes-[facility]- [address] DO Work Phone: Tobacco Screening.YesNorthwest Hospital [facility]-[address] 250 DO Work Phone: CNOVon [id number] Visit (AGHWW1) --------FAUSTO CORRIGAN ([id number]) 1960 FDate Time Provider Department03/17/18 1:30 PM [...] future. Denies any other pedal complaints.PAST MEDICAL HISTORYDiagnosisDate- COPD (chronic obstructive pulmonary disease) (HCC)- Diverticulitis- [...] mg by mouth twice daily. Disp: Rfl:docusate sodi um (STOOL SOFTENER) 100 mg capsule Take 100 [...] OF wisdom teeth removed- PAST SURGICAL HISTORY OFRight knee repair and foot repair, MVAFAMILY HISTORYProblem [...] 3-4 daily Alcohol use: No Drug use: [place] OF [employer] noteMSK: + as noted in HPI.Physical Examination:On General Observation: Patient is a pleasant, cooperative, well developed 57year oldadult female. The patient is alert and oriented to time, place and person.Patient has normal affect and mood.Resp 12 Ht 149.9cm (4' 11 ) Wt 73 kg (161 lb) BMI 32.52 kg/m?Vascular: DP and PT pulses are palpable. CFT less than 3 seconds to alldigits bilateral. Skin temperature is warm to warm from proximal to distalbilateral. Hair growth is noted. +edema to lateral ankle right. Novaricosities noted.Neuro: Light touch intact bilateral. Protective sensation intact at all pedalsites via [place] [facility] 5.07 monofilament bilateral. Proprioception intactat the hallux bilateral. No clonus noted. Babinski reflex not elicitedbilateral.Derm: Skin texture and turgor within normal limits. Toenails normal inappearance. Webspaces 1-4 clean, dry, intact bilateral. No rashes,subcutaneous nodules, or open lesions noted. No ecc hymosis. No fractureblisters. No cellulitis, no lymphangitis, no SSI. No hyperkeratotic tissue.Musculoskeletal/Orthopaedic:Positive pain noted to palpation along the peroneal tendon course posterior andinferior to the lateral malleolus but not extending to the insertion at the 5thmetatarsal base right foot.. There is no pain to palpation to the styloidprocess of the fifth metatarsal base. Pain isnoted on resisted eversion ofthe foot. 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]Order(s):XR FOOT GENERAL 3V AP/LAT/OBL RT [[id number]] Order #: [id number] CONSULT TO ORTHOTIC/PROSTHETIC [[id number]] Order #: [id number]: 1Prescriptionsas of 03/17/2018 Sig: ALBUTEROL SULFATE HFA 90 MCG/* Inhale 1-2 Puffs as instructe* ALBUTEROL SULFATE 2.5 MG/3 ML* inhale contents of 1 vial in * DOXYCYCLINE HYCLATE 100 MG CA* Take 100 mg by mouth tw ice da* PREDNISONE 10 MG TABLET take 4 [...] mouth every * RANITIDINE 150 MG TABLET Hnpc045 mg by mouth twice da* DOCUSATE SODIUM 100 MG CAPSULE Take 100 mg by mouth three ti*Problem ListAs Of Date 03/17/2018 Noted Resolved 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 (REFER TO PRESCRIPTION NOTES). Disp: Rfl:0atenolol- chlorthalidone (TENORETIC) 50-25 mg per tablet Take 1 tabletbymouth once daily. Disp: Rfl: 0fluticasone-salmeterol (ADVAIR) 500-50 mcg/dose dsdv Inhale 1 Puff a sinstructed twice daily. Rinse mouth out after use [...] needed. Disp: Rfl:ranitidine (ZANTAC) 150 mg tablet Bvpn962 mg by mouth twice daily. Disp:Rfl:docusate sodium [...] [OTHER] MotherSocial History Marital status: Spouse name: Yearsof education: Number of children:Social History Main Topics Smoking status: Former Smoker Packs/day: 0.00 Years: 20.00 Types: Cigarettes Start date: 06/07/1997 Quit date: 06/26/2017 Smokeless tobacco: Never Used Comment: smokes 3-4 daily Alcohol use: No Drug use: [place] OF [employer] noteMSK: + as noted in HPI.Physical Examination:On General Observation: Patient is a pleasant, cooperative, well bwrsecgnn9 year oldadult female. The patient is alert and oriented to time, place and person.Patient has normal affect and mood.Resp 12 Ht 149.9 cm (4' 11 ) Wt 73 kg (161 lb) BMI 32.52 kg/m?Vascular: DP and PT pulses are palpable. CFT less than 3 seconds to alldigits bilateral. Skin temper ature is warm to warm from proximal todistal bilateral. Hair growth is noted. +edema to lateral ankle right.No varicosities noted.Neuro: Light touch intact bilateral. Protective sensation intact at allpedal sites via [place] [facility] 5.07 monofilament bilateral.Proprioception intact at the hallux bilateral. No clonus noted. Babinskireflex not elicited bilateral.Derm: Skin texture and turgor within normal limits. Toenails normal inappearance. Webspaces 1-4 clean, dry, intact bilateral. No rashes,subcutaneous nodules, or open lesions noted. No ecchymosis. No fractureblisters. No cellulitis, no lymphangitis, no SSI. No hyperkeratotictissue.Musculoskeletal/Orthopaedic:Positive pain noted to palp ation along the peroneal tendon courseposterior and inferior [...] is intact. No acute fractures ordislocations noted. Nobony cysts or tumors noted. Good tib fib [...] anticipated course of treatment.Rx for SAAFO from [facility] was given, patient to obtain and use to see ifimprove pain Follow up in 2 monthsYosi Yu DPM PGY2I personally saw and evaluated the patient. I reviewed the resident'snote. I agree with the resident's assessment and plan unless otherwisenoted.Thomas Delgadillo DPM, [facility] CenterCNPNon [id number] (PULMMN) --------FAUSTO CORRIGAN ([id number]) 1960 FDate Time Provider Rfqyvavfbo06/6/17 AIMEE HERNANDEZ During your visit today, we [...] - AnaphylaxisDate Reviewed: 07/26/2017Reviewed by: Sis Hogan [facility] - Fully AssessedReason for Visit: Insurance Authorization [[id number]] Cmt: pt called requesting prior auth for [...] FLUTICASONE 500 MCG-SALMETERO* Inhale 1 Puff as i nstructed t* ALBUTEROL SULFATE HFA 90 MCG/* Inhale [...] of Breath. Status:Closed by KRISTA LAGOS on 09/01/17[facility] HospitalCNCOmaria esther [id number] TextNovember 2016Fausto Corrigan[address] [address]Auaz Ms. Fausto Corrigan,It was a pleasure to see you in the Department of Pulmonary Medicine on07/26/2017.Attached please find a copy of your Visit Summary.I appreciate having the opportunity to see you. If I can be of furtherassistance to you, or if you have any questions regarding this report, pleasefeel free to contact my office.Sincerely,NATE Chaparro/Aidenment: Visit SummaryUniversity [facility]als [facility] [phone] distribution width Auto Ratio (RBC) 12.9 %Bugyzt04.5-15.0[facility] Medical Centerment on above:Performed By: #### CBC, CMP ####[address] AvFr[place]ville, [place] [phone] (RBC)10*6/uLNormal<0.01[facility] Comment on above:Performed By: #### CBC, CMP ####[address] [phone] (RBC) 5.08 10*6/uLNormal3.90-5.20[facility] HospitalComment on above:Performed By: #### CBC, CMP ####[facility] [place] [address] [phone] (HCT)47.7 %High36.0-46.0[facility] on above:Performed By: #### CBC, CMP ####[address] [phone] mass conc (Bld)15.3 g/mJSgulrh71.5-15.5CSheltering Arms HospitalComment on above: Performed By: #### CBC, CMP ####[place] [phone] kVRknwgp57.0-34.0[facility] on above:Performed By: #### CBC, CMP ####[place] [phone] mass conc (RBC) 32.1 g/nKVwyaav62.5-36.0[facility] on above:Performed By: #### CBC, CMP ####[place] [phone] pQWgyicc34.0-100.0[facility] on above:Performed By: #### CBC, CMP ####[place] [phone] mean volume (PMV)11.9 fLNormal 9.0-12.7CMadison Health on above:Performed By: #### CBC, CMP ####[place] [phone] 10*3/nEYfhhyy036-619PugzktnltProMedica Toledo Hospital on above:Performed By: #### CBC, CMP ####[place] [phone] (Leukocytes)13.36 10*3/uLHigh3.70-11.00 [facility] on above:Performed By: #### CBC, CMP ####[place] [phone] 19-46-7176IGBACituih Visit (PSSCMN) --------FAUSTO CORRIGAN ([id number]) 1960 FDate Time Provider Hxxlrkwmjg19/30/17 3:30 PM [facility] PSS[facility] During your visit today, we recorded the following information about you: Pulse Blood pressure Weight Height 75/minute 120/69 73 kg 1.52 Shannan Sosa DO 07/26/2017 5:18 PM SignedANESTHESIA PRE- OPERATIVE ASSESSMENT (PACE)SERVICE DATE: 07/26/2017SERVICE TIME: 4:56 PMASSESSMENT ANDamp;PLAN:Fausto Corrigan is a 57 year old female scheduled for sigmoid colectomy w/ GLOVE CUTTER perSurgery Request Case in MAIN on 08/03/17.PMH:COPD [...] Climb a flight of stairs or walk u p a hill (5.50 METs)Patient WILL accept blood products.BLOOD WORK/PRODUCTS ORDERED: Type and Screen, Con ABOHISTORY OF CHRONIC PAIN: NoPAIN MANAGEMENT OPTIONS: Routine/PRN IV and Final pain management plan will bediscussed on the day of surgery.ANESTHETIC OPTIONS: General and Final anesthesia management options will bediscussed on day of surgery.PRE-OP PLAN ORDERED: Not ApplicablePatient Instructed:? No solid food or non-clear liquids after midnight. Clear liquids alloweduntil two hours beforescheduled arrival.? Cont inhalers and bring them with her on DOSVital Signs:BP 120/69 Pulse 75 Ht 152 cm (4' 11.84ANDquot;) Wt 73 kg (160 lb 15 oz) SpO2 96% BMI 31.6 kg/b9Jcdhi signs completed by: IMPACTWeight acquired: per HANDamp;P. Height acquired: per HANDamp;PAirway Exam:MOUTH OPENING/TMJ: Full jaw ROMMICROGNATHIA/OVERBITE: NoMALLAMPATI SCORE is CLASS IIIUPPER LIP BITE TEST: Class I- Lower incisors can bite the upper lip above thevermillion lineDENTITION: IntactTHYROMENTAL DIST: W NLSHORT NECK: YesNECK CIRCUMFERENCE ANDgt;40 cm: NoNECK FLEX: Full ROMNECK EXTENSION: Full ROMAIRWAY HISTORY: No abnormal airway historyARKS AIRWAY DETAIL:N/ADATA:EKG READING: Unconfirmed - NSR, normal EKGOTHER TESTS: N/A Lab Value Units Date High Low HB 15.3 g/dL 07/26/2017 15.5 11.5HCT 47.7 % 46.0 36.0WBC 13.36 k/uL 07/26/2017 11.00 3.70 PLT 283 k/uL 07/26/2017 400 150 NA 139 mmol/L 07/26/2017 144 136 K 3.9 mmol/L 07/26/2017 5.1 3.7GLUC 133 mg/dL 07/26/2017 99 74 BUN 20 mg/dL07/26/2017 21 7CREAT 0.98 mg/dL 07/26/2017 0.96 0.58 PTSEC No results within date range. INR No results within date range. APTT No results within date range. ALT 19 U/L 07/26/2017 38 7 AST 16 U/L 07/26/2017 35 13 TBILI 0.2 mg/dL 07/26/2017 1.3 0.2 TSH No results within date range. Lab Value UnitsDate High Low HCGQT No results within date range. UHCG No results within date range. HCG, BODY* No results within date range. ABORHD No results within date range. ABSCREEN No results within date range .HBA1C: No results found for: HBA1C)Patient accompanied by daughterCase Discussed with Dr. Buenosin regards to postponing case till per pulm [...] 4:26 PM PAGER/CONTACT #:Referring Provider: ESEQUIEL THOMAS [[id number]]Allergies As of Date: 07/26/2017 Noted Allergy ReactionSULFA (SULFONAMIDE ANTIBIOTICS) 06/07/2017 4 - Hives 10 - AnaphylaxisDate Reviewed: 07/26/2017Reviewed by: Sis Duke Samira [facility] - Fully AssessedPrimary Visit Diagnosis:Pre-op evaluation [Z01.818]Prescriptions as of 07/26/2017 Sig: ALBUTEROL SULFATE 2.5 MG/3 ML* inhale contents of 1 vial in * DOXYCYCLINE HYCLATE 100 MG CA* Jphq483 mg by mouth twice da* PREDNISONE 10 [...] 07/26/17Chart Close Cosign Required by: James Vogel III[]NormalBluffton HospitalCNOVOffice Visit (IMPAMN) --------FAUSTO CORRIGAN ([id number]) 1960 FDate Time Provider Ayhfaeljno22/30/17 2:15 PM RIVERA PATRICIA) JULIO C During your visit today, we recorded the following information about you: Temperature Pulse Blood pressure Weight 97.6 degrees 75/minute 120/69 73 kg Height 1.524 Alejandra Patricia MD 07/26/2017 8:42 PM AddendumHISTORY AND PHYSICAL EXAMINATION (IMPACT)SERVICE DATE: 07/25/2017SERVICE TIME: 1:49 PMPRIMARY CARE PHYSICIAN: No PcpCHIEF COMPLAINT/HISTORY OF PRESENT ILLNESS:Ms. Corrigan is a 57 yearold female referred to me for preoperative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 results within daterange. Lab Value Units Date High Low HCGQT [...] July 26, 2017 : 4:26 PM PAGER/CONTACT #:[facility] ID: [phone]: Sis Kirkpatrick NService: (none)Author Type: (none)Type: Progress NotesFiled: 07/26/2017 4:05 PMNote Text:Fausto Corrigan is a 57 year old female [facility]erring Surgeon: Dr. Fernandez of Surgery: 08/03/2017Planned Surgery/Procedure: Sigmoid Colectomy w/ CRAAllergies have been reviewed and verified. They include the following:Sulfa (Sulfonamide Antibiotics)Social HistorySubstance Use Topics- Smoking status: Former Smoker Years: 20.00 Types: Cigarettes Start date: 06/07/1997 Quit date: 06/26/2017- Smokeless tobacco: Never Used Comment: smokes 3-4 daily- Alcohol use NoMedications reviewed and updated: Armida Kirkpatrick NNSelect Medical [facility] ID: [id number]: Ivan Sheffield) MelitaService: (none)Author Type: PhysicianType: Progress NotesFiled: 07/27/2017 11:34 PMNote Text:DIABETES INITIAL CONSULTPATIENT NAME: Fausto CorriganMRN: [id number] DATE: 07/26/2017SERVICE TIME:REASON FOR CONSULT: DM Type 2REQUESTING PHYSICIAN:Ivan Hyde MD[address] [address]XLVITVV CARE PHYSICIAN: No PcpSUBJECTIVEHISTORY OF PRESENT ILLNESS: Ms. Corrigan is a 57 year old female presentingas a new patient to me regarding DM Type 2. She was initially diagnosedwith prediabetes in 2008 . She does have a family history of diabetesmellitus in her Mother. The patient has no known microvascularcomplications of diabetes. aFusto has no know macrovascular complicationsof diabetes.. She [...] heart disease [OTHER] MotherSocial HistorySubstance Use Topics- Smokingstatus: Former Smoker Years: 20.00 Types: Cigarettes Start [...] tablet Take 1 tablet by mouthevery 4 hoursas needed. Disp: Rfl:acetaminophen (TYLENOL EXTRA STRENGTH) 500 [...] or eye painCardiac: denies chest pain, heart pa lpitations or orthopneaPulmonary: dyspneaGI: denies nausea, vomiting, diarrhea or constipationNeuro: denies numbnes/tingling in hands or feet and denies seizuresMusc: denies history of upper or lowerextremity weaknessEndocrine: denies polyuria, polydipsia, nocturia, blurry vision orexcessive fatigu eHematology: Negative for anemia, easy bleeding and bruising.OBJECTIVEPHYSICAL EXAM:Wt 73 kg (161 lb) BMI 31.61 kg/d9Qvillgo: Well appearing, alert, in no acute distress, [...] years. She will start taking it again pjbxrjogd931 mg twice a day. She has medication at home. Of importance is thattoday her fasting blood sugar was 1 33 mg/dL. We ordered a hemoglobin G7snedya has not been done. We will see her back in 6 weeks a repeathemoglobin A 1c. Her blood sugars should improve once she is off steroids.SIGNATURE: Ivan Hyde, MDDATE:July 26, 2017TIME: 2:32 PMNAdena Health SystemPROGRESSHNO ID: [id number]: Cristina Vernon RtService: (none)Author Type: (none)Type: Progress NotesFiled: 07/26/2017 1:40 PMNote Text: Radiology Service Progress NotePATIENT NAME: Fausto CorriganMRN: [id number] OF SERVICE: July 26, 2017TIME: 1:40 PMPATIENT IDENTITY VERIFICATION COMPLETED USING TWO (2) METHODS: Patientconfirmed name verbally and Date of .PATIENT GENDER DATA: MalePATIENT RELEVANTIMPLANT DATA REVIEWED: Not ApplicableRADIOLOGY DEPARTMENT: General X-ray: Exam(s) Completed: Chest X-RayPERIPHERAL IV DATA: Not applicableSIGNED BY: Cristina Vernon RtOct2016 1:40 PMNAdena Health SystemPROGRESSHNO ID: [id number]: Aimee Gonzalez: (none)Author Type: PhysicianType: Progress NotesFiled: 07/26/2017 3:23 PMNote Text:Respiratory InstitutePulmonary ConsultationCC: Pre-operative evaluation Consultation requested by Dr. Thomas for a pre-operative pulmonaryevaluation. My final recommendations will be communicated to [facility] provider by way of the shared medical record forinternal providers or letter via the [employer] forexternal providers.HISTORY OFPRESENT ILLNESSFausto Corrigan is a 57 year old female with a history of COPD who presentsfor a pre-op evaluation for a sigmoid colectomy w/ colorectal anastomosisfor repair of colovaginal fistula.Pt previously has had her COPD treated by her family physician. Not on anyinhalers currently but been on di fferent ones before. 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, [place] with some occupational exposure from thatOff an on smoking for 20 yearsQuit a month agoCURRENT MEDICATIONS AND ALLERGIESCurrent Outpatient Prescriptions:albuterol (PROVENTIL) 2.5 mg /3 mL(0.083 %) nebulizer solution inhalecontents of 1 vial in nebulizer four times a day if needed Disp:Rfl: 0doxycycline hyclate (VIBRAMYCIN) 100 mg capsule Take [...] mood disorder and recentpsychosocial stressors.HEMATOLOGIC/LYMPHATIC/IMMUNOLOGIC:Negative for prolonged bleeding,bruising easily, and swollen nodes.ENDOCRINE: [...] PFTs and radiographsRadiology:PFT:SPIROMETRY WITH DILATOR IF OBSTRUCTED ([id number])- ordered on 07/26/17 [facility] [address] [place] [address] Test Date: 4186-79-05Aow Name: FAUSTO CORRIGAN Department: Room:Gender: Female Researcher: DIO VDOB: 1960 Requested By:Order Number: [id number] Reading MD: Interpretive StatementsTest no. 2 07/26/2017 12:14:11PM PRE/POST- ATS acceptability andrepeatabilitystandards for spirometry met.Medications and Allergies were reviewed forpossibledrug interactions per policy MM-102. No contraindications orsensitivities werenoted. Respiratory meds taken in past 72H: Albuterol / 16 hours beforetesting. 4 puffs albuterol (360 mcg) delivered by MDI via valved holding chamber, HRpre=80/min, HRpost= 72/min. /JAQUAN//DIO nguyen??IMPRESSION: [facility] PulmonaryFunction Lab Pred LLN ULN Pre % Post % %chgDate [id number] 11:44AM 12:10PM Height 152.4 152.4Weight 72.6 72.6-------- FVC 2.96 2.35 3.57 2.11 71 2.13 72 1FEV 1 2.32 1.80 2.83 1.43 62 1.53 66 7FEV1%F 79.12 69.33 88.92 67.67 86 71.55 90 6FEV 2 2.33 1.59 3.07 1.65 71 1.75 75 6FEV 3 2.58 1.96 3.20 1.78 69 1.88 73 5FEV3%E 94.92 89.56 100.3 84.50 89 87.97 93 4MEF 50 3.10 1.93 4.28 1.06 34 1.36 4429FIF 50 1.99 2.6365R78/75 2.34 1.25 3.42 0.67 29 0.84 3625FE%FIF 53.13 61.7602SHU1 1.95 2.05 5PEF 5.36 3.63 7.09 4.30 80 5.37 81195WGR 10.82 10.59-6VILEWR7.08 0.04-56VBe%FV 4.39 3.07 -30VBEex 0.09 0.07-29 VC MAX 2.96 2.35 3.57 2.11 71 2.13 72 1 Cardiac:EKG - NSRASSESSMENT AND PLANViola Shekhar is a 57 year old female with:(Z01.818) Pre-op evaluation (primary encounter diagnosis)(J44.9) COPD with chronic bronchitis (HCC)(J30.9) Allergic rhinitis, unspecified chronicity, unspecifiedseasonality, unspecified trigger(Z87.891) Former smoker(N82.4) Colovaginal fistula1) Preoperative Risk Calculation:Thefeatures of this patient's history that contribute to the pulmonaryrisk assessment include: age, COPD, general anesthesia, surgery >2 hoursShe has an intermediate risk (44 points) of post-operative pulmonarycomplications based on the ARISCAT Index. The validated risk calculatorprovides a risk estimate of post-op pulmonary complications and isanticipated to aid in surgical decision-making and informed patientconsent. However risk can be accepted given the potential benefit of thisinterventionand it is not prohibitive. The absolute assessment [...] (Gurinder Respiratoray Failure Index. OLAF Fairchild. Nancie Cqlg6222; 232: 242). THaving a respiratory infection within the past month increases the risk. Iagree with postponing surgery until Aug 24 to reduce her risk.RECOMMENDATIONS:In order to minimize the risk of complications and optimize pulmonarystatus, we recommend the following:-Encourage aggressive incentive spirometry hourly both ayse- operativelyand post-operatively as tolerated-Early ambulation and physical therapy as tolerated umsr-yeelztxrlze-Suzmfsbn narcotics as much as possible- Bronchodilators as needed for wheezing or shortness of breath-Ideally we recommend smoking cessation for >4 weeks before anyintervention-Please feel free to call the Pulmonary Consultationservice to assist inthe postoperative pulmonary care if needed.2) COPD, grade C FEV1 62% - No comorbid diastolic dysfunction that she is aware of - Prescribed Advair given her hx of allergic rhinitisand hx of asthma asa child - Continue ASCENCION nebulizer prn - Prescribed rescue inhaler - Up to date on pneumonia shots - Pt declines flu shot today3) Allergic rhinitis - Discussed nasal sprays / rinsesand RAST testing. Pt declined allergytesting today. Will continue to take OTC treatment. - Frequentepisodes of bronchitis / sinusitis - will consider humoralimmune panel testing in future4) Former smoker - Encouraged continued cessation5) Lung cancer screening - Discussed with her consideration oflung cancer screening. Pt is notinterested today.Discussed with the patient who agrees to the plan.Will follow up day prior to her surgery Aug 23 to make sure she'sfeeling better and recovered from illnessAmy Santana, MDPulmonary and Critical Care MedicineRespiratory InstituteSalem Regional Medical CenterNormalCSheltering Arms HospitalType and SCR (30D)on 25-87-6092ABA/RH(D)PositiveNormalCMadison Health on above: Performed By: #### TSCR30 ####[facility] [address] [place], [place] [phone] ScreenNegativeNoDayton VA Medical Center on above:Performed By: #### TSCR30 ####[facility] [address] [place], [place] [phone] CHEST 2V FRONTAL/LATon 58-73-7044XS CHEST 2V FRONTAL/LAT* * *Final Report* * *DATE OF EXAM: Jul 26 2017 12:26PM AOX 5291 - XR CHEST 2V FRONTAL/LAT / REASON: Chronic obstructive pulmonary disease, unspecified * * * * Physician Interpretation * * * * EXAMINATION: CHEST RADIOGRAPH (2 VIEW FRONTAL and LATERAL)Clinical History:Chronic obstructive pulmonary disease, unspecifiedM: XC2_3Comparison: CT abdomen [...] upper abdomen suggest prior cholecystectomy.IMPRESSION:No acute radiographic abnormality.Cut Out Marker: PSCB Transcribe Date/Time: Jul 26 2017 2:28PDictated by : FABY SWANSON MDThigrady examination was interpreted and the report reviewed and electronically signed by: CORNELIUS BEAR MD on Jul 26 2017 4:55PM [id number]_YUYRZOQJJohsbeWnqmsoarl Clinic ClevelandHISTORY PHYSICALon [id number] PHYSICALHNO ID: [id number]: Rivera Sheffield) Galileoe: (none)Author Type: PhysicianType: HANDPFiled: 07/26/2017 8:42 PMNote Text:HISTORY AND PHYSICAL EXAMINATION (IMPACT)SERVICE DATE: 07/25/2017SERVICETIME: 1:49 PMPRIMARY CARE PHYSICIAN: No PcpCHIEF COMPLAINT/HISTORY [...] Assessment section for details of any comorbidities.Patient isAble to Perform the Following Physical Activity:Climb a [...] CHERI- PAST SURGICAL HISTORY OF gullbladder removed- PASTSURGICAL HISTORY OF rt rotator cuff repair- PAST [...] days then 3 tablets once... (REFER TO PRESCRIPTIONNOTES). Disp: Rfl:0atenolol- chlorthalidone (TENORETIC) 50-25 mg per tablet Take 1 [...] (PERCOCET) 5-325 mg tablet Take 1 tablet bymouthevery 4 hours as needed. Disp: Rfl:acetaminophen (TYLENOL [...] or fevers.Neuro: No history of TIA's, stroke, ASSEMBLER MOVEMENT tumor, impaired sensorium,hemiplegia, paraplegia or quadriplegia. No neurological symptoms orproblems.Respiratory: COPD on nebulizersCardiovascular: No history of HTN requiring medication, no history ofangina, CHF, RI, cardiac surgery or stents. Denies rest pain, gangrene orrevascularization/amputation for PVD. No history of cardiovascularsymptoms or problems.GI: Peptic Ulcer Disease on ZantacGU: No history of UTI in past 6 weeks. No history of renal failure. Notcurrently on or requiring dialysis. No history of symptoms or problems.MASSOTHERAPIST: No vaginal bleeding due to menopause and no abnormal vaginaldischarge., LMP: N/AEndocrine: No historyof diabetes. Has not taken steroids within the past30 days. No history of endocrinological symptomsor problems.Hematology: No history of bleeding or clotting disorder. No history ofhematological symptoms or problems.Oncology: No history of CA metastasis, chemo within 30 days, orradiotherapy rzhiyh83 days. No history of oncological symptoms orproblems.Psych: No history of psychiatric symptoms or problems.Skin: Negative for lesions, rash, and itching.PHYSICAL EXAMVITALS: BP 120/69 Pulse 75 Temp (Src) 97.6 (Oral) Ht 5' 0 (1.52m) Wt 161 lb (73.0kg) SpO2 96% BMI 31.44 kg/(m2).General: Alert and orientedSkin: Normal color, no rash, no lesions.HEENT: EOM, pupils equal, round and react irving.Cardiovascular: Normal S1 AND S2, no rubs, murmurs or gallops. No JVD. Pulseregular.Lungs: Normal breath sounds, no wheezes or crackles.Abdomen: Soft, non-tender, no rigidity.Extremities: No deformity, no edema or tenderness, no joint swelling orclubbing.Neurological: Normal cognition and motorskills.Pulses: Carotid and radial pulses normal +2.ASSESSMENTMsChrista Corrigan is a 57 year old female referred to me for preoperativeevaluation. Patient has the following medical comorbidities which mightaffect the perioperative course:COPD- on PrednisoneRecent URI -HTNDiverticulitisPatient's RCRI (Revised Cardiac Risk Index: CAD/CHF/Stroke or TIA/SCr>2/DMon Insulin/High Risk Surgery) score is 0 and is at low risk for majoradverse cardiac events in the perioperative period.Diagnostic tests reviewedfor today's visit:Most recent labsPLAN/RECOMMENDATIONSCARDIAC: Patient is at optimal cardiac condition for scheduled surgery /procedure.PULMONARY: Patient is at optimal Pulmonary status for scheduledsurgery /procedure.Slightly higher risk of pulmonary complications because of COPDVASCULAR/ANTICOAGULATION: VTE prophylaxis as deemed appropriate by the surgical service.ENDOCRINOLOGY - On Prednisonenow and had a course of steroids recently -recommend stress dose steroids - Hydrocortisone 50 mg IV before inductionand Q8 for 24 hoursEKG- Normal Sinus RhythmPatient is optimally prepared for surgery.ADDENDUM: Labs are back - reviewed - WBC count 13.36 - pt on Steroids.Otherwise labs unremarkable-pt is optimally prepared for SurgeryPatient Instructions: As per patient instructions section.I have discussed the above recommendations with the patient in detail, infrank and lay terms, and provided a written summary of instructions asneeded. We have discussed that no surgery is without risk, butthat thegoal of preoperative assessment is to optimize that risk, and that wasclearly understood bythe patient. I have given ample opportunity for thepatient to ask questions, and answered all questions to their statedsatisfaction.SIGNATURE: Rivera Patricia MD PATIENT NAME: Fausto CorriganDATE: 2016 : 1:49 PMNormal [facility] [id number] Update (CORSMN) --------FAUSTO CORRIGAN ([id number]) 1960 FDate Time Provider Department06/08/17 ESEQUIEL THOMAS During your visit today, we recorded the following information about you:Allergies As of Date: 06/08/2017 Noted Allergy ReactionSULFA (SULFONAMIDE ANTIBIOTICS) 06/07/2017 4 - Hives 10 - AnaphylaxisDate Reviewed: 06/07/2017Reviewed by: Nicolle (Josr) JOSR Moncada - Fully AssessedPrimary Visit Diagnosis: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]Order(s):SURGICAL REQUEST - ELECTIVE [2302991] Order #: [id number]: 1 EMMIWHAT TO EXPECT DURING YOUR HOSPITAL STAY [7492812] Order #: [id number]: 1 CBC [SQCBC] Order #: [id number] FUTURE COMP METABOLIC PANEL [SQCMP] Order #: [id number] FUTURE CONFIRM BLOOD TYPE [SQCONABO] Order #: [id number] FUTURE TYPE + SCREEN,30 DAY [LSRSQU83] Order #: [id number] FUTURE ECG COMPLETE W INTERPRETATION [ECG01] Order #: [id number] FUTURE REFER FOR ADMIT INTERVIEW [0965356] Order #: [id number] HANDP FOR SURGERY [W6204ODO] Order #: [id number] CONSULT TO PATIENT EDUCATION [19991031] Order #: [id number]: 1 CONSULT TO ANESTHESIOLOGY [9001] Order #: [id number]: 1 CONSULT TO INT MED-IMPACT [6029403] Order #: [id number]: 1 CONSULT TO PULMONARY MEDICINE [[id number]] Order #: [id number]: 1 CONSULT TO ENDOCRINOLOGY [9007] Order #: [id number]: 1Prescriptions as of 06/08/2017 Sig : OXYCODONE-ACETAMINOPHEN 5 MG-* Take 1 tablet by mouth every * ACETAMINOPHEN 500 MG TABLET Take 1,000 mg by mouth every * RANITIDINE 150 MG TABLET Take 150 mg by mouth twice da* DOCUSATE SODIUM 100 MG CAPSULE Take 100 mg by mouth three ti*Problem List As Of Date 06/08/2017 Noted Resolved 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Follow-up and Disposition History RecordedEncounter Number: [id number] Status:Closed by ESEQUIEL THOMAS MD, FACS on 06/09/17[facility] [id number] Visit (TOMAS) --------FAUSTO CORRIGAN ([id number]) 1960 [facility] Time Provider Department06/07/17 1:20 PM ESEQUIEL THOMAS During your visit today, we recorded the following information about you: Temperature Pulse Bloodpressure Weight 97.8 degrees 79/minute 119/76 73.5 kg Height 1.537 Geovany Thomas MD FACS 06/07/20173:44 PM SignedNew Patient ConsultREASON FOR SAVANNAFausto Corrigan is a 56 year old female who is [facility] (Colovaginal Fistula). My finalrecommendations will be communicated back to the requesting physician by theway of the shared medical record, fax, or via US MailHistory of Present Illness:56 year old female with yellow/brown colored drainage from vagina x 2 months.She has a history of diverticular disease and recently developed apelvicabscess followed by colonoscopy and CT scan which still demonstrated theabscess and free intraperitoneal air.She is taking stool softener's tid. Bowel function is once every 3 days, softformed stool. Denies rectal bleeding.She had a hysterectomy a long time ago.She has no urinary symptoms andhas no history of urinary symptoms.C/o abdominal pain during BMs.She does have COPD from mcfp smoking, but says she only has 3-4 cigarettesa day at the present time. is a user of tobacco also. He does not use a filter.FUNCTIONAL STATUS: Do moderate work around the house such as vacuuming ,sweeping floors, or carrying in groceries (3.50 METs)PAST MEDICAL HISTORYDiagnosis Date- Diverticulitis- Fistula- GERD (gastroesophageal reflux disease)- HyperthyroidismPAST SURGICAL HISTORYProcedure Laterality Date- PAST SURGICAL HISTORY OF CHERI- PAST SURGICAL HISTORY OF gullbladder removed- PAST S URGICAL HISTORY OF rt rotator cuff repair- PAST SURGICAL HISTORY OF appendix removed- PAST SURGICALHISTORY OF wisdom teeth removedFAMILY HISTORYProblem Relation Age [...] medications for this visit.CURRENT ALLERGIESALLERGIESAllergen Reactions- Sulfa (Sulfonamide* Hives, AnaphylaxisREVIEW OF SYSTEMSPAIN ASSESSMENT: PainPain Score: 4/10Pain Location: AbdomenDescription: SoreDuration Amount of Time: 3Duration Units: MonthsFrequency: IntermittentIntervention: RepositionGeneral: MalaiseNeuro: No history of TIA's, stroke, ASSEMBLER MOVEMENT tumor, impaired sensorium, hemiplegia,paraplegia or quadraplegia. No neurological symptoms or problems.Respiratory: COPDCardiovascular:Hx HTNGI: Positive for GERD, PUD, Heartburn, Abdominal pain, Diverticulitis, Historyof polypsGU: Nohistory of UTI in past 6 weeks. No history of renal failure. Notcurrently on or requiring dialysis.No history of symptoms or problems.MASSOTHERAPIST: yellow/brown drainage from vagina x2 months : [...] Supple, no adenopathy; thyroid symmetric, normal size, nobruitsLungs: Shortness of breath:Heart: Not examinedExtremities: No deformities, edema, skin discoloration, clubbing or cyanosis.Good capillary refill.Neuro: DeferredAbdomen: Normal abdominal examAnor ectal: She would not tolerate anorectal examination or endoscopy.Anoscopy:The patient was placed inleft lateral position. After digital exam with alubricated [...] FACSDATE: 06/07/17TIME: 2:32 PMReferring Provider: ZAID MICHAELS [[id number]]Allergies As of Date: 06/07/2017 Noted Allergy ReactionSULFA (SULFONAMIDE ANTIBIOTICS) 06/07/2017 4 - Hives 10 - AnaphylaxisDate Reviewed: 06/07/2017Reviewed by: Nicolle (Josr) JOSR Moncada - Fully AssessedReason for Visit: Consult [173] Cmt: Colovaginal FistulaPrimary Visit Diagnosis:Diverticulitis large intestine w perforation and colovaginal fistula [K57.32]Prescriptions asof 06/07/2017 Sig: OXYCODONE-ACETAMINOPHEN 5 MG-* Take 1 tablet by mouth every * ACETAMINOPHEN 500 MG TABLET Take 1,000 mg by mouth every * RANITIDINE 150 MG TABLET Take 150 mg by mouth twice da* DOCUSATE SODIUM 100 MG CAPSULE Take 100 mg by mouth three ti*Problem List As Of Date: 06/07/2017(None) Status:Closed by ESEQUIEL THOMAS MD, FACS on 06/07/17Normal [facility] CompanyTORY PHYSICALon [id number] PHYSICALHNO ID: [id number]: Esequiel Goodwin: (none)Author Type: PhysicianType: HANDPFiled: 06/07/2017 3:44 PMNote Text:New Patient ConsultREASON FOR Rafia Corrigan is a 56 year old female who is [facility] a [facility] (Colovaginal Fistula). Myfinal recommendations will be communicated back to the requestingphysician by the way of the sharedmedical record, fax, or via US MailHistory of [...] pain during BMs.She does have COPD from mcfp smoking, but says she only has 3-4cigarettes [...] bymouth every 8 hours as needed. Disp: Rf l:ranitidine (ZANTAC) 150 mg tablet Take 150 mg by mouth twice daily. Disp:Rfl:No current facility-administered medications for this visit.CURRENT ALLERGIESALLERGIESAllergen Reactions- Sulfa (Sulfonamide * Hives, AnaphylaxisREVIEW OF SYSTEMSPAIN ASSESSMENT: PainPain Score: 4/10Pain Location: AbdomenDescription: SoreDuration Amount of Time: 3Duration Units: MonthsFrequency: IntermittentIntervention: RepositionGeneral: MalaiseNeuro: No history of TIA's, stroke, ASSEMBLER MOVEMENT tumor, impaired sensorium,hemiplegia, paraplegia or quadraplegia. No neurological symptoms orproblems.Respiratory: COPDCardiovascular: Hx HTNGI: Positive for GERD, PUD, Heartburn, Abdominal pain, Diverticulitis,History of polypsGU:No history of UTI in past 6 weeks. No history of renal failure. Notcurrently on or requiring dialysis. No history of symptoms or problems.MASSOTHERAPIST: yellow/brown drainage from vagina x2 months : N/AEndocrine: Diabetes Mellitus with diet controlHematology: No history of bleeding or clotting disorder. Pt is not takinganti-coagulation or platelet medications. No history of hematologicalsymptoms or problems.Oncology: No history of CA metastasis, chemo within 30 days, orradiotherapy within 90 d ays. Has not lost 10% of body wt in 6 months. Nohistory of oncological symptoms or problems.Psych: No history of psychiatric symptoms or problems.Musculoskeletal: Back painSkin: Negative for lesions,rash and itching.Anemia: NoPHYSICAL EXAMINATIONBP 119/76 Pulse 79 Temp (Src) 97.8 (Oral) Ht 5' .5 (1.54m) Wt 162lb (73.5kg) SpO2 95% BMI 31.11 kg/(m2).General Appearance: OverweightSkin:Skin color, texture, turgor normal, no suspicious rashes [...] anesthesia preoperatively.Esequiel Thomas MD FACSDATE: 06/07/17TIME: 2:32 PMNAdena Health SystemSR-CT ABD/PELVIS W CON IMPORTon [id number]-CT ABD/PELVIS W CON IMPORTImages were obtained outside of [facility] [id number] Health System Vital Signs Date TimeVital SignValuePerforming VkttasdmoLvgfrizj73-86-1025 10:22-0400 Diastolic blood riavdajw43 mm[Hg]Dara Mills MD Work Phone: [phone] [place], [place] 4431910-15-2025 10:22-0400 Systolic blood awklhqud554 mm[Hg]Dara Mills MD Work Phone: 1(795)[address]10-15-2025 09:42-0400 Body nmhebz635.67 cmSnadeem Mills MD Work Phone: 1(669)[address]10-15-2025 09:42-0400 Body mass index (BMI) [Ratio]24.6 kg/i4BigucfDara Mills MD Work Phone: 1(724)[address]10-15-2025 09:42-0400 Body tiiigykoakt06.5 [degF]Dara Mills MD Work Phone: [phone])[address] [place], [place] 4431910-15-2025 09:42-0400 Body uovahw05.11 kgDara Mills MD Work Phone: [phone])[address] [place], [place] 4431910-15-2025 09:42-0400 Heart rate73 /minSnadeem Mills MD Work Phone: [facility]10-15-2025 09:42-0400 Respiratory rate18 /minSnadeem Mills MD Work Phone: 1(196)571-[address] [place], [place] 7300210-15-2025 09:42-0400 SaO2% (BldA) [Mass fraction]94 %Dara Mills MD Work Phone: [phone] [place], [place] 7300208-25-2025 15:19-0400 Diastolic blood sebkolxn94 mm[Hg]Veronique Aichholz SUPPLY PERSON Work Phone: [facility] HospitalLwmwucxebq90-22-3269 15:19-0400Systolic blood ijdkdjwi687 mm[Hg]Veronique Aichholz SUPPLY PERSON Work Phone: [facility] HospitalJdadrulhby09-06-7760 14:33-0400Body mass index (BMI) [Ratio]24.02 kg/m2Lisa Aichholz SUPPLY PERSON Work Phone: [facility] HospitalLzjjcycyia10-66-6225 14:33-0400Body temperature 97.3 [degF]Veronique Aichholz SUPPLY PERSON Work Phone: [facility] HospitalNscvjbkxud37-29-7666 14:33-0400Body nmihrh51.6 kg Veronique Aichholz SUPPLY PERSON Work Phone: [facility] HospitalSyidwfkeym81-80-0908 14:33-0400Heart rate65 /min Veronique Aichholz SUPPLY PERSON Work Phone: [facility] HospitalClkzlteoag13-40-6863 14:33-0400Respiratory rate20 /minLisa Aichholz SUPPLY PERSON Work Phone: [place] [address]Ljjnreelgv60-10-3617 14:33-2079HdX4% (BldA) [Mass fraction]96 %Veronique Aichholz SUPPLY PERSON Work Phone: [facility] HospitalFbaapdlngu91-66-9188 09:53-0400Body ymuwbb930.2 Hira Yao MD Work Phone: [facility] HospitalYmphgrfejd60-50-3934 09:53-0400Body mass index (BMI) [Ratio]23.79 kg/x2DgwesiPantera Yao MD Work Phone: [facility] HospitalEdvedlnude31-84-2430 09:53-0400Body slbecg25.06 kgPantera Yao MD Work Phone: [facility] HospitalAvwvgyavxb56-58-8745 09:53-0400Diastolic blood mjyydpso79 mm[Hg]Pantera Yao MD Work Phone: [facility] HospitalEqidqqrjgq28-67-3285 09:53-0400Systolic blood mm[Hg]Pantera Yao MD Work Phone: [facility] HospitalAvthybfhvi60-36-0490 10:19-0400Body gdbcym090.67 Addy Mills MD Work Phone: [phone])[address]08-22-2025 10:19-0400 Body mass index (BMI) [Ratio]24.7 kg/q5SzfezfDara Mills MD Work Phone: [phone])[address]08-22-2025 10:19-0400 Body ltexps14.51 kgDara Mills MD Work Phone: [phone])[address]07-10-2025 09:45-0400 Body mass index (BMI) [Ratio]25.84 kg/m2Veronique Harris SUPPLY PERSON Work Phone: [facility] HospitalAismtbqcud88-40-3888 09:45-0400Body temperature 97.5 [degF]Veronique Harris SUPPLY PERSON Work Phone: [facility] HospitalGwmcvawbxr54-69-9008 09:45-0400Body .05 kgVeronique Harris SUPPLY PERSON Work Phone: [facility] HospitalHxaasnixgs03-57-8739 09:45-0400Diastolic blood yesnmche49 mm[Hg]Veronique Steven SUPPLY PERSON Work Phone: [facility] HospitalIgyynhoafa26-25-0476 09:45-0400Heart rate67 /min Veronique Harris SUPPLY PERSON Work Phone: [facility] HospitalXusrqeixfi06-07-2519 09:45-0400Respiratory rate18 /minLisa Santiagoz SUPPLY PERSON Work Phone: [facility] HospitalIhzdkknhtf25-78-5383 09:45-3217JxC8% (BldA) [Mass fraction]97 %Veronique Santiagoz SUPPLY PERSON Work Phone: [facility] HospitalDpaxwktinb86-27-4689 09:45-0400Systolic blood mm[Hg]Veronique Mosheramauryz SUPPLY PERSON Work Phone: [facility] HospitalEeaydaghdf29-33-8106 13:36-0400Body zjeyyt578.2 cmAnthojolene Rusher DPM Work Phone: [facility] HospitalFqmfaxodsf72-82-1012 13:36-0400Body mass index (BMI) [Ratio]26.4 kg/l4Mhewhya Rusher DPM Work Phone: [facility] HospitalFcgswnlxqx17-86-6007 13:36-0400Body akxjza53.41 kgAnthony Rusher DPM Work Phone: [facility] HospitalEsqacyppva93-82-9776 15:24-0400Body .2 Lindaluis Mosheramaurykali SUPPLY PERSON Work Phone: [facility] HospitalFhtlaegudt60-20-9527 15:24-0400Body mass index (BMI) [Ratio]26.4 kg/m2Veronique Mosherholz SUPPLY PERSON Work Phone: [facility] HospitalVqfiqogxvh84-80-6676 15:24-0400Body temperature 98.49 [degF]Veronique Zhangmaria teresaz SUPPLY PERSON Work Phone: [facility] HospitalDqfxpysaps52-59-7841 15:24-0400Body drulkm22.41 kgVeronique Pamelaz SUPPLY PERSON Work Phone: [facility] HospitalDultkzrmka72-99-9848 15:24-0400Diastolic blood abzlomtb20 mm[Hg]Veronique Zhangmaria teresaz SUPPLY PERSON Work Phone: [facility] HospitalGdufkpdkbl61-18-2262 15:24-0400Heart rate69 /min Veronique Harris SUPPLY PERSON Work Phone: [facility] HospitalBlcdsxbcbu92-01-5329 15:24-0400Respiratory rate18 /minLisa Pamelaz SUPPLY PERSON Work Phone: [facility] HospitalImmkzimlct94-87-1162 15:24-6987HjU9% (BldA) [Mass fraction]93 %Veroniqueswati Santiagoz SUPPLY PERSON Work Phone: [facility] HospitalMlmtnsbejz97-37-2027 15:24-0400Systolic blood wcgwopea903 mm[Hg]Veronique Pamelaz SUPPLY PERSON Work Phone: [facility] HospitalGuzpthhbwc81-99-2064 16:20-0500Body mass index (BMI) [Ratio]25.8 kg/m2Veronique Santiagoz SUPPLY PERSON Work Phone: [facility] HospitalSwlnlnayun12-19-6182 16:20-0500Body temperature 98.8 [degF]Veronique Santiagoz SUPPLY PERSON Work Phone: [facility] HospitalEbhxvxhlfj89-85-9420 16:20-0500Body grhfui62.96 kgLisa Santiagoz SUPPLY PERSON Work Phone: [facility] HospitalIaluhtalbp66-68-4987 16:20-0500Diastolic blood rkfpseeb43 mm[Hg]Veronique Santiagoz SUPPLY PERSON Work Phone: [facility] HospitalCfkoburwvg61-23-0191 16:20-0500Heart rate58 /min Veronique Pamelaz SUPPLY PERSON Work Phone: [facility] HospitalMzoavjkfnx88-78-4959 16:20-0500Respiratory rate18 /minLisa Pamelaz SUPPLY PERSON Work Phone: [facility] HospitalIowjgmnohj30-68-7655 16:20-8408OwN6% (BldA) [Mass fraction]94 %Veronique Pamelaz SUPPLY PERSON Work Phone: [facility] HospitalUgdrnjrwyw26-48-7421 16:20-0500Systolic blood gibqcgke774 mm[Hg]Veronique Pamelaz SUPPLY PERSON Work Phone: [facility] HospitalFeiriaprrj73-30-5910 10:13-0500Body cehgwv838.2 cmAntbenny Noble DPM Work Phone: [facility] HospitalTeyoxbmzfb85-44-5542 10:13-0500Body mass index (BMI) [Ratio]26.62 kg/d3AeqqyjyBao Shahher DPM Work Phone: [facility] HospitalWvvzarrtnt07-08-4689 10:13-0500Body tzmcys98.95 kgAnthjyothi Noble DPM Work Phone: [place] [address]Xlkfoodzmv89-34-8089 17:03-0500Diastolic blood hnuqjfio36 mm[Hg]Veronique Vicentehholz SUPPLY PERSON Work Phone: [place] [address]Zumodlmcfz23-23-7008 17:03-0500Systolic blood eoxmudkp684 mm[Hg]Veronique Aichholz SUPPLY PERSON Work Phone: [place] [address]Ngxkhdulnh35-54-8723 16:55-0500Body pgfeav264.2 cmLisa Vicentehholz SUPPLY PERSON Work Phone: [phone] [place], [place] [address]Qdnocavcke63-71-9896 16:55-0500Body mass index (BMI) [Ratio]26.62 kg/m2Lisa Aichholz SUPPLY PERSON Work Phone: 1(483)841-[address] [place], [place] [address]Uxropfutao92-76-6937 16:55-0500Body temperature 98.49 [degF]Veronique Vicentehholz SUPPLY PERSON Work Phone: [place] [address]Bsgsuyjhjg72-90-0035 16:55-0500Body zesajb48.95 kgLisa Aichholz SUPPLY PERSON Work Phone: 1(337)628-[address] [place], [place] [address]Gsifegdttk87-10-1945 16:55-0500Heart rate64 /min Veronique Aichholz SUPPLY PERSON Work Phone: [place] [address]Kyhtujmxdi34-88-3678 16:55-0500Respiratory rate20 /minLisa Aichholz SUPPLY PERSON Work Phone: [place] [address]Znyabzjlfq47-78-4351 16:55-3488CpE9% (BldA) [Mass fraction]94 %Veronique Vicentehholz SUPPLY PERSON Work Phone: [facility] HospitalQwjeiogfdu73-62-6457 09:36-0400Body zalkmq454.2 Lindaisa Pamelaz SUPPLY PERSON Work Phone: [facility] HospitalQecnhjqimg42-70-7418 09:36-0400Body mass index (BMI) [Ratio]25.54 kg/m2Lisa Vidhiholz SUPPLY PERSON Work Phone: [facility] HospitalBezlsgoupz50-02-6752 09:36-0400Body temperature 98.8 [degF]Veronique Pamelaz SUPPLY PERSON Work Phone: [facility] HospitalAkyqwwmzee77-01-2859 09:36-0400Body yorpwk57.32 kgLisa Vidhiholz SUPPLY PERSON Work Phone: [facility] HospitalXcrgeoesdq82-39-5314 09:36-0400Diastolic blood xeeemzod31 mm[Hg]Veronique Pamelaz SUPPLY PERSON Work Phone: [facility] HospitalHzhyogpcic05-78-5797 09:36-0400Heart rate70 /min Veronique Pamelaz SUPPLY PERSON Work Phone: [facility] HospitalFlcyqnsugu52-54-3379 09:36-0400Respiratory rate18 /minLisa Pamelaz SUPPLY PERSON Work Phone: [facility] HospitalUpfpxhcvik25-76-1289 09:36-2014NyG4% (BldA) [Mass fraction]94 %Veronique Pamelaz SUPPLY PERSON Work Phone: [facility] HospitalZccuwmqsoc63-37-1492 09:36-0400Systolic blood kfheusqy186 mm[Hg]Veronique Vidhiholz SUPPLY PERSON Work Phone: [facility] HospitalIogrxtjpxa52-97-2967 10:57-0400Body .2 Lindaisa Vidhiholz SUPPLY PERSON Work Phone: [facility] HospitalJnkdzbtxhx96-25-2160 10:57-0400Body mass index (BMI) [Ratio]25.62 kg/m2Andiesa Vidhiholz SUPPLY PERSON Work Phone: [facility] HospitalZjdojvhwkb62-54-4047 10:57-0400Body temperature 97.81 [degF]Veronique Harris SUPPLY PERSON Work Phone: [facility] HospitalBqkaxrivuk87-06-2909 10:57-0400Body ndzedq17.51 kgVeronique Harris SUPPLY PERSON Work Phone: [facility] HospitalDbwutiztkh70-54-7950 10:57-0400Diastolic blood ipurqtti35 mm[Hg]Veronique Harris SUPPLY PERSON Work Phone: [facility] HospitalKryjsbnewt15-66-2927 10:57-0400Heart rate64 /min Veronique Harris SUPPLY PERSON Work Phone: [facility] HospitalVscfybhfwq52-64-3113 10:57-0400Respiratory rate18 /minVeronique Harris SUPPLY PERSON Work Phone: [facility] HospitalLvgqeheuha39-42-1894 10:57-0628PaD9% (BldA) [Mass fraction]97 %Veronique Harris SUPPLY PERSON Work Phone: [facility] HospitalTlozbezaxz90-76-7693 10:57-0400Systolic blood bovdzsxm608 mm[Hg]Veronique Harris SUPPLY PERSON Work Phone: [facility] HospitalLepnxhhocx29-88-0125 13:45-0500Body scjobj322.94 cmLisa Randee Harris Work Phone: 1(739) 855-9757025-7276UL-WahccK[facility]son [facility] 250 DO Work Phone: 1(509) 300-513501-10-2023 13:45-0500Body mass index (BMI) [Ratio] 29.29 kg/m2Veronique Harris Work Phone: mp993-4113PB-QwbuhAllina [facility] 250 DO Work Phone: 1(505) 398-951801-10-2023 13:45-0500Body surface area Derived from formula1.7 m2Veronique Harris Work Phone: mp588-6333KJ-XinelAllina Health [facility]ibault [facility] 250 DO Work Phone: 1(236) 995-164201-10-2023 13:45-0500Body qrrqek99.31 kgLisa Randee Harris Work Phone: mp274-6912NG-Dbjly [facility] 250 DO Work Phone: 1(387) 958-279501-10-2023 13:45-0500Diastolic blood mm[Hg] Veronique Harris Work Phone: mp992-0051VX-Doraw [facility] 250 DO Work Phone: 1(770) 446-722101-10-2023 13:45-0500Heart rate72 /minLisa Randee Harris Work Phone: mp286-2404LY-Zkgqs [facility] 250 DO Work Phone: 1(441) 850-716001-10-2023 13:45-0500Systolic blood arczallz459 mm[Hg] Veronique Harris Work Phone: mp023-6801ZO-Hacyv [facility] 250 DO Work Phone: 1(161) 183-482701-20-2022 11:41-0500Body ybhlkx883.94 cmSnadeem Mills Work Phone: mp804-8158SG-Evyui [facility] 250 DO Work Phone: 1(150) 242-354701-20-2022 11:41-0500Body mass index (BMI) [Ratio] 30.04 kg/l9DpvuqoDara Mills Work Phone: mp817-9471QQ-Tekba [facility] 250 DO Work Phone: 1(917) 106-521401-20-2022 11:41-0500Body surface area Derived from formula1.71 i1QmewqoDara Mills Work Phone: mp099-0724RQ-Uwawb [facility] 250 DO Work Phone: 1(993) 773-919601-20-2022 11:41-0500Body .12 kgDara Mills Work Phone: mp690-0435MF-Fznhp [facility] 250 DO Work Phone: 1(168) 250-351801-20-2022 11:41-0500Diastolic blood lcsvapve71 mm[Hg] Dara Mills Work Phone: mp181-0590DA-Kfgew [facility] 250 DO Work Phone: 1(567) 810-627101-20-2022 11:41-0500Heart rate65 /minSnadeem Mills Work Phone: 1(163) 474-1059394-4162JH-CuvuqRed [facility] 250 DO Work Phone: 1(789) 701-515901-20-2022 11:41-0500Systolic blood mm[Hg] Dara Mills Work Phone: 1(533) 152-5829485-3315DG-XyjfuCanby Medical CenterDawes 250 DO Work Phone: 1(204) 849-119207-13-2021 11:18-0400Body tdhqqi325.4 cmBaptist Health Wolfson Children's HospitalNabi Biopharmaceuticals Phone: 1(490) 747-388007-13-2021 11:18-0400Body mass index (BMI) [Ratio] 30.66 kg/m2[facility] HospitalNabi Biopharmaceuticals Phone: 1(763) 694-132307-13-2021 11:18-0400Body qdskab44.22 kgBaptist Health Wolfson Children's HospitalYugma Work Phone: 1(809) 293-188707-13-2021 11:18-0400Diastolic blood mibpgyoi26 mm[Hg] [facility] HospitalYugma Work Phone: 1(755) 545-738707-13-2021 11:18-0400Heart rate64 /minUNC Health Nash [employer] Phone: 1(842) 218-359407-13-2021 11:18-0400Respiratory rate18 /minFormerly [facility] [employer] Work Phone: 1(393) 923-303507-13-2021 11:18-7594QsF4% (BldA) [Mass fraction]97 % [facility] HospitalNabi Biopharmaceuticals Phone: 1(232) 255-956507-13-2021 11:18-0400Systolic blood yrogzwdt548 mm[Hg] [facility] HospitalN[facility]opharm[facility] Phone: Encounters Encounter DateEncounter TypeCare ProviderFacilityStart: 08-07-2025 End: 28-42-6386Npoclbv encounter procedureVeronique LANZA[facility] Work Phone: Start: 08-07-2025 End: 59-25-7048itqjrsucdzOcjg J AichholzFacilholzer health system:[facility] Centertart: 07-11-2025 End: 62-42-2526xoihugrbcwLingje E Ross MD Work Phone: [facility] Work Phone: Start: 07-11-2025 End: 32-56-4570Iinoqzf encounter procedureVeronique Harris SUPPLY PERSON-C-[facility] Work Phone: Start: 05-21-2025 End: 55-64-7539jqkdmbpitpMAUJ AICHHOLZNot AvailableStart: 05-21-2025 End: 59-93-5576Tjqbdps encounter procedureVeronique Harris SUPPLY PERSON Work Phone: noms CW FMComment on above:LIA (acute kidney injury) (Primary Dx); Cigarette nicotine dependence with nicotine-induced disorder; Generalized abdominal pain; Hypoxia; Primary hypertension ; Nausea and vomiting, unspecified vomiting type; Gastroesophageal reflux disease without esophagitis; Type 2 diabetes mellitus with chronic kidney disease, without long-term current use of insulin, unspecified CKD stage (HCC); HypokalemiaStart: 05-21-2025 End: 29-19-6719xintnplbclDXTXBE VARGAS VNot AvailableStart: 05-21-2025 End: 18-26-2667Orztnk outpatient new Darren Garzon MD Work Phone: [facility] AssociatesComment on above:Colovaginal fistula (Primary Dx); Generalized abdominal pain; Family history of Crohn's diseaseStart: 05-18-2025 End: 91-64-9719oynevyaquuJvnzxo E Ross MD Work Phone: [facility] Work Phone: Start: 05-18-2025 End: 25-49-9922Wbmpyus encounter procedureCatherine Michael Ko [facility] Work Phone: Start: 05-16-2025 End: 47-53-7391Frvnfs Karen Harris SUPPLY PERSON Work Phone: [facility] CWM FMComment on above:Chronic obstructive pulmonary disease, unspecified COPD type (HCC) (Primary Dx); HypoxiaStart: 05-10-2025 End: 23-79-8319Niwmuagmx Result EncounterGeneric External Data ProviderNOMS External Department UnsolicitedStart: 05-10-2025 End: 41-56-2175Xauubjryt Result EncounterGeneric External Data ProviderNOMS External Department UnsolicitedStart: 05-09-2025 End: 03-86-1783Nnmyutmea Result EncounterGeneric External Data ProviderNOMS External Department UnsolicitedStart: 05-09-2025 End: 64-66-1842Xhqbigjfc Result EncounterGeneric External Data ProviderNOMS External Department UnsolicitedStart: 05-09-2025 End: 26-48-7093vpeprnqdxvTldcnlcn Talal SarminiFacility:[facility] DHStart: 05-09-2025 End: 97-82-4432Tubxuvo encounter procedureMurico Garciaal Ramirezmini [phone]-BojjxVeterans Health [facility] Start: 05-02-2025 End: 36-53-4628FxfaxsMcgx Aichholz SUPPLY PERSON Work Phone: [facility] CWM FMComment on above:Gastroesophageal reflux disease without esophagitis (Primary Dx); Nausea and vomiting, unspecified vomiting typeStart: 04-30-2025 End: 67-92-8935XixoldVxsh Aichholz SUPPLY PERSON Work Phone: n[facility] CWM FMComment on above:Gastroesophageal reflux disease without esophagitis (Primary Dx)Start: 04-11-2025 End: 57-63-3635Uhnsvadzm encounterAnthjyothi Noble DPM Work Phone: noms FH PODIATRYComment on above:No Shows (Recent History of No Shows)Start: 04-05-2025 End: 54-73-8320Hxmgce flowsheetVeronique Harris SUPPLY PERSON Work Phone: noms CWM FMStart: 04-05-2025 End: 79-65-9199Scjcsr flowsheetVeronique Harris SUPPLY PERSON Work Phone: noms CWM FMStart: 04-05-2025 End: 91-94-5463Khvmkzdnw Result EncounterVeronique Harris SUPPLY PERSON Work Phone: noms External Department UnsolicitedStart: 04-05-2025 End: 67-24-8603ScitohFzji Aichholz SUPPLY PERSON Work Phone: noms CWM FMComment on above:Primary hypertension (Primary Dx); Mixed hyperlipidemia ; Chronic obstructive pulmonary disease, unspecified COPD type (HCC); Controlled type 2 diabetes mellitus without complication, without long-term current use of insulin (HCC); Other specified hypothyroidism ; Seasonal allergic rhinitis due to pollen; Gastroesophageal reflux disease without esophagitis; Vitamin D deficiency; HypokalemiaMicroscopic hematuria (Primary Dx); Colovaginal fistula; Elevated alkaline phosphatase levelStart: 04-05-2025 End: 74-71-5949Qnasmr outpatient visit 25 Katy Harris SUPPLY PERSON Work Phone: noms CWM FMComment on above:Type 2 diabetes mellitus with chronic kidney disease, without long-term current use of insulin, unsp ecified CKD stage (HCC) (Primary Dx); Primary hypertension ; Coronary artery disease involving chickahominy indians-eastern division coronary artery of chickahominy indians-eastern division heart without angina pectoris ; Vaginal bleeding; Chronic kidney disease, stage 3a ([facility]-HCC); Controlled type 2 diabetes mellitus without complication, without long-term current use of insulin (HCC); Medical non-compliance; Breast cancer screening by mammogram; Cigarette nicotine dependence with nicotine-induced disorder; Other specified hypothyroidismStart: 04-04-2025 End: 93-98-3629CvmjtvHsxw Aichholz SUPPLY PERSON Work Phone: noms CWM FMComment on above:Primary hypertensionStart: 01-11-2025 End: 57-89-2732Vvkxksyld encounterRhiannon Abarca DO Work Phone: [facility]/GynecologyStart: 01-09-2025 End: 42-96-5168YelnjiMqly Steven SUPPLY PERSON Work Phone: noms CWM FMComment on above:Chronic obstructive pulmonary disease, unspecified COPD type (CMS/HCC) (Primary Dx)Start: 01-08-2025 End: 56-49-2414Gixniq outpatient visit 15 minutesBao Noble DPM Work Phone: noms PODIATRYComment on above:Onychodystrophy (Primary Dx); Onychomycosis; Diabetic polyneuropathy associated with type 2 diabetes mellitus (CMS/HCC)Start: 01-08-2025 End: 69-52-9546oqdwssobwtFBGZJJX S RUSHERNot AvailableStart: 01-04-2025 End: 90-56-9993ukvnfvxuddQBDO AICHHOLZNot AvailableStart: 01-04-2025 End: 86-60-4698Bhhfhv outpatient visit 25 minutesLisa Steven SUPPLY PERSON Work Phone: noms CWM FMComment on above:Colovaginal fistula (Primary Dx); Cigarette nicotine dependence with nicotine-induced disorder; Type 2 diabetes mellitus with diabetic polyneuropathy, without long-term current use of insulin ([facility]); Primary hypertension ([facility]/HCC); Chronic kidney disease, stage 3a (HCC) ([facility]/HCC); Type 2 diabetes mellitus with chronic kidney disease, without long-term current use of insulin, unspecified CKD stage ([facility]/HCC); Gastroesophageal reflux disease without esophagitis; Mixed hyperlipidemia ([facility]/HCC); Chronic obstructive pulmonary disease, unspecified COPD type ([facility]/HCC); Controlled type 2 diabetes mellitus without complication, without long-term current use of insulin; Other specified hypothyroidism; Seasonal allergic rhinitis due to pollenStart: 01-04-2025 End: 32-06-9238Nlcoiy flowsheetLisa Steven SUPPLY PERSON Work Phone: noms CWM FMStart: 01-04-2025 End: 31-81-0587Zhyivo flowsheetLisa Steven SUPPLY PERSON Work Phone: noms CWM FMStart: 01-01-2025 End: 96-33-6410HcpkpsLopj Aichholz SUPPLY PERSON Work Phone: noMS CWM FMComment on above:Primary hypertension (CMS/HCC)Start: 12-14-2024 End: 89-64-6612LkyoxbXije Aichholz SUPPLY PERSON Work Phone: NOMS CWM FMComment on above:Controlled type 2 diabetes mellitus without complication, without long-term current use of insulin ( CMS/HCC) (Primary Dx)Start: 11-30-2024 End: 58-50-0181xibuavoqarDJZF AICHHOLZNot AvailableStart: 11-30-2024 End: 61-09-0838Jjhixj flowsheetLisa Aichholz SUPPLY PERSON Work Phone: NOMS CWM FMStart: 11-30-2024 End: 30-86-0565Utiscf flowsheetLisa Aichholz SUPPLY PERSON Work Phone: NOSZ CWM FMStart: 11-10-2024 End: 61-87-3746NyzlbkVkrd Aichholz SUPPLY PERSON Work Phone: NOMS CWM FMComment on above:Controlled type 2 diabetes mellitus without complication, without long-term current use of insulin ( [facility]/HCC); Other specified hypothyroidism ([facility]/HCC); Gastroesophageal reflux disease without esophagitis; Chronic obstructive pulmonary disease, unspecified COPD type ([facility]/HCC)Start: 11-07-2024 End: 84-42-1609QrymesJgsi Aichholz SUPPLY PERSON Work Phone: NOMS CWM FMComment on above:Generalized abdominal pain (Primary Dx)Start: 11-06-2024 End: 19-49-5561Hfspcu outpatient visit 15 minutesLisa Vicentehholz SUPPLY PERSON Work Phone: NOMS CWM FMComment on above:UTI symptoms (Primary Dx); 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Start: 11-06-2024 End: 07-50-2346hjtxrtuhuyJSCJ AICHHOLZNot AvailableStart: 11-06-2024 End: 22-85-3593Nkjjvwzn Result EncounterLisa Aichholz SUPPLY PERSON Work Phone: noms External Department UnsolicitedStart: 11-06-2024 End: 90-45-4313Akivmjeu Result EncounterAndie Steven SUPPLY PERSON Work Phone: noms External Department UnsolicitedStart: 10-18-2024 End: 27-85-0321XluagjKmbt Aichzana SUPPLY PERSON Work Phone: noms CWM FMComment on above:Dental infection (Primary Dx)Start: 10-09-2024 End: 38-25-8121TarcffRbis Aichholz SUPPLY PERSON Work Phone: noms CWM FMComment on above:Gastroesophageal reflux disease without esophagitisStart: 10-05-2024 End: 97-83-8538YjrwgcUwcr Aicdontezana SUPPLY PERSON Work Phone: noms CWM FMComment on above:Gastroesophageal reflux disease without esophagitisStart: 09-18-2024 End: 86-28-8787Fursqr flowsheetAnthony S Rusher DPM Work Phone: noms PODIATRYStart: 09-18-2024 End: 16-38-4272Bpeqbb flowsheetAnthony S Rusher DPM Work Phone: noms PODIATRYStart: 09-18-2024 End: 85-80-2000Zbglfr outpatient new 30 minutesAnthony S Rusher DPM Work Phone: noms PODIATRYComment on above:Onychodystrophy (Primary Dx); Ingrown toenail; Onychomycosis; Diabetic polyneuropathy associated with type 2 diabetes mellitus (CMS/HCC); Left foot painStart: 09-18-2024 End: 00-14-2260vwjjosqgqxMVJRFHN S RUSHERNot AvailableStart: 09-07-2024 End: 19-77-7830UbdmhhOlro Aichholz SUPPLY PERSON Work Phone: noms CWM FMComment on above:Gastroesophageal reflux disease without esophagitisStart: 08-16-2024 End: 03-45-1997Byjsxk outpatient visit 25 minutesLisa Mosherholz SUPPLY PERSON Work Phone: NOMS CWM FMComment on above:Acute bilateral low back pain without sciatica (Primary Dx); Cigarette nicotine dependence with nicotine-induced disorder; Primary hypertension (CMS/HCC); Abdominal aortic pulsation; Screening for lung cancer; 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Start: 08-16-2024 End: 14-27-9203pbnqdaquujIPDK VICENTEHHOLCARLTONot AvailableStart: 08-16-2024 End: 06-57-7345Hzaisa flowsheetLisa Aichholz SUPPLY PERSON Work Phone: NODA CWM FMStart: 08-16-2024 End: 06-69-1227Udlckv flowsheetLisa Aichholz SUPPLY PERSON Work Phone: NOMS CWM FMStart: 07-31-2024 End: 53-52-0689Mhsnyk OnlyLisa Vicentehholz SUPPLY PERSON Work Phone: NOMS CWM FMComment on above:Abdominal aortic pulsation (Primary Dx)Start: 07-27-2024 End: 66-91-2660Tlowom flowsheetLisa Aichholz SUPPLY PERSON Work Phone: NOMS CWM FMStart: 07-27-2024 End: 87-38-8664Wupqyc flowsheetLisa Aichholz SUPPLY PERSON Work Phone: NOVM CWM FMStart: 07-27-2024 End: 71-23-5410Lbbsbt outpatient visit 25 minutesLisa Aichholz SUPPLY PERSON Work Phone: NOMS CWM FMComment on above:Controlled type 2 diabetes mellitus without complication, without long-term current use of insulin ( CMS/HCC) (Primary Dx); Type 2 diabetes mellitus with diabetic chronic kidney disease (CMS/HCC); Chronic kidney disease, stage 2 (mild); Hkfsp-0-cdazugmulun deficiency (CMS/HCC); Mixed hyperlipidemia (CMS/HCC); Chronic obstructive pulmonary disease, unspecified COPD type (CMS/HCC); Gastroesophageal reflux disease without esophagitis; Other specified hypothyroidism (CMS/HCC); Primary hypertension (CMS/HCC); Seasonal allergic rhinitis due to pollen; 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; Coronary artery disease involving chickahominy indians-eastern division coronary artery of chickahominy indians-eastern division heart without angina pectoris (CMS/HCC); Abdominal aortic pulsation; Acute bilateral low back pain without sciaticaStart: 07-27-2024 End: 73-30-7636ysllsislpuQLDQ AICHHOLZNot AvailableStart: 07-20-2024 End: 19-44-4322Pvwyhwdqy department patient visitVERONIQUE HARRISWilson Healthtart: 07-05-2024 End: 31-78-5693BitkgqKafv Aichholz SUPPLY PERSON Work Phone: NOMS CWM FMComment on above:Bacterial vaginosisStart: 06-22-2024 End: 35-75-1433RrekokHftw Aichholz SUPPLY PERSON Work Phone: NOMS CWM FMComment on above:Bacterial vaginosis (Primary Dx)Start: 06-21-2024 End: 29-84-3890Beenja flowsbartolomeVeronique Harris SUPPLY PERSON Work Phone: NOMS CWM FMStart: 06-21-2024 End: 78-52-0092Rutcmx flowsheetVeronique Harris SUPPLY PERSON Work Phone: NOMS CWM FMStart: 06-21-2024 End: 13-14-7739Vivoqm outpatient visit 25 minutesLisa Harris SUPPLY PERSON Work Phone: noMS CWM FMComment on above:Controlled type 2 diabetes mellitus without complication, without long-term current use of insulin ( [facility]) (Primary Dx); UTI symptoms; Acute cystitis without hematuria; Vaginal bleeding; Vaginal discharge; Mixed hyperlipidemia (CMS/HCC); Chronic obstructive pulmonary disease, unspecified COPD type (CMS/HCC); Gastroesophageal reflux disease without esophagitis; Other specified hypothyroidism (CMS/HCC); Primary hypertension (CMS/HCC); Seasonal allergic rhinitis due to pollenStart: 06-21-2024 End: 19-16-0364wlgivdfcopMIZL VICENTETawanna AvailableStart: 69-17-1786smgmkaxeui UNKNOWN PROVIDERFacility:METROHealthStart: 09-13-2023 End: 92-51-2496Puqblenix Result EncounterGeneric External Data ProviderNOMS External Department UnsolicitedStart: 09-13-2023 End: 36-42-3277Wzyjlanhv Result EncounterGeneric External Data ProviderNOMS External Department UnsolicitedStart: 01-19-2023 End: 12-61-2055chadxqknjjLZB VERONIQUE HARRISFacility:L6Tjldr: 31-04-4465Kefajv outpatient visit 25 minutesLisa Randee Aichholz Work Phone: [phone]-Fpfqt [facility] DO Work Phone: Start: 19-05-5410tyyrzvfnblRwDr. Rafael Washington Facility:[id number]: 82-86-9240As RenewalDara Mills Work Phone: [phone]-Culnd [facility] DO Work Phone: Start: 09-01-2022 End: 72-51-5133nmwasmvcaqRGCGGW [facility] .Facility:Y4Eekoi: 59-62-3364zikwtigtscXgDr. Rafael WashingtonFacility:[id number]: 06-17-2022 End: 26-91-4074sgsnojdeusJYT LISA AICHHOLZFacility:I2Rhmff: 03-12-2022 End: 50-00-1168ktozafobioSUQ VERONIQUE HARRISFacility:V9Gowpr: 47-77-6710zfywjckara Dr. Rafael WashingtonFacility:[id number]: 29-87-8068Kcmdsc outpatient visit 15 Juan Carlos Mills Work Phone: [phone]-Hyajd [facility] DO Work Phone: Start: 08-18-2021 End: 50-75-9712wubezujyliZZDSUB ROSSMercy Tiffin HospitalStart: 07-31-2021 End: 83-43-2011graorchftjPDFTWG ROSSMercy Tiffin HospitalStart: 07-31-2021 End: 32-06-2170Esqvbmngqm [facility] Rm 1 MTHZ Cardiac RehabComment on above:ArrivedStart: 07-30-2021 End: 92-26-9606dtsepjzywgTPYTPP PARISHTr[facility] Centerdalton Posadasfin HospitalStart: 07-30-2021 End: 48-47-2398Dsiryklams hospital [facility] by [facility] Card[facility] Rm 1 MTHZ Cardiac RehabComment on above:ArrivedStart: 07-21-2021 End: 72-43-3238vbcepskbttZAEZIB PARISHTr[facility] Centerdalton Wylie HospitalStart: 07-21-2021 End: 40-60-6577Xwcqvqryvy hospital [facility] Card[facility] Rm 1 MTHZ Cardiac RehabComment on above:ArrivedStart: 07-17-2021 End: 11-97-6660muzesbtilyUTMEPT [facility] HospitalStart: 07-17-2021 End: 21-47-7549Ukxbvweztx hospital [facility] Card[facility] Rm 1 MTHZ Cardiac RehabComment on above:ArrivedStart: 07-10-2021 End: 57-57-8932oscufjazlpPJMCAY PARISHTr[facility] Centerdalton Wylie HospitalStart: 07-10-2021 End: 52-40-8513Jigfkjbwmj hospital [facility] Cardiop[facility]hab Rm 1 MTHZ Cardiac RehabComment on above:ArrivedStart: 07-09-2021 End: 12-45-3348syfodgztbhBGXDMO PARISHTr[facility] Centerdal[facility] Wylie HospitalStart: 07-09-2021 End: 92-02-9734Wnqcxtyual hospital [facility] Cardiop[facility] Rm 1 MTHZ Cardiac RehabComment on above:ArrivedStart: 07-07-2021 End: 53-59-3305Zbdiaymrmf hospital [facility] Card[facility] Rm 1 MTHZ Cardiac RehabComment on above:ArrivedStart: 07-02-2021 End: 12-43-4213pntpglzqwsUMRSDD PARISHTr[facility] Centerdalton Wylie HospitalStart: 07-02-2021 End: 61-38-5725Apckhduapf hospital [facility] Cardiopul[facility]hab Rm 2 MTHZ Cardiac RehabComment on above:ArrivedStart: 05-29-2021 End: 78-79-1927uucqefbhkzQVPBPP ROSSMercy Tiffin HospitalStart: 05-28-2021 End: 91-59-7482exyxxacwwtFEIUIY ROSSMercy [facility]iff[facility] HospitalStart: 05-28-2021 End: 02-44-4939Akgfpksvoh hospital [facility] Cardiopul[facility] Rehab Rm 2 MTHZ Cardiac RehabComment on above:ArrivedStart: 05-26-2021 End: 31-34-8697chnxxvynekXWHPBB ROSSMercy Tiffin HospitalStart: 05-26-2021 End: 57-08-9083Minlmssngh [facility] Cardiop[facility]hab Rm 2 MTHZ Cardiac RehabComment on above:ArrivedStart: 05-22-2021 End: 10-50-8920piopmpwzvyEAFJQU ROSSMercy Tiffin HospitalStart: 05-22-2021 End: 82-62-0470Bjamgabkpd hospital [facility] Card[facility] Rm 2 MTHZ Cardiac RehabComment on above:ArrivedStart: 05-19-2021 End: 76-95-6540fdnpeayfypFJBTPG [facility]SMercy [facility]iff[facility] HospitalStart: 05-19-2021 End: 88-50-6083Loygzoizpy [facility] Card[facility] Rm 2 MTHZ Cardiac RehabComment on above:ArrivedStart: 05-15-2021 End: 90-87-8217xuukbsaqszEORFWU ROSSMercy [facility]iff[facility] HospitalStart: 05-15-2021 End: 99-19-1850Ltylizaamy hospital [facility] Cardiopul[facility] Rehab Rm 2 MTHZ Cardiac RehabComment on above:ArrivedStart: 05-12-2021 End: 87-62-7926mmresbeydyUAIKLQ ROSSMercy [facility]iff[facility] HospitalStart: 05-08-2021 End: 00-95-7227swwoorxqvfIKWNHY ROSSM[facility]cy [facility]iff[facility] HospitalStart: 05-08-2021 End: 76-68-1629Dqvcpcqpxi [facility] Cardiop[facility] Rehab Rm 2 MTHZ Cardiac RehabComment on above:ArrivedStart: 05-07-2021 End: 77-83-4635stpfbaxjngTRVLSY ROSSMercy [facility]iff[facility] HospitalStart: 05-05-2021 End: 38-04-7200dgijqgtlnlDFGNYY ROSSMercy [facility]iff[facility] HospitalStart: 05-01-2021 End: 25-45-0123ecxnaxjlebZUGXGZ [facility]SM[facility]iff[facility] HospitalStart: 04-28-2021 End: 09-69-7525picjjtykngOTITVR [facility]SMer[facility] HospitalStart: 04-28-2021 End: 74-57-6333Cxxxvnogqf hospital [facility] Cardiopul[facility] Rehab Rm 2 MTHZ Cardiac RehabComment on above:ArrivedStart: 04-23-2021 End: 14-40-2634lkadjuktwkPYTYSQ [facility]SMercy [facility]iff[facility] HospitalStart: 04-23-2021 End: 26-21-9143Vvxgdmkpxe hospital [facility] Cardiopul[facility] Rehab Rm 2 MTHZ Cardiac RehabComment on above:ArrivedStart: 04-21-2021 End: 41-00-4847kuucixtrzdYFWJXX [facility]SMercy [facility]iff[facility] HospitalStart: 04-21-2021 End: 87-65-5369Luvsrodazv hospital [facility] Cardiopulm Rehab Rm 2 MTHZ Cardiac RehabComment on above:ArrivedStart: 04-14-2021 End: 84-21-0189llcfxietodDZQAQP [facility] HospitalStart: 04-14-2021 End: 96-36-4558Bfjwsqhnog hospital [facility] Cardiopulm Rehab Rm 2 MTHZ Cardiac RehabComment on above:ArrivedStart: 04-10-2021 End: 33-33-7136fokoyyjpfbLBJTNO [facility] HospitalStart: 04-08-2021 End: 19-21-8596kkdwskkidfFSJUAU ROSSMercy [facility]iff[facility] HospitalStart: 04-08-2021 End: 50-09-2116Ijqrbyukue hospital [facility]to [facility] Cardiac RehabComment on above:ArrivedStart: 64-15-5278Rxlmock encounterTHOMAS DELGADILLOFacility:[facility]ITALtart: 03-17-2018 End: 45-89-0589Fgweuns encounterJOZOIE DELGADILLOFacility:[facility]ITALtart: 84-08-0132Eyqdjox encounterJOZOIE DELGADILLOFacility:[facility]ITALtart: 07-26-2017 End: 75-52-2407StwvuyjobuLQU C [facility] Hospitalart: 07-26-2017 End: 52-49-7034WjmrxkrvqlLXDAPPZAFEdwin KOVACSThe Jewish HospitalStart: 07-26-2017 End: 39-46-8831DuczggkahnNDF C [facility]: 07-26-2017 End: 62-42-8579SgljahiqjpJLL C [facility]: 06-07-2017 End: 09-32-6709ZzetwendlfRXAKettering Health Washington Township Procedures DateProcedureProcedure DetailPerforming ClinicianStart: 05-10-2025E COLI SHIGA TOXIN EIAGeneric External Data ProviderStart: 20-96-7819XDGOL CULTURE 2Generic External Data ProviderStart: 75-72-0022MHOPN CULTURE 1Generic External Data ProviderStart: 22-09-0887CFN CBC WITH AUTO DIFFLisa Vicentehholz SUPPLY PERSON Work Phone: Start: 14-14-5359Umcdzopylf glycosylated f6eCcvk Aichholz SUPPLY PERSON Work Phone: Start: 02-98-6338Zcozl dip stick/tablet rgnt non-auto w/o micrscpLisa Vicentehamauryz SUPPLY PERSON Work Phone: Start: 44-50-1696VKZCBCL TRACT INFECTION (HTRX)Veronique Steven SUPPLY PERSON Work Phone: Start: 93-42-1905Cczuaihbdg glycosylated q5zTxwr Aichholz SUPPLY PERSON Work Phone: Start: 75-72-3438CopgchbybeoLefq Aichholz SUPPLY PERSON Work Phone: Start: 08-65-3484BbrawataqxcNzlp Aichholz SUPPLY PERSON Work Phone: Start: 01-10-6001YP LUNG SCREENING LOW DOSEGeneric External Data ProviderAppendectomyDara Mills Work Phone: Breast cancer screening declinedBreast cancer screening declinedDara Mills MD Work Phone: Breast cancer screening declinedBreast cancer screening declinedVeronique Joshua Aichholz SUPPLY PERSON-CCardiac catheterizationDara Mills Work Phone: CholecystectomyDara Mills Work Phone: ColonoscopyMuhammad Loly EsophagogastroduodenoscopyMuhammad Sarmini Gallbladder structure (body structure)Catalan Sarmini History of percutaneous transluminal coronary angioplastyHistory of PTCPollo Mills Work Phone: HysterectomySanorma E Parish Work Phone: HysterectomyMuhamaugustd Loly Kidney operationSnadeem Mills Work Phone: Operative procedure on footSanorma Mills Work Phone: Operative procedure on kneeSnadeem E Parish Work Phone: Total colonoscopyDara Mills Work Phone: Plan of Treatment DateCare ActivityDetailAuthorStart: 00-09-1689Imhmtfgzd for malignant neoplasm of colonNOMS HealthcareStart: 44-25-7803Xbikr screening for proteinDiabetes: Urine Protein ScreeningNONH HealthcareStart: 28-71-2610Mtumajgczl A1c measurementDiabetes: Hemoglobin I9XBNKT HealthcareStart: 00-38-1600YB Breast - bilateral ScreeningKettering Health – Soin Medical Centertart: 58-20-4772Uoceasqqi mammography of bilateral breastsMM screening mammo BI w/CADKettering Health – Soin Medical Centertart: 11-36-7183Fchrh BMI ScreeningAdult BMI ScreeningSt. Elizabeth Hospital SystemStart: 33-96-5603Rurnntz ScreeningTobacco ScreeningSt. Elizabeth Hospital SystemStart: 07-11-2025 End: 35-73-0934Petqmot encounter gfouzkqgf40/15/2025 9:40 AM EDT Office Visit [facility] [address] [place] [address] Veronique Harris, SUPPLY PERSON [address] [place] [address] [facility] FMStart: 06-26-2025 End: 62-81-8762Sdmpkdi encounter /30/2025 1:20 PM EDT Office Visit [facility] [address] [place] [address] Veronique Harris, ANNA [address] [place] [phone] [facility] FMStart: 06-22-2025 End: 82-98-2525Ebtclzh encounter uctzgmjjg49/26/2025 10:15 AM EDT Office Visit [facility] [address] [phone] Pantera Garzon MD [address] [facility] [address] [place] [address] [facility] AssociatesStart: 06-02-2025 Hemoglobin A1c measurementDiabetes: Hemoglobin O9HKEQE HealthcareStart: 98-95-3957YBPBY-19 Vaccine ( season)COVID-19 Vaccine ( season)[facility] HealthcareStart: 70-61-0180Pghmgzkaj vaccinationInfluenza Vaccine [facility] SystemStart: 05-21-2025 End: 70-22-3870Lizmjsm encounter pkzltnqui97/25/2025 2:20 PM EDT Office Visit [facility] [address] [place] [address] Veronique Harris, SUPPLY PERSON [address] [place] [address] [facility] FMStart: 05-21-2025 End: 32-04-1529Rlkhr metabolic 1997 panel - Serum or PlasmaBasic metabolic panel Lab Routine Primary hypertension Type 2 diabetes mellitus with chronic kidney disease, without long-term current use of insulin, unspecified CKD stage (HCC) Expected: 05/21/2025(Approximate), Expires: 05/21/2026NONH Healthcare Work Phone: Comment on above:Expected: 05/21/2025 (Approximate), Expires: 05/21/2026Start: 05-16-2025 End: 28-25-1163Vfgecki encounter yiiifzcnp38/20/2025 9:00 AM EDT Consult [facility] [address] [phone] Pantera Garzon MD [address] [facility] [address] [place] [address] [facility] AssociatesStart: 04-11-2025 End: 77-74-1053Tlrhjhk encounter vaavfpvit15/16/2025 10:15 AM EDT Office Visit [facility] [address] [place] [phone] Bao Noble, DPEitan [address] [place] [address] [facility]RYStart: 04-05-2025 End: 95-27-6411Tmhmg metabolic 1997 panel - Serum or PlasmaBasic metabolic panel Lab Routine Hypokalemia Expected: 04/05/2025 (Approximate), Expires: 04/05/2026 [facility] Work Phone: Comment on above:Expected: 04/05/2025 (Approximate), Expires: 04/05/2026Start: 04-05-2025 End: 98-99-5950BZ Abdomen and Pelvis W contrast IVCT abdomen pelvis w IV contrast Imaging Routine Microscopic hematuria Colovaginal fistula Elevated a lkaline phosphatase level Expected: 04/05/2025 (Approximate), Expires: 04/05/2026NONH Healthcare Work Phone: Comment on above:Expected: 04/05/2025 (Approximate), Expires: 04/05/2026Start: 04-05-2025 End: 42-39-9072Wkjvutv encounter uouquqyag02/10/2025 9:40 AM EDT Office Visit [facility] [address] [place] [phone] Veronique Harris NP [address] [place] [phone] [facility] FMStart: 02-14-2025 End: 54-78-4103Tagfqjo encounter dsndmevac59/21/2025 2:30 PM EDT Office Visit [facility] [address] [place] [phone] Rhiannon Abarca, [address] [place], [place] [phone] [facility]/GynecologyStart: 22-17-3644Brkxtgukh for malignant neoplasm of breast MammogramNOMoberly Regional Medical CenterStart: 22-88-3324Ofauvspiko A1c measurementDiabetes: Hemoglobin Z0FKXSJ HealthcareStart: 01-08-2025 End: 14-44-2802Dblpoqw encounter erqxsmpud21/14/2025 1:30 PM EDT Procedure Visit [facility] [address] [place] [address] Bao Noble, DPM [address] [place], [place] [phone] [facility] PODIATRYStart: 01-04-2025 End: 28-59-6833Hrwpzxa encounter xzuiqense56/10/2025 3:00 PM EDT Office [facility] [address] [place] [address] Veronique Harris, SUPPLY PERSON [address] [place] [phone] [facility] FMStart: 01-01-2025 End: 74-72-0975Gqtqhtb encounter fkcukfsrc08/07/2025 9:00 AM EDT Office Visit [facility] [address] [place] [address] Veronique Harris, ANNA [address], [place] [id number] [facility] FMStart: 12-27-2024 End: 91-07-7975Umgfjte encounter qwwrdbeik91/02/2025 9:15 AM EDT Procedure Visit [facility] [address] [place] [address] Bao Noble, DP [address] [facility] [place] [address] [facility]RYStart: 11-30-2024 End: 98-74-5435Oylrodc encounter doyphnaow73/06/2025 2:40 PM EST Office Visit [facility] [address] [place] [address] Veronique Harris, ANNA [address] [place] [address] [facility] FMStart: 23-14-1919Csclr screening for protein Diabetes: Urine Protein ScreeningGolden Valley Memorial HospitalStart: 11-15-2024 End: 06-09-8061Kcawbih encounter jzbhnvnka08/19/2025 6:00 PM EST Office Visit [facility] [address] [place] [address] Veronique Harris, SUPPLY PERSON [address] [place] [phone] [facility] FM[facility]: 11-06-2024 End: 26-21-8173PUAVGAG TRACT INFECTION (HTRX)URINARY TRACT INFECTION (HTRX) Lab Routine UTI symptoms Expected: 11/06/2024 (Approximate), Expires: 11/06/2025[facility] Work Phone: Comment on above:Expected: 11/06/2024 (Approximate), Expires: 11/06/2025Start: 09-18-2024 End: 94-50-3718Pjdbmmn encounter boqteedzo60/23/2024 10:15 AM EST Office Visit [facility] [address] [place] [phone] Bao Noble, DP [address] [place], [place] [phone] ArrivedPEACEHEALTH PODIATRYComment on above:ArrivedStart: 08-16-2024 End: 38-10-7497Ftibvyf encounter esmzyebzr60/20/2024 5:00 PM EST Office [facility] [address] [place] [address] Veronique Harris, SUPPLY PERSON [address] [place] [address] Cigarette nicotine dependence with nicotine-induced disorder (Primary Dx); Primary hypertension (CMS/HCC); Abdominal aortic pulsation; Acute bilateral low back pain without sciaticaNOMS ST[facility] FMComment on above:Cigarette nicotine dependence with nicotine-induced disorder (Primary Dx); Primary hypertension (CMS/HCC); Abdominal aortic pulsation; Acute bilateral low back pain without sciaticaStart: 08-15-2024 End: 81-06-8063Zqvftdw encounter zrivnipmo03/19/2024 9:40 AM EST Office Visit [facility] [address] [place] [address] Veronique Harris, ANNA [address] [place] [address] [facility] FMStart: 07-31-2024 End: 52-70-3632MK Abdominal Aorta for screeningVascular US abdominal aorta anuerysm AAA screening Imaging Routine Abdominal aortic pulsation Expected: 07/31/2024 (Approximate), Expires: 07/31/2025[employer] Work Phone: Comment on above:Expected: 07/31/2024 (Approximate), Expires: 07/31/2025Start: 07-27-2024 End: 12-90-9146QB.doppler Pelvis vessels limitedVascular US abdomen/pelvis duplex limited Imaging Routine Abdominal aortic pulsation Expected: 07/27/2024, Expires: 07/27/2025[facility] dondeEsta™ Work Phone: Comment on above:Expected: 07/27/2024, Expires: 07/27/2025Start: 07-27-2024 End: 05-82-8626Wxdunpi encounter vnbtusmuc86/31/2024 9:40 AM EDT Office Visit [facility] [address] [place] [phone] Veronique Harris NP [address] [place] [address] Controlled type 2 diabetes mellitus without complication, without long-term current use of insulin(CMS/HCC) (Primary Dx); Type 2 diabetes mellitus with diabetic chronic kidney disease (CMS/HCC); Chronic kidney disease, stage 2 (mild); Qvlfb-0-vmzsvyrwoax deficiency (CMS/HCC); Mixed hyperlipidemia (CMS/HCC); Chronic obstructive pulmonary disease, unspecified COPD type (CMS/HCC); Gastroesophagealreflux disease without esophagitis; Other specified hypothyroidism (CMS/HCC); Primary hypertension (CMS/HCC); Seasonal allergic rhinitis due to pollen; 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NOMS CWM FMComment on above:Controlled type 2 diabetes mellitus without complication, without long-term current use of insulin ([facility]) (Primary Dx); Type 2 diabetes mellitus with diabetic chronic kidney disease ([facility]); Chronic kidney disease, stage 2 (mild); Vnaoj-7-juxevvsfcoa deficiency ([facility]); Mixed hyperlipidemia ([facility]); Chronic obstructive pulmonary disease, unspecified COPD type ([facility]); Gastroesophageal reflux disease without esophagitis; Other specified hypothyroidism ([facility]); Primary hypertension ([facility]); Seasonal allergic rhinitis due to pollen; 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Start: 07-17-2024 End: 79-77-6946Bmayfrc encounter cxbpbauyz86/21/2024 9:40 AM EDT Office [facility] [address] [place] [address] Veronique Harris NP [address] [place] [address] [facility] FMStart: 06-21-2024 End: 53-77-1255Wswqenhs identified in Urine by CultureUrine culture (clean catch) Microbiology Routine UTI symptoms Expected: 06/21/2024 (Approximate), Ex young: 06/21/2025[facility] HealthcareComment on above:Expected: 06/21/2024 (Approximate), Expires: 06/21/2025Start: 06-21-2024 End: 26-75-8839Uebqpdnefd complete panel - UrineUrinalysis with reflex microscopic (clean catch) Lab Routine UTI symptoms Expected: 06/21/2024 (Appr oximate), Expires: 06/21/2025[facility] Healthcare Work Phone: Comment on above:Expected: 06/21/2024 (Approximate), Expires: 06/21/2025Start: 06-21-2024 End: 35-52-9307AWLISGWZO (HTRX)VAGINITIS (HTRX) Lab Routine Vaginal bleeding Vaginal discharge Expected: 06/21/2024 (Approximate),Expires: 06/21/2025[facility] HealthcareComment on above:Expected: 06/21/2024 (Approximate), Expires: 06/21/2025Start: 06-21-2024 End: 27-51-3072Emssbfb encounter udbjzonnn54/25/2024 11:00 AM EDT Office Visit [facility] [address] [place] [address] Veronique Harris, ANNA [address] [place] [address] ArrivedLOMA LIN[facility] FMComment on above:ArrivedStart: 05-24-2024 Hemoglobin A1c measurementDiabetes: Hemoglobin Q2EHWET HealthcareStart: 48-34-1082Pbwpaozmr for malignant neoplasm of colonHIGHLAND RIDGE HOSPITAL HealthcareStart: 32-83-5400JUK, Provider: Rafael Washington, Status: Julio, Time: 10:30 AMFUV, Provider: Rafael Washington, Status: Pen, Time: 10:30 [facility] [address] Work Phone: Start: 32-38-5384ERB, Provider: Rafael Washington, Status: Pen, Time: 1:20 PMFUV, Provider: Rafael Washington, Status: Julio, Time: 1:20 PM[facility] [address] DO Work Phone: Start: 28-22-1621Csgzjjgdx B Vaccines (1 of 3 - Risk 3-dose series)Hepatitis B Vaccines (1 of 3 - Risk 3-dose series)[facility] Start: 14-73-3162PAY, Provider: Rafael Washington, Status: Julio, Time: 11:20 AMFUV, Provider: Rafael Washington, Status: Julio, Time: 11:20 AM[facility] 250 DO Work Phone: Start: 08-18-2021 End: 75-94-4728Bbnwjrq encounter wdfhvjsul18/22/2021 [facility]habStart: 08-18-2021 End: 98-90-3533Rglbymx encounter wizxjxvvf69/22/2021 [facility] Card[facility] RehabStart: 08-14-2021 End: 18-07-2851Joqptdh encounter axhlgjier87/18/2021 Appointment [facility] Cardiac RehabStart: 08-14-2021 End: 12-12-5464Tvqtaky encounter gkubausmb44/18/2021 Appointment [facility] Cardiac RehabStart: 08-13-2021 End: 02-77-1940Hhhplxd encounter /17/2021 [facility]ointment [facility] Cardiac RehabStart: 08-13-2021 End: 71-66-3991Uyyroix encounter jennenkdq46/17/2021 Appointment [facility] RehabilitationM[facility] Cardiac RehabStart: 08-11-2021 End: 74-42-1449Ljiaqmg encounter ykrionucc80/15/2021 [facility]ment [facility] Card[facility] RehabStart: 08-11-2021 End: 58-76-0272Sjqttbw encounter /15/2021 Appointment [facility] Cardiac RehabStart: 08-07-2021 End: 53-10-5892Marvrne encounter mpbfxwgeh53/11/2021 [facility]ointment [facility] Card[facility] RehabStart: 08-07-2021 End: 80-89-5016Uhgzfek encounter cohuxrtby98/11/2021 Appointment [facility] Cardiac RehabStart: 08-06-2021 End: 61-59-7396Cgmlbek encounter pogxlbtnr57/10/2021 Appointment [facility] Cardiac RehabStart: 08-06-2021 End: 88-95-2244Utwzpyo encounter plgbffhee39/10/2021 Appointment [facility] Cardiac RehabStart: 08-04-2021 End: 62-51-1959Tdscxwo encounter srjjjvteg21/08/2021 Appointment [facility] Cardiac RehabStart: 08-04-2021 End: 88-66-6290Nghqtfx encounter xbjjiungc52/08/2021 [facility]ointment [facility] Cardiac RehabStart: 07-31-2021 End: 31-99-8739Vsxzlnu encounter mwggayele18/04/2021 [facility]ointment [facility] Cardiac RehabStart: 07-31-2021 End: 82-67-1777Poknzmk encounter jutwspyaw48/04/2021 [facility]ointment [facility] Card[facility] RehabStart: 07-30-2021 End: 17-31-9176Enoeeie encounter gdcpbhser42/03/2021 Appointment [facility] Cardiac RehabStart: 07-30-2021 End: 97-74-0910Kfgjhdv encounter /03/2021 Appointment [facility] Cardiac RehabStart: 07-28-2021 End: 07-64-6777Lopfxrm encounter fcfcutdwk56/01/2021 [facility]habStart: 07-28-2021 End: 03-09-9028Xvkulec encounter /01/2021 Appointment [facility] Cardiac RehabStart: 2021 End: 27-71-8937Bjlsuen encounter bhibtdxtx24/28/2021 [facility] RehabStart: 2021 End: 30-54-2185Ucttuxt encounter hiuiboscv90/28/2021 [facility]ointment [facility] Cardiac RehabStart: 07-23-2021 End: 63-26-1971Ursdlqw encounter rupdqnafk50/27/2021 [facility] RehabStart: 07-23-2021 End: 59-00-2161Lbfbwny encounter hzvpbibwi34/27/2021 [facility]ointment [facility] Card[facility] RehabStart: 07-21-2021 End: 06-48-3585Aentzwg encounter jqhlvvtqu05/25/2021 [facility]ment [facility] RehabStart: 07-17-2021 End: 74-64-4353Krmvodf encounter ylhmgsdxb02/21/2021 [facility]ment [facility] RehabStart: 07-16-2021 End: 11-01-9465Wsgqoqg encounter aocjtdkmw57/20/2021 [facility]ointment [facility] Card[facility] RehabStart: 07-14-2021 End: 61-51-6866Kkinbnl encounter gontjsocs52/18/2021 [facility]ointment [facility] Card[facility] RehabStart: 07-10-2021 End: 64-32-0446Mtzomvb encounter nedmwrjvo87/14/2021 Appointment [facility] Cardiac RehabStart: 07-09-2021 End: 93-87-6170Oetyztx encounter crqhaiqjv77/13/2021 [facility] Card[facility] RehabStart: 07-07-2021 End: 67-17-7459Dfcklxo encounter mgabbkowt10/11/2021 [facility]ointment [facility] Card[facility] RehabStart: 07-03-2021 End: 20-37-9204Ryvbgkv encounter ssnjoyrue25/07/2021 [facility]ointment [facility] RehabStart: 07-02-2021 End: 08-32-4337Gboxaib encounter egiiuewxe06/06/2021 [facility]ment [facility] RehabStart: 06-30-2021 End: 19-47-4403Twlrcef encounter ncnzjgsno55/04/2021 [facility]ointment [facility] RehabStart: 06-26-2021 End: 19-71-4938Ndcwnvm encounter ycajkcbyj31/30/2021 [facility]ointment [facility] RehabStart: 06-25-2021 End: 14-52-3295Jrbtwva encounter ojibkregb79/29/2021 [facility]ointment [facility] RehabStart: 06-23-2021 End: 11-16-8853Aflmtau encounter /27/2021 [facility]ment [facility] RehabStart: 06-19-2021 End: 82-07-0696Ducnnsq encounter vjeswnyye48/23/2021 [facility]ointment [facility] RehabStart: 06-18-2021 End: 33-77-8000Ufjlqgg encounter aivjdtyzp10/22/2021 [facility]ointment [facility] RehabStart: 06-16-2021 End: 45-21-6603Byyjbmz encounter yzswhmhjn12/20/2021 [facility]ointment [facility] RehabStart: 06-12-2021 End: 98-12-8199Efzrpin encounter ufwmbpgfk82/16/2021 [facility]ment [facility] RehabStart: 06-11-2021 End: 95-36-0117Tsohemt encounter /15/2021 [facility]ointment [facility] RehabStart: 06-09-2021 End: 02-52-6817Etzlgau encounter fsealytbq96/13/2021 [facility]ointment [facility] RehabStart: 06-05-2021 End: 93-37-9001Ljwdxlg encounter ahpswavys07/09/2021 [facility]ment [facility] RehabStart: 06-04-2021 End: 77-42-6879Ulbdkvm encounter omcxyjzad94/08/2021 Appointment [facility] RehabStart: 06-02-2021 End: 91-92-8249Doavxzw encounter muvojmkug58/06/2021 [facility] RehabStart: 05-29-2021 End: 21-96-9605Hcpqydf encounter svoonbmux15/02/2021 Appointment [facility] Cardiac RehabStart: 75-40-9819Kibxpscnn vaccinationFlu vaccine (#1)[employer] Work Phone: start: 05-28-2021 End: 09-49-1659Hsfkdpg encounter dybywpdlj61/01/2021 Appointment [facility] RehabStart: 05-26-2021 End: 31-46-4767Fqcycxp encounter prtixbnzg86/30/2021 Appointment [facility] RehabStart: 05-22-2021 End: 99-28-7640Noancyp encounter xudeemytd10/26/2021 Appointment [facility] RehabStart: 05-21-2021 End: 17-31-9440Nhkqpyt encounter mcedambga43/25/2021 Appointment [facility] RehabStart: 05-19-2021 End: 80-05-2369Blnarut encounter bmskdbhti43/23/2021 Appointment [facility] RehabStart: 05-15-2021 End: 04-43-9067Jdfwapi encounter gnfmwesei50/19/2021 Appointment [facility] RehabStart: 05-14-2021 End: 53-33-4800Buqgqbd encounter ibbtfvsgp10/18/2021 Appointment [facility] RehabStart: 05-12-2021 End: 41-00-1917Ydpjueb encounter jwytcahnf26/16/2021 Appointment [facility] RehabStart: 05-08-2021 End: 68-65-6020Rkmtrtc encounter flzgobzzo81/12/2021 App[facility]ment [facility] RehabStart: 05-07-2021 End: 01-54-1323Adjnbnh encounter opsringbs53/11/2021 Appointment [facility] Card[facility] RehabStart: 05-05-2021 End: 32-12-6326Bgsoatx encounter szuwkkjyl84/09/2021 [facility] RehabStart: 05-01-2021 End: 31-34-9982Snfjban encounter nvwcayaqy58/05/2021 Appointment [facility] RehabStart: 04-30-2021 End: 94-73-4303Jpydnrs encounter qihiuxjaf91/04/2021 App[facility]ment [facility] RehabStart: 04-28-2021 End: 53-83-1856Muiwvyh encounter ssstotpwa48/02/2021 Appointment [facility] RehabStart: 04-24-2021 End: 96-88-9671Hufbyvs encounter ynryvscsd62/29/2021 Appointment [facility] RehabStart: 04-23-2021 End: 93-38-7974Bmkdhvu encounter oibmefusb79/28/2021 Appointment [facility] RehabStart: 04-21-2021 End: 72-19-3280Otbtshn encounter /26/2021 Appointment [facility] RehabStart: 04-17-2021 End: 85-60-5918Wejtqaj encounter /22/2021 Appointment [facility] RehabStart: 04-16-2021 End: 06-03-9078Ldxluyk encounter dntqalzjt70/21/2021 Appointment [facility] Card[facility] RehabStart: 04-14-2021 End: 11-68-5610Rxiycdd encounter ryrackjon02/19/2021 Appointment [facility] Card[facility] RehabStart: 04-10-2021 End: 95-07-6172Uxlfvfo encounter kkhydaodi55/15/2021 Appointment [facility] Cardiac RehabStart: 06-01-1964Tfztnnruuqrchg of varicella zoster vaccineZoster (Shingles) Vaccine (1 of 2)[employer] Prospect[employer]art: 78-59-0430Gpnzbynrp for malignant neoplasm of breastBreast cancer screenTrinity Health System Twin City Medical CenterYugma Work Phone: start: 67-14-0566Rqetrdew Vaccine (1 of 2)Shingles Vaccine (1 of 2)[employer] Phone: start: 91-34-3498Mqqebdoju for malignant neoplasm of colonColon cancer screen colonoscopyTrinity Health System Twin City Medical CenterYugma Work Phone: start: 83-75-0633Ncgwoeve screenDiabetes screenMercy Health St. [facility] [employer] Work Phone: start: 52-03-1427Xrbhqfyxp for malignant neoplasm of cervixMercy Health St. [facility] [employer] Phone: start: 62-28-9960Qchqzbfpc for malignant neoplasm of cervixR[facility]ide [facility] [employer] SystemStart: 84-77-6014WCzD,Tdap and Td Vaccines (1 - Tdap)DTaP,Tdap and Td Vaccines (1 - Tdap)[facility] SystemStart: 98-40-9263ATrW/Tdap/Td vaccine (1 - Tdap)DTaP/Tdap/Td vaccine (1 - Tdap)[employer] Phone: start: 08-04-9465Qykjfyubr A Vaccines (1 of 2 - Risk 2-dose series)Hepatitis A Vaccines (1 of 2 - Risk 2-dose series)[facility] Healthcare Start: 61-80-4663Wbxrzpxfrvjx Vaccine: Pediatrics (0 to 5 Years) and At-Risk Patients (6 to 64 Years) (1 of 2 - PCV)Pneumococcal Vaccine: Pediatrics (0 to 5 Years) and At-Risk Patients (6 to 64 Years) (1 of 2 - PCV)[facility] HospitalStart: 86-91-5471VSH screeningHIV [facility] [employer] Phone: start: 76-93-2181UMXMG-19 Vaccine (1)COVID-19 Vaccine (1)[facility] [employer] Phone: start: 37-76-5715Kdmlccqykh ScreeningDepression ScreeningSt. Elizabeth Hospital SystemStart: 42-48-0333Xibhtxxs screeningDiabetes: Retinopathy ScreeningNOMS HealthcareStart: 57-91-4873Zmmmz panelLipid screen [facility] [employer] Phone: start: 49-55-0527MZeQ/Tdap/Td Vaccines (1 - Tdap) DTaP/Tdap/Td Vaccines (1 - Tdap)[facility] HealthcareStart: 19-37-3432Txcrlyrdujbc 0- 64 years Vaccine (1 of 2 - PPSV23)Pneumococcal 0-64 years Vaccine (1 of 2 - PPSV23)[facility] CenterCom[facility] Work Phone: start: 12-23-0269DLT Vaccines (1 of 1 - Standard series)MMR Vaccines (1 of 1 - Standard series)[facility] HealthcareStart: 1960 Creatinine measurementCreatinine monitoringMerKaeuferportal Health Work Phone: start: 64-19-7807Ckvczkqmb C screeningHepatitis C screenMerKaeuferportal Health Work Phone: start: 52-76-3959Slemhonbz monitoringPotassium monitoringMerKaeuferportal Health Work Phone: start: 74-50-4179Jykogceqq for malignant neoplasm of colonNONH HealthcareStart: 92-02-6675Sdgmkfq CounselingTobacco Counseling [facility], IncBLOOD CULTURE 1BLOOD CULTURE 1 Lab Routine 05/09/2025 9:04 AM EDTNOMS HealthcareBLOOD CULTURE 2BLOOD CULTURE 2 Lab Routine 05/09/2025 11:05 AM EDTNONH HealthcareCARDIAC PHASE IIMer Health Work Phone: comment on above:Ordered: 05/26/2021Ordered: 05/28/2021Ordered: 07/02/2021MG Breast - bilateral [facility]eningAsc[facility] Payers DatePayer CategoryPayerPolicy [id number] 2024Medicaid [facility] [id number] Health Insurance [facility] MEDICA[facility] Member Subscriber Plan / Payer (Effective 2022- Present) Name: Fausto Corrigan Relation to Subscriber: Self Name: Fausto Corrigan Payer ID: Not on file Group ID: Not on file Type: Not on file Address: [address] [id number] 2020Medicaid [id number] 2.840.1.240645.3.57[id number] 2.16840.1.195473.3.57[id number] 2.16840.1.234828.3.57[id number] 2.16840.1.484794.3.57[id number] 2.16840.1.016681.3.57[id number] 2.16.840.1.190308.3.579.[id number] 2.16.840.1.624314.3.57[id number] 2.16840.1.699989.3.579.2.56094-88-7057Zffsqqy48951276 2.16840.1.690300.3.579.2.[id number] 2.16.840.1.467759.3.579.2.79670-80-0441Hcpodvy27904304 2.16.840.1.516051.3.579.2.[id number] 2.16.840.1.365857.3.579.2.86889-22-6287Zufukip80805564 2.16840.1.228101.3.579.[id number] 2.840.1.267415.3.579.2.70997-25-9102Rhqtzsy79734832 2.840.1.129037.3.579.2.18621-98-2282Tmntykz02172036 2.840.1.352146.3.579.2.11640-85-7906Vdhyofb25525577 2.840.1.847550.3.579.2.81[id number] 2.840.1.624602.3.579.2.68953-89-8642Nouugpv98991409 2..840.1.521378.3.579.2.63503-78-8359Yfloljb84192551 2.840.1.274678.3.579.2.91263-34-4846Smaxvcc82297237 2.840.1.736254.3.579.2.20425-42-8085Wqmzubc61534450 2.16.840.1.921979.3.579.2.17298-73-1592Sfqltns59701458 2.16.840.1.869491.3.579.2.76814-81-4692Wklzyqv74298601 2.16.840.1.049481.3.579.[id number] 2.16.840.1.538672.3.57[id number] 2.16.840.1.535729.3.579.2.323[id number] 2.16.840.1.688123.3.57[id number] 2.16.840.1.959048.3.579.2.29029-47-5912Mzjewpk0561693 2.16.840.1.384925.3.579.2.66972-52-6690Whpjxie1236775 2.16.840.1.623353.3.579.2.51002-71-0154Axzksow4975142 2.16.840.1.802068.3.579.2.89006-38-4822Gjkrskq3856127 2.16.840.1.656937.3.579.2.63137-54-4962Zsyectu203864452 2.16.840.1.182824.3.579.2.93215-09-6786Atwsdeq40987162 2.16.840.1.324997.3.579.2.400322-26-5003Mlczxwf17010660 2.16.840.1.491787.3.579.2.51293-29-3219Nhtniar47956635 2.16.840.1.488890.3.579.2.687156-31-0002Hybrcno22726289 2.16.840.1.996683.3.579.2.147558-61-1968Bpjppqm65081966 2.16.840.1.918423.3.579.2.957383-65-3714Xrnhwpr0961498 2.16.840.1.864436.3.57[id number] 2.16.840.1.351682.3.57[id number] 2.16.840.1.606086.3.57[id number] 2.16.840.1.338468.3.57[id number] 2.16.840.1.110922.3.57[id number] 2.16.840.1.182567.3.57[id number] 2..840.1.099824.3.57[id number] 2..840.1.266173.3.579.2.1259 [id number] 1958Unknown [id number] 2.16.840.1.762758.3.579.2.531 Social History DateTypeDetailFacilityStart: 04-08-2021 End: 95-86-3977Alpofph smoking status NHISCurrent every day smokerAll Copy Products Phone: History of tobacco useCigarette SmokerLybrate Start: 04-08-2021 End: 06-25-6406Aemwdvcrmm smoked current (pack per day) - ReportedAll Copy Products Phone: comment on above:POP DAILY;6 CIGS A DAY;Start: 04-08-2021 End: 39-28-0193Suhwefx use and exposureNever usedLybrateStart: 04-08-2021 End: 38-40-2365Mzqlaed intakeEx-drinker (finding)[employer] Work Phone: start: 69-26-0248Bribnig Comment2 cigs a dayTrinity Health System [facility] CenterYugma Work Phone: start: 08-22-4654Oel Assigned At BirthNot on [employer] Work Phone: start: 06-21-2024 End: 29-22-9780Yrqpwqo use panelNONH HealthcareStart: 81-62-3973Wgdalvt Comment caffeine 2-3 cups per dayH[facility] HealthcareStart: 63-83-4289Heiukvpkv beverage intakeLifetime non-drinker (finding)[place]: 12-09-2022 ChildcareUnknownNOMS HealthcareStart: 05-02-2015 End: 20-51-8158BptFuuzep (finding)[facility]Start: 02-25-2021 Tobacco smoking statusLight tobacco smoker (finding)[facility] HospitalT[facility] smoking statusSmoker (finding)[facility] Start: 30-04-2586Cji Assigned At [facility] Medical Equipment Procedure CodeEquipment CodeEquipment Original TextEquipment IdentifierDates Drug-eluting coronary artery stent, iin-fcypmfieapijt-pbvhnif-coated ()[id number] FDAStart: 03-20-2021 Functional Status ExynAimznyqdjlEwrieyTpxscbqw93-03-5631Unbscqi Health Questionnaire 2 item (PHQ- 2) [Reported][facility] Clinical Notes 04-08-2021 to 05-21-2025 Note Date & NwyoMexlVirrbtvn62-99-0807 History of Present illness Narrative* Veronique Harris NP - 05/21/2025 3:19 PM EDTAssociated Problem(s): LIA (acute kidney injury) Recheck labs Remain on lower dose of lisinopril 5mg, stay at that dose * Veronique Harris NP - 05/21/2025 3:18 PM EDTAssociated Problem(s): Hypokalemia basic * Veronique Harris NP - 05/21/2025 3:18 PM EDTAssociated Problem(s): Type 2 diabetes mellitus with diabetic chronic kidney disease (HCC) Check blood sugars daily, notify if <70 or >200. Take medications (pills or insulin) as directed. Monitor for s/s of hypoglycemia (sweaty, dizziness, nausea, vomiting, or shakiness). Watch for increase in thirst, urination, or appetite. Inspect feet frequently monitoring for open wounds , andalso recommend yearly eye exam. Pt should attempt to remain as physically active as chronic conditions allow, as well as trying to follow a diet low in carbohydrates, and simple sugars. Current meds: asa, statin, jardiance, pioglitazone A1c: 6.7% 04/05/25 * Veronique Harris NP - 05/21/2025 3:18 PM EDTAssociated Problem(s): Gastroesophageal reflux disease without esophagitis Recommendations: freq small meals, nothing to eat or drink at least 2 hours prior to bed, limit caffeine, alcohol, as well as spicy foods Meds to limit or avoid if possible: NSAIDS Elevate HOB if possible Current meds: PPI * Veronique Harris NP - 05/21/2025 3:17 PM EDTAssociated Problem(s): Nausea and vomiting Resolved Recheck basic * Veronique Harris NP - 05/21/2025 3:17 PM EDTAssociated Problem(s): Generalized abdominal pain See labs, CT scan Saw GI * Veronique Harris NP - 05/21/2025 2:50 PM EDTAssociated Problem(s): HTN (hypertension) Please check blood pressure daily and record DASH diet Limit caffeine Take medication as directed Contact office if chest pain, pressure, dizziness, shortness of breath, swelling legs Recommend slow position changes Current med: b karon and noah (lisinopril at 5mg daily) * GABRIELA AMEZQUITA - 05/21/2025 2:20 PM EDT Medication from the hospital is not working-she [...] upper and lower GI done on 06/12 * Veronique Harris NP - 05/21/2025 2:20 PM EDT Images from the original note were not [...] inhaler 2 puffs, Inhalation, 2 times daily, [place] after use dicyclomine (Bentyl) 10 MG capsule [...] Past Medical History: Diagnosis Date Abnormal CXR Jgjat-6-unerrtbidujyyjtw deficiency 12/09/2023 Atypical mole Chronic obstructive pulmonary disease ([facility]) Cigarette nicotine dependence with nicotine-induced disorder 12/09/2023 Coronary artery disease Dental infection 12/09/2023 Diabetes type 2, controlled ([facility]) 09/30/2023 Diverticulitis 11/16/2023 Diverticulosis diverticulosis/diverticulitis Elevated alkaline phosphatase level 11/24/2023 Gastroesophageal reflux disease without esophagitis 09/16/2023 Generalized abdominal pain 08/31/2023 HTN (hypertension) Hypothyroidism Other specified hypothyroidism 09/16/2023 Pain, dental Perforated diverticulum 2016 perforated diverticuli Postmenopausal postcoital bleeding 12/09/2023 Seasonal allergic rhinitis due to pollen 12/09/2023 Stage 3a chronic kidney disease (CKD) ([facility]) 12/09/2023 STEMI (ST elevation myocardial infarction) ([facility]) Stress at home 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 [...] feet frequently monitoring for open wounds , andalso recommend yearly eye exam. Pt should attempt [...] stay at that dose documented in this [facility]08-25-2025 Instructions* Patient Instructions* Veronique Harris NP - 05/21/2025 2:20 PM EDT Check labs Keep lisinopril at 5mg daily at this time A referral for Dr Armendariz for lung doctor documented in this [facility]08-25-2025 History of Present illness Narrative* Pantera Yao MD - 05/21/2025 9:30 AM EDT Images from the original note were not included. Fausto Corrigan 1960 Fausto Corrigan is a 64 y.o. female presents with chief complaint of Consult (Colovaginal fistula/SawGI next door and will be doing and [...] for about 1 month before admission. She leftthe hospital on the April and has felt better apart from continued diarrhea. She describes the diarrhea as constant, liquid with no blood or mucus that worsens when taking her medications as prescribed. Pt admits to mid- epigastric abdominal pain as well that is burning all the time ,is worse when lying down, and is unchanged regardless of what she eats. Her diet since discharge has consisted of soft foods included macaroni and cheese, macaroni salad, and milkshakes out of ice. She also described a 2-lb weight loss since discharge from the hospital. PSHx includes appendectomy, cholecystectomy, and hysterectomy; PMHx includes hyperlipidemia, hypertension, and diabetes. She de nies anymore vomiting, nausea, constipation. Patient presents with no other complaints. Patient is referred for possible colovaginal fistula. She states years ago, she did have symptoms such as drainage of stool from the vaginal region. Patient was referred to [facility] and apparently did not require any surgery for this. She states these symptoms did resolve and she has not noticed any vaginal drainage recently. Sometimes however because of her diarrhea, she can not tell forsure whether or not there is any vaginal [...] inhaler 2 puffs, Inhalation, 2 times daily, [place] after use dicyclomine (Bentyl) 10 MG capsule [...] Past Medical History: Diagnosis Date Abnormal CXR Qssbh-8-oggndsrhlqttxgqz deficiency 12/09/2023 Atypical mole Chronic obstructive pulmonary disease ([facility]) Cigarette nicotine dependence with nicotine-induced disorder 12/09/2023 Coronary artery disease Dental infection 12/09/2023 Diabetes type 2, controlled ([facility]) 09/30/2023 Diverticulitis 11/16/2023 Diverticulosis diverticulosis/diverticulitis Elevated alkaline phosphatase level 11/24/2023 Gastroesophageal reflux disease without esophagitis 09/16/2023 Generalized abdominal pain 08/31/2023 HTN (hypertension) Hypothyroidism Other specified hypothyroidism 09/16/2023 Pain, dental Perforated diverticulum 2017 perforated diverticuli Postmenopausal postcoital bleeding 12/09/2023 Seasonal allergic rhinitis due to pollen 12/09/2023 Stage 3a chronic kidney disease (CKD) ([facility]) 12/09/2023 STEMI (ST elevation myocardial infarction) ([facility]) Stress at home 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 [...] no obvious symptomatic colovaginal fistula. We can re- evaluate this depending on the findings on colonoscopy. Next appointment: 06/22/2025 documented in this encounterGolden Valley Memorial [id number] Evaluation note* Diagnosis Onset Date Resolution Status Admit Date Abnormal CT of the abdomen acuteAugust 2024 10:09amDiarrheaacuteAugust 2024 10:09amNausea & vomitingacuteAugust 2024 10:09amRecto-vaginal fistulaacuteAugust 2024 10:31laYwknd-7-qefwiocjmde deficiencyacuteOctober 2024 9:34amBreast cancer screeningacuteOctober 2024 9:34amCigarette nicotine dependence with nicotine-induced disorderacuteOctober 2024 9:34amCOPD (chronic obstructive pulmonary disease)acuteOctober 2024 9:34amCoughacuteOctober 2024 9:34amEssential hypertensionacuteOctober 2024 9:34amGERD without esophagitisacuteOctober 2024 9:34amRecto-vaginal fistulaacute July 11, 2025 9:34amScreening for lung canceracuteOctober 2024 9:34am Type 2 diabetes mellitus with chronic kidney disease, without long-term curacute July 11, 2025 9:34am [facility] Work Phone: 1(775) 267-457008-22-2025 Evaluation note* Diagnosis Onset Date Resolution Status Admit Date Abnormal CT of the abdomen acuteAugust 2024 10:09amDiarrheaacuteAugust 2024 10:09amNausea & vomitingacuteAugust 2024 10:09amRecto-vaginal fistulaacuteAugust 2024 10:39kmUcrca-1-tpylhutdzxl deficiencyacuteOctober 2024 9:34amBreast cancer screening declinedacuteOctober 2024 9:34amCigarette nicotine dependence with nicotine-induced disorderacuteOctober 2024 9:34amCOPD (chronic obstructive pulmonary disease)acuteOctober 2024 9:34amCoughacute July 11, 2025 9:34amEssential hypertensionacuteOctober 2024 9:34am GERD without esophagitisacuteOctober 2024 9:34amLung cancer screening declined by patientacuteOctober 2024 9:34amRecto-vaginal fistulaacute July 11, 2025 9:34amType 2 diabetes mellitus with chronic kidney disease, without long-term curacuteOctober 2024 9:34am [facility] Work Phone: 1(939) 702-104807-17-2025 Telephone encounter Note* Telephone Encounter - Narda Gayle - 04/12/2025 9:27 AM EDT Thank you for letting me know Jaden. Next no show no call we will not be able to reschedule another appt. [facility] [id number] Miscellaneous Notes* Telephone Encounter - Narda Gayle - 04/12/2025 9:27 AM EDT Thank you for letting me know Jaden. Next no show no call we will not be able to reschedule another appt. * Telephone Encounter - Jaden Sherwood - 04/11/2025 10:35 AM EDT Patient no showed her appointment with Dr. Bao Noble today. This is her second no show with our office (12/27/2024 & 04/11/2025). documented in this encounterGolden Valley Memorial [id number] Telephone encounter Note* Telephone Encounter - Jaden Sherwood - 04/11/2025 10:35 AM EDT Patient no showed her appointment with Dr. Bao Noble today. This is her second no show with our office (12/27/2024 & 04/11/2025). [facility] [id number] History of Present illness Narrative* Veronique Harris NP - 04/05/2025 10:20 AM EDTAssociated Problem(s): Other specified hypothyroidism On levothyroxine Check labs yearly, and prn dose change or changes in sxs * Veronique Harris NP - 04/05/2025 9:40 AM EDT Images from the original note were not included. Fausto Corrigan is a 64 y.o. female presents with chief complaint of Diabetes HPI: Diabetes She presents for her follow-up diabetic visit. She has type 2 diabetes mellitus. Her disease coursehas been stable. There are no hypoglycemic associated symptoms. Pertinent negatives for hypoglycemia include no dizziness, headaches, nervousness/anxiousness, seizures or tremors. Pertinent negativesfor diabetes include no blurred vision, no chest pain, no foot paresthesias, no polydipsia, no polyphagia and no polyuria. There are no hypoglycemic complications. Symptoms are stable. Diabetic complications include heart disease. Pertinent negatives for diabetic complications include no peripheralneuropathy. Risk factors for coronary artery disease include diabetes mellitus, dyslipidemia and hyp ertension. Current diabetic treatment includes oral agent (dual therapy). She is compliant with treatment most of the time. An NOAH inhibitor/angiotensin II receptor karon is being taken. She does not see a tapping machine operator automatic.Eye exam is not current. Hypertension This is [...] no compliance problems. Hypertensive end-organ damage includes CAD/RI. There is no history of heart failure. SUBJECTIVE: MEDICATIONS: Current Outpatient Medications Medication Instructions albuterol HFA 90 mcg/act inhaler 2 puffs, Inhalation, Every 6 hours PRN albuterol 2.5 mg, 4 times daily ASPIRIN 81 PO 81 mg, Daily atorvastatin (LIPITOR) 80 mg, Oral, Nightly budesonide-formoterol (Symbicort) 160-4.5 MCG/ACT inhaler 2 puffs, Inhalation, 2 times daily, [place] after use dicyclomine (Bentyl) 10 MG capsule [...] Past Medical History: Diagnosis Date Abnormal CXR Goguc-2-gdrmxxxppytgeipy deficiency 12/09/2023 Atypical mole Chronic obstructive pulmonary disease (HCC) Cigarette nicotine dependence with nicotine-induced disorder 12/09/2023 Coronary artery disease Dental infection 12/09/2023 Diabetes type 2, controlled ([facility]) 09/30/2023 Diverticulitis 11/16/2023 Diverticulosis diverticulosis/diverticulitis Elevated alkaline phosphatase level 11/24/2023 Gastroesophageal reflux disease without esophagitis 09/16/2023 Generalized abdominal pain 08/31/2023 HTN (hypertension) Hypothyroidism Other specified hypothyroidism 09/16/2023 Pain, dental Perforated diverticulum 2016 perforated diverticuli Postmenopausal postcoital bleeding 12/09/2023 Seasonal allergic rhinitis due to pollen 12/09/2023 Stage 3a chronic kidney disease (CKD) ([facility]) 12/09/2023 STEMI (ST elevation myocardial infarction) ([facility]) Stress at home 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 [...] and noah RESOLVED: Diabetes type 2, controlled (HCC) Relevant Orders POCT glycosylated hemoglobin (Hb A1C) docked device Breast cancer screening by mammogram Cigarette nicotine dependence with nicotine-induced disorder The patient has been advised of the risks of continued smoking: stroke, RI, all forms of cancer, lung disease, and . Options for quitting smoking include: cold turkey, hypnosis, acupuncture, nicotine replacement meds(gum, lozenges, and patches), Buproprion, and Varenicline. At this time pt is encouraged to evaluate their goals for wanting to quit smoking, and reach out toprovider when ready to start this process Chronic kidney disease, stage 3a (CMS-HCC) Check labs yearly and prn Control BP and DM On jardiance Vaginal bleeding Insurance denied CT Pt was referred to [facility], according to chart note entry pt was [...] feet frequently monitoring for open wounds , andalso recommend yearly eye exam. Pt should attempt to remain as physically active as chronic conditions allow, as well as trying to follow a diet low in carbohydrates, and simple sugars. Current meds: asa, statin, jardiance, pioglitazone Medical non-compliance Has not gotten labs completed from 12/19, did not go to MASSOTHERAPIST appt either * Veronique Harris NP - 04/05/2025 6:22 AM EDTAssociated Problem(s): Cigarette nicotine dependence with nicotine-induced disorder The patient has been advised of the risks of continued smoking: stroke, RI, all forms of cancer, lung disease, and . Options for quitting smoking include: cold turkey, hypnosis, acupuncture, nicotine replacement meds(gum, lozenges, and patches), Buproprion, and Varenicline. At this time pt is encouraged to evaluate their goals for wanting to quit smoking, and reach out toprovider when ready to start this process * Veronique Harris NP - 04/05/2025 6:19 AM EDTAssociated Problem(s): Medical non-compliance Has not gotten labs completed from 12/19, did not go to MASSOTHERAPIST appt either I have explained that labs are needed to safely prescribe meds no meds until labs Explained reason for MASSOTHERAPIST, # given Will resend low dose CT chest and mammogram to [facility] * Veronique Harris NP - 04/05/2025 6:18 AM EDTAssociated Problem(s): Type 2 diabetes mellitus with diabetic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 (CMS/HCC) Primary hypertension ([facility]/HCC) Unspecified essential hypertension Coronary artery disease involving [place] coronary artery of [place] heart without angina pectoris (CMS/HCC) Gastroesophageal reflux disease without esophagitis Esophageal reflux Iauyl-6-nkesahlfmwgomejm deficiency Microscopic hematuria Current smoker Elevated alkaline phosphatase level Hx of colonoscopy with polypectomy Controlled type 2 diabetes mellitus without complication, without long-term current use of insulin ([facility]/HCC)- Primary UTI symptoms Acute cystitis without hematuria Vaginal bleeding Other specified noninflammatory disorder of vagina Vaginal discharge Leukorrhea, not specified as infective Mixed hyperlipidemia (CMS/HCC) Mixed hyperlipidemia Chronic obstructive pulmonary disease, unspecified COPD type (CMS/HCC) Gastroesophageal reflux disease without esophagitis Esophageal reflux Other specified hypothyroidism ([facility]/HCC) Primary hypertension ([facility]/HCC) Unspecified essential hypertension Seasonal allergic rhinitis due to pollen Controlled type 2 diabetes mellitus without complication, without long-term current use of insulin ([facility])- Primary Type 2 diabetes mellitus with diabetic chronic kidney disease ([facility]) Chronic kidney disease, stage 2 (mild) Chrjx-0-yqoqzdezpwj deficiency ([facility]/HCC) Dmrlf-2-mgydizjoudm deficiency Mixed hyperlipidemia ([facility]/HCC) Mixed hyperlipidemia Chronic obstructive pulmonary disease, unspecified COPD type ([facility]/HCC) Gastroesophageal reflux disease without esophagitis Esophageal reflux Other specified hypothyroidism ([facility]/HCC) Primary hypertension ([facility]/HCC) Unspecified essential hypertension Seasonal allergic rhinitis due to pollen Tobacco user Tobacco use disorder Coronary artery disease involving [place] coronary artery of [place] heart without angina pectoris ([facility]/HCC) Abdominal aortic pulsation Acute bilateral low back pain without sciatica Acute bilateral low back pain without sciatica- Primary Cigarette nicotine dependence with nicotine-induced disorder Primary hypertension ([facility]/HCC) Unspecified essential hypertension Abdominal aortic pulsation Screening for lung cancer Tobacco user Tobacco use disorder Gastroesophageal reflux disease without esophagitis Esophageal reflux documented in this encounter [facility] HealthcareEvaluation note* Diagnosis Controlled type 2 diabetes mellitus without complication, without long-term current use of insulin ([facility] [facility] Primary Type 2 diabetes mellitus with diabetic chronic kidney disease ([facility]/HCC) Chronic kidney disease, stage 3a (HCC) ([facility]/HCC) Chronic obstructive pulmonary disease, unspecified ([facility]/HCC) Rrqil-2-dveiggxgbbp deficiency ([facility]/HCC) Jvklz-2-xbgqipkrlaw deficiency Centrilobular emphysema (CMS/HCC) Primary hypertension ([facility]/HCC) Unspecified essential hypertension Coronary artery disease involving chick[place] indians[place] division coronary artery of [place]ians[place] division heart without angina pectoris ([facility]/HCC) Gastroesophageal reflux disease without esophagitis Esophageal reflux Uarkq-3-getjeaivlegjkfzl deficiency Microscopic hematuria Current smoker Elevated alkaline phosphatase level Hx of colonoscopy with polypectomy Controlled type 2 diabetes mellitus without complication, without long-term current use of insulin ([facility])- Primary UTI symptoms Acute cystitis without hematuria Vaginal bleeding Other specified noninflammatory disorder of vagina Vaginal discharge Leukorrhea, not specified as infective Mixed hyperlipidemia (CMS/HCC) Mixed hyperlipidemia Chronic obstructive pulmonary disease, unspecified COPD type (CMS/HCC) Gastroesophageal reflux disease without esophagitis Esophageal reflux Other specified hypothyroidism ([facility]/HCC) Primary hypertension ([facility]/HCC) Unspecified essential hypertension Seasonal allergic rhinitis due to pollen Controlled type 2 diabetes mellitus without complication, without long-term current use of insulin ([facility] Primary Type 2 diabetes mellitus with diabetic chronic kidney disease ([facility]) Chronic kidney disease, stage 2 (mild) Qrtaa-3-jsqkdvlwaal deficiency ([facility]/HCC) Sxozx-9-pdezuodvyxz deficiency Mixed hyperlipidemia ([facility]/HCC) Mixed hyperlipidemia Chronic obstructive pulmonary disease, unspecified COPD type ([facility]) Gastroesophageal reflux disease without esophagitis Esophageal reflux Other specified hypothyroidism ([facility]/HCC) Primary hypertension ([facility]/HCC) Unspecified essential hypertension Seasonal allergic rhinitis due to pollen Tobacco user Tobacco use disorder Coronary artery disease involving [place] indians[place] division coronary artery of [place]ians[place] heart without angina pectoris ([facility]/HCC) Abdominal aortic pulsation Acute bilateral low back pain without sciatica Acute bilateral low back pain without sciatica- Primary Cigarette nicotine dependence with nicotine-induced disorder Primary hypertension ([facility]/HCC) Unspecified essential hypertension Abdominal aortic pulsation Screening for lung cancer Tobacco user Tobacco use disorder Gastroesophageal reflux disease without esophagitis Esophageal reflux documented in this encounter [facility] HealthcareEvaluation note* Diagnosis Controlled type 2 diabetes mellitus without complication, without long-term current use of insulin ([facility] Primary Type 2 diabetes mellitus with diabetic chronic kidney disease ([facility]/HCC) Chronic kidney disease, stage 3a (HCC) ([facility]) Chronic obstructive pulmonary disease, unspecified ([facility]/HCC) Shvxz-9-ccekpnpskqn deficiency ([facility]/HCC) Xssda-7-oftfvwehduz deficiency Centrilobular emphysema (CMS/HCC) Primary hypertension ([facility]/HCC) Unspecified essential hypertension Coronary artery disease involving chick[place] indians-e[place] division coronary artery of [place]ians[place] heart without angina pectoris ([facility]/HCC) Gastroesophageal reflux disease without esophagitis Esophageal reflux Jkmgn-7-bmrjyegoqhcltjxl deficiency Microscopic hematuria Current smoker Elevated alkaline [...] (CMS/HCC) Chronic kidney disease, stage 2 (mild) Vjbzf-2-lxypisxmiop deficiency (CMS/HCC) Nafmz-9-ebnpkwcqtza deficiency Mixed hyperlipidemia (CMS/HCC) Mixed hyperlipidemia Chronic obstructive pulmonary disease, unspecified COPD type (CMS/HCC) Gastroesophageal reflux disease without esophagitis Esophageal reflux Other specified hypothyroidism (CMS/HCC) Primary hypertension (CMS/HCC) Unspecified essential hypertension Seasonal allergic rhinitis due to pollen Tobacco user Tobacco use disorder Coronary artery disease involving [place]ians[place] division coronary artery of [place]ians[place] heart without angina pectoris (CMS/HCC) Abdominal aortic pulsation Acute bilateral low back pain without sciatica Acute bilateral low back pain without sciatica- Primary Cigarette nicotine dependence with nicotine-induced disorder Primary hypertension (CMS/HCC) Unspecified essential hypertension Abdominal aortic pulsation Screening for lung cancer Tobacco user Tobacco use disorder Dental infection- Primary documented in this encounter [facility] HealthcareEvaluation note* Diagnosis Controlled type 2 diabetes mellitus without complication, without long-term current use of insulin (CMS/HCC)- Primary Type 2 diabetes mellitus with diabetic chronic kidney disease (CMS/HCC) Chronic kidney disease, stage 3a (HCC) (CMS/HCC) Chronic obstructive pulmonary disease, unspecified (CMS/HCC) Yipkn-3-hgksykdgxpw deficiency (CMS/HCC) Yiuwx-1-qytdmkguoev deficiency Centrilobular emphysema (CMS/HCC) Primary hypertension (CMS/HCC) Unspecified essential hypertension Coronary artery disease involving [place] indians-e[place] division coronary artery of [place]ians[place] division heart without angina pectoris (CMS/HCC) Gastroesophageal reflux disease without esophagitis Esophageal reflux Vkpku-9-gxtbrnpkrwwumpjc deficiency Microscopic hematuria Current smoker Elevated alkaline phosphatase level Hx of colonoscopy with polypectomy Controlled type 2 diabetes mellitus without complication, without long-term current use of insulin ([facility]/HCC)- Primary UTI symptoms Acute cystitis without hematuria Vaginal bleeding Other specified noninflammatory disorder of vagina Vaginal discharge Leukorrhea, not specified as infective Mixed hyperlipidemia (CMS/HCC) Mixed hyperlipidemia Chronic obstructive pulmonary disease, unspecified COPD type (CMS/HCC) Gastroesophageal reflux disease without esophagitis Esophageal reflux Other specified hypothyroidism ([facility]/HCC) Primary hypertension ([facility]/HCC) Unspecified essential hypertension Seasonal allergic rhinitis due to pollen Controlled type 2 diabetes mellitus without complication, without long-term current use of insulin ([facility]/HCC)- Primary Type 2 diabetes mellitus with diabetic chronic kidney disease ([facility]/HCC) Chronic kidney disease, stage 2 (mild) Pjvlo-1-wocuvvjxsqi deficiency ([facility]/HCC) Qgcxi-2-izlrbhagums deficiency Mixed hyperlipidemia ([facility]/HCC) Mixed hyperlipidemia Chronic obstructive pulmonary disease, unspecified COPD type ([facility]/HCC) Gastroesophageal reflux disease without esophagitis Esophageal reflux Other specified hypothyroidism ([facility]/HCC) Primary hypertension ([facility]) Unspecified essential hypertension Seasonal allergic rhinitis due to pollen Tobacco user Tobacco use disorder Coronary artery disease involving [place] indians-e[place] division coronary artery of [place]ians[place] division heart without angina pectoris ([facility]/HCC) Abdominal aortic pulsation Acute bilateral low back pain without sciatica Acute bilateral low back pain without sciatica- Primary Cigarette nicotine dependence with nicotine-induced disorder Primary hypertension ([facility]/HCC) Unspecified essential hypertension Abdominal aortic pulsation Screening for lung cancer Tobacco user Tobacco use disorder UTI symptoms- Primary Tobacco user Tobacco use disorder documented in this encounter [facility] HealthcareEvaluation note* Diagnosis Controlled type 2 diabetes mellitus without complication, without long-term current use of insulin ([facility])- Primary Type 2 diabetes mellitus with diabetic chronic kidney disease ([facility]/HCC) Chronic kidney disease, stage 3a (HCC) ([facility]/HCC) Chronic obstructive pulmonary disease, unspecified ([facility]/HCC) Eawup-1-bwybvouperw deficiency ([facility]/HCC) Bendz-4-oyugagonpor deficiency Centrilobular emphysema ([facility]/HCC) Primary hypertension ([facility]/HCC) Unspecified essential hypertension Coronary artery disease involving chick[place] indians-e[place] division coronary artery of [place] indians[place] division heart without angina pectoris ([facility]/HCC) Gastroesophageal reflux disease without esophagitis Esophageal reflux Ekqnr-7-nvcnfkabtstrwbiz deficiency Microscopic hematuria Current smoker Elevated alkaline phosphatase level Hx of colonoscopy with polypectomy Controlled type 2 diabetes mellitus without complication, without long-term current use of insulin ([facility]/HCC)- Primary UTI symptoms Acute cystitis without hematuria Vaginal bleeding Other specified noninflammatory disorder of vagina Vaginal discharge Leukorrhea, not specified as infective Mixed hyperlipidemia ([facility]/HCC) Mixed hyperlipidemia Chronic obstructive pulmonary disease, unspecified COPD type ([facility]/HCC) Gastroesophageal reflux disease without esophagitis Esophageal reflux Other specified hypothyroidism (CMS/HCC) Primary hypertension ([facility]/HCC) Unspecified essential hypertension Seasonal allergic rhinitis due to pollen Controlled type 2 diabetes mellitus without complication, without long-term current use of insulin ([facility]/HCC)- Primary Type 2 diabetes mellitus with diabetic chronic kidney disease ([facility]/HCC) Chronic kidney disease, stage 2 (mild) Phdtk-4-jimjmwpydhf deficiency ([facility]/HCC) Qogcz-4-slkcxzuenec deficiency Mixed hyperlipidemia ([facility]/HCC) Mixed hyperlipidemia Chronic obstructive pulmonary disease, unspecified COPD type ([facility]) Gastroesophageal reflux disease without esophagitis Esophageal reflux Other specified hypothyroidism ([facility]/HCC) Primary hypertension ([facility]/HCC) Unspecified essential hypertension Seasonal allergic rhinitis due to pollen Tobacco user Tobacco use disorder Coronary artery disease involving [place] indians-e[place] division coronary artery of [place]ians[place] division heart without angina pectoris ([facility]) Abdominal aortic pulsation Acute bilateral low back pain without sciatica Acute bilateral low back pain without sciatica- Primary Cigarette nicotine dependence with nicotine-induced disorder Primary hypertension ([facility]/HCC) Unspecified essential hypertension Abdominal aortic pulsation Screening for lung cancer Tobacco user Tobacco use disorder UTI symptoms- Primary Tobacco user Tobacco use disorder Generalized abdominal pain- Primary Abdominal pain, generalized documented in this encounter [facility] HealthcareEvaluation note* Diagnosis Controlled type 2 diabetes mellitus without complication, without long-term current use of insulin ([facility])- Primary Type 2 diabetes mellitus with diabetic chronic kidney disease ([facility]/HCC) Chronic kidney disease, stage 3a (HCC) ([facility]/HCC) Chronic obstructive pulmonary disease, unspecified ([facility]/HCC) Hvkdl-1-eqvrxvsqqyj deficiency ([facility]/HCC) Zbpor-1-xpdeaestizx deficiency Centrilobular emphysema ([facility]/HCC) Primary hypertension ([facility]) Unspecified essential hypertension Coronary artery disease involving [place] indians-eastern division coronary artery of chick[place] indians[place] division heart without angina pectoris ([facility]/HCC) Gastroesophageal reflux disease without esophagitis Esophageal reflux Shbgf-9-kseukdwnjqclrhdj deficiency Microscopic hematuria Current smoker Elevated alkaline phosphatase level Hx of colonoscopy with polypectomy Controlled type 2 diabetes mellitus without complication, without long-term current use of insulin ([facility]/HCC)- Primary UTI symptoms Acute cystitis without [...] without long-term current use of insulin ([facility]/HCC)- Primary Type 2 diabetes mellitus with diabetic chronic kidney disease (CMS/HCC) Chronic kidney disease, stage 2 (mild) Nagsp-6-lnxsrqospqr deficiency ([facility]/HCC) Ywkoy-2-rrzmjqkbfgn deficiency Mixed hyperlipidemia (CMS/HCC) Mixed hyperlipidemia Chronic obstructive pulmonary disease, unspecified COPD type (CMS/HCC) Gastroesophageal reflux disease without esophagitis Esophageal reflux Other specified hypothyroidism (CMS/HCC) Primary hypertension ([facility]/HCC) Unspecified essential hypertension Seasonal allergic rhinitis due to pollen Tobacco user Tobacco use disorder Coronary artery disease involving [place] indians[place] division coronary artery of [place] division heart without angina pectoris ([facility]) Abdominal aortic pulsation Acute bilateral low back pain without sciatica Acute bilateral low back pain without sciatica- Primary Cigarette nicotine dependence with nicotine-induced disorder Primary hypertension ([facility]/HCC) Unspecified essential hypertension Abdominal aortic pulsation Screening for lung cancer Tobacco user Tobacco use disorder UTI symptoms- Primary Tobacco user Tobacco use disorder Controlled type 2 diabetes mellitus without complication, without long-term current use of insulin ([facility]) Other specified hypothyroidism ([facility]) Gastroesophageal reflux disease without esophagitis Esophageal reflux Chronic obstructive pulmonary disease, unspecified COPD type ([facility]/HCC) documented in this encounter [facility] HealthcareEvaluation note* Diagnosis Controlled type 2 diabetes mellitus without complication, without long-term current use of insulin ([facility])- Primary Type 2 diabetes mellitus with diabetic chronic kidney disease (CMS/HCC) Chronic kidney disease, stage 3a (HCC) ([facility]) Chronic obstructive pulmonary disease, unspecified ([facility]/HCC) Fpbxt-3-gzzzshljvng deficiency ([facility]/HCC) Lrcxg-5-wkmdduqrovy deficiency Centrilobular emphysema (CMS/HCC) Primary hypertension ([facility]/HCC) Unspecified essential hypertension Coronary artery disease involving [place]ians[place] division coronary artery of [place] division heart without angina pectoris ([facility]/HCC) Gastroesophageal reflux disease without esophagitis Esophageal reflux Lithc-6-uhjcketeqynzpkth deficiency Microscopic hematuria Current smoker Elevated alkaline phosphatase level Hx of colonoscopy with polypectomy Controlled type 2 diabetes mellitus without complication, without long-term current use of insulin ([facility])- Primary UTI symptoms Acute cystitis without hematuria Vaginal bleeding Other specified noninflammatory disorder of vagina Vaginal discharge Leukorrhea, not specified as infective Mixed hyperlipidemia ([facility]) Mixed hyperlipidemia Chronic obstructive pulmonary disease, unspecified COPD type ([facility]) Gastroesophageal reflux disease without esophagitis Esophageal reflux Other specified hypothyroidism ([facility]) Primary hypertension ([facility]) Unspecified essential hypertension Seasonal allergic rhinitis due to pollen Controlled type 2 diabetes mellitus without complication, without long-term current use of insulin ([facility])- Primary Type 2 diabetes mellitus with diabetic chronic kidney disease ([facility]) Chronic kidney disease, stage 2 (mild) Sdpwc-1-lgqkwkhtver deficiency ([facility]) Vpwbe-8-wkzpqhmznqr deficiency Mixed hyperlipidemia ([facility]) Mixed hyperlipidemia Chronic obstructive pulmonary disease, unspecified COPD type ([facility]) Gastroesophageal reflux disease without esophagitis Esophageal reflux Other specified hypothyroidism ([facility]) Primary hypertension ([facility]) Unspecified essential hypertension Seasonal allergic rhinitis due to pollen Tobacco user Tobacco use disorder Coronary artery disease involving [place] indians[place] division coronary artery of [place] division heart without angina pectoris ([facility]) Abdominal aortic pulsation Acute bilateral low back pain without sciatica Acute bilateral low back pain without sciatica- Primary Cigarette nicotine dependence with nicotine-induced disorder Primary hypertension ([facility]) Unspecified essential hypertension Abdominal aortic pulsation Screening for lung cancer Tobacco user Tobacco use disorder UTI symptoms- Primary Tobacco user Tobacco use disorder Lower abdominal pain- Primary Abdominal pain, other specified site Type 2 diabetes mellitus with diabetic chronic kidney disease ([facility]) Chronic kidney disease, stage 3a (HCC) ([facility]) Rulqh-9-svjgrlktzyc deficiency ([facility]) Bpgjq-4-fdyvadbxoam deficiency Type 2 diabetes mellitus with diabetic polyneuropathy ([facility]) Chronic obstructive pulmonary disease, unspecified COPD type ([facility]) Coronary artery disease involving [place] indians[place] division coronary artery of [place] division heart without angina pectoris ([facility]) Primary hypertension ([facility]) Unspecified essential hypertension Gastroesophageal reflux disease without esophagitis Esophageal reflux Controlled type 2 diabetes mellitus without complication, without long-term current use of insulin ([facility]/HCC) Mixed hyperlipidemia ([facility]/HCC) Mixed hyperlipidemia Elevated alkaline phosphatase level Cigarette nicotine dependence with nicotine-induced disorder Vaginal bleeding Other specified noninflammatory disorder of vagina Seasonal allergic rhinitis due to pollen Colovaginal fistula Controlled type 2 diabetes mellitus without complication, without long-term current use of insulin ([facility])- Primary documented in this encounter [facility] HealthcareEvaluation note* Diagnosis Controlled type 2 diabetes mellitus without complication, without long-term current use of insulin- Primary Type 2 diabetes mellitus with diabetic chronic kidney disease ([facility]) Chronic kidney disease, stage 3a (HCC) ([facility]) Chronic obstructive pulmonary disease, unspecified Pdugs-8-qvuinmawctx deficiency ([facility]/HCC) Kiuxc-5-ewvugiunffh deficiency Centrilobular emphysema ([facility]) Primary hypertension ([facility]) Unspecified essential hypertension Coronary artery disease involving [place] indians-e[place] division coronary artery of [place] division heart without angina pectoris ([facility]) Gastroesophageal reflux disease without esophagitis Esophageal reflux Dztcu-0-eetplnlcxdocorol deficiency Microscopic hematuria Current smoker Elevated alkaline phosphatase level Hx of colonoscopy with polypectomy Controlled type 2 diabetes mellitus without complication, without long-term current use of insulin- Primary UTI symptoms Acute cystitis without hematuria Vaginal bleeding Other specified noninflammatory disorder of vagina Vaginal discharge Leukorrhea, not specified as infective Mixed hyperlipidemia ([facility]) Mixed hyperlipidemia Chronic obstructive pulmonary disease, unspecified COPD type ([facility]) Gastroesophageal reflux disease without esophagitis Esophageal reflux Other specified hypothyroidism Primary hypertension ([facility]) Unspecified essential hypertension Seasonal allergic rhinitis due to pollen Controlled type 2 diabetes mellitus without complication, without long-term current use of insulin- Primary Type 2 diabetes mellitus with diabetic chronic kidney disease ([facility]) Chronic kidney disease, stage 2 (mild) Amzdt-6-iyfjrfpcbnr deficiency ([facility]/HCC) Mlvql-9-owlrkncacqr deficiency Mixed hyperlipidemia ([facility]) Mixed hyperlipidemia Chronic obstructive pulmonary disease, unspecified COPD type ([facility]) Gastroesophageal reflux disease without esophagitis Esophageal reflux Other specified hypothyroidism Primary hypertension ([facility]) Unspecified essential hypertension Seasonal allergic rhinitis due to pollen Tobacco user Tobacco use disorder Coronary artery disease involving [place] division coronary artery of [place] heart without angina pectoris ([facility]) Abdominal aortic pulsation Acute bilateral low back pain without sciatica Acute bilateral low back pain without sciatica- Primary Cigarette nicotine dependence with nicotine-induced disorder Primary hypertension ([facility]/HCC) Unspecified essential hypertension Abdominal aortic pulsation Screening for lung cancer Tobacco user Tobacco use disorder UTI symptoms- Primary Tobacco user Tobacco use disorder Lower abdominal pain- Primary Abdominal pain, other specified site Type 2 diabetes mellitus with diabetic chronic kidney disease ([facility]/HCC) Chronic kidney disease, stage 3a (HCC) ([facility]/HCC) Ojszh-7-xkryoejzhyl deficiency ([facility]/HCC) Jgwvo-8-tghloqkfphc deficiency Type 2 diabetes mellitus with diabetic polyneuropathy ([facility]) Chronic obstructive pulmonary disease, unspecified COPD type ([facility]/HCC) Coronary artery disease involving [place] coronary artery of [place] heart without angina pectoris ([facility]/HCC) Primary hypertension ([facility]/HCC) Unspecified essential hypertension Gastroesophageal reflux disease without esophagitis Esophageal reflux Controlled type 2 diabetes mellitus without complication, without long-term current use of insulin Mixed hyperlipidemia ([facility]) Mixed hyperlipidemia Elevated alkaline phosphatase level Cigarette nicotine dependence with nicotine-induced disorder Vaginal bleeding Other specified noninflammatory disorder of vagina Seasonal allergic rhinitis due to pollen Colovaginal fistula Primary hypertension ([facility]) Unspecified essential hypertension documented in this encounter [facility] HealthcareEvaluation note* Diagnosis Controlled type 2 diabetes mellitus without complication, without long-term current use of insulin- Primary Type 2 diabetes mellitus with diabetic chronic kidney disease ([facility]/HCC) Chronic kidney disease, stage 3a (HCC) ([facility]) Chronic obstructive pulmonary disease, unspecified Ucnal-4-oqxqtszgfzt deficiency ([facility]/HCC) Qbtdk-9-ldgnhswoges deficiency Centrilobular emphysema ([facility]) Primary hypertension ([facility] Unspecified essential hypertension Coronary artery disease involving [place] coronary artery of [place] heart without angina pectoris ([facility]) Gastroesophageal reflux disease without esophagitis Esophageal reflux Pzlxp-6-xnlenzpnosjsydnk deficiency Microscopic hematuria Current smoker Elevated alkaline phosphatase level Hx of colonoscopy with polypectomy Controlled type 2 diabetes mellitus without complication, without long-term current use of insulin- Primary UTI symptoms Acute cystitis without hematuria Vaginal bleeding Other specified noninflammatory disorder of vagina Vaginal discharge Leukorrhea, not specified as infective Mixed hyperlipidemia ([facility]/HCC) Mixed hyperlipidemia Chronic obstructive pulmonary disease, unspecified COPD type ([facility]/HCC) Gastroesophageal reflux disease without esophagitis Esophageal reflux Other specified hypothyroidism Primary hypertension ([facility]) Unspecified essential hypertension Seasonal allergic rhinitis due to pollen Controlled type 2 diabetes mellitus without complication, without long-term current use of insulin- Primary Type 2 diabetes mellitus with diabetic chronic kidney disease (CMS/HCC) Chronic kidney disease, stage 2 (mild) Shmtd-5-shvtksnlfqu deficiency ([facility]/HCC) Epcyq-4-tqhhecvkzaa deficiency Mixed hyperlipidemia ([facility]/HCC) Mixed hyperlipidemia Chronic obstructive pulmonary disease, unspecified COPD type (CMS/HCC) Gastroesophageal reflux disease without esophagitis Esophageal reflux Other specified hypothyroidism Primary hypertension ([facility]/HCC) Unspecified essential hypertension Seasonal allergic rhinitis due to pollen Tobacco user Tobacco use disorder Coronary artery disease involving [place] coronary artery of [place] heart without angina pectoris (CMS/HCC) Abdominal aortic pulsation Acute bilateral low back pain without sciatica Acute bilateral low back pain without sciatica- Primary Cigarette nicotine dependence with nicotine-induced disorder Primary hypertension ([facility]/HCC) Unspecified essential hypertension Abdominal aortic pulsation Screening for lung cancer Tobacco user Tobacco use disorder UTI symptoms- Primary Tobacco user Tobacco use disorder Lower abdominal pain- Primary Abdominal pain, other specified site Type 2 diabetes mellitus with diabetic chronic kidney disease ([facility]/HCC) Chronic kidney disease, stage 3a (HCC) ([facility]/HCC) Prtry-3-kvtsxsvuaez deficiency ([facility]/HCC) Phmtz-2-esyioxtaeox deficiency Type 2 diabetes mellitus with diabetic polyneuropathy ([facility]/HCC) Chronic obstructive pulmonary disease, unspecified COPD type ([facility]/HCC) Coronary artery disease involving [place] coronary artery of [place] heart without angina pectoris ([facility]/HCC) Primary hypertension ([facility]/HCC) Unspecified essential hypertension Gastroesophageal reflux disease without esophagitis Esophageal reflux Controlled type 2 diabetes mellitus without complication, without long-term current use of insulin Mixed hyperlipidemia ([facility]/HCC) Mixed hyperlipidemia Elevated alkaline phosphatase level Cigarette nicotine dependence with nicotine-induced disorder Vaginal bleeding Other specified noninflammatory disorder of vagina Seasonal allergic rhinitis due to pollen Colovaginal fistula Colovaginal fistula- Primary Cigarette nicotine dependence with nicotine-induced disorder Type 2 diabetes mellitus with diabetic polyneuropathy, without long-term current use of insulin ([facility]/HCC) Primary hypertension ([facility]/HCC) Unspecified essential hypertension Chronic kidney disease, stage 3a (HCC) ([facility]/HCC) Type 2 diabetes mellitus with chronic kidney disease, without long-term current use of insulin, unspecified CKD stage ([facility]/HCC) Gastroesophageal reflux disease without esophagitis Esophageal reflux Mixed hyperlipidemia ([facility]/HCC) Mixed hyperlipidemia Chronic obstructive pulmonary disease, unspecified COPD type (CMS/HCC) Other specified hypothyroidism Seasonal allergic rhinitis due to pollen documented in this encounter [facility] HealthcareEvaluation note* Diagnosis Controlled type 2 diabetes mellitus without complication, without long-term current use of insulin- Primary Type 2 diabetes mellitus with diabetic chronic kidney disease (CMS/HCC) Chronic kidney disease, stage 3a (HCC) (CMS/HCC) Chronic obstructive pulmonary disease, unspecified Wrkmd-6-ocztawbqwub deficiency (CMS/HCC) Awuwz-3-pqqhbxlrljq deficiency Centrilobular emphysema (CMS/HCC) Primary hypertension (CMS/HCC) Unspecified essential hypertension Coronary artery disease involving [place] coronary artery of [place] heart without angina pectoris (CMS/HCC) Gastroesophageal reflux disease without esophagitis Esophageal reflux Psoqa-3-njdxsmhkvciapnel deficiency Microscopic hematuria Current smoker Elevated alkaline [...] reflux Other specified hypothyroidism Primary hypertension ([facility]/HCC) Unspecified essential hypertension Seasonal allergic rhinitis due to pollen Controlled type 2 diabetes mellitus without complication, without long-term current use of insulin- Primary Type 2 diabetes mellitus with diabetic chronic kidney disease ([facility]/HCC) Chronic kidney disease, stage 2 (mild) Nmogk-5-uwtyvmixnga deficiency ([facility]/HCC) Uixcn-9-dpycbgqwoys deficiency Mixed hyperlipidemia ([facility]/HCC) Mixed hyperlipidemia Chronic obstructive pulmonary disease, unspecified COPD type (CMS/HCC) Gastroesophageal reflux disease without esophagitis Esophageal reflux Other specified hypothyroidism Primary hypertension ([facility]/HCC) Unspecified essential hypertension Seasonal allergic rhinitis due to pollen Tobacco user Tobacco use disorder Coronary artery disease involving [place] division coronary artery of [place] heart without angina pectoris (CMS/HCC) Abdominal aortic [...] Chronic kidney disease, stage 3a (HCC) (CMS/HCC) Dxwya-9-fbeutgnmqfa deficiency (CMS/HCC) Drogt-0-eojwacuwxmc deficiency Type 2 diabetes mellitus with diabetic polyneuropathy (CMS/HCC) Chronic obstructive pulmonary disease, unspecified COPD type (CMS/HCC) Coronary artery disease involving [place] division coronary artery of [place] heart without angina pectoris (CMS/HCC) Primary hypertension ([facility]/HCC) Unspecified essential hypertension Gastroesophageal reflux disease [...] Chronic kidney disease, stage 3a (HCC) ([facility]/HCC) Type 2 diabetes mellitus with chronic kidney [...] associated with type 2 diabetes mellitus ([facility]/HCC) documented in this encounter [facility] HealthcareEvaluation note* Diagnosis Controlled type 2 diabetes mellitus without complication, without long-term current use of insulin- Primary Type 2 diabetes mellitus with diabetic chronic kidney disease (CMS/HCC) Chronic kidney disease, stage 3a (HCC) ([facility]/HCC) Chronic obstructive pulmonary disease, unspecified Kwura-7-jlatyokzfed deficiency ([facility]/HCC) Xattu-1-iaibbvjclvg deficiency Centrilobular emphysema (CMS/HCC) Primary hypertension ([facility]/HCC) Unspecified essential hypertension Coronary artery disease involving [place] coronary artery of [place] heart without angina pectoris (CMS/HCC) Gastroesophageal reflux disease without esophagitis Esophageal reflux Wzcjh-1-pxhshvumycgggevy deficiency Microscopic hematuria Current smoker Elevated alkaline phosphatase level Hx of colonoscopy with polypectomy Controlled type 2 diabetes mellitus without complication, without long-term current use of insulin- Primary UTI symptoms Acute cystitis without hematuria Vaginal bleeding Other specified noninflammatory disorder of vagina Vaginal discharge Leukorrhea, not specified as infective Mixed hyperlipidemia ([facility]/HCC) Mixed hyperlipidemia Chronic obstructive pulmonary disease, unspecified COPD type ([facility]) Gastroesophageal reflux disease without esophagitis Esophageal reflux Other specified hypothyroidism Primary hypertension ([facility]) Unspecified essential hypertension Seasonal allergic rhinitis due to pollen Controlled type 2 diabetes mellitus without complication, without long-term current use of insulin- Primary Type 2 diabetes mellitus with diabetic chronic kidney disease ([facility]) Chronic kidney disease, stage 2 (mild) Xhesd-8-raclvjvotdw deficiency ([facility]) Uysyr-1-cnjlovipmrx deficiency Mixed hyperlipidemia ([facility]) Mixed hyperlipidemia Chronic obstructive pulmonary disease, unspecified COPD type ([facility]) Gastroesophageal reflux disease without esophagitis Esophageal reflux Other specified hypothyroidism Primary hypertension ([facility]) Unspecified essential hypertension Seasonal allergic rhinitis due to pollen Tobacco user Tobacco use disorder Coronary artery disease involving [place] coronary artery of [place] heart without angina pectoris ([facility]) Abdominal aortic pulsation Acute bilateral low back pain without sciatica Acute bilateral low back pain without sciatica- Primary Cigarette nicotine dependence with nicotine-induced disorder Primary hypertension ([facility]) Unspecified essential hypertension Abdominal aortic pulsation Screening for lung cancer Tobacco user Tobacco use disorder UTI symptoms- Primary Tobacco user Tobacco use disorder Lower abdominal pain- Primary Abdominal pain, other specified site Type 2 diabetes mellitus with diabetic chronic kidney disease ([facility]) Chronic kidney disease, stage 3a (HCC) ([facility]) Lcggb-7-zvcmbnkoqar deficiency ([facility]) Sdgmr-0-yqygkwxdqlw deficiency Type 2 diabetes mellitus with diabetic polyneuropathy ([facility]) Chronic obstructive pulmonary disease, unspecified COPD type ([facility]) Coronary artery disease involving [place] division coronary artery of [place] heart without angina pectoris ([facility]) Primary hypertension ([facility]) Unspecified essential hypertension Gastroesophageal reflux disease without esophagitis Esophageal reflux Controlled type 2 diabetes mellitus without complication, without long-term current use of insulin Mixed hyperlipidemia ([facility]) Mixed hyperlipidemia Elevated alkaline phosphatase [...] type (CMS/HCC)- Primary documented in this encounter [facility] HealthcareEvaluation note* Diagnosis Controlled type 2 diabetes mellitus without complication, without long-term current use of insulin (HCC)- Primary Type 2 diabetes mellitus with diabetic chronic kidney disease (HCC) Chronic kidney disease, stage 3a (CMS-HCC) Chronic obstructive pulmonary disease, unspecified (HCC) Swrgy-1-beylxlbqekn deficiency (HCC) Yehtb-3-kpmbmrwrxnr deficiency Centrilobular emphysema (HCC) Primary hypertension Unspecified essential hypertension Coronary artery disease involving [place] coronary artery of [place] heart without angina pectoris Gastroesophageal reflux disease without esophagitis Esophageal reflux Mdunv-8-epqwbppcqbrxnjam deficiency Microscopic hematuria Current smoker Elevated alkaline [...] (HCC) Chronic kidney disease, stage 2 (mild) Bwfkt-0-psdbiuypzxg deficiency (HCC) Numxs-3-fluavcymujd deficiency Mixed hyperlipidemia Mixed hyperlipidemia Chronic obstructive pulmonary disease, unspecified COPD type (HCC) Gastroesophageal reflux disease without esophagitis Esophageal reflux Other specified hypothyroidism Primary hypertension Unspecified essential hypertension Seasonal allergic rhinitis due to pollen Tobacco user Tobacco use disorder Coronary artery disease involving [place] coronary artery of [place] heart without angina pectoris Abdominal aortic pulsation [...] (HCC) Chronic kidney disease, stage 3a (CMS-HCC) Hsyhb-9-qjsnxayyffa deficiency (HCC) Nnbaf-4-hufuvaonhki deficiency Type 2 diabetes mellitus with diabetic polyneuropathy (HCC) Chronic obstructive pulmonary disease, unspecified COPD type (HCC) Coronary artery disease involving [place] division coronary artery of [place] heart without angina pectoris Primary hypertension Unspecified [...] Unspecified essential hypertension documented in this encounter [facility] HealthcareEvaluation note* Diagnosis Controlled type 2 diabetes mellitus without complication, without long-term current use of insulin (HCC)- Primary Type 2 diabetes mellitus with diabetic chronic kidney disease (HCC) Chronic kidney disease, stage 3a (CMS-HCC) Chronic obstructive pulmonary disease, unspecified (HCC) Skpdi-6-cdtwkswcooi deficiency (HCC) Exgks-9-evavhdgrvci deficiency Centrilobular emphysema (HCC) Primary hypertension Unspecified essential hypertension Coronary artery disease involving [place] coronary artery of [place] heart without angina pectoris Gastroesophageal reflux disease without esophagitis Esophageal reflux Gixws-9-waymltdejmmqbhua deficiency Microscopic hematuria Current smoker Elevated alkaline [...] (HCC) Chronic kidney disease, stage 2 (mild) Dpdfn-5-olklqshweiw deficiency (HCC) Crfmn-0-noqxfxeitqt deficiency Mixed hyperlipidemia Mixed hyperlipidemia Chronic obstructive pulmonary disease, unspecified COPD type (HCC) Gastroesophageal reflux disease without esophagitis Esophageal reflux Other specified hypothyroidism Primary hypertension Unspecified essential hypertension Seasonal allergic rhinitis due to pollen Tobacco user Tobacco use disorder Coronary artery disease involving [place] coronary artery of [place] heart without angina pectoris Abdominal aortic pulsation [...] (HCC) Chronic kidney disease, stage 3a (CMS-HCC) Iejeh-6-zknpkhjrtwd deficiency (HCC) Jkrcq-8-nbsnwztiufp deficiency Type 2 diabetes mellitus with diabetic polyneuropathy (HCC) Chronic obstructive pulmonary disease, unspecified COPD type (HCC) Coronary artery disease involving [place] coronary artery of [place] heart without angina pectoris Primary hypertension Unspecified [...] Unspecified essential hypertension Coronary artery disease involving [place] coronary artery of [place] heart without angina pectoris Vaginal bleeding Other specified noninflammatory disorder of vagina Chronic kidney disease, stage 3a ([facility]-HCC) Medical non-compliance Breast cancer screening by mammogram Cigarette nicotine dependence with nicotine-induced disorder Other specified hypothyroidism documented in this encounter [facility] HealthcareEvaluation note* Diagnosis Controlled type 2 diabetes mellitus without complication, without long-term current use of insulin (HCC)- Primary Type 2 diabetes mellitus with diabetic chronic kidney disease (HCC) Chronic kidney disease, stage 3a (CMS-HCC) Chronic obstructive pulmonary disease, unspecified (HCC) Malpu-2-nidnoicwmsc deficiency (HCC) Peesh-0-phyijbdtqoa deficiency Centrilobular emphysema (HCC) Primary hypertension Unspecified essential hypertension Coronary artery disease involving [place] division coronary artery of [place] heart without angina pectoris Gastroesophageal reflux disease without esophagitis Esophageal reflux Ycacg-4-uawuqxqpdwydnmgx deficiency Microscopic hematuria Current smoker Elevated alkaline [...] (HCC) Chronic kidney disease, stage 2 (mild) Uzvzk-0-oasokuyarfc deficiency (HCC) Cmvpk-5-blgcrdapgzg deficiency Mixed hyperlipidemia Mixed hyperlipidemia Chronic obstructive pulmonary disease, unspecified COPD type (HCC) Gastroesophageal reflux disease without esophagitis Esophageal reflux Other specified hypothyroidism Primary hypertension Unspecified essential hypertension Seasonal allergic rhinitis due to pollen Tobacco user Tobacco use disorder Coronary artery disease involving [place] division coronary artery of [place] heart without angina pectoris Abdominal aortic pulsation [...] (HCC) Chronic kidney disease, stage 3a (CMS-HCC) Agofa-6-eklxzntywjr deficiency (HCC) Mhllq-2-mxsmrgeiooy deficiency Type 2 diabetes mellitus with diabetic polyneuropathy (HCC) Chronic obstructive pulmonary disease, unspecified COPD type (HCC) Coronary artery disease involving [place] coronary artery of [place] heart without angina pectoris Primary hypertension Unspecified [...] Unspecified essential hypertension Coronary artery disease involving [place] division coronary artery of [place] heart without angina pectoris Vaginal bleeding Other [...] deficiency Hypokalemia Hypopotassemia documented in this encounter [facility] HealthcareEvaluation note* Diagnosis Controlled type 2 diabetes mellitus without complication, without long-term current use of insulin (HCC)- Primary Type 2 diabetes mellitus with diabetic chronic kidney disease (HCC) Chronic kidney disease, stage 3a (CMS-HCC) Chronic obstructive pulmonary disease, unspecified (HCC) Fnznz-3-txoqhfwwsuf deficiency (HCC) Xsybd-8-tvcqncngwrk deficiency Centrilobular emphysema (HCC) Primary hypertension Unspecified essential hypertension Coronary artery disease involving [place] coronary artery of [place] heart without angina pectoris Gastroesophageal reflux disease without esophagitis Esophageal reflux Fglqk-6-mhzlejmlueypshdp deficiency Microscopic hematuria Current smoker Elevated alkaline [...] (HCC) Chronic kidney disease, stage 2 (mild) Gfycm-5-pqgainsmxac deficiency (HCC) Qvejn-9-ddlstbjqikb deficiency Mixed hyperlipidemia Mixed hyperlipidemia Chronic obstructive pulmonary disease, unspecified COPD type (HCC) Gastroesophageal reflux disease without esophagitis Esophageal reflux Other specified hypothyroidism Primary hypertension Unspecified essential hypertension Seasonal allergic rhinitis due to pollen Tobacco user Tobacco use disorder Coronary artery disease involving [place] coronary artery of [place] heart without angina pectoris Abdominal aortic pulsation [...] (HCC) Chronic kidney disease, stage 3a (CMS-HCC) Xgvmr-9-pbxsyxeaicp deficiency (HCC) Hhams-6-tzgjevkegbt deficiency Type 2 diabetes mellitus with diabetic polyneuropathy (HCC) Chronic obstructive pulmonary disease, unspecified COPD type (HCC) Coronary artery disease involving [place] coronary artery of [place] heart without angina pectoris Primary hypertension Unspecified [...] Unspecified essential hypertension Coronary artery disease involving [place] coronary artery of [place] heart without angina pectoris Vaginal bleeding Other specified noninflammatory disorder of vagina Chronic kidney disease, stage 3a (CMS-HCC) Medical non-compliance Breast cancer screening by mammogram Cigarette nicotine dependence with nicotine-induced disorder Other specified hypothyroidism Microscopic hematuria- Primary Colovaginal fistula Elevated alkaline phosphatase level documented in this encounter [facility] HealthcareEvaluation note* Diagnosis Controlled type 2 diabetes mellitus without complication, without long-term current use of insulin (HCC)- Primary Type 2 diabetes mellitus with diabetic chronic kidney disease (HCC) Chronic kidney disease, stage 3a (CMS-HCC) Chronic obstructive pulmonary disease, unspecified (HCC) Rafyz-9-ykhqzicdjua deficiency (HCC) Xdhif-0-kmkmrauzwkk deficiency Centrilobular emphysema (HCC) Primary hypertension Unspecified essential hypertension Coronary artery disease involving [place] division coronary artery of [place] heart without angina pectoris Gastroesophageal reflux disease without esophagitis Esophageal reflux Rzioe-5-sfigzhgeggcggpvi deficiency Microscopic hematuria Current smoker Elevated alkaline [...] (HCC) Chronic kidney disease, stage 2 (mild) Idrkg-5-xoxcwrjqxlg deficiency (HCC) Yufxd-2-suacqmkenub deficiency Mixed hyperlipidemia Mixed hyperlipidemia Chronic obstructive pulmonary disease, unspecified COPD type (HCC) Gastroesophageal reflux disease without esophagitis Esophageal reflux Other specified hypothyroidism Primary hypertension Unspecified essential hypertension Seasonal allergic rhinitis due to pollen Tobacco user Tobacco use disorder Coronary artery disease involving chickahominy indians-eastern division coronary artery of chickahominy indians-eastern division heart without angina pectoris Abdominal aortic pulsation [...] (HCC) Chronic kidney disease, stage 3a (CMS-HCC) Pjibj-8-lytchpfiuba deficiency (HCC) Fejjw-6-jkqpbzezddr deficiency Type 2 diabetes mellitus with diabetic polyneuropathy (HCC) Chronic obstructive pulmonary disease, unspecified COPD type (HCC) Coronary artery disease involving chickahominy indians-eastern division coronary artery of chickahominy indians-eastern division heart without angina pectoris Primary hypertension Unspecified [...] Unspecified essential hypertension Coronary artery disease involving chickahominy indians-eastern division coronary artery of chickahominy indians-eastern division heart without angina pectoris Vaginal bleeding Other specified noninflammatory disorder of vagina Chronic kidney disease, stage 3a (CMS-HCC) Medical non-compliance Breast cancer screening by mammogram Cigarette nicotine dependence with nicotine-induced disorder Other specified hypothyroidism Gastroesophageal reflux disease without esophagitis- Primary Esophageal reflux documented in this encounter [facility]* Diagnosis Controlled type 2 diabetes mellitus without complication, without long-term current use of insulin (HCC)- Primary Type 2 diabetes mellitus with diabetic chronic kidney disease (HCC) Chronic kidney disease, stage 3a (CMS-HCC) Chronic obstructive pulmonary disease, unspecified (HCC) Qrlfd-3-outptkumevx deficiency (HCC) Lksls-5-mpzhbhyelxv deficiency Centrilobular emphysema (HCC) Primary hypertension Unspecified essential hypertension Coronary artery disease involving chickahominy indians-eastern division coronary artery of chickahominy indians-eastern division heart without angina pectoris Gastroesophageal reflux disease without esophagitis Esophageal reflux Tjqpx-3-rcxxrrryjppqiqez deficiency Microscopic hematuria Current smoker Elevated alkaline [...] (HCC) Chronic kidney disease, stage 2 (mild) Iywmk-6-oahiairwmwy deficiency (HCC) Yyfez-9-hegzvuyervk deficiency Mixed hyperlipidemia Mixed hyperlipidemia Chronic obstructive pulmonary disease, unspecified COPD type (HCC) Gastroesophageal reflux disease without esophagitis Esophageal reflux Other specified hypothyroidism Primary hypertension Unspecified essential hypertension Seasonal allergic rhinitis due to pollen Tobacco user Tobacco use disorder Coronary artery disease involving chickahominy indians-eastern division coronary artery of chickahominy indians-eastern division heart without angina pectoris Abdominal aortic pulsation [...] (HCC) Chronic kidney disease, stage 3a (CMS-HCC) Ltdga-8-bebybnjzccw deficiency (HCC) Rjfge-8-fgyadjlwmtt deficiency Type 2 diabetes mellitus with diabetic polyneuropathy (HCC) Chronic obstructive pulmonary disease, unspecified COPD type (HCC) Coronary artery disease involving chickahominy indians-eastern division coronary artery of chickahominy indians-eastern division heart without angina pectoris Primary hypertension Unspecified [...] Unspecified essential hypertension Coronary artery disease involving chickahominy indians-eastern division coronary artery of chickahominy indians-eastern division heart without angina pectoris Vaginal bleeding Other specified noninflammatory disorder of vagina Chronic kidney disease, stage 3a (CMS-HCC) Medical non-compliance Breast cancer screening by mammogram Cigarette nicotine dependence with nicotine-induced disorder Other specified hypothyroidism Gastroesophageal reflux disease without esophagitis- Primary Esophageal reflux Nausea and vomiting, unspecified vomiting type documented in this encounter [facility]Evaluation [facility]* Diagnosis Controlled type 2 diabetes mellitus without complication, without long-term current use of insulin (HCC)- Primary Type 2 diabetes mellitus with diabetic chronic kidney disease (HCC) Chronic kidney disease, stage 3a ([facility]-HCC) Chronic obstructive pulmonary disease, unspecified (HCC) Uiqsp-4-fwabyzfwupg deficiency (HCC) Tzmum-0-bhkbezgkmpu deficiency Centrilobular emphysema (HCC) Primary hypertension Unspecified essential hypertension Coronary artery disease involving chickahominy indians-eastern division coronary artery of chickahominy indians-eastern division heart without angina pectoris Gastroesophageal reflux disease without esophagitis Esophageal reflux Nktgt-0-tieulimpsmukjyhb deficiency Microscopic hematuria Current smoker Elevated alkaline [...] (HCC) Chronic kidney disease, stage 2 (mild) Xbiwb-0-rxeggidglfx deficiency (HCC) Xbehb-7-aztndouwmzg deficiency Mixed hyperlipidemia Mixed hyperlipidemia Chronic obstructive pulmonary disease, unspecified COPD type (HCC) Gastroesophageal reflux disease without esophagitis Esophageal reflux Other specified hypothyroidism Primary hypertension Unspecified essential hypertension Seasonal allergic rhinitis due to pollen Tobacco user Tobacco use disorder Coronary artery disease involving chickahominy indians-eastern division coronary artery of chickahominy indians-eastern division heart without angina pectoris Abdominal aortic pulsation [...] (HCC) Chronic kidney disease, stage 3a (CMS-HCC) Tvihz-8-rseochsxmgv deficiency (HCC) Rqssq-2-gikwxgymvia deficiency Type 2 diabetes mellitus with diabetic polyneuropathy (HCC) Chronic obstructive pulmonary disease, unspecified COPD type (HCC) Coronary artery disease involving chickahominy indians-eastern division coronary artery of chickahominy indians-eastern division heart without angina pectoris Primary hypertension Unspecified [...] Unspecified essential hypertension Coronary artery disease involving chickahominy indians-eastern division coronary artery of chickahominy indians-eastern division heart without angina pectoris Vaginal bleeding Other specified noninflammatory disorder of vagina Chronic kidney disease, stage 3a (CMS-HCC) Medical non-compliance Breast cancer screening by mammogram Cigarette nicotine dependence with nicotine-induced disorder Other specified hypothyroidism Chronic obstructive pulmonary disease, unspecified COPD type (HCC)- Primary Hypoxia Hypoxemia documented in this encounter [facility] HealthcareEvaluation note* Diagnosis Onset Date Resolution Status Admit Date Diarrhea acuteAugust 2024 10:09am [facility] Work Phone: Evaluation note* Diagnosis Controlled type 2 diabetes mellitus without complication, without long-term current use of insulin (HCC)- Primary Type 2 diabetes mellitus with diabetic chronic kidney disease (HCC) Chronic kidney disease, stage 3a (CMS-HCC) Chronic obstructive pulmonary disease, unspecified (HCC) Cwawp-6-slunulischt deficiency (HCC) Ebibf-6-nlavtpsbqmi deficiency Centrilobular emphysema (HCC) Primary hypertension Unspecified essential hypertension Coronary artery disease involving chickahominy indians-eastern division coronary artery of chickahominy indians-eastern division heart without angina pectoris Gastroesophageal reflux disease without esophagitis Esophageal reflux Ridja-8-tanmrskxeilifcxl deficiency Microscopic hematuria Current smoker Elevated alkaline [...] (HCC) Chronic kidney disease, stage 2 (mild) Lqfay-1-hnztdhmbxxb deficiency (HCC) Lrxvt-8-qamcjkltzxx deficiency Mixed hyperlipidemia Mixed hyperlipidemia Chronic obstructive pulmonary disease, unspecified COPD type (HCC) Gastroesophageal reflux disease without esophagitis Esophageal reflux Other specified hypothyroidism Primary hypertension Unspecified essential hypertension Seasonal allergic rhinitis due to pollen Tobacco user Tobacco use disorder Coronary artery disease involving chickahominy indians-eastern division coronary artery of chickahominy indians-eastern division heart without angina pectoris Abdominal aortic pulsation [...] (HCC) Chronic kidney disease, stage 3a (CMS-HCC) Huoep-3-jsmyuzftcyp deficiency (HCC) Frtpw-5-gfndlpcduks deficiency Type 2 diabetes mellitus with diabetic polyneuropathy (HCC) Chronic obstructive pulmonary disease, unspecified COPD type (HCC) Coronary artery disease involving chickahominy indians-eastern division coronary artery of chickahominy indians-eastern division heart without angina pectoris Primary hypertension Unspecified [...] Unspecified essential hypertension Coronary artery disease involving chickahominy indians-eastern division coronary artery of chickahominy indians-eastern division heart without angina pectoris Vaginal bleeding Other specified noninflammatory disorder of vagina Chronic kidney disease, stage 3a (CMS-HCC) Medical non-compliance Breast cancer screening by mammogram Cigarette nicotine dependence with nicotine-induced disorder Other specified hypothyroidism Colovaginal fistula- Primary Generalized abdominal pain Abdominal pain, generalized Family history of Crohn's disease Family history of other digestive disorders documented in this encounter [facility] HealthcareEvaluation note* Diagnosis Controlled type 2 diabetes mellitus without complication, without long-term current use of insulin (HCC)- Primary Type 2 diabetes mellitus with diabetic chronic kidney disease (HCC) Chronic kidney disease, stage 3a (CMS-HCC) Chronic obstructive pulmonary disease, unspecified (HCC) Wqtjs-9-uhcmpnjgqfo deficiency (HCC) Djqrd-3-qvhnnmnbgfg deficiency Centrilobular emphysema (HCC) Primary hypertension Unspecified essential hypertension Coronary artery disease involving chickahominy indians-eastern division coronary artery of chickahominy indians-eastern division heart without angina pectoris Gastroesophageal reflux disease without esophagitis Esophageal reflux Sfjxo-8-zvjredrjdsrvptrk deficiency Microscopic hematuria Current smoker Elevated alkaline [...] complication, without long-term current use of insulin ([facility])- Primary Type 2 diabetes mellitus with diabetic chronic kidney disease (HCC) Chronic kidney disease, stage 2 (mild) Mnpfl-5-gjwawjyxohu deficiency (HCC) Ihbft-0-ddegzteodoh deficiency Mixed hyperlipidemia Mixed hyperlipidemia Chronic obstructive pulmonary disease, unspecified COPD type (HCC) Gastroesophageal reflux disease without esophagitis Esophageal reflux Other specified hypothyroidism Primary hypertension Unspecified essential hypertension Seasonal allergic rhinitis due to pollen Tobacco user Tobacco use disorder Coronary artery disease involving chickahominy indians-eastern division coronary artery of chickahominy indians-eastern division heart without angina pectoris Abdominal aortic pulsation [...] (HCC) Chronic kidney disease, stage 3a (CMS-HCC) Qqopb-2-prtmnypgcto deficiency (HCC) Jaoox-9-rubnicfcxft deficiency Type 2 diabetes mellitus with diabetic polyneuropathy (HCC) Chronic obstructive pulmonary disease, unspecified COPD type (HCC) Coronary artery disease involving chickahominy indians-eastern division coronary artery of chickahominy indians-eastern division heart without angina pectoris Primary hypertension Unspecified [...] Unspecified essential hypertension Coronary artery disease involving chickahominy indians-eastern division coronary artery of chickahominy indians-eastern division heart without angina pectoris Vaginal bleeding Other specified noninflammatory disorder of vagina Chronic kidney disease, stage 3a (CMS-HCC) Medical non-compliance Breast cancer screening by mammogram Cigarette nicotine dependence with nicotine-induced disorder Other specified hypothyroidism LIA (acute kidney injury)- Primary Cigarette nicotine dependence with nicotine-induced disorder Generalized abdominal pain Abdominal pain, generalized Hypoxia Hypoxemia Primary hypertension Unspecified essential hypertension Nausea and vomiting, unspecified vomiting type Gastroesophageal reflux disease without esophagitis Esophageal reflux Type 2 diabetes mellitus with chronic kidney disease, without long-term current use of insulin, unspecified CKD stage (HCC) Hypokalemia Hypopotassemia [facility] No data available for this section [facility] Discharge instructionsAmbulatory Orders* AMB POC Hgb A1C Time Frame: 07/11/25, Location: Determined By Patient [facility] Work Phone: InstructionsNot on filedocumented in this encounter [facility] No data available for this section [facility] Reason for referral (narrative)No reason for referral information availableFostoria City Hospital Work Phone: Summary Purpose Family History Unknown Family Member Name Dates Details FH: diabetes mellitus: Mikele r, Father(V18.0, Z83.3) Status:ActiveFamily history of malignant neoplasm: Mother, Father(V16.9, Z80.9) Status:ActiveHeart problem: Mother, Father Status:Active Unknown Family Member Name Dates Details FH: diabetes mellitus: Mikele r, Father(V18.0, Z83.3) Status:ActiveFamily history of malignant neoplasm: Mother, Father(V16.9, Z80.9) Status:ActiveHeart problem: Mother, Father Status:Active Unknown Family Member Name Dates Details FH: diabetes mellitus: Mikele r, Father(V18.0, Z83.3) Status:ActiveFamily history of malignant neoplasm: Mother, Father(V16.9, Z80.9) Status:ActiveHeart problem: Mother, Father Status:Active Unknown Family Member Name Dates Details FH: diabetes mellitus: Mikele r, Father(V18.0, Z83.3) Status:ActiveFamily history of malignant neoplasm: Mother, Father(V16.9, Z80.9) Status:ActiveHeart problem: Mother, Father Status:Active Relationship Condition Age at Onset Recorded Date/T rylee mother Myocardial infarction Unknown Diabetes mellitusUnknownfatherDiabetes mellitusUnknownMalignant neoplasm of urinary bladderUnknown Advance Directives Advance Directive Response Recorded Date/ Time Advance Directives No March 19 8:56pm Advance Directive Response Recorded Date/ Time Advance Directives No March 19 7:56pm Chief Complaint * FAUSTO CORRIGAN is being seen for a 6 month follow-up of. * Patient is a 61-year-old female who returns for follow-up. She had inferior ST elevation RI with primary revascularization of the RCA in [...] She has a history of previous inferior RI in February 2021 (late presenting RI) with PCI of the RCA at that [...] cessation strongly, discontinue clopidogrel Reason for Referral SpecialtyDiagnoses / ProceduresReferred By ContactReferred To Contact Diagnoses Chronic obstructive pulmonary disease, unspecified COPD type ([facility]) Veronique Harris, ANNA [address] [place] [address] Referral IDStatusReasonStart DateExpiration DateVisits RequestedVisits [id number] Chief Complaint and Reason for Visit Chief Complaint Admit Date Follow up TBH/In Pt/Consult May 18, 2025 10:09am Reason for Visit Admit Date Diarrhea May 18, 2025 10 :09am Chief Complaint Admit Date Follow up TBH/In Pt/Consult May 18, 2025 10:09am 1M July 11, 2025 9 :34am Reason for Visit Admit Date Abnormal CT of the abdomen May 18, 2025 10:09am Diarrhea May 18, 2025 10 :09am Nausea & vomiting May 18, 2025 10 :09am Recto-vaginal fistula May 18, 2025 10:09am Xwmmw-2-fakdcbffuqz deficiency June 272024 9:34am Breast cancer screening July 11 9:34am Cigarette nicotine dependenc e with nicotine-induced disorder July 11, 2025 9:34am COPD (chronic obstructive pulmonary dise ase) July 11, 2025 9:34am Cough July 11, 2025 9 :34am Essential hypertension July 11 9:34am GERD without esophagitis July 11, 2 025 9:34am Recto-vaginal fistula July 11, 2025 9:34am Screening for lung cancer July 11, 2025 9:34am Type 2 diabetes mellitus wit h chronic kidney disease, without long-term cur July 11, 2025 9:34am Chief Complaint Admit Date Follow up TBH/In Pt/Consult May 18, 2025 10:09am 1M July 11, 2025 9 :34am Z12.31 August 07, 2025 1:05pm Reason for Visit Admit Date Abnormal CT of the abdomen May 18, 2025 10:09am Diarrhea May 18, 2025 10 :09am Nausea & vomiting May 18, 2025 10 :09am Recto-vaginal fistula May 18, 2025 10:09am Sikms-9-igeqwbnzvpo deficiency June 272024 9:34am Breast cancer screening declined July 11, 2025 9:34am Cigarette nicotine dependenc e with nicotine-induced disorder July 11, 2025 9:34am COPD (chronic obstructive pulmonary dise ase) July 11, 2025 9:34am Cough July 11, 2025 9 :34am Essential hypertension July 11 9:34am GERD without esophagitis July 11, 2 025 9:34am Lung cancer screening declined by quinton valencia July 11, 2025 9:34am Recto-vaginal fistula July 11, 2025 9:34am Type 2 diabetes mellitus wit h chronic kidney disease, without long-term cur July 11, 2025 9:34am Additional Source Comments INFORMATION SOURCE (unrecogn ized section and content) DATE CREATED AUTHOR 03/22/2018 [facility] DATE CREATED AUTHOR AUTHOR'S ORGANIZ ATION 04/18/2018 [facility] [employer] DATE CREATED AUTHOR AUTHOR'S ORGANIZ ATION 04/18/2018 [facility] DATE CREATED AUTHOR AUTHOR'S ORGANIZ ATION 08/21/2021 [facility] DATE CREATED AUTHOR AUTHOR'S ORGANIZ ATION 10/06/2022 [facility] DATE CREATED AUTHOR AUTHOR'S ORGANIZ ATION 10/07/2022 [employer] DATE CREATED AUTHOR AUTHOR'S ORGANIZ ATION 01/21/2023 [facility] DATE CREATED AUTHOR AUTHOR'S ORGANIZ ATION 01/18/2024 [employer] DATE CREATED AUTHOR AUTHOR'S ORGANIZ ATION 07/22/2024 [facility] DATE CREATED AUTHOR AUTHOR'S ORGANIZ ATION 05/10/2025 [facility] DATE CREATED AUTHOR AUTHOR'S ORGANIZ ATION 05/22/2025 [facility] DATE CREATED AUTHOR AUTHOR'S ORGANIZ ATION 08/08/2025 [facility] Reason for Visit (unrecogniz ed section and content) ReasonOnset DateCommentsMed [id number] RefillReason CommentsIngrown Fbpbdhe28 yo 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 Bothersome for about a month, denies drainage. PCP: Veronique Stratton LV 08/16/24, A1C: 6.0,BS: doesn't checkReasonOnset DateCommentsMed EzwhnpFdglekv20/07/2025Denial of MRIReason CommentsDM Foot CarePt is here today for diabetic foot careBS: Doesn't check A1C: 6.5Lv Dr. Deluca 01-04-2025SS: 8-8.5ReasonCommentsDiabetesReasonOnset Date CommentsNo Shows04/11/2025Recent History of No ShowsReasonCommentsConsult Colovaginal fistulaSaw GI next door and will be doing and EGD and colonoscopy. They sent her here for something but does not know why. She is having diarrhea. The GI doctor did say he could see the fistula . Had a CT scan.ReasonComments Hospital Follow-up Care Teams (unrecognized sec tion and content) Team MemberRelationshipSpecialtyStart DateEnd Date Stuart Deluca MD [address] [place] [phone] PCP - GeneralFamily Medicine03/17/23 Veronique Harris NP [address] [place] [address] PCP - [facility]03/27/24Team MemberRelationshipSpecialtyStart DateEnd Date Stuart Deluca MD [address] [place] [address] PCP - GeneralFamily Medicine03/17/23 Veronique Harris NP [address] [place] [address] PCP - [facility]03/27/24 Jany Saini, [facility] Social WorkerFamily Rugoratx08/29/ Marta Doll [employer] [address] [place], [place] [id number] [facility] Mevzpbwo07/31/24Team MemberRelationshipSpecialty Start DateEnd Date Stuart Deluca MD [address] [place] [address] PCP - Generalmily Medicine03/17/23 Veronique Harris NP [address] [place] [address] PCP - [facility]03/27/24 Jany Saini, [facility] Social WorkerFamily Ltciqdnx53/29/ Marta Doll [employer] [address] [place] [address] Licensed Practical NurseFamily Gllvqeqp97/31/24Team MemberRelationshipSpecialty Start DateEnd Date Stuart Deluca MD [address] [place] [address] PCP - GeneralFamily Medicine03/17/23 Veronique Harris NP [address] [place] [address] PCP - [facility]03/27/24 Jb Valdez [facility]07/27/24Team MemberRelationshipSpecialtyStart DateEnd Date Stuart Deluca MD [address] [place] [address] PCP - [facility]03/17/23 Veronique Harris NP [address] [place] [address] PCP - [facility]03/27/24 Jb Valdez [facility]07/27/24Team MemberRelationshipSpecialtyStart DateEnd Date Stuart Deluca MD [address] [place] [address] PCP - [facility]03/17/23 Veronique Harris NP [address] [place] [address] PCP - [facility]03/27/[address] [facility]07/27/24Team MemberRelationshipSpecialtyStart DateEnd Date Stuart Deluca MD [address] [place] [address] PCP - [facility]03/17/23 Veronique Harris NP [address] [place] [address] PCP - [facility]03/27/[address] [facility]07/27/24Team MemberRelationshipSpecialtyStart DateEnd Date Stuart Deluca MD [address] [place] [address] PCP - [facility]03/17/23 Veronique Harris NP [address] [place] [address] PCP - [facility]03/27/24Team MemberRelationshipSpecialtyStart DateEnd Date Stuart Deluca MD [address] [place] [address] PCP - [facility]03/17/23 Veronique Harris NP [address] [place] [address] PCP - [facility]03/27/24Team MemberRelationshipSpecialtyStart DateEnd Date Stuart Deluca MD [address] [place] [address] PCP - [facility]03/17/23 Veronique Harris NP [address] [place] [address] PCP - [facility]03/27/24Te MemberRelationshipSpecialtyStart DateEnd Date Stuart Deluca MD [address] [place] [address] PCP - [facility]03/17/23 Veronique Harris NP [address] [place] [address] PCP - [facility]03/27/24 Jb Valdez [facility]07/27/24Team MemberRelationshipSpecialtyStart DateEnd Date Stuart Deluca MD [address] [place] [address] PCP - [facility]03/17/23 Veronique Harris NP [address] [place] [address] PCP - [facility]03/27/[address] [facility]07/27/24Team MemberRelationshipSpecialtyStart DateEnd Date Stuart Deluca MD [address] [place] [address] PCP - [facility]03/17/23 Veronique Harris NP [address] [place] [address] PCP - [facility]03/27/[address] [facility]07/27/24Team MemberRelationshipSpecialtyStart DateEnd Date Stuart Deluca MD [address] [place] [address] PCP - [facility]03/17/23 Veronique Harris NP [address] [place] [address] PCP - [facility]03/27/24 Jb Valdez [facility]07/27/24Team MemberRelationshipSpecialtyStart DateEnd Date Stuart Deluca MD [address] [place] [address] PCP - [facility]03/17/23 Veronique Harris NP [address] [place] [address] PCP - [facility]03/27/[address] [facility]07/27/24Team MemberRelationshipSpecialtyStart DateEnd Date Stuart Deluca MD [address] [place] [address] PCP - [facility]03/17/23 Veronique Harris NP [address] [place] [address] PCP - [facility]03/27/24 Jb Valdez [facility]07/27/24Team MemberRelationshipSpecialtyStart DateEnd Date Stuart Deluca MD [address] [place] [address] PCP - [facility]03/17/23 Veronique Harris NP [address] [place], [place] [address] PCP - [facility]03/27/[address] [facility]07/27/24Team MemberRelationshipSpecialtyStart DateEnd Date Stuart Deluca MD [address] [place] [address] PCP - [facility]03/17/23 Veronique Harris, ANNA [address] [place] [address] PCP - [facility]03/27/[address] [facility]07/27/24Team MemberRelationshipSpecialtyStart DateEnd Date Stuart Deluca MD [address] [place] [address] PCP - [facility]03/17/23 Veronique Harris NP [address] [place] [address] PCP - [facility]03/27/[address] [facility]07/27/24Team MemberRelationshipSpecialtyStart DateEnd Date Stuart Deluca MD [address] [place] [address] PCP - [facility]03/17/23 Veronique Harris NP [address] [place] [address] PCP - [facility]03/27/[address] [facility]07/27/24Team MemberRelationshipSpecialtyStart DateEnd Date Stuart Deluca MD [address] [place] [address] PCP - [facility]03/17/23 Veronique Harris NP [address] [place] [address] PCP - [facility]03/27/[address] [facility]07/27/24Team MemberRelationshipSpecialtyStart DateEnd Date Stuart Deluca MD [address] [place] [address] PCP - [facility]03/17/23 Veronique Harris NP [address] [place] [address] PCP - [facility]03/27/24 Jb Valdez [facility]07/27/24Team MemberRelationshipSpecialtyStart DateEnd Date Stuart Deluca MD [address] [place] [address] PCP - [facility]03/17/23 Veronique Harris NP [address] [place] [address] PCP - [facility]03/27/24 Jb Valdez [facility]07/27/24Team MemberRelationshipSpecialtyStart DateEnd Date Veronique Harris, AUTOMATIC LUMP MAKING MACHINE TENDER-LINSEED OIL BOILER PCP - [facility]07/20/24Team MemberRelationshipSpecialtyStart DateEnd Date Stuart Deluca MD [address] [place] [address] PCP - [facility]03/17/23 Veronique Harris NP [address] [place] [address] PCP - [facility]03/27/24 Jb Valdez MA [address] [place] [address] [facility]07/27/24Team MemberRelationshipSpecialtyStart DateEnd Date Stuart Deluca MD [address] [place] [address] PCP - [facility]03/17/23 Veronique Harris NP [address] [place] [address] PCP - [facility]03/27/24 Jb Valdez MA [address] [place] [address] [facility]07/27/24Team MemberRelationshipSpecialtyStart DateEnd Date Stuart Deluca MD [address] [place] [address] PCP - [facility]03/17/23 Veronique Harris NP [address] [place] [address] PCP - [facility]03/27/24 Jb Valdez MA [address] [place] [address] [facility]07/27/24Team MemberRelationshipSpecialtyStart DateEnd Date Stuart Deluca MD [address] [place] [address] [facility] Veronique Harris NP [address] [place] [address] PCP - [facility]03/27/24 Jb Valdez MA [address] [place] [address] [facility]07/27/24Team MemberRelationshipSpecialtyStart DateEnd Date Stuart Deluca MD [address] [place] [address] [facility]23 Veronique Harris NP [address] [place] [address] PCP - [facility]03/27/24 Jb Valdez MA [address] [place] [address] [facility]07/27/24Team MemberRelationshipSpecialtyStart DateEnd Date Stuart Deluca MD [address] [place] [address] PCP - [facility]03/17/23 Veronqiue Harris NP [address] [place] [address] PCP - [facility]03/27/24 Jb Valdez MA [address] [place] [address] [facility]07/27/24Team MemberRelationshipSpecialtyStart DateEnd Date Stuart Deluca MD [address] [place] [address] PCP - [facility]03/17/23 Veronique Harris NP [address] [place] [address] PCP - [facility]03/27/24 Jb Valdez MA [address] [place] [address] [facility]07/27/24Team MemberRelationshipSpecialtyStart DateEnd Date Stuart Deluca MD [address] [place] [address] PCP - [facility]03/17/23 Veronique Harris NP [address] [place] [address] PCP - [facility]03/27/24 Jb Valdez MA [address] [place] [address] [facility]07/27/24Team MemberRelationshipSpecialtyStart DateEnd Date Stuart Deluca MD [address] [place] [address] PCP - [facility]03/17/23 Veronique Harris NP [address] [place] [address] PCP - [facility]03/27/24 Jb Valdez MA [address] [place] [address] [facility]07/27/24Team MemberRelationshipSpecialtyStart DateEnd Date Stuart Deluca MD [address] [place] [address] PCP - [facility]03/17/23 Veronique Harris NP [address] [place] [address] PCP - [facility]03/27/24 Jb Valdez MA [address] [place] [address] [facility]07/27/24Team MemberRelationshipSpecialtyStart DateEnd Date Stuart Deluca MD [address] [place] [address] PCP - [facility]03/17/23 Veronique Harris NP [address] [place] [address] PCP - [facility]03/27/24 Jb Valdez MA [address] [place] [address] [facility]07/27/24Team MemberRelationshipSpecialtyStart DateEnd Date Sturat Deluca MD [address] [place] [address] PCP - [facility]03/17/23 Veronique Harris NP [address] [place] [address] PCP - [facility]03/27/24 Jb Valdez MA [address] [place] [address] [facility]07/27/24 Team Status: Active Member Role Status Juliana Mills MD Primary Care Provider Active Team Status: Inactive Member Role Status Juliana Mills MD Primary Care Provider Active Start: May 18, 2025 End: May 18atherine Michael Ko , DOAttending ProviderActiveStart: May 18, 2025 End: May 18, 2025Team MemberRelationshipSpecialtyStart DateEnd Date Stuart Deluca MD [address] [place] [address] PCP - [facility]03/17/23 Veronique Harris NP [address] [place] [address] PCP - [facility]03/27/24 Jb Valedz MA [address] [place] [address] [facility]07/27/24Team MemberRelationshipSpecialtyStart DateEnd Date Stuart Deluca MD [address] [place] [address] PCP - [facility]03/17/23 Veronique Harris NP [address] [place] [address] PCP - [facility]03/27/24 Jb Valdez [place] [address] [place] [address] [facility]07/27/24 Team Status: Active Member Role Status Dates Veronique Harris NP-C Primary Care Provider Active Team Status: Inactive Member Role Status Dates Veronique Harris NP-Andrzej Primary Care Provider Active Start: July 11, 2025 End: July 11, 2025Veronique Harris NP-CAttending ProviderActiveStart: July 11, 2025 End: July 11, 2025Team MemberRelationshipSpecialtyStart DateEnd Date Stuart Deluca MD PCP - [facility]03/17/23 Veronique Harris NP [address] [place] [address] PCP - [facility]03/27/24 Jany Saini, FEATHER EDGER [address] [place] [address] Social [facility]erW[facility] Epipjzlc89/29/ [place] LakeMarta rodriguez, AIR CREW SUPERVISOR [address] [place] [address] Licensed Practical NurseFascly Daffbhwu46/31/ Jb Valdez, [place] [address] [place] [address] Family Ymmhzrox30/31/248 Team Status: Active Member Role/Relationship Status Dates Veronique Harris SUPPLY PERSON-C Primary Care Provider Active Team Status: Inactive Member Role/Relationship Status Dates Dara Mills MD Primary Care Provider Active Start: May 18, 2025 End: May 18mart Ko , DOAttending ProviderActiveStart: May 18, 2025 End: May 18, 2025 Team Status: Inactive Member Role/Relationship Status Dates Veronique Harris , SUPPLY PERSON-C Primary Care Provider Active Start: July 11, 2025 End: July 11, 2025Lisa Josiane Harris , SUPPLY PERSON-CAttending ProviderActiveStart: July 11, 2025 End: July 11, 2025 Team Status: Inactive Member Role/Relationship Status Dates Veronique Harris , SUPPLY PERSON-C Primary Care Provider Active Start: August 07, 2025 End: August 07, 2025Lisa Josiane Harris , SUPPLY PERSON-CAttending ProviderActiveStart: August 07, 2025 End: August 07, 2025 Goals (unrecognized section and content) Goals may [...] BE BASED ON THE PRIMARY CLINICAL RECORDS. [employer] provides no warranty or guarantee of the accuracy or completeness of information in this document.
[2025-09-07 13:04] LABS: Hemoglobin 15.2 g/dL (12.0-16.0)
[2025-09-07 13:20] LABS: Magnesium 1.7 mg/dL (1.8-2.4); Potassium 5.4 mmol/L (3.5-5.1)
[2025-09-07] MEDS: ALBUTEROL SULFATE 2.5 MG/3 ML VIAL NEB IH (13:33)
[2025-09-07 13:35] VITALS: PULSE 60; O2SAT 97
== END 2025-09-07 12:53 | disposition home or self-care (01) ==
LOC: CARD 12:53
PROVIDERS: PCP Nurse Practitioner; Visit Provider Nurse Practitioner
DX: J44.9 Chronic obstructive pulmonary disease, unspecified (principal); E83.42 Hypomagnesemia; E87.6 Hypokalemia
CPT/HCPCS: 36415; 83735; 84132; 85018; 94060; 94726; 94729